=== PATIENT | male | born 1950 | race Caucasian/White ===

== ENCOUNTER 2017-02-18 20:54 | Inpatient (IN) | payer OTHER, MEDICAID, MEDICARE ==
[~2017-02-18] VITALS: Ht 188 cm; Wt 101.4 kg
[~2017-02-18 20:54] MED LIST: CREON24 PO; LEVEMIR SQ; LISI10TA3 PO; METO25TA3 PO; NOVOLOGP2 SQ; PANT40TA3 PO; REST15CA PO
[2017-02-18 21:00] VITALS: BP 145/75; PULSE 108; RESP 18; TEMP 98.5
[2017-02-18 21:30] VITALS: BP 146/61; PULSE 104; RESP 18; O2SAT 98
[2017-02-18 22:05] VITALS: BP 143/51; PULSE 90; RESP 16; O2SAT 96
--- NOTE | 2017-02-18 22:29 | RADHPO ---
EXAM DATE/TIME: 02/18/2017 22:16 [facility] COMPARISON: CHEST SINGLE AP, October 25, 2016, 8:28. INDICATIONS : Fever. Short of breath. MEDICAL HISTORY : Diabetes mellitus type II. SURGICAL HISTORY : None. ENCOUNTER: Initial ACUITY: 1 day PAIN SCORE: Non-responsive. LOCATION: Bilateral chest FINDINGS: A single view of the chest demonstrates the lungs to be symmetrically aerated without evidence of mas s, infiltrate or effusion. The cardiomediastinal contours are unremarkable. Osseous structures are intact. CONCLUSION: No acute disease. Elvin Singleton MD on February 18, 2017 at 22:27 Board Certified Radiologist. This report was verified electronically.
[2017-02-18 22:37] LABS: BLOOD GAS BASE EXCESS 3.8 mmol/L (-2-2); BLOOD GAS CARBOXYHEMOGLOBIN 1.8 % (0-4); BLOOD GAS HCO3 27 mmol/L (22-26); BLOOD GAS METHEMOGLOBIN 1.1 % (0-2); BLOOD GAS O2 HGB SATURATION 93 % (90-100); BLOOD GAS OXYGEN CONTENT 17.2 Vol % (12.0-20.0); BLOOD GAS PCO2 39 mmHG (38-42); BLOOD GAS PO2 72 mmHG (61-120); BLOOD GAS TOTAL HGB 13.2 G/DL (12.0-16.0); CRITICAL VALUE NO; DRAW SITE RT RADIAL; FIO2 21 %; NUMBER OF ARTERIAL PUNCTURES 1; STAT YES; TEMP CORR TO 98.6; ULNAR PULSE Y
--- NOTE | 2017-02-18 22:45 | PD ---
HPI Chief Complaint: Altered Mental Status Time Seen by Provider: 22:06 Travel History International Travel<30 days: No Contact w/Intl Traveler<30days: No Traveled to known affect area: No History of Present Illness HPI The patient is a 66-year-old male with a history of insulin-dependent diabetes mellitus, neuropathy, arthritis who was found in a recliner laying in his yard where he lives alone at home. He had apparently been in this recliner for 3 days and unable to crawl or walk or call for help. The patient was confused and lethargic. He denies any trauma, headache or loss of consciousness or fall. He had a similar episode in September of last year. He has a history of chronic diarrhea and has a colostomy bag. The colostomy bag was off and the patient caked with feces. He denies any chest pain, cough, fever or chills. His Accu-Chek was 382. PFSH Past Medical History Arthritis: Yes Blood Disorders: No Anxiety: No Depression: No Heart Rhythm Problems: Yes (PT IN AFIB AT ADMIT) Cancer: No Cardiovascular Problems: No (PT DENIES HX AFIB) High Cholesterol: No Cerebrovascular Accident: No Diabetes: Yes Diminished Hearing: No Endocrine: Yes Genitourinary: No Hypertension: Yes Immune Disorder: No Musculoskeletal: Yes (ARTHRITIS) Neurologic: Yes (NEUROPATHY BILAT LE) Psychiatric: No Reproductive: No Respiratory: No Immunizations Current: No Migraines: No Seizures: No Thyroid Disease: No Past Surgical History Abdominal Surgery: No AICD: No Cardiac Surgery: No Ear Surgery: No Endocrine Surgery: No Eye Surgery: No Genitourinary Surgery: No Gynecologic Surgery: No Joint Replacement: No Oral Surgery: No Pacemaker: No Thoracic Surgery: No Tonsillectomy: Yes Other Surgery: Yes Social History Alcohol Use: No Tobacco Use: No Substance Use: No Allergies-Medications (Allergen,Severity, Reaction): Coded Allergies: Flu Vaccine (Verified Allergy, Severe, Anaphylaxis, 02/19/17) Reported Meds & Prescriptions Reported Meds & Active Scripts Active Novolog Inj (Insulin Aspart) 1,000 Unit/10 Ml Vial 1-9 Units SQ ACHS Max dose at bedtime:( )units; sugars less than 70,(0)units; sugars 150-199,(1) unit; sugars 200-249,(3) units; sugars 250-299,(5) units; sugars 300-349,(7) units; sugars greater than 349,(9) units Levemir Inj (Insulin Detemir) 1,000 unit/ 10 ML Vial 12 Units SQ BID 30 Days Restoril (Temazepam) 15 Mg Cap 15 Mg PO HS PRN Pantoprazole (Pantoprazole Sodium) 40 Mg Tab 40 Mg PO DAILY 30 Days Creon (Amylase/Lipase/Protease) 24,000-76,000-120,000 Units Cap 2 Cap PO TID 30 Days Metoprolol Tartrate 25 Mg Tab 25 Mg PO Q12HR Lisinopril 10 Mg Tab 10 Mg PO DAILY Review of Systems ROS Limitations: Poor Historian Except as stated in HPI: all other systems reviewed are Neg Physical Exam Exam Limitations: Poor Historian Narrative GENERAL: The patient is confused and thinks he is at [facility] in [facility]. He will answer questions quickly and usually appropriately. Except for a pulse rate of 109 the vital signs are normal. The patient is moderately to severely dehydrated. He smells strongly of feces. I cannot smell acetone on his breath. SKIN: Focused skin assessment warm/dry. The skin is macerated over the scrotum , back, posterior thighs. The right foot has several chronic ulcers, one is on the plantar surface and the other the dorsal surface at the base of the great toe. The left ankle has a small ulcer that appears chronic HEAD: Atraumatic. Normocephalic. EYES: Pupils equal and round. No scleral icterus. No injection or drainage. ENT: No nasal bleeding or discharge. Mucous membranes pink and moist. NECK: Trachea midline. No JVD. CARDIOVASCULAR: Regular rate and rhythm. No murmur appreciated. RESPIRATORY: No accessory muscle use. Clear to auscultation. Breath sounds equal bilaterally. GASTROINTESTINAL: Abdomen soft, non-tender, nondistended. Hepatic and splenic margins not palpable. MUSCULOSKELETAL: No obvious deformities. No clubbing. No cyanosis. There is 3 + pitting edema on both lower extremities as well as the scrotum. NEUROLOGICAL: Awake and alert. No obvious cranial nerve deficits. Motor grossly within normal limits. Normal speech. PSYCHIATRIC: Appropriate mood and affect; insight and judgment normal. Data Data Last Documented VS Vital Signs Date Time Temp Pulse Resp B/P Pulse Ox O2 Delivery O2 Flow Rate FiO2 02/18/17 23:50 96 16 144/69 Room Air 02/18/17 23:00 96 02/18/17 21:00 98.5 Orders Complete Blood Count With Diff (02/18/17 22:06) Comprehensive Metabolic Panel (02/18/17 22:06) Creatine Kinase (Cpk) (02/18/17 22:06) Troponin I (02/18/17 22:06) Arterial Blood Gas (Abg) (02/18/17 22:06) Blood Culture (02/18/17 22:06) Lipase (02/18/17 22:06) Urinalysis - C+S If Indicated (02/18/17 22:06) Magnesium (Mg) (02/18/17 22:06) Thyroid Stimulating Hormone (02/18/17 22:06) C Diff Toxin Pcr (02/18/17 22:06) Lactic Acid (02/18/17 22:06) Chest, Single Ap (02/18/17 ) Urinary Catheter Insert/Apply (02/18/17 22:06) Giardia Antigen (Stool) (02/18/17 22:06) Enteric Path (Stool) (02/18/17 22:06) B-Type Natriuretic Peptide (02/18/17 22:16) Sodium Chlor 0.9% 1000 Ml Inj (Ns 1000 M (02/18/17 22:30) Ammonia (02/18/17 22:33) Beta Hydroxybutyrate (Acetone) (02/18/17 22:06) Insulin Human Regular Inj (Novolin R Inj (02/18/17 23:00) Insulin Human Regular Inj (Novolin R Inj (02/19/17 00:00) Ct Brain W/O Iv Contrast(Rout) (02/19/17 22:06) Ct Abd/Pel W Iv Contrast(Rout) (02/19/17 22:06) Vancomycin Inj (Vancomycin Inj) (02/19/17 00:15) Piperacil-Tazo 4.5 Gm Premix (Zosyn 4.5 (02/19/17 00:15) Admit To Inpatient (02/19/17 ) Vital Signs (Adult) Q4H (02/19/17 00:09) Activity Oob With Assistance (02/19/17 00:09) Sodium Chloride 0.9% Flush (Ns Flush) (02/19/17 00:15) Sodium Chloride 0.9% Flush (Ns Flush) (02/19/17 09:00) Bisacodyl Supp (Dulcolax Supp) (02/19/17 00:15) Sennosides (Senokot) (02/19/17 00:15) Basic Metabolic Panel (Bmp) (02/20/17 06:00) Complete Blood Count With Diff (02/20/17 06:00) Pt Request For Service (02/19/17 00:09) Case Management Consult (02/19/17 00:09) Heparin Inj (Heparin Inj) (02/19/17 09:00) Scd Bilateral/Knee High KEN.BID (02/19/17 00:09) Naloxone Inj (Narcan Inj) (02/19/17 00:15) Inpatient Certification (02/19/17 ) Intake + Output KEN.QSHIFT (02/19/17 00:09) Admit Order (Ed Use Only) (02/19/17 00:13) Insulin Aspart Supplemtl Scale (Novolog (02/19/17 07:00) Piperacil-Tazo 4.5 Gm Premix (Zosyn 4.5 (02/19/17 08:00) Vancomycin Consult Pharmacy (Vancomycin (02/19/17 00:15) Labs Laboratory Tests Test 02/18/17 02/18/17 02/18/17 22:25 22:35 22:40 Blood Gas Puncture Site RT RADIAL Blood Gas Patient Temperature 98.6 Blood Gas HCO3 27 mmol/L Blood Gas Base Excess 3.8 mmol/L Blood Gas Oxygen Saturation 93 % Arterial Blood pH 7.47 Arterial Blood Partial 39 mmHG Pressure CO2 Arterial Blood Partial 72 mmHG Pressure O2 Arterial Blood Oxygen Content 17.2 Vol % Arterial Blood 1.8 % Carboxyhemoglobin Arterial Blood Methemoglobin 1.1 % Blood Gas Hemoglobin 13.2 G/DL Blood Gas Inspired Oxygen 21 % White Blood Count 24.5 TH/MM3 Red Blood Count 4.79 MIL/MM3 Hemoglobin 13.6 GM/DL Hematocrit 42.4 % Mean Corpuscular Volume 88.5 FL Mean Corpuscular Hemoglobin 28.5 PG Mean Corpuscular Hemoglobin 32.2 % Concent Red Cell Distribution Width 14.1 % Platelet Count 248 TH/MM3 Mean Platelet Volume 9.0 FL Neutrophils (%) (Auto) 87.7 % Lymphocytes (%) (Auto) 3.2 % Monocytes (%) (Auto) 8.0 % Eosinophils (%) (Auto) 0.0 % Basophils (%) (Auto) 1.1 % Neutrophils # (Auto) 21.4 TH/MM3 Lymphocytes # (Auto) 0.8 TH/MM3 Monocytes # (Auto) 2.0 TH/MM3 Eosinophils # (Auto) 0.0 TH/MM3 Basophils # (Auto) 0.3 TH/MM3 CBC Comment AUTO DIFF Differential Total Cells 100 Counted Neutrophils % (Manual) 88 % Band Neutrophils % 4 % Lymphocytes % 3 % Monocytes % 5 % Neutrophils # (Manual) 22.5 TH/MM3 Differential Comment FINAL DIFF MANUAL Platelet Estimate NORMAL Platelet Morphology Comment NORMAL Red Cell Morphology Comment NORMAL Sodium Level 143 MEQ/L Potassium Level 3.6 MEQ/L Chloride Level 104 MEQ/L Carbon Dioxide Level 28.5 MEQ/L Anion Gap 11 MEQ/L Blood Urea Nitrogen 51 MG/DL Creatinine 1.20 MG/DL Estimat Glomerular Filtration 61 ML/MIN Rate Random Glucose 413 MG/DL Calcium Level 9.5 MG/DL Magnesium Level 2.4 MG/DL Total Bilirubin 0.6 MG/DL Aspartate Amino Transf 17 U/L (AST/SGOT) Alanine Aminotransferase 22 U/L (ALT/SGPT) Alkaline Phosphatase 81 U/L Total Creatine Kinase 146 U/L Troponin I LESS THAN 0.02 NG/ML B-Type Natriuretic Peptide 37 PG/ML Total Protein 7.2 GM/DL Albumin 2.2 GM/DL Lipase 55 U/L Thyroid Stimulating Hormone 1.450 uIU/ML 3rd Gen B-Hydroxybutyrate 1.19 MMOL/L Lactic Acid Level 1.8 mmol/L Ammonia 14 MCMOL/L [facility] Medical Decision Making Medical Screen Exam Complete: Yes Emergency Medical Condition: Yes Medical Record Reviewed: Yes Differential Diagnosis Sepsis, encephalopathy, severe dehydration, electrolyte disorder, edema from hypoalbuminemia, edema from congestive heart failure hyperglycemia, hypoglycemia , Tony's gangrene, cellulitis Narrative Course The patient is clinically stable. A CAT scan is been ordered, results are not back yet. The patient is admitted to Dr. Deleon of the [facility] service. Impression: Sepsis, dehydration, electrolyte disorder Procedures Procedure Narrative The patient's penis is retracted into the swollen scrotum making catheterization impossible. Sepsis Criteria SIRS Criteria (2 or more): Heart rate over 90, WBC > 46537, < 4000 or > 10% bands Diagnosis Primary Impression: Dehydration Additional Impressions: Cellulitis, scrotum Hypokalemia Admitting Information Admitting Physician Requests: Admit Dipesh Landin MD Feb 18, 2017 22:45
[2017-02-18] MEDS: SODIUM CHLOR 0.9% 1000 ML INJ 1,000 ML IV SCH ×2 (22:51→23:35)
[2017-02-18 23:00] VITALS: BP 149/84; PULSE 101; RESP 17; O2SAT 96
[2017-02-18] MEDS ORDERED: INSULIN HUMAN REGULAR 1,000 UNITS/10 ML VIAL IV PUSH ONE (23:00)
[2017-02-18 23:01] LABS: AUTOMATED NEUTROPHIL # 21.4 TH/MM3 (1.8-7.7); BASOPHIL # 0.3 TH/MM3 (0-0.2); BASOPHIL % 1.1 % (0.0-2.0); HEMATOCRIT 42.4 % (39.0-51.0); LYMPH % 3.2 % (9.0-44.0); LYMPHOCYTE # 0.8 TH/MM3 (1.0-4.8); MEAN CELL VOLUME 88.5 FL (80.0-100.0); MEAN CORPUSCULAR HEMOGLOBIN 28.5 PG (27.0-34.0); MEAN CORPUSCULAR HGB CONC 32.2 % (32.0-36.0); NEUT % 87.7 % (16.0-70.0); PLATELET COUNT 248 TH/MM3 (150-450); RED BLOOD COUNT 4.79 MIL/MM3 (4.50-5.90); RED CELL DISTRIBUTION WIDTH 14.1 % (11.6-17.2); WHITE BLOOD COUNT 24.5 TH/MM3 (4.0-11.0)
[2017-02-18 23:04] LABS: CHLORIDE 104 MEQ/L (98-107); POTASSIUM 3.6 MEQ/L (3.5-5.1); SODIUM (NA) 143 MEQ/L (136-145)
[2017-02-18 23:05] LABS: HEMO FLAGS AUTO DIFF
[2017-02-18 23:08] LABS: ANION GAP 11 MEQ/L (5-15); BICARBONATE 28.5 MEQ/L (21.0-32.0)
[2017-02-18 23:27] LABS: ALKALINE PHOSPHATASE 81 U/L (45-117); ALT (GPT) 22 U/L (12-78); AST (GOT) 17 U/L (15-37); BLOOD UREA NITROGEN 51 MG/DL (7-18); CREATINE KINASE 146 U/L (39-308); GLOMERULAR FILTRATION RATE 61 ML/MIN (>89); MAGNESIUM 2.4 MG/DL (1.5-2.5); TOTAL BILIRUBIN ADULT 0.6 MG/DL (0.2-1.0)
[2017-02-18 23:36] LABS: BETA-HYDROXYBUTYRATE 1.19 MMOL/L (0.00-0.39)
[2017-02-18 23:47] LABS: BANDS 4 % (0-6); NEUTROPHIL # MANUAL DIFF 22.5 TH/MM3 (1.8-7.7); PLATELET ESTIMATE SMEAR NORMAL (NORMAL); PLATELET MORPHOLOGY NORMAL (NORMAL); POLYS (SEG NEUTROPHILS) 88 % (16-70); SCAN/DIFF FINAL DIFF MANUAL; WBC DIFF SAMPLE 100
[2017-02-18 23:50] VITALS: BP 144/69; PULSE 96; RESP 16
[2017-02-19] VITALS (15 sets, daily range): BP systolic 113–169; BP diastolic 40–84; PULSE 84–106; RESP 16–22; TEMP 98.5–101.3; O2SAT 94–100
[2017-02-19] MEDS ORDERED: INSULIN HUMAN REGULAR 1,000 UNITS/10 ML VIAL IV PUSH ONE
[2017-02-19] MEDS ORDERED: SENNOSIDES 8.6 MG TAB PO PRN ×2 (00:15→15:00)
[2017-02-19] MEDS ORDERED: NALOXONE HCL 0.4 MG/ML AMP IV PRN (00:15)
[2017-02-19] MEDS ORDERED: PIPERACIL-TAZO 4.5 GM PREMIX 100 ML IV ONE (00:15)
[2017-02-19] MEDS ORDERED: BISACODYL 10 MG SUPP RECTAL PRN (00:15)
[2017-02-19] MEDS ORDERED: Vancomycin Consult Pharmacy 1 EA OTHER SCH (00:15)
[2017-02-19] MEDS ORDERED: SODIUM CHLORIDE 0.9% FLUSH 10 ML FLUSH IV FLUSH PRN ×2 (00:15→15:00)
[2017-02-19] MEDS ORDERED: VANCOMYCIN INJ 1,750 MG in SODIUM CHLORID 0.9% 500 ML INJ 500 ML IV ONE (00:15)
[2017-02-19] MEDS ORDERED: IOHEXOL 350 MG/ML 10 ML VIAL (for RAD DIAG) IV ONE (00:44)
--- NOTE | 2017-02-19 01:05 | RADHPO ---
EXAM DATE/TIME: 02/19/2017 00:30 [facility] COMPARISON: No previous studies available for comparison. INDICATIONS : Altered mental status. RADIATION DOSE: 62.09 CTDIvol (mGy) MEDICAL HISTORY : Diabetes mellitus type 2. SURGICAL HISTORY : None. ENCOUNTER: Initial ACUITY: 1 day PAIN SCALE: 0/10 LOCATION: cranial TECHNIQUE: Multiple contiguous axial images were obtained of the head. Using automated exposure control and adj ustment of the mA and/or kV according to patient size, radiation dose was kept as low as reasonably a chievable to obtain optimal diagnostic quality images. FINDINGS: CEREBRUM: The ventricles are normal for age. No evidence of midline shift, mass lesion, hemorrhage or acute in farction. No extra-axial fluid collections are seen. POSTERIOR FOSSA: The cerebellum and brainstem are intact. The 4th ventricle is midline. The cerebellopontine angle i s unremarkable. EXTRACRANIAL: The visualized portion of the orbits is intact. SKULL: The calvaria is intact. No evidence of skull fracture. CONCLUSION: 1. No acute findings. No significant change from September 2016. Jermain Minaya MD on February 19, 2017 at 0:57 Board Certified Radiologist. This report was verified electronically.
--- NOTE | 2017-02-19 01:26 | RADHPO ---
EXAM DATE/TIME: 02/19/2017 00:36 [facility] COMPARISON: CT ABDOMEN & PELVIS W CONTRAST, October 11, 2016, 23:00. INDICATIONS : Abdominal pain. IV CONTRAST: 100 cc Omnipaque 350 (iohexol) IV ORAL CONTRAST: No oral contrast ingested. RADIATION DOSE: 18.58 CTDIvol (mGy) MEDICAL HISTORY : Diabetes mellitus type 2. SURGICAL HISTORY : None. ENCOUNTER: Initial ACUITY: 1 day PAIN SCALE: 5/10 LOCATION: Bilateral Abdomen and pelvis TECHNIQUE: Volumetric scanning of the abdomen and pelvis was performed. Using automated exposure control and ad justment of the mA and/or kV according to patient size, radiation dose was kept as low as reasonably achievable to obtain optimal diagnostic quality images. FINDINGS: Compare September 2016. There is extensive subcutaneous air within the scrotum associated with scrotal wall thickening and bilateral hydroceles. Abnormal locules of air extend to the perineal region ante riorly and extend into the inguinal region bilaterally as well, right greater than left. 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 There is a previous left lower quadrant colostomy. Rectal pouch is distended to about 8.[address] Bladder unremarkable. Lung bases demonstrate minimal atelectasis. No acute findings in the liver, spleen, adrenals, kidneys or pancreas. No free fluid or free intraperitoneal air. CONCLUSION: #1. 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 #2. Left lower quadrant colostomy. Fluid distention of blind-ending rectal pouch to 8.6 cm. Jermain Minaya MD on February 19, 2017 at 1:17 Board Certified Radiologist. This report was verified electronically.
[2017-02-19] MEDS ORDERED: INSULIN ASPART SUPPLEMENTAL SCALE SQ SCH (07:00)
[2017-02-19] MEDS: PIPERACIL-TAZO 4.5 GM PREMIX 100 ML IV SCH ×2 (08:00→16:00)
--- NOTE | 2017-02-19 08:48 | HHI.HP ---
[facility] Primary Care Physician Too Morin MD Admission Diagnosis sepsis, dehydration Diagnoses: (1) Sepsis Diagnosis: Principal (2) Fourniers gangrene Diagnosis: Principal (3) Altered mental status Diagnosis: Principal (4) Leucocytosis Diagnosis: Principal (5) Diabetes type 1, uncontrolled Diagnosis: Principal (6) Acute prerenal azotemia Diagnosis: Principal (7) Atrial fibrillation Diagnosis: Secondary Chief Complaint: Patient sent here by neighbors Travel History International Travel<30 Days: No Contact w/Intl Traveler <30 Da: No Traveled to Known Affected Are: No Sepsis Criteria SIRS Criteria (2 or more): Heart rate over 90, WBC > 68204, < 4000 or > 10% bands Sepsis Criteria (SIRS+source): Infect source susp/known Severe Sepsis (+one): Acute Oliguria/Renal Failure History of Present Illness 66 year-old male with rather complex medical history with atrial fibrillation, diabetes, chronic lower extremity wounds, 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 The patient is unable to give any accurate information due to mentation. Information taken from medical records, nursing staff, documentation. It was indicated by ER documentation that the patient was found in a recliner laying in his yard. He lives at home alone. It was indicated that patient had been in a recliner for 3 days and unable to crawl or walk. It is indicated that the colostomy bag was off the patient and he was reportedly covered in feces. Patient indicates that his neighbors called the hospital and he was brought here for evaluation. Patient critically ill on presentation with significant findings. Workup in emergency department did indicate significant sepsis with leukocytosis, tachycardia, significant lower extremity swelling, scrotal swelling with granulation and cellulitis, altered mentation. CT scan was done of the abdomen and pelvis which was reviewed by Dr. Christensen first thing this morning. 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 Emergent phone call was placed to the on-call urologist. After discussing with the urologist, plans for stat transfer to the main hospital for emergent surgery. Patient has been started on empiric antibiotics include vancomycin, Zosyn. Patient will require ICU admission post surgery for continued management until stabilized. Review of Systems ROS Limitations: Clinical Condition, Altered Mental Status Past Family Social History Past Medical History Information taken from medical records due to patient's mental capacity Diabetes mellitus. 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 Arthritis. Hypertension Atrial fibrillation History of megacolon Past Surgical History Information taken from medical records due to patient's mental capacity Patient had right second and fifth toe amputation, and left second toe amputation. Tonsillectomy. Oral surgery. Colostomy Reported Medications Reported Meds & Active Scripts Active Novolog Inj (Insulin Aspart) 1,000 Unit/10 Ml Vial 1-9 Units SQ ACHS Max dose at bedtime:( )units; sugars less than 70,(0)units; sugars 150-199,(1) unit; sugars 200-249,(3) units; sugars 250-299,(5) units; sugars 300-349,(7) units; sugars greater than 349,(9) units Levemir Inj (Insulin Detemir) 1,000 unit/ 10 ML Vial 12 Units SQ BID 30 Days Restoril (Temazepam) 15 Mg Cap 15 Mg PO HS PRN Pantoprazole (Pantoprazole Sodium) 40 Mg Tab 40 Mg PO DAILY 30 Days Creon (Amylase/Lipase/Protease) 24,000-76,000-120,000 Units Cap 2 Cap PO TID 30 Days Metoprolol Tartrate 25 Mg Tab 25 Mg PO Q12HR Lisinopril 10 Mg Tab 10 Mg PO DAILY Allergies: Coded Allergies: Flu Vaccine (Verified Allergy, Severe, Anaphylaxis, 02/19/17) Family History Unable to obtain secondary to patient's mentation Social History Unable to obtain secondary to patient's mentation Physical Exam Vital Signs Vital Signs Date Time Temp Pulse Resp B/P Pulse Ox O2 Delivery O2 Flow Rate FiO2 02/19/17 05:49 98.9 02/19/17 05:38 89 18 142/60 96 Room Air 02/19/17 05:38 Room Air 02/19/17 02:00 Room Air 02/19/17 02:00 93 16 137/60 94 Room Air 02/19/17 01:05 90 17 149/84 97 Room Air 02/18/17 23:50 96 16 144/69 Room Air 02/18/17 23:00 101 17 149/84 96 Room Air 02/18/17 22:40 Room Air 02/18/17 22:05 90 16 143/51 96 Room Air 02/18/17 21:30 104 18 146/61 98 Room Air 02/18/17 21:10 Room Air 02/18/17 21:00 98.5 108 18 145/75 Physical Exam GENERAL: Well-developed, well-nourished, critically ill patient. Awake but unable to answer questions appropriately HEENT: Head is normocephalic without any lesions or masses noted. Facial features are symmetric. Eyes: Pupils equal round reactive to light. Extraocular muscles are intact. Conjunctivae were clear. Oropharyngeal: Pharynx without any erythema edema. Tongue is midline without deviation. Buccal mucosa is moist without any masses or lesions NECK: Supple without any masses. Trachea midline no deviation. No JVD, no bruits are appreciated CARDIAC: Regular rhythm, regular rate. S1/S2 are heard. No murmurs gallops or rubs. LUNGS: Clear to auscultation bilaterally. No wheeze, rhonchi or rales. No use of accessory muscles on inspiration or expiration. ABDOMEN: Soft, nontender. Nondistended. Bowel sounds heard in all 4 quadrants. No organomegaly or masses. Negative rebound, negative guarding, colostomy noted EXTREMITIES: No edema, pulses are equal bilaterally. No cyanosis or clubbing. Patient does have obvious 2/3+ pain edema noted in the bilateral lower extremities. He does have multiple excoriations noted bilaterally. There is lines noted around his ankles with macerated wounds. Toes are very edematous with rather foul odor. NEUROLOGY: Patient with decreased mental status. Cranial nerves II through XII grossly intact. GENITOURINARY: Patient with massive/extensive swelling of his scrotum with granulation, pain on elevation and movement. Rather foul odor emulating from patient's groin area. No obvious openings, ulcerations or exudates Laboratory Laboratory Tests Test 02/18/17 02/18/17 02/18/17 22:25 22:35 22:40 Blood Gas Puncture Site RT RADIAL Blood Gas Patient Temperature 98.6 Blood Gas HCO3 27 Blood Gas Base Excess 3.8 Blood Gas Oxygen Saturation 93 Arterial Blood pH 7.47 Arterial Blood Partial 39 Pressure CO2 Arterial Blood Partial 72 Pressure O2 Arterial Blood Oxygen Content 17.2 Arterial Blood 1.8 Carboxyhemoglobin Arterial Blood Methemoglobin 1.1 Blood Gas Hemoglobin 13.2 Blood Gas Inspired Oxygen 21 White Blood Count 24.5 Red Blood Count 4.79 Hemoglobin 13.6 Hematocrit 42.4 Mean Corpuscular Volume 88.5 Mean Corpuscular Hemoglobin 28.5 Mean Corpuscular Hemoglobin 32.2 Concent Red Cell Distribution Width 14.1 Platelet Count 248 Mean Platelet Volume 9.0 Neutrophils (%) (Auto) 87.7 Lymphocytes (%) (Auto) 3.2 Monocytes (%) (Auto) 8.0 Eosinophils (%) (Auto) 0.0 Basophils (%) (Auto) 1.1 Neutrophils # (Auto) 21.4 Lymphocytes # (Auto) 0.8 Monocytes # (Auto) 2.0 Eosinophils # (Auto) 0.0 Basophils # (Auto) 0.3 CBC Comment AUTO DIFF Differential Total Cells 100 Counted Neutrophils % (Manual) 88 Band Neutrophils % 4 Lymphocytes % 3 Monocytes % 5 Neutrophils # (Manual) 22.5 Differential Comment FINAL DIFF MANUAL Platelet Estimate NORMAL Platelet Morphology Comment NORMAL Red Cell Morphology Comment NORMAL Sodium Level 143 Potassium Level 3.6 Chloride Level 104 Carbon Dioxide Level 28.5 Anion Gap 11 Blood Urea Nitrogen 51 Creatinine 1.20 Estimat Glomerular Filtration 61 Rate Random Glucose 413 Calcium Level 9.5 Magnesium Level 2.4 Total Bilirubin 0.6 Aspartate Amino Transf 17 (AST/SGOT) Alanine Aminotransferase 22 (ALT/SGPT) Alkaline Phosphatase 81 Total Creatine Kinase 146 Troponin I LESS THAN 0.02 B-Type Natriuretic Peptide 37 Total Protein 7.2 Albumin 2.2 Lipase 55 Thyroid Stimulating Hormone 1.450 3rd Gen B-Hydroxybutyrate 1.19 Lactic Acid Level 1.8 Ammonia 14 Date/Time Procedure Status Source Growth 02/18/17 22:40 Aerobic Blood Culture Received Blood Peripheral Pending 02/18/17 22:40 Anaerobic Blood Culture Received Blood Peripheral Pending Result Diagram: 02/18/[id number]/18/[id number] Imaging Last Impressions Head CT 02/19/172205 Signed Impressions: Service Date/Time: Sunday, February 19, 2017 00:30 - CONCLUSION: 1. No acute findings. No significant change from September 2016. Jermain Minaya MD Abdomen/Pelvis CT 02/19/172205 Signed Impressions: Service Date/Time: Sunday, February 19, 2017 00:36 - CONCLUSION: #1. 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 #2. Left lower quadrant colostomy. Fluid distention of blind-ending rectal pouch to 8.6 cm. Jermain Minaya MD Chest X-Ray 02/18/17 0000 Signed Impressions: Service Date/Time: Saturday, February 18, 2017 22:16 - CONCLUSION: No acute disease. Elvin Singleton MD Septic Shock Reassessment Heart: Irregular Lungs: Clear Skin: Warm, Moist Peripheral Pulses: Bounding Right Radial Bounding Left Radial Capillary Refill: Sluggish, >2 seconds Assessment and Plan Assessment and Plan Sepsis: Patient presented with altered mental status, leukocytosis, tachycardia, Tony's gangrene. Chest x-ray does not indicate any acute abnormality Unable to obtain urine due to significant edema to scrotum. Blood cultures are pending CT scan does indicate significant necrosis, Tony's gangrene Patient started on vancomycin, Zosyn for antibiotic coverage Tony's gangrene Patient started on empirical antibiotics Urologist was contacted urgently and notified of patient's condition Stat transfer to Main hospital for emergent surgery Altered mental status Multifactorial and likely secondary to sepsis, dehydration, uncontrolled diabetes CT scan of the brain does not indicate any acute abnormality Continue monitor mentation Leukocytosis with left shift Secondary to above infection Continue monitor CBC Acute prerenal azotemia BUN/creatinine ratio 42.5 Continue IV fluids Continue monitor renal function Avoid nephrotoxins Diabetes type 1, uncontrolled Beta hydroxybutyrate 1.19, anion gap 11 Accu-Cheks with sliding scale insulin Lower extremity edema with excoriations, macerations, cellulitis of bilateral feet Patient on empirical antibiotics Consult wound care physician for further evaluation and management Atrial fibrillation, rate controlled Continue telemetry Once patient more stable from sepsis, consider restarting metoprolol DVT prevention Subcutaneous heparin Written by Pascual Landin, acting as scribe for Dr. Christensen on 02/19/17 at 08:48. All or portions of this note were transcribed by scribe Pascual Landin. I, Dr. Pascual Christensen personally performed the history, physical exam, and medical decision making; and confirmed the accuracy of the information in the transcribed note. Critical care time of 45 minutes was spent in evaluation of the patient, review of imaging, and coordination of care, including contacting the urologist and arranging transfer to the main hospital for surgery. Authenticated by Dr. Pascual Christensen on 02/19/17 at 09:49. Physician Certification 2 Midnight Certification Type: Admission for Inpatient Services Order for Inpatient Services The services are ordered in accordance with Medicare regulations or non- Medicare payer requirements, as applicable. In the case of services not specified as inpatient-only, they are appropriately provided as inpatient services in accordance with the 2-midnight benchmark. Estimated LOS (days): 5 days is the estimated time the patient will need to remain in the hospital, assuming treatment plan goals are met and no additional complications. Post-Hospital Plan: Not yet determined Problem Qualifiers (1) Sepsis: Qualified Code: A41.9 - Sepsis, due to unspecified organism (2) Altered mental status: Qualified Code: R41.82 - Altered mental status, unspecified altered mental status type (3) Leucocytosis: Qualified Code: D72.829 - Leukocytosis, unspecified type (4) Diabetes type 1, uncontrolled: Qualified Code: E10.8 - Uncontrolled type 1 diabetes mellitus with complication Pascual Landin Feb 19, 2017 08:48 Pascual Christensen MD Feb 19, 2017 09:51
[2017-02-19] MEDS: HEPARIN SODIUM - SQ 10,000 UNITS/ML VIAL SQ SCH ×2 (09:00→21:45)
[2017-02-19] MEDS: SODIUM CHLORIDE 0.9% FLUSH 10 ML FLUSH IV FLUSH SCH ×2 (09:00→21:22)
[2017-02-19 10:27] LABS: APTT (PATIENT) 26.8 SEC (24.3-30.1); INTERNATIONAL NORMALIZED RATIO 1.2 RATIO; PROTHROMBIN TIME - PATIENT 13.4 SEC (9.8-11.6)
[2017-02-19] MEDS ORDERED: LACTATED RINGER'S 1000 ML INJ 1,000 ML IV ONE ×2 (12:00→22:45)
[2017-02-19] MEDS: VANCOMYCIN INJ 1,500 MG in SODIUM CHLORID 0.9% 500 ML INJ 500 ML IV SCH (12:00)
[2017-02-19] MEDS ORDERED: SODIUM CHLORID 0.9% 500 ML INJ 500 ML IV ONE (12:00)
[2017-02-19] MEDS ORDERED: PROPOFOL 200 MG/20 ML AMP IV ONE (12:00)
[2017-02-19] MEDS ORDERED: PHENYLEPH/NS 1000 MCG/10 ML SYR IV ONE (12:00)
[2017-02-19] MEDS ORDERED: NORMOSOL R INJ 1,000 ML IV ONE (12:00)
[2017-02-19] MEDS ORDERED: VANCOMYCIN HCL 1000 MG VIAL OTHER ONE (12:48)
--- NOTE | 2017-02-19 13:24 | PD.OP ---
Operative Report Date of Surgery: Feb 19, 2017 Preoperative Diagnosis: Necrotizing fasciitis/Tony's Gangrene involving scrotum, perineum, bilateral groin regions Postoperative Diagnosis: Same Procedure: Excision and debridement with washout of necrotizing fasciitis of the perineum, scrotum, and bilateral groin region. Anesthesia: KEILA Surgeon: Norbert Cassidy Research Methodologist(s): None Resident Surgeon: None Operation and Findings: 66-year-old male presented to [place] emergency room early this morning. Patient was diagnosed with Tony's gangrene/necrotizing fasciitis. CT scan revealed air in the region of the peroneal area as well as the scrotum and bilateral groin region. There was also tracking along the left buttock region. The patient was brought to the operating room emergently and placed in the dorsal lithotomy position. General endotracheal tube anesthesia was administered. He had received preprocedure antibiotics and was prepped and draped in usual sterile fashion. 15 blade was used to make the opening incision beginning in the scrotal region extending all the way down to the perineum near the rectum. The underlying tissues were into the planes on the patient's left side demonstrated evidence of necrosis. Purulent drainage was noted and cultures were sent. The left-sided perineum was resected until I could define bleeding tissue; working into the left groin region the fascia overlying the gracilis muscle was taken and debrided. All necrotic tissue in this region was debrided. Lateral to the perineum on the left side there was more necrotic tissue and this extended down near the buttock region. This tissue was then cleaned out. Turning my attention to the right aspect of the peroneal area this area was also debrided and up into the right groin section there was areas of necrotic tissue and this was also debrided. The right testicle was intact and was viable. The left testicle did require some debridement and once that was completed good viable tissue was noted. Once all the necrotic tissue was then debrided the area was washed out with antibiotic irrigation solution. Alfredo soaked in antibiotic solution was then packed into the groin with a left testicle being wrapped. The right testicle was still contained within its tunica vaginalis. A 16 Maori Ellis catheter had been inserted at the beginning of the procedure. The patient was stable throughout the entire procedure with blood loss proximate 250 cc. The patient was then transferred to the ICU. He'll need to go back in 48 hours for another washout. Norbert Cassidy DO Feb 19, 2017 13:24
[2017-02-19] MEDS ORDERED: MIDAZOLAM HCL 2 MG/2 ML VIAL ONE (13:42)
[2017-02-19] MEDS ORDERED: fentaNYL CITRATE 250 MCG/5 ML AMP ONE (13:43)
[2017-02-19] MEDS ORDERED: MORPHINE SULFATE 4 MG/ML INJ ONE (13:43)
[2017-02-19 14:02] LABS: AUTOMATED NEUTROPHIL # 13.8 TH/MM3 (1.8-7.7); BASOPHIL # 0.1 TH/MM3 (0-0.2); BASOPHIL % 0.8 % (0.0-2.0); HEMATOCRIT 38.4 % (39.0-51.0); HEMO FLAGS DIFF FINAL; LYMPH % 4.4 % (9.0-44.0); LYMPHOCYTE # 0.7 TH/MM3 (1.0-4.8); MEAN CELL VOLUME 89.1 FL (80.0-100.0); MEAN CORPUSCULAR HEMOGLOBIN 28.3 PG (27.0-34.0); MEAN CORPUSCULAR HGB CONC 31.7 % (32.0-36.0); MONO % 5.3 % (0.0-8.0); NEUT % 89.5 % (16.0-70.0); PLATELET COUNT 200 TH/MM3 (150-450); RED BLOOD COUNT 4.31 MIL/MM3 (4.50-5.90); RED CELL DISTRIBUTION WIDTH 14.6 % (11.6-17.2); WHITE BLOOD COUNT 15.5 TH/MM3 (4.0-11.0)
[2017-02-19 14:28] LABS: POTASSIUM 3.4 MEQ/L (3.5-5.1)
--- NOTE | 2017-02-19 14:35 | RADRPT ---
EXAM DATE/TIME: 02/19/2017 13:50 [facility] COMPARISON: CHEST SINGLE AP, February 18, 2017, 22:16. INDICATIONS : Endotracheal tube placement. MEDICAL HISTORY : None. SURGICAL HISTORY : None. ENCOUNTER: Subsequent ACUITY: 2 days PAIN SCORE: Non-responsive. LOCATION: chest FINDINGS: A single portable frontal view of the chest shows an intra-alveolar infiltrate throughout the white l lashaun with sparing of the apex. This is a new finding. Left lung is clear. Tip of the endotracheal tube 5 cm cephalad to the tashia. No effusions or cardiomegaly. A degenerative spine. CONCLUSION: New right lung infiltrate. Endotracheal tube. Khanh Mata Jr., MD on February 19, 2017 at 14:32 Board Certified Radiologist. This report was verified electronically.
--- NOTE | 2017-02-19 14:37 | PD.CONS ---
[facility] Service Critical Care Medicine Consult Requested By Dr. Cassidy Reason for Consult Critical care management Primary Care Physician Too Morin MD History of Present Illness 66 year-old male. Date of admission 02/19/2017. Date of consultation 02/19/2017. 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 The patient is unable to give any accurate information due to mentation. Information taken from medical records, nursing staff, documentation. It was indicated by ER documentation that the patient was found in a recliner laying in his yard duration up to 3 days and unable to crawl or walk. It is indicated that the colostomy bag was off the patient and he was reportedly covered in feces. He was noted to have a leukocytosis,, elevated blood sugar and altered mental status. CT abdomen status post revealed gas in the soft tissues of the perineum , scrotum and inguinal regions. Thickening of the scrotum noted. CT head showed no acute things. Chest x-ray negative. Urology was consulted today patient was taken back to the OR for debridement Patient has been started on empiric antibiotics include vancomycin, Zosyn. Blood cultures currently no growth to date. Review of Systems ROS Limitations: Intubated Past Family Social History Allergies: Coded Allergies: Flu Vaccine (Verified Allergy, Severe, Anaphylaxis, 02/19/17) Past Medical History Diabetes mellitus with neuropathy Hypertension Dyslipidemia Osteoarthritis Chronic pancreatitis New onset A. 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 Reported Medications Reported Meds & Active Scripts Active Novolog Inj (Insulin Aspart) 1,000 Unit/10 Ml Vial 1-9 Units SQ ACHS Max dose at bedtime:( )units; sugars less than 70,(0)units; sugars 150-199,(1) unit; sugars 200-249,(3) units; sugars 250-299,(5) units; sugars 300-349,(7) units; sugars greater than 349,(9) units Levemir Inj (Insulin Detemir) 1,000 unit/ 10 ML Vial 12 Units SQ BID 30 Days Restoril (Temazepam) 15 Mg Cap 15 Mg PO HS PRN Pantoprazole (Pantoprazole Sodium) 40 Mg Tab 40 Mg PO DAILY 30 Days Creon (Amylase/Lipase/Protease) 24,000-76,000-120,000 Units Cap 2 Cap PO TID 30 Days Metoprolol Tartrate 25 Mg Tab 25 Mg PO Q12HR Lisinopril 10 Mg Tab 10 Mg PO DAILY Active Ordered Medications Reviewed in EMR Family History Positive for diabetes Social History No history alcohol, tobacco or IV drug use Physical Exam Vital Signs Vital Signs Date Time Temp Pulse Resp B/P Pulse Ox O2 Delivery O2 Flow Rate FiO2 02/19/17 13:36 98 50 02/19/17 10:45 97 18 144/70 98 02/19/17 10:30 120 20 149/68 98 02/19/17 10:15 114 18 140/64 98 02/19/17 10:00 115 14 142/62 98 02/19/17 09:45 144 16 126/71 89 02/19/17 09:34 100.6 123 18 126/62 85 02/19/17 08:41 100 16 133/60 93 02/19/17 07:07 100.0 105 16 134/64 94 02/19/17 07:07 105 16 94 02/19/17 05:49 98.9 02/19/17 05:38 89 18 142/60 96 Room Air 02/19/17 05:38 Room Air 02/19/17 02:00 Room Air 02/19/17 02:00 93 16 137/60 94 Room Air 02/19/17 01:05 90 17 149/84 97 Room Air 02/18/17 23:50 96 16 144/69 Room Air 02/18/17 23:00 101 17 149/84 96 Room Air 02/18/17 22:40 Room Air 02/18/17 22:05 90 16 143/51 96 Room Air 02/18/17 21:30 104 18 146/61 98 Room Air 02/18/17 21:10 Room Air 02/18/17 21:00 98.5 108 18 145/75 Physical Exam GENERAL: 66 year old male, critically ill currently orotracheally intubated SKIN: Caudal/posterior Scrotum currently packed and elevated with no active drainage. Maceration of back, posterior thighs bilaterally. Right foot with circumferential ulcer around ankle, ulcerated plantar dorsal aspect around great toe. Left ankle with open ulceration HEAD: Atraumatic. Normocephalic. EYES: Pupils equal and round about 2 mm bilaterally and reactive. No scleral icterus. No injection or drainage. ENT: No nasal bleeding or discharge. Mucous membranes pink and moist. Oropharynx without erythema NECK: Trachea midline. No JVD. CARDIOVASCULAR: Tachycardic, RR. S1, S2. No S4. No murmur RESPIRATORY: No accessory muscle use. Clear to auscultation. Breath sounds equal bilaterally. GASTROINTESTINAL: Abdomen soft, non-tender, nondistended. Left lower quadrant ostomy pink and intact with stool. Periumbilical to suprapubic scarring from prior operation noted. Hypoactive bowel sounds are appreciated MUSCULOSKELETAL: Extremities 2+ lower extremity peripheral edema. No obvious deformities. NEUROLOGICAL: Currently sedated on the ventilator profile. Positive gag. Positive corneal reflex. Withdraws to pain in bilateral upper extremities. Laboratory Laboratory Tests Test 02/18/17 02/18/17 02/18/17 02/19/17 22:25 22:35 22:40 10:03 Blood Gas Puncture Site RT RADIAL Blood Gas Patient Temperature 98.6 Blood Gas HCO3 27 Blood Gas Base Excess 3.8 Blood Gas Oxygen Saturation 93 Arterial Blood pH 7.47 Arterial Blood Partial 39 Pressure CO2 Arterial Blood Partial 72 Pressure O2 Arterial Blood Oxygen Content 17.2 Arterial Blood 1.8 Carboxyhemoglobin Arterial Blood Methemoglobin 1.1 Blood Gas Hemoglobin 13.2 Blood Gas Inspired Oxygen 21 White Blood Count 24.5 Red Blood Count 4.79 Hemoglobin 13.6 Hematocrit 42.4 Mean Corpuscular Volume 88.5 Mean Corpuscular Hemoglobin 28.5 Mean Corpuscular Hemoglobin 32.2 Concent Red Cell Distribution Width 14.1 Platelet Count 248 Mean Platelet Volume 9.0 Neutrophils (%) (Auto) 87.7 Lymphocytes (%) (Auto) 3.2 Monocytes (%) (Auto) 8.0 Eosinophils (%) (Auto) 0.0 Basophils (%) (Auto) 1.1 Neutrophils # (Auto) 21.4 Lymphocytes # (Auto) 0.8 Monocytes # (Auto) 2.0 Eosinophils # (Auto) 0.0 Basophils # (Auto) 0.3 CBC Comment AUTO DIFF Differential Total Cells 100 Counted Neutrophils % (Manual) 88 Band Neutrophils % 4 Lymphocytes % 3 Monocytes % 5 Neutrophils # (Manual) 22.5 Differential Comment FINAL DIFF MANUAL Platelet Estimate NORMAL Platelet Morphology Comment NORMAL Red Cell Morphology Comment NORMAL Sodium Level 143 Potassium Level 3.6 Chloride Level 104 Carbon Dioxide Level 28.5 Anion Gap 11 Blood Urea Nitrogen 51 Creatinine 1.20 Estimat Glomerular Filtration 61 Rate Random Glucose 413 Calcium Level 9.5 Magnesium Level 2.4 Total Bilirubin 0.6 Aspartate Amino Transf 17 (AST/SGOT) Alanine Aminotransferase 22 (ALT/SGPT) Alkaline Phosphatase 81 Total Creatine Kinase 146 Troponin I LESS THAN 0.02 B-Type Natriuretic Peptide 37 Total Protein 7.2 Albumin 2.2 Lipase 55 Thyroid Stimulating Hormone 1.450 3rd Gen B-Hydroxybutyrate 1.19 Lactic Acid Level 1.8 Ammonia 14 Prothrombin Time 13.4 Prothromb Time International 1.2 Ratio Activated Partial 26.8 Thromboplast Time Blood Type A POSITIVE Antibody Screen NEGATIVE Test 02/19/17 02/19/17 02/19/17 10:15 12:06 13:46 Blood Type A POSITIVE Crossmatch Leukocyte-Reduced Red Blood Cells Blood Bank Comment White Blood Count 15.5 Red Blood Count 4.31 Hemoglobin 12.2 Hematocrit 38.4 Mean Corpuscular Volume 89.1 Mean Corpuscular Hemoglobin 28.3 Mean Corpuscular Hemoglobin 31.7 Concent Red Cell Distribution Width 14.6 Platelet Count 200 Mean Platelet Volume 8.3 Neutrophils (%) (Auto) 89.5 Lymphocytes (%) (Auto) 4.4 Monocytes (%) (Auto) 5.3 Eosinophils (%) (Auto) 0.0 Basophils (%) (Auto) 0.8 Neutrophils # (Auto) 13.8 Lymphocytes # (Auto) 0.7 Monocytes # (Auto) 0.8 Eosinophils # (Auto) 0.0 Basophils # (Auto) 0.1 CBC Comment DIFF FINAL Differential Comment Lactic Acid Level 2.2 Date/Time Procedure Status Source Growth 02/19/17 11:36 Gram Stain Received Wound Other Pending 02/19/17 11:36 Wound Culture Received Wound Other Pending 02/19/17 11:36 Fungal Smear Received Wound Other Pending 02/19/17 11:36 Fungal Culture Received Wound Other Pending 02/19/17 11:36 Acid Fast Stain Received Wound Other Pending 02/19/17 11:36 Mycobacterial Culture Received Wound Other Pending 02/18/17 22:40 Aerobic Blood Culture - Preliminary Resulted Blood Peripheral NO GROWTH IN 1 DAY 02/18/17 22:40 Anaerobic Blood Culture - Preliminary Resulted Blood Peripheral NO GROWTH IN 1 DAY Result Diagram: 02/19/17 1346 02/18/175 Imaging Last Impressions Head CT 02/19/172205 Signed Impressions: Service Date/Time: Sunday, February 19, 2017 00:30 - CONCLUSION: 1. No acute findings. No significant change from September 2016. Jermain Minaya MD Abdomen/Pelvis CT 02/19/172205 Signed Impressions: Service Date/Time: Sunday, February 19, 2017 00:36 - CONCLUSION: #1. 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 #2. Left lower quadrant colostomy. Fluid distention of blind-ending rectal pouch to 8.6 cm. Jermain Minaya MD Chest X-Ray 02/18/17 0000 Signed Impressions: Service Date/Time: Saturday, February 18, 2017 22:16 - CONCLUSION: No acute disease. Elvin Singleton MD Assessment and Plan Assessment and Plan Neuro/Psych: Diabetic neuropathy Insomnia Currently on versed/fentanyl drip for sedation/analgesia while intubated Goal RASS -2 Daily sedation vacation Holding home medication Restoril 15 mg night as needed for insomnia CT head 02/18 revealed no acute intracranial findings CV: History of hypertension History dyslipidemia Preop A. fib/no history currently normal sinus rhythm Currently on normal saline at 150 cc an hour Not requiring and hypertensive and/or vasopressors at the present time Holding home medication of metoprolol 25 mg twice a day lisinopril 10 mg daily for hypertension. Resume when clinically indicated Echocardiogram 2013 revealed EF 50-55%. No regional wall motion abnormality. Mildly dilated left atrium TSH within normal limits. Initial troponin negative. 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 Protonix for GI prophylaxis/home medication Colace/as needed Senokot for bowel regimen Ostomy cares Resume Creon 2 tablets 3 times a day : Postop day #0 Excision and debridement with washout of necrotizing fasciitis of the perineum, scrotum, and bilateral groin region secondary to Necrotizing fasciitis/Tony's Gangrene involving scrotum, perineum, bilateral groin regions EBL 250. 900 cc urine output. LR 1900 provided. Plan to return to the OR on Friday for further exploration Endo: Diabetes mellitus Home medications Levemir 12 units twice a day insulin scale insulin. Currently on sliding scale insulin with Accu-Cheks to maintain euglycemia every 4 hours Renal: Monitor urine output Accurate I's and O's Repeat BMP in a.m. Heme: Normocytic anemia Leukocytosis Monitor CBC daily. Follow trends ID: Day #2 vancomycin, clindamycin and Zosyn. Blood cultures 23 02/18 pending Wound culture 02/19 pending FEN: Hypernatremia Hypopotassemia Replace electrolytes per ICU likely protocol MSK: Right second/fifth toe amputation Left second amputation Diabetic foot ulcers Wound care evaluate and treat Access - Utilize peripheral IV. Central and indicated Prophylaxis - GI - Protonix - DVT - SCD/heparin subcutaneous Critical Care: The total critical care time was 55 minutes. Time to perform other separately billable procedures was not included in the critical care time. Code Status Full code Discussed Condition With Dr. Cassidy. Care plan discussed and all questions answered. No family available. Steven Guzman MD Feb 19, 2017 14:37
[2017-02-19] MEDS ORDERED: POTASSIUM PHOSPHATE MONOBASIC 500 MG TAB PO/TUBE PRN (15:00)
[2017-02-19] MEDS ORDERED: PROPOFOL 1000 MG/100 ML INJ 100 ML IV SCH (15:00)
[2017-02-19] MEDS ORDERED: MAGNESIUM SULFATE INJ 2 GM in SODIUM CHLORIDE 0.9% INJ 96 ML IV PRN (15:00)
[2017-02-19] MEDS ORDERED: POTASSIUM CHLOR 20 MEQ PREMIX 100 ML IV PRN (15:00)
[2017-02-19] MEDS ORDERED: MISCELLANEOUS NURSING INFORMATION XX SCH (15:00)
[2017-02-19] MEDS ORDERED: MAGNESIUM OXIDE 400 MG TAB PO PRN (15:00)
[2017-02-19] MEDS ORDERED: POTASSIUM PHOSPHATE MONOBASIC 500 MG TAB PO PRN (15:00)
[2017-02-19] MEDS ORDERED: RESP: ALBUTEROL 2.5 MG/3 ML NEB (PRN) INH (15:00)
[2017-02-19] MEDS ORDERED: POTASSIUM CHLOR 40 MEQ PREMIX 100 ML IV PRN ×2 (15:00)
[2017-02-19] MEDS ORDERED: SODIUM PHOSPHATE INJ 30 MMOL in SODIUM CHLOR 0.9% 250 ML INJ 240 ML IV PRN (15:00)
[2017-02-19] MEDS ORDERED: CHLORHEXIDINE GLUCONATE 2 % 1 PACK (2 CLOTHS) TOP PRN (15:00)
[2017-02-19] MEDS ORDERED: POTASSIUM PHOSPHATE INJ 30 MMOL in SODIUM CHLOR 0.9% 250 ML INJ 250 ML IV PRN (15:00)
[2017-02-19] MEDS ORDERED: MAGNESIUM SULFATE INJ 4 GM in SODIUM CHLORIDE 0.9% INJ 92 ML IV PRN (15:00)
[2017-02-19] MEDS: fentaNYL DRIP 250 ML IV SCH (15:08)
[2017-02-19] MEDS: MIDAZOLAM 100 MG/ML INJ 100 ML IV SCH (15:09)
[2017-02-19] MEDS: SODIUM CHLOR 0.9% 1000 ML INJ 1,000 ML IV SCH (15:30)
[2017-02-19] MEDS ORDERED: DEXTROSE 50% IN WATER 50 ML VIAL(D50) IV PUSH PRN ×2 (15:30→21:30)
[2017-02-19] MEDS ORDERED: GLUCAGON 1 MG/ML VIAL OTHER PRN (15:30)
--- NOTE | 2017-02-19 15:31 | PD.PROCEDR ---
Central Line Procedure REASON FOR PROCEDURE Central venous access PROCEDURE PERFORMED Central line placement: Left IJ CVL CONSENT Informed consent for procedure was not obtained as procedure considered emergently for hemodynamic access with poor peripheral IVs in a severely septic patient. Discussed with my partner who agreed. The risks and benefits of the procedure include but limited to bleeding, clot formation, infection, and even . ANESTHESIA Local injection of 1% Lidocaine DESCRIPTION OF THE PROCEDURE The patient was placed in supine, mild Trendelenburg position. The area was exposed and cleansed with ChloraPrep, times two. Large sterile drape was used to cover the patient, with the site exposed, under sterile conditions including cap, face mask, sterile gown, and sterile gloves. On single attempt, the introducer needle was inserted with negative pressure in syringe and venous flash was obtained. The guide wire was then advanced without any restriction and the needle was removed. The dilator was used without any complications. Using Seldinger technique the triple-lumen catheter was advanced over the guide wire to a depth of 20 centimeters. The guide wire was removed. All ports were aspirated with dark venous blood return and flushed easily with sterile saline. All ports were capped. Antibiotic disc was placed around central line at puncture site. The central line was secured to the skin with two interrupted 2.0 silk sutures. The area was bandaged with sterile see-through central line bandage. RADIOLOGICAL DATA Ultrasound guidance was used to locate left internal jugular vein. Doppler/ color flow was used to confirm venous flow. COMPLICATIONS: No apparent complications ESTIMATED BLOOD LOSS: Less than 1 cc. Steven Guzman MD Feb 19, 2017 15:31
[2017-02-19] MEDS ORDERED: SODIUM CHLORIDE 0.9% FLUSH 10 ML FLUSH IVF PRN (15:45)
[2017-02-19 15:52] LABS: LACTIC ACID GHOST NOT REPORTABLE
[2017-02-19 15:58] LABS: BLOOD GAS BASE EXCESS 0.1 mmol/L (-2-2); BLOOD GAS CARBOXYHEMOGLOBIN 1.3 % (0-4); BLOOD GAS HCO3 25 mmol/L (22-26); BLOOD GAS METHEMOGLOBIN 0.9 % (0-2); BLOOD GAS O2 HGB SATURATION 96 % (90-100); BLOOD GAS OXYGEN CONTENT 17.7 Vol % (12.0-20.0); BLOOD GAS PCO2 42 mmHg (38-42); BLOOD GAS PO2 117 mmHg (61-120); CRITICAL VALUE NO; OXYGEN DEVICE VENTILATOR; TEMP CORR TO 98.6
[2017-02-19 15:59] LABS: DRAW SITE ART LINE; FIO2 50 %; STAT NO; ULNAR PULSE PRESENT; VENT SETTINGS AC/12/550/PEEP+5
[2017-02-19] MEDS: CLINDAMYCIN INJ 900 MG in SODIUM CHLORIDE 0.9% INJ 100 ML IV SCH (16:00)
--- NOTE | 2017-02-19 16:09 | RADRPT ---
EXAM DATE/TIME: 02/19/2017 15:26 [facility] COMPARISON: CHEST SINGLE AP, February 19, 2017, 13:50. INDICATIONS : Post intubation and central line placement. MEDICAL HISTORY : None. SURGICAL HISTORY : None. ENCOUNTER: Subsequent ACUITY: 2 days PAIN SCORE: Non-responsive. LOCATION: Bilateral chest FINDINGS: A single portable frontal view the chest shows a persistent intralobular infiltrate throughout the ri ght lung with relative sparing of the apex. This is unchanged. Left lung is clear. No effusions. Hear t normal size. Tip of the endotracheal tube 5 cm cephalad to the tashia. Left internal jugular vein c entral venous line has been placed with tip at the cavoatrial junction. No pneumothorax. Nasogastric tube has been placed with the tip coursing off the inferior margin of the film. CONCLUSION: 1. Central line in good position without pneumothorax. 2. Unchanged right lung infiltrate. Khanh Mata Jr., MD on February 19, 2017 at 16:07 Board Certified Radiologist. This report was verified electronically.
[2017-02-19] MEDS: RESP: ALBUTEROL 2.5 MG/IPRATROPIUM 0.5 MG NEB (SCH) INH ×2 (17:48→22:17)
[2017-02-19] MEDS: LIPASE/PROTEASE/AMYLASE (24,000/76,000/120,000) CAP PO SCH (18:00)
[2017-02-19] MEDS: ARTIFICIAL TEARS OPTH SOLN 15 ML BTL EACH EYE SCH (18:00)
[2017-02-19] MEDS: INSULIN ASPART SUPPLEMENTAL SCALE SQ SCH ×2 (20:00→21:19)
[2017-02-19] MEDS ORDERED: TERBUTALINE INJ 1 MG/ML AMP SQ PRN (21:00)
[2017-02-19] MEDS ORDERED: NOREPINEPHRINE-DEXTROSE DRIP 250 ML IV SCH (21:00)
[2017-02-19] MEDS ORDERED: SODIUM CHLOR 0.9% 1000 ML INJ 1,000 ML IV ONE ×2 (21:00→21:45)
[2017-02-19] MEDS ORDERED: NOREPINEPHRINE INJ 4 MG in SODIUM CHLOR 0.9% 250 ML INJ 246 ML IV SCH (21:00)
[2017-02-19] MEDS ORDERED: SODIUM CHLORIDE 0.9% FLUSH 10 ML FLUSH IV FLUSH SCH (21:00)
[2017-02-19] MEDS ORDERED: MISC INFORMATION XX ONE (21:30)
[2017-02-19] MEDS ORDERED: INSULIN REGULAR (IV INFUSION) 100 UNITS in SODIUM CHLORIDE 0.9% INJ 99 ML IV SCH (21:30)
[2017-02-19] MEDS: ACETAMINOPHEN 325 MG TAB PO PRN (21:38)
[2017-02-19] MEDS: DOCUSATE SODIUM 100 MG CAP PO SCH (21:39)
[2017-02-20] VITALS (18 sets, daily range): BP systolic 90–138; BP diastolic 42–55; PULSE 68–98; RESP 16–23; TEMP 97.6–101; O2SAT 40–100
[2017-02-20] MEDS: VANCOMYCIN INJ 1,500 MG in SODIUM CHLORID 0.9% 500 ML INJ 500 ML IV SCH ×2 (00:05→12:00)
[2017-02-20] MEDS: CLINDAMYCIN INJ 900 MG in SODIUM CHLORIDE 0.9% INJ 100 ML IV SCH ×3 (00:05→16:00)
[2017-02-20] MEDS: PIPERACIL-TAZO 4.5 GM PREMIX 100 ML IV SCH ×3 (00:06→16:00)
[2017-02-20 03:12] LABS: AUTOMATED NEUTROPHIL # 26.4 TH/MM3 (1.8-7.7); BASOPHIL # 0.1 TH/MM3 (0-0.2); BASOPHIL % 0.4 % (0.0-2.0); HEMATOCRIT 35.5 % (39.0-51.0); LYMPH % 5.2 % (9.0-44.0); LYMPHOCYTE # 1.6 TH/MM3 (1.0-4.8); MEAN CELL VOLUME 88.4 FL (80.0-100.0); MEAN CORPUSCULAR HEMOGLOBIN 29.3 PG (27.0-34.0); MEAN CORPUSCULAR HGB CONC 33.2 % (32.0-36.0); MONO % 8.1 % (0.0-8.0); NEUT % 86.3 % (16.0-70.0); PLATELET COUNT 291 TH/MM3 (150-450); RED BLOOD COUNT 4.01 MIL/MM3 (4.50-5.90); RED CELL DISTRIBUTION WIDTH 14.8 % (11.6-17.2); WHITE BLOOD COUNT 30.6 TH/MM3 (4.0-11.0)
[2017-02-20 03:18] LABS: HEMO FLAGS AUTO DIFF
[2017-02-20] MEDS: SODIUM CHLOR 0.9% 1000 ML INJ 1,000 ML IV SCH (03:25)
[2017-02-20 03:41] LABS: BICARBONATE 27.8 MEQ/L (21.0-32.0); MAGNESIUM 1.8 MG/DL (1.5-2.5); POTASSIUM 3.5 MEQ/L (3.5-5.1)
[2017-02-20 03:43] LABS: INDIRECT BILIRUBIN 0.4 MG/DL (0.0-0.8); TOTAL BILIRUBIN ADULT 1.7 MG/DL (0.2-1.0)
[2017-02-20 03:44] LABS: BANDS 21 % (0-6); MYELOCYTES 2 % (0-0); NEUTROPHIL # MANUAL DIFF 25.1 TH/MM3 (1.8-7.7); POLYS (SEG NEUTROPHILS) 59 % (16-70); WBC DIFF SAMPLE 100
[2017-02-20 03:45] LABS: SCAN/DIFF FINAL DIFF MANUAL
[2017-02-20 03:46] LABS: DOHLE BODIES PRESENT (NONE SEEN); PLATELET ESTIMATE SMEAR NORMAL (NORMAL); PLATELET MORPHOLOGY NORMAL (NORMAL)
[2017-02-20] MEDS: RESP: ALBUTEROL 2.5 MG/IPRATROPIUM 0.5 MG NEB (SCH) INH ×4 (03:51→20:11)
--- NOTE | 2017-02-20 03:51 | RADRPT ---
EXAM DATE/TIME: 02/20/2017 02:31 [facility] COMPARISON: CHEST SINGLE AP, February 19, 2017, 15:26. INDICATIONS : Respiratory distress. MEDICAL HISTORY : Diabetes mellitus type 2. SURGICAL HISTORY : None. ENCOUNTER: Subsequent ACUITY: 3 days PAIN SCORE: Non-responsive. LOCATION: Bilateral chest FINDINGS: A single view of the chest demonstrates endotracheal tube in satisfactory position. NG tip in stomach . Left central line in superior vena cava. There is right perihilar airspace consolidation. No effusi on. No pneumothorax. CONCLUSION: 1. Support apparatus in satisfactory position. Stable to slight improvement in right lung airspace di sease since February 19. Jermain Minaya MD on February 20, 2017 at 3:48 Board Certified Radiologist. This report was verified electronically.
[2017-02-20] MEDS: CHLORHEXIDINE GLUCONATE 2 % 1 PACK (2 CLOTHS) TOP SCH (04:00)
[2017-02-20] MEDS ORDERED: MAGNESIUM SULFATE INJ 4 GM in SODIUM CHLORIDE 0.9% INJ 92 ML IV PRN (07:15)
[2017-02-20] MEDS ORDERED: DEXTROSE 50% IN WATER 50 ML VIAL(D50) IV PUSH PRN ×2 (07:15→18:45)
[2017-02-20] MEDS ORDERED: INSULIN REGULAR (IV INFUSION) 100 UNITS in SODIUM CHLORIDE 0.9% INJ 99 ML IV SCH (07:15)
[2017-02-20] MEDS ORDERED: SODIUM PHOSPHATE INJ 30 MMOL in SODIUM CHLOR 0.9% 250 ML INJ 240 ML IV PRN (07:15)
[2017-02-20] MEDS ORDERED: POTASSIUM PHOSPHATE INJ 30 MMOL in SODIUM CHLOR 0.9% 250 ML INJ 250 ML IV PRN (07:15)
[2017-02-20] MEDS ORDERED: MISC INFORMATION XX ONE (07:15)
[2017-02-20] MEDS ORDERED: POTASSIUM PHOSPHATE MONOBASIC 500 MG TAB PO/TUBE PRN (07:15)
[2017-02-20] MEDS ORDERED: POTASSIUM CHLOR 20 MEQ PREMIX 100 ML IV PRN ×2 (07:15)
[2017-02-20] MEDS ORDERED: POTASSIUM CHLOR 40 MEQ PREMIX 100 ML IV PRN ×2 (07:15)
[2017-02-20] MEDS ORDERED: MAGNESIUM OXIDE 400 MG TAB PO PRN (07:15)
[2017-02-20] MEDS ORDERED: MAGNESIUM SULFATE INJ 2 GM in SODIUM CHLORIDE 0.9% INJ 96 ML IV PRN (07:15)
[2017-02-20] MEDS ORDERED: POTASSIUM PHOSPHATE MONOBASIC 500 MG TAB PO PRN (07:15)
--- NOTE | 2017-02-20 07:19 | HHI.CCPN ---
Subjective Remarks/Hospital Course 66 year-old male. Date of admission 02/19/2017. Date of consultation 02/19/2017. 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 The patient is unable to give any accurate information due to mentation. Information taken from medical records, nursing staff, documentation. It was indicated by ER documentation that the patient was found in a recliner laying in his yard duration up to 3 days and unable to crawl or walk. It is indicated that the colostomy bag was off the patient and he was reportedly covered in feces. He was noted to have a leukocytosis,, elevated blood sugar and altered mental status. CT abdomen status post revealed gas in the soft tissues of the perineum , scrotum and inguinal regions. Thickening of the scrotum noted. CT head showed no acute things. Chest x-ray negative. Urology was consulted today patient was taken back to the OR for debridement Patient has been started on empiric antibiotics include vancomycin, Zosyn. Blood cultures currently no growth to date. Subjective 02/20: Tmax 101.3. Currently 100.3. Adequate urine output overnight 1500 cc. White Blood cell count increased to 30,000 overnight. On norepinephrine @ 2 micro-grams per minute to maintain MAP Objective Vital Signs Date Time Temp Pulse Resp B/P Pulse Ox O2 Delivery O2 Flow Rate FiO2 02/20/17 06:00 88 02/20/17 04:00 40 02/20/17 04:00 138/50 02/20/17 04:00 100.3 23 100 02/19/17 14:15 Mechanical Ventilator 02/19/17 09:34 4 Intake and Output 02/19/17 02/19/17 02/20/17 08:00 16:00 00:00 Intake Total 2600 ml 1900 ml 2857 ml Output Total 1150 ml 225 ml Balance 2600 ml 750 ml 2632 ml Result Diagram: 02/20/17 0305 02/20/17 0305 Other Results Microbiology Date/Time Procedure Status Source Growth 02/19/17 11:36 Gram Stain Received Wound Other Pending 02/19/17 11:36 Wound Culture Received Wound Other Pending 02/19/17 11:36 Fungal Smear Received Wound Other Pending 02/19/17 11:36 Fungal Culture Received Wound Other Pending 02/19/17 11:36 Acid Fast Stain Received Wound Other Pending 02/19/17 11:36 Mycobacterial Culture Received Wound Other Pending 02/18/17 22:40 Aerobic Blood Culture - Preliminary Resulted Blood Peripheral NO GROWTH IN 1 DAY 02/18/17 22:40 Anaerobic Blood Culture - Preliminary Resulted Blood Peripheral NO GROWTH IN 1 DAY Imaging Last Impressions Chest X-Ray 02/20/17 0000 Signed Impressions: Service Date/Time: January 02:31 - CONCLUSION: 1. Support apparatus in satisfactory position. Stable to slight improvement in right lung airspace disease since February 19. Jermain Minaya MD Head CT 02/19/172205 Signed Impressions: Service Date/Time: Sunday, February 19, 2017 00:30 - CONCLUSION: 1. No acute findings. No significant change from September 2016. Jermain Minaya MD Abdomen/Pelvis CT 02/19/172205 Signed Impressions: Service Date/Time: Sunday, February 19, 2017 00:36 - CONCLUSION: #1. 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 #2. Left lower quadrant colostomy. Fluid distention of blind-ending rectal pouch to 8.6 cm. Jermain Minaya MD Objective Remarks GENERAL: 66 year old male, critically ill currently orotracheally intubated SKIN: Caudal/posterior Scrotum currently packed and elevated with no active drainage. Emaceration of back, posterior thighs bilaterally. Right foot with circumferential ulcer around ankle, ulcerated plantar dorsal aspect around great toe. Left ankle with open ulceration HEAD: Atraumatic. Normocephalic. EYES: Pupils equal and round about 2 mm bilaterally and reactive. No scleral icterus. No injection or drainage. ENT: No nasal bleeding or discharge. Mucous membranes pink and moist. Oropharynx without erythema NECK: Trachea midline. No JVD. CARDIOVASCULAR: RRR. S1, S2. No S4. No murmur RESPIRATORY: No accessory muscle use. Clear to auscultation. Breath sounds equal bilaterally. GASTROINTESTINAL: Abdomen soft, non-tender, nondistended. Left lower quadrant ostomy pink and intact with stool. Periumbilical to suprapubic scarring from prior operation noted. Hypoactive bowel sounds are appreciated MUSCULOSKELETAL: Extremities 2+ lower extremity peripheral edema. No obvious deformities. NEUROLOGICAL: Currently sedated on the ventilator on fentanyl drip. Positive gag. Positive corneal reflex. Withdraws to pain in bilateral upper extremities. Urinary Catheter: Yes Assessment to: Continue Ellis insert reason: Prolonged Immobilization Vascular Central Line Catheter: Yes Assessment to: Continue Date of Insertion: Feb 19, 2017 Line: Central Venous Catheter Side: Left Location: Internal, Jugular A/P Assessment and Plan Neuro/Psych: Diabetic neuropathy Insomnia Currently on versed drip (on hold currently)/fentanyl drip at 100 grams an hour for sedation/analgesia while intubated Goal RASS -2 Daily sedation vacation Holding home medication Restoril 15 mg night as needed for insomnia CT head 02/18 revealed no acute intracranial findings CV: History of hypertension History dyslipidemia Preop A. fib/no history currently normal sinus rhythm Currently on LR 125 cc an hour Currently on norepinephrine at 2 mcg/m to maintain MAP greater than 65 Holding home medication of metoprolol 25 mg twice a day lisinopril 10 mg daily for hypertension. Resume when clinically indicated Echocardiogram 2013 revealed EF 50-55%. No regional wall motion abnormality. Mildly dilated left atrium TSH within normal limits. Initial troponin negative. 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 Protonix for GI prophylaxis/home medication Colace/as needed Senokot for bowel regimen Ostomy cares Resume Creon 2 tablets 3 times a day If able we'll start Glucerna 1.5 goal 55 cc an hour : Postop day #1 Excision and debridement with washout of necrotizing fasciitis of the perineum, scrotum, and bilateral groin region secondary to Necrotizing fasciitis/Tony's Gangrene involving scrotum, perineum, bilateral groin regions EBL 250. 900 cc urine output. LR 1900 provided. Plan to return to the OR on Friday for further exploration Dr. Cassidy/urology following Endo: Diabetes mellitus Home medications Levemir 12 units twice a day insulin scale insulin. Currently on insulin drip algorithm #1 to maintain euglycemia. Currently 1.5 units an hour Renal: Acute kidney injury Monitor urine output Accurate I's and O's Repeat BMP in a.m. Heme: Normocytic anemia Leukocytosis Monitor CBC daily. Follow trends ID: Day #2 vancomycin, clindamycin and Zosyn. We'll consult infectious disease for antibiotic coverage Blood cultures 2 02/18 pending Wound culture 02/19 pending FEN: Hypernatremia Hypokalemia Replace electrolytes per ICU likely protocol MSK: Right second/fifth toe amputation Left second amputation Diabetic foot ulcers Wound care evaluate and treat Access - Utilize peripheral IV. Central and indicated Prophylaxis - GI - Protonix - DVT - SCD/heparin subcutaneous Critical Care: The total critical care time was 35 minutes. Time to perform other separately billable procedures was not included in the critical care time. Steven Guzman MD Feb 20, 2017 07:19
[2017-02-20] MEDS: LACTATED RINGER'S 1000 ML INJ 1,000 ML IV SCH ×2 (08:37→14:22)
[2017-02-20] MEDS: ARTIFICIAL TEARS OPTH SOLN 15 ML BTL EACH EYE SCH ×3 (08:39→18:00)
[2017-02-20] MEDS: PANTOPRAZOLE SODIUM 40 MG VIAL IV SCH (08:40)
[2017-02-20] MEDS: LIPASE/PROTEASE/AMYLASE (24,000/76,000/120,000) CAP PO SCH ×3 (08:41→18:00)
[2017-02-20] MEDS: SODIUM CHLORIDE 0.9% FLUSH 10 ML FLUSH IVF SCH (08:41)
[2017-02-20] MEDS: SODIUM CHLORIDE 0.9% FLUSH 10 ML FLUSH IV FLUSH SCH ×2 (08:41→20:14)
[2017-02-20] MEDS: DOCUSATE SODIUM 100 MG CAP PO SCH ×2 (08:41→20:14)
[2017-02-20] MEDS: INSULIN DETEMIR 100 UNITS/ML VIAL SQ SCH ×2 (08:42→20:15)
[2017-02-20] MEDS: fentaNYL DRIP 250 ML IV SCH (08:42)
[2017-02-20] MEDS: HEPARIN SODIUM - SQ 10,000 UNITS/ML VIAL SQ SCH ×2 (08:42→20:14)
[2017-02-20] MEDS ORDERED: PHARMACY ORDERED LAB XX ONE (11:45)
[2017-02-20] MEDS: FREE WATER G-TUBE SCH ×2 (12:00→18:00)
--- NOTE | 2017-02-20 13:06 | HHI.PR ---
Subjective Patient symptoms today Pt seen and examined. Intubated and sedated. Objective Vital Signs Vital Signs Date Time Temp Pulse Resp B/P Pulse Ox O2 Delivery O2 Flow Rate FiO2 02/20/17 12:34 40 40 02/20/17 12:00 98.3 78 18 100 121/43 02/20/17 12:00 40 02/20/17 12:00 78 121/43 02/20/17 12:00 78 02/20/17 10:00 91 02/20/17 08:45 98 40 02/20/17 08:00 40 02/20/17 08:00 97.9 88 17 100 135/42 02/20/17 08:00 88 02/20/17 08:00 88 135/42 02/20/17 06:00 88 02/20/17 04:00 82 02/20/17 04:00 40 02/20/17 04:00 82 138/50 02/20/17 04:00 100.3 82 23 100 138/50 02/20/17 03:47 99 40 02/20/17 02:00 83 02/20/17 01:26 100 40 02/20/17 00:00 84 02/20/17 00:00 40 02/20/17 00:00 80 110/48 02/20/17 00:00 101.0 80 20 100 110/48 02/19/17 22:38 20 02/19/17 22:17 100 40 02/19/17 22:00 84 121/44 02/19/17 22:00 84 02/19/17 20:00 101.3 93 22 100 113/40 02/19/17 20:00 93 02/19/17 18:00 87 02/19/17 17:49 100 40 02/19/17 16:00 85 02/19/17 16:00 50 02/19/17 16:00 98.5 85 16 100 138/47 02/19/17 15:00 94 02/19/17 14:45 50 02/19/17 14:45 106 02/19/17 14:45 98.8 106 21 169/55 99 135/55 02/19/17 14:15 97 12 144/73 97 Mechanical Ventilator 50 02/19/17 14:00 87 12 139/64 96 Mechanical Ventilator 50 02/19/17 13:45 99 12 120/54 96 Mechanical Ventilator 50 02/19/17 13:36 98 50 02/19/17 13:32 97.6 97 12 92/34 96 Mechanical Ventilator 50 02/19/17 13:32 50 Intake & Output 02/20/17 02/20/17 07:00 19:00 Intake Total 5021 ml Output Total 600 ml Balance 4421 ml Intake IV Total 5021 ml Output Urine Total 600 ml Result Diagram: 02/20/17 0305 02/20/17 0305 Imaging Last 24 hours Impressions Chest X-Ray 02/20/17 0000 Signed Impressions: Service Date/Time: January 02:31 - CONCLUSION: 1. Support apparatus in satisfactory position. Stable to slight improvement in right lung airspace disease since February 19. Jermain Minaya MD Head CT 02/19/172205 Signed Impressions: Service Date/Time: Sunday, February 19, 2017 00:30 - CONCLUSION: 1. No acute findings. No significant change from September 2016. Jermain Minaya MD Abdomen/Pelvis CT 02/19/172205 Signed Impressions: Service Date/Time: Sunday, February 19, 2017 00:36 - CONCLUSION: #1. 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 #2. Left lower quadrant colostomy. Fluid distention of blind-ending rectal pouch to 8.6 cm. Jermain Minaya MD Objective Remarks Abd:soft,nt,nd Wound: dressing intact and reinforced Ellis: urine clear Medications and IVs Current Medications Medications (Trade) Dose Ordered Sig/Jeremias Route Start Time Stop Time Status Last Admin (NS Flush) 2 ml UNSCH PRN IV FLUSH 02/19/17 00:15 (NS Flush) 2 ml BID IV FLUSH 02/19/17 09:00 02/20/17 08:41 (Dulcolax Supp) 10 mg DAILY PRN RECTAL 02/19/17 00:15 (Senokot) 17.2 mg Q12H PRN PO 02/19/17 00:15 (Heparin Inj) 5,000 units Q12HR SQ 02/19/17 09:00 02/20/17 08:42 Naloxone HCl 0.4 mg 0.4 mg UNSCH PRN IV 02/19/17 00:15 Piperacillin Sod/ Tazobactam Sod 100 ml @ 200 mls/hr Q8H IV 02/19/17 08:00 02/20/17 08:38 Pharmacy Profile Note 0 ml @ 0 mls/hr UNSCH OTHER 02/19/17 00:15 Vancomycin HCl 1500 mg/Sodium Chloride 515 ml @ 250 mls/hr Q12H IV 02/19/17 12:00 02/20/17 00:05 (Cleocin Inj/NS Inj) 106 ml @ 212 mls/hr Q8H IV 02/19/17 16:00 02/20/17 08:39 (Tylenol) 650 mg Q6H PRN PO 02/19/17 15:00 02/19/17 21:38 (Protonix Inj) 40 mg DAILY IV 02/20/17 09:00 02/20/17 08:40 (Tears Naturale Opth Soln) 1 drop TID EACH EYE 02/19/17 18:00 (Zofran Inj) 4 mg Q6H PRN IV 02/19/17 15:00 (Colace) 100 mg BID PO 02/19/17 21:00 02/19/17 21:39 Miscellaneous Information 1 Q361D XX 02/19/17 15:00 02/19/17 15:00 (Chlorhexidine 2% Cloth) 3 pack Taper DAILY@04 TOP 02/20/17 04:00 02/16/18 03:59 02/20/17 04:00 Chlorhexidine Gluconate 3 pack 3 pack UNSCH PRN TOP 02/19/17 15:00 Fentanyl Citrate 250 ml @ 0 mls/hr TITRATE IV 02/19/17 15:00 02/20/17 08:42 Potassium Chloride 100 ml @ 50 mls/hr Q2H PRN IV 02/19/17 15:00 Potassium Chloride 100 ml @ 50 mls/hr Q2H PRN IV 02/19/17 15:00 Potassium Chloride 100 ml @ 25 mls/hr UNSCH PRN IV 02/19/17 15:00 Potassium Chloride 100 ml @ 50 mls/hr Q2H PRN IV 02/19/17 15:00 (Magnesium Sulfate Inj/NS Inj) 100 ml @ 50 mls/hr UNSCH PRN IV 02/19/17 15:00 Magnesium Oxide 800 mg 800 mg UNSCH PRN PO 02/19/17 15:00 (Magnesium Sulfate Inj/NS Inj) 100 ml @ 50 mls/hr UNSCH PRN IV 02/19/17 15:00 Potassium Phosphate 2000 mg 2,000 mg Q4H PRN PO 02/19/17 15:00 (Sodium Phosphate Inj/NS 250 ml Inj) 250 ml @ 42 mls/hr UNSCH PRN IV 02/19/17 15:00 Potassium Phosphate 2000 mg 2,000 mg UNSCH PRN PO/TUBE 02/19/17 15:00 Potassium Phosphate 30 mmol/ Sodium Chloride 260 ml @ 42 mls/hr UNSCH PRN IV 02/19/17 15:00 (Versed Inj) 100 ml @ 0 mls/hr TITRATE IV 02/19/17 15:00 02/19/17 15:09 (NS Flush) DAILY IVF 02/20/17 09:00 02/20/17 08:41 (NS Flush) UNSCH PRN IVF 02/19/17 15:45 Amylase/Lipase/ Protease 2 cap 2 cap TID PO 02/19/17 18:00 02/20/17 12:59 (Levophed Inj/NS 250 ml Inj) 250 ml @ 0 mls/hr TITRATE IV 02/19/17 21:00 Terbutaline Sulfate 1 mg 1 mg UNSCH PRN SQ 02/19/17 21:00 (Lr 1000 ml Inj) 1,000 ml @ 125 mls/hr Q8H IV 02/20/17 07:15 02/20/17 08:37 Water VOLUME: 200 ML Q6HR G-TUBE 02/20/17 12:00 02/20/17 12:00 (NovoLIN R (IV INFUSION)/NS Inj) 100 ml @ 0 mls/hr TITRATE IV 02/20/17 07:15 (D50w (Vial) Inj) 25 ml UNSCH PRN IV PUSH 02/20/17 07:15 (Levemir Inj) 5 units Q12HR SQ 02/20/17 09:00 02/20/17 08:42 Assessment and Plan Assessment and Plan 66 y.o male with necrotizing fascitis s/p debridement For washout in Norbert Tang DO Feb 20, 2017 13:06
--- NOTE | 2017-02-20 14:27 | MB ---
cc: JOSE BAEZA MD DATE OF CONSULTATION: 02/20/[address] Guzman. REASON FOR CONSULTATION The patient is admitted with Tony's gangrene. Increasing leukocytosis. HISTORY OF PRESENT ILLNESS This is a 66-year-old white male who was admitted to the hospital after being brought to the ED by [facility] because of altered mental status along with severe dehydration. The patient was found in a recliner at home. He reportedly was in the recliner for 3 days and was unable to get up and walk. The patient was noted to have a colostomy. The bag of the colostomy was not in place and he was noted to be covered with feces. He was eventually evaluated and found to have significant swelling at the scrotum and he had 3+ pitting edema involving the lower extremity. A CT scan of the abdomen and pelvis showed gas accumulation in the soft tissue of the perineum, scrotum and inguinal region associated with marked scrotal wall thickening characteristic of necrotizing type of infection. The patient was evaluated by urology and he was taken to surgery and underwent debridement of necrotic tissue and there was also purulent drainage as well. Cultures were sent. The perineum was resected and more necrotic tissue was noted down to the area near the buttock. The culture from the wound is pending. Gram stain showed many white cells. Blood culture from 02/18 has gram-positive cocci in one set. The patient's white blood cell count has climbed after decreasing initially. Current white count is 30.6. His T-max was 101.3 degrees yesterday evening. The patient is currently sedated and unable to give any history. Information is obtained from medical records. PAST MEDICAL HISTORY 1. Diabetes mellitus. 2. Hypertension. 3. Atrial fibrillation. 4. History of megacolon. 5. Arthritis. 6. Tonsillectomy. 7. Colostomy. 8. Oral surgery. 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 ALLERGIES FLOMAX. MEDICATION 1. Vancomycin. 2. Piperacillin/tazobactam. 3. Clindamycin. 4. Potassium. 5. DuoNeb. 6. Tylenol. 7. Creon. 8. Colace. 9. Protonix. 10. Insulin. SOCIAL HISTORY Unable to obtain. REVIEW OF SYSTEMS Unable to obtain. PHYSICAL EXAMINATION GENERAL: This is a well-developed male who is on the ventilator and unresponsive. He is sedated. VITAL SIGNS: Includes temperature 97.9, BP 134/42, respirations per ventilator, heart rate 91. HEENT: The head is atraumatic. Extraocular movements cannot be fully assessed since the patient is sedated on the ventilator. Oropharynx intubated. Moist oral mucosa. NECK: No swelling or adenopathy. LUNGS: Diminished breath sounds throughout. HEART: Irregular rate and rhythm. No murmurs, rubs or gallops. ABDOMEN: Bowel sounds present, soft, no tenderness appreciated. RECTAL: Not performed. : The patient has swelling of the scrotum and dusky purplish appearance of the scrotum. There is surgical packing at the lower aspect of the scrotum and buttock area. SKIN: No rash. The patient has multiple excoriated areas on the leg. 2+ edema of the legs and edema at the thighs as well. NEURO: Unable to assess. PSYCHE: Unable to assess. LABORATORY DATA WBC 30.6, platelets 291, hemoglobin 11.8, 21% bands, 59% neutrophils, creatinine 1.16, BUN 37, sodium 151. Estimated GFR 63, total bilirubin 1.7, AST 14, ALT 15. IMPRESSION 1. Bacteremia and sepsis due to gram-positive cocci in a patient who presented with altered mental status and also leukocytosis and tachycardia and diagnosed to have Tony's gangrene. 2. Tony's gangrene/necrotizing fasciitis of scrotum, perineum and inguinal region. 3. Acute kidney disease. 4. Leukocytosis secondary to infection. RECOMMENDATIONS 1. Continue vancomycin. 2. Continue clindamycin. 3. Continue piperacillin/tazobactam. 4. Monitor blood cultures. 5. Monitor wound cultures. 6. Monitor clinical status. The white blood cell count likely reflects continued infection at the scrotum and perineum. The patient very likely needs further debridement of the areas involved with the infection. Thank you for this consultation. The patient's progress will be monitored. Jose Baeza MD FD/MELANIE /12:45 PM /1:52 PM
--- NOTE | 2017-02-20 15:19 | EKG ---
Date Performed: 02/19/2017 Time Performed: 08:26:52 PTAGE: 66 years EKG: Sinus tachycardia with PAC(s) Since previous tracing, no significant change noted [place] e ECG PREVIOUS TRACING : 10/13/2016 22.35 DOCTOR: Rai Vale Interpretating Date/Time 02/20/2017 15:18:55
--- NOTE | 2017-02-20 16:00 | PD.WOU.CON ---
Patient Intake Chief Complaint Bilateral lower extremity ulcerations Consult Requested by SAUMYA Calix Reason for Consult Evaluation and treatment of bilateral leg wounds Primary Care Physician Too Morin MD History of Present Illness Patient is a 66-year-old male who is sitting unconscious in his recliner chair in his yard outside for today's. 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 He also has open wounds bilateral lower extremities. He has gone to the OR for debridement of his foreign years gangrene and is scheduled for further debridement tomorrow. Coded Allergies: Flu Vaccine (Verified Allergy, Severe, Anaphylaxis, 02/19/17) Preferred Language to Discuss: Tajik Barriers to Learning: Cognitive/Written, Auditory, Cognitive/Verbal Vital Signs Date Time Temp Pulse Resp B/P Pulse Ox O2 Delivery O2 Flow Rate FiO2 02/20/17 14:00 81 02/20/17 12:34 40 40 02/20/17 12:00 98.3 78 18 100 121/43 02/20/17 12:00 40 02/20/17 12:00 78 121/43 02/20/17 12:00 78 02/20/17 10:00 91 02/20/17 08:45 98 40 02/20/17 08:00 40 02/20/17 08:00 97.9 88 17 100 135/42 02/20/17 08:00 88 02/20/17 08:00 88 135/42 02/20/17 06:00 88 02/20/17 04:00 82 02/20/17 04:00 40 02/20/17 04:00 82 138/50 02/20/17 04:00 100.3 82 23 100 138/50 02/20/17 03:47 99 40 02/20/17 02:00 83 02/20/17 01:26 100 40 02/20/17 00:00 84 02/20/17 00:00 40 02/20/17 00:00 80 110/48 02/20/17 00:00 101.0 80 20 100 110/48 02/19/17 22:38 20 02/19/17 22:17 100 40 02/19/17 22:00 84 121/44 02/19/17 22:00 84 02/19/17 20:00 101.3 93 22 100 113/40 02/19/17 20:00 93 02/19/17 18:00 87 02/19/17 17:49 100 40 02/19/17 16:00 85 02/19/17 16:00 50 02/19/17 16:00 98.5 85 16 100 138/47 Pain scale used: 0-10 numeric scale Pain score: 0 Medications Current Medications Sodium Chloride (NS 1000 ml Inj) 1,000 ml @ 2,000 mls/hr Q30M IV Last administered on 02/18/17 23:35; Start 02/18/17 at 22:30; Stop 02/18/17 at 23:29 ; Status DC Insulin Human Regular (NovoLIN R INJ) 10 units ONCE ONCE IV PUSH Last administered on 02/18/17 23:35; Start 02/18/17 at 23:00; Stop 02/18/17 at 23:01 ; Status DC Insulin Human Regular 10 units 10 units ONCE ONCE IV PUSH Last administered on 02/19/17 01:01; Start 02/19/17 at 00:00; Stop 02/19/17 at 00:01; Status DC Vancomycin HCl 1750 mg/Sodium Chloride 517.5 ml @ 258.75 mls/ hr ONCE ONCE IV Last administered on 02/19/17 01:30; Start 02/19/17 at 00:15; Stop 02/19/17 at 02:14; Status DC Piperacillin Sod/ Tazobactam Sod (Zosyn 4.5 Gm Premix) 100 ml @ 200 mls/hr ONCE ONCE IV Last administered on 02/19/17 01:07; Start 02/19/17 at 00:15; Stop 02/19/17 at 00:44; Status DC Sodium Chloride (NS Flush) 2 ml UNSCH PRN IV FLUSH FLUSH AFTER USING IV ACCESS ; Start 02/19/17 at 00:15 Sodium Chloride (NS Flush) 2 ml BID IV FLUSH Last administered on 02/20/17 08: 41; Start 02/19/17 at 09:00 Bisacodyl (Dulcolax Supp) 10 mg DAILY PRN RECTAL CONSTIPATION; Start 02/19/17 at 00:15 Sennosides (Senokot) 17.2 mg Q12H PRN PO CONSTIPATION; Start 02/19/17 at 00:15 Heparin Sodium (Porcine) (Heparin Inj) 5,000 units Q12HR SQ Last administered on 02/20/17 08:42; Start 02/19/17 at 09:00 Naloxone HCl (Narcan Inj) 0.4 mg UNSCH PRN IV SEE LABEL COMMENTS; Start at 00:15 Insulin Aspart 1 1 ACHS SLIDING SCALE SQ Last administered on 02/19/17 06:36 ; Start 02/19/17 at 07:00; Stop 02/19/17 at 14:40; Status DC Piperacillin Sod/ Tazobactam Sod 100 ml @ 200 mls/hr Q8H IV Last administered on 02/20/17 08:38; Start 02/19/17 at 08:00 Pharmacy Profile Note (Vancomycin Consult Pharmacy) 0 ml @ 0 mls/hr UNSCH OTHER ; Start 02/19/17 at 00:15 Iohexol 100 ml 100 ml STK-MED ONCE IV Last administered on 02/19/17 00:44; Start 02/19/17 at 00:44; Stop 02/19/17 at 00:45; Status DC Vancomycin HCl/ Sodium Chloride (Vancomycin Inj/ NS 500 ml Inj) 515 ml @ 250 mls/hr Q12H IV Last administered on 02/20/17 12:00; Start 02/19/17 at 12:00 Miscellaneous Information SPECIFIC LAB TO BE DRAWN:VANCOMYCIN TROUGH DATE TO... ONCE ONCE XX Last administered on 02/20/17 11:45; Start 02/20/17 at 11:45; Stop 02/20/17 at 11:46; Status DC Vancomycin HCl (Vancomycin Inj) 1,000 mg STK-MED ONCE OTHER Last administered on 02/19/17 12:48; Start 02/19/17 at 12:48; Stop 02/19/17 at 13:06; Status DC Midazolam HCl (Versed Inj) 4 mg STK-MED ONCE .ROUTE ; Start 02/19/17 at 13:42; Stop 02/19/17 at 13:43; Status DC Fentanyl Citrate (fentaNYL INJ) 500 mcg STK-MED ONCE .ROUTE ; Start 02/19/17 at 13:43; Stop 02/19/17 at 13:44; Status DC Morphine Sulfate (Morphine Inj) 4 mg STK-MED ONCE .ROUTE ; Start 02/19/17 at 13: 43; Stop 02/19/17 at 13:44; Status DC Insulin Aspart 1 1 Q4HR SQ Last administered on 02/19/17 21:19; Start at 16:00; Stop 02/19/17 at 22:01; Status DC Clindamycin Phosphate 900 mg/ Sodium Chloride 106 ml @ 212 mls/hr Q8H IV Last administered on 02/20/17 08:39; Start 02/19/17 at 16:00 Sodium Chloride (NS 1000 ml Inj) 1,000 ml @ 84 mls/hr [id number] IV Last administered on 02/20/17 03:25; Start 02/19/17 at 15:30; Stop 02/20/17 at 07:05 ; Status DC Sodium Chloride (NS Flush) 2 ml UNSCH PRN IV FLUSH FLUSH AFTER USING IV ACCESS ; Start 02/19/17 at 15:00; Status UNV Sodium Chloride (NS Flush) 2 ml BID IV FLUSH ; Start 02/19/17 at 21:00; Status UNV Acetaminophen (Tylenol) 650 mg Q6H PRN PO PAIN 1-10 AND/OR FEVER >101F Last administered on 02/19/17 21:38; Start 02/19/17 at 15:00 Pantoprazole Sodium (Protonix Inj) 40 mg DAILY IV Last administered on 08:40; Start 02/20/17 at 09:00 Artificial Tears (Tears Naturale Opth Soln) 1 drop TID EACH EYE ; Start at 18:00 Ondansetron HCl (Zofran Inj) 4 mg Q6H PRN IV NAUSEA OR VOMITING; Start at 15:00 Docusate Sodium (Colace) 100 mg BID PO Last administered on 02/19/17 21:39; Start 02/19/17 at 21:00 Sennosides (Senokot) 17.2 mg Q12H PRN PO CONSTIPATION; Start 02/19/17 at 15:00 ; Status UNV Albuterol/ Ipratropium (Duoneb Neb) 1 ampule Q6HR NEB INH Last administered on 02/20/17 08:43; Start 02/19/17 at 16:00 Albuterol Sulfate (Albuterol Neb) 2.5 mg Q2HR NEB PRN INH SOB/WHEEZING; Start 02/19/17 at 15:00 Miscellaneous Information 1 [id number] XX Last administered on 02/19/17 15:00; Start 02/19/17 at 15:00 Chlorhexidine Gluconate (Chlorhexidine 2% Cloth) 3 pack Taper DAILY@04 TOP Last administered on 02/20/17 04:00; Start 02/20/17 at 04:00; Stop 02/16/18 at 03:59 Chlorhexidine Gluconate 3 pack 3 pack UNSCH PRN TOP HYGIENIC CARE; Start at 15:00 Propofol 100 ml @ 0 mls/hr TITRATE IV ; Start 02/19/17 at 15:00; Stop 02/19/17 at 15:01; Status DC Fentanyl Citrate 250 ml @ 0 mls/hr TITRATE IV Last administered on 02/20/17 08 :42; Start 02/19/17 at 15:00 Potassium Chloride 100 ml @ 50 mls/hr Q2H PRN IV For Potassium 2.8 - 3.2 mEq/L ; Start 02/19/17 at 15:00 Potassium Chloride 100 ml @ 50 mls/hr Q2H PRN IV For Potassium 2.8 - 3.2 mEq/L ; Start 02/19/17 at 15:00 Potassium Chloride 100 ml @ 25 mls/hr UNSCH PRN IV For Potassium 3.3 - 3.5 mEq /L; Start 02/19/17 at 15:00 Potassium Chloride 100 ml @ 50 mls/hr Q2H PRN IV For Potassium 3.3 - 3.5 mEq/L ; Start 02/19/17 at 15:00 Magnesium Sulfate/ Sodium Chloride (Magnesium Sulfate Inj/NS Inj) 100 ml @ 50 mls/hr UNSCH PRN IV For Magnesium 0.9 - 1.1 mg/dL; Start 02/19/17 at 15:00 Magnesium Oxide 800 mg 800 mg UNSCH PRN PO For Magnesium 1.2 - 1.6 mg/dL; Start 02/19/17 at 15:00 Magnesium Sulfate/ Sodium Chloride (Magnesium Sulfate Inj/NS Inj) 100 ml @ 50 mls/hr UNSCH PRN IV For Magnesium 1.2 - 1.6 mg/dL; Start 02/19/17 at 15:00 Potassium Phosphate 2000 mg 2,000 mg Q4H PRN PO For Phosphorus < 2.5 mg/dL; Start 02/19/17 at 15:00 Sodium Phosphate/ Sodium Chloride (Sodium Phosphate Inj/NS 250 ml Inj) 250 ml @ 42 mls/hr UNSCH PRN IV For Phosphorus < 2.5 mg/dL; Start 02/19/17 at 15:00 Potassium Phosphate 2000 mg 2,000 mg UNSCH PRN PO/TUBE SEE LABEL COMMENTS; Start 02/19/17 at 15:00 Potassium Phosphate 30 mmol/ Sodium Chloride 260 ml @ 42 mls/hr UNSCH PRN IV SEE LABEL COMMENTS; Start 02/19/17 at 15:00 Midazolam HCl (Versed Inj) 100 ml @ 0 mls/hr TITRATE IV Last administered on 15:09; Start 02/19/17 at 15:00 Dextrose (D50w (Vial) Inj) 25 ml UNSCH PRN IV PUSH HYPOGLYCEMIA - SEE COMMENTS ; Start 02/19/17 at 15:30; Stop 02/19/17 at 22:01; Status DC Glucagon (Glucagon Inj) 1 mg UNSCH PRN OTHER HYPOGLYCEMIA-SEE COMMENTS; Start 02/19/17 at 15:30; Stop 02/19/17 at 22:01; Status DC Sodium Chloride (NS Flush) DAILY IVF Last administered on 02/20/17 08:41; Start 02/20/17 at 09:00 Sodium Chloride (NS Flush) UNSCH PRN IVF SEE PROTOCOL; Start 02/19/17 at 15:45 Amylase/Lipase/ Protease 2 cap 2 cap TID PO Last administered on 02/20/17 12: 59; Start 02/19/17 at 18:00 Sodium Chloride 1,000 ml @ 999 mls/hr BOLUS ONCE IV Last administered on 02/19 21:21; Start 02/19/17 at 21:00; Stop 02/19/17 at 22:00; Status DC Norepinephrine Bitartrate 250 ml @ 0 mls/hr TITRATE IV ; Start 02/19/17 at 21:00 ; Status UNV Norepinephrine Bitartrate/Sodium Chloride (Levophed Inj/NS 250 ml Inj) 250 ml @ 0 mls/hr TITRATE IV ; Start 02/19/17 at 21:00 Terbutaline Sulfate 1 mg 1 mg UNSCH PRN SQ For Extravasation; Start 02/19/17 at 21:00 Insulin Human Regular/Sodium Chloride (NovoLIN R (IV INFUSION)/NS Inj) 100 ml @ 0 mls/hr TITRATE IV Last administered on 02/19/17 22:19; Start 02/19/17 at 21: 30; Stop 02/20/17 at 07:05; Status DC Dextrose (D50w (Vial) Inj) 25 ml UNSCH PRN IV PUSH SEE LABEL COMMENTS; Start at 21:30; Stop 02/20/17 at 07:05; Status DC Miscellaneous Information 1 1 ONCE ONCE XX Last administered on 02/19/17 22: 33; Start 02/19/17 at 21:30; Stop 02/20/17 at 07:05; Status DC Sodium Chloride 1,000 ml @ 999 mls/hr BOLUS ONCE IV Last administered on 02/19 22:07; Start 02/19/17 at 21:45; Stop 02/19/17 at 22:45; Status DC Lactated Ringer's 1,000 ml @ 999 mls/hr BOLUS ONCE IV Last administered on 23:17; Start 02/19/17 at 22:45; Stop 02/19/17 at 23:45; Status DC Lactated Ringer's 1,000 ml @ 125 mls/hr Q8H IV Last administered on 02/20/17 14:22; Start 02/20/17 at 07:15 Potassium Chloride 100 ml @ 50 mls/hr Q2H PRN IV For Potassium 2.8 - 3.2 mEq/L ; Start 02/20/17 at 07:15; Stop 02/20/17 at 07:26; Status DC Potassium Chloride 100 ml @ 50 mls/hr Q2H PRN IV For Potassium 2.8 - 3.2 mEq/L ; Start 02/20/17 at 07:15; Stop 02/20/17 at 07:26; Status DC Potassium Chloride 100 ml @ 25 mls/hr UNSCH PRN IV For Potassium 3.3 - 3.5 mEq /L; Start 02/20/17 at 07:15; Stop 02/20/17 at 07:26; Status DC Potassium Chloride 100 ml @ 50 mls/hr Q2H PRN IV For Potassium 3.3 - 3.5 mEq/L ; Start 02/20/17 at 07:15; Stop 02/20/17 at 07:26; Status DC Magnesium Sulfate/ Sodium Chloride (Magnesium Sulfate Inj/NS Inj) 100 ml @ 50 mls/hr UNSCH PRN IV For Magnesium 0.9 - 1.1 mg/dL; Start 02/20/17 at 07:15; Stop 02/20/17 at 07:26; Status DC Magnesium Oxide 800 mg 800 mg UNSCH PRN PO For Magnesium 1.2 - 1.6 mg/dL; Start 02/20/17 at 07:15; Stop 02/20/17 at 07:26; Status DC Magnesium Sulfate/ Sodium Chloride (Magnesium Sulfate Inj/NS Inj) 100 ml @ 50 mls/hr UNSCH PRN IV For Magnesium 1.2 - 1.6 mg/dL; Start 02/20/17 at 07:15; Stop 02/20/17 at 07:26; Status DC Potassium Phosphate 2000 mg 2,000 mg Q4H PRN PO For Phosphorus < 2.5 mg/dL; Start 02/20/17 at 07:15; Stop 02/20/17 at 07:26; Status DC Sodium Phosphate/ Sodium Chloride (Sodium Phosphate Inj/NS 250 ml Inj) 250 ml @ 42 mls/hr UNSCH PRN IV For Phosphorus < 2.5 mg/dL; Start 02/20/17 at 07:15; Stop 02/20/17 at 07:26; Status DC Potassium Phosphate 2000 mg 2,000 mg UNSCH PRN PO/TUBE SEE LABEL COMMENTS; Start 02/20/17 at 07:15; Stop 02/20/17 at 07:26; Status DC Potassium Phosphate/Sodium Chloride (Potassium Phosphate Inj/NS 250 ml Inj) 260 ml @ 42 mls/hr UNSCH PRN IV SEE LABEL COMMENTS; Start 02/20/17 at 07:15; Stop 02/20/17 at 07:26; Status DC Water VOLUME: 200 ML Q6HR G-TUBE Last administered on 02/20/17t 12:00; Start at 12:00 Insulin Human Regular/Sodium Chloride (NovoLIN R (IV INFUSION)/NS Inj) 100 ml @ 0 mls/hr TITRATE IV ; Start 02/20/17 at 07:15 Dextrose (D50w (Vial) Inj) 25 ml UNSCH PRN IV PUSH SEE LABEL COMMENTS; Start at 07:15 Miscellaneous Information 1 ONCE ONCE XX Last administered on 02/20/17 08:38 ; Start 02/20/17 at 07:15; Stop 02/20/17 at 07:36; Status DC Insulin Detemir (Levemir Inj) 5 units Q12HR SQ Last administered on 02/20/17 08:42; Start 02/20/17 at 09:00 Miscellaneous Information SPECIFIC LAB TO BE ... ONCE ONCE .XX ; Start 02/21 at 23:45; Stop 02/21/17 at 23:46 Past, Family & Social History Past Medical History Endocrine: REPORTS HX OF: Diabetes mellitus Cardiovascular: REPORTS HX OF: Atrial fibrillation Genitourinary: REPORTS HX OF: Kidney disease Additional past medical hx Sepsis, Forniers gangrene Past Surgical History Integumentary: REPORTS HX OF: Other integumentary surg Review of Systems Cardiovascular: COMPLAINS OF: Swelling legs / ankles Genitourinary: COMPLAINS OF: Renal disease Wound Assessment Vascular Assessment R Dorsails Pedis: Doppler L Dorsails Pedis: Doppler R Posterior Tibial: Doppler L Posterior Tibial: Doppler Temperature of Left Extremity: Cool Temperature of Right Extremity: Cool Extremities Evaluation: Edema Right, Edema Left Wound Information - Wound One Wound Location: bilateral lower extremity ulcerations at the level of where his socks Wound Type: Venous Disease Classification: FT- full thickness Exudate: None Exudate Type: N/A Debridement: No Fibrin Amount: Mild Granulation Tissue Color: None Granulation Tissue Texture: N/A Exposed: No exposed bone, muscle, tendon Eschar: Yes Odor: No Periwound Appearance: FINDINGS: Normal Dressings: Maxorb Extra AG Lab and Radiology Results Laboratory Laboratory Tests Test 02/18/17 02/19/17 02/20/17 22:35 13:46 03:05 White Blood Count 24.5 TH/MM3 15.5 TH/MM3 30.6 TH/MM3 Red Blood Count 4.79 MIL/MM3 4.31 MIL/MM3 4.01 MIL/MM3 Hemoglobin 13.6 GM/DL 12.2 GM/DL 11.8 GM/DL Hematocrit 42.4 % 38.4 % 35.5 % Mean Corpuscular Volume 88.5 FL 89.1 FL 88.4 FL Mean Corpuscular Hemoglobin 28.5 PG 28.3 PG 29.3 PG Mean Corpuscular Hemoglobin 32.2 % 31.7 % 33.2 % Concent Red Cell Distribution Width 14.1 % 14.6 % 14.8 % Platelet Count 248 TH/MM3 200 TH/MM3 291 TH/MM3 Mean Platelet Volume 9.0 FL 8.3 FL 8.3 FL Neutrophils (%) (Auto) 87.7 % 89.5 % 86.3 % Lymphocytes (%) (Auto) 3.2 % 4.4 % 5.2 % Monocytes (%) (Auto) 8.0 % 5.3 % 8.1 % Eosinophils (%) (Auto) 0.0 % 0.0 % 0.0 % Basophils (%) (Auto) 1.1 % 0.8 % 0.4 % Neutrophils # (Auto) 21.4 TH/MM3 13.8 TH/MM3 26.4 TH/MM3 Lymphocytes # (Auto) 0.8 TH/MM3 0.7 TH/MM3 1.6 TH/MM3 Monocytes # (Auto) 2.0 TH/MM3 0.8 TH/MM3 2.5 TH/MM3 Eosinophils # (Auto) 0.0 TH/MM3 0.0 TH/MM3 0.0 TH/MM3 Basophils # (Auto) 0.3 TH/MM3 0.1 TH/MM3 0.1 TH/MM3 CBC Comment AUTO DIFF DIFF FINAL AUTO DIFF Differential Total Cells 100 100 Counted Neutrophils % (Manual) 88 % 59 % Band Neutrophils % 4 % 21 % Lymphocytes % 3 % 9 % Monocytes % 5 % 9 % Neutrophils # (Manual) 22.5 TH/MM3 25.1 TH/MM3 Differential Comment FINAL DIFF FINAL DIFF MANUAL MANUAL Platelet Estimate NORMAL NORMAL Platelet Morphology Comment NORMAL NORMAL Red Cell Morphology Comment NORMAL NORMAL Myelocytes 2 % Dohle Bodies PRESENT Laboratory Tests Test 02/18/17 02/18/17 02/19/17 02/19/17 22:35 22:40 13:46 18:30 Sodium Level 143 MEQ/L 146 MEQ/L Potassium Level 3.6 MEQ/L 3.4 MEQ/L Chloride Level 104 MEQ/L 112 MEQ/L Carbon Dioxide Level 28.5 MEQ/L 29.0 MEQ/L Anion Gap 11 MEQ/L 5 MEQ/L Blood Urea Nitrogen 51 MG/DL 37 MG/DL Creatinine 1.20 MG/DL 0.99 MG/DL Estimat Glomerular Filtration 61 ML/MIN 76 ML/MIN Rate Random Glucose 413 MG/DL 268 MG/DL Calcium Level 9.5 MG/DL 8.6 MG/DL Magnesium Level 2.4 MG/DL Total Bilirubin 0.6 MG/DL Aspartate Amino Transf 17 U/L (AST/SGOT) Alanine Aminotransferase 22 U/L (ALT/SGPT) Alkaline Phosphatase 81 U/L Total Creatine Kinase 146 U/L Troponin I LESS THAN 0.02 NG/ML B-Type Natriuretic Peptide 37 PG/ML Total Protein 7.2 GM/DL Albumin 2.2 GM/DL Lipase 55 U/L Thyroid Stimulating Hormone 1.450 uIU/ML 3rd Gen Lactic Acid Level 1.8 mmol/L 2.2 mmol/L 1.8 mmol/L Ammonia 14 MCMOL/L Test 02/20/17 03:05 Sodium Level 151 MEQ/L Potassium Level 3.5 MEQ/L Chloride Level 117 MEQ/L Carbon Dioxide Level 27.8 MEQ/L Anion Gap 6 MEQ/L Blood Urea Nitrogen 37 MG/DL Creatinine 1.16 MG/DL Estimat Glomerular Filtration 63 ML/MIN Rate Random Glucose 207 MG/DL Lactic Acid Level 1.7 mmol/L Calcium Level 8.1 MG/DL Phosphorus Level 2.0 MG/DL Magnesium Level 1.8 MG/DL Total Bilirubin 1.7 MG/DL Direct Bilirubin 1.3 MG/DL Indirect Bilirubin 0.4 MG/DL Aspartate Amino Transf 14 U/L (AST/SGOT) Alanine Aminotransferase 15 U/L (ALT/SGPT) Alkaline Phosphatase 61 U/L Total Creatine Kinase 58 U/L Total Protein 5.4 GM/DL Albumin 1.6 GM/DL Microbiology Date/Time Procedure Status Source Growth 02/18/17 22:35 Aerobic Blood Culture - Preliminary Resulted Blood Peripheral Gram Positive Cocci Pleomorphic Gram Positive Rods 02/18/17 22:35 Anaerobic Blood Culture - Preliminary Resulted Gram Positive Cocci 02/18/17 22:40 Aerobic Blood Culture - Preliminary Resulted Blood Peripheral NO GROWTH IN 2 DAYS 02/18/17 22:40 Anaerobic Blood Culture - Preliminary Resulted Blood Peripheral 02/19/17 11:36 Gram Stain - Final Resulted Wound Other 02/19/17 11:36 Wound Culture - Preliminary Resulted Wound Other 02/19/17 11:36 Acid Fast Stain Received Wound Other Pending 02/19/17 11:36 Mycobacterial Culture Received Wound Other Pending 02/19/17 11:36 Fungal Smear - Final Resulted Wound Other NO FUNGAL ELEMENTS SEEN. 02/19/17 11:36 Fungal Culture Resulted Wound Other Pending 02/19/17 11:36 Gram Stain - Final Resulted Wound Other 02/19/17 11:36 Wound Culture - Preliminary Resulted Gram Negative Jean-Pierre 02/19/17 11:36 Acid Fast Stain Received Wound Other Pending 02/19/17 11:36 Mycobacterial Culture Received Wound Other Pending 02/19/17 11:36 Fungal Smear - Final Resulted Wound Other NO FUNGAL ELEMENTS SEEN. 02/19/17 11:36 Fungal Culture Resulted Wound Other Pending Radiology Last Impressions Chest X-Ray 02/20/17 0000 Signed Impressions: Service Date/Time: January 02:31 - CONCLUSION: 1. Support apparatus in satisfactory position. Stable to slight improvement in right lung airspace disease since February 19. Jermain Minaya MD Head CT [id number]/19/[id number] Signed Impressions: Service Date/Time: Sunday, February 19, 2017 00:30 - CONCLUSION: 1. No acute findings. No significant change from September 2016. Jermain Minaya MD Abdomen/Pelvis CT [id number]/19/[id number] Signed Impressions: Service Date/Time: Sunday, February 19, 2017 00:36 - CONCLUSION: #1. 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 #2. Left lower quadrant colostomy. Fluid distention of blind-ending rectal pouch to 8.6 cm. Jermain Minaya MD Assessment/Plan Problem List: (1) Diabetes mellitus Status: Chronic (2) Cellulitis and abscess of foot Status: Acute (3) Fourniers gangrene Status: Acute (4) Diabetic foot ulcers Status: Acute Additional Plans & Procedures PLAN: Ordered Maxorb extra AG dressings every third day to the leg wounds. Nursing to keep heels off the bed at all times. We'll follow as needed. Thank you for this consultation. Problem Qualifiers (1) Diabetes mellitus: Qualified Code: E10.8 - Type 1 diabetes mellitus with complication (2) Diabetic foot ulcers: Qualified Code: E10.621 - Diabetic ulcer of other part of foot associated with type 1 diabetes mellitus, with fat layer exposed, unspecified laterality Nato Senior DPM Feb 20, 2017 16:00
[2017-02-20] MEDS ORDERED: MAGNESIUM SULFATE 1 GM PREMIX 100 ML ONE (17:09)
[2017-02-20 17:30] LABS: BICARBONATE 26.8 MEQ/L (21.0-32.0); POTASSIUM 3.1 MEQ/L (3.5-5.1)
[2017-02-20] MEDS: ALBUMIN HUMAN 25% 25 GM/100 ML BAGP IV SCH (18:00)
[2017-02-20] MEDS: POTASSIUM CHLOR 40 MEQ PREMIX 100 ML IV SCH ×2 (18:00→21:42)
[2017-02-20] MEDS: MAGNESIUM SULFATE 1 GM PREMIX 100 ML IV SCH ×2 (18:00→19:00)
[2017-02-20] MEDS: SODIUM CHLOR 0.45% 1000 ML INJ 1,000 ML IV SCH (18:00)
[2017-02-20 18:01] LABS: CALCIUM-PROTEIN CORRECTED 8.6 MG/DL (8.5-10.1)
--- NOTE | 2017-02-20 18:40 | PD.PROCEDR ---
Procedure Note Procedure DATE: 02/20/2017 PROCEDURE: Right axillary arterial catheter placement INDICATION: Hemodynamic access DETAILS OF PROCEDURE The patient was placed in supine position. The skin was cleansed with Chloraprep. Additional barrier precautions included large sterile drape, sterile gloves, sterile gown, face mask, and hat. 1% lidocaine was used for local anesthesia. Under direct ultrasound guidance and on the initial attempt, the artery was accessed with an introducer needle. The guide wire was advanced. Using Seldinger technique 20 gauge arterial catheter was placed. The guide wire was removed. The catheter was connected to a transducer line and flushed with saline. The video monitor displayed normal arterial wave forms. The catheter was secured with 2-0 silk. A sterile dressing with antibiotic disc was applied. ESTIMATED BLOOD LOSS: minimal COMPLICATIONS: None Steven Guzman MD Feb 20, 2017 18:40
[2017-02-20] MEDS ORDERED: GLUCAGON 1 MG/ML VIAL OTHER PRN (18:45)
[2017-02-20] MEDS: INSULIN NovoLIN REGULAR SUPPLEMENTAL SCALE SQ SCH (20:00)
[2017-02-21] VITALS (18 sets, daily range): BP systolic 101–138; BP diastolic 41–70; PULSE 77–110; RESP 17–31; TEMP 97.9–100.3; O2SAT 96–100
[2017-02-21] MEDS: ALBUMIN HUMAN 25% 25 GM/100 ML BAGP IV SCH ×2 (00:11→06:15)
[2017-02-21] MEDS: PIPERACIL-TAZO 4.5 GM PREMIX 100 ML IV SCH ×5 (00:11→23:06)
[2017-02-21] MEDS: VANCOMYCIN INJ 1,500 MG in SODIUM CHLORID 0.9% 500 ML INJ 500 ML IV SCH ×3 (00:12→23:06)
[2017-02-21] MEDS: CLINDAMYCIN INJ 900 MG in SODIUM CHLORIDE 0.9% INJ 100 ML IV SCH ×5 (00:12→23:06)
[2017-02-21] MEDS: SODIUM CHLOR 0.45% 1000 ML INJ 1,000 ML IV SCH ×3 (02:57→17:45)
[2017-02-21] MEDS: RESP: ALBUTEROL 2.5 MG/IPRATROPIUM 0.5 MG NEB (SCH) INH ×4 (04:00→20:18)
[2017-02-21] MEDS: INSULIN NovoLIN REGULAR SUPPLEMENTAL SCALE SQ SCH ×6 (04:00→21:24)
[2017-02-21 04:02] LABS: AUTOMATED NEUTROPHIL # 13.9 TH/MM3 (1.8-7.7); BASOPHIL % 0.1 % (0.0-2.0); EOSINOPHIL # 0.1 TH/MM3 (0-0.4); EOSINOPHIL % 0.6 % (0.0-4.0); HEMATOCRIT 31.3 % (39.0-51.0); LYMPHOCYTE # 1.5 TH/MM3 (1.0-4.8); MEAN CELL VOLUME 88.9 FL (80.0-100.0); MEAN CORPUSCULAR HGB CONC 32.6 % (32.0-36.0); MONO % 7.8 % (0.0-8.0); NEUT % 82.5 % (16.0-70.0); PLATELET COUNT 168 TH/MM3 (150-450); RED BLOOD COUNT 3.52 MIL/MM3 (4.50-5.90); RED CELL DISTRIBUTION WIDTH 14.8 % (11.6-17.2); WHITE BLOOD COUNT 16.8 TH/MM3 (4.0-11.0)
[2017-02-21 04:24] LABS: HEMO FLAGS AUTO DIFF
[2017-02-21 05:10] LABS: ALKALINE PHOSPHATASE 60 U/L (45-117); ALT (GPT) 12 U/L (12-78); AST (GOT) 14 U/L (15-37); BLOOD UREA NITROGEN 28 MG/DL (7-18); GLOMERULAR FILTRATION RATE 82 ML/MIN (>89)
[2017-02-21 05:11] LABS: ANION GAP 8 MEQ/L (5-15); BICARBONATE 26.5 MEQ/L (21.0-32.0); CHLORIDE 114 MEQ/L (98-107); INDIRECT BILIRUBIN 0.4 MG/DL (0.0-0.8); POTASSIUM 3.9 MEQ/L (3.5-5.1); SODIUM (NA) 148 MEQ/L (136-145); TOTAL BILIRUBIN ADULT 1.4 MG/DL (0.2-1.0)
[2017-02-21] MEDS: CHLORHEXIDINE GLUCONATE 2 % 1 PACK (2 CLOTHS) TOP SCH (05:32)
[2017-02-21] MEDS: FREE WATER G-TUBE SCH ×5 (05:33→23:06)
[2017-02-21 05:57] LABS: BANDS 7 % (0-6); EOSINOPHILS 1 % (0-4); METAMYELOCYTES 4 % (0-1); NEUTROPHIL # MANUAL DIFF 14.8 TH/MM3 (1.8-7.7); POLYS (SEG NEUTROPHILS) 77 % (16-70); WBC DIFF SAMPLE 100
[2017-02-21 05:58] LABS: PLATELET ESTIMATE SMEAR NORMAL (NORMAL); PLATELET MORPHOLOGY NORMAL (NORMAL); SCAN/DIFF FINAL DIFF MANUAL
--- NOTE | 2017-02-21 06:03 | HHI.CCPN ---
Subjective Remarks/Hospital Course 66 year-old male. Date of admission 02/19/2017. Date of consultation 02/19/2017. 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 The patient is unable to give any accurate information due to mentation. Information taken from medical records, nursing staff, documentation. It was indicated by ER documentation that the patient was found in a recliner laying in his yard duration up to 3 days and unable to crawl or walk. It is indicated that the colostomy bag was off the patient and he was reportedly covered in feces. He was noted to have a leukocytosis,, elevated blood sugar and altered mental status. CT abdomen status post revealed gas in the soft tissues of the perineum , scrotum and inguinal regions. Thickening of the scrotum noted. CT head showed no acute things. Chest x-ray negative. Urology was consulted today patient was taken back to the OR for debridement Patient has been started on empiric antibiotics include vancomycin, Zosyn. Blood cultures currently no growth to date. 02/20: Tmax 101.3. Currently 100.3. Adequate urine output overnight 1500 cc. White Blood cell count increased to 30,000 overnight. On norepinephrine @ 2 micro-grams per minute to maintain MAP Subjective 02/21: Currently afebrile. Adequate urine output. White blood cell count decreased to 16,000. Off norepinephrine. On Versed and fentanyl drips and does follow commands. Objective Vital Signs Date Time Temp Pulse Resp B/P Pulse Ox O2 Delivery O2 Flow Rate FiO2 02/21/17 04:00 100 40 02/21/17 04:00 90 02/21/17 04:00 98.3 25 104/41 02/19/17 14:15 Mechanical Ventilator 02/19/17 09:34 4 Intake and Output 02/20/17 02/20/17 02/21/17 08:00 16:00 00:00 Intake Total 2164 ml 1132 ml 1513 ml Output Total 375 ml 440 ml 550 ml Balance 1789 ml 692 ml 963 ml Result Diagram: 02/21/17 0340 02/21/17 0340 Other Results Microbiology Date/Time Procedure Status Source Growth 02/19/17 11:36 Gram Stain - Final Resulted Wound Other 02/19/17 11:36 Wound Culture - Preliminary Resulted Wound Other 02/19/17 11:36 Fungal Smear - Final Resulted Wound Other NO FUNGAL ELEMENTS SEEN. 02/19/17 11:36 Fungal Culture Resulted Wound Other Pending 02/19/17 11:36 Acid Fast Stain Received Wound Other Pending 02/19/17 11:36 Mycobacterial Culture Received Wound Other Pending 02/18/17 22:40 Aerobic Blood Culture - Preliminary Resulted Blood Peripheral NO GROWTH IN 2 DAYS 02/18/17 22:40 Anaerobic Blood Culture - Preliminary Resulted Blood Peripheral Imaging Last Impressions Chest X-Ray 02/20/17 0000 Signed Impressions: Service Date/Time: January 02:31 - CONCLUSION: 1. Support apparatus in satisfactory position. Stable to slight improvement in right lung airspace disease since February 19. Jermain Minaya MD Head CT 02/19/172205 Signed Impressions: Service Date/Time: Sunday, February 19, 2017 00:30 - CONCLUSION: 1. No acute findings. No significant change from September 2016. Jermain Minaya MD Abdomen/Pelvis CT 02/19/172205 Signed Impressions: Service Date/Time: Sunday, February 19, 2017 00:36 - CONCLUSION: #1. 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 #2. Left lower quadrant colostomy. Fluid distention of blind-ending rectal pouch to 8.6 cm. Jermain Minaya MD Objective Remarks GENERAL: 67 year old male, critically ill currently orotracheally intubated SKIN: Caudal/posterior Scrotum currently packed and elevated with no active drainage. Dark necrosis throughout the right scrotum Emaceration of back, posterior thighs bilaterally. Right foot with circumferential ulcer around ankle, ulcerated plantar dorsal aspect around great toe. Left ankle with open ulceration HEAD: Atraumatic. Normocephalic. EYES: Pupils equal and round about 2 mm bilaterally and reactive. No scleral icterus. No injection or drainage. ENT: No nasal bleeding or discharge. Mucous membranes pink and moist. Oropharynx without erythema NECK: Trachea midline. No JVD. CARDIOVASCULAR: RRR. S1, S2. No S4. No murmur RESPIRATORY: No accessory muscle use. Clear to auscultation. Breath sounds equal bilaterally. GASTROINTESTINAL: Abdomen soft, non-tender, nondistended. Left lower quadrant ostomy pink and intact with stool. Periumbilical to suprapubic scarring from prior operation noted. Hypoactive bowel sounds are appreciated MUSCULOSKELETAL: Extremities 2+ lower extremity peripheral edema. No obvious deformities. NEUROLOGICAL: Currently sedated on the ventilator on Versed and fentanyl drip. Positive gag. Positive corneal reflex. Withdraws to pain in bilateral upper extremities. Urinary Catheter: Yes Assessment to: Continue Vascular Central Line Catheter: Yes Assessment to: Continue Date of Insertion: Feb 19, 2017 Line: Central Venous Catheter Side: Left Location: Internal, Jugular A/P Assessment and Plan Neuro/Psych: Diabetic neuropathy Insomnia Currently on versed drip at 2 mg an hour/fentanyl drip at 125 micrograms an hour for sedation/analgesia while intubated Goal RASS -2 Daily sedation vacation Holding home medication Restoril 15 mg night as needed for insomnia CT head 02/18 revealed no acute intracranial findings CV: History of hypertension History dyslipidemia Preop A. fib/no history currently normal sinus rhythm Currently on one half normal saline at 125 cc an hour Currently off all vasopressors/goal to keep MAP greater than 65 Holding home medication of metoprolol 25 mg twice a day lisinopril 10 mg daily for hypertension. Resume when clinically indicated Echocardiogram 2013 revealed EF 50-55%. No regional wall motion abnormality. Mildly dilated left atrium TSH within normal limits. Initial troponin negative. 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 Protonix for GI prophylaxis/home medication Colace/as needed Senokot for bowel regimen Ostomy cares Resume Creon 2 tablets 3 times a day If able we'll start Glucerna 1.5 goal 55 cc an hour postoperatively if not extubated : Postop day #2 Excision and debridement with washout of necrotizing fasciitis of the perineum, scrotum, and bilateral groin region secondary to Necrotizing fasciitis/Tony's Gangrene involving scrotum, perineum, bilateral groin regions EBL 250. 900 cc urine output. LR 1900 provided. Plan to return to the OR today for further exploration Dr. Cassidy/urology following Endo: Diabetes mellitus Home medications Levemir 12 units twice a day insulin scale insulin. Currently off insulin drip and on sliding scale insulin with Accu-Cheks every 4 hours to maintain euglycemia/median regimen Renal: Acute kidney injury Monitor urine output Accurate I's and O's Repeat BMP in a.m. Heme: Normocytic anemia Leukocytosis Monitor CBC daily. Follow trends ID: Day #4 vancomycin, clindamycin and Zosyn. Appreciate consultation infectious disease for antibiotic coverage Blood cultures 2 02/18 gram-positive cocci, pleomorphic gram-positive rods Wound culture 02/19 gram-positive cocci. Negative acid-fast bacilli and fungal' s to date FEN: Hypernatremia Hypophosphatemia Replace electrolytes per ICU electrolyte protocol 15 mmol K-Phos IV 1 now MSK: Right second/fifth toe amputation Left second amputation Diabetic foot ulcers Wound care evaluate and treat Recommended Maxorb 3 days/keep heels elevated off bed Access -Left IJ CVL day #3 placed 02/19 - Right axillary arterial line day #2 placed 02/20 Prophylaxis - GI - Protonix - DVT - SCD/heparin subcutaneous Critical Care: The total critical care time was 35 minutes. Time to perform other separately billable procedures was not included in the critical care time. Steven Guzman MD Feb 21, 2017 06:03
[2017-02-21] MEDS ORDERED: POTASSIUM PHOSPHATE INJ 15 MMOL in SODIUM CHLORIDE 0.9% INJ 150 ML IV ONE (06:15)
--- NOTE | 2017-02-21 06:57 | RADRPT ---
EXAM DATE/TIME: 02/21/2017 06:24 [place] COMPARISON: CHEST SINGLE AP, February 20, 2017, 2:31. INDICATIONS : Evaluate for respiratory failure. MEDICAL HISTORY : Diabetes mellitus type II. SURGICAL HISTORY : None. ENCOUNTER: Subsequent ACUITY: 4 - 6 days PAIN SCORE: Non-responsive. LOCATION: chest FINDINGS: Portable AP view of the chest demonstrates a normal-sized cardiac silhouette. Left IJ line, ETT, and nasogastric tube remain present. Lungs are underinflated and there is elevation of the left hemidiaph ragm with atelectasis at the left lung base. There is airspace consolidation in the right midlung zon e, stable from the prior study. No pneumothorax or pleural effusion is visualized. CONCLUSION: Stable chest x-ray with right midlung zone airspace consolidation. Frank Key MD on February 21, 2017 at 6:55 Board Certified Radiologist. This report was verified electronically.
[2017-02-21] MEDS ORDERED: VANCOMYCIN HCL 1000 MG VIAL ONE (08:23)
[2017-02-21] MEDS: LIPASE/PROTEASE/AMYLASE (24,000/76,000/120,000) CAP PO SCH ×3 (08:27→17:31)
[2017-02-21] MEDS: PANTOPRAZOLE SODIUM 40 MG VIAL IV SCH (09:00)
[2017-02-21] MEDS: DOCUSATE SODIUM 100 MG CAP PO SCH ×2 (09:00→21:24)
[2017-02-21] MEDS: INSULIN DETEMIR 100 UNITS/ML VIAL SQ SCH ×2 (09:00→21:25)
[2017-02-21] MEDS: SODIUM CHLORIDE 0.9% FLUSH 10 ML FLUSH IVF SCH (09:00)
[2017-02-21] MEDS: HEPARIN SODIUM - SQ 10,000 UNITS/ML VIAL SQ SCH ×2 (09:00→21:24)
[2017-02-21] MEDS: ARTIFICIAL TEARS OPTH SOLN 15 ML BTL EACH EYE SCH ×3 (09:00→17:45)
[2017-02-21] MEDS: SODIUM CHLORIDE 0.9% FLUSH 10 ML FLUSH IV FLUSH SCH ×2 (09:00→21:24)
--- NOTE | 2017-02-21 10:01 | PD.OP ---
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 Postoperative Diagnosis: Same Procedure: Washout with debridement of necrotic tissue of bilateral inguinal region, scrotum, and perineum. Anesthesia: GETA Surgeon: Norbert Cassidy Furnace Combustion Analyst(s): None Resident Surgeon: None Operation and Findings: Patient was brought to the operating room directly from the SICU and remained intubated. He was identified by myself as Sang Donahue. He was placed on the operating table in the dorsal lithotomy position. He received preprocedure antibiotics. Dressings were removed and then he was prepped and draped in usual sterile fashion. A few areas of necrotic tissue were identified and these were curetted. Other areas were cut using the Metzenbaum scissors. All the prior washout areas looked good and there was only minimal areas of tissue identified. These were removed and then the pulse irrigated with antibiotic solution was then used. A 3 inch Alfredo soaked in vancomycin was used to wrap the testicles. 6 units complaining was then used to pack the other areas and then the wound was closed using interrupted silk. He was stable throughout the entire case and was transferred back to the SICU intubated. He will continue receiving IV antibiotics and then go Friday for another washout. Norbert Cassidy DO Feb 21, 2017 10:01
[2017-02-21] MEDS ORDERED: MIDAZOLAM HCL 2 MG/2 ML VIAL ONE (10:27)
[2017-02-21] MEDS ORDERED: fentaNYL CITRATE 250 MCG/5 ML AMP ONE (10:28)
[2017-02-21] MEDS: fentaNYL DRIP 250 ML IV SCH (15:21)
--- NOTE | 2017-02-21 16:43 | EKG ---
Date Performed: 02/21/2017 Time Performed: 01:16:38 PTAGE: 67 years EKG: Sinus rhythm with PAC(s) Borderline ECG Compared to prior tracing no significant change PREVIOUS TRACING : 02/19/2017 08.26 DOCTOR: Garrick Stevens Interpretating Date/Time 02/21/2017 16:40:33
--- NOTE | 2017-02-21 16:43 | EKG ---
Date Performed: 02/21/2017 Time Performed: 01:18:46 PTAGE: 67 years EKG: Sinus rhythm with aberrantly conducted supraventricular complexes with PVC(s) with PAC(s). Borderline ECG Compare d to prior tracing no significant change PREVIOUS TRACING : 02/21/2017 01.16 DOCTOR: Garrick Stevens Interpretating Date/Time 02/21/2017 16:40:42
[2017-02-21] MEDS: BENEPROTEIN POWDER 1 PACK G-TUBE SCH (17:45)
--- NOTE | 2017-02-21 17:54 | HHI.IDPN ---
Note Infectious Disease Note Patient is sedated on the vent. post debridement of perinuem today. Off levophed. Afebrile. twitching at left thumb. Admitted with altered mental status along with severe dehydration. A CT scan of the abdomen and pelvis showed gas accumulation in the soft tissue of the perineum, scrotum and inguinal region associated with marked scrotal wall thickening characteristic of necrotizing type of infection. The patient was evaluated by urology and he was taken to surgery and underwent debridement of necrotic tissue and there was also purulent drainage as well. PAST MEDICAL HISTORY 1. Diabetes mellitus. 2. Hypertension. 3. Atrial fibrillation. 4. History of megacolon. 5. Arthritis. 6. Tonsillectomy. 7. Colostomy. 8. Oral surgery. 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 ALLERGIES FLOMAX. ANTIBIOTICS: 1. Vancomycin. 2. Piperacillin/tazobactam. 3. Clindamycin. SOCIAL HISTORY Unable to obtain. REVIEW OF SYSTEMS Unable to obtain. OBJECTIVE: Vital Signs Date Time Temp Pulse Resp B/P Pulse Ox O2 Delivery O2 Flow Rate FiO2 02/21/17 16:11 97 30 02/21/17 16:00 88 104/48 02/21/17 16:00 98.0 88 18 104/48 97 02/21/17 16:00 30 02/21/17 16:00 88 02/21/17 14:00 109 02/21/17 12:00 97.9 84 17 114/55 100 02/21/17 12:00 84 114/55 02/21/17 12:00 30 02/21/17 12:00 84 02/21/17 11:40 96 30 02/21/17 11:40 30 02/21/17 10:15 98 40 02/21/17 10:00 80 117/56 02/21/17 10:00 82 02/21/17 08:00 100 100 02/21/17 08:00 80 02/21/17 08:00 100 02/21/17 08:00 98.7 90 26 138/70 100 02/21/17 06:00 87 02/21/17 04:00 100 40 02/21/17 04:00 90 02/21/17 04:00 40 02/21/17 04:00 98.3 90 25 100 104/41 02/21/17 04:00 77 101/41 02/21/17 02:00 110 02/21/17 00:08 100 40 02/21/17 00:00 110 02/21/17 00:00 77 106/47 02/21/17 00:00 40 02/21/17 00:00 98.7 110 25 100 106/47 Arterial Line 02/20/17 22:00 76 02/20/17 20:07 100 40 02/20/17 20:00 68 02/20/17 20:00 40 02/20/17 20:00 77 111/55 02/20/17 20:00 97.6 77 16 100 111/55 02/20/17 18:00 81 02/20/17 02/20/17 02/21/17 15:00 23:00 07:00 Intake Total 1132 ml 1513 ml 1842 ml Output Total 440 ml 550 ml 650 ml Balance 692 ml 963 ml 1192 ml IV Total 1132 ml 1275 ml 1610 ml Tube Feeding 138 ml 32 ml Albumin 100 ml 200 ml Output Urine Total 425 ml 550 ml 650 ml Gastric Drainage Total 15 ml # Bowel Movements 0 0 0 Laboratory Tests Test 02/20/17 02/21/17 03:05 03:40 White Blood Count 30.6 TH/MM3 16.8 TH/MM3 Red Blood Count 4.01 MIL/MM3 3.52 MIL/MM3 Hemoglobin 11.8 GM/DL 10.2 GM/DL Hematocrit 35.5 % 31.3 % Mean Corpuscular Volume 88.4 FL 88.9 FL Mean Corpuscular Hemoglobin 29.3 PG 29.0 PG Mean Corpuscular Hemoglobin 33.2 % 32.6 % Concent Red Cell Distribution Width 14.8 % 14.8 % Platelet Count 291 TH/MM3 168 TH/MM3 Mean Platelet Volume 8.3 FL 8.6 FL Neutrophils (%) (Auto) 86.3 % 82.5 % Lymphocytes (%) (Auto) 5.2 % 9.0 % Monocytes (%) (Auto) 8.1 % 7.8 % Eosinophils (%) (Auto) 0.0 % 0.6 % Basophils (%) (Auto) 0.4 % 0.1 % Neutrophils # (Auto) 26.4 TH/MM3 13.9 TH/MM3 Lymphocytes # (Auto) 1.6 TH/MM3 1.5 TH/MM3 Monocytes # (Auto) 2.5 TH/MM3 1.3 TH/MM3 Eosinophils # (Auto) 0.0 TH/MM3 0.1 TH/MM3 Basophils # (Auto) 0.1 TH/MM3 0.0 TH/MM3 CBC Comment AUTO DIFF AUTO DIFF Differential Total Cells 100 100 Counted Neutrophils % (Manual) 59 % 77 % Band Neutrophils % 21 % 7 % Lymphocytes % 9 % 9 % Monocytes % 9 % 2 % Neutrophils # (Manual) 25.1 TH/MM3 14.8 TH/MM3 Myelocytes 2 % Differential Comment FINAL DIFF FINAL DIFF MANUAL MANUAL Dohle Bodies PRESENT Platelet Estimate NORMAL NORMAL Platelet Morphology Comment NORMAL NORMAL Red Cell Morphology Comment NORMAL Eosinophils % 1 % Metamyelocytes 4 % Laboratory Tests Test 02/19/17 02/20/17 02/20/17 02/21/17 18:30 03:05 16:55 03:40 Lactic Acid Level 1.8 mmol/L 1.7 mmol/L 1.4 mmol/L Sodium Level 151 MEQ/L 153 MEQ/L 148 MEQ/L Potassium Level 3.5 MEQ/L 3.1 MEQ/L 3.9 MEQ/L Chloride Level 117 MEQ/L 118 MEQ/L 114 MEQ/L Carbon Dioxide Level 27.8 MEQ/L 26.8 MEQ/L 26.5 MEQ/L Anion Gap 6 MEQ/L 8 MEQ/L 8 MEQ/L Blood Urea Nitrogen 37 MG/DL 31 MG/DL 28 MG/DL Creatinine 1.16 MG/DL 0.91 MG/DL 0.92 MG/DL Estimat Glomerular Filtration 63 ML/MIN 83 ML/MIN 82 ML/MIN Rate Random Glucose 207 MG/DL 134 MG/DL 215 MG/DL Calcium Level 8.1 MG/DL 7.4 MG/DL 7.8 MG/DL Phosphorus Level 2.0 MG/DL 1.8 MG/DL Magnesium Level 1.8 MG/DL 2.0 MG/DL Total Bilirubin 1.7 MG/DL 1.4 MG/DL Direct Bilirubin 1.3 MG/DL 1.0 MG/DL Indirect Bilirubin 0.4 MG/DL 0.4 MG/DL Aspartate Amino Transf 14 U/L 14 U/L (AST/SGOT) Alanine Aminotransferase 15 U/L 12 U/L (ALT/SGPT) Alkaline Phosphatase 61 U/L 60 U/L Total Creatine Kinase 58 U/L Total Protein 5.4 GM/DL 4.9 GM/DL 5.6 GM/DL Albumin 1.6 GM/DL 2.0 GM/DL Protein Corrected Calcium 8.6 MG/DL Microbiology Date/Time Procedure Status Source Growth 02/18/17 22:35 Aerobic Blood Culture - Preliminary Resulted Blood Peripheral Streptococcus Species Pleomorphic Gram Positive Rods 02/18/17 22:35 Anaerobic Blood Culture - Final Resulted Viridans Streptococcus Grp 02/18/17 22:40 Aerobic Blood Culture - Preliminary Resulted Blood Peripheral NO GROWTH IN 3 DAYS 02/18/17 22:40 Anaerobic Blood Culture - Preliminary Resulted Viridans Streptococcus Grp 02/19/17 11:36 Gram Stain - Final Resulted Wound Other 02/19/17 11:36 Wound Culture - Preliminary Resulted Gram Negative Jean-Pierre 02/19/17 11:36 Acid Fast Stain - Final Resulted Wound Other NO ACID FAST BACILLI SEEN 02/19/17 11:36 Mycobacterial Culture Resulted Wound Other Pending 02/19/17 11:36 Fungal Smear - Final Resulted Wound Other NO FUNGAL ELEMENTS SEEN. 02/19/17 11:36 Fungal Culture Resulted Wound Other Pending 02/19/17 11:36 Gram Stain - Final Resulted Wound Other 02/19/17 11:36 Wound Culture - Preliminary Resulted Gram Negative Jean-Pierre 02/19/17 11:36 Acid Fast Stain - Final Resulted Wound Other NO ACID FAST BACILLI SEEN 02/19/17 11:36 Mycobacterial Culture Resulted Wound Other Pending 02/19/17 11:36 Fungal Smear - Final Resulted Wound Other NO FUNGAL ELEMENTS SEEN. 02/19/17 11:36 Fungal Culture Resulted Wound Other Pending PHYSICAL EXAMINATION GENERAL: On the ventilator and unresponsive. He is sedated. HEENT: The head is atraumatic. Extraocular movements cannot be fully assessed since the patient is sedated on the ventilator. Oropharynx intubated. Moist oral mucosa. NECK: No swelling or adenopathy. LUNGS: Diminished breath sounds throughout. HEART: Irregular rate and rhythm. No murmurs, rubs or gallops. ABDOMEN: Bowel sounds present, soft, no tenderness appreciated. : The scrotum is post debridement. SKIN: No rash. The patient has multiple excoriated areas on the leg. 2+ edema of the legs and thighs. NEURO: Unable to assess. PSYCH: Unable to assess. IMPRESSION 1. Bacteremia and sepsis due to gram-positive cocci in a patient who presented with altered mental status and also leukocytosis and tachycardia and diagnosed to have Tony's gangrene. 2. Tony's gangrene/necrotizing fasciitis of scrotum, perineum and inguinal region. strep viridans, gram positive jean-pierre and gram neg jean-pierre. 3. Acute kidney disease. renal function improved. 4. Leukocytosis secondary to infection. WBC improved. RECOMMENDATIONS 1. Continue vancomycin. 2. Continue clindamycin. 3. Continue piperacillin/tazobactam. 4. Monitor wound cultures. Identity of gram neg jean-pierre. 5. Monitor clinical status. I will be off until 03/04 oher ID MDs covering in my absence. Marko Hahn MD Feb 21, 2017 17:54
[2017-02-21] MEDS: MIDAZOLAM 100 MG/ML INJ 100 ML IV SCH (21:25)
[2017-02-21] MEDS ORDERED: PHARMACY ORDERED LAB ONE (23:45)
[2017-02-22] VITALS (18 sets, daily range): BP systolic 104–132; BP diastolic 46–68; PULSE 74–100; RESP 13–20; TEMP 98–98.7; O2SAT 97–100
[2017-02-22] MEDS: SODIUM CHLOR 0.45% 1000 ML INJ 1,000 ML IV SCH ×3 (01:12→18:00)
[2017-02-22] MEDS: INSULIN NovoLIN REGULAR SUPPLEMENTAL SCALE SQ SCH ×7 (01:12→23:24)
[2017-02-22] MEDS: RESP: ALBUTEROL 2.5 MG/IPRATROPIUM 0.5 MG NEB (SCH) INH ×4 (03:37→21:00)
[2017-02-22] MEDS: CHLORHEXIDINE GLUCONATE 2 % 1 PACK (2 CLOTHS) TOP SCH (04:00)
[2017-02-22 04:39] LABS: AUTOMATED NEUTROPHIL # 10.3 TH/MM3 (1.8-7.7); BASOPHIL # 0.1 TH/MM3 (0-0.2); BASOPHIL % 0.5 % (0.0-2.0); EOSINOPHIL # 0.1 TH/MM3 (0-0.4); EOSINOPHIL % 1.1 % (0.0-4.0); HEMATOCRIT 30.3 % (39.0-51.0); LYMPH % 11.8 % (9.0-44.0); LYMPHOCYTE # 1.6 TH/MM3 (1.0-4.8); MEAN CORPUSCULAR HEMOGLOBIN 28.8 PG (27.0-34.0); MEAN CORPUSCULAR HGB CONC 32.4 % (32.0-36.0); MONO % 9.6 % (0.0-8.0); PLATELET COUNT 154 TH/MM3 (150-450); RED BLOOD COUNT 3.41 MIL/MM3 (4.50-5.90); RED CELL DISTRIBUTION WIDTH 14.9 % (11.6-17.2); WHITE BLOOD COUNT 13.4 TH/MM3 (4.0-11.0)
[2017-02-22 04:57] LABS: ALT (GPT) 13 U/L (12-78); ANION GAP 8 MEQ/L (5-15); AST (GOT) 21 U/L (15-37); BICARBONATE 26.9 MEQ/L (21.0-32.0); BLOOD UREA NITROGEN 19 MG/DL (7-18); CHLORIDE 112 MEQ/L (98-107); GLOMERULAR FILTRATION RATE 109 ML/MIN (>89); MAGNESIUM 1.6 MG/DL (1.5-2.5); SODIUM (NA) 147 MEQ/L (136-145)
[2017-02-22 04:59] LABS: ALKALINE PHOSPHATASE 66 U/L (45-117); TOTAL BILIRUBIN ADULT 0.9 MG/DL (0.2-1.0)
[2017-02-22] MEDS: FREE WATER G-TUBE SCH ×4 (04:59→23:23)
[2017-02-22 05:02] LABS: HEMO FLAGS AUTO DIFF
[2017-02-22 06:50] LABS: BANDS 2 % (0-6); METAMYELOCYTES 3 % (0-1); MYELOCYTES 1 % (0-0); NEUTROPHIL # MANUAL DIFF 11.1 TH/MM3 (1.8-7.7); PLASMA CELLS 1 % (0-0); POLYS (SEG NEUTROPHILS) 77 % (16-70); WBC DIFF SAMPLE 100
[2017-02-22 06:51] LABS: PLATELET ESTIMATE SMEAR LOW (NORMAL); PLATELET MORPHOLOGY NORMAL (NORMAL); SCAN/DIFF FINAL DIFF MANUAL
[2017-02-22] MEDS: DOCUSATE SODIUM 100 MG CAP PO SCH ×2 (09:00→23:23)
[2017-02-22] MEDS: CLINDAMYCIN INJ 900 MG in SODIUM CHLORIDE 0.9% INJ 100 ML IV SCH ×2 (09:19→16:00)
[2017-02-22] MEDS: PIPERACIL-TAZO 4.5 GM PREMIX 100 ML IV SCH ×3 (09:20→23:24)
[2017-02-22] MEDS: HEPARIN SODIUM - SQ 10,000 UNITS/ML VIAL SQ SCH ×2 (09:21→23:23)
[2017-02-22] MEDS: LIPASE/PROTEASE/AMYLASE (24,000/76,000/120,000) CAP PO SCH ×3 (09:21→18:00)
[2017-02-22] MEDS: PANTOPRAZOLE SODIUM 40 MG VIAL IV SCH (09:21)
[2017-02-22] MEDS: SODIUM CHLORIDE 0.9% FLUSH 10 ML FLUSH IVF SCH (09:22)
[2017-02-22] MEDS: INSULIN DETEMIR 100 UNITS/ML VIAL SQ SCH ×2 (09:22→21:00)
[2017-02-22] MEDS: SODIUM CHLORIDE 0.9% FLUSH 10 ML FLUSH IV FLUSH SCH ×2 (09:22→23:23)
[2017-02-22] MEDS: ARTIFICIAL TEARS OPTH SOLN 15 ML BTL EACH EYE SCH ×3 (09:23→18:00)
[2017-02-22] MEDS: BENEPROTEIN POWDER 1 PACK G-TUBE SCH ×3 (09:25→18:00)
[2017-02-22] MEDS: VANCOMYCIN INJ 1,500 MG in SODIUM CHLORID 0.9% 500 ML INJ 500 ML IV SCH (12:48)
[2017-02-22] MEDS: fentaNYL DRIP 250 ML IV SCH (13:13)
[2017-02-22] MEDS: MAGNESIUM SULFATE 1 GM PREMIX 100 ML IV SCH ×2 (13:45→14:45)
[2017-02-22] MEDS ORDERED: POLYETHYLENE GLYCOL 17 GM PKG PO ONE (13:45)
[2017-02-22] MEDS ORDERED: MINERAL OIL LIQUID 30 ML CUP PO ONE (13:45)
--- NOTE | 2017-02-22 13:47 | HHI.CCPN ---
Subjective Remarks/Hospital Course 66 year-old male. Date of admission 02/19/2017. Date of consultation 02/19/2017. 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 The patient is unable to give any accurate information due to mentation. Information taken from medical records, nursing staff, documentation. It was indicated by ER documentation that the patient was found in a recliner laying in his yard duration up to 3 days and unable to crawl or walk. It is indicated that the colostomy bag was off the patient and he was reportedly covered in feces. He was noted to have a leukocytosis,, elevated blood sugar and altered mental status. CT abdomen status post revealed gas in the soft tissues of the perineum , scrotum and inguinal regions. Thickening of the scrotum noted. CT head showed no acute things. Chest x-ray negative. Urology was consulted today patient was taken back to the OR for debridement Patient has been started on empiric antibiotics include vancomycin, Zosyn. Blood cultures currently no growth to date. 02/20: Tmax 101.3. Currently 100.3. Adequate urine output overnight 1500 cc. White Blood cell count increased to 30,000 overnight. On norepinephrine @ 2 micro-grams per minute to maintain MAP 02/21: Currently afebrile. Adequate urine output. White blood cell count decreased to 16,000. Off norepinephrine. On Versed and fentanyl drips and does follow commands. Subjective 02/22: Currently afebrile. Again adequate urine output. Arousable and follows commands. White blood cell count currently 13,000. On fentanyl drip for pain. Objective Vital Signs Date Time Temp Pulse Resp B/P Pulse Ox O2 Delivery O2 Flow Rate FiO2 02/22/17 13:15 30 02/22/17 12:08 100 02/22/17 12:00 98.0 82 18 131/56 02/19/17 14:15 Mechanical Ventilator 02/19/17 09:34 4 Intake and Output 02/21/17 02/21/17 02/22/17 08:00 16:00 00:00 Intake Total 1842 ml 1194 ml 1640 ml Output Total 650 ml 1100 ml 700 ml Balance 1192 ml 94 ml 940 ml Result Diagram: 02/22/17 0430 02/22/17 0430 Other Results Microbiology Date/Time Procedure Status Source Growth 02/19/17 11:36 Gram Stain - Final Complete Wound Other 02/19/17 11:36 Wound Culture - Final Complete Proteus Mirabilis Morganella Morganii 02/19/17 11:36 Fungal Smear - Final Resulted Wound Other NO FUNGAL ELEMENTS SEEN. 02/19/17 11:36 Fungal Culture Resulted Wound Other Pending 02/19/17 11:36 Acid Fast Stain - Final Resulted Wound Other NO ACID FAST BACILLI SEEN 02/19/17 11:36 Mycobacterial Culture Resulted Wound Other Pending 02/18/17 22:40 Aerobic Blood Culture - Preliminary Resulted Blood Peripheral NO GROWTH IN 4 DAYS 02/18/17 22:40 Anaerobic Blood Culture - Final Resulted Viridans Streptococcus Grp Imaging Last Impressions Chest X-Ray 02/21/17 0600 Signed Impressions: Service Date/Time: Tuesday, February 21, 2017 06:24 - CONCLUSION: Stable chest x-ray with right midlung zone airspace consolidation. Frank Key MD Head CT 02/19/172205 Signed Impressions: Service Date/Time: Sunday, February 19, 2017 00:30 - CONCLUSION: 1. No acute findings. No significant change from September 2016. Jermain Minaya MD Abdomen/Pelvis CT 02/19/172205 Signed Impressions: Service Date/Time: Sunday, February 19, 2017 00:36 - CONCLUSION: #1. 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 #2. Left lower quadrant colostomy. Fluid distention of blind-ending rectal pouch to 8.6 cm. Jermain Minaya MD Objective Remarks GENERAL: 67 year old male, critically ill currently orotracheally intubated SKIN: Caudal/posterior Scrotum currently packed and elevated with no active drainage. Dark necrosis throughout the right scrotum Emaceration of back, posterior thighs bilaterally. Right foot with circumferential ulcer around ankle, ulcerated plantar dorsal aspect around great toe. Left ankle with open ulceration HEAD: Atraumatic. Normocephalic. EYES: Pupils equal and round about 2 mm bilaterally and reactive. No scleral icterus. No injection or drainage. ENT: No nasal bleeding or discharge. Mucous membranes pink and moist. Oropharynx without erythema NECK: Trachea midline. No JVD. CARDIOVASCULAR: RRR. S1, S2. No S4. No murmur RESPIRATORY: No accessory muscle use. Clear to auscultation. Breath sounds equal bilaterally. GASTROINTESTINAL: Abdomen soft, non-tender, nondistended. Left lower quadrant ostomy pink and intact with stool. Periumbilical to suprapubic scarring from prior operation noted. Hypoactive bowel sounds are appreciated MUSCULOSKELETAL: Extremities 2+ lower extremity peripheral edema. No obvious deformities. NEUROLOGICAL: Currently sedated on the ventilator on Versed and fentanyl drip. Positive gag. Positive corneal reflex. Withdraws to pain in bilateral upper extremities. Date of Insertion: Feb 19, 2017 Line: Central Venous Catheter Side: Left Location: Internal, Jugular A/P Assessment and Plan Neuro/Psych: Diabetic neuropathy Insomnia Currently on fentanyl drip at 100 micrograms an hour for sedation/analgesia while intubated Goal RASS -2 Daily sedation vacation Holding home medication Restoril 15 mg night as needed for insomnia CT head 02/18 revealed no acute intracranial findings CV: History of hypertension History dyslipidemia Preop A. fib/no history currently normal sinus rhythm Currently on one half normal saline at 125 cc an hour Currently off all vasopressors/goal to keep MAP greater than 65 Holding home medication of metoprolol 25 mg twice a day lisinopril 10 mg daily for hypertension. Resume when clinically indicated Echocardiogram 2013 revealed EF 50-55%. No regional wall motion abnormality. Mildly dilated left atrium TSH within normal limits. Initial troponin negative. 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 Protonix for GI prophylaxis/home medication Colace/as needed Senokot for bowel regimen Ostomy cares Resume Creon 2 tablets 3 times a day Continue Glucerna 1.5 goal 55 cc an hour postoperatively if not extubated : Postop day #3 Excision and debridement with washout of necrotizing fasciitis of the perineum, scrotum, and bilateral groin region secondary to Necrotizing fasciitis/Tony's Gangrene involving scrotum, perineum, bilateral groin regions Postop day 1 washout Plan to return to the OR on Friday for further exploration Dr. Cassidy/urology following Endo: Diabetes mellitus Home medications Levemir 10 units twice a day insulin scale insulin. Currently off insulin drip and on sliding scale insulin with Accu-Cheks every 4 hours to maintain euglycemia/medium regimen Renal: Acute kidney injury Monitor urine output Accurate I's and O's Repeat BMP in a.m. Heme: Normocytic anemia Leukocytosis Monitor CBC daily. Follow trends ID: Day #5 vancomycin, clindamycin and Zosyn. Appreciate consultation infectious disease for antibiotic coverage Blood cultures 2 02/18 strep species, pleomorphic gram-positive rods Wound culture 02/19 Morganella and Proteus . negative acid-fast bacilli and fungal's to date FEN: Hypernatremia Hypophosphatemia Replace electrolytes per ICU electrolyte protocol 15 mmol K-Phos IV 1 now Continue one half normal saline with free water 200 every 6 MSK: Right second/fifth toe amputation Left second amputation Diabetic foot ulcers Wound care evaluate and treat Recommended Maxorb 3 days/keep heels elevated off bed Access -Left IJ CVL day #4 placed 02/19 - Right axillary arterial line day #3 placed 3 Prophylaxis - GI - Protonix - DVT - SCD/heparin subcutaneous Critical Care: The total critical care time was 35 minutes. Time to perform other separately billable procedures was not included in the critical care time. Steven Guzman MD Feb 22, 2017 13:47 Steven Guzman MD Feb 22, 2017 13:47
[2017-02-22] MEDS: POTASSIUM PHOSPHATE/SODIUM PHOSPHATE 250 MG TAB PO SCH (18:00)
[2017-02-22] MEDS: LACTULOSE SYRUP 20 GM/30 ML CUP PO SCH ×2 (18:00→23:23)
[2017-02-22] MEDS: SENNOSIDES 8.6 MG TAB PO SCH (23:24)
[2017-02-23] VITALS (18 sets, daily range): BP systolic 118–166; BP diastolic 56–71; PULSE 70–86; RESP 16–19; TEMP 97.8–99.8; O2SAT 98–100
[2017-02-23] MEDS: CLINDAMYCIN INJ 900 MG in SODIUM CHLORIDE 0.9% INJ 100 ML IV SCH ×3 (00:16→15:42)
[2017-02-23] MEDS: VANCOMYCIN INJ 1,500 MG in SODIUM CHLORID 0.9% 500 ML INJ 500 ML IV SCH ×2 (00:16→13:45)
[2017-02-23] MEDS: SODIUM CHLOR 0.45% 1000 ML INJ 1,000 ML IV SCH ×3 (01:41→18:41)
[2017-02-23] MEDS: POTASSIUM PHOSPHATE/SODIUM PHOSPHATE 250 MG TAB PO SCH ×5 (01:41→18:41)
[2017-02-23] MEDS: RESP: ALBUTEROL 2.5 MG/IPRATROPIUM 0.5 MG NEB (SCH) INH ×4 (03:34→20:15)
[2017-02-23] MEDS: CHLORHEXIDINE GLUCONATE 2 % 1 PACK (2 CLOTHS) TOP SCH (04:00)
[2017-02-23 04:48] LABS: AUTOMATED NEUTROPHIL # 9.7 TH/MM3 (1.8-7.7); BASOPHIL # 0.1 TH/MM3 (0-0.2); EOSINOPHIL # 0.3 TH/MM3 (0-0.4); EOSINOPHIL % 2.1 % (0.0-4.0); HEMATOCRIT 30.7 % (39.0-51.0); LYMPH % 12.1 % (9.0-44.0); LYMPHOCYTE # 1.6 TH/MM3 (1.0-4.8); MEAN CELL VOLUME 88.8 FL (80.0-100.0); MEAN CORPUSCULAR HEMOGLOBIN 28.5 PG (27.0-34.0); MEAN CORPUSCULAR HGB CONC 32.1 % (32.0-36.0); MONO % 9.4 % (0.0-8.0); NEUT % 75.4 % (16.0-70.0); PLATELET COUNT 183 TH/MM3 (150-450); RED BLOOD COUNT 3.46 MIL/MM3 (4.50-5.90); RED CELL DISTRIBUTION WIDTH 14.8 % (11.6-17.2); WHITE BLOOD COUNT 12.9 TH/MM3 (4.0-11.0)
[2017-02-23 04:49] LABS: HEMO FLAGS AUTO DIFF
--- NOTE | 2017-02-23 05:14 | RADRPT ---
EXAM DATE/TIME: 02/23/2017 04:22 [facility] COMPARISON: CHEST SINGLE AP, February 21, 2017, 6:24. INDICATIONS : Shortness of breath. MEDICAL HISTORY : Hypertension. Diabetes mellitus type II. Atrial fibrillation. SURGICAL HISTORY : None. ENCOUNTER: Subsequent ACUITY: 4 - 6 days PAIN SCORE: Non-responsive. LOCATION: Bilateral chest FINDINGS: Rotated portable AP view of the chest demonstrates a normal-sized cardiac silhouette. ETT, left IJ li ne, and nasogastric tube remain present. There is mild airspace consolidation in the right midlung zo ne that has improved. No pleural effusion or pneumothorax is identified. CONCLUSION: Mild improvement in the right midlung zone airspace consolidation. Frank Key MD on February 23, 2017 at 5:12 Board Certified Radiologist. This report was verified electronically.
[2017-02-23] MEDS: FREE WATER G-TUBE SCH ×3 (05:21→18:41)
[2017-02-23 05:33] LABS: BANDS 3 % (0-6); EOSINOPHILS 3 % (0-4); METAMYELOCYTES 2 % (0-1); MYELOCYTES 2 % (0-0); NEUTROPHIL # MANUAL DIFF 9.5 TH/MM3 (1.8-7.7); PLATELET ESTIMATE SMEAR NORMAL (NORMAL); PLATELET MORPHOLOGY NORMAL (NORMAL); POLYS (SEG NEUTROPHILS) 67 % (16-70); SCAN/DIFF FINAL DIFF MANUAL; STOMATOCYTES 1+ (NORMAL); WBC DIFF SAMPLE 100
[2017-02-23 05:40] LABS: BICARBONATE 28.4 MEQ/L (21.0-32.0); MAGNESIUM 1.9 MG/DL (1.5-2.5); POTASSIUM 4.3 MEQ/L (3.5-5.1)
[2017-02-23] MEDS ORDERED: MAGNESIUM SULFATE 1 GM PREMIX 100 ML IV ONE (06:15)
--- NOTE | 2017-02-23 06:15 | HHI.CCPN ---
Subjective Remarks/Hospital Course 66 year-old male. Date of admission 02/19/2017. Date of consultation 02/19/2017. 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 The patient is unable to give any accurate information due to mentation. Information taken from medical records, nursing staff, documentation. It was indicated by ER documentation that the patient was found in a recliner laying in his yard duration up to 3 days and unable to crawl or walk. It is indicated that the colostomy bag was off the patient and he was reportedly covered in feces. He was noted to have a leukocytosis,, elevated blood sugar and altered mental status. CT abdomen status post revealed gas in the soft tissues of the perineum , scrotum and inguinal regions. Thickening of the scrotum noted. CT head showed no acute things. Chest x-ray negative. Urology was consulted today patient was taken back to the OR for debridement Patient has been started on empiric antibiotics include vancomycin, Zosyn. Blood cultures currently no growth to date. 02/20: Tmax 101.3. Currently 100.3. Adequate urine output overnight 1500 cc. White Blood cell count increased to 30,000 overnight. On norepinephrine @ 2 micro-grams per minute to maintain MAP 02/21: Currently afebrile. Adequate urine output. White blood cell count decreased to 16,000. Off norepinephrine. On Versed and fentanyl drips and does follow commands. 02/22: Currently afebrile. Again adequate urine output. Arousable and follows commands. White blood cell count currently 13,000. On fentanyl drip for pain. Subjective 02/23: Afebrile. Arousable on the ventilator and follows commands. Blood cell count trending downward. On fentanyl drip for pain along with Versed for comfort Objective Vital Signs Date Time Temp Pulse Resp B/P Pulse Ox O2 Delivery O2 Flow Rate FiO2 02/23/17 04:00 76 02/23/17 04:00 98.7 16 99 121/59 02/23/17 04:00 30 02/19/17 14:15 Mechanical Ventilator 02/19/17 09:34 4 Intake and Output 02/22/17 02/22/17 02/23/17 08:00 16:00 00:00 Intake Total 2031 ml 2694 ml 2162 ml Output Total 700 ml 825 ml 800 ml Balance 1331 ml 1869 ml 1362 ml Result Diagram: 02/23/17 0430 02/23/17 0430 Other Results Microbiology Date/Time Procedure Status Source Growth 02/19/17 11:36 Gram Stain - Final Complete Wound Other 02/19/17 11:36 Wound Culture - Final Complete Proteus Mirabilis Morganella Morganii 02/19/17 11:36 Fungal Smear - Final Resulted Wound Other NO FUNGAL ELEMENTS SEEN. 02/19/17 11:36 Fungal Culture Resulted Wound Other Pending 02/19/17 11:36 Acid Fast Stain - Final Resulted Wound Other NO ACID FAST BACILLI SEEN 02/19/17 11:36 Mycobacterial Culture Resulted Wound Other Pending 02/18/17 22:40 Aerobic Blood Culture - Preliminary Resulted Blood Peripheral NO GROWTH IN 4 DAYS 02/18/17 22:40 Anaerobic Blood Culture - Final Resulted Viridans Streptococcus Grp Imaging Last Impressions Chest X-Ray 02/23/17 0600 Signed Impressions: Service Date/Time: Thursday, February 23, 2017 04:22 - CONCLUSION: Mild improvement in the right midlung zone airspace consolidation. Frank Key MD Head CT 02/19/172205 Signed Impressions: Service Date/Time: Sunday, February 19, 2017 00:30 - CONCLUSION: 1. No acute findings. No significant change from September 2016. Jermain Minaya MD Abdomen/Pelvis CT 02/19/172205 Signed Impressions: Service Date/Time: Sunday, February 19, 2017 00:36 - CONCLUSION: #1. 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 #2. Left lower quadrant colostomy. Fluid distention of blind-ending rectal pouch to 8.6 cm. Jermain Minaya MD Objective Remarks GENERAL: 67 year old male, critically ill currently orotracheally intubated SKIN: Caudal/posterior Scrotum currently packed and elevated with no active drainage. Dark necrosis throughout the right scrotum Emaceration of back, posterior thighs bilaterally. Right foot with circumferential ulcer around ankle, ulcerated plantar dorsal aspect around great toe. Left ankle with open ulceration HEAD: Atraumatic. Normocephalic. EYES: Pupils equal and round about 2 mm bilaterally and reactive. No scleral icterus. No injection or drainage. ENT: No nasal bleeding or discharge. Mucous membranes pink and moist. Oropharynx without erythema NECK: Trachea midline. No JVD. CARDIOVASCULAR: RRR. S1, S2. No S4. No murmur RESPIRATORY: No accessory muscle use. Clear to auscultation. Breath sounds equal bilaterally. GASTROINTESTINAL: Abdomen soft, non-tender, nondistended. Left lower quadrant ostomy pink and intact with stool. Periumbilical to suprapubic scarring from prior operation noted. Hypoactive bowel sounds are appreciated : Currently suspended as necrosis over left testes and covered. Scrotal edema positive MUSCULOSKELETAL: Extremities 2+ lower extremity peripheral edema. No obvious deformities. NEUROLOGICAL: Currently sedated on the ventilator on Versed and fentanyl drip. Positive gag. Positive corneal reflex. Withdraws to pain in bilateral upper extremities. Urinary Catheter: Yes Assessment to: Continue Ellis insert reason: Prolonged Immobilization Vascular Central Line Catheter: Yes Assessment to: Continue Date of Insertion: Feb 19, 2017 Line: Central Venous Catheter Side: Left Location: Internal, Jugular A/P Assessment and Plan Neuro/Psych: Diabetic neuropathy Insomnia Currently on fentanyl drip at 100 micrograms an hour and Versed drip at 2 g an hour for sedation/analgesia while intubated Goal RASS -2 Daily sedation vacation Holding home medication Restoril 15 mg night as needed for insomnia CT head 02/18 revealed no acute intracranial findings CV: History of hypertension History dyslipidemia Preop A. fib/no history currently normal sinus rhythm Currently on one half normal saline at 125 cc an hour Currently off all vasopressors/goal to keep MAP greater than 65 Holding home medication of metoprolol 25 mg twice a day lisinopril 10 mg daily for hypertension. Resume when clinically indicated Echocardiogram 2013 revealed EF 50-55%. No regional wall motion abnormality. Mildly dilated left atrium TSH within normal limits. Initial troponin negative. 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 Protonix for GI prophylaxis/home medication Colace/as needed Senokot for bowel regimen Ostomy cares Resume Creon 2 tablets 3 times a day Continue Glucerna 1.5 goal 55 cc an hour postoperatively if not extubated : Postop day #4 Excision and debridement with washout of necrotizing fasciitis of the perineum, scrotum, and bilateral groin region secondary to Necrotizing fasciitis/Tony's Gangrene involving scrotum, perineum, bilateral groin regions Postop day 2 washout Plan to return to the OR on Saturday 02/[address] Cassidy/urology following Endo: Diabetes mellitus Home medications Levemir 10 units twice a day insulin scale insulin. Currently off insulin drip and on sliding scale insulin with Accu-Cheks every 4 hours to maintain euglycemia/medium regimen Renal: Acute kidney injury Monitor urine output Accurate I's and O's Repeat BMP in a.m. Heme: Normocytic anemia Leukocytosis Monitor CBC daily. Follow trends ID: Day #6 vancomycin, clindamycin and Zosyn. Appreciate consultation infectious disease for antibiotic coverage Blood cultures 2 3 strep species, pleomorphic gram-positive rods Wound culture 02/19 Morganella and Proteus . negative acid-fast bacilli and fungal's to date FEN: Hypophosphatemia Replace electrolytes per ICU electrolyte protocol 15 mmol K-Phos IV 1 now Continue one half normal saline with free water 200 every 6 MSK: Right second/fifth toe amputation Left second amputation Diabetic foot ulcers Wound care evaluate and treat Recommended Maxorb 3 days/keep heels elevated off bed Access -Left IJ CVL day #5 placed 02/19 - Right axillary arterial line day #4 placed 3/ Prophylaxis - GI - Protonix - DVT - SCD/heparin subcutaneous Critical Care: The total critical care time was 35 minutes. Time to perform other separately billable procedures was not included in the critical care time. Steven Guzman MD Feb 23, 2017 06:15
[2017-02-23 06:20] LABS: CALCIUM-PROTEIN CORRECTED 8.3 MG/DL (8.5-10.1)
[2017-02-23] MEDS: INSULIN NovoLIN REGULAR SUPPLEMENTAL SCALE SQ SCH ×5 (06:41→20:00)
[2017-02-23] MEDS: ALBUMIN HUMAN 25% 25 GM/100 ML BAGP IV SCH ×2 (06:42→18:42)
[2017-02-23] MEDS: fentaNYL DRIP 250 ML IV SCH (07:34)
[2017-02-23] MEDS: DOCUSATE SODIUM 100 MG CAP PO SCH ×2 (08:15→20:09)
[2017-02-23] MEDS: HEPARIN SODIUM - SQ 10,000 UNITS/ML VIAL SQ SCH ×2 (08:15→20:10)
[2017-02-23] MEDS: PIPERACIL-TAZO 4.5 GM PREMIX 100 ML IV SCH ×2 (08:15→15:42)
[2017-02-23] MEDS: LACTULOSE SYRUP 20 GM/30 ML CUP PO SCH ×4 (08:15→20:09)
[2017-02-23] MEDS: POLYETHYLENE GLYCOL 17 GM PKG PO SCH ×2 (08:15→20:09)
[2017-02-23] MEDS: PANTOPRAZOLE SODIUM 40 MG VIAL IV SCH (08:15)
[2017-02-23] MEDS: SENNOSIDES 8.6 MG TAB PO SCH ×2 (08:15→20:09)
[2017-02-23] MEDS: SODIUM CHLORIDE 0.9% FLUSH 10 ML FLUSH IV FLUSH SCH ×2 (08:16→20:10)
[2017-02-23] MEDS: INSULIN DETEMIR 100 UNITS/ML VIAL SQ SCH ×2 (08:16→20:10)
[2017-02-23] MEDS: LIPASE/PROTEASE/AMYLASE (24,000/76,000/120,000) CAP PO SCH ×3 (08:21→18:41)
[2017-02-23] MEDS: BENEPROTEIN POWDER 1 PACK G-TUBE SCH ×3 (08:40→18:40)
[2017-02-23] MEDS: ARTIFICIAL TEARS OPTH SOLN 15 ML BTL EACH EYE SCH ×3 (08:40→18:40)
[2017-02-23] MEDS: SODIUM CHLORIDE 0.9% FLUSH 10 ML FLUSH IVF SCH (08:40)
[2017-02-23] MEDS ORDERED: POLYETHYLENE GLYCOL 17 GM PKG PO SCH (09:00)
[2017-02-24] VITALS (18 sets, daily range): BP systolic 103–148; BP diastolic 46–64; PULSE 69–82; RESP 12–17; TEMP 98–99.1; O2SAT 99–100
[2017-02-24] MEDS: CLINDAMYCIN INJ 900 MG in SODIUM CHLORIDE 0.9% INJ 100 ML IV SCH ×4 (00:31→23:46)
[2017-02-24] MEDS: VANCOMYCIN INJ 1,500 MG in SODIUM CHLORID 0.9% 500 ML INJ 500 ML IV SCH ×3 (00:32→23:46)
[2017-02-24] MEDS: SODIUM CHLOR 0.45% 1000 ML INJ 1,000 ML IV SCH ×3 (00:32→17:21)
[2017-02-24] MEDS: PIPERACIL-TAZO 4.5 GM PREMIX 100 ML IV SCH ×2 (00:32→08:23)
[2017-02-24] MEDS: POTASSIUM PHOSPHATE/SODIUM PHOSPHATE 250 MG TAB PO SCH ×2 (00:32→05:38)
[2017-02-24] MEDS: INSULIN NovoLIN REGULAR SUPPLEMENTAL SCALE SQ SCH ×7 (04:00→23:46)
[2017-02-24] MEDS: CHLORHEXIDINE GLUCONATE 2 % 1 PACK (2 CLOTHS) TOP SCH (04:25)
[2017-02-24 04:33] LABS: BASOPHIL % 0.2 % (0.0-2.0); EOSINOPHIL # 0.2 TH/MM3 (0-0.4); EOSINOPHIL % 1.7 % (0.0-4.0); HEMATOCRIT 28.7 % (39.0-51.0); LYMPH % 9.1 % (9.0-44.0); LYMPHOCYTE # 1.3 TH/MM3 (1.0-4.8); MEAN CELL VOLUME 87.9 FL (80.0-100.0); MEAN CORPUSCULAR HEMOGLOBIN 28.7 PG (27.0-34.0); MEAN CORPUSCULAR HGB CONC 32.6 % (32.0-36.0); MONO % 6.2 % (0.0-8.0); NEUT % 82.8 % (16.0-70.0); PLATELET COUNT 187 TH/MM3 (150-450); RED BLOOD COUNT 3.26 MIL/MM3 (4.50-5.90); RED CELL DISTRIBUTION WIDTH 14.6 % (11.6-17.2); WHITE BLOOD COUNT 14.5 TH/MM3 (4.0-11.0)
[2017-02-24 04:37] LABS: HEMO FLAGS AUTO DIFF
[2017-02-24] MEDS: RESP: ALBUTEROL 2.5 MG/IPRATROPIUM 0.5 MG NEB (SCH) INH ×4 (05:08→20:14)
[2017-02-24 05:09] LABS: BICARBONATE 31.4 MEQ/L (21.0-32.0); MAGNESIUM 1.9 MG/DL (1.5-2.5); POTASSIUM 3.7 MEQ/L (3.5-5.1)
[2017-02-24 05:24] LABS: CALCIUM-PROTEIN CORRECTED 8.4 MG/DL (8.5-10.1)
[2017-02-24] MEDS: FREE WATER G-TUBE SCH ×5 (05:32→23:46)
[2017-02-24 07:05] LABS: BANDS 6 % (0-6); EOSINOPHILS 3 % (0-4); METAMYELOCYTES 5 % (0-1); MYELOCYTES 2 % (0-0); NEUTROPHIL # MANUAL DIFF 11.7 TH/MM3 (1.8-7.7); POLYS (SEG NEUTROPHILS) 68 % (16-70); WBC DIFF SAMPLE 100
[2017-02-24 07:06] LABS: PLATELET ESTIMATE SMEAR NORMAL (NORMAL); PLATELET MORPHOLOGY NORMAL (NORMAL); SCAN/DIFF FINAL DIFF MANUAL
[2017-02-24] MEDS: BENEPROTEIN POWDER 1 PACK G-TUBE SCH ×3 (08:23→17:21)
[2017-02-24] MEDS: PANTOPRAZOLE SODIUM 40 MG VIAL IV SCH (08:23)
[2017-02-24] MEDS: ARTIFICIAL TEARS OPTH SOLN 15 ML BTL EACH EYE SCH ×3 (08:23→17:21)
[2017-02-24] MEDS: SODIUM CHLORIDE 0.9% FLUSH 10 ML FLUSH IV FLUSH SCH ×2 (08:24→20:17)
[2017-02-24] MEDS: DOCUSATE SODIUM 100 MG CAP PO SCH ×2 (08:24→20:17)
[2017-02-24] MEDS: SODIUM CHLORIDE 0.9% FLUSH 10 ML FLUSH IVF SCH (08:24)
[2017-02-24] MEDS: HEPARIN SODIUM - SQ 10,000 UNITS/ML VIAL SQ SCH ×2 (08:25→20:18)
[2017-02-24] MEDS: LACTULOSE SYRUP 20 GM/30 ML CUP PO SCH ×4 (08:25→20:17)
[2017-02-24] MEDS: POLYETHYLENE GLYCOL 17 GM PKG PO SCH ×2 (08:25→20:17)
[2017-02-24] MEDS: SENNOSIDES 8.6 MG TAB PO SCH ×2 (08:25→20:17)
--- NOTE | 2017-02-24 08:25 | HHI.CCPN ---
Subjective Remarks/Hospital Course 66 year-old male. Date of admission 02/19/2017. Date of consultation 02/19/2017. 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 The patient is unable to give any accurate information due to mentation. Information taken from medical records, nursing staff, documentation. It was indicated by ER documentation that the patient was found in a recliner laying in his yard duration up to 3 days and unable to crawl or walk. It is indicated that the colostomy bag was off the patient and he was reportedly covered in feces. He was noted to have a leukocytosis,, elevated blood sugar and altered mental status. CT abdomen status post revealed gas in the soft tissues of the perineum , scrotum and inguinal regions. Thickening of the scrotum noted. CT head showed no acute things. Chest x-ray negative. Urology was consulted today patient was taken back to the OR for debridement Patient has been started on empiric antibiotics include vancomycin, Zosyn. Blood cultures currently no growth to date. 02/20: Tmax 101.3. Currently 100.3. Adequate urine output overnight 1500 cc. White Blood cell count increased to 30,000 overnight. On norepinephrine @ 2 micro-grams per minute to maintain MAP 02/21: Currently afebrile. Adequate urine output. White blood cell count decreased to 16,000. Off norepinephrine. On Versed and fentanyl drips and does follow commands. 02/22: Currently afebrile. Again adequate urine output. Arousable and follows commands. White blood cell count currently 13,000. On fentanyl drip for pain. 4/2: Afebrile. Arousable on the ventilator and follows commands. Blood cell count trending downward. On fentanyl drip for pain along with Versed for comfort Subjective 02/24: Afebrile. Arousable ventilator falls commands. White blood cell count stable. On fentanyl drip for pain control. Objective Vital Signs Date Time Temp Pulse Resp B/P Pulse Ox O2 Delivery O2 Flow Rate FiO2 02/24/17 06:00 73 02/24/17 05:08 100 30 02/24/17 04:00 98.5 16 108/46 Intake and Output 02/23/17 02/23/17 02/24/17 08:00 16:00 00:00 Intake Total 1663 ml 1802 ml 1609 ml Output Total 700 ml 1300 ml 2050 ml Balance 963 ml 502 ml -441 ml Result Diagram: 02/24/17 0419 02/24/17 0419 Other Results Microbiology Date/Time Procedure Status Source Growth 02/19/17 11:36 Gram Stain - Final Complete Wound Other 02/19/17 11:36 Wound Culture - Final Complete Proteus Mirabilis Morganella Morganii 02/19/17 11:36 Fungal Smear - Final Resulted Wound Other NO FUNGAL ELEMENTS SEEN. 02/19/17 11:36 Fungal Culture Resulted Wound Other Pending 02/19/17 11:36 Acid Fast Stain - Final Resulted Wound Other NO ACID FAST BACILLI SEEN 02/19/17 11:36 Mycobacterial Culture Resulted Wound Other Pending Imaging Last Impressions Chest X-Ray 02/23/17 0600 Signed Impressions: Service Date/Time: Thursday, February 23, 2017 04:22 - CONCLUSION: Mild improvement in the right midlung zone airspace consolidation. Frank Key MD Head CT 02/19/172205 Signed Impressions: Service Date/Time: Sunday, February 19, 2017 00:30 - CONCLUSION: 1. No acute findings. No significant change from September 2016. Jermain Minaya MD Abdomen/Pelvis CT 02/19/172205 Signed Impressions: Service Date/Time: Sunday, February 19, 2017 00:36 - CONCLUSION: #1. 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 #2. Left lower quadrant colostomy. Fluid distention of blind-ending rectal pouch to 8.6 cm. Jermain Minaya MD Objective Remarks GENERAL: 67 year old male, critically ill currently orotracheally intubated SKIN: Caudal/posterior Scrotum currently packed and elevated with no active drainage. Dark necrosis throughout the right scrotum Emaceration of back, posterior thighs bilaterally. Right foot with circumferential ulcer around ankle, ulcerated plantar dorsal aspect around great toe. Left ankle with open ulceration HEAD: Atraumatic. Normocephalic. EYES: Pupils equal and round about 2 mm bilaterally and reactive. No scleral icterus. No injection or drainage. ENT: No nasal bleeding or discharge. Mucous membranes pink and moist. Oropharynx without erythema NECK: Trachea midline. No JVD. CARDIOVASCULAR: RRR. S1, S2. No S4. No murmur RESPIRATORY: No accessory muscle use. Clear to auscultation. Breath sounds equal bilaterally. GASTROINTESTINAL: Abdomen soft, non-tender, nondistended. Left lower quadrant ostomy pink and intact with stool. Periumbilical to suprapubic scarring from prior operation noted. Hypoactive bowel sounds are appreciated : Currently suspended as necrosis over left testes and covered. Scrotal edema positive MUSCULOSKELETAL: Extremities 2+ lower extremity peripheral edema. No obvious deformities. NEUROLOGICAL: Currently sedated on the ventilator on Versed and fentanyl drip. Positive gag. Positive corneal reflex. Withdraws to pain in bilateral upper extremities. Urinary Catheter: Yes Assessment to: Continue Ellis insert reason: Prolonged Immobilization Vascular Central Line Catheter: Yes Assessment to: Continue Date of Insertion: Feb 19, 2017 Line: Central Venous Catheter Side: Left Location: Internal, Jugular A/P Assessment and Plan Neuro/Psych: Diabetic neuropathy Insomnia Currently on fentanyl drip at 100 micrograms an hour and Versed drip at 2 g an hour for sedation/analgesia while intubated Goal RASS -2 Daily sedation vacation Holding home medication Restoril 15 mg night as needed for insomnia CT head 02/18 revealed no acute intracranial findings CV: History of hypertension History dyslipidemia Preop A. fib/no history currently normal sinus rhythm Currently on one half normal saline at 125 cc an hour Currently off all vasopressors/goal to keep MAP greater than 65 Holding home medication of metoprolol 25 mg twice a day lisinopril 10 mg daily for hypertension. Resume when clinically indicated Echocardiogram 2013 revealed EF 50-55%. No regional wall motion abnormality. Mildly dilated left atrium TSH within normal limits. Initial troponin negative. 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 Protonix for GI prophylaxis/home medication Colace/as needed Senokot for bowel regimen Ostomy cares Resume Creon 2 tablets 3 times a day Continue Glucerna 1.5 goal 55 cc an hour postoperatively if not extubated : Postop day #5 Excision and debridement with washout of necrotizing fasciitis of the perineum, scrotum, and bilateral groin region secondary to Necrotizing fasciitis/Tony's Gangrene involving scrotum, perineum, bilateral groin regions Postop day 3 washout Plan to return to the OR on Saturday 02/[address] Cassidy/urology following Endo: Diabetes mellitus Home medications Levemir 10 units twice a day insulin scale insulin. Currently off insulin drip and on sliding scale insulin with Accu-Cheks every 4 hours to maintain euglycemia/medium regimen Renal: Acute kidney injury Monitor urine output Accurate I's and O's Repeat BMP in a.m. Heme: Normocytic anemia Leukocytosis Monitor CBC daily. Follow trends ID: Day #6 vancomycin, clindamycin and Zosyn. Appreciate consultation infectious disease for antibiotic coverage Blood cultures 2 3 strep species, pleomorphic gram-positive rods Wound culture 02/19 Morganella and Proteus . negative acid-fast bacilli and fungal's to date FEN: Hypophosphatemia Replace electrolytes per ICU electrolyte protocol Continue one half normal saline at 1 25 cc an hour with free water 200 every 6 MSK: Right second/fifth toe amputation Left second amputation Diabetic foot ulcers Wound care evaluate and treat Recommended Maxorb 3 days/keep heels elevated off bed Access -Left IJ CVL day #6 placed 02/19 - Right axillary arterial line day #5 placed 3/30 Prophylaxis - GI - Protonix - DVT - SCD/heparin subcutaneous Critical Care: The total critical care time was 35 minutes. Time to perform other separately billable procedures was not included in the critical care time. Steven Guzman MD Feb 24, 2017 08:25 Steven Guzman MD Feb 24, 2017 08:25
[2017-02-24] MEDS: INSULIN DETEMIR 100 UNITS/ML VIAL SQ SCH ×2 (08:42→20:37)
[2017-02-24] MEDS: LIPASE/PROTEASE/AMYLASE (24,000/76,000/120,000) CAP PO SCH ×3 (08:43→17:21)
[2017-02-24] MEDS ORDERED: POTASSIUM PHOSPHATE INJ 15 MMOL in SODIUM CHLORIDE 0.9% INJ 150 ML IV ONE (09:00)
[2017-02-24] MEDS ORDERED: BUPIVACAINE HCL PF 0.5% 30 ML VIAL ONE (10:56)
[2017-02-24] MEDS ORDERED: VANCOMYCIN HCL 1000 MG VIAL ONE ×3 (10:56→13:26)
[2017-02-24] MEDS ORDERED: PAPAVERINE INJ 60 MG/2 ML VIAL ONE (10:57)
[2017-02-24] MEDS ORDERED: PHENYLEPH/NS 1000 MCG/10 ML SYR IV ONE (12:01)
--- NOTE | 2017-02-24 12:46 | HHI.PR ---
Addendum to Inpatient Note Addendum Reason: Additional Documentation Additional Information Case d.w : Patient in OR. discussed case, susceptibility testing. Recs: DC Zosyn IV Start Ceftriaxone IV Continue Clinda IV for toxin neutralization and anaerobic coverage. Continue Vanco IV for now. Follow intraop note Follow intraop cultures Will see patient in am. Shraddha Frances MD Feb 24, 2017 12:46
--- NOTE | 2017-02-24 14:06 | PD.OP ---
Operative Report Date of Surgery: Feb 24, 2017 Preoperative Diagnosis: Necrotizing fascitis with Tony's gangrene Postoperative Diagnosis: Same Procedure: Washout with debridement of perineal and scrotal wound with placement of packing Anesthesia: KEILA Surgeon: Norbert Cassidy Refrigeration Systems Installer(s): None Resident Surgeon: None Operation and Findings: 67-year-old male returns to the OR for debridement and washout of perineal and scrotal wound with packing change. He was intubated and brought from the surgical intensive care unit. Displaced on the operating table in the dorsal lithotomy position. He was prepped and draped in usual sterile fashion preprocedure antibiotics were given. A few areas of necrotic tissue were identified and these were cut away with the Metzenbaum scissors. The pulse dowel maker system with 3 L bag of normal saline with 1 g of vancomycin was utilized to wash out the wound. Any remaining areas that appeared nonviable were then removed again with the Metzenbaum scissors. Initially, I had hoped to be able to close the wound, however, due to the large amount of open space, I was not able to close the wound. Therefore, 3 and 6 inch Alfredo were used to pack the wound and the testicles were wrapped and left outside the wound. Small openings in the skin on the lateral left side were then closed with interrupted 3-0 Vicryl sutures. Patient was awoken and transferred out of the OR back to the SICU. He will need to return in 48 hours for another washout and debridement with dressing changes and will attempt possible VAC placement. He tolerated the procedure well. Norbert Cassidy DO Feb 24, 2017 14:06
[2017-02-24] MEDS: cefTRIAXone INJ 2,000 MG in SODIUM CHLORIDE 0.9% INJ 100 ML IV SCH (14:47)
[2017-02-24] MEDS: fentaNYL DRIP 250 ML IV SCH (20:18)
[2017-02-25] VITALS (20 sets, daily range): BP systolic 100–148; BP diastolic 46–68; PULSE 69–93; RESP 12–17; TEMP 98.5–99.1; O2SAT 98–100
[2017-02-25] MEDS: SODIUM CHLOR 0.45% 1000 ML INJ 1,000 ML IV SCH ×3 (02:00→23:45)
[2017-02-25 03:17] LABS: AUTOMATED NEUTROPHIL # 16.4 TH/MM3 (1.8-7.7); BASOPHIL % 0.3 % (0.0-2.0); EOSINOPHIL # 0.2 TH/MM3 (0-0.4); EOSINOPHIL % 1.2 % (0.0-4.0); LYMPH % 8.2 % (9.0-44.0); LYMPHOCYTE # 1.6 TH/MM3 (1.0-4.8); MEAN CELL VOLUME 87.3 FL (80.0-100.0); MEAN CORPUSCULAR HGB CONC 33.2 % (32.0-36.0); NEUT % 83.3 % (16.0-70.0); PLATELET COUNT 238 TH/MM3 (150-450); RED BLOOD COUNT 3.43 MIL/MM3 (4.50-5.90); RED CELL DISTRIBUTION WIDTH 14.2 % (11.6-17.2); WHITE BLOOD COUNT 19.6 TH/MM3 (4.0-11.0)
[2017-02-25 03:18] LABS: HEMO FLAGS AUTO DIFF
[2017-02-25] MEDS: RESP: ALBUTEROL 2.5 MG/IPRATROPIUM 0.5 MG NEB (SCH) INH ×4 (03:30→20:33)
[2017-02-25] MEDS: INSULIN NovoLIN REGULAR SUPPLEMENTAL SCALE SQ SCH ×5 (04:00→20:00)
[2017-02-25] MEDS: CHLORHEXIDINE GLUCONATE 2 % 1 PACK (2 CLOTHS) TOP SCH (04:00)
[2017-02-25 04:05] LABS: BANDS 14 % (0-6); EOSINOPHILS 2 % (0-4); METAMYELOCYTES 3 % (0-1); MYELOCYTES 1 % (0-0); NEUTROPHIL # MANUAL DIFF 17.1 TH/MM3 (1.8-7.7); POLYS (SEG NEUTROPHILS) 69 % (16-70); SCAN/DIFF FINAL DIFF MANUAL; WBC DIFF SAMPLE 100
[2017-02-25 04:06] LABS: DOHLE BODIES PRESENT (NONE SEEN); PLATELET ESTIMATE SMEAR NORMAL (NORMAL); PLATELET MORPHOLOGY NORMAL (NORMAL); STOMATOCYTES 1+ (NORMAL); TOXIC GRANULATION 1+ (NORMAL)
[2017-02-25 04:12] LABS: MAGNESIUM 1.7 MG/DL (1.5-2.5); POTASSIUM 3.8 MEQ/L (3.5-5.1)
[2017-02-25 04:26] LABS: CALCIUM-PROTEIN CORRECTED 8.3 MG/DL (8.5-10.1)
[2017-02-25] MEDS: FREE WATER G-TUBE SCH ×4 (04:52→23:46)
--- NOTE | 2017-02-25 05:41 | RADRPT ---
EXAM DATE/TIME: 02/25/2017 04:15 [facility] COMPARISON: CHEST SINGLE AP, February 23, 2017, 4:22. INDICATIONS : Respiratory distress. MEDICAL HISTORY : Hypertension. Diabetes mellitus type II. Atrial fibrillation. SURGICAL HISTORY : None. ENCOUNTER: Subsequent ACUITY: 4 - 6 days PAIN SCORE: Non-responsive. LOCATION: Bilateral chest FINDINGS: 2 portable frontal views of the chest show an endotracheal tube with the tip 3 cm proximal to tashia. Left internal jugular vein central venous line. Tip of the nasogastric tube at the GE junction. Codi r lungs. No effusions. Heart is normal in size. CONCLUSION: Clear lungs. Khanh Mata Jr., MD on February 25, 2017 at 5:38 Board Certified Radiologist. This report was verified electronically.
[2017-02-25] MEDS: SENNOSIDES 8.6 MG TAB PO SCH ×2 (09:00→20:35)
[2017-02-25] MEDS: BENEPROTEIN POWDER 1 PACK G-TUBE SCH ×3 (09:00→16:58)
[2017-02-25] MEDS: ARTIFICIAL TEARS OPTH SOLN 15 ML BTL EACH EYE SCH ×3 (09:00→16:57)
[2017-02-25] MEDS: SODIUM CHLORIDE 0.9% FLUSH 10 ML FLUSH IV FLUSH SCH ×2 (09:00→20:37)
[2017-02-25] MEDS: LACTULOSE SYRUP 20 GM/30 ML CUP PO SCH ×4 (09:00→20:35)
[2017-02-25] MEDS: INSULIN DETEMIR 100 UNITS/ML VIAL SQ SCH ×2 (09:00→20:36)
[2017-02-25] MEDS: DOCUSATE SODIUM 100 MG CAP PO SCH ×2 (09:00→20:35)
[2017-02-25] MEDS: LIPASE/PROTEASE/AMYLASE (24,000/76,000/120,000) CAP PO SCH ×3 (09:00→16:58)
[2017-02-25] MEDS: POLYETHYLENE GLYCOL 17 GM PKG PO SCH ×2 (09:00→20:35)
[2017-02-25] MEDS: SODIUM CHLORIDE 0.9% FLUSH 10 ML FLUSH IVF SCH (09:00)
--- NOTE | 2017-02-25 09:41 | HHI.CCPN ---
Subjective Remarks/Hospital Course 66 year-old male. Date of admission 02/19/2017. Date of consultation 02/19/2017. 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 The patient is unable to give any accurate information due to mentation. Information taken from medical records, nursing staff, documentation. It was indicated by ER documentation that the patient was found in a recliner laying in his yard duration up to 3 days and unable to crawl or walk. It is indicated that the colostomy bag was off the patient and he was reportedly covered in feces. He was noted to have a leukocytosis,, elevated blood sugar and altered mental status. CT abdomen status post revealed gas in the soft tissues of the perineum , scrotum and inguinal regions. Thickening of the scrotum noted. CT head showed no acute things. Chest x-ray negative. Urology was consulted today patient was taken back to the OR for debridement Patient has been started on empiric antibiotics include vancomycin, Zosyn. Blood cultures currently no growth to date. 02/20: Tmax 101.3. Currently 100.3. Adequate urine output overnight 1500 cc. White Blood cell count increased to 30,000 overnight. On norepinephrine @ 2 micro-grams per minute to maintain MAP 02/21: Currently afebrile. Adequate urine output. White blood cell count decreased to 16,000. Off norepinephrine. On Versed and fentanyl drips and does follow commands. 02/22: Currently afebrile. Again adequate urine output. Arousable and follows commands. White blood cell count currently 13,000. On fentanyl drip for pain. /2: Afebrile. Arousable on the ventilator and follows commands. Blood cell count trending downward. On fentanyl drip for pain along with Versed for comfort Subjective 02/24: Afebrile. Arousable ventilator falls commands. White blood cell count stable. On fentanyl drip for pain control. 02/25: Glucose control acceptable. CXR clear with small wily effusions. Opens eyes to voice. Anticipate return to OR [facility] for plastic surgery. Objective Vital Signs Date Time Temp Pulse Resp B/P Pulse Ox O2 Delivery O2 Flow Rate FiO2 02/25/17 08:59 100 30 02/25/17 06:00 74 02/25/17 04:00 98.6 14 124/58 Intake and Output 02/24/17 02/24/17 02/25/17 08:00 16:00 00:00 Intake Total 1283 ml 1038 ml 1397 ml Output Total 1800 ml 1300 ml 1750 ml Balance -517 ml -262 ml -353 ml Result Diagram: 02/25/17 0300 02/25/17 0300 Imaging Last Impressions Chest X-Ray 02/23/17 0600 Signed Impressions: Service Date/Time: Thursday, February 23, 2017 04:22 - CONCLUSION: Mild improvement in the right midlung zone airspace consolidation. Frank Key MD Head CT 02/19/172205 Signed Impressions: Service Date/Time: Sunday, February 19, 2017 00:30 - CONCLUSION: 1. No acute findings. No significant change from September 2016. Jermain Minaya MD Abdomen/Pelvis CT 02/19/172205 Signed Impressions: Service Date/Time: Sunday, February 19, 2017 00:36 - CONCLUSION: #1. 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 #2. Left lower quadrant colostomy. Fluid distention of blind-ending rectal pouch to 8.6 cm. Jermain Minaya MD Objective Remarks GENERAL: 67 year old male, critically ill currently orotracheally intubated SKIN: Caudal/posterior Scrotum currently packed and elevated with no active drainage. Dark necrosis throughout the right scrotum Emaceration of back, posterior thighs bilaterally. Right foot with circumferential ulcer around ankle, ulcerated plantar dorsal aspect around great toe. Left ankle with open ulceration HEAD: Atraumatic. Normocephalic. EYES: Pupils equal and round about 2 mm bilaterally and reactive. No scleral icterus. No injection or drainage. ENT: No nasal bleeding or discharge. Mucous membranes pink and moist. Oropharynx without erythema NECK: Trachea midline. No JVD. CARDIOVASCULAR: RRR. S1, S2. No S4. No murmur RESPIRATORY: No accessory muscle use. Clear to auscultation. Breath sounds equal bilaterally. GASTROINTESTINAL: Abdomen soft, non-tender, nondistended. Left lower quadrant ostomy pink and intact with stool. Periumbilical to suprapubic scarring from prior operation noted. Hypoactive bowel sounds are appreciated : Currently suspended as necrosis over left testes and covered. Scrotal edema positive MUSCULOSKELETAL: Extremities 2+ lower extremity peripheral edema. No obvious deformities. NEUROLOGICAL: Currently sedated on the ventilator on Versed and fentanyl drip. Positive gag. Positive corneal reflex. Withdraws to pain in bilateral upper extremities. Date of Insertion: Feb 19, 2017 Line: Central Venous Catheter Side: Left Location: Internal, Jugular A/P Assessment and Plan Neuro/Psych: Diabetic neuropathy Insomnia Currently on fentanyl drip at 100 micrograms an hour and Versed drip at 2 g an hour for sedation/analgesia while intubated Goal RASS -2 Daily sedation vacation Holding home medication Restoril 15 mg night as needed for insomnia CT head 02/18 revealed no acute intracranial findings CV: History of hypertension History dyslipidemia Preop A. fib/no history currently normal sinus rhythm Currently on one half normal saline at 125 cc an hour Currently off all vasopressors/goal to keep MAP greater than 65 Holding home medication of metoprolol 25 mg twice a day lisinopril 10 mg daily for hypertension. Resume when clinically indicated Echocardiogram 2013 revealed EF 50-55%. No regional wall motion abnormality. Mildly dilated left atrium TSH within normal limits. Initial troponin negative. 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 Protonix for GI prophylaxis/home medication Colace/as needed Senokot for bowel regimen Ostomy cares Resume Creon 2 tablets 3 times a day Continue Glucerna 1.5 goal 55 cc an hour postoperatively if not extubated : Postop day #5 Excision and debridement with washout of necrotizing fasciitis of the perineum, scrotum, and bilateral groin region secondary to Necrotizing fasciitis/Tony's Gangrene involving scrotum, perineum, bilateral groin regions Postop day 3 washout Plan to return to the OR on Saturday 02/[address] Cassidy/urology following Endo: Diabetes mellitus Home medications Levemir 10 units twice a day insulin scale insulin. Currently off insulin drip and on sliding scale insulin with Accu-Cheks every 4 hours to maintain euglycemia/medium regimen Renal: Acute kidney injury Monitor urine output Accurate I's and O's Repeat BMP in a.m. Heme: Normocytic anemia Leukocytosis Monitor CBC daily. Follow trends ID: Day #7 vancomycin, clindamycin and Zosyn. Appreciate consultation infectious disease for antibiotic coverage Blood cultures 2 02/18 strep species, pleomorphic gram-positive rods Wound culture 02/19 Morganella and Proteus . negative acid-fast bacilli and fungal's to date FEN: Hypophosphatemia Replace electrolytes per ICU electrolyte protocol Continue one half normal saline at 1 25 cc an hour with free water 200 every 6 MSK: Right second/fifth toe amputation Left second amputation Diabetic foot ulcers Wound care evaluate and treat Recommended Maxorb 3 days/keep heels elevated off bed Access -Left IJ CVL day #7 placed 02/19 - Right axillary arterial line day #6 placed 02/20 Prophylaxis - GI - Protonix - DVT - SCD/heparin subcutaneous Overall impression: Vasopressor dependent sepsis requiring additional surgery. Unable to wean ventilator. Critical Care 34 mins Dangelo Starks MD Feb 25, 2017 09:41
[2017-02-25] MEDS: PANTOPRAZOLE SODIUM 40 MG VIAL IV SCH (09:47)
[2017-02-25] MEDS: HEPARIN SODIUM - SQ 10,000 UNITS/ML VIAL SQ SCH ×2 (09:47→20:36)
[2017-02-25] MEDS: CLINDAMYCIN INJ 900 MG in SODIUM CHLORIDE 0.9% INJ 100 ML IV SCH ×2 (09:56→16:32)
--- NOTE | 2017-02-25 11:34 | HHI.PR ---
Subjective Patient symptoms today Pt seen and examined; intubated and sedated. Objective Vital Signs Vital Signs Date Time Temp Pulse Resp B/P Pulse Ox O2 Delivery O2 Flow Rate FiO2 02/25/17 09:51 30 02/25/17 09:51 99 30 02/25/17 08:59 100 30 02/25/17 06:00 74 02/25/17 04:00 30 02/25/17 04:00 78 02/25/17 04:00 98.6 80 14 100 124/58 02/25/17 03:32 100 30 02/25/17 02:00 77 02/25/17 00:13 100 30 02/25/17 00:00 98.6 81 13 100 106/52 02/25/17 00:00 30 02/25/17 00:00 85 02/24/17 22:00 82 02/24/17 20:21 100 30 02/24/17 20:00 79 02/24/17 20:00 98.8 76 13 100 103/53 02/24/17 20:00 30 02/24/17 18:03 100 30 02/24/17 18:00 75 02/24/17 16:00 30 02/24/17 16:00 75 02/24/17 16:00 98.8 74 12 100 148/64 02/24/17 14:00 76 02/24/17 12:20 100 100 02/24/17 12:00 98.9 74 17 100 126/54 02/24/17 12:00 30 02/24/17 12:00 73 Intake & Output 02/25/17 02/25/17 07:00 19:00 Intake Total 3059 ml Output Total 2400 ml Balance 659 ml IV Total 2702 ml Tube Feeding 357 ml Output Urine Total 2200 ml Stool Total 200 ml Tube Feeding Residual Discard 0 ml Result Diagram: 02/25/17 0300 02/25/17 0300 Imaging Last 24 hours Impressions Chest X-Ray 02/25/17 0600 Signed Impressions: Service Date/Time: Saturday, February 25, 2017 04:15 - CONCLUSION: Clear lungs. Khanh Mata Jr., MD Objective Remarks Abd:soft,nt,nd Wound: dressing intact and reinforced Ellis: urine clear 02/25 Abd:soft,nt,nd Wound: dressings intact; aneta in place Ellis: urine clear Medications and IVs Current Medications Medications (Trade) Dose Ordered Sig/Jeremias Route Start Time Stop Time Status Last Admin (NS Flush) 2 ml UNSCH PRN IV FLUSH 02/19/17 00:15 (NS Flush) 2 ml BID IV FLUSH 02/19/17 09:00 02/24/17 20:17 (Dulcolax Supp) 10 mg DAILY PRN RECTAL 02/19/17 00:15 (Heparin Inj) 5,000 units Q12HR SQ 02/19/17 09:00 02/25/17 09:47 Naloxone HCl 0.4 mg 0.4 mg UNSCH PRN IV 02/19/17 00:15 Pharmacy Profile Note 0 ml @ 0 mls/hr UNSCH OTHER 02/19/17 00:15 Vancomycin HCl 1500 mg/Sodium Chloride 515 ml @ 250 mls/hr Q12H IV 02/19/17 12:00 02/24/17 23:46 (Cleocin Inj/NS Inj) 106 ml @ 212 mls/hr Q8H IV 02/19/17 16:00 02/25/17 09:56 (Tylenol) 650 mg Q6H PRN PO 02/19/17 15:00 02/19/17 21:38 (Protonix Inj) 40 mg DAILY IV 02/20/17 09:00 02/25/17 09:47 (Tears Naturale Opth Soln) 1 drop TID EACH EYE 02/19/17 18:00 02/25/17 09:00 (Zofran Inj) 4 mg Q6H PRN IV 02/19/17 15:00 (Colace) 100 mg BID PO 02/19/17 21:00 02/24/17 20:17 Miscellaneous Information 1 Q361D XX 02/19/17 15:00 02/19/17 15:00 (Chlorhexidine 2% Cloth) Taper DAILY@04 TOP 02/20/17 04:00 02/16/18 03:59 02/24/17 04:25 Chlorhexidine Gluconate 3 pack 3 pack UNSCH PRN TOP 02/19/17 15:00 Fentanyl Citrate 250 ml @ 0 mls/hr TITRATE IV 02/19/17 15:00 02/24/17 20:18 Potassium Chloride 100 ml @ 50 mls/hr Q2H PRN IV 02/19/17 15:00 02/20/17 09:30 Potassium Chloride 100 ml @ 50 mls/hr Q2H PRN IV 02/19/17 15:00 Potassium Chloride 100 ml @ 25 mls/hr UNSCH PRN IV 02/19/17 15:00 Potassium Chloride 100 ml @ 50 mls/hr Q2H PRN IV 02/19/17 15:00 (Magnesium Sulfate Inj/NS Inj) 100 ml @ 50 mls/hr UNSCH PRN IV 02/19/17 15:00 Magnesium Oxide 800 mg 800 mg UNSCH PRN PO 02/19/17 15:00 (Magnesium Sulfate Inj/NS Inj) 100 ml @ 50 mls/hr UNSCH PRN IV 02/19/17 15:00 02/22/17 09:20 Potassium Phosphate 2000 mg 2,000 mg Q4H PRN PO 02/19/17 15:00 (Sodium Phosphate Inj/NS 250 ml Inj) 250 ml @ 42 mls/hr UNSCH PRN IV 02/19/17 15:00 02/22/17 09:21 Potassium Phosphate 2000 mg 2,000 mg UNSCH PRN PO/TUBE 02/19/17 15:00 Potassium Phosphate 30 mmol/ Sodium Chloride 260 ml @ 42 mls/hr UNSCH PRN IV 02/19/17 15:00 (Versed Inj) 100 ml @ 0 mls/hr TITRATE IV 02/19/17 15:00 02/21/17 21:25 (NS Flush) DAILY IVF 02/20/17 09:00 02/25/17 09:00 (NS Flush) UNSCH PRN IVF 02/19/17 15:45 Amylase/Lipase/ Protease 2 cap 2 cap TID PO 02/19/17 18:00 02/24/17 17:21 (Levophed Inj/NS 250 ml Inj) 250 ml @ 0 mls/hr TITRATE IV 02/19/17 21:00 02/20/17 22:48 (Brethine Inj) 1 mg UNSCH PRN SQ 02/19/17 21:00 (Free Water) VOLUME: 200 ML Q6HR G-TUBE 02/20/17 12:00 02/25/17 04:52 Dextrose 25 ml 25 ml UNSCH PRN IV PUSH 02/20/17 07:15 (1/2 NS 1000 ml Inj) 1,000 ml @ 125 mls/hr Q8H IV 02/20/17 18:00 02/25/17 09:52 (Glucagon Inj) 1 mg UNSCH PRN OTHER 02/20/17 18:45 (Beneprotein Powder) 1 pack TID G-TUBE 02/21/17 18:00 02/25/17 09:00 (Levemir Inj) 10 units Q12HR SQ 02/22/17 21:00 02/25/17 09:00 (Senokot) 17.2 mg Q12HR PO 02/23/17 00:15 02/24/17 20:17 (Lactulose Liq) 30 ml QID PO 02/22/17 18:00 02/24/17 20:17 (NovoLIN R SUPPLEMENTAL SCALE) 1 Q4HR SQ 02/22/17 16:00 02/23/17 13:59 Polyethylene Glycol 17 gm 17 gm Q12HR PO 02/23/17 09:00 02/24/17 20:17 (Rocephin Inj/NS Inj) 100 ml @ 200 mls/hr Q24H IV 02/24/17 14:00 02/24/17 14:47 Assessment and Plan Assessment and Plan 66 y.o male with necrotizing fascitis s/p debridement For washout in AM 02/25 66 y.o male with necrotizing fascitis s/p debridement with washout Plastics consult to help with closure For washout in Norbert Tang DO Feb 25, 2017 11:34
[2017-02-25] MEDS ORDERED: PHARMACY ORDERED LAB ONE (11:45)
[2017-02-25] MEDS: fentaNYL DRIP 250 ML IV SCH ×2 (12:45→23:47)
[2017-02-25] MEDS ORDERED: VANCOMYCIN INJ 1,250 MG in SODIUM CHLOR 0.9% 250 ML INJ 250 ML IV SCH (14:00)
[2017-02-25] MEDS: cefTRIAXone INJ 2,000 MG in SODIUM CHLORIDE 0.9% INJ 100 ML IV SCH (14:36)
--- NOTE | 2017-02-25 16:58 | HHI.IDPN ---
Note Infectious Disease Note ID Xcover for . Chart reviewed. 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 Admitted with altered mental status along with severe dehydration. A CT scan of the abdomen and pelvis showed gas accumulation in the soft tissue of the perineum, scrotum and inguinal region associated with marked scrotal wall thickening characteristic of necrotizing type of infection. The patient was evaluated by urology and he was taken to surgery and underwent debridement of necrotic tissue and there was also purulent drainage as well. Overnight events reviewed with RN. Patient is sedated on the vent. Off levophed. Afebrile. Not much resp secretions No diarrhea. UO adequate PAST MEDICAL HISTORY 1. Diabetes mellitus. 2. Hypertension. 3. Atrial fibrillation. 4. History of megacolon. 5. Arthritis. 6. Tonsillectomy. 7. Colostomy. 8. Oral surgery. 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 ALLERGIES FLOMAX. ANTIBIOTICS: 1. Vancomycin. 2. Piperacillin/tazobactam. 3. Clindamycin. SOCIAL HISTORY Unable to obtain. REVIEW OF SYSTEMS Unable to obtain. OBJECTIVE: Vital Signs Date Time Temp Pulse Resp B/P Pulse Ox O2 Delivery O2 Flow Rate FiO2 02/25/17 16:27 100 30 02/25/17 14:00 69 02/25/17 12:00 78 02/25/17 12:00 98.9 78 14 100/51 100 02/25/17 12:00 30 02/25/17 11:47 100 30 02/25/17 10:00 77 02/25/17 09:51 30 02/25/17 09:51 99 30 02/25/17 08:59 100 30 02/25/17 08:00 30 02/25/17 08:00 98.6 73 12 106/46 100 02/25/17 08:00 73 02/25/17 06:00 74 02/25/17 04:00 30 02/25/17 04:00 78 02/25/17 04:00 98.6 80 14 100 124/58 02/25/17 03:32 100 30 02/25/17 02:00 77 02/25/17 00:13 100 30 02/25/17 00:00 98.6 81 13 100 106/52 02/25/17 00:00 30 02/25/17 00:00 85 02/24/17 22:00 82 02/24/17 20:21 100 30 02/24/17 20:00 79 02/24/17 20:00 98.8 76 13 100 103/53 02/24/17 20:00 30 02/24/17 18:03 100 30 02/24/17 18:00 75 Laboratory Tests Laboratory Tests Test 02/25/17 02/25/17 03:00 11:35 White Blood Count 19.6 TH/MM3 Red Blood Count 3.43 MIL/MM3 Hemoglobin 10.0 GM/DL Hematocrit 30.0 % Mean Corpuscular Volume 87.3 FL Mean Corpuscular Hemoglobin 29.0 PG Mean Corpuscular Hemoglobin 33.2 % Concent Red Cell Distribution Width 14.2 % Platelet Count 238 TH/MM3 Mean Platelet Volume 8.6 FL Neutrophils (%) (Auto) 83.3 % Lymphocytes (%) (Auto) 8.2 % Monocytes (%) (Auto) 7.0 % Eosinophils (%) (Auto) 1.2 % Basophils (%) (Auto) 0.3 % Neutrophils # (Auto) 16.4 TH/MM3 Lymphocytes # (Auto) 1.6 TH/MM3 Monocytes # (Auto) 1.4 TH/MM3 Eosinophils # (Auto) 0.2 TH/MM3 Basophils # (Auto) 0.0 TH/MM3 CBC Comment AUTO DIFF Differential Total Cells 100 Counted Neutrophils % (Manual) 69 % Band Neutrophils % 14 % Lymphocytes % 10 % Monocytes % 1 % Eosinophils % 2 % Neutrophils # (Manual) 17.1 TH/MM3 Metamyelocytes 3 % Myelocytes 1 % Differential Comment FINAL DIFF MANUAL Toxic Granulation 1+ Dohle Bodies PRESENT Platelet Estimate NORMAL Platelet Morphology Comment NORMAL Stomatocytes 1+ Sodium Level 141 MEQ/L Potassium Level 3.8 MEQ/L Chloride Level 105 MEQ/L Carbon Dioxide Level 30.0 MEQ/L Anion Gap 6 MEQ/L Blood Urea Nitrogen 9 MG/DL Creatinine 0.62 MG/DL Estimat Glomerular Filtration 129 ML/MIN Rate Random Glucose 131 MG/DL Calcium Level 7.4 MG/DL Protein Corrected Calcium 8.3 MG/DL Phosphorus Level 2.5 MG/DL Magnesium Level 1.7 MG/DL Total Creatine Kinase 24 U/L Total Protein 5.4 GM/DL Vancomycin Level Trough 21.3 MCG/ML Test 02/20/17 02/21/17 03:05 03:40 White Blood Count 30.6 TH/MM3 16.8 TH/MM3 Red Blood Count 4.01 MIL/MM3 3.52 MIL/MM3 Hemoglobin 11.8 GM/DL 10.2 GM/DL Hematocrit 35.5 % 31.3 % Mean Corpuscular Volume 88.4 FL 88.9 FL Mean Corpuscular Hemoglobin 29.3 PG 29.0 PG Mean Corpuscular Hemoglobin 33.2 % 32.6 % Concent Red Cell Distribution Width 14.8 % 14.8 % Platelet Count 291 TH/MM3 168 TH/MM3 Mean Platelet Volume 8.3 FL 8.6 FL Neutrophils (%) (Auto) 86.3 % 82.5 % Lymphocytes (%) (Auto) 5.2 % 9.0 % Monocytes (%) (Auto) 8.1 % 7.8 % Eosinophils (%) (Auto) 0.0 % 0.6 % Basophils (%) (Auto) 0.4 % 0.1 % Neutrophils # (Auto) 26.4 TH/MM3 13.9 TH/MM3 Lymphocytes # (Auto) 1.6 TH/MM3 1.5 TH/MM3 Monocytes # (Auto) 2.5 TH/MM3 1.3 TH/MM3 Eosinophils # (Auto) 0.0 TH/MM3 0.1 TH/MM3 Basophils # (Auto) 0.1 TH/MM3 0.0 TH/MM3 CBC Comment AUTO DIFF AUTO DIFF Differential Total Cells 100 100 Counted Neutrophils % (Manual) 59 % 77 % Band Neutrophils % 21 % 7 % Lymphocytes % 9 % 9 % Monocytes % 9 % 2 % Neutrophils # (Manual) 25.1 TH/MM3 14.8 TH/MM3 Myelocytes 2 % Differential Comment FINAL DIFF FINAL DIFF MANUAL MANUAL Dohle Bodies PRESENT Platelet Estimate NORMAL NORMAL Platelet Morphology Comment NORMAL NORMAL Red Cell Morphology Comment NORMAL Eosinophils % 1 % Metamyelocytes 4 % Microbiology Date/Time Procedure Status Source Growth 02/18/17 22:35 Aerobic Blood Culture - Preliminary Resulted Blood Peripheral Streptococcus Species Pleomorphic Gram Positive Rods 02/18/17 22:35 Anaerobic Blood Culture - Final Resulted Viridans Streptococcus Grp 02/18/17 22:40 Aerobic Blood Culture - Preliminary Resulted Blood Peripheral NO GROWTH IN 3 DAYS 02/18/17 22:40 Anaerobic Blood Culture - Preliminary Resulted Viridans Streptococcus Grp 02/19/17 11:36 Gram Stain - Final Resulted Wound Other 02/19/17 11:36 Wound Culture - Preliminary Resulted Gram Negative Jean-Pierre 02/19/17 11:36 Acid Fast Stain - Final Resulted Wound Other NO ACID FAST BACILLI SEEN 02/19/17 11:36 Mycobacterial Culture Resulted Wound Other Pending 02/19/17 11:36 Fungal Smear - Final Resulted Wound Other NO FUNGAL ELEMENTS SEEN. 02/19/17 11:36 Fungal Culture Resulted Wound Other Pending 02/19/17 11:36 Gram Stain - Final Resulted Wound Other 02/19/17 11:36 Wound Culture - Preliminary Resulted Gram Negative Jean-Pierre 02/19/17 11:36 Acid Fast Stain - Final Resulted Wound Other NO ACID FAST BACILLI SEEN 02/19/17 11:36 Mycobacterial Culture Resulted Wound Other Pending 02/19/17 11:36 Fungal Smear - Final Resulted Wound Other NO FUNGAL ELEMENTS SEEN. 02/19/17 11:36 Fungal Culture Resulted Wound Other Pending PHYSICAL EXAMINATION GENERAL: On the ventilator and unresponsive. He is sedated. HEENT: The head is atraumatic. Extraocular movements cannot be fully assessed since the patient is sedated on the ventilator. Oropharynx intubated. Moist oral mucosa. NECK: No swelling or adenopathy. LUNGS: Diminished breath sounds throughout. HEART: Irregular rate and rhythm. No murmurs, rubs or gallops. ABDOMEN: Bowel sounds present, soft, no tenderness appreciated. : The scrotum is post debridement. SKIN: No rash. The patient has multiple excoriated areas on the leg. 2+ edema of the legs and thighs. NEURO: Sedated. PSYCH: Unable to assess. IMPRESSION Severe Sepsis present on admission. Strep bacteremia Fourniers gangrene/necrotizing fasciitis of scrotum, perineum and inguinal region. strep viridans, gram positive jean-pierre and gram neg jean-pierre. Acute kidney disease. renal function improved. Leukocytosis secondary to infection. WBC improved. RECOMMENDATIONS 1. DC IV vancomycin. 2. DC clindamycin. 3. Continue Ceftriaxone IV 4. Follow cultures 5. follow clinically. Shraddha Frances MD Feb 25, 2017 16:57
[2017-02-25] MEDS: metroNIDAZOLE 500 MG TAB PO SCH ×2 (18:15→21:55)
[2017-02-26] VITALS (15 sets, daily range): BP systolic 114–144; BP diastolic 46–64; PULSE 70–90; RESP 11–14; TEMP 98.4–99.8; O2SAT 98–100
[2017-02-26] MEDS: SODIUM CHLOR 0.45% 1000 ML INJ 1,000 ML IV SCH ×3 (02:00→17:45)
[2017-02-26] MEDS: RESP: ALBUTEROL 2.5 MG/IPRATROPIUM 0.5 MG NEB (SCH) INH ×4 (03:51→19:46)
[2017-02-26] MEDS: INSULIN NovoLIN REGULAR SUPPLEMENTAL SCALE SQ SCH ×6 (04:00→20:00)
[2017-02-26 05:21] LABS: AUTOMATED NEUTROPHIL # 15.4 TH/MM3 (1.8-7.7); BASOPHIL # 0.1 TH/MM3 (0-0.2); BASOPHIL % 0.4 % (0.0-2.0); EOSINOPHIL # 0.2 TH/MM3 (0-0.4); EOSINOPHIL % 1.1 % (0.0-4.0); HEMATOCRIT 28.6 % (39.0-51.0); LYMPH % 9.1 % (9.0-44.0); LYMPHOCYTE # 1.7 TH/MM3 (1.0-4.8); MEAN CELL VOLUME 86.4 FL (80.0-100.0); MEAN CORPUSCULAR HEMOGLOBIN 29.1 PG (27.0-34.0); MEAN CORPUSCULAR HGB CONC 33.7 % (32.0-36.0); MONO % 7.5 % (0.0-8.0); NEUT % 81.9 % (16.0-70.0); PLATELET COUNT 222 TH/MM3 (150-450); RED BLOOD COUNT 3.31 MIL/MM3 (4.50-5.90); RED CELL DISTRIBUTION WIDTH 14.4 % (11.6-17.2); WHITE BLOOD COUNT 18.8 TH/MM3 (4.0-11.0)
[2017-02-26 05:36] LABS: HEMO FLAGS AUTO DIFF
[2017-02-26 05:44] LABS: BICARBONATE 33.4 MEQ/L (21.0-32.0)
[2017-02-26] MEDS: FREE WATER G-TUBE SCH ×3 (06:00→17:45)
[2017-02-26] MEDS: metroNIDAZOLE 500 MG TAB PO SCH ×3 (06:06→22:00)
[2017-02-26] MEDS: CHLORHEXIDINE GLUCONATE 2 % 1 PACK (2 CLOTHS) TOP SCH (06:22)
[2017-02-26 07:02] LABS: BANDS 4 % (0-6); EOSINOPHILS 1 % (0-4); METAMYELOCYTES 5 % (0-1); MYELOCYTES 4 % (0-0); NEUTROPHIL # MANUAL DIFF 16.7 TH/MM3 (1.8-7.7); POLYS (SEG NEUTROPHILS) 76 % (16-70); WBC DIFF SAMPLE 100
[2017-02-26 07:04] LABS: PLATELET ESTIMATE SMEAR NORMAL (NORMAL); PLATELET MORPHOLOGY NORMAL (NORMAL); SCAN/DIFF FINAL DIFF MANUAL; STOMATOCYTES 1+ (NORMAL)
[2017-02-26] MEDS: DOCUSATE SODIUM 100 MG CAP PO SCH ×2 (09:00→21:00)
[2017-02-26] MEDS: INSULIN DETEMIR 100 UNITS/ML VIAL SQ SCH ×2 (09:00→21:00)
[2017-02-26] MEDS: LIPASE/PROTEASE/AMYLASE (24,000/76,000/120,000) CAP PO SCH ×4 (09:00→17:46)
[2017-02-26] MEDS: BENEPROTEIN POWDER 1 PACK G-TUBE SCH ×3 (09:00→17:45)
[2017-02-26] MEDS: HEPARIN SODIUM - SQ 10,000 UNITS/ML VIAL SQ SCH ×2 (09:00→22:45)
[2017-02-26] MEDS: SODIUM CHLORIDE 0.9% FLUSH 10 ML FLUSH IVF SCH (09:00)
[2017-02-26] MEDS: ARTIFICIAL TEARS OPTH SOLN 15 ML BTL EACH EYE SCH ×3 (09:00→17:45)
[2017-02-26] MEDS: LACTULOSE SYRUP 20 GM/30 ML CUP PO SCH ×4 (09:01→21:00)
[2017-02-26] MEDS: PANTOPRAZOLE SODIUM 40 MG VIAL IV SCH (09:01)
[2017-02-26] MEDS: SENNOSIDES 8.6 MG TAB PO SCH ×2 (09:01→21:00)
[2017-02-26] MEDS: POLYETHYLENE GLYCOL 17 GM PKG PO SCH ×2 (09:02→21:00)
[2017-02-26] MEDS: SODIUM CHLORIDE 0.9% FLUSH 10 ML FLUSH IV FLUSH SCH ×2 (09:02→21:00)
[2017-02-26] MEDS: fentaNYL DRIP 250 ML IV SCH (09:10)
[2017-02-26] MEDS ORDERED: PROPOFOL 200 MG/20 ML AMP IV ONE (09:20)
[2017-02-26] MEDS ORDERED: PAPAVERINE INJ 60 MG/2 ML VIAL ONE (09:45)
[2017-02-26] MEDS ORDERED: BUPIVACAINE HCL PF 0.5% 30 ML VIAL ONE (09:45)
[2017-02-26] MEDS: VANCOMYCIN HCL 1000 MG VIAL ONE ×2 (11:00→12:13)
--- NOTE | 2017-02-26 12:26 | PD.OP ---
Operative Report Date of Surgery: Feb 26, 2017 Preoperative Diagnosis: Necrotizing fasciitis with Tony's gangrene Postoperative Diagnosis: Same Procedure: Washout with debridement of necrotizing fasciitis/Tony's gangrene with VAC placement Anesthesia: KEILA Surgeon: oNrbert Cassidy Market Research Intern(s): None Resident Surgeon: None Operation and Findings: 67-year-old male with history of Tony's gangrene/necrotizing fasciitis who is being brought back for washout and debridement and possible closure versus VAC placement. Patient remained intubated and was transferred from the ICU. He was placed on the operating table in the dorsal lithotomy position, prepped and draped in usual sterile fashion, received preprocedure antibiotics. He was prepped and draped in usual sterile fashion. Using the pulse banana expert with 1 g of Vanco mixed with 3 L normal saline was utilized to wash out the wound. A few areas of necrotic tissue or identified and dissected out and removed. I was unable to perform wound closure at this time due to the amount of space and decision was made to place a VAC. VAC was placed with some difficulty due to the fact it was in the perineal region but then suction was maintained with a good seal. He remained intubated and was transferred back to the SICU. He'll return on Friday for another washout and VAC change. Norbert Cassidy DO Feb 26, 2017 12:25
[2017-02-26] MEDS ORDERED: VANCOMYCIN HCL 1000 MG VIAL ONE (12:38)
--- NOTE | 2017-02-26 13:17 | HHI.CCPN ---
Subjective Remarks/Hospital Course 66 year-old male. Date of admission 02/19/2017. Date of consultation 02/19/2017. Past medical history includes diabetes, chronic lower extremity wounds, colostomy secondary to megacolon, hypertension dyslipidemia who presented to [facility] at the request of his neighbors. The patient is unable to give any accurate information due to mentation. Information taken from medical records, nursing staff, documentation. It was indicated by ER documentation that the patient was found in a recliner laying in his yard duration up to 3 days and unable to crawl or walk. It is indicated that the colostomy bag was off the patient and he was reportedly covered in feces. He was noted to have a leukocytosis,, elevated blood sugar and altered mental status. CT abdomen status post revealed gas in the soft tissues of the perineum , scrotum and inguinal regions. Thickening of the scrotum noted. CT head showed no acute things. Chest x-ray negative. Urology was consulted today patient was taken back to the OR for debridement Patient has been started on empiric antibiotics include vancomycin, Zosyn. Blood cultures currently no growth to date. 02/20: Tmax 101.3. Currently 100.3. Adequate urine output overnight 1500 cc. White Blood cell count increased to 30,000 overnight. On norepinephrine @ 2 micro-grams per minute to maintain MAP 02/21: Currently afebrile. Adequate urine output. White blood cell count decreased to 16,000. Off norepinephrine. On Versed and fentanyl drips and does follow commands. 02/22: Currently afebrile. Again adequate urine output. Arousable and follows commands. White blood cell count currently 13,000. On fentanyl drip for pain. 4/2: Afebrile. Arousable on the ventilator and follows commands. Blood cell count trending downward. On fentanyl drip for pain along with Versed for comfort Subjective 02/24: Afebrile. Arousable ventilator falls commands. White blood cell count stable. On fentanyl drip for pain control. 02/25: Glucose control acceptable. CXR clear with small wily effusions. Opens eyes to voice. Anticipate return to OR Weds for plastic surgery. 02/26: Tolerated debridement today. Came back on vent where we'll leave him until after debridement on friday. Objective Vital Signs Date Time Temp Pulse Resp B/P Pulse Ox O2 Delivery O2 Flow Rate FiO2 02/26/17 10:15 100 100 02/26/17 10:00 72 02/26/17 08:00 98.4 14 134/64 Intake and Output 02/25/17 02/25/17 02/26/17 08:00 16:00 00:00 Intake Total 1662 ml 1580 ml 1823 ml Output Total 650 ml 1000 ml 1600 ml Balance 1012 ml 580 ml 223 ml Result Diagram: 02/26/17 0510 02/26/17 0510 Imaging Last Impressions Chest X-Ray 02/23/17 06 Signed Impressions: Service Date/Time: Thursday, February 23, 2017 04:22 - CONCLUSION: Mild improvement in the right midlung zone airspace consolidation. Frank Key MD Head CT 02/19/172205 Signed Impressions: Service Date/Time: Sunday, February 19, 2017 00:30 - CONCLUSION: 1. No acute findings. No significant change from September 2016. Jermain Minaya MD Abdomen/Pelvis CT 02/19/172205 Signed Impressions: Service Date/Time: Sunday, February 19, 2017 00:36 - CONCLUSION: #1. 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 #2. Left lower quadrant colostomy. Fluid distention of blind-ending rectal pouch to 8.6 cm. Jermain Minaya MD Objective Remarks GENERAL: 67 year old male, critically ill currently orotracheally intubated SKIN: Caudal/posterior Scrotum currently packed and elevated with no active drainage. Dark necrosis throughout the right scrotum Emaceration of back, posterior thighs bilaterally. Right foot with circumferential ulcer around ankle, ulcerated plantar dorsal aspect around great toe. Left ankle with open ulceration HEAD: Atraumatic. Normocephalic. EYES: Pupils equal and round about 2 mm bilaterally and reactive. No scleral icterus. No injection or drainage. ENT: No nasal bleeding or discharge. Mucous membranes pink and moist. Oropharynx without erythema NECK: Trachea midline. No JVD. CARDIOVASCULAR: RRR. S1, S2. No S4. No murmur RESPIRATORY: No accessory muscle use. Clear to auscultation. Breath sounds equal bilaterally. GASTROINTESTINAL: Abdomen soft, non-tender, nondistended. Left lower quadrant ostomy pink and intact with stool. Periumbilical to suprapubic scarring from prior operation noted. Hypoactive bowel sounds are appreciated : Currently suspended as necrosis over left testes and covered. Scrotal edema positive MUSCULOSKELETAL: Extremities 2+ lower extremity peripheral edema. No obvious deformities. NEUROLOGICAL: Currently sedated on the ventilator on Versed and fentanyl drip. Positive gag. Positive corneal reflex. Withdraws to pain in bilateral upper extremities. Date of Insertion: Feb 19, 2017 Line: Central Venous Catheter Side: Left Location: Internal, Jugular A/P Assessment and Plan Neuro/Psych: Diabetic neuropathy Insomnia Currently on fentanyl drip at 100-150 micrograms an hour and Versed drip at 2 mg an hour for sedation/analgesia while intubated Goal RASS -2 Daily sedation vacation Holding home medication Restoril 15 mg night as needed for insomnia CT head 02/18 revealed no acute intracranial findings CV: History of hypertension History dyslipidemia Preop A. fib/no history currently normal sinus rhythm Currently on one half normal saline at 125 cc an hour Currently off all vasopressors/goal to keep MAP greater than 65 Holding home medication of metoprolol 25 mg twice a day lisinopril 10 mg daily for hypertension. Resume when clinically indicated Echocardiogram 2013 revealed EF 50-55%. No regional wall motion abnormality. Mildly dilated left atrium TSH within normal limits. Initial troponin negative. Resp: Respiratory failure ACV 12/550/5/30 Ventilator bundle Bronchodilator therapy every 6 hours and as needed Spontaneous breathing trials daily Extubate after OR Friday. 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 Protonix for GI prophylaxis/home medication Colace/as needed Senokot for bowel regimen Ostomy cares Resume Creon 2 tablets 3 times a day Continue Glucerna 1.5 goal 55 cc an hour postoperatively if not extubated : Postop day #5 Excision and debridement with washout of necrotizing fasciitis of the perineum, scrotum, and bilateral groin region secondary to Necrotizing fasciitis/Tony's Gangrene involving scrotum, perineum, bilateral groin regions Postop day 3 washout Plan to return to the OR on Saturday 02/[address] Cassidy/urology following Endo: Diabetes mellitus Home medications Levemir 10 units twice a day insulin scale insulin. Currently off insulin drip and on sliding scale insulin with Accu-Cheks every 4 hours to maintain euglycemia/medium regimen Renal: Acute kidney injury Monitor urine output Accurate I's and O's Repeat BMP May need diamox. Heme: Normocytic anemia Leukocytosis Monitor CBC daily. Follow trends ID: Day #7 vancomycin, clindamycin and Zosyn. Appreciate consultation infectious disease for antibiotic coverage Blood cultures 2 02/18 strep species, pleomorphic gram-positive rods Wound culture 02/19 Morganella and Proteus . negative acid-fast bacilli and fungal's to date FEN: Hypophosphatemia Replace electrolytes per ICU electrolyte protocol Continue one half normal saline at 125 cc an hour with free water 200 every 6 MSK: Right second/fifth toe amputation Left second amputation Diabetic foot ulcers Wound care evaluate and treat Recommended Maxorb 3 days/keep heels elevated off bed Access -Left IJ CVL day #8 placed 02/19 - Right axillary arterial line day #6 placed 02/20 Prophylaxis - GI - Protonix - DVT - SCD/heparin subcutaneous Overall impression: Vasopressor dependent sepsis requiring additional surgery. Unable to wean ventilator. Wound size decreasing. Critical Care 33 mins Dangelo Starks MD Feb 26, 2017 13:17
[2017-02-26] MEDS ORDERED: DO NOT ADM ANY ANTICOAGULANT DRUGS PRN (13:26)
[2017-02-26] MEDS ORDERED: PROPOFOL 1000 MG/100 ML INJ 100 ML ONE (13:31)
[2017-02-26] MEDS: cefTRIAXone INJ 2,000 MG in SODIUM CHLORIDE 0.9% INJ 100 ML IV SCH (13:58)
--- NOTE | 2017-02-26 16:16 | HHI.IDPN ---
Note Infectious Disease Note ID Xcover for . Chart reviewed. 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 Admitted with altered mental status along with severe dehydration. A CT scan of the abdomen and pelvis showed gas accumulation in the soft tissue of the perineum, scrotum and inguinal region associated with marked scrotal wall thickening characteristic of necrotizing type of infection. The patient was evaluated by urology and he was taken to surgery and underwent debridement of necrotic tissue and there was also purulent drainage as well. Overnight events reviewed with RN. Patient is sedated on the vent. Afebrile. Not much resp secretions No diarrhea. UO adequate Wound vac in place in perineal region. Colostomy in place with stool. PAST MEDICAL HISTORY 1. Diabetes mellitus. 2. Hypertension. 3. Atrial fibrillation. 4. History of megacolon. 5. Arthritis. 6. Tonsillectomy. 7. Colostomy. 8. Oral surgery. 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 ALLERGIES FLOMAX. ANTIBIOTICS: 1. Vancomycin. 2. Piperacillin/tazobactam. 3. Clindamycin. SOCIAL HISTORY Unable to obtain. REVIEW OF SYSTEMS Unable to obtain. OBJECTIVE: Vital Signs Date Time Temp Pulse Resp B/P Pulse Ox O2 Delivery O2 Flow Rate FiO2 02/26/17 16:03 100 30 02/26/17 16:00 30 02/26/17 16:00 98.4 76 12 127/53 98 02/26/17 16:00 76 02/26/17 14:00 70 02/26/17 10:15 100 100 02/26/17 10:00 72 02/26/17 08:00 98.4 70 14 134/64 100 02/26/17 08:00 70 02/26/17 08:00 30 02/26/17 07:51 100 30 02/26/17 06:00 70 02/26/17 04:00 72 02/26/17 04:00 98.4 72 11 114/46 98 02/26/17 04:00 70 02/26/17 04:00 30 02/26/17 03:52 99 30 02/26/17 00:00 81 02/26/17 00:00 99.8 81 13 118/48 100 02/26/17 00:00 30 02/25/17 23:54 100 30 02/25/17 22:00 82 02/25/17 20:37 98 30 02/25/17 20:00 30 02/25/17 20:00 99.1 74 17 148/68 100 02/25/17 20:00 74 02/25/17 18:00 93 02/25/17 16:27 100 30 Laboratory Tests Laboratory Tests Test 02/26/17 05:10 White Blood Count 18.8 TH/MM3 Red Blood Count 3.31 MIL/MM3 Hemoglobin 9.6 GM/DL Hematocrit 28.6 % Mean Corpuscular Volume 86.4 FL Mean Corpuscular Hemoglobin 29.1 PG Mean Corpuscular Hemoglobin 33.7 % Concent Red Cell Distribution Width 14.4 % Platelet Count 222 TH/MM3 Mean Platelet Volume 8.4 FL Neutrophils (%) (Auto) 81.9 % Lymphocytes (%) (Auto) 9.1 % Monocytes (%) (Auto) 7.5 % Eosinophils (%) (Auto) 1.1 % Basophils (%) (Auto) 0.4 % Neutrophils # (Auto) 15.4 TH/MM3 Lymphocytes # (Auto) 1.7 TH/MM3 Monocytes # (Auto) 1.4 TH/MM3 Eosinophils # (Auto) 0.2 TH/MM3 Basophils # (Auto) 0.1 TH/MM3 CBC Comment AUTO DIFF Differential Total Cells 100 Counted Neutrophils % (Manual) 76 % Band Neutrophils % 4 % Lymphocytes % 6 % Monocytes % 4 % Eosinophils % 1 % Neutrophils # (Manual) 16.7 TH/MM3 Metamyelocytes 5 % Myelocytes 4 % Differential Comment FINAL DIFF MANUAL Platelet Estimate NORMAL Platelet Morphology Comment NORMAL Stomatocytes 1+ Sodium Level 143 MEQ/L Potassium Level 4.0 MEQ/L Chloride Level 105 MEQ/L Carbon Dioxide Level 33.4 MEQ/L Anion Gap 5 MEQ/L Blood Urea Nitrogen 10 MG/DL Creatinine 0.76 MG/DL Estimat Glomerular Filtration 102 ML/MIN Rate Random Glucose 99 MG/DL Calcium Level 7.6 MG/DL Microbiology Date/Time Procedure Status Source Growth 02/26/17 15:03 Aerobic Blood Culture Received Blood Peripheral Pending 02/26/17 15:03 Anaerobic Blood Culture Received Blood Peripheral Pending Date/Time Procedure Status Source Growth 02/18/17 22:35 Aerobic Blood Culture - Preliminary Resulted Blood Peripheral Streptococcus Species Pleomorphic Gram Positive Rods 02/18/17 22:35 Anaerobic Blood Culture - Final Resulted Viridans Streptococcus Grp 02/18/17 22:40 Aerobic Blood Culture - Preliminary Resulted Blood Peripheral NO GROWTH IN 3 DAYS 02/18/17 22:40 Anaerobic Blood Culture - Preliminary Resulted Viridans Streptococcus Grp 02/19/17 11:36 Gram Stain - Final Resulted Wound Other 02/19/17 11:36 Wound Culture - Preliminary Resulted Gram Negative Jean-Pierre 02/19/17 11:36 Acid Fast Stain - Final Resulted Wound Other NO ACID FAST BACILLI SEEN 02/19/17 11:36 Mycobacterial Culture Resulted Wound Other Pending 02/19/17 11:36 Fungal Smear - Final Resulted Wound Other NO FUNGAL ELEMENTS SEEN. 02/19/17 11:36 Fungal Culture Resulted Wound Other Pending 02/19/17 11:36 Gram Stain - Final Resulted Wound Other 02/19/17 11:36 Wound Culture - Preliminary Resulted Gram Negative Jean-Pierre 02/19/17 11:36 Acid Fast Stain - Final Resulted Wound Other NO ACID FAST BACILLI SEEN 02/19/17 11:36 Mycobacterial Culture Resulted Wound Other Pending 02/19/17 11:36 Fungal Smear - Final Resulted Wound Other NO FUNGAL ELEMENTS SEEN. 02/19/17 11:36 Fungal Culture Resulted Wound Other Pending PHYSICAL EXAMINATION GENERAL: On the ventilator and unresponsive. He is sedated. HEENT: The head is atraumatic. Extraocular movements cannot be fully assessed since the patient is sedated on the ventilator. Oropharynx intubated. Moist oral mucosa. NECK: No swelling or adenopathy. LUNGS: Diminished breath sounds throughout. HEART: Irregular rate and rhythm. No murmurs, rubs or gallops. ABDOMEN: Bowel sounds present, soft, no tenderness appreciated. : Perineal region with wound vac no surrounding erythema or induration. colostomy bag in place, looks ok. SKIN: No rash. The patient has multiple excoriated areas on the leg. 2+ edema of the legs and thighs. NEURO: Sedated. PSYCH: Unable to assess. IMPRESSION Severe Sepsis present on admission. Strep bacteremia Fourniers gangrene/necrotizing fasciitis of scrotum, perineum and inguinal region. strep viridans, gram positive jean-pierre and gram neg jean-pierre. Acute kidney disease. renal function improved. Leukocytosis secondary to infection. WBC improved. RECOMMENDATIONS Continue Ceftriaxone IV Continue Flagyl oral Follow cultures follow clinically. Shraddha Frances MD Feb 26, 2017 16:16
[2017-02-26] MEDS: PROPOFOL 1000 MG/100 ML IV SCH ×2 (18:01→22:44)
[2017-02-27] VITALS (16 sets, daily range): BP systolic 104–121; BP diastolic 40–78; PULSE 64–74; RESP 11–13; TEMP 98–98.8; O2SAT 96–100
[2017-02-27] MEDS: SODIUM CHLOR 0.45% 1000 ML INJ 1,000 ML IV SCH ×3 (01:05→20:05)
[2017-02-27] MEDS: PROPOFOL 1000 MG/100 ML IV SCH ×3 (01:11→20:39)
[2017-02-27] MEDS: fentaNYL DRIP 250 ML IV SCH (01:11)
[2017-02-27] MEDS ORDERED: PHARMACY ORDERED LAB ONE (01:45)
[2017-02-27] MEDS: RESP: ALBUTEROL 2.5 MG/IPRATROPIUM 0.5 MG NEB (SCH) INH (03:44)
[2017-02-27] MEDS: INSULIN NovoLIN REGULAR SUPPLEMENTAL SCALE SQ SCH ×4 (04:00→17:59)
[2017-02-27] MEDS: CHLORHEXIDINE GLUCONATE 2 % 1 PACK (2 CLOTHS) TOP SCH (04:00)
[2017-02-27 05:49] LABS: BICARBONATE 30.3 MEQ/L (21.0-32.0); POTASSIUM 3.8 MEQ/L (3.5-5.1)
[2017-02-27] MEDS: FREE WATER G-TUBE SCH ×4 (06:00→17:53)
[2017-02-27] MEDS: metroNIDAZOLE 500 MG TAB PO SCH ×3 (06:00→21:24)
[2017-02-27] MEDS: POLYETHYLENE GLYCOL 17 GM PKG PO SCH ×2 (08:44→21:24)
[2017-02-27] MEDS: LACTULOSE SYRUP 20 GM/30 ML CUP PO SCH ×4 (08:44→21:24)
[2017-02-27] MEDS: PANTOPRAZOLE SODIUM 40 MG VIAL IV SCH (08:45)
[2017-02-27] MEDS: SENNOSIDES 8.6 MG TAB PO SCH ×2 (08:45→21:24)
[2017-02-27] MEDS: DOCUSATE SODIUM 100 MG CAP PO SCH ×2 (08:45→21:24)
[2017-02-27] MEDS: INSULIN DETEMIR 100 UNITS/ML VIAL SQ SCH ×2 (08:45→21:25)
[2017-02-27] MEDS: LIPASE/PROTEASE/AMYLASE (24,000/76,000/120,000) CAP PO SCH ×3 (08:46→17:53)
[2017-02-27] MEDS: SODIUM CHLORIDE 0.9% FLUSH 10 ML FLUSH IV FLUSH SCH ×2 (08:47→21:25)
[2017-02-27] MEDS: BENEPROTEIN POWDER 1 PACK G-TUBE SCH ×3 (08:48→17:52)
[2017-02-27] MEDS: SODIUM CHLORIDE 0.9% FLUSH 10 ML FLUSH IVF SCH (08:48)
[2017-02-27] MEDS: ARTIFICIAL TEARS OPTH SOLN 15 ML BTL EACH EYE SCH ×3 (08:49→17:51)
--- NOTE | 2017-02-27 09:33 | HHI.CCPN ---
Subjective Remarks/Hospital Course 66 year-old male. Date of admission 02/19/2017. Date of consultation 02/19/2017. Past medical history includes diabetes, chronic lower extremity wounds, colostomy secondary to megacolon, hypertension dyslipidemia who presented to [facility] at the request of his neighbors. The patient is unable to give any accurate information due to mentation. Information taken from medical records, nursing staff, documentation. It was indicated by ER documentation that the patient was found in a recliner laying in his yard duration up to 3 days and unable to crawl or walk. It is indicated that the colostomy bag was off the patient and he was reportedly covered in feces. He was noted to have a leukocytosis,, elevated blood sugar and altered mental status. CT abdomen status post revealed gas in the soft tissues of the perineum , scrotum and inguinal regions. Thickening of the scrotum noted. CT head showed no acute things. Chest x-ray negative. Urology was consulted today patient was taken back to the OR for debridement Patient has been started on empiric antibiotics include vancomycin, Zosyn. Blood cultures currently no growth to date. 02/20: Tmax 101.3. Currently 100.3. Adequate urine output overnight 1500 cc. White Blood cell count increased to 30,000 overnight. On norepinephrine @ 2 micro-grams per minute to maintain MAP 02/21: Currently afebrile. Adequate urine output. White blood cell count decreased to 16,000. Off norepinephrine. On Versed and fentanyl drips and does follow commands. 02/22: Currently afebrile. Again adequate urine output. Arousable and follows commands. White blood cell count currently 13,000. On fentanyl drip for pain. 4/2: Afebrile. Arousable on the ventilator and follows commands. Blood cell count trending downward. On fentanyl drip for pain along with Versed for comfort Subjective 02/24: Afebrile. Arousable ventilator falls commands. White blood cell count stable. On fentanyl drip for pain control. 02/25: Glucose control acceptable. CXR clear with small wily effusions. Opens eyes to voice. Anticipate return to OR Wed for plastic surgery. 02/26: Tolerated debridement today. Came back on vent where we'll leave him until after debridement on friday. 02/27: For repeat debridement Friday. No complaints. Objective Vital Signs Date Time Temp Pulse Resp B/P Pulse Ox O2 Delivery O2 Flow Rate FiO2 02/27/17 07:54 100 30 02/27/17 04:00 98.1 68 13 105/43 Intake and Output 02/26/17 02/26/17 02/27/17 08:00 16:00 00:00 Intake Total 973 ml 1084 ml 1757 ml Output Total 1150 ml 950 ml 1325 ml Balance -177 ml 134 ml 432 ml Result Diagram: 02/26/17 0510 02/27/17 0505 Imaging Last Impressions Chest X-Ray 02/23/17 0600 Signed Impressions: Service Date/Time: Thursday, February 23, 2017 04:22 - CONCLUSION: Mild improvement in the right midlung zone airspace consolidation. Frank Key MD Head CT 02/19/172205 Signed Impressions: Service Date/Time: Sunday, February 19, 2017 00:30 - CONCLUSION: 1. No acute findings. No significant change from September 2016. Jermain Minaya MD Abdomen/Pelvis CT 02/19/172205 Signed Impressions: Service Date/Time: Sunday, February 19, 2017 00:36 - CONCLUSION: #1. 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 #2. Left lower quadrant colostomy. Fluid distention of blind-ending rectal pouch to 8.6 cm. Jermain Minaya MD Objective Remarks GENERAL: 67 year old male, critically ill currently orotracheally intubated SKIN: Caudal/posterior Scrotum currently packed and elevated with no active drainage. HEAD: Atraumatic. Normocephalic. EYES: Pupils equal and round about 2 mm bilaterally and reactive. No scleral icterus. No injection or drainage. ENT: No nasal bleeding or discharge. Mucous membranes pink and moist. Oropharynx without erythema NECK: Trachea midline. No JVD. CARDIOVASCULAR: RRR. S1, S2. No S4. No murmur RESPIRATORY: No accessory muscle use. Clear to auscultation. Breath sounds equal bilaterally. GASTROINTESTINAL: Abdomen soft, non-tender, nondistended. Left lower quadrant ostomy pink and intact with stool. Periumbilical to suprapubic scarring from prior operation noted. Active bowel sounds. : Currently suspended as necrosis over left testes and covered. Scrotal edema positive MUSCULOSKELETAL: Extremities 2+ lower extremity peripheral edema. NEUROLOGICAL: Currently sedated on the ventilator on Versed and fentanyl drip. Withdraws to pain. Date of Insertion: Feb 19, 2017 Line: Central Venous Catheter Side: Left Location: Internal, Jugular A/P Assessment and Plan Neuro/Psych: Diabetic neuropathy Insomnia Currently on fentanyl drip at 100-150 micrograms an hour and Versed drip at 2 mg an hour for sedation/analgesia while intubated Goal RASS -2 Daily sedation vacation Holding home medication Restoril 15 mg night as needed for insomnia CT head 02/18 revealed no acute intracranial findings CV: History of hypertension History dyslipidemia Preop A. fib/no history currently normal sinus rhythm Currently on one half normal saline at 125 cc an hour Currently off all vasopressors/goal to keep MAP greater than 65 Holding home medication of metoprolol 25 mg twice a day lisinopril 10 mg daily for hypertension. Resume when clinically indicated Echocardiogram 2013 revealed EF 50-55%. No regional wall motion abnormality. Mildly dilated left atrium TSH within normal limits. Initial troponin negative. Resp: Respiratory failure ACV /04/22 Ventilator bundle Bronchodilator therapy every 6 hours and as needed Spontaneous breathing trials daily Extubate after OR Friday. 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 Protonix for GI prophylaxis/home medication Colace/as needed Senokot for bowel regimen Ostomy cares Resume Creon 2 tablets 3 times a day Continue Glucerna 1.5 goal 55 cc an hour postoperatively if not extubated : Postop Excision and debridement with washout of necrotizing fasciitis of the perineum, scrotum, and bilateral groin region secondary to Necrotizing fasciitis /Tony's Gangrene involving scrotum, perineum, bilateral groin regions. Repeat washout Plan to return to the OR on Saturday 02/[address] Cassidy/urology following Endo: Diabetes mellitus Home medications Levemir 10 units twice a day insulin scale insulin. Currently off insulin drip and on sliding scale insulin with Accu-Cheks every 4 hours to maintain euglycemia/medium regimen Renal: Acute kidney injury Monitor urine output Accurate I's and O's Repeat BMP May need diamox. Heme: Normocytic anemia Leukocytosis Monitor CBC daily. Follow trends ID: Day #7 vancomycin, clindamycin and Zosyn. Appreciate consultation infectious disease for antibiotic coverage Blood cultures 2 02/18 strep species, pleomorphic gram-positive rods Wound culture 02/19 Morganella and Proteus . negative acid-fast bacilli and fungal's to date FEN: Hypophosphatemia Replace electrolytes per ICU electrolyte protocol Continue one half normal saline at 125 cc an hour with free water 200 every 6 MSK: Right second/fifth toe amputation Left second amputation Diabetic foot ulcers Wound care evaluate and treat Recommended Maxorb 3 days/keep heels elevated off bed Access -Left IJ CVL day #9 placed 02/19 - Right axillary arterial line day #6 placed 02/20 Prophylaxis - GI - Protonix - DVT - SCD/heparin subcutaneous Overall impression: Vasopressor dependent sepsis requiring additional surgery. Unable to wean ventilator. Wound size decreasing. Critical Care 36 mins Dangelo Starks MD Feb 27, 2017 09:33
--- NOTE | 2017-02-27 11:05 | HHI.PR ---
Subjective Patient symptoms today Pt seen and examined. Intubated; more alert today. Objective Vital Signs Vital Signs Date Time Temp Pulse Resp B/P Pulse Ox O2 Delivery O2 Flow Rate FiO2 02/27/17 10:54 100 30 02/27/17 07:54 100 30 02/27/17 04:00 30 02/27/17 04:00 98.1 68 13 105/43 100 02/27/17 03:40 100 30 02/27/17 00:00 30 02/27/17 00:00 98.0 74 12 118/78 100 02/26/17 23:26 100 30 02/26/17 20:00 30 02/26/17 20:00 98.8 90 13 144/63 100 02/26/17 19:47 100 30 02/26/17 18:00 71 02/26/17 16:03 100 30 02/26/17 16:00 30 02/26/17 16:00 98.4 76 12 127/53 98 02/26/17 16:00 76 02/26/17 14:00 70 Intake & Output 02/27/17 02/27/17 07:00 19:00 Intake Total 3701 ml Output Total 2050 ml Balance 1651 ml IV Total 2878 ml Tube Feeding 363 ml Tube Irrigant 60 ml Other 400 ml Output Urine Total 1400 ml Stool Total 650 ml Result Diagram: 02/26/17 0510 02/27/17 0505 Objective Remarks Abd:soft,nt,nd Wound: dressing intact and reinforced Ellis: urine clear 02/25 Abd:soft,nt,nd Wound: dressings intact; aneta in place Ellis: urine clear 02/27 Abd:soft,nt,nd Wound: VAC in place and draining Ellis: urine clear Medications and IVs Current Medications Medications (Trade) Dose Ordered Sig/Jeremias Route Start Time Stop Time Status Last Admin (NS Flush) 2 ml UNSCH PRN IV FLUSH 02/19/17 00:15 (NS Flush) 2 ml BID IV FLUSH 02/19/17 09:00 02/27/17 08:47 (Dulcolax Supp) 10 mg DAILY PRN RECTAL 02/19/17 00:15 (Heparin Inj) 5,000 units Q12HR SQ 02/19/17 09:00 02/26/17 22:45 (Narcan Inj) 0.4 mg UNSCH PRN IV 02/19/17 00:15 (Tylenol) 650 mg Q6H PRN PO 02/19/17 15:00 02/19/17 21:38 (Protonix Inj) 40 mg DAILY IV 02/20/17 09:00 02/27/17 08:45 (Tears Naturale Opth Soln) 1 drop TID EACH EYE 02/19/17 18:00 02/27/17 08:49 (Zofran Inj) 4 mg Q6H PRN IV 02/19/17 15:00 (Colace) 100 mg BID PO 02/19/17 21:00 02/27/17 08:45 Miscellaneous Information 1 Q361D XX 02/19/17 15:00 02/19/17 15:00 (Chlorhexidine 2% Cloth) Taper DAILY@04 TOP 02/20/17 04:00 02/16/18 03:59 02/26/17 06:22 Chlorhexidine Gluconate 3 pack 3 pack UNSCH PRN TOP 02/19/17 15:00 Fentanyl Citrate 250 ml @ 0 mls/hr TITRATE IV 02/19/17 15:00 02/27/17 01:11 Potassium Chloride 100 ml @ 50 mls/hr Q2H PRN IV 02/19/17 15:00 02/20/17 09:30 Potassium Chloride 100 ml @ 50 mls/hr Q2H PRN IV 02/19/17 15:00 Potassium Chloride 100 ml @ 25 mls/hr UNSCH PRN IV 02/19/17 15:00 Potassium Chloride 100 ml @ 50 mls/hr Q2H PRN IV 02/19/17 15:00 (Magnesium Sulfate Inj/NS Inj) 100 ml @ 50 mls/hr UNSCH PRN IV 02/19/17 15:00 Magnesium Oxide 800 mg 800 mg UNSCH PRN PO 02/19/17 15:00 (Magnesium Sulfate Inj/NS Inj) 100 ml @ 50 mls/hr UNSCH PRN IV 02/19/17 15:00 02/22/17 09:20 Potassium Phosphate 2000 mg 2,000 mg Q4H PRN PO 02/19/17 15:00 (Sodium Phosphate Inj/NS 250 ml Inj) 250 ml @ 42 mls/hr UNSCH PRN IV 02/19/17 15:00 02/22/17 09:21 Potassium Phosphate 2000 mg 2,000 mg UNSCH PRN PO/TUBE 02/19/17 15:00 Potassium Phosphate 30 mmol/ Sodium Chloride 260 ml @ 42 mls/hr UNSCH PRN IV 02/19/17 15:00 (Versed Inj) 100 ml @ 0 mls/hr TITRATE IV 02/19/17 15:00 02/21/17 21:25 (NS Flush) DAILY IVF 02/20/17 09:00 02/27/17 08:48 (NS Flush) UNSCH PRN IVF 02/19/17 15:45 Amylase/Lipase/ Protease 2 cap 2 cap TID PO 02/19/17 18:00 02/27/17 08:46 (Levophed Inj/NS 250 ml Inj) 250 ml @ 0 mls/hr TITRATE IV 02/19/17 21:00 02/20/17 22:48 (Brethine Inj) 1 mg UNSCH PRN SQ 02/19/17 21:00 (Free Water) VOLUME: 200 ML Q6HR G-TUBE 02/20/17 12:00 02/27/17 06:00 Dextrose 25 ml 25 ml UNSCH PRN IV PUSH 02/20/17 07:15 (1/2 NS 1000 ml Inj) 1,000 ml @ 100 mls/hr Q10H IV 02/20/17 18:00 02/27/17 01:05 (Glucagon Inj) 1 mg UNSCH PRN OTHER 02/20/17 18:45 (Beneprotein Powder) 1 pack TID G-TUBE 02/21/17 18:00 02/27/17 08:48 (Levemir Inj) 10 units Q12HR SQ 02/22/17 21:00 02/27/17 08:45 (Senokot) 17.2 mg Q12HR PO 02/23/17 00:15 02/27/17 08:45 (Lactulose Liq) 30 ml QID PO 02/22/17 18:00 02/27/17 08:44 (NovoLIN R SUPPLEMENTAL SCALE) 1 Q4HR SQ 02/22/17 16:00 02/27/17 00:00 Polyethylene Glycol 17 gm 17 gm Q12HR PO 02/23/17 09:00 02/27/17 08:44 (Rocephin Inj/NS Inj) 100 ml @ 200 mls/hr Q24H IV 02/24/17 14:00 02/26/17 13:58 (Flagyl) 500 mg Q8HR PO 02/25/17 17:00 02/27/17 06:00 Miscellaneous Information ALL NURSING DEPARTME... UNSCH PRN .XX 02/26/17 13:26 02/27/17 13:25 (Diprivan 1000 Mg/100ml Inj) 100 ml @ 0 mls/hr TITRATE IV 02/26/17 13:45 02/27/17 06:36 Assessment and Plan Assessment and Plan 66 y.o male with necrotizing fascitis s/p debridement For washout in AM 02/25 66 y.o male with necrotizing fascitis s/p debridement with washout Plastics consult to help with closure For washout in AM 02/27 66 y.o male with necrotizing fascitis s/p debridement with washout and VAC placement Will change VAC tomorrow in OR; will attempt to close if possible NPO after Norbert Granados DO Feb 27, 2017 11:05
[2017-02-27] MEDS: HEPARIN SODIUM - SQ 10,000 UNITS/ML VIAL SQ SCH ×2 (13:20→21:24)
[2017-02-27] MEDS: cefTRIAXone INJ 2,000 MG in SODIUM CHLORIDE 0.9% INJ 100 ML IV SCH (13:23)
[2017-02-28] VITALS (18 sets, daily range): BP systolic 101–145; BP diastolic 43–88; PULSE 54–71; RESP 12–14; TEMP 97.5–98.6; O2SAT 96–100
[2017-02-28] MEDS: PROPOFOL 1000 MG/100 ML IV SCH ×5 (00:31→20:12)
[2017-02-28] MEDS: CHLORHEXIDINE GLUCONATE 2 % 1 PACK (2 CLOTHS) TOP SCH (00:53)
[2017-02-28] MEDS: FREE WATER G-TUBE SCH ×4 (04:34→18:00)
[2017-02-28 05:49] LABS: BICARBONATE 30.2 MEQ/L (21.0-32.0); POTASSIUM 3.4 MEQ/L (3.5-5.1)
[2017-02-28] MEDS: INSULIN NovoLIN REGULAR SUPPLEMENTAL SCALE SQ SCH ×4 (06:00→18:00)
[2017-02-28] MEDS: metroNIDAZOLE 500 MG TAB PO SCH ×3 (07:16→21:05)
[2017-02-28] MEDS: SODIUM CHLOR 0.45% 1000 ML INJ 1,000 ML IV SCH ×3 (07:17→20:40)
[2017-02-28] MEDS: SODIUM CHLORIDE 0.9% FLUSH 10 ML FLUSH IV FLUSH SCH ×2 (08:25→20:13)
[2017-02-28] MEDS: LIPASE/PROTEASE/AMYLASE (24,000/76,000/120,000) CAP PO SCH ×3 (08:26→18:40)
[2017-02-28] MEDS: PANTOPRAZOLE SODIUM 40 MG VIAL IV SCH (08:26)
[2017-02-28] MEDS: LACTULOSE SYRUP 20 GM/30 ML CUP PO SCH ×4 (08:26→20:12)
[2017-02-28] MEDS: SODIUM CHLORIDE 0.9% FLUSH 10 ML FLUSH IVF SCH (08:26)
[2017-02-28] MEDS: SENNOSIDES 8.6 MG TAB PO SCH ×2 (08:27→20:13)
[2017-02-28] MEDS: ARTIFICIAL TEARS OPTH SOLN 15 ML BTL EACH EYE SCH ×3 (08:27→18:41)
[2017-02-28] MEDS: DOCUSATE SODIUM 100 MG CAP PO SCH ×2 (08:27→20:13)
[2017-02-28] MEDS: BENEPROTEIN POWDER 1 PACK G-TUBE SCH ×3 (08:27→18:00)
[2017-02-28] MEDS: POLYETHYLENE GLYCOL 17 GM PKG PO SCH ×2 (08:28→20:13)
[2017-02-28] MEDS: INSULIN DETEMIR 100 UNITS/ML VIAL SQ SCH ×2 (08:28→20:40)
[2017-02-28] MEDS: HEPARIN SODIUM - SQ 10,000 UNITS/ML VIAL SQ SCH ×2 (08:28→20:13)
[2017-02-28] MEDS: fentaNYL DRIP 250 ML IV SCH (08:29)
[2017-02-28 10:29] LABS: AUTOMATED NEUTROPHIL # 11.4 TH/MM3 (1.8-7.7); BASOPHIL # 0.1 TH/MM3 (0-0.2); BASOPHIL % 0.5 % (0.0-2.0); EOSINOPHIL # 0.3 TH/MM3 (0-0.4); EOSINOPHIL % 1.8 % (0.0-4.0); HEMATOCRIT 30.5 % (39.0-51.0); LYMPH % 10.8 % (9.0-44.0); LYMPHOCYTE # 1.5 TH/MM3 (1.0-4.8); MEAN CELL VOLUME 88.6 FL (80.0-100.0); MEAN CORPUSCULAR HEMOGLOBIN 28.3 PG (27.0-34.0); MEAN CORPUSCULAR HGB CONC 31.9 % (32.0-36.0); MONO % 6.6 % (0.0-8.0); NEUT % 80.3 % (16.0-70.0); PLATELET COUNT 219 TH/MM3 (150-450); RED BLOOD COUNT 3.45 MIL/MM3 (4.50-5.90); RED CELL DISTRIBUTION WIDTH 14.9 % (11.6-17.2); WHITE BLOOD COUNT 14.3 TH/MM3 (4.0-11.0)
[2017-02-28 10:38] LABS: HEMO FLAGS AUTO DIFF
[2017-02-28 11:31] LABS: BANDS 6 % (0-6); EOSINOPHILS 4 % (0-4); METAMYELOCYTES 1 % (0-1); MYELOCYTES 3 % (0-0); NEUTROPHIL # MANUAL DIFF 10.7 TH/MM3 (1.8-7.7); PLATELET ESTIMATE SMEAR NORMAL (NORMAL); PLATELET MORPHOLOGY NORMAL (NORMAL); POLYS (SEG NEUTROPHILS) 65 % (16-70); SCAN/DIFF FINAL DIFF MANUAL; WBC DIFF SAMPLE 100
[2017-02-28] MEDS ORDERED: VANCOMYCIN HCL 1000 MG VIAL ONE ×2 (11:35→11:46)
--- NOTE | 2017-02-28 12:12 | PD.OP ---
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 Surgeon: Norbert Cassidy Clinical Care Coordinator(s): None Resident Surgeon: None Operation and Findings: 67-year-old male with history of necrotizing fasciitis with Tony's gangrene. He was brought back to the OR to undergo washout and debridement with possible closure. Patient has remained intubated throughout his hospital course and was brought to the operating room intubated. He was placed in dorsal lithotomy position, received preprocedure antibiotics and was prepped and draped in usual sterile fashion. The VAC was removed and the skin on the left side of the wound started to look dusky. Decision was made not to replace the VAC. The wound was washed out with vancomycin irrigation solution. A few areas were curetted and debrided. Decision was made then to just repacked the wound with vancomycin soaked dressings. There was not enough skin present to close the wound. He will need to return to the OR on Friday to perform dressing changes and washout. Norbert Cassidy DO Feb 28, 2017 12:12
[2017-02-28] MEDS ORDERED: fentaNYL CITRATE 250 MCG/5 ML AMP ONE (12:33)
--- NOTE | 2017-02-28 15:07 | HHI.CCPN ---
Subjective Remarks/Hospital Course 66 year-old male. Date of admission 02/19/2017. Date of consultation 02/19/2017. 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 The patient is unable to give any accurate information due to mentation. Information taken from medical records, nursing staff, documentation. It was indicated by ER documentation that the patient was found in a recliner laying in his yard duration up to 3 days and unable to crawl or walk. It is indicated that the colostomy bag was off the patient and he was reportedly covered in feces. He was noted to have a leukocytosis,, elevated blood sugar and altered mental status. CT abdomen status post revealed gas in the soft tissues of the perineum , scrotum and inguinal regions. Thickening of the scrotum noted. CT head showed no acute things. Chest x-ray negative. Urology was consulted today patient was taken back to the OR for debridement Patient has been started on empiric antibiotics include vancomycin, Zosyn. Blood cultures currently no growth to date. 02/20: Tmax 101.3. Currently 100.3. Adequate urine output overnight 1500 cc. White Blood cell count increased to 30,000 overnight. On norepinephrine @ 2 micro-grams per minute to maintain MAP 02/21: Currently afebrile. Adequate urine output. White blood cell count decreased to 16,000. Off norepinephrine. On Versed and fentanyl drips and does follow commands. 02/22: Currently afebrile. Again adequate urine output. Arousable and follows commands. White blood cell count currently 13,000. On fentanyl drip for pain. 4/2: Afebrile. Arousable on the ventilator and follows commands. Blood cell count trending downward. On fentanyl drip for pain along with Versed for comfort Subjective 02/24: Afebrile. Arousable ventilator falls commands. White blood cell count stable. On fentanyl drip for pain control. 02/25: Glucose control acceptable. CXR clear with small wily effusions. Opens eyes to voice. Anticipate return to OR Weds for plastic surgery. 02/26: Tolerated debridement today. Came back on vent where we'll leave him until after debridement on friday. 02/27: For repeat debridement Friday. No complaints. 02/28: To OR today. Will attempt to wean from vent later or tomorrow. Objective Vital Signs Date Time Temp Pulse Resp B/P Pulse Ox O2 Delivery O2 Flow Rate FiO2 02/28/17 12:20 96 30 02/28/17 06:00 54 02/28/17 04:00 97.5 12 101/50 Intake and Output 02/27/17 02/27/17 02/28/17 08:00 16:00 00:00 Intake Total 1944 ml 1722 ml 1528 ml Output Total 725 ml 900 ml 1350 ml Balance 1219 ml 822 ml 178 ml Result Diagram: 02/28/17 1005 02/28/17 0455 Imaging Last Impressions Chest X-Ray 02/23/17 0600 Signed Impressions: Service Date/Time: Thursday, February 23, 2017 04:22 - CONCLUSION: Mild improvement in the right midlung zone airspace consolidation. Frank Key MD Head CT 02/19/172205 Signed Impressions: Service Date/Time: Sunday, February 19, 2017 00:30 - CONCLUSION: 1. No acute findings. No significant change from September 2016. Jermain Mniaya MD Abdomen/Pelvis CT 02/19/172205 Signed Impressions: Service Date/Time: Sunday, February 19, 2017 00:36 - CONCLUSION: #1. 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 #2. Left lower quadrant colostomy. Fluid distention of blind-ending rectal pouch to 8.6 cm. Jermain Minaya MD Objective Remarks GENERAL: 67 year old male, orotracheally intubated SKIN: Caudal/posterior Scrotum currently packed and elevated with no active drainage. HEAD: Atraumatic. Normocephalic. EYES: Pupils equal and round about 2 mm bilaterally and reactive. ENT: No nasal bleeding or discharge. NECK: Trachea midline. Orally intubated. CARDIOVASCULAR: RRR. S1, S2. No S4. No murmur RESPIRATORY: No accessory muscle use. Clear to auscultation. Breath sounds equal bilaterally. GASTROINTESTINAL: Abdomen soft, non-tender, nondistended. Left lower quadrant ostomy pink and intact with stool. Active bowel sounds. : Currently suspended as necrosis over left testes and covered. Scrotal edema positive MUSCULOSKELETAL: Extremities 2+ lower extremity peripheral edema. NEUROLOGICAL: Currently sedated on the ventilator on Versed and fentanyl drip. Withdraws to pain. Opens eyes to voice. Date of Insertion: Feb 19, 2017 Line: Central Venous Catheter Side: Left Location: Internal, Jugular A/P Assessment and Plan Neuro/Psych: Diabetic neuropathy Insomnia Currently on fentanyl drip at 100-150 micrograms an hour and Versed drip at 2 mg an hour for sedation/analgesia while intubated Goal RASS -2 Daily sedation vacation Holding home medication Restoril 15 mg night as needed for insomnia CT head 02/18 revealed no acute intracranial findings CV: History of hypertension History dyslipidemia Preop A. fib/no history currently normal sinus rhythm Currently on one half normal saline at 125 cc an hour Currently off all vasopressors/goal to keep MAP greater than 65 Holding home medication of metoprolol 25 mg twice a day lisinopril 10 mg daily for hypertension. Resume when clinically indicated Echocardiogram 2013 revealed EF 50-55%. No regional wall motion abnormality. Mildly dilated left atrium TSH within normal limits. Initial troponin negative. Resp: Respiratory failure ACV 12//04/22 Ventilator bundle Bronchodilator therapy every 6 hours and as needed Spontaneous breathing trials daily Extubate after OR Friday. 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 Protonix for GI prophylaxis/home medication Colace/as needed Senokot for bowel regimen Ostomy cares Resume Creon 2 tablets 3 times a day Continue Glucerna 1.5 goal 55 cc an hour postoperatively if not extubated : Postop Excision and debridement with washout of necrotizing fasciitis of the perineum, scrotum, and bilateral groin region secondary to Necrotizing fasciitis /Tony's Gangrene involving scrotum, perineum, bilateral groin regions. Repeat washout Plan to return to the OR on Saturday 02/[address] Cassidy/urology following Endo: Diabetes mellitus Home medications Levemir 10 units twice a day insulin scale insulin. Currently off insulin drip and on sliding scale insulin with Accu-Cheks every 4 hours to maintain euglycemia/medium regimen Renal: Acute kidney injury Monitor urine output Accurate I's and O's Repeat BMP May need diamox. Heme: Normocytic anemia Leukocytosis Monitor CBC daily. Follow trends ID: clindamycin and Zosyn. Appreciate consultation infectious disease for antibiotic coverage Blood cultures 2 02/18 strep species, pleomorphic gram-positive rods Wound culture 02/19 Morganella and Proteus . 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 Unable to wean ventilator. Wound size decreasing. Critical Care 36 mins Dangelo Starks MD Feb 28, 2017 15:07
[2017-02-28] MEDS: cefTRIAXone INJ 2,000 MG in SODIUM CHLORIDE 0.9% INJ 100 ML IV SCH (15:22)
[2017-03-01] VITALS (16 sets, daily range): BP systolic 112–153; BP diastolic 46–69; PULSE 68–78; RESP 12–22; TEMP 98.3–98.8; O2SAT 95–100
[2017-03-01] MEDS: CHLORHEXIDINE GLUCONATE 2 % 1 PACK (2 CLOTHS) TOP SCH (03:37)
[2017-03-01] MEDS: FREE WATER G-TUBE SCH ×5 (04:29→21:41)
[2017-03-01] MEDS: metroNIDAZOLE 500 MG TAB PO SCH ×3 (04:29→20:38)
[2017-03-01] MEDS: PROPOFOL 1000 MG/100 ML IV SCH (04:42)
[2017-03-01] MEDS: fentaNYL DRIP 250 ML IV SCH (04:43)
[2017-03-01 04:47] LABS: BASOPHIL # 0.1 TH/MM3 (0-0.2); BASOPHIL % 0.5 % (0.0-2.0); EOSINOPHIL # 0.2 TH/MM3 (0-0.4); EOSINOPHIL % 1.5 % (0.0-4.0); HEMATOCRIT 29.3 % (39.0-51.0); LYMPHOCYTE # 1.6 TH/MM3 (1.0-4.8); MEAN CORPUSCULAR HEMOGLOBIN 28.3 PG (27.0-34.0); MEAN CORPUSCULAR HGB CONC 31.8 % (32.0-36.0); MONO % 6.9 % (0.0-8.0); NEUT % 80.1 % (16.0-70.0); PLATELET COUNT 233 TH/MM3 (150-450); RED BLOOD COUNT 3.29 MIL/MM3 (4.50-5.90); RED CELL DISTRIBUTION WIDTH 15.1 % (11.6-17.2)
[2017-03-01 04:54] LABS: HEMO FLAGS AUTO DIFF
[2017-03-01] MEDS: INSULIN NovoLIN REGULAR SUPPLEMENTAL SCALE SQ SCH ×4 (05:15→18:00)
[2017-03-01] MEDS: ARTIFICIAL TEARS OPTH SOLN 15 ML BTL EACH EYE SCH ×3 (08:48→17:12)
[2017-03-01] MEDS: BENEPROTEIN POWDER 1 PACK G-TUBE SCH ×3 (08:48→17:12)
[2017-03-01] MEDS: PANTOPRAZOLE SODIUM 40 MG VIAL IV SCH (08:49)
[2017-03-01] MEDS: HEPARIN SODIUM - SQ 10,000 UNITS/ML VIAL SQ SCH ×2 (08:49→20:38)
[2017-03-01] MEDS: POLYETHYLENE GLYCOL 17 GM PKG PO SCH ×2 (08:50→20:06)
[2017-03-01] MEDS: DOCUSATE SODIUM 100 MG CAP PO SCH ×2 (08:50→20:06)
[2017-03-01] MEDS: INSULIN DETEMIR 100 UNITS/ML VIAL SQ SCH ×2 (08:50→20:38)
[2017-03-01] MEDS: LACTULOSE SYRUP 20 GM/30 ML CUP PO SCH ×4 (08:50→20:06)
[2017-03-01] MEDS: LIPASE/PROTEASE/AMYLASE (24,000/76,000/120,000) CAP PO SCH ×3 (08:51→18:01)
[2017-03-01] MEDS: SENNOSIDES 8.6 MG TAB PO SCH ×2 (08:51→20:06)
[2017-03-01] MEDS: SODIUM CHLORIDE 0.9% FLUSH 10 ML FLUSH IV FLUSH SCH ×2 (08:51→20:38)
[2017-03-01] MEDS: SODIUM CHLORIDE 0.9% FLUSH 10 ML FLUSH IVF SCH (08:51)
[2017-03-01 09:36] LABS: BANDS 6 % (0-6); EOSINOPHILS 1 % (0-4); METAMYELOCYTES 2 % (0-1); NEUTROPHIL # MANUAL DIFF 13.4 TH/MM3 (1.8-7.7); PLATELET ESTIMATE SMEAR LOW (NORMAL); PLATELET MORPHOLOGY NORMAL (NORMAL); POLYS (SEG NEUTROPHILS) 81 % (16-70); WBC DIFF SAMPLE 100
[2017-03-01 09:37] LABS: SCAN/DIFF FINAL DIFF MANUAL
[2017-03-01] MEDS: SODIUM CHLOR 0.45% 1000 ML INJ 1,000 ML IV SCH ×2 (12:05→20:39)
--- NOTE | 2017-03-01 12:25 | HHI.CCPN ---
Subjective Remarks/Hospital Course 66 year-old male. Date of admission 02/19/2017. Date of consultation 02/19/2017. 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 The patient is unable to give any accurate information due to mentation. Information taken from medical records, nursing staff, documentation. It was indicated by ER documentation that the patient was found in a recliner laying in his yard duration up to 3 days and unable to crawl or walk. It is indicated that the colostomy bag was off the patient and he was reportedly covered in feces. He was noted to have a leukocytosis,, elevated blood sugar and altered mental status. CT abdomen status post revealed gas in the soft tissues of the perineum , scrotum and inguinal regions. Thickening of the scrotum noted. CT head showed no acute things. Chest x-ray negative. Urology was consulted today patient was taken back to the OR for debridement Patient has been started on empiric antibiotics include vancomycin, Zosyn. Blood cultures currently no growth to date. 02/20: Tmax 101.3. Currently 100.3. Adequate urine output overnight 1500 cc. White Blood cell count increased to 30,000 overnight. On norepinephrine @ 2 micro-grams per minute to maintain MAP 02/21: Currently afebrile. Adequate urine output. White blood cell count decreased to 16,000. Off norepinephrine. On Versed and fentanyl drips and does follow commands. 02/22: Currently afebrile. Again adequate urine output. Arousable and follows commands. White blood cell count currently 13,000. On fentanyl drip for pain. 4/2: Afebrile. Arousable on the ventilator and follows commands. Blood cell count trending downward. On fentanyl drip for pain along with Versed for comfort Subjective 02/24: Afebrile. Arousable ventilator falls commands. White blood cell count stable. On fentanyl drip for pain control. 02/25: Glucose control acceptable. CXR clear with small wily effusions. Opens eyes to voice. Anticipate return to OR Weds for plastic surgery. 02/26: Tolerated debridement today. Came back on vent where we'll leave him until after debridement on friday. 02/27: For repeat debridement Friday. No complaints. 02/28: To OR today. Will attempt to wean from vent later or tomorrow. 03/01: Tolerating PSV SBT after several operative procedures. Will wean ventilator. Objective Vital Signs Date Time Temp Pulse Resp B/P Pulse Ox O2 Delivery O2 Flow Rate FiO2 03/01/17 11:40 97 Nasal Cannula 2.00 03/01/17 08:12 30 03/01/17 04:00 98.6 74 12 129/60 123/48 Intake and Output 02/28/17 02/28/17 03/01/17 08:00 16:00 00:00 Intake Total 1390 ml 1837 ml 865 ml Output Total 850 ml 1835 ml 1400 ml Balance 540 ml 2 ml -535 ml Result Diagram: 03/01/17 0415 02/28/17 0455 Imaging Last Impressions Chest X-Ray 02/23/17 0600 Signed Impressions: Service Date/Time: Thursday, February 23, 2017 04:22 - CONCLUSION: Mild improvement in the right midlung zone airspace consolidation. Frank Key MD Head CT 02/19/172205 Signed Impressions: Service Date/Time: Sunday, February 19, 2017 00:30 - CONCLUSION: 1. No acute findings. No significant change from September 2016. Jermain Minaya MD Abdomen/Pelvis CT 02/19/172205 Signed Impressions: Service Date/Time: Sunday, February 19, 2017 00:36 - CONCLUSION: #1. 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 #2. Left lower quadrant colostomy. Fluid distention of blind-ending rectal pouch to 8.6 cm. Jermain Minaya MD Objective Remarks GENERAL: 67 year old male, orotracheally intubated SKIN: Caudal/posterior Scrotum currently packed and elevated with no active drainage. HEAD: Atraumatic. Normocephalic. EYES: Pupils equal and round about 2 mm bilaterally and reactive. ENT: No nasal bleeding or discharge. NECK: Trachea midline. Orally intubated. CARDIOVASCULAR: RRR. S1, S2. No S4. No murmur RESPIRATORY: No accessory muscle use. Clear to auscultation.Few mobile secretions. GASTROINTESTINAL: Abdomen soft, non-tender, nondistended. Left lower quadrant ostomy viable. : Currently suspended as necrosis over left testes and covered. Scrotal edema positive MUSCULOSKELETAL: Extremities 2+ lower extremity peripheral edema. NEUROLOGICAL: Sedation off, nods head to question, moves 4 limbs Date of Insertion: Feb 19, 2017 Line: Central Venous Catheter Side: Left Location: Internal, Jugular A/P Assessment and Plan Neuro/Psych: Diabetic neuropathy Insomnia Currently on fentanyl drip at 100-150 micrograms an hour and Versed drip at 2 mg an hour for sedation/analgesia while intubated Goal RASS -2 Daily sedation vacation Holding home medication Restoril 15 mg night as needed for insomnia CT head 02/18 revealed no acute intracranial findings CV: History of hypertension History dyslipidemia Preop A. fib/no history currently normal sinus rhythm Currently on one half normal saline at 125 cc an hour Currently off all vasopressors/goal to keep MAP greater than 65 Holding home medication of metoprolol 25 mg twice a day lisinopril 10 mg daily for hypertension. Resume when clinically indicated Echocardiogram 2013 revealed EF 50-55%. No regional wall motion abnormality. Mildly dilated left atrium TSH within normal limits. Initial troponin negative. Resp: Respiratory failure ACV /04/22 Ventilator bundle Bronchodilator therapy every 6 hours and as needed Spontaneous breathing trials daily Extubate after OR Friday. 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 Protonix for GI prophylaxis/home medication Colace/as needed Senokot for bowel regimen Ostomy cares Resume Creon 2 tablets 3 times a day Continue Glucerna 1.5 goal 55 cc an hour postoperatively if not extubated : Postop Excision and debridement with washout of necrotizing fasciitis of the perineum, scrotum, and bilateral groin region secondary to Necrotizing fasciitis /Tony's Gangrene involving scrotum, perineum, bilateral groin regions. Repeat washout Plan to return to the OR on Saturday 02/[address] Cassidy/urology following Endo: Diabetes mellitus Home medications Levemir 10 units twice a day insulin scale insulin. Currently off insulin drip and on sliding scale insulin with Accu-Cheks every 4 hours to maintain euglycemia/medium regimen Renal: Acute kidney injury Monitor urine output Accurate I's and O's Repeat BMP May need diamox. Heme: Normocytic anemia Leukocytosis Monitor CBC daily. Follow trends ID: clindamycin and Zosyn. Appreciate consultation infectious disease for antibiotic coverage Blood cultures 2 02/18 strep species, pleomorphic gram-positive rods Wound culture 02/19 Morganella and Proteus . negative acid-fast bacilli and fungal's to date FEN: Hypophosphatemia Replace electrolytes per ICU electrolyte protocol Continue one half normal saline at 125 cc an hour with free water 200 every 6 MSK: Right second/fifth toe amputation Left second amputation Diabetic foot ulcers Wound care evaluate and treat Recommended Maxorb 3 days/keep heels elevated off bed Access -Left IJ CVL day #10 placed 02/19 - Right axillary arterial line day #7 placed 02/20 Prophylaxis - GI - Protonix - DVT - SCD/heparin subcutaneous Overall impression: Vasopressor dependent sepsis now improved. Start weaning trials for ventilator. Dangelo Starks MD Mar 01, 2017 12:25
[2017-03-01] MEDS: cefTRIAXone INJ 2,000 MG in SODIUM CHLORIDE 0.9% INJ 100 ML IV SCH (14:00)
[2017-03-02] VITALS (14 sets, daily range): BP systolic 141–174; BP diastolic 56–77; PULSE 66–83; RESP 14–23; TEMP 98.4–99; O2SAT 93–96
[2017-03-02] MEDS: CHLORHEXIDINE GLUCONATE 2 % 1 PACK (2 CLOTHS) TOP SCH (03:27)
[2017-03-02] MEDS: FREE WATER G-TUBE SCH (03:28)
[2017-03-02 03:39] LABS: AUTOMATED NEUTROPHIL # 9.3 TH/MM3 (1.8-7.7); BASOPHIL % 0.4 % (0.0-2.0); EOSINOPHIL # 0.1 TH/MM3 (0-0.4); EOSINOPHIL % 0.8 % (0.0-4.0); HEMATOCRIT 28.5 % (39.0-51.0); LYMPH % 12.6 % (9.0-44.0); LYMPHOCYTE # 1.5 TH/MM3 (1.0-4.8); MEAN CELL VOLUME 87.9 FL (80.0-100.0); MEAN CORPUSCULAR HEMOGLOBIN 29.4 PG (27.0-34.0); MEAN CORPUSCULAR HGB CONC 33.5 % (32.0-36.0); MONO % 6.1 % (0.0-8.0); NEUT % 80.1 % (16.0-70.0); PLATELET COUNT 261 TH/MM3 (150-450); RED BLOOD COUNT 3.24 MIL/MM3 (4.50-5.90); WHITE BLOOD COUNT 11.7 TH/MM3 (4.0-11.0)
[2017-03-02 03:42] LABS: HEMO FLAGS AUTO DIFF
[2017-03-02 04:22] LABS: BANDS 16 % (0-6); EOSINOPHILS 1 % (0-4); METAMYELOCYTES 2 % (0-1); MYELOCYTES 2 % (0-0); NEUTROPHIL # MANUAL DIFF 10.4 TH/MM3 (1.8-7.7); POLYS (SEG NEUTROPHILS) 69 % (16-70); WBC DIFF SAMPLE 100
[2017-03-02 04:24] LABS: KERATOCYTES 1+ (NORMAL)
[2017-03-02 04:25] LABS: PLATELET ESTIMATE SMEAR NORMAL (NORMAL); PLATELET MORPHOLOGY NORMAL (NORMAL); SCAN/DIFF FINAL DIFF MANUAL; STOMATOCYTES 1+ (NORMAL)
[2017-03-02] MEDS: INSULIN NovoLIN REGULAR SUPPLEMENTAL SCALE SQ SCH ×2 (05:31)
[2017-03-02] MEDS: metroNIDAZOLE 500 MG TAB PO SCH ×3 (05:32→20:39)
--- NOTE | 2017-03-02 07:09 | HHI.CCPN ---
Subjective Remarks/Hospital Course 66 year-old male. Date of admission 02/19/2017. Date of consultation 02/19/2017. 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 The patient is unable to give any accurate information due to mentation. Information taken from medical records, nursing staff, documentation. It was indicated by ER documentation that the patient was found in a recliner laying in his yard duration up to 3 days and unable to crawl or walk. It is indicated that the colostomy bag was off the patient and he was reportedly covered in feces. He was noted to have a leukocytosis,, elevated blood sugar and altered mental status. CT abdomen status post revealed gas in the soft tissues of the perineum , scrotum and inguinal regions. Thickening of the scrotum noted. CT head showed no acute things. Chest x-ray negative. Urology was consulted today patient was taken back to the OR for debridement Patient has been started on empiric antibiotics include vancomycin, Zosyn. Blood cultures currently no growth to date. 02/20: Tmax 101.3. Currently 100.3. Adequate urine output overnight 1500 cc. White Blood cell count increased to 30,000 overnight. On norepinephrine @ 2 micro-grams per minute to maintain MAP 02/21: Currently afebrile. Adequate urine output. White blood cell count decreased to 16,000. Off norepinephrine. On Versed and fentanyl drips and does follow commands. 02/22: Currently afebrile. Again adequate urine output. Arousable and follows commands. White blood cell count currently 13,000. On fentanyl drip for pain. 4/2: Afebrile. Arousable on the ventilator and follows commands. Blood cell count trending downward. On fentanyl drip for pain along with Versed for comfort Subjective 02/24: Afebrile. Arousable ventilator falls commands. White blood cell count stable. On fentanyl drip for pain control. 02/25: Glucose control acceptable. CXR clear with small wily effusions. Opens eyes to voice. Anticipate return to OR Weds for plastic surgery. 02/26: Tolerated debridement today. Came back on vent where we'll leave him until after debridement on friday. 02/27: For repeat debridement Friday. No complaints. 02/28: To OR today. Will attempt to wean from vent later or tomorrow. 03/01: Tolerating PSV SBT after several operative procedures. Will wean ventilator. 03/02: Extubated and breathing comfortably. Swallow eval -> feed. Restart PO HTN meds. Objective Vital Signs Date Time Temp Pulse Resp B/P Pulse Ox O2 Delivery O2 Flow Rate FiO2 03/02/17 06:00 75 03/02/17 04:00 98.5 20 160/73 93 158/60 03/01/17 11:40 Nasal Cannula 2.00 03/01/17 08:12 30 Intake and Output 03/01/17 03/01/17 03/02/17 08:00 16:00 00:00 Intake Total 1684 ml 1292 ml 818 ml Output Total 1900 ml 1675 ml 1820 ml Balance -216 ml -383 ml -1002 ml Result Diagram: 03/02/17 0315 02/28/17 0455 Imaging Last Impressions Chest X-Ray 02/23/17 0600 Signed Impressions: Service Date/Time: Thursday, February 23, 2017 04:22 - CONCLUSION: Mild improvement in the right midlung zone airspace consolidation. Frank Key MD Head CT 02/19/172205 Signed Impressions: Service Date/Time: Sunday, February 19, 2017 00:30 - CONCLUSION: 1. No acute findings. No significant change from September 2016. Jermain Minaya MD Abdomen/Pelvis CT 02/19/172205 Signed Impressions: Service Date/Time: Sunday, February 19, 2017 00:36 - CONCLUSION: #1. 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 #2. Left lower quadrant colostomy. Fluid distention of blind-ending rectal pouch to 8.6 cm. Jermain Minaya MD Objective Remarks GENERAL: 67 year old male HEAD: Atraumatic. Normocephalic. EYES: Pupils 2 mm bilaterally and reactive. NECK: Trachea midline.No stridor or obstruction. CARDIOVASCULAR: RRR. S1, S2. No S4. No murmur, no JVD. RESPIRATORY: No accessory muscle use. Clear to auscultation. Few mobile secretions. Strong cough. GASTROINTESTINAL: Abdomen soft, non-tender, nondistended. Left lower quadrant ostomy viable. : Scrotal edema positive MUSCULOSKELETAL: Extremities 1+ lower extremity peripheral edema. NEUROLOGICAL: O X 3, moves 4 limbs with strength. Date of Insertion: Feb 19, 2017 Line: Central Venous Catheter Side: Left Location: Internal, Jugular A/P Assessment and Plan Neuro/Psych: Diabetic neuropathy Insomnia Currently on fentanyl drip at 100-150 micrograms an hour and Versed drip at 2 mg an hour for sedation/analgesia while intubated Goal RASS -2 Daily sedation vacation Holding home medication Restoril 15 mg night as needed for insomnia CT head 02/18 revealed no acute intracranial findings CV: History of hypertension History dyslipidemia Preop A. fib/no history currently normal sinus rhythm Currently on one half normal saline at 125 cc an hour Currently off all vasopressors/goal to keep MAP greater than 65 Holding home medication of metoprolol 25 mg twice a day lisinopril 10 mg daily for hypertension. Resume when clinically indicated Echocardiogram 2013 revealed EF 50-55%. No regional wall motion abnormality. Mildly dilated left atrium Restart lopressor PO. TSH within normal limits. Initial troponin negative. 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 Protonix for GI prophylaxis/home medication Colace/as needed Senokot for bowel regimen Ostomy cares Resume Creon 2 tablets 3 times a day ADA diet, 1800 cals. : Postop Excision and debridement with washout of necrotizing fasciitis of the perineum, scrotum, and bilateral groin region secondary to Necrotizing fasciitis /Tony's Gangrene involving scrotum, perineum, bilateral groin regions. Repeat washout Plan to return to the OR on Saturday 02/[address] Cassidy/urology following Endo: Diabetes mellitus Home medications Levemir 10 units twice a day insulin scale insulin. Currently off insulin drip and on sliding scale insulin with Accu-Cheks ac hs to maintain euglycemia/medium regimen Renal: Acute kidney injury Monitor urine output Accurate I's and O's Repeat BMP May need diamox. Heme: Normocytic anemia Leukocytosis Monitor CBC daily. Follow trends ID: clindamycin and Zosyn. Appreciate consultation infectious disease for antibiotic coverage Blood cultures 2 02/18 strep species, pleomorphic gram-positive rods Wound culture 02/19 Morganella and Proteus . negative acid-fast bacilli and fungal's to date FEN: Hypophosphatemia Replace electrolytes per ICU electrolyte protocol MSK: Right second/fifth toe amputation Left second amputation Diabetic foot ulcers Wound care evaluate and treat Recommended Maxorb 3 days/keep heels elevated off bed Access Prophylaxis - GI - Protonix - DVT - SCD/heparin subcutaneous Overall impression: Vasopressor dependent sepsis now much improved. Dangelo Starks MD Mar 02, 2017 07:09
[2017-03-02] MEDS ORDERED: DEXTROSE 50% IN WATER 50 ML VIAL(D50) IV PUSH PRN (07:15)
[2017-03-02] MEDS ORDERED: GLUCAGON 1 MG/ML VIAL OTHER PRN (07:15)
[2017-03-02] MEDS: FUROSEMIDE 20 MG/2 ML VIAL IV PUSH SCH ×2 (08:08→17:19)
[2017-03-02] MEDS: ONDANSETRON HCL 4 MG/2 ML VIAL IV PRN ×3 (08:09→20:39)
[2017-03-02] MEDS: HEPARIN SODIUM - SQ 10,000 UNITS/ML VIAL SQ SCH ×2 (08:09→21:00)
[2017-03-02] MEDS: INSULIN DETEMIR 100 UNITS/ML VIAL SQ SCH ×2 (08:09→20:39)
[2017-03-02] MEDS: LIPASE/PROTEASE/AMYLASE (24,000/76,000/120,000) CAP PO SCH ×3 (08:09→17:18)
[2017-03-02] MEDS: SODIUM CHLORIDE 0.9% FLUSH 10 ML FLUSH IV FLUSH SCH ×2 (08:10→20:41)
[2017-03-02] MEDS: SODIUM CHLORIDE 0.9% FLUSH 10 ML FLUSH IVF SCH (08:10)
[2017-03-02] MEDS: SENNOSIDES 8.6 MG TAB PO SCH ×2 (08:10→20:40)
[2017-03-02] MEDS: POLYETHYLENE GLYCOL 17 GM PKG PO SCH ×2 (08:10→20:39)
[2017-03-02] MEDS: LACTULOSE SYRUP 20 GM/30 ML CUP PO SCH ×4 (08:10→20:39)
[2017-03-02] MEDS: PANTOPRAZOLE SOD 40 MG DELAYED RELEASE TAB PO SCH (08:10)
[2017-03-02] MEDS: DOCUSATE SODIUM 100 MG CAP PO SCH ×2 (08:10→20:39)
[2017-03-02] MEDS: METOPROLOL TARTRATE 25 MG TAB PO SCH ×2 (08:10→20:40)
[2017-03-02] MEDS: BENEPROTEIN POWDER 1 PACK G-TUBE SCH ×3 (08:11→17:19)
[2017-03-02] MEDS: ARTIFICIAL TEARS OPTH SOLN 15 ML BTL EACH EYE SCH ×3 (08:11→17:19)
[2017-03-02] MEDS ORDERED: LISINOPRIL 10 MG TAB PO SCH (09:00)
[2017-03-02] MEDS: LABETALOL HCL 100 MG/20 ML VIAL IV PUSH PRN ×3 (09:04→18:23)
[2017-03-02] MEDS: INSULIN ASPART SUPPLEMENTAL SCALE SQ SCH ×3 (11:00→20:40)
[2017-03-02] MEDS: LABETALOL HCL 100 MG TAB PO SCH ×2 (11:39→20:39)
[2017-03-02] MEDS: cefTRIAXone INJ 2,000 MG in SODIUM CHLORIDE 0.9% INJ 100 ML IV SCH (14:00)
[2017-03-03] VITALS (13 sets, daily range): BP systolic 155–177; BP diastolic 70–81; PULSE 57–73; RESP 13–21; TEMP 97.2–98.8; O2SAT 94–100
[2017-03-03] MEDS: LABETALOL HCL 100 MG/20 ML VIAL IV PUSH PRN ×2 (01:23→04:15)
[2017-03-03] MEDS: CHLORHEXIDINE GLUCONATE 2 % 1 PACK (2 CLOTHS) TOP SCH (04:00)
[2017-03-03] MEDS: metroNIDAZOLE 500 MG TAB PO SCH ×3 (04:46→20:30)
[2017-03-03] MEDS: INSULIN ASPART SUPPLEMENTAL SCALE SQ SCH ×4 (05:18→20:29)
--- NOTE | 2017-03-03 07:06 | PD.TRANSFR ---
Transfer Summary Admission Date Feb 19, 2017 at 00:15 Transfer Date: Mar 04, 2017 Admitting Diagnosis sepsis, dehydration Diagnoses: (1) Sepsis Diagnosis: Principal (2) Fourniers gangrene Diagnosis: Principal (3) Altered mental status Diagnosis: Principal (4) Leucocytosis Diagnosis: Principal (5) Diabetes type 1, uncontrolled Diagnosis: Principal (6) Acute prerenal azotemia Diagnosis: Principal (7) Atrial fibrillation Diagnosis: Secondary Significant Findings 67 y/o diabetic presented with Tony's Gangrene, underwent several debridement procedures by Urology Service. Extubated 2 days ago and breathing comfortably. ID following. Objective Vital Signs Date Time Temp Pulse Resp B/P Pulse Ox O2 Delivery O2 Flow Rate FiO2 03/03/17 06:00 64 03/03/17 04:00 98.8 20 177/79 95 03/02/17 07:37 21 03/01/17 11:40 Nasal Cannula 2.00 Intake and Output 03/02/17 03/02/17 03/03/17 08:00 16:00 00:00 Intake Total 963 ml 1610 ml 600 ml Output Total 1400 ml 3300 ml 2800 ml Balance -437 ml -1690 ml -2200 ml Result Diagram: 03/02/17 0315 02/28/17 0455 Imaging Last Impressions Chest X-Ray 02/23/17 0600 Signed Impressions: Service Date/Time: Thursday, February 23, 2017 04:22 - CONCLUSION: Mild improvement in the right midlung zone airspace consolidation. Frank Key MD Head CT 02/19/172205 Signed Impressions: Service Date/Time: Sunday, February 19, 2017 00:30 - CONCLUSION: 1. No acute findings. No significant change from September 2016. Jermain Minaya MD Abdomen/Pelvis CT 02/19/172205 Signed Impressions: Service Date/Time: Sunday, February 19, 2017 00:36 - CONCLUSION: #1. 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 #2. Left lower quadrant colostomy. Fluid distention of blind-ending rectal pouch to 8.6 cm. Jermain Minaya MD Objective Remarks GENERAL: 67 year old male HEAD: Atraumatic. Normocephalic. EYES: Pupils 2 mm bilaterally and reactive. NECK: Trachea midline.No stridor or obstruction. CARDIOVASCULAR: RRR. S1, S2. No S4. No murmur, no JVD. RESPIRATORY: No accessory muscle use. Clear to auscultation. Few mobile secretions. Strong cough. GASTROINTESTINAL: Abdomen soft, non-tender, nondistended. Left lower quadrant ostomy viable. : Scrotal edema positive MUSCULOSKELETAL: Extremities 1+ lower extremity peripheral edema. NEUROLOGICAL: O X 3, moves 4 limbs with strength. Date of Insertion: Feb 19, 2017 Line: Central Venous Catheter Side: Left Location: Internal, Jugular A/P Assessment and Plan Neuro/Psych: Diabetic neuropathy Insomnia Currently on fentanyl drip at 100-150 micrograms an hour and Versed drip at 2 mg an hour for sedation/analgesia while intubated Goal RASS -2 Daily sedation vacation Holding home medication Restoril 15 mg night as needed for insomnia CT head 02/18 revealed no acute intracranial findings CV: History of hypertension History dyslipidemia Preop A. fib/no history currently normal sinus rhythm Currently on one half normal saline at 125 cc an hour Currently off all vasopressors/goal to keep MAP greater than 65 Holding home medication of metoprolol 25 mg twice a day lisinopril 10 mg daily for hypertension. Resume when clinically indicated Echocardiogram 2013 revealed EF 50-55%. No regional wall motion abnormality. Mildly dilated left atrium Restart lopressor PO. TSH within normal limits. Initial troponin negative. 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 Protonix for GI prophylaxis/home medication Colace/as needed Senokot for bowel regimen Ostomy cares Resume Creon 2 tablets 3 times a day ADA diet, 1800 cals. : Postop Excision and debridement with washout of necrotizing fasciitis of the perineum, scrotum, and bilateral groin region secondary to Necrotizing fasciitis /Tony's Gangrene involving scrotum, perineum, bilateral groin regions. Repeat washout Plan to return to the OR on Saturday 02/[address] Cassidy/urology following Endo: Diabetes mellitus Home medications Levemir 10 units twice a day insulin scale insulin. Currently off insulin drip and on sliding scale insulin with Accu-Cheks ac hs to maintain euglycemia/medium regimen Renal: Acute kidney injury Monitor urine output Accurate I's and O's Repeat BMP May need diamox. Heme: Normocytic anemia Leukocytosis Monitor CBC daily. Follow trends ID: [email or web address] and Zosyn. Appreciate consultation infectious disease for antibiotic coverage Blood cultures 2 02/18 strep species, pleomorphic gram-positive rods Wound culture 02/19 Morganella and Proteus . negative acid-fast bacilli and fungal's to date FEN: Hypophosphatemia Replace electrolytes per ICU electrolyte protocol MSK: Right second/fifth toe amputation Left second amputation Diabetic foot ulcers Wound care evaluate and treat Recommended Maxorb 3 days/keep heels elevated off bed Access Prophylaxis - GI - Protonix - DVT - SCD/heparin subcutaneous Overall impression: Vasopressor dependent sepsis now much improved. Dangelo Starks MD Mar 03, 2017 07:06
[2017-03-03] MEDS: INSULIN DETEMIR 100 UNITS/ML VIAL SQ SCH ×2 (09:00→20:28)
[2017-03-03] MEDS: HEPARIN SODIUM - SQ 10,000 UNITS/ML VIAL SQ SCH ×2 (09:00→20:30)
[2017-03-03] MEDS: SODIUM CHLORIDE 0.9% FLUSH 10 ML FLUSH IVF SCH (09:00)
[2017-03-03] MEDS: BENEPROTEIN POWDER 1 PACK G-TUBE SCH ×3 (09:00→18:00)
[2017-03-03] MEDS: POLYETHYLENE GLYCOL 17 GM PKG PO SCH ×2 (09:00→20:29)
[2017-03-03] MEDS: SODIUM CHLORIDE 0.9% FLUSH 10 ML FLUSH IV FLUSH SCH ×2 (09:00→20:31)
[2017-03-03] MEDS: ARTIFICIAL TEARS OPTH SOLN 15 ML BTL EACH EYE SCH ×3 (09:00→18:00)
[2017-03-03] MEDS: FUROSEMIDE 20 MG/2 ML VIAL IV PUSH SCH ×2 (09:37→18:09)
[2017-03-03] MEDS: DOCUSATE SODIUM 100 MG CAP PO SCH ×2 (09:37→20:30)
[2017-03-03] MEDS: LIPASE/PROTEASE/AMYLASE (24,000/76,000/120,000) CAP PO SCH ×3 (09:37→18:09)
[2017-03-03] MEDS: LACTULOSE SYRUP 20 GM/30 ML CUP PO SCH ×4 (09:37→20:29)
[2017-03-03] MEDS: SENNOSIDES 8.6 MG TAB PO SCH ×2 (09:38→20:29)
[2017-03-03] MEDS: LISINOPRIL 10 MG TAB PO SCH ×2 (09:38→20:30)
[2017-03-03] MEDS: METOPROLOL TARTRATE 25 MG TAB PO SCH ×2 (09:38→20:30)
[2017-03-03] MEDS: PANTOPRAZOLE SOD 40 MG DELAYED RELEASE TAB PO SCH (09:38)
[2017-03-03] MEDS: amLODIPine BESYLATE 5 MG TAB PO SCH (09:38)
[2017-03-03] MEDS: LABETALOL HCL 100 MG TAB PO SCH ×2 (09:39→20:30)
[2017-03-03] MEDS ORDERED: ACETAMINOPHEN 1000 MG/100 ML VIAL IV ONE (11:15)
[2017-03-03] MEDS ORDERED: FAMOTIDINE 20 MG/2 ML VIAL ONE (11:15)
[2017-03-03] MEDS ORDERED: fentaNYL CITRATE 250 MCG/5 ML AMP ONE (11:15)
[2017-03-03] MEDS ORDERED: MIDAZOLAM HCL 2 MG/2 ML VIAL ONE (11:15)
[2017-03-03] MEDS ORDERED: VANCOMYCIN HCL 1000 MG VIAL ONE (12:03)
[2017-03-03] MEDS ORDERED: PHENYLEPH/NS 1000 MCG/10 ML SYR IV ONE (12:35)
[2017-03-03] MEDS ORDERED: NEOSTIGMINE 3 MG/3 ML SYR IV ONE (12:35)
[2017-03-03] MEDS ORDERED: PROPOFOL 200 MG/20 ML AMP IV ONE (12:35)
[2017-03-03] MEDS ORDERED: ONDANSETRON HCL 4 MG/2 ML VIAL IV PUSH ONE (12:35)
[2017-03-03] MEDS ORDERED: LACTATED RINGER'S 1000 ML INJ 1,000 ML IV ONE (12:35)
[2017-03-03] MEDS ORDERED: VANCOMYCIN HCL 1000 MG VIAL OTHER ONE (13:15)
[2017-03-03] MEDS ORDERED: BACITRACIN TOP OINT 15 GM TUBE TOPICAL ONE (13:30)
[2017-03-03] MEDS ORDERED: DO NOT ADM ANY ANTICOAGULANT DRUGS PRN (13:51)
--- NOTE | 2017-03-03 13:51 | PD.OP ---
Operative Report Date of Surgery: Mar 03, 2017 Preoperative Diagnosis: Necrotizing fasciitis/Tony's gangrene of the perineum and scrotum with partial wound closure. Postoperative Diagnosis: Same Procedure: Washout with debridement and dressing change of wound Anesthesia: KEILA Surgeon: Norbert Cassidy Delinquent Account Clerk(s): None Resident Surgeon: None Operation and Findings: 67-year-old male with history of Tony's gangrene/necrotizing fasciitis involving the perineum and scrotum. Patient was brought back to the OR for washout with debridement and dressing change and partial wound closure. Patient is brought to the operating room and identified by myself as Sang Donahue. Placed in dorsal lithotomy position, prepped and draped in usual sterile fashion, received general endotracheal tube anesthesia and received preprocedure antibiotics. The packing was removed and the area was washed out with antibiotic solution. Small areas of necrotic tissue along the edge was debrided. The wound in the left portion of the perineum was closed with a intermittent 3-0 nylon sutures. The wound was then packed and testicles wrapped with 3 inch Alfredo. [place] were used to close the top portion of the room and the bottom portion room what remained open. 60 [place] Ellis catheter was changed out and Adaptic was placed over small wound along the foreskin on the right side. He tolerated procedure well and was transferred back to the SICU. Norbert Cassidy DO Mar 03, 2017 13:51
--- NOTE | 2017-03-03 14:32 | HHI.PR ---
Addendum to Inpatient Note Addendum Reason: Additional Documentation Additional Information Attempted to see patient: in OR for further debridement per mariana KAUFFMAN. Shraddha Frances MD Mar 03, 2017 14:32
[2017-03-03] MEDS: cefTRIAXone INJ 2,000 MG in SODIUM CHLORIDE 0.9% INJ 100 ML IV SCH (15:41)
[2017-03-04] VITALS (13 sets, daily range): BP systolic 132–155; BP diastolic 59–71; PULSE 63–82; RESP 14–22; TEMP 98.1–98.8; O2SAT 95–100
[2017-03-04] MEDS: LABETALOL HCL 100 MG/20 ML VIAL IV PUSH PRN ×2 (01:10→01:20)
[2017-03-04] MEDS: CHLORHEXIDINE GLUCONATE 2 % 1 PACK (2 CLOTHS) TOP SCH (03:22)
[2017-03-04] MEDS: metroNIDAZOLE 500 MG TAB PO SCH ×3 (04:16→20:46)
[2017-03-04 04:33] LABS: AUTOMATED NEUTROPHIL # 12.7 TH/MM3 (1.8-7.7); BASOPHIL # 0.1 TH/MM3 (0-0.2); BASOPHIL % 0.5 % (0.0-2.0); EOSINOPHIL # 0.1 TH/MM3 (0-0.4); EOSINOPHIL % 0.8 % (0.0-4.0); HEMATOCRIT 31.4 % (39.0-51.0); HEMO FLAGS DIFF FINAL; LYMPH % 11.8 % (9.0-44.0); LYMPHOCYTE # 1.9 TH/MM3 (1.0-4.8); MEAN CELL VOLUME 86.3 FL (80.0-100.0); MEAN CORPUSCULAR HEMOGLOBIN 29.1 PG (27.0-34.0); MEAN CORPUSCULAR HGB CONC 33.7 % (32.0-36.0); MONO % 7.7 % (0.0-8.0); NEUT % 79.2 % (16.0-70.0); PLATELET COUNT 314 TH/MM3 (150-450); RED BLOOD COUNT 3.64 MIL/MM3 (4.50-5.90); RED CELL DISTRIBUTION WIDTH 15.2 % (11.6-17.2); WHITE BLOOD COUNT 16.1 TH/MM3 (4.0-11.0)
[2017-03-04 04:56] LABS: BICARBONATE 35.3 MEQ/L (21.0-32.0); POTASSIUM 3.4 MEQ/L (3.5-5.1)
[2017-03-04] MEDS: INSULIN ASPART SUPPLEMENTAL SCALE SQ SCH ×4 (06:50→20:49)
[2017-03-04] MEDS: INSULIN DETEMIR 100 UNITS/ML VIAL SQ SCH ×2 (08:28→20:48)
[2017-03-04] MEDS: HEPARIN SODIUM - SQ 10,000 UNITS/ML VIAL SQ SCH ×2 (08:28→20:46)
[2017-03-04] MEDS: FUROSEMIDE 20 MG/2 ML VIAL IV PUSH SCH ×2 (08:29→17:20)
[2017-03-04] MEDS: SODIUM CHLORIDE 0.9% FLUSH 10 ML FLUSH IV FLUSH SCH ×2 (08:29→20:47)
[2017-03-04] MEDS: BENEPROTEIN POWDER 1 PACK G-TUBE SCH ×3 (08:29→17:19)
[2017-03-04] MEDS: ARTIFICIAL TEARS OPTH SOLN 15 ML BTL EACH EYE SCH ×3 (08:29→17:19)
[2017-03-04] MEDS: DOCUSATE SODIUM 100 MG CAP PO SCH ×2 (08:30→20:46)
[2017-03-04] MEDS: LABETALOL HCL 100 MG TAB PO SCH ×3 (08:30→20:46)
[2017-03-04] MEDS: SENNOSIDES 8.6 MG TAB PO SCH ×2 (08:30→20:46)
[2017-03-04] MEDS: LIPASE/PROTEASE/AMYLASE (24,000/76,000/120,000) CAP PO SCH ×3 (08:30→17:20)
[2017-03-04] MEDS: LISINOPRIL 10 MG TAB PO SCH ×2 (08:30→20:46)
[2017-03-04] MEDS: LACTULOSE SYRUP 20 GM/30 ML CUP PO SCH ×4 (08:31→20:46)
[2017-03-04] MEDS: METOPROLOL TARTRATE 25 MG TAB PO SCH ×2 (08:31→20:46)
[2017-03-04] MEDS: PANTOPRAZOLE SOD 40 MG DELAYED RELEASE TAB PO SCH (08:31)
[2017-03-04] MEDS: POLYETHYLENE GLYCOL 17 GM PKG PO SCH ×2 (08:31→20:48)
[2017-03-04] MEDS: amLODIPine BESYLATE 5 MG TAB PO SCH (08:31)
[2017-03-04] MEDS: POTASSIUM CHLOR 20 MEQ PREMIX 100 ML IV PRN (08:32)
--- NOTE | 2017-03-04 08:41 | HHI.PR ---
Subjective Remarks The patient was resting comfortably in bed. He denied any pain. He said the procedure went well yesterday. Nursing was at the bedside. No acute concerns were noted. The patient says he has not been sleeping well since being in the hospital. He has been tolerating a diet. Has been having bowel movements through the ostomy. Objective Vitals Vital Signs Date Time Temp Pulse Resp B/P Pulse Ox O2 Delivery O2 Flow Rate FiO2 03/04/17 08:13 97 21 03/04/17 06:00 68 03/04/17 04:00 68 03/04/17 04:00 98.6 68 20 135/59 96 03/04/17 02:00 65 03/04/17 00:00 65 03/04/17 00:00 98.1 69 20 152/70 95 03/03/17 22:00 73 03/03/17 20:28 94 21 03/03/17 20:00 98.5 70 20 170/81 100 03/03/17 20:00 70 03/03/17 18:00 67 03/03/17 16:00 97.2 62 21 159/74 97 03/03/17 16:00 62 03/03/17 15:00 57 03/03/17 15:00 97.2 57 13 169/74 99 03/03/17 14:30 53 16 159/79 98 Nasal Cannula 2 03/03/17 14:15 60 14 166/86 99 Nasal Cannula 2 03/03/17 13:54 97.5 107 15 139/82 98 Nasal Cannula 2 03/03/17 10:00 64 I/O 03/03/17 03/03/17 03/03/17 03/04/17 03/04/17 03/04/17 07:00 15:00 23:00 07:00 15:00 23:00 Intake Total 0 ml 1400 ml 340 ml 680 ml Output Total 1400 ml 4635 ml 2800 ml 1350 ml Balance -1400 ml -3235 ml -2460 ml -670 ml Intake Oral 0 ml 0 ml 340 ml 680 ml IV Total 0 ml 0 ml 0 ml Other 1400 ml Output Urine Total 1300 ml 3100 ml 2700 ml 1350 ml Stool Total 100 ml 475 ml 100 ml 0 ml Estimated Blood Loss 60 ml Other 1000 ml Result Diagram: 03/04/1740603/04/17406 Imaging Last Impressions Chest X-Ray 02/25/17 0600 Signed Impressions: Service Date/Time: Saturday, February 25, 2017 04:15 - CONCLUSION: Clear lungs. Khanh Mata Jr., MD Head CT 02/19/172205 Signed Impressions: Service Date/Time: Sunday, February 19, 2017 00:30 - CONCLUSION: 1. No acute findings. No significant change from September 2016. Jermain Minaya MD Abdomen/Pelvis CT 02/19/172205 Signed Impressions: Service Date/Time: Sunday, February 19, 2017 00:36 - CONCLUSION: #1. 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 #2. Left lower quadrant colostomy. Fluid distention of blind-ending rectal pouch to 8.6 cm. Jermain Minaya MD Objective Remarks GENERAL: Resting comfortably in bed. HEAD: Atraumatic. Normocephalic. EYES: Pupils 2 mm bilaterally and reactive. NECK: Trachea midline. No stridor or obstruction. CARDIOVASCULAR: RRR. S1, S2. No S4. No murmur, no JVD. RESPIRATORY: No accessory muscle use. Clear to auscultation. GASTROINTESTINAL: Abdomen soft, non-tender, nondistended. Left lower quadrant ostomy in place. : Scrotal edema, bandages in place. Ellis catheter noted. MUSCULOSKELETAL: Extremities 1+ lower extremity peripheral edema. NEUROLOGICAL: O X 3, moves 4 limbs with strength. PSYCH: Flattened affect. Procedures Debridement Intubation/ extubation Medications and IVs Current Medications Medications (Trade) Dose Ordered Sig/Jeremias Route Start Time Stop Time Status Last Admin (NS Flush) 2 ml UNSCH PRN IV FLUSH 02/19/17 00:15 (NS Flush) 2 ml BID IV FLUSH 02/19/17 09:00 03/03/17 20:31 (Dulcolax Supp) 10 mg DAILY PRN RECTAL 02/19/17 00:15 (Heparin Inj) 5,000 units Q12HR SQ 02/19/17 09:00 03/04/17 08:28 (Narcan Inj) 0.4 mg UNSCH PRN IV 02/19/17 00:15 (Tylenol) 650 mg Q6H PRN PO 02/19/17 15:00 02/19/17 21:38 (Tears Naturale Opth Soln) 1 drop TID EACH EYE 02/19/17 18:00 03/04/17 08:29 (Zofran Inj) 4 mg Q6H PRN IV 02/19/17 15:00 03/02/17 20:39 (Colace) 100 mg BID PO 02/19/17 21:00 03/04/17 08:30 Miscellaneous Information 1 Q361D XX 02/19/17 15:00 02/19/17 15:00 (Chlorhexidine 2% Cloth) Taper DAILY@04 TOP 02/20/17 04:00 02/16/18 03:59 02/26/17 06:22 Chlorhexidine Gluconate 3 pack 3 pack UNSCH PRN TOP 02/19/17 15:00 Fentanyl Citrate 250 ml @ 0 mls/hr TITRATE IV 02/19/17 15:00 03/01/17 04:43 Potassium Chloride 100 ml @ 50 mls/hr Q2H PRN IV 02/19/17 15:00 02/20/17 09:30 Potassium Chloride 100 ml @ 50 mls/hr Q2H PRN IV 02/19/17 15:00 Potassium Chloride 100 ml @ 25 mls/hr UNSCH PRN IV 02/19/17 15:00 02/28/17 10:17 Potassium Chloride 100 ml @ 50 mls/hr Q2H PRN IV 02/19/17 15:00 03/04/17 08:32 (Magnesium Sulfate Inj/NS Inj) 100 ml @ 50 mls/hr UNSCH PRN IV 02/19/17 15:00 Magnesium Oxide 800 mg 800 mg UNSCH PRN PO 02/19/17 15:00 (Magnesium Sulfate Inj/NS Inj) 100 ml @ 50 mls/hr UNSCH PRN IV 02/19/17 15:00 02/22/17 09:20 Potassium Phosphate 2000 mg 2,000 mg Q4H PRN PO 02/19/17 15:00 (Sodium Phosphate Inj/NS 250 ml Inj) 250 ml @ 42 mls/hr UNSCH PRN IV 02/19/17 15:00 02/22/17 09:21 Potassium Phosphate 2000 mg 2,000 mg UNSCH PRN PO/TUBE 02/19/17 15:00 (Potassium Phosphate Inj/NS 250 ml Inj) 260 ml @ 42 mls/hr UNSCH PRN IV 02/19/17 15:00 (NS Flush) DAILY IVF 02/20/17 09:00 03/03/17 09:00 (NS Flush) UNSCH PRN IVF 02/19/17 15:45 (Creon 24-76-120) 2 cap TID PO 02/19/17 18:00 03/04/17 08:30 (Brethine Inj) 1 mg UNSCH PRN SQ 02/19/17 21:00 (Beneprotein Powder) 1 pack TID G-TUBE 02/21/17 18:00 03/04/17 08:29 (Levemir Inj) 10 units Q12HR SQ 02/22/17 21:00 03/04/17 08:28 (Senokot) 17.2 mg Q12HR PO 02/23/17 00:15 03/04/17 08:30 (Lactulose Liq) 30 ml QID PO 02/22/17 18:00 03/04/17 08:31 Polyethylene Glycol 17 gm 17 gm Q12HR PO 02/23/17 09:00 03/04/17 08:31 (Rocephin Inj/NS Inj) 100 ml @ 200 mls/hr Q24H IV 02/24/17 14:00 03/03/17 15:41 (Flagyl) 500 mg Q8HR PO 02/25/17 17:00 03/04/17 04:16 (Protonix) 40 mg DAILY PO 03/02/17 09:00 03/04/17 08:31 (Trandate Inj) 20 mg Q3H PRN IV PUSH 03/02/17 07:00 03/04/17 01:10 (D50w (Vial) Inj) 25 ml UNSCH PRN IV PUSH 03/02/17 07:15 (Glucagon Inj) 1 mg UNSCH PRN OTHER 03/02/17 07:15 (Lasix Inj) 20 mg BID@09,18 IV PUSH 03/02/17 09:00 03/04/17 08:29 (Trandate) 100 mg Q12HR PO 03/02/17 09:30 03/04/17 08:30 (Prinivil) 10 mg BID PO 03/03/17 09:00 03/04/17 08:30 (Lopressor) 50 mg Q12HR PO 03/03/17 09:00 03/04/17 08:31 (Norvasc) 5 mg DAILY PO 03/03/17 09:00 03/04/17 08:31 Miscellaneous Information ALL NURSING DEPARTME... UNSCH PRN .XX 03/03/17 13:51 03/04/17 13:50 Date of Insertion: Feb 19, 2017 Line: Central Venous Catheter Side: Left Location: Internal, Jugular A/P Problem List: (1) Sepsis ICD Code: A41.9 Status: Acute (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 Postop excision and debridement with washout of necrotizing fasciitis of the perineum, scrotum, and bilateral groin region secondary to Necrotizing fasciitis/Tony's Gangrene involving scrotum, perineum, bilateral groin regions. Blood cultures 2 02/18 viridans strep, pleomorphic gram -positive rods. Wound culture 02/19 Morganella and Proteus. - continue antibiotics per ID. - wound care per urology. - OR on for washout/dressing change/possible closure. Hypotension/ HTN Hypotension likely s/t sepsis. Currently off all vasopressors. Echocardiogram 2013 revealed EF 50-55%; No regional wall motion abnormality; Mildly dilated left atrium. - currently on multiple antihypertensive agents. Adjust as needed. - continue antibiotics. Acute respiratory failure S/p intubation and extubation, now on nasal cannula. - Bronchodilator therapy as needed. - incentive spirometry. - encourage ambulation. Metabolic encephalopathy The pt was sedated while intubated. CT head 02/18 revealed no acute intracranial findings. - Holding home medication Restoril. - neuro checks. 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 - continue ostomy care. Chronic pancreatitis Not in acute exacerbation. - Resumed Creon 2 tablets 3 times a day. Diabetes mellitus Currently off insulin drip. Glucose well controlled 03/04. - continue sliding scale insulin with Accu-Cheks ac hs to maintain euglycemia/ medium regimen. 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 - Recommended Maxorb 3 days/keep heels elevated off bed. Lower extremity edema On Lasix. - continue diuresis for now. - keep legs elevated. - encourage ambulation. Prophylaxis: SCD/heparin subcutaneous. Discharge Planning Awaiting clinical improvement. Problem Qualifiers (1) Sepsis: Qualified Code: A41.9 - Sepsis, due to unspecified organism (2) Altered mental status: Qualified Code: R41.82 - Altered mental status, unspecified altered mental status type (3) Leucocytosis: Qualified Code: D72.829 - Leukocytosis, unspecified type (4) Diabetes type 1, uncontrolled: Qualified Code: E10.8 - Uncontrolled type 1 diabetes mellitus with complication Jerome Gaona DO Mar 04, 2017 08:41
--- NOTE | 2017-03-04 08:44 | HHI.PR ---
Subjective Patient symptoms today Pt seen and examined. Feels well. Tolerating PO Objective Vital Signs Vital Signs Date Time Temp Pulse Resp B/P Pulse Ox O2 Delivery O2 Flow Rate FiO2 03/04/17 08:13 97 21 03/04/17 06:00 68 03/04/17 04:00 68 03/04/17 04:00 98.6 68 20 135/59 96 03/04/17 02:00 65 03/04/17 00:00 65 03/04/17 00:00 98.1 69 20 152/70 95 03/03/17 22:00 73 03/03/17 20:28 94 21 03/03/17 20:00 98.5 70 20 170/81 100 03/03/17 20:00 70 03/03/17 18:00 67 03/03/17 16:00 97.2 62 21 159/74 97 03/03/17 16:00 62 03/03/17 15:00 57 03/03/17 15:00 97.2 57 13 169/74 99 03/03/17 14:30 53 16 159/79 98 Nasal Cannula 2 03/03/17 14:15 60 14 166/86 99 Nasal Cannula 2 03/03/17 13:54 97.5 107 15 139/82 98 Nasal Cannula 2 03/03/17 10:00 64 Intake & Output 03/04/17 03/04/17 07:00 19:00 Intake Total 1020 ml Output Total 4150 ml Balance -3130 ml Intake Oral 1020 ml IV Total 0 ml Output Urine Total 4050 ml Stool Total 100 ml Result Diagram: 03/04/17 0407 03/04/17 0407 Objective Remarks Abd:soft,nt,nd Wound: dressing intact and reinforced Ellis: urine clear 02/25 Abd:soft,nt,nd Wound: dressings intact; aneta in place Ellis: urine clear 02/27 Abd:soft,nt,nd Wound: VAC in place and draining Ellis: urine clear 03/04 Abd:soft,nt,nd Wound: Dressings intact Ellis: urine clear Medications and IVs Current Medications Medications (Trade) Dose Ordered Sig/Jeremias Route Start Time Stop Time Status Last Admin (NS Flush) 2 ml UNSCH PRN IV FLUSH 02/19/17 00:15 (NS Flush) 2 ml BID IV FLUSH 02/19/17 09:00 03/03/17 20:31 (Dulcolax Supp) 10 mg DAILY PRN RECTAL 02/19/17 00:15 (Heparin Inj) 5,000 units Q12HR SQ 02/19/17 09:00 03/04/17 08:28 (Narcan Inj) 0.4 mg UNSCH PRN IV 02/19/17 00:15 (Tylenol) 650 mg Q6H PRN PO 02/19/17 15:00 02/19/17 21:38 (Tears Naturale Opth Soln) 1 drop TID EACH EYE 02/19/17 18:00 03/04/17 08:29 (Zofran Inj) 4 mg Q6H PRN IV 02/19/17 15:00 03/02/17 20:39 (Colace) 100 mg BID PO 02/19/17 21:00 03/04/17 08:30 Miscellaneous Information 1 Q361D XX 02/19/17 15:00 02/19/17 15:00 (Chlorhexidine 2% Cloth) Taper DAILY@04 TOP 02/20/17 04:00 02/16/18 03:59 02/26/17 06:22 Chlorhexidine Gluconate 3 pack 3 pack UNSCH PRN TOP 02/19/17 15:00 Fentanyl Citrate 250 ml @ 0 mls/hr TITRATE IV 02/19/17 15:00 03/01/17 04:43 Potassium Chloride 100 ml @ 50 mls/hr Q2H PRN IV 02/19/17 15:00 02/20/17 09:30 Potassium Chloride 100 ml @ 50 mls/hr Q2H PRN IV 02/19/17 15:00 Potassium Chloride 100 ml @ 25 mls/hr UNSCH PRN IV 02/19/17 15:00 02/28/17 10:17 Potassium Chloride 100 ml @ 50 mls/hr Q2H PRN IV 02/19/17 15:00 03/04/17 08:32 (Magnesium Sulfate Inj/NS Inj) 100 ml @ 50 mls/hr UNSCH PRN IV 02/19/17 15:00 Magnesium Oxide 800 mg 800 mg UNSCH PRN PO 02/19/17 15:00 (Magnesium Sulfate Inj/NS Inj) 100 ml @ 50 mls/hr UNSCH PRN IV 02/19/17 15:00 02/22/17 09:20 Potassium Phosphate 2000 mg 2,000 mg Q4H PRN PO 02/19/17 15:00 (Sodium Phosphate Inj/NS 250 ml Inj) 250 ml @ 42 mls/hr UNSCH PRN IV 02/19/17 15:00 02/22/17 09:21 Potassium Phosphate 2000 mg 2,000 mg UNSCH PRN PO/TUBE 02/19/17 15:00 (Potassium Phosphate Inj/NS 250 ml Inj) 260 ml @ 42 mls/hr UNSCH PRN IV 02/19/17 15:00 (NS Flush) DAILY IVF 02/20/17 09:00 03/03/17 09:00 (NS Flush) UNSCH PRN IVF 02/19/17 15:45 (Creon 24-76-120) 2 cap TID PO 02/19/17 18:00 03/04/17 08:30 (Brethine Inj) 1 mg UNSCH PRN SQ 02/19/17 21:00 (Beneprotein Powder) 1 pack TID G-TUBE 02/21/17 18:00 03/04/17 08:29 (Levemir Inj) 10 units Q12HR SQ 02/22/17 21:00 03/04/17 08:28 (Senokot) 17.2 mg Q12HR PO 02/23/17 00:15 03/04/17 08:30 (Lactulose Liq) 30 ml QID PO 02/22/17 18:00 03/04/17 08:31 Polyethylene Glycol 17 gm 17 gm Q12HR PO 02/23/17 09:00 03/04/17 08:31 (Rocephin Inj/NS Inj) 100 ml @ 200 mls/hr Q24H IV 02/24/17 14:00 03/03/17 15:41 (Flagyl) 500 mg Q8HR PO 02/25/17 17:00 03/04/17 04:16 (Protonix) 40 mg DAILY PO 03/02/17 09:00 03/04/17 08:31 (Trandate Inj) 20 mg Q3H PRN IV PUSH 03/02/17 07:00 03/04/17 01:10 (D50w (Vial) Inj) 25 ml UNSCH PRN IV PUSH 03/02/17 07:15 (Glucagon Inj) 1 mg UNSCH PRN OTHER 03/02/17 07:15 (Lasix Inj) 20 mg BID@09,18 IV PUSH 03/02/17 09:00 03/04/17 08:29 (Trandate) 100 mg Q12HR PO 03/02/17 09:30 03/04/17 08:30 (Prinivil) 10 mg BID PO 03/03/17 09:00 03/04/17 08:30 (Lopressor) 50 mg Q12HR PO 03/03/17 09:00 03/04/17 08:31 (Norvasc) 5 mg DAILY PO 03/03/17 09:00 03/04/17 08:31 Miscellaneous Information ALL NURSING DEPARTME... UNSCH PRN .XX 03/03/17 13:51 03/04/17 13:50 Assessment and Plan Assessment and Plan 66 y.o male with necrotizing fascitis s/p debridement For washout in AM 02/25 66 y.o male with necrotizing fascitis s/p debridement with washout Plastics consult to help with closure For washout in AM 02/27 66 y.o male with necrotizing fascitis s/p debridement with washout and VAC placement Will change VAC tomorrow in OR; will attempt to close if possible NPO after MN 03/04 66 y.o male with necrotizing fascitis s/p debridement with washout; dressing change Unable to close wound as yet as not enough granulation tissue OR on for washout/dressing change/possible closure Norbert Cassidy DO Mar 04, 2017 08:44
[2017-03-04] MEDS: SODIUM CHLORIDE 0.9% FLUSH 10 ML FLUSH IVF SCH (09:00)
[2017-03-04 10:31] LABS: MAGNESIUM 1.7 MG/DL (1.5-2.5)
--- NOTE | 2017-03-04 12:49 | HHI.IDPN ---
Note Infectious Disease Note Notes reviewed. Post debridement of perineum 01/31. Alert, looks a bit lethargic. Says he feels okay. On room air. Afebrile. Admitted with altered mental status along with severe dehydration. A CT scan of the abdomen and pelvis showed gas accumulation in the soft tissue of the perineum, scrotum and inguinal region associated with marked scrotal wall thickening characteristic of necrotizing type of infection. The patient was evaluated by urology and he was taken to surgery and underwent debridement of necrotic tissue and there was also purulent drainage as well. PAST MEDICAL HISTORY 1. Diabetes mellitus. 2. Hypertension. 3. Atrial fibrillation. 4. History of megacolon. 5. Arthritis. 6. Tonsillectomy. 7. Colostomy. 8. Oral surgery. 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 ALLERGIES FLOMAX. ANTIBIOTICS: 1. Ceftriaxone. 2. Flagyl. OBJECTIVE: Vital Signs Date Time Temp Pulse Resp B/P Pulse Ox O2 Delivery O2 Flow Rate FiO2 03/04/17 12:00 98.4 69 22 134/64 98 03/04/17 12:00 69 03/04/17 10:00 70 03/04/17 08:13 97 21 03/04/17 08:00 71 03/04/17 08:00 98.6 71 14 136/65 97 03/04/17 06:00 68 03/04/17 04:00 68 03/04/17 04:00 98.6 68 20 135/59 96 03/04/17 02:00 65 03/04/17 00:00 65 03/04/17 00:00 98.1 69 20 152/70 95 03/03/17 22:00 73 03/03/17 20:28 94 21 03/03/17 20:00 98.5 70 20 170/81 100 03/03/17 20:00 70 03/03/17 18:00 67 03/03/17 16:00 97.2 62 21 159/74 97 03/03/17 16:00 62 03/03/17 15:00 57 03/03/17 15:00 97.2 57 13 169/74 99 03/03/17 14:30 53 16 159/79 98 Nasal Cannula 2 03/03/17 14:15 60 14 166/86 99 Nasal Cannula 2 03/03/17 13:54 97.5 107 15 139/82 98 Nasal Cannula 2 03/03/17 03/03/17 03/04/17 15:00 23:00 07:00 Intake Total 1400 ml 340 ml 680 ml Output Total 4635 ml 2800 ml 1350 ml Balance -3235 ml -2460 ml -670 ml Intake Oral 0 ml 340 ml 680 ml IV Total 0 ml 0 ml Other 1400 ml Output Urine Total 3100 ml 2700 ml 1350 ml Stool Total 475 ml 100 ml 0 ml Estimated Blood Loss 60 ml Other 1000 ml Laboratory Tests Test 03/04/17 04:07 White Blood Count 16.1 TH/MM3 Red Blood Count 3.64 MIL/MM3 Hemoglobin 10.6 GM/DL Hematocrit 31.4 % Mean Corpuscular Volume 86.3 FL Mean Corpuscular Hemoglobin 29.1 PG Mean Corpuscular Hemoglobin 33.7 % Concent Red Cell Distribution Width 15.2 % Platelet Count 314 TH/MM3 Mean Platelet Volume 7.7 FL Neutrophils (%) (Auto) 79.2 % Lymphocytes (%) (Auto) 11.8 % Monocytes (%) (Auto) 7.7 % Eosinophils (%) (Auto) 0.8 % Basophils (%) (Auto) 0.5 % Neutrophils # (Auto) 12.7 TH/MM3 Lymphocytes # (Auto) 1.9 TH/MM3 Monocytes # (Auto) 1.2 TH/MM3 Eosinophils # (Auto) 0.1 TH/MM3 Basophils # (Auto) 0.1 TH/MM3 CBC Comment DIFF FINAL Differential Comment Laboratory Tests Test 03/03/17 03/04/17 18:33 04:07 Potassium Level 4.0 MEQ/L 3.4 MEQ/L Sodium Level 141 MEQ/L Chloride Level 99 MEQ/L Carbon Dioxide Level 35.3 MEQ/L Anion Gap 7 MEQ/L Blood Urea Nitrogen 15 MG/DL Creatinine 1.15 MG/DL Estimat Glomerular Filtration 63 ML/MIN Rate Random Glucose 148 MG/DL Calcium Level 7.9 MG/DL Phosphorus Level 3.0 MG/DL Magnesium Level 1.7 MG/DL Microbiology Date/Time Procedure Status Source Growth 02/18/17 22:35 Aerobic Blood Culture - Preliminary Resulted Blood Peripheral Streptococcus Species Pleomorphic Gram Positive Rods 02/18/17 22:35 Anaerobic Blood Culture - Final Resulted Viridans Streptococcus Grp 02/18/17 22:40 Aerobic Blood Culture - Preliminary Resulted Blood Peripheral NO GROWTH IN 3 DAYS 02/18/17 22:40 Anaerobic Blood Culture - Preliminary Resulted Viridans Streptococcus Grp 02/19/17 11:36 Gram Stain - Final Resulted Wound Other 02/19/17 11:36 Wound Culture - Preliminary Resulted Gram Negative Jean-Pierre 02/19/17 11:36 Acid Fast Stain - Final Resulted Wound Other NO ACID FAST BACILLI SEEN 02/19/17 11:36 Mycobacterial Culture Resulted Wound Other Pending 02/19/17 11:36 Fungal Smear - Final Resulted Wound Other NO FUNGAL ELEMENTS SEEN. 02/19/17 11:36 Fungal Culture Resulted Wound Other Pending 02/19/17 11:36 Gram Stain - Final Resulted Wound Other 02/19/17 11:36 Wound Culture - Preliminary Resulted Gram Negative Jean-Pierre 02/19/17 11:36 Acid Fast Stain - Final Resulted Wound Other NO ACID FAST BACILLI SEEN 02/19/17 11:36 Mycobacterial Culture Resulted Wound Other Pending 02/19/17 11:36 Fungal Smear - Final Resulted Wound Other NO FUNGAL ELEMENTS SEEN. 02/19/17 11:36 Fungal Culture Resulted Wound Other Pending PHYSICAL EXAMINATION GENERAL: Alert and oriented. HEENT: No icterus. Oropharynx - Moist oral mucosa. NECK: No swelling or adenopathy. LUNGS: Clear. HEART: Irregular rate and rhythm. No murmurs, rubs or gallops. ABDOMEN: Bowel sounds present, soft, no tenderness appreciated. : The scrotum/perineum is post debridement. SKIN: No rash. Dry excoriated areas on the leg. 1+ edema of the legs and thighs. NEURO: Non focal. IMPRESSION 1. 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 strep viridans, gram positive jean-pierre and gram neg jean-pierre. 3. Acute kidney disease. renal function improved. 4. Leukocytosis secondary to infection. WBC fluctuating. RECOMMENDATIONS 1. Continue Ceftriaxone. 2. Continue Flagyl. 3. Monitor WBC. 4. Follow clinically. Marko Hahn MD Mar 04, 2017 12:49
[2017-03-04] MEDS: cefTRIAXone INJ 2,000 MG in SODIUM CHLORIDE 0.9% INJ 100 ML IV SCH (14:55)
[2017-03-05] VITALS (11 sets, daily range): BP systolic 116–146; BP diastolic 56–66; PULSE 60–80; RESP 17–23; TEMP 98.1–99.4; O2SAT 94–98
[2017-03-05] MEDS: CHLORHEXIDINE GLUCONATE 2 % 1 PACK (2 CLOTHS) TOP SCH ×2 (04:00→22:32)
[2017-03-05] MEDS: metroNIDAZOLE 500 MG TAB PO SCH ×3 (04:11→20:41)
[2017-03-05 06:08] LABS: HEMATOCRIT 30.8 % (39.0-51.0); MEAN CELL VOLUME 86.8 FL (80.0-100.0); MEAN CORPUSCULAR HEMOGLOBIN 29.3 PG (27.0-34.0); MEAN CORPUSCULAR HGB CONC 33.8 % (32.0-36.0); PLATELET COUNT 243 TH/MM3 (150-450); RED BLOOD COUNT 3.55 MIL/MM3 (4.50-5.90); REVIEW FLAG FINAL; WHITE BLOOD COUNT 13.8 TH/MM3 (4.0-11.0)
[2017-03-05 06:28] LABS: BICARBONATE 35.1 MEQ/L (21.0-32.0); MAGNESIUM 1.7 MG/DL (1.5-2.5); POTASSIUM 3.4 MEQ/L (3.5-5.1)
[2017-03-05] MEDS: INSULIN ASPART SUPPLEMENTAL SCALE SQ SCH ×4 (06:40→22:31)
--- NOTE | 2017-03-05 08:16 | HHI.PR ---
Subjective Patient symptoms today Pt seen and examined. No complaints; wishes to get OOB Objective Vital Signs Vital Signs Date Time Temp Pulse Resp B/P Pulse Ox O2 Delivery O2 Flow Rate FiO2 03/05/17 06:00 64 03/05/17 04:00 98.8 68 21 146/66 96 03/05/17 04:00 68 03/05/17 02:00 68 03/05/17 00:00 98.5 68 20 125/60 97 03/05/17 00:00 68 03/04/17 22:00 82 03/04/17 20:13 97 21 03/04/17 20:00 98.4 72 20 137/62 95 03/04/17 20:00 72 03/04/17 16:00 98.8 65 17 155/71 97 03/04/17 16:00 65 03/04/17 14:00 63 03/04/17 12:00 98.4 69 22 134/64 98 03/04/17 12:00 69 03/04/17 10:00 70 Intake & Output 03/05/17 03/05/17 07:00 19:00 Intake Total 960 ml Output Total 3350 ml Balance -2390 ml Intake Oral 960 ml Output Urine Total 3300 ml Stool Total 50 ml Result Diagram: 03/05/17 0544 03/05/1744 Objective Remarks Abd:soft,nt,nd Wound: dressing intact and reinforced Ellis: urine clear 02/25 Abd:soft,nt,nd Wound: dressings intact; aneta in place Ellis: urine clear 02/27 Abd:soft,nt,nd Wound: VAC in place and draining Ellis: urine clear 03/04 Abd:soft,nt,nd Wound: Dressings intact Ellis: urine clear 03/05 Abd:soft,nt,nd Wound: Dressings intact Ellis: urine clear Medications and IVs Current Medications Medications (Trade) Dose Ordered Sig/Jeremias Route Start Time Stop Time Status Last Admin (NS Flush) 2 ml UNSCH PRN IV FLUSH 02/19/17 00:15 (NS Flush) 2 ml BID IV FLUSH 02/19/17 09:00 03/04/17 20:47 (Dulcolax Supp) 10 mg DAILY PRN RECTAL 02/19/17 00:15 (Heparin Inj) 5,000 units Q12HR SQ 02/19/17 09:00 03/04/17 20:46 (Narcan Inj) 0.4 mg UNSCH PRN IV 02/19/17 00:15 (Tylenol) 650 mg Q6H PRN PO 02/19/17 15:00 02/19/17 21:38 (Tears Naturale Opth Soln) 1 drop TID EACH EYE 02/19/17 18:00 03/04/17 17:19 (Zofran Inj) 4 mg Q6H PRN IV 02/19/17 15:00 03/02/17 20:39 (Colace) 100 mg BID PO 02/19/17 21:00 03/04/17 20:46 Miscellaneous Information 1 Q361D XX 02/19/17 15:00 02/19/17 15:00 (Chlorhexidine 2% Cloth) Taper DAILY@04 TOP 02/20/17 04:00 02/16/18 03:59 02/26/17 06:22 Chlorhexidine Gluconate 3 pack 3 pack UNSCH PRN TOP 02/19/17 15:00 Potassium Chloride 100 ml @ 50 mls/hr Q2H PRN IV 02/19/17 15:00 02/20/17 09:30 Potassium Chloride 100 ml @ 50 mls/hr Q2H PRN IV 02/19/17 15:00 Potassium Chloride 100 ml @ 25 mls/hr UNSCH PRN IV 02/19/17 15:00 02/28/17 10:17 Potassium Chloride 100 ml @ 50 mls/hr Q2H PRN IV 02/19/17 15:00 03/04/17 08:32 (Magnesium Sulfate Inj/NS Inj) 100 ml @ 50 mls/hr UNSCH PRN IV 02/19/17 15:00 Magnesium Oxide 800 mg 800 mg UNSCH PRN PO 02/19/17 15:00 (Magnesium Sulfate Inj/NS Inj) 100 ml @ 50 mls/hr UNSCH PRN IV 02/19/17 15:00 02/22/17 09:20 Potassium Phosphate 2000 mg 2,000 mg Q4H PRN PO 02/19/17 15:00 (Sodium Phosphate Inj/NS 250 ml Inj) 250 ml @ 42 mls/hr UNSCH PRN IV 02/19/17 15:00 02/22/17 09:21 Potassium Phosphate 2000 mg 2,000 mg UNSCH PRN PO/TUBE 02/19/17 15:00 (Potassium Phosphate Inj/NS 250 ml Inj) 260 ml @ 42 mls/hr UNSCH PRN IV 02/19/17 15:00 (NS Flush) DAILY IVF 02/20/17 09:00 03/03/17 09:00 (NS Flush) UNSCH PRN IVF 02/19/17 15:45 (Creon 24-76-120) 2 cap TID PO 02/19/17 18:00 03/04/17 17:20 (Brethine Inj) 1 mg UNSCH PRN SQ 02/19/17 21:00 (Beneprotein Powder) 1 pack TID G-TUBE 02/21/17 18:00 03/04/17 17:19 (Levemir Inj) 10 units Q12HR SQ 02/22/17 21:00 03/04/17 20:48 (Senokot) 17.2 mg Q12HR PO 02/23/17 00:15 03/04/17 20:46 (Lactulose Liq) 30 ml QID PO 02/22/17 18:00 03/04/17 20:46 Polyethylene Glycol 17 gm 17 gm Q12HR PO 02/23/17 09:00 03/04/17 08:31 (Rocephin Inj/NS Inj) 100 ml @ 200 mls/hr Q24H IV 02/24/17 14:00 03/04/17 14:55 (Flagyl) 500 mg Q8HR PO 02/25/17 17:00 03/05/17 04:11 (Protonix) 40 mg DAILY PO 03/02/17 09:00 03/04/17 08:31 (Trandate Inj) 20 mg Q3H PRN IV PUSH 03/02/17 07:00 03/04/17 01:10 (D50w (Vial) Inj) 25 ml UNSCH PRN IV PUSH 03/02/17 07:15 (Glucagon Inj) 1 mg UNSCH PRN OTHER 03/02/17 07:15 (Lasix Inj) 20 mg BID@09,18 IV PUSH 03/02/17 09:00 03/04/17 17:20 (Trandate) 100 mg Q12HR PO 03/02/17 09:30 4/11/17 20:46 (Prinivil) 10 mg BID PO 03/03/17 09:00 03/04/17 20:46 (Lopressor) 50 mg Q12HR PO 03/03/17 09:00 03/04/17 20:46 (Norvasc) 5 mg DAILY PO 03/03/17 09:00 03/04/17 08:31 Assessment and Plan Assessment and Plan 66 y.o male with necrotizing fascitis s/p debridement For washout in AM 02/25 66 y.o male with necrotizing fascitis s/p debridement with washout Plastics consult to help with closure For washout in AM 02/27 66 y.o male with necrotizing fascitis s/p debridement with washout and VAC placement Will change VAC tomorrow in OR; will attempt to close if possible NPO after MN 03/04 66 y.o male with necrotizing fascitis s/p debridement with washout; dressing change Unable to close wound as yet as not enough granulation tissue OR on for washout/dressing change/possible closure 03/05 66 y.o male with necrotizing fascitis s/p debridement with washout; dressing change For washout with dressing change/possible closure tomorrow NPO after MN Norbert Cassidy DO Mar 05, 2017 08:16
[2017-03-05] MEDS: POLYETHYLENE GLYCOL 17 GM PKG PO SCH ×2 (08:54→20:39)
[2017-03-05] MEDS: LISINOPRIL 10 MG TAB PO SCH ×2 (08:54→20:39)
[2017-03-05] MEDS: PANTOPRAZOLE SOD 40 MG DELAYED RELEASE TAB PO SCH (08:54)
[2017-03-05] MEDS: amLODIPine BESYLATE 5 MG TAB PO SCH (08:54)
[2017-03-05] MEDS: LACTULOSE SYRUP 20 GM/30 ML CUP PO SCH ×4 (08:54→20:45)
[2017-03-05] MEDS: METOPROLOL TARTRATE 25 MG TAB PO SCH ×2 (08:54→20:38)
[2017-03-05] MEDS: SENNOSIDES 8.6 MG TAB PO SCH ×2 (08:54→20:38)
[2017-03-05] MEDS: DOCUSATE SODIUM 100 MG CAP PO SCH ×2 (08:55→20:43)
[2017-03-05] MEDS: HEPARIN SODIUM - SQ 10,000 UNITS/ML VIAL SQ SCH ×2 (08:55→20:41)
[2017-03-05] MEDS: LIPASE/PROTEASE/AMYLASE (24,000/76,000/120,000) CAP PO SCH ×3 (08:55→17:49)
[2017-03-05] MEDS: FUROSEMIDE 20 MG/2 ML VIAL IV PUSH SCH ×2 (08:55→17:48)
[2017-03-05] MEDS: SODIUM CHLORIDE 0.9% FLUSH 10 ML FLUSH IVF SCH (08:56)
[2017-03-05] MEDS: BENEPROTEIN POWDER 1 PACK G-TUBE SCH ×3 (08:56→18:00)
[2017-03-05] MEDS: ARTIFICIAL TEARS OPTH SOLN 15 ML BTL EACH EYE SCH ×3 (08:56→18:00)
[2017-03-05] MEDS: SODIUM CHLORIDE 0.9% FLUSH 10 ML FLUSH IV FLUSH SCH ×2 (08:56→20:43)
[2017-03-05] MEDS: INSULIN DETEMIR 100 UNITS/ML VIAL SQ SCH (08:57)
[2017-03-05] MEDS: LABETALOL HCL 100 MG TAB PO SCH (08:57)
[2017-03-05] MEDS ORDERED: POTASSIUM CHLORIDE 20 MEQ CONTROLLED RELEASE TAB PO ONE (10:15)
[2017-03-05] MEDS: cefTRIAXone INJ 2,000 MG in SODIUM CHLORIDE 0.9% INJ 100 ML IV SCH (12:57)
--- NOTE | 2017-03-05 15:09 | HHI.PR ---
Subjective Remarks The pt was resting comfortably in bed. No acute complaints. He said he was unaware he would be going for debridement in the AM. Discussed with nursing. Objective Vitals Vital Signs Date Time Temp Pulse Resp B/P Pulse Ox O2 Delivery O2 Flow Rate FiO2 03/05/17 14:00 76 03/05/17 12:00 99.0 80 23 116/58 94 03/05/17 12:00 80 03/05/17 10:00 68 03/05/17 08:25 96 21 03/05/17 08:00 99.4 70 21 144/66 96 03/05/17 08:00 70 03/05/17 06:00 64 03/05/17 04:00 98.8 68 21 146/66 96 03/05/17 04:00 68 03/05/17 02:00 68 03/05/17 00:00 98.5 68 20 125/60 97 03/05/17 00:00 68 03/04/17 22:00 82 03/04/17 20:13 97 21 03/04/17 20:00 98.4 72 20 137/62 95 03/04/17 20:00 72 03/04/17 16:00 98.8 65 17 155/71 97 03/04/17 16:00 65 I/O 03/04/17 03/04/17 03/04/17 03/05/17 03/05/17 03/05/17 07:00 15:00 23:00 07:00 15:00 23:00 Intake Total 680 ml 754 ml 480 ml 480 ml 799 ml Output Total 1350 ml 2675 ml 1850 ml 1500 ml 2100 ml Balance -670 ml -1921 ml -1370 ml -1020 ml -1301 ml Intake Oral 680 ml 540 ml 480 ml 480 ml 480 ml IV Total 0 ml 214 ml 319 ml Output Urine Total 1350 ml 2475 ml 1850 ml 1450 ml 2100 ml Stool Total 0 ml 200 ml 0 ml 50 ml 0 ml Result Diagram: 03/05/17 0544 03/05/17 0544 Imaging Last Impressions Chest X-Ray 02/25/17 0600 Signed Impressions: Service Date/Time: Saturday, February 25, 2017 04:15 - CONCLUSION: Clear lungs. Khanh Mata Jr., MD Head CT 02/19/172205 Signed Impressions: Service Date/Time: Sunday, February 19, 2017 00:30 - CONCLUSION: 1. No acute findings. No significant change from September 2016. Jermain Minaya MD Abdomen/Pelvis CT 02/19/172205 Signed Impressions: Service Date/Time: Sunday, February 19, 2017 00:36 - CONCLUSION: #1. Abnormal gas accumulation in the soft tissues of the perineum, scrotum and inguinal regions associated with marked scrotal wall thickening, hydroceles and characteristic of a necrotizing type infection/Toyn's gangrene. #2. Left lower quadrant colostomy. Fluid distention of blind-ending rectal pouch to 8.6 cm. Jermain Minaya MD Objective Remarks GENERAL: Resting comfortably in bed. HEAD: Atraumatic. Normocephalic. EYES: Pupils 2 mm bilaterally and reactive. NECK: Trachea midline. No stridor or obstruction. CARDIOVASCULAR: RRR. S1, S2. No S4. No murmur, no JVD. RESPIRATORY: No accessory muscle use. Clear to auscultation. GASTROINTESTINAL: Abdomen soft, non-tender, nondistended. Left lower quadrant ostomy in place. : Scrotal edema, bandages in place. Ellis catheter noted. MUSCULOSKELETAL: Extremities 1+ lower extremity peripheral edema. NEUROLOGICAL: O X 3, moves 4 limbs with strength. PSYCH: Flattened affect. Procedures Debridement Intubation/ extubation Medications and IVs Current Medications Medications (Trade) Dose Ordered Sig/Jeremias Route Start Time Stop Time Status Last Admin (NS Flush) 2 ml UNSCH PRN IV FLUSH 02/19/17 00:15 (NS Flush) 2 ml BID IV FLUSH 02/19/17 09:00 03/05/17 08:56 (Dulcolax Supp) 10 mg DAILY PRN RECTAL 02/19/17 00:15 (Heparin Inj) 5,000 units Q12HR SQ 02/19/17 09:00 03/05/17 08:55 (Narcan Inj) 0.4 mg UNSCH PRN IV 02/19/17 00:15 (Tylenol) 650 mg Q6H PRN PO 02/19/17 15:00 02/19/17 21:38 (Tears Naturale Opth Soln) 1 drop TID EACH EYE 02/19/17 18:00 03/05/17 12:57 (Zofran Inj) 4 mg Q6H PRN IV 02/19/17 15:00 03/02/17 20:39 (Colace) 100 mg BID PO 02/19/17 21:00 03/05/17 08:55 Miscellaneous Information 1 Q361D XX 02/19/17 15:00 02/19/17 15:00 (Chlorhexidine 2% Cloth) Taper DAILY@04 TOP 02/20/17 04:00 02/16/18 03:59 02/26/17 06:22 Chlorhexidine Gluconate 3 pack 3 pack UNSCH PRN TOP 02/19/17 15:00 Potassium Chloride 100 ml @ 50 mls/hr Q2H PRN IV 02/19/17 15:00 02/20/17 09:30 Potassium Chloride 100 ml @ 50 mls/hr Q2H PRN IV 02/19/17 15:00 Potassium Chloride 100 ml @ 25 mls/hr UNSCH PRN IV 02/19/17 15:00 02/28/17 10:17 Potassium Chloride 100 ml @ 50 mls/hr Q2H PRN IV 02/19/17 15:00 03/04/17 08:32 (Magnesium Sulfate Inj/NS Inj) 100 ml @ 50 mls/hr UNSCH PRN IV 02/19/17 15:00 Magnesium Oxide 800 mg 800 mg UNSCH PRN PO 02/19/17 15:00 (Magnesium Sulfate Inj/NS Inj) 100 ml @ 50 mls/hr UNSCH PRN IV 02/19/17 15:00 02/22/17 09:20 Potassium Phosphate 2000 mg 2,000 mg Q4H PRN PO 02/19/17 15:00 (Sodium Phosphate Inj/NS 250 ml Inj) 250 ml @ 42 mls/hr UNSCH PRN IV 02/19/17 15:00 02/22/17 09:21 Potassium Phosphate 2000 mg 2,000 mg UNSCH PRN PO/TUBE 02/19/17 15:00 (Potassium Phosphate Inj/NS 250 ml Inj) 260 ml @ 42 mls/hr UNSCH PRN IV 02/19/17 15:00 (NS Flush) DAILY IVF 02/20/17 09:00 03/03/17 09:00 (NS Flush) UNSCH PRN IVF 02/19/17 15:45 (Creon 24-76-120) 2 cap TID PO 02/19/17 18:00 03/05/17 12:57 (Brethine Inj) 1 mg UNSCH PRN SQ 02/19/17 21:00 (Beneprotein Powder) 1 pack TID G-TUBE 02/21/17 18:00 03/05/17 12:57 (Levemir Inj) 10 units Q12HR SQ 02/22/17 21:00 03/05/17 08:57 (Senokot) 17.2 mg Q12HR PO 02/23/17 00:15 03/05/17 08:54 (Lactulose Liq) 30 ml QID PO 02/22/17 18:00 03/05/17 12:57 Polyethylene Glycol 17 gm 17 gm Q12HR PO 02/23/17 09:00 03/05/17 08:54 (Rocephin Inj/NS Inj) 100 ml @ 200 mls/hr Q24H IV 02/24/17 14:00 03/05/17 12:57 (Flagyl) 500 mg Q8HR PO 02/25/17 17:00 03/05/17 12:57 (Protonix) 40 mg DAILY PO 03/02/17 09:00 03/05/17 08:54 (Trandate Inj) 20 mg Q3H PRN IV PUSH 03/02/17 07:00 03/04/17 01:10 (D50w (Vial) Inj) 25 ml UNSCH PRN IV PUSH 03/02/17 07:15 (Glucagon Inj) 1 mg UNSCH PRN OTHER 03/02/17 07:15 (Lasix Inj) 20 mg BID@09,18 IV PUSH 03/02/17 09:00 03/05/17 08:55 (Trandate) 100 mg Q12HR PO 03/02/17 09:30 03/04/17 20:46 (Prinivil) 10 mg BID PO 03/03/17 09:00 03/05/17 08:54 (Lopressor) 50 mg Q12HR PO 03/03/17 09:00 03/05/17 08:54 (Norvasc) 5 mg DAILY PO 03/03/17 09:00 03/05/17 08:54 Date of Insertion: Feb 19, 2017 Line: Central Venous Catheter Side: Left Location: Internal, Jugular A/P Problem List: (1) Sepsis ICD Code: A41.9 Status: Acute (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 Postop excision and debridement with washout of necrotizing fasciitis of the perineum, scrotum, and bilateral groin region secondary to Necrotizing fasciitis/Tony's Gangrene involving scrotum, perineum, bilateral groin regions. Blood cultures 2 02/18 viridans strep, pleomorphic gram -positive rods. Wound culture 02/19 Morganella and Proteus. - continue antibiotics per ID. On ceftriaxone and Flagyl. - wound care per urology. OR on for washout/dressing change/possible closure. Hypotension/ HTN Hypotension likely s/t sepsis. Currently off all vasopressors. Echocardiogram 2013 revealed EF 50-55%; No regional wall motion abnormality; Mildly dilated left atrium. - currently on multiple antihypertensive agents. Adjust as needed. - continue antibiotics. - d/c labetalol. Acute respiratory failure S/p intubation and extubation, now on nasal cannula. - Bronchodilator therapy as needed. - incentive spirometry. - encourage ambulation. - physical therapy. Metabolic encephalopathy The pt was sedated while intubated. CT head 02/18 revealed no acute intracranial findings. - Holding home medication Restoril. - neuro checks. 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 - continue ostomy care. Chronic pancreatitis Not in acute exacerbation. - Resumed Creon 2 tablets 3 times a day. Diabetes mellitus Currently off insulin drip. Glucose well controlled 03/05. - continue sliding scale insulin with Accu-Cheks ac hs to maintain euglycemia/ medium regimen. - hold Levemir as pt will be NPO at [place]. 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 - Recommended Maxorb 3 days/keep heels elevated off bed. Lower extremity edema On Lasix. - continue diuresis for now. - keep legs elevated. - encourage ambulation. - KCl as needed. Prophylaxis: SCD/heparin subcutaneous. Discharge Planning Awaiting clinical improvement. Problem Qualifiers (1) Sepsis: Qualified Code: A41.9 - Sepsis, due to unspecified organism (2) Altered mental status: Qualified Code: R41.82 - Altered mental status, unspecified altered mental status type (3) Leucocytosis: Qualified Code: D72.829 - Leukocytosis, unspecified type (4) Diabetes type 1, uncontrolled: Qualified Code: E10.8 - Uncontrolled type 1 diabetes mellitus with complication Jerome Gaona DO Mar 05, 2017 15:09
[2017-03-06 00:26] VITALS: BP 156/70; PULSE 76; RESP 18; TEMP 97.7; O2SAT 96
[2017-03-06] MEDS: LACTATED RINGER'S 1000 ML INJ 1,000 ML IV SCH (02:30)
[2017-03-06 04:29] VITALS: BP 134/68; PULSE 62
[2017-03-06] MEDS: INSULIN ASPART SUPPLEMENTAL SCALE SQ SCH ×4 (04:39→20:46)
[2017-03-06] MEDS: metroNIDAZOLE 500 MG TAB PO SCH ×3 (04:39→20:40)
[2017-03-06 05:13] LABS: HEMATOCRIT 33.4 % (39.0-51.0); MEAN CELL VOLUME 87.4 FL (80.0-100.0); MEAN CORPUSCULAR HEMOGLOBIN 29.2 PG (27.0-34.0); MEAN CORPUSCULAR HGB CONC 33.4 % (32.0-36.0); PLATELET COUNT 247 TH/MM3 (150-450); RED BLOOD COUNT 3.82 MIL/MM3 (4.50-5.90); RED CELL DISTRIBUTION WIDTH 15.2 % (11.6-17.2); REVIEW FLAG FINAL
[2017-03-06 05:34] LABS: BICARBONATE 32.9 MEQ/L (21.0-32.0); MAGNESIUM 1.7 MG/DL (1.5-2.5); POTASSIUM 3.3 MEQ/L (3.5-5.1)
[2017-03-06 08:00] VITALS: BP 155/69; PULSE 75; RESP 17; TEMP 97.4; O2SAT 96
[2017-03-06] MEDS: BENEPROTEIN POWDER 1 PACK G-TUBE SCH ×3 (08:15→17:22)
[2017-03-06] MEDS: ARTIFICIAL TEARS OPTH SOLN 15 ML BTL EACH EYE SCH ×3 (08:15→15:59)
[2017-03-06] MEDS: METOPROLOL TARTRATE 25 MG TAB PO SCH ×2 (08:17→20:36)
[2017-03-06] MEDS: LIPASE/PROTEASE/AMYLASE (24,000/76,000/120,000) CAP PO SCH ×3 (08:18→17:22)
[2017-03-06] MEDS: HEPARIN SODIUM - SQ 10,000 UNITS/ML VIAL SQ SCH ×2 (08:19→20:39)
[2017-03-06] MEDS: LACTULOSE SYRUP 20 GM/30 ML CUP PO SCH ×4 (08:19→20:36)
[2017-03-06] MEDS: POLYETHYLENE GLYCOL 17 GM PKG PO SCH ×2 (08:19→20:37)
[2017-03-06] MEDS: FUROSEMIDE 20 MG/2 ML VIAL IV PUSH SCH (08:21)
[2017-03-06] MEDS: PANTOPRAZOLE SOD 40 MG DELAYED RELEASE TAB PO SCH (08:22)
[2017-03-06] MEDS: SODIUM CHLORIDE 0.9% FLUSH 10 ML FLUSH IVF SCH (08:22)
[2017-03-06] MEDS: SODIUM CHLORIDE 0.9% FLUSH 10 ML FLUSH IV FLUSH SCH ×2 (08:22→20:35)
[2017-03-06] MEDS: LISINOPRIL 10 MG TAB PO SCH ×2 (08:22→20:38)
[2017-03-06] MEDS: SENNOSIDES 8.6 MG TAB PO SCH ×2 (08:22→20:38)
[2017-03-06] MEDS: amLODIPine BESYLATE 5 MG TAB PO SCH (08:22)
[2017-03-06] MEDS: DOCUSATE SODIUM 100 MG CAP PO SCH ×2 (08:22→20:35)
[2017-03-06] MEDS ORDERED: VANCOMYCIN HCL 1000 MG VIAL ONE (11:03)
[2017-03-06] MEDS ORDERED: BUPIVACAINE HCL PF 0.5% 30 ML VIAL ONE (11:03)
[2017-03-06] MEDS ORDERED: STERILE WATER FOR INJ 20 ML VIAL ONE (12:07)
[2017-03-06] MEDS ORDERED: VANCOMYCIN HCL 1000 MG VIAL OTHER ONE (12:22)
[2017-03-06] MEDS ORDERED: NEOSTIGMINE 3 MG/3 ML SYR IV ONE (12:46)
[2017-03-06] MEDS ORDERED: PHENYLEPH/NS 1000 MCG/10 ML SYR IV ONE (12:46)
[2017-03-06] MEDS ORDERED: ePHEDrine/NS 25 MG/5 ML SYR IV ONE (12:46)
[2017-03-06] MEDS ORDERED: ONDANSETRON HCL 4 MG/2 ML VIAL IV PUSH ONE (12:46)
[2017-03-06] MEDS ORDERED: PROPOFOL 200 MG/20 ML AMP IV ONE (12:46)
--- NOTE | 2017-03-06 12:56 | PD.OP ---
Operative Report Date of Surgery: Mar 06, 2017 Preoperative Diagnosis: Necrotizing fasciitis with Tony's gangrene of the perineal scrotal area Postoperative Diagnosis: Same Procedure: Washout with debridement and dressing change of necrotizing fasciitis and Tony's gangrene Anesthesia: KEILA Surgeon: Norbert Cassidy Thermo Cementing Folder Operator(s): None Resident Surgeon: None Operation and Findings: Patient is brought to the operating room and placed in a dorsal lithotomy position. He was prepped and draped in usual sterile fashion preprocedure antibiotics were administered. Endotracheal tube anesthesia was also administered. Dressings were removed and just a few areas required debridement. The wound on the left side of the parametrium remain closed and a few nylon sutures were replaced. The skin edge however is starting to look dusky. The wound was then irrigated out with vancomycin saline solution and then dressings were placed and the testicles were wrapped in gauze. There is still not enough skin present to close the wound. He'll need to return to the operating room this weekend to undergo further washout and dressing change. He tolerated procedure well and was transferred to the recovery room in stable condition. Norbert Cassidy DO Mar 06, 2017 12:56
[2017-03-06] MEDS: POTASSIUM CHLORIDE 25 MEQ EFFERVESCENT TAB PO ONE (13:00)
[2017-03-06] MEDS ORDERED: fentaNYL CITRATE 250 MCG/5 ML AMP ONE (13:13)
[2017-03-06] MEDS ORDERED: DO NOT ADM ANY ANTICOAGULANT DRUGS PRN (14:00)
[2017-03-06] MEDS: cefTRIAXone INJ 2,000 MG in SODIUM CHLORIDE 0.9% INJ 100 ML IV SCH (14:00)
[2017-03-06 16:00] VITALS: BP 137/57; PULSE 77; RESP 16; TEMP 96.1; O2SAT 95
--- NOTE | 2017-03-06 16:04 | HHI.PR ---
Subjective Remarks The patient tolerated the procedure well. He had no pain. He wanted to know when he can get out of here. He said he was feeling a little cold. Objective Vitals Vital Signs Date Time Temp Pulse Resp B/P Pulse Ox O2 Delivery O2 Flow Rate FiO2 03/06/17 13:45 97.8 87 14 136/55 97 Nasal Cannula 2 03/06/17 13:30 89 14 107/58 98 Nasal Cannula 2 03/06/17 13:15 85 14 125/60 98 Nasal Cannula 2 03/06/17 13:04 97.8 81 14 125/62 98 Nasal Cannula 2 03/06/17 08:00 97.4 75 17 155/69 96 03/06/17 04:29 62 134/68 03/06/17 00:26 97.7 76 18 156/70 96 03/05/17 20:09 98.1 75 17 127/57 98 03/05/17 16:00 98.8 60 17 116/56 95 03/05/17 16:00 60 I/O 03/05/17 03/05/17 03/05/17 03/06/17 03/06/17 03/06/17 07:00 15:00 23:00 07:00 15:00 23:00 Intake Total 480 ml 799 ml 360 ml 800 ml Output Total 1500 ml 2100 ml 2100 ml 1875 ml 675 ml Balance -1020 ml -1301 ml -1740 ml -1875 ml 125 ml Intake Oral 480 ml 480 ml 360 ml IV Total 319 ml Other 800 ml Output Urine Total 1450 ml 2100 ml 1500 ml 1700 ml 650 ml Stool Total 50 ml 0 ml 600 ml 175 ml Estimated Blood Loss 25 ml Result Diagram: 03/06/17 0428 03/06/17 0428 Imaging Last Impressions Chest X-Ray 02/25/17 0600 Signed Impressions: Service Date/Time: Saturday, February 25, 2017 04:15 - CONCLUSION: Clear lungs. Khanh Mata Jr., MD Head CT 02/19/172205 Signed Impressions: Service Date/Time: Sunday, February 19, 2017 00:30 - CONCLUSION: 1. No acute findings. No significant change from September 2016. Jermain Minaya MD Abdomen/Pelvis CT 02/19/172205 Signed Impressions: Service Date/Time: Sunday, February 19, 2017 00:36 - CONCLUSION: #1. 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 #2. Left lower quadrant colostomy. Fluid distention of blind-ending rectal pouch to 8.6 cm. Jermain Minaya MD Objective Remarks GENERAL: Resting comfortably in bed. HEAD: Atraumatic. Normocephalic. EYES: Pupils 2 mm bilaterally and reactive. NECK: Trachea midline. No stridor or obstruction. CARDIOVASCULAR: RRR. S1, S2. No S4. No murmur, no JVD. RESPIRATORY: No accessory muscle use. Clear to auscultation. GASTROINTESTINAL: Abdomen soft, non-tender, nondistended. Left lower quadrant ostomy in place. : Scrotal edema, bandages in place. Ellis catheter noted. MUSCULOSKELETAL: Extremities 1+ lower extremity peripheral edema. NEUROLOGICAL: O X 3, moves 4 limbs with strength. PSYCH: Mood and affect appropriate. Procedures Debridement Intubation/ extubation Medications and IVs Current Medications Medications (Trade) Dose Ordered Sig/Jeremias Route Start Time Stop Time Status Last Admin (NS Flush) 2 ml UNSCH PRN IV FLUSH 02/19/17 00:15 (NS Flush) 2 ml BID IV FLUSH 02/19/17 09:00 03/06/17 08:22 (Dulcolax Supp) 10 mg DAILY PRN RECTAL 02/19/17 00:15 (Heparin Inj) 5,000 units Q12HR SQ 02/19/17 09:00 03/05/17 08:55 (Narcan Inj) 0.4 mg UNSCH PRN IV 02/19/17 00:15 (Tylenol) 650 mg Q6H PRN PO 02/19/17 15:00 02/19/17 21:38 (Tears Naturale Opth Soln) 1 drop TID EACH EYE 02/19/17 18:00 03/05/17 12:57 (Zofran Inj) 4 mg Q6H PRN IV 02/19/17 15:00 03/02/17 20:39 (Colace) 100 mg BID PO 02/19/17 21:00 03/06/17 08:22 (NS Flush) DAILY IVF 02/20/17 09:00 03/03/17 09:00 (NS Flush) UNSCH PRN IVF 02/19/17 15:45 (Creon 24-76-120) 2 cap TID PO 02/19/17 18:00 03/05/17 17:49 (Brethine Inj) 1 mg UNSCH PRN SQ 02/19/17 21:00 (Beneprotein Powder) 1 pack TID G-TUBE 02/21/17 18:00 03/05/17 12:57 (Levemir Inj) 10 units Q12HR SQ 02/22/17 21:00 Hold 03/05/17 08:57 (Senokot) 17.2 mg Q12HR PO 02/23/17 00:15 03/06/17 08:22 (Lactulose Liq) 30 ml QID PO 02/22/17 18:00 03/05/17 17:47 Polyethylene Glycol 17 gm 17 gm Q12HR PO 02/23/17 09:00 03/05/17 08:54 (Rocephin Inj/NS Inj) 100 ml @ 200 mls/hr Q24H IV 02/24/17 14:00 03/06/17 14:00 (Flagyl) 500 mg Q8HR PO 02/25/17 17:00 03/06/17 14:00 (Protonix) 40 mg DAILY PO 03/02/17 09:00 03/06/17 08:22 (Trandate Inj) 20 mg Q3H PRN IV PUSH 03/02/17 07:00 03/04/17 01:10 (D50w (Vial) Inj) 25 ml UNSCH PRN IV PUSH 03/02/17 07:15 (Glucagon Inj) 1 mg UNSCH PRN OTHER 03/02/17 07:15 (Prinivil) 10 mg BID PO 03/03/17 09:00 03/06/17 08:22 (Lopressor) 50 mg Q12HR PO 03/03/17 09:00 03/05/17 08:54 Amlodipine Besylate 5 mg 5 mg DAILY PO 03/03/17 09:00 03/06/17 08:22 (Lr 1000 ml Inj) 1,000 ml @ 0 mls/hr Q24H IV 03/06/17 02:30 Miscellaneous Information ALL NURSING DEPARTME... 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 Postop excision and debridement with washout of necrotizing fasciitis of the perineum, scrotum, and bilateral groin region secondary to Necrotizing fasciitis/Tony's Gangrene involving scrotum, perineum, bilateral groin regions. Blood cultures 2 02/18 viridans strep, pleomorphic gram -positive rods. Wound culture 02/19 Morganella and Proteus. - continue antibiotics per ID. On ceftriaxone and Flagyl. - wound care per urology. OR again this weekend for further washout/dressing change. Hypotension/ HTN Hypotension likely s/t sepsis. Currently off all vasopressors and normotensive. Echocardiogram 2013 revealed EF 50-55%; No regional wall motion abnormality; Mildly dilated left atrium. - currently on multiple antihypertensive agents. Adjust as needed. - continue antibiotics. - d/c labetalol. Acute respiratory failure S/p intubation and extubation, now on nasal cannula. - Bronchodilator therapy as needed. - incentive spirometry. - encourage ambulation. - physical therapy. - wean oxygen as tolerated. Metabolic encephalopathy The pt was sedated while intubated. CT head 02/18 revealed no acute intracranial findings. - Holding home medication Restoril. - neuro checks. 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 - continue ostomy care. Chronic pancreatitis Not in acute exacerbation. - Resumed Creon 2 tablets 3 times a day. Diabetes mellitus Currently off insulin ip. Glucose well controlled 03/05. - continue sliding scale insulin with Accu-Cheks ac hs to maintain euglycemia/ medium regimen. - resume Levemir. 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 - Recommended Maxorb 3 days/keep heels elevated off bed. Lower extremity edema On Lasix. - d/c Lasix and monitor. - keep legs elevated. - encourage ambulation. - KCl as needed. Prophylaxis: SCD/heparin subcutaneous. Discharge Planning Awaiting clinical improvement. Problem Qualifiers (1) Sepsis: Qualified Code: A41.9 - Sepsis, due to unspecified organism (2) Altered mental status: Qualified Code: R41.82 - Altered mental status, unspecified altered mental status type (3) Leucocytosis: Qualified Code: D72.829 - Leukocytosis, unspecified type (4) Diabetes type 1, uncontrolled: Qualified Code: E10.8 - Uncontrolled type 1 diabetes mellitus with complication Jerome Gaona DO Mar 06, 2017 16:04
[2017-03-06 20:00] VITALS: BP 125/57; PULSE 66; RESP 22; TEMP 97.3; O2SAT 96
[2017-03-06] MEDS: INSULIN DETEMIR 100 UNITS/ML VIAL SQ SCH (21:00)
[2017-03-06] MEDS: ACETAMINOPHEN 325 MG TAB PO PRN (23:48)
[2017-03-07] VITALS: BP 122/58; PULSE 90; RESP 22; TEMP 100.2; O2SAT 95
[2017-03-07 04:00] VITALS: BP 163/75; PULSE 91; RESP 20; TEMP 98.3; O2SAT 96
[2017-03-07] MEDS: metroNIDAZOLE 500 MG TAB PO SCH ×3 (04:39→21:47)
[2017-03-07] MEDS: INSULIN ASPART SUPPLEMENTAL SCALE SQ SCH ×3 (04:43→20:11)
[2017-03-07 05:42] LABS: HEMATOCRIT 34.3 % (39.0-51.0); MEAN CELL VOLUME 88.1 FL (80.0-100.0); MEAN CORPUSCULAR HEMOGLOBIN 28.6 PG (27.0-34.0); MEAN CORPUSCULAR HGB CONC 32.5 % (32.0-36.0); PLATELET COUNT 224 TH/MM3 (150-450); RED BLOOD COUNT 3.89 MIL/MM3 (4.50-5.90); RED CELL DISTRIBUTION WIDTH 15.2 % (11.6-17.2); REVIEW FLAG FINAL; WHITE BLOOD COUNT 17.3 TH/MM3 (4.0-11.0)
[2017-03-07 06:11] LABS: BICARBONATE 30.5 MEQ/L (21.0-32.0); MAGNESIUM 1.6 MG/DL (1.5-2.5); POTASSIUM 3.8 MEQ/L (3.5-5.1)
[2017-03-07 08:00] VITALS: BP 144/71; PULSE 93; RESP 17; TEMP 97.3; O2SAT 94
[2017-03-07] MEDS: SODIUM CHLORIDE 0.9% FLUSH 10 ML FLUSH IVF SCH (09:00)
[2017-03-07] MEDS: ARTIFICIAL TEARS OPTH SOLN 15 ML BTL EACH EYE SCH ×2 (09:00→18:00)
[2017-03-07] MEDS: SENNOSIDES 8.6 MG TAB PO SCH ×2 (09:00→20:09)
[2017-03-07] MEDS: BENEPROTEIN POWDER 1 PACK G-TUBE SCH ×2 (09:00→18:00)
[2017-03-07] MEDS: POLYETHYLENE GLYCOL 17 GM PKG PO SCH ×2 (09:00→20:11)
[2017-03-07] MEDS: LACTULOSE SYRUP 20 GM/30 ML CUP PO SCH ×4 (09:48→20:10)
[2017-03-07] MEDS: HEPARIN SODIUM - SQ 10,000 UNITS/ML VIAL SQ SCH ×2 (09:48→20:11)
[2017-03-07] MEDS: INSULIN DETEMIR 100 UNITS/ML VIAL SQ SCH ×2 (09:48→20:10)
[2017-03-07] MEDS: LIPASE/PROTEASE/AMYLASE (24,000/76,000/120,000) CAP PO SCH ×3 (09:48→18:00)
[2017-03-07] MEDS: METOPROLOL TARTRATE 25 MG TAB PO SCH ×2 (09:49→20:10)
[2017-03-07] MEDS: PANTOPRAZOLE SOD 40 MG DELAYED RELEASE TAB PO SCH (09:50)
[2017-03-07] MEDS: amLODIPine BESYLATE 5 MG TAB PO SCH (09:50)
[2017-03-07] MEDS: LISINOPRIL 10 MG TAB PO SCH ×2 (09:50→20:10)
--- NOTE | 2017-03-07 10:51 | HHI.PR ---
Subjective Patient symptoms today Pt seen and examined. States"not feeling well today". Low grade temp noted and WBC up to 17K Objective Vital Signs Vital Signs Date Time Temp Pulse Resp B/P Pulse Ox O2 Delivery O2 Flow Rate FiO2 03/07/17 08:00 97.3 93 17 144/71 94 03/07/17 04:00 98.3 91 20 163/75 96 03/07/17 00:00 100.2 90 22 122/58 95 03/06/17 20:00 97.3 66 22 125/57 96 03/06/17 16:00 96.1 77 16 137/57 95 03/06/17 13:45 97.8 87 14 136/55 97 Nasal Cannula 2 03/06/17 13:30 89 14 107/58 98 Nasal Cannula 2 03/06/17 13:15 85 14 125/60 98 Nasal Cannula 2 03/06/17 13:04 97.8 81 14 125/62 98 Nasal Cannula 2 Intake & Output 03/07/17 03/07/17 07:00 19:00 Intake Total 800 ml Output Total 2700 ml Balance -1900 ml Intake Oral 800 ml Output Urine Total 2700 ml Stool Total 0 ml Result Diagram: 03/07/17 0510 03/07/17 0510 Objective Remarks Abd:soft,nt,nd Wound: dressing intact and reinforced Ellis: urine clear 02/25 Abd:soft,nt,nd Wound: dressings intact; aneta in place Ellis: urine clear 02/27 Abd:soft,nt,nd Wound: VAC in place and draining Ellis: urine clear 03/04 Abd:soft,nt,nd Wound: Dressings intact Ellis: urine clear 03/05 Abd:soft,nt,nd Wound: Dressings intact Ellis: urine clear 03/07 Abd:soft,nt,nd Wound: Dressings intact Ellis: urine clear Medications and IVs Current Medications Medications (Trade) Dose Ordered Sig/Jeremias Route Start Time Stop Time Status Last Admin (NS Flush) 2 ml UNSCH PRN IV FLUSH 02/19/17 00:15 (NS Flush) 2 ml BID IV FLUSH 02/19/17 09:00 03/06/17 20:35 (Dulcolax Supp) 10 mg DAILY PRN RECTAL 02/19/17 00:15 (Heparin Inj) 5,000 units Q12HR SQ 02/19/17 09:00 03/07/17 09:48 (Narcan Inj) 0.4 mg UNSCH PRN IV 02/19/17 00:15 (Tylenol) 650 mg Q6H PRN PO 02/19/17 15:00 03/06/17 23:48 (Tears Naturale Opth Soln) 1 drop TID EACH EYE 02/19/17 18:00 03/05/17 12:57 (Zofran Inj) 4 mg Q6H PRN IV 02/19/17 15:00 03/02/17 20:39 (Colace) 100 mg BID PO 02/19/17 21:00 03/06/17 08:22 (NS Flush) DAILY IVF 02/20/17 09:00 03/03/17 09:00 (NS Flush) UNSCH PRN IVF 02/19/17 15:45 (Creon 24-76-120) 2 cap TID PO 02/19/17 18:00 03/07/17 09:48 (Brethine Inj) 1 mg UNSCH PRN SQ 02/19/17 21:00 (Beneprotein Powder) 1 pack TID G-TUBE 02/21/17 18:00 03/06/17 17:22 (Levemir Inj) 10 units Q12HR SQ 02/22/17 21:00 03/07/17 09:48 (Senokot) 17.2 mg Q12HR PO 02/23/17 00:15 03/06/17 08:22 (Lactulose Liq) 30 ml QID PO 02/22/17 18:00 03/07/17 09:48 Polyethylene Glycol 17 gm 17 gm Q12HR PO 02/23/17 09:00 03/05/17 08:54 (Rocephin Inj/NS Inj) 100 ml @ 200 mls/hr Q24H IV 02/24/17 14:00 03/06/17 14:00 (Flagyl) 500 mg Q8HR PO 02/25/17 17:00 03/07/17 04:39 (Protonix) 40 mg DAILY PO 03/02/17 09:00 03/07/17 09:50 (Trandate Inj) 20 mg Q3H PRN IV PUSH 03/02/17 07:00 03/04/17 01:10 (D50w (Vial) Inj) 25 ml UNSCH PRN IV PUSH 03/02/17 07:15 (Glucagon Inj) 1 mg UNSCH PRN OTHER 03/02/17 07:15 (Prinivil) 10 mg BID PO 03/03/17 09:00 03/07/17 09:50 (Lopressor) 50 mg Q12HR PO 03/03/17 09:00 03/07/17 09:49 Amlodipine Besylate 5 mg 5 mg DAILY PO 03/03/17 09:00 03/07/17 09:50 (Lr 1000 ml Inj) 1,000 ml @ 0 mls/hr Q24H IV 03/06/17 02:30 Miscellaneous Information ALL NURSING DEPARTME... UNSCH PRN .XX 03/06/17 14:00 03/07/17 13:59 Assessment and Plan Assessment and Plan 66 y.o male with necrotizing fascitis s/p debridement For washout in AM 02/25 66 y.o male with necrotizing fascitis s/p debridement with washout Plastics consult to help with closure For washout in AM 02/27 66 y.o male with necrotizing fascitis s/p debridement with washout and VAC placement Will change VAC tomorrow in OR; will attempt to close if possible NPO after MN 03/04 66 y.o male with necrotizing fascitis s/p debridement with washout; dressing change Unable to close wound as yet as not enough granulation tissue OR on for washout/dressing change/possible closure 03/05 66 y.o male with necrotizing fascitis s/p debridement with washout; dressing change For washout with dressing change/possible closure tomorrow NPO after MN 03/07 66 y.o male with necrotizing fascitis s/p debridement with washout; dressing change For washout with dressing change/possible closure tomorrow NPO after MN Norbert Cassidy DO Mar 07, 2017 10:51
--- NOTE | 2017-03-07 11:30 | HHI.PR ---
Subjective Remarks The patient said that he was feeling unwell. He was unable to describe feeling. He denied shortness of breath. He denied any increased output from the ostomy. He said he has been trying to eat. Discussed with urology. Objective Vitals Vital Signs Date Time Temp Pulse Resp B/P Pulse Ox O2 Delivery O2 Flow Rate FiO2 03/07/17 08:00 97.3 93 17 144/71 94 03/07/17 04:00 98.3 91 20 163/75 96 03/07/17 00:00 100.2 90 22 122/58 95 03/06/17 20:00 97.3 66 22 125/57 96 03/06/17 16:00 96.1 77 16 137/57 95 03/06/17 13:45 97.8 87 14 136/55 97 Nasal Cannula 2 03/06/17 13:30 89 14 107/58 98 Nasal Cannula 2 03/06/17 13:15 85 14 125/60 98 Nasal Cannula 2 03/06/17 13:04 97.8 81 14 125/62 98 Nasal Cannula 2 I/O 03/06/17 03/06/17 03/06/17 03/07/17 03/07/17 03/07/17 07:00 15:00 23:00 07:00 15:00 23:00 Intake Total 800 ml 320 ml 480 ml Output Total 1875 ml 675 ml 700 ml 2000 ml Balance -1875 ml 125 ml -380 ml -1520 ml Intake Oral 320 ml 480 ml Other 800 ml Output Urine Total 1700 ml 650 ml 700 ml 2000 ml Stool Total 175 ml 0 ml 0 ml Estimated Blood Loss 25 ml Result Diagram: 03/07/17 0510 03/07/17 0510 Imaging Last Impressions Chest X-Ray 02/25/17 06 Signed Impressions: Service Date/Time: Saturday, February 25, 2017 04:15 - CONCLUSION: Clear lungs. Khanh Mata Jr., MD Head CT 02/19/172205 Signed Impressions: Service Date/Time: Sunday, February 19, 2017 00:30 - CONCLUSION: 1. No acute findings. No significant change from September 2016. Jermain Minaya MD Abdomen/Pelvis CT 02/19/172205 Signed Impressions: Service Date/Time: Sunday, February 19, 2017 00:36 - CONCLUSION: #1. 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 #2. Left lower quadrant colostomy. Fluid distention of blind-ending rectal pouch to 8.6 cm. Jermain Minaya MD Objective Remarks GENERAL: Resting comfortably in bed. HEAD: Atraumatic. Normocephalic. EYES: Pupils 2 mm bilaterally and reactive. NECK: Trachea midline. No stridor or obstruction. CARDIOVASCULAR: RRR. S1, S2. No S4. No murmur, no JVD. RESPIRATORY: No accessory muscle use. Clear to auscultation. GASTROINTESTINAL: Abdomen soft, non-tender, nondistended. Left lower quadrant ostomy in place. : Scrotal edema, bandages in place. Ellis catheter noted. MUSCULOSKELETAL: No lower extremity edema. NEUROLOGICAL: O X 3, moves 4 limbs with strength. PSYCH: Slightly flattened affect. Procedures Debridement Intubation/ extubation Medications and IVs Current Medications Medications (Trade) Dose Ordered Sig/Jeremias Route Start Time Stop Time Status Last Admin (NS Flush) 2 ml UNSCH PRN IV FLUSH 02/19/17 00:15 (NS Flush) 2 ml BID IV FLUSH 02/19/17 09:00 03/06/17 20:35 (Dulcolax Supp) 10 mg DAILY PRN RECTAL 02/19/17 00:15 (Heparin Inj) 5,000 units Q12HR SQ 02/19/17 09:00 03/07/17 09:48 (Narcan Inj) 0.4 mg UNSCH PRN IV 02/19/17 00:15 (Tylenol) 650 mg Q6H PRN PO 02/19/17 15:00 03/06/17 23:48 (Tears Naturale Opth Soln) 1 drop TID EACH EYE 02/19/17 18:00 03/05/17 12:57 (Zofran Inj) 4 mg Q6H PRN IV 02/19/17 15:00 03/02/17 20:39 (Colace) 100 mg BID PO 02/19/17 21:00 03/06/17 08:22 (NS Flush) DAILY IVF 02/20/17 09:00 03/03/17 09:00 (NS Flush) UNSCH PRN IVF 02/19/17 15:45 (Creon 24-76-120) 2 cap TID PO 02/19/17 18:00 03/07/17 09:48 (Brethine Inj) 1 mg UNSCH PRN SQ 02/19/17 21:00 (Beneprotein Powder) 1 pack TID G-TUBE 02/21/17 18:00 03/06/17 17:22 (Senokot) 17.2 mg Q12HR PO 02/23/17 00:15 03/06/17 08:22 (Lactulose Liq) 30 ml QID PO 02/22/17 18:00 03/07/17 09:48 Polyethylene Glycol 17 gm 17 gm Q12HR PO 02/23/17 09:00 03/05/17 08:54 (Rocephin Inj/NS Inj) 100 ml @ 200 mls/hr Q24H IV 02/24/17 14:00 03/06/17 14:00 (Flagyl) 500 mg Q8HR PO 02/25/17 17:00 03/07/17 04:39 (Protonix) 40 mg DAILY PO 03/02/17 09:00 03/07/17 09:50 (Trandate Inj) 20 mg Q3H PRN IV PUSH 03/02/17 07:00 03/04/17 01:10 (D50w (Vial) Inj) 25 ml UNSCH PRN IV PUSH 03/02/17 07:15 (Glucagon Inj) 1 mg UNSCH PRN OTHER 03/02/17 07:15 (Prinivil) 10 mg BID PO 03/03/17 09:00 03/07/17 09:50 (Lopressor) 50 mg Q12HR PO 03/03/17 09:00 03/07/17 09:49 Amlodipine Besylate 5 mg 5 mg DAILY PO 03/03/17 09:00 03/07/17 09:50 (Lr 1000 ml Inj) 1,000 ml @ 0 mls/hr Q24H IV 03/06/17 02:30 Miscellaneous Information ALL NURSING DEPARTME... 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 Postop excision and debridement with washout of necrotizing fasciitis of the perineum, scrotum, and bilateral groin region secondary to Necrotizing fasciitis/Tony's Gangrene involving scrotum, perineum, bilateral groin regions. Blood cultures 2 02/18 viridans strep, pleomorphic gram -positive rods. Wound culture 02/19 Morganella and Proteus. - continue antibiotics per ID. On ceftriaxone and Flagyl. - wound care per urology. OR again this weekend for further washout/dressing change. - may need to reconsult plastic surgery as urology feels wound is unlikely to be closed. Hypotension/ HTN Hypotension likely s/t sepsis. Currently off all vasopressors and normotensive to hypertensive. Echocardiogram 2013 revealed EF 50-55%; No regional wall motion abnormality; Mildly dilated left atrium. - currently on multiple antihypertensive agents. Adjust as needed. - continue antibiotics. - d/c labetalol. Resume if needed. Acute respiratory failure S/p intubation and extubation, now on nasal cannula. - Bronchodilator therapy as needed. - incentive spirometry. - encourage ambulation. - physical therapy. - wean oxygen as tolerated. Metabolic encephalopathy The pt was sedated while intubated. CT head 02/18 revealed no acute intracranial findings. - Holding home medication Restoril. - neuro checks. 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 - continue ostomy care. Chronic pancreatitis Not in acute exacerbation. - Resumed Creon 2 tablets 3 times a day. Diabetes mellitus Currently off insulin drip. Glucose elevated 03/07. - continue sliding scale insulin with Accu-Cheks ac hs to maintain euglycemia/ medium regimen. - increase Levemir. 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 - Recommended Maxorb 3 days/keep heels elevated off bed. Low grade fever Pt feels unwell. Has increased leukocytosis, - check CXR and UA. - continue antibiotics per ID. Prophylaxis: SCD/heparin subcutaneous. Discharge Planning Awaiting clinical improvement. Problem Qualifiers (1) Sepsis: Qualified Code: A41.9 - Sepsis, due to unspecified organism (2) Altered mental status: Qualified Code: R41.82 - Altered mental status, unspecified altered mental status type (3) Leucocytosis: Qualified Code: D72.829 - Leukocytosis, unspecified type (4) Diabetes type 1, uncontrolled: Qualified Code: E10.8 - Uncontrolled type 1 diabetes mellitus with complication Jerome Gaona DO Mar 07, 2017 11:30
[2017-03-07 12:00] VITALS: BP 131/70; PULSE 90; RESP 16; TEMP 97.4; O2SAT 94
--- NOTE | 2017-03-07 12:57 | RADRPT ---
EXAM DATE/TIME: 03/07/2017 12:33 [facility] COMPARISON: CHEST SINGLE AP, February 25, 2017, 4:15. INDICATIONS : Short of breath, evaluate pneumonia MEDICAL HISTORY : Hypertension. Diabetes mellitus type II. A-fib SURGICAL HISTORY : None. ENCOUNTER: Subsequent ACUITY: 2 weeks PAIN SCORE: Non-responsive. LOCATION: Bilateral chest FINDINGS: A single view of the chest demonstrates the lungs to be symmetrically aerated without evidence of mas s, infiltrate or effusion. The cardiomediastinal contours are unremarkable. Osseous structures are intact. CONCLUSION: No acute disease. Lance Martinez MD on March 07, 2017 at 12:55 Board Certified Radiologist. This report was verified electronically.
--- NOTE | 2017-03-07 13:10 | HHI.IDPN ---
Note Infectious Disease Note Notes reviewed. Patient says he does not feel good today. No specific about the way he feels. Denies nausea, chills. Low grade temp. WBC elevated. Post debridement of perineum 01/31. Planned for debridement tomorrow03/08. Admitted with altered mental status along with severe dehydration. A CT scan of the abdomen and pelvis showed gas accumulation in the soft tissue of the perineum, scrotum and inguinal region associated with marked scrotal wall thickening characteristic of necrotizing type of infection. The patient was evaluated by urology and he was taken to surgery and underwent debridement of necrotic tissue and there was also purulent drainage as well. PAST MEDICAL HISTORY 1. Diabetes mellitus. 2. Hypertension. 3. Atrial fibrillation. 4. History of megacolon. 5. Arthritis. 6. Tonsillectomy. 7. Colostomy. 8. Oral surgery. 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 ALLERGIES FLOMAX. ANTIBIOTICS: 1. Ceftriaxone. 2. Flagyl. OBJECTIVE: Vital Signs Date Time Temp Pulse Resp B/P Pulse Ox O2 Delivery O2 Flow Rate FiO2 03/07/17 08:00 97.3 93 17 144/71 94 03/07/17 04:00 98.3 91 20 163/75 96 03/07/17 00:00 100.2 90 22 122/58 95 03/06/17 20:00 97.3 66 22 125/57 96 03/06/17 16:00 96.1 77 16 137/57 95 03/06/17 13:45 97.8 87 14 136/55 97 Nasal Cannula 2 03/06/17 13:30 89 14 107/58 98 Nasal Cannula 2 03/06/17 13:15 85 14 125/60 98 Nasal Cannula 2 03/06/17 13:04 97.8 81 14 125/62 98 Nasal Cannula 2 03/06/17 03/06/17 03/07/17 15:00 23:00 07:00 Intake Total 800 ml 320 ml 480 ml Output Total 675 ml 700 ml 2000 ml Balance 125 ml -380 ml -1520 ml Intake Oral 320 ml 480 ml Other 800 ml Output Urine Total 650 ml 700 ml 2000 ml Stool Total 0 ml 0 ml Estimated Blood Loss 25 ml Laboratory Tests Test 03/06/17 03/07/17 04:28 05:10 White Blood Count 12.0 TH/MM3 17.3 TH/MM3 Red Blood Count 3.82 MIL/MM3 3.89 MIL/MM3 Hemoglobin 11.1 GM/DL 11.1 GM/DL Hematocrit 33.4 % 34.3 % Mean Corpuscular Volume 87.4 FL 88.1 FL Mean Corpuscular Hemoglobin 29.2 PG 28.6 PG Mean Corpuscular Hemoglobin 33.4 % 32.5 % Concent Red Cell Distribution Width 15.2 % 15.2 % Platelet Count 247 TH/MM3 224 TH/MM3 Mean Platelet Volume 7.9 FL 8.1 FL Laboratory Tests Test 03/06/17 03/07/17 04:28 05:10 Sodium Level 140 MEQ/L 135 MEQ/L Potassium Level 3.3 MEQ/L 3.8 MEQ/L Chloride Level 100 MEQ/L 98 MEQ/L Carbon Dioxide Level 32.9 MEQ/L 30.5 MEQ/L Anion Gap 7 MEQ/L 7 MEQ/L Blood Urea Nitrogen 20 MG/DL 22 MG/DL Creatinine 0.98 MG/DL 1.05 MG/DL Estimat Glomerular Filtration 76 ML/MIN 70 ML/MIN Rate Random Glucose 157 MG/DL 217 MG/DL Calcium Level 8.2 MG/DL 8.0 MG/DL Magnesium Level 1.7 MG/DL 1.6 MG/DL Microbiology Date/Time Procedure Status Source Growth 02/18/17 22:35 Aerobic Blood Culture - Preliminary Resulted Blood Peripheral Streptococcus Species Pleomorphic Gram Positive Rods 02/18/17 22:35 Anaerobic Blood Culture - Final Resulted Viridans Streptococcus Grp 02/18/17 22:40 Aerobic Blood Culture - Preliminary Resulted Blood Peripheral NO GROWTH IN 3 DAYS 02/18/17 22:40 Anaerobic Blood Culture - Preliminary Resulted Viridans Streptococcus Grp 02/19/17 11:36 Gram Stain - Final Resulted Wound Other 02/19/17 11:36 Wound Culture - Preliminary Resulted Gram Negative Jean-Pierre 02/19/17 11:36 Acid Fast Stain - Final Resulted Wound Other NO ACID FAST BACILLI SEEN 02/19/17 11:36 Mycobacterial Culture Resulted Wound Other Pending 02/19/17 11:36 Fungal Smear - Final Resulted Wound Other NO FUNGAL ELEMENTS SEEN. 02/19/17 11:36 Fungal Culture Resulted Wound Other Pending 02/19/17 11:36 Gram Stain - Final Resulted Wound Other 02/19/17 11:36 Wound Culture - Preliminary Resulted Gram Negative Jean-Pierre 02/19/17 11:36 Acid Fast Stain - Final Resulted Wound Other NO ACID FAST BACILLI SEEN 02/19/17 11:36 Mycobacterial Culture Resulted Wound Other Pending 02/19/17 11:36 Fungal Smear - Final Resulted Wound Other NO FUNGAL ELEMENTS SEEN. 02/19/17 11:36 Fungal Culture Resulted Wound Other Pending PHYSICAL EXAMINATION GENERAL: Alert and oriented. HEENT: No icterus. Oropharynx has no visible lesions. NECK: No swelling or adenopathy. LUNGS: Clear BS. HEART: Irregular rate and rhythm. No murmurs, rubs or gallops. ABDOMEN: Bowel sounds present, soft, no tenderness. Colostomy in place. : The scrotum/perineum is post debridement. SKIN: No rash. Dry excoriated areas on the leg. 1+ edema of the legs. NEURO: Non focal. IMPRESSION 1. 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 strep viridans, gram positive jean-pierre and gram neg jean-pierre. 3. Acute kidney disease. renal function improved. 4. Leukocytosis secondary to infection. WBC fluctuating. RECOMMENDATIONS 1. Continue Ceftriaxone. 2. Continue Flagyl. 3. Monitor WBC. 4. Blood culture if high temp spike. Marko Hahn MD Mar 07, 2017 13:10
[2017-03-07] MEDS: SODIUM CHLORIDE 0.9% FLUSH 10 ML FLUSH IV FLUSH SCH ×2 (13:49→20:10)
[2017-03-07] MEDS: cefTRIAXone INJ 2,000 MG in SODIUM CHLORIDE 0.9% INJ 100 ML IV SCH (13:59)
[2017-03-07 15:14] LABS: BLOOD, URINE NEG (NEG); GLUCOSE,URINE TRACE mg/dL (NEG); KETONE, URINE NEG (NEG); NITRITE,URINE NEG (NEG); PH, URINE 6.5 (5.0-8.5); URINE COLOR YELLOW (YELLW/STRAW)
[2017-03-07 15:16] LABS: COMMENT (UR) CULT NOT INDICATED; CULTURE IF INDICATED CULT NOT INDICATED
[2017-03-07 16:00] VITALS: BP 128/39; PULSE 86; RESP 16; TEMP 97.8; O2SAT 95
[2017-03-07 20:00] VITALS: BP 137/64; PULSE 79; RESP 20; TEMP 99.1; O2SAT 98
[2017-03-07] MEDS: DOCUSATE SODIUM 100 MG CAP PO SCH (20:09)
[2017-03-08] VITALS: BP 137/60; PULSE 81; RESP 20; TEMP 97.5; O2SAT 97
[2017-03-08] MEDS: LACTATED RINGER'S 1000 ML INJ 1,000 ML IV SCH (02:30)
[2017-03-08] MEDS: INSULIN ASPART SUPPLEMENTAL SCALE SQ SCH ×4 (05:20→21:51)
[2017-03-08] MEDS: metroNIDAZOLE 500 MG TAB PO SCH ×3 (05:20→21:48)
[2017-03-08 06:07] LABS: HEMATOCRIT 31.6 % (39.0-51.0); MEAN CELL VOLUME 87.5 FL (80.0-100.0); MEAN CORPUSCULAR HEMOGLOBIN 29.7 PG (27.0-34.0); PLATELET COUNT 230 TH/MM3 (150-450); RED BLOOD COUNT 3.62 MIL/MM3 (4.50-5.90); RED CELL DISTRIBUTION WIDTH 15.2 % (11.6-17.2); REVIEW FLAG FINAL; WHITE BLOOD COUNT 10.4 TH/MM3 (4.0-11.0)
[2017-03-08 06:38] LABS: BICARBONATE 30.7 MEQ/L (21.0-32.0); MAGNESIUM 1.9 MG/DL (1.5-2.5); POTASSIUM 3.3 MEQ/L (3.5-5.1)
[2017-03-08] MEDS ORDERED: VANCOMYCIN HCL 1000 MG VIAL ONE (07:18)
[2017-03-08] MEDS: METOPROLOL TARTRATE 25 MG TAB PO SCH ×2 (07:41→21:48)
[2017-03-08 08:00] VITALS: BP 120/60; PULSE 67; RESP 16; TEMP 97.1; O2SAT 96
[2017-03-08] MEDS ORDERED: PROPOFOL 200 MG/20 ML AMP IV ONE (08:17)
[2017-03-08] MEDS ORDERED: PHENYLEPH/NS 1000 MCG/10 ML SYR IV ONE (08:18)
[2017-03-08] MEDS ORDERED: ePHEDrine/NS 25 MG/5 ML SYR IV ONE (08:18)
[2017-03-08] MEDS ORDERED: ONDANSETRON HCL 4 MG/2 ML VIAL IV PUSH ONE (08:18)
[2017-03-08] MEDS ORDERED: NEOSTIGMINE 3 MG/3 ML SYR IV ONE (08:18)
[2017-03-08] MEDS: LACTULOSE SYRUP 20 GM/30 ML CUP PO SCH ×4 (09:00→20:44)
[2017-03-08] MEDS: amLODIPine BESYLATE 5 MG TAB PO SCH ×2 (09:00→12:25)
[2017-03-08] MEDS: LISINOPRIL 10 MG TAB PO SCH ×2 (09:00→21:48)
[2017-03-08] MEDS: BENEPROTEIN POWDER 1 PACK G-TUBE SCH ×3 (09:00→16:00)
[2017-03-08] MEDS: LIPASE/PROTEASE/AMYLASE (24,000/76,000/120,000) CAP PO SCH ×3 (09:00→17:25)
[2017-03-08] MEDS: SODIUM CHLORIDE 0.9% FLUSH 10 ML FLUSH IVF SCH (09:00)
[2017-03-08] MEDS: DOCUSATE SODIUM 100 MG CAP PO SCH ×2 (09:00→20:44)
[2017-03-08] MEDS: SENNOSIDES 8.6 MG TAB PO SCH ×2 (09:00→21:48)
[2017-03-08] MEDS: ARTIFICIAL TEARS OPTH SOLN 15 ML BTL EACH EYE SCH ×3 (09:00→16:00)
[2017-03-08] MEDS: SODIUM CHLORIDE 0.9% FLUSH 10 ML FLUSH IV FLUSH SCH ×2 (09:00→20:44)
[2017-03-08] MEDS: POLYETHYLENE GLYCOL 17 GM PKG PO SCH ×2 (09:00→20:44)
[2017-03-08] MEDS: HEPARIN SODIUM - SQ 10,000 UNITS/ML VIAL SQ SCH ×2 (09:00→21:48)
[2017-03-08] MEDS: PANTOPRAZOLE SOD 40 MG DELAYED RELEASE TAB PO SCH ×2 (09:00→12:24)
--- NOTE | 2017-03-08 09:07 | PD.OP ---
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 He was prepped and draped in usual sterile fashion, received preprocedure antibiotics and general endotracheal tube anesthesia was administered. The wound was copiously irrigated with vancomycin saline solution and a few areas of tissue were debrided. Overall the wound looks good. A small bridge of tissue on the left side of the perineum needed to be removed as it was avascular. The remaining areas of the wound looked good. Dressings soaked in vancomycin were then replaced and the wound was covered. He tolerated procedure well and was transferred to recovery stable condition. Norbert Cassidy DO Mar 08, 2017 09:06
[2017-03-08] MEDS ORDERED: fentaNYL CITRATE 250 MCG/5 ML AMP ONE (09:30)
[2017-03-08] MEDS ORDERED: POTASSIUM CHLORIDE 25 MEQ EFFERVESCENT TAB PO ONE (11:00)
--- NOTE | 2017-03-08 11:20 | HHI.PR ---
Subjective Remarks The patient said the procedure went well today. He had no acute complaints. He said he was too weak to work with physical therapy yesterday because he was not feeling well. He said he is feeling well today. Discussed with nursing. Objective Vitals Vital Signs Date Time Temp Pulse Resp B/P Pulse Ox O2 Delivery O2 Flow Rate FiO2 03/08/17 09:45 98.5 72 12 125/62 100 Nasal Cannula 2 03/08/17 09:30 79 12 114/63 99 Nasal Cannula 2 03/08/17 09:17 98.5 77 12 107/43 100 Nasal Cannula 4 03/08/17 08:00 97.1 67 16 120/60 96 03/08/17 00:00 97.5 81 20 137/60 97 03/07/17 20:00 99.1 79 20 137/64 98 03/07/17 16:00 97.8 86 16 128/39 95 03/07/17 12:00 97.4 90 16 131/70 94 I/O 03/07/17 03/07/17 03/07/17 03/08/17 03/08/17 03/08/17 07:00 15:00 23:00 07:00 15:00 23:00 Intake Total 480 ml 240 ml 340 ml 0 ml 1000 ml Output Total 2000 ml 900 ml 1500 ml 2950 ml 610 ml Balance -1520 ml -660 ml -1160 ml -2950 ml 390 ml Intake Oral 480 ml 240 ml 240 ml 0 ml IV Total 100 ml Other 1000 ml Output Urine Total 2000 ml 900 ml 1500 ml 2150 ml 600 ml Stool Total 0 ml 800 ml Estimated Blood Loss 10 ml # Bowel Movements 0 Result Diagram: 03/08/17 0359 03/08/17 0359 Imaging Last Impressions Chest X-Ray 03/07/17 0000 Signed Impressions: Service Date/Time: Tuesday, March 07, 2017 12:33 - CONCLUSION: No acute disease. Lance Martinez MD Head CT 02/19/172205 Signed Impressions: Service Date/Time: Sunday, February 19, 2017 00:30 - CONCLUSION: 1. No acute findings. No significant change from September 2016. Jermain Minaya MD Abdomen/Pelvis CT 02/19/172205 Signed Impressions: Service Date/Time: Sunday, February 19, 2017 00:36 - CONCLUSION: #1. 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 #2. Left lower quadrant colostomy. Fluid distention of blind-ending rectal pouch to 8.6 cm. Jermain Minaya MD Objective Remarks GENERAL: Resting comfortably in bed. HEAD: Atraumatic. Normocephalic. EYES: Pupils 2 mm bilaterally and reactive. NECK: Trachea midline. No stridor or obstruction. CARDIOVASCULAR: RRR. S1, S2. No S4. No murmur, no JVD. RESPIRATORY: No accessory muscle use. Clear to auscultation. GASTROINTESTINAL: Abdomen soft, non-tender, nondistended. Left lower quadrant ostomy in place with brown stool. : Scrotal edema, bandages in place. Ellis catheter noted. MUSCULOSKELETAL: No lower extremity edema. NEUROLOGICAL: O X 3, moves 4 limbs with strength. PSYCH: Slightly flattened affect. Procedures Debridement Intubation/ extubation Medications and IVs Current Medications Medications (Trade) Dose Ordered Sig/Jeremias Route Start Time Stop Time Status Last Admin (NS Flush) 2 ml UNSCH PRN IV FLUSH 02/19/17 00:15 (NS Flush) 2 ml BID IV FLUSH 02/19/17 09:00 03/07/17 20:10 (Dulcolax Supp) 10 mg DAILY PRN RECTAL 02/19/17 00:15 (Heparin Inj) 5,000 units Q12HR SQ 02/19/17 09:00 03/07/17 20:11 (Narcan Inj) 0.4 mg UNSCH PRN IV 02/19/17 00:15 (Tylenol) 650 mg Q6H PRN PO 02/19/17 15:00 03/06/17 23:48 (Tears Naturale Opth Soln) 1 drop TID EACH EYE 02/19/17 18:00 03/05/17 12:57 (Zofran Inj) 4 mg Q6H PRN IV 02/19/17 15:00 03/02/17 20:39 (Colace) 100 mg BID PO 02/19/17 21:00 03/07/17 20:09 (NS Flush) DAILY IVF 02/20/17 09:00 03/03/17 09:00 (NS Flush) UNSCH PRN IVF 02/19/17 15:45 (Creon 24-76-120) 2 cap TID PO 02/19/17 18:00 03/07/17 13:46 (Brethine Inj) 1 mg UNSCH PRN SQ 02/19/17 21:00 (Beneprotein Powder) 1 pack TID G-TUBE 02/21/17 18:00 03/06/17 17:22 (Senokot) 17.2 mg Q12HR PO 02/23/17 00:15 03/07/17 20:09 (Lactulose Liq) 30 ml QID PO 02/22/17 18:00 03/07/17 20:10 Polyethylene Glycol 17 gm 17 gm Q12HR PO 02/23/17 09:00 03/07/17 20:11 (Rocephin Inj/NS Inj) 100 ml @ 200 mls/hr Q24H IV 02/24/17 14:00 03/07/17 13:59 (Flagyl) 500 mg Q8HR PO 02/25/17 17:00 03/08/17 05:20 (Protonix) 40 mg DAILY PO 03/02/17 09:00 03/07/17 09:50 (Trandate Inj) 20 mg Q3H PRN IV PUSH 03/02/17 07:00 03/04/17 01:10 (D50w (Vial) Inj) 25 ml UNSCH PRN IV PUSH 03/02/17 07:15 (Glucagon Inj) 1 mg UNSCH PRN OTHER 03/02/17 07:15 (Prinivil) 10 mg BID PO 03/03/17 09:00 03/07/17 20:10 (Lopressor) 50 mg Q12HR PO 03/03/17 09:00 03/08/17 07:41 Amlodipine Besylate 5 mg 5 mg DAILY PO 03/03/17 09:00 03/07/17 09:50 (Lr 1000 ml Inj) 1,000 ml @ 0 mls/hr Q24H IV 03/06/17 02:30 (Levemir Inj) 15 units Q12HR SQ 03/07/17 21:00 03/07/17 20:10 (K-Lyte Cl Eff) 50 meq ONCE ONCE PO 03/08/17 11:00 03/08/17 11:01 Date of Insertion: Feb 19, 2017 Line: Central Venous Catheter Side: Left Location: Internal, Jugular A/P Problem List: (1) Sepsis ICD Code: A41.9 Status: Acute (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 Postop excision and debridement with washout of necrotizing fasciitis of the perineum, scrotum, and bilateral groin region secondary to Necrotizing fasciitis/Tony's Gangrene involving scrotum, perineum, bilateral groin regions. Blood cultures 2 02/18 viridans strep, pleomorphic gram -positive rods. Wound culture 02/19 Morganella and Proteus. S/p washout with debridement of perineal wound and dressing change 03/08. - continue antibiotics per ID. On ceftriaxone and Flagyl. - wound care per urology. - may need to reconsult plastic surgery as urology feels wound will be difficult to close. Hypotension/ HTN Hypotension likely s/t sepsis. Currently off all vasopressors and normotensive to hypertensive. Echocardiogram 2013 revealed EF 50-55%; No regional wall motion abnormality; Mildly dilated left atrium. - currently on multiple antihypertensive agents. Adjust as needed. - continue antibiotics. - d/c labetalol. Resume if needed. Acute respiratory failure S/p intubation and extubation, now on nasal cannula. - Bronchodilator therapy as needed. - incentive spirometry. - encourage ambulation. - physical therapy. - wean oxygen as tolerated. Metabolic encephalopathy The pt was sedated while intubated. CT head 02/18 revealed no acute intracranial findings. - Holding home medication Restoril. - neuro checks. 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 - continue ostomy care. Chronic pancreatitis Not in acute exacerbation. - Resumed Creon 2 tablets 3 times a day. Diabetes mellitus Currently off insulin drip. Glucose well controlled 03/08. - continue sliding scale insulin with Accu-Cheks ac hs to maintain euglycemia/ medium regimen. - increased Levemir. 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 - Recommended Maxorb 3 days/keep heels elevated off bed. Hypokalemia Unsure of etiology. - start KCl 20 meq daily and monitor. Prophylaxis: SCD/heparin subcutaneous. Discharge Planning Awaiting clinical improvement. Problem Qualifiers (1) Sepsis: Qualified Code: A41.9 - Sepsis, due to unspecified organism (2) Altered mental status: Qualified Code: R41.82 - Altered mental status, unspecified altered mental status type (3) Leucocytosis: Qualified Code: D72.829 - Leukocytosis, unspecified type (4) Diabetes type 1, uncontrolled: Qualified Code: E10.8 - Uncontrolled type 1 diabetes mellitus with complication Jerome Gaona DO Mar 08, 2017 11:20
[2017-03-08 12:00] VITALS: BP 98/49; PULSE 52; RESP 16; TEMP 95.8; O2SAT 97
[2017-03-08] MEDS: INSULIN DETEMIR 100 UNITS/ML VIAL SQ SCH ×2 (12:25→21:00)
[2017-03-08] MEDS: cefTRIAXone INJ 2,000 MG in SODIUM CHLORIDE 0.9% INJ 100 ML IV SCH (12:42)
[2017-03-08 14:08] VITALS: O2SAT 96
[2017-03-08 16:00] VITALS: BP 126/60; PULSE 80; RESP 16; TEMP 97.3; O2SAT 97
[2017-03-08 20:00] VITALS: BP 145/63; PULSE 89; RESP 20; TEMP 99.5; O2SAT 97
[2017-03-08] MEDS: TEMAZEPAM 7.5 MG CAP PO PRN (21:48)
[2017-03-09] VITALS (7 sets, daily range): BP systolic 112–140; BP diastolic 58–67; PULSE 74–86; RESP 16–20; TEMP 95.8–99.6; O2SAT 96–98
[2017-03-09] MEDS: LACTATED RINGER'S 1000 ML INJ 1,000 ML IV SCH (02:30)
[2017-03-09] MEDS: INSULIN ASPART SUPPLEMENTAL SCALE SQ SCH ×4 (06:05→22:43)
[2017-03-09] MEDS: metroNIDAZOLE 500 MG TAB PO SCH ×3 (06:06→21:10)
[2017-03-09] MEDS: PANTOPRAZOLE SOD 40 MG DELAYED RELEASE TAB PO SCH (08:34)
[2017-03-09] MEDS: LIPASE/PROTEASE/AMYLASE (24,000/76,000/120,000) CAP PO SCH ×3 (08:34→17:34)
[2017-03-09] MEDS: LACTULOSE SYRUP 20 GM/30 ML CUP PO SCH ×4 (08:34→20:46)
[2017-03-09] MEDS: amLODIPine BESYLATE 5 MG TAB PO SCH (08:35)
[2017-03-09] MEDS: SENNOSIDES 8.6 MG TAB PO SCH ×2 (08:35→20:45)
[2017-03-09] MEDS: HEPARIN SODIUM - SQ 10,000 UNITS/ML VIAL SQ SCH ×2 (08:35→20:45)
[2017-03-09] MEDS: METOPROLOL TARTRATE 25 MG TAB PO SCH ×2 (08:36→20:46)
[2017-03-09] MEDS: POTASSIUM CHLORIDE 20 MEQ CONTROLLED RELEASE TAB PO SCH (08:36)
[2017-03-09] MEDS: POLYETHYLENE GLYCOL 17 GM PKG PO SCH ×2 (08:36→20:44)
[2017-03-09] MEDS: LISINOPRIL 10 MG TAB PO SCH ×2 (08:37→20:45)
[2017-03-09] MEDS: DOCUSATE SODIUM 100 MG CAP PO SCH ×2 (08:38→20:44)
[2017-03-09] MEDS: INSULIN DETEMIR 100 UNITS/ML VIAL SQ SCH ×2 (08:44→21:00)
[2017-03-09] MEDS: SODIUM CHLORIDE 0.9% FLUSH 10 ML FLUSH IVF SCH (09:00)
[2017-03-09] MEDS: ARTIFICIAL TEARS OPTH SOLN 15 ML BTL EACH EYE SCH ×3 (09:00→17:35)
[2017-03-09] MEDS: BENEPROTEIN POWDER 1 PACK G-TUBE SCH ×3 (09:00→17:35)
--- NOTE | 2017-03-09 09:30 | HHI.PR ---
Subjective Patient symptoms today Pt seen and examined. Feels well. OOB to chair. Objective Vital Signs Vital Signs Date Time Temp Pulse Resp B/P Pulse Ox O2 Delivery O2 Flow Rate FiO2 03/09/17 00:00 95.8 86 20 140/63 96 03/08/17 20:00 99.5 89 20 145/63 97 03/08/17 16:00 97.3 80 16 126/60 97 03/08/17 14:08 96 21 03/08/17 12:00 95.8 52 16 98/49 97 03/08/17 09:45 98.5 72 12 125/62 100 Nasal Cannula 2 03/08/17 09:30 79 12 114/63 99 Nasal Cannula 2 Intake & Output 03/09/17 03/09/17 07:00 19:00 Intake Total 120 ml Output Total 2800 ml 200 ml Balance -2680 ml -200 ml Intake Oral 120 ml Output Urine Total 2800 ml Stool Total 200 ml Result Diagram: 03/08/17 0359 03/08/17 0359 Objective Remarks Abd:soft,nt,nd Wound: dressing intact and reinforced Ellis: urine clear 02/25 Abd:soft,nt,nd Wound: dressings intact; aneta in place Ellis: urine clear 02/27 Abd:soft,nt,nd Wound: VAC in place and draining Ellis: urine clear 03/04 Abd:soft,nt,nd Wound: Dressings intact Ellis: urine clear 03/05 Abd:soft,nt,nd Wound: Dressings intact Ellis: urine clear 03/07 Abd:soft,nt,nd Wound: Dressings intact Ellis: urine clear 03/08 Abd:soft,nt,nd Wound: Dressings intact Ellis: urine clear Medications and IVs Current Medications Medications (Trade) Dose Ordered Sig/Jeremias Route Start Time Stop Time Status Last Admin (NS Flush) 2 ml UNSCH PRN IV FLUSH 02/19/17 00:15 (NS Flush) 2 ml BID IV FLUSH 02/19/17 09:00 03/07/17 20:10 (Dulcolax Supp) 10 mg DAILY PRN RECTAL 02/19/17 00:15 (Heparin Inj) 5,000 units Q12HR SQ 02/19/17 09:00 03/09/17 08:35 (Narcan Inj) 0.4 mg UNSCH PRN IV 02/19/17 00:15 (Tylenol) 650 mg Q6H PRN PO 02/19/17 15:00 03/06/17 23:48 (Tears Naturale Opth Soln) 1 drop TID EACH EYE 02/19/17 18:00 03/05/17 12:57 (Zofran Inj) 4 mg Q6H PRN IV 02/19/17 15:00 03/02/17 20:39 (Colace) 100 mg BID PO 02/19/17 21:00 03/07/17 20:09 (NS Flush) DAILY IVF 02/20/17 09:00 03/03/17 09:00 (NS Flush) UNSCH PRN IVF 02/19/17 15:45 (Creon 24-76-120) 2 cap TID PO 02/19/17 18:00 03/09/17 08:34 (Brethine Inj) 1 mg UNSCH PRN SQ 02/19/17 21:00 (Beneprotein Powder) 1 pack TID G-TUBE 02/21/17 18:00 03/06/17 17:22 (Senokot) 17.2 mg Q12HR PO 02/23/17 00:15 03/08/17 21:48 (Lactulose Liq) 30 ml QID PO 02/22/17 18:00 03/09/17 08:34 Polyethylene Glycol 17 gm 17 gm Q12HR PO 02/23/17 09:00 03/07/17 20:11 (Rocephin Inj/NS Inj) 100 ml @ 200 mls/hr Q24H IV 02/24/17 14:00 03/08/17 12:42 (Flagyl) 500 mg Q8HR PO 02/25/17 17:00 03/09/17 06:06 (Protonix) 40 mg DAILY PO 03/02/17 09:00 03/09/17 08:34 (Trandate Inj) 20 mg Q3H PRN IV PUSH 03/02/17 07:00 03/04/17 01:10 (D50w (Vial) Inj) 25 ml UNSCH PRN IV PUSH 03/02/17 07:15 (Glucagon Inj) 1 mg UNSCH PRN OTHER 03/02/17 07:15 (Prinivil) 10 mg BID PO 03/03/17 09:00 03/09/17 08:37 (Lopressor) 50 mg Q12HR PO 03/03/17 09:00 03/09/17 08:36 Amlodipine Besylate 5 mg 5 mg DAILY PO 03/03/17 09:00 03/09/17 08:35 (Lr 1000 ml Inj) 1,000 ml @ 0 mls/hr Q24H IV 03/06/17 02:30 (Levemir Inj) 15 units Q12HR SQ 03/07/17 21:00 03/09/17 08:44 (KCl) 20 meq DAILY PO 03/09/17 09:00 03/09/17 08:36 (Restoril) 7.5 mg HS PRN PO 03/08/17 20:15 03/08/17 21:48 Assessment and Plan Assessment and Plan 66 y.o male with necrotizing fascitis s/p debridement For washout in AM 02/25 66 y.o male with necrotizing fascitis s/p debridement with washout Plastics consult to help with closure For washout in AM 02/27 66 y.o male with necrotizing fascitis s/p debridement with washout and VAC placement Will change VAC tomorrow in OR; will attempt to close if possible NPO after MN 03/04 66 y.o male with necrotizing fascitis s/p debridement with washout; dressing change Unable to close wound as yet as not enough granulation tissue OR on for washout/dressing change/possible closure 03/05 66 y.o male with necrotizing fascitis s/p debridement with washout; dressing change For washout with dressing change/possible closure tomorrow NPO after MN 03/07 66 y.o male with necrotizing fascitis s/p debridement with washout; dressing change For washout with dressing change/possible closure tomorrow NPO after MN 03/08 66 y.o male with necrotizing fascitis s/p debridement with washout; dressing change Continue current Rx For washout with dressing change on Friday. Norbert Cassidy DO Mar 09, 2017 09:29
[2017-03-09] MEDS: SODIUM CHLORIDE 0.9% FLUSH 10 ML FLUSH IV FLUSH SCH ×2 (11:44→20:44)
--- NOTE | 2017-03-09 14:12 | HHI.PR ---
Subjective Remarks The patient said that he got better sleep overnight with a sleeping medication. He said that he was feeling well. Discussed with nursing. Objective Vitals Vital Signs Date Time Temp Pulse Resp B/P Pulse Ox O2 Delivery O2 Flow Rate FiO2 03/09/17 13:06 97 21 03/09/17 12:00 98.5 77 16 114/58 97 03/09/17 08:00 99.0 76 16 135/67 98 03/09/17 00:00 95.8 86 20 140/63 96 03/08/17 20:00 99.5 89 20 145/63 97 03/08/17 16:00 97.3 80 16 126/60 97 03/08/17 14:08 96 21 I/O 03/08/17 03/08/17 03/08/17 03/09/17 03/09/17 03/09/17 07:00 15:00 23:00 07:00 15:00 23:00 Intake Total 0 ml 1340 ml 120 ml 0 ml Output Total 2950 ml 2060 ml 700 ml 2100 ml 200 ml Balance -2950 ml -720 ml -580 ml -2100 ml -200 ml Intake Oral 0 ml 340 ml 120 ml 0 ml Other 1000 ml Output Urine Total 2150 ml 1400 ml 700 ml 2100 ml Stool Total 800 ml 650 ml 200 ml Estimated Blood Loss 10 ml # Bowel Movements 1 Result Diagram: 03/08/17 0359 03/08/17 0359 Imaging Last Impressions Chest X-Ray 03/07/17 0000 Signed Impressions: Service Date/Time: Tuesday, March 07, 2017 12:33 - CONCLUSION: No acute disease. Lance Martinez MD Head CT 02/19/172205 Signed Impressions: Service Date/Time: Sunday, February 19, 2017 00:30 - CONCLUSION: 1. No acute findings. No significant change from September 2016. Jermain Minaya MD Abdomen/Pelvis CT 02/19/172205 Signed Impressions: Service Date/Time: Sunday, February 19, 2017 00:36 - CONCLUSION: #1. 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 #2. Left lower quadrant colostomy. Fluid distention of blind-ending rectal pouch to 8.6 cm. Jermain Minaya MD Objective Remarks GENERAL: Resting comfortably in bed. HEAD: Atraumatic. Normocephalic. EYES: Pupils 2 mm bilaterally and reactive. NECK: Trachea midline. No stridor or obstruction. CARDIOVASCULAR: RRR. S1, S2. No S4. No murmur, no JVD. RESPIRATORY: No accessory muscle use. Clear to auscultation. GASTROINTESTINAL: Abdomen soft, non-tender, nondistended. Left lower quadrant ostomy in place with brown stool. : Scrotal edema, bandages in place. Ellis catheter noted. MUSCULOSKELETAL: No lower extremity edema. NEUROLOGICAL: O X 3, moves 4 limbs with strength. PSYCH: Slightly flattened affect. Procedures Debridement Intubation/ extubation Medications and IVs Current Medications Medications (Trade) Dose Ordered Sig/Jeremias Route Start Time Stop Time Status Last Admin (NS Flush) 2 ml UNSCH PRN IV FLUSH 02/19/17 00:15 (NS Flush) 2 ml BID IV FLUSH 02/19/17 09:00 03/09/17 11:44 (Dulcolax Supp) 10 mg DAILY PRN RECTAL 02/19/17 00:15 (Heparin Inj) 5,000 units Q12HR SQ 02/19/17 09:00 03/09/17 08:35 (Narcan Inj) 0.4 mg UNSCH PRN IV 02/19/17 00:15 (Tylenol) 650 mg Q6H PRN PO 02/19/17 15:00 03/06/17 23:48 (Tears Naturale Opth Soln) 1 drop TID EACH EYE 02/19/17 18:00 03/05/17 12:57 (Zofran Inj) 4 mg Q6H PRN IV 02/19/17 15:00 03/02/17 20:39 (Colace) 100 mg BID PO 02/19/17 21:00 03/07/17 20:09 (NS Flush) DAILY IVF 02/20/17 09:00 03/03/17 09:00 (NS Flush) UNSCH PRN IVF 02/19/17 15:45 (Creon 24-76-120) 2 cap TID PO 02/19/17 18:00 03/09/17 11:44 (Brethine Inj) 1 mg UNSCH PRN SQ 02/19/17 21:00 (Beneprotein Powder) 1 pack TID G-TUBE 02/21/17 18:00 03/06/17 17:22 (Senokot) 17.2 mg Q12HR PO 02/23/17 00:15 03/08/17 21:48 (Lactulose Liq) 30 ml QID PO 02/22/17 18:00 03/09/17 11:43 Polyethylene Glycol 17 gm 17 gm Q12HR PO 02/23/17 09:00 03/07/17 20:11 (Rocephin Inj/NS Inj) 100 ml @ 200 mls/hr Q24H IV 02/24/17 14:00 03/08/17 12:42 (Flagyl) 500 mg Q8HR PO 02/25/17 17:00 03/09/17 06:06 (Protonix) 40 mg DAILY PO 03/02/17 09:00 03/09/17 08:34 (Trandate Inj) 20 mg Q3H PRN IV PUSH 03/02/17 07:00 03/04/17 01:10 (D50w (Vial) Inj) 25 ml UNSCH PRN IV PUSH 03/02/17 07:15 (Glucagon Inj) 1 mg UNSCH PRN OTHER 03/02/17 07:15 (Prinivil) 10 mg BID PO 03/03/17 09:00 03/09/17 08:37 (Lopressor) 50 mg Q12HR PO 03/03/17 09:00 03/09/17 08:36 Amlodipine Besylate 5 mg 5 mg DAILY PO 03/03/17 09:00 03/09/17 08:35 (Lr 1000 ml Inj) 1,000 ml @ 0 mls/hr Q24H IV 03/06/17 02:30 (Levemir Inj) 15 units Q12HR SQ 03/07/17 21:00 03/09/17 08:44 (KCl) 20 meq DAILY PO 03/09/17 09:00 03/09/17 08:36 (Restoril) 7.5 mg HS PRN PO 03/08/17 20:15 03/08/17 21:48 Date of Insertion: Feb 19, 2017 Line: Central Venous Catheter Side: Left Location: Internal, Jugular A/P Problem List: (1) Sepsis ICD Code: A41.9 Status: Acute (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 Postop excision and debridement with washout of necrotizing fasciitis of the perineum, scrotum, and bilateral groin region secondary to Necrotizing fasciitis/Tony's Gangrene involving scrotum, perineum, bilateral groin regions. Blood cultures 2 02/18 viridans strep, pleomorphic gram -positive rods. Wound culture 02/19 Morganella and Proteus. S/p washout with debridement of perineal wound and dressing change 03/08. - continue antibiotics per ID. On ceftriaxone and Flagyl. - wound care per urology. - may need to reconsult plastic surgery as urology feels wound will be difficult to close. - washout planned on Friday per urology. Hypotension/ HTN Hypotension likely s/t sepsis. Currently off all vasopressors and normotensive to hypertensive. Echocardiogram 2013 revealed EF 50-55%; No regional wall motion abnormality; Mildly dilated left atrium. - currently on multiple antihypertensive agents. Adjust as needed. - continue antibiotics. - d/c labetalol. Resume if needed. Acute respiratory failure S/p intubation and extubation, now on nasal cannula. - Bronchodilator therapy as needed. - incentive spirometry. - encourage ambulation. - physical therapy. - wean oxygen as tolerated. Metabolic encephalopathy The pt was sedated while intubated. CT head 02/18 revealed no acute intracranial findings. - resume home medication Restoril and monitor. - neuro checks. 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 - continue ostomy care. Chronic pancreatitis Not in acute exacerbation. - Resumed Creon 2 tablets 3 times a day. Diabetes mellitus Currently off insulin drip. Glucose well controlled 4/16. - continue sliding scale insulin with Accu-Cheks ac hs to maintain euglycemia/ medium regimen. - increased Levemir to 15 daily, 10 at night. 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 - Recommended Maxorb 3 days/keep heels elevated off bed. Hypokalemia Unsure of etiology. - start KCl 20 meq daily and monitor. Prophylaxis: SCD/heparin subcutaneous. Discharge Planning Awaiting clinical improvement. Problem Qualifiers (1) Sepsis: Qualified Code: A41.9 - Sepsis, due to unspecified organism (2) Altered mental status: Qualified Code: R41.82 - Altered mental status, unspecified altered mental status type (3) Leucocytosis: Qualified Code: D72.829 - Leukocytosis, unspecified type (4) Diabetes type 1, uncontrolled: Qualified Code: E10.8 - Uncontrolled type 1 diabetes mellitus with complication Jerome Gaona DO Mar 09, 2017 14:12
[2017-03-09] MEDS: cefTRIAXone INJ 2,000 MG in SODIUM CHLORIDE 0.9% INJ 100 ML IV SCH (14:42)
[2017-03-09] MEDS: TEMAZEPAM 7.5 MG CAP PO PRN (21:10)
[2017-03-10] VITALS: BP 120/69; PULSE 78; RESP 20; TEMP 98.8; O2SAT 98
[2017-03-10] MEDS: LACTATED RINGER'S 1000 ML INJ 1,000 ML IV SCH (02:30)
[2017-03-10] MEDS: metroNIDAZOLE 500 MG TAB PO SCH ×3 (05:25→23:38)
[2017-03-10] MEDS: INSULIN ASPART SUPPLEMENTAL SCALE SQ SCH ×4 (06:18→21:00)
[2017-03-10 06:25] LABS: BICARBONATE 29.2 MEQ/L (21.0-32.0); MAGNESIUM 1.9 MG/DL (1.5-2.5); POTASSIUM 4.2 MEQ/L (3.5-5.1)
[2017-03-10 07:06] VITALS: O2SAT 97
[2017-03-10 08:00] VITALS: BP 156/78; PULSE 86; RESP 18; TEMP 96.3; O2SAT 97
[2017-03-10] MEDS: POLYETHYLENE GLYCOL 17 GM PKG PO SCH ×2 (08:27→23:38)
[2017-03-10] MEDS: LACTULOSE SYRUP 20 GM/30 ML CUP PO SCH ×4 (08:28→23:38)
[2017-03-10] MEDS: LIPASE/PROTEASE/AMYLASE (24,000/76,000/120,000) CAP PO SCH ×3 (08:29→16:22)
[2017-03-10] MEDS: LISINOPRIL 10 MG TAB PO SCH ×2 (08:29→23:38)
[2017-03-10] MEDS: DOCUSATE SODIUM 100 MG CAP PO SCH ×2 (08:29→23:38)
[2017-03-10] MEDS: amLODIPine BESYLATE 5 MG TAB PO SCH (08:29)
[2017-03-10] MEDS: METOPROLOL TARTRATE 25 MG TAB PO SCH ×2 (08:29→23:39)
[2017-03-10] MEDS: POTASSIUM CHLORIDE 20 MEQ CONTROLLED RELEASE TAB PO SCH (08:29)
[2017-03-10] MEDS: HEPARIN SODIUM - SQ 10,000 UNITS/ML VIAL SQ SCH ×2 (08:30→23:40)
[2017-03-10] MEDS: PANTOPRAZOLE SOD 40 MG DELAYED RELEASE TAB PO SCH (08:30)
[2017-03-10] MEDS: SENNOSIDES 8.6 MG TAB PO SCH ×2 (08:30→23:38)
[2017-03-10] MEDS: SODIUM CHLORIDE 0.9% FLUSH 10 ML FLUSH IVF SCH (08:40)
--- NOTE | 2017-03-10 08:40 | HHI.PR ---
Subjective Patient symptoms today Pt seen and examined. Feels well. Not sleeping Objective Vital Signs Vital Signs Date Time Temp Pulse Resp B/P Pulse Ox O2 Delivery O2 Flow Rate FiO2 03/10/17 08:00 96.3 86 18 156/78 97 03/10/17 07:06 97 21 03/10/17 00:00 98.8 78 20 120/69 98 03/09/17 21:34 97 21 03/09/17 20:00 99.6 74 18 122/64 97 03/09/17 16:00 99.0 74 16 112/63 98 03/09/17 13:06 97 21 03/09/17 12:00 98.5 77 16 114/58 97 Intake & Output 03/10/17 03/10/17 07:00 19:00 Intake Total 720 ml Output Total 1050 ml Balance -330 ml Intake Oral 720 ml IV Total 0 ml Output Urine Total 1050 ml # Bowel Movements 0 Result Diagram: 03/08/17 0359 03/10/17 0505 Objective Remarks Abd:soft,nt,nd Wound: dressing intact and reinforced Ellis: urine clear 02/25 Abd:soft,nt,nd Wound: dressings intact; aneta in place Ellis: urine clear 02/27 Abd:soft,nt,nd Wound: VAC in place and draining Ellis: urine clear 03/04 Abd:soft,nt,nd Wound: Dressings intact Ellis: urine clear 03/05 Abd:soft,nt,nd Wound: Dressings intact Ellis: urine clear 03/07 Abd:soft,nt,nd Wound: Dressings intact Ellis: urine clear 03/08 Abd:soft,nt,nd Wound: Dressings intact Ellis: urine clear 03/10 Abd:soft,nt,nd Wound: Dressings intact Ellis: urine clear Medications and IVs Current Medications Medications (Trade) Dose Ordered Sig/Jeremias Route Start Time Stop Time Status Last Admin (NS Flush) 2 ml UNSCH PRN IV FLUSH 02/19/17 00:15 (NS Flush) 2 ml BID IV FLUSH 02/19/17 09:00 03/09/17 20:44 (Dulcolax Supp) 10 mg DAILY PRN RECTAL 02/19/17 00:15 (Heparin Inj) 5,000 units Q12HR SQ 02/19/17 09:00 03/10/17 08:30 (Narcan Inj) 0.4 mg UNSCH PRN IV 02/19/17 00:15 (Tylenol) 650 mg Q6H PRN PO 02/19/17 15:00 03/06/17 23:48 (Tears Naturale Opth Soln) 1 drop TID EACH EYE 02/19/17 18:00 03/05/17 12:57 (Zofran Inj) 4 mg Q6H PRN IV 02/19/17 15:00 03/02/17 20:39 (Colace) 100 mg BID PO 02/19/17 21:00 03/10/17 08:29 (NS Flush) DAILY IVF 02/20/17 09:00 03/03/17 09:00 (NS Flush) UNSCH PRN IVF 02/19/17 15:45 (Creon 24-76-120) 2 cap TID PO 02/19/17 18:00 03/10/17 08:29 (Brethine Inj) 1 mg UNSCH PRN SQ 02/19/17 21:00 (Beneprotein Powder) 1 pack TID G-TUBE 02/21/17 18:00 03/06/17 17:22 (Senokot) 17.2 mg Q12HR PO 02/23/17 00:15 03/10/17 08:30 (Lactulose Liq) 30 ml QID PO 02/22/17 18:00 03/09/17 20:46 Polyethylene Glycol 17 gm 17 gm Q12HR PO 02/23/17 09:00 03/10/17 08:27 (Rocephin Inj/NS Inj) 100 ml @ 200 mls/hr Q24H IV 02/24/17 14:00 03/09/17 14:42 (Flagyl) 500 mg Q8HR PO 02/25/17 17:00 03/10/17 05:25 (Protonix) 40 mg DAILY PO 03/02/17 09:00 03/10/17 08:30 (Trandate Inj) 20 mg Q3H PRN IV PUSH 03/02/17 07:00 03/04/17 01:10 (D50w (Vial) Inj) 25 ml UNSCH PRN IV PUSH 03/02/17 07:15 (Glucagon Inj) 1 mg UNSCH PRN OTHER 03/02/17 07:15 (Prinivil) 10 mg BID PO 03/03/17 09:00 03/10/17 08:29 (Lopressor) 50 mg Q12HR PO 03/03/17 09:00 03/10/17 08:29 Amlodipine Besylate 5 mg 5 mg DAILY PO 03/03/17 09:00 03/10/17 08:29 (Lr 1000 ml Inj) 1,000 ml @ 0 mls/hr Q24H IV 03/06/17 02:30 (KCl) 20 meq DAILY PO 03/09/17 09:00 03/10/17 08:29 (Restoril) 7.5 mg HS PRN PO 03/08/17 20:15 03/09/17 21:10 (Levemir Inj) 15 units DAILY SQ 03/10/17 09:00 03/10/17 08:30 (Levemir Inj) 10 units HS SQ 03/09/17 21:00 03/09/17 21:00 Assessment and Plan Assessment and Plan 66 y.o male with necrotizing fascitis s/p debridement For washout in AM 02/25 66 y.o male with necrotizing fascitis s/p debridement with washout Plastics consult to help with closure For washout in AM 02/27 66 y.o male with necrotizing fascitis s/p debridement with washout and VAC placement Will change VAC tomorrow in OR; will attempt to close if possible NPO after MN 03/04 66 y.o male with necrotizing fascitis s/p debridement with washout; dressing change Unable to close wound as yet as not enough granulation tissue OR on for washout/dressing change/possible closure 03/05 66 y.o male with necrotizing fascitis s/p debridement with washout; dressing change For washout with dressing change/possible closure tomorrow NPO after MN 03/07 66 y.o male with necrotizing fascitis s/p debridement with washout; dressing change For washout with dressing change/possible closure tomorrow NPO after MN 03/08 66 y.o male with necrotizing fascitis s/p debridement with washout; dressing change Continue current Rx For washout with dressing change on Friday. 03/09 66 y.o male with necrotizing fascitis s/p debridement with washout; dressing change Continue current Rx For washout with dressing change on Friday. Norbert Cassidy DO Mar 10, 2017 08:40
[2017-03-10] MEDS: SODIUM CHLORIDE 0.9% FLUSH 10 ML FLUSH IV FLUSH SCH ×2 (08:41→23:37)
[2017-03-10] MEDS: ARTIFICIAL TEARS OPTH SOLN 15 ML BTL EACH EYE SCH ×3 (09:00→16:10)
[2017-03-10] MEDS ORDERED: INSULIN DETEMIR 100 UNITS/ML VIAL SQ SCH (09:00)
[2017-03-10] MEDS: BENEPROTEIN POWDER 1 PACK G-TUBE SCH ×3 (09:00→16:10)
[2017-03-10 12:00] VITALS: BP 134/69; PULSE 79; RESP 21; TEMP 97.5; O2SAT 97
[2017-03-10] MEDS: cefTRIAXone INJ 2,000 MG in SODIUM CHLORIDE 0.9% INJ 100 ML IV SCH (12:22)
--- NOTE | 2017-03-10 14:41 | HHI.PR ---
Subjective Remarks The patient said that he did not get good sleep overnight. He said he was expecting to go for more surgery tomorrow. He had no other acute complaints. Discussed with nursing. Objective Vitals Vital Signs Date Time Temp Pulse Resp B/P Pulse Ox O2 Delivery O2 Flow Rate FiO2 03/10/17 12:00 97.5 79 21 134/69 97 03/10/17 08:00 96.3 86 18 156/78 97 03/10/17 07:06 97 21 03/10/17 00:00 98.8 78 20 120/69 98 03/09/17 21:34 97 21 03/09/17 20:00 99.6 74 18 122/64 97 03/09/17 16:00 99.0 74 16 112/63 98 I/O 03/09/17 03/09/17 03/09/17 03/10/17 03/10/17 03/10/17 06:59 14:59 22:59 06:59 14:59 22:59 Intake Total 0 ml 960 ml 480 ml 240 ml 99 ml Output Total 2100 ml 2600 ml 800 ml 450 ml Balance -2100 ml -1640 ml -320 ml -210 ml 99 ml Intake Oral 0 ml 960 ml 480 ml 240 ml IV Total 0 ml 99 ml Output Urine Total 2100 ml 1950 ml 600 ml 450 ml Stool Total 650 ml 200 ml # Bowel Movements 0 0 Result Diagram: 03/08/17 0359 03/10/17 0505 Imaging Last Impressions Chest X-Ray 03/07/17 0000 Signed Impressions: Service Date/Time: Tuesday, March 07, 2017 12:33 - CONCLUSION: No acute disease. Lance Martinez MD Head CT 02/19/172205 Signed Impressions: Service Date/Time: Sunday, February 19, 2017 00:30 - CONCLUSION: 1. No acute findings. No significant change from September 2016. Jermain Minaya MD Abdomen/Pelvis CT 02/19/172205 Signed Impressions: Service Date/Time: Sunday, February 19, 2017 00:36 - CONCLUSION: #1. 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 #2. Left lower quadrant colostomy. Fluid distention of blind-ending rectal pouch to 8.6 cm. Jermain Minaya MD Objective Remarks GENERAL: Resting comfortably in bed. HEAD: Atraumatic. Normocephalic. EYES: Pupils 2 mm bilaterally and reactive. NECK: Trachea midline. No stridor or obstruction. CARDIOVASCULAR: RRR. S1, S2. No S4. No murmur, no JVD. RESPIRATORY: No accessory muscle use. Clear to auscultation. GASTROINTESTINAL: Abdomen soft, non-tender, nondistended. Left lower quadrant ostomy in place with brown stool. : Scrotal edema, bandages in place. Ellis catheter noted. MUSCULOSKELETAL: No lower extremity edema. NEUROLOGICAL: O X 3, moves 4 limbs with strength. PSYCH: Slightly flattened affect. Procedures Debridement Intubation/ extubation Medications and IVs Current Medications Medications (Trade) Dose Ordered Sig/Jeremias Route Start Time Stop Time Status Last Admin (NS Flush) 2 ml UNSCH PRN IV FLUSH 02/19/17 00:15 (NS Flush) 2 ml BID IV FLUSH 02/19/17 09:00 03/10/17 08:41 (Dulcolax Supp) 10 mg DAILY PRN RECTAL 02/19/17 00:15 (Heparin Inj) 5,000 units Q12HR SQ 02/19/17 09:00 03/10/17 08:30 (Narcan Inj) 0.4 mg UNSCH PRN IV 02/19/17 00:15 (Tylenol) 650 mg Q6H PRN PO 02/19/17 15:00 03/06/17 23:48 (Tears Naturale Opth Soln) 1 drop TID EACH EYE 02/19/17 18:00 03/05/17 12:57 (Zofran Inj) 4 mg Q6H PRN IV 02/19/17 15:00 03/02/17 20:39 (Colace) 100 mg BID PO 02/19/17 21:00 03/10/17 08:29 (NS Flush) DAILY IVF 02/20/17 09:00 03/03/17 09:00 (NS Flush) UNSCH PRN IVF 02/19/17 15:45 (Creon 24-76-120) 2 cap TID PO 02/19/17 18:00 03/10/17 12:22 (Brethine Inj) 1 mg UNSCH PRN SQ 02/19/17 21:00 (Beneprotein Powder) 1 pack TID G-TUBE 02/21/17 18:00 03/06/17 17:22 (Senokot) 17.2 mg Q12HR PO 02/23/17 00:15 03/10/17 08:30 (Lactulose Liq) 30 ml QID PO 02/22/17 18:00 03/10/17 12:22 Polyethylene Glycol 17 gm 17 gm Q12HR PO 02/23/17 09:00 03/10/17 08:27 (Rocephin Inj/NS Inj) 100 ml @ 200 mls/hr Q24H IV 02/24/17 14:00 03/10/17 12:22 (Flagyl) 500 mg Q8HR PO 02/25/17 17:00 03/10/17 12:22 (Protonix) 40 mg DAILY PO 03/02/17 09:00 03/10/17 08:30 (Trandate Inj) 20 mg Q3H PRN IV PUSH 03/02/17 07:00 03/04/17 01:10 (D50w (Vial) Inj) 25 ml UNSCH PRN IV PUSH 03/02/17 07:15 (Glucagon Inj) 1 mg UNSCH PRN OTHER 03/02/17 07:15 (Prinivil) 10 mg BID PO 03/03/17 09:00 03/10/17 08:29 (Lopressor) 50 mg Q12HR PO 03/03/17 09:00 03/10/17 08:29 Amlodipine Besylate 5 mg 5 mg DAILY PO 03/03/17 09:00 03/10/17 08:29 (Lr 1000 ml Inj) 1,000 ml @ 0 mls/hr Q24H IV 03/06/17 02:30 (KCl) 20 meq DAILY PO 03/09/17 09:00 03/10/17 08:29 (Levemir Inj) 10 units HS SQ 03/09/17 21:00 03/09/17 21:00 (Levemir Inj) 20 units DAILY SQ 03/11/17 09:00 (Restoril) 15 mg HS PRN PO 03/10/17 14:45 UNV Date of Insertion: Feb 19, 2017 Line: Central Venous Catheter Side: Left Location: Internal, Jugular A/P Problem List: (1) Sepsis ICD Code: A41.9 Status: Acute (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 Postop excision and debridement with washout of necrotizing fasciitis of the perineum, scrotum, and bilateral groin region secondary to Necrotizing fasciitis/Tony's Gangrene involving scrotum, perineum, bilateral groin regions. Blood cultures 2 02/18 viridans strep, pleomorphic gram -positive rods. Wound culture 02/19 Morganella and Proteus. S/p washout with debridement of perineal wound and dressing change 03/08. - continue antibiotics per ID. On ceftriaxone and Flagyl. - wound care per urology. - may need to reconsult plastic surgery as urology feels wound will be difficult to close. - washout planned on tomorrow per urology. Hypotension/ HTN Hypotension likely s/t sepsis. Currently off all vasopressors and normotensive to hypertensive. Echocardiogram 2013 revealed EF 50-55%; No regional wall motion abnormality; Mildly dilated left atrium. - currently on multiple antihypertensive agents. Adjust as needed. - continue antibiotics. - d/c labetalol. Resume if needed. Well controlled at this time. Acute respiratory failure S/p intubation and extubation, now on nasal cannula. - Bronchodilator therapy as needed. - incentive spirometry. - encourage ambulation. - physical therapy. - wean oxygen as tolerated. Metabolic encephalopathy The pt was sedated while intubated. CT head 02/18 revealed no acute intracranial findings. Resolved. - resume home medication Restoril. 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 - continue ostomy care. Chronic pancreatitis Not in acute exacerbation. - Resumed Creon 2 tablets 3 times a day. Diabetes mellitus Currently off insulin drip. Glucose fluctuates. - continue sliding scale insulin with Accu-Cheks ac hs to maintain euglycemia/ medium regimen. - increased Levemir to 20 units daily, 10 at night. 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 - Recommended Maxorb 3 days/keep heels elevated off bed. Hypokalemia Unsure of etiology. - monitor as needed. Prophylaxis: SCD/heparin subcutaneous. Discharge Planning Awaiting clinical improvement. Problem Qualifiers (1) Sepsis: Qualified Code: A41.9 - Sepsis, due to unspecified organism (2) Altered mental status: Qualified Code: R41.82 - Altered mental status, unspecified altered mental status type (3) Leucocytosis: Qualified Code: D72.829 - Leukocytosis, unspecified type (4) Diabetes type 1, uncontrolled: Qualified Code: E10.8 - Uncontrolled type 1 diabetes mellitus with complication Jerome Gaona DO Mar 10, 2017 14:41
[2017-03-10 16:00] VITALS: BP 122/68; PULSE 71; RESP 28; TEMP 99.5; O2SAT 97
[2017-03-10 20:00] VITALS: BP 117/56; PULSE 72; RESP 18; TEMP 98.9; O2SAT 98
[2017-03-10] MEDS: INSULIN DETEMIR 100 UNITS/ML VIAL SQ SCH (21:00)
[2017-03-10] MEDS ORDERED: TEMAZEPAM 15 MG CAP PO PRN (21:00)
[2017-03-11] VITALS: BP 120/68; PULSE 70; RESP 20; TEMP 97.6; O2SAT 97
[2017-03-11] MEDS: LACTATED RINGER'S 1000 ML INJ 1,000 ML IV SCH (02:30)
[2017-03-11] MEDS: metroNIDAZOLE 500 MG TAB PO SCH ×3 (06:03→20:20)
[2017-03-11] MEDS: INSULIN ASPART SUPPLEMENTAL SCALE SQ SCH ×4 (06:03→20:41)
[2017-03-11 08:00] VITALS: BP 105/55; PULSE 71; RESP 16; TEMP 96.4; O2SAT 97
[2017-03-11] MEDS: BENEPROTEIN POWDER 1 PACK G-TUBE SCH ×3 (08:08→16:42)
[2017-03-11] MEDS: ARTIFICIAL TEARS OPTH SOLN 15 ML BTL EACH EYE SCH ×3 (08:08→16:42)
[2017-03-11] MEDS: INSULIN DETEMIR 100 UNITS/ML VIAL SQ SCH ×2 (09:00→20:40)
[2017-03-11] MEDS: DOCUSATE SODIUM 100 MG CAP PO SCH ×2 (09:00→20:20)
[2017-03-11] MEDS: SODIUM CHLORIDE 0.9% FLUSH 10 ML FLUSH IV FLUSH SCH ×2 (09:00→20:20)
[2017-03-11] MEDS: LIPASE/PROTEASE/AMYLASE (24,000/76,000/120,000) CAP PO SCH ×3 (09:00→18:00)
[2017-03-11] MEDS: HEPARIN SODIUM - SQ 10,000 UNITS/ML VIAL SQ SCH ×2 (09:00→20:19)
[2017-03-11] MEDS: SODIUM CHLORIDE 0.9% FLUSH 10 ML FLUSH IVF SCH (09:00)
[2017-03-11] MEDS: LISINOPRIL 10 MG TAB PO SCH ×2 (09:00→20:20)
[2017-03-11] MEDS: amLODIPine BESYLATE 5 MG TAB PO SCH (09:00)
[2017-03-11] MEDS: POLYETHYLENE GLYCOL 17 GM PKG PO SCH ×2 (09:00→20:21)
[2017-03-11] MEDS: SENNOSIDES 8.6 MG TAB PO SCH ×2 (09:00→20:20)
[2017-03-11] MEDS: PANTOPRAZOLE SOD 40 MG DELAYED RELEASE TAB PO SCH (09:00)
[2017-03-11] MEDS: METOPROLOL TARTRATE 25 MG TAB PO SCH ×2 (09:00→20:20)
[2017-03-11] MEDS: LACTULOSE SYRUP 20 GM/30 ML CUP PO SCH ×4 (09:00→20:20)
[2017-03-11 12:00] VITALS: BP 102/55; PULSE 54; RESP 16; TEMP 97.7; O2SAT 98
[2017-03-11] MEDS ORDERED: MORPHINE SULFATE 4 MG/ML INJ IV PUSH PRN (12:03)
--- NOTE | 2017-03-11 12:35 | HHI.PR ---
Subjective Patient symptoms today Pt seen and examined. Wound changed at bedside. Pt tolerated dressing change without pain. Objective Vital Signs Vital Signs Date Time Temp Pulse Resp B/P Pulse Ox O2 Delivery O2 Flow Rate FiO2 03/11/17 08:00 96.4 71 16 105/55 97 03/11/17 00:00 97.6 70 20 120/68 97 03/10/17 20:00 98.9 72 18 117/56 98 03/10/17 16:00 99.5 71 28 122/68 97 Intake & Output 03/11/17 03/11/17 07:00 19:00 Intake Total 240 ml Output Total 600 ml Balance -360 ml Intake Oral 240 ml IV Total 0 ml Output Urine Total 600 ml # Bowel Movements 0 Result Diagram: 03/08/17 0359 03/10/17 0505 Objective Remarks Abd:soft,nt,nd Wound: dressing intact and reinforced Ellis: urine clear 02/25 Abd:soft,nt,nd Wound: dressings intact; aneta in place Ellis: urine clear 02/27 Abd:soft,nt,nd Wound: VAC in place and draining Ellis: urine clear 03/04 Abd:soft,nt,nd Wound: Dressings intact Ellis: urine clear 03/05 Abd:soft,nt,nd Wound: Dressings intact Ellis: urine clear 03/07 Abd:soft,nt,nd Wound: Dressings intact Ellis: urine clear 03/08 Abd:soft,nt,nd Wound: Dressings intact Ellis: urine clear 03/10 Abd:soft,nt,nd Wound: Dressings intact Ellis: urine clear 03/11 Abd:soft,nt,nd Wound: clean and dry; packing changed at bedside with nurse Medications and IVs Current Medications Medications (Trade) Dose Ordered Sig/Jeremias Route Start Time Stop Time Status Last Admin (NS Flush) 2 ml UNSCH PRN IV FLUSH 02/19/17 00:15 (NS Flush) 2 ml BID IV FLUSH 02/19/17 09:00 03/11/17 09:00 (Dulcolax Supp) 10 mg DAILY PRN RECTAL 02/19/17 00:15 (Heparin Inj) 5,000 units Q12HR SQ 02/19/17 09:00 03/10/17 23:40 (Narcan Inj) 0.4 mg UNSCH PRN IV 02/19/17 00:15 (Tylenol) 650 mg Q6H PRN PO 02/19/17 15:00 03/06/17 23:48 (Tears Naturale Opth Soln) 1 drop TID EACH EYE 02/19/17 18:00 03/05/17 12:57 (Zofran Inj) 4 mg Q6H PRN IV 02/19/17 15:00 03/02/17 20:39 (Colace) 100 mg BID PO 02/19/17 21:00 03/10/17 23:38 (NS Flush) DAILY IVF 02/20/17 09:00 03/03/17 09:00 (NS Flush) UNSCH PRN IVF 02/19/17 15:45 (Creon 24-76-120) 2 cap TID PO 02/19/17 18:00 03/10/17 16:22 (Brethine Inj) 1 mg UNSCH PRN SQ 02/19/17 21:00 (Beneprotein Powder) 1 pack TID G-TUBE 02/21/17 18:00 03/06/17 17:22 (Senokot) 17.2 mg Q12HR PO 02/23/17 00:15 03/10/17 23:38 (Lactulose Liq) 30 ml QID PO 02/22/17 18:00 03/10/17 23:38 Polyethylene Glycol 17 gm 17 gm Q12HR PO 02/23/17 09:00 03/10/17 23:38 (Rocephin Inj/NS Inj) 100 ml @ 200 mls/hr Q24H IV 02/24/17 14:00 03/10/17 12:22 (Flagyl) 500 mg Q8HR PO 02/25/17 17:00 03/11/17 06:03 (Protonix) 40 mg DAILY PO 03/02/17 09:00 03/10/17 08:30 (Trandate Inj) 20 mg Q3H PRN IV PUSH 03/02/17 07:00 03/04/17 01:10 (D50w (Vial) Inj) 25 ml UNSCH PRN IV PUSH 03/02/17 07:15 (Glucagon Inj) 1 mg UNSCH PRN OTHER 03/02/17 07:15 (Prinivil) 10 mg BID PO 03/03/17 09:00 03/10/17 23:38 (Lopressor) 50 mg Q12HR PO 03/03/17 09:00 03/10/17 23:39 Amlodipine Besylate 5 mg 5 mg DAILY PO 03/03/17 09:00 03/10/17 08:29 (Lr 1000 ml Inj) 1,000 ml @ 0 mls/hr Q24H IV 03/06/17 02:30 (Levemir Inj) 10 units HS SQ 03/09/17 21:00 03/10/17 21:00 (Levemir Inj) 20 units DAILY SQ 03/11/17 09:00 (Restoril) 15 mg HS PRN PO 03/10/17 21:00 Assessment and Plan Assessment and Plan 66 y.o male with necrotizing fascitis s/p debridement For washout in AM 02/25 66 y.o male with necrotizing fascitis s/p debridement with washout Plastics consult to help with closure For washout in AM 02/27 66 y.o male with necrotizing fascitis s/p debridement with washout and VAC placement Will change VAC tomorrow in OR; will attempt to close if possible NPO after MN 03/04 66 y.o male with necrotizing fascitis s/p debridement with washout; dressing change Unable to close wound as yet as not enough granulation tissue OR on for washout/dressing change/possible closure 03/05 66 y.o male with necrotizing fascitis s/p debridement with washout; dressing change For washout with dressing change/possible closure tomorrow NPO after MN 03/07 66 y.o male with necrotizing fascitis s/p debridement with washout; dressing change For washout with dressing change/possible closure tomorrow NPO after MN 03/08 66 y.o male with necrotizing fascitis s/p debridement with washout; dressing change Continue current Rx For washout with dressing change on Friday. 03/09 66 y.o male with necrotizing fascitis s/p debridement with washout; dressing change Continue current Rx For washout with dressing change on Friday. 03/11 66 y.o male with necrotizing fascitis s/p debridement with washout; dressing change Continue current Rx Will be able to now change dressing at bedside every 2-3 days with wet/dry dressings using Normal Saline Norbert Cassidy DO Mar 11, 2017 12:35
[2017-03-11] MEDS: cefTRIAXone INJ 2,000 MG in SODIUM CHLORIDE 0.9% INJ 100 ML IV SCH (14:04)
--- NOTE | 2017-03-11 15:48 | HHI.PR ---
Subjective Remarks The patient was resting comfortably in bed. He said he found out he would be accepted to a rehabilitation. He has been having regular bowel movements. He had his washout done at the bedside today he had no acute complaints. Discussed with nursing. Objective Vitals Vital Signs Date Time Temp Pulse Resp B/P Pulse Ox O2 Delivery O2 Flow Rate FiO2 03/11/17 12:00 97.7 54 16 102/55 98 03/11/17 08:00 96.4 71 16 105/55 97 03/11/17 00:00 97.6 70 20 120/68 97 03/10/17 20:00 98.9 72 18 117/56 98 03/10/17 16:00 99.5 71 28 122/68 97 I/O 03/10/17 03/10/17 03/10/17 03/11/17 03/11/17 03/11/17 07:00 15:00 23:00 07:00 15:00 23:00 Intake Total 240 ml 1179 ml 0 ml 240 ml Output Total 450 ml 1450 ml 600 ml Balance -210 ml -271 ml 0 ml -360 ml Intake Oral 240 ml 1080 ml 240 ml IV Total 99 ml 0 ml 0 ml Output Urine Total 450 ml 1450 ml 600 ml # Bowel Movements 0 0 Result Diagram: 03/08/17 0359 03/10/17 0505 Imaging Last Impressions Chest X-Ray 03/07/17 0000 Signed Impressions: Service Date/Time: Tuesday, March 07, 2017 12:33 - CONCLUSION: No acute disease. Lance Martinez MD Head CT 02/19/172205 Signed Impressions: Service Date/Time: Sunday, February 19, 2017 00:30 - CONCLUSION: 1. No acute findings. No significant change from September 2016. Jermain Minaya MD Abdomen/Pelvis CT 02/19/172205 Signed Impressions: Service Date/Time: Sunday, February 19, 2017 00:36 - CONCLUSION: #1. 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 #2. Left lower quadrant colostomy. Fluid distention of blind-ending rectal pouch to 8.6 cm. Jermain Minaya MD Objective Remarks GENERAL: Resting comfortably in bed. HEAD: Atraumatic. Normocephalic. EYES: Pupils 2 mm bilaterally and reactive. NECK: Trachea midline. No stridor or obstruction. CARDIOVASCULAR: RRR. S1, S2. No S4. No murmur, no JVD. RESPIRATORY: No accessory muscle use. Clear to auscultation. GASTROINTESTINAL: Abdomen soft, non-tender, nondistended. Left lower quadrant ostomy in place with brown stool. : Scrotal edema, bandages in place. Ellis catheter noted. MUSCULOSKELETAL: No lower extremity edema. NEUROLOGICAL: O X 3, moves 4 limbs with strength. PSYCH: Slightly flattened affect. Procedures Debridement Intubation/ extubation Medications and IVs Current Medications Medications (Trade) Dose Ordered Sig/Jeremias Route Start Time Stop Time Status Last Admin (NS Flush) 2 ml UNSCH PRN IV FLUSH 02/19/17 00:15 (NS Flush) 2 ml BID IV FLUSH 02/19/17 09:00 03/11/17 09:00 (Dulcolax Supp) 10 mg DAILY PRN RECTAL 02/19/17 00:15 (Heparin Inj) 5,000 units Q12HR SQ 02/19/17 09:00 03/10/17 23:40 (Narcan Inj) 0.4 mg UNSCH PRN IV 02/19/17 00:15 (Tylenol) 650 mg Q6H PRN PO 02/19/17 15:00 03/06/17 23:48 (Tears Naturale Opth Soln) 1 drop TID EACH EYE 02/19/17 18:00 03/05/17 12:57 (Zofran Inj) 4 mg Q6H PRN IV 02/19/17 15:00 03/02/17 20:39 (Colace) 100 mg BID PO 02/19/17 21:00 03/10/17 23:38 (NS Flush) DAILY IVF 02/20/17 09:00 03/03/17 09:00 (NS Flush) UNSCH PRN IVF 02/19/17 15:45 (Creon 24-76-120) 2 cap TID PO 02/19/17 18:00 03/11/17 14:04 (Brethine Inj) 1 mg UNSCH PRN SQ 02/19/17 21:00 (Beneprotein Powder) 1 pack TID G-TUBE 02/21/17 18:00 03/06/17 17:22 (Senokot) 17.2 mg Q12HR PO 02/23/17 00:15 03/10/17 23:38 (Lactulose Liq) 30 ml QID PO 02/22/17 18:00 03/11/17 14:04 Polyethylene Glycol 17 gm 17 gm Q12HR PO 02/23/17 09:00 03/10/17 23:38 (Rocephin Inj/NS Inj) 100 ml @ 200 mls/hr Q24H IV 02/24/17 14:00 03/11/17 14:04 (Flagyl) 500 mg Q8HR PO 02/25/17 17:00 03/11/17 14:04 (Protonix) 40 mg DAILY PO 03/02/17 09:00 03/10/17 08:30 (Trandate Inj) 20 mg Q3H PRN IV PUSH 03/02/17 07:00 03/04/17 01:10 (D50w (Vial) Inj) 25 ml UNSCH PRN IV PUSH 03/02/17 07:15 (Glucagon Inj) 1 mg UNSCH PRN OTHER 03/02/17 07:15 (Prinivil) 10 mg BID PO 03/03/17 09:00 03/10/17 23:38 (Lopressor) 50 mg Q12HR PO 03/03/17 09:00 03/10/17 23:39 Amlodipine Besylate 5 mg 5 mg DAILY PO 03/03/17 09:00 03/10/17 08:29 (Lr 1000 ml Inj) 1,000 ml @ 0 mls/hr Q24H IV 03/06/17 02:30 (Levemir Inj) 10 units HS SQ 03/09/17 21:00 03/10/17 21:00 (Levemir Inj) 20 units DAILY SQ 03/11/17 09:00 (Restoril) 15 mg HS PRN PO 03/10/17 21:00 Date of Insertion: Feb 19, 2017 Line: Central Venous Catheter Side: Left Location: Internal, Jugular A/P Problem List: (1) Sepsis ICD Code: A41.9 Status: Acute (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 Postop excision and debridement with washout of necrotizing fasciitis of the perineum, scrotum, and bilateral groin region secondary to Necrotizing fasciitis/Tony's Gangrene involving scrotum, perineum, bilateral groin regions. Blood cultures 2 02/18 viridans strep, pleomorphic gram -positive rods. Wound culture 02/19 Morganella and Proteus. S/p washout with debridement of perineal wound and dressing change 03/11. - continue antibiotics per ID. On ceftriaxone and Flagyl. - wound care per urology. - reconsult plastic surgery as urology feels wound will be difficult to close. - further wound care per urology. Hypotension/ HTN Hypotension likely s/t sepsis. Currently off all vasopressors and normotensive to hypertensive. Echocardiogram 2013 revealed EF 50-55%; No regional wall motion abnormality; Mildly dilated left atrium. - currently on multiple antihypertensive agents. Adjust as needed. - continue antibiotics. - d/c labetalol. Resume if needed. Well controlled at this time. Acute respiratory failure S/p intubation and extubation, now on nasal cannula. - Bronchodilator therapy as needed. - incentive spirometry. - encourage ambulation. - wean oxygen as tolerated. Metabolic encephalopathy The pt was sedated while intubated. CT head 02/18 revealed no acute intracranial findings. Resolved. - resume home medication Restoril. - PT/ OT. 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 - continue ostomy care. Chronic pancreatitis Not in acute exacerbation. - Resumed Creon 2 tablets 3 times a day. Diabetes mellitus S/p insulin drip. Glucose improved 03/11. - continue sliding scale insulin with Accu-Cheks. - increased Levemir to 20 units daily, 10 at night. 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 - Recommended Maxorb 3 days/keep heels elevated off bed. Hypokalemia Unsure of etiology. - monitor as needed. Prophylaxis: SCD/heparin subcutaneous. Discharge Planning Awaiting clinical improvement. Problem Qualifiers (1) Sepsis: Qualified Code: A41.9 - Sepsis, due to unspecified organism (2) Altered mental status: Qualified Code: R41.82 - Altered mental status, unspecified altered mental status type (3) Leucocytosis: Qualified Code: D72.829 - Leukocytosis, unspecified type (4) Diabetes type 1, uncontrolled: Qualified Code: E10.8 - Uncontrolled type 1 diabetes mellitus with complication Jerome Gaona DO Mar 11, 2017 15:48
[2017-03-11 16:00] VITALS: BP 97/50; PULSE 57; RESP 16; TEMP 97; O2SAT 97
[2017-03-11 20:00] VITALS: BP 112/56; PULSE 78; RESP 20; TEMP 98.8; O2SAT 100
[2017-03-12] MEDS: LACTATED RINGER'S 1000 ML INJ 1,000 ML IV SCH (02:30)
[2017-03-12 05:47] LABS: HEMATOCRIT 34.6 % (39.0-51.0); MEAN CELL VOLUME 88.7 FL (80.0-100.0); MEAN CORPUSCULAR HEMOGLOBIN 30.2 PG (27.0-34.0); PLATELET COUNT 218 TH/MM3 (150-450); RED CELL DISTRIBUTION WIDTH 16.1 % (11.6-17.2); REVIEW FLAG FINAL; WHITE BLOOD COUNT 9.6 TH/MM3 (4.0-11.0)
[2017-03-12 06:16] LABS: BICARBONATE 29.2 MEQ/L (21.0-32.0)
[2017-03-12 06:28] LABS: POTASSIUM 4.8 MEQ/L (3.5-5.1)
[2017-03-12] MEDS: metroNIDAZOLE 500 MG TAB PO SCH ×3 (06:34→21:46)
[2017-03-12] MEDS: INSULIN ASPART SUPPLEMENTAL SCALE SQ SCH ×4 (06:34→21:37)
[2017-03-12] MEDS: METOPROLOL TARTRATE 25 MG TAB PO SCH ×2 (07:58→21:36)
[2017-03-12] MEDS: amLODIPine BESYLATE 5 MG TAB PO SCH (07:59)
[2017-03-12] MEDS: LISINOPRIL 10 MG TAB PO SCH ×2 (07:59→21:36)
[2017-03-12 08:00] VITALS: BP 98/52; PULSE 68; RESP 16; TEMP 97.7; O2SAT 98
[2017-03-12] MEDS: INSULIN DETEMIR 100 UNITS/ML VIAL SQ SCH ×2 (08:22→21:37)
[2017-03-12] MEDS: LIPASE/PROTEASE/AMYLASE (24,000/76,000/120,000) CAP PO SCH ×3 (08:23→18:03)
[2017-03-12] MEDS: HEPARIN SODIUM - SQ 10,000 UNITS/ML VIAL SQ SCH ×2 (08:23→21:36)
[2017-03-12] MEDS: PANTOPRAZOLE SOD 40 MG DELAYED RELEASE TAB PO SCH (08:23)
[2017-03-12] MEDS: LACTULOSE SYRUP 20 GM/30 ML CUP PO SCH ×4 (08:25→21:00)
[2017-03-12] MEDS: POLYETHYLENE GLYCOL 17 GM PKG PO SCH ×2 (08:25→21:00)
[2017-03-12] MEDS: DOCUSATE SODIUM 100 MG CAP PO SCH ×2 (08:26→21:00)
[2017-03-12] MEDS: ARTIFICIAL TEARS OPTH SOLN 15 ML BTL EACH EYE SCH ×3 (08:28→16:32)
[2017-03-12] MEDS: BENEPROTEIN POWDER 1 PACK G-TUBE SCH ×3 (08:28→16:32)
[2017-03-12] MEDS: SODIUM CHLORIDE 0.9% FLUSH 10 ML FLUSH IVF SCH (08:29)
[2017-03-12] MEDS: SODIUM CHLORIDE 0.9% FLUSH 10 ML FLUSH IV FLUSH SCH ×2 (08:29→21:00)
[2017-03-12] MEDS: SENNOSIDES 8.6 MG TAB PO SCH ×2 (08:30→21:00)
--- NOTE | 2017-03-12 09:30 | HHI.PR ---
Subjective Patient symptoms today Pt seen and examined. Feels well. Objective Vital Signs Vital Signs Date Time Temp Pulse Resp B/P Pulse Ox O2 Delivery O2 Flow Rate FiO2 03/12/17 08:00 97.7 68 16 98/52 98 03/11/17 20:00 98.8 78 20 112/56 100 03/11/17 16:00 97.0 57 16 97/50 97 03/11/17 12:00 97.7 54 16 102/55 98 Result Diagram: 03/12/1744003/12/17440 Objective Remarks Abd:soft,nt,nd Wound: dressing intact and reinforced Ellis: urine clear 02/25 Abd:soft,nt,nd Wound: dressings intact; aneta in place Ellis: urine clear 02/27 Abd:soft,nt,nd Wound: VAC in place and draining Ellis: urine clear 03/04 Abd:soft,nt,nd Wound: Dressings intact Ellis: urine clear 03/05 Abd:soft,nt,nd Wound: Dressings intact Ellis: urine clear 03/07 Abd:soft,nt,nd Wound: Dressings intact Ellis: urine clear 03/08 Abd:soft,nt,nd Wound: Dressings intact Ellis: urine clear 03/10 Abd:soft,nt,nd Wound: Dressings intact Ellis: urine clear 03/11 Abd:soft,nt,nd Wound: clean and dry; packing changed at bedside with nurse 03/12Abd:soft,nt,nd Wound: clean and dry; packing in place. Medications and IVs Current Medications Medications (Trade) Dose Ordered Sig/Jeremias Route Start Time Stop Time Status Last Admin (NS Flush) 2 ml UNSCH PRN IV FLUSH 02/19/17 00:15 (NS Flush) 2 ml BID IV FLUSH 02/19/17 09:00 03/12/17 08:29 (Dulcolax Supp) 10 mg DAILY PRN RECTAL 02/19/17 00:15 (Heparin Inj) 5,000 units Q12HR SQ 02/19/17 09:00 03/12/17 08:23 (Narcan Inj) 0.4 mg UNSCH PRN IV 02/19/17 00:15 (Tylenol) 650 mg Q6H PRN PO 02/19/17 15:00 03/06/17 23:48 (Tears Naturale Opth Soln) 1 drop TID EACH EYE 02/19/17 18:00 03/05/17 12:57 (Zofran Inj) 4 mg Q6H PRN IV 02/19/17 15:00 03/02/17 20:39 (Colace) 100 mg BID PO 02/19/17 21:00 03/10/17 23:38 (NS Flush) DAILY IVF 02/20/17 09:00 03/03/17 09:00 (NS Flush) UNSCH PRN IVF 02/19/17 15:45 (Creon 24-76-120) 2 cap TID PO 02/19/17 18:00 03/12/17 08:23 (Brethine Inj) 1 mg UNSCH PRN SQ 02/19/17 21:00 (Beneprotein Powder) 1 pack TID G-TUBE 02/21/17 18:00 03/06/17 17:22 (Senokot) 17.2 mg Q12HR PO 02/23/17 00:15 03/11/17 20:20 (Lactulose Liq) 30 ml QID PO 02/22/17 18:00 03/11/17 20:20 Polyethylene Glycol 17 gm 17 gm Q12HR PO 02/23/17 09:00 03/10/17 23:38 (Rocephin Inj/NS Inj) 100 ml @ 200 mls/hr Q24H IV 02/24/17 14:00 03/11/17 14:04 (Flagyl) 500 mg Q8HR PO 02/25/17 17:00 03/12/17 06:34 (Protonix) 40 mg DAILY PO 03/02/17 09:00 03/12/17 08:23 (Trandate Inj) 20 mg Q3H PRN IV PUSH 03/02/17 07:00 03/04/17 01:10 (D50w (Vial) Inj) 25 ml UNSCH PRN IV PUSH 03/02/17 07:15 (Glucagon Inj) 1 mg UNSCH PRN OTHER 03/02/17 07:15 (Prinivil) 10 mg BID PO 03/03/17 09:00 03/11/17 20:20 (Lopressor) 50 mg Q12HR PO 03/03/17 09:00 03/11/17 20:20 Amlodipine Besylate 5 mg 5 mg DAILY PO 03/03/17 09:00 03/10/17 08:29 (Lr 1000 ml Inj) 1,000 ml @ 0 mls/hr Q24H IV 03/06/17 02:30 (Levemir Inj) 10 units HS SQ 03/09/17 21:00 03/11/17 20:40 (Levemir Inj) 20 units DAILY SQ 03/11/17 09:00 03/12/17 08:22 (Restoril) 15 mg HS PRN PO 03/10/17 21:00 Assessment and Plan Assessment and Plan 66 y.o male with necrotizing fascitis s/p debridement For washout in AM 02/25 66 y.o male with necrotizing fascitis s/p debridement with washout Plastics consult to help with closure For washout in AM 02/27 66 y.o male with necrotizing fascitis s/p debridement with washout and VAC placement Will change VAC tomorrow in OR; will attempt to close if possible NPO after MN 03/04 66 y.o male with necrotizing fascitis s/p debridement with washout; dressing change Unable to close wound as yet as not enough granulation tissue OR on for washout/dressing change/possible closure 03/05 66 y.o male with necrotizing fascitis s/p debridement with washout; dressing change For washout with dressing change/possible closure tomorrow NPO after MN 03/07 66 y.o male with necrotizing fascitis s/p debridement with washout; dressing change For washout with dressing change/possible closure tomorrow NPO after MN 03/08 66 y.o male with necrotizing fascitis s/p debridement with washout; dressing change Continue current Rx For washout with dressing change on Friday. 03/09 66 y.o male with necrotizing fascitis s/p debridement with washout; dressing change Continue current Rx For washout with dressing change on Friday. 03/11 66 y.o male with necrotizing fascitis s/p debridement with washout; dressing change Continue current Rx Will be able to now change dressing at bedside every 2-3 days with wet/dry dressings using Normal Saline 03/12 66 y.o male with necrotizing fascitis s/p debridement with washout; dressing change Continue current Rx Dressing changes at bedside every 2-3 days. Norbert Cassidy DO Mar 12, 2017 09:30
--- NOTE | 2017-03-12 09:48 | HHI.PR ---
Subjective Remarks Patient reports he is feeling ok except for feeling tired. No fevers. Eating well. Pain is controlled. Objective Vitals Vital Signs Date Time Temp Pulse Resp B/P Pulse Ox O2 Delivery O2 Flow Rate FiO2 03/12/17 08:00 97.7 68 16 98/52 98 03/11/17 20:00 98.8 78 20 112/56 100 03/11/17 16:00 97.0 57 16 97/50 97 03/11/17 12:00 97.7 54 16 102/55 98 I/O 03/11/17 03/11/17 03/11/17 03/12/17 03/12/17 03/12/17 07:00 15:00 23:00 07:00 15:00 23:00 Intake Total 240 ml 240 ml 960 ml 0 ml Output Total 600 ml 1300 ml 300 ml 1450 ml Balance -360 ml -1060 ml 660 ml -1450 ml Intake Oral 240 ml 240 ml 960 ml 0 ml IV Total 0 ml Output Urine Total 600 ml 1300 ml 300 ml 1450 ml # Bowel Movements 0 0 Result Diagram: 03/12/17 0441 03/12/17 0441 Imaging Last Impressions Chest X-Ray 03/07/17 0000 Signed Impressions: Service Date/Time: Tuesday, March 07, 2017 12:33 - CONCLUSION: No acute disease. Lance Martinez MD Head CT 02/19/172205 Signed Impressions: Service Date/Time: Sunday, February 19, 2017 00:30 - CONCLUSION: 1. No acute findings. No significant change from September 2016. Jermain Minaya MD Abdomen/Pelvis CT 02/19/172205 Signed Impressions: Service Date/Time: Sunday, February 19, 2017 00:36 - CONCLUSION: #1. 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 #2. Left lower quadrant colostomy. Fluid distention of blind-ending rectal pouch to 8.6 cm. Jermain Minaya MD Objective Remarks GENERAL: Patient in no apparent distress. CARDIOVASCULAR: Regular rate and rhythm without murmurs, gallops, or rubs. RESPIRATORY: Clear to auscultation. Breath sounds equal bilaterally. No wheezes , rales, or rhonchi. GASTROINTESTINAL: Abdomen soft, non-tender, nondistended. Normal active bowel sounds : Perineal wound is packed. Minimal drainage, MUSCULOSKELETAL: Extremities without clubbing, cyanosis, or edema. NEURO: Alert & Oriented x4 to person, place, time, situation. 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 Postop excision and debridement with washout of necrotizing fasciitis of the perineum, scrotum, and bilateral groin region secondary to Necrotizing fasciitis/Tony's Gangrene involving scrotum, perineum, bilateral groin regions. Blood cultures 2 02/18 viridans strep, pleomorphic gram -positive rods. Wound culture 02/19 Morganella and Proteus. S/p washout with debridement of perineal wound and dressing change 03/11. - continue antibiotics per ID. On ceftriaxone and Flagyl. - wound care per urology. - Plastic surgery previously consulted to assist with wound. - further wound care per urology/Plastics. Hypotension/ HTN Hypotension likely s/t sepsis. Currently off all vasopressors and normotensive to hypertensive. Echocardiogram 2013 revealed EF 50-55%; No regional wall motion abnormality; Mildly dilated left atrium. - currently on multiple antihypertensive agents. Adjust as needed. - continue antibiotics. - d/c labetalol. Resume if needed. Well controlled at this time. Acute respiratory failure S/p intubation and extubation, now on nasal cannula. - Bronchodilator therapy as needed. - incentive spirometry. - encourage ambulation. - wean oxygen as tolerated. Metabolic encephalopathy The pt was sedated while intubated. CT head 02/18 revealed no acute intracranial findings. Resolved. - resume home medication Restoril. - PT/ OT. 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 - continue ostomy care. Chronic pancreatitis Not in acute exacerbation. - Resumed Creon 2 tablets 3 times a day. Diabetes mellitus S/p insulin drip. Glucose improved 03/11. - continue sliding scale insulin with Accu-Cheks. - increased Levemir to 20 units daily, 10 at night. 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 - Recommended Maxorb 3 days/keep heels elevated off bed. Prophylaxis: SCD/heparin subcutaneous. Discharge Planning Will need rehab once cleared by all specialist. Problem Qualifiers (1) Sepsis: Qualified Code: A41.9 - Sepsis, due to unspecified organism (2) Altered mental status: Qualified Code: R41.82 - Altered mental status, unspecified altered mental status type (3) Leucocytosis: Qualified Code: D72.829 - Leukocytosis, unspecified type (4) Diabetes type 1, uncontrolled: Qualified Code: E10.8 - Uncontrolled type 1 diabetes mellitus with complication Shyla Gallegos MD Mar 12, 2017 09:48
[2017-03-12 12:00] VITALS: BP 139/60; PULSE 70; RESP 16; TEMP 97.4; O2SAT 98
[2017-03-12] MEDS: cefTRIAXone INJ 2,000 MG in SODIUM CHLORIDE 0.9% INJ 100 ML IV SCH (14:34)
[2017-03-12 16:00] VITALS: BP 142/69; PULSE 78; RESP 16; TEMP 96.8; O2SAT 98
[2017-03-12 20:00] VITALS: BP 137/64; PULSE 80; RESP 20; TEMP 97.4; O2SAT 99
[2017-03-13] VITALS: BP 130/68; PULSE 82; RESP 20; TEMP 98.2; O2SAT 97
[2017-03-13] MEDS: LACTATED RINGER'S 1000 ML INJ 1,000 ML IV SCH (01:53)
[2017-03-13 05:35] LABS: HEMATOCRIT 34.6 % (39.0-51.0); MEAN CORPUSCULAR HEMOGLOBIN 28.9 PG (27.0-34.0); MEAN CORPUSCULAR HGB CONC 32.5 % (32.0-36.0); PLATELET COUNT 220 TH/MM3 (150-450); RED BLOOD COUNT 3.89 MIL/MM3 (4.50-5.90); RED CELL DISTRIBUTION WIDTH 15.8 % (11.6-17.2); REVIEW FLAG FINAL; WHITE BLOOD COUNT 11.1 TH/MM3 (4.0-11.0)
[2017-03-13 05:51] LABS: BICARBONATE 28.4 MEQ/L (21.0-32.0); POTASSIUM 4.2 MEQ/L (3.5-5.1)
[2017-03-13] MEDS: metroNIDAZOLE 500 MG TAB PO SCH ×3 (06:28→21:26)
[2017-03-13] MEDS: INSULIN ASPART SUPPLEMENTAL SCALE SQ SCH ×4 (06:33→21:34)
[2017-03-13 08:00] VITALS: BP 98/53; PULSE 69; RESP 18; TEMP 97.7; O2SAT 99
--- NOTE | 2017-03-13 08:01 | HHI.PR ---
Subjective Patient symptoms today Pt feels well. Ambulating more. Tolerating diet. Pain controlled. Objective Vital Signs Vital Signs Date Time Temp Pulse Resp B/P Pulse Ox O2 Delivery O2 Flow Rate FiO2 03/13/17 00:00 98.2 82 20 130/68 97 03/12/17 20:00 97.4 80 20 137/64 99 03/12/17 16:00 96.8 78 16 142/69 98 03/12/17 12:00 97.4 70 16 139/60 98 Intake & Output 03/13/17 03/13/17 07:00 19:00 Intake Total 1120 ml Output Total 1700 ml Balance -580 ml Intake Oral 1120 ml IV Total 0 ml Output Urine Total 1700 ml # Bowel Movements 0 Result Diagram: 03/13/1744503/13/17445 Objective Remarks Abd:soft,nt,nd Wound: dressing intact and reinforced Ellis: urine clear 02/25 Abd:soft,nt,nd Wound: dressings intact; aneta in place Ellis: urine clear 02/27 Abd:soft,nt,nd Wound: VAC in place and draining Ellis: urine clear 03/04 Abd:soft,nt,nd Wound: Dressings intact Ellis: urine clear 03/05 Abd:soft,nt,nd Wound: Dressings intact Ellis: urine clear 03/07 Abd:soft,nt,nd Wound: Dressings intact Ellis: urine clear 03/08 Abd:soft,nt,nd Wound: Dressings intact Ellis: urine clear 03/10 Abd:soft,nt,nd Wound: Dressings intact Ellis: urine clear 03/11 Abd:soft,nt,nd Wound: clean and dry; packing changed at bedside with nurse 03/12 Abd:soft,nt,nd Wound: clean and dry; packing in place. 03/13 Abd:soft,nt,nd Wound: clean and dry; packing in place. Ellis with clear urine Medications and IVs Current Medications Medications (Trade) Dose Ordered Sig/Jeremias Route Start Time Stop Time Status Last Admin (NS Flush) 2 ml UNSCH PRN IV FLUSH 02/19/17 00:15 (NS Flush) 2 ml BID IV FLUSH 02/19/17 09:00 03/12/17 21:00 (Dulcolax Supp) 10 mg DAILY PRN RECTAL 02/19/17 00:15 (Heparin Inj) 5,000 units Q12HR SQ 02/19/17 09:00 03/12/17 21:36 (Narcan Inj) 0.4 mg UNSCH PRN IV 02/19/17 00:15 (Tylenol) 650 mg Q6H PRN PO 02/19/17 15:00 03/06/17 23:48 (Tears Naturale Opth Soln) 1 drop TID EACH EYE 02/19/17 18:00 03/05/17 12:57 (Zofran Inj) 4 mg Q6H PRN IV 02/19/17 15:00 03/02/17 20:39 (Colace) 100 mg BID PO 02/19/17 21:00 03/10/17 23:38 (NS Flush) DAILY IVF 02/20/17 09:00 03/03/17 09:00 (NS Flush) UNSCH PRN IVF 02/19/17 15:45 (Creon 24-76-120) 2 cap TID PO 02/19/17 18:00 03/12/17 18:03 (Brethine Inj) 1 mg UNSCH PRN SQ 02/19/17 21:00 (Beneprotein Powder) 1 pack TID G-TUBE 02/21/17 18:00 03/06/17 17:22 (Senokot) 17.2 mg Q12HR PO 02/23/17 00:15 03/11/17 20:20 (Lactulose Liq) 30 ml QID PO 02/22/17 18:00 03/11/17 20:20 Polyethylene Glycol 17 gm 17 gm Q12HR PO 02/23/17 09:00 03/10/17 23:38 (Rocephin Inj/NS Inj) 100 ml @ 200 mls/hr Q24H IV 02/24/17 14:00 03/12/17 14:34 (Flagyl) 500 mg Q8HR PO 02/25/17 17:00 03/13/17 06:28 (Protonix) 40 mg DAILY PO 03/02/17 09:00 03/12/17 08:23 (Trandate Inj) 20 mg Q3H PRN IV PUSH 03/02/17 07:00 03/04/17 01:10 (D50w (Vial) Inj) 25 ml UNSCH PRN IV PUSH 03/02/17 07:15 (Glucagon Inj) 1 mg UNSCH PRN OTHER 03/02/17 07:15 (Prinivil) 10 mg BID PO 03/03/17 09:00 03/12/17 21:36 (Lopressor) 50 mg Q12HR PO 03/03/17 09:00 03/12/17 21:36 Amlodipine Besylate 5 mg 5 mg DAILY PO 03/03/17 09:00 03/10/17 08:29 (Lr 1000 ml Inj) 1,000 ml @ 0 mls/hr Q24H IV 03/06/17 02:30 (Levemir Inj) 10 units HS SQ 03/09/17 21:00 03/12/17 21:37 (Levemir Inj) 20 units DAILY SQ 03/11/17 09:00 03/12/17 08:22 (Restoril) 15 mg HS PRN PO 03/10/17 21:00 Assessment and Plan Assessment and Plan 66 y.o male with necrotizing fascitis s/p debridement For washout in AM 02/25 66 y.o male with necrotizing fascitis s/p debridement with washout Plastics consult to help with closure For washout in AM 02/27 66 y.o male with necrotizing fascitis s/p debridement with washout and VAC placement Will change VAC tomorrow in OR; will attempt to close if possible NPO after MN 03/04 66 y.o male with necrotizing fascitis s/p debridement with washout; dressing change Unable to close wound as yet as not enough granulation tissue OR on for washout/dressing change/possible closure 03/05 66 y.o male with necrotizing fascitis s/p debridement with washout; dressing change For washout with dressing change/possible closure tomorrow NPO after MN 03/07 66 y.o male with necrotizing fascitis s/p debridement with washout; dressing change For washout with dressing change/possible closure tomorrow NPO after MN 03/08 66 y.o male with necrotizing fascitis s/p debridement with washout; dressing change Continue current Rx For washout with dressing change on Friday. 03/09 66 y.o male with necrotizing fascitis s/p debridement with washout; dressing change Continue current Rx For washout with dressing change on Friday. 03/11 66 y.o male with necrotizing fascitis s/p debridement with washout; dressing change Continue current Rx Will be able to now change dressing at bedside every 2-3 days with wet/dry dressings using Normal Saline 03/12 66 y.o male with necrotizing fascitis s/p debridement with washout; dressing change Continue current Rx Dressing changes at bedside every 2-3 days. 03/13 66 y.o male with necrotizing fascitis s/p debridement with washout; dressing change Continue current Rx Dressing change in AM Wound care consult Norbert Cassidy DO Mar 13, 2017 08:01
[2017-03-13] MEDS: LIPASE/PROTEASE/AMYLASE (24,000/76,000/120,000) CAP PO SCH ×3 (08:02→17:36)
[2017-03-13] MEDS: LACTULOSE SYRUP 20 GM/30 ML CUP PO SCH ×4 (08:02→21:00)
[2017-03-13] MEDS: ARTIFICIAL TEARS OPTH SOLN 15 ML BTL EACH EYE SCH ×3 (08:02→16:53)
[2017-03-13] MEDS: BENEPROTEIN POWDER 1 PACK G-TUBE SCH ×3 (08:02→16:53)
[2017-03-13] MEDS: PANTOPRAZOLE SOD 40 MG DELAYED RELEASE TAB PO SCH (08:04)
[2017-03-13] MEDS: HEPARIN SODIUM - SQ 10,000 UNITS/ML VIAL SQ SCH ×2 (08:05→21:27)
[2017-03-13] MEDS: INSULIN DETEMIR 100 UNITS/ML VIAL SQ SCH ×2 (08:05→21:27)
[2017-03-13] MEDS: SENNOSIDES 8.6 MG TAB PO SCH ×2 (08:08→21:00)
[2017-03-13] MEDS: DOCUSATE SODIUM 100 MG CAP PO SCH ×2 (08:09→21:00)
[2017-03-13] MEDS: SODIUM CHLORIDE 0.9% FLUSH 10 ML FLUSH IV FLUSH SCH ×2 (08:09→21:00)
[2017-03-13] MEDS: LISINOPRIL 10 MG TAB PO SCH ×2 (08:09→21:00)
[2017-03-13] MEDS: SODIUM CHLORIDE 0.9% FLUSH 10 ML FLUSH IVF SCH (08:09)
[2017-03-13] MEDS: POLYETHYLENE GLYCOL 17 GM PKG PO SCH ×2 (08:09→21:00)
[2017-03-13] MEDS: amLODIPine BESYLATE 5 MG TAB PO SCH (08:09)
[2017-03-13] MEDS: METOPROLOL TARTRATE 25 MG TAB PO SCH ×2 (08:09→21:00)
--- NOTE | 2017-03-13 09:12 | HHI.PR ---
Subjective Remarks Patient reports is feeling okay. No fevers or chills. No new issues. Objective Vitals Vital Signs Date Time Temp Pulse Resp B/P Pulse Ox O2 Delivery O2 Flow Rate FiO2 03/13/17 08:00 97.7 69 18 98/53 99 03/13/17 00:00 98.2 82 20 130/68 97 03/12/17 20:00 97.4 80 20 137/64 99 03/12/17 16:00 96.8 78 16 142/69 98 03/12/17 12:00 97.4 70 16 139/60 98 I/O 03/12/17 03/12/17 03/12/17 03/13/17 03/13/17 03/13/17 07:00 15:00 23:00 07:00 15:00 23:00 Intake Total 0 ml 240 ml 480 ml 640 ml 120 ml Output Total 1450 ml 950 ml 500 ml 1200 ml Balance -1450 ml -710 ml -20 ml -560 ml 120 ml Intake Oral 0 ml 240 ml 480 ml 640 ml 120 ml IV Total 0 ml Output Urine Total 1450 ml 950 ml 500 ml 1200 ml # Bowel Movements 1 0 0 Result Diagram: 03/13/17 0446 03/13/17 0446 Objective Remarks GENERAL: Patient in no apparent distress. CARDIOVASCULAR: Regular rate and rhythm without murmurs, gallops, or rubs. RESPIRATORY: Clear to auscultation. Breath sounds equal bilaterally. No wheezes , rales, or rhonchi. GASTROINTESTINAL: Abdomen soft, non-tender, nondistended. Normal active bowel sounds. Ostomy on the left side appear to be functioning well. : Perineal wound is packed. Minimal drainage, MUSCULOSKELETAL: Extremities without clubbing, cyanosis, or edema. NEURO: Alert & Oriented x4 to person, place, time, situation. 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 Postop excision and debridement with washout of necrotizing fasciitis of the perineum, scrotum, and bilateral groin region secondary to Necrotizing fasciitis/Tony's Gangrene involving scrotum, perineum, bilateral groin regions. Blood cultures 2 02/18 viridans strep, pleomorphic gram -positive rods. Wound culture 02/19 Morganella and Proteus. S/p washout with debridement of perineal wound and dressing change 03/11. - continue antibiotics per ID. On ceftriaxone and Flagyl. - wound care per urology. Wound care consulted. Hypotension/ HTN Hypotension likely s/t sepsis. Currently off all vasopressors and normotensive to hypertensive. Echocardiogram 2013 revealed EF 50-55%; No regional wall motion abnormality; Mildly dilated left atrium. - currently on multiple antihypertensive agents. Adjust as needed. - continue antibiotics. - d/c labetalol. May resume if needed. Well controlled at this time. Acute respiratory failure S/p intubation and extubation, now on nasal cannula. - Bronchodilator therapy as needed. - incentive spirometry. - encourage ambulation. - wean oxygen as tolerated. Metabolic encephalopathy The pt was sedated while intubated. CT head 02/18 revealed no acute intracranial findings. Resolved. - resume home medication Restoril. - PT/ OT. 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 - continue ostomy care. Chronic pancreatitis Not in acute exacerbation. - Resumed Creon 2 tablets 3 times a day. Diabetes mellitus S/p insulin drip. Glucose improved 03/11. - continue sliding scale insulin with Accu-Cheks. - increased Levemir to 20 units daily, 10 at night. 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 - Recommended Maxorb 3 days/keep heels elevated off bed. Prophylaxis: SCD/heparin subcutaneous. Discharge Planning Will need rehab once cleared by all specialist. Problem Qualifiers (1) Sepsis: Qualified Code: A41.9 - Sepsis, due to unspecified organism (2) Altered mental status: Qualified Code: R41.82 - Altered mental status, unspecified altered mental status type (3) Leucocytosis: Qualified Code: D72.829 - Leukocytosis, unspecified type (4) Diabetes type 1, uncontrolled: Qualified Code: E10.8 - Uncontrolled type 1 diabetes mellitus with complication Shyla Gallegos MD Mar 13, 2017 09:12
[2017-03-13 12:00] VITALS: BP 103/50; PULSE 72; RESP 19; TEMP 97.8; O2SAT 95
[2017-03-13] MEDS: cefTRIAXone INJ 2,000 MG in SODIUM CHLORIDE 0.9% INJ 100 ML IV SCH (12:26)
[2017-03-13 16:00] VITALS: BP 101/53; PULSE 75; RESP 20; TEMP 98.1; O2SAT 95
[2017-03-13 20:00] VITALS: BP 109/55; PULSE 79; RESP 18; TEMP 96.3; O2SAT 98
[2017-03-14 00:03] VITALS: BP 138/65; PULSE 80; RESP 18; TEMP 97.9; O2SAT 98
[2017-03-14] MEDS: LACTATED RINGER'S 1000 ML INJ 1,000 ML IV SCH (02:30)
[2017-03-14] MEDS: metroNIDAZOLE 500 MG TAB PO SCH (06:30)
[2017-03-14] MEDS: INSULIN ASPART SUPPLEMENTAL SCALE SQ SCH ×4 (06:33→21:08)
[2017-03-14 07:58] VITALS: BP 156/65; PULSE 60; RESP 16; TEMP 97.1; O2SAT 98
[2017-03-14] MEDS: LIPASE/PROTEASE/AMYLASE (24,000/76,000/120,000) CAP PO SCH ×3 (08:59→17:35)
[2017-03-14] MEDS: INSULIN DETEMIR 100 UNITS/ML VIAL SQ SCH ×2 (08:59→21:07)
[2017-03-14] MEDS: LISINOPRIL 10 MG TAB PO SCH ×2 (08:59→21:00)
[2017-03-14] MEDS: PANTOPRAZOLE SOD 40 MG DELAYED RELEASE TAB PO SCH (08:59)
[2017-03-14] MEDS: METOPROLOL TARTRATE 25 MG TAB PO SCH ×3 (08:59→21:38)
[2017-03-14] MEDS: amLODIPine BESYLATE 5 MG TAB PO SCH (08:59)
[2017-03-14] MEDS: DOCUSATE SODIUM 100 MG CAP PO SCH ×2 (09:00→21:06)
[2017-03-14] MEDS: ARTIFICIAL TEARS OPTH SOLN 15 ML BTL EACH EYE SCH ×3 (09:00→17:35)
[2017-03-14] MEDS: BENEPROTEIN POWDER 1 PACK G-TUBE SCH ×3 (09:00→17:35)
[2017-03-14] MEDS: POLYETHYLENE GLYCOL 17 GM PKG PO SCH ×2 (09:00→21:07)
[2017-03-14] MEDS: LACTULOSE SYRUP 20 GM/30 ML CUP PO SCH ×4 (09:00→21:06)
[2017-03-14] MEDS: SENNOSIDES 8.6 MG TAB PO SCH ×2 (09:00→21:06)
[2017-03-14] MEDS: SODIUM CHLORIDE 0.9% FLUSH 10 ML FLUSH IVF SCH (09:06)
[2017-03-14] MEDS: SODIUM CHLORIDE 0.9% FLUSH 10 ML FLUSH IV FLUSH SCH ×2 (09:06→21:06)
[2017-03-14] MEDS: HEPARIN SODIUM - SQ 10,000 UNITS/ML VIAL SQ SCH ×2 (09:06→21:07)
[2017-03-14 12:00] VITALS: BP 115/59; PULSE 72; RESP 17; TEMP 96.3; O2SAT 100
[2017-03-14] MEDS ORDERED: MORPHINE SULFATE 8 MG/ML INJ ONE (12:19)
[2017-03-14] MEDS ORDERED: MORPHINE SULFATE 4 MG/ML INJ IV ONE (12:30)
--- NOTE | 2017-03-14 12:37 | HHI.PR ---
Subjective Patient symptoms today Pt seen and examined. Dressing changed at bedside. Objective Vital Signs Vital Signs Date Time Temp Pulse Resp B/P Pulse Ox O2 Delivery O2 Flow Rate FiO2 03/14/17 12:00 96.3 72 17 115/59 100 03/14/17 07:58 97.1 60 16 156/65 98 03/14/17 00:03 97.9 80 18 138/65 98 03/13/17 20:00 96.3 79 18 109/55 98 03/13/17 16:00 98.1 75 20 101/53 95 Intake & Output 03/14/17 03/14/17 07:00 19:00 Intake Total 860 ml Output Total 3700 ml Balance -2840 ml Intake Oral 860 ml Output Urine Total 3300 ml Stool Total 400 ml Result Diagram: 03/13/1744503/13/17445 Objective Remarks Abd:soft,nt,nd Wound: dressing intact and reinforced Ellis: urine clear 02/25 Abd:soft,nt,nd Wound: dressings intact; aneta in place Ellis: urine clear 02/27 Abd:soft,nt,nd Wound: VAC in place and draining Ellis: urine clear 03/04 Abd:soft,nt,nd Wound: Dressings intact Ellis: urine clear 03/05 Abd:soft,nt,nd Wound: Dressings intact Ellis: urine clear 03/07 Abd:soft,nt,nd Wound: Dressings intact Ellis: urine clear 03/08 Abd:soft,nt,nd Wound: Dressings intact Ellis: urine clear 03/10 Abd:soft,nt,nd Wound: Dressings intact Ellis: urine clear 03/11 Abd:soft,nt,nd Wound: clean and dry; packing changed at bedside with nurse 03/12 Abd:soft,nt,nd Wound: clean and dry; packing in place. 03/13 Abd:soft,nt,nd Wound: clean and dry; packing in place. Ellis with clear urine 03/14 Abd:soft,nt,nd Wound: clean and red tissue; no tissue Ellis with clear urine; breakdown of foreskin due to catheter pressure on foreskin Medications and IVs Current Medications Medications (Trade) Dose Ordered Sig/Jeremias Route Start Time Stop Time Status Last Admin (NS Flush) 2 ml UNSCH PRN IV FLUSH 02/19/17 00:15 (NS Flush) 2 ml BID IV FLUSH 02/19/17 09:00 03/14/17 09:06 (Dulcolax Supp) 10 mg DAILY PRN RECTAL 02/19/17 00:15 (Heparin Inj) 5,000 units Q12HR SQ 02/19/17 09:00 03/14/17 09:06 (Narcan Inj) 0.4 mg UNSCH PRN IV 02/19/17 00:15 (Tylenol) 650 mg Q6H PRN PO 02/19/17 15:00 03/06/17 23:48 (Tears Naturale Opth Soln) 1 drop TID EACH EYE 02/19/17 18:00 03/05/17 12:57 (Zofran Inj) 4 mg Q6H PRN IV 02/19/17 15:00 03/02/17 20:39 (Colace) 100 mg BID PO 02/19/17 21:00 03/10/17 23:38 (NS Flush) DAILY IVF 02/20/17 09:00 03/14/17 09:06 (NS Flush) UNSCH PRN IVF 02/19/17 15:45 (Creon 24-76-120) 2 cap TID PO 02/19/17 18:00 03/14/17 08:59 (Brethine Inj) 1 mg UNSCH PRN SQ 02/19/17 21:00 (Beneprotein Powder) 1 pack TID G-TUBE 02/21/17 18:00 03/06/17 17:22 (Senokot) 17.2 mg Q12HR PO 02/23/17 00:15 03/11/17 20:20 (Lactulose Liq) 30 ml QID PO 02/22/17 18:00 03/13/17 08:02 (Miralax) 17 gm Q12HR PO 02/23/17 09:00 03/10/17 23:38 (Flagyl) 500 mg Q8HR PO 02/25/17 17:00 03/14/17 06:30 (Protonix) 40 mg DAILY PO 03/02/17 09:00 03/14/17 08:59 (Trandate Inj) 20 mg Q3H PRN IV PUSH 03/02/17 07:00 03/04/17 01:10 (D50w (Vial) Inj) 25 ml UNSCH PRN IV PUSH 03/02/17 07:15 (Glucagon Inj) 1 mg UNSCH PRN OTHER 03/02/17 07:15 (Prinivil) 10 mg BID PO 03/03/17 09:00 03/14/17 08:59 (Lopressor) 50 mg Q12HR PO 03/03/17 09:00 03/14/17 08:59 Amlodipine Besylate 5 mg 5 mg DAILY PO 03/03/17 09:00 03/14/17 08:59 (Lr 1000 ml Inj) 1,000 ml @ 0 mls/hr Q24H IV 03/06/17 02:30 (Levemir Inj) 10 units HS SQ 03/09/17 21:00 03/13/17 21:27 (Levemir Inj) 20 units DAILY SQ 03/11/17 09:00 03/14/17 08:59 Temazepam 15 mg 15 mg HS PRN PO 03/10/17 21:00 (Zosyn 4.5 Gm Premix) 100 ml @ 200 mls/hr Q6H IV 03/14/17 12:30 UNV Assessment and Plan Assessment and Plan 66 y.o male with necrotizing fascitis s/p debridement For washout in AM 02/25 66 y.o male with necrotizing fascitis s/p debridement with washout Plastics consult to help with closure For washout in AM 02/27 66 y.o male with necrotizing fascitis s/p debridement with washout and VAC placement Will change VAC tomorrow in OR; will attempt to close if possible NPO after MN 03/04 66 y.o male with necrotizing fascitis s/p debridement with washout; dressing change Unable to close wound as yet as not enough granulation tissue OR on for washout/dressing change/possible closure 03/05 66 y.o male with necrotizing fascitis s/p debridement with washout; dressing change For washout with dressing change/possible closure tomorrow NPO after MN 03/07 66 y.o male with necrotizing fascitis s/p debridement with washout; dressing change For washout with dressing change/possible closure tomorrow NPO after MN 03/08 66 y.o male with necrotizing fascitis s/p debridement with washout; dressing change Continue current Rx For washout with dressing change on Friday. 03/09 66 y.o male with necrotizing fascitis s/p debridement with washout; dressing change Continue current Rx For washout with dressing change on Friday. 03/11 66 y.o male with necrotizing fascitis s/p debridement with washout; dressing change Continue current Rx Will be able to now change dressing at bedside every 2-3 days with wet/dry dressings using Normal Saline 03/12 66 y.o male with necrotizing fascitis s/p debridement with washout; dressing change Continue current Rx Dressing changes at bedside every 2-3 days. 03/13 66 y.o male with necrotizing fascitis s/p debridement with washout; dressing change Continue current Rx Dressing change in AM Wound care consult 03/14 66 y.o male with necrotizing fascitis s/p debridement with washout; dressing change at bedside today Continue current Rx OOB/Ambulate D/c Norbert Solorzano DO Mar 14, 2017 12:37
--- NOTE | 2017-03-14 12:40 | HHI.IDPN ---
Note Infectious Disease Note Patient without complaints. Denies nausea, chills. Afebrile. Wound dressing changed 02/11. Admitted with altered mental status along with severe dehydration. A CT scan of the abdomen and pelvis showed gas accumulation in the soft tissue of the perineum, scrotum and inguinal region associated with marked scrotal wall thickening characteristic of necrotizing type of infection. The patient was evaluated by urology and he was taken to surgery and underwent debridement of necrotic tissue and there was also purulent drainage as well. PAST MEDICAL HISTORY 1. Diabetes mellitus. 2. Hypertension. 3. Atrial fibrillation. 4. History of megacolon. 5. Arthritis. 6. Tonsillectomy. 7. Colostomy. 8. Oral surgery. 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 ALLERGIES FLOMAX. ANTIBIOTICS: 1. Ceftriaxone. 2. Flagyl. OBJECTIVE: Vital Signs Date Time Temp Pulse Resp B/P Pulse Ox O2 Delivery O2 Flow Rate FiO2 03/14/17 12:00 96.3 72 17 115/59 100 03/14/17 07:58 97.1 60 16 156/65 98 03/14/17 00:03 97.9 80 18 138/65 98 03/13/17 20:00 96.3 79 18 109/55 98 03/13/17 16:00 98.1 75 20 101/53 95 03/13/17 03/13/17 03/14/17 15:00 23:00 07:00 Intake Total 600 ml 480 ml 380 ml Output Total 1000 ml 1700 ml 2000 ml Balance -400 ml -1220 ml -1620 ml Intake Oral 600 ml 480 ml 380 ml Output Urine Total 850 ml 1500 ml 1800 ml Stool Total 150 ml 200 ml 200 ml Laboratory Tests Test 03/13/17 04:46 White Blood Count 11.1 TH/MM3 Red Blood Count 3.89 MIL/MM3 Hemoglobin 11.2 GM/DL Hematocrit 34.6 % Mean Corpuscular Volume 89.0 FL Mean Corpuscular Hemoglobin 28.9 PG Mean Corpuscular Hemoglobin 32.5 % Concent Red Cell Distribution Width 15.8 % Platelet Count 220 TH/MM3 Mean Platelet Volume 8.5 FL Laboratory Tests Test 03/13/17 04:46 Sodium Level 137 MEQ/L Potassium Level 4.2 MEQ/L Chloride Level 101 MEQ/L Carbon Dioxide Level 28.4 MEQ/L Anion Gap 8 MEQ/L Blood Urea Nitrogen 38 MG/DL Creatinine 1.01 MG/DL Estimat Glomerular Filtration 74 ML/MIN Rate Random Glucose 148 MG/DL Calcium Level 8.4 MG/DL Microbiology Date/Time Procedure Status Source Growth 02/18/17 22:35 Aerobic Blood Culture - Preliminary Resulted Blood Peripheral Streptococcus Species Pleomorphic Gram Positive Rods 02/18/17 22:35 Anaerobic Blood Culture - Final Resulted Viridans Streptococcus Grp 02/18/17 22:40 Aerobic Blood Culture - Preliminary Resulted Blood Peripheral NO GROWTH IN 3 DAYS 02/18/17 22:40 Anaerobic Blood Culture - Preliminary Resulted Viridans Streptococcus Grp 02/19/17 11:36 Gram Stain - Final Resulted Wound Other 02/19/17 11:36 Wound Culture - Preliminary Resulted Gram Negative Jean-Pierre 02/19/17 11:36 Acid Fast Stain - Final Resulted Wound Other NO ACID FAST BACILLI SEEN 02/19/17 11:36 Mycobacterial Culture Resulted Wound Other Pending 02/19/17 11:36 Fungal Smear - Final Resulted Wound Other NO FUNGAL ELEMENTS SEEN. 02/19/17 11:36 Fungal Culture Resulted Wound Other Pending 02/19/17 11:36 Gram Stain - Final Resulted Wound Other 02/19/17 11:36 Wound Culture - Preliminary Resulted Gram Negative Jean-Pierre 02/19/17 11:36 Acid Fast Stain - Final Resulted Wound Other NO ACID FAST BACILLI SEEN 02/19/17 11:36 Mycobacterial Culture Resulted Wound Other Pending 02/19/17 11:36 Fungal Smear - Final Resulted Wound Other NO FUNGAL ELEMENTS SEEN. 02/19/17 11:36 Fungal Culture Resulted Wound Other Pending PHYSICAL EXAMINATION GENERAL: Alert and oriented. HEENT: No icterus. Oropharynx has no visible lesions. NECK: No swelling or adenopathy. LUNGS: Clear BS. HEART: Irregular rate and rhythm. No murmurs, rubs or gallops. ABDOMEN: Bowel sounds present, soft, no tenderness. Colostomy in place. : The scrotum/perineum is post debridement. Wound is clean with good granulation. Foul odor upon removing the deep packing at the right scrotum. EXTREMITIES: No clubbing, cyanosis or edema. SKIN: No rash. NEURO: Non focal. IMPRESSION 1. 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 Strep viridans, gram positive jean-pierre and gram neg jean-pierre. 3. Acute kidney disease. renal function improved. 4. Leukocytosis secondary to infection. WBC fluctuating. RECOMMENDATIONS 1. Stop Ceftriaxone. 2. Stop Flagyl. 3. Start IV Zosyn to cover pseudomonas and gram negatives. 4. Reculture the wound at next dressing change. 5. Monitor WBC. Discussed with Dr Cassidy. Marko Hahn MD Mar 14, 2017 12:40
[2017-03-14] MEDS: PIPERACIL-TAZO 4.5 GM PREMIX 100 ML IV SCH ×2 (15:47→20:44)
[2017-03-14 16:00] VITALS: BP 106/54; PULSE 78; RESP 16; TEMP 97.2; O2SAT 98
--- NOTE | 2017-03-14 17:17 | HHI.PR ---
Subjective Remarks Follow-up for Tony's gangrene. The patient is doing well today. He denies any pain. Dressing was changed with urology today. Ellis was removed per urology order, patient hasn't been able to void yet. The patient has been eating okay. He reports normal bowel movements. The patient states that he doesn't normally have high blood pressure whenever he is at home, normally his blood pressure runs low. Objective Vitals Vital Signs Date Time Temp Pulse Resp B/P Pulse Ox O2 Delivery O2 Flow Rate FiO2 03/14/17 16:00 97.2 78 16 106/54 98 03/14/17 12:00 96.3 72 17 115/59 100 03/14/17 07:58 97.1 60 16 156/65 98 03/14/17 00:03 97.9 80 18 138/65 98 03/13/17 20:00 96.3 79 18 109/55 98 I/O 03/13/17 03/13/17 03/13/17 03/14/17 03/14/17 03/14/17 07:00 15:00 23:00 07:00 15:00 23:00 Intake Total 640 ml 600 ml 480 ml 380 ml 1920 ml Output Total 1200 ml 1000 ml 1700 ml 2000 ml 1426 ml 150 ml Balance -560 ml -400 ml -1220 ml -1620 ml 494 ml -150 ml Intake Oral 640 ml 600 ml 480 ml 380 ml 1920 ml Output Urine Total 1200 ml 850 ml 1500 ml 1800 ml 1425 ml 150 ml Stool Total 150 ml 200 ml 200 ml 1 ml # Bowel Movements 0 Result Diagram: 03/13/17 0446 03/13/17 0446 Imaging Last Impressions Chest X-Ray 03/07/17 0000 Signed Impressions: Service Date/Time: Tuesday, March 07, 2017 12:33 - CONCLUSION: No acute disease. Lance Martinez MD Head CT 02/19/172205 Signed Impressions: Service Date/Time: Sunday, February 19, 2017 00:30 - CONCLUSION: 1. No acute findings. No significant change from September 2016. Jermain Minaya MD Abdomen/Pelvis CT 02/19/172205 Signed Impressions: Service Date/Time: Sunday, February 19, 2017 00:36 - CONCLUSION: #1. 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 #2. Left lower quadrant colostomy. Fluid distention of blind-ending rectal pouch to 8.6 cm. Jermain Minaya MD Objective Remarks GENERAL: Well-developed well-nourished. In no acute distress. SKIN: Warm and dry. No lesions noted. HEENT: Normocephalic. Pupils equal and round. Mucous membranes pink and moist. CARDIOVASCULAR: Regular rate and rhythm. No murmur appreciated. RESPIRATORY: No accessory muscle use. Clear to auscultation. Breath sounds equal bilaterally. GASTROINTESTINAL: Abdomen soft, non-tender, nondistended. Bowel sounds x4. Ostomy in place on the left. Perineal wound with clean dressing. MUSCULOSKELETAL: No obvious deformities. No clubbing or cyanosis. Trace edema. NEUROLOGICAL: Awake and alert. No focal neurological deficits. Moves upper and lower extremities spontaneously. Normal speech. PSYCHIATRIC: Appropriate mood and affect; insight and judgment normal. 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 Postop excision and debridement with washout of necrotizing fasciitis of the perineum, scrotum, and bilateral groin region secondary to Necrotizing fasciitis/Tony's Gangrene involving scrotum, perineum, bilateral groin regions. Blood cultures 2 02/18 viridans strep, pleomorphic gram -positive rods. Wound culture 02/19 Morganella and Proteus. S/p washout with debridement of perineal wound and dressing change 03/11. - continue antibiotics per ID. Changed to IV Zosyn - wound care per urology. Wound care consulted. Hypotension/ HTN Hypotension likely s/t sepsis. Currently off all vasopressors and normotensive to hypertensive. Echocardiogram 2013 revealed EF 50-55%; No regional wall motion abnormality; Mildly dilated left atrium. - currently on multiple antihypertensive agents. BP is labile with intermittent episodes of hypotension. Adjust as needed. -Hold amlodipine for now Acute respiratory failure S/p intubation and extubation, now on nasal cannula. - Bronchodilator therapy as needed. - incentive spirometry. - encourage ambulation. - wean oxygen as tolerated. 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 - continue ostomy care. Chronic pancreatitis Not in acute exacerbation. -Continue Creon 2 tablets 3 times a day. Diabetes mellitus S/p insulin drip. Glucose improved 03/11. - continue sliding scale insulin with Accu-Cheks. -Continue Levemir to 20 units daily, 10 at night. -Monitor and adjust regimen as needed. 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 - Recommended Maxorb 3 days/keep heels elevated off bed. Prophylaxis: SCD/heparin subcutaneous. Problem Qualifiers (1) Sepsis: Qualified Code: A41.9 - Sepsis, due to unspecified organism (2) Altered mental status: Qualified Code: R41.82 - Altered mental status, unspecified altered mental status type (3) Leucocytosis: Qualified Code: D72.829 - Leukocytosis, unspecified type (4) Diabetes type 1, uncontrolled: Qualified Code: E10.8 - Uncontrolled type 1 diabetes mellitus with complication [place] Mar 14, 2017 17:17
[2017-03-14 20:01] VITALS: BP 107/55; PULSE 78; RESP 18; TEMP 98.1; O2SAT 96
[2017-03-14 23:51] VITALS: BP 110/55; PULSE 80; RESP 18; TEMP 97.8; O2SAT 96
[2017-03-15] MEDS: PIPERACIL-TAZO 4.5 GM PREMIX 100 ML IV SCH ×4 (01:42→20:01)
[2017-03-15] MEDS: LACTATED RINGER'S 1000 ML INJ 1,000 ML IV SCH (02:30)
[2017-03-15] MEDS: INSULIN ASPART SUPPLEMENTAL SCALE SQ SCH ×4 (06:26→21:00)
[2017-03-15 08:00] VITALS: BP 112/58; PULSE 69; RESP 15; TEMP 95.8; O2SAT 98
--- NOTE | 2017-03-15 08:24 | HHI.PR ---
Subjective Patient symptoms today Pt seen and examined. In AUR last night; lainez replaced Objective Vital Signs Vital Signs Date Time Temp Pulse Resp B/P Pulse Ox O2 Delivery O2 Flow Rate FiO2 03/14/17 23:51 97.8 80 18 110/55 96 03/14/17 20:01 98.1 78 18 107/55 96 03/14/17 16:00 97.2 78 16 106/54 98 03/14/17 12:00 96.3 72 17 115/59 100 Intake & Output 03/15/17 03/15/17 07:00 19:00 Intake Total 940 ml Output Total 1500 ml Balance -560 ml Intake Oral 840 ml IV Total 100 ml Output Urine Total 1000 ml Stool Total 500 ml Bladder Scan Volume Amount 715 ml # Voids 0 Result Diagram: 03/13/1744503/13/17445 Objective Remarks Abd:soft,nt,nd Wound: dressing intact and reinforced Lainez: urine clear 02/25 Abd:soft,nt,nd Wound: dressings intact; aneta in place Lainez: urine clear 02/27 Abd:soft,nt,nd Wound: VAC in place and draining Lainez: urine clear 03/04 Abd:soft,nt,nd Wound: Dressings intact Lainez: urine clear 03/05 Abd:soft,nt,nd Wound: Dressings intact Lainez: urine clear 03/07 Abd:soft,nt,nd Wound: Dressings intact Lainez: urine clear 03/08 Abd:soft,nt,nd Wound: Dressings intact Lainez: urine clear 03/10 Abd:soft,nt,nd Wound: Dressings intact Lainez: urine clear 03/11 Abd:soft,nt,nd Wound: clean and dry; packing changed at bedside with nurse 03/12 Abd:soft,nt,nd Wound: clean and dry; packing in place. 03/13 Abd:soft,nt,nd Wound: clean and dry; packing in place. Lainez with clear urine 03/14 Abd:soft,nt,nd Wound: clean and red tissue; no tissue Lainez with clear urine; breakdown of foreskin due to catheter pressure on foreskin 03/15 Abd:soft,nt,nd Wound: dressings intact Lainez with clear urine; keep taped to abdomen Medications and IVs Current Medications Medications (Trade) Dose Ordered Sig/Jeremias Route Start Time Stop Time Status Last Admin (NS Flush) 2 ml UNSCH PRN IV FLUSH 02/19/17 00:15 (NS Flush) 2 ml BID IV FLUSH 02/19/17 09:00 03/14/17 21:06 (Dulcolax Supp) 10 mg DAILY PRN RECTAL 02/19/17 00:15 (Heparin Inj) 5,000 units Q12HR SQ 02/19/17 09:00 03/14/17 21:07 (Narcan Inj) 0.4 mg UNSCH PRN IV 02/19/17 00:15 (Tylenol) 650 mg Q6H PRN PO 02/19/17 15:00 03/06/17 23:48 (Tears Naturale Opth Soln) 1 drop TID EACH EYE 02/19/17 18:00 03/05/17 12:57 (Zofran Inj) 4 mg Q6H PRN IV 02/19/17 15:00 03/02/17 20:39 (Colace) 100 mg BID PO 02/19/17 21:00 03/14/17 21:06 (NS Flush) DAILY IVF 02/20/17 09:00 03/14/17 09:06 (NS Flush) UNSCH PRN IVF 02/19/17 15:45 (Creon [id number]) 2 cap TID PO 02/19/17 18:00 03/14/17 17:35 (Brethine Inj) 1 mg UNSCH PRN SQ 02/19/17 21:00 (Beneprotein Powder) 1 pack TID G-TUBE 02/21/17 18:00 03/06/17 17:22 (Senokot) 17.2 mg Q12HR PO 02/23/17 00:15 03/14/17 21:06 (Lactulose Liq) 30 ml QID PO 02/22/17 18:00 03/14/17 21:06 (Miralax) 17 gm Q12HR PO 02/23/17 09:00 03/14/17 21:07 (Protonix) 40 mg DAILY PO 03/02/17 09:00 03/14/17 08:59 (Trandate Inj) 20 mg Q3H PRN IV PUSH 03/02/17 07:00 03/04/17 01:10 (D50w (Vial) Inj) 25 ml UNSCH PRN IV PUSH 03/02/17 07:15 (Glucagon Inj) 1 mg UNSCH PRN OTHER 03/02/17 07:15 (Prinivil) 10 mg BID PO 03/03/17 09:00 Hold 03/14/17 08:59 Metoprolol Tartrate 50 mg 50 mg Q12HR PO 03/03/17 09:00 03/14/17 08:59 (Lr 1000 ml Inj) 1,000 ml @ 0 mls/hr Q24H IV 03/06/17 02:30 (Levemir Inj) 10 units HS SQ 03/09/17 21:00 03/14/17 21:07 (Levemir Inj) 20 units DAILY SQ 03/11/17 09:00 03/14/17 08:59 Temazepam 15 mg 15 mg HS PRN PO 03/10/17 21:00 03/14/17 23:21 (Zosyn 4.5 Gm Premix) 100 ml @ 200 mls/hr Q6H IV 03/14/17 14:00 03/15/17 01:42 Assessment and Plan Assessment and Plan 66 y.o male with necrotizing fascitis s/p debridement For washout in AM 02/25 66 y.o male with necrotizing fascitis s/p debridement with washout Plastics consult to help with closure For washout in AM 02/27 66 y.o male with necrotizing fascitis s/p debridement with washout and VAC placement Will change VAC tomorrow in OR; will attempt to close if possible NPO after MN 03/04 66 y.o male with necrotizing fascitis s/p debridement with washout; dressing change Unable to close wound as yet as not enough granulation tissue OR on for washout/dressing change/possible closure 03/05 66 y.o male with necrotizing fascitis s/p debridement with washout; dressing change For washout with dressing change/possible closure tomorrow NPO after MN 03/07 66 y.o male with necrotizing fascitis s/p debridement with washout; dressing change For washout with dressing change/possible closure tomorrow NPO after MN 03/08 66 y.o male with necrotizing fascitis s/p debridement with washout; dressing change Continue current Rx For washout with dressing change on Friday. 03/09 66 y.o male with necrotizing fascitis s/p debridement with washout; dressing change Continue current Rx For washout with dressing change on Friday. 03/11 66 y.o male with necrotizing fascitis s/p debridement with washout; dressing change Continue current Rx Will be able to now change dressing at bedside every 2-3 days with wet/dry dressings using Normal Saline 03/12 66 y.o male with necrotizing fascitis s/p debridement with washout; dressing change Continue current Rx Dressing changes at bedside every 2-3 days. 03/13 66 y.o male with necrotizing fascitis s/p debridement with washout; dressing change Continue current Rx Dressing change in AM Wound care consult 03/14 66 y.o male with necrotizing fascitis s/p debridement with washout; dressing change at bedside today Continue current Rx OOB/Ambulate D/c fatou 03/15 66 y.o male with necrotizing fascitis s/p debridement with washout; dressing change at bedside today Failed VT last night; lainez replaced OOB to chair Dressing change on Friday Norbert Cassidy DO Mar 15, 2017 08:24
[2017-03-15] MEDS: LACTULOSE SYRUP 20 GM/30 ML CUP PO SCH ×4 (08:25→20:45)
[2017-03-15] MEDS: POLYETHYLENE GLYCOL 17 GM PKG PO SCH ×2 (08:25→20:53)
[2017-03-15] MEDS: LIPASE/PROTEASE/AMYLASE (24,000/76,000/120,000) CAP PO SCH ×3 (08:26→16:39)
[2017-03-15] MEDS: SENNOSIDES 8.6 MG TAB PO SCH ×2 (08:26→20:54)
[2017-03-15] MEDS: HEPARIN SODIUM - SQ 10,000 UNITS/ML VIAL SQ SCH ×2 (08:27→20:47)
[2017-03-15] MEDS: PANTOPRAZOLE SOD 40 MG DELAYED RELEASE TAB PO SCH (08:27)
[2017-03-15] MEDS: INSULIN DETEMIR 100 UNITS/ML VIAL SQ SCH ×2 (08:27→20:46)
[2017-03-15] MEDS: METOPROLOL TARTRATE 25 MG TAB PO SCH ×2 (08:27→20:54)
[2017-03-15] MEDS: DOCUSATE SODIUM 100 MG CAP PO SCH ×2 (08:27→20:45)
[2017-03-15] MEDS: ARTIFICIAL TEARS OPTH SOLN 15 ML BTL EACH EYE SCH ×3 (08:28→16:39)
[2017-03-15] MEDS: SODIUM CHLORIDE 0.9% FLUSH 10 ML FLUSH IV FLUSH SCH ×2 (08:29→21:00)
[2017-03-15] MEDS: BENEPROTEIN POWDER 1 PACK G-TUBE SCH ×3 (08:29→16:40)
[2017-03-15] MEDS: SODIUM CHLORIDE 0.9% FLUSH 10 ML FLUSH IVF SCH (08:29)
[2017-03-15 12:00] VITALS: BP 100/56; PULSE 75; RESP 15; TEMP 97.1; O2SAT 98
--- NOTE | 2017-03-15 14:05 | HHI.PR ---
Subjective Remarks Follow-up for Tony's gangrene. The patient has no acute complaints today. He denies any fevers or chills. Has been eating well. Reports normal bowel movements. He did fail voiding trial yesterday and Ellis catheter was replaced overnight. Discussed with RN, patient has been out of bed to chair today, but appeared weak with ambulation. The patient denies any prior history of arrhythmia. Objective Vitals Vital Signs Date Time Temp Pulse Resp B/P Pulse Ox O2 Delivery O2 Flow Rate FiO2 03/15/17 12:00 97.1 75 15 100/56 98 03/15/17 08:00 95.8 69 15 112/58 98 03/14/17 23:51 97.8 80 18 110/55 96 03/14/17 20:01 98.1 78 18 107/55 96 03/14/17 16:00 97.2 78 16 106/54 98 I/O 03/14/17 03/14/17 03/14/17 03/15/17 03/15/17 03/15/17 07:00 15:00 23:00 07:00 15:00 23:00 Intake Total 380 ml 1920 ml 580 ml 360 ml Output Total 2000 ml 1426 ml 350 ml 1300 ml Balance -1620 ml 494 ml 230 ml -940 ml Intake Oral 380 ml 1920 ml 480 ml 360 ml IV Total 100 ml Output Urine Total 1800 ml 1425 ml 150 ml 1000 ml Stool Total 200 ml 1 ml 200 ml 300 ml Bladder Scan Volume Amount 715 ml 715 ml # Voids 0 Result Diagram: 03/13/17 0446 03/13/17 0446 Objective Remarks GENERAL: Well-developed well-nourished. In no acute distress. SKIN: Warm and dry. No lesions noted. HEENT: Normocephalic. Pupils equal and round. Mucous membranes pink and moist. CARDIOVASCULAR: Regular rate and rhythm. No murmur appreciated. RESPIRATORY: No accessory muscle use. Clear to auscultation. Breath sounds equal bilaterally. GASTROINTESTINAL: Abdomen soft, non-tender, nondistended. Bowel sounds x4. Ostomy in place on the left. Perineal wound with clean dressing. MUSCULOSKELETAL: No obvious deformities. No clubbing or cyanosis. Trace edema. NEUROLOGICAL: Awake and alert. No focal neurological deficits. Moves upper and lower extremities spontaneously. Normal speech. PSYCHIATRIC: Appropriate mood and affect; insight and judgment normal. 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 Postop excision and debridement with washout of necrotizing fasciitis of the perineum, scrotum, and bilateral groin region secondary to Necrotizing fasciitis/Tony's Gangrene involving scrotum, perineum, bilateral groin regions. Blood cultures 2 02/18 viridans strep, pleomorphic gram -positive rods. Wound culture 02/19 Morganella and Proteus. S/p washout with debridement of perineal wound and dressing change 03/11. - continue antibiotics per ID. Changed to IV Zosyn - wound care per urology. Wound care consulted. Hypotension/ HTN Questionable history of atrial fibrillation, patient denies, previous EKG reviewed, PACs/PVCs Echocardiogram 2013 revealed EF 50-55%; No regional wall motion abnormality; Mildly dilated left atrium. -currently on multiple antihypertensive agents. BP is labile with intermittent episodes of hypotension. Adjust as needed. -Discontinued amlodipine. Hold lisinopril. Decrease metoprolol. Acute respiratory failure S/p intubation and extubation, now on nasal cannula. - Bronchodilator therapy as needed. - incentive spirometry. - encourage ambulation. - wean oxygen as tolerated. 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 - continue ostomy care. Chronic pancreatitis Not in acute exacerbation. -Continue Creon 2 tablets 3 times a day. Diabetes mellitus S/p insulin drip. Glucose improved 03/11. - continue sliding scale insulin with Accu-Cheks. - Continue Levemir to 20 units daily, 10 at night. - Monitor and adjust regimen as needed. 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 - Recommended Maxorb 3 days/keep heels elevated off bed. Prophylaxis: SCD/heparin subcutaneous. Continue PT and OOB Problem Qualifiers (1) Sepsis: Qualified Code: A41.9 - Sepsis, due to unspecified organism (2) Altered mental status: Qualified Code: R41.82 - Altered mental status, unspecified altered mental status type (3) Leucocytosis: Qualified Code: D72.829 - Leukocytosis, unspecified type (4) Diabetes type 1, uncontrolled: Qualified Code: E10.8 - Uncontrolled type 1 diabetes mellitus with complication [place] Mar 15, 2017 14:05
[2017-03-15 16:00] VITALS: BP 111/56; PULSE 75; RESP 17; TEMP 96.4; O2SAT 100
[2017-03-15 20:00] VITALS: BP 114/70; PULSE 73; RESP 21; TEMP 97.1; O2SAT 100
[2017-03-15 23:39] VITALS: BP 152/70; PULSE 66; RESP 21; TEMP 96; O2SAT 99
[2017-03-16] MEDS: PIPERACIL-TAZO 4.5 GM PREMIX 100 ML IV SCH ×4 (02:00→21:47)
[2017-03-16] MEDS: LACTATED RINGER'S 1000 ML INJ 1,000 ML IV SCH ×2 (02:30→21:47)
[2017-03-16] MEDS: INSULIN ASPART SUPPLEMENTAL SCALE SQ SCH ×4 (06:15→21:45)
[2017-03-16 08:00] VITALS: BP 120/61; PULSE 64; RESP 17; TEMP 96.9; O2SAT 97
--- NOTE | 2017-03-16 08:05 | HHI.PR ---
Subjective Remarks Follow-up for Tony's gangrene and hypertension. Patient has no acute complaints today. He denies any fevers or chills. He continues to maintain that he doesn't need any medications for blood pressure because he was not on anything at home. Objective Vitals Vital Signs Date Time Temp Pulse Resp B/P Pulse Ox O2 Delivery O2 Flow Rate FiO2 03/15/17 23:39 96.0 66 21 152/70 99 03/15/17 20:00 97.1 73 21 114/70 100 03/15/17 16:00 96.4 75 17 111/56 100 03/15/17 12:00 97.1 75 15 100/56 98 I/O 03/15/17 03/15/17 03/15/17 03/16/17 03/16/17 03/16/17 07:00 15:00 23:00 07:00 15:00 23:00 Intake Total 360 ml 820 ml 340 ml 340 ml Output Total 1300 ml 1500 ml 1050 ml 4300 ml Balance -940 ml -680 ml -710 ml -3960 ml Intake Oral 360 ml 720 ml 240 ml 240 ml IV Total 100 ml 100 ml 100 ml Output Urine Total 1000 ml 1250 ml 250 ml 2000 ml Stool Total 300 ml 250 ml 800 ml 2300 ml Bladder Scan Volume Amount 715 ml 715 ml 715 ml Result Diagram: 03/13/17 04403/13/17 044 Objective Remarks GENERAL: Well-developed well-nourished. In no acute distress. SKIN: Warm and dry. No lesions noted. HEENT: Normocephalic. Pupils equal and round. Mucous membranes pink and moist. CARDIOVASCULAR: Regular rate and rhythm. No murmur appreciated. RESPIRATORY: No accessory muscle use. Clear to auscultation. Breath sounds equal bilaterally. GASTROINTESTINAL: Abdomen soft, non-tender, nondistended. Bowel sounds x4. Ostomy in place on the left. Perineal wound with clean dressing. MUSCULOSKELETAL: No obvious deformities. No clubbing or cyanosis. Trace edema. NEUROLOGICAL: Awake and alert. No focal neurological deficits. Moves upper and lower extremities spontaneously. Normal speech. PSYCHIATRIC: Appropriate mood and affect; insight and judgment normal. 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 Postop excision and debridement with washout of necrotizing fasciitis of the perineum, scrotum, and bilateral groin region secondary to Necrotizing fasciitis/Tony's Gangrene involving scrotum, perineum, bilateral groin regions. Blood cultures 2 02/18 viridans strep, pleomorphic gram -positive rods. Wound culture 02/19 Morganella and Proteus. S/p washout with debridement of perineal wound and dressing change 03/11. - continue antibiotics per ID. Changed to IV Zosyn - wound care per urology. Wound care consulted. Hypotension/ HTN Questionable history of atrial fibrillation, patient denies, previous EKG reviewed, PACs/PVCs Echocardiogram 2013 revealed EF 50-55%; No regional wall motion abnormality; Mildly dilated left atrium. -currently on multiple antihypertensive agents. BP is labile with intermittent episodes of hypotension. Adjust as needed. -Discontinued amlodipine. Hold lisinopril. Decreased metoprolol. -03/16 BP appears to be improving Acute respiratory failure S/p intubation and extubation, now on nasal cannula. - Bronchodilator therapy as needed. - incentive spirometry. - encourage ambulation. - wean oxygen as tolerated. 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 - continue ostomy care. Chronic pancreatitis Not in acute exacerbation. -Continue Creon 2 tablets 3 times a day. Diabetes mellitus S/p insulin drip. Glucose improved 03/11. - continue sliding scale insulin with Accu-Cheks. - Continue Levemir to 20 units daily, 10 at night. - Monitor and adjust regimen as needed. 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 - Recommended Maxorb 3 days/keep heels elevated off bed. Prophylaxis: SCD/heparin subcutaneous. Continue PT and OOB Discharge Planning Discharge planning likely to SNF after patient cleared by urology and ID. Case management consulted. Problem Qualifiers (1) Sepsis: Qualified Code: A41.9 - Sepsis, due to unspecified organism (2) Altered mental status: Qualified Code: R41.82 - Altered mental status, unspecified altered mental status type (3) Leucocytosis: Qualified Code: D72.829 - Leukocytosis, unspecified type (4) Diabetes type 1, uncontrolled: Qualified Code: E10.8 - Uncontrolled type 1 diabetes mellitus with complication [place] Mar 16, 2017 08:04 Radha Pimentel MD Mar 16, 2017 17:27
[2017-03-16] MEDS: BENEPROTEIN POWDER 1 PACK G-TUBE SCH ×3 (08:35→17:30)
[2017-03-16] MEDS: ARTIFICIAL TEARS OPTH SOLN 15 ML BTL EACH EYE SCH ×3 (08:35→17:29)
[2017-03-16] MEDS: SENNOSIDES 8.6 MG TAB PO SCH ×2 (08:36→21:00)
[2017-03-16] MEDS: POLYETHYLENE GLYCOL 17 GM PKG PO SCH ×2 (08:36→21:00)
[2017-03-16] MEDS: DOCUSATE SODIUM 100 MG CAP PO SCH ×2 (08:36→21:00)
[2017-03-16] MEDS: LIPASE/PROTEASE/AMYLASE (24,000/76,000/120,000) CAP PO SCH ×3 (08:36→17:29)
[2017-03-16] MEDS: SODIUM CHLORIDE 0.9% FLUSH 10 ML FLUSH IVF SCH (08:36)
[2017-03-16] MEDS: LACTULOSE SYRUP 20 GM/30 ML CUP PO SCH ×4 (08:36→21:00)
[2017-03-16] MEDS: PANTOPRAZOLE SOD 40 MG DELAYED RELEASE TAB PO SCH (08:36)
[2017-03-16] MEDS: SODIUM CHLORIDE 0.9% FLUSH 10 ML FLUSH IV FLUSH SCH ×2 (08:36→21:47)
[2017-03-16] MEDS: HEPARIN SODIUM - SQ 10,000 UNITS/ML VIAL SQ SCH ×2 (08:37→21:46)
[2017-03-16] MEDS: METOPROLOL TARTRATE 25 MG TAB PO SCH ×2 (08:37→21:47)
[2017-03-16] MEDS: INSULIN DETEMIR 100 UNITS/ML VIAL SQ SCH ×2 (08:37→21:46)
[2017-03-16 12:00] VITALS: BP 142/63; PULSE 68; RESP 17; TEMP 95.4; O2SAT 98
[2017-03-16 16:00] VITALS: BP 108/66; PULSE 65; RESP 17; TEMP 96.7; O2SAT 99
[2017-03-16 20:00] VITALS: BP 135/62; PULSE 75; RESP 20; TEMP 99.1; O2SAT 100
[2017-03-16 23:46] VITALS: BP 148/68; PULSE 71; RESP 19; TEMP 96; O2SAT 98
[2017-03-17] MEDS: PIPERACIL-TAZO 4.5 GM PREMIX 100 ML IV SCH ×4 (01:53→21:10)
[2017-03-17] MEDS: INSULIN ASPART SUPPLEMENTAL SCALE SQ SCH ×4 (05:59→21:28)
[2017-03-17 08:00] VITALS: BP 136/66; PULSE 71; RESP 19; TEMP 96.2; O2SAT 97
[2017-03-17] MEDS: DOCUSATE SODIUM 100 MG CAP PO SCH ×2 (08:56→21:10)
[2017-03-17] MEDS: LACTULOSE SYRUP 20 GM/30 ML CUP PO SCH ×2 (08:57→12:55)
[2017-03-17] MEDS: LIPASE/PROTEASE/AMYLASE (24,000/76,000/120,000) CAP PO SCH ×3 (08:57→17:44)
[2017-03-17] MEDS: PANTOPRAZOLE SOD 40 MG DELAYED RELEASE TAB PO SCH (08:57)
[2017-03-17] MEDS: SENNOSIDES 8.6 MG TAB PO SCH (08:57)
[2017-03-17] MEDS: POLYETHYLENE GLYCOL 17 GM PKG PO SCH (08:57)
[2017-03-17] MEDS: METOPROLOL TARTRATE 25 MG TAB PO SCH ×2 (08:57→21:10)
[2017-03-17] MEDS: BENEPROTEIN POWDER 1 PACK G-TUBE SCH ×3 (08:58→17:45)
[2017-03-17] MEDS: HEPARIN SODIUM - SQ 10,000 UNITS/ML VIAL SQ SCH ×2 (08:58→21:11)
[2017-03-17] MEDS: INSULIN DETEMIR 100 UNITS/ML VIAL SQ SCH ×2 (08:58→21:11)
[2017-03-17] MEDS: SODIUM CHLORIDE 0.9% FLUSH 10 ML FLUSH IV FLUSH SCH ×2 (08:58→21:10)
[2017-03-17] MEDS: ARTIFICIAL TEARS OPTH SOLN 15 ML BTL EACH EYE SCH ×2 (09:00→12:54)
[2017-03-17] MEDS: SODIUM CHLORIDE 0.9% FLUSH 10 ML FLUSH IVF SCH (09:01)
[2017-03-17 12:00] VITALS: BP 116/60; PULSE 73; RESP 18; TEMP 97.5; O2SAT 97
--- NOTE | 2017-03-17 12:41 | HHI.PR ---
Subjective Patient symptoms today Pt seen and examined. Wound dressing changed at bedside. Objective Vital Signs Vital Signs Date Time Temp Pulse Resp B/P Pulse Ox O2 Delivery O2 Flow Rate FiO2 03/17/17 08:00 96.2 71 19 136/66 97 03/16/17 23:46 96.0 71 19 148/68 98 03/16/17 20:00 99.1 75 20 135/62 100 03/16/17 16:00 96.7 65 17 108/66 99 Intake & Output 03/17/17 03/17/17 07:00 19:00 Intake Total 660 ml Output Total 2550 ml 50 ml Balance -1890 ml -50 ml Intake Oral 660 ml Output Urine Total 1850 ml Stool Total 700 ml 50 ml Bladder Scan Volume Amount 715 ml Result Diagram: 03/13/1744503/13/17445 Objective Remarks Abd:soft,nt,nd Wound: dressing intact and reinforced Lainez: urine clear 02/25 Abd:soft,nt,nd Wound: dressings intact; aneta in place Lainez: urine clear 02/27 Abd:soft,nt,nd Wound: VAC in place and draining Lainez: urine clear 03/04 Abd:soft,nt,nd Wound: Dressings intact Lainez: urine clear 03/05 Abd:soft,nt,nd Wound: Dressings intact Lainez: urine clear 03/07 Abd:soft,nt,nd Wound: Dressings intact Lainez: urine clear 03/08 Abd:soft,nt,nd Wound: Dressings intact Lainez: urine clear 03/10 Abd:soft,nt,nd Wound: Dressings intact Lainez: urine clear 03/11 Abd:soft,nt,nd Wound: clean and dry; packing changed at bedside with nurse 03/12 Abd:soft,nt,nd Wound: clean and dry; packing in place. 03/13 Abd:soft,nt,nd Wound: clean and dry; packing in place. Lainez with clear urine 03/14 Abd:soft,nt,nd Wound: clean and red tissue; no tissue Lainez with clear urine; breakdown of foreskin due to catheter pressure on foreskin 03/15 Abd:soft,nt,nd Wound: dressings intact Lainez with clear urine; keep taped to abdomen 03/17 Abd:soft,nt,nd Wound: clean and dry; wound culture sent Lainez with clear urine; keep taped to abdomen Medications and IVs Current Medications Medications (Trade) Dose Ordered Sig/Jeremias Route Start Time Stop Time Status Last Admin (NS Flush) 2 ml UNSCH PRN IV FLUSH 02/19/17 00:15 (NS Flush) 2 ml BID IV FLUSH 02/19/17 09:00 03/17/17 08:58 (Dulcolax Supp) 10 mg DAILY PRN RECTAL 02/19/17 00:15 (Heparin Inj) 5,000 units Q12HR SQ 02/19/17 09:00 03/17/17 08:58 (Narcan Inj) 0.4 mg UNSCH PRN IV 02/19/17 00:15 (Tylenol) 650 mg Q6H PRN PO 02/19/17 15:00 03/06/17 23:48 (Tears Naturale Opth Soln) 1 drop TID EACH EYE 02/19/17 18:00 03/05/17 12:57 (Zofran Inj) 4 mg Q6H PRN IV 02/19/17 15:00 03/02/17 20:39 (Colace) 100 mg BID PO 02/19/17 21:00 03/17/17 08:56 (NS Flush) DAILY IVF 02/20/17 09:00 03/17/17 09:01 (NS Flush) UNSCH PRN IVF 02/19/17 15:45 (Creon 24-76-120) 2 cap TID PO 02/19/17 18:00 03/17/17 08:57 (Brethine Inj) 1 mg UNSCH PRN SQ 02/19/17 21:00 (Beneprotein Powder) 1 pack TID G-TUBE 02/21/17 18:00 03/06/17 17:22 (Senokot) 17.2 mg Q12HR PO 02/23/17 00:15 03/16/17 08:36 (Lactulose Liq) 30 ml QID PO 02/22/17 18:00 03/17/17 08:57 (Miralax) 17 gm Q12HR PO 02/23/17 09:00 03/17/17 08:57 (Protonix) 40 mg DAILY PO 03/02/17 09:00 03/17/17 08:57 (Trandate Inj) 20 mg Q3H PRN IV PUSH 03/02/17 07:00 03/04/17 01:10 (D50w (Vial) Inj) 25 ml UNSCH PRN IV PUSH 03/02/17 07:15 (Glucagon Inj) 1 mg UNSCH PRN OTHER 03/02/17 07:15 Lisinopril 10 mg 10 mg BID PO 03/03/17 09:00 Hold 03/14/17 08:59 (Lr 1000 ml Inj) 1,000 ml @ 0 mls/hr Q24H IV 03/06/17 02:30 (Levemir Inj) 10 units HS SQ 03/09/17 21:00 03/16/17 21:46 (Levemir Inj) 20 units DAILY SQ 03/11/17 09:00 03/17/17 08:58 Temazepam 15 mg 15 mg HS PRN PO 03/10/17 21:00 03/14/17 23:21 (Zosyn 4.5 Gm Premix) 100 ml @ 200 mls/hr Q6H IV 03/14/17 14:00 03/17/17 08:56 (Lopressor) 25 mg Q12HR PO 03/15/17 21:00 03/17/17 08:57 Assessment and Plan Assessment and Plan 66 y.o male with necrotizing fascitis s/p debridement For washout in AM 02/25 66 y.o male with necrotizing fascitis s/p debridement with washout Plastics consult to help with closure For washout in AM 02/27 66 y.o male with necrotizing fascitis s/p debridement with washout and VAC placement Will change VAC tomorrow in OR; will attempt to close if possible NPO after MN 03/04 66 y.o male with necrotizing fascitis s/p debridement with washout; dressing change Unable to close wound as yet as not enough granulation tissue OR on for washout/dressing change/possible closure 03/05 66 y.o male with necrotizing fascitis s/p debridement with washout; dressing change For washout with dressing change/possible closure tomorrow NPO after MN 03/07 66 y.o male with necrotizing fascitis s/p debridement with washout; dressing change For washout with dressing change/possible closure tomorrow NPO after MN 03/08 66 y.o male with necrotizing fascitis s/p debridement with washout; dressing change Continue current Rx For washout with dressing change on Friday. 03/09 66 y.o male with necrotizing fascitis s/p debridement with washout; dressing change Continue current Rx For washout with dressing change on Friday. 03/11 66 y.o male with necrotizing fascitis s/p debridement with washout; dressing change Continue current Rx Will be able to now change dressing at bedside every 2-3 days with wet/dry dressings using Normal Saline 03/12 66 y.o male with necrotizing fascitis s/p debridement with washout; dressing change Continue current Rx Dressing changes at bedside every 2-3 days. 03/13 66 y.o male with necrotizing fascitis s/p debridement with washout; dressing change Continue current Rx Dressing change in AM Wound care consult 03/14 66 y.o male with necrotizing fascitis s/p debridement with washout; dressing change at bedside today Continue current Rx OOB/Ambulate D/c lainez 03/15 66 y.o male with necrotizing fascitis s/p debridement with washout; dressing change at bedside today Failed VT last night; fatou replaced OOB to chair Dressing change on Saturday 03/17 66 y.o male with necrotizing fascitis s/p debridement with washout; dressing change at bedside today Dressing changed at bedside Failed VT last week; continue flomax OOB to chair Norbert Cassidy DO Mar 17, 2017 12:41
[2017-03-17] MEDS ORDERED: Vancomycin Consult Pharmacy 1 EA OTHER SCH (12:45)
[2017-03-17] MEDS: TAMSULOSIN HCL 0.4 MG CAP PO SCH (12:54)
--- NOTE | 2017-03-17 13:51 | HHI.PR ---
Subjective Remarks Follow-up for Tony's gangrene and hypertension. Patient seen and examined today, OT at bedside, sitting on side of bed. Does admit to occasional bouts of nausea that come and go. Tolerating PO intake, denies vomiting. He denies any chest pain, shortness of breath or abdominal pain. States pain is controlled. No new acute complaints. Objective Vitals Vital Signs Date Time Temp Pulse Resp B/P Pulse Ox O2 Delivery O2 Flow Rate FiO2 03/17/17 12:00 97.5 73 18 116/60 97 03/17/17 08:00 96.2 71 19 136/66 97 03/16/17 23:46 96.0 71 19 148/68 98 03/16/17 20:00 99.1 75 20 135/62 100 03/16/17 16:00 96.7 65 17 108/66 99 I/O 03/16/17 03/16/17 03/16/17 03/17/17 03/17/17 03/17/17 07:00 15:00 23:00 07:00 15:00 23:00 Intake Total 340 ml 2020 ml 540 ml 120 ml Output Total 4300 ml 1050 ml 450 ml 2100 ml 50 ml Balance -3960 ml 970 ml 90 ml -1980 ml -50 ml Intake Oral 240 ml 1920 ml 540 ml 120 ml IV Total 100 ml 100 ml Output Urine Total 2000 ml 850 ml 350 ml 1500 ml Stool Total 2300 ml 200 ml 100 ml 600 ml 50 ml Bladder Scan Volume Amount 715 ml Result Diagram: 03/13/17 0446 03/13/17 0446 Imaging Last Impressions Chest X-Ray 03/07/17 0000 Signed Impressions: Service Date/Time: Tuesday, March 07, 2017 12:33 - CONCLUSION: No acute disease. Lance Martinez MD Head CT 02/19/172205 Signed Impressions: Service Date/Time: Sunday, February 19, 2017 00:30 - CONCLUSION: 1. No acute findings. No significant change from September 2016. Jermain Minaya MD Abdomen/Pelvis CT 02/19/172205 Signed Impressions: Service Date/Time: Sunday, February 19, 2017 00:36 - CONCLUSION: #1. 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 #2. Left lower quadrant colostomy. Fluid distention of blind-ending rectal pouch to 8.6 cm. Jermain Minaya MD Objective Remarks GENERAL: Well-developed well-nourished. NAD. SKIN: Warm and dry. No lesions noted. HEENT: Normocephalic. Pupils equal and round. Mucous membranes pink and moist. CARDIOVASCULAR: Regular rate and rhythm. No murmur appreciated. RESPIRATORY: No accessory muscle use. Clear to auscultation. Breath sounds equal bilaterally. GASTROINTESTINAL: Abdomen soft, non-tender, nondistended. Bowel sounds x4. Ostomy in place on the left. Perineal wound with clean dressing, changed today 03/[address] Cassidy. MUSCULOSKELETAL: No obvious deformities. No clubbing or cyanosis. Trace edema. NEUROLOGICAL: Awake and alert. No focal neurological deficits. Moves upper and lower extremities spontaneously. Normal speech. PSYCHIATRIC: Appropriate mood and affect; insight and judgment normal. 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 Postop excision and debridement with washout of necrotizing fasciitis of the perineum, scrotum, and bilateral groin region secondary to Necrotizing fasciitis/Tony's Gangrene involving scrotum, perineum, bilateral groin regions. Blood cultures 2 02/18 viridans strep, pleomorphic gram -positive rods. Wound culture 02/19 Morganella and Proteus. S/p washout with debridement of perineal wound and dressing change 03/11. - continue antibiotics per ID. IV Zosyn continued. - Wound care per urology. Wound care consulted. Dressing changed todaby 03/[address] Cassidy, wound culture sent and pending. Hypotension/ HTN Questionable history of atrial fibrillation, patient denies, previous EKG reviewed, PACs/PVCs Echocardiogram 2013 revealed EF 50-55%; No regional wall motion abnormality; Mildly dilated left atrium. -Currently on multiple antihypertensive agents. BP is labile with intermittent episodes of hypotension. Adjust as needed. -Discontinued amlodipine. Lisinopril held. Continue metoprolol. -03/17 BP stable. Acute respiratory failure S/p intubation and extubation. - Bronchodilator therapy as needed. - incentive spirometry. - encourage ambulation. 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 - continue ostomy care. Chronic pancreatitis Not in acute exacerbation. -Continue Creon 2 tablets 3 times a day. Diabetes mellitus S/p insulin drip. Glucose improved 03/11. - Continue sliding scale insulin with Accu-Cheks. - Continue Levemir to 20 units daily, 10 at night. - Monitor and adjust regimen as needed. 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 Nausea - Zofran PRN - Encourage PO intake as tolerated. DVT Prophylaxis: SCD/heparin subcutaneous. Continue PT and OOB Discharge Planning Discharge planning likely to SNF after patient cleared by urology and ID. Case management consulted. Problem Qualifiers (1) Sepsis: Qualified Code: A41.9 - Sepsis, due to unspecified organism (2) Altered mental status: Qualified Code: R41.82 - Altered mental status, unspecified altered mental status type (3) Leucocytosis: Qualified Code: D72.829 - Leukocytosis, unspecified type (4) Diabetes type 1, uncontrolled: Qualified Code: E10.8 - Uncontrolled type 1 diabetes mellitus with complication Luly Galvez Mar 17, 2017 13:51 Radha Pimentel MD Mar 17, 2017 15:04
[2017-03-17 16:00] VITALS: BP 114/59; PULSE 78; RESP 19; TEMP 96.5; O2SAT 99
[2017-03-17] MEDS ORDERED: VANCOMYCIN IRRIGATION SCH (16:00)
[2017-03-17] MEDS ORDERED: IRR IRRIGATION SCH (16:00)
[2017-03-17] MEDS ORDERED: SODIUM CHLORIDE 0.9% IRRIGATION SCH (16:00)
[2017-03-17 20:00] VITALS: BP 121/63; PULSE 79; RESP 20; TEMP 97.8; O2SAT 97
[2017-03-18] VITALS: BP 121/65; PULSE 61; RESP 19; TEMP 97; O2SAT 95
[2017-03-18] MEDS: PIPERACIL-TAZO 4.5 GM PREMIX 100 ML IV SCH ×4 (02:21→20:17)
[2017-03-18] MEDS: LACTATED RINGER'S 1000 ML INJ 1,000 ML IV SCH (02:30)
[2017-03-18 05:15] LABS: AUTOMATED NEUTROPHIL # 4.8 TH/MM3 (1.8-7.7); BASOPHIL # 0.1 TH/MM3 (0-0.2); BASOPHIL % 0.7 % (0.0-2.0); EOSINOPHIL # 0.3 TH/MM3 (0-0.4); EOSINOPHIL % 3.8 % (0.0-4.0); HEMATOCRIT 33.3 % (39.0-51.0); HEMO FLAGS DIFF FINAL; LYMPH % 30.5 % (9.0-44.0); LYMPHOCYTE # 2.7 TH/MM3 (1.0-4.8); MEAN CELL VOLUME 88.3 FL (80.0-100.0); MEAN CORPUSCULAR HEMOGLOBIN 30.4 PG (27.0-34.0); MEAN CORPUSCULAR HGB CONC 34.4 % (32.0-36.0); MONO % 10.3 % (0.0-8.0); NEUT % 54.7 % (16.0-70.0); PLATELET COUNT 229 TH/MM3 (150-450); RED BLOOD COUNT 3.78 MIL/MM3 (4.50-5.90); RED CELL DISTRIBUTION WIDTH 16.9 % (11.6-17.2); WHITE BLOOD COUNT 8.9 TH/MM3 (4.0-11.0)
[2017-03-18 05:27] LABS: BICARBONATE 29.2 MEQ/L (21.0-32.0); POTASSIUM 4.3 MEQ/L (3.5-5.1)
[2017-03-18] MEDS: INSULIN ASPART SUPPLEMENTAL SCALE SQ SCH ×4 (06:55→20:21)
[2017-03-18 08:00] VITALS: BP 132/64; PULSE 67; RESP 16; TEMP 97.6; O2SAT 98
[2017-03-18] MEDS: METOPROLOL TARTRATE 25 MG TAB PO SCH ×2 (08:53→20:17)
[2017-03-18] MEDS: LIPASE/PROTEASE/AMYLASE (24,000/76,000/120,000) CAP PO SCH ×3 (08:53→17:30)
[2017-03-18] MEDS: HEPARIN SODIUM - SQ 10,000 UNITS/ML VIAL SQ SCH ×2 (08:53→20:16)
[2017-03-18] MEDS: TAMSULOSIN HCL 0.4 MG CAP PO SCH (08:53)
[2017-03-18] MEDS: PANTOPRAZOLE SOD 40 MG DELAYED RELEASE TAB PO SCH (08:53)
[2017-03-18] MEDS: DOCUSATE SODIUM 100 MG CAP PO SCH ×2 (08:54→20:16)
[2017-03-18] MEDS: INSULIN DETEMIR 100 UNITS/ML VIAL SQ SCH ×2 (08:54→20:21)
[2017-03-18] MEDS: SODIUM CHLORIDE 0.9% FLUSH 10 ML FLUSH IVF SCH (08:55)
[2017-03-18] MEDS: BENEPROTEIN POWDER 1 PACK G-TUBE SCH ×3 (08:55→17:44)
[2017-03-18] MEDS: SODIUM CHLORIDE 0.9% FLUSH 10 ML FLUSH IV FLUSH SCH ×2 (08:55→20:20)
--- NOTE | 2017-03-18 11:57 | HHI.PR ---
Subjective Remarks Follow-up for Tony's gangrene. The patient has no acute complaints today. Currently sitting in a chair eating lunch. He denies any pain, fever, chills. He states she's not able to walk very far. He is hoping to go to SNF soon. Objective Vitals Vital Signs Date Time Temp Pulse Resp B/P Pulse Ox O2 Delivery O2 Flow Rate FiO2 03/18/17 08:00 97.6 67 16 132/64 98 03/18/17 00:00 97.0 61 19 121/65 95 03/17/17 20:00 97.8 79 20 121/63 97 03/17/17 16:00 96.5 78 19 114/59 99 03/17/17 12:00 97.5 73 18 116/60 97 I/O 03/17/17 03/17/17 03/17/17 03/18/17 03/18/17 03/18/17 07:00 15:00 23:00 07:00 15:00 23:00 Intake Total 120 ml 825 ml 480 ml 240 ml Output Total 2100 ml 1500 ml 900 ml 3800 ml Balance -1980 ml -675 ml -420 ml -3560 ml Intake Oral 120 ml 825 ml 480 ml 240 ml Output Urine Total 1500 ml 1400 ml 600 ml 3000 ml Stool Total 600 ml 100 ml 300 ml 800 ml Result Diagram: 03/18/17 0502 03/18/17 0502 Objective Remarks GENERAL: Well-developed well-nourished. In no acute distress. SKIN: Warm and dry. No lesions noted. HEENT: Normocephalic. Pupils equal and round. Mucous membranes pink and moist. CARDIOVASCULAR: Regular rate and rhythm. No murmur appreciated. RESPIRATORY: No accessory muscle use. Clear to auscultation. Breath sounds equal bilaterally. GASTROINTESTINAL: Abdomen soft, non-tender, nondistended. Bowel sounds x4. Ostomy in place on the left. Perineal wound with clean dressing. MUSCULOSKELETAL: No obvious deformities. No clubbing or cyanosis. Trace edema. NEUROLOGICAL: Awake and alert. No focal neurological deficits. Moves upper and lower extremities spontaneously. Normal speech. PSYCHIATRIC: Appropriate mood and affect; insight and judgment normal. 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 Postop excision and debridement with washout of necrotizing fasciitis of the perineum, scrotum, and bilateral groin region secondary to Necrotizing fasciitis/Tony's Gangrene involving scrotum, perineum, bilateral groin regions. Blood cultures 2 02/18 viridans strep, pleomorphic gram -positive rods. Wound culture 02/19 Morganella and Proteus. S/p washout with debridement of perineal wound and dressing change 03/11. - continue antibiotics per ID. Changed to IV Zosyn - wound care per urology. Wound care consulted. Hypotension/ HTN Questionable history of atrial fibrillation, patient denies, previous EKG reviewed, PACs/PVCs Echocardiogram 2013 revealed EF 50-55%; No regional wall motion abnormality; Mildly dilated left atrium. -currently on multiple antihypertensive agents. BP is labile with intermittent episodes of hypotension. Adjust as needed. -Discontinued amlodipine. Holding lisinopril. Decreased metoprolol. -BP stable Acute respiratory failure S/p intubation and extubation, now on nasal cannula. - Bronchodilator therapy as needed. - incentive spirometry. - encourage ambulation. - wean oxygen as tolerated. 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 - continue ostomy care. Chronic pancreatitis Not in acute exacerbation. -Continue Creon 2 tablets 3 times a day. Diabetes mellitus S/p insulin drip. - Blood glucoses are controlled in the morning, but been elevated in the afternoons. - Increase a.m. Levemir to 22 units daily. Continue 10 units at night. - continue sliding scale insulin with Accu-Cheks. 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 - Recommended Maxorb 3 days/keep heels elevated off bed. Prophylaxis: SCD/heparin subcutaneous. Continue PT and OOB Discharge Planning Discharge planning likely to SNF after patient cleared by urology and ID. Case management consulted. Problem Qualifiers (1) Sepsis: Qualified Code: A41.9 - Sepsis, due to unspecified organism (2) Altered mental status: Qualified Code: R41.82 - Altered mental status, unspecified altered mental status type (3) Leucocytosis: Qualified Code: D72.829 - Leukocytosis, unspecified type (4) Diabetes type 1, uncontrolled: Qualified Code: E10.8 - Uncontrolled type 1 diabetes mellitus with complication [place] Mar 18, 2017 11:56 Radha Pimentel MD Mar 18, 2017 14:23
[2017-03-18 12:00] VITALS: BP 105/62; PULSE 98; RESP 17; TEMP 97.2; O2SAT 99
--- NOTE | 2017-03-18 13:32 | HHI.IDPN ---
Note Infectious Disease Note Patient without complaints. Afebrile. No chills. Sitting up in chair. Wound culture from 03/17 has no growth. PAST MEDICAL HISTORY 1. Diabetes mellitus. 2. Hypertension. 3. Atrial fibrillation. 4. History of megacolon. 5. Arthritis. 6. Tonsillectomy. 7. Colostomy. 8. Oral surgery. 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 ALLERGIES FLOMAX. ANTIBIOTICS: Pip/Tazobactam. OBJECTIVE: Vital Signs Date Time Temp Pulse Resp B/P Pulse Ox O2 Delivery O2 Flow Rate FiO2 03/18/17 12:00 97.2 98 17 105/62 99 03/18/17 08:00 97.6 67 16 132/64 98 03/18/17 00:00 97.0 61 19 121/65 95 03/17/17 20:00 97.8 79 20 121/63 97 03/17/17 16:00 96.5 78 19 114/59 99 03/17/17 03/17/17 03/18/17 15:00 23:00 07:00 Intake Total 825 ml 480 ml 240 ml Output Total 1500 ml 900 ml 3800 ml Balance -675 ml -420 ml -3560 ml Intake Oral 825 ml 480 ml 240 ml Output Urine Total 1400 ml 600 ml 3000 ml Stool Total 100 ml 300 ml 800 ml Laboratory Tests Test 03/18/17 05:02 White Blood Count 8.9 TH/MM3 Red Blood Count 3.78 MIL/MM3 Hemoglobin 11.5 GM/DL Hematocrit 33.3 % Mean Corpuscular Volume 88.3 FL Mean Corpuscular Hemoglobin 30.4 PG Mean Corpuscular Hemoglobin 34.4 % Concent Red Cell Distribution Width 16.9 % Platelet Count 229 TH/MM3 Mean Platelet Volume 8.3 FL Neutrophils (%) (Auto) 54.7 % Lymphocytes (%) (Auto) 30.5 % Monocytes (%) (Auto) 10.3 % Eosinophils (%) (Auto) 3.8 % Basophils (%) (Auto) 0.7 % Neutrophils # (Auto) 4.8 TH/MM3 Lymphocytes # (Auto) 2.7 TH/MM3 Monocytes # (Auto) 0.9 TH/MM3 Eosinophils # (Auto) 0.3 TH/MM3 Basophils # (Auto) 0.1 TH/MM3 CBC Comment DIFF FINAL Differential Comment Laboratory Tests Test 03/18/17 05:02 Sodium Level 136 MEQ/L Potassium Level 4.3 MEQ/L Chloride Level 100 MEQ/L Carbon Dioxide Level 29.2 MEQ/L Anion Gap 7 MEQ/L Blood Urea Nitrogen 30 MG/DL Creatinine 1.13 MG/DL Estimat Glomerular Filtration 65 ML/MIN Rate Random Glucose 115 MG/DL Calcium Level 8.5 MG/DL Microbiology Date/Time Procedure Status Source Growth 03/17/17 13:00 Gram Stain - Final Resulted Wound Scrotum 03/17/17 13:00 Wound Culture Resulted Wound Scrotum Pending Microbiology Date/Time Procedure Status Source Growth 02/18/17 22:35 Aerobic Blood Culture - Preliminary Resulted Blood Peripheral Streptococcus Species Pleomorphic Gram Positive Rods 02/18/17 22:35 Anaerobic Blood Culture - Final Resulted Viridans Streptococcus Grp 02/18/17 22:40 Aerobic Blood Culture - Preliminary Resulted Blood Peripheral NO GROWTH IN 3 DAYS 02/18/17 22:40 Anaerobic Blood Culture - Preliminary Resulted Viridans Streptococcus Grp 02/19/17 11:36 Gram Stain - Final Resulted Wound Other 02/19/17 11:36 Wound Culture - Preliminary Resulted Gram Negative Jean-Pierre 02/19/17 11:36 Acid Fast Stain - Final Resulted Wound Other NO ACID FAST BACILLI SEEN 02/19/17 11:36 Mycobacterial Culture Resulted Wound Other Pending 02/19/17 11:36 Fungal Smear - Final Resulted Wound Other NO FUNGAL ELEMENTS SEEN. 02/19/17 11:36 Fungal Culture Resulted Wound Other Pending 02/19/17 11:36 Gram Stain - Final Resulted Wound Other 02/19/17 11:36 Wound Culture - Preliminary Resulted Gram Negative Jean-Pierre 02/19/17 11:36 Acid Fast Stain - Final Resulted Wound Other NO ACID FAST BACILLI SEEN 02/19/17 11:36 Mycobacterial Culture Resulted Wound Other Pending 02/19/17 11:36 Fungal Smear - Final Resulted Wound Other NO FUNGAL ELEMENTS SEEN. 02/19/17 11:36 Fungal Culture Resulted Wound Other Pending PHYSICAL EXAMINATION GENERAL: Alert and oriented. HEENT: No icterus. Oropharynx has no visible lesions. NECK: No swelling or adenopathy. LUNGS: Breath sounds clear. HEART: Irregular rate and rhythm. No murmurs, rubs or gallops. ABDOMEN: Bowel sounds present, soft, no tenderness. : The scrotum/perineum is post debridement. Wound is clean with good granulation. EXTREMITIES: No clubbing, cyanosis or edema. SKIN: No rash. NEURO: Non focal. IMPRESSION 1. 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 Proteus and Morganella on 02/19. 3. Acute kidney disease. renal function improved. 4. Leukocytosis secondary to infection. WBC improved. RECOMMENDATIONS 1. Continue Zosyn IV until March 25, 2017. 2. Monitor WBC. Okay to transfer to SNF from ID standpoint. Order written on Infusion form. Marko Hahn MD Mar 18, 2017 13:32
--- NOTE | 2017-03-18 13:34 | HHI.FF ---
Infusion Therapy Location of Infusion Therapy: [facility] Infusion Therapy Order Patient Information Patient Weight 101.4 kg Diagnosis: (1) Fourniers gangrene Coded Allergies: Flu Vaccine (Verified Allergy, Severe, Anaphylaxis, 02/19/17) Administer Medication Piperacillin/Tazobactam 4.5 grams IV q 6 hours Stop Treatment: March 25, 2017 Additional Information Venous access: PICC Line Additional Instructions [x] Peripheral flush and dressing changes per protocol [x] Implanted port and central online marketing strategist: * Implanted port: 10 ml Normal Saline followed by 5 ml Heparin 100 units/ml Heparin flush after each use and monthly to maintain. [] May leave port accessed during therapy. [] May leave peripheral site accessed for duration of therapy. [x] If patient has SOB or respiratory distress, check oxygen saturation. If less than 90% or clinical signs of respiratory distress, administer oxygen at 2 L/min. via nasal cannula and notify physician. [x] Anaphylaxis/Reaction orders: * Stop infusion. * Keep IV line open with saline flush. * Notify physician. * Monitor vital signs every 15 minutes until symptoms resolve. * Check Oxygen saturation; Oxygen at 2 L/min. via nasal cannula if less than 90% or clinical signs of respiratory distress. * Administer diphenhydramine (Benadryl) 25 mg IV STAT, (unless patient has received as pre-med). May repeat once, if necessary. * Solu-Cortef 250 mg IVP over 30-60 seconds, use 100 mg vials for each dissolution. * Epinephrine (1mg/1 ml) 0.3 mg subcutaneously or IVP now with any signs of respiratory distress. * Check with physician for new additional pre-med orders if patient is re- challenged or re-treated. [x] May remove PICC line when treatment complete, after confirming with Physician. [x] If the patient is admitted to the hospital, the ED, or transferred via [facility] , complete transfer form including medication reconciliation order sheet. Laboratory Tests Weekly Labs: Creatinine Marko Hahn MD Mar 18, 2017 13:33
[2017-03-18 16:00] VITALS: BP 104/59; PULSE 72; RESP 18; TEMP 98.2; O2SAT 97
[2017-03-18 19:43] VITALS: BP 115/60; PULSE 78; RESP 16; TEMP 97.6; O2SAT 99
[2017-03-19] VITALS: BP 109/61; PULSE 76; RESP 16; TEMP 97.2; O2SAT 98
[2017-03-19] MEDS: LACTATED RINGER'S 1000 ML INJ 1,000 ML IV SCH (02:30)
[2017-03-19] MEDS: PIPERACIL-TAZO 4.5 GM PREMIX 100 ML IV SCH ×3 (03:13→12:54)
[2017-03-19] MEDS: INSULIN ASPART SUPPLEMENTAL SCALE SQ SCH ×3 (03:16→16:00)
[2017-03-19 08:00] VITALS: BP 130/66; PULSE 60; RESP 16; TEMP 95.5; O2SAT 98
[2017-03-19] MEDS: PANTOPRAZOLE SOD 40 MG DELAYED RELEASE TAB PO SCH (08:27)
[2017-03-19] MEDS: LIPASE/PROTEASE/AMYLASE (24,000/76,000/120,000) CAP PO SCH ×2 (08:27→12:54)
[2017-03-19] MEDS: METOPROLOL TARTRATE 25 MG TAB PO SCH (08:27)
[2017-03-19] MEDS: DOCUSATE SODIUM 100 MG CAP PO SCH (08:27)
[2017-03-19] MEDS: HEPARIN SODIUM - SQ 10,000 UNITS/ML VIAL SQ SCH (08:28)
[2017-03-19] MEDS: TAMSULOSIN HCL 0.4 MG CAP PO SCH (08:28)
[2017-03-19] MEDS: SODIUM CHLORIDE 0.9% FLUSH 10 ML FLUSH IV FLUSH SCH (08:28)
[2017-03-19] MEDS: BENEPROTEIN POWDER 1 PACK G-TUBE SCH ×2 (08:28→11:13)
[2017-03-19] MEDS: SODIUM CHLORIDE 0.9% FLUSH 10 ML FLUSH IVF SCH (08:34)
--- NOTE | 2017-03-19 08:36 | HHI.PR ---
Subjective Patient symptoms today Pt seen and examined. Wound culture with Gram Positive cocci. Probably Pseudomonas. Objective Vital Signs Vital Signs Date Time Temp Pulse Resp B/P Pulse Ox O2 Delivery O2 Flow Rate FiO2 03/19/17 00:00 97.2 76 16 109/61 98 03/18/17 19:43 97.6 78 16 115/60 99 03/18/17 16:00 98.2 72 18 104/59 97 03/18/17 12:00 97.2 98 17 105/62 99 Result Diagram: 03/18/17 0502 03/18/17 0502 Objective Remarks Abd:soft,nt,nd Wound: dressing intact and reinforced Lainez: urine clear 02/25 Abd:soft,nt,nd Wound: dressings intact; aneta in place Lainez: urine clear 02/27 Abd:soft,nt,nd Wound: VAC in place and draining Lainez: urine clear 03/04 Abd:soft,nt,nd Wound: Dressings intact Lainez: urine clear 03/05 Abd:soft,nt,nd Wound: Dressings intact Lainez: urine clear 03/07 Abd:soft,nt,nd Wound: Dressings intact Lainez: urine clear 03/08 Abd:soft,nt,nd Wound: Dressings intact Lainez: urine clear 03/10 Abd:soft,nt,nd Wound: Dressings intact Lainez: urine clear 03/11 Abd:soft,nt,nd Wound: clean and dry; packing changed at bedside with nurse 03/12 Abd:soft,nt,nd Wound: clean and dry; packing in place. 03/13 Abd:soft,nt,nd Wound: clean and dry; packing in place. Lainez with clear urine 03/14 Abd:soft,nt,nd Wound: clean and red tissue; no tissue Lainez with clear urine; breakdown of foreskin due to catheter pressure on foreskin 03/15 Abd:soft,nt,nd Wound: dressings intact Lainez with clear urine; keep taped to abdomen 03/17 Abd:soft,nt,nd Wound: clean and dry; wound culture sent Lainez with clear urine; keep taped to abdomen 03/19 Abd:soft,nt,nd Wound: clean with greenish exudate; dressing changed with vanco dressing Lainez changed out Medications and IVs Current Medications Medications (Trade) Dose Ordered Sig/Jeremias Route Start Time Stop Time Status Last Admin (NS Flush) 2 ml UNSCH PRN IV FLUSH 02/19/17 00:15 (NS Flush) 2 ml BID IV FLUSH 02/19/17 09:00 03/18/17 20:20 (Heparin Inj) 5,000 units Q12HR SQ 02/19/17 09:00 03/18/17 20:16 (Narcan Inj) 0.4 mg UNSCH PRN IV 02/19/17 00:15 (Tylenol) 650 mg Q6H PRN PO 02/19/17 15:00 03/06/17 23:48 (Zofran Inj) 4 mg Q6H PRN IV 02/19/17 15:00 03/02/17 20:39 (Colace) 100 mg BID PO 02/19/17 21:00 03/18/17 08:54 (NS Flush) DAILY IVF 02/20/17 09:00 03/17/17 09:01 (NS Flush) UNSCH PRN IVF 02/19/17 15:45 (Creon 24-76-120) 2 cap TID PO 02/19/17 18:00 03/18/17 17:30 (Brethine Inj) 1 mg UNSCH PRN SQ 02/19/17 21:00 (Beneprotein Powder) 1 pack TID G-TUBE 02/21/17 18:00 03/06/17 17:22 (Protonix) 40 mg DAILY PO 03/02/17 09:00 03/18/17 08:53 (Trandate Inj) 20 mg Q3H PRN IV PUSH 03/02/17 07:00 03/04/17 01:10 (D50w (Vial) Inj) 25 ml UNSCH PRN IV PUSH 03/02/17 07:15 (Glucagon Inj) 1 mg UNSCH PRN OTHER 03/02/17 07:15 Lisinopril 10 mg 10 mg BID PO 03/03/17 09:00 Hold 03/14/17 08:59 (Lr 1000 ml Inj) 1,000 ml @ 0 mls/hr Q24H IV 03/06/17 02:30 Temazepam 15 mg 15 mg HS PRN PO 03/10/17 21:00 03/14/17 23:21 (Zosyn 4.5 Gm Premix) 100 ml @ 200 mls/hr Q6H IV 03/14/17 14:00 03/19/17 03:13 (Lopressor) 25 mg Q12HR PO 03/15/17 21:00 03/18/17 08:53 Tamsulosin HCl 0.4 mg 0.4 mg DAILY PO 03/17/17 12:45 03/18/17 08:53 (Vancomycin Inj/ NS Irr Btl) 500 ml @ 0 mls/hr UNSCH IRRIGATION 03/17/17 16:00 (Levemir Inj) 22 units DAILY SQ 03/19/17 09:00 (Levemir Inj) 8 units HS SQ 03/19/17 21:00 Assessment and Plan Assessment and Plan 66 y.o male with necrotizing fascitis s/p debridement For washout in AM 02/25 66 y.o male with necrotizing fascitis s/p debridement with washout Plastics consult to help with closure For washout in AM 02/27 66 y.o male with necrotizing fascitis s/p debridement with washout and VAC placement Will change VAC tomorrow in OR; will attempt to close if possible NPO after MN 03/04 66 y.o male with necrotizing fascitis s/p debridement with washout; dressing change Unable to close wound as yet as not enough granulation tissue OR on for washout/dressing change/possible closure 03/05 66 y.o male with necrotizing fascitis s/p debridement with washout; dressing change For washout with dressing change/possible closure tomorrow NPO after MN 03/07 66 y.o male with necrotizing fascitis s/p debridement with washout; dressing change For washout with dressing change/possible closure tomorrow NPO after MN 03/08 66 y.o male with necrotizing fascitis s/p debridement with washout; dressing change Continue current Rx For washout with dressing change on Friday. 03/09 66 y.o male with necrotizing fascitis s/p debridement with washout; dressing change Continue current Rx For washout with dressing change on Friday. 03/11 66 y.o male with necrotizing fascitis s/p debridement with washout; dressing change Continue current Rx Will be able to now change dressing at bedside every 2-3 days with wet/dry dressings using Normal Saline 03/12 66 y.o male with necrotizing fascitis s/p debridement with washout; dressing change Continue current Rx Dressing changes at bedside every 2-3 days. 03/13 66 y.o male with necrotizing fascitis s/p debridement with washout; dressing change Continue current Rx Dressing change in AM Wound care consult 03/14 66 y.o male with necrotizing fascitis s/p debridement with washout; dressing change at bedside today Continue current Rx OOB/Ambulate D/c lainez 03/15 66 y.o male with necrotizing fascitis s/p debridement with washout; dressing change at bedside today Failed VT last night; lainez replaced OOB to chair Dressing change on Saturday 03/17 66 y.o male with necrotizing fascitis s/p debridement with washout; dressing change at bedside today Dressing changed at bedside Failed VT last week; continue flomax OOB to chair 03/19 66 y.o male with necrotizing fascitis s/p debridement with washout; dressing change at bedside today; should really have skin graft to close wound in future Dressing changed at bedside Failed VT last week; continue flomax Continue Rehab Norbert Cassidy DO Mar 19, 2017 08:36
[2017-03-19] MEDS ORDERED: INSULIN DETEMIR 100 UNITS/ML VIAL SQ SCH ×2 (09:00→21:00)
[2017-03-19 12:00] VITALS: BP 105/59; PULSE 70; RESP 17; TEMP 98.3; O2SAT 98
--- NOTE | 2017-03-19 12:24 | HHI.PR ---
Subjective Remarks Follow-up for Tony's gangrene and diabetes. The patient states that he had dressing changed today with urology, states he was told the wound smells bad. Discussed with RN, reports with positive culture, dressing changes with urology are now with vancomycin. Reportedly urology is hoping to clear infection so that plastic surgery can close the wound. The patient had lower blood glucose in the 90s this morning. Patient denies any signs of hypoglycemia including lightheadedness, sweating, nausea. Objective Vitals Vital Signs Date Time Temp Pulse Resp B/P Pulse Ox O2 Delivery O2 Flow Rate FiO2 03/19/17 12:00 98.3 70 17 105/59 98 03/19/17 08:00 95.5 60 16 130/66 98 03/19/17 00:00 97.2 76 16 109/61 98 03/18/17 19:43 97.6 78 16 115/60 99 03/18/17 16:00 98.2 72 18 104/59 97 I/O 03/18/17 03/18/17 03/18/17 03/19/17 03/19/17 03/19/17 07:00 15:00 23:00 07:00 15:00 23:00 Intake Total 240 ml 957 ml 737 ml 240 ml Output Total 3800 ml 1225 ml 700 ml 1650 ml Balance -3560 ml -268 ml 37 ml -1410 ml Intake Oral 240 ml 957 ml 737 ml 240 ml Output Urine Total 3000 ml 1050 ml 650 ml 1650 ml Stool Total 800 ml 175 ml 50 ml 0 ml Result Diagram: 03/18/17 0502 03/18/17 0502 Objective Remarks GENERAL: Well-developed well-nourished. In no acute distress. SKIN: Warm and dry. No lesions noted. HEENT: Normocephalic. Pupils equal and round. Mucous membranes pink and moist. CARDIOVASCULAR: Regular rate and rhythm. No murmur appreciated. RESPIRATORY: No accessory muscle use. Clear to auscultation. Breath sounds equal bilaterally. GASTROINTESTINAL: Abdomen soft, non-tender, nondistended. Bowel sounds x4. Ostomy in place on the left. Perineal wound with clean dressing. MUSCULOSKELETAL: No obvious deformities. No clubbing or cyanosis. Trace edema. NEUROLOGICAL: Awake and alert. No focal neurological deficits. Moves upper and lower extremities spontaneously. Normal speech. PSYCHIATRIC: Appropriate mood and affect; insight and judgment normal. 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 Postop excision and debridement with washout of necrotizing fasciitis of the perineum, scrotum, and bilateral groin region secondary to Necrotizing fasciitis/Tony's Gangrene involving scrotum, perineum, bilateral groin regions. Blood cultures 2 02/18 viridans strep, pleomorphic gram -positive rods. Wound culture 02/19 Morganella and Proteus. S/p washout with debridement of perineal wound and dressing change 03/11. - continue antibiotics per ID. Continue on IV Zosyn until 03/25. PICC line order placed. - wound care per urology. 03/[address] Cassidy. He states the patient can continue to have diligent wound care at SNF with dressing changes every other day with vancomycin solution. He has been using 89 carlos a rolls for packing. Hypotension/ HTN Questionable history of atrial fibrillation, patient denies, previous EKG reviewed, PACs/PVCs Echocardiogram 2013 revealed EF 50-55%; No regional wall motion abnormality; Mildly dilated left atrium. -currently on multiple antihypertensive agents. BP is labile with intermittent episodes of hypotension. Adjust as needed. -Discontinued amlodipine. Holding lisinopril. Decreased metoprolol. -BP stable Acute respiratory failure S/p intubation and extubation, now on nasal cannula. - Bronchodilator therapy as needed. - incentive spirometry. - encourage ambulation. - wean oxygen as tolerated. 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 - continue ostomy care. Chronic pancreatitis Not in acute exacerbation. -Continue Creon 2 tablets 3 times a day. Diabetes mellitus S/p insulin drip. - Blood glucoses are controlled in the morning, but been elevated in the afternoons. - Increased a.m. Levemir to 22 units daily with high afternoon blood glucoses. Decrease Levemir to 8 units at night with low a.m. blood glucoses. - continue sliding scale insulin with Accu-Cheks. 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 - Recommended Maxorb 3 days/keep heels elevated off bed. Prophylaxis: SCD/heparin subcutaneous. Continue PT and OOB Discharge Planning Discharge planning to SNF when arrangements made. Discussed with case management. Problem Qualifiers (1) Sepsis: Qualified Code: A41.9 - Sepsis, due to unspecified organism (2) Altered mental status: Qualified Code: R41.82 - Altered mental status, unspecified altered mental status type (3) Leucocytosis: Qualified Code: D72.829 - Leukocytosis, unspecified type (4) Diabetes type 1, uncontrolled: Qualified Code: E10.8 - Uncontrolled type 1 diabetes mellitus with complication [place] Mar 19, 2017 12:24 Radha Pimentel MD Mar 19, 2017 14:41
[2017-03-19] MEDS ORDERED: LEVEMIR SQ ×2 (12:38→12:39)
--- NOTE | 2017-03-19 14:11 | HHI.DS ---
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 The patient is unable to give any accurate information due to mentation. Information taken from medical records, nursing staff, documentation. It was indicated by ER documentation that the patient was found in a recliner laying in his yard. He lives at home alone. It was indicated that patient had been in a recliner for 3 days and unable to crawl or walk. It is indicated that the colostomy bag was off the patient and he was reportedly covered in feces. Patient indicates that his neighbors called the hospital and he was brought here for evaluation. Patient critically ill on presentation with significant findings. Workup in emergency department did indicate significant sepsis with leukocytosis, tachycardia, significant lower extremity swelling, scrotal swelling with granulation and cellulitis, altered mentation. CT scan was done of the abdomen and pelvis which was reviewed by Dr. Christensen first thing this morning. 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 Emergent phone call was placed to the on-call urologist. After discussing with the urologist, plans for stat transfer to the main hospital for emergent surgery. Patient has been started on empiric antibiotics include vancomycin, Zosyn. Patient will require ICU admission post surgery for continued management until stabilized. CBC/BMP: 03/18/17 0502 03/18/17 0502 Significant Findings Laboratory Tests Test 03/18/17 05:02 Red Blood Count 3.78 MIL/MM3 (4.50-5.90) Hemoglobin 11.5 GM/DL (13.0-17.0) Hematocrit 33.3 % (39.0-51.0) Monocytes (%) (Auto) 10.3 % (0.0-8.0) Blood Urea Nitrogen 30 MG/DL (7-18) Estimat Glomerular Filtration 65 ML/MIN (>89) Rate Random Glucose 115 MG/DL (74-106) Imaging Last Impressions Chest X-Ray 03/07/17 0000 Signed Impressions: Service Date/Time: Tuesday, March 07, 2017 12:33 - CONCLUSION: No acute disease. Lance Martinez MD Head CT 02/19/[id number] Signed Impressions: Service Date/Time: Sunday, February 19, 2017 00:30 - CONCLUSION: 1. No acute findings. No significant change from September 2016. Jermain Minaya MD Abdomen/Pelvis CT 02/19/172205 Signed Impressions: Service Date/Time: Sunday, February 19, 2017 00:36 - CONCLUSION: #1. 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 #2. Left lower quadrant colostomy. Fluid distention of blind-ending rectal pouch to 8.6 cm. Jermain Minaya MD PE at Discharge GENERAL: Well-developed well-nourished. NAD. SKIN: Warm and dry. No lesions noted. HEENT: Normocephalic. Pupils equal and round. Mucous membranes pink and moist. CARDIOVASCULAR: Regular rate and rhythm. No murmur appreciated. RESPIRATORY: No accessory muscle use. Clear to auscultation. Breath sounds equal bilaterally. GASTROINTESTINAL: Abdomen soft, non-tender, nondistended. Bowel sounds x4. Ostomy in place on the left. Perineal wound with clean dressing MUSCULOSKELETAL: No obvious deformities. No clubbing or cyanosis. Trace edema. NEUROLOGICAL: Awake and alert. No focal neurological deficits. Moves upper and lower extremities spontaneously. Normal speech. PSYCHIATRIC: Appropriate mood and affect; insight and judgment normal. Pt update on day of discharge Discussed plan of care with patient and nurse at bedside and case management. The patient states she is being discharged to SNF today. Hospital Course 67 Y/O male with: Who presented with severe sepsis and acute respiratory failure secondary to necrotizing fasciitis/Tony's gangrene. Necrotizing fasciitis/ Tony's Gangrene CT abdomen/pelvis revealed gas soft tissues of the perineum, scrotum and inguinal regions. Postop excision and debridement with washout of necrotizing fasciitis of the perineum, scrotum, and bilateral groin region secondary to Necrotizing fasciitis/Tony's Gangrene involving scrotum, perineum, bilateral groin regions. Blood cultures 2 02/18 viridans strep, pleomorphic gram -positive rods. Wound cultures 02/19 Morganella and Proteus. S/p washout with debridement of perineal wound and dressing change 03/11. - continue antibiotics per ID. Continue on IV Zosyn until 03/25. PICC line order placed. - wound care per urology, Dr. Cassidy. Maintain Ellis catheter, changed 03/19. Diligent wound care with dressing changes every other day with 89 Alfredo rolls for packing. So packing and vancomycin solution (Rx written). - Outpatient follow-up with plastic surgery for possible wound closure after infection has resolved. Diabetes mellitus - Increased a.m. Levemir to 22 units daily with high afternoon blood glucoses. Decreased Levemir to 8 units at night with low a.m. blood glucoses. - continue sliding scale insulin with Accu-Cheks. 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 Continue dressing changes and local wound care. Pt Condition on Discharge: Stable Discharge Disposition: Discharge to SNF Discharge Time: > 30 minutes Discharge Instructions DIET: Follow Instructions for: Heart Healthy Diet, Diabetic Diet Activities you can perform: Regular-No Restrictions Follow up Referrals: PCP Follow-up - 2-3 Days with Too Morin MD Plastic Surgery - 2 Weeks Urology - 1 Week with Norbert Cassidy DO New Medications: Insulin Detemir Inj (Levemir Inj) 1,000 unit/ 10 ML Vial 22 UNITS SQ DAILY Blood Sugar Management Days 30 INJECTION Insulin Detemir Inj (Levemir Inj) 1,000 unit/ 10 ML Vial 8 UNITS SQ HS Blood Sugar Management Days 30 INJECTION Continued Medications: Insulin Aspart Inj (Novolog Inj) 1,000 Unit/10 Ml Vial 1-9 UNITS SQ ACHS Max dose at bedtime:( )units; sugars less than 70,(0)units; sugars 150-199,(1) unit; sugars 200-249,(3) units; sugars 250-299,(5) units; sugars 300-349,(7) units; sugars greater than 349,(9) units Blood Sugar Management #10 Ref 0 ML Metoprolol Tartrate (Metoprolol Tartrate) 25 Mg Tab 25 MG PO Q12HR Blood Pressure Management #60 TAB Pancrelipase (Creon) 24,000-76,000-120,000 Units Cap 2 CAP PO TID pancreatic enzyme Days 30 CAP Pantoprazole (Pantoprazole) 40 Mg Tab 40 MG PO DAILY Reflux Days 30 TAB Discontinued Medications: Insulin Detemir Inj (Levemir Inj) 1,000 unit/ 10 ML Vial 12 UNITS SQ BID Diabetes Days 30 INJECTION Lisinopril (Lisinopril) 10 Mg Tab 10 MG PO DAILY Blood Pressure Management #30 TAB Temazepam (Restoril) 15 Mg Cap 15 MG PO HS PRN Insomnia #15 CAP Additional Information Written by [place], acting as scribe for Dr. Pimentel on 03/19/17 at 14:05. This note was transcribed by artie KERNS. I, Dr. Radha Pimentel personally performed the history, physical exam, and medical decision making; and confirmed the accuracy of the information in the transcribed note. Authenticated by Dr. Radha Pimentel on 03/19/17 at 14:05. . [place] Mar 19, 2017 14:11 Radha Pimentel MD Mar 19, 2017 14:42
--- NOTE | 2017-03-19 14:48 | HHI.IDPN ---
Note Infectious Disease Note Patient without complaints. Afebrile. No chills. Sitting up in chair. Wound culture from 03/17 has VRE. PAST MEDICAL HISTORY 1. Diabetes mellitus. 2. Hypertension. 3. Atrial fibrillation. 4. History of megacolon. 5. Arthritis. 6. Tonsillectomy. 7. Colostomy. 8. Oral surgery. 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 ALLERGIES FLOMAX. ANTIBIOTICS: Pip/Tazobactam. OBJECTIVE: Vital Signs Date Time Temp Pulse Resp B/P Pulse Ox O2 Delivery O2 Flow Rate FiO2 03/19/17 12:00 98.3 70 17 105/59 98 03/19/17 08:00 95.5 60 16 130/66 98 03/19/17 00:00 97.2 76 16 109/61 98 03/18/17 19:43 97.6 78 16 115/60 99 03/18/17 16:00 98.2 72 18 104/59 97 03/18/17 03/18/17 03/19/17 15:00 23:00 07:00 Intake Total 957 ml 737 ml 240 ml Output Total 1225 ml 700 ml 1650 ml Balance -268 ml 37 ml -1410 ml Intake Oral 957 ml 737 ml 240 ml Output Urine Total 1050 ml 650 ml 1650 ml Stool Total 175 ml 50 ml 0 ml Laboratory Tests Test 03/18/17 05:02 White Blood Count 8.9 TH/MM3 Red Blood Count 3.78 MIL/MM3 Hemoglobin 11.5 GM/DL Hematocrit 33.3 % Mean Corpuscular Volume 88.3 FL Mean Corpuscular Hemoglobin 30.4 PG Mean Corpuscular Hemoglobin 34.4 % Concent Red Cell Distribution Width 16.9 % Platelet Count 229 TH/MM3 Mean Platelet Volume 8.3 FL Neutrophils (%) (Auto) 54.7 % Lymphocytes (%) (Auto) 30.5 % Monocytes (%) (Auto) 10.3 % Eosinophils (%) (Auto) 3.8 % Basophils (%) (Auto) 0.7 % Neutrophils # (Auto) 4.8 TH/MM3 Lymphocytes # (Auto) 2.7 TH/MM3 Monocytes # (Auto) 0.9 TH/MM3 Eosinophils # (Auto) 0.3 TH/MM3 Basophils # (Auto) 0.1 TH/MM3 CBC Comment DIFF FINAL Differential Comment Laboratory Tests Test 03/18/17 05:02 Sodium Level 136 MEQ/L Potassium Level 4.3 MEQ/L Chloride Level 100 MEQ/L Carbon Dioxide Level 29.2 MEQ/L Anion Gap 7 MEQ/L Blood Urea Nitrogen 30 MG/DL Creatinine 1.13 MG/DL Estimat Glomerular Filtration 65 ML/MIN Rate Random Glucose 115 MG/DL Calcium Level 8.5 MG/DL Microbiology Date/Time Procedure Status Source Growth 03/17/17 13:00 Gram Stain - Final Complete Wound Scrotum 03/17/17 13:00 Wound Culture - Final Complete Enterococcus Faecium Vre Microbiology Date/Time Procedure Status Source Growth 02/18/17 22:35 Aerobic Blood Culture - Preliminary Resulted Blood Peripheral Streptococcus Species Pleomorphic Gram Positive Rods 02/18/17 22:35 Anaerobic Blood Culture - Final Resulted Viridans Streptococcus Grp 02/18/17 22:40 Aerobic Blood Culture - Preliminary Resulted Blood Peripheral NO GROWTH IN 3 DAYS 02/18/17 22:40 Anaerobic Blood Culture - Preliminary Resulted Viridans Streptococcus Grp 02/19/17 11:36 Gram Stain - Final Resulted Wound Other 02/19/17 11:36 Wound Culture - Preliminary Resulted Gram Negative Jean-Pierre 02/19/17 11:36 Acid Fast Stain - Final Resulted Wound Other NO ACID FAST BACILLI SEEN 02/19/17 11:36 Mycobacterial Culture Resulted Wound Other Pending 02/19/17 11:36 Fungal Smear - Final Resulted Wound Other NO FUNGAL ELEMENTS SEEN. 02/19/17 11:36 Fungal Culture Resulted Wound Other Pending 02/19/17 11:36 Gram Stain - Final Resulted Wound Other 02/19/17 11:36 Wound Culture - Preliminary Resulted Gram Negative Jean-Pierre 02/19/17 11:36 Acid Fast Stain - Final Resulted Wound Other NO ACID FAST BACILLI SEEN 02/19/17 11:36 Mycobacterial Culture Resulted Wound Other Pending 02/19/17 11:36 Fungal Smear - Final Resulted Wound Other NO FUNGAL ELEMENTS SEEN. 02/19/17 11:36 Fungal Culture Resulted Wound Other Pending PHYSICAL EXAMINATION GENERAL: Alert and oriented. HEENT: No icterus. Oropharynx has no visible lesions. NECK: No swelling or adenopathy. LUNGS: Breath sounds clear. HEART: Irregular rate and rhythm. No murmurs, rubs or gallops. ABDOMEN: Bowel sounds present, soft, no tenderness. : The scrotum/perineum is post debridement. Wound is clean. EXTREMITIES: No clubbing, cyanosis or edema. SKIN: No rash. NEURO: Non focal. IMPRESSION 1. 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 Proteus and Morganella on 02/19. New culture has VRE. 3. Acute kidney disease. renal function improved. 4. Leukocytosis secondary to infection. WBC improved. RECOMMENDATIONS 1. Stop Zosyn. 2. Start PO Zyvox 600mg PO bid x 10 days. Prescription on chart. Platelet count to be followed while on Zyvox. Okay to transfer to SNF from ID standpoint. Infusion order to be cancelled. Discussed with field nurse case manager. Marko Hahn MD Mar 19, 2017 14:48
[2017-03-19] MEDS ORDERED: ZYVO600T PO (14:51)
== END 2017-03-19 16:05 | DRG 853 ==
LOC: PHED 20:54 → PHEDA 02-19 00:15 → PHEDH 02-19 04:15 → HIMN 02-19 09:29 → HPAC 02-19 11:31 → N03B 02-19 11:48 → N03A 02-19 14:44 → N07A 03-05 18:20
PROVIDERS: ADMIT Hospitalist; ATTEND Hospitalist
PROC: 5A1955Z Respiratory Ventilation, Greater than 96 Consecutive Hours (ICD-10-PCS; 2017-02-19)
PROC: 0VBB0ZZ Excision of Left Testis, Open Approach (ICD-10-PCS; 2017-02-19)
PROC: 02HV33Z Insertion of Infusion Device into Superior Vena Cava, Percutaneous Approach (ICD-10-PCS; 2017-02-19)
PROC: B544ZZA Ultrasonography of Left Jugular Veins, Guidance (ICD-10-PCS; 2017-02-19)
PROC: 0JBB0ZZ Excision of Perineum Subcutaneous Tissue and Fascia, Open Approach (ICD-10-PCS; principal; 2017-02-19 10:58)
PROC: 03HY32Z Insertion of Monitoring Device into Upper Artery, Percutaneous Approach (ICD-10-PCS; 2017-02-20)
PROC: 0JDB0ZZ Extraction of Perineum Subcutaneous Tissue and Fascia, Open Approach (ICD-10-PCS; 2017-02-21)
PROC: 0JDB0ZZ Extraction of Perineum Subcutaneous Tissue and Fascia, Open Approach (ICD-10-PCS; 2017-02-24)
PROC: 0JBB0ZZ Excision of Perineum Subcutaneous Tissue and Fascia, Open Approach (ICD-10-PCS; 2017-02-26)
PROC: 0JDB0ZZ Extraction of Perineum Subcutaneous Tissue and Fascia, Open Approach (ICD-10-PCS; 2017-02-28)
PROC: 0JDB0ZZ Extraction of Perineum Subcutaneous Tissue and Fascia, Open Approach (ICD-10-PCS; 2017-03-03)
PROC: 0JDB0ZZ Extraction of Perineum Subcutaneous Tissue and Fascia, Open Approach (ICD-10-PCS; 2017-03-06)
PROC: 0JDB0ZZ Extraction of Perineum Subcutaneous Tissue and Fascia, Open Approach (ICD-10-PCS; 2017-03-08)
DX: A40.9 Streptococcal sepsis, unspecified (principal); M72.6 Necrotizing fasciitis; J96.00 Acute respiratory failure, unspecified whether with hypoxia or hypercapnia; J90 Pleural effusion, not elsewhere classified; G93.41 Metabolic encephalopathy; N17.9 Acute kidney failure, unspecified; E87.0 Hyperosmolality and hypernatremia; I48.91 Unspecified atrial fibrillation; E86.0 Dehydration; L03.115 Cellulitis of right lower limb; K86.1 Other chronic pancreatitis; L03.116 Cellulitis of left lower limb; L97.329 Non-pressure chronic ulcer of left ankle with unspecified severity; L97.319 Non-pressure chronic ulcer of right ankle with unspecified severity; R65.20 Severe sepsis without septic shock; E10.40 Type 1 diabetes mellitus with diabetic neuropathy, unspecified; I10 Essential (primary) hypertension; E10.621 Type 1 diabetes mellitus with foot ulcer; E10.65 Type 1 diabetes mellitus with hyperglycemia; N49.3 Fournier gangrene; E78.5 Hyperlipidemia, unspecified; M19.90 Unspecified osteoarthritis, unspecified site; E87.6 Hypokalemia; D64.9 Anemia, unspecified; E83.39 Other disorders of phosphorus metabolism; L97.519 Non-pressure chronic ulcer of other part of right foot with unspecified severity; I49.3 Ventricular premature depolarization; B95.2 Enterococcus as the cause of diseases classified elsewhere; G47.00 Insomnia, unspecified; B96.4 Proteus (mirabilis) (morganii) as the cause of diseases classified elsewhere; Z16.21 Resistance to vancomycin; Z79.4 Long term (current) use of insulin; Z89.422 Acquired absence of other left toe(s); Z89.421 Acquired absence of other right toe(s); Z93.3 Colostomy status
CPT/HCPCS: 36556; 36569; 36600; 70450; 71010; 74177; 76937; 80048; 80053; 80076; 80202; 81001; 82010; 82140; 82248; 82550; 82805; 82948; 83605; 83690; 83735; 83880; 84100; 84132; 84155; 84443; 84484; 85007; 85025; 85027; 85610; 85730; 86850; 86900; 86901; 86920; 87015; 87040; 87070; 87077; 87102; 87116; 87186; 87205; 87206; 87641; 93005; 94002; 94003; 94150; 94640; 94664; 96361; 96374; C9113; J0131; J0696; J1644; J1815; J1817; J1940; J2250; J2270; J2370; J2405; J2440; J2543; J2710; J3010; J3370; J3475; J3480; J7030; J7040; J7050; J7120; P9047; Q9967

== ENCOUNTER 2017-04-22 10:53 | Inpatient (IN) | payer OTHER, MEDICAID, MEDICARE ==
[~2017-04-22] VITALS: Ht 188 cm; Wt 92.9 kg
[~2017-04-22 10:53] MED LIST changes: -LISI10TA3 PO; -REST15CA PO; +ZYVO600T PO
[2017-04-22] MEDS ORDERED: SODIUM CHLOR 0.9% 1000 ML INJ 1,000 ML IV SCH (11:51)
[2017-04-22 11:54] VITALS: BP 124/54; PULSE 87; RESP 18; TEMP 98.1; O2SAT 100
[2017-04-22] MEDS ORDERED: SODIUM CHLORIDE 0.9% FLUSH 10 ML FLUSH IV FLUSH PRN ×2 (12:00→13:45)
[2017-04-22 12:06] VITALS: O2SAT 100
[2017-04-22 12:30] LABS: AUTOMATED NEUTROPHIL # 10.1 TH/MM3 (1.8-7.7); BASOPHIL # 0.1 TH/MM3 (0-0.2); BASOPHIL % 0.4 % (0.0-2.0); EOSINOPHIL % 0.3 % (0.0-4.0); HEMATOCRIT 34.4 % (39.0-51.0); HEMO FLAGS DIFF FINAL; LYMPH % 11.1 % (9.0-44.0); LYMPHOCYTE # 1.4 TH/MM3 (1.0-4.8); MEAN CELL VOLUME 87.3 FL (80.0-100.0); MEAN CORPUSCULAR HEMOGLOBIN 29.1 PG (27.0-34.0); MEAN CORPUSCULAR HGB CONC 33.4 % (32.0-36.0); MONO % 8.2 % (0.0-8.0); PLATELET COUNT 337 TH/MM3 (150-450); RED BLOOD COUNT 3.94 MIL/MM3 (4.50-5.90); RED CELL DISTRIBUTION WIDTH 14.4 % (11.6-17.2); WHITE BLOOD COUNT 12.6 TH/MM3 (4.0-11.0)
[2017-04-22 12:47] LABS: CHLORIDE 97 MEQ/L (98-107); POTASSIUM 3.3 MEQ/L (3.5-5.1); SODIUM (NA) 137 MEQ/L (136-145)
--- NOTE | 2017-04-22 12:49 | PD ---
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 [facility] reported that he was discharged from the shelter earlier than they had wanted but patient supposedly ran out of insurance. Patient reports that he arrived, April 17, 2017, he has not had any water since he was home. Reports that the water company turned off his water and he has not been able to get it turned back on. Reports that he has been borrowing water from his neighbors. Patient went to the store today to get help, reports that the police were called and patient was brought to the emergency room as he could not care for himself. Patient reports that his ostomy bag "exploded" and he was unable to clean it because he did not have any water. PFSH Past Medical History Arthritis: Yes Blood Disorders: No Anxiety: No Depression: No Heart Rhythm Problems: Yes (afib) Cancer: No High Cholesterol: No Cerebrovascular Accident: No Diabetes: Yes Patient Takes Glucophage: No Diminished Hearing: No Endocrine: Yes Gastrointestinal Disorders: Yes ( megacolon, colostomy) Genitourinary: No Immune Disorder: No Musculoskeletal: Yes (ARTHRITIS) Neurologic: Yes (NEUROPATHY BILAT LE) Psychiatric: No Reproductive: No Respiratory: No Immunizations Current: No Migraines: No Seizures: No Thyroid Disease: No Tetanus Vaccination: Unknown Influenza Vaccination: No ?: Not Past Surgical History Abdominal Surgery: Yes (colostomy) AICD: No Cardiac Surgery: No Ear Surgery: No Endocrine Surgery: No Eye Surgery: No Genitourinary Surgery: No Gynecologic Surgery: No Joint Replacement: No Oral Surgery: No Pacemaker: No Thoracic Surgery: No Tonsillectomy: Yes Other Surgery: Yes (TOES AMPUTATED) Social History Alcohol Use: No Tobacco Use: No Substance Use: No Allergies-Medications (Allergen,Severity, Reaction): Coded Allergies: Flu Vaccine (Verified Allergy, Severe, Anaphylaxis, 02/19/17) *MDRO Multi-Drug Resistant Organism (Verified Adverse Reaction, Unknown, ) 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 Reported Meds & Prescriptions Reported Meds & Active Scripts Active Zyvox (Linezolid) 600 Mg Tab 600 Mg PO Q12H PRN 10 Days Levemir Inj (Insulin Detemir) 1,000 unit/ 10 ML Vial 8 Units SQ HS 30 Days Levemir Inj (Insulin Detemir) 1,000 unit/ 10 ML Vial 22 Units SQ DAILY 30 Days Novolog Inj (Insulin Aspart) 1,000 Unit/10 Ml Vial 1-9 Units SQ ACHS Max dose at bedtime:( )units; sugars less than 70,(0)units; sugars 150-199,(1) unit; sugars 200-249,(3) units; sugars 250-299,(5) units; sugars 300-349,(7) units; sugars greater than 349,(9) units Pantoprazole (Pantoprazole Sodium) 40 Mg Tab 40 Mg PO DAILY 30 Days Creon (Amylase/Lipase/Protease) 24,000-76,000-120,000 Units Cap 2 Cap PO TID 30 Days Metoprolol Tartrate 25 Mg Tab 25 Mg PO Q12HR Review of Systems General / Constitutional: No: Fever Eyes: No: Visual changes HENT: No: Headaches Cardiovascular: No: Chest Pain or Discomfort Respiratory: No: Shortness of Breath Gastrointestinal: No: Abdominal Pain Genitourinary: No: Dysuria Musculoskeletal: No: Pain Skin: No Rash Neurologic: No: Weakness Psychiatric: No: Depression Endocrine: No: Polydipsia Hematologic/Lymphatic: No: Easy Bruising Physical Exam Narrative GENERAL: Patient covered in feces - unpoorly kempt SKIN: Focused skin assessment warm/dry. HEAD: Atraumatic. Normocephalic. EYES: Pupils equal and round. No scleral icterus. No injection or drainage. ENT: No nasal bleeding or discharge. Mucous membranes pink and moist. NECK: Trachea midline. No JVD. CARDIOVASCULAR: Regular rate and rhythm. No murmur appreciated. RESPIRATORY: No accessory muscle use. Clear to auscultation. Breath sounds equal bilaterally. GASTROINTESTINAL: Abdomen soft, non-tender, nondistended. Hepatic and splenic margins not palpable. : patient with healing scrotal skin, testicles are descended b/l, no obvious infection or drainage MUSCULOSKELETAL: No obvious deformities. No clubbing. No cyanosis. No edema. NEUROLOGICAL: Awake and alert. No obvious cranial nerve deficits. Motor grossly within normal limits. Normal speech. PSYCHIATRIC: Appropriate mood and affect; insight and judgment normal. Data Data Last Documented VS Vital Signs Date Time Temp Pulse Resp B/P Pulse Ox O2 Delivery O2 Flow Rate FiO2 04/22/17 13:14 87 18 128/70 100 04/22/17 11:54 98.1 Orders Complete Blood Count With Diff (04/22/17 11:51) Comprehensive Metabolic Panel (04/22/17 11:51) Prothrombin Time / Inr (Pt) (04/22/17 11:51) Act Partial Throm Time (Ptt) (04/22/17 11:51) Urinalysis - C+S If Indicated (04/22/17 11:51) Iv Access Insert/Monitor (04/22/17 11:51) Ecg Monitoring (04/22/17 11:51) Oximetry (04/22/17 11:51) Sodium Chlor 0.9% 1000 Ml Inj (Ns 1000 M (04/22/17 11:51) Sodium Chloride 0.9% Flush (Ns Flush) (04/22/17 12:00) Insulin Human Regular Inj (Novolin R Inj (04/22/17 13:00) Potassium Chloride (Kcl) (04/22/17 13:00) Admit Order (Ed Use Only) (04/22/17 13:35) Insulin Detemir Inj (Levemir Inj) (04/22/17 13:45) Metoprolol Tartrate (Lopressor) (04/22/17 21:00) Kjhrez-Ptqdyw-Tmrd 24-76-120 (Creon 24-7 (04/22/17 18:00) Pantoprazole (Protonix) (04/23/17 09:00) Chest, Single Ap (04/22/17 ) Place In Observation (04/22/17 ) Vital Signs (Adult) Q4H (04/22/17 13:38) Activity Oob With Assistance (04/22/17 13:38) Bedside Glucose KEN.AC&HS (04/22/17 13:38) Intake + Output KEN.QSHIFT (04/22/17 13:38) Diet 1800 Ada Cons Carb (04/22/17 Lunch) Sodium Chloride 0.9% Flush (Ns Flush) (04/22/17 13:45) Sodium Chloride 0.9% Flush (Ns Flush) (04/22/17 21:00) Acetaminophen (Tylenol) (04/22/17 13:45) Ondansetron Inj (Zofran Inj) (04/22/17 13:45) Basic Metabolic Panel (Bmp) (04/23/17 06:00) Complete Blood Count With Diff (04/23/17 06:00) Pt Request For Service (04/22/17 13:38) Ot Request For Service (04/22/17 13:38) Case Management Consult (04/22/17 13:38) Scd Bilateral/Knee High KEN.BID (04/22/17 13:38) Andrew Bilateral/Knee High KEN.QSHIFT (04/22/17 13:38) Acetaminophen (Tylenol) (04/22/17 13:45) Oxycodone (Roxicodone) (04/22/17 13:45) Naloxone Inj (Narcan Inj) (04/22/17 13:45) Labs Laboratory Tests Test 04/22/17 04/22/17 12:15 13:25 White Blood Count 12.6 TH/MM3 Red Blood Count 3.94 MIL/MM3 Hemoglobin 11.5 GM/DL Hematocrit 34.4 % Mean Corpuscular Volume 87.3 FL Mean Corpuscular Hemoglobin 29.1 PG Mean Corpuscular Hemoglobin 33.4 % Concent Red Cell Distribution Width 14.4 % Platelet Count 337 TH/MM3 Mean Platelet Volume 7.3 FL Neutrophils (%) (Auto) 80.0 % Lymphocytes (%) (Auto) 11.1 % Monocytes (%) (Auto) 8.2 % Eosinophils (%) (Auto) 0.3 % Basophils (%) (Auto) 0.4 % Neutrophils # (Auto) 10.1 TH/MM3 Lymphocytes # (Auto) 1.4 TH/MM3 Monocytes # (Auto) 1.0 TH/MM3 Eosinophils # (Auto) 0.0 TH/MM3 Basophils # (Auto) 0.1 TH/MM3 CBC Comment DIFF FINAL Differential Comment Prothrombin Time 11.8 SEC Prothromb Time International 1.1 RATIO Ratio Activated Partial 27.4 SEC Thromboplast Time Sodium Level 137 MEQ/L Potassium Level 3.3 MEQ/L Chloride Level 97 MEQ/L Carbon Dioxide Level 34.1 MEQ/L Anion Gap 6 MEQ/L Blood Urea Nitrogen 9 MG/DL Creatinine 0.98 MG/DL Estimat Glomerular Filtration 76 ML/MIN Rate Random Glucose 231 MG/DL Calcium Level 8.5 MG/DL Total Bilirubin 0.7 MG/DL Aspartate Amino Transf 21 U/L (AST/SGOT) Alanine Aminotransferase 26 U/L (ALT/SGPT) Alkaline Phosphatase 66 U/L Total Protein 7.2 GM/DL Albumin 2.7 GM/DL Urine Collection Type CLEAN CATCH Urine Color STRAW Urine Turbidity CLEAR Urine pH 6.0 Urine Specific Newton 1.005 Urine Protein NEG mg/dL Urine Glucose (UA) NEG mg/dL Urine Ketones NEG mg/dL Urine Occult Blood NEG Urine Nitrite POS Urine Bilirubin NEG Urine Leukocyte Esterase TRACE Urine RBC 0-3 /hpf Urine WBC 0-2 /hpf Microscopic Urinalysis Comment CULTURE INDICATED MDM Medical Decision Making Medical Screen Exam Complete: Yes Emergency Medical Condition: Yes Interpretation(s) Vital Signs Date Time Temp Pulse Resp B/P Pulse Ox O2 Delivery O2 Flow Rate FiO2 04/22/17 12:06 100 04/22/17 11:54 98.1 87 18 124/54 100 Differential Diagnosis Failure to thrive Narrative Course Patient is a 67-year-old male who was sent to the ER as he was covered in feces and was just discharged from the [place] after being hospitalized and treated for Founier's Gangrene. Patient has not had working water in his house since his discharge. He was supposed to have home health aid come to his home and help him - reports that no one has come to his home after his discharge from the [place]. Patient presents to ER for failure to thrive as outpatient. store operations manager reviewing case - patient will be an unsafe discharge as he doesn't have working water at his home and he is unable to care for himself. Patient will require admission for placement. Adult protective services were called to review patient's care. [place] was called - reports that patient was discharged prematurely due to insurance reasons. Home care was supposed to be set up at discharge. Vital Signs Date Time Temp Pulse Resp B/P Pulse Ox O2 Delivery O2 Flow Rate FiO2 04/22/17 13:14 87 18 128/70 100 04/22/17 12:06 100 04/22/17 11:54 98.1 87 18 124/54 100 Laboratory Tests Test 04/22/17 12:15 White Blood Count 12.6 TH/MM3 (4.0-11.0) Red Blood Count 3.94 MIL/MM3 (4.50-5.90) Hemoglobin 11.5 GM/DL (13.0-17.0) Hematocrit 34.4 % (39.0-51.0) Mean Corpuscular Volume 87.3 FL (80.0-100.0) Mean Corpuscular Hemoglobin 29.1 PG (27.0-34.0) Mean Corpuscular Hemoglobin 33.4 % Concent (32.0-36.0) Red Cell Distribution Width 14.4 % (11.6-17.2) Platelet Count 337 TH/MM3 (150-450) Mean Platelet Volume 7.3 FL (7.0-11.0) Neutrophils (%) (Auto) 80.0 % (16.0-70.0) Lymphocytes (%) (Auto) 11.1 % (9.0-44.0) Monocytes (%) (Auto) 8.2 % (0.0-8.0) Eosinophils (%) (Auto) 0.3 % (0.0-4.0) Basophils (%) (Auto) 0.4 % (0.0-2.0) Neutrophils # (Auto) 10.1 TH/MM3 (1.8-7.7) Lymphocytes # (Auto) 1.4 TH/MM3 (1.0-4.8) Monocytes # (Auto) 1.0 TH/MM3 (0-0.9) Eosinophils # (Auto) 0.0 TH/MM3 (0-0.4) Basophils # (Auto) 0.1 TH/MM3 (0-0.2) CBC Comment DIFF FINAL Differential Comment Prothrombin Time 11.8 SEC (9.8-11.6) Prothromb Time International 1.1 RATIO Ratio Activated Partial 27.4 SEC Thromboplast Time (24.3-30.1) Sodium Level 137 MEQ/L (136-145) Potassium Level 3.3 MEQ/L (3.5-5.1) Chloride Level 97 MEQ/L (98-107) Carbon Dioxide Level 34.1 MEQ/L (21.0-32.0) Anion Gap 6 MEQ/L (5-15) Blood Urea Nitrogen 9 MG/DL (7-18) Creatinine 0.98 MG/DL (0.60-1.30) Estimat Glomerular Filtration 76 ML/MIN (>89) Rate Random Glucose 231 MG/DL (74-106) Calcium Level 8.5 MG/DL (8.5-10.1) Total Bilirubin 0.7 MG/DL (0.2-1.0) Aspartate Amino Transf 21 U/L (15-37) (AST/SGOT) Alanine Aminotransferase 26 U/L (12-78) (ALT/SGPT) Alkaline Phosphatase 66 U/L (45-117) Total Protein 7.2 GM/DL (6.4-8.2) Albumin 2.7 GM/DL (3.4-5.0) Labs reviewed. patient will require admission for failure to thrive and for placement. Case reviewed with Dr. Marie who accepts pt to service Diagnosis Primary Impression: Failure to thrive in adult Additional Impressions: Hyperglycemia Leukocytosis Qualified Code: D72.829 - Leukocytosis, unspecified type UTI (urinary tract infection) Admitting Information Admitting Physician Requests: Observation Nelly Andrews DO April 22, 2017 12:49
[2017-04-22 12:52] LABS: ANION GAP 6 MEQ/L (5-15); BICARBONATE 34.1 MEQ/L (21.0-32.0); BLOOD UREA NITROGEN 9 MG/DL (7-18)
[2017-04-22 12:55] LABS: ALT (GPT) 26 U/L (12-78); AST (GOT) 21 U/L (15-37); GLOMERULAR FILTRATION RATE 76 ML/MIN (>89)
[2017-04-22 12:56] LABS: TOTAL BILIRUBIN ADULT 0.7 MG/DL (0.2-1.0)
[2017-04-22 12:57] LABS: APTT (PATIENT) 27.4 SEC (24.3-30.1); INTERNATIONAL NORMALIZED RATIO 1.1 RATIO; PROTHROMBIN TIME - PATIENT 11.8 SEC (9.8-11.6)
[2017-04-22 12:58] LABS: ALKALINE PHOSPHATASE 66 U/L (45-117)
[2017-04-22] MEDS ORDERED: POTASSIUM CHLORIDE 10 MEQ CONTROLLED RELEASE TAB PO ONE (13:00)
[2017-04-22] MEDS ORDERED: INSULIN HUMAN REGULAR 1,000 UNITS/10 ML VIAL SQ ONE (13:00)
[2017-04-22 13:14] VITALS: BP 128/70; PULSE 87; RESP 18; O2SAT 100
[2017-04-22 13:37] LABS: BLOOD, URINE NEG (NEG); GLUCOSE,URINE NEG (NEG); KETONE, URINE NEG (NEG)
[2017-04-22 13:39] LABS: NITRITE,URINE POS (NEG)
[2017-04-22 13:41] LABS: METHOD OF COLLECTION CLEAN CATCH; URINE COLOR STRAW (YELLW/STRAW)
[2017-04-22] MEDS ORDERED: ONDANSETRON HCL 4 MG/2 ML VIAL IVP PRN (13:45)
[2017-04-22] MEDS ORDERED: NALOXONE HCL 0.4 MG/ML AMP IV PRN (13:45)
[2017-04-22] MEDS ORDERED: ACETAMINOPHEN 325 MG TAB PO PRN (13:45)
[2017-04-22 13:47] LABS: COMMENT (UR) CULTURE INDICATED; CULTURE IF INDICATED CULTURE INDICATED; RBC, URINE 0-3 /hpf (0-3); WBC, URINE 0-2 /hpf (0-5)
--- NOTE | 2017-04-22 13:53 | HHI.HP ---
[facility] [place] Primary Care Physician No Primary Care Physician Admission Diagnosis Failure to thrive Diagnoses: Chief Complaint: Ostomy difficulties, brought in by police Travel History International Travel<30 Days: No Contact w/Intl Traveler <30 Da: No Traveled to Known Affected Are: No History of Present Illness The patient is a 67-year-old male with past medical history of diabetes who was recently in the hospital for treatment of Otny gangrene who is presenting to the hospital after being brought in by police. The patient had a prolonged course of treatment for Tony gangrene for which he received many debridements and antibiotics per infectious disease and was then [facility] to a [facility] facility. The patient completed a course of oral antibiotics there and was discharged back home a month later. Once the patient returned home he discovered that he had no running water in his house. He said that he was in talks with the [employer] and that the water should not have been shut off. He was borrowing water from neighbors. His ostomy bag exploded and he is unsure how that happened. He was unable to clean it without running water and went to the store. The police were called in and brought the patient to the hospital. In the emergency department the patient was found to have feces everywhere covering most of his genitals and scrotum. The patient has no acute complaints at this time. Review of Systems ROS Limitations: Poor Historian Except as stated in HPI: all other systems reviewed are Neg Past Family Social History Past Medical History Diabetes mellitus Diabetes neuropathy with numbness in the lower extremities Arthritis Hypertension Atrial fibrillation History of megacolon Tony gangrene Past Surgical History Patient had right second and fifth toe amputation, and left second toe amputation Tonsillectomy Oral surgery Colostomy Surgery for Tony gangrene Allergies: Coded Allergies: Flu Vaccine (Verified Allergy, Severe, Anaphylaxis, 02/19/17) *MDRO Multi-Drug Resistant Organism (Verified Adverse Reaction, Unknown, ) 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 Active Ordered Medications Current Medications Medications (Trade) Dose Ordered Sig/Jeremias Route Start Time Stop Time Status Last Admin (NS Flush) 2 ml UNSCH PRN IV FLUSH 04/22/17 12:00 (Levemir Inj) 22 units DAILY SQ 04/22/17 13:45 UNV (Lopressor) 25 mg Q12HR PO 04/22/17 21:00 UNV (Creon 24-76-120) 2 cap TID PO 04/22/17 18:00 UNV (Protonix) 40 mg DAILY PO 04/23/17 09:00 UNV (NS Flush) 2 ml UNSCH PRN IV FLUSH 04/22/17 13:45 UNV (NS Flush) 2 ml BID IV FLUSH 04/22/17 21:00 UNV (Tylenol) 650 mg Q4H PRN PO 04/22/17 13:45 UNV (Zofran Inj) 4 mg Q6H PRN IVP 04/22/17 13:45 UNV (Tylenol) 650 mg Q6H PRN PO 04/22/17 13:45 UNV (Roxicodone) 5 mg Q4H PRN PO 04/22/17 13:45 UNV (Narcan Inj) 0.4 mg UNSCH PRN IV 04/22/17 13:45 UNV Family History DM Social History The patient denies substance use. Physical Exam Vital Signs Vital Signs Date Time Temp Pulse Resp B/P Pulse Ox O2 Delivery O2 Flow Rate FiO2 04/22/17 13:14 87 18 128/70 100 04/22/17 12:06 100 04/22/17 11:54 98.1 87 18 124/54 100 Physical Exam GENERAL: Well-developed well-nourished. In no acute distress. SKIN: Warm and dry. No lesions noted. HEENT: Normocephalic. Pupils equal and round. Mucous membranes pink and moist. CARDIOVASCULAR: Regular rate and rhythm. No murmur appreciated. RESPIRATORY: No accessory muscle use. Clear to auscultation. Breath sounds equal bilaterally. GASTROINTESTINAL: Abdomen soft, non-tender, nondistended. Bowel sounds x4. Ostomy in place on the left. : Wound on right side of groin appears clean and not infected. MUSCULOSKELETAL: No obvious deformities. No clubbing or cyanosis. No edema. NEUROLOGICAL: Awake and alert. No focal neurological deficits. Moves upper and lower extremities spontaneously. Normal speech. PSYCHIATRIC: Mood and affect appropriate. Laboratory Laboratory Tests Test 04/22/17 04/22/17 12:15 13:25 White Blood Count 12.6 Red Blood Count 3.94 Hemoglobin 11.5 Hematocrit 34.4 Mean Corpuscular Volume 87.3 Mean Corpuscular Hemoglobin 29.1 Mean Corpuscular Hemoglobin 33.4 Concent Red Cell Distribution Width 14.4 Platelet Count 337 Mean Platelet Volume 7.3 Neutrophils (%) (Auto) 80.0 Lymphocytes (%) (Auto) 11.1 Monocytes (%) (Auto) 8.2 Eosinophils (%) (Auto) 0.3 Basophils (%) (Auto) 0.4 Neutrophils # (Auto) 10.1 Lymphocytes # (Auto) 1.4 Monocytes # (Auto) 1.0 Eosinophils # (Auto) 0.0 Basophils # (Auto) 0.1 CBC Comment DIFF FINAL Differential Comment Prothrombin Time 11.8 Prothromb Time International 1.1 Ratio Activated Partial 27.4 Thromboplast Time Sodium Level 137 Potassium Level 3.3 Chloride Level 97 Carbon Dioxide Level 34.1 Anion Gap 6 Blood Urea Nitrogen 9 Creatinine 0.98 Estimat Glomerular Filtration 76 Rate Random Glucose 231 Calcium Level 8.5 Total Bilirubin 0.7 Aspartate Amino Transf 21 (AST/SGOT) Alanine Aminotransferase 26 (ALT/SGPT) Alkaline Phosphatase 66 Total Protein 7.2 Albumin 2.7 Urine pH 6.0 Urine Protein NEG Urine Glucose (UA) NEG Urine Ketones NEG Urine Occult Blood NEG Urine Nitrite POS Urine Bilirubin NEG Urine Leukocyte Esterase TRACE Result Diagram: 04/22/17 1215 04/22/17 1215 Imaging Last Impressions Chest X-Ray 04/22/17 0000 Signed Impressions: Service Date/Time: Saturday, April 22, 2017 13:57 - CONCLUSION: No acute cardiomegaly disease. Sudhir Velez MD Assessment and Plan Assessment and Plan Inability to care for self The patient was discharged home from the jail facility and did not have running water. He had a hard time taking care of himself and was brought in to the hospital by police. - Case management consult requested. - Physical therapy/ occupational therapy. - Supportive care. Necrotizing fasciitis/ Tony's Gangrene Treated for during recent hospitalization. S/p excision and debridement with washout of necrotizing fasciitis of the perineum, scrotum, and bilateral groin region. He had bacteremia and multiple organisms growing from the wound. He completed a course of antibiotics per ID. The wound appears healed at this time. - wound care nurse consult. 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 The patient's ostomy bag exploded prior to arrival in the emergency department and reports indicate that he was covered in feces. - continue ostomy care. - Ostomy nurse consult requested. UTI UA mildly positive, likely s/t colostomy explosion. He has leukocytosis. - continue ceftriaxone and monitor urine culture. Diabetes mellitus Glucose elevated in the ED. - Continue daily Levemir. Adjust as needed. - sliding scale insulin with Accu-Cheks. Right second/fifth toe amputation/ Left second amputation/ Diabetic foot ulcers Wound care evaluated the pt on last admit and recommended Maxorb 3 days/keep heels elevated off bed. - wound care nurse consult requested. Hypokalemia The pt received repletion in the ED. - monitor and replete as needed. Prophylaxis: SCDs Discussed Condition With Pt, Jerome Christianson DO April 22, 2017 13:53
[2017-04-22] MEDS ORDERED: INSULIN DETEMIR 100 UNITS/ML VIAL SQ SCH (14:00)
[2017-04-22] MEDS ORDERED: cefTRIAXone INJ 1,000 MG in SODIUM CHLORIDE 0.9% INJ 100 ML IV ONE (14:00)
--- NOTE | 2017-04-22 14:10 | RADHPO ---
EXAM DATE/TIME: 04/22/2017 13:57 [facility] COMPARISON: CHEST SINGLE AP, March 07, 2017, 12:33. INDICATIONS : Weakness. MEDICAL HISTORY : Diabetes mellitus type II. afib, neuropathy SURGICAL HISTORY : Colostomy. ENCOUNTER: Initial ACUITY: 1 day PAIN SCORE: 0/10 LOCATION: Bilateral chest FINDINGS: Patient is slightly rotated. Lungs are clear without significant focal pleural or parenchymal opaciti es. The cardiomediastinal contours are unremarkable. Osseous structures are intact. CONCLUSION: No acute cardiomegaly disease. Sudhir Velez MD on April 22, 2017 at 14:07 Board Certified Radiologist. This report was verified electronically.
[2017-04-22 16:00] VITALS: BP 141/73; PULSE 75; RESP 18; TEMP 96.5; O2SAT 100
[2017-04-22] MEDS ORDERED: INSULIN ASPART SUPPLEMENTAL SCALE SQ SCH (16:00)
[2017-04-22] MEDS: LIPASE/PROTEASE/AMYLASE (24,000/76,000/120,000) CAP PO SCH (16:58)
[2017-04-22] MEDS ORDERED: INSULIN DETEMIR 100 UNITS/ML VIAL SQ ONE (17:00)
[2017-04-22] MEDS ORDERED: GLUCAGON 1 MG/ML VIAL OTHER PRN (19:15)
[2017-04-22] MEDS ORDERED: DEXTROSE 50% IN WATER 50 ML VIAL(D50) IV PRN (19:15)
[2017-04-22 20:00] VITALS: BP 114/62; PULSE 97; RESP 20; TEMP 97.8; O2SAT 100
[2017-04-22] MEDS: INSULIN ASPART SUPPLEMENTAL SCALE SQ SCH (21:00)
[2017-04-22 22:33] LABS: HEMOGLOBIN A1a 1.1 %; HEMOGLOBIN A1b 1.6 %; HEMOGLOBIN Ao 84.3 %; HEMOGLOBIN LA1C 2.4 %; HEMOGLOBIN P3 5.7 %
[2017-04-22] MEDS: METOPROLOL TARTRATE 25 MG TAB PO SCH (23:05)
[2017-04-22] MEDS: SODIUM CHLORIDE 0.9% FLUSH 10 ML FLUSH IV FLUSH SCH (23:05)
[2017-04-23] VITALS: BP 111/58; PULSE 76; RESP 18; TEMP 97.9; O2SAT 98
[2017-04-23 04:00] VITALS: BP 135/75; PULSE 67; RESP 20; TEMP 96; O2SAT 98
[2017-04-23] MEDS: INSULIN ASPART SUPPLEMENTAL SCALE SQ SCH ×4 (06:58→21:00)
[2017-04-23 08:00] VITALS: BP 140/75; PULSE 75; RESP 20; TEMP 98.6; O2SAT 100
[2017-04-23] MEDS: METOPROLOL TARTRATE 25 MG TAB PO SCH ×2 (08:17→21:25)
[2017-04-23] MEDS: PANTOPRAZOLE SOD 40 MG DELAYED RELEASE TAB PO SCH (08:17)
[2017-04-23] MEDS: LIPASE/PROTEASE/AMYLASE (24,000/76,000/120,000) CAP PO SCH ×3 (08:17→17:10)
[2017-04-23] MEDS: SODIUM CHLORIDE 0.9% FLUSH 10 ML FLUSH IV FLUSH SCH ×2 (08:17→21:25)
[2017-04-23] MEDS ORDERED: cefTRIAXone INJ 1,000 MG in SODIUM CHLORIDE 0.9% INJ 100 ML IV SCH (09:00)
[2017-04-23] MEDS ORDERED: INSULIN DETEMIR 100 UNITS/ML VIAL SQ SCH (09:00)
[2017-04-23 09:03] LABS: BASOPHIL % 0.3 % (0.0-2.0); EOSINOPHIL # 0.2 TH/MM3 (0-0.4); EOSINOPHIL % 2.3 % (0.0-4.0); HEMO FLAGS DIFF FINAL; LYMPH % 17.9 % (9.0-44.0); LYMPHOCYTE # 1.5 TH/MM3 (1.0-4.8); MEAN CELL VOLUME 89.4 FL (80.0-100.0); MEAN CORPUSCULAR HEMOGLOBIN 29.2 PG (27.0-34.0); MEAN CORPUSCULAR HGB CONC 32.7 % (32.0-36.0); MONO % 7.7 % (0.0-8.0); NEUT % 71.8 % (16.0-70.0); PLATELET COUNT 275 TH/MM3 (150-450); RED BLOOD COUNT 3.81 MIL/MM3 (4.50-5.90); RED CELL DISTRIBUTION WIDTH 15.4 % (11.6-17.2); WHITE BLOOD COUNT 8.3 TH/MM3 (4.0-11.0)
[2017-04-23 09:57] LABS: POTASSIUM 3.1 MEQ/L (3.5-5.1)
[2017-04-23 10:08] LABS: BICARBONATE 33.4 MEQ/L (21.0-32.0)
[2017-04-23 10:10] LABS: MAGNESIUM 1.8 MG/DL (1.5-2.5)
--- NOTE | 2017-04-23 10:17 | HHI.PR ---
Subjective Remarks Follow-up UTI. Patient states his Ellis was changed in the emergency department. Denies any pain. He has an open wound in the scrotal and perineal areas with a history of Tony's gangrene status post debridement and washout by Dr. Norbert Cassidy. Seen with RN and edge drummer. Objective Vitals Vital Signs Date Time Temp Pulse Resp B/P Pulse Ox O2 Delivery O2 Flow Rate FiO2 04/23/17 08:00 98.6 75 20 140/75 100 04/23/17 04:00 96.0 67 20 135/75 98 04/23/17 00:00 97.9 76 18 111/58 98 04/22/17 20:00 97.8 97 20 114/62 100 04/22/17 16:00 96.5 75 18 141/73 100 04/22/17 13:14 87 18 128/70 100 04/22/17 12:06 100 04/22/17 11:54 98.1 87 18 124/54 100 I/O 04/22/17 04/22/17 04/22/17 04/23/17 04/23/17 04/23/17 07:00 15:00 23:00 07:00 15:00 23:00 Intake Total 720 ml 240 ml 300 ml Output Total 500 ml 1 ml 900 ml Balance 220 ml 239 ml -600 ml Intake Oral 720 ml 240 ml 300 ml Output Urine Total 500 ml 900 ml Stool Total 0 ml 1 ml 0 ml # Voids 0 # Bowel Movements 0 Result Diagram: 04/23/17 0840 04/23/17 0840 Imaging Last Impressions Chest X-Ray 04/22/17 0000 Signed Impressions: Service Date/Time: Saturday, April 22, 2017 13:57 - CONCLUSION: No acute cardiomegaly disease. Sudhir Velez MD Objective Remarks GENERAL: Well-developed well-nourished. In no acute distress. SKIN: Warm and dry. No lesions noted. HEENT: Normocephalic. Pupils equal and round. Mucous membranes pink and moist. CARDIOVASCULAR: Regular rate and rhythm. No murmur appreciated. RESPIRATORY: No accessory muscle use. Clear to auscultation. Breath sounds equal bilaterally. GASTROINTESTINAL: Abdomen soft, non-tender, nondistended. Bowel sounds x4. Ostomy in place on the left. : Wound on the scrotal and perineal areas appears clean and not infected. MUSCULOSKELETAL: No obvious deformities. No clubbing or cyanosis. No edema. NEUROLOGICAL: Awake and alert. No focal neurological deficits. Moves upper and lower extremities spontaneously. Normal speech. PSYCHIATRIC: Mood and affect appropriate. Procedures None Urinary Catheter: Yes Assessment to: Continue Ellis insert reason: Stage III/IV Press Ulcer Date of Insertion: April 22, 2017 A/P Problem List: (1) UTI (urinary tract infection) ICD Code: N39.0 Status: Acute (2) Failure to thrive in adult ICD Code: R62.7 Status: Acute Assessment and Plan Inability to care for self The patient was discharged home from the correction facility and did not have running water. He had a hard time taking care of himself and was brought in to the hospital by police. - Case management consult requested. - Physical therapy/ occupational therapy. - Supportive care. Necrotizing fasciitis/ Tony's Gangrene Treated for during recent hospitalization. S/p excision and debridement with washout of necrotizing fasciitis of the perineum, scrotum, and bilateral groin region. He had bacteremia and multiple organisms growing from the wound. He completed a course of antibiotics per ID. The wound appears non-infected at this time - wound care nurse and consult. 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 The patient's ostomy bag exploded prior to arrival in the emergency department and reports indicate that he was covered in feces. - continue ostomy care. - Ostomy nurse consult requested. Complicated UTI UA mildly positive, likely s/t colostomy explosion. He has leukocytosis. Ellis catheter changed in the emergency department - continue ceftriaxone and monitor urine culture. Diabetes mellitus. A1c 5.8 Glucose elevated in the ED. - Discontinue Levemir, patient states he is on metformin 500 mg twice a day - sliding scale insulin with Accu-Cheks. Right second/fifth toe amputation/ Left second amputation/ Diabetic foot ulcers Wound care evaluated the pt on last admit and recommended Maxorb 3 days/keep heels elevated off bed. - wound care nurse consult requested. Hypokalemia The pt received repletion in the ED. - monitor and replete as needed. Prophylaxis: SCDs and early ambulation. Hold pharmacological prophylaxis pending evaluation I spent 35 minutes [id number] with the patient or on the kunz discussing the patient's disposition, prognosis, and plan of care with patient's caregivers. Over half the time spent was devoted to counseling the patient regarding placement in coordinating care with caregivers Jai Hawkins MD April 23, 2017 10:17
[2017-04-23] MEDS ORDERED: POTASSIUM CHLORIDE 10 MEQ CONTROLLED RELEASE TAB PO ONE (11:00)
[2017-04-23] MEDS ORDERED: POTASSIUM CHLORIDE 20 MEQ CONTROLLED RELEASE TAB PO ONE (11:00)
[2017-04-23 12:00] VITALS: BP 121/67; PULSE 73; RESP 20; TEMP 98.5; O2SAT 99
[2017-04-23 16:00] VITALS: BP 127/72; PULSE 73; RESP 20; TEMP 97.9; O2SAT 99
[2017-04-23] MEDS: metFORMIN HCL 500 MG TAB PO SCH (17:09)
[2017-04-23 21:05] VITALS: BP 124/68; PULSE 76; RESP 18; TEMP 98.2; O2SAT 98
[2017-04-24] VITALS: BP 105/71; PULSE 65; RESP 17; TEMP 97; O2SAT 100
[2017-04-24 04:00] VITALS: BP 124/68; PULSE 71; RESP 16; TEMP 98.1; O2SAT 97
[2017-04-24] MEDS: INSULIN ASPART SUPPLEMENTAL SCALE SQ SCH ×4 (05:37→21:47)
[2017-04-24 08:00] VITALS: BP 145/84; PULSE 86; RESP 18; TEMP 97.8; O2SAT 94
[2017-04-24 08:12] LABS: POTASSIUM 3.6 MEQ/L (3.5-5.1)
[2017-04-24 08:19] LABS: BICARBONATE 33.9 MEQ/L (21.0-32.0)
[2017-04-24 08:20] LABS: MAGNESIUM 1.8 MG/DL (1.5-2.5)
[2017-04-24] MEDS ORDERED: POTASSIUM CHLORIDE 20 MEQ CONTROLLED RELEASE TAB PO ONE (09:00)
[2017-04-24] MEDS: LIPASE/PROTEASE/AMYLASE (24,000/76,000/120,000) CAP PO SCH ×3 (09:40→17:55)
[2017-04-24] MEDS: SODIUM CHLORIDE 0.9% FLUSH 10 ML FLUSH IV FLUSH SCH ×2 (09:41→21:48)
[2017-04-24] MEDS: PANTOPRAZOLE SOD 40 MG DELAYED RELEASE TAB PO SCH (09:41)
[2017-04-24] MEDS: METOPROLOL TARTRATE 25 MG TAB PO SCH ×2 (09:41→21:48)
[2017-04-24] MEDS: metFORMIN HCL 500 MG TAB PO SCH ×2 (09:41→17:56)
--- NOTE | 2017-04-24 11:20 | MB ---
cc: HUMAIRA PARRA DATE OF CONSULTATION 04/24/2017 REASON FOR CONSULTATION Mr. Donahue is a pleasant 67-year-old male who had a history of Tony's gangrene and was hospitalized for approximately a month at [facility] during the month of February. He underwent multiple debridements with washout of the scrotal area and the right inguinal region. He later was sent to a facility and received local wound care there and now presents back after being brought to the hospital. He has had a Ellis catheter in since his discharge and was recently changed on admission here. PAST MEDICAL HISTORY His medical history includes: 1. Diabetes mellitus with diabetic neuropathy 2. Arthritis 3. Hypertension 4. Atrial fibrillation 5. History of megacolon and Tony's gangrene PAST SURGICAL HISTORY 1. Debridement for Tony's gangrene 2. Colostomy 3. Tonsillectomy 4. 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 5. Oral surgery. ALLERGIES FLU VACCINE MEDICATIONS For medications, please refer to the chart. FAMILY HISTORY Notable for diabetes. SOCIAL HISTORY He denies smoking, drinking or using drugs. REVIEW OF SYSTEMS A 12-point review of systems was performed and is negative per the HPI. PHYSICAL EXAM VITAL SIGNS: 97.8 is his temperature, 86 is heart rate, 18 is respiratory rate, 145/84. GENERAL: He is a well-developed, well-nourished 67-year-old male in no acute distress. HEENT is normocephalic, atraumatic. Pupils equal round react to light. Extraocular movements intact. NECK: Supple. HEART: Regular rate and rhythm. LUNGS: Clear. ABDOMEN: Soft, nontender, and nondistended. Colostomy is in place. : Ellis catheter in place. Uncircumcised male with minimal skin breakdown due to Ellis catheter compression of the foreskin on the lateral sides. The scrotum is clean and notes good granulation tissue without signs of infection. The dressing was changed at the bedside with wet-to-dry dressing changes. EXTREMITIES: Show 1+ edema. LAB VALUES As follows: White count is 8.3, hemoglobin 11.1, hematocrit 34.0, platelet count 275. Chemistry sodium 142, potassium 3.6, chloride 101, CO2 33.9, BUN of 7, creatinine 0.57, glucose 143, calcium is 8.1. Urinalysis shows nitrite positive with 0-3 red cells and 0-2 white cells. Urine culture shows 50-100,000 mixed fluoro. Chest x-ray at admission shows no acute cardiomegaly disease. ASSESSMENT This is a 67-year-old male with a history of Tony's gangrene. The wound site is clean and dry without signs of infection. PLAN Continue with daily dressing changes with wet-to-dry dressings. Wound care consult and also would recommend plastic surgery evaluation to consider grafting area to help with wound closure. We will follow with you. Thank you for the consult and allowing me to participate in the care of this patient. Humaira SANDERS /11:08 AM /11:15 AM
[2017-04-24 12:00] VITALS: BP 133/79; PULSE 75; RESP 18; TEMP 97.6; O2SAT 95
--- NOTE | 2017-04-24 12:42 | HHI.PR ---
Subjective Remarks Follow-up perineal wound. Patient has no complaints discussed with recommends plastic surgery consult. Discussed with case management working on rehabilitation versus LTAC. Objective Vitals Vital Signs Date Time Temp Pulse Resp B/P Pulse Ox O2 Delivery O2 Flow Rate FiO2 04/24/17 08:00 97.8 86 18 145/84 94 04/24/17 04:00 98.1 71 16 124/68 97 04/24/17 00:00 97.0 65 17 105/71 100 04/23/17 21:05 98.2 76 18 124/68 98 04/23/17 16:00 97.9 73 20 127/72 99 I/O 04/23/17 04/23/17 04/23/17 04/24/17 04/24/17 04/24/17 07:00 15:00 23:00 07:00 15:00 23:00 Intake Total 240 ml 1020 ml Output Total 1 ml 2100 ml 1700 ml Balance 239 ml -1080 ml -1700 ml Intake Oral 240 ml 1020 ml Output Urine Total 2100 ml 1700 ml Stool Total 1 ml 0 ml # Bowel Movements 0 Result Diagram: 04/23/17 0840 04/24/17 0650 Imaging Last Impressions Chest X-Ray 04/22/17 0000 Signed Impressions: Service Date/Time: Saturday, April 22, 2017 13:57 - CONCLUSION: No acute cardiomegaly disease. Sudhir Velez MD Objective Remarks GENERAL: Well-developed well-nourished. In no acute distress. SKIN: Warm and dry. No lesions noted. HEENT: Normocephalic. Pupils equal and round. Mucous membranes pink and moist. CARDIOVASCULAR: Regular rate and rhythm. No murmur appreciated. RESPIRATORY: No accessory muscle use. Clear to auscultation. Breath sounds equal bilaterally. GASTROINTESTINAL: Abdomen soft, non-tender, nondistended. Bowel sounds x4. Ostomy in place on the left. : Wound on the scrotal and perineal areas appears clean and not infected. MUSCULOSKELETAL: No obvious deformities. No clubbing or cyanosis. No edema. NEUROLOGICAL: Awake and alert. No focal neurological deficits. Moves upper and lower extremities spontaneously. Normal speech. PSYCHIATRIC: Mood and affect appropriate. Procedures None Date of Insertion: April 22, 2017 A/P Problem List: (1) UTI (urinary tract infection) ICD Code: N39.0 Status: Acute (2) Failure to thrive in adult ICD Code: R62.7 Status: Acute Assessment and Plan Inability to care for self The patient was discharged home from the detention facility and did not have running water. He had a hard time taking care of himself and was brought in to the hospital by police. - Case management consult requested. - Physical therapy/ occupational therapy. - Supportive care. Necrotizing fasciitis/ Tony's Gangrene Treated for during recent hospitalization. S/p excision and debridement with washout of necrotizing fasciitis of the perineum, scrotum, and bilateral groin region. He had bacteremia and multiple organisms growing from the wound. He completed a course of antibiotics per ID. The wound appears non-infected at this time - wound care nurse. Discussed with recommends plastic surgery consult Ostomy Secondary to proctosigmoidectomy with Vale's pouch and end colostomy secondary to megacolon. The patient's ostomy bag exploded prior to arrival in the emergency department and reports indicate that he was covered in feces. - continue ostomy care. - Ostomy nurse consult requested. - Patient without bowel movement for the past 2 days. Start MiraLAX with as needed Diane-Colace Abnormal urinalysis. Urine culture with contaminants. Discontinue Rocephin - Ellis catheter changed in the emergency department Diabetes mellitus. A1c 5.8 Glucose elevated in the ED. - Discontinue Levemir, patient states he is on metformin 500 mg twice a day - sliding scale insulin with Accu-Cheks. Right second/fifth toe amputation/ Left second amputation/ Diabetic foot ulcers Wound care evaluated the pt on last admit and recommended Maxorb 3 days/keep heels elevated off bed. - wound care nurse consult requested. Hypokalemia The pt received repletion in the ED. - monitor and replete as needed. Prophylaxis: SCDs and early ambulation. Hold pharmacological prophylaxis pending Lasix surgery evaluation Jai Hawkins MD Apr 24, 2017 12:42
[2017-04-24] MEDS ORDERED: DOCUSATE SODIUM 50 MG/SENNA 8.6 MG TAB PO PRN (13:00)
[2017-04-24] MEDS: POLYETHYLENE GLYCOL 17 GM PKG PO SCH (14:13)
[2017-04-24 16:00] VITALS: BP 128/77; PULSE 68; RESP 19; TEMP 97.7; O2SAT 96
[2017-04-24 20:00] VITALS: BP 136/69; PULSE 68; RESP 20; TEMP 96.4; O2SAT 97
[2017-04-25] VITALS: BP 140/71; PULSE 83; RESP 18; TEMP 96; O2SAT 98
[2017-04-25 08:00] VITALS: BP 110/66; PULSE 77; RESP 18; TEMP 96.1; O2SAT 99
[2017-04-25] MEDS: POLYETHYLENE GLYCOL 17 GM PKG PO SCH (08:58)
[2017-04-25] MEDS: PANTOPRAZOLE SOD 40 MG DELAYED RELEASE TAB PO SCH (08:58)
[2017-04-25] MEDS: metFORMIN HCL 500 MG TAB PO SCH ×2 (08:58→17:17)
[2017-04-25] MEDS: INSULIN ASPART SUPPLEMENTAL SCALE SQ SCH ×4 (08:58→21:00)
[2017-04-25] MEDS: METOPROLOL TARTRATE 25 MG TAB PO SCH ×2 (08:58→21:12)
[2017-04-25] MEDS: SODIUM CHLORIDE 0.9% FLUSH 10 ML FLUSH IV FLUSH SCH ×2 (09:05→21:14)
[2017-04-25] MEDS: LIPASE/PROTEASE/AMYLASE (24,000/76,000/120,000) CAP PO SCH ×3 (09:05→18:00)
--- NOTE | 2017-04-25 11:41 | HHI.PR ---
Subjective Remarks Follow-up scrotal and perineal wound. Awaiting plastic surgery evaluation was informed nobody on-call until Friday. Continue wound care. Patient having bowel movement. Discussed with RN Objective Vitals Vital Signs Date Time Temp Pulse Resp B/P Pulse Ox O2 Delivery O2 Flow Rate FiO2 04/25/17 08:00 96.1 77 18 110/66 99 04/25/17 00:00 96.0 83 18 140/71 98 04/24/17 20:00 96.4 68 20 136/69 97 04/24/17 16:00 97.7 68 19 128/77 96 04/24/17 12:00 97.6 75 18 133/79 95 I/O 04/24/17 04/24/17 04/24/17 04/25/17 04/25/17 04/25/17 07:00 15:00 23:00 07:00 15:00 23:00 Intake Total 960 ml 60 ml Output Total 1700 ml 2400 ml 1375 ml 1000 ml Balance -1700 ml -1440 ml -1315 ml -1000 ml Intake Oral 960 ml 60 ml Output Urine Total 1700 ml 2400 ml 1375 ml 1000 ml # Bowel Movements 0 0 1 Result Diagram: 04/23/17 0840 04/24/17 0650 Imaging Last Impressions Chest X-Ray 04/22/17 0000 Signed Impressions: Service Date/Time: Saturday, April 22, 2017 13:57 - CONCLUSION: No acute cardiomegaly disease. Sudhir Velez MD Objective Remarks GENERAL: Well-developed well-nourished. In no acute distress. SKIN: Warm and dry. No lesions noted. HEENT: Normocephalic. Pupils equal and round. Mucous membranes pink and moist. CARDIOVASCULAR: Regular rate and rhythm. No murmur appreciated. RESPIRATORY: No accessory muscle use. Clear to auscultation. Breath sounds equal bilaterally. GASTROINTESTINAL: Abdomen soft, non-tender, nondistended. Bowel sounds x4. Ostomy in place on the left. : Wound on the scrotal and perineal areas appears clean and not infected. MUSCULOSKELETAL: No obvious deformities. No clubbing or cyanosis. No edema. NEUROLOGICAL: Awake and alert. No focal neurological deficits. Moves upper and lower extremities spontaneously. Normal speech. Nonfocal PSYCHIATRIC: Mood and affect appropriate. Procedures None Date of Insertion: April 22, 2017 A/P Problem List: (1) UTI (urinary tract infection) ICD Code: N39.0 Status: Acute (2) Failure to thrive in adult ICD Code: R62.7 Status: Acute Assessment and Plan Inability to care for self The patient was [facility] and did not have running water. He had a hard time taking care of himself and was brought in to the hospital by police. - Case management consult requested. - Physical therapy/ occupational therapy. - Supportive care. Necrotizing fasciitis/ Tony's Gangrene Treated for during recent hospitalization. S/p excision and debridement with washout of necrotizing fasciitis of the perineum, scrotum, and bilateral groin region. He had bacteremia and multiple organisms growing from the wound. He completed a course of antibiotics per ID. The wound appears non-infected at this time - wound care nurse. Discussed with recommends plastic surgery consult but nobody on-call until April 28 Ostomy Secondary to proctosigmoidectomy with Vale's pouch and end colostomy secondary to megacolon. The patient's ostomy bag exploded prior to arrival in the emergency department and reports indicate that he was covered in feces. - continue ostomy care. - Ostomy nurse consult requested. -Stooling continue MiraLAX with as needed Diane-Colace Abnormal urinalysis. Urine culture with contaminants. Discontinue Rocephin - Ellis catheter changed in the emergency department Diabetes mellitus. A1c 5.8 Glucose elevated in the ED. - Discontinue Levemir, patient states he is on metformin 500 mg twice a day - sliding scale insulin with Accu-Cheks. Right second/fifth toe amputation/ Left second amputation/ Diabetic foot ulcers Wound care evaluated the pt on last admit and recommended Maxorb 3 days/keep heels elevated off bed. - wound care nurse consult requested. Hypokalemia The pt received repletion in the ED. - monitor and replete as needed. Prophylaxis: SCDs and early ambulation. Start subcutaneous heparin Discharge Planning Not stable for discharge Jai Hawkins MD Apr 25, 2017 11:41
[2017-04-25 12:00] VITALS: BP 120/72; PULSE 74; RESP 18; TEMP 96.9; O2SAT 93
[2017-04-25 16:00] VITALS: BP 105/67; PULSE 80; RESP 18; TEMP 99.3; O2SAT 97
[2017-04-25] MEDS: HEPARIN SODIUM - SQ 10,000 UNITS/ML VIAL SQ SCH (21:13)
[2017-04-25 21:17] VITALS: BP 130/72; PULSE 81; RESP 18; TEMP 98; O2SAT 96
[2017-04-26 00:57] VITALS: BP 116/66; PULSE 72; RESP 18; TEMP 98.3; O2SAT 99
[2017-04-26 04:49] VITALS: BP 115/76; PULSE 69; RESP 16; TEMP 98; O2SAT 100
[2017-04-26] MEDS: INSULIN ASPART SUPPLEMENTAL SCALE SQ SCH ×4 (06:27→23:14)
[2017-04-26 08:00] VITALS: BP 137/84; PULSE 82; RESP 17; TEMP 97.4; O2SAT 98
[2017-04-26] MEDS: LIPASE/PROTEASE/AMYLASE (24,000/76,000/120,000) CAP PO SCH ×3 (08:58→17:53)
[2017-04-26] MEDS: METOPROLOL TARTRATE 25 MG TAB PO SCH ×2 (08:58→22:26)
[2017-04-26] MEDS: PANTOPRAZOLE SOD 40 MG DELAYED RELEASE TAB PO SCH (08:58)
[2017-04-26] MEDS: metFORMIN HCL 500 MG TAB PO SCH ×2 (08:58→17:53)
[2017-04-26] MEDS: POLYETHYLENE GLYCOL 17 GM PKG PO SCH (08:59)
[2017-04-26] MEDS: HEPARIN SODIUM - SQ 10,000 UNITS/ML VIAL SQ SCH ×2 (09:00→22:26)
[2017-04-26] MEDS: SODIUM CHLORIDE 0.9% FLUSH 10 ML FLUSH IV FLUSH SCH ×2 (09:01→22:26)
--- NOTE | 2017-04-26 10:12 | HHI.PR ---
Subjective Remarks Follow-up perineal wound. Patient has no new complaints understands nobody is oncology nurse Until Friday for plastic surgery. He has been stooling. Discussed with RN Objective Vitals Vital Signs Date Time Temp Pulse Resp B/P Pulse Ox O2 Delivery O2 Flow Rate FiO2 04/26/17 08:00 97.4 82 17 137/84 98 04/26/17 04:49 98.0 69 16 115/76 100 04/26/17 00:57 98.3 72 18 116/66 99 04/25/17 21:17 98.0 81 18 130/72 96 04/25/17 16:00 99.3 80 18 105/67 97 04/25/17 12:00 96.9 74 18 120/72 93 I/O 04/25/17 04/25/17 04/25/17 04/26/17 04/26/17 04/26/17 07:00 15:00 23:00 07:00 15:00 23:00 Intake Total 960 ml Output Total 1000 ml 850 ml 1600 ml 2400 ml Balance -1000 ml -850 ml -640 ml -2400 ml Intake Oral 960 ml Output Urine Total 1000 ml 850 ml 1400 ml 2400 ml Stool Total 200 ml # Bowel Movements 1 Result Diagram: 04/23/17 0840 04/24/17 0650 Imaging Last Impressions Chest X-Ray 04/22/17 0000 Signed Impressions: Service Date/Time: Saturday, April 22, 2017 13:57 - CONCLUSION: No acute cardiomegaly disease. Sudhir Velez MD Objective Remarks GENERAL: Well-developed well-nourished. In no acute distress. SKIN: Warm and dry. No lesions noted. HEENT: Normocephalic. Pupils equal and round. Mucous membranes pink and moist. RESPIRATORY: No accessory muscle use. GASTROINTESTINAL: Ostomy in place on the left. : Wound on the scrotal and perineal areas appears clean and not infected. MUSCULOSKELETAL: No obvious deformities. No clubbing or cyanosis. No edema. NEUROLOGICAL: Awake and alert. No focal neurological deficits. Moves upper and lower extremities spontaneously. Normal speech. Nonfocal PSYCHIATRIC: Mood and affect appropriate. Procedures None Date of Insertion: April 22, 2017 A/P Problem List: (1) UTI (urinary tract infection) ICD Code: N39.0 Status: Acute (2) Failure to thrive in adult ICD Code: R62.7 Status: Acute Assessment and Plan Inability to care for self The patient [facility] and did not have running water. He had a hard time taking care of himself and was brought in to the hospital by police. - Case management consult requested. - Physical therapy/ occupational therapy. - Supportive care. Necrotizing fasciitis/ Tony's Gangrene Treated for during recent hospitalization. S/p excision and debridement with washout of necrotizing fasciitis of the perineum, scrotum, and bilateral groin region. He had bacteremia and multiple organisms growing from the wound. He completed a course of antibiotics per ID. The wound appears non-infected at this time - wound care nurse. Discussed with recommends plastic surgery consult but nobody on-call until April 28 Ostomy Secondary to proctosigmoidectomy with Vale's pouch and end colostomy secondary to megacolon. The patient's ostomy bag exploded prior to arrival in the emergency department and reports indicate that he was covered in feces. - continue ostomy care. - Ostomy nurse consult requested. -Stooling continue MiraLAX with as needed Diane-Colace Abnormal urinalysis. Urine culture with contaminants. Discontinue Rocephin - Ellis catheter changed in the emergency department Diabetes mellitus. A1c 5.8 Glucose elevated in the ED. - Discontinue Levemir, patient states he is on metformin 500 mg twice a day - sliding scale insulin with Accu-Cheks. Right second/fifth toe amputation/ Left second amputation/ Diabetic foot ulcers Wound care evaluated the pt on last admit and recommended Maxorb 3 days/keep heels elevated off bed. - wound care nurse consult requested. Hypokalemia The pt received repletion in the ED. - monitor and replete as needed. Prophylaxis: SCDs and early ambulation. Continue subcutaneous heparin Discharge Planning Not a safe discharge to home. Case management following for placement Jai Hawkins MD Apr 26, 2017 10:12
[2017-04-26 12:00] VITALS: BP 144/78; PULSE 87; RESP 18; TEMP 97.5; O2SAT 97
[2017-04-26 16:00] VITALS: BP 99/60; PULSE 74; RESP 18; TEMP 100.5; O2SAT 96
[2017-04-26 21:56] VITALS: BP 127/70; PULSE 87; RESP 18; TEMP 98.4; O2SAT 97
[2017-04-27 00:58] VITALS: BP 123/68; PULSE 80; RESP 16; TEMP 98; O2SAT 98
[2017-04-27 05:23] VITALS: BP 118/69; PULSE 76; RESP 18; TEMP 98.2; O2SAT 99
[2017-04-27 08:00] VITALS: BP 118/69; PULSE 83; RESP 17; TEMP 97.8; O2SAT 95
[2017-04-27] MEDS: LIPASE/PROTEASE/AMYLASE (24,000/76,000/120,000) CAP PO SCH ×3 (09:00→17:39)
[2017-04-27] MEDS: HEPARIN SODIUM - SQ 10,000 UNITS/ML VIAL SQ SCH ×2 (09:01→20:35)
[2017-04-27] MEDS: metFORMIN HCL 500 MG TAB PO SCH ×2 (09:01→17:39)
[2017-04-27] MEDS: PANTOPRAZOLE SOD 40 MG DELAYED RELEASE TAB PO SCH (09:02)
[2017-04-27] MEDS: POLYETHYLENE GLYCOL 17 GM PKG PO SCH (09:02)
[2017-04-27] MEDS: METOPROLOL TARTRATE 25 MG TAB PO SCH ×2 (09:02→20:35)
[2017-04-27] MEDS: SODIUM CHLORIDE 0.9% FLUSH 10 ML FLUSH IV FLUSH SCH ×2 (09:07→20:36)
[2017-04-27] MEDS: INSULIN ASPART SUPPLEMENTAL SCALE SQ SCH ×4 (09:09→21:00)
--- NOTE | 2017-04-27 11:34 | HHI.PR ---
Subjective Remarks Follow-up scrotal and perineal wound. States he is doing okay. Stooling. Discussed with RN Objective Vitals Vital Signs Date Time Temp Pulse Resp B/P Pulse Ox O2 Delivery O2 Flow Rate FiO2 04/27/17 08:00 97.8 83 17 118/69 95 04/27/17 05:23 98.2 76 18 118/69 99 04/27/17 00:58 98.0 80 16 123/68 98 04/26/17 21:56 98.4 87 18 127/70 97 04/26/17 16:00 100.5 74 18 99/60 96 04/26/17 12:00 97.5 87 18 144/78 97 I/O 04/26/17 04/26/17 04/26/17 04/27/17 04/27/17 04/27/17 07:00 15:00 23:00 07:00 15:00 23:00 Intake Total 600 ml 500 ml Output Total 2400 ml 1000 ml 1200 ml Balance -2400 ml -400 ml -1200 ml 500 ml Intake Oral 600 ml 500 ml Output Urine Total 2400 ml 1000 ml 1200 ml # Bowel Movements 0 Result Diagram: 04/23/17 0840 04/24/17 0650 Imaging Last Impressions Chest X-Ray 04/22/17 0000 Signed Impressions: Service Date/Time: Saturday, April 22, 2017 13:57 - CONCLUSION: No acute cardiomegaly disease. Sudhir Velez MD Objective Remarks GENERAL: Well-developed well-nourished. In no acute distress. SKIN: Warm and dry. No lesions noted. HEENT: Normocephalic. Pupils equal and round. Mucous membranes pink and moist. RESPIRATORY: No accessory muscle use. GASTROINTESTINAL: Ostomy in place on the left. : Wound on the scrotal and perineal areas appears clean and not infected. MUSCULOSKELETAL: No obvious deformities. No clubbing or cyanosis. No edema. NEUROLOGICAL: Awake and alert. No focal neurological deficits. Moves upper and lower extremities spontaneously. Normal speech. PSYCHIATRIC: Mood and affect appropriate. Procedures None Date of Insertion: April 22, 2017 A/P Problem List: (1) UTI (urinary tract infection) ICD Code: N39.0 Status: Acute (2) Failure to thrive in adult ICD Code: R62.7 Status: Acute Assessment and Plan Inability to care for self The patient was discharged home from the snf facility and did not have running water. He had a hard time taking care of himself and was brought in to the hospital by police. - Case management consult requested. - Physical therapy/ occupational therapy. - Supportive care. Necrotizing fasciitis/ Tony's Gangrene Treated for during recent hospitalization. S/p excision and debridement with washout of necrotizing fasciitis of the perineum, scrotum, and bilateral groin region. He had bacteremia and multiple organisms growing from the wound. He completed a course of antibiotics per ID. The wound appears non-infected at this time - wound care nurse. Discussed with recommends plastic surgery consult but nobody on-call until April 28 tomorrow Ostomy Secondary to proctosigmoidectomy with Vale's pouch and end colostomy secondary to megacolon. The patient's ostomy bag exploded prior to arrival in the emergency department and reports indicate that he was covered in feces. - continue ostomy care. - Ostomy nurse consult requested. - Stooling continue MiraLAX with as needed Diane-Colace Abnormal urinalysis. Urine culture with contaminants. Discontinue Rocephin - Ellis catheter changed in the emergency department Diabetes mellitus. A1c 5.8 Glucose elevated in the ED. - Discontinue Levemir, patient states he is on metformin 500 mg twice a day - sliding scale insulin with Accu-Cheks. Right second/fifth toe amputation/ Left second amputation/ Diabetic foot ulcers Wound care evaluated the pt on last admit and recommended Maxorb 3 days/keep heels elevated off bed. - wound care nurse consult requested. Hypokalemia The pt received repletion in the ED. - monitor and replete as needed. Prophylaxis: SCDs and early ambulation. Continue subcutaneous heparin Discharge Planning Not a safe discharge to home. Case management following for placement Jai Hawkins MD Apr 27, 2017 11:34
[2017-04-27 12:00] VITALS: BP 125/75; PULSE 83; RESP 18; TEMP 97.6; O2SAT 96
[2017-04-27 16:00] VITALS: BP 127/72; PULSE 84; RESP 17; TEMP 98.8; O2SAT 95
[2017-04-27 21:51] VITALS: BP 149/80; PULSE 80; RESP 18; TEMP 98; O2SAT 97
[2017-04-28 01:33] VITALS: BP 156/79; PULSE 68; RESP 16; TEMP 98.3; O2SAT 98
[2017-04-28 08:27] VITALS: BP 107/62; PULSE 77; RESP 18; TEMP 97.7; O2SAT 97
[2017-04-28] MEDS: PANTOPRAZOLE SOD 40 MG DELAYED RELEASE TAB PO SCH (08:32)
[2017-04-28] MEDS: POLYETHYLENE GLYCOL 17 GM PKG PO SCH (08:32)
[2017-04-28] MEDS: LIPASE/PROTEASE/AMYLASE (24,000/76,000/120,000) CAP PO SCH ×3 (08:32→17:43)
[2017-04-28] MEDS: metFORMIN HCL 500 MG TAB PO SCH ×2 (08:32→17:43)
[2017-04-28] MEDS: HEPARIN SODIUM - SQ 10,000 UNITS/ML VIAL SQ SCH ×2 (08:33→20:57)
[2017-04-28] MEDS: INSULIN ASPART SUPPLEMENTAL SCALE SQ SCH ×4 (08:39→21:00)
[2017-04-28] MEDS: SODIUM CHLORIDE 0.9% FLUSH 10 ML FLUSH IV FLUSH SCH ×2 (08:41→20:54)
[2017-04-28] MEDS: METOPROLOL TARTRATE 25 MG TAB PO SCH ×2 (08:41→20:53)
--- NOTE | 2017-04-28 11:58 | HHI.PR ---
Subjective Remarks Follow-up pending perineal and scrotal wounds. He has no new complaints awaiting plastic surgery consultation. Discussed with RN Objective Vitals Vital Signs Date Time Temp Pulse Resp B/P Pulse Ox O2 Delivery O2 Flow Rate FiO2 04/28/17 08:27 97.7 77 18 107/62 97 04/28/17 06:05 04/28/17 01:33 98.3 68 16 156/79 98 04/27/17 21:51 98.0 80 18 149/80 97 04/27/17 16:00 98.8 84 17 127/72 95 04/27/17 12:00 97.6 83 18 125/75 96 I/O 04/27/17 04/27/17 04/27/17 04/28/17 04/28/17 04/28/17 07:00 15:00 23:00 07:00 15:00 23:00 Intake Total 500 ml 0 ml 0 ml Output Total 1200 ml 1300 ml 200 ml 2400 ml Balance -1200 ml -800 ml -200 ml -2400 ml Intake Oral 500 ml IV Total 0 ml 0 ml Output Urine Total 1200 ml 900 ml 2400 ml Stool Total 400 ml 200 ml Result Diagram: 04/24/17 0650 Imaging Last Impressions Chest X-Ray 04/22/17 0000 Signed Impressions: Service Date/Time: Saturday, April 22, 2017 13:57 - CONCLUSION: No acute cardiomegaly disease. Sudhir Velez MD Objective Remarks GENERAL: Well-developed well-nourished. In no acute distress. SKIN: Warm and dry. No lesions noted. HEENT: Normocephalic. Pupils equal and round. Mucous membranes pink and moist. RESPIRATORY: No accessory muscle use. GASTROINTESTINAL: Ostomy in place on the left. : Wound on the scrotal and perineal areas appears clean and not infected. MUSCULOSKELETAL: No obvious deformities. No clubbing or cyanosis. No edema. NEUROLOGICAL: Awake and alert. No focal neurological deficits. Moves upper and lower extremities spontaneously. Normal speech. PSYCHIATRIC: Mood and affect appropriate. Procedures None Date of Insertion: April 22, 2017 A/P Problem List: (1) UTI (urinary tract infection) ICD Code: N39.0 Status: Acute (2) Failure to thrive in adult ICD Code: R62.7 Status: Acute Assessment and Plan Inability to care for self The patient was discharged home from the custodial facility and did not have running water. He had a hard time taking care of himself and was brought in to the hospital by police. - Case management consult requested. - Physical therapy/ occupational therapy. - Supportive care. Necrotizing fasciitis/ Tony's Gangrene Treated for during recent hospitalization. S/p excision and debridement with washout of necrotizing fasciitis of the perineum, scrotum, and bilateral groin region. He had bacteremia and multiple organisms growing from the wound. He completed a course of antibiotics per ID. The wound appears non-infected at this time - wound care nurse. Discussed with recommends plastic surgery consult but nobody on-call until April 28 today. Consult requested again Ostomy Secondary to proctosigmoidectomy with Vale's pouch and end colostomy secondary to megacolon. The patient's ostomy bag exploded prior to arrival in the emergency department and reports indicate that he was covered in feces. - continue ostomy care. - Ostomy nurse consult requested. - Stooling continue MiraLAX with as needed Diane-Colace Abnormal urinalysis. Urine culture with contaminants. Discontinue Rocephin - Ellis catheter changed in the emergency department Diabetes mellitus. A1c 5.8 Glucose elevated in the ED. - Discontinue Levemir, patient states he is on metformin 500 mg twice a day - sliding scale insulin with Accu-Cheks. Right second/fifth toe amputation/ Left second amputation/ Diabetic foot ulcers Wound care evaluated the pt on last admit and recommended Maxorb 3 days/keep heels elevated off bed. - wound care nurse consult requested. Hypokalemia The pt received repletion in the ED. - monitor and replete as needed. Prophylaxis: SCDs and early ambulation. Continue subcutaneous heparin Discharge Planning Not a safe discharge to home. Case management following for placement Jai Hawkins MD Apr 28, 2017 11:58
[2017-04-28 13:32] VITALS: BP 104/62; PULSE 80; RESP 16; TEMP 96.6; O2SAT 98
[2017-04-28 16:26] VITALS: BP 119/81; PULSE 87; RESP 15; TEMP 100.3; O2SAT 96
[2017-04-28] MEDS: SODIUM HYPOCHLORITE 0.25% 500 ML BTL TOPICAL SCH (17:44)
[2017-04-28 20:00] VITALS: BP 120/69; PULSE 80; RESP 18; TEMP 99.6; O2SAT 96
[2017-04-29] VITALS: BP 120/72; PULSE 76; RESP 16; TEMP 98.7; O2SAT 99
[2017-04-29 08:00] VITALS: BP 123/75; PULSE 74; RESP 18; TEMP 96.8; O2SAT 100
[2017-04-29] MEDS: PANTOPRAZOLE SOD 40 MG DELAYED RELEASE TAB PO SCH (09:53)
[2017-04-29] MEDS: POLYETHYLENE GLYCOL 17 GM PKG PO SCH (09:53)
[2017-04-29] MEDS: LIPASE/PROTEASE/AMYLASE (24,000/76,000/120,000) CAP PO SCH ×3 (09:53→18:46)
[2017-04-29] MEDS: metFORMIN HCL 500 MG TAB PO SCH ×2 (09:53→18:46)
[2017-04-29] MEDS: HEPARIN SODIUM - SQ 10,000 UNITS/ML VIAL SQ SCH ×2 (09:53→21:21)
[2017-04-29] MEDS: METOPROLOL TARTRATE 25 MG TAB PO SCH ×2 (09:53→21:21)
[2017-04-29] MEDS: INSULIN ASPART SUPPLEMENTAL SCALE SQ SCH ×4 (10:01→21:26)
[2017-04-29] MEDS: SODIUM CHLORIDE 0.9% FLUSH 10 ML FLUSH IV FLUSH SCH ×2 (10:02→21:21)
--- NOTE | 2017-04-29 10:05 | MB ---
cc: JANETH ÍDAZ M.D. DATE OF CONSULTATION: 04/28/2017 REFERRING PHYSICIAN: Dr. Jerome Rebolledo. REASON FOR CONSULTATION: Open wound and the scrotal area. HISTORY OF PRESENT ILLNESS The patient is a 67-year-old male with history of diabetes and Tony's gangrene which was treated previously by Dr. Norbert Cassidy. The patient did lose significant of tissue and scrotal area. The patient was discharged for wound care and has some serious social issues was brought into the emergency room by the police due to various issues. Consultation is requested regarding evaluation and treatment of the open wound in the scrotal area. REVIEW OF SYSTEMS The review of systems is negative except as accepts related to his present problem. PAST MEDICAL HISTORY: 1. Diabetes 2. Diabetic neuropathy 3. Arthritis. 4. Hypertension 5. Atrial fibrillation 6. History of megacolon and 7. Tony's gangrene. PAST SURGICAL HISTORY The patient had a second and fifth toe was amputated left second toe amputated He has had tonsillectomy oral surgery Colostomy Extensive surgery for Tony's gangrene ALLERGIES FLU VACCINE MDR multiple drug resistant organisms VRE Documented 03/17/2017. MEDICATIONS: Medications listed on the chart. FAMILY HISTORY Includes diabetes. SOCIAL HISTORY The patient denies substance abuse. PHYSICAL EXAMINATION: IN GENERAL: On examination the patient is sitting comfortably in his bed. VITAL SIGNS: His temperature is 96.6, pulse of 80, respirations 16, blood pressure 104/62 and pulse oximetry on room air is 98. HEAD, EYES, EARS, NOSE, AND THROAT: His extraocular muscles are intact. Pupils are equal round reactive to lights mouth is clear. NECK: His neck is supple without masses. LUNGS: His lungs are clear. HEART: Heart is regular rate rhythm. EXTREMITIES: Examination of his upper extremities is within normal limits. GENITALIA: The groin area has an open wound with the right left testicles are both exposed. There is a foul odor coming from this area. There is no evidence of surrounding cellulitis. LABORATORY DATA His white count on the was 8.3, H&H 11.1/34.0 with 275,000 platelets. Chemistry; he has a random glucose of 142 with a high of 231 on 04/22/2017. His coagulation INR is 1.1. IMPRESSION The patient is a diabetic male with a history of Tony's gangrene, social issues and a open wound. PLAN I have discussed this with Dr. Cassidy, we plan on taking in a week, to attempt to close the wound over a drain. The patient understands and accepts risks and complications of the surgery. MD TIFFANY Crow/eloisa /9:12 AM /9:41 AM
--- NOTE | 2017-04-29 10:35 | HHI.PR ---
Subjective Remarks Follow-up perineal and scrotal wounds. States he is doing okay seen by plastic surgery plans to close the wound with a drain next week in coordination with . Discussed with RN in case management Objective Vitals Vital Signs Date Time Temp Pulse Resp B/P Pulse Ox O2 Delivery O2 Flow Rate FiO2 04/29/17 08:00 96.8 74 18 123/75 100 04/29/17 00:00 98.7 76 16 120/72 99 04/28/17 20:00 99.6 80 18 120/69 96 04/28/17 16:26 100.3 87 15 119/81 96 04/28/17 13:32 96.6 80 16 104/62 98 I/O 04/28/17 04/28/17 04/28/17 04/29/17 04/29/17 04/29/17 07:00 15:00 23:00 07:00 15:00 23:00 Intake Total 0 ml 1200 ml Output Total 2400 ml 1000 ml Balance -2400 ml 200 ml Intake Oral 1200 ml IV Total 0 ml 0 ml Output Urine Total 2400 ml 1000 ml Imaging Last Impressions Chest X-Ray 04/22/17 0000 Signed Impressions: Service Date/Time: Saturday, April 22, 2017 13:57 - CONCLUSION: No acute cardiomegaly disease. Sudhir Velez MD Objective Remarks GENERAL: Well-developed well-nourished. In no acute distress. SKIN: Warm and dry. No lesions noted. HEENT: Normocephalic. Pupils equal and round. Mucous membranes pink and moist. RESPIRATORY: No accessory muscle use. GASTROINTESTINAL: Ostomy in place on the left. : Wound on the scrotal and perineal areas appears clean and not infected. MUSCULOSKELETAL: No obvious deformities. No clubbing or cyanosis. No edema. NEUROLOGICAL: Awake and alert. No focal neurological deficits. Moves upper and lower extremities spontaneously. Normal speech. PSYCHIATRIC: Mood and affect appropriate. Procedures None Date of Insertion: April 22, 2017 A/P Problem List: (1) UTI (urinary tract infection) ICD Code: N39.0 Status: Acute (2) Failure to thrive in adult ICD Code: R62.7 Status: Acute Assessment and Plan Inability to care for self The patient was discharged home from the intermediate facility and did not have running water. He had a hard time taking care of himself and was brought in to the hospital by police. - Case management consult requested. - Physical therapy/ occupational therapy. - Supportive care. Necrotizing fasciitis/ Tony's Gangrene Treated for during recent hospitalization. S/p excision and debridement with washout of necrotizing fasciitis of the perineum, scrotum, and bilateral groin region. He had bacteremia and multiple organisms growing from the wound. He completed a course of antibiotics per ID. The wound appears non-infected at this time - wound care nurse. Plastic surgery plans to close the wound with a drain next week in coordination with . 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 The patient's ostomy bag exploded prior to arrival in the emergency department and reports indicate that he was covered in feces. - continue ostomy care. - Ostomy nurse consult requested. - Stooling continue MiraLAX with as needed Diane-Colace Abnormal urinalysis. Urine culture with contaminants. Discontinue Rocephin - Ellis catheter changed in the emergency department Diabetes mellitus. A1c 5.8 Glucose elevated in the ED. - Discontinue Levemir, patient states he is on metformin 500 mg twice a day - sliding scale insulin with Accu-Cheks. Right second/fifth toe amputation/ Left second amputation/ Diabetic foot ulcers Wound care evaluated the pt on last admit and recommended Maxorb 3 days/keep heels elevated off bed. - wound care nurse consult requested. Hypokalemia The pt received repletion in the ED. - monitor and replete as needed. Prophylaxis: SCDs and early ambulation. Continue subcutaneous heparin Discharge Planning Not a safe discharge to home. Case management following for placement. May transfer to 5th floor Jai Carreon MD Apr 29, 2017 10:35
[2017-04-29 12:00] VITALS: BP 126/70; PULSE 76; RESP 18; TEMP 97.9; O2SAT 98
[2017-04-29 16:00] VITALS: BP 119/64; PULSE 84; RESP 18; TEMP 98.2; O2SAT 97
[2017-04-29] MEDS: SODIUM HYPOCHLORITE 0.25% 500 ML BTL TOPICAL SCH (16:43)
[2017-04-29 20:00] VITALS: BP 115/65; PULSE 85; RESP 16; TEMP 99.9; O2SAT 97
[2017-04-30] VITALS: BP 118/68; PULSE 80; RESP 16; TEMP 97.8; O2SAT 97
[2017-04-30] MEDS: INSULIN ASPART SUPPLEMENTAL SCALE SQ SCH ×4 (05:50→20:49)
[2017-04-30 08:00] VITALS: BP 128/76; PULSE 77; RESP 18; TEMP 98.9; O2SAT 99
[2017-04-30] MEDS: LIPASE/PROTEASE/AMYLASE (24,000/76,000/120,000) CAP PO SCH ×3 (09:00→20:21)
[2017-04-30] MEDS: METOPROLOL TARTRATE 25 MG TAB PO SCH ×2 (09:37→20:21)
[2017-04-30] MEDS: PANTOPRAZOLE SOD 40 MG DELAYED RELEASE TAB PO SCH (09:37)
[2017-04-30] MEDS: metFORMIN HCL 500 MG TAB PO SCH ×2 (09:38→18:53)
[2017-04-30] MEDS: HEPARIN SODIUM - SQ 10,000 UNITS/ML VIAL SQ SCH ×2 (09:38→20:21)
[2017-04-30] MEDS: SODIUM CHLORIDE 0.9% FLUSH 10 ML FLUSH IV FLUSH SCH ×2 (09:39→20:21)
[2017-04-30] MEDS: POLYETHYLENE GLYCOL 17 GM PKG PO SCH (09:39)
[2017-04-30] MEDS: SODIUM HYPOCHLORITE 0.25% 500 ML BTL TOPICAL SCH (09:42)
--- NOTE | 2017-04-30 11:52 | HHI.PR ---
Subjective Remarks Patient reports is feeling okay. No pain. No fevers or chills. Objective Vitals Vital Signs Date Time Temp Pulse Resp B/P Pulse Ox O2 Delivery O2 Flow Rate FiO2 04/30/17 08:00 98.9 77 18 128/76 99 04/30/17 00:00 97.8 80 16 118/68 97 04/29/17 20:00 99.9 85 16 115/65 97 04/29/17 16:00 98.2 84 18 119/64 97 04/29/17 12:00 97.9 76 18 126/70 98 I/O 04/29/17 04/29/17 04/29/17 04/30/17 04/30/17 04/30/17 07:00 15:00 23:00 07:00 15:00 23:00 Intake Total 750 ml 1200 ml 560 ml Output Total 1500 ml 1350 ml 600 ml Balance -750 ml -150 ml -40 ml Intake Oral 750 ml 1200 ml 560 ml Output Urine Total 1500 ml 1350 ml 600 ml # Bowel Movements 1 0 Imaging Last Impressions Chest X-Ray 04/22/17 0000 Signed Impressions: Service Date/Time: Saturday, April 22, 2017 13:57 - CONCLUSION: No acute cardiomegaly disease. Sudhir Velez MD Objective Remarks GENERAL: Well-developed well-nourished. In no acute distress. HEENT: Normocephalic. Pupils equal and round. Mucous membranes pink and moist. RESPIRATORY: No accessory muscle use. GASTROINTESTINAL: Ostomy in place on the left. : Scrotal/perineal wound is beefy red, appeared clean and noninfected. MUSCULOSKELETAL: No obvious deformities. No clubbing or cyanosis. No edema. NEUROLOGICAL: Awake and alert. No focal neurological deficits. Moves upper and lower extremities spontaneously. Normal speech. PSYCHIATRIC: Mood and affect appropriate. Procedures None Date of Insertion: April 22, 2017 A/P Problem List: (1) UTI (urinary tract infection) ICD Code: N39.0 Status: Acute (2) Failure to thrive in adult ICD Code: R62.7 Status: Acute Assessment and Plan 67-year-old male brought into the hospital due to inability to care for himself. Patient with recent history of Tony's gangrene status post extensive debridement. Currently awaiting surgical wound closure by plastics/ urology. Patient may need permanent placement. Inability to care for self The patient was discharged home from the intermediate facility and did not have running water. He had a hard time taking care of himself and was brought in to the hospital by police. - Case management following - Physical therapy/ occupational therapy. - Supportive care. Necrotizing fasciitis/ Tony's Gangrene Treated for during recent hospitalization. S/p excision and debridement with washout of necrotizing fasciitis of the perineum, scrotum, and bilateral groin region. He had bacteremia and multiple organisms growing from the wound. He completed a course of antibiotics per ID. The wound appears non-infected at this time - wound care nurse. Plastic surgery plans to close the wound with a drain next week in coordination with . 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 The patient's ostomy bag exploded prior to arrival in the emergency department and reports indicate that he was covered in feces. - continue ostomy care. - Ostomy nurse consult requested. - Stooling continue MiraLAX with as needed Diane-Colace Abnormal urinalysis. Urine culture with contaminants. Discontinue Rocephin - Ellis catheter changed in the emergency department Diabetes mellitus. A1c 5.8 Glucose elevated in the ED. - Discontinue Levemir, patient states he is on metformin 500 mg twice a day - sliding scale insulin with Accu-Cheks. Right second/fifth toe amputation/ Left second amputation/ Diabetic foot ulcers Wound care evaluated the pt on last admit and recommended Maxorb 3 days/keep heels elevated off bed. - wound care nurse following. Heel wound is improving.. Prophylaxis: SCDs and early ambulation. Continue subcutaneous heparin Discharge Planning Not a safe discharge to home. Case management following for placement. Shyla Gallegos MD Apr 30, 2017 11:52
[2017-04-30 12:00] VITALS: BP 105/67; PULSE 80; RESP 20; TEMP 97.4; O2SAT 98
[2017-04-30 16:30] VITALS: BP 117/60; PULSE 83; RESP 18; TEMP 98.9; O2SAT 99
[2017-04-30 20:00] VITALS: BP 135/65; PULSE 90; RESP 20; TEMP 97.6; O2SAT 100
[2017-05-01] MEDS: INSULIN ASPART SUPPLEMENTAL SCALE SQ SCH ×4 (07:53→21:54)
[2017-05-01 08:00] VITALS: BP 115/70; PULSE 72; RESP 18; TEMP 97.7; O2SAT 96
[2017-05-01] MEDS: POLYETHYLENE GLYCOL 17 GM PKG PO SCH (09:38)
[2017-05-01] MEDS: metFORMIN HCL 500 MG TAB PO SCH ×2 (09:39→17:35)
[2017-05-01] MEDS: METOPROLOL TARTRATE 25 MG TAB PO SCH ×2 (09:39→21:30)
[2017-05-01] MEDS: PANTOPRAZOLE SOD 40 MG DELAYED RELEASE TAB PO SCH (09:39)
[2017-05-01] MEDS: HEPARIN SODIUM - SQ 10,000 UNITS/ML VIAL SQ SCH ×2 (09:39→21:30)
[2017-05-01] MEDS: LIPASE/PROTEASE/AMYLASE (24,000/76,000/120,000) CAP PO SCH ×3 (09:39→17:35)
[2017-05-01] MEDS: SODIUM HYPOCHLORITE 0.25% 500 ML BTL TOPICAL SCH (09:40)
[2017-05-01] MEDS: SODIUM CHLORIDE 0.9% FLUSH 10 ML FLUSH IV FLUSH SCH (09:41)
--- NOTE | 2017-05-01 11:19 | HHI.PR ---
Subjective Remarks Patient originally presented to the hospital because of unable to care for self. Patient recent hospitalization with for years gangrene and was discharged to nursing facility. Patient separately discharged from the nursing facility to home. However the patient did not have any water at home he was borrowing from neighbors. Patient was unable to care for himself. Unable to keep his wounds clean. He is brought to the hospital by police and subsequently admitted for further evaluation and management. Patient has had evaluation by plastic surgery and urology. Plans are to have surgical intervention with closure of the wound with drain when can be arranged by plastic surgery and urology. At the present time patient is resting comfortably in bed. Denies any new complaints. Objective Vitals Vital Signs Date Time Temp Pulse Resp B/P Pulse Ox O2 Delivery O2 Flow Rate FiO2 05/01/17 08:00 97.7 72 18 115/70 96 04/30/17 20:00 97.6 90 20 135/65 100 04/30/17 16:30 98.9 83 18 117/60 99 04/30/17 12:00 97.4 80 20 105/67 98 I/O 04/30/17 04/30/17 04/30/17 05/01/17 05/01/17 05/01/17 07:00 15:00 23:00 07:00 15:00 23:00 Intake Total 560 ml 120 ml 120 ml Output Total 600 ml 2600 ml 750 ml Balance -40 ml -2480 ml -630 ml Intake Oral 560 ml 120 ml 120 ml Output Urine Total 600 ml 2600 ml 750 ml # Bowel Movements 0 Imaging Last Impressions Chest X-Ray 04/22/17 0000 Signed Impressions: Service Date/Time: Saturday, April 22, 2017 13:57 - CONCLUSION: No acute cardiomegaly disease. Sudhir Velez MD Objective Remarks GENERAL: Well-developed, cachectic, in no acute distress. alert and orientated HEENT: Head is normocephalic without any lesions or masses noted. Facial features are symmetric. Eyes: Extraocular muscles are intact. Conjunctivae were clear. NECK: Supple without any masses. Trachea midline no deviation. No JVD, CARDIAC: Regular rhythm, regular rate. S1/S2 are heard. No murmurs gallops or rubs. LUNGS: Clear to auscultation bilaterally. No wheeze, rhonchi or rales. No use of accessory muscles on inspiration or expiration. ABDOMEN: Soft, nontender. Nondistended. Bowel sounds heard in all 4 quadrants. No organomegaly or masses. Negative rebound, negative guarding EXTREMITIES: No edema, pulses are equal bilaterally. No cyanosis or clubbing NEUROLOGY: Mood and affect appear appropriate. Cranial nerves II through XII grossly intact. Moving all extremities, speech is clear GENITOURINARY: Ellis catheter is in place. Patient does have bandages in place at this time. Procedures None Urinary Catheter: Yes Assessment to: Continue Ellis insert reason: Surgical/Invasive Proced Date of Insertion: April 22, 2017 Vascular Central Line Catheter: No A/P Assessment and Plan 67-year-old male brought into the hospital due to inability to care for himself. Patient with recent history of Tony's gangrene status post extensive debridement. Currently awaiting surgical wound closure by plastics/ urology. Patient may need permanent placement. Necrotizing fasciitis/ Tony's Gangrene Treated for during recent hospitalization. S/p excision and debridement with washout of necrotizing fasciitis of the perineum, scrotum, and bilateral groin region. He had bacteremia and multiple organisms growing from the wound. He completed a course of antibiotics per ID. The wound appears non-infected at this time - wound care nurse. Plastic surgery plans to close the wound with a drain next week in coordination with . Inability to care for self The patient was discharged home from the group home facility and did not have running water. He had a hard time taking care of himself and was brought in to the hospital by police. - Case management following - Physical therapy/ occupational therapy. - Supportive care. 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 The patient's ostomy bag exploded prior to arrival in the emergency department and reports indicate that he was covered in feces. - continue ostomy care. - Ostomy nurse consult requested. - Stooling continue MiraLAX with as needed Diane-Colace Abnormal urinalysis. - Urine culture with contaminants. - Antibiotics discontinued - Ellis catheter changed in the emergency department - Continue to change Ellis on a monthly basis Diabetes mellitus. A1c 5.8, uncontrolled - Blood glucose still uncontrolled requiring varied sliding scale insulin, BGM 147-359. Could be secondary to increased caloric diet, nutritional shakes, however these are being used for healing and malnourishment - metformin 500 mg twice a day - sliding scale insulin with Accu-Cheks. 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 - wound care nurse following. Heel wound is improving.. Prophylaxis: SCDs and early ambulation. Continue subcutaneous heparin Pascual Landin May 01, 2017 11:19
[2017-05-01] MEDS ORDERED: ONDANSETRON ODT 4 MG TAB PO PRN (11:30)
[2017-05-01 20:00] VITALS: BP 116/69; PULSE 78; RESP 16; TEMP 97.5; O2SAT 98
[2017-05-01] MEDS: JUVEN POWDER 1 PACK G-TUBE SCH (21:00)
[2017-05-02 08:00] VITALS: BP 138/76; PULSE 72; RESP 18; TEMP 98; O2SAT 99
[2017-05-02] MEDS: LIPASE/PROTEASE/AMYLASE (24,000/76,000/120,000) CAP PO SCH ×3 (08:02→16:21)
[2017-05-02] MEDS: POLYETHYLENE GLYCOL 17 GM PKG PO SCH (08:02)
[2017-05-02] MEDS: METOPROLOL TARTRATE 25 MG TAB PO SCH ×2 (08:02→21:46)
[2017-05-02] MEDS: metFORMIN HCL 500 MG TAB PO SCH ×2 (08:02→16:21)
[2017-05-02] MEDS: HEPARIN SODIUM - SQ 10,000 UNITS/ML VIAL SQ SCH ×2 (08:03→21:47)
[2017-05-02] MEDS: PANTOPRAZOLE SOD 40 MG DELAYED RELEASE TAB PO SCH (08:03)
[2017-05-02] MEDS: INSULIN ASPART SUPPLEMENTAL SCALE SQ SCH ×4 (08:11→21:30)
[2017-05-02] MEDS: JUVEN POWDER 1 PACK G-TUBE SCH ×2 (08:11→21:00)
[2017-05-02] MEDS: SODIUM HYPOCHLORITE 0.25% 500 ML BTL TOPICAL SCH (08:12)
--- NOTE | 2017-05-02 09:32 | HHI.PR ---
Subjective Remarks Patient seen and examined today for follow-up on Tony's gangrene and unable to care for himself. Patient lying in bed resting carefully. Denies any new complaints. Discussed with plastic surgery yesterday who indicated possible plans for surgery next Friday if can be arranged. Objective Vitals Vital Signs Date Time Temp Pulse Resp B/P Pulse Ox O2 Delivery O2 Flow Rate FiO2 05/01/17 20:00 97.5 78 16 116/69 98 I/O 05/01/17 05/01/17 05/01/17 05/02/17 05/02/17 05/02/17 07:00 15:00 23:00 07:00 15:00 23:00 Intake Total 120 ml 600 ml 1000 ml Output Total 750 ml 1000 ml 800 ml Balance -630 ml -400 ml 200 ml Intake Oral 120 ml 600 ml 1000 ml Output Urine Total 750 ml 1000 ml 800 ml # Bowel Movements 1 0 Objective Remarks GENERAL: Well-developed, cachectic, in no acute distress. alert and orientated HEENT: Head is normocephalic without any lesions or masses noted. Facial features are symmetric. Eyes: Extraocular muscles are intact. Conjunctivae were clear. NECK: Supple without any masses. Trachea midline no deviation. No JVD, CARDIAC: Regular rhythm, regular rate. S1/S2 are heard. No murmurs gallops or rubs. LUNGS: Clear to auscultation bilaterally. No wheeze, rhonchi or rales. No use of accessory muscles on inspiration or expiration. ABDOMEN: Soft, nontender. Nondistended. Bowel sounds heard in all 4 quadrants. No organomegaly or masses. Negative rebound, negative guarding EXTREMITIES: No edema, pulses are equal bilaterally. No cyanosis or clubbing NEUROLOGY: Mood and affect appear appropriate. Cranial nerves II through XII grossly intact. Moving all extremities, speech is clear GENITOURINARY: Ellis catheter is in place. Patient does have bandages in place at this time. Procedures None Urinary Catheter: Yes Assessment to: Continue Ellis insert reason: Surgical/Invasive Proced Date of Insertion: April 22, 2017 Vascular Central Line Catheter: No A/P Assessment and Plan 67-year-old male brought into the hospital due to inability to care for himself. Patient with recent history of Tony's gangrene status post extensive debridement. Currently awaiting surgical wound closure by plastics/ urology. Patient may need permanent placement. Necrotizing fasciitis/ Tony's Gangrene Treated for during recent hospitalization. S/p excision and debridement with washout of necrotizing fasciitis of the perineum, scrotum, and bilateral groin region. He had bacteremia and multiple organisms growing from the wound. He completed a course of antibiotics per ID. The wound appears non-infected at this time - wound care nurse. Plastic surgery plans to close the wound with a drain next week in coordination with . Inability to care for self The patient was discharged home from the [facility]way facility and did not have running water. He had a hard time taking care of himself and was brought in to the hospital by police. - Case management following - Physical therapy/ occupational therapy. - Supportive care. 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 The patient's ostomy bag exploded prior to arrival in the emergency department and reports indicate that he was covered in feces. - continue ostomy care. - Ostomy nurse consult requested. - Stooling continue MiraLAX with as needed Diane-Colace Abnormal urinalysis. - Urine culture with contaminants. - Antibiotics discontinued - Ellis catheter changed in the emergency department - Continue to change Ellis on a monthly basis Diabetes mellitus. A1c 5.8, uncontrolled - metformin 500 mg twice a day - sliding scale insulin with Accu-Cheks. Requiring 8 units of insulin in 24 hours Right second/fifth toe amputation/ Left second amputation/ Diabetic foot ulcers - Wound care evaluated the pt on last admit and recommended Maxorb 3 days/keep heels elevated off bed. - wound care nurse following. Heel wound is improving.. Prophylaxis: SCDs and early ambulation. Continue subcutaneous heparin Pascual Landin May 02, 2017 09:32
[2017-05-02 20:00] VITALS: BP 114/48; PULSE 79; RESP 19; TEMP 98.1; O2SAT 98
[2017-05-03 08:00] VITALS: BP 121/66; PULSE 73; RESP 18; TEMP 97.1; O2SAT 99
[2017-05-03] MEDS: METOPROLOL TARTRATE 25 MG TAB PO SCH ×2 (08:37→21:25)
[2017-05-03] MEDS: HEPARIN SODIUM - SQ 10,000 UNITS/ML VIAL SQ SCH ×2 (08:37→21:25)
[2017-05-03] MEDS: PANTOPRAZOLE SOD 40 MG DELAYED RELEASE TAB PO SCH (08:37)
[2017-05-03] MEDS: POLYETHYLENE GLYCOL 17 GM PKG PO SCH (08:37)
[2017-05-03] MEDS: metFORMIN HCL 500 MG TAB PO SCH ×2 (08:37→17:00)
[2017-05-03] MEDS: JUVEN POWDER 1 PACK G-TUBE SCH ×2 (08:38→21:00)
[2017-05-03] MEDS: SODIUM HYPOCHLORITE 0.25% 500 ML BTL TOPICAL SCH (08:38)
[2017-05-03] MEDS: LIPASE/PROTEASE/AMYLASE (24,000/76,000/120,000) CAP PO SCH ×3 (08:38→17:00)
[2017-05-03] MEDS: INSULIN ASPART SUPPLEMENTAL SCALE SQ SCH ×4 (08:46→20:09)
--- NOTE | 2017-05-03 11:03 | HHI.PR ---
Subjective Remarks Patient seen and examined today for follow-up on Tony's gangrene and unable to care for himself. No change in clinical status. Awaiting surgical intervention next week Objective Vitals Vital Signs Date Time Temp Pulse Resp B/P Pulse Ox O2 Delivery O2 Flow Rate FiO2 05/03/17 08:00 97.1 73 18 121/66 99 05/02/17 20:00 98.1 79 19 114/48 98 I/O 05/02/17 05/02/17 05/02/17 05/03/17 05/03/17 05/03/17 07:00 15:00 23:00 07:00 15:00 23:00 Intake Total 120 ml 120 ml 100 ml Output Total 2400 ml 1200 ml Balance -2280 ml -1080 ml 100 ml Intake Oral 120 ml 120 ml 100 ml Output Urine Total 2400 ml 1200 ml Objective Remarks GENERAL: Well-developed, cachectic, in no acute distress. alert and orientated HEENT: Head is normocephalic without any lesions or masses noted. Facial features are symmetric. Eyes: Extraocular muscles are intact. Conjunctivae were clear. NECK: Supple without any masses. Trachea midline no deviation. No JVD, CARDIAC: Regular rhythm, regular rate. S1/S2 are heard. No murmurs gallops or rubs. LUNGS: Clear to auscultation bilaterally. No wheeze, rhonchi or rales. No use of accessory muscles on inspiration or expiration. ABDOMEN: Soft, nontender. Nondistended. Bowel sounds heard in all 4 quadrants. No organomegaly or masses. Negative rebound, negative guarding EXTREMITIES: No edema, pulses are equal bilaterally. No cyanosis or clubbing NEUROLOGY: Mood and affect appear appropriate. Cranial nerves II through XII grossly intact. Moving all extremities, speech is clear GENITOURINARY: Ellis catheter is in place. Patient does have bandages in place at this time. Procedures None Urinary Catheter: No Date of Insertion: April 22, 2017 Vascular Central Line Catheter: No A/P Assessment and Plan 67-year-old male brought into the hospital due to inability to care for himself. Patient with recent history of Tony's gangrene status post extensive debridement. Currently awaiting surgical wound closure by plastics/ urology. Patient may need permanent placement. Necrotizing fasciitis/ Tony's Gangrene Treated for during recent hospitalization. S/p excision and debridement with washout of necrotizing fasciitis of the perineum, scrotum, and bilateral groin region. He had bacteremia and multiple organisms growing from the wound. He completed a course of antibiotics per ID. The wound appears non-infected at this time - wound care nurse. Plastic surgery plans to close the wound with a drain next week in coordination with . Inability to care for self The patient was discharged home from the [facility] facility and did not have running water. He had a hard time taking care of himself and was brought in to the hospital by police. - Case management following - Physical therapy, patient walking 150 feet with standby assist rolling walker , indicating home with no PT recommendations - occupational therapy. Indication patient will need 31 bedside commode, home versus rehabilitation depending on progress - Supportive care. 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 The patient's ostomy bag exploded prior to arrival in the emergency department and reports indicate that he was covered in feces. - continue ostomy care. - Ostomy nurse consult requested. - Stooling continue MiraLAX with as needed Diane-Colace Abnormal urinalysis. - Urine culture with contaminants. - Antibiotics discontinued - Ellis catheter changed in the emergency department - Continue to change Ellis on a monthly basis Diabetes mellitus. A1c 5.8, uncontrolled - metformin 500 mg twice a day, increase to 1000 mg twice daily - sliding scale insulin with Accu-Cheks. 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 - wound care nurse following. Heel wound is improving.. Prophylaxis: SCDs and early ambulation. Continue subcutaneous heparin Pascual Landin May 03, 2017 11:03
[2017-05-03 20:00] VITALS: BP 128/69; PULSE 79; RESP 24; TEMP 98; O2SAT 98
[2017-05-04 08:00] VITALS: BP 115/67; PULSE 65; RESP 17; TEMP 97; O2SAT 98
[2017-05-04] MEDS: HEPARIN SODIUM - SQ 10,000 UNITS/ML VIAL SQ SCH ×2 (08:16→20:24)
[2017-05-04] MEDS: POLYETHYLENE GLYCOL 17 GM PKG PO SCH (08:16)
[2017-05-04] MEDS: LIPASE/PROTEASE/AMYLASE (24,000/76,000/120,000) CAP PO SCH ×3 (08:17→16:52)
[2017-05-04] MEDS: metFORMIN HCL 500 MG TAB PO SCH ×2 (08:17→16:51)
[2017-05-04] MEDS: METOPROLOL TARTRATE 25 MG TAB PO SCH ×2 (08:17→20:23)
[2017-05-04] MEDS: SODIUM HYPOCHLORITE 0.25% 500 ML BTL TOPICAL SCH (08:17)
[2017-05-04] MEDS: JUVEN POWDER 1 PACK G-TUBE SCH ×2 (08:17→20:29)
[2017-05-04] MEDS: PANTOPRAZOLE SOD 40 MG DELAYED RELEASE TAB PO SCH (08:17)
[2017-05-04] MEDS: INSULIN ASPART SUPPLEMENTAL SCALE SQ SCH ×4 (08:23→20:21)
--- NOTE | 2017-05-04 11:45 | HHI.PR ---
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 Patient is resting carefully in bed. Appears the same as has been recently changed. Awaiting surgical intervention Objective Vitals Vital Signs Date Time Temp Pulse Resp B/P Pulse Ox O2 Delivery O2 Flow Rate FiO2 05/04/17 08:00 97.0 65 17 115/67 98 05/03/17 20:00 98.0 79 24 128/69 98 I/O 05/03/17 05/03/17 05/03/17 05/04/17 05/04/17 05/04/17 07:00 15:00 23:00 07:00 15:00 23:00 Intake Total 120 ml 100 ml 2020 ml 240 ml Output Total 1200 ml 1500 ml 900 ml Balance -1080 ml 100 ml 520 ml -660 ml Intake Oral 120 ml 100 ml 2020 ml 240 ml Output Urine Total 1200 ml 1500 ml 900 ml Stool Total 0 ml 0 ml # Bowel Movements 1 Objective Remarks GENERAL: Well-developed, cachectic, in no acute distress. alert and orientated HEENT: Head is normocephalic without any lesions or masses noted. Facial features are symmetric. Eyes: Extraocular muscles are intact. Conjunctivae were clear. NECK: Supple without any masses. Trachea midline no deviation. No JVD, CARDIAC: Regular rhythm, regular rate. S1/S2 are heard. No murmurs gallops or rubs. LUNGS: Clear to auscultation bilaterally. No wheeze, rhonchi or rales. No use of accessory muscles on inspiration or expiration. ABDOMEN: Soft, nontender. Nondistended. Bowel sounds heard in all 4 quadrants. No organomegaly or masses. Negative rebound, negative guarding EXTREMITIES: No edema, pulses are equal bilaterally. No cyanosis or clubbing NEUROLOGY: Mood and affect appear appropriate. Cranial nerves II through XII grossly intact. Moving all extremities, speech is clear GENITOURINARY: Ellis catheter is in place. Patient does have bandages in place at this time. Procedures None Urinary Catheter: Yes Assessment to: Continue Ellis insert reason: Surgical/Invasive Proced Date of Insertion: April 22, 2017 Vascular Central Line Catheter: No A/P Assessment and Plan 67-year-old male brought into the hospital due to inability to care for himself. Patient with recent history of Tony's gangrene status post extensive debridement. Currently awaiting surgical wound closure by plastics/ urology. Patient may need permanent placement. Necrotizing fasciitis/ Tony's Gangrene Treated for during recent hospitalization. S/p excision and debridement with washout of necrotizing fasciitis of the perineum, scrotum, and bilateral groin region. He had bacteremia and multiple organisms growing from the wound. He completed a course of antibiotics per ID. The wound appears non-infected at this time - wound care nurse. Plastic surgery plans to close the wound with a drain next week in coordination with . Inability to care for self The patient was discharged home from the custodial facility and did not have running water. He had a hard time taking care of himself and was brought in to the hospital by police. - Case management following - Physical therapy, patient walking 150 feet with standby assist rolling walker , indicating home with no PT recommendations - occupational therapy. Indication patient will need 31 bedside commode, home versus rehabilitation depending on progress - Supportive care. 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 The patient's ostomy bag exploded prior to arrival in the emergency department and reports indicate that he was covered in feces. - continue ostomy care. - Ostomy nurse consult requested. - Stooling continue MiraLAX with as needed Diane-Colace Abnormal urinalysis. - Urine culture with contaminants. - Antibiotics discontinued - Ellis catheter changed in the emergency department - Continue to change Ellis on a monthly basis Diabetes mellitus. A1c 5.8, uncontrolled - metformin 1000 mg twice daily - sliding scale insulin with Accu-Cheks. 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 - wound care nurse following. Heel wound is improving.. Prophylaxis: SCDs and early ambulation. Continue subcutaneous heparin Discharge Planning Case management for discharge planning Once cleared by plastics, urology. Pascual Landin May 04, 2017 11:45
[2017-05-04 20:00] VITALS: BP 127/71; PULSE 77; RESP 16; TEMP 97.2; O2SAT 96
[2017-05-05 08:52] VITALS: BP 122/70; PULSE 60; RESP 19; TEMP 96.4; O2SAT 97
[2017-05-05] MEDS: JUVEN POWDER 1 PACK G-TUBE SCH ×2 (08:59→21:00)
[2017-05-05] MEDS: POLYETHYLENE GLYCOL 17 GM PKG PO SCH (09:00)
[2017-05-05] MEDS: metFORMIN HCL 500 MG TAB PO SCH ×2 (09:00→17:03)
[2017-05-05] MEDS: LIPASE/PROTEASE/AMYLASE (24,000/76,000/120,000) CAP PO SCH ×3 (09:00→17:24)
[2017-05-05] MEDS: PANTOPRAZOLE SOD 40 MG DELAYED RELEASE TAB PO SCH (09:01)
[2017-05-05] MEDS: METOPROLOL TARTRATE 25 MG TAB PO SCH ×2 (09:01→22:14)
[2017-05-05] MEDS: HEPARIN SODIUM - SQ 10,000 UNITS/ML VIAL SQ SCH ×2 (09:01→22:14)
[2017-05-05] MEDS: SODIUM HYPOCHLORITE 0.25% 500 ML BTL TOPICAL SCH (09:03)
[2017-05-05] MEDS: INSULIN ASPART SUPPLEMENTAL SCALE SQ SCH ×4 (09:11→22:21)
--- NOTE | 2017-05-05 11:52 | HHI.PR ---
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 Patient is resting comfortably in bed at this time. Awaiting surgical day to be scheduled by plastics and urology Objective Vitals Vital Signs Date Time Temp Pulse Resp B/P Pulse Ox O2 Delivery O2 Flow Rate FiO2 05/05/17 08:52 96.4 60 19 122/70 97 05/04/17 20:00 97.2 77 16 127/71 96 I/O 05/04/17 05/04/17 05/04/17 05/05/17 05/05/17 05/05/17 07:00 15:00 23:00 07:00 15:00 23:00 Intake Total 240 ml 1440 ml 480 ml 300 ml Output Total 900 ml 2000 ml 1500 ml Balance -660 ml -560 ml -1020 ml 300 ml Intake Oral 240 ml 1440 ml 480 ml 300 ml Output Urine Total 900 ml 2000 ml 1500 ml Stool Total 0 ml 0 ml 0 ml # Bowel Movements 1 Objective Remarks GENERAL: Well-developed, cachectic, in no acute distress. alert and orientated HEENT: Head is normocephalic without any lesions or masses noted. Facial features are symmetric. Eyes: Extraocular muscles are intact. Conjunctivae were clear. NECK: Supple without any masses. Trachea midline no deviation. No JVD, CARDIAC: Regular rhythm, regular rate. S1/S2 are heard. No murmurs gallops or rubs. LUNGS: Clear to auscultation bilaterally. No wheeze, rhonchi or rales. No use of accessory muscles on inspiration or expiration. ABDOMEN: Soft, nontender. Nondistended. Bowel sounds heard in all 4 quadrants. No organomegaly or masses. Negative rebound, negative guarding EXTREMITIES: No edema, pulses are equal bilaterally. No cyanosis or clubbing NEUROLOGY: Mood and affect appear appropriate. Cranial nerves II through XII grossly intact. Moving all extremities, speech is clear GENITOURINARY: Ellis catheter is in place. Patient does have bandages in place at this time. Procedures None Urinary Catheter: Yes Assessment to: Continue Ellis insert reason: Surgical/Invasive Proced Date of Insertion: April 22, 2017 A/P Assessment and Plan 67-year-old male brought into the hospital due to inability to care for himself. Patient with recent history of Tony's gangrene status post extensive debridement. Currently awaiting surgical wound closure by plastics/ urology. Patient may need permanent placement. Necrotizing fasciitis/ Tony's Gangrene Treated for during recent hospitalization. S/p excision and debridement with washout of necrotizing fasciitis of the perineum, scrotum, and bilateral groin region. He had bacteremia and multiple organisms growing from the wound. He completed a course of antibiotics per ID. The wound appears non-infected at this time - wound care nurse. Plastic surgery plans to close the wound with a drain this week in coordination with . Inability to care for self The patient was discharged home from the snf facility and did not have running water. He had a hard time taking care of himself and was brought in to the hospital by police. - Case management following - Physical therapy, patient walking 150 feet with standby assist rolling walker , indicating home with no PT recommendations - occupational therapy. Indication patient will need 31 bedside commode, home versus rehabilitation depending on progress - Supportive care. 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 The patient's ostomy bag exploded prior to arrival in the emergency department and reports indicate that he was covered in feces. - continue ostomy care. - Ostomy nurse consult requested. - Stooling continue MiraLAX with as needed Diane-Colace Abnormal urinalysis. - Urine culture with contaminants. - Antibiotics discontinued - Ellis catheter changed in the emergency department - Continue to change Ellis on a monthly basis Diabetes mellitus. A1c 5.8, uncontrolled - metformin 1000 mg twice daily - sliding scale insulin with Accu-Cheks. 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 - wound care nurse following. Heel wound is improving.. Prophylaxis: SCDs and early ambulation. Continue subcutaneous heparin Discharge Planning Case management for discharge planning Once cleared by plastics, urology. Pascual Landin May 05, 2017 11:52
[2017-05-05 20:00] VITALS: BP 120/60; PULSE 79; RESP 19; TEMP 96.8; O2SAT 98
[2017-05-06] VITALS: BP 112/55; PULSE 76; RESP 19; TEMP 98; O2SAT 98
[2017-05-06] MEDS ORDERED: METOPROLOL TARTRATE 25 MG TAB PO PRN (02:45)
[2017-05-06] MEDS ORDERED: LACTATED RINGER'S 1000 ML IV PRN (02:45)
[2017-05-06] MEDS ORDERED: POVIDONE IODINE 5% (ANTISEPSIS KIT) 4 APPLICATIONS EACH NARE PRN (02:45)
[2017-05-06] MEDS ORDERED: CHLORHEXIDINE GLUCONATE 2 % 1 PACK (2 CLOTHS) TOPICAL PRN (02:45)
[2017-05-06] MEDS: INSULIN ASPART SUPPLEMENTAL SCALE SQ SCH ×4 (06:30→20:34)
[2017-05-06 08:00] VITALS: BP 116/60; PULSE 73; RESP 18; TEMP 98; O2SAT 96
[2017-05-06] MEDS: JUVEN POWDER 1 PACK G-TUBE SCH ×2 (08:47→21:00)
[2017-05-06] MEDS: LIPASE/PROTEASE/AMYLASE (24,000/76,000/120,000) CAP PO SCH ×3 (08:49→17:40)
[2017-05-06] MEDS: metFORMIN HCL 500 MG TAB PO SCH (08:49)
[2017-05-06] MEDS: POLYETHYLENE GLYCOL 17 GM PKG PO SCH (08:49)
[2017-05-06] MEDS: HEPARIN SODIUM - SQ 10,000 UNITS/ML VIAL SQ SCH ×2 (08:49→20:34)
[2017-05-06] MEDS: METOPROLOL TARTRATE 25 MG TAB PO SCH ×2 (08:54→20:33)
[2017-05-06] MEDS: PANTOPRAZOLE SOD 40 MG DELAYED RELEASE TAB PO SCH (08:54)
[2017-05-06] MEDS: SODIUM HYPOCHLORITE 0.25% 500 ML BTL TOPICAL SCH (09:00)
--- NOTE | 2017-05-06 11:20 | HHI.PR ---
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 Patient is resting comfortably in bed at this time. Awaiting surgical procedure later today. Objective Vital Signs Date Time Temp Pulse Resp B/P Pulse Ox O2 Delivery O2 Flow Rate FiO2 05/06/17 08:00 98.0 73 18 116/60 96 05/06/17 00:00 98.0 76 19 112/55 98 05/05/17 20:00 96.8 79 19 120/60 98 I/O 05/05/17 05/05/17 05/05/17 05/06/17 05/06/17 05/06/17 07:00 15:00 23:00 07:00 15:00 23:00 Intake Total 480 ml 600 ml 360 ml 120 ml Output Total 1500 ml 1200 ml 1000 ml 1900 ml Balance -1020 ml -600 ml -640 ml -1780 ml Intake Oral 480 ml 600 ml 360 ml 120 ml IV Total 0 ml 0 ml Output Urine Total 1500 ml 1000 ml 1000 ml 1900 ml Stool Total 0 ml 200 ml 0 ml # Bowel Movements 0 Imaging Last Impressions Chest X-Ray 04/22/17 0000 Signed Impressions: Service Date/Time: Saturday, April 22, 2017 13:57 - CONCLUSION: No acute cardiomegaly disease. Sudhir Velez MD Procedures No procedures. Other Results No new laboratory Objective Remarks GENERAL: Well-developed, cachectic, in no acute distress. alert and oriented HEENT: Head is normocephalic NECK: Supple without any masses. Trachea midline no deviation. No JVD, CARDIAC: Regular rhythm, regular rate. S1/S2 are heard. No murmurs gallops or rubs. LUNGS: Clear to auscultation bilaterally. ABDOMEN: Soft, nontender. Nondistended. Bowel sounds heard in all 4 quadrants. EXTREMITIES: No edema, pulses are equal bilaterally. No cyanosis or clubbing NEUROLOGY: Mood and affect appear appropriate. no focal deficits. GENITOURINARY: Ellis catheter is in place. Patient does have bandages in place at this time. Medications and IVs Current Medications Medications (Trade) Dose Ordered Sig/Jeremias Route Start Time Stop Time Status Last Admin (Lopressor) 25 mg Q12HR PO 04/22/17 21:00 05/06/17 08:54 (Creon [id number]) 2 cap TID PO 04/22/17 18:00 05/05/17 17:24 (Protonix) 40 mg DAILY PO 04/23/17 09:00 05/06/17 08:54 (Tylenol) 650 mg Q4H PRN PO 04/22/17 13:45 (Tylenol) 650 mg Q6H PRN PO 04/22/17 13:45 (Roxicodone) 5 mg Q4H PRN PO 04/22/17 13:45 (D50w (Vial) Inj) 50 ml UNSCH PRN IV 04/22/17 19:15 (Glucagon Inj) 1 mg UNSCH PRN OTHER 04/22/17 19:15 (Diane-Colace) 2 tab BID PRN PO 04/24/17 13:00 (Miralax) 17 gm DAILY PO 04/24/17 13:00 05/04/17 08:16 (Heparin Inj) 5,000 units Q12HR SQ 04/25/17 21:00 05/05/17 22:14 (Dakin'S 0.25% Soln) W-D DRESSING TO SCRO... DAILY TOPICAL 04/28/17 17:00 05/06/17 09:00 (Thomas Powder) 1 pack BID G-TUBE 05/01/17 21:00 05/04/17 20:29 (Zofran Odt) 4 mg Q6H PRN PO 05/01/17 11:30 Metformin HCl 1000 mg 1,000 mg BIDPC PO 05/03/17 18:00 05/05/17 09:00 (Lr 1000 ml Inj) 1,000 ml @ 30 mls/hr Q24H PRN IV 05/06/17 02:45 05/09/17 02:44 A/P Assessment and Plan 67-year-old male brought into the hospital due to inability to care for himself. Patient with recent history of Tony's gangrene status post extensive debridement. Currently awaiting surgical wound closure by plastics/ urology. Patient may need permanent placement. Necrotizing fasciitis/ Tony's Gangrene Treated for during recent hospitalization. S/p excision and debridement with washout of necrotizing fasciitis of the perineum, scrotum, and bilateral groin region. He had bacteremia and multiple organisms growing from the wound. He completed a course of antibiotics per ID. The wound appears non-infected at this time - wound care nurse. Plastic surgery plans to close the wound with a drain this week in coordination with . probable later today. Inability to care for self The patient was discharged home from the nursing home facility and did not have running water. He had a hard time taking care of himself and was brought in to the hospital by police. - Case management following - Physical therapy, patient walking 150 feet with standby assist rolling walker , indicating home with no PT recommendations - occupational therapy. Indication patient will need 31 bedside commode, home versus rehabilitation depending on progress - Supportive care. 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 The patient's ostomy bag exploded prior to arrival in the emergency department and reports indicate that he was covered in feces. - continue ostomy care. - Ostomy nurse consult requested. - Stooling continue MiraLAX with as needed Diane-Colace Abnormal urinalysis. - Urine culture with contaminants. - Antibiotics discontinued - Ellis catheter changed in the emergency department - Continue to change Lelis on a monthly basis Diabetes mellitus. A1c 5.8, uncontrolled - Metformin discontinued to avoid Hypoglycemia, continue sliding scale. 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 - wound care nurse following. Heel wound is improving.. Prophylaxis: SCDs and early ambulation. Continue subcutaneous heparin Discharge Planning Once cleared by specialists. Erich Zuniga MD May 06, 2017 11:20 Prophylaxis: SCDs and early ambulation. Continue subcutaneous heparin Erich Zuniga MD May 06, 2017 11:20
[2017-05-06] MEDS ORDERED: CIPROFLOXACIN 400 MG PREMIX 200 ML ONE (11:46)
[2017-05-06 12:00] VITALS: BP 119/63; PULSE 65; RESP 18; TEMP 97.3; O2SAT 96
[2017-05-06] MEDS ORDERED: BUPIVACAINE/EPINEPHRINE 0.5% PF 30 ML VIAL ONE (12:03)
--- NOTE | 2017-05-06 13:30 | HHI.PR ---
Immediate Post Op Note Procedure Date: May 06, 2017 Pre Op Diagnosis: (1) Open wound of scrotum Post Op Diagnosis: (1) Open wound of scrotum Surgeon: Brittney Tobin MD, Norbert Cassidy MD Senior Business Manager(s): Holly Baum PA-C Procedure: Debridement of scrotal wound. Closure of scrotal wound with local flap and allograft. Complications: n/a Specimen(s) removed: n/a Estimated blood loss: 10mL Anesthesia: General Drains: None Tourniquet time (min at mmHg) n/a Patient to: PACU Patient Condition: Good Date/Time of Procedure: SEE SURGICAL CARE RECORD Vianney Baum May 06, 2017 13:30
[2017-05-06] MEDS ORDERED: DO NOT ADM ANY ANTICOAGULANT DRUGS PRN (13:42)
[2017-05-06] MEDS ORDERED: PROPOFOL 200 MG/20 ML AMP IV ONE (14:42)
[2017-05-06] MEDS ORDERED: ONDANSETRON HCL 4 MG/2 ML VIAL IV PUSH ONE (14:42)
[2017-05-06 16:00] VITALS: BP 119/63; PULSE 71; RESP 18; TEMP 97; O2SAT 96
[2017-05-06 20:42] VITALS: BP 112/58; PULSE 77; RESP 18; TEMP 97.3; O2SAT 99
[2017-05-06 21:09] VITALS: O2SAT 99
[2017-05-06] MEDS: CIPROFLOXACIN 400 MG PREMIX 200 ML IV SCH (22:52)
--- NOTE | 2017-05-06 23:10 | MP ---
cc: JANETH TOBIN M.D. DATE OF SURGERY: 05/06/2017 PREOPERATIVE DIAGNOSIS: Open wound of scrotum secondary to Tony's gangrene. POSTOPERATIVE DIAGNOSIS: Open wound of scrotum secondary to Tony's gangrene. OPERATION: 1. Excisional debridement of skin, subcutaneous tissue of open scrotal wound. 2. Reconstruction of scrotal wound with local advancement flap. 3. Closure of open scrotal wound with allograft, 7 x 10 cm. ANESTHESIA: General. COSURGEONS: Janeth Tobin MD. Norbert Cassidy MD. THERMODYNAMICS PROFESSOR: Holly Baum PA-C INDICATION 67-year-old male with history for Tony's gangrene within the last several months. The patient ended up having both testicles exposed as well as loss of scrotal tissue. FINDINGS: At the completion of the procedure, the remaining scrotal tissue was advanced as a flap. It left a defect of approximately 7 x 10 cm which was covered with ACell allograft. Operative time was approximate 1 hour 15 minutes PROCEDURE The patient was seen preoperatively where the site and side were identified. The patient was taken to the operating room, placed in a lithotomy position. The scrotal and penile area and adjacent skin was prepped with Hibiclens and Betadine and draped in usual sterile fashion. Attention was first turned to the periphery of the wound which debrided sharply circumferentially. This was approximately 25 cm in length. The flaps were elevated using cautery. Small vessels were cauterized with bipolar cautery. The tissue was advanced as far as possible. The base of the wound in the scrotum were curetted of some of the surface granulation tissue and the wound was then closed with some of the scar tissue being closed with 3-0 Vicryl. The skin was then closed with 2-0 nylon interrupted and vertical mattress sutures. This left a defect and exposed the testes approximately 7 x 10 cm. A portion of ACell, the same size was placed into the wound and secured with the surgical clips. The ACell was secured with Adaptic, K-Y Jelly, 4x4s and a sticky drape. Once this was in place the suture lines had been dressed with povidone-iodine ointment. The patient was taken from the operating room to the recovery room in satisfactory condition having tolerated the procedure well. MD TIFFANY Crow/DESEAN /1:36 PM /11:02 PM
[2017-05-07 00:19] VITALS: BP 105/56; PULSE 70; RESP 18; TEMP 96.9; O2SAT 97
[2017-05-07] MEDS: INSULIN ASPART SUPPLEMENTAL SCALE SQ SCH ×4 (06:13→20:23)
[2017-05-07 06:19] LABS: AUTOMATED NEUTROPHIL # 10.1 TH/MM3 (1.8-7.7); BASOPHIL # 0.1 TH/MM3 (0-0.2); BASOPHIL % 0.8 % (0.0-2.0); EOSINOPHIL # 0.1 TH/MM3 (0-0.4); HEMATOCRIT 36.2 % (39.0-51.0); HEMO FLAGS DIFF FINAL; LYMPH % 17.6 % (9.0-44.0); LYMPHOCYTE # 2.4 TH/MM3 (1.0-4.8); MEAN CELL VOLUME 90.4 FL (80.0-100.0); MEAN CORPUSCULAR HEMOGLOBIN 29.2 PG (27.0-34.0); MEAN CORPUSCULAR HGB CONC 32.3 % (32.0-36.0); MONO % 7.6 % (0.0-8.0); PLATELET COUNT 272 TH/MM3 (150-450); RED CELL DISTRIBUTION WIDTH 15.9 % (11.6-17.2); WHITE BLOOD COUNT 13.9 TH/MM3 (4.0-11.0)
[2017-05-07 06:45] LABS: BICARBONATE 25.2 MEQ/L (21.0-32.0); MAGNESIUM 1.8 MG/DL (1.5-2.5); POTASSIUM 3.9 MEQ/L (3.5-5.1)
[2017-05-07 08:00] VITALS: BP 122/60; PULSE 72; RESP 18; TEMP 97.4; O2SAT 99
[2017-05-07 08:19] VITALS: O2SAT 99
[2017-05-07] MEDS: PANTOPRAZOLE SOD 40 MG DELAYED RELEASE TAB PO SCH (08:23)
[2017-05-07] MEDS: LIPASE/PROTEASE/AMYLASE (24,000/76,000/120,000) CAP PO SCH ×3 (08:23→16:19)
[2017-05-07] MEDS: METOPROLOL TARTRATE 25 MG TAB PO SCH ×2 (08:23→19:26)
[2017-05-07] MEDS: POLYETHYLENE GLYCOL 17 GM PKG PO SCH (08:23)
[2017-05-07] MEDS: HEPARIN SODIUM - SQ 10,000 UNITS/ML VIAL SQ SCH ×2 (08:23→19:26)
[2017-05-07] MEDS: SODIUM HYPOCHLORITE 0.25% 500 ML BTL TOPICAL SCH (08:24)
[2017-05-07] MEDS: JUVEN POWDER 1 PACK G-TUBE SCH ×2 (08:26→19:30)
[2017-05-07] MEDS: CIPROFLOXACIN 400 MG PREMIX 200 ML IV SCH ×2 (11:33→23:18)
[2017-05-07 12:00] VITALS: BP_SYST 150; PULSE 78; RESP 18; TEMP 96.9; O2SAT 97
[2017-05-07 16:00] VITALS: BP 112/60; PULSE 79; RESP 19; TEMP 97.5; O2SAT 98
--- NOTE | 2017-05-07 16:38 | PD.PLAS.PN ---
Subjective Remarks Patient is sitting in chair. He denies any pain or discomfort. He is 1 day status post repair of scrotal wound with local flap and allograft. Objective Vital Signs Date Time Temp Pulse Resp B/P Pulse Ox O2 Delivery O2 Flow Rate FiO2 05/07/17 16:00 97.5 79 19 112/60 98 05/07/17 12:00 96.9 78 18 150/ 97 05/07/17 08:19 99 05/07/17 08:00 97.4 72 18 122/60 99 05/07/17 00:19 96.9 70 18 105/56 97 05/06/17 21:09 99 21 05/06/17 20:42 97.3 77 18 112/58 99 I/O 05/06/17 05/06/17 05/06/17 05/07/17 05/07/17 05/07/17 07:00 15:00 23:00 07:00 15:00 23:00 Intake Total 120 ml 700 ml 0 ml 200 ml 1260 ml Output Total 1900 ml 1220 ml 900 ml 450 ml 1800 ml Balance -1780 ml -520 ml -900 ml 200 ml 810 ml -1800 ml Intake Oral 120 ml 0 ml 1080 ml IV Total 0 ml 200 ml 0 ml 200 ml 180 ml Other 500 ml Output Urine Total 1900 ml 1200 ml 900 ml 350 ml 1800 ml Stool Total 0 ml 100 ml Estimated Blood Loss 20 ml # Bowel Movements 0 0 Laboratory Tests Test 05/07/17 05:21 White Blood Count 13.9 Red Blood Count 4.00 Hemoglobin 11.7 Hematocrit 36.2 Mean Corpuscular Volume 90.4 Mean Corpuscular Hemoglobin 29.2 Mean Corpuscular Hemoglobin 32.3 Concent Red Cell Distribution Width 15.9 Platelet Count 272 Mean Platelet Volume 7.8 Neutrophils (%) (Auto) 73.0 Lymphocytes (%) (Auto) 17.6 Monocytes (%) (Auto) 7.6 Eosinophils (%) (Auto) 1.0 Basophils (%) (Auto) 0.8 Neutrophils # (Auto) 10.1 Lymphocytes # (Auto) 2.4 Monocytes # (Auto) 1.1 Eosinophils # (Auto) 0.1 Basophils # (Auto) 0.1 CBC Comment DIFF FINAL Differential Comment Sodium Level 135 Potassium Level 3.9 Chloride Level 100 Carbon Dioxide Level 25.2 Anion Gap 10 Blood Urea Nitrogen 35 Creatinine 0.81 Estimat Glomerular Filtration 95 Rate Random Glucose 226 Calcium Level 8.7 Phosphorus Level 3.6 Magnesium Level 1.8 Result Diagram: 05/07/1752005/07/17520 Exam Findings Dressing is in place. It is not removed for exam. Gauze is visualized below the clear dressing, it is moistened with yellow/serious drainage, but is not saturated. There is no erythema to surrounding skin or other evidence of infection. Assessment and Plan Diagnosis: (1) Open wound of scrotum Assessment and Plan Patient is progressing well postoperatively. We will continue to monitor the status of the dressing. Discussed with Dr. Tobin. Vianney Baum May 07, 2017 16:38
--- NOTE | 2017-05-07 17:51 | HHI.PR ---
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 status post Excisional debridement of skin, subcutaneous tissue of open scrotal wound, reconstruction of scrotal wound wtih local advancement flap, Closure of open scrotal wound with allograft 7 x 10 cms 05/06/17 Objective Vital Signs Date Time Temp Pulse Resp B/P Pulse Ox O2 Delivery O2 Flow Rate FiO2 05/07/17 16:00 97.5 79 19 112/60 98 05/07/17 12:00 96.9 78 18 150/ 97 05/07/17 08:19 99 05/07/17 08:00 97.4 72 18 122/60 99 05/07/17 00:19 96.9 70 18 105/56 97 05/06/17 21:09 99 21 05/06/17 20:42 97.3 77 18 112/58 99 I/O 05/06/17 05/06/17 05/06/17 05/07/17 05/07/17 05/07/17 07:00 15:00 23:00 07:00 15:00 23:00 Intake Total 120 ml 700 ml 0 ml 200 ml 1260 ml Output Total 1900 ml 1220 ml 900 ml 450 ml 1800 ml Balance -1780 ml -520 ml -900 ml 200 ml 810 ml -1800 ml Intake Oral 120 ml 0 ml 1080 ml IV Total 0 ml 200 ml 0 ml 200 ml 180 ml Other 500 ml Output Urine Total 1900 ml 1200 ml 900 ml 350 ml 1800 ml Stool Total 0 ml 100 ml Estimated Blood Loss 20 ml # Bowel Movements 0 0 Result Diagram: 05/07/17 0521 05/07/17 0521 Imaging Last Impressions Chest X-Ray 04/22/17 0000 Signed Impressions: Service Date/Time: Saturday, April 22, 2017 13:57 - CONCLUSION: No acute cardiomegaly disease. 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 status post Excisional debridement of skin, subcutaneous tissue of open scrotal wound, reconstruction of scrotal wound wtih local advancement flap, Closure of open scrotal wound with allograft 7 x 10 cms 05/06/17 Other Results Laboratory Tests Test 05/07/17 05:21 White Blood Count 13.9 TH/MM3 Red Blood Count 4.00 MIL/MM3 Hemoglobin 11.7 GM/DL Hematocrit 36.2 % Mean Corpuscular Volume 90.4 FL Mean Corpuscular Hemoglobin 29.2 PG Mean Corpuscular Hemoglobin 32.3 % Concent Red Cell Distribution Width 15.9 % Platelet Count 272 TH/MM3 Mean Platelet Volume 7.8 FL Neutrophils (%) (Auto) 73.0 % Lymphocytes (%) (Auto) 17.6 % Monocytes (%) (Auto) 7.6 % Eosinophils (%) (Auto) 1.0 % Basophils (%) (Auto) 0.8 % Neutrophils # (Auto) 10.1 TH/MM3 Lymphocytes # (Auto) 2.4 TH/MM3 Monocytes # (Auto) 1.1 TH/MM3 Eosinophils # (Auto) 0.1 TH/MM3 Basophils # (Auto) 0.1 TH/MM3 CBC Comment DIFF FINAL Differential Comment Sodium Level 135 MEQ/L Potassium Level 3.9 MEQ/L Chloride Level 100 MEQ/L Carbon Dioxide Level 25.2 MEQ/L Anion Gap 10 MEQ/L Blood Urea Nitrogen 35 MG/DL Creatinine 0.81 MG/DL Estimat Glomerular Filtration 95 ML/MIN Rate Random Glucose 226 MG/DL Calcium Level 8.7 MG/DL Phosphorus Level 3.6 MG/DL Magnesium Level 1.8 MG/DL Objective Remarks GENERAL: Well-developed, cachectic, in no acute distress. alert and orientated HEENT: Head is normocephalic without any lesions or masses noted. Facial features are symmetric. Eyes: Extraocular muscles are intact. Conjunctivae were clear. NECK: Supple without any masses. Trachea midline no deviation. No JVD, CARDIAC: Regular rhythm, regular rate. S1/S2 are heard. No murmurs gallops or rubs. LUNGS: Clear to auscultation bilaterally. No wheeze, rhonchi or rales. No use of accessory muscles on inspiration or expiration. ABDOMEN: Soft, nontender. Nondistended. Bowel sounds heard in all 4 quadrants. No organomegaly or masses. Negative rebound, negative guarding EXTREMITIES: No edema, pulses are equal bilaterally. No cyanosis or clubbing NEUROLOGY: Mood and affect appear appropriate. Cranial nerves II through XII grossly intact. Moving all extremities, speech is clear GENITOURINARY: Ellis catheter is in place. Patient does have bandages in place at this time. Medications and IVs Current Medications Medications (Trade) Dose Ordered Sig/Jeremias Route Start Time Stop Time Status Last Admin (Lopressor) 25 mg Q12HR PO 04/22/17 21:00 05/07/17 08:23 (Creon 24-76-120) 2 cap TID PO 04/22/17 18:00 05/07/17 16:19 (Protonix) 40 mg DAILY PO 04/23/17 09:00 05/07/17 08:23 (Tylenol) 650 mg Q4H PRN PO 04/22/17 13:45 (Tylenol) 650 mg Q6H PRN PO 04/22/17 13:45 (Roxicodone) 5 mg Q4H PRN PO 04/22/17 13:45 (D50w (Vial) Inj) 50 ml UNSCH PRN IV 04/22/17 19:15 (Glucagon Inj) 1 mg UNSCH PRN OTHER 04/22/17 19:15 (Diane-Colace) 2 tab BID PRN PO 04/24/17 13:00 (Miralax) 17 gm DAILY PO 04/24/17 13:00 05/07/17 08:23 (Heparin Inj) 5,000 units Q12HR SQ 04/25/17 21:00 05/07/17 08:23 (Dakin'S 0.25% Soln) W-D DRESSING TO SCRO... DAILY TOPICAL 04/28/17 17:00 05/06/17 09:00 (Thomas Powder) 1 pack BID G-TUBE 05/01/17 21:00 05/04/17 20:29 Ondansetron HCl 4 mg 4 mg Q6H PRN PO 05/01/17 11:30 Lactated Ringer's 1,000 ml @ 30 mls/hr Q24H PRN IV 05/06/17 02:45 05/09/17 02:44 (Cipro 400 Mg Premix) 200 ml @ 200 mls/hr Q12H IV 05/06/17 23:00 05/09/17 22:59 05/07/17 11:33 A/P Assessment and Plan 67-year-old male brought into the hospital due to inability to care for himself. Patient with recent history of Tony's gangrene status post extensive debridement. Currently awaiting surgical wound closure by plastics/ urology. Patient may need permanent placement. Necrotizing fasciitis/ Tony's Gangrene Treated for during recent hospitalization. S/p excision and debridement with washout of necrotizing fasciitis of the perineum, scrotum, and bilateral groin region. He had bacteremia and multiple organisms growing from the wound. He completed a course of antibiotics per ID. 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 He had a hard time taking care of himself and was brought in to the hospital by police. - Case management following - Physical therapy, patient walking 150 feet with standby assist rolling walker , indicating home with no PT recommendations - occupational therapy. Indication patient will need 31 bedside commode, home versus rehabilitation depending on progress - Supportive care. 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 The patient's ostomy bag exploded prior to arrival in the emergency department and reports indicate that he was covered in feces. - continue ostomy care. - Ostomy nurse consult requested. - Stooling continue MiraLAX with as needed Diane-Colace Abnormal urinalysis. - Urine culture with contaminants. - Antibiotics discontinued - Ellis catheter changed in the emergency department - Continue to change Ellis on a monthly basis Diabetes mellitus. A1c 5.8, uncontrolled - metformin 1000 mg twice daily - sliding scale insulin with Accu-Cheks. 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 - wound care nurse following. Heel wound is improving.. Prophylaxis: SCDs and early ambulation. Continue subcutaneous heparin Discharge Planning Once cleared by specialists. Erich Zuniga MD May 07, 2017 17:51
[2017-05-07 20:00] VITALS: BP 116/56; PULSE 82; RESP 17; TEMP 98.6; O2SAT 96
[2017-05-08 00:57] VITALS: BP 122/59; PULSE 73; RESP 17; TEMP 96.4; O2SAT 97
[2017-05-08] MEDS: INSULIN ASPART SUPPLEMENTAL SCALE SQ SCH ×4 (05:49→19:41)
[2017-05-08 08:00] VITALS: BP 137/62; PULSE 67; RESP 17; TEMP 96.5; O2SAT 98
[2017-05-08] MEDS: JUVEN POWDER 1 PACK G-TUBE SCH ×2 (09:00→19:08)
[2017-05-08] MEDS: SODIUM HYPOCHLORITE 0.25% 500 ML BTL TOPICAL SCH (09:00)
[2017-05-08] MEDS: PANTOPRAZOLE SOD 40 MG DELAYED RELEASE TAB PO SCH (10:07)
[2017-05-08] MEDS: CIPROFLOXACIN 400 MG PREMIX 200 ML IV SCH ×2 (10:07→23:05)
[2017-05-08] MEDS: POLYETHYLENE GLYCOL 17 GM PKG PO SCH (10:07)
[2017-05-08] MEDS: LIPASE/PROTEASE/AMYLASE (24,000/76,000/120,000) CAP PO SCH ×3 (10:07→16:57)
[2017-05-08] MEDS: METOPROLOL TARTRATE 25 MG TAB PO SCH ×2 (10:07→19:08)
[2017-05-08] MEDS: HEPARIN SODIUM - SQ 10,000 UNITS/ML VIAL SQ SCH ×2 (10:07→19:08)
--- NOTE | 2017-05-08 11:27 | HHI.PR ---
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 Objective Vital Signs Date Time Temp Pulse Resp B/P Pulse Ox O2 Delivery O2 Flow Rate FiO2 05/08/17 08:00 96.5 67 17 137/62 98 05/08/17 00:57 96.4 73 17 122/59 97 05/07/17 20:00 98.6 82 17 116/56 96 05/07/17 16:00 97.5 79 19 112/60 98 05/07/17 12:00 96.9 78 18 150/ 97 I/O 05/07/17 05/07/17 05/07/17 05/08/17 05/08/17 05/08/17 07:00 15:00 23:00 07:00 15:00 23:00 Intake Total 200 ml 1260 ml 780 ml 480 ml Output Total 450 ml 3600 ml 1000 ml Balance 200 ml 810 ml -2820 ml -520 ml Intake Oral 1080 ml 780 ml 280 ml IV Total 200 ml 180 ml 200 ml Output Urine Total 350 ml 3600 ml 1000 ml Stool Total 100 ml 0 ml 0 ml # Bowel Movements 0 Result Diagram: 05/07/17 0521 05/07/17 0521 Imaging Last Impressions Chest X-Ray 04/22/17 0000 Signed Impressions: Service Date/Time: Saturday, April 22, 2017 13:57 - CONCLUSION: No acute cardiomegaly disease. 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 status post Excisional debridement of skin, subcutaneous tissue of open scrotal wound, reconstruction of scrotal wound wtih local advancement flap, Closure of open scrotal wound with allograft 7 x 10 cms 05/06/17 Other Results Laboratory Tests Test 05/07/17 05:21 White Blood Count 13.9 TH/MM3 Red Blood Count 4.00 MIL/MM3 Hemoglobin 11.7 GM/DL Hematocrit 36.2 % Mean Corpuscular Volume 90.4 FL Mean Corpuscular Hemoglobin 29.2 PG Mean Corpuscular Hemoglobin 32.3 % Concent Red Cell Distribution Width 15.9 % Platelet Count 272 TH/MM3 Mean Platelet Volume 7.8 FL Neutrophils (%) (Auto) 73.0 % Lymphocytes (%) (Auto) 17.6 % Monocytes (%) (Auto) 7.6 % Eosinophils (%) (Auto) 1.0 % Basophils (%) (Auto) 0.8 % Neutrophils # (Auto) 10.1 TH/MM3 Lymphocytes # (Auto) 2.4 TH/MM3 Monocytes # (Auto) 1.1 TH/MM3 Eosinophils # (Auto) 0.1 TH/MM3 Basophils # (Auto) 0.1 TH/MM3 CBC Comment DIFF FINAL Differential Comment Sodium Level 135 MEQ/L Potassium Level 3.9 MEQ/L Chloride Level 100 MEQ/L Carbon Dioxide Level 25.2 MEQ/L Anion Gap 10 MEQ/L Blood Urea Nitrogen 35 MG/DL Creatinine 0.81 MG/DL Estimat Glomerular Filtration 95 ML/MIN Rate Random Glucose 226 MG/DL Calcium Level 8.7 MG/DL Phosphorus Level 3.6 MG/DL Magnesium Level 1.8 MG/DL Objective Remarks GENERAL: Well-developed, cachectic, in no acute distress. alert and oriented HEENT: Head is normocephalic NECK: Supple without any masses. Trachea midline no deviation. No JVD, CARDIAC: Regular rhythm, regular rate. S1/S2 are heard. No murmurs gallops or rubs. LUNGS: Clear to auscultation bilaterally. ABDOMEN: Soft, nontender. Nondistended. Bowel sounds heard in all 4 quadrants. EXTREMITIES: No edema, pulses are equal bilaterally. No cyanosis or clubbing NEUROLOGY: Mood and affect appear appropriate. no focal deficits. GENITOURINARY: Ellis catheter is in place. Patient does have bandages in place at this time. Medications and IVs Current Medications Medications (Trade) Dose Ordered Sig/Jeremias Route Start Time Stop Time Status Last Admin (Lopressor) 25 mg Q12HR PO 04/22/17 21:00 05/08/17 10:07 (Creon 24-76-120) 2 cap TID PO 04/22/17 18:00 05/08/17 10:07 (Protonix) 40 mg DAILY PO 04/23/17 09:00 05/08/17 10:07 (Tylenol) 650 mg Q4H PRN PO 04/22/17 13:45 (Tylenol) 650 mg Q6H PRN PO 04/22/17 13:45 (Roxicodone) 5 mg Q4H PRN PO 04/22/17 13:45 (D50w (Vial) Inj) 50 ml UNSCH PRN IV 04/22/17 19:15 (Glucagon Inj) 1 mg UNSCH PRN OTHER 04/22/17 19:15 (Diane-Colace) 2 tab BID PRN PO 04/24/17 13:00 (Miralax) 17 gm DAILY PO 04/24/17 13:00 05/08/17 10:07 (Heparin Inj) 5,000 units Q12HR SQ 04/25/17 21:00 05/08/17 10:07 (Dakin'S 0.25% Soln) W-D DRESSING TO SCRO... DAILY TOPICAL 04/28/17 17:00 05/06/17 09:00 (Thomas Powder) 1 pack BID G-TUBE 05/01/17 21:00 05/04/17 20:29 Ondansetron HCl 4 mg 4 mg Q6H PRN PO 05/01/17 11:30 Lactated Ringer's 1,000 ml @ 30 mls/hr Q24H PRN IV 05/06/17 02:45 05/09/17 02:44 (Cipro 400 Mg Premix) 200 ml @ 200 mls/hr Q12H IV 05/06/17 23:00 05/09/17 22:59 05/08/17 10:07 A/P Assessment and Plan 67-year-old male brought into the hospital due to inability to care for himself. Patient with recent history of Tony's gangrene status post extensive debridement. Currently awaiting surgical wound closure by plastics/ urology. Patient may need permanent placement. Necrotizing fasciitis/ Tony's Gangrene Treated for during recent hospitalization. S/p excision and debridement with washout of necrotizing fasciitis of the perineum, scrotum, and bilateral groin region. He had bacteremia and multiple organisms growing from the wound. He completed a course of antibiotics per ID. 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 He had a hard time taking care of himself and was brought in to the hospital by police. - Case management following - Physical therapy, patient walking 150 feet with standby assist rolling walker , indicating home with no PT recommendations - occupational therapy. Indication patient will need 31 bedside commode, home versus rehabilitation depending on progress - Supportive care. 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 The patient's ostomy bag exploded prior to arrival in the emergency department and reports indicate that he was covered in feces. - continue ostomy care. - Ostomy nurse consult requested. - Stooling continue MiraLAX with as needed Diane-Colace Abnormal urinalysis. - Urine culture with contaminants. - Antibiotics discontinued - Ellis catheter changed in the emergency department - Continue to change Ellis on a monthly basis Diabetes mellitus. A1c 5.8, uncontrolled - metformin 1000 mg twice daily - sliding scale insulin with Accu-Cheks. 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 - wound care nurse following. Heel wound is improving.. Prophylaxis: SCDs and early ambulation. Continue subcutaneous heparin No changes to anterior assessment. Discharge Planning Once cleared by specialists. Erich Zuniga MD May 08, 2017 11:27
[2017-05-08 12:00] VITALS: BP 119/58; PULSE 68; RESP 18; TEMP 97.7; O2SAT 97
[2017-05-08 12:33] VITALS: O2SAT 96
[2017-05-08 16:00] VITALS: BP 119/64; PULSE 63; RESP 18; TEMP 96.3; O2SAT 97
[2017-05-08 20:19] VITALS: BP 132/63; PULSE 89; RESP 17; TEMP 97.2; O2SAT 97
[2017-05-09 00:18] VITALS: BP 123/58; PULSE 70; RESP 17; TEMP 96.8; O2SAT 96
[2017-05-09] MEDS: INSULIN ASPART SUPPLEMENTAL SCALE SQ SCH ×4 (06:05→22:06)
[2017-05-09 08:00] VITALS: BP 119/56; PULSE 60; RESP 19; TEMP 97.4; O2SAT 99
--- NOTE | 2017-05-09 08:55 | PD.PLAS.PN ---
Subjective Remarks Patient see on 05/08/17. Patient denies any pain or discomfort. Objective Vital Signs Date Time Temp Pulse Resp B/P Pulse Ox O2 Delivery O2 Flow Rate FiO2 05/09/17 08:00 97.4 60 19 119/56 99 05/09/17 00:18 96.8 70 17 123/58 96 05/08/17 20:19 97.2 89 17 132/63 97 05/08/17 16:00 96.3 63 18 119/64 97 05/08/17 12:33 96 21 05/08/17 12:00 97.7 68 18 119/58 97 I/O 05/08/17 05/08/17 05/08/17 05/09/17 05/09/17 05/09/17 07:00 15:00 23:00 07:00 15:00 23:00 Intake Total 480 ml 680 ml 380 ml 240 ml 480 ml Output Total 1000 ml 1150 ml 550 ml 1550 ml Balance -520 ml -470 ml -170 ml -1310 ml 480 ml Intake Oral 280 ml 480 ml 380 ml 240 ml 480 ml IV Total 200 ml 200 ml Output Urine Total 1000 ml 1150 ml 500 ml 1500 ml Stool Total 0 ml 50 ml 50 ml # Bowel Movements 0 Result Diagram: 05/07/1752005/07/17520 Exam Findings Dressing is in place. It is not removed for exam. There is no purulence or erythema to surrounding skin or other evidence of infection. Assessment and Plan Diagnosis: (1) Open wound of scrotum Assessment and Plan Dressing is kept in place, but is irrigated with 0.25% dakin's solution. Will continue to monitor condition of dressing. The exam, history, and the medical decision-making described in the above note were completed with the assistance of the mid-level provider. I reviewed and agree with the findings presented. I attest that I had a [id number] encounter with the patient on the same day, and personally performed and documented my assessment and findings in the medical record. Brittney Tobin M.D. Vianney Baum May 09, 2017 08:55
--- NOTE | 2017-05-09 08:56 | PD.PLAS.PN ---
Subjective Remarks Patient is resting comfortably. Denies any pain or discomfort. Objective Vital Signs Date Time Temp Pulse Resp B/P Pulse Ox O2 Delivery O2 Flow Rate FiO2 05/09/17 08:00 97.4 60 19 119/56 99 05/09/17 00:18 96.8 70 17 123/58 96 05/08/17 20:19 97.2 89 17 132/63 97 05/08/17 16:00 96.3 63 18 119/64 97 05/08/17 12:33 96 21 05/08/17 12:00 97.7 68 18 119/58 97 I/O 05/08/17 05/08/17 05/08/17 05/09/17 05/09/17 05/09/17 07:00 15:00 23:00 07:00 15:00 23:00 Intake Total 480 ml 680 ml 380 ml 240 ml 480 ml Output Total 1000 ml 1150 ml 550 ml 1550 ml Balance -520 ml -470 ml -170 ml -1310 ml 480 ml Intake Oral 280 ml 480 ml 380 ml 240 ml 480 ml IV Total 200 ml 200 ml Output Urine Total 1000 ml 1150 ml 500 ml 1500 ml Stool Total 0 ml 50 ml 50 ml # Bowel Movements 0 Result Diagram: 05/07/17 0521 05/07/17 0521 Exam Findings Dressing is in place. It is not removed for exam. Gauze dressing is visible beneath the plastic draping. There is no purulence or erythema to surrounding skin or other evidence of infection. Assessment and Plan Diagnosis: (1) Open wound of scrotum Assessment and Plan Dressing is kept in place, and is irrigated with 0.25% dakin's solution. Will continue to monitor condition of dressing. Discussed with RN and Dr. Tobin. Vianney Baum May 09, 2017 08:56
[2017-05-09] MEDS: SODIUM HYPOCHLORITE 0.25% 500 ML BTL TOPICAL SCH (09:00)
[2017-05-09] MEDS: JUVEN POWDER 1 PACK G-TUBE SCH ×2 (09:00→21:00)
[2017-05-09] MEDS: POLYETHYLENE GLYCOL 17 GM PKG PO SCH (09:16)
[2017-05-09] MEDS: LIPASE/PROTEASE/AMYLASE (24,000/76,000/120,000) CAP PO SCH ×3 (09:16→17:06)
[2017-05-09] MEDS: PANTOPRAZOLE SOD 40 MG DELAYED RELEASE TAB PO SCH (09:16)
[2017-05-09] MEDS: metFORMIN HCL 500 MG TAB PO SCH ×2 (09:16→17:06)
[2017-05-09] MEDS: HEPARIN SODIUM - SQ 10,000 UNITS/ML VIAL SQ SCH ×2 (09:16→22:04)
[2017-05-09] MEDS: METOPROLOL TARTRATE 25 MG TAB PO SCH ×2 (09:17→22:04)
--- NOTE | 2017-05-09 10:58 | HHI.PR ---
Subjective Remarks F/u DM. Hyperglycemic not on metformin because of surgery. No complaints. Christopher RN who contacted Plastics re discharge planning. Patient not to be discharged for 10 days from date of surgery. Can be transferred back to [facility] Objective Vitals Vital Signs Date Time Temp Pulse Resp B/P Pulse Ox O2 Delivery O2 Flow Rate FiO2 05/09/17 08:00 97.4 60 19 119/56 99 05/09/17 00:18 96.8 70 17 123/58 96 05/08/17 20:19 97.2 89 17 132/63 97 05/08/17 16:00 96.3 63 18 119/64 97 05/08/17 12:33 96 21 05/08/17 12:00 97.7 68 18 119/58 97 I/O 05/08/17 05/08/17 05/08/17 05/09/17 05/09/17 05/09/17 07:00 15:00 23:00 07:00 15:00 23:00 Intake Total 480 ml 680 ml 380 ml 240 ml 480 ml Output Total 1000 ml 1150 ml 550 ml 1550 ml Balance -520 ml -470 ml -170 ml -1310 ml 480 ml Intake Oral 280 ml 480 ml 380 ml 240 ml 480 ml IV Total 200 ml 200 ml Output Urine Total 1000 ml 1150 ml 500 ml 1500 ml Stool Total 0 ml 50 ml 50 ml # Bowel Movements 0 Result Diagram: 05/07/17 0521 05/07/17 0521 Imaging Last Impressions Chest X-Ray 04/22/17 0000 Signed Impressions: Service Date/Time: Saturday, April 22, 2017 13:57 - CONCLUSION: No acute cardiomegaly disease. Sudhir Velez MD Objective Remarks GENERAL: Well-developed, cachectic, in no acute distress. HEENT: Head is normocephalic NECK: Supple without any masses. Trachea midline no deviation. No JVD, CARDIAC: Regular rhythm, regular rate. S1/S2 are heard. No murmurs gallops or rubs. LUNGS: Clear to auscultation bilaterally. ABDOMEN: Soft, nontender. Nondistended. Bowel sounds heard in all 4 quadrants. EXTREMITIES: No edema, pulses are equal bilaterally. No cyanosis or clubbing NEUROLOGY: Mood and affect appear appropriate. no focal deficits. GENITOURINARY: Ellis catheter is in place. Patient does have bandages in place at this time. Procedures 05/06/17 OPERATION: 1. Excisional debridement of skin, subcutaneous tissue of open scrotal wound. 2. Reconstruction of scrotal wound with local advancement flap. 3. Closure of open scrotal wound with allograft, 7 x 10 cm. Date of Insertion: April 22, 2017 A/P Problem List: (1) UTI (urinary tract infection) ICD Code: N39.0 Status: Acute (2) Failure to thrive in adult ICD Code: R62.7 Status: Acute Assessment and Plan 67-year-old male brought into the hospital due to inability to care for himself. Patient with recent history of Tony's gangrene status post extensive debridement. Necrotizing fasciitis/ Tony's Gangrene Treated for during recent hospitalization. S/p excision and debridement with washout of necrotizing fasciitis of the perineum, scrotum, and bilateral groin region. He had bacteremia and multiple organisms growing from the wound. He completed a course of antibiotics per ID. 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 Continue wound care. Per plastic surgery patient not to be discharged for 10 days after surgery. May transfer back to [facility] -Continue Ellis care Inability to care for self The patient was discharged home from the nursing home facility and did not have running water. He had a hard time taking care of himself and was brought in to the hospital by police. - Case management following - Physical therapy, patient walking 150 feet with standby assist rolling walker , indicating home with no PT recommendations - occupational therapy. Indication patient will need 31 bedside commode, home versus rehabilitation depending on progress - Supportive care. 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 The patient's ostomy bag exploded prior to arrival in the emergency department and reports indicate that he was covered in feces. - continue ostomy care. - Ostomy nurse consult requested. - Stooling continue MiraLAX with as needed Diane-Colace - To follow-up with Dr. Jansen regarding reversal when wound is completely healed Abnormal urinalysis. - Urine culture with contaminants. - Antibiotics discontinued - Ellis catheter changed in the emergency department - Continue to change Ellis on a monthly basis Diabetes mellitus. A1c 5.8, uncontrolled - metformin 1000 mg twice daily - sliding scale insulin with Accu-Cheks. 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 - wound care nurse following. Heel wound is improving.. Prophylaxis: SCDs and early ambulation. Continue subcutaneous heparin Discharge Planning Home care versus rehabilitation when cleared by plastic surgery Jai Hawkins MD May 09, 2017 10:58
[2017-05-09 12:00] VITALS: BP 116/61; PULSE 66; RESP 17; TEMP 97.6; O2SAT 98
[2017-05-09] MEDS: CIPROFLOXACIN 400 MG PREMIX 200 ML IV SCH (12:21)
[2017-05-09 16:00] VITALS: BP 111/57; PULSE 72; RESP 19; TEMP 97.4; O2SAT 99
[2017-05-09 20:00] VITALS: BP 119/62; PULSE 80; RESP 20; TEMP 98.1; O2SAT 97
[2017-05-10] VITALS: BP 120/64; PULSE 66; RESP 20; TEMP 96.4; O2SAT 98
[2017-05-10] MEDS: INSULIN ASPART SUPPLEMENTAL SCALE SQ SCH ×4 (07:00→22:18)
[2017-05-10 08:00] VITALS: BP 137/64; PULSE 70; RESP 18; TEMP 96.4; O2SAT 98
[2017-05-10] MEDS: SODIUM HYPOCHLORITE 0.25% 500 ML BTL TOPICAL SCH (09:00)
[2017-05-10] MEDS: JUVEN POWDER 1 PACK G-TUBE SCH ×2 (09:00→21:00)
[2017-05-10] MEDS: metFORMIN HCL 500 MG TAB PO SCH ×2 (09:38→17:35)
[2017-05-10] MEDS: POLYETHYLENE GLYCOL 17 GM PKG PO SCH (09:38)
[2017-05-10] MEDS: METOPROLOL TARTRATE 25 MG TAB PO SCH ×2 (09:38→21:01)
[2017-05-10] MEDS: PANTOPRAZOLE SOD 40 MG DELAYED RELEASE TAB PO SCH (09:38)
[2017-05-10] MEDS: LIPASE/PROTEASE/AMYLASE (24,000/76,000/120,000) CAP PO SCH ×3 (09:38→17:35)
[2017-05-10] MEDS: HEPARIN SODIUM - SQ 10,000 UNITS/ML VIAL SQ SCH ×2 (09:39→21:01)
[2017-05-10 12:00] VITALS: BP 114/61; PULSE 73; RESP 18; TEMP 96.4; O2SAT 100
--- NOTE | 2017-05-10 13:35 | PD.PLAS.PN ---
Subjective Remarks The patient is sitting in a chair eating lunch. He is comfortable. He has no complaints. Vital Signs Date Time Temp Pulse Resp B/P Pulse Ox O2 Delivery O2 Flow Rate FiO2 05/10/17 12:00 96.4 73 18 114/61 100 05/10/17 08:00 96.4 70 18 137/64 98 05/10/17 00:00 96.4 66 20 120/64 98 05/09/17 20:00 98.1 80 20 119/62 97 05/09/17 16:00 97.4 72 19 111/57 99 I/O 05/09/17 05/09/17 05/09/17 05/10/17 05/10/17 05/10/17 07:00 15:00 23:00 07:00 15:00 23:00 Intake Total 240 ml 1640 ml 240 ml 480 ml Output Total 1550 ml 1000 ml 2250 ml 1950 ml Balance -1310 ml 640 ml -2010 ml -1470 ml Intake Oral 240 ml 1440 ml 240 ml 480 ml IV Total 200 ml Output Urine Total 1500 ml 800 ml 2250 ml 1550 ml Stool Total 50 ml 200 ml 400 ml Result Diagram: 05/07/1721 05/07/17 0521 Exam Findings The dressing is intact. There is no significant odor. Plan Impression: The patient is progressing well. Plan: The dressing will be changed Friday or Friday as per the protocol for this product. I anticipate that the patient may need a split-thickness skin graft in the future. This may be a college during this admission. That determination will be made over the next week or 2. Brittney Tobin MD May 10, 2017 13:35
--- NOTE | 2017-05-10 13:49 | HHI.PR ---
Subjective Remarks Follow-up diabetes mellitus. Still hyperglycemic denies blurred vision, polyuria, polydipsia and polyphagia. Discussed with RN Objective Vitals Vital Signs Date Time Temp Pulse Resp B/P Pulse Ox O2 Delivery O2 Flow Rate FiO2 05/10/17 12:00 96.4 73 18 114/61 100 05/10/17 08:00 96.4 70 18 137/64 98 05/10/17 00:00 96.4 66 20 120/64 98 05/09/17 20:00 98.1 80 20 119/62 97 05/09/17 16:00 97.4 72 19 111/57 99 I/O 05/09/17 05/09/17 05/09/17 05/10/17 05/10/17 05/10/17 07:00 15:00 23:00 07:00 15:00 23:00 Intake Total 240 ml 1640 ml 240 ml 480 ml Output Total 1550 ml 1000 ml 2250 ml 1950 ml Balance -1310 ml 640 ml -2010 ml -1470 ml Intake Oral 240 ml 1440 ml 240 ml 480 ml IV Total 200 ml Output Urine Total 1500 ml 800 ml 2250 ml 1550 ml Stool Total 50 ml 200 ml 400 ml Result Diagram: 05/07/1752005/07/17520 Objective Remarks GENERAL: Well-developed, cachectic, in no acute distress. HEENT: Head is normocephalic NECK: Supple without any masses. Trachea midline no deviation. No JVD, CARDIAC: Regular rhythm, regular rate. S1/S2 are heard. No murmurs gallops or rubs. LUNGS: Clear to auscultation bilaterally. ABDOMEN: Soft, nontender. Nondistended. Bowel sounds heard in all 4 quadrants. EXTREMITIES: No edema, pulses are equal bilaterally. No cyanosis or clubbing NEUROLOGY: Mood and affect appear appropriate. No focal weakness GENITOURINARY: Ellis catheter is in place. Patient does have bandages in place at this time. Procedures 05/06/17 OPERATION: 1. Excisional debridement of skin, subcutaneous tissue of open scrotal wound. 2. Reconstruction of scrotal wound with local advancement flap. 3. Closure of open scrotal wound with allograft, 7 x 10 cm. Date of Insertion: April 22, 2017 A/P Problem List: (1) UTI (urinary tract infection) ICD Code: N39.0 Status: Acute (2) Failure to thrive in adult ICD Code: R62.7 Status: Acute Assessment and Plan 67-year-old male brought into the hospital due to inability to care for himself. Patient with recent history of Tony's gangrene status post extensive debridement. Necrotizing fasciitis/ Tony's Gangrene Treated for during recent hospitalization. S/p excision and debridement with washout of necrotizing fasciitis of the perineum, scrotum, and bilateral groin region. He had bacteremia and multiple organisms growing from the wound. He completed a course of antibiotics per ID. The wound appears non-infected at this time - With Diagnosis of Open wound of scrotum secondary to Tony's Gangrene status post Excisional debridement of skin, subcutaneous tissue of open scrotal wound, reconstruction of scrotal wound wtih local advancement flap, Closure of open scrotal wound with allograft 7 x 10 cms 05/16/17. Continue wound care. Per plastic surgery patient not to be discharged for 10 days after surgery. -Continue Ellis care Inability to care for self The patient was discharged home from the [facility] facility and did not have running water. He had a hard time taking care of himself and was brought in to the hospital by police. - Case management following - Physical therapy, patient walking 150 feet with standby assist rolling walker , indicating home with no PT recommendations - occupational therapy. Indication patient will need 31 bedside commode, home versus rehabilitation depending on progress - Supportive care. 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 The patient's ostomy bag exploded prior to arrival in the emergency department and reports indicate that he was covered in feces. - continue ostomy care. - Ostomy nurse consult requested. - Stooling continue MiraLAX with as needed Diane-Colace - To follow-up with Dr. Jansen regarding reversal when wound is completely healed Abnormal urinalysis. - Urine culture with contaminants. - Antibiotics discontinued - Ellis catheter changed in the emergency department - Continue to change Ellis on a monthly basis Diabetes mellitus. A1c 5.8 but hyperglycemic 2/2 not receiving meds - metformin 500 mg twice daily restarted yesterday - sliding scale insulin with Accu-Cheks. 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 - wound care nurse following. Heel wound is improving.. Prophylaxis: SCDs and early ambulation. Continue subcutaneous heparin Discharge Planning Accepted by robinson Mazariegos when cleared by plastic surgery Jai Hawkins MD May 10, 2017 13:49
[2017-05-10 16:00] VITALS: BP 146/71; PULSE 78; RESP 16; TEMP 97.2; O2SAT 99
[2017-05-10 20:00] VITALS: BP 119/59; PULSE 78; RESP 20; TEMP 98.5; O2SAT 97
[2017-05-11] VITALS: BP 129/74; PULSE 63; RESP 20; TEMP 97; O2SAT 97
[2017-05-11] MEDS: INSULIN ASPART SUPPLEMENTAL SCALE SQ SCH ×4 (06:14→22:03)
[2017-05-11 08:00] VITALS: BP 123/59; PULSE 63; RESP 16; TEMP 96.6; O2SAT 98
[2017-05-11] MEDS: SODIUM HYPOCHLORITE 0.25% 500 ML BTL TOPICAL SCH (09:00)
[2017-05-11] MEDS: METOPROLOL TARTRATE 25 MG TAB PO SCH ×2 (09:19→21:17)
[2017-05-11] MEDS: PANTOPRAZOLE SOD 40 MG DELAYED RELEASE TAB PO SCH (09:19)
[2017-05-11] MEDS: LIPASE/PROTEASE/AMYLASE (24,000/76,000/120,000) CAP PO SCH ×3 (09:19→17:24)
[2017-05-11] MEDS: POLYETHYLENE GLYCOL 17 GM PKG PO SCH (09:20)
[2017-05-11] MEDS: HEPARIN SODIUM - SQ 10,000 UNITS/ML VIAL SQ SCH ×2 (09:28→21:17)
--- NOTE | 2017-05-11 11:15 | HHI.PR ---
Subjective Remarks Follow-up diabetes mellitus. Improving hyperglycemia. Denies any symptoms. Discussed with RN Objective Vitals Vital Signs Date Time Temp Pulse Resp B/P Pulse Ox O2 Delivery O2 Flow Rate FiO2 05/11/17 08:00 96.6 63 16 123/59 98 05/11/17 00:00 97.0 63 20 129/74 97 05/10/17 20:00 98.5 78 20 119/59 97 05/10/17 16:00 97.2 78 16 146/71 99 05/10/17 12:00 96.4 73 18 114/61 100 I/O 05/10/17 05/10/17 05/10/17 05/11/17 05/11/17 05/11/17 07:00 15:00 23:00 07:00 15:00 23:00 Intake Total 480 ml 960 ml 120 ml 120 ml Output Total 1950 ml 850 ml 700 ml 2150 ml Balance -1470 ml 110 ml -580 ml -2030 ml Intake Oral 480 ml 960 ml 120 ml 120 ml IV Total 0 ml 0 ml 0 ml Output Urine Total 1550 ml 700 ml 700 ml 2150 ml Stool Total 400 ml 150 ml Result Diagram: 05/07/17 0521 05/07/17 0521 Imaging Last Impressions Chest X-Ray 04/22/17 0000 Signed Impressions: Service Date/Time: Saturday, April 22, 2017 13:57 - CONCLUSION: No acute cardiomegaly disease. Sudhir Velez MD Objective Remarks GENERAL: Well-developed, cachectic, in no acute distress. HEENT: Head is normocephalic NECK: Supple without any masses. Trachea midline no deviation. No JVD, CARDIAC: Regular rhythm, regular rate. S1/S2 are heard. No murmurs gallops or rubs. LUNGS: Clear to auscultation bilaterally. ABDOMEN: Soft, nontender. Nondistended. Bowel sounds heard in all 4 quadrants. EXTREMITIES: No edema, pulses are equal bilaterally. No cyanosis or clubbing NEUROLOGY: Mood and affect appear appropriate. No focal weakness GENITOURINARY: Ellis catheter is in place. Patient does have bandages in place at this time. Procedures 05/06/17 OPERATION: 1. Excisional debridement of skin, subcutaneous tissue of open scrotal wound. 2. Reconstruction of scrotal wound with local advancement flap. 3. Closure of open scrotal wound with allograft, 7 x 10 cm. Date of Insertion: April 22, 2017 A/P Problem List: (1) UTI (urinary tract infection) ICD Code: N39.0 Status: Acute (2) Failure to thrive in adult ICD Code: R62.7 Status: Acute Assessment and Plan 67-year-old male brought into the hospital due to inability to care for himself. Patient with recent history of Tony's gangrene status post extensive debridement. Necrotizing fasciitis/ Tony's Gangrene Treated for during recent hospitalization. S/p excision and debridement with washout of necrotizing fasciitis of the perineum, scrotum, and bilateral groin region. He had bacteremia and multiple organisms growing from the wound. He completed a course of antibiotics per ID. The wound appears non-infected at this time - With Diagnosis of Open wound of scrotum secondary to Tony's Gangrene status post Excisional debridement of skin, subcutaneous tissue of open scrotal wound, reconstruction of scrotal wound wtih local advancement flap, Closure of open scrotal wound with allograft 7 x 10 cms 05/16/17. Continue wound care. Per plastic surgery patient not to be discharged for 10 days after surgery. -Continue Ellis care Inability to care for self The patient was discharged home from the shelter facility and did not have running water. He had a hard time taking care of himself and was brought in to the hospital by police. - Case management following - Physical therapy, patient walking 150 feet with standby assist rolling walker , indicating home with no PT recommendations - occupational therapy. Indication patient will need 31 bedside commode, home versus rehabilitation depending on progress - Supportive care. 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 The patient's ostomy bag exploded prior to arrival in the emergency department and reports indicate that he was covered in feces. - continue ostomy care. - Ostomy nurse consult requested. - Stooling continue MiraLAX with as needed Diane-Colace - To follow-up with Dr. Jansen regarding reversal when wound is completely healed Abnormal urinalysis. - Urine culture with contaminants. - Antibiotics discontinued - Ellis catheter changed in the emergency department - Continue to change Ellis on a monthly basis Diabetes mellitus. A1c 5.8 but still hyperglycemic - metformin will be increased to 850 mg twice daily and monitor - sliding scale insulin with Accu-Cheks. 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 - wound care nurse following. Heel wound is improving.. Prophylaxis: SCDs and early ambulation. Continue subcutaneous heparin Discharge Planning Accepted by robinson Mazariegos when cleared by plastic surgery early as will be 05/16/17 Jai Hawkins MD May 11, 2017 11:15
[2017-05-11] MEDS: JUVEN POWDER 1 PACK G-TUBE SCH ×2 (11:35→21:00)
[2017-05-11] MEDS: metFORMIN HCL 850 MG TAB PO SCH ×2 (11:35→17:24)
[2017-05-11 12:00] VITALS: BP 137/61; PULSE 77; RESP 16; TEMP 96.6; O2SAT 96
[2017-05-11 16:00] VITALS: BP 126/63; PULSE 78; RESP 16; TEMP 96.5; O2SAT 96
[2017-05-11 20:00] VITALS: BP 111/59; PULSE 87; RESP 20; TEMP 97.2; O2SAT 96
[2017-05-12] VITALS: BP 129/60; PULSE 73; RESP 18; TEMP 96.7; O2SAT 97
[2017-05-12] MEDS: INSULIN ASPART SUPPLEMENTAL SCALE SQ SCH ×4 (06:23→21:39)
[2017-05-12 08:00] VITALS: BP 127/57; PULSE 73; RESP 17; TEMP 96.6; O2SAT 98
[2017-05-12] MEDS: JUVEN POWDER 1 PACK G-TUBE SCH ×2 (09:00→21:00)
[2017-05-12] MEDS: SODIUM HYPOCHLORITE 0.25% 500 ML BTL TOPICAL SCH (09:00)
[2017-05-12] MEDS: POLYETHYLENE GLYCOL 17 GM PKG PO SCH (09:11)
[2017-05-12] MEDS: LIPASE/PROTEASE/AMYLASE (24,000/76,000/120,000) CAP PO SCH ×3 (09:11→17:27)
[2017-05-12] MEDS: PANTOPRAZOLE SOD 40 MG DELAYED RELEASE TAB PO SCH (09:11)
[2017-05-12] MEDS: metFORMIN HCL 850 MG TAB PO SCH ×2 (09:12→17:27)
[2017-05-12] MEDS: METOPROLOL TARTRATE 25 MG TAB PO SCH ×2 (09:12→21:37)
[2017-05-12] MEDS: HEPARIN SODIUM - SQ 10,000 UNITS/ML VIAL SQ SCH ×2 (09:12→21:37)
--- NOTE | 2017-05-12 11:40 | PD.PLAS.PN ---
Subjective Remarks Patient is 6 days status post debridement and repair of scrotal wound with local advancement flap and allograft application. The patient has no acute complaints. Objective Vital Signs Date Time Temp Pulse Resp B/P Pulse Ox O2 Delivery O2 Flow Rate FiO2 05/12/17 08:00 96.6 73 17 127/57 98 05/12/17 00:00 96.7 73 18 129/60 97 05/11/17 20:00 97.2 87 20 111/59 96 05/11/17 16:00 96.5 78 16 126/63 96 05/11/17 12:00 96.6 77 16 137/61 96 I/O 05/11/17 05/11/17 05/11/17 05/12/17 05/12/17 05/12/17 06:59 14:59 22:59 06:59 14:59 22:59 Intake Total 120 ml 240 ml 360 ml 240 ml Output Total 2150 ml 900 ml 700 ml 1200 ml Balance -2030 ml -660 ml -340 ml -960 ml Intake Oral 120 ml 240 ml 360 ml 240 ml IV Total 0 ml 0 ml 0 ml Output Urine Total 2150 ml 900 ml 700 ml 1100 ml Stool Total 100 ml # Bowel Movements 1 0 Exam Findings Dressing is in place. On removal, the allograft appears to have dissolved as it is not present in the wound or on the dressing. The sutures and aneta are in place. The wound is healing well. There is no evidence of infection. Periwound skin is without maceration or cellulitis. The left testicle is protruding through the open area and is covered in pink granulation tissue. Assessment and Plan Diagnosis: (1) Open wound of scrotum Assessment and Plan The wound is redressed. Adaptic is applied to protect the exposed testicle and a 0.25% dakin's wet to dry dressing is applied. This is covered with ABD and secured with bordered gauze and mesh underwear. We will continue to do dressing changes for the time being. This is discussed with the RN. Also discussed with Dr. Tobin. Vianney Baum May 12, 2017 11:40
[2017-05-12 12:00] VITALS: BP 110/60; PULSE 72; RESP 18; TEMP 97.7; O2SAT 98
--- NOTE | 2017-05-12 13:19 | HHI.PR ---
Subjective Remarks Follow-up diabetes mellitus. Still hyperglycemic tolerating increased dose of metformin. Discussed with RN Objective Vitals Vital Signs Date Time Temp Pulse Resp B/P Pulse Ox O2 Delivery O2 Flow Rate FiO2 05/12/17 12:00 97.7 72 18 110/60 98 05/12/17 08:00 96.6 73 17 127/57 98 05/12/17 00:00 96.7 73 18 129/60 97 05/11/17 20:00 97.2 87 20 111/59 96 05/11/17 16:00 96.5 78 16 126/63 96 I/O 05/11/17 05/11/17 05/11/17 05/12/17 05/12/17 05/12/17 07:00 15:00 23:00 07:00 15:00 23:00 Intake Total 120 ml 240 ml 360 ml 240 ml Output Total 2150 ml 900 ml 700 ml 1200 ml Balance -2030 ml -660 ml -340 ml -960 ml Intake Oral 120 ml 240 ml 360 ml 240 ml IV Total 0 ml 0 ml 0 ml Output Urine Total 2150 ml 900 ml 700 ml 1100 ml Stool Total 100 ml # Bowel Movements 1 0 Imaging Last Impressions Chest X-Ray 04/22/17 0000 Signed Impressions: Service Date/Time: Saturday, April 22, 2017 13:57 - CONCLUSION: No acute cardiomegaly disease. Sudhir Velez MD Objective Remarks GENERAL: Well-developed in no acute distress. HEENT: Head is normocephalic NECK: Supple without any masses. Trachea midline no deviation. No JVD, CARDIAC: Regular rhythm, regular rate. S1/S2 are heard. No murmurs gallops or rubs. LUNGS: Clear to auscultation bilaterally. ABDOMEN: Soft, nontender. Nondistended. Bowel sounds heard in all 4 quadrants. EXTREMITIES: No edema, pulses are equal bilaterally. No cyanosis or clubbing NEUROLOGY: Mood and affect appear appropriate. No focal weakness GENITOURINARY: Ellis catheter is in place. Patient does have bandages in place at this time. Procedures 05/06/17 OPERATION: 1. Excisional debridement of skin, subcutaneous tissue of open scrotal wound. 2. Reconstruction of scrotal wound with local advancement flap. 3. Closure of open scrotal wound with allograft, 7 x 10 cm. Date of Insertion: April 22, 2017 A/P Problem List: (1) UTI (urinary tract infection) ICD Code: N39.0 Status: Acute (2) Failure to thrive in adult ICD Code: R62.7 Status: Acute Assessment and Plan 67-year-old male brought into the hospital due to inability to care for himself. Patient with recent history of Tony's gangrene status post extensive debridement. Necrotizing fasciitis/ Tony's Gangrene Treated for during recent hospitalization. S/p excision and debridement with washout of necrotizing fasciitis of the perineum, scrotum, and bilateral groin region. He had bacteremia and multiple organisms growing from the wound. He completed a course of antibiotics per ID. 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 Continue wound care. Per plastic surgery patient not to be discharged for 10 days after surgery. -Continue Ellis care Inability to care for self The patient was discharged home from the [facility] facility and did not have running water. He had a hard time taking care of himself and was brought in to the hospital by police. - Case management following - Physical therapy, patient walking 150 feet with standby assist rolling walker , indicating home with no PT recommendations - occupational therapy. Indication patient will need 31 bedside commode, home versus rehabilitation depending on progress - Supportive care. 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 The patient's ostomy bag exploded prior to arrival in the emergency department and reports indicate that he was covered in feces. - continue ostomy care. - Ostomy nurse consult requested. - Stooling continue MiraLAX with as needed Diane-Colace - To follow-up with Dr. Jansen regarding reversal when wound is completely healed Abnormal urinalysis. - Urine culture with contaminants. - Antibiotics discontinued - Ellis catheter changed in the emergency department - Continue to change Ellis on a monthly basis Diabetes mellitus. A1c 5.8 but still hyperglycemic - metformin will be increased to 850 mg twice daily and monitor - sliding scale insulin with Accu-Cheks. 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 - wound care nurse following. Heel wound is improving.. Prophylaxis: SCDs and early ambulation. Continue subcutaneous heparin Discharge Planning Accepted by robinson Mazariegos when cleared by plastic surgery early as will be 05/16/17 Jai Hawkins MD May 12, 2017 13:18
[2017-05-12 16:00] VITALS: BP 140/71; PULSE 86; RESP 17; TEMP 95.6; O2SAT 98
[2017-05-12 20:00] VITALS: BP 124/60; PULSE 89; RESP 18; TEMP 98.9; O2SAT 95
[2017-05-13] VITALS: BP 124/58; PULSE 76; RESP 18; TEMP 98.1; O2SAT 96
[2017-05-13] MEDS: INSULIN ASPART SUPPLEMENTAL SCALE SQ SCH ×4 (06:22→21:00)
[2017-05-13] MEDS: METOPROLOL TARTRATE 25 MG TAB PO SCH ×2 (07:39→20:39)
[2017-05-13] MEDS: SODIUM HYPOCHLORITE 0.25% 500 ML BTL TOPICAL SCH (07:41)
[2017-05-13 08:00] VITALS: BP 110/59; PULSE 73; RESP 17; TEMP 96.2; O2SAT 98
[2017-05-13] MEDS: JUVEN POWDER 1 PACK G-TUBE SCH ×2 (08:09→20:38)
[2017-05-13] MEDS: POLYETHYLENE GLYCOL 17 GM PKG PO SCH (08:10)
[2017-05-13] MEDS: HEPARIN SODIUM - SQ 10,000 UNITS/ML VIAL SQ SCH ×3 (08:10→20:39)
[2017-05-13] MEDS: LIPASE/PROTEASE/AMYLASE (24,000/76,000/120,000) CAP PO SCH ×3 (08:10→18:18)
[2017-05-13] MEDS: metFORMIN HCL 850 MG TAB PO SCH ×2 (08:10→18:18)
[2017-05-13] MEDS: PANTOPRAZOLE SOD 40 MG DELAYED RELEASE TAB PO SCH (08:10)
--- NOTE | 2017-05-13 09:32 | HHI.PR ---
Subjective Remarks Follow-up hyperglycemia. Improving glucose levels less than 200 yesterday. Discussed with RN Objective Vitals Vital Signs Date Time Temp Pulse Resp B/P Pulse Ox O2 Delivery O2 Flow Rate FiO2 05/13/17 08:00 96.2 73 17 110/59 98 05/13/17 00:00 98.1 76 18 124/58 96 05/12/17 20:00 98.9 89 18 124/60 95 05/12/17 16:00 95.6 86 17 140/71 98 05/12/17 12:00 97.7 72 18 110/60 98 I/O 05/12/17 05/12/17 05/12/17 05/13/17 05/13/17 05/13/17 07:00 15:00 23:00 07:00 15:00 23:00 Intake Total 240 ml 2400 ml 240 ml 240 ml Output Total 1200 ml 1350 ml 1100 ml 1250 ml Balance -960 ml 1050 ml -860 ml -1010 ml Intake Oral 240 ml 2400 ml 240 ml 240 ml IV Total 0 ml Output Urine Total 1100 ml 1350 ml 1000 ml 1150 ml Stool Total 100 ml 100 ml 100 ml # Bowel Movements 1 2 Imaging Last Impressions Chest X-Ray 04/22/17 0000 Signed Impressions: Service Date/Time: Saturday, April 22, 2017 13:57 - CONCLUSION: No acute cardiomegaly disease. Sudhir Velez MD Objective Remarks GENERAL: Well-developed in no acute distress. HEENT: Head is normocephalic NECK: Supple without any masses. Trachea midline no deviation. No JVD, CARDIAC: Regular rhythm, regular rate. S1/S2 are heard. No murmurs gallops or rubs. LUNGS: Clear to auscultation bilaterally. ABDOMEN: Soft, nontender. Nondistended. Bowel sounds heard in all 4 quadrants. EXTREMITIES: No edema, pulses are equal bilaterally. No cyanosis or clubbing NEUROLOGY: Mood and affect appear appropriate. No focal weakness GENITOURINARY: Ellis catheter is in place. Patient does have bandages in place Procedures 05/06/17 OPERATION: 1. Excisional debridement of skin, subcutaneous tissue of open scrotal wound. 2. Reconstruction of scrotal wound with local advancement flap. 3. Closure of open scrotal wound with allograft, 7 x 10 cm. Date of Insertion: April 22, 2017 A/P Problem List: (1) UTI (urinary tract infection) ICD Code: N39.0 Status: Acute (2) Failure to thrive in adult ICD Code: R62.7 Status: Acute Assessment and Plan 67-year-old male brought into the hospital due to inability to care for himself. Patient with recent history of Tony's gangrene status post extensive debridement. Necrotizing fasciitis/ Tony's Gangrene Treated for during recent hospitalization. S/p excision and debridement with washout of necrotizing fasciitis of the perineum, scrotum, and bilateral groin region. He had bacteremia and multiple organisms growing from the wound. He completed a course of antibiotics per ID. 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 Continue wound care. Per plastic surgery patient not to be discharged for 10 days after surgery. -Continue Ellis care Inability to care for self The patient was discharged home from the [facility] facility and did not have running water. He had a hard time taking care of himself and was brought in to the hospital by police. - Case management following - Physical therapy, patient walking 150 feet with standby assist rolling walker , indicating home with no PT recommendations - occupational therapy. Indication patient will need 31 bedside commode, home versus rehabilitation depending on progress - Supportive care. 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 The patient's ostomy bag exploded prior to arrival in the emergency department and reports indicate that he was covered in feces. - continue ostomy care. - Ostomy nurse consult requested. - Stooling continue MiraLAX with as needed Diane-Colace - To follow-up with Dr. Jansen regarding reversal when wound is completely healed Abnormal urinalysis. - Urine culture with contaminants. - Antibiotics discontinued - Ellis catheter changed in the emergency department - Continue to change Ellis on a monthly basis Diabetes mellitus. Improving hyperglycemia A1c 5.8 - metformin increased to 850 mg twice daily and monitor - sliding scale insulin with Accu-Cheks. 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 - wound care nurse following. Heel wound is improving.. Prophylaxis: SCDs and early ambulation. Continue subcutaneous heparin Discharge Planning Accepted by robinson Mazariegos when cleared by plastic surgery anticipate discharge date 05/16/17 Jai Hawkins MD May 13, 2017 09:32
[2017-05-13] MEDS ORDERED: POLY17S PO (09:34)
[2017-05-13] MEDS ORDERED: HEPA10003 SQ (09:34)
[2017-05-13] MEDS ORDERED: METF850 PO (09:34)
--- NOTE | 2017-05-13 09:34 | HHI.DCPOC ---
Discharge Care Plan Diagnosis: (1) Open wound of scrotum Your Health Problems Are: Difficulty with ADL Exercise Tolerance Goals to Promote Your Health * To prevent worsening of your condition and complications * To maintain your health at the optimal level Directions to Meet Your Goals Take your medications as prescribed Follow your dietary instruction Follow activity as directed Keep your appointments as scheduled Take your immunizations and boosters as scheduled If your symptoms worsen call your PCP, if no PCP go to Urgent Care Center or Emergency Room Smoking is Dangerous to Your Health. Avoid second hand smoke Call the 24-hour hour crisis hotline for domestic abuse at Jai Hawkins MD May 13, 2017 09:34
[2017-05-13 12:00] VITALS: BP 133/72; PULSE 87; RESP 19; TEMP 95.8; O2SAT 100
--- NOTE | 2017-05-13 14:30 | PD.PLAS.PN ---
Subjective Remarks Patient has no complaints. Vital Signs Date Time Temp Pulse Resp B/P Pulse Ox O2 Delivery O2 Flow Rate FiO2 05/13/17 12:00 95.8 87 19 133/72 100 05/13/17 08:00 96.2 73 17 110/59 98 05/13/17 00:00 98.1 76 18 124/58 96 05/12/17 20:00 98.9 89 18 124/60 95 05/12/17 16:00 95.6 86 17 140/71 98 I/O 05/12/17 05/12/17 05/12/17 05/13/17 05/13/17 05/13/17 07:00 15:00 23:00 07:00 15:00 23:00 Intake Total 240 ml 2400 ml 240 ml 240 ml Output Total 1200 ml 1350 ml 1100 ml 1250 ml Balance -960 ml 1050 ml -860 ml -1010 ml Intake Oral 240 ml 2400 ml 240 ml 240 ml IV Total 0 ml Output Urine Total 1100 ml 1350 ml 1000 ml 1150 ml Stool Total 100 ml 100 ml 100 ml # Bowel Movements 1 2 Exam Findings The dressing is intact. There is a mild odor. The area continues to granulate. The previous allograft has been absorbed. Plan Impression: The patient is progressing well. Plan: The patient will be taken back to the operating room for additional allograft. Attempt will be made to close the wound. The patient understands and accepts the risks and complications of the surgery. Brittney Tobin MD May 13, 2017 14:30
[2017-05-13 16:00] VITALS: BP 122/72; PULSE 79; RESP 18; TEMP 96.1; O2SAT 98
[2017-05-13 20:00] VITALS: BP 126/61; PULSE 78; RESP 17; TEMP 96.9; O2SAT 98
[2017-05-14] VITALS: BP 123/70; PULSE 74; RESP 17; TEMP 96.2; O2SAT 98
[2017-05-14] MEDS: INSULIN ASPART SUPPLEMENTAL SCALE SQ SCH ×4 (05:45→21:00)
[2017-05-14] MEDS ORDERED: SODIUM CHLORID 0.9% 500 ML IV PRN (06:45)
[2017-05-14 08:00] VITALS: BP 120/68; PULSE 18; RESP 18; TEMP 95.9; O2SAT 70
[2017-05-14] MEDS: JUVEN POWDER 1 PACK G-TUBE SCH ×2 (08:35→21:00)
[2017-05-14] MEDS: METOPROLOL TARTRATE 25 MG TAB PO SCH ×2 (08:35→21:16)
[2017-05-14] MEDS: PANTOPRAZOLE SOD 40 MG DELAYED RELEASE TAB PO SCH (08:35)
[2017-05-14] MEDS: metFORMIN HCL 850 MG TAB PO SCH ×2 (08:35→16:13)
[2017-05-14] MEDS: LIPASE/PROTEASE/AMYLASE (24,000/76,000/120,000) CAP PO SCH ×3 (08:35→16:13)
[2017-05-14] MEDS: POLYETHYLENE GLYCOL 17 GM PKG PO SCH (08:36)
[2017-05-14] MEDS: HEPARIN SODIUM - SQ 10,000 UNITS/ML VIAL SQ SCH ×2 (08:36→21:00)
[2017-05-14] MEDS: SODIUM HYPOCHLORITE 0.25% 500 ML BTL TOPICAL SCH (09:00)
--- NOTE | 2017-05-14 09:44 | HHI.PR ---
Subjective Remarks Follow-up skin grafting and diabetes mellitus. Patient has no new complaints. For additional skin grafting and possible wound closure later today discussed with RN Objective Vitals Vital Signs Date Time Temp Pulse Resp B/P Pulse Ox O2 Delivery O2 Flow Rate FiO2 05/14/17 08:00 95.9 18 18 120/68 70 05/14/17 00:00 96.2 74 17 123/70 98 05/13/17 20:00 96.9 78 17 126/61 98 05/13/17 16:00 96.1 79 18 122/72 98 05/13/17 12:00 95.8 87 19 133/72 100 I/O 05/13/17 05/13/17 05/13/17 05/14/17 05/14/17 05/14/17 07:00 15:00 23:00 07:00 15:00 23:00 Intake Total 240 ml 2400 ml 240 ml 240 ml Output Total 1250 ml 1300 ml 1250 ml 900 ml Balance -1010 ml 1100 ml -1010 ml -660 ml Intake Oral 240 ml 2400 ml 240 ml 240 ml Output Urine Total 1150 ml 1300 ml 1250 ml 900 ml Stool Total 100 ml # Bowel Movements 2 0 Objective Remarks GENERAL: Well-developed in no acute distress. HEENT: Head is normocephalic NECK: Supple without any masses. Trachea midline no deviation. No JVD, CARDIAC: Regular rhythm, regular rate. S1/S2 are heard. No murmurs gallops or rubs. LUNGS: Clear to auscultation bilaterally. ABDOMEN: Soft, nontender. Nondistended. Bowel sounds heard in all 4 quadrants. EXTREMITIES: No edema, pulses are equal bilaterally. No cyanosis or clubbing NEUROLOGY: Mood and affect appear appropriate. No focal weakness GENITOURINARY: Ellis catheter is in place. Patient does have bandages in place Procedures 05/06/17 OPERATION: 1. Excisional debridement of skin, subcutaneous tissue of open scrotal wound. 2. Reconstruction of scrotal wound with local advancement flap. 3. Closure of open scrotal wound with allograft, 7 x 10 cm. Date of Insertion: April 22, 2017 A/P Problem List: (1) UTI (urinary tract infection) ICD Code: N39.0 Status: Acute (2) Failure to thrive in adult ICD Code: R62.7 Status: Acute Assessment and Plan 67-year-old male brought into the hospital due to inability to care for himself. Patient with recent history of Tony's gangrene status post extensive debridement. Necrotizing fasciitis/ Tony's Gangrene Treated for during recent hospitalization. S/p excision and debridement with washout of necrotizing fasciitis of the perineum, scrotum, and bilateral groin region. He had bacteremia and multiple organisms growing from the wound. He completed a course of antibiotics per ID. 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 Continue wound care. Per plastic surgery patient not to be discharged for 10 days after surgery. For additional allograft and possible wound closure at 4:30 PM today -Continue Ellis care Inability to care for self The patient was discharged home from the senior care facility and did not have running water. He had a hard time taking care of himself and was brought in to the hospital by police. - Case management following - Physical therapy, patient walking 150 feet with standby assist rolling walker , indicating home with no PT recommendations - occupational therapy. Indication patient will need 31 bedside commode, home versus rehabilitation depending on progress - Supportive care. 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 The patient's ostomy bag exploded prior to arrival in the emergency department and reports indicate that he was covered in feces. - continue ostomy care. - Ostomy nurse consult requested. - Stooling continue MiraLAX with as needed Diane-Colace - To follow-up with Dr. Jansen regarding reversal when wound is completely healed Abnormal urinalysis. - Urine culture with contaminants. - Antibiotics discontinued - Ellis catheter changed in the emergency department - Continue to change Ellis on a monthly basis Diabetes mellitus. Improving hyperglycemia A1c 5.8 - metformin increased to 850 mg twice daily and monitor - sliding scale insulin with Accu-Cheks. 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 - wound care nurse following. Heel wound is improving.. Prophylaxis: SCDs and early ambulation. Continue subcutaneous heparin Discharge Planning Accepted by good Yair when cleared by plastic surgery Jai Hawkins MD May 14, 2017 09:44
[2017-05-14 12:00] VITALS: BP 99/51; PULSE 71; RESP 18; TEMP 96.4; O2SAT 98
[2017-05-14] MEDS ORDERED: ONDANSETRON HCL 4 MG/2 ML VIAL IV PUSH ONE (12:00)
[2017-05-14] MEDS ORDERED: PROPOFOL 200 MG/20 ML AMP IV ONE (12:00)
[2017-05-14] MEDS ORDERED: PHENYLEPH/NS 1000 MCG/10 ML SYR IV ONE (12:00)
[2017-05-14 16:00] VITALS: BP 117/63; PULSE 70; RESP 20; TEMP 96.1; O2SAT 97
[2017-05-14] MEDS ORDERED: CIPROFLOXACIN 400 MG PREMIX 200 ML ONE (19:04)
[2017-05-14] MEDS ORDERED: POVIDONE IODINE 10% OINT 30 GM TUBE ONE (19:25)
--- NOTE | 2017-05-14 19:36 | HHI.PR ---
Immediate Post Op Note Procedure Date: May 14, 2017 Pre Op Diagnosis: (1) Open wound of scrotum Post Op Diagnosis: (1) Open wound of scrotum Surgeon: Brittney Tobin MD Shovel Log Loader Operator(s): Holly Baum PA-C Procedure: Irrigation and excisional debridement of wound of scrotum and closure of wound with local advancement flap. Complications: n/a Specimen(s) removed: n/a Estimated blood loss: n/a Anesthesia: General Drains: [place] Tourniquet time (min at mmHg) n/a Patient to: PACU Patient Condition: Good Date/Time of Procedure: SEE SURGICAL CARE RECORD Vianney Baum May 14, 2017 19:36
[2017-05-14] MEDS ORDERED: DO NOT ADM ANY ANTICOAGULANT DRUGS PRN (19:50)
[2017-05-14] MEDS ORDERED: fentaNYL CITRATE 250 MCG/5 ML AMP ONE (19:58)
[2017-05-14 20:00] VITALS: BP 130/67; PULSE 73; RESP 17; TEMP 97.4; O2SAT 97
[2017-05-15] VITALS (8 sets, daily range): BP systolic 109–133; BP diastolic 60–98; PULSE 65–78; RESP 17–20; TEMP 95.5–98.2; O2SAT 95–100
[2017-05-15] MEDS: INSULIN ASPART SUPPLEMENTAL SCALE SQ SCH ×4 (05:49→21:00)
[2017-05-15] MEDS: SODIUM HYPOCHLORITE 0.25% 500 ML BTL TOPICAL SCH (09:00)
[2017-05-15] MEDS: JUVEN POWDER 1 PACK G-TUBE SCH ×2 (09:00→21:00)
--- NOTE | 2017-05-15 09:40 | HHI.PR ---
Subjective Remarks Follow-up diabetes mellitus. Improving hyperglycemia fingersticks less than 200 yesterday. Discussed with RN Objective Vitals Vital Signs Date Time Temp Pulse Resp B/P Pulse Ox O2 Delivery O2 Flow Rate FiO2 05/15/17 08:00 95.5 65 18 121/69 95 05/15/17 04:00 96.2 66 17 109/60 98 05/15/17 00:00 97.0 71 17 124/62 97 05/14/17 20:15 98.1 68 16 121/63 100 Nasal Cannula 2 05/14/17 20:00 69 16 133/66 100 Nasal Cannula 2 05/14/17 20:00 97.4 73 17 130/67 97 05/14/17 19:53 69 16 133/68 100 Nasal Cannula 2 05/14/17 19:45 97.7 67 10 142/67 100 Nasal Cannula 2 05/14/17 16:00 96.1 70 20 117/63 97 05/14/17 12:00 96.4 71 18 99/51 98 I/O 05/14/17 05/14/17 05/14/17 05/15/17 05/15/17 05/15/17 07:00 15:00 23:00 07:00 15:00 23:00 Intake Total 240 ml 240 ml 740 ml 240 ml 0 ml Output Total 900 ml 1220 ml 800 ml Balance -660 ml 240 ml -480 ml -560 ml 0 ml Intake Oral 240 ml 240 ml 240 ml 240 ml 0 ml Other 500 ml Output Urine Total 900 ml 300 ml 800 ml Stool Total 200 ml Estimated Blood Loss 20 ml Other 700 ml Objective Remarks GENERAL: Well-developed in no acute distress. HEENT: Head is normocephalic NECK: Supple without any masses. Trachea midline no deviation. No JVD, CARDIAC: Regular rhythm, regular rate. S1/S2 are heard. No murmurs gallops or rubs. LUNGS: Clear to auscultation bilaterally. ABDOMEN: Soft, nontender. Nondistended. Bowel sounds heard in all 4 quadrants. EXTREMITIES: No edema, pulses are equal bilaterally. No cyanosis or clubbing NEUROLOGY: Mood and affect appear appropriate. No focal weakness GENITOURINARY: Ellis catheter is in place. Procedures 05/06/17 OPERATION: 1. Excisional debridement of skin, subcutaneous tissue of open scrotal wound. 2. Reconstruction of scrotal wound with local advancement flap. 3. Closure of open scrotal wound with allograft, 7 x 10 cm. 05/14/17 Irrigation and excisional debridement of wound of scrotum and closure of wound with local advancement flap. Date of Insertion: April 22, 2017 A/P Problem List: (1) UTI (urinary tract infection) ICD Code: N39.0 Status: Acute (2) Failure to thrive in adult ICD Code: R62.7 Status: Acute Assessment and Plan 67-year-old male brought into the hospital due to inability to care for himself. Patient with recent history of Tony's gangrene status post extensive debridement. Necrotizing fasciitis/ Tony's Gangrene Treated for during recent hospitalization. S/p excision and debridement with washout of necrotizing fasciitis of the perineum, scrotum, and bilateral groin region. He had bacteremia and multiple organisms growing from the wound. He completed a course of antibiotics per ID. 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 Continue wound care. 05/14/17 Irrigation and excisional debridement of wound of scrotum and closure of wound with local advancement flap. -Continue Ellis care Inability to care for self The patient was discharged home from the senior living facility and did not have running water. He had a hard time taking care of himself and was brought in to the hospital by police. - Case management following - Physical therapy, patient walking 150 feet with standby assist rolling walker , indicating home with no PT recommendations - occupational therapy. Indication patient will need 31 bedside commode, home versus rehabilitation depending on progress - Supportive care. 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 The patient's ostomy bag exploded prior to arrival in the emergency department and reports indicate that he was covered in feces. - continue ostomy care. - Ostomy nurse consult requested. - Stooling continue MiraLAX with as needed Diane-Colace - To follow-up with Dr. Ritter regarding reversal when wound is completely healed Abnormal urinalysis. - Urine culture with contaminants. - Antibiotics discontinued - Ellis catheter changed in the emergency department - Continue to change Ellis on a monthly basis Diabetes mellitus. Improving hyperglycemia A1c 5.8 - metformin increased to 850 mg twice daily and monitor - sliding scale insulin with Accu-Cheks. 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 - wound care nurse following. Heel wound is improving.. Prophylaxis: SCDs and early ambulation. Continue subcutaneous heparin Discharge Planning Accepted by robinson Mazariegos when cleared by plastic surgery Jai Hawkins MD May 15, 2017 09:40 Jai Hawkins MD May 15, 2017 09:40
[2017-05-15] MEDS: METOPROLOL TARTRATE 25 MG TAB PO SCH ×2 (10:02→21:19)
[2017-05-15] MEDS: LIPASE/PROTEASE/AMYLASE (24,000/76,000/120,000) CAP PO SCH ×3 (10:02→17:26)
[2017-05-15] MEDS: metFORMIN HCL 850 MG TAB PO SCH ×2 (10:03→17:26)
[2017-05-15] MEDS: POLYETHYLENE GLYCOL 17 GM PKG PO SCH (10:03)
[2017-05-15] MEDS: HEPARIN SODIUM - SQ 10,000 UNITS/ML VIAL SQ SCH ×2 (10:03→21:19)
[2017-05-15] MEDS: PANTOPRAZOLE SOD 40 MG DELAYED RELEASE TAB PO SCH (10:03)
--- NOTE | 2017-05-15 14:52 | PD.PLAS.PN ---
Subjective Remarks Patient is 1 day status post irrigation and debridement of scrotal wound with local flap closure. The patient denies any pain. Objective Vital Signs Date Time Temp Pulse Resp B/P Pulse Ox O2 Delivery O2 Flow Rate FiO2 05/15/17 13:34 100 05/15/17 12:00 98.2 78 17 129/98 98 05/15/17 08:00 95.5 65 18 121/69 95 05/15/17 04:00 96.2 66 17 109/60 98 05/15/17 00:00 97.0 71 17 124/62 97 05/14/17 20:15 98.1 68 16 121/63 100 Nasal Cannula 2 05/14/17 20:00 69 16 133/66 100 Nasal Cannula 2 05/14/17 20:00 97.4 73 17 130/67 97 05/14/17 19:53 69 16 133/68 100 Nasal Cannula 2 05/14/17 19:45 97.7 67 10 142/67 100 Nasal Cannula 2 05/14/17 16:00 96.1 70 20 117/63 97 I/O 05/14/17 05/14/17 05/14/17 05/15/17 05/15/17 05/15/17 07:00 15:00 23:00 07:00 15:00 23:00 Intake Total 240 ml 240 ml 740 ml 240 ml 0 ml Output Total 900 ml 1220 ml 800 ml Balance -660 ml 240 ml -480 ml -560 ml 0 ml Intake Oral 240 ml 240 ml 240 ml 240 ml 0 ml Other 500 ml Output Urine Total 900 ml 300 ml 800 ml Stool Total 200 ml Estimated Blood Loss 20 ml Other 700 ml Exam Findings Dressing is in place. On removal, wound is healing well. There is no evidence of infection. Drain is in place. Drainage is serosanguineous and without odor. Assessment and Plan Diagnosis: (1) Open wound of scrotum Assessment and Plan Drain is left in place. Wounds are swabbed with betadine swabs and dressed with adaptic and ABD pads, which are secured with mesh underwear. Will consider drain removal tomorrow. This is discussed with the RN. Also discussed with Dr. Tobin. Vianney Baum May 15, 2017 14:52
--- NOTE | 2017-05-15 18:54 | MP ---
cc: JANETH TOBIN M.D. DATE OF SURGERY: 05/14/2017. PREOPERATIVE DIAGNOSIS: Open wound of scrotum. POSTOPERATIVE DIAGNOSIS: Open wound of scrotum. OPERATIVE PROCEDURE PERFORMED: Staged reconstruction of open scrotal wound with flap closure. SURGEON: Janeth Tobin M.D. BIOCHEMICAL DEVELOPMENT ENGINEER: Holly Baum PA-C. ANESTHESIA: General. INDICATIONS FOR THE PROCEDURE: A 67-year-old male with history of Tony's gangrene to the scrotal region. This was adequately treated by Dr. Norbert Cassidy. Once the wound had healed, we began the reconstruction. The patient had this started last week and today we were able to close it completely using a scrotal flap. OPERATIVE TIME: Approximately 35 minutes DESCRIPTION OF THE PROCEDURE IN DETAIL: The patient was seen preoperatively and taken to the operating room and placed in a supine position in the lithotomy position. His scrotal area and groin were prepped with Betadine and draped in the usual sterile fashion. The Biofilm was then removed from all the tissues including the two testes as well as the adjacent tissue mechanically and then the wound was copiously irrigated with a dilute solution of Betadine solution and saline. The flaps which previously had been created were then advanced and held in place with surgical clips. This completely covered the testes. A 1/2-inch [place] drain was then placed. The drain was placed through the wound from today and a separate opening just 1-1/2 inches superior to the closure through the flap. The area was infiltrated with the Betadine and saline solution. A dressing was then applied using povidone-iodine ointment, Adaptic Telfa, ABD pads and secured with his mesh underwear. The patient was then taken from the operating room to the recovery room in satisfactory condition having tolerated the procedure well. MD TIFFANY Crow/SADAF /7:44 PM /6:36 PM
[2017-05-16] VITALS (7 sets, daily range): BP systolic 110–128; BP diastolic 57–77; PULSE 68–82; RESP 18–20; TEMP 96–98.1; O2SAT 96–100
[2017-05-16] MEDS: INSULIN ASPART SUPPLEMENTAL SCALE SQ SCH ×4 (06:25→21:56)
[2017-05-16] MEDS: SODIUM HYPOCHLORITE 0.25% 500 ML BTL TOPICAL SCH (09:00)
[2017-05-16] MEDS: JUVEN POWDER 1 PACK G-TUBE SCH ×2 (09:00→17:29)
[2017-05-16] MEDS: POVIDONE IODINE 10% OINT 30 GM TUBE TOPICAL SCH (09:00)
[2017-05-16] MEDS: METOPROLOL TARTRATE 25 MG TAB PO SCH ×2 (09:00→21:56)
[2017-05-16] MEDS: LIPASE/PROTEASE/AMYLASE (24,000/76,000/120,000) CAP PO SCH ×3 (09:06→17:27)
[2017-05-16] MEDS: POLYETHYLENE GLYCOL 17 GM PKG PO SCH (09:06)
[2017-05-16] MEDS: PANTOPRAZOLE SOD 40 MG DELAYED RELEASE TAB PO SCH (09:06)
[2017-05-16] MEDS: HEPARIN SODIUM - SQ 10,000 UNITS/ML VIAL SQ SCH ×2 (09:06→21:57)
[2017-05-16] MEDS: metFORMIN HCL 850 MG TAB PO SCH ×2 (09:06→17:27)
--- NOTE | 2017-05-16 09:34 | PD.PLAS.PN ---
Subjective Remarks Patient is 2 days status post irrigation and debridement of scrotal wound and closure with local advancement flap on 05/13/17. Patient has no acute complaints. Objective Vital Signs Date Time Temp Pulse Resp B/P Pulse Ox O2 Delivery O2 Flow Rate FiO2 05/16/17 08:04 98.1 70 18 117/58 97 05/16/17 00:00 96.9 68 20 110/57 97 05/15/17 20:17 98 21 05/15/17 20:00 97.1 77 20 133/64 96 05/15/17 16:00 97.6 75 18 121/65 98 05/15/17 13:34 100 05/15/17 12:00 98.2 78 17 129/98 98 I/O 05/15/17 05/15/17 05/15/17 05/16/17 05/16/17 05/16/17 07:00 15:00 23:00 07:00 15:00 23:00 Intake Total 240 ml 0 ml 1080 ml 240 ml Output Total 800 ml 100 ml 2500 ml 1400 ml Balance -560 ml -100 ml -1420 ml -1160 ml Intake Oral 240 ml 0 ml 1080 ml 240 ml Output Urine Total 800 ml 2400 ml 1300 ml Stool Total 100 ml 100 ml 100 ml Exam Findings Dressing is in place. On removal, wound is healing well. Amount of drainage is significantly reduced. There is no evidence of infection. Drain is in place. Drainage is serosanguineous and without odor. Sutures and aneta are in place. Assessment and Plan Diagnosis: (1) Open wound of scrotum Assessment and Plan Drain is left in place. Wounds are swabbed with betadine swabs and dressed with adaptic and ABD pads, which are secured with mesh underwear. Will begin daily dressing changes with application of povidone iodine ointment. Discussed with Vianney Mortensen May 16, 2017 09:34
--- NOTE | 2017-05-16 09:40 | HHI.PR ---
Subjective Remarks Follow-up diabetes mellitus. Hyperglycemia improving less than 200 yesterday except during lunch. Discussed with RN to clarify with plastic surgery discharge plans Objective Vitals Vital Signs Date Time Temp Pulse Resp B/P Pulse Ox O2 Delivery O2 Flow Rate FiO2 05/16/17 08:04 98.1 70 18 117/58 97 05/16/17 00:00 96.9 68 20 110/57 97 05/15/17 20:17 98 21 05/15/17 20:00 97.1 77 20 133/64 96 05/15/17 16:00 97.6 75 18 121/65 98 05/15/17 13:34 100 05/15/17 12:00 98.2 78 17 129/98 98 I/O 05/15/17 05/15/17 05/15/17 05/16/17 05/16/17 05/16/17 07:00 15:00 23:00 07:00 15:00 23:00 Intake Total 240 ml 0 ml 1080 ml 240 ml Output Total 800 ml 100 ml 2500 ml 1400 ml Balance -560 ml -100 ml -1420 ml -1160 ml Intake Oral 240 ml 0 ml 1080 ml 240 ml Output Urine Total 800 ml 2400 ml 1300 ml Stool Total 100 ml 100 ml 100 ml Objective Remarks GENERAL: Well-developed in no acute distress. HEENT: Head is normocephalic NECK: Supple without any masses. Trachea midline no deviation. No JVD, CARDIAC: Regular rhythm, regular rate. S1/S2 are heard. No murmurs gallops or rubs. LUNGS: Clear to auscultation bilaterally. ABDOMEN: Soft, nontender. Nondistended. Bowel sounds heard in all 4 quadrants. EXTREMITIES: No edema, pulses are equal bilaterally. No cyanosis or clubbing NEUROLOGY: Mood and affect appear appropriate. No focal weakness GENITOURINARY: Ellis catheter is in place. Procedures 05/06/17 OPERATION: 1. Excisional debridement of skin, subcutaneous tissue of open scrotal wound. 2. Reconstruction of scrotal wound with local advancement flap. 3. Closure of open scrotal wound with allograft, 7 x 10 cm. 05/14/17 Irrigation and excisional debridement of wound of scrotum and closure of wound with local advancement flap. Date of Insertion: April 22, 2017 A/P Problem List: (1) UTI (urinary tract infection) ICD Code: N39.0 Status: Acute (2) Failure to thrive in adult ICD Code: R62.7 Status: Acute Assessment and Plan 67-year-old male brought into the hospital due to inability to care for himself. Patient with recent history of Tony's gangrene status post extensive debridement. Necrotizing fasciitis/ Tony's Gangrene Treated for during recent hospitalization. S/p excision and debridement with washout of necrotizing fasciitis of the perineum, scrotum, and bilateral groin region. He had bacteremia and multiple organisms growing from the wound. He completed a course of antibiotics per ID. 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 05/14/17 Irrigation and excisional debridement of wound of scrotum and closure of wound with local advancement flap. Continue wound care. Drain in place. We'll clarify with plastic surgery discharge plans -Continue Ellis care Inability to care for self The [facility] and did not have running water. He had a hard time taking care of himself and was brought in to the hospital by police. - Case management following - Physical therapy, patient walking 150 feet with standby assist rolling walker , indicating home with no PT recommendations - occupational therapy. Indication patient will need 31 bedside commode, home versus rehabilitation depending on progress - Supportive care. 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 The patient's ostomy bag exploded prior to arrival in the emergency department and reports indicate that he was covered in feces. - continue ostomy care. - Ostomy nurse consult requested. - Stooling continue MiraLAX with as needed Diane-Colace - To follow-up with Dr. Jansen regarding reversal when wound is completely healed Abnormal urinalysis. - Urine culture with contaminants. - Antibiotics discontinued - Ellis catheter changed in the emergency department - Continue to change Ellis on a monthly basis Diabetes mellitus. Improving hyperglycemia A1c 5.8 -Continue metformin 850 mg twice daily and monitor - sliding scale insulin with Accu-Cheks. 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 - wound care nurse following. Heel wound is improving.. Prophylaxis: SCDs and early ambulation. Continue subcutaneous heparin Discharge Planning Accepted by good Yair when cleared by plastic surgery Jai Hawkins MD May 16, 2017 09:40
--- NOTE | 2017-05-16 15:30 | PD.WCN.NOT ---
Wound Consult Description: Right heel wound. Recommendation: Continue to float heels off mattress surface while in bed. Additional Information: Right heel wound was unstageable on last assessment with black intact eschar. Heel presents today with dry flaking skin without eschar. Right Heel wound has resolved. Left heel is unremarkable. Patients feet were placed into heel raiser boots before leaving room. Emma Richardson [facility] May 16, 2017 15:30
[2017-05-17] MEDS: INSULIN ASPART SUPPLEMENTAL SCALE SQ SCH ×4 (05:09→21:21)
[2017-05-17 08:00] VITALS: BP 113/66; PULSE 69; RESP 15; TEMP 95.7; O2SAT 97
--- NOTE | 2017-05-17 08:18 | HHI.PR ---
Subjective Remarks resting comfortably with no distress. denies pain. no new complaints. Objective Vitals Vital Signs Date Time Temp Pulse Resp B/P Pulse Ox O2 Delivery O2 Flow Rate FiO2 05/16/17 23:44 97.1 71 20 117/58 98 05/16/17 20:24 21 05/16/17 20:00 96.0 82 19 128/65 96 05/16/17 16:00 96.0 76 18 119/77 100 05/16/17 12:00 97.4 68 18 123/71 97 05/16/17 10:13 96 I/O 05/16/17 05/16/17 05/16/17 05/17/17 05/17/17 05/17/17 07:00 15:00 23:00 07:00 15:00 23:00 Intake Total 240 ml 240 ml 240 ml 360 ml Output Total 1400 ml 2200 ml 2200 ml Balance -1160 ml 240 ml -1960 ml -1840 ml Intake Oral 240 ml 240 ml 240 ml 360 ml Output Urine Total 1300 ml 2000 ml 2000 ml Stool Total 100 ml 200 ml 200 ml Imaging Last Impressions Chest X-Ray 04/22/17 0000 Signed Impressions: Service Date/Time: Saturday, April 22, 2017 13:57 - CONCLUSION: No acute cardiomegaly disease. Sudhir Velez MD Objective Remarks GENERAL: This is a well-nourished, well-developed patient, in no apparent distress. CARDIOVASCULAR: Regular rate and regular rhythm without murmurs, gallops, or rubs. RESPIRATORY: Clear to auscultation. Breath sounds equal bilaterally. No wheezes , rales, or rhonchi. GASTROINTESTINAL: Abdomen soft, non-tender, nondistended. Normal, active bowel sounds- colostomy in place. MUSCULOSKELETAL: Extremities without clubbing, cyanosis, or edema. NEURO: Alert & Oriented x4 to person, place, time, situation. Moves all ext x4 Procedures 05/06/17 OPERATION: 1. Excisional debridement of skin, subcutaneous tissue of open scrotal wound. 2. Reconstruction of scrotal wound with local advancement flap. 3. Closure of open scrotal wound with allograft, 7 x 10 cm. 05/14/17 Irrigation and excisional debridement of wound of scrotum and closure of wound with local advancement flap. Medications and IVs Current Medications Sodium Chloride (NS 1000 ml Inj) 1,000 ml @ 1,000 mls/hr Q1H IV Last administered on 04/22/17 12:24; Start 04/22/17 at 11:51; Stop 04/22/17 at 12:50 ; Status DC Sodium Chloride (NS Flush) 2 ml UNSCH PRN IV FLUSH FLUSH AFTER USING IV ACCESS ; Start 04/22/17 at 12:00; Stop 05/01/17 at 11:22; Status DC Insulin Human Regular (NovoLIN R INJ) 4 units ONCE ONCE SQ Last administered on 04/22/17 13:23; Start 04/22/17 at 13:00; Stop 04/22/17 at 13:01; Status DC Potassium Chloride (KCl) 30 meq ONCE ONCE PO Last administered on 04/22/17 13 :24; Start 04/22/17 at 13:00; Stop 04/22/17 at 13:01; Status DC Insulin Detemir (Levemir Inj) 22 units DAILY SQ ; Start 04/22/17 at 14:00; Stop 04/22/17 at 15:23; Status DC Metoprolol Tartrate (Lopressor) 25 mg Q12HR PO Last administered on 05/16/17 21:56; Start 04/22/17 at 21:00 Amylase/Lipase/ Protease (Creon 24-76-120) 2 cap TID PO Last administered on 17:27; Start 04/22/17 at 18:00 Pantoprazole Sodium (Protonix) 40 mg DAILY PO Last administered on 05/16/17 09 :06; Start 04/23/17 at 09:00 Sodium Chloride (NS Flush) 2 ml UNSCH PRN IV FLUSH FLUSH AFTER USING IV ACCESS ; Start 04/22/17 at 13:45; Stop 05/01/17 at 11:22; Status DC Sodium Chloride (NS Flush) 2 ml BID IV FLUSH Last administered on 05/01/17 09: 41; Start 04/22/17 at 21:00; Stop 05/01/17 at 11:22; Status DC Acetaminophen (Tylenol) 650 mg Q4H PRN PO TEMP > 100.4; Start 04/22/17 at 13:45 Ondansetron HCl (Zofran Inj) 4 mg Q6H PRN IVP NAUSEA OR VOMITING; Start at 13:45; Stop 05/01/17 at 11:22; Status DC Acetaminophen (Tylenol) 650 mg Q6H PRN PO PAIN SCALE 1 TO 2; Start 04/22/17 at 13:45 Oxycodone HCl (Roxicodone) 5 mg Q4H PRN PO PAIN SCALE 3 TO 10; Start 04/22/17 at 13:45 Naloxone HCl 0.4 mg 0.4 mg UNSCH PRN IV SEE LABEL COMMENTS; Start 04/22/17 at 13:45; Stop 05/01/17 at 11:22; Status DC Ceftriaxone Sodium/Sodium Chloride (Rocephin Inj/NS Inj) 100 ml @ 200 mls/hr ONCE ONCE IV Last administered on 04/22/17 14:08; Start 04/22/17 at 14:00; Stop 04/22/17 at 14:29; Status DC Insulin Detemir (Levemir Inj) 22 units ONCE ONCE SQ Last administered on 17:02; Start 04/22/17 at 17:00; Stop 04/22/17 at 17:01; Status DC Insulin Detemir (Levemir Inj) 22 units DAILY SQ Last administered on 04/23/17 08:24; Start 04/23/17 at 09:00; Stop 04/23/17 at 10:12; Status DC Insulin Aspart 1 1 ACHS SLIDING SCALE SQ Last administered on 04/22/17 17:03 ; Start 04/22/17 at 16:00; Stop 04/22/17 at 19:14; Status DC Ceftriaxone Sodium/Sodium Chloride (Rocephin Inj/NS Inj) 100 ml @ 200 mls/hr Q24H IV Last administered on 04/23/17 08:17; Start 04/23/17 at 09:00; Stop 04/24/17 at 08:26; Status DC Insulin Aspart (NovoLOG SUPPLEMENTAL SCALE) 1 ACHS SLIDING SCALE SQ Last administered on 05/17/17 05:09; Start 04/22/17 at 21:00 Dextrose (D50w (Vial) Inj) 50 ml UNSCH PRN IV HYPOGLYCEMIA-SEE COMMENTS; Start 04/22/17 at 19:15 Glucagon (Glucagon Inj) 1 mg UNSCH PRN OTHER HYPOGLYCEMIA-SEE COMMENTS; Start 04/22/17 at 19:15 Metformin HCl (Glucophage) 500 mg BIDPC PO Last administered on 05/03/17 08:37 ; Start 04/23/17 at 18:00; Stop 05/03/17 at 11:04; Status DC Potassium Chloride (KCl) 30 meq ONCE ONCE PO Last administered on 04/23/17 12 :19; Start 04/23/17 at 11:00; Stop 04/23/17 at 11:37; Status DC Potassium Chloride (KCl) 20 meq ONCE ONCE PO Last administered on 04/23/17 12 :20; Start 04/23/17 at 11:00; Stop 04/23/17 at 11:37; Status DC Potassium Chloride (KCl) 20 meq ONCE ONCE PO Last administered on 04/24/17 09: 41; Start 04/24/17 at 09:00; Stop 04/24/17 at 09:01; Status DC Senna/Docusate Sodium (Diane-Colace) 2 tab BID PRN PO CONSTIPATION; Start at 13:00 Polyethylene Glycol (Miralax) 17 gm DAILY PO Last administered on 05/16/17 09: 06; Start 04/24/17 at 13:00 Heparin Sodium (Porcine) (Heparin Inj) 5,000 units Q12HR SQ Last administered on 05/16/17 21:57; Start 04/25/17 at 21:00 Sodium Hypochlorite (Dakin'S 0.25% Soln) W-D DRESSING TO SCRO... DAILY TOPICAL Last administered on 05/16/17 09:00; Start 04/28/17 at 17:00 Arginine HCl (Thomas Powder) 1 pack BID G-TUBE Last administered on 05/16/17 17 :29; Start 05/01/17 at 21:00 Ondansetron HCl (Zofran Odt) 4 mg Q6H PRN PO NAUSEA OR VOMITING; Start at 11:30 Metformin HCl 1000 mg 1,000 mg BIDPC PO Last administered on 05/05/17 09:00; Start 05/03/17 at 18:00; Stop 05/06/17 at 11:18; Status DC Lactated Ringer's (Lr 1000 ml Inj) 1,000 ml @ 30 mls/hr Q24H PRN IV SEE LABEL COMMENTS; Start 05/06/17 at 02:45; Stop 05/08/17 at 22:08; Status DC Metoprolol Tartrate (Lopressor) 25 mg CERAMIC DESIGN ENGINEER PRN PO SEE LABEL COMMENTS; Start 05/06/17 at 02:45; Stop 05/08/17 at 22:08; Status DC Povidone Iodine (Betadine 5% Antisepsis Kit) 1 applic CERAMIC DESIGN ENGINEER PRN EACH NARE SEE LABEL COMMENTS; Start 05/06/17 at 02:45; Stop 05/08/17 at 22:08; Status DC Chlorhexidine Gluconate 3 pack 3 pack CERAMIC DESIGN ENGINEER PRN TOPICAL SEE LABEL COMMENTS; Start 05/06/17 at 02:45; Stop 05/08/17 at 22:08; Status DC Ciprofloxacin/ Dextrose (Cipro 400 Mg Premix) 200 ml @ As Directed STK-MED ONCE .ROUTE Last administered on 05/06/17 11:47; Start 05/06/17 at 11:46; Stop 05/06/17 at 11:47; Status DC Bupivacaine HCl/ Epinephrine Bitart 30 ml 30 ml STK-MED ONCE .ROUTE Last administered on 05/06/17 12:05; Start 05/06/17 at 12:03; Stop 05/06/17 at 12:04 ; Status DC Ciprofloxacin/ Dextrose (Cipro 400 Mg Premix) 200 ml @ 200 mls/hr Q12H IV Last administered on 05/09/17 12:21; Start 05/06/17 at 23:00; Stop 05/09/17 at 22:59; Status DC Fentanyl Citrate (fentaNYL INJ) 100 mcg STK-MED ONCE .ROUTE ; Start 05/06/17 at 13:37; Stop 05/06/17 at 13:38; Status DC Miscellaneous Information ALL NURSING DEPARTME... UNSCH PRN .XX SEE LABEL COMMENTS; Start 05/06/17 at 13:42; Stop 05/07/17 at 13:41; Status DC Metformin HCl (Glucophage) 500 mg BIDPC PO Last administered on 05/10/17 17:35 ; Start 05/09/17 at 09:00; Stop 05/11/17 at 09:03; Status DC Metformin HCl 850 mg 850 mg BIDPC PO Last administered on 05/16/17 17:27; Start 05/11/17 at 09:15 Sodium Chloride 500 ml @ 30 mls/hr [id number] PRN IV SEE LABEL COMMENTS; Start at 06:45; Stop 05/17/17 at 06:44; Status DC Ciprofloxacin/ Dextrose (Cipro 400 Mg Premix) 200 ml @ As Directed STK-MED ONCE .ROUTE Last administered on 05/14/17t 19:05; Start 05/14/17 at 19:04; Stop 05/14/17 at 19:05; Status DC Povidone Iodine (Betadine 10% Oint) 30 applic STK-MED ONCE .ROUTE ; Start at 19:25; Stop 05/14/17 at 19:26; Status DC Fentanyl Citrate (fentaNYL INJ) 250 mcg STK-MED ONCE .ROUTE ; Start 05/14/17 at 19:58; Stop 05/14/17 at 19:59; Status DC Miscellaneous Information ALL NURSING DEPARTME... UNSCH PRN .XX SEE LABEL COMMENTS; Start 05/14/17 at 19:50; Stop 05/15/17 at 19:49; Status DC Povidone Iodine (Betadine 10% Oint) 1 applic DAILY TOPICAL Last administered on 05/16/17t 09:00; Start 05/16/17 at 09:00 Date of Insertion: April 22, 2017 A/P Assessment and Plan A/P Necrotizing fasciitis/ Tony's Gangrene Treated for during recent hospitalization. S/p excision and debridement with washout of necrotizing fasciitis of the perineum, scrotum, and bilateral groin region. He had bacteremia and multiple organisms growing from the wound. He completed a course of antibiotics per ID. 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 05/14/17 Irrigation and excisional debridement of wound of scrotum and closure of wound with local advancement flap. Continue wound care. management per plastic surgery. Inability to care for self The patient was discharged home from the residential facility and did not have running water. He had a hard time taking care of himself and was brought in to the hospital by police. - Case management following - Physical therapy, patient walking 150 feet with standby assist rolling walker , indicating home with no PT recommendations - occupational therapy. Indication patient will need 31 bedside commode, home versus rehabilitation depending on progress - Supportive care. 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 The patient's ostomy bag exploded prior to arrival in the emergency department and reports indicate that he was covered in feces. - continue ostomy care. - Ostomy nurse consult requested. - Stooling continue MiraLAX with as needed Diane-Colace - To follow-up with Dr. Jansen regarding reversal when wound is completely healed Abnormal urinalysis. - Urine culture with contaminants. - Ellis catheter changed in the emergency department - Continue to change Ellis on a monthly basis Diabetes mellitus. Improving hyperglycemia A1c 5.8 -Continue metformin 850 mg twice daily and monitor - sliding scale insulin with Accu-Cheks. 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 - wound care nurse following. Heel wound is improving.. Prophylaxis: SCDs and early ambulation. Continue subcutaneous heparin Discharge Planning when cleared by plastic surgery. Madina Brice MD May 17, 2017 08:18
[2017-05-17] MEDS: METOPROLOL TARTRATE 25 MG TAB PO SCH ×2 (08:34→20:03)
[2017-05-17] MEDS: POLYETHYLENE GLYCOL 17 GM PKG PO SCH (08:34)
[2017-05-17] MEDS: LIPASE/PROTEASE/AMYLASE (24,000/76,000/120,000) CAP PO SCH ×3 (08:34→17:37)
[2017-05-17] MEDS: PANTOPRAZOLE SOD 40 MG DELAYED RELEASE TAB PO SCH (08:34)
[2017-05-17] MEDS: metFORMIN HCL 850 MG TAB PO SCH ×2 (08:34→17:38)
[2017-05-17] MEDS: JUVEN POWDER 1 PACK G-TUBE SCH ×2 (08:35→20:04)
[2017-05-17] MEDS: POVIDONE IODINE 10% OINT 30 GM TUBE TOPICAL SCH (08:36)
[2017-05-17] MEDS: SODIUM HYPOCHLORITE 0.25% 500 ML BTL TOPICAL SCH (08:36)
[2017-05-17] MEDS: HEPARIN SODIUM - SQ 10,000 UNITS/ML VIAL SQ SCH ×2 (08:36→20:03)
[2017-05-17 12:00] VITALS: BP 117/62; PULSE 78; RESP 19; TEMP 97.1; O2SAT 99
[2017-05-17 16:00] VITALS: BP 119/59; PULSE 75; RESP 17; TEMP 95.9; O2SAT 98
[2017-05-17 20:00] VITALS: BP 137/61; PULSE 82; RESP 18; TEMP 97.8; O2SAT 95
[2017-05-18] VITALS: BP 131/65; PULSE 72; RESP 16; TEMP 97.7; O2SAT 96
[2017-05-18] MEDS: INSULIN ASPART SUPPLEMENTAL SCALE SQ SCH ×4 (06:05→21:10)
[2017-05-18 08:00] VITALS: BP 113/65; PULSE 69; RESP 17; TEMP 95.8; O2SAT 97
[2017-05-18] MEDS: LIPASE/PROTEASE/AMYLASE (24,000/76,000/120,000) CAP PO SCH ×3 (08:28→16:53)
[2017-05-18] MEDS: PANTOPRAZOLE SOD 40 MG DELAYED RELEASE TAB PO SCH (08:28)
[2017-05-18] MEDS: HEPARIN SODIUM - SQ 10,000 UNITS/ML VIAL SQ SCH ×2 (08:28→21:06)
[2017-05-18] MEDS: POLYETHYLENE GLYCOL 17 GM PKG PO SCH (08:28)
[2017-05-18] MEDS: metFORMIN HCL 850 MG TAB PO SCH ×2 (08:28→16:53)
[2017-05-18] MEDS: METOPROLOL TARTRATE 25 MG TAB PO SCH ×2 (08:28→21:06)
[2017-05-18] MEDS: SODIUM HYPOCHLORITE 0.25% 500 ML BTL TOPICAL SCH ×2 (08:29→08:30)
[2017-05-18] MEDS: POVIDONE IODINE 10% OINT 30 GM TUBE TOPICAL SCH (08:29)
[2017-05-18] MEDS: JUVEN POWDER 1 PACK G-TUBE SCH ×2 (09:00→21:06)
[2017-05-18 11:19] VITALS: O2SAT 97
--- NOTE | 2017-05-18 11:25 | HHI.PR ---
Subjective Remarks resting comfortably with no distress. denies pain. no new complaints. Objective Vitals Vital Signs Date Time Temp Pulse Resp B/P Pulse Ox O2 Delivery O2 Flow Rate FiO2 05/18/17 11:19 97 21 05/18/17 08:00 95.8 69 17 113/65 97 05/18/17 00:00 97.7 72 16 131/65 96 05/17/17 21:04 21 05/17/17 20:00 97.8 82 18 137/61 95 05/17/17 16:00 95.9 75 17 119/59 98 05/17/17 12:00 97.1 78 19 117/62 99 I/O 05/17/17 05/17/17 05/17/17 05/18/17 05/18/17 05/18/17 07:00 15:00 23:00 07:00 15:00 23:00 Intake Total 360 ml 675 ml 420 ml 240 ml Output Total 2200 ml 776 ml 750 ml 850 ml Balance -1840 ml -101 ml -330 ml -610 ml Intake Oral 360 ml 675 ml 420 ml 240 ml Output Urine Total 2000 ml 775 ml 750 ml 850 ml Stool Total 200 ml 1 ml 0 ml 0 ml Imaging Last Impressions Chest X-Ray 04/22/17 0000 Signed Impressions: Service Date/Time: Saturday, April 22, 2017 13:57 - CONCLUSION: No acute cardiomegaly disease. Sudhir Velez MD Objective Remarks GENERAL: This is a well-nourished, well-developed patient, in no apparent distress. CARDIOVASCULAR: Regular rate and regular rhythm without murmurs, gallops, or rubs. RESPIRATORY: Clear to auscultation. Breath sounds equal bilaterally. No wheezes , rales, or rhonchi. GASTROINTESTINAL: Abdomen soft, non-tender, nondistended. Normal, active bowel sounds- colostomy in place. MUSCULOSKELETAL: Extremities without clubbing, cyanosis, or edema. NEURO: Alert & Oriented x4 to person, place, time, situation. Moves all ext x4 Procedures 05/06/17 OPERATION: 1. Excisional debridement of skin, subcutaneous tissue of open scrotal wound. 2. Reconstruction of scrotal wound with local advancement flap. 3. Closure of open scrotal wound with allograft, 7 x 10 cm. 05/14/17 Irrigation and excisional debridement of wound of scrotum and closure of wound with local advancement flap. Medications and IVs Current Medications Sodium Chloride (NS 1000 ml Inj) 1,000 ml @ 1,000 mls/hr Q1H IV Last administered on 04/22/17 12:24; Start 04/22/17 at 11:51; Stop 04/22/17 at 12:50 ; Status DC Sodium Chloride (NS Flush) 2 ml UNSCH PRN IV FLUSH FLUSH AFTER USING IV ACCESS ; Start 04/22/17 at 12:00; Stop 05/01/17 at 11:22; Status DC Insulin Human Regular (NovoLIN R INJ) 4 units ONCE ONCE SQ Last administered on 04/22/17 13:23; Start 04/22/17 at 13:00; Stop 04/22/17 at 13:01; Status DC Potassium Chloride (KCl) 30 meq ONCE ONCE PO Last administered on 04/22/17 13 :24; Start 04/22/17 at 13:00; Stop 04/22/17 at 13:01; Status DC Insulin Detemir (Levemir Inj) 22 units DAILY SQ ; Start 04/22/17 at 14:00; Stop 04/22/17 at 15:23; Status DC Metoprolol Tartrate (Lopressor) 25 mg Q12HR PO Last administered on 05/18/17 08:28; Start 04/22/17 at 21:00 Amylase/Lipase/ Protease (Creon 24-76-120) 2 cap TID PO Last administered on 08:28; Start 04/22/17 at 18:00 Pantoprazole Sodium (Protonix) 40 mg DAILY PO Last administered on 05/18/17 08 :28; Start 04/23/17 at 09:00 Sodium Chloride (NS Flush) 2 ml UNSCH PRN IV FLUSH FLUSH AFTER USING IV ACCESS ; Start 04/22/17 at 13:45; Stop 05/01/17 at 11:22; Status DC Sodium Chloride (NS Flush) 2 ml BID IV FLUSH Last administered on 05/01/17 09: 41; Start 04/22/17 at 21:00; Stop 05/01/17 at 11:22; Status DC Acetaminophen (Tylenol) 650 mg Q4H PRN PO TEMP > 100.4; Start 04/22/17 at 13:45 Ondansetron HCl (Zofran Inj) 4 mg Q6H PRN IVP NAUSEA OR VOMITING; Start at 13:45; Stop 05/01/17 at 11:22; Status DC Acetaminophen (Tylenol) 650 mg Q6H PRN PO PAIN SCALE 1 TO 2; Start 04/22/17 at 13:45 Oxycodone HCl (Roxicodone) 5 mg Q4H PRN PO PAIN SCALE 3 TO 10; Start 04/22/17 at 13:45 Naloxone HCl 0.4 mg 0.4 mg UNSCH PRN IV SEE LABEL COMMENTS; Start 04/22/17 at 13:45; Stop 05/01/17 at 11:22; Status DC Ceftriaxone Sodium/Sodium Chloride (Rocephin Inj/NS Inj) 100 ml @ 200 mls/hr ONCE ONCE IV Last administered on 04/22/17 14:08; Start 04/22/17 at 14:00; Stop 04/22/17 at 14:29; Status DC Insulin Detemir (Levemir Inj) 22 units ONCE ONCE SQ Last administered on 17:02; Start 04/22/17 at 17:00; Stop 04/22/17 at 17:01; Status DC Insulin Detemir (Levemir Inj) 22 units DAILY SQ Last administered on 04/23/17 08:24; Start 04/23/17 at 09:00; Stop 04/23/17 at 10:12; Status DC Insulin Aspart 1 1 ACHS SLIDING SCALE SQ Last administered on 04/22/17 17:03 ; Start 04/22/17 at 16:00; Stop 04/22/17 at 19:14; Status DC Ceftriaxone Sodium/Sodium Chloride (Rocephin Inj/NS Inj) 100 ml @ 200 mls/hr Q24H IV Last administered on 04/23/17 08:17; Start 04/23/17 at 09:00; Stop 04/24/17 at 08:26; Status DC Insulin Aspart (NovoLOG SUPPLEMENTAL SCALE) 1 ACHS SLIDING SCALE SQ Last administered on 05/18/17 06:05; Start 04/22/17 at 21:00 Dextrose (D50w (Vial) Inj) 50 ml UNSCH PRN IV HYPOGLYCEMIA-SEE COMMENTS; Start 04/22/17 at 19:15 Glucagon (Glucagon Inj) 1 mg UNSCH PRN OTHER HYPOGLYCEMIA-SEE COMMENTS; Start 04/22/17 at 19:15 Metformin HCl (Glucophage) 500 mg BIDPC PO Last administered on 05/03/17 08:37 ; Start 04/23/17 at 18:00; Stop 05/03/17 at 11:04; Status DC Potassium Chloride (KCl) 30 meq ONCE ONCE PO Last administered on 04/23/17 12 :19; Start 04/23/17 at 11:00; Stop 04/23/17 at 11:37; Status DC Potassium Chloride (KCl) 20 meq ONCE ONCE PO Last administered on 04/23/17 12 :20; Start 04/23/17 at 11:00; Stop 04/23/17 at 11:37; Status DC Potassium Chloride (KCl) 20 meq ONCE ONCE PO Last administered on 04/24/17 09: 41; Start 04/24/17 at 09:00; Stop 04/24/17 at 09:01; Status DC Senna/Docusate Sodium (Diane-Colace) 2 tab BID PRN PO CONSTIPATION; Start at 13:00 Polyethylene Glycol (Miralax) 17 gm DAILY PO Last administered on 05/18/17 08: 28; Start 04/24/17 at 13:00 Heparin Sodium (Porcine) (Heparin Inj) 5,000 units Q12HR SQ Last administered on 05/18/17 08:28; Start 04/25/17 at 21:00 Sodium Hypochlorite (Dakin'S 0.25% Soln) W-D DRESSING TO SCRO... DAILY TOPICAL Last administered on 05/17/17 08:36; Start 04/28/17 at 17:00 Arginine HCl (Thomas Powder) 1 pack BID G-TUBE Last administered on 05/16/17 17 :29; Start 05/01/17 at 21:00 Ondansetron HCl (Zofran Odt) 4 mg Q6H PRN PO NAUSEA OR VOMITING; Start at 11:30 Metformin HCl 1000 mg 1,000 mg BIDPC PO Last administered on 05/05/17 09:00; Start 05/03/17 at 18:00; Stop 05/06/17 at 11:18; Status DC Lactated Ringer's (Lr 1000 ml Inj) 1,000 ml @ 30 mls/hr Q24H PRN IV SEE LABEL COMMENTS; Start 05/06/17 at 02:45; Stop 05/08/17 at 22:08; Status DC Metoprolol Tartrate (Lopressor) 25 mg CANDY SEPARATOR ENROBING PRN PO SEE LABEL COMMENTS; Start 05/06/17 at 02:45; Stop 05/08/17 at 22:08; Status DC Povidone Iodine (Betadine 5% Antisepsis Kit) 1 applic CANDY SEPARATOR ENROBING PRN EACH NARE SEE LABEL COMMENTS; Start 05/06/17 at 02:45; Stop 05/08/17 at 22:08; Status DC Chlorhexidine Gluconate 3 pack 3 pack CANDY SEPARATOR ENROBING PRN TOPICAL SEE LABEL COMMENTS; Start 05/06/17 at 02:45; Stop 05/08/17 at 22:08; Status DC Ciprofloxacin/ Dextrose (Cipro 400 Mg Premix) 200 ml @ As Directed STK-MED ONCE .ROUTE Last administered on 05/06/17 11:47; Start 05/06/17 at 11:46; Stop 05/06/17 at 11:47; Status DC Bupivacaine HCl/ Epinephrine Bitart 30 ml 30 ml STK-MED ONCE .ROUTE Last administered on 05/06/17 12:05; Start 05/06/17 at 12:03; Stop 05/06/17 at 12:04 ; Status DC Ciprofloxacin/ Dextrose (Cipro 400 Mg Premix) 200 ml @ 200 mls/hr Q12H IV Last administered on 05/09/17 12:21; Start 05/06/17 at 23:00; Stop 05/09/17 at 22:59; Status DC Fentanyl Citrate (fentaNYL INJ) 100 mcg STK-MED ONCE .ROUTE ; Start 05/06/17 at 13:37; Stop 05/06/17 at 13:38; Status DC Miscellaneous Information ALL NURSING DEPARTME... UNSCH PRN .XX SEE LABEL COMMENTS; Start 05/06/17 at 13:42; Stop 05/07/17 at 13:41; Status DC Metformin HCl (Glucophage) 500 mg BIDPC PO Last administered on 05/10/17 17:35 ; Start 05/09/17 at 09:00; Stop 6/18/17 at 09:03; Status DC Metformin HCl 850 mg 850 mg BIDPC PO Last administered on 05/18/17 08:28; Start 05/11/17 at 09:15 Sodium Chloride 500 ml @ 30 mls/hr [id number] PRN IV SEE LABEL COMMENTS; Start at 06:45; Stop 05/17/17 at 06:44; Status DC Ciprofloxacin/ Dextrose (Cipro 400 Mg Premix) 200 ml @ As Directed STK-MED ONCE .ROUTE Last administered on 05/14/17 19:05; Start 05/14/17 at 19:04; Stop 05/14/17 at 19:05; Status DC Povidone Iodine (Betadine 10% Oint) 30 applic STK-MED ONCE .ROUTE ; Start at 19:25; Stop 05/14/17 at 19:26; Status DC Fentanyl Citrate (fentaNYL INJ) 250 mcg STK-MED ONCE .ROUTE ; Start 05/14/17 at 19:58; Stop 05/14/17 at 19:59; Status DC Miscellaneous Information ALL NURSING DEPARTME... UNSCH PRN .XX SEE LABEL COMMENTS; Start 05/14/17 at 19:50; Stop 05/15/17 at 19:49; Status DC Povidone Iodine (Betadine 10% Oint) 1 applic DAILY TOPICAL Last administered on 05/18/17 08:29; Start 05/16/17 at 09:00 Date of Insertion: April 22, 2017 A/P Assessment and Plan A/P Necrotizing fasciitis/ Tony's Gangrene Treated for during recent hospitalization. S/p excision and debridement with washout of necrotizing fasciitis of the perineum, scrotum, and bilateral groin region. He had bacteremia and multiple organisms growing from the wound. He completed a course of antibiotics per ID. 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 05/14/17 Irrigation and excisional debridement of wound of scrotum and closure of wound with local advancement flap. Continue wound care. management per plastic surgery. Inability to care for self The patient was discharged home from the [facility] and did not have running water. He had a hard time taking care of himself and was brought in to the hospital by police. - Case management following - Physical therapy, patient walking 150 feet with standby assist rolling walker , indicating home with no PT recommendations - occupational therapy. Indication patient will need 31 bedside commode, home versus rehabilitation depending on progress - Supportive care. 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 The patient's ostomy bag exploded prior to arrival in the emergency department and reports indicate that he was covered in feces. - continue ostomy care. - Ostomy nurse consult requested. - Stooling continue MiraLAX with as needed Diane-Colace - To follow-up with Dr. Jansen regarding reversal when wound is completely healed Abnormal urinalysis. - Urine culture with contaminants. - Ellis catheter changed in the emergency department - Continue to change Ellis on a monthly basis Diabetes mellitus. Improving hyperglycemia A1c 5.8 -Continue metformin 850 mg twice daily and monitor - sliding scale insulin with Accu-Cheks. 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 - wound care nurse following. Heel wound is improving.. Prophylaxis: SCDs and early ambulation. Continue subcutaneous heparin Discharge Planning when cleared by plastic surgery. Madina Brice MD May 18, 2017 11:25
[2017-05-18 12:00] VITALS: BP 118/60; PULSE 72; RESP 19; TEMP 97.2; O2SAT 97
[2017-05-18 16:00] VITALS: BP 116/63; PULSE 73; RESP 16; TEMP 96; O2SAT 97
[2017-05-18 20:00] VITALS: BP 123/61; PULSE 82; RESP 18; TEMP 98.2; O2SAT 97
[2017-05-19] VITALS: BP 120/58; PULSE 73; RESP 16; TEMP 97.3; O2SAT 100
[2017-05-19] MEDS: INSULIN ASPART SUPPLEMENTAL SCALE SQ SCH ×4 (06:33→21:00)
[2017-05-19 08:00] VITALS: BP 112/57; PULSE 76; RESP 16; TEMP 97.9; O2SAT 95
[2017-05-19] MEDS: JUVEN POWDER 1 PACK G-TUBE SCH ×2 (09:00→16:43)
[2017-05-19] MEDS: POLYETHYLENE GLYCOL 17 GM PKG PO SCH (09:04)
[2017-05-19] MEDS: metFORMIN HCL 850 MG TAB PO SCH ×2 (09:04→16:42)
[2017-05-19] MEDS: METOPROLOL TARTRATE 25 MG TAB PO SCH ×2 (09:04→21:50)
[2017-05-19] MEDS: LIPASE/PROTEASE/AMYLASE (24,000/76,000/120,000) CAP PO SCH ×3 (09:04→16:42)
[2017-05-19] MEDS: PANTOPRAZOLE SOD 40 MG DELAYED RELEASE TAB PO SCH (09:04)
[2017-05-19] MEDS: HEPARIN SODIUM - SQ 10,000 UNITS/ML VIAL SQ SCH ×2 (09:04→21:50)
[2017-05-19] MEDS: POVIDONE IODINE 10% OINT 30 GM TUBE TOPICAL SCH (09:05)
[2017-05-19] MEDS: SODIUM HYPOCHLORITE 0.25% 500 ML BTL TOPICAL SCH (09:05)
--- NOTE | 2017-05-19 10:05 | HHI.PR ---
Subjective Remarks in no acute distress. resting comfortably with no distress. no new complaints. d/w the RN and no acute issues over night. Objective Vitals Vital Signs Date Time Temp Pulse Resp B/P Pulse Ox O2 Delivery O2 Flow Rate FiO2 05/19/17 08:00 97.9 76 16 112/57 95 05/19/17 04:00 Room Air 05/19/17 00:00 97.3 73 16 120/58 100 05/19/17 00:00 Room Air 05/18/17 20:00 98.2 82 18 123/61 97 05/18/17 20:00 Room Air 05/18/17 16:00 96.0 73 16 116/63 97 05/18/17 12:00 97.2 72 19 118/60 97 05/18/17 11:19 97 21 I/O 05/18/17 05/18/17 05/18/17 05/19/17 05/19/17 05/19/17 07:00 15:00 23:00 07:00 15:00 23:00 Intake Total 240 ml 645 ml 475 ml 240 ml Output Total 850 ml 1000 ml 1750 ml 1900 ml Balance -610 ml -355 ml -1275 ml -1660 ml Intake Oral 240 ml 645 ml 475 ml 240 ml IV Total 0 ml Output Urine Total 850 ml 800 ml 1650 ml 1800 ml Stool Total 0 ml 200 ml 100 ml 100 ml # Bowel Movements 2 Imaging Last Impressions Chest X-Ray 04/22/17 0000 Signed Impressions: Service Date/Time: Saturday, April 22, 2017 13:57 - CONCLUSION: No acute cardiomegaly disease. Sudhir Velez MD Objective Remarks GENERAL: This is a well-nourished, well-developed patient, in no apparent distress. CARDIOVASCULAR: Regular rate and regular rhythm without murmurs, gallops, or rubs. RESPIRATORY: Clear to auscultation. Breath sounds equal bilaterally. No wheezes , rales, or rhonchi. GASTROINTESTINAL: Abdomen soft, non-tender, nondistended. Normal, active bowel sounds- colostomy in place. MUSCULOSKELETAL: Extremities without clubbing, cyanosis, or edema. NEURO: Alert & Oriented x4 to person, place, time, situation. Moves all ext x4 Procedures 05/06/17 OPERATION: 1. Excisional debridement of skin, subcutaneous tissue of open scrotal wound. 2. Reconstruction of scrotal wound with local advancement flap. 3. Closure of open scrotal wound with allograft, 7 x 10 cm. 05/14/17 Irrigation and excisional debridement of wound of scrotum and closure of wound with local advancement flap. Medications and IVs Current Medications Sodium Chloride (NS 1000 ml Inj) 1,000 ml @ 1,000 mls/hr Q1H IV Last administered on 04/22/17 12:24; Start 04/22/17 at 11:51; Stop 04/22/17 at 12:50 ; Status DC Sodium Chloride (NS Flush) 2 ml UNSCH PRN IV FLUSH FLUSH AFTER USING IV ACCESS ; Start 04/22/17 at 12:00; Stop 05/01/17 at 11:22; Status DC Insulin Human Regular (NovoLIN R INJ) 4 units ONCE ONCE SQ Last administered on 04/22/17 13:23; Start 04/22/17 at 13:00; Stop 04/22/17 at 13:01; Status DC Potassium Chloride (KCl) 30 meq ONCE ONCE PO Last administered on 04/22/17 13 :24; Start 04/22/17 at 13:00; Stop 04/22/17 at 13:01; Status DC Insulin Detemir (Levemir Inj) 22 units DAILY SQ ; Start 04/22/17 at 14:00; Stop 04/22/17 at 15:23; Status DC Metoprolol Tartrate (Lopressor) 25 mg Q12HR PO Last administered on 05/19/17 09:04; Start 04/22/17 at 21:00 Amylase/Lipase/ Protease (Creon 24-76-120) 2 cap TID PO Last administered on 09:04; Start 04/22/17 at 18:00 Pantoprazole Sodium (Protonix) 40 mg DAILY PO Last administered on 05/19/17 09 :04; Start 04/23/17 at 09:00 Sodium Chloride (NS Flush) 2 ml UNSCH PRN IV FLUSH FLUSH AFTER USING IV ACCESS ; Start 04/22/17 at 13:45; Stop 05/01/17 at 11:22; Status DC Sodium Chloride (NS Flush) 2 ml BID IV FLUSH Last administered on 05/01/17 09: 41; Start 04/22/17 at 21:00; Stop 05/01/17 at 11:22; Status DC Acetaminophen (Tylenol) 650 mg Q4H PRN PO TEMP > 100.4; Start 04/22/17 at 13:45 Ondansetron HCl (Zofran Inj) 4 mg Q6H PRN IVP NAUSEA OR VOMITING; Start at 13:45; Stop 05/01/17 at 11:22; Status DC Acetaminophen (Tylenol) 650 mg Q6H PRN PO PAIN SCALE 1 TO 2; Start 04/22/17 at 13:45 Oxycodone HCl (Roxicodone) 5 mg Q4H PRN PO PAIN SCALE 3 TO 10; Start 04/22/17 at 13:45 Naloxone HCl 0.4 mg 0.4 mg UNSCH PRN IV SEE LABEL COMMENTS; Start 04/22/17 at 13:45; Stop 05/01/17 at 11:22; Status DC Ceftriaxone Sodium/Sodium Chloride (Rocephin Inj/NS Inj) 100 ml @ 200 mls/hr ONCE ONCE IV Last administered on 04/22/17 14:08; Start 04/22/17 at 14:00; Stop 04/22/17 at 14:29; Status DC Insulin Detemir (Levemir Inj) 22 units ONCE ONCE SQ Last administered on 17:02; Start 04/22/17 at 17:00; Stop 04/22/17 at 17:01; Status DC Insulin Detemir (Levemir Inj) 22 units DAILY SQ Last administered on 04/23/17 08:24; Start 04/23/17 at 09:00; Stop 04/23/17 at 10:12; Status DC Insulin Aspart 1 1 ACHS SLIDING SCALE SQ Last administered on 04/22/17 17:03 ; Start 04/22/17 at 16:00; Stop 04/22/17 at 19:14; Status DC Ceftriaxone Sodium/Sodium Chloride (Rocephin Inj/NS Inj) 100 ml @ 200 mls/hr Q24H IV Last administered on 04/23/17 08:17; Start 04/23/17 at 09:00; Stop 04/24/17 at 08:26; Status DC Insulin Aspart (NovoLOG SUPPLEMENTAL SCALE) 1 ACHS SLIDING SCALE SQ Last administered on 05/19/17 06:33; Start 04/22/17 at 21:00 Dextrose (D50w (Vial) Inj) 50 ml UNSCH PRN IV HYPOGLYCEMIA-SEE COMMENTS; Start 04/22/17 at 19:15 Glucagon (Glucagon Inj) 1 mg UNSCH PRN OTHER HYPOGLYCEMIA-SEE COMMENTS; Start 04/22/17 at 19:15 Metformin HCl (Glucophage) 500 mg BIDPC PO Last administered on 05/03/17 08:37 ; Start 04/23/17 at 18:00; Stop 05/03/17 at 11:04; Status DC Potassium Chloride (KCl) 30 meq ONCE ONCE PO Last administered on 04/23/17 12 :19; Start 04/23/17 at 11:00; Stop 04/23/17 at 11:37; Status DC Potassium Chloride (KCl) 20 meq ONCE ONCE PO Last administered on 04/23/17 12 :20; Start 04/23/17 at 11:00; Stop 04/23/17 at 11:37; Status DC Potassium Chloride (KCl) 20 meq ONCE ONCE PO Last administered on 04/24/17 09: 41; Start 04/24/17 at 09:00; Stop 04/24/17 at 09:01; Status DC Senna/Docusate Sodium (Diane-Colace) 2 tab BID PRN PO CONSTIPATION; Start at 13:00 Polyethylene Glycol (Miralax) 17 gm DAILY PO Last administered on 05/19/17 09: 04; Start 04/24/17 at 13:00 Heparin Sodium (Porcine) (Heparin Inj) 5,000 units Q12HR SQ Last administered on 05/19/17 09:04; Start 04/25/17 at 21:00 Sodium Hypochlorite (Dakin'S 0.25% Soln) W-D DRESSING TO SCRO... DAILY TOPICAL Last administered on 05/19/17 09:05; Start 04/28/17 at 17:00 Arginine HCl (Thomas Powder) 1 pack BID G-TUBE Last administered on 05/19/17 09 :00; Start 05/01/17 at 21:00 Ondansetron HCl (Zofran Odt) 4 mg Q6H PRN PO NAUSEA OR VOMITING; Start at 11:30 Metformin HCl 1000 mg 1,000 mg BIDPC PO Last administered on 05/05/17 09:00; Start 05/03/17 at 18:00; Stop 05/06/17 at 11:18; Status DC Lactated Ringer's (Lr 1000 ml Inj) 1,000 ml @ 30 mls/hr Q24H PRN IV SEE LABEL COMMENTS; Start 05/06/17 at 02:45; Stop 05/08/17 at 22:08; Status DC Metoprolol Tartrate (Lopressor) 25 mg COFFEE SUPERVISOR PRN PO SEE LABEL COMMENTS; Start 05/06/17 at 02:45; Stop 05/08/17 at 22:08; Status DC Povidone Iodine (Betadine 5% Antisepsis Kit) 1 applic COFFEE SUPERVISOR PRN EACH NARE SEE LABEL COMMENTS; Start 05/06/17 at 02:45; Stop 05/08/17 at 22:08; Status DC Chlorhexidine Gluconate 3 pack 3 pack COFFEE SUPERVISOR PRN TOPICAL SEE LABEL COMMENTS; Start 05/06/17 at 02:45; Stop 05/08/17 at 22:08; Status DC Ciprofloxacin/ Dextrose (Cipro 400 Mg Premix) 200 ml @ As Directed STK-MED ONCE .ROUTE Last administered on 05/06/17 11:47; Start 05/06/17 at 11:46; Stop 05/06/17 at 11:47; Status DC Bupivacaine HCl/ Epinephrine Bitart 30 ml 30 ml STK-MED ONCE .ROUTE Last administered on 05/06/17 12:05; Start 05/06/17 at 12:03; Stop 05/06/17 at 12:04 ; Status DC Ciprofloxacin/ Dextrose (Cipro 400 Mg Premix) 200 ml @ 200 mls/hr Q12H IV Last administered on 05/09/17 12:21; Start 05/06/17 at 23:00; Stop 05/09/17 at 22:59; Status DC Fentanyl Citrate (fentaNYL INJ) 100 mcg STK-MED ONCE .ROUTE ; Start 05/06/17 at 13:37; Stop 05/06/17 at 13:38; Status DC Miscellaneous Information ALL NURSING DEPARTME... UNSCH PRN .XX SEE LABEL COMMENTS; Start 05/06/17 at 13:42; Stop 05/07/17 at 13:41; Status DC Metformin HCl (Glucophage) 500 mg BIDPC PO Last administered on 05/10/17 17:35 ; Start 05/09/17 at 09:00; Stop 05/11/17 at 09:03; Status DC Metformin HCl 850 mg 850 mg BIDPC PO Last administered on 05/19/17 09:04; Start 05/11/17 at 09:15 Sodium Chloride 500 ml @ 30 mls/hr [id number] PRN IV SEE LABEL COMMENTS; Start at 06:45; Stop 05/17/17 at 06:44; Status DC Ciprofloxacin/ Dextrose (Cipro 400 Mg Premix) 200 ml @ As Directed STK-MED ONCE .ROUTE Last administered on 05/14/17 19:05; Start 05/14/17 at 19:04; Stop 05/14/17 at 19:05; Status DC Povidone Iodine (Betadine 10% Oint) 30 applic STK-MED ONCE .ROUTE ; Start at 19:25; Stop 05/14/17 at 19:26; Status DC Fentanyl Citrate (fentaNYL INJ) 250 mcg STK-MED ONCE .ROUTE ; Start 05/14/17 at 19:58; Stop 05/14/17 at 19:59; Status DC Miscellaneous Information ALL NURSING DEPARTME... UNSCH PRN .XX SEE LABEL COMMENTS; Start 05/14/17 at 19:50; Stop 05/15/17 at 19:49; Status DC Povidone Iodine (Betadine 10% Oint) 1 applic DAILY TOPICAL Last administered on 05/19/17 09:05; Start 05/16/17 at 09:00 Date of Insertion: April 22, 2017 A/P Assessment and Plan A/P Necrotizing fasciitis/ Tony's Gangrene Treated for during recent hospitalization. S/p excision and debridement with washout of necrotizing fasciitis of the perineum, scrotum, and bilateral groin region. He had bacteremia and multiple organisms growing from the wound. He completed a course of antibiotics per ID. 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 05/14/17 Irrigation and excisional debridement of wound of scrotum and closure of wound with local advancement flap. Continue wound care. management per plastic surgery. Inability to care for self The patient was discharged home from the [facility] facility and did not have running water. He had a hard time taking care of himself and was brought in to the hospital by police. - Case management following - Physical therapy, patient walking 150 feet with standby assist rolling walker , indicating home with no PT recommendations - occupational therapy. Indication patient will need 31 bedside commode, home versus rehabilitation depending on progress - Supportive care. 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 The patient's ostomy bag exploded prior to arrival in the emergency department and reports indicate that he was covered in feces. - continue ostomy care. - Ostomy nurse consult requested. - Stooling continue MiraLAX with as needed Diane-Colace - To follow-up with Dr. Jansen regarding reversal when wound is completely healed Abnormal urinalysis. - Urine culture with contaminants. - Ellis catheter changed in the emergency department - Continue to change Ellis on a monthly basis Diabetes mellitus. Improving hyperglycemia A1c 5.8 -Continue metformin 850 mg twice daily and monitor - sliding scale insulin with Accu-Cheks. 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 - wound care nurse following. Heel wound is improving.. Prophylaxis: SCDs and early ambulation. Continue subcutaneous heparin Discharge Planning when cleared by plastic surgery. Madina Brice MD May 19, 2017 10:05
[2017-05-19 12:00] VITALS: BP 110/56; PULSE 87; RESP 16; TEMP 97.2; O2SAT 98
--- NOTE | 2017-05-19 13:45 | PD.PLAS.PN ---
Subjective Remarks Patient is 6 days status post closure of scrotal wound with local advancement flap. Patient has no acute complaints. He denies any pain. Objective Vital Signs Date Time Temp Pulse Resp B/P Pulse Ox O2 Delivery O2 Flow Rate FiO2 05/19/17 12:00 97.2 87 16 110/56 98 05/19/17 08:00 97.9 76 16 112/57 95 05/19/17 04:00 Room Air 05/19/17 00:00 97.3 73 16 120/58 100 05/19/17 00:00 Room Air 05/18/17 20:00 98.2 82 18 123/61 97 05/18/17 20:00 Room Air 05/18/17 16:00 96.0 73 16 116/63 97 I/O 05/18/17 05/18/17 05/18/17 05/19/17 05/19/17 05/19/17 07:00 15:00 23:00 07:00 15:00 23:00 Intake Total 240 ml 645 ml 475 ml 240 ml Output Total 850 ml 1000 ml 1750 ml 1900 ml Balance -610 ml -355 ml -1275 ml -1660 ml Intake Oral 240 ml 645 ml 475 ml 240 ml IV Total 0 ml Output Urine Total 850 ml 800 ml 1650 ml 1800 ml Stool Total 0 ml 200 ml 100 ml 100 ml # Bowel Movements 2 Exam Findings Dressing is in place. The majority of the wound is healing well. The left most aspect of the transverse closure has dehisced. Drain is in place. There is yellow/serosanguineous drainage. No odor. No evidence of infection. Assessment and Plan Diagnosis: (1) Open wound of scrotum Assessment and Plan Drain is removed. Will begin twice daily sitz baths in a solution of betadine and water. Continue with povidone iodine and ABD dressing. This is discussed with patient and RN. The patient will likely undergo additional surgery toward the end of this week. Vianney Baum May 19, 2017 13:45
[2017-05-19 16:00] VITALS: BP 120/65; PULSE 79; RESP 16; TEMP 97.7; O2SAT 97
[2017-05-19 20:00] VITALS: BP 124/62; PULSE 77; RESP 16; TEMP 97.7; O2SAT 96
[2017-05-19 21:43] VITALS: BP 118/75; PULSE 67; RESP 18; TEMP 97.8; O2SAT 95
[2017-05-20] VITALS: BP 108/62; PULSE 81; RESP 16; TEMP 97.1; O2SAT 97
[2017-05-20] MEDS: INSULIN ASPART SUPPLEMENTAL SCALE SQ SCH ×4 (06:08→21:00)
[2017-05-20 08:00] VITALS: BP 142/69; PULSE 88; RESP 17; TEMP 95.5; O2SAT 97
[2017-05-20] MEDS: JUVEN POWDER 1 PACK G-TUBE SCH ×2 (09:00→21:00)
--- NOTE | 2017-05-20 09:25 | HHI.PR ---
Subjective Remarks resting comfortably with no distress. no pain or fever. d/w the RN. Objective Vitals Vital Signs Date Time Temp Pulse Resp B/P Pulse Ox O2 Delivery O2 Flow Rate FiO2 05/20/17 08:00 95.5 88 17 142/69 97 05/20/17 00:00 97.1 81 16 108/62 97 05/19/17 20:15 Room Air 05/19/17 20:00 97.7 77 16 124/62 96 05/19/17 16:00 97.7 79 16 120/65 97 05/19/17 12:00 97.2 87 16 110/56 98 I/O 05/19/17 05/19/17 05/19/17 05/20/17 05/20/17 05/20/17 07:00 15:00 23:00 07:00 15:00 23:00 Intake Total 240 ml 340 ml 480 ml 240 ml Output Total 1900 ml 2300 ml 1050 ml 1850 ml Balance -1660 ml -1960 ml -570 ml -1610 ml Intake Oral 240 ml 340 ml 480 ml 240 ml IV Total 0 ml Output Urine Total 1800 ml 2300 ml 900 ml 1500 ml Stool Total 100 ml 150 ml 350 ml # Bowel Movements 1 Imaging Last Impressions Chest X-Ray 04/22/17 0000 Signed Impressions: Service Date/Time: Saturday, April 22, 2017 13:57 - CONCLUSION: No acute cardiomegaly disease. Sudhir Velze MD Objective Remarks GENERAL: This is a well-nourished, well-developed patient, in no apparent distress. CARDIOVASCULAR: Regular rate and regular rhythm without murmurs, gallops, or rubs. RESPIRATORY: Clear to auscultation. Breath sounds equal bilaterally. No wheezes , rales, or rhonchi. GASTROINTESTINAL: Abdomen soft, non-tender, nondistended. Normal, active bowel sounds- colostomy in place. MUSCULOSKELETAL: Extremities without clubbing, cyanosis, or edema. NEURO: Alert & Oriented x4 to person, place, time, situation. Moves all ext x4 Procedures 05/06/17 OPERATION: 1. Excisional debridement of skin, subcutaneous tissue of open scrotal wound. 2. Reconstruction of scrotal wound with local advancement flap. 3. Closure of open scrotal wound with allograft, 7 x 10 cm. 05/14/17 Irrigation and excisional debridement of wound of scrotum and closure of wound with local advancement flap. Medications and IVs Current Medications Sodium Chloride (NS 1000 ml Inj) 1,000 ml @ 1,000 mls/hr Q1H IV Last administered on 04/22/17 12:24; Start 04/22/17 at 11:51; Stop 04/22/17 at 12:50 ; Status DC Sodium Chloride (NS Flush) 2 ml UNSCH PRN IV FLUSH FLUSH AFTER USING IV ACCESS ; Start 04/22/17 at 12:00; Stop 05/01/17 at 11:22; Status DC Insulin Human Regular (NovoLIN R INJ) 4 units ONCE ONCE SQ Last administered on 04/22/17 13:23; Start 04/22/17 at 13:00; Stop 04/22/17 at 13:01; Status DC Potassium Chloride (KCl) 30 meq ONCE ONCE PO Last administered on 04/22/17 13 :24; Start 04/22/17 at 13:00; Stop 04/22/17 at 13:01; Status DC Insulin Detemir (Levemir Inj) 22 units DAILY SQ ; Start 04/22/17 at 14:00; Stop 04/22/17 at 15:23; Status DC Metoprolol Tartrate (Lopressor) 25 mg Q12HR PO Last administered on 05/19/17 21:50; Start 04/22/17 at 21:00 Amylase/Lipase/ Protease (Creon 24-76-120) 2 cap TID PO Last administered on 16:42; Start 04/22/17 at 18:00 Pantoprazole Sodium (Protonix) 40 mg DAILY PO Last administered on 05/19/17 09 :04; Start 04/23/17 at 09:00 Sodium Chloride (NS Flush) 2 ml UNSCH PRN IV FLUSH FLUSH AFTER USING IV ACCESS ; Start 04/22/17 at 13:45; Stop 05/01/17 at 11:22; Status DC Sodium Chloride (NS Flush) 2 ml BID IV FLUSH Last administered on 05/01/17 09: 41; Start 04/22/17 at 21:00; Stop 05/01/17 at 11:22; Status DC Acetaminophen (Tylenol) 650 mg Q4H PRN PO TEMP > 100.4; Start 04/22/17 at 13:45 Ondansetron HCl (Zofran Inj) 4 mg Q6H PRN IVP NAUSEA OR VOMITING; Start at 13:45; Stop 05/01/17 at 11:22; Status DC Acetaminophen (Tylenol) 650 mg Q6H PRN PO PAIN SCALE 1 TO 2; Start 04/22/17 at 13:45 Oxycodone HCl (Roxicodone) 5 mg Q4H PRN PO PAIN SCALE 3 TO 10; Start 04/22/17 at 13:45 Naloxone HCl 0.4 mg 0.4 mg UNSCH PRN IV SEE LABEL COMMENTS; Start 04/22/17 at 13:45; Stop 05/01/17 at 11:22; Status DC Ceftriaxone Sodium/Sodium Chloride (Rocephin Inj/NS Inj) 100 ml @ 200 mls/hr ONCE ONCE IV Last administered on 04/22/17 14:08; Start 04/22/17 at 14:00; Stop 04/22/17 at 14:29; Status DC Insulin Detemir (Levemir Inj) 22 units ONCE ONCE SQ Last administered on 17:02; Start 04/22/17 at 17:00; Stop 04/22/17 at 17:01; Status DC Insulin Detemir (Levemir Inj) 22 units DAILY SQ Last administered on 04/23/17 08:24; Start 04/23/17 at 09:00; Stop 04/23/17 at 10:12; Status DC Insulin Aspart 1 1 ACHS SLIDING SCALE SQ Last administered on 04/22/17 17:03 ; Start 04/22/17 at 16:00; Stop 04/22/17 at 19:14; Status DC Ceftriaxone Sodium/Sodium Chloride (Rocephin Inj/NS Inj) 100 ml @ 200 mls/hr Q24H IV Last administered on 04/23/17 08:17; Start 04/23/17 at 09:00; Stop 04/24/17 at 08:26; Status DC Insulin Aspart (NovoLOG SUPPLEMENTAL SCALE) 1 ACHS SLIDING SCALE SQ Last administered on 05/20/17 06:08; Start 04/22/17 at 21:00 Dextrose (D50w (Vial) Inj) 50 ml UNSCH PRN IV HYPOGLYCEMIA-SEE COMMENTS; Start 04/22/17 at 19:15 Glucagon (Glucagon Inj) 1 mg UNSCH PRN OTHER HYPOGLYCEMIA-SEE COMMENTS; Start 04/22/17 at 19:15 Metformin HCl (Glucophage) 500 mg BIDPC PO Last administered on 05/03/17 08:37 ; Start 04/23/17 at 18:00; Stop 05/03/17 at 11:04; Status DC Potassium Chloride (KCl) 30 meq ONCE ONCE PO Last administered on 04/23/17 12 :19; Start 04/23/17 at 11:00; Stop 04/23/17 at 11:37; Status DC Potassium Chloride (KCl) 20 meq ONCE ONCE PO Last administered on 04/23/17 12 :20; Start 04/23/17 at 11:00; Stop 04/23/17 at 11:37; Status DC Potassium Chloride (KCl) 20 meq ONCE ONCE PO Last administered on 04/24/17 09: 41; Start 04/24/17 at 09:00; Stop 04/24/17 at 09:01; Status DC Senna/Docusate Sodium (Diane-Colace) 2 tab BID PRN PO CONSTIPATION; Start at 13:00 Polyethylene Glycol (Miralax) 17 gm DAILY PO Last administered on 05/19/17 09: 04; Start 04/24/17 at 13:00 Heparin Sodium (Porcine) (Heparin Inj) 5,000 units Q12HR SQ Last administered on 05/19/17 21:50; Start 04/25/17 at 21:00 Sodium Hypochlorite (Dakin'S 0.25% Soln) W-D DRESSING TO SCRO... DAILY TOPICAL Last administered on 05/19/17 09:05; Start 04/28/17 at 17:00 Arginine HCl (Thomas Powder) 1 pack BID G-TUBE Last administered on 05/19/17 16 :43; Start 05/01/17 at 21:00 Ondansetron HCl (Zofran Odt) 4 mg Q6H PRN PO NAUSEA OR VOMITING; Start at 11:30 Metformin HCl 1000 mg 1,000 mg BIDPC PO Last administered on 05/05/17 09:00; Start 05/03/17 at 18:00; Stop 05/06/17 at 11:18; Status DC Lactated Ringer's (Lr 1000 ml Inj) 1,000 ml @ 30 mls/hr Q24H PRN IV SEE LABEL COMMENTS; Start 05/06/17 at 02:45; Stop 05/08/17 at 22:08; Status DC Metoprolol Tartrate (Lopressor) 25 mg FACE PAINTER PRN PO SEE LABEL COMMENTS; Start 05/06/17 at 02:45; Stop 05/08/17 at 22:08; Status DC Povidone Iodine (Betadine 5% Antisepsis Kit) 1 applic FACE PAINTER PRN EACH NARE SEE LABEL COMMENTS; Start 05/06/17 at 02:45; Stop 05/08/17 at 22:08; Status DC Chlorhexidine Gluconate 3 pack 3 pack FACE PAINTER PRN TOPICAL SEE LABEL COMMENTS; Start 05/06/17 at 02:45; Stop 05/08/17 at 22:08; Status DC Ciprofloxacin/ Dextrose (Cipro 400 Mg Premix) 200 ml @ As Directed STK-MED ONCE .ROUTE Last administered on 05/06/17 11:47; Start 05/06/17 at 11:46; Stop 05/06/17 at 11:47; Status DC Bupivacaine HCl/ Epinephrine Bitart 30 ml 30 ml STK-MED ONCE .ROUTE Last administered on 05/06/17 12:05; Start 05/06/17 at 12:03; Stop 05/06/17 at 12:04 ; Status DC Ciprofloxacin/ Dextrose (Cipro 400 Mg Premix) 200 ml @ 200 mls/hr Q12H IV Last administered on 05/09/17 12:21; Start 05/06/17 at 23:00; Stop 05/09/17 at 22:59; Status DC Fentanyl Citrate (fentaNYL INJ) 100 mcg STK-MED ONCE .ROUTE ; Start 05/06/17 at 13:37; Stop 05/06/17 at 13:38; Status DC Miscellaneous Information ALL NURSING DEPARTME... UNSCH PRN .XX SEE LABEL COMMENTS; Start 05/06/17 at 13:42; Stop 05/07/17 at 13:41; Status DC Metformin HCl (Glucophage) 500 mg BIDPC PO Last administered on 05/10/17 17:35 ; Start 05/09/17 at 09:00; Stop 05/11/17 at 09:03; Status DC Metformin HCl 850 mg 850 mg BIDPC PO Last administered on 05/19/17 16:42; Start 05/11/17 at 09:15 Sodium Chloride 500 ml @ 30 mls/hr [id number] PRN IV SEE LABEL COMMENTS; Start at 06:45; Stop 05/17/17 at 06:44; Status DC Ciprofloxacin/ Dextrose (Cipro 400 Mg Premix) 200 ml @ As Directed STK-MED ONCE .ROUTE Last administered on 05/14/17 19:05; Start 05/14/17 at 19:04; Stop 05/14/17 at 19:05; Status DC Povidone Iodine (Betadine 10% Oint) 30 applic STK-MED ONCE .ROUTE ; Start at 19:25; Stop 05/14/17 at 19:26; Status DC Fentanyl Citrate (fentaNYL INJ) 250 mcg STK-MED ONCE .ROUTE ; Start 05/14/17 at 19:58; Stop 05/14/17 at 19:59; Status DC Miscellaneous Information ALL NURSING DEPARTME... UNSCH PRN .XX SEE LABEL COMMENTS; Start 05/14/17 at 19:50; Stop 05/15/17 at 19:49; Status DC Povidone Iodine (Betadine 10% Oint) 1 applic DAILY TOPICAL Last administered on 05/19/17 09:05; Start 05/16/17 at 09:00 Date of Insertion: April 22, 2017 A/P Assessment and Plan A/P Necrotizing fasciitis/ Tony's Gangrene Treated for during recent hospitalization. S/p excision and debridement with washout of necrotizing fasciitis of the perineum, scrotum, and bilateral groin region. He had bacteremia and multiple organisms growing from the wound. He completed a course of antibiotics per ID. 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 05/14/17 Irrigation and excisional debridement of wound of scrotum and closure of wound with local advancement flap. Continue wound care. management per plastic surgery- possible additional surgery towards the end of the week. Inability to care for self The patient was discharged home from the [facility] and did not have running water. He had a hard time taking care of himself and was brought in to the hospital by police. - Case management following - Physical therapy, patient walking 150 feet with standby assist rolling walker , indicating home with no PT recommendations - occupational therapy. Indication patient will need 31 bedside commode, home versus rehabilitation depending on progress - Supportive care. 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 The patient's ostomy bag exploded prior to arrival in the emergency department and reports indicate that he was covered in feces. - continue ostomy care. - Ostomy nurse consult requested. - Stooling continue MiraLAX with as needed Diane-Colace - To follow-up with Dr. Jansen regarding reversal when wound is completely healed Abnormal urinalysis. - Urine culture with contaminants. - Ellis catheter changed in the emergency department - Continue to change Ellis on a monthly basis Diabetes mellitus. Improving hyperglycemia A1c 5.8 -Continue metformin 850 mg twice daily and monitor - sliding scale insulin with Accu-Cheks. 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 - wound care nurse following. Heel wound is improving.. Prophylaxis: SCDs and early ambulation. Continue subcutaneous heparin Discharge Planning when cleared by plastic surgery. Madina Brice MD May 20, 2017 09:24
[2017-05-20] MEDS: METOPROLOL TARTRATE 25 MG TAB PO SCH ×2 (09:50→23:45)
[2017-05-20] MEDS: metFORMIN HCL 850 MG TAB PO SCH ×2 (09:50→17:42)
[2017-05-20] MEDS: HEPARIN SODIUM - SQ 10,000 UNITS/ML VIAL SQ SCH ×2 (09:50→23:50)
[2017-05-20] MEDS: LIPASE/PROTEASE/AMYLASE (24,000/76,000/120,000) CAP PO SCH ×3 (09:50→17:42)
[2017-05-20] MEDS: POLYETHYLENE GLYCOL 17 GM PKG PO SCH (09:50)
[2017-05-20] MEDS: PANTOPRAZOLE SOD 40 MG DELAYED RELEASE TAB PO SCH (09:50)
[2017-05-20] MEDS: SODIUM HYPOCHLORITE 0.25% 500 ML BTL TOPICAL SCH (09:51)
[2017-05-20] MEDS: POVIDONE IODINE 10% OINT 30 GM TUBE TOPICAL SCH (09:52)
[2017-05-20 12:00] VITALS: BP 148/67; PULSE 76; RESP 16; TEMP 96.8; O2SAT 98
[2017-05-20 16:00] VITALS: BP 102/56; PULSE 81; RESP 16; TEMP 96.4; O2SAT 99
[2017-05-20 20:19] VITALS: BP 137/74; PULSE 79; RESP 17; TEMP 97.9; O2SAT 97
[2017-05-21 00:14] VITALS: BP 112/63; PULSE 82; RESP 17; TEMP 97.8; O2SAT 98
[2017-05-21 05:40] LABS: AUTOMATED NEUTROPHIL # 6.5 TH/MM3 (1.8-7.7); BASOPHIL # 0.1 TH/MM3 (0-0.2); BASOPHIL % 0.5 % (0.0-2.0); EOSINOPHIL # 0.2 TH/MM3 (0-0.4); EOSINOPHIL % 1.9 % (0.0-4.0); HEMATOCRIT 40.1 % (39.0-51.0); HEMO FLAGS DIFF FINAL; LYMPH % 26.1 % (9.0-44.0); LYMPHOCYTE # 2.7 TH/MM3 (1.0-4.8); MEAN CELL VOLUME 90.5 FL (80.0-100.0); MEAN CORPUSCULAR HEMOGLOBIN 29.2 PG (27.0-34.0); MEAN CORPUSCULAR HGB CONC 32.2 % (32.0-36.0); MONO % 7.3 % (0.0-8.0); NEUT % 64.2 % (16.0-70.0); PLATELET COUNT 200 TH/MM3 (150-450); RED BLOOD COUNT 4.43 MIL/MM3 (4.50-5.90); RED CELL DISTRIBUTION WIDTH 15.7 % (11.6-17.2); WHITE BLOOD COUNT 10.2 TH/MM3 (4.0-11.0)
[2017-05-21] MEDS: INSULIN ASPART SUPPLEMENTAL SCALE SQ SCH ×4 (05:56→21:00)
[2017-05-21 06:00] LABS: BICARBONATE 30.7 MEQ/L (21.0-32.0); POTASSIUM 4.3 MEQ/L (3.5-5.1)
[2017-05-21 08:00] VITALS: BP 108/55; PULSE 73; RESP 16; TEMP 97.3; O2SAT 99
[2017-05-21] MEDS: SODIUM HYPOCHLORITE 0.25% 500 ML BTL TOPICAL SCH (09:00)
[2017-05-21] MEDS: METOPROLOL TARTRATE 25 MG TAB PO SCH ×2 (09:00→22:24)
[2017-05-21] MEDS: JUVEN POWDER 1 PACK G-TUBE SCH ×2 (09:00→21:00)
[2017-05-21] MEDS: POVIDONE IODINE 10% OINT 30 GM TUBE TOPICAL SCH (09:00)
[2017-05-21] MEDS: LIPASE/PROTEASE/AMYLASE (24,000/76,000/120,000) CAP PO SCH ×3 (09:40→17:33)
[2017-05-21] MEDS: PANTOPRAZOLE SOD 40 MG DELAYED RELEASE TAB PO SCH (09:41)
[2017-05-21] MEDS: POLYETHYLENE GLYCOL 17 GM PKG PO SCH (09:41)
[2017-05-21] MEDS: metFORMIN HCL 850 MG TAB PO SCH ×2 (09:41→17:33)
[2017-05-21] MEDS: HEPARIN SODIUM - SQ 10,000 UNITS/ML VIAL SQ SCH ×2 (09:41→22:24)
--- NOTE | 2017-05-21 11:13 | HHI.PR ---
Subjective Remarks resting comfortably with no distress. no new complaints. d/w the RN. Objective Vitals Vital Signs Date Time Temp Pulse Resp B/P Pulse Ox O2 Delivery O2 Flow Rate FiO2 05/21/17 09:45 99 Room Air 05/21/17 08:00 97.3 73 16 108/55 99 05/21/17 00:14 97.8 82 17 112/63 98 05/20/17 20:19 97.9 79 17 137/74 97 05/20/17 16:00 96.4 81 16 102/56 99 05/20/17 12:00 96.8 76 16 148/67 98 I/O 05/20/17 05/20/17 05/20/17 05/21/17 05/21/17 05/21/17 07:00 15:00 23:00 07:00 15:00 23:00 Intake Total 240 ml 340 ml 480 ml 280 ml Output Total 1850 ml 2700 ml 1250 ml 1850 ml Balance -1610 ml -2360 ml -770 ml -1570 ml Intake Oral 240 ml 340 ml 480 ml 280 ml Output Urine Total 1500 ml 2700 ml 1200 ml 1800 ml Stool Total 350 ml 50 ml 50 ml # Bowel Movements 0 Result Diagram: 05/21/17 0502 05/21/17 0502 Imaging Last Impressions Chest X-Ray 04/22/17 0000 Signed Impressions: Service Date/Time: Saturday, April 22, 2017 13:57 - CONCLUSION: No acute cardiomegaly disease. Sudhir Velez MD Objective Remarks GENERAL: This is a well-nourished, well-developed patient, in no apparent distress. CARDIOVASCULAR: Regular rate and regular rhythm without murmurs, gallops, or rubs. RESPIRATORY: Clear to auscultation. Breath sounds equal bilaterally. No wheezes , rales, or rhonchi. GASTROINTESTINAL: Abdomen soft, non-tender, nondistended. Normal, active bowel sounds- colostomy in place. MUSCULOSKELETAL: Extremities without clubbing, cyanosis, or edema. NEURO: Alert & Oriented x4 to person, place, time, situation. Moves all ext x4 Procedures 05/06/17 OPERATION: 1. Excisional debridement of skin, subcutaneous tissue of open scrotal wound. 2. Reconstruction of scrotal wound with local advancement flap. 3. Closure of open scrotal wound with allograft, 7 x 10 cm. 05/14/17 Irrigation and excisional debridement of wound of scrotum and closure of wound with local advancement flap. Medications and IVs Current Medications Sodium Chloride (NS 1000 ml Inj) 1,000 ml @ 1,000 mls/hr Q1H IV Last administered on 04/22/17 12:24; Start 04/22/17 at 11:51; Stop 04/22/17 at 12:50 ; Status DC Sodium Chloride (NS Flush) 2 ml UNSCH PRN IV FLUSH FLUSH AFTER USING IV ACCESS ; Start 04/22/17 at 12:00; Stop 05/01/17 at 11:22; Status DC Insulin Human Regular (NovoLIN R INJ) 4 units ONCE ONCE SQ Last administered on 04/22/17 13:23; Start 04/22/17 at 13:00; Stop 04/22/17 at 13:01; Status DC Potassium Chloride (KCl) 30 meq ONCE ONCE PO Last administered on 04/22/17 13 :24; Start 04/22/17 at 13:00; Stop 04/22/17 at 13:01; Status DC Insulin Detemir (Levemir Inj) 22 units DAILY SQ ; Start 04/22/17 at 14:00; Stop 04/22/17 at 15:23; Status DC Metoprolol Tartrate (Lopressor) 25 mg Q12HR PO Last administered on 05/20/17 23:45; Start 04/22/17 at 21:00 Amylase/Lipase/ Protease (Creon 24-76-120) 2 cap TID PO Last administered on 09:40; Start 04/22/17 at 18:00 Pantoprazole Sodium (Protonix) 40 mg DAILY PO Last administered on 05/21/17 09 :41; Start 04/23/17 at 09:00 Sodium Chloride (NS Flush) 2 ml UNSCH PRN IV FLUSH FLUSH AFTER USING IV ACCESS ; Start 04/22/17 at 13:45; Stop 05/01/17 at 11:22; Status DC Sodium Chloride (NS Flush) 2 ml BID IV FLUSH Last administered on 05/01/17 09: 41; Start 04/22/17 at 21:00; Stop 05/01/17 at 11:22; Status DC Acetaminophen (Tylenol) 650 mg Q4H PRN PO TEMP > 100.4; Start 04/22/17 at 13:45 Ondansetron HCl (Zofran Inj) 4 mg Q6H PRN IVP NAUSEA OR VOMITING; Start at 13:45; Stop 05/01/17 at 11:22; Status DC Acetaminophen (Tylenol) 650 mg Q6H PRN PO PAIN SCALE 1 TO 2; Start 04/22/17 at 13:45 Oxycodone HCl (Roxicodone) 5 mg Q4H PRN PO PAIN SCALE 3 TO 10; Start 04/22/17 at 13:45 Naloxone HCl 0.4 mg 0.4 mg UNSCH PRN IV SEE LABEL COMMENTS; Start 04/22/17 at 13:45; Stop 05/01/17 at 11:22; Status DC Ceftriaxone Sodium/Sodium Chloride (Rocephin Inj/NS Inj) 100 ml @ 200 mls/hr ONCE ONCE IV Last administered on 04/22/17 14:08; Start 04/22/17 at 14:00; Stop 04/22/17 at 14:29; Status DC Insulin Detemir (Levemir Inj) 22 units ONCE ONCE SQ Last administered on 17:02; Start 04/22/17 at 17:00; Stop 04/22/17 at 17:01; Status DC Insulin Detemir (Levemir Inj) 22 units DAILY SQ Last administered on 04/23/17 08:24; Start 04/23/17 at 09:00; Stop 04/23/17 at 10:12; Status DC Insulin Aspart 1 1 ACHS SLIDING SCALE SQ Last administered on 04/22/17 17:03 ; Start 04/22/17 at 16:00; Stop 04/22/17 at 19:14; Status DC Ceftriaxone Sodium/Sodium Chloride (Rocephin Inj/NS Inj) 100 ml @ 200 mls/hr Q24H IV Last administered on 04/23/17 08:17; Start 04/23/17 at 09:00; Stop 04/24/17 at 08:26; Status DC Insulin Aspart (NovoLOG SUPPLEMENTAL SCALE) 1 ACHS SLIDING SCALE SQ Last administered on 05/21/17 05:56; Start 04/22/17 at 21:00 Dextrose (D50w (Vial) Inj) 50 ml UNSCH PRN IV HYPOGLYCEMIA-SEE COMMENTS; Start 04/22/17 at 19:15 Glucagon (Glucagon Inj) 1 mg UNSCH PRN OTHER HYPOGLYCEMIA-SEE COMMENTS; Start 04/22/17 at 19:15 Metformin HCl (Glucophage) 500 mg BIDPC PO Last administered on 05/03/17 08:37 ; Start 04/23/17 at 18:00; Stop 05/03/17 at 11:04; Status DC Potassium Chloride (KCl) 30 meq ONCE ONCE PO Last administered on 04/23/17 12 :19; Start 04/23/17 at 11:00; Stop 04/23/17 at 11:37; Status DC Potassium Chloride (KCl) 20 meq ONCE ONCE PO Last administered on 04/23/17 12 :20; Start 04/23/17 at 11:00; Stop 04/23/17 at 11:37; Status DC Potassium Chloride (KCl) 20 meq ONCE ONCE PO Last administered on 04/24/17 09: 41; Start 04/24/17 at 09:00; Stop 04/24/17 at 09:01; Status DC Senna/Docusate Sodium (Diane-Colace) 2 tab BID PRN PO CONSTIPATION; Start at 13:00 Polyethylene Glycol (Miralax) 17 gm DAILY PO Last administered on 05/21/17 09: 41; Start 04/24/17 at 13:00 Heparin Sodium (Porcine) (Heparin Inj) 5,000 units Q12HR SQ Last administered on 05/21/17 09:41; Start 04/25/17 at 21:00 Sodium Hypochlorite (Dakin'S 0.25% Soln) W-D DRESSING TO SCRO... DAILY TOPICAL Last administered on 05/21/17 09:00; Start 04/28/17 at 17:00 Arginine HCl (Thomas Powder) 1 pack BID G-TUBE Last administered on 05/19/17 16 :43; Start 05/01/17 at 21:00 Ondansetron HCl (Zofran Odt) 4 mg Q6H PRN PO NAUSEA OR VOMITING; Start at 11:30 Metformin HCl 1000 mg 1,000 mg BIDPC PO Last administered on 05/05/17 09:00; Start 05/03/17 at 18:00; Stop 05/06/17 at 11:18; Status DC Lactated Ringer's (Lr 1000 ml Inj) 1,000 ml @ 30 mls/hr Q24H PRN IV SEE LABEL COMMENTS; Start 05/06/17 at 02:45; Stop 05/08/17 at 22:08; Status DC Metoprolol Tartrate (Lopressor) 25 mg CUSTOMER SERVICE REPRESENTATIVE TEACHER PRN PO SEE LABEL COMMENTS; Start 05/06/17 at 02:45; Stop 05/08/17 at 22:08; Status DC Povidone Iodine (Betadine 5% Antisepsis Kit) 1 applic CUSTOMER SERVICE REPRESENTATIVE TEACHER PRN EACH NARE SEE LABEL COMMENTS; Start 05/06/17 at 02:45; Stop 05/08/17 at 22:08; Status DC Chlorhexidine Gluconate 3 pack 3 pack CUSTOMER SERVICE REPRESENTATIVE TEACHER PRN TOPICAL SEE LABEL COMMENTS; Start 05/06/17 at 02:45; Stop 05/08/17 at 22:08; Status DC Ciprofloxacin/ Dextrose (Cipro 400 Mg Premix) 200 ml @ As Directed STK-MED ONCE .ROUTE Last administered on 05/06/17 11:47; Start 05/06/17 at 11:46; Stop 05/06/17 at 11:47; Status DC Bupivacaine HCl/ Epinephrine Bitart 30 ml 30 ml STK-MED ONCE .ROUTE Last administered on 05/06/17 12:05; Start 05/06/17 at 12:03; Stop 05/06/17 at 12:04 ; Status DC Ciprofloxacin/ Dextrose (Cipro 400 Mg Premix) 200 ml @ 200 mls/hr Q12H IV Last administered on 05/09/17 12:21; Start 05/06/17 at 23:00; Stop 05/09/17 at 22:59; Status DC Fentanyl Citrate (fentaNYL INJ) 100 mcg STK-MED ONCE .ROUTE ; Start 05/06/17 at 13:37; Stop 05/06/17 at 13:38; Status DC Miscellaneous Information ALL NURSING DEPARTME... UNSCH PRN .XX SEE LABEL COMMENTS; Start 05/06/17 at 13:42; Stop 05/07/17 at 13:41; Status DC Metformin HCl (Glucophage) 500 mg BIDPC PO Last administered on 05/10/17 17:35 ; Start 05/09/17 at 09:00; Stop 05/11/17 at 09:03; Status DC Metformin HCl 850 mg 850 mg BIDPC PO Last administered on 05/21/17 09:41; Start 05/11/17 at 09:15 Sodium Chloride 500 ml @ 30 mls/hr [id number] PRN IV SEE LABEL COMMENTS; Start at 06:45; Stop 05/17/17 at 06:44; Status DC Ciprofloxacin/ Dextrose (Cipro 400 Mg Premix) 200 ml @ As Directed STK-MED ONCE .ROUTE Last administered on 05/14/17 19:05; Start 05/14/17 at 19:04; Stop 05/14/17 at 19:05; Status DC Povidone Iodine (Betadine 10% Oint) 30 applic STK-MED ONCE .ROUTE ; Start at 19:25; Stop 05/14/17 at 19:26; Status DC Fentanyl Citrate (fentaNYL INJ) 250 mcg STK-MED ONCE .ROUTE ; Start 05/14/17 at 19:58; Stop 05/14/17 at 19:59; Status DC Miscellaneous Information ALL NURSING DEPARTME... UNSCH PRN .XX SEE LABEL COMMENTS; Start 05/14/17 at 19:50; Stop 05/15/17 at 19:49; Status DC Povidone Iodine (Betadine 10% Oint) 1 applic DAILY TOPICAL Last administered on 05/21/17 09:00; Start 05/16/17 at 09:00 Propofol (Diprivan 200 Mg/20 ml Inj) 200 mg STK-MED ONCE IV ; Start 05/06/17 at 14:42; Stop 05/20/17 at 14:42; Status DC Ondansetron HCl (Zofran Inj) 4 mg STK-MED ONCE IV PUSH ; Start 05/06/17 at 14:42 ; Stop 05/20/17 at 14:42; Status DC Date of Insertion: April 22, 2017 A/P Assessment and Plan A/P Necrotizing fasciitis/ Tony's Gangrene Treated for during recent hospitalization. S/p excision and debridement with washout of necrotizing fasciitis of the perineum, scrotum, and bilateral groin region. He had bacteremia and multiple organisms growing from the wound. He completed a course of antibiotics per ID. 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 05/14/17 Irrigation and excisional debridement of wound of scrotum and closure of wound with local advancement flap. Continue wound care. management per plastic surgery- possible additional surgery towards the end of the week. Inability to care for self The patient was discharged home from the correction facility and did not have running water. He had a hard time taking care of himself and was brought in to the hospital by police. - Case management following - Physical therapy, patient walking 150 feet with standby assist rolling walker , indicating home with no PT recommendations - occupational therapy. Indication patient will need 31 bedside commode, home versus rehabilitation depending on progress - Supportive care. 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 The patient's ostomy bag exploded prior to arrival in the emergency department and reports indicate that he was covered in feces. - continue ostomy care. - Ostomy nurse consult requested. - Stooling continue MiraLAX with as needed Diane-Colace - To follow-up with Dr. Jansen regarding reversal when wound is completely healed Abnormal urinalysis. - Urine culture with contaminants. - Ellis catheter changed in the emergency department - Continue to change Ellis on a monthly basis Diabetes mellitus. Improving hyperglycemia A1c 5.8 -Continue metformin 850 mg twice daily and monitor - sliding scale insulin with Accu-Cheks. 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 - wound care nurse following. Heel wound is improving.. Prophylaxis: SCDs and early ambulation. Continue subcutaneous heparin Discharge Planning when cleared by plastic surgery. Madina Brice MD May 21, 2017 11:13
[2017-05-21 12:00] VITALS: BP 110/62; PULSE 79; RESP 17; TEMP 97.9; O2SAT 97
[2017-05-21 16:00] VITALS: BP 111/57; PULSE 80; RESP 17; TEMP 97.3; O2SAT 98
[2017-05-21 20:31] VITALS: BP 138/61; PULSE 97; RESP 17; TEMP 97.4; O2SAT 97
[2017-05-22 00:31] VITALS: BP 137/65; PULSE 93; RESP 18; TEMP 97.4; O2SAT 98
[2017-05-22] MEDS: INSULIN ASPART SUPPLEMENTAL SCALE SQ SCH ×4 (05:55→21:00)
[2017-05-22 08:00] VITALS: BP 108/65; PULSE 78; RESP 17; TEMP 96.6; O2SAT 99
--- NOTE | 2017-05-22 08:55 | HHI.PR ---
Subjective Remarks resting comfortably with no distress. no pain. no fever. no new complaints. Objective Vitals Vital Signs Date Time Temp Pulse Resp B/P Pulse Ox O2 Delivery O2 Flow Rate FiO2 05/22/17 08:00 96.6 78 17 108/65 99 05/22/17 00:31 97.4 93 18 137/65 98 05/21/17 20:31 97.4 97 17 138/61 97 05/21/17 16:00 97.3 80 17 111/57 98 05/21/17 12:00 97.9 79 17 110/62 97 05/21/17 09:45 99 Room Air I/O 05/21/17 05/21/17 05/21/17 05/22/17 05/22/17 05/22/17 07:00 15:00 23:00 07:00 15:00 23:00 Intake Total 280 ml 1920 ml 480 ml 280 ml Output Total 1850 ml 1600 ml 2400 ml 1250 ml Balance -1570 ml 320 ml -1920 ml -970 ml Intake Oral 280 ml 1920 ml 480 ml 280 ml Output Urine Total 1800 ml 1475 ml 2300 ml 1200 ml Stool Total 50 ml 125 ml 100 ml 50 ml Result Diagram: 05/21/17 0502 05/21/17 0502 Imaging Last Impressions Chest X-Ray 04/22/17 0000 Signed Impressions: Service Date/Time: Saturday, April 22, 2017 13:57 - CONCLUSION: No acute cardiomegaly disease. Sudhir Velez MD Objective Remarks GENERAL: This is a well-nourished, well-developed patient, in no apparent distress. CARDIOVASCULAR: Regular rate and regular rhythm without murmurs, gallops, or rubs. RESPIRATORY: Clear to auscultation. Breath sounds equal bilaterally. No wheezes , rales, or rhonchi. GASTROINTESTINAL: Abdomen soft, non-tender, nondistended. Normal, active bowel sounds- colostomy in place. MUSCULOSKELETAL: Extremities without clubbing, cyanosis, or edema. NEURO: Alert & Oriented x4 to person, place, time, situation. Moves all ext x4 Procedures 05/06/17 OPERATION: 1. Excisional debridement of skin, subcutaneous tissue of open scrotal wound. 2. Reconstruction of scrotal wound with local advancement flap. 3. Closure of open scrotal wound with allograft, 7 x 10 cm. 05/14/17 Irrigation and excisional debridement of wound of scrotum and closure of wound with local advancement flap. Medications and IVs Current Medications Sodium Chloride (NS 1000 ml Inj) 1,000 ml @ 1,000 mls/hr Q1H IV Last administered on 04/22/17 12:24; Start 04/22/17 at 11:51; Stop 04/22/17 at 12:50 ; Status DC Sodium Chloride (NS Flush) 2 ml UNSCH PRN IV FLUSH FLUSH AFTER USING IV ACCESS ; Start 04/22/17 at 12:00; Stop 05/01/17 at 11:22; Status DC Insulin Human Regular (NovoLIN R INJ) 4 units ONCE ONCE SQ Last administered on 04/22/17 13:23; Start 04/22/17 at 13:00; Stop 04/22/17 at 13:01; Status DC Potassium Chloride (KCl) 30 meq ONCE ONCE PO Last administered on 04/22/17 13 :24; Start 04/22/17 at 13:00; Stop 04/22/17 at 13:01; Status DC Insulin Detemir (Levemir Inj) 22 units DAILY SQ ; Start 04/22/17 at 14:00; Stop 04/22/17 at 15:23; Status DC Metoprolol Tartrate (Lopressor) 25 mg Q12HR PO Last administered on 05/21/17 22:24; Start 04/22/17 at 21:00 Amylase/Lipase/ Protease (Creon 24-76-120) 2 cap TID PO Last administered on 17:33; Start 04/22/17 at 18:00 Pantoprazole Sodium (Protonix) 40 mg DAILY PO Last administered on 05/21/17 09 :41; Start 04/23/17 at 09:00 Sodium Chloride (NS Flush) 2 ml UNSCH PRN IV FLUSH FLUSH AFTER USING IV ACCESS ; Start 04/22/17 at 13:45; Stop 05/01/17 at 11:22; Status DC Sodium Chloride (NS Flush) 2 ml BID IV FLUSH Last administered on 05/01/17 09: 41; Start 04/22/17 at 21:00; Stop 05/01/17 at 11:22; Status DC Acetaminophen (Tylenol) 650 mg Q4H PRN PO TEMP > 100.4; Start 04/22/17 at 13:45 Ondansetron HCl (Zofran Inj) 4 mg Q6H PRN IVP NAUSEA OR VOMITING; Start at 13:45; Stop 05/01/17 at 11:22; Status DC Acetaminophen (Tylenol) 650 mg Q6H PRN PO PAIN SCALE 1 TO 2; Start 04/22/17 at 13:45 Oxycodone HCl (Roxicodone) 5 mg Q4H PRN PO PAIN SCALE 3 TO 10; Start 04/22/17 at 13:45 Naloxone HCl 0.4 mg 0.4 mg UNSCH PRN IV SEE LABEL COMMENTS; Start 04/22/17 at 13:45; Stop 05/01/17 at 11:22; Status DC Ceftriaxone Sodium/Sodium Chloride (Rocephin Inj/NS Inj) 100 ml @ 200 mls/hr ONCE ONCE IV Last administered on 04/22/17 14:08; Start 04/22/17 at 14:00; Stop 04/22/17 at 14:29; Status DC Insulin Detemir (Levemir Inj) 22 units ONCE ONCE SQ Last administered on 17:02; Start 04/22/17 at 17:00; Stop 04/22/17 at 17:01; Status DC Insulin Detemir (Levemir Inj) 22 units DAILY SQ Last administered on 04/23/17 08:24; Start 04/23/17 at 09:00; Stop 04/23/17 at 10:12; Status DC Insulin Aspart 1 1 ACHS SLIDING SCALE SQ Last administered on 04/22/17 17:03 ; Start 04/22/17 at 16:00; Stop 04/22/17 at 19:14; Status DC Ceftriaxone Sodium/Sodium Chloride (Rocephin Inj/NS Inj) 100 ml @ 200 mls/hr Q24H IV Last administered on 04/23/17 08:17; Start 04/23/17 at 09:00; Stop 04/24/17 at 08:26; Status DC Insulin Aspart (NovoLOG SUPPLEMENTAL SCALE) 1 ACHS SLIDING SCALE SQ Last administered on 05/22/17 05:55; Start 04/22/17 at 21:00 Dextrose (D50w (Vial) Inj) 50 ml UNSCH PRN IV HYPOGLYCEMIA-SEE COMMENTS; Start 04/22/17 at 19:15 Glucagon (Glucagon Inj) 1 mg UNSCH PRN OTHER HYPOGLYCEMIA-SEE COMMENTS; Start 04/22/17 at 19:15 Metformin HCl (Glucophage) 500 mg BIDPC PO Last administered on 05/03/17 08:37 ; Start 04/23/17 at 18:00; Stop 05/03/17 at 11:04; Status DC Potassium Chloride (KCl) 30 meq ONCE ONCE PO Last administered on 04/23/17 12 :19; Start 04/23/17 at 11:00; Stop 04/23/17 at 11:37; Status DC Potassium Chloride (KCl) 20 meq ONCE ONCE PO Last administered on 04/23/17 12 :20; Start 04/23/17 at 11:00; Stop 04/23/17 at 11:37; Status DC Potassium Chloride (KCl) 20 meq ONCE ONCE PO Last administered on 04/24/17 09: 41; Start 04/24/17 at 09:00; Stop 04/24/17 at 09:01; Status DC Senna/Docusate Sodium (Diane-Colace) 2 tab BID PRN PO CONSTIPATION; Start at 13:00 Polyethylene Glycol (Miralax) 17 gm DAILY PO Last administered on 05/21/17 09: 41; Start 04/24/17 at 13:00 Heparin Sodium (Porcine) (Heparin Inj) 5,000 units Q12HR SQ Last administered on 05/21/17 22:24; Start 04/25/17 at 21:00 Sodium Hypochlorite (Dakin'S 0.25% Soln) W-D DRESSING TO SCRO... DAILY TOPICAL Last administered on 05/21/17 09:00; Start 04/28/17 at 17:00 Arginine HCl (Thomas Powder) 1 pack BID G-TUBE Last administered on 05/19/17 16 :43; Start 05/01/17 at 21:00 Ondansetron HCl (Zofran Odt) 4 mg Q6H PRN PO NAUSEA OR VOMITING; Start at 11:30 Metformin HCl 1000 mg 1,000 mg BIDPC PO Last administered on 05/05/17 09:00; Start 05/03/17 at 18:00; Stop 05/06/17 at 11:18; Status DC Lactated Ringer's (Lr 1000 ml Inj) 1,000 ml @ 30 mls/hr Q24H PRN IV SEE LABEL COMMENTS; Start 05/06/17 at 02:45; Stop 05/08/17 at 22:08; Status DC Metoprolol Tartrate (Lopressor) 25 mg DIRECTOR OF OCCUPATIONAL HEALTH PRN PO SEE LABEL COMMENTS; Start 05/06/17 at 02:45; Stop 05/08/17 at 22:08; Status DC Povidone Iodine (Betadine 5% Antisepsis Kit) 1 applic DIRECTOR OF OCCUPATIONAL HEALTH PRN EACH NARE SEE LABEL COMMENTS; Start 05/06/17 at 02:45; Stop 05/08/17 at 22:08; Status DC Chlorhexidine Gluconate 3 pack 3 pack DIRECTOR OF OCCUPATIONAL HEALTH PRN TOPICAL SEE LABEL COMMENTS; Start 05/06/17 at 02:45; Stop 05/08/17 at 22:08; Status DC Ciprofloxacin/ Dextrose (Cipro 400 Mg Premix) 200 ml @ As Directed STK-MED ONCE .ROUTE Last administered on 05/06/17 11:47; Start 05/06/17 at 11:46; Stop 05/06/17 at 11:47; Status DC Bupivacaine HCl/ Epinephrine Bitart 30 ml 30 ml STK-MED ONCE .ROUTE Last administered on 05/06/17 12:05; Start 05/06/17 at 12:03; Stop 05/06/17 at 12:04 ; Status DC Ciprofloxacin/ Dextrose (Cipro 400 Mg Premix) 200 ml @ 200 mls/hr Q12H IV Last administered on 05/09/17 12:21; Start 05/06/17 at 23:00; Stop 05/09/17 at 22:59; Status DC Fentanyl Citrate (fentaNYL INJ) 100 mcg STK-MED ONCE .ROUTE ; Start 05/06/17 at 13:37; Stop 05/06/17 at 13:38; Status DC Miscellaneous Information ALL NURSING DEPARTME... UNSCH PRN .XX SEE LABEL COMMENTS; Start 05/06/17 at 13:42; Stop 05/07/17 at 13:41; Status DC Metformin HCl (Glucophage) 500 mg BIDPC PO Last administered on 05/10/17 17:35 ; Start 05/09/17 at 09:00; Stop 05/11/17 at 09:03; Status DC Metformin HCl 850 mg 850 mg BIDPC PO Last administered on 05/21/17 17:33; Start 05/11/17 at 09:15 Sodium Chloride 500 ml @ 30 mls/hr [id number] PRN IV SEE LABEL COMMENTS; Start at 06:45; Stop 05/17/17 at 06:44; Status DC Ciprofloxacin/ Dextrose (Cipro 400 Mg Premix) 200 ml @ As Directed STK-MED ONCE .ROUTE Last administered on 05/14/17 19:05; Start 05/14/17 at 19:04; Stop 05/14/17 at 19:05; Status DC Povidone Iodine (Betadine 10% Oint) 30 applic STK-MED ONCE .ROUTE ; Start at 19:25; Stop 05/14/17 at 19:26; Status DC Fentanyl Citrate (fentaNYL INJ) 250 mcg STK-MED ONCE .ROUTE ; Start 05/14/17 at 19:58; Stop 05/14/17 at 19:59; Status DC Miscellaneous Information ALL NURSING DEPARTME... UNSCH PRN .XX SEE LABEL COMMENTS; Start 05/14/17 at 19:50; Stop 05/15/17 at 19:49; Status DC Povidone Iodine (Betadine 10% Oint) 1 applic DAILY TOPICAL Last administered on 05/21/17 09:00; Start 05/16/17 at 09:00 Propofol (Diprivan 200 Mg/20 ml Inj) 200 mg STK-MED ONCE IV ; Start 05/06/17 at 14:42; Stop 05/20/17 at 14:42; Status DC Ondansetron HCl (Zofran Inj) 4 mg STK-MED ONCE IV PUSH ; Start 05/06/17 at 14:42 ; Stop 05/20/17 at 14:42; Status DC Date of Insertion: April 22, 2017 A/P Assessment and Plan A/P - Necrotizing fasciitis/ Tony's Gangrene Treated for during recent hospitalization. S/p excision and debridement with washout of necrotizing fasciitis of the perineum, scrotum, and bilateral groin region. He had bacteremia and multiple organisms growing from the wound. He completed a course of antibiotics per ID. 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 05/14/17 Irrigation and excisional debridement of wound of scrotum and closure of wound with local advancement flap. Continue wound care. management per plastic surgery- might need additional surgery -awaiting plastic surgery follow-up and recommendations. -elevated BUN- suggestive of mild dehydration start IV fluid and monitor the renal function - Inability to care for self The patient was discharged home from the intermediate facility and did not have running water. He had a hard time taking care of himself and was brought in to the hospital by police. Case management following continue PT/OT Supportive care. 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 The patient's ostomy bag exploded prior to arrival in the emergency department and reports indicate that he was covered in feces. continue ostomy care. Ostomy nurse consult requested. To follow-up with Dr. Jansen regarding reversal when wound is completely healed - Diabetes mellitus. Improving hyperglycemia A1c 5.8 Continue metformin 850 mg twice daily and monitor sliding scale insulin with Accu-Cheks. 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 wound care nurse following. Heel wound is improving.. Prophylaxis: SCDs and early ambulation. Continue subcutaneous heparin Discharge Planning when cleared by plastic surgery. Madina Brice MD May 22, 2017 08:55
[2017-05-22] MEDS: SODIUM HYPOCHLORITE 0.25% 500 ML BTL TOPICAL SCH (09:00)
[2017-05-22] MEDS ORDERED: SODIUM CHLORID 0.9% 500 ML INJ 500 ML IV ONE (09:00)
[2017-05-22] MEDS: JUVEN POWDER 1 PACK G-TUBE SCH ×2 (09:00→21:00)
--- NOTE | 2017-05-22 09:05 | PD.PLAS.PN ---
Subjective Remarks Patient is 8 days status post closure of scrotal wound with local advancement flap. As of 05/19/17, there has been a partial dehiscence of the left side of the wound. The patient has no acute complaints. Objective Vital Signs Date Time Temp Pulse Resp B/P Pulse Ox O2 Delivery O2 Flow Rate FiO2 05/22/17 08:00 96.6 78 17 108/65 99 05/22/17 00:31 97.4 93 18 137/65 98 05/21/17 20:31 97.4 97 17 138/61 97 05/21/17 16:00 97.3 80 17 111/57 98 05/21/17 12:00 97.9 79 17 110/62 97 05/21/17 09:45 99 Room Air I/O 05/21/17 05/21/17 05/21/17 05/22/17 05/22/17 05/22/17 07:00 15:00 23:00 07:00 15:00 23:00 Intake Total 280 ml 1920 ml 480 ml 280 ml Output Total 1850 ml 1600 ml 2400 ml 1250 ml Balance -1570 ml 320 ml -1920 ml -970 ml Intake Oral 280 ml 1920 ml 480 ml 280 ml Output Urine Total 1800 ml 1475 ml 2300 ml 1200 ml Stool Total 50 ml 125 ml 100 ml 50 ml Result Diagram: 05/21/17 0502 05/21/17 0502 Exam Findings Dressing is in place. [place] and sutures are in place. There is no erythema, odor, induration or other evidence of infection. Wound drainage is thick and mucus-like. Assessment and Plan Diagnosis: (1) Open wound of scrotum Assessment and Plan Southside are removed from the dehisced portion of the wound. Wound is dressed with povidone iodine ointment, adaptic, and ABD pad. Discussed with RN. Patient has been getting sitz baths BID. Vianney Baum May 22, 2017 09:04
[2017-05-22] MEDS: POVIDONE IODINE 10% OINT 30 GM TUBE TOPICAL SCH (11:22)
[2017-05-22] MEDS: metFORMIN HCL 850 MG TAB PO SCH ×2 (11:22→17:44)
[2017-05-22] MEDS: POLYETHYLENE GLYCOL 17 GM PKG PO SCH (11:22)
[2017-05-22] MEDS: PANTOPRAZOLE SOD 40 MG DELAYED RELEASE TAB PO SCH (11:22)
[2017-05-22] MEDS: METOPROLOL TARTRATE 25 MG TAB PO SCH ×2 (11:23→21:42)
[2017-05-22] MEDS: LIPASE/PROTEASE/AMYLASE (24,000/76,000/120,000) CAP PO SCH ×3 (11:23→17:44)
[2017-05-22] MEDS: HEPARIN SODIUM - SQ 10,000 UNITS/ML VIAL SQ SCH ×2 (11:25→21:42)
[2017-05-22 12:00] VITALS: BP 120/67; PULSE 79; RESP 17; TEMP 97; O2SAT 98
[2017-05-22 16:00] VITALS: BP 101/56; PULSE 81; RESP 16; TEMP 96.2; O2SAT 99
[2017-05-22 20:00] VITALS: BP 106/55; PULSE 86; RESP 17; TEMP 98.5; O2SAT 95
[2017-05-23 00:29] VITALS: BP 113/58; PULSE 83; RESP 18; TEMP 96.1; O2SAT 96
[2017-05-23] MEDS: INSULIN ASPART SUPPLEMENTAL SCALE SQ SCH ×4 (06:23→20:40)
[2017-05-23 08:00] VITALS: BP 116/66; PULSE 78; RESP 12; TEMP 95.4; O2SAT 98
[2017-05-23] MEDS: SODIUM HYPOCHLORITE 0.25% 500 ML BTL TOPICAL SCH (09:00)
[2017-05-23] MEDS: POVIDONE IODINE 10% OINT 30 GM TUBE TOPICAL SCH (09:00)
[2017-05-23] MEDS: JUVEN POWDER 1 PACK G-TUBE SCH ×2 (09:00→20:41)
--- NOTE | 2017-05-23 10:05 | HHI.PR ---
Subjective Remarks resting comfortably with no distress. denies pain. no new complaints. Objective Vitals Vital Signs Date Time Temp Pulse Resp B/P Pulse Ox O2 Delivery O2 Flow Rate FiO2 05/23/17 08:00 95.4 78 12 116/66 98 05/23/17 00:29 96.1 83 18 113/58 96 05/22/17 20:00 98.5 86 17 106/55 95 05/22/17 16:00 96.2 81 16 101/56 99 05/22/17 12:00 97.0 79 17 120/67 98 I/O 05/22/17 05/22/17 05/22/17 05/23/17 05/23/17 05/23/17 07:00 15:00 23:00 07:00 15:00 23:00 Intake Total 280 ml 1080 ml 360 ml 360 ml Output Total 1250 ml 1800 ml 1900 ml 1600 ml Balance -970 ml -720 ml -1540 ml -1240 ml Intake Oral 280 ml 1080 ml 360 ml 360 ml IV Total 0 ml Output Urine Total 1200 ml 1400 ml 1800 ml 1500 ml Stool Total 50 ml 400 ml 100 ml 100 ml Result Diagram: 05/21/17 0502 05/23/17 0553 Imaging Last Impressions Chest X-Ray 04/22/17 0000 Signed Impressions: Service Date/Time: Saturday, April 22, 2017 13:57 - CONCLUSION: No acute cardiomegaly disease. Sudhir Velez MD Objective Remarks GENERAL: This is a well-nourished, well-developed patient, in no apparent distress. CARDIOVASCULAR: Regular rate and regular rhythm without murmurs, gallops, or rubs. RESPIRATORY: Clear to auscultation. Breath sounds equal bilaterally. No wheezes , rales, or rhonchi. GASTROINTESTINAL: Abdomen soft, non-tender, nondistended. Normal, active bowel sounds- colostomy in place. MUSCULOSKELETAL: Extremities without clubbing, cyanosis, or edema. NEURO: Alert & Oriented x4 to person, place, time, situation. Moves all ext x4 Procedures 05/06/17 OPERATION: 1. Excisional debridement of skin, subcutaneous tissue of open scrotal wound. 2. Reconstruction of scrotal wound with local advancement flap. 3. Closure of open scrotal wound with allograft, 7 x 10 cm. 05/14/17 Irrigation and excisional debridement of wound of scrotum and closure of wound with local advancement flap. Medications and IVs Current Medications Sodium Chloride (NS 1000 ml Inj) 1,000 ml @ 1,000 mls/hr Q1H IV Last administered on 04/22/17 12:24; Start 04/22/17 at 11:51; Stop 04/22/17 at 12:50 ; Status DC Sodium Chloride (NS Flush) 2 ml UNSCH PRN IV FLUSH FLUSH AFTER USING IV ACCESS ; Start 04/22/17 at 12:00; Stop 05/01/17 at 11:22; Status DC Insulin Human Regular (NovoLIN R INJ) 4 units ONCE ONCE SQ Last administered on 04/22/17 13:23; Start 04/22/17 at 13:00; Stop 04/22/17 at 13:01; Status DC Potassium Chloride (KCl) 30 meq ONCE ONCE PO Last administered on 04/22/17 13 :24; Start 04/22/17 at 13:00; Stop 04/22/17 at 13:01; Status DC Insulin Detemir (Levemir Inj) 22 units DAILY SQ ; Start 04/22/17 at 14:00; Stop 04/22/17 at 15:23; Status DC Metoprolol Tartrate (Lopressor) 25 mg Q12HR PO Last administered on 05/22/17 21:42; Start 04/22/17 at 21:00 Amylase/Lipase/ Protease (Creon 24-76-120) 2 cap TID PO Last administered on 17:44; Start 04/22/17 at 18:00 Pantoprazole Sodium (Protonix) 40 mg DAILY PO Last administered on 05/22/17 11 :22; Start 04/23/17 at 09:00 Sodium Chloride (NS Flush) 2 ml UNSCH PRN IV FLUSH FLUSH AFTER USING IV ACCESS ; Start 04/22/17 at 13:45; Stop 05/01/17 at 11:22; Status DC Sodium Chloride (NS Flush) 2 ml BID IV FLUSH Last administered on 05/01/17 09: 41; Start 04/22/17 at 21:00; Stop 05/01/17 at 11:22; Status DC Acetaminophen (Tylenol) 650 mg Q4H PRN PO TEMP > 100.4; Start 04/22/17 at 13:45 Ondansetron HCl (Zofran Inj) 4 mg Q6H PRN IVP NAUSEA OR VOMITING; Start at 13:45; Stop 05/01/17 at 11:22; Status DC Acetaminophen (Tylenol) 650 mg Q6H PRN PO PAIN SCALE 1 TO 2; Start 04/22/17 at 13:45 Oxycodone HCl (Roxicodone) 5 mg Q4H PRN PO PAIN SCALE 3 TO 10; Start 04/22/17 at 13:45 Naloxone HCl 0.4 mg 0.4 mg UNSCH PRN IV SEE LABEL COMMENTS; Start 04/22/17 at 13:45; Stop 05/01/17 at 11:22; Status DC Ceftriaxone Sodium/Sodium Chloride (Rocephin Inj/NS Inj) 100 ml @ 200 mls/hr ONCE ONCE IV Last administered on 04/22/17 14:08; Start 04/22/17 at 14:00; Stop 04/22/17 at 14:29; Status DC Insulin Detemir (Levemir Inj) 22 units ONCE ONCE SQ Last administered on 17:02; Start 04/22/17 at 17:00; Stop 04/22/17 at 17:01; Status DC Insulin Detemir (Levemir Inj) 22 units DAILY SQ Last administered on 04/23/17 08:24; Start 04/23/17 at 09:00; Stop 04/23/17 at 10:12; Status DC Insulin Aspart 1 1 ACHS SLIDING SCALE SQ Last administered on 04/22/17 17:03 ; Start 04/22/17 at 16:00; Stop 04/22/17 at 19:14; Status DC Ceftriaxone Sodium/Sodium Chloride (Rocephin Inj/NS Inj) 100 ml @ 200 mls/hr Q24H IV Last administered on 04/23/17 08:17; Start 04/23/17 at 09:00; Stop 04/24/17 at 08:26; Status DC Insulin Aspart (NovoLOG SUPPLEMENTAL SCALE) 1 ACHS SLIDING SCALE SQ Last administered on 05/23/17 06:23; Start 04/22/17 at 21:00 Dextrose (D50w (Vial) Inj) 50 ml UNSCH PRN IV HYPOGLYCEMIA-SEE COMMENTS; Start 04/22/17 at 19:15 Glucagon (Glucagon Inj) 1 mg UNSCH PRN OTHER HYPOGLYCEMIA-SEE COMMENTS; Start 04/22/17 at 19:15 Metformin HCl (Glucophage) 500 mg BIDPC PO Last administered on 05/03/17 08:37 ; Start 04/23/17 at 18:00; Stop 05/03/17 at 11:04; Status DC Potassium Chloride (KCl) 30 meq ONCE ONCE PO Last administered on 04/23/17 12 :19; Start 04/23/17 at 11:00; Stop 04/23/17 at 11:37; Status DC Potassium Chloride (KCl) 20 meq ONCE ONCE PO Last administered on 04/23/17 12 :20; Start 04/23/17 at 11:00; Stop 04/23/17 at 11:37; Status DC Potassium Chloride (KCl) 20 meq ONCE ONCE PO Last administered on 04/24/17 09: 41; Start 04/24/17 at 09:00; Stop 04/24/17 at 09:01; Status DC Senna/Docusate Sodium (Diane-Colace) 2 tab BID PRN PO CONSTIPATION; Start at 13:00 Polyethylene Glycol (Miralax) 17 gm DAILY PO Last administered on 05/22/17 11: 22; Start 04/24/17 at 13:00 Heparin Sodium (Porcine) (Heparin Inj) 5,000 units Q12HR SQ Last administered on 05/22/17 21:42; Start 04/25/17 at 21:00 Sodium Hypochlorite (Dakin'S 0.25% Soln) W-D DRESSING TO SCRO... DAILY TOPICAL Last administered on 05/21/17 09:00; Start 04/28/17 at 17:00 Arginine HCl (Thomas Powder) 1 pack BID G-TUBE Last administered on 05/19/17 16 :43; Start 05/01/17 at 21:00 Ondansetron HCl (Zofran Odt) 4 mg Q6H PRN PO NAUSEA OR VOMITING; Start at 11:30 Metformin HCl 1000 mg 1,000 mg BIDPC PO Last administered on 05/05/17 09:00; Start 05/03/17 at 18:00; Stop 05/06/17 at 11:18; Status DC Lactated Ringer's (Lr 1000 ml Inj) 1,000 ml @ 30 mls/hr Q24H PRN IV SEE LABEL COMMENTS; Start 05/06/17 at 02:45; Stop 05/08/17 at 22:08; Status DC Metoprolol Tartrate (Lopressor) 25 mg METAL BONDER PRN PO SEE LABEL COMMENTS; Start 05/06/17 at 02:45; Stop 05/08/17 at 22:08; Status DC Povidone Iodine (Betadine 5% Antisepsis Kit) 1 applic METAL BONDER PRN EACH NARE SEE LABEL COMMENTS; Start 05/06/17 at 02:45; Stop 05/08/17 at 22:08; Status DC Chlorhexidine Gluconate 3 pack 3 pack METAL BONDER PRN TOPICAL SEE LABEL COMMENTS; Start 05/06/17 at 02:45; Stop 05/08/17 at 22:08; Status DC Ciprofloxacin/ Dextrose (Cipro 400 Mg Premix) 200 ml @ As Directed STK-MED ONCE .ROUTE Last administered on 05/06/17 11:47; Start 05/06/17 at 11:46; Stop 05/06/17 at 11:47; Status DC Bupivacaine HCl/ Epinephrine Bitart 30 ml 30 ml STK-MED ONCE .ROUTE Last administered on 05/06/17 12:05; Start 05/06/17 at 12:03; Stop 05/06/17 at 12:04 ; Status DC Ciprofloxacin/ Dextrose (Cipro 400 Mg Premix) 200 ml @ 200 mls/hr Q12H IV Last administered on 05/09/17 12:21; Start 05/06/17 at 23:00; Stop 05/09/17 at 22:59; Status DC Fentanyl Citrate (fentaNYL INJ) 100 mcg STK-MED ONCE .ROUTE ; Start 05/06/17 at 13:37; Stop 05/06/17 at 13:38; Status DC Miscellaneous Information ALL NURSING DEPARTME... UNSCH PRN .XX SEE LABEL COMMENTS; Start 05/06/17 at 13:42; Stop 05/07/17 at 13:41; Status DC Metformin HCl (Glucophage) 500 mg BIDPC PO Last administered on 05/10/17 17:35 ; Start 05/09/17 at 09:00; Stop 05/11/17 at 09:03; Status DC Metformin HCl 850 mg 850 mg BIDPC PO Last administered on 05/22/17 17:44; Start 05/11/17 at 09:15 Sodium Chloride 500 ml @ 30 mls/hr [id number] PRN IV SEE LABEL COMMENTS; Start at 06:45; Stop 05/17/17 at 06:44; Status DC Ciprofloxacin/ Dextrose (Cipro 400 Mg Premix) 200 ml @ As Directed STK-MED ONCE .ROUTE Last administered on 05/14/17 19:05; Start 05/14/17 at 19:04; Stop 05/14/17 at 19:05; Status DC Povidone Iodine (Betadine 10% Oint) 30 applic STK-MED ONCE .ROUTE ; Start at 19:25; Stop 05/14/17 at 19:26; Status DC Fentanyl Citrate (fentaNYL INJ) 250 mcg STK-MED ONCE .ROUTE ; Start 05/14/17 at 19:58; Stop 05/14/17 at 19:59; Status DC Miscellaneous Information ALL NURSING DEPARTME... UNSCH PRN .XX SEE LABEL COMMENTS; Start 05/14/17 at 19:50; Stop 05/15/17 at 19:49; Status DC Povidone Iodine (Betadine 10% Oint) 1 applic DAILY TOPICAL Last administered on 05/22/17 11:22; Start 05/16/17 at 09:00 Propofol (Diprivan 200 Mg/20 ml Inj) 200 mg STK-MED ONCE IV ; Start 05/06/17 at 14:42; Stop 05/20/17 at 14:42; Status DC Ondansetron HCl 4 mg 4 mg STK-MED ONCE IV PUSH ; Start 05/06/17 at 14:42; Stop 05/20/17 at 14:42; Status DC Sodium Chloride (NS 500 ml Inj) 500 ml @ 50 mls/hr Q10H ONCE IV ; Start at 09:00; Stop 05/22/17 at 18:59; Status DC Date of Insertion: April 22, 2017 A/P Assessment and Plan A/P - Necrotizing fasciitis/ Tony's Gangrene Treated for during recent hospitalization. S/p excision and debridement with washout of necrotizing fasciitis of the perineum, scrotum, and bilateral groin region. He had bacteremia and multiple organisms growing from the wound. He completed a course of antibiotics per ID. 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 05/14/17 Irrigation and excisional debridement of wound of scrotum and closure of wound with local advancement flap. Continue wound care. management per plastic surgery- -elevated BUN- suggestive of mild dehydration continue IV fluid and monitor the renal function - Inability to care for self The patient was discharged home from the detention facility and did not have running water. He had a hard time taking care of himself and was brought in to the hospital by police. Case management following continue PT/OT Supportive care. 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 The patient's ostomy bag exploded prior to arrival in the emergency department and reports indicate that he was covered in feces. continue ostomy care. Ostomy nurse consult requested. To follow-up with Dr. Jansen regarding reversal when wound is completely healed - Diabetes mellitus. Improving hyperglycemia A1c 5.8 Continue metformin 850 mg twice daily and monitor sliding scale insulin with Accu-Cheks. 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 wound care nurse following. Heel wound is improving.. Prophylaxis: SCDs and early ambulation. Continue subcutaneous heparin Discharge Planning when cleared by plastic surgery. Madina Brice MD May 23, 2017 10:05
[2017-05-23] MEDS: LIPASE/PROTEASE/AMYLASE (24,000/76,000/120,000) CAP PO SCH ×3 (11:17→19:10)
[2017-05-23] MEDS: METOPROLOL TARTRATE 25 MG TAB PO SCH ×2 (11:17→20:40)
[2017-05-23] MEDS: POLYETHYLENE GLYCOL 17 GM PKG PO SCH (11:17)
[2017-05-23] MEDS: HEPARIN SODIUM - SQ 10,000 UNITS/ML VIAL SQ SCH ×2 (11:18→20:40)
[2017-05-23] MEDS: PANTOPRAZOLE SOD 40 MG DELAYED RELEASE TAB PO SCH (11:18)
[2017-05-23] MEDS: metFORMIN HCL 850 MG TAB PO SCH ×2 (11:18→19:10)
[2017-05-23 12:00] VITALS: BP 121/68; PULSE 82; RESP 16; TEMP 96.3; O2SAT 99
[2017-05-23 16:00] VITALS: BP 113/58; PULSE 76; RESP 14; TEMP 97.8; O2SAT 95
[2017-05-23] MEDS: SODIUM CHLOR 0.9% 1000 ML INJ 1,000 ML IV SCH (16:03)
[2017-05-23 20:00] VITALS: BP 99/62; PULSE 80; RESP 20; TEMP 96.2; O2SAT 96
[2017-05-24] VITALS: BP 111/57; PULSE 90; RESP 20; TEMP 97.1; O2SAT 97
[2017-05-24] MEDS: SODIUM CHLOR 0.9% 1000 ML INJ 1,000 ML IV SCH ×2 (05:09→21:42)
[2017-05-24] MEDS: INSULIN ASPART SUPPLEMENTAL SCALE SQ SCH ×4 (05:09→21:53)
[2017-05-24 08:00] VITALS: BP 130/66; PULSE 78; RESP 16; TEMP 96; O2SAT 100
[2017-05-24] MEDS: METOPROLOL TARTRATE 25 MG TAB PO SCH ×2 (09:00→21:42)
[2017-05-24] MEDS: SODIUM HYPOCHLORITE 0.25% 500 ML BTL TOPICAL SCH ×2 (09:00→11:42)
[2017-05-24] MEDS: JUVEN POWDER 1 PACK G-TUBE SCH ×2 (09:00→21:00)
[2017-05-24] MEDS: POVIDONE IODINE 10% OINT 30 GM TUBE TOPICAL SCH (09:00)
--- NOTE | 2017-05-24 09:33 | HHI.PR ---
Subjective Remarks resting comfortably with no distress. denies pain. no new complaints. Objective Vitals Vital Signs Date Time Temp Pulse Resp B/P Pulse Ox O2 Delivery O2 Flow Rate FiO2 05/24/17 00:00 97.1 90 20 111/57 97 05/23/17 20:00 96.2 80 20 99/62 96 05/23/17 16:00 97.8 76 14 113/58 95 05/23/17 12:00 96.3 82 16 121/68 99 I/O 05/23/17 05/23/17 05/23/17 05/24/17 05/24/17 05/24/17 07:00 15:00 23:00 07:00 15:00 23:00 Intake Total 360 ml 980 ml 1009 ml 991 ml Output Total 1600 ml 1700 ml 300 ml 1950 ml Balance -1240 ml -720 ml 709 ml -959 ml Intake Oral 360 ml 980 ml 480 ml 480 ml IV Total 0 ml 529 ml 511 ml Output Urine Total 1500 ml 1400 ml 300 ml 1950 ml Stool Total 100 ml 300 ml 0 ml 0 ml Result Diagram: 05/21/17 0502 05/24/17 0438 Imaging Last Impressions Chest X-Ray 04/22/17 0000 Signed Impressions: Service Date/Time: Saturday, April 22, 2017 13:57 - CONCLUSION: No acute cardiomegaly disease. Sudhir Velez MD Objective Remarks GENERAL: This is a well-nourished, well-developed patient, in no apparent distress. CARDIOVASCULAR: Regular rate and regular rhythm without murmurs, gallops, or rubs. RESPIRATORY: Clear to auscultation. Breath sounds equal bilaterally. No wheezes , rales, or rhonchi. GASTROINTESTINAL: Abdomen soft, non-tender, nondistended. Normal, active bowel sounds- colostomy in place. MUSCULOSKELETAL: Extremities without clubbing, cyanosis, or edema. NEURO: Alert & Oriented x4 to person, place, time, situation. Moves all ext x4 Procedures 05/06/17 OPERATION: 1. Excisional debridement of skin, subcutaneous tissue of open scrotal wound. 2. Reconstruction of scrotal wound with local advancement flap. 3. Closure of open scrotal wound with allograft, 7 x 10 cm. 05/14/17 Irrigation and excisional debridement of wound of scrotum and closure of wound with local advancement flap. Medications and IVs Current Medications Sodium Chloride (NS 1000 ml Inj) 1,000 ml @ 1,000 mls/hr Q1H IV Last administered on 04/22/17 12:24; Start 04/22/17 at 11:51; Stop 04/22/17 at 12:50 ; Status DC Sodium Chloride (NS Flush) 2 ml UNSCH PRN IV FLUSH FLUSH AFTER USING IV ACCESS ; Start 04/22/17 at 12:00; Stop 05/01/17 at 11:22; Status DC Insulin Human Regular (NovoLIN R INJ) 4 units ONCE ONCE SQ Last administered on 04/22/17 13:23; Start 04/22/17 at 13:00; Stop 04/22/17 at 13:01; Status DC Potassium Chloride (KCl) 30 meq ONCE ONCE PO Last administered on 04/22/17 13 :24; Start 04/22/17 at 13:00; Stop 04/22/17 at 13:01; Status DC Insulin Detemir (Levemir Inj) 22 units DAILY SQ ; Start 04/22/17 at 14:00; Stop 04/22/17 at 15:23; Status DC Metoprolol Tartrate (Lopressor) 25 mg Q12HR PO Last administered on 05/23/17 11:17; Start 04/22/17 at 21:00 Amylase/Lipase/ Protease (Creon 24-76-120) 2 cap TID PO Last administered on 19:10; Start 04/22/17 at 18:00 Pantoprazole Sodium (Protonix) 40 mg DAILY PO Last administered on 05/23/17 11 :18; Start 04/23/17 at 09:00 Sodium Chloride (NS Flush) 2 ml UNSCH PRN IV FLUSH FLUSH AFTER USING IV ACCESS ; Start 04/22/17 at 13:45; Stop 05/01/17 at 11:22; Status DC Sodium Chloride (NS Flush) 2 ml BID IV FLUSH Last administered on 05/01/17 09: 41; Start 04/22/17 at 21:00; Stop 05/01/17 at 11:22; Status DC Acetaminophen (Tylenol) 650 mg Q4H PRN PO TEMP > 100.4; Start 04/22/17 at 13:45 Ondansetron HCl (Zofran Inj) 4 mg Q6H PRN IVP NAUSEA OR VOMITING; Start at 13:45; Stop 05/01/17 at 11:22; Status DC Acetaminophen (Tylenol) 650 mg Q6H PRN PO PAIN SCALE 1 TO 2; Start 04/22/17 at 13:45 Oxycodone HCl (Roxicodone) 5 mg Q4H PRN PO PAIN SCALE 3 TO 10; Start 04/22/17 at 13:45 Naloxone HCl 0.4 mg 0.4 mg UNSCH PRN IV SEE LABEL COMMENTS; Start 04/22/17 at 13:45; Stop 05/01/17 at 11:22; Status DC Ceftriaxone Sodium/Sodium Chloride (Rocephin Inj/NS Inj) 100 ml @ 200 mls/hr ONCE ONCE IV Last administered on 04/22/17 14:08; Start 04/22/17 at 14:00; Stop 04/22/17 at 14:29; Status DC Insulin Detemir (Levemir Inj) 22 units ONCE ONCE SQ Last administered on 17:02; Start 04/22/17 at 17:00; Stop 04/22/17 at 17:01; Status DC Insulin Detemir (Levemir Inj) 22 units DAILY SQ Last administered on 04/23/17 08:24; Start 04/23/17 at 09:00; Stop 04/23/17 at 10:12; Status DC Insulin Aspart 1 1 ACHS SLIDING SCALE SQ Last administered on 04/22/17 17:03 ; Start 04/22/17 at 16:00; Stop 04/22/17 at 19:14; Status DC Ceftriaxone Sodium/Sodium Chloride (Rocephin Inj/NS Inj) 100 ml @ 200 mls/hr Q24H IV Last administered on 04/23/17 08:17; Start 04/23/17 at 09:00; Stop 04/24/17 at 08:26; Status DC Insulin Aspart (NovoLOG SUPPLEMENTAL SCALE) 1 ACHS SLIDING SCALE SQ Last administered on 05/24/17 05:09; Start 04/22/17 at 21:00 Dextrose (D50w (Vial) Inj) 50 ml UNSCH PRN IV HYPOGLYCEMIA-SEE COMMENTS; Start 04/22/17 at 19:15 Glucagon (Glucagon Inj) 1 mg UNSCH PRN OTHER HYPOGLYCEMIA-SEE COMMENTS; Start 04/22/17 at 19:15 Metformin HCl (Glucophage) 500 mg BIDPC PO Last administered on 05/03/17 08:37 ; Start 04/23/17 at 18:00; Stop 05/03/17 at 11:04; Status DC Potassium Chloride (KCl) 30 meq ONCE ONCE PO Last administered on 04/23/17 12 :19; Start 04/23/17 at 11:00; Stop 04/23/17 at 11:37; Status DC Potassium Chloride (KCl) 20 meq ONCE ONCE PO Last administered on 04/23/17 12 :20; Start 04/23/17 at 11:00; Stop 04/23/17 at 11:37; Status DC Potassium Chloride (KCl) 20 meq ONCE ONCE PO Last administered on 04/24/17 09: 41; Start 04/24/17 at 09:00; Stop 04/24/17 at 09:01; Status DC Senna/Docusate Sodium (Idane-Colace) 2 tab BID PRN PO CONSTIPATION; Start at 13:00 Polyethylene Glycol (Miralax) 17 gm DAILY PO Last administered on 05/23/17 11: 17; Start 04/24/17 at 13:00 Heparin Sodium (Porcine) (Heparin Inj) 5,000 units Q12HR SQ Last administered on 05/23/17 20:40; Start 04/25/17 at 21:00 Sodium Hypochlorite (Dakin'S 0.25% Soln) W-D DRESSING TO SCRO... DAILY TOPICAL Last administered on 05/23/17 09:00; Start 04/28/17 at 17:00 Arginine HCl (Thomas Powder) 1 pack BID G-TUBE Last administered on 05/19/17 16 :43; Start 05/01/17 at 21:00 Ondansetron HCl (Zofran Odt) 4 mg Q6H PRN PO NAUSEA OR VOMITING; Start at 11:30 Metformin HCl 1000 mg 1,000 mg BIDPC PO Last administered on 05/05/17 09:00; Start 05/03/17 at 18:00; Stop 05/06/17 at 11:18; Status DC Lactated Ringer's (Lr 1000 ml Inj) 1,000 ml @ 30 mls/hr Q24H PRN IV SEE LABEL COMMENTS; Start 05/06/17 at 02:45; Stop 05/08/17 at 22:08; Status DC Metoprolol Tartrate (Lopressor) 25 mg MARKETING FINANCIAL ANALYST PRN PO SEE LABEL COMMENTS; Start 05/06/17 at 02:45; Stop 05/08/17 at 22:08; Status DC Povidone Iodine (Betadine 5% Antisepsis Kit) 1 applic MARKETING FINANCIAL ANALYST PRN EACH NARE SEE LABEL COMMENTS; Start 05/06/17 at 02:45; Stop 05/08/17 at 22:08; Status DC Chlorhexidine Gluconate 3 pack 3 pack MARKETING FINANCIAL ANALYST PRN TOPICAL SEE LABEL COMMENTS; Start 05/06/17 at 02:45; Stop 05/08/17 at 22:08; Status DC Ciprofloxacin/ Dextrose (Cipro 400 Mg Premix) 200 ml @ As Directed STK-MED ONCE .ROUTE Last administered on 05/06/17 11:47; Start 05/06/17 at 11:46; Stop 05/06/17 at 11:47; Status DC Bupivacaine HCl/ Epinephrine Bitart 30 ml 30 ml STK-MED ONCE .ROUTE Last administered on 05/06/17 12:05; Start 05/06/17 at 12:03; Stop 05/06/17 at 12:04 ; Status DC Ciprofloxacin/ Dextrose (Cipro 400 Mg Premix) 200 ml @ 200 mls/hr Q12H IV Last administered on 05/09/17 12:21; Start 05/06/17 at 23:00; Stop 05/09/17 at 22:59; Status DC Fentanyl Citrate (fentaNYL INJ) 100 mcg STK-MED ONCE .ROUTE ; Start 05/06/17 at 13:37; Stop 05/06/17 at 13:38; Status DC Miscellaneous Information ALL NURSING DEPARTME... UNSCH PRN .XX SEE LABEL COMMENTS; Start 05/06/17 at 13:42; Stop 05/07/17 at 13:41; Status DC Metformin HCl (Glucophage) 500 mg BIDPC PO Last administered on 05/10/17 17:35 ; Start 05/09/17 at 09:00; Stop 05/11/17 at 09:03; Status DC Metformin HCl 850 mg 850 mg BIDPC PO Last administered on 05/23/17 19:10; Start 05/11/17 at 09:15 Sodium Chloride 500 ml @ 30 mls/hr [id number] PRN IV SEE LABEL COMMENTS; Start at 06:45; Stop 05/17/17 at 06:44; Status DC Ciprofloxacin/ Dextrose (Cipro 400 Mg Premix) 200 ml @ As Directed STK-MED ONCE .ROUTE Last administered on 05/14/17 19:05; Start 05/14/17 at 19:04; Stop 05/14/17 at 19:05; Status DC Povidone Iodine (Betadine 10% Oint) 30 applic STK-MED ONCE .ROUTE ; Start at 19:25; Stop 05/14/17 at 19:26; Status DC Fentanyl Citrate (fentaNYL INJ) 250 mcg STK-MED ONCE .ROUTE ; Start 05/14/17 at 19:58; Stop 05/14/17 at 19:59; Status DC Miscellaneous Information ALL NURSING DEPARTME... UNSCH PRN .XX SEE LABEL COMMENTS; Start 05/14/17 at 19:50; Stop 05/15/17 at 19:49; Status DC Povidone Iodine (Betadine 10% Oint) 1 applic DAILY TOPICAL Last administered on 05/22/17 11:22; Start 05/16/17 at 09:00 Propofol (Diprivan 200 Mg/20 ml Inj) 200 mg STK-MED ONCE IV ; Start 05/06/17 at 14:42; Stop 05/20/17 at 14:42; Status DC Ondansetron HCl 4 mg 4 mg STK-MED ONCE IV PUSH ; Start 05/06/17 at 14:42; Stop 05/20/17 at 14:42; Status DC Sodium Chloride 500 ml @ 50 mls/hr Q10H ONCE IV ; Start 05/22/17 at 09:00; Stop 05/22/17 at 18:59; Status DC Sodium Chloride (NS 1000 ml Inj) 1,000 ml @ 60 mls/hr [id number] IV Last administered on 05/24/17 05:09; Start 05/23/17 at 11:00 Date of Insertion: April 22, 2017 A/P Assessment and Plan A/P - Necrotizing fasciitis/ Tony's Gangrene Treated for during recent hospitalization. S/p excision and debridement with washout of necrotizing fasciitis of the perineum, scrotum, and bilateral groin region. He had bacteremia and multiple organisms growing from the wound. He completed a course of antibiotics per ID. 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 05/14/17 Irrigation and excisional debridement of wound of scrotum and closure of wound with local advancement flap. Continue wound care. management per plastic surgery- -elevated BUN- suggestive of mild dehydration received IV fluid - - Inability to care for self The patient was discharged home from the nursing home facility and did not have running water. He had a hard time taking care of himself and was brought in to the hospital by police. Case management following continue PT/OT Supportive care. 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 The patient's ostomy bag exploded prior to arrival in the emergency department and reports indicate that he was covered in feces. continue ostomy care. Ostomy nurse consult requested. To follow-up with Dr. Jansen regarding reversal when wound is completely healed - Diabetes mellitus. A1c 5.8 Continue metformin 850 mg twice daily and monitor sliding scale insulin with Accu-Cheks. 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 wound care nurse following. Heel wound is improving.. Prophylaxis: SCDs and early ambulation. Continue subcutaneous heparin Discharge Planning when cleared by plastic surgery. Madina Brice MD May 24, 2017 09:33
[2017-05-24] MEDS: POLYETHYLENE GLYCOL 17 GM PKG PO SCH (10:35)
[2017-05-24] MEDS: metFORMIN HCL 850 MG TAB PO SCH ×2 (10:35→17:15)
[2017-05-24] MEDS: LIPASE/PROTEASE/AMYLASE (24,000/76,000/120,000) CAP PO SCH ×3 (10:36→17:16)
[2017-05-24] MEDS: HEPARIN SODIUM - SQ 10,000 UNITS/ML VIAL SQ SCH ×2 (10:36→21:43)
[2017-05-24] MEDS: PANTOPRAZOLE SOD 40 MG DELAYED RELEASE TAB PO SCH (10:36)
[2017-05-24 12:00] VITALS: BP 101/64; PULSE 85; RESP 16; TEMP 97.7; O2SAT 100
[2017-05-24 16:00] VITALS: BP 109/62; PULSE 89; RESP 13; TEMP 96.2; O2SAT 99
[2017-05-24 20:00] VITALS: BP 121/56; PULSE 82; RESP 20; TEMP 97.1; O2SAT 97
[2017-05-25] VITALS: BP 121/63; PULSE 76; RESP 20; TEMP 97.2; O2SAT 99
[2017-05-25] MEDS: INSULIN ASPART SUPPLEMENTAL SCALE SQ SCH ×4 (05:13→21:16)
[2017-05-25 08:00] VITALS: BP 105/63; PULSE 66; RESP 18; TEMP 95.4; O2SAT 100
[2017-05-25] MEDS: JUVEN POWDER 1 PACK G-TUBE SCH ×2 (09:00→21:00)
[2017-05-25] MEDS: METOPROLOL TARTRATE 25 MG TAB PO SCH ×2 (09:00→21:00)
[2017-05-25] MEDS: POVIDONE IODINE 10% OINT 30 GM TUBE TOPICAL SCH (09:00)
--- NOTE | 2017-05-25 09:26 | HHI.PR ---
Subjective Remarks resting comfortably with no distress. no new complaints. Objective Vitals Vital Signs Date Time Temp Pulse Resp B/P Pulse Ox O2 Delivery O2 Flow Rate FiO2 05/25/17 08:00 95.4 66 18 105/63 100 05/25/17 00:00 97.2 76 20 121/63 99 05/24/17 20:00 97.1 82 20 121/56 97 05/24/17 16:00 96.2 89 13 109/62 99 05/24/17 12:00 97.7 85 16 101/64 100 I/O 05/24/17 05/24/17 05/24/17 05/25/17 05/25/17 05/25/17 07:00 15:00 23:00 07:00 15:00 23:00 Intake Total 991 ml 1220 ml 1411 ml 893 ml Output Total 1950 ml 1125 ml 2050 ml 1925 ml Balance -959 ml 95 ml -639 ml -1032 ml Intake Oral 480 ml 1220 ml 480 ml 480 ml IV Total 511 ml 931 ml 413 ml Output Urine Total 1950 ml 525 ml 2050 ml 1850 ml Stool Total 0 ml 600 ml 0 ml 75 ml Result Diagram: 05/21/17 0502 05/24/17 0438 Imaging Last Impressions Chest X-Ray 04/22/17 0000 Signed Impressions: Service Date/Time: Saturday, April 22, 2017 13:57 - CONCLUSION: No acute cardiomegaly disease. Sudhir Velez MD Objective Remarks GENERAL: This is a well-nourished, well-developed patient, in no apparent distress. CARDIOVASCULAR: Regular rate and regular rhythm without murmurs, gallops, or rubs. RESPIRATORY: Clear to auscultation. Breath sounds equal bilaterally. No wheezes , rales, or rhonchi. GASTROINTESTINAL: Abdomen soft, non-tender, nondistended. Normal, active bowel sounds- colostomy in place. MUSCULOSKELETAL: Extremities without clubbing, cyanosis, or edema. NEURO: Alert & Oriented x4 to person, place, time, situation. Moves all ext x4 Procedures 05/06/17 OPERATION: 1. Excisional debridement of skin, subcutaneous tissue of open scrotal wound. 2. Reconstruction of scrotal wound with local advancement flap. 3. Closure of open scrotal wound with allograft, 7 x 10 cm. 05/14/17 Irrigation and excisional debridement of wound of scrotum and closure of wound with local advancement flap. Medications and IVs Current Medications Sodium Chloride (NS 1000 ml Inj) 1,000 ml @ 1,000 mls/hr Q1H IV Last administered on 04/22/17 12:24; Start 04/22/17 at 11:51; Stop 04/22/17 at 12:50 ; Status DC Sodium Chloride (NS Flush) 2 ml UNSCH PRN IV FLUSH FLUSH AFTER USING IV ACCESS ; Start 04/22/17 at 12:00; Stop 05/01/17 at 11:22; Status DC Insulin Human Regular (NovoLIN R INJ) 4 units ONCE ONCE SQ Last administered on 04/22/17 13:23; Start 04/22/17 at 13:00; Stop 04/22/17 at 13:01; Status DC Potassium Chloride (KCl) 30 meq ONCE ONCE PO Last administered on 04/22/17 13 :24; Start 04/22/17 at 13:00; Stop 04/22/17 at 13:01; Status DC Insulin Detemir (Levemir Inj) 22 units DAILY SQ ; Start 04/22/17 at 14:00; Stop 04/22/17 at 15:23; Status DC Metoprolol Tartrate (Lopressor) 25 mg Q12HR PO Last administered on 05/24/17 21 :42; Start 04/22/17 at 21:00 Amylase/Lipase/ Protease (Creon 24-76-120) 2 cap TID PO Last administered on 17:16; Start 04/22/17 at 18:00 Pantoprazole Sodium (Protonix) 40 mg DAILY PO Last administered on 05/24/17 10: 36; Start 04/23/17 at 09:00 Sodium Chloride (NS Flush) 2 ml UNSCH PRN IV FLUSH FLUSH AFTER USING IV ACCESS ; Start 04/22/17 at 13:45; Stop 05/01/17 at 11:22; Status DC Sodium Chloride (NS Flush) 2 ml BID IV FLUSH Last administered on 05/01/17 09: 41; Start 04/22/17 at 21:00; Stop 05/01/17 at 11:22; Status DC Acetaminophen (Tylenol) 650 mg Q4H PRN PO TEMP > 100.4; Start 04/22/17 at 13:45 Ondansetron HCl (Zofran Inj) 4 mg Q6H PRN IVP NAUSEA OR VOMITING; Start at 13:45; Stop 05/01/17 at 11:22; Status DC Acetaminophen (Tylenol) 650 mg Q6H PRN PO PAIN SCALE 1 TO 2; Start 04/22/17 at 13:45 Oxycodone HCl (Roxicodone) 5 mg Q4H PRN PO PAIN SCALE 3 TO 10; Start 04/22/17 at 13:45 Naloxone HCl 0.4 mg 0.4 mg UNSCH PRN IV SEE LABEL COMMENTS; Start 04/22/17 at 13:45; Stop 05/01/17 at 11:22; Status DC Ceftriaxone Sodium/Sodium Chloride (Rocephin Inj/NS Inj) 100 ml @ 200 mls/hr ONCE ONCE IV Last administered on 04/22/17 14:08; Start 04/22/17 at 14:00; Stop 04/22/17 at 14:29; Status DC Insulin Detemir (Levemir Inj) 22 units ONCE ONCE SQ Last administered on 17:02; Start 04/22/17 at 17:00; Stop 04/22/17 at 17:01; Status DC Insulin Detemir (Levemir Inj) 22 units DAILY SQ Last administered on 04/23/17 08:24; Start 04/23/17 at 09:00; Stop 04/23/17 at 10:12; Status DC Insulin Aspart 1 1 ACHS SLIDING SCALE SQ Last administered on 04/22/17 17:03 ; Start 04/22/17 at 16:00; Stop 04/22/17 at 19:14; Status DC Ceftriaxone Sodium/Sodium Chloride (Rocephin Inj/NS Inj) 100 ml @ 200 mls/hr Q24H IV Last administered on 04/23/17 08:17; Start 04/23/17 at 09:00; Stop 04/24/17 at 08:26; Status DC Insulin Aspart (NovoLOG SUPPLEMENTAL SCALE) 1 ACHS SLIDING SCALE SQ Last administered on 05/25/17 05:13; Start 04/22/17 at 21:00 Dextrose (D50w (Vial) Inj) 50 ml UNSCH PRN IV HYPOGLYCEMIA-SEE COMMENTS; Start 04/22/17 at 19:15 Glucagon (Glucagon Inj) 1 mg UNSCH PRN OTHER HYPOGLYCEMIA-SEE COMMENTS; Start 04/22/17 at 19:15 Metformin HCl (Glucophage) 500 mg BIDPC PO Last administered on 05/03/17 08:37 ; Start 04/23/17 at 18:00; Stop 05/03/17 at 11:04; Status DC Potassium Chloride (KCl) 30 meq ONCE ONCE PO Last administered on 04/23/17 12 :19; Start 04/23/17 at 11:00; Stop 04/23/17 at 11:37; Status DC Potassium Chloride (KCl) 20 meq ONCE ONCE PO Last administered on 04/23/17 12 :20; Start 04/23/17 at 11:00; Stop 04/23/17 at 11:37; Status DC Potassium Chloride (KCl) 20 meq ONCE ONCE PO Last administered on 04/24/17 09: 41; Start 04/24/17 at 09:00; Stop 04/24/17 at 09:01; Status DC Senna/Docusate Sodium (Diane-Colace) 2 tab BID PRN PO CONSTIPATION; Start at 13:00 Polyethylene Glycol (Miralax) 17 gm DAILY PO Last administered on 05/24/17 10: 35; Start 04/24/17 at 13:00 Heparin Sodium (Porcine) (Heparin Inj) 5,000 units Q12HR SQ Last administered on 05/24/17 21:43; Start 04/25/17 at 21:00 Sodium Hypochlorite (Dakin'S 0.25% Soln) W-D DRESSING TO SCRO... DAILY TOPICAL Last administered on 05/24/17 11:42; Start 04/28/17 at 17:00 Arginine HCl (Thomas Powder) 1 pack BID G-TUBE Last administered on 05/24/17 21: 00; Start 05/01/17 at 21:00 Ondansetron HCl (Zofran Odt) 4 mg Q6H PRN PO NAUSEA OR VOMITING; Start at 11:30 Metformin HCl 1000 mg 1,000 mg BIDPC PO Last administered on 05/05/17 09:00; Start 05/03/17 at 18:00; Stop 05/06/17 at 11:18; Status DC Lactated Ringer's (Lr 1000 ml Inj) 1,000 ml @ 30 mls/hr Q24H PRN IV SEE LABEL COMMENTS; Start 05/06/17 at 02:45; Stop 05/08/17 at 22:08; Status DC Metoprolol Tartrate (Lopressor) 25 mg REMOTE BROADCAST ENGINEER PRN PO SEE LABEL COMMENTS; Start 05/06/17 at 02:45; Stop 05/08/17 at 22:08; Status DC Povidone Iodine (Betadine 5% Antisepsis Kit) 1 applic REMOTE BROADCAST ENGINEER PRN EACH NARE SEE LABEL COMMENTS; Start 05/06/17 at 02:45; Stop 05/08/17 at 22:08; Status DC Chlorhexidine Gluconate 3 pack 3 pack REMOTE BROADCAST ENGINEER PRN TOPICAL SEE LABEL COMMENTS; Start 05/06/17 at 02:45; Stop 05/08/17 at 22:08; Status DC Ciprofloxacin/ Dextrose (Cipro 400 Mg Premix) 200 ml @ As Directed STK-MED ONCE .ROUTE Last administered on 05/06/17 11:47; Start 05/06/17 at 11:46; Stop 05/06/17 at 11:47; Status DC Bupivacaine HCl/ Epinephrine Bitart 30 ml 30 ml STK-MED ONCE .ROUTE Last administered on 05/06/17 12:05; Start 05/06/17 at 12:03; Stop 05/06/17 at 12:04 ; Status DC Ciprofloxacin/ Dextrose (Cipro 400 Mg Premix) 200 ml @ 200 mls/hr Q12H IV Last administered on 05/09/17 12:21; Start 05/06/17 at 23:00; Stop 05/09/17 at 22:59; Status DC Fentanyl Citrate (fentaNYL INJ) 100 mcg STK-MED ONCE .ROUTE ; Start 05/06/17 at 13:37; Stop 05/06/17 at 13:38; Status DC Miscellaneous Information ALL NURSING DEPARTME... UNSCH PRN .XX SEE LABEL COMMENTS; Start 05/06/17 at 13:42; Stop 05/07/17 at 13:41; Status DC Metformin HCl (Glucophage) 500 mg BIDPC PO Last administered on 05/10/17 17:35 ; Start 05/09/17 at 09:00; Stop 05/11/17 at 09:03; Status DC Metformin HCl 850 mg 850 mg BIDPC PO Last administered on 05/24/17 17:15; Start 05/11/17 at 09:15 Sodium Chloride 500 ml @ 30 mls/hr [id number] PRN IV SEE LABEL COMMENTS; Start at 06:45; Stop 05/17/17 at 06:44; Status DC Ciprofloxacin/ Dextrose (Cipro 400 Mg Premix) 200 ml @ As Directed STK-MED ONCE .ROUTE Last administered on 05/14/17 19:05; Start 05/14/17 at 19:04; Stop 05/14/17 at 19:05; Status DC Povidone Iodine (Betadine 10% Oint) 30 applic STK-MED ONCE .ROUTE ; Start at 19:25; Stop 05/14/17 at 19:26; Status DC Fentanyl Citrate (fentaNYL INJ) 250 mcg STK-MED ONCE .ROUTE ; Start 05/14/17 at 19:58; Stop 05/14/17 at 19:59; Status DC Miscellaneous Information ALL NURSING DEPARTME... UNSCH PRN .XX SEE LABEL COMMENTS; Start 05/14/17 at 19:50; Stop 05/15/17 at 19:49; Status DC Povidone Iodine (Betadine 10% Oint) 1 applic DAILY TOPICAL Last administered on 05/24/17 09:00; Start 05/16/17 at 09:00 Propofol (Diprivan 200 Mg/20 ml Inj) 200 mg STK-MED ONCE IV ; Start 05/06/17 at 14:42; Stop 05/20/17 at 14:42; Status DC Ondansetron HCl 4 mg 4 mg STK-MED ONCE IV PUSH ; Start 05/06/17 at 14:42; Stop 05/20/17 at 14:42; Status DC Sodium Chloride 500 ml @ 50 mls/hr Q10H ONCE IV ; Start 05/22/17 at 09:00; Stop 05/22/17 at 18:59; Status DC Sodium Chloride (NS 1000 ml Inj) 1,000 ml @ 60 mls/hr [id number] IV Last administered on 05/24/17 21:42; Start 05/23/17 at 11:00 Date of Insertion: April 22, 2017 A/P Assessment and Plan A/P - Necrotizing fasciitis/ Tony's Gangrene Treated for during recent hospitalization. S/p excision and debridement with washout of necrotizing fasciitis of the perineum, scrotum, and bilateral groin region. He had bacteremia and multiple organisms growing from the wound. He completed a course of antibiotics per ID. 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 05/14/17 Irrigation and excisional debridement of wound of scrotum and closure of wound with local advancement flap. Continue wound care. management per plastic surgery- - Inability to care for self The patient [facility] and did not have running water. He had a hard time taking care of himself and was brought in to the hospital by police. Case management following continue PT/OT Supportive care. 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 The patient's ostomy bag exploded prior to arrival in the emergency department and reports indicate that he was covered in feces. continue ostomy care. Ostomy nurse consult requested. To follow-up with Dr. Jansen regarding reversal when wound is completely healed - Diabetes mellitus. A1c 5.8 Continue metformin 850 mg twice daily and monitor sliding scale insulin with Accu-Cheks. 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 wound care nurse following. Heel wound is improving.. Prophylaxis: SCDs and early ambulation. Continue subcutaneous heparin Discharge Planning when cleared by plastic surgery. Madina Brice MD May 25, 2017 09:26
[2017-05-25] MEDS: metFORMIN HCL 850 MG TAB PO SCH ×2 (11:22→17:33)
[2017-05-25] MEDS: LIPASE/PROTEASE/AMYLASE (24,000/76,000/120,000) CAP PO SCH ×3 (11:22→17:33)
[2017-05-25] MEDS: HEPARIN SODIUM - SQ 10,000 UNITS/ML VIAL SQ SCH ×2 (11:23→21:14)
[2017-05-25] MEDS: POLYETHYLENE GLYCOL 17 GM PKG PO SCH (11:38)
[2017-05-25] MEDS: PANTOPRAZOLE SOD 40 MG DELAYED RELEASE TAB PO SCH (11:38)
[2017-05-25 12:00] VITALS: BP 101/56; PULSE 77; RESP 16; TEMP 96.5; O2SAT 99
[2017-05-25] MEDS: SODIUM CHLOR 0.9% 1000 ML INJ 1,000 ML IV SCH (13:00)
[2017-05-25 16:00] VITALS: BP 114/59; PULSE 81; RESP 12; TEMP 95.5; O2SAT 99
[2017-05-25 20:00] VITALS: BP 98/53; PULSE 86; RESP 17; TEMP 97; O2SAT 98
[2017-05-26] VITALS: BP 100/60; PULSE 84; RESP 17; TEMP 97.6; O2SAT 98
[2017-05-26] MEDS: SODIUM CHLOR 0.9% 1000 ML INJ 1,000 ML IV SCH ×2 (01:49→21:41)
[2017-05-26] MEDS: INSULIN ASPART SUPPLEMENTAL SCALE SQ SCH ×4 (05:57→23:07)
[2017-05-26 08:00] VITALS: BP 118/64; PULSE 81; RESP 17; TEMP 97.3; O2SAT 98
[2017-05-26] MEDS: LIPASE/PROTEASE/AMYLASE (24,000/76,000/120,000) CAP PO SCH ×3 (09:00→17:05)
[2017-05-26] MEDS: JUVEN POWDER 1 PACK G-TUBE SCH ×3 (09:00→22:00)
[2017-05-26] MEDS: POVIDONE IODINE 10% OINT 30 GM TUBE TOPICAL SCH (09:00)
[2017-05-26] MEDS: SODIUM HYPOCHLORITE 0.25% 500 ML BTL TOPICAL SCH (09:00)
--- NOTE | 2017-05-26 09:24 | HHI.PR ---
Subjective Remarks resting comfortably with no distress. no new complaints. no pain. Objective Vitals Vital Signs Date Time Temp Pulse Resp B/P Pulse Ox O2 Delivery O2 Flow Rate FiO2 05/26/17 00:00 97.6 84 17 100/60 98 05/25/17 20:00 97.0 86 17 98/53 98 05/25/17 16:00 95.5 81 12 114/59 99 05/25/17 12:00 96.5 77 16 101/56 99 I/O 05/25/17 05/25/17 05/25/17 05/26/17 05/26/17 05/26/17 07:00 15:00 23:00 07:00 15:00 23:00 Intake Total 893 ml 2440 ml 2217 ml 713 ml 60 ml Output Total 1925 ml 3500 ml 550 ml 500 ml Balance -1032 ml -1060 ml 1667 ml 213 ml 60 ml Intake Oral 480 ml 2440 ml 720 ml 240 ml IV Total 413 ml 1497 ml 473 ml 60 ml Output Urine Total 1850 ml 3000 ml 550 ml 500 ml Stool Total 75 ml 500 ml Result Diagram: 05/24/17 0438 Imaging Last Impressions Chest X-Ray 04/22/17 0000 Signed Impressions: Service Date/Time: Saturday, April 22, 2017 13:57 - CONCLUSION: No acute cardiomegaly disease. Sudhir Velez MD Objective Remarks GENERAL: This is a well-nourished, well-developed patient, in no apparent distress. CARDIOVASCULAR: Regular rate and regular rhythm without murmurs, gallops, or rubs. RESPIRATORY: Clear to auscultation. Breath sounds equal bilaterally. No wheezes , rales, or rhonchi. GASTROINTESTINAL: Abdomen soft, non-tender, nondistended. Normal, active bowel sounds- colostomy in place. MUSCULOSKELETAL: Extremities without clubbing, cyanosis, or edema. NEURO: Alert & Oriented x4 to person, place, time, situation. Moves all ext x4 Procedures 05/06/17 OPERATION: 1. Excisional debridement of skin, subcutaneous tissue of open scrotal wound. 2. Reconstruction of scrotal wound with local advancement flap. 3. Closure of open scrotal wound with allograft, 7 x 10 cm. 05/14/17 Irrigation and excisional debridement of wound of scrotum and closure of wound with local advancement flap. Medications and IVs Current Medications Sodium Chloride (NS 1000 ml Inj) 1,000 ml @ 1,000 mls/hr Q1H IV Last administered on 04/22/17 12:24; Start 04/22/17 at 11:51; Stop 04/22/17 at 12:50 ; Status DC Sodium Chloride (NS Flush) 2 ml UNSCH PRN IV FLUSH FLUSH AFTER USING IV ACCESS ; Start 04/22/17 at 12:00; Stop 05/01/17 at 11:22; Status DC Insulin Human Regular (NovoLIN R INJ) 4 units ONCE ONCE SQ Last administered on 04/22/17 13:23; Start 04/22/17 at 13:00; Stop 04/22/17 at 13:01; Status DC Potassium Chloride (KCl) 30 meq ONCE ONCE PO Last administered on 04/22/17 13 :24; Start 04/22/17 at 13:00; Stop 04/22/17 at 13:01; Status DC Insulin Detemir (Levemir Inj) 22 units DAILY SQ ; Start 04/22/17 at 14:00; Stop 04/22/17 at 15:23; Status DC Metoprolol Tartrate (Lopressor) 25 mg Q12HR PO Last administered on 05/24/17 21 :42; Start 04/22/17 at 21:00 Amylase/Lipase/ Protease (Creon 24-76-120) 2 cap TID PO Last administered on 17:33; Start 04/22/17 at 18:00 Pantoprazole Sodium (Protonix) 40 mg DAILY PO Last administered on 05/25/17 11: 38; Start 04/23/17 at 09:00 Sodium Chloride (NS Flush) 2 ml UNSCH PRN IV FLUSH FLUSH AFTER USING IV ACCESS ; Start 04/22/17 at 13:45; Stop 05/01/17 at 11:22; Status DC Sodium Chloride (NS Flush) 2 ml BID IV FLUSH Last administered on 05/01/17 09: 41; Start 04/22/17 at 21:00; Stop 05/01/17 at 11:22; Status DC Acetaminophen (Tylenol) 650 mg Q4H PRN PO TEMP > 100.4; Start 04/22/17 at 13:45 Ondansetron HCl (Zofran Inj) 4 mg Q6H PRN IVP NAUSEA OR VOMITING; Start at 13:45; Stop 05/01/17 at 11:22; Status DC Acetaminophen (Tylenol) 650 mg Q6H PRN PO PAIN SCALE 1 TO 2; Start 04/22/17 at 13:45 Oxycodone HCl (Roxicodone) 5 mg Q4H PRN PO PAIN SCALE 3 TO 10; Start 04/22/17 at 13:45 Naloxone HCl 0.4 mg 0.4 mg UNSCH PRN IV SEE LABEL COMMENTS; Start 04/22/17 at 13:45; Stop 05/01/17 at 11:22; Status DC Ceftriaxone Sodium/Sodium Chloride (Rocephin Inj/NS Inj) 100 ml @ 200 mls/hr ONCE ONCE IV Last administered on 04/22/17 14:08; Start 04/22/17 at 14:00; Stop 04/22/17 at 14:29; Status DC Insulin Detemir (Levemir Inj) 22 units ONCE ONCE SQ Last administered on 17:02; Start 04/22/17 at 17:00; Stop 04/22/17 at 17:01; Status DC Insulin Detemir (Levemir Inj) 22 units DAILY SQ Last administered on 04/23/17 08:24; Start 04/23/17 at 09:00; Stop 04/23/17 at 10:12; Status DC Insulin Aspart 1 1 ACHS SLIDING SCALE SQ Last administered on 04/22/17 17:03 ; Start 04/22/17 at 16:00; Stop 04/22/17 at 19:14; Status DC Ceftriaxone Sodium/Sodium Chloride (Rocephin Inj/NS Inj) 100 ml @ 200 mls/hr Q24H IV Last administered on 04/23/17 08:17; Start 04/23/17 at 09:00; Stop 04/24/17 at 08:26; Status DC Insulin Aspart (NovoLOG SUPPLEMENTAL SCALE) 1 ACHS SLIDING SCALE SQ Last administered on 05/26/17 05:57; Start 04/22/17 at 21:00 Dextrose (D50w (Vial) Inj) 50 ml UNSCH PRN IV HYPOGLYCEMIA-SEE COMMENTS; Start 04/22/17 at 19:15 Glucagon (Glucagon Inj) 1 mg UNSCH PRN OTHER HYPOGLYCEMIA-SEE COMMENTS; Start 04/22/17 at 19:15 Metformin HCl (Glucophage) 500 mg BIDPC PO Last administered on 05/03/17 08:37 ; Start 04/23/17 at 18:00; Stop 05/03/17 at 11:04; Status DC Potassium Chloride (KCl) 30 meq ONCE ONCE PO Last administered on 04/23/17 12 :19; Start 04/23/17 at 11:00; Stop 04/23/17 at 11:37; Status DC Potassium Chloride (KCl) 20 meq ONCE ONCE PO Last administered on 04/23/17 12 :20; Start 04/23/17 at 11:00; Stop 04/23/17 at 11:37; Status DC Potassium Chloride (KCl) 20 meq ONCE ONCE PO Last administered on 04/24/17 09: 41; Start 04/24/17 at 09:00; Stop 04/24/17 at 09:01; Status DC Senna/Docusate Sodium (Diane-Colace) 2 tab BID PRN PO CONSTIPATION; Start at 13:00 Polyethylene Glycol (Miralax) 17 gm DAILY PO Last administered on 05/25/17 11: 38; Start 04/24/17 at 13:00 Heparin Sodium (Porcine) (Heparin Inj) 5,000 units Q12HR SQ Last administered on 05/25/17 21:14; Start 04/25/17 at 21:00 Sodium Hypochlorite (Dakin'S 0.25% Soln) W-D DRESSING TO SCRO... DAILY TOPICAL Last administered on 05/24/17 11:42; Start 04/28/17 at 17:00 Arginine HCl (Thomas Powder) 1 pack BID G-TUBE Last administered on 05/24/17 21: 00; Start 05/01/17 at 21:00 Ondansetron HCl (Zofran Odt) 4 mg Q6H PRN PO NAUSEA OR VOMITING; Start at 11:30 Metformin HCl 1000 mg 1,000 mg BIDPC PO Last administered on 05/05/17 09:00; Start 05/03/17 at 18:00; Stop 05/06/17 at 11:18; Status DC Lactated Ringer's (Lr 1000 ml Inj) 1,000 ml @ 30 mls/hr Q24H PRN IV SEE LABEL COMMENTS; Start 05/06/17 at 02:45; Stop 05/08/17 at 22:08; Status DC Metoprolol Tartrate (Lopressor) 25 mg TELETYPE OPERATOR PRN PO SEE LABEL COMMENTS; Start 05/06/17 at 02:45; Stop 05/08/17 at 22:08; Status DC Povidone Iodine (Betadine 5% Antisepsis Kit) 1 applic TELETYPE OPERATOR PRN EACH NARE SEE LABEL COMMENTS; Start 05/06/17 at 02:45; Stop 05/08/17 at 22:08; Status DC Chlorhexidine Gluconate 3 pack 3 pack TELETYPE OPERATOR PRN TOPICAL SEE LABEL COMMENTS; Start 05/06/17 at 02:45; Stop 05/08/17 at 22:08; Status DC Ciprofloxacin/ Dextrose (Cipro 400 Mg Premix) 200 ml @ As Directed STK-MED ONCE .ROUTE Last administered on 05/06/17 11:47; Start 05/06/17 at 11:46; Stop 05/06/17 at 11:47; Status DC Bupivacaine HCl/ Epinephrine Bitart 30 ml 30 ml STK-MED ONCE .ROUTE Last administered on 05/06/17 12:05; Start 05/06/17 at 12:03; Stop 05/06/17 at 12:04 ; Status DC Ciprofloxacin/ Dextrose (Cipro 400 Mg Premix) 200 ml @ 200 mls/hr Q12H IV Last administered on 05/09/17 12:21; Start 05/06/17 at 23:00; Stop 05/09/17 at 22:59; Status DC Fentanyl Citrate (fentaNYL INJ) 100 mcg STK-MED ONCE .ROUTE ; Start 05/06/17 at 13:37; Stop 05/06/17 at 13:38; Status DC Miscellaneous Information ALL NURSING DEPARTME... UNSCH PRN .XX SEE LABEL COMMENTS; Start 05/06/17 at 13:42; Stop 05/07/17 at 13:41; Status DC Metformin HCl (Glucophage) 500 mg BIDPC PO Last administered on 05/10/17 17:35 ; Start 05/09/17 at 09:00; Stop 05/11/17 at 09:03; Status DC Metformin HCl 850 mg 850 mg BIDPC PO Last administered on 05/25/17 17:33; Start 05/11/17 at 09:15 Sodium Chloride 500 ml @ 30 mls/hr [id number] PRN IV SEE LABEL COMMENTS; Start at 06:45; Stop 05/17/17 at 06:44; Status DC Ciprofloxacin/ Dextrose (Cipro 400 Mg Premix) 200 ml @ As Directed STK-MED ONCE .ROUTE Last administered on 05/14/17 19:05; Start 05/14/17 at 19:04; Stop 05/14/17 at 19:05; Status DC Povidone Iodine (Betadine 10% Oint) 30 applic STK-MED ONCE .ROUTE ; Start at 19:25; Stop 05/14/17 at 19:26; Status DC Fentanyl Citrate (fentaNYL INJ) 250 mcg STK-MED ONCE .ROUTE ; Start 05/14/17 at 19:58; Stop 05/14/17 at 19:59; Status DC Miscellaneous Information ALL NURSING DEPARTME... UNSCH PRN .XX SEE LABEL COMMENTS; Start 05/14/17 at 19:50; Stop 05/15/17 at 19:49; Status DC Povidone Iodine (Betadine 10% Oint) 1 applic DAILY TOPICAL Last administered on 05/25/17 09:00; Start 05/16/17 at 09:00 Propofol (Diprivan 200 Mg/20 ml Inj) 200 mg STK-MED ONCE IV ; Start 05/06/17 at 14:42; Stop 05/20/17 at 14:42; Status DC Ondansetron HCl 4 mg 4 mg STK-MED ONCE IV PUSH ; Start 05/06/17 at 14:42; Stop 05/20/17 at 14:42; Status DC Sodium Chloride 500 ml @ 50 mls/hr Q10H ONCE IV ; Start 05/22/17 at 09:00; Stop 05/22/17 at 18:59; Status DC Sodium Chloride (NS 1000 ml Inj) 1,000 ml @ 60 mls/hr [id number] IV Last administered on 05/26/17 01:49; Start 05/23/17 at 11:00 Date of Insertion: April 22, 2017 A/P Assessment and Plan A/P - Necrotizing fasciitis/ Tony's Gangrene Treated for during recent hospitalization. S/p excision and debridement with washout of necrotizing fasciitis of the perineum, scrotum, and bilateral groin region. He had bacteremia and multiple organisms growing from the wound. He completed a course of antibiotics per ID. 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 05/14/17 Irrigation and excisional debridement of wound of scrotum and closure of wound with local advancement flap. Continue wound care. management per plastic surgery- - Inability to care for self The patient was discharged home from the [facility]-way facility and did not have running water. He had a hard time taking care of himself and was brought in to the hospital by police. Case management following continue PT/OT Supportive care. 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 The patient's ostomy bag exploded prior to arrival in the emergency department and reports indicate that he was covered in feces. continue ostomy care. Ostomy nurse consult requested. To follow-up with Dr. Jansen regarding reversal when wound is completely healed - Diabetes mellitus. A1c 5.8 Continue metformin 850 mg twice daily and monitor sliding scale insulin with Accu-Cheks. 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 wound care nurse following. Prophylaxis: SCDs and early ambulation. Continue subcutaneous heparin Discharge Planning when cleared by plastic surgery. Madina Brice MD May 26, 2017 09:24
[2017-05-26] MEDS: POLYETHYLENE GLYCOL 17 GM PKG PO SCH (09:37)
[2017-05-26] MEDS: HEPARIN SODIUM - SQ 10,000 UNITS/ML VIAL SQ SCH ×2 (09:37→21:41)
[2017-05-26] MEDS: METOPROLOL TARTRATE 25 MG TAB PO SCH ×2 (09:38→21:41)
[2017-05-26] MEDS: PANTOPRAZOLE SOD 40 MG DELAYED RELEASE TAB PO SCH ×2 (09:38→21:39)
[2017-05-26] MEDS: metFORMIN HCL 850 MG TAB PO SCH ×2 (09:38→17:05)
[2017-05-26 12:00] VITALS: BP 108/60; PULSE 81; RESP 17; TEMP 96.9; O2SAT 97
--- NOTE | 2017-05-26 15:10 | PD.PLAS.PN ---
Subjective Remarks The patient has no complaints today Vital Signs Date Time Temp Pulse Resp B/P Pulse Ox O2 Delivery O2 Flow Rate FiO2 05/26/17 12:00 96.9 81 17 108/60 97 05/26/17 08:00 97.3 81 17 118/64 98 05/26/17 00:00 97.6 84 17 100/60 98 05/25/17 20:00 97.0 86 17 98/53 98 05/25/17 16:00 95.5 81 12 114/59 99 I/O 05/25/17 05/25/17 05/25/17 05/26/17 05/26/17 05/26/17 07:00 15:00 23:00 07:00 15:00 23:00 Intake Total 893 ml 2440 ml 2217 ml 713 ml 60 ml Output Total 1925 ml 3500 ml 550 ml 500 ml Balance -1032 ml -1060 ml 1667 ml 213 ml 60 ml Intake Oral 480 ml 2440 ml 720 ml 240 ml IV Total 413 ml 1497 ml 473 ml 60 ml Output Urine Total 1850 ml 3000 ml 550 ml 500 ml Stool Total 75 ml 500 ml Result Diagram: 05/24/17 0438 Exam Findings The testicles are easily placed back into the scrotal sac. There is still an odor. There is some delay of healing. The tissues surrounding the area show no evidence of cellulitis and are adequately perfused. Plan Impression: The patient's progress is relatively static. Plan: The patient will be taken back to the operating room for additional debridement and closure. This will be later in the week after a few more days of sits baths. The patient understands and accepts the risks and complications of the surgery. Brittney Tobin MD May 26, 2017 15:10
[2017-05-26 20:00] VITALS: BP 114/67; PULSE 81; RESP 17; TEMP 99.5; O2SAT 95
[2017-05-27] VITALS: BP 126/65; PULSE 76; RESP 17; TEMP 98.7; O2SAT 95
[2017-05-27] MEDS: INSULIN ASPART SUPPLEMENTAL SCALE SQ SCH ×4 (06:38→21:00)
[2017-05-27 08:00] VITALS: BP 110/61; PULSE 68; RESP 16; TEMP 96.4; O2SAT 99
[2017-05-27] MEDS: metFORMIN HCL 850 MG TAB PO SCH ×2 (08:59→16:58)
[2017-05-27] MEDS: PANTOPRAZOLE SOD 40 MG DELAYED RELEASE TAB PO SCH (08:59)
[2017-05-27] MEDS: JUVEN POWDER 1 PACK G-TUBE SCH ×2 (08:59→21:00)
[2017-05-27] MEDS: POLYETHYLENE GLYCOL 17 GM PKG PO SCH (08:59)
[2017-05-27] MEDS: METOPROLOL TARTRATE 25 MG TAB PO SCH ×2 (08:59→21:15)
[2017-05-27] MEDS: POVIDONE IODINE 10% OINT 30 GM TUBE TOPICAL SCH (08:59)
[2017-05-27] MEDS: HEPARIN SODIUM - SQ 10,000 UNITS/ML VIAL SQ SCH ×2 (08:59→21:15)
[2017-05-27] MEDS: LIPASE/PROTEASE/AMYLASE (24,000/76,000/120,000) CAP PO SCH ×3 (08:59→16:57)
[2017-05-27] MEDS: SODIUM HYPOCHLORITE 0.25% 500 ML BTL TOPICAL SCH (08:59)
--- NOTE | 2017-05-27 09:54 | HHI.PR ---
Subjective Remarks Follow-up scrotal wound and diabetes mellitus. Patient has no complaints. Hyperglycemia improved. Discussed with RN Objective Vitals Vital Signs Date Time Temp Pulse Resp B/P Pulse Ox O2 Delivery O2 Flow Rate FiO2 05/27/17 08:00 96.4 68 16 110/61 99 05/27/17 00:00 98.7 76 17 126/65 95 05/26/17 20:00 99.5 81 17 114/67 95 05/26/17 12:00 96.9 81 17 108/60 97 I/O 05/26/17 05/26/17 05/26/17 05/27/17 05/27/17 05/27/17 07:00 15:00 23:00 07:00 15:00 23:00 Intake Total 713 ml 1520 ml 240 ml 873 ml Output Total 500 ml 2350 ml 2250 ml 1700 ml Balance 213 ml -830 ml -2010 ml -827 ml Intake Oral 240 ml 1460 ml 240 ml 240 ml IV Total 473 ml 60 ml 633 ml Output Urine Total 500 ml 2000 ml 1650 ml 1700 ml Stool Total 350 ml 600 ml Result Diagram: 05/24/17 0438 Objective Remarks GENERAL: This is a well-nourished, well-developed patient, in no apparent distress. CARDIOVASCULAR: Regular rate and regular rhythm without murmurs, gallops, or rubs. RESPIRATORY: Clear to auscultation. Breath sounds equal bilaterally. No wheezes , rales, or rhonchi. GASTROINTESTINAL: Abdomen soft, non-tender, nondistended. Has colostomy in place. : Still has an open wound in the scrotal MUSCULOSKELETAL: Extremities without clubbing, cyanosis, or edema. NEURO: Alert & Oriented x4 to person, place, time, situation. Moves all ext x4 Procedures 05/06/17 OPERATION: 1. Excisional debridement of skin, subcutaneous tissue of open scrotal wound. 2. Reconstruction of scrotal wound with local advancement flap. 3. Closure of open scrotal wound with allograft, 7 x 10 cm. 05/14/17 Irrigation and excisional debridement of wound of scrotum and closure of wound with local advancement flap. Date of Insertion: April 22, 2017 A/P Problem List: (1) UTI (urinary tract infection) ICD Code: N39.0 Status: Acute (2) Failure to thrive in adult ICD Code: R62.7 Status: Acute Assessment and Plan - Necrotizing fasciitis/ Tony's Gangrene Treated for during recent hospitalization. S/p excision and debridement with washout of necrotizing fasciitis of the perineum, scrotum, and bilateral groin region. He had bacteremia and multiple organisms growing from the wound. He completed a course of antibiotics per ID. 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 05/14/17 Irrigation and excisional debridement of wound of scrotum and closure of wound with local advancement flap. Continue wound care. management per plastic surgery-for further debridement and wound closure this coming Friday - Inability to care for self The patient was discharged home from the correction facility and did not have running water. He had a hard time taking care of himself and was brought in to the hospital by police. Case management following continue PT/OT Supportive care. 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 The patient's ostomy bag exploded prior to arrival in the emergency department and reports indicate that he was covered in feces. continue ostomy care. Ostomy nurse consult requested. To follow-up with Dr. Jansen regarding reversal when wound is completely healed - Diabetes mellitus. A1c 5.8. Improving hyperglycemia Continue metformin 850 mg twice daily and monitor sliding scale insulin with Accu-Cheks. 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 wound care nurse following. Prophylaxis: SCDs and early ambulation. Continue subcutaneous heparin Discharge Planning Accepted by robinson Mazariegos when cleared by plastic surgery Jai Hawkins MD May 27, 2017 09:54
[2017-05-27 12:00] VITALS: BP 111/54; PULSE 78; RESP 17; TEMP 96.9; O2SAT 95
[2017-05-27] MEDS: SODIUM CHLOR 0.9% 1000 ML INJ 1,000 ML IV SCH (15:00)
[2017-05-27 16:00] VITALS: BP 120/61; PULSE 76; RESP 16; TEMP 97.8; O2SAT 99
[2017-05-27 20:00] VITALS: BP 129/72; PULSE 75; RESP 18; TEMP 98.7; O2SAT 96
[2017-05-28] VITALS: BP 116/59; PULSE 71; RESP 18; TEMP 97; O2SAT 97
[2017-05-28] MEDS: INSULIN ASPART SUPPLEMENTAL SCALE SQ SCH ×4 (05:45→22:03)
[2017-05-28 08:00] VITALS: BP 109/65; PULSE 80; RESP 17; TEMP 97.1; O2SAT 98
[2017-05-28] MEDS: METOPROLOL TARTRATE 25 MG TAB PO SCH ×3 (09:00→21:58)
[2017-05-28] MEDS: JUVEN POWDER 1 PACK G-TUBE SCH (09:00)
[2017-05-28] MEDS: POVIDONE IODINE 10% OINT 30 GM TUBE TOPICAL SCH (09:00)
--- NOTE | 2017-05-28 09:09 | HHI.PR ---
Subjective Remarks Follow-up scrotal wound and diabetes mellitus. Patient without complaints. States his fingerstick was checked after eating yesterday. Discussed with RN who was doing wound care Objective Vitals Vital Signs Date Time Temp Pulse Resp B/P Pulse Ox O2 Delivery O2 Flow Rate FiO2 05/28/17 08:00 97.1 80 17 109/65 98 05/28/17 00:00 97.0 71 18 116/59 97 05/27/17 20:00 98.7 75 18 129/72 96 05/27/17 16:00 97.8 76 16 120/61 99 05/27/17 12:00 96.9 78 17 111/54 95 I/O 05/27/17 05/27/17 05/27/17 05/28/17 05/28/17 05/28/17 07:00 15:00 23:00 07:00 15:00 23:00 Intake Total 873 ml 1840 ml 740 ml 240 ml Output Total 1700 ml 1776 ml 2400 ml 1000 ml Balance -827 ml 64 ml -1660 ml -760 ml Intake Oral 240 ml 1200 ml 240 ml 240 ml IV Total 633 ml 640 ml 500 ml Output Urine Total 1700 ml 1775 ml 2400 ml 1000 ml Stool Total 1 ml 0 ml Result Diagram: 05/24/17 0438 Objective Remarks GENERAL: This is a well-nourished, well-developed patient, in no apparent distress. CARDIOVASCULAR: Regular rate and regular rhythm without murmurs, gallops, or rubs. RESPIRATORY: Clear to auscultation. Breath sounds equal bilaterally. No wheezes , rales, or rhonchi. GASTROINTESTINAL: Abdomen soft, non-tender, nondistended. Has colostomy in place. : Still has an open wound in the scrotum MUSCULOSKELETAL: Extremities without clubbing, cyanosis, or edema. NEURO: Alert & Oriented x4 to person, place, time, situation. Moves all ext x4 Procedures 05/06/17 OPERATION: 1. Excisional debridement of skin, subcutaneous tissue of open scrotal wound. 2. Reconstruction of scrotal wound with local advancement flap. 3. Closure of open scrotal wound with allograft, 7 x 10 cm. 05/14/17 Irrigation and excisional debridement of wound of scrotum and closure of wound with local advancement flap. Date of Insertion: April 22, 2017 A/P Problem List: (1) UTI (urinary tract infection) ICD Code: N39.0 Status: Acute (2) Failure to thrive in adult ICD Code: R62.7 Status: Acute Assessment and Plan - Necrotizing fasciitis/ Tony's Gangrene Treated for during recent hospitalization. S/p excision and debridement with washout of necrotizing fasciitis of the perineum, scrotum, and bilateral groin region. He had bacteremia and multiple organisms growing from the wound. He completed a course of antibiotics per ID. 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 05/14/17 Irrigation and excisional debridement of wound of scrotum and closure of wound with local advancement flap. Continue wound care. management per plastic surgery-for further debridement and wound closure this coming Friday - Inability to care for self The patient was discharged home from the long-term facility and did not have running water. He had a hard time taking care of himself and was brought in to the hospital by police. Case management following continue PT/OT Supportive care. 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 The patient's ostomy bag exploded prior to arrival in the emergency department and reports indicate that he was covered in feces. continue ostomy care. Ostomy nurse consult requested. To follow-up with Dr. Jansen regarding reversal when wound is completely healed - Diabetes mellitus. A1c 5.8. Improving hyperglycemia Continue metformin 850 mg twice daily and monitor sliding scale insulin with Accu-Cheks. 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 wound care nurse following. Prophylaxis: SCDs and early ambulation. Continue subcutaneous heparin Discharge Planning Accepted by robinson Mazariegos when cleared by plastic surgery probably this weekend Jai Hawkins MD May 28, 2017 09:09
[2017-05-28] MEDS: HEPARIN SODIUM - SQ 10,000 UNITS/ML VIAL SQ SCH ×2 (09:54→21:58)
[2017-05-28] MEDS: POLYETHYLENE GLYCOL 17 GM PKG PO SCH (09:54)
[2017-05-28] MEDS: LIPASE/PROTEASE/AMYLASE (24,000/76,000/120,000) CAP PO SCH ×3 (09:54→17:45)
[2017-05-28] MEDS: PANTOPRAZOLE SOD 40 MG DELAYED RELEASE TAB PO SCH (09:54)
[2017-05-28] MEDS: metFORMIN HCL 850 MG TAB PO SCH ×2 (09:55→17:45)
[2017-05-28] MEDS: SODIUM HYPOCHLORITE 0.25% 500 ML BTL TOPICAL SCH (09:56)
[2017-05-28 12:00] VITALS: BP 118/61; PULSE 73; RESP 16; TEMP 96.7; O2SAT 99
[2017-05-28 16:00] VITALS: BP 106/57; PULSE 71; RESP 16; TEMP 97.1; O2SAT 99
--- NOTE | 2017-05-28 16:27 | PD.PLAS.PN ---
Subjective Remarks Patient has no complaints today. Objective Vital Signs Date Time Temp Pulse Resp B/P Pulse Ox O2 Delivery O2 Flow Rate FiO2 05/28/17 16:00 97.1 71 16 106/57 99 05/28/17 12:00 96.7 73 16 118/61 99 05/28/17 08:00 97.1 80 17 109/65 98 05/28/17 00:00 97.0 71 18 116/59 97 05/27/17 20:00 98.7 75 18 129/72 96 I/O 05/27/17 05/27/17 05/27/17 05/28/17 05/28/17 05/28/17 07:00 15:00 23:00 07:00 15:00 23:00 Intake Total 873 ml 1840 ml 740 ml 1570 ml Output Total 1700 ml 1776 ml 2400 ml 3250 ml Balance -827 ml 64 ml -1660 ml -1680 ml Intake Oral 240 ml 1200 ml 240 ml 1440 ml IV Total 633 ml 640 ml 500 ml 130 ml Output Urine Total 1700 ml 1775 ml 2400 ml 2850 ml Stool Total 1 ml 0 ml 400 ml Result Diagram: 05/24/17 0438 Exam Findings Patient is resting comfortably in bed. Scrotal wound is not examined today. Assessment and Plan Diagnosis: (1) Open wound of scrotum Assessment and Plan The recommendation is for the patient to undergo surgery for closure of scrotal wound with application of drain and wound vac. The procedure is explained to the patient and questions answered. He indicated that he understood and opted to proceed. Discussed with DALY. Vianney Baum May 28, 2017 16:27
[2017-05-28] MEDS ORDERED: METOPROLOL TARTRATE 25 MG TAB PO PRN (18:45)
[2017-05-28] MEDS ORDERED: SODIUM CHLORID 0.9% 500 ML IV PRN (18:45)
[2017-05-28] MEDS ORDERED: CHLORHEXIDINE GLUCONATE 2 % 1 PACK (2 CLOTHS) TOPICAL PRN (18:45)
[2017-05-28] MEDS ORDERED: LACTATED RINGER'S 1000 ML IV PRN (18:45)
[2017-05-28] MEDS ORDERED: INSULIN HUMAN REGULAR 1,000 UNITS/10 ML VIAL SQ PRN (18:45)
[2017-05-28] MEDS ORDERED: POVIDONE IODINE 5% (ANTISEPSIS KIT) 4 APPLICATIONS EACH NARE PRN (18:45)
[2017-05-28 20:00] VITALS: BP 126/66; PULSE 85; RESP 18; TEMP 97.8; O2SAT 96
[2017-05-28] MEDS: CIPROFLOXACIN 500 MG TAB PO SCH (21:58)
[2017-05-29] VITALS: BP 129/67; PULSE 78; RESP 20; TEMP 97.9; O2SAT 97
[2017-05-29] MEDS: INSULIN ASPART SUPPLEMENTAL SCALE SQ SCH ×4 (05:43→21:56)
[2017-05-29 08:00] VITALS: BP 108/63; PULSE 72; RESP 17; TEMP 96.4; O2SAT 97
[2017-05-29] MEDS: JUVEN POWDER 1 PACK G-TUBE SCH ×2 (08:30→21:00)
[2017-05-29] MEDS: CIPROFLOXACIN 500 MG TAB PO SCH ×2 (08:30→21:49)
[2017-05-29] MEDS: metFORMIN HCL 850 MG TAB PO SCH ×2 (08:30→17:24)
[2017-05-29] MEDS: LIPASE/PROTEASE/AMYLASE (24,000/76,000/120,000) CAP PO SCH ×3 (08:30→17:24)
[2017-05-29] MEDS: POLYETHYLENE GLYCOL 17 GM PKG PO SCH (08:31)
[2017-05-29] MEDS: HEPARIN SODIUM - SQ 10,000 UNITS/ML VIAL SQ SCH ×2 (08:31→21:50)
[2017-05-29] MEDS: PANTOPRAZOLE SOD 40 MG DELAYED RELEASE TAB PO SCH (08:31)
[2017-05-29] MEDS: POVIDONE IODINE 10% OINT 30 GM TUBE TOPICAL SCH (08:31)
[2017-05-29] MEDS: SODIUM HYPOCHLORITE 0.25% 500 ML BTL TOPICAL SCH (08:31)
[2017-05-29] MEDS: METOPROLOL TARTRATE 25 MG TAB PO SCH ×2 (08:39→21:49)
--- NOTE | 2017-05-29 08:49 | HHI.PR ---
Subjective Remarks resting comfortably with no distress. no new complaints. Objective Vitals Vital Signs Date Time Temp Pulse Resp B/P Pulse Ox O2 Delivery O2 Flow Rate FiO2 05/29/17 00:00 97.9 78 20 129/67 97 05/28/17 20:00 97.8 85 18 126/66 96 05/28/17 16:00 97.1 71 16 106/57 99 05/28/17 12:00 96.7 73 16 118/61 99 I/O 05/28/17 05/28/17 05/28/17 05/29/17 05/29/17 05/29/17 07:00 15:00 23:00 07:00 15:00 23:00 Intake Total 1570 ml 240 ml 120 ml Output Total 3250 ml 2575 ml 400 ml Balance -1680 ml -2335 ml -280 ml Intake Oral 1440 ml 240 ml 120 ml IV Total 130 ml 0 ml 0 ml Output Urine Total 2850 ml 2575 ml 400 ml Stool Total 400 ml # Bowel Movements 0 Imaging Last Impressions Chest X-Ray 04/22/17 0000 Signed Impressions: Service Date/Time: Saturday, April 22, 2017 13:57 - CONCLUSION: No acute cardiomegaly disease. Sudhir Velez MD Objective Remarks GENERAL: This is a well-nourished, well-developed patient, in no apparent distress. CARDIOVASCULAR: Regular rate and regular rhythm without murmurs, gallops, or rubs. RESPIRATORY: Clear to auscultation. Breath sounds equal bilaterally. No wheezes , rales, or rhonchi. GASTROINTESTINAL: Abdomen soft, non-tender, nondistended. Normal, active bowel sounds- colostomy in place. MUSCULOSKELETAL: Extremities without clubbing, cyanosis, or edema. NEURO: Alert & Oriented x4 to person, place, time, situation. Moves all ext x4 Procedures 05/06/17 OPERATION: 1. Excisional debridement of skin, subcutaneous tissue of open scrotal wound. 2. Reconstruction of scrotal wound with local advancement flap. 3. Closure of open scrotal wound with allograft, 7 x 10 cm. 05/14/17 Irrigation and excisional debridement of wound of scrotum and closure of wound with local advancement flap. Medications and IVs Current Medications Sodium Chloride (NS 1000 ml Inj) 1,000 ml @ 1,000 mls/hr Q1H IV Last administered on 04/22/17 12:24; Start 04/22/17 at 11:51; Stop 04/22/17 at 12:50 ; Status DC Sodium Chloride (NS Flush) 2 ml UNSCH PRN IV FLUSH FLUSH AFTER USING IV ACCESS ; Start 04/22/17 at 12:00; Stop 05/01/17 at 11:22; Status DC Insulin Human Regular (NovoLIN R INJ) 4 units ONCE ONCE SQ Last administered on 04/22/17 13:23; Start 04/22/17 at 13:00; Stop 04/22/17 at 13:01; Status DC Potassium Chloride (KCl) 30 meq ONCE ONCE PO Last administered on 04/22/17 13 :24; Start 04/22/17 at 13:00; Stop 04/22/17 at 13:01; Status DC Insulin Detemir (Levemir Inj) 22 units DAILY SQ ; Start 04/22/17 at 14:00; Stop 04/22/17 at 15:23; Status DC Metoprolol Tartrate (Lopressor) 25 mg Q12HR PO Last administered on 05/28/17 21 :58; Start 04/22/17 at 21:00 Amylase/Lipase/ Protease (Creon 24-76-120) 2 cap TID PO Last administered on 17:45; Start 04/22/17 at 18:00 Pantoprazole Sodium (Protonix) 40 mg DAILY PO Last administered on 05/28/17 09: 54; Start 04/23/17 at 09:00 Sodium Chloride (NS Flush) 2 ml UNSCH PRN IV FLUSH FLUSH AFTER USING IV ACCESS ; Start 04/22/17 at 13:45; Stop 05/01/17 at 11:22; Status DC Sodium Chloride (NS Flush) 2 ml BID IV FLUSH Last administered on 05/01/17 09: 41; Start 04/22/17 at 21:00; Stop 05/01/17 at 11:22; Status DC Acetaminophen (Tylenol) 650 mg Q4H PRN PO TEMP > 100.4; Start 04/22/17 at 13:45 Ondansetron HCl (Zofran Inj) 4 mg Q6H PRN IVP NAUSEA OR VOMITING; Start at 13:45; Stop 05/01/17 at 11:22; Status DC Acetaminophen (Tylenol) 650 mg Q6H PRN PO PAIN SCALE 1 TO 2; Start 04/22/17 at 13:45 Oxycodone HCl (Roxicodone) 5 mg Q4H PRN PO PAIN SCALE 3 TO 10; Start 04/22/17 at 13:45 Naloxone HCl 0.4 mg 0.4 mg UNSCH PRN IV SEE LABEL COMMENTS; Start 04/22/17 at 13:45; Stop 05/01/17 at 11:22; Status DC Ceftriaxone Sodium/Sodium Chloride (Rocephin Inj/NS Inj) 100 ml @ 200 mls/hr ONCE ONCE IV Last administered on 04/22/17 14:08; Start 04/22/17 at 14:00; Stop 04/22/17 at 14:29; Status DC Insulin Detemir (Levemir Inj) 22 units ONCE ONCE SQ Last administered on 17:02; Start 04/22/17 at 17:00; Stop 04/22/17 at 17:01; Status DC Insulin Detemir (Levemir Inj) 22 units DAILY SQ Last administered on 04/23/17 08:24; Start 04/23/17 at 09:00; Stop 04/23/17 at 10:12; Status DC Insulin Aspart 1 1 ACHS SLIDING SCALE SQ Last administered on 04/22/17 17:03 ; Start 04/22/17 at 16:00; Stop 04/22/17 at 19:14; Status DC Ceftriaxone Sodium/Sodium Chloride (Rocephin Inj/NS Inj) 100 ml @ 200 mls/hr Q24H IV Last administered on 04/23/17 08:17; Start 04/23/17 at 09:00; Stop 04/24/17 at 08:26; Status DC Insulin Aspart (NovoLOG SUPPLEMENTAL SCALE) 1 ACHS SLIDING SCALE SQ Last administered on 05/29/17 05:43; Start 04/22/17 at 21:00 Dextrose (D50w (Vial) Inj) 50 ml UNSCH PRN IV HYPOGLYCEMIA-SEE COMMENTS; Start 04/22/17 at 19:15 Glucagon (Glucagon Inj) 1 mg UNSCH PRN OTHER HYPOGLYCEMIA-SEE COMMENTS; Start 04/22/17 at 19:15 Metformin HCl (Glucophage) 500 mg BIDPC PO Last administered on 05/03/17 08:37 ; Start 04/23/17 at 18:00; Stop 05/03/17 at 11:04; Status DC Potassium Chloride (KCl) 30 meq ONCE ONCE PO Last administered on 04/23/17 12 :19; Start 04/23/17 at 11:00; Stop 04/23/17 at 11:37; Status DC Potassium Chloride (KCl) 20 meq ONCE ONCE PO Last administered on 04/23/17 12 :20; Start 04/23/17 at 11:00; Stop 04/23/17 at 11:37; Status DC Potassium Chloride (KCl) 20 meq ONCE ONCE PO Last administered on 04/24/17 09: 41; Start 04/24/17 at 09:00; Stop 04/24/17 at 09:01; Status DC Senna/Docusate Sodium (Diane-Colace) 2 tab BID PRN PO CONSTIPATION; Start at 13:00 Polyethylene Glycol (Miralax) 17 gm DAILY PO Last administered on 05/28/17 09: 54; Start 04/24/17 at 13:00 Heparin Sodium (Porcine) (Heparin Inj) 5,000 units Q12HR SQ Last administered on 05/28/17 21:58; Start 04/25/17 at 21:00 Sodium Hypochlorite (Dakin'S 0.25% Soln) W-D DRESSING TO SCRO... DAILY TOPICAL Last administered on 05/28/17 09:56; Start 04/28/17 at 17:00 Arginine HCl (Thomas Powder) 1 pack BID G-TUBE Last administered on 05/28/17 09: 00; Start 05/01/17 at 21:00 Ondansetron HCl (Zofran Odt) 4 mg Q6H PRN PO NAUSEA OR VOMITING; Start at 11:30 Metformin HCl 1000 mg 1,000 mg BIDPC PO Last administered on 05/05/17 09:00; Start 05/03/17 at 18:00; Stop 05/06/17 at 11:18; Status DC Lactated Ringer's (Lr 1000 ml Inj) 1,000 ml @ 30 mls/hr Q24H PRN IV SEE LABEL COMMENTS; Start 05/06/17 at 02:45; Stop 05/08/17 at 22:08; Status DC Metoprolol Tartrate (Lopressor) 25 mg SENIOR BUSINESS CONSULTANT PRN PO SEE LABEL COMMENTS; Start 05/06/17 at 02:45; Stop 05/08/17 at 22:08; Status DC Povidone Iodine (Betadine 5% Antisepsis Kit) 1 applic SENIOR BUSINESS CONSULTANT PRN EACH NARE SEE LABEL COMMENTS; Start 05/06/17 at 02:45; Stop 05/08/17 at 22:08; Status DC Chlorhexidine Gluconate 3 pack 3 pack SENIOR BUSINESS CONSULTANT PRN TOPICAL SEE LABEL COMMENTS; Start 05/06/17 at 02:45; Stop 05/08/17 at 22:08; Status DC Ciprofloxacin/ Dextrose (Cipro 400 Mg Premix) 200 ml @ As Directed STK-MED ONCE .ROUTE Last administered on 05/06/17 11:47; Start 05/06/17 at 11:46; Stop 05/06/17 at 11:47; Status DC Bupivacaine HCl/ Epinephrine Bitart 30 ml 30 ml STK-MED ONCE .ROUTE Last administered on 05/06/17 12:05; Start 05/06/17 at 12:03; Stop 05/06/17 at 12:04 ; Status DC Ciprofloxacin/ Dextrose (Cipro 400 Mg Premix) 200 ml @ 200 mls/hr Q12H IV Last administered on 05/09/17 12:21; Start 05/06/17 at 23:00; Stop 05/09/17 at 22:59; Status DC Fentanyl Citrate (fentaNYL INJ) 100 mcg STK-MED ONCE .ROUTE ; Start 05/06/17 at 13:37; Stop 05/06/17 at 13:38; Status DC Miscellaneous Information ALL NURSING DEPARTME... UNSCH PRN .XX SEE LABEL COMMENTS; Start 05/06/17 at 13:42; Stop 05/07/17 at 13:41; Status DC Metformin HCl (Glucophage) 500 mg BIDPC PO Last administered on 05/10/17 17:35 ; Start 05/09/17 at 09:00; Stop 05/11/17 at 09:03; Status DC Metformin HCl 850 mg 850 mg BIDPC PO Last administered on 05/28/17 17:45; Start 05/11/17 at 09:15 Sodium Chloride 500 ml @ 30 mls/hr [id number] PRN IV SEE LABEL COMMENTS; Start at 06:45; Stop 05/17/17 at 06:44; Status DC Ciprofloxacin/ Dextrose (Cipro 400 Mg Premix) 200 ml @ As Directed STK-MED ONCE .ROUTE Last administered on 05/14/17 19:05; Start 05/14/17 at 19:04; Stop 05/14/17 at 19:05; Status DC Povidone Iodine (Betadine 10% Oint) 30 applic STK-MED ONCE .ROUTE ; Start at 19:25; Stop 05/14/17 at 19:26; Status DC Fentanyl Citrate (fentaNYL INJ) 250 mcg STK-MED ONCE .ROUTE ; Start 05/14/17 at 19:58; Stop 05/14/17 at 19:59; Status DC Miscellaneous Information ALL NURSING DEPARTME... UNSCH PRN .XX SEE LABEL COMMENTS; Start 05/14/17 at 19:50; Stop 05/15/17 at 19:49; Status DC Povidone Iodine (Betadine 10% Oint) 1 applic DAILY TOPICAL Last administered on 05/28/17 09:00; Start 05/16/17 at 09:00 Propofol (Diprivan 200 Mg/20 ml Inj) 200 mg STK-MED ONCE IV ; Start 05/06/17 at 14:42; Stop 05/20/17 at 14:42; Status DC Ondansetron HCl 4 mg 4 mg STK-MED ONCE IV PUSH ; Start 05/06/17 at 14:42; Stop 05/20/17 at 14:42; Status DC Sodium Chloride 500 ml @ 50 mls/hr Q10H ONCE IV ; Start 05/22/17 at 09:00; Stop 05/22/17 at 18:59; Status DC Sodium Chloride (NS 1000 ml Inj) 1,000 ml @ 60 mls/hr [id number] IV Last administered on 05/27/17 15:00; Start 05/23/17 at 11:00; Stop 05/28/17 at 09:08; Status DC Ciprofloxacin 500 mg 500 mg Q12HR PO Last administered on 05/28/17 21:58; Start 05/28/17 at 21:00; Stop 7/10/17 at 20:59 Lactated Ringer's 1,000 ml @ 30 mls/hr Q24H PRN IV SEE LABEL COMMENTS; Start at 18:45; Stop 05/31/17 at 18:44 Sodium Chloride (NS 500 ml Inj) 500 ml @ 30 mls/hr [id number] PRN IV SEE LABEL COMMENTS; Start 05/28/17 at 18:45; Stop 05/31/17 at 18:44 Metoprolol Tartrate (Lopressor) 25 mg SENIOR BUSINESS CONSULTANT PRN PO SEE LABEL COMMENTS; Start 05/28/17 at 18:45; Stop 05/31/17 at 18:44 Povidone Iodine (Betadine 5% Antisepsis Kit) 1 applic SENIOR BUSINESS CONSULTANT PRN EACH NARE SEE LABEL COMMENTS; Start 05/28/17 at 18:45; Stop 05/31/17 at 18:44 Chlorhexidine Gluconate (Chlorhexidine 2% Cloth) 3 pack SENIOR BUSINESS CONSULTANT PRN TOPICAL SEE LABEL COMMENTS; Start 05/28/17 at 18:45; Stop 05/31/17 at 18:44 Insulin Human Regular (NovoLIN R INJ) See Protocol Table ... SENIOR BUSINESS CONSULTANT PRN SQ SEE PROTOCOL TABLE; Start 05/28/17 at 18:45; Stop 05/31/17 at 18:44 Date of Insertion: April 22, 2017 A/P Assessment and Plan A/P - Necrotizing fasciitis/ Tony's Gangrene Treated for during recent hospitalization. S/p excision and debridement with washout of necrotizing fasciitis of the perineum, scrotum, and bilateral groin region. He had bacteremia and multiple organisms growing from the wound. He completed a course of antibiotics per ID. 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 05/14/17 Irrigation and excisional debridement of wound of scrotum and closure of wound with local advancement flap. Continue wound care. management per plastic surgery- plan for wound closure soon. - Inability to care for self The patient was discharged home from the nursing home facility and did not have running water. He had a hard time taking care of himself and was brought in to the hospital by police. Case management following continue PT/OT Supportive care. 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 The patient's ostomy bag exploded prior to arrival in the emergency department and reports indicate that he was covered in feces. continue ostomy care. Ostomy nurse consult requested. To follow-up with Dr. Jansen regarding reversal when wound is completely healed - Diabetes mellitus. A1c 5.8 Continue metformin 850 mg twice daily and monitor sliding scale insulin with Accu-Cheks. 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 wound care nurse following. Prophylaxis: SCDs and early ambulation. Continue subcutaneous heparin Discharge Planning when cleared by plastic surgery. Madina Brice MD May 29, 2017 08:49
[2017-05-29] MEDS ORDERED: BACITRACIN TOP OINT 15 GM TUBE ONE (11:20)
[2017-05-29 12:00] VITALS: BP 104/61; PULSE 75; RESP 16; TEMP 96.6; O2SAT 97
[2017-05-29] MEDS ORDERED: PROPOFOL 200 MG/20 ML AMP IV ONE (12:00)
[2017-05-29] MEDS ORDERED: PHENYLEPH/NS 1000 MCG/10 ML SYR IV ONE (12:00)
[2017-05-29] MEDS ORDERED: ONDANSETRON HCL 4 MG/2 ML VIAL IV PUSH ONE (12:00)
[2017-05-29] MEDS ORDERED: NEOSTIGMINE 3 MG/3 ML SYR IV ONE (12:00)
[2017-05-29] MEDS ORDERED: CIPROFLOXACIN 400 MG PREMIX 200 ML ONE (13:21)
[2017-05-29] MEDS ORDERED: FAMOTIDINE 20 MG/2 ML VIAL ONE (13:25)
[2017-05-29] MEDS ORDERED: DEXAMETHASONE SOD PHOS 4 MG/ML VIAL ONE (13:25)
[2017-05-29] MEDS ORDERED: fentaNYL CITRATE 250 MCG/5 ML AMP ONE (13:25)
[2017-05-29] MEDS ORDERED: SILVER SULFADIAZINE 1% CR 400 GM JAR TOPICAL ONE (13:30)
--- NOTE | 2017-05-29 15:21 | HHI.PR ---
Immediate Post Op Note Procedure Date: May 29, 2017 Pre Op Diagnosis: (1) Open wound of scrotum Post Op Diagnosis: (1) Open wound of scrotum Surgeon: Brittney Tobin Starch And Prosize Mixer(s): Karen Baum PA-C Procedure: Staged reconstruction of scrotal wound with flap advancement and wound closure. Estimated blood loss: 50 ml Anesthesia: General Drains: SHERRI Patient to: PACU Patient Condition: Good Date/Time of Procedure: SEE SURGICAL CARE RECORD Brittney Tobin MD May 29, 2017 15:21
[2017-05-29] MEDS ORDERED: DO NOT ADM ANY ANTICOAGULANT DRUGS PRN (15:30)
[2017-05-29 16:15] VITALS: BP 124/64; PULSE 65; RESP 17; TEMP 96.6; O2SAT 96
[2017-05-29 17:09] VITALS: O2SAT 96
[2017-05-29 20:00] VITALS: BP 105/59; PULSE 79; RESP 18; TEMP 98.8; O2SAT 97
--- NOTE | 2017-05-29 23:25 | MP ---
cc: JANETH TOBIN MD DATE OF SURGERY 05/29/17 PREOPERATIVE DIAGNOSIS Open wound of scrotum POSTOPERATIVE DIAGNOSIS Open wound of scrotum. PROCEDURE Staged reconstruction of scrotal wound with flap advancement and wound closure ANESTHESIA General SURGEON Dr. Arsen Tobin DIAL EQUIPMENT ENGINEER SAUMYA Bhatt. INDICATIONS A 67-year-old male with history of 40 Tony's gangrene which has been treated with staged debridement. The patient recently underwent staged closure and is now being admitted for definitive closure. At the completion of the procedure, the wound was completely closed and a drain which was placed was airtight. Operative time was approximately 1 hour. PROCEDURE IN DETAIL The patient was seen preoperatively, taken to operating room, placed in lithotomy position. The scrotal area was prepped with Betadine and draped in usual sterile fashion. After time-out, the edges of the wound were debrided sharply circumferentially. The left side of the opening was incised and the flap which was lateral was freed up. The biofilm was removed from the scrotal area and the area flushed copiously with a dilute solution of Betadine and saline. A drain was then placed through an opening toward the cephalic portion of the flap. This was a 10-mm flat Maco Liao. The wound was then closed with a combination of vertical mattresses and simple sutures. Once the wound was closed, the drain was used to flush the area several times with a dilute solution of Betadine and water, then hooked up to the Maco-Liao drain. The wound area was then cleansed of Betadine and blood and the sutures were dressed with povidone-iodine ointment, Adaptic, Telfa, ABD pads, held in place with the sticky drape. The patient then taken from the operating room to the recovery room in satisfactory condition having tolerated the procedure well. The Ellis was changed at the end of the procedure. MD TIFFANY Crow/ /3:34 PM /11:09 PM
[2017-05-30] VITALS: BP_SYST 108; BP_SYST 111; BP_DIAS 63; BP_DIAS 70; PULSE 76; RESP 18; TEMP 99.3; O2SAT 97
[2017-05-30] MEDS: INSULIN ASPART SUPPLEMENTAL SCALE SQ SCH ×4 (05:35→21:17)
[2017-05-30 08:00] VITALS: BP 118/65; PULSE 70; RESP 16; TEMP 97.9; O2SAT 97
[2017-05-30] MEDS: LIPASE/PROTEASE/AMYLASE (24,000/76,000/120,000) CAP PO SCH ×3 (08:55→16:40)
[2017-05-30] MEDS: JUVEN POWDER 1 PACK G-TUBE SCH ×2 (08:55→20:27)
[2017-05-30] MEDS: METOPROLOL TARTRATE 25 MG TAB PO SCH ×2 (08:56→20:32)
[2017-05-30] MEDS: PANTOPRAZOLE SOD 40 MG DELAYED RELEASE TAB PO SCH (08:56)
[2017-05-30] MEDS: CIPROFLOXACIN 500 MG TAB PO SCH ×2 (08:56→20:32)
[2017-05-30] MEDS: POLYETHYLENE GLYCOL 17 GM PKG PO SCH (08:56)
[2017-05-30] MEDS: HEPARIN SODIUM - SQ 10,000 UNITS/ML VIAL SQ SCH ×2 (08:57→20:32)
[2017-05-30] MEDS: metFORMIN HCL 850 MG TAB PO SCH ×2 (08:57→16:40)
[2017-05-30] MEDS: POVIDONE IODINE 10% OINT 30 GM TUBE TOPICAL SCH (08:58)
[2017-05-30] MEDS: SODIUM HYPOCHLORITE 0.25% 500 ML BTL TOPICAL SCH (08:58)
--- NOTE | 2017-05-30 09:19 | PD.PLAS.PN ---
Subjective Remarks Patient is 1 day status post staged reconstruction of scrotal wound with flap advancement and wound closure. DOS 05/29/17. The patient denies any pain or discomfort following surgery. RN reports 20mL of bloody drainage removed from suction bulb overnight. Objective Vital Signs Date Time Temp Pulse Resp B/P Pulse Ox O2 Delivery O2 Flow Rate FiO2 05/30/17 08:00 97.9 70 16 118/65 97 05/30/17 00:00 99.3 76 18 108/63 97 05/29/17 20:00 98.8 79 18 105/59 97 05/29/17 17:09 96 21 05/29/17 16:15 96.6 65 17 124/64 96 05/29/17 16:00 98.6 62 14 131/62 100 Nasal Cannula 2 05/29/17 15:45 64 14 121/62 100 Nasal Cannula 2 05/29/17 15:30 98.6 67 14 138/69 100 Nasal Cannula 2 05/29/17 12:00 96.6 75 16 104/61 97 I/O 05/29/17 05/29/17 05/29/17 05/30/17 05/30/17 05/30/17 07:00 15:00 23:00 07:00 15:00 23:00 Intake Total 120 ml 0 ml 720 ml 240 ml Output Total 400 ml 700 ml 1430 ml 325 ml Balance -280 ml -700 ml -710 ml -85 ml Intake Oral 120 ml 0 ml 120 ml 240 ml IV Total 0 ml Other 600 ml Output Urine Total 400 ml 500 ml 1400 ml 325 ml Stool Total 200 ml Drainage Total 20 ml 0 ml Estimated Blood Loss 10 ml Exam Findings Patient is resting comfortably in bed. Dressing is in place. Wound is healing well without drainage or evidence of infection. Sutures are intact. Drain is in place. Drain bulb with approximately 20mL of bloody drainage. Assessment and Plan Diagnosis: (1) Open wound of scrotum Assessment and Plan The patient is healing well after surgery. Wound is flushed with 20mL of 0.25% dakins solution using the drain and the suction bulb is reattached. Patient denied any discomfort during procedure. Wound is dressed with Povidone iodine ointment, adaptic, and ABD and secured with paper tape. Dressing is done with DALY. Vianney Baum May 30, 2017 09:19
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
[2017-05-30 11:16] VITALS: O2SAT 97
[2017-05-30 12:00] VITALS: BP 100/59; PULSE 85; RESP 16; TEMP 98.2; O2SAT 97
[2017-05-30 16:00] VITALS: BP 119/66; PULSE 87; RESP 16; TEMP 97.4; O2SAT 97
[2017-05-30 20:00] VITALS: BP 116/62; PULSE 86; RESP 18; TEMP 99.2; O2SAT 96
[2017-05-31] VITALS: BP 101/66; PULSE 86; RESP 18; TEMP 97.9; O2SAT 96
[2017-05-31] MEDS: INSULIN ASPART SUPPLEMENTAL SCALE SQ SCH ×4 (06:45→19:53)
[2017-05-31 08:00] VITALS: BP 112/60; PULSE 93; RESP 16; TEMP 96.7; O2SAT 97
[2017-05-31] MEDS: POVIDONE IODINE 10% OINT 30 GM TUBE TOPICAL SCH (09:00)
[2017-05-31] MEDS: JUVEN POWDER 1 PACK G-TUBE SCH ×2 (09:00→20:35)
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
[2017-05-31] MEDS: CIPROFLOXACIN 500 MG TAB PO SCH ×2 (10:16→19:50)
[2017-05-31] MEDS: LIPASE/PROTEASE/AMYLASE (24,000/76,000/120,000) CAP PO SCH ×3 (10:16→18:28)
[2017-05-31] MEDS: metFORMIN HCL 850 MG TAB PO SCH ×2 (10:17→18:28)
[2017-05-31] MEDS: METOPROLOL TARTRATE 25 MG TAB PO SCH ×2 (10:18→19:50)
[2017-05-31] MEDS: POLYETHYLENE GLYCOL 17 GM PKG PO SCH (10:18)
[2017-05-31] MEDS: HEPARIN SODIUM - SQ 10,000 UNITS/ML VIAL SQ SCH ×2 (10:18→19:51)
[2017-05-31] MEDS: PANTOPRAZOLE SOD 40 MG DELAYED RELEASE TAB PO SCH (10:18)
[2017-05-31 12:00] VITALS: BP 117/66; PULSE 77; RESP 17; TEMP 96.8; O2SAT 100
[2017-05-31] MEDS: SODIUM HYPOCHLORITE 0.25% 500 ML BTL TOPICAL SCH (14:59)
[2017-05-31 16:00] VITALS: BP 120/61; PULSE 71; RESP 16; TEMP 97.3; O2SAT 95
[2017-05-31 20:00] VITALS: BP 118/59; PULSE 76; RESP 20; TEMP 96.4; O2SAT 97
[2017-06-01] VITALS: BP 119/65; PULSE 76; RESP 20; TEMP 96.4; O2SAT 97
[2017-06-01] MEDS: INSULIN ASPART SUPPLEMENTAL SCALE SQ SCH ×4 (06:32→22:09)
[2017-06-01 08:00] VITALS: BP 115/60; PULSE 78; RESP 18; TEMP 97.6; O2SAT 98
[2017-06-01] MEDS: POVIDONE IODINE 10% OINT 30 GM TUBE TOPICAL SCH (09:00)
[2017-06-01] MEDS: JUVEN POWDER 1 PACK G-TUBE SCH ×2 (09:00→21:00)
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
[2017-06-01] MEDS: POLYETHYLENE GLYCOL 17 GM PKG PO SCH (09:53)
[2017-06-01] MEDS: METOPROLOL TARTRATE 25 MG TAB PO SCH ×2 (09:53→21:19)
[2017-06-01] MEDS: metFORMIN HCL 850 MG TAB PO SCH ×2 (09:53→17:15)
[2017-06-01] MEDS: HEPARIN SODIUM - SQ 10,000 UNITS/ML VIAL SQ SCH ×2 (09:53→21:19)
[2017-06-01] MEDS: PANTOPRAZOLE SOD 40 MG DELAYED RELEASE TAB PO SCH (09:53)
[2017-06-01] MEDS: LIPASE/PROTEASE/AMYLASE (24,000/76,000/120,000) CAP PO SCH ×3 (09:53→17:15)
[2017-06-01] MEDS: CIPROFLOXACIN 500 MG TAB PO SCH ×2 (09:53→21:19)
[2017-06-01] MEDS: SODIUM HYPOCHLORITE 0.25% 500 ML BTL TOPICAL SCH (09:54)
[2017-06-01 12:00] VITALS: BP 122/71; PULSE 80; RESP 16; TEMP 97.7; O2SAT 97
[2017-06-01 16:00] VITALS: BP 120/59; PULSE 85; RESP 17; TEMP 98.4; O2SAT 97
[2017-06-01 20:00] VITALS: BP 125/67; PULSE 85; RESP 24; TEMP 99.1; O2SAT 97
[2017-06-02] VITALS: BP 126/58; PULSE 81; RESP 24; TEMP 97.5; O2SAT 97
[2017-06-02] MEDS: INSULIN ASPART SUPPLEMENTAL SCALE SQ SCH ×4 (05:49→22:01)
[2017-06-02 08:00] VITALS: BP 120/60; PULSE 78; RESP 16; TEMP 99.3; O2SAT 97
[2017-06-02] MEDS: CIPROFLOXACIN 500 MG TAB PO SCH (08:05)
[2017-06-02] MEDS: POLYETHYLENE GLYCOL 17 GM PKG PO SCH (08:05)
[2017-06-02] MEDS: LIPASE/PROTEASE/AMYLASE (24,000/76,000/120,000) CAP PO SCH ×3 (08:05→17:09)
[2017-06-02] MEDS: JUVEN POWDER 1 PACK G-TUBE SCH ×2 (08:06→21:00)
[2017-06-02] MEDS: METOPROLOL TARTRATE 25 MG TAB PO SCH ×2 (08:06→21:58)
[2017-06-02] MEDS: HEPARIN SODIUM - SQ 10,000 UNITS/ML VIAL SQ SCH ×2 (08:06→21:58)
[2017-06-02] MEDS: POVIDONE IODINE 10% OINT 30 GM TUBE TOPICAL SCH (08:06)
[2017-06-02] MEDS: metFORMIN HCL 850 MG TAB PO SCH ×2 (08:06→17:09)
[2017-06-02] MEDS: PANTOPRAZOLE SOD 40 MG DELAYED RELEASE TAB PO SCH (08:06)
[2017-06-02] MEDS: SODIUM HYPOCHLORITE 0.25% 500 ML BTL TOPICAL SCH (08:07)
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
[2017-06-02 12:00] VITALS: BP 131/63; PULSE 55; RESP 16; TEMP 97.7; O2SAT 97
--- NOTE | 2017-06-02 15:35 | PD.PLAS.PN ---
Subjective Remarks Patient is 4 days status post staged closure of scrotal wound with local advancement flap on 05/29/17. The patient has no complaints. Objective Vital Signs Date Time Temp Pulse Resp B/P Pulse Ox O2 Delivery O2 Flow Rate FiO2 06/02/17 12:00 97.7 55 16 131/63 97 06/02/17 08:00 99.3 78 16 120/60 97 06/02/17 00:00 97.5 81 24 126/58 97 06/01/17 20:00 99.1 85 24 125/67 97 06/01/17 16:00 98.4 85 17 120/59 97 I/O 06/01/17 06/01/17 06/01/17 06/02/17 06/02/17 06/02/17 07:00 15:00 23:00 07:00 15:00 23:00 Intake Total 320 ml 1200 ml 480 ml 320 ml 340 ml Output Total 1705 ml 1161 ml 1210 ml 1153 ml 1500 ml Balance -1385 ml 39 ml -730 ml -833 ml -1160 ml Intake Oral 320 ml 1200 ml 480 ml 320 ml 340 ml Output Urine Total 1500 ml 1100 ml 1000 ml 1150 ml 1500 ml Stool Total 200 ml 1 ml 200 ml 0 ml Drainage Total 5 ml 60 ml 10 ml 3 ml # Bowel Movements 1 Exam Findings Patient is resting comfortably in chair. Wound is healing well. Sutures are in place. There is no evidence of infection. Assessment and Plan Diagnosis: (1) Open wound of scrotum Assessment and Plan The patient is healing well after surgery. Discussed with RN. Continue with daily SHERRI drain flushes. Discontinue application of povidone ointment. Instead , wash groin area daily with hibiclens, then dry and apply nystatin powder. The exam, history, and the medical decision-making described in the above note were completed with the assistance of the mid-level provider. I reviewed and agree with the findings presented. I attest that I had a [id number] encounter with the patient on the same day, and personally performed and documented my assessment and findings in the medical record. Brittney Tobin M.D. Vianney Baum Jun 02, 2017 15:35
[2017-06-02 16:00] VITALS: BP 143/65; PULSE 52; RESP 16; TEMP 98.3; O2SAT 99
[2017-06-02 20:00] VITALS: BP 130/65; PULSE 89; RESP 19; TEMP 98.6; O2SAT 96
[2017-06-02] MEDS: NYSTATIN 100,000 U/GM PWD 15 GM BTL TOPICAL SCH (21:57)
[2017-06-03] VITALS: BP 122/160; PULSE 81; RESP 20; TEMP 95.9; O2SAT 97
[2017-06-03] MEDS: INSULIN ASPART SUPPLEMENTAL SCALE SQ SCH ×4 (06:12→21:00)
[2017-06-03 08:00] VITALS: BP 146/65; PULSE 88; RESP 16; TEMP 98.7; O2SAT 97
[2017-06-03] MEDS: POVIDONE IODINE 10% OINT 30 GM TUBE TOPICAL SCH (09:00)
[2017-06-03] MEDS: JUVEN POWDER 1 PACK G-TUBE SCH ×2 (09:00→21:00)
[2017-06-03] MEDS: PANTOPRAZOLE SOD 40 MG DELAYED RELEASE TAB PO SCH (09:00)
[2017-06-03] MEDS: METOPROLOL TARTRATE 25 MG TAB PO SCH ×2 (09:01→21:41)
[2017-06-03] MEDS: metFORMIN HCL 850 MG TAB PO SCH ×2 (09:01→17:56)
[2017-06-03] MEDS: POLYETHYLENE GLYCOL 17 GM PKG PO SCH (09:01)
[2017-06-03] MEDS: LIPASE/PROTEASE/AMYLASE (24,000/76,000/120,000) CAP PO SCH ×3 (09:01→17:59)
[2017-06-03] MEDS: HEPARIN SODIUM - SQ 10,000 UNITS/ML VIAL SQ SCH ×2 (09:02→21:40)
[2017-06-03] MEDS: NYSTATIN 100,000 U/GM PWD 15 GM BTL TOPICAL SCH ×2 (09:08→21:42)
[2017-06-03] MEDS: SODIUM HYPOCHLORITE 0.25% 500 ML BTL TOPICAL SCH (09:08)
--- NOTE | 2017-06-03 10:11 | HHI.PR ---
Subjective Remarks in no acute distress. denies pain. no new complaints. Objective Vitals Vital Signs Date Time Temp Pulse Resp B/P Pulse Ox O2 Delivery O2 Flow Rate FiO2 06/03/17 08:00 98.7 88 16 146/65 97 06/03/17 00:00 95.9 81 20 122/160 97 06/02/17 20:00 98.6 89 19 130/65 96 06/02/17 16:00 98.3 52 16 143/65 99 06/02/17 12:00 97.7 55 16 131/63 97 I/O 06/02/17 06/02/17 06/02/17 06/03/17 06/03/17 06/03/17 07:00 15:00 23:00 07:00 15:00 23:00 Intake Total 320 ml 340 ml 240 ml 240 ml Output Total 1153 ml 1530 ml 1875 ml 900 ml Balance -833 ml -1190 ml -1635 ml -660 ml Intake Oral 320 ml 340 ml 240 ml 240 ml IV Total 0 ml 0 ml Output Urine Total 1150 ml 1500 ml 1325 ml 900 ml Stool Total 0 ml 550 ml Drainage Total 3 ml 30 ml 0 ml # Bowel Movements 1 Imaging Last Impressions Chest X-Ray 04/22/17 0000 Signed Impressions: Service Date/Time: Saturday, April 22, 2017 13:57 - CONCLUSION: No acute cardiomegaly disease. Sudhir Velez MD Objective Remarks GENERAL: This is a well-nourished, well-developed patient, in no apparent distress. CARDIOVASCULAR: Regular rate and regular rhythm without murmurs, gallops, or rubs. RESPIRATORY: Clear to auscultation. Breath sounds equal bilaterally. No wheezes , rales, or rhonchi. GASTROINTESTINAL: Abdomen soft, non-tender, nondistended. Normal, active bowel sounds- colostomy in place. MUSCULOSKELETAL: Extremities without clubbing, cyanosis, or edema. NEURO: Alert & Oriented x4 to person, place, time, situation. Moves all ext x4 Procedures 05/06/17 OPERATION: 1. Excisional debridement of skin, subcutaneous tissue of open scrotal wound. 2. Reconstruction of scrotal wound with local advancement flap. 3. Closure of open scrotal wound with allograft, 7 x 10 cm. 05/14/17 Irrigation and excisional debridement of wound of scrotum and closure of wound with local advancement flap. 05/29/17 Staged reconstruction of scrotal wound with flap advancement and wound closure. Medications and IVs Current Medications Sodium Chloride (NS 1000 ml Inj) 1,000 ml @ 1,000 mls/hr Q1H IV Last administered on 04/22/17 12:24; Start 04/22/17 at 11:51; Stop 04/22/17 at 12:50 ; Status DC Sodium Chloride (NS Flush) 2 ml UNSCH PRN IV FLUSH FLUSH AFTER USING IV ACCESS ; Start 04/22/17 at 12:00; Stop 05/01/17 at 11:22; Status DC Insulin Human Regular (NovoLIN R INJ) 4 units ONCE ONCE SQ Last administered on 04/22/17 13:23; Start 04/22/17 at 13:00; Stop 04/22/17 at 13:01; Status DC Potassium Chloride (KCl) 30 meq ONCE ONCE PO Last administered on 04/22/17 13 :24; Start 04/22/17 at 13:00; Stop 04/22/17 at 13:01; Status DC Insulin Detemir (Levemir Inj) 22 units DAILY SQ ; Start 04/22/17 at 14:00; Stop 04/22/17 at 15:23; Status DC Metoprolol Tartrate (Lopressor) 25 mg Q12HR PO Last administered on 06/03/17 09:01; Start 04/22/17 at 21:00 Amylase/Lipase/ Protease (Creon 24-76-120) 2 cap TID PO Last administered on 09:01; Start 04/22/17 at 18:00 Pantoprazole Sodium (Protonix) 40 mg DAILY PO Last administered on 06/03/17 09 :00; Start 04/23/17 at 09:00 Sodium Chloride (NS Flush) 2 ml UNSCH PRN IV FLUSH FLUSH AFTER USING IV ACCESS ; Start 04/22/17 at 13:45; Stop 05/01/17 at 11:22; Status DC Sodium Chloride (NS Flush) 2 ml BID IV FLUSH Last administered on 05/01/17 09: 41; Start 04/22/17 at 21:00; Stop 05/01/17 at 11:22; Status DC Acetaminophen (Tylenol) 650 mg Q4H PRN PO TEMP > 100.4; Start 04/22/17 at 13:45 Ondansetron HCl (Zofran Inj) 4 mg Q6H PRN IVP NAUSEA OR VOMITING; Start at 13:45; Stop 05/01/17 at 11:22; Status DC Acetaminophen (Tylenol) 650 mg Q6H PRN PO PAIN SCALE 1 TO 2; Start 04/22/17 at 13:45 Oxycodone HCl (Roxicodone) 5 mg Q4H PRN PO PAIN SCALE 3 TO 10 Last administered on 05/29/17 21:49; Start 04/22/17 at 13:45 Naloxone HCl 0.4 mg 0.4 mg UNSCH PRN IV SEE LABEL COMMENTS; Start 04/22/17 at 13:45; Stop 05/01/17 at 11:22; Status DC Ceftriaxone Sodium/Sodium Chloride (Rocephin Inj/NS Inj) 100 ml @ 200 mls/hr ONCE ONCE IV Last administered on 04/22/17 14:08; Start 04/22/17 at 14:00; Stop 04/22/17 at 14:29; Status DC Insulin Detemir (Levemir Inj) 22 units ONCE ONCE SQ Last administered on 17:02; Start 04/22/17 at 17:00; Stop 04/22/17 at 17:01; Status DC Insulin Detemir (Levemir Inj) 22 units DAILY SQ Last administered on 04/23/17 08:24; Start 04/23/17 at 09:00; Stop 04/23/17 at 10:12; Status DC Insulin Aspart 1 1 ACHS SLIDING SCALE SQ Last administered on 04/22/17 17:03 ; Start 04/22/17 at 16:00; Stop 04/22/17 at 19:14; Status DC Ceftriaxone Sodium/Sodium Chloride (Rocephin Inj/NS Inj) 100 ml @ 200 mls/hr Q24H IV Last administered on 04/23/17 08:17; Start 04/23/17 at 09:00; Stop 04/24/17 at 08:26; Status DC Insulin Aspart (NovoLOG SUPPLEMENTAL SCALE) 1 ACHS SLIDING SCALE SQ Last administered on 06/03/17 06:12; Start 04/22/17 at 21:00 Dextrose (D50w (Vial) Inj) 50 ml UNSCH PRN IV HYPOGLYCEMIA-SEE COMMENTS; Start 04/22/17 at 19:15 Glucagon (Glucagon Inj) 1 mg UNSCH PRN OTHER HYPOGLYCEMIA-SEE COMMENTS; Start 04/22/17 at 19:15 Metformin HCl (Glucophage) 500 mg BIDPC PO Last administered on 05/03/17 08:37 ; Start 04/23/17 at 18:00; Stop 05/03/17 at 11:04; Status DC Potassium Chloride (KCl) 30 meq ONCE ONCE PO Last administered on 04/23/17 12 :19; Start 04/23/17 at 11:00; Stop 04/23/17 at 11:37; Status DC Potassium Chloride (KCl) 20 meq ONCE ONCE PO Last administered on 04/23/17 12 :20; Start 04/23/17 at 11:00; Stop 04/23/17 at 11:37; Status DC Potassium Chloride (KCl) 20 meq ONCE ONCE PO Last administered on 04/24/17 09: 41; Start 04/24/17 at 09:00; Stop 04/24/17 at 09:01; Status DC Senna/Docusate Sodium (Diane-Colace) 2 tab BID PRN PO CONSTIPATION; Start at 13:00 Polyethylene Glycol (Miralax) 17 gm DAILY PO Last administered on 06/03/17 09: 01; Start 04/24/17 at 13:00 Heparin Sodium (Porcine) (Heparin Inj) 5,000 units Q12HR SQ Last administered on 06/03/17 09:02; Start 04/25/17 at 21:00 Sodium Hypochlorite (Dakin'S 0.25% Soln) W-D DRESSING TO SCRO... DAILY TOPICAL Last administered on 06/03/17 09:08; Start 04/28/17 at 17:00 Arginine HCl (Thomas Powder) 1 pack BID G-TUBE Last administered on 06/03/17 09 :00; Start 05/01/17 at 21:00 Ondansetron HCl (Zofran Odt) 4 mg Q6H PRN PO NAUSEA OR VOMITING; Start at 11:30 Metformin HCl 1000 mg 1,000 mg BIDPC PO Last administered on 05/05/17 09:00; Start 05/03/17 at 18:00; Stop 05/06/17 at 11:18; Status DC Lactated Ringer's (Lr 1000 ml Inj) 1,000 ml @ 30 mls/hr Q24H PRN IV SEE LABEL COMMENTS; Start 05/06/17 at 02:45; Stop 05/08/17 at 22:08; Status DC Metoprolol Tartrate (Lopressor) 25 mg ASSOCIATE PROFESSOR OF ARCHAEOLOGY PRN PO SEE LABEL COMMENTS; Start 05/06/17 at 02:45; Stop 05/08/17 at 22:08; Status DC Povidone Iodine (Betadine 5% Antisepsis Kit) 1 applic ASSOCIATE PROFESSOR OF ARCHAEOLOGY PRN EACH NARE SEE LABEL COMMENTS; Start 05/06/17 at 02:45; Stop 05/08/17 at 22:08; Status DC Chlorhexidine Gluconate 3 pack 3 pack ASSOCIATE PROFESSOR OF ARCHAEOLOGY PRN TOPICAL SEE LABEL COMMENTS; Start 05/06/17 at 02:45; Stop 05/08/17 at 22:08; Status DC Ciprofloxacin/ Dextrose (Cipro 400 Mg Premix) 200 ml @ As Directed STK-MED ONCE .ROUTE Last administered on 05/06/17 11:47; Start 05/06/17 at 11:46; Stop 05/06/17 at 11:47; Status DC Bupivacaine HCl/ Epinephrine Bitart 30 ml 30 ml STK-MED ONCE .ROUTE Last administered on 05/06/17 12:05; Start 05/06/17 at 12:03; Stop 05/06/17 at 12:04 ; Status DC Ciprofloxacin/ Dextrose (Cipro 400 Mg Premix) 200 ml @ 200 mls/hr Q12H IV Last administered on 05/09/17 12:21; Start 05/06/17 at 23:00; Stop 05/09/17 at 22:59; Status DC Fentanyl Citrate (fentaNYL INJ) 100 mcg STK-MED ONCE .ROUTE ; Start 05/06/17 at 13:37; Stop 05/06/17 at 13:38; Status DC Miscellaneous Information ALL NURSING DEPARTME... UNSCH PRN .XX SEE LABEL COMMENTS; Start 05/06/17 at 13:42; Stop 05/07/17 at 13:41; Status DC Metformin HCl (Glucophage) 500 mg BIDPC PO Last administered on 05/10/17 17:35 ; Start 05/09/17 at 09:00; Stop 05/11/17 at 09:03; Status DC Metformin HCl 850 mg 850 mg BIDPC PO Last administered on 06/03/17 09:01; Start 05/11/17 at 09:15 Sodium Chloride 500 ml @ 30 mls/hr [id number] PRN IV SEE LABEL COMMENTS; Start at 06:45; Stop 05/17/17 at 06:44; Status DC Ciprofloxacin/ Dextrose (Cipro 400 Mg Premix) 200 ml @ As Directed STK-MED ONCE .ROUTE Last administered on 05/14/17 19:05; Start 05/14/17 at 19:04; Stop 05/14/17 at 19:05; Status DC Povidone Iodine (Betadine 10% Oint) 30 applic STK-MED ONCE .ROUTE ; Start at 19:25; Stop 05/14/17 at 19:26; Status DC Fentanyl Citrate (fentaNYL INJ) 250 mcg STK-MED ONCE .ROUTE ; Start 05/14/17 at 19:58; Stop 05/14/17 at 19:59; Status DC Miscellaneous Information ALL NURSING DEPARTME... UNSCH PRN .XX SEE LABEL COMMENTS; Start 05/14/17 at 19:50; Stop 05/15/17 at 19:49; Status DC Povidone Iodine (Betadine 10% Oint) 1 applic DAILY TOPICAL Last administered on 06/03/17 09:00; Start 05/16/17 at 09:00 Propofol (Diprivan 200 Mg/20 ml Inj) 200 mg STK-MED ONCE IV ; Start 05/06/17 at 14:42; Stop 05/20/17 at 14:42; Status DC Ondansetron HCl 4 mg 4 mg STK-MED ONCE IV PUSH ; Start 05/06/17 at 14:42; Stop 05/20/17 at 14:42; Status DC Sodium Chloride 500 ml @ 50 mls/hr Q10H ONCE IV ; Start 05/22/17 at 09:00; Stop 05/22/17 at 18:59; Status DC Sodium Chloride (NS 1000 ml Inj) 1,000 ml @ 60 mls/hr [id number] IV Last administered on 7/4/17at 15:00; Start 05/23/17 at 11:00; Stop 05/28/17 at 09:08; Status DC Ciprofloxacin 500 mg 500 mg Q12HR PO Last administered on 06/02/17t 08:05; Start 05/28/17 at 21:00; Stop 06/02/17 at 20:59; Status DC Lactated Ringer's 1,000 ml @ 30 mls/hr Q24H PRN IV SEE LABEL COMMENTS; Start at 18:45; Stop 05/29/17 at 16:25; Status DC Sodium Chloride (NS 500 ml Inj) 500 ml @ 30 mls/hr [id number] PRN IV SEE LABEL COMMENTS; Start 05/28/17 at 18:45; Stop 05/29/17 at 16:25; Status DC Metoprolol Tartrate (Lopressor) 25 mg ASSOCIATE PROFESSOR OF ARCHAEOLOGY PRN PO SEE LABEL COMMENTS; Start 05/28/17 at 18:45; Stop 05/29/17 at 16:25; Status DC Povidone Iodine (Betadine 5% Antisepsis Kit) 1 applic ASSOCIATE PROFESSOR OF ARCHAEOLOGY PRN EACH NARE SEE LABEL COMMENTS; Start 05/28/17 at 18:45; Stop 05/29/17 at 16:25; Status DC Chlorhexidine Gluconate (Chlorhexidine 2% Cloth) 3 pack ASSOCIATE PROFESSOR OF ARCHAEOLOGY PRN TOPICAL SEE LABEL COMMENTS; Start 05/28/17 at 18:45; Stop 05/29/17 at 16:25; Status DC Insulin Human Regular (NovoLIN R INJ) See Protocol Table ... ASSOCIATE PROFESSOR OF ARCHAEOLOGY PRN SQ SEE PROTOCOL TABLE; Start 05/28/17 at 18:45; Stop 05/29/17 at 16:25; Status DC Bacitracin (Baciguent Oint) 15 applic STK-MED ONCE .ROUTE ; Start 05/29/17 at 11: 20; Stop 05/29/17 at 11:21; Status DC Silver Sulfadiazine 1 applic 1 applic ONCE ONCE TOPICAL ; Start 05/29/17 at 13: 30; Stop 05/29/17 at 13:31; Status DC Ciprofloxacin/ Dextrose (Cipro 400 Mg Premix) 200 ml @ As Directed STK-MED ONCE .ROUTE ; Start 05/29/17 at 13:21; Stop 05/29/17 at 13:22; Status DC Famotidine (Pepcid Inj) 20 mg STK-MED ONCE .ROUTE ; Start 05/29/17 at 13:25; Stop 05/29/17 at 13:26; Status DC Dexamethasone Sodium Phosphate (Decadron Inj) 4 mg STK-MED ONCE .ROUTE ; Start 05/29/17 at 13:25; Stop 05/29/17 at 13:26; Status DC Fentanyl Citrate (fentaNYL INJ) 250 mcg STK-MED ONCE .ROUTE ; Start 05/29/17 at 13:25; Stop 05/29/17 at 13:26; Status DC Miscellaneous Information ALL NURSING DEPARTME... UNSCH PRN .XX SEE LABEL COMMENTS; Start 05/29/17 at 15:30; Stop 05/30/17 at 15:29; Status DC Nystatin (Mycostatin Powder) 1 applic Q12HR TOPICAL Last administered on t 09:08; Start 06/02/17 at 21:00 Date of Insertion: April 22, 2017 A/P Assessment and Plan A/P - Necrotizing fasciitis/ Tony's Gangrene Treated for during recent hospitalization. S/p excision and debridement with washout of necrotizing fasciitis of the perineum, scrotum, and bilateral groin region. He had bacteremia and multiple organisms growing from the wound. He completed a course of antibiotics per ID. 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 05/14/17 Irrigation and excisional debridement of wound of scrotum and closure of wound with local advancement flap. 05/29/17 Staged reconstruction of scrotal wound with flap advancement and wound closure. management per plastic surgery- - Inability to care for self The patient was discharged home from the [facility] facility and did not have running water. He had a hard time taking care of himself and was brought in to the hospital by police. Case management following continue PT/OT Supportive care. 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 The patient's ostomy bag exploded prior to arrival in the emergency department and reports indicate that he was covered in feces. continue ostomy care. Ostomy nurse consult requested. To follow-up with Dr. Jansen regarding reversal when wound is completely healed - Diabetes mellitus. A1c 5.8 Continue metformin 850 mg twice daily and monitor sliding scale insulin with Accu-Cheks. 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 wound care nurse following. Prophylaxis: SCDs and early ambulation. Continue subcutaneous heparin Discharge Planning dc to SNF when cleared by plastic surgery. Madina Brice MD Jun 03, 2017 10:11
[2017-06-03 12:00] VITALS: BP 132/60; PULSE 93; RESP 16; TEMP 98.9; O2SAT 95
[2017-06-03 16:00] VITALS: BP 129/60; PULSE 98; RESP 16; TEMP 101; O2SAT 98
[2017-06-03 20:00] VITALS: BP 138/62; PULSE 94; RESP 19; TEMP 96.5; O2SAT 98
[2017-06-04] VITALS: BP 117/59; PULSE 92; RESP 20; TEMP 97.4; O2SAT 96
[2017-06-04] MEDS: INSULIN ASPART SUPPLEMENTAL SCALE SQ SCH ×4 (05:33→21:00)
[2017-06-04 08:00] VITALS: BP 111/57; PULSE 80; RESP 16; TEMP 99.1; O2SAT 94
[2017-06-04] MEDS: PANTOPRAZOLE SOD 40 MG DELAYED RELEASE TAB PO SCH (08:28)
[2017-06-04] MEDS: metFORMIN HCL 850 MG TAB PO SCH ×2 (08:28→17:37)
[2017-06-04] MEDS: POLYETHYLENE GLYCOL 17 GM PKG PO SCH (08:28)
[2017-06-04] MEDS: HEPARIN SODIUM - SQ 10,000 UNITS/ML VIAL SQ SCH ×2 (08:28→21:26)
[2017-06-04] MEDS: METOPROLOL TARTRATE 25 MG TAB PO SCH ×2 (08:28→21:26)
[2017-06-04] MEDS: LIPASE/PROTEASE/AMYLASE (24,000/76,000/120,000) CAP PO SCH ×3 (08:28→17:37)
[2017-06-04] MEDS: NYSTATIN 100,000 U/GM PWD 15 GM BTL TOPICAL SCH ×2 (08:29→21:00)
[2017-06-04] MEDS: SODIUM HYPOCHLORITE 0.25% 500 ML BTL TOPICAL SCH (08:29)
[2017-06-04] MEDS: POVIDONE IODINE 10% OINT 30 GM TUBE TOPICAL SCH (08:30)
[2017-06-04] MEDS: JUVEN POWDER 1 PACK G-TUBE SCH ×2 (08:30→21:00)
--- NOTE | 2017-06-04 09:46 | HHI.PR ---
Subjective Remarks resting comfortably with no distress. denies pain. noted that had a fever yesterday. Objective Vitals Vital Signs Date Time Temp Pulse Resp B/P Pulse Ox O2 Delivery O2 Flow Rate FiO2 06/04/17 08:00 99.1 80 16 111/57 94 06/04/17 00:00 97.4 92 20 117/59 96 06/03/17 20:00 96.5 94 19 138/62 98 06/03/17 16:00 101.0 98 16 129/60 98 06/03/17 12:00 98.9 93 16 132/60 95 I/O 06/03/17 06/03/17 06/03/17 06/04/17 06/04/17 06/04/17 07:00 15:00 23:00 07:00 15:00 23:00 Intake Total 240 ml 240 ml 240 ml 240 ml Output Total 900 ml 900 ml 1500 ml 570 ml Balance -660 ml -660 ml -1260 ml -330 ml Intake Oral 240 ml 240 ml 240 ml 240 ml IV Total 0 ml 0 ml Output Urine Total 900 ml 900 ml 950 ml 550 ml Stool Total 550 ml Drainage Total 20 ml # Bowel Movements 1 Imaging Last Impressions Chest X-Ray 04/22/17 0000 Signed Impressions: Service Date/Time: Saturday, April 22, 2017 13:57 - CONCLUSION: No acute cardiomegaly disease. Sudhir Velez MD Objective Remarks GENERAL: This is a well-nourished, well-developed patient, in no apparent distress. CARDIOVASCULAR: Regular rate and regular rhythm without murmurs, gallops, or rubs. RESPIRATORY: Clear to auscultation. Breath sounds equal bilaterally. No wheezes , rales, or rhonchi. GASTROINTESTINAL: Abdomen soft, non-tender, nondistended. Normal, active bowel sounds- colostomy in place. MUSCULOSKELETAL: Extremities without clubbing, cyanosis, or edema. NEURO: Alert & Oriented x4 to person, place, time, situation. Moves all ext x4 Procedures 05/06/17 OPERATION: 1. Excisional debridement of skin, subcutaneous tissue of open scrotal wound. 2. Reconstruction of scrotal wound with local advancement flap. 3. Closure of open scrotal wound with allograft, 7 x 10 cm. 05/14/17 Irrigation and excisional debridement of wound of scrotum and closure of wound with local advancement flap. 05/29/17 Staged reconstruction of scrotal wound with flap advancement and wound closure. Medications and IVs Current Medications Sodium Chloride (NS 1000 ml Inj) 1,000 ml @ 1,000 mls/hr Q1H IV Last administered on 04/22/17 12:24; Start 04/22/17 at 11:51; Stop 04/22/17 at 12:50 ; Status DC Sodium Chloride (NS Flush) 2 ml UNSCH PRN IV FLUSH FLUSH AFTER USING IV ACCESS ; Start 04/22/17 at 12:00; Stop 05/01/17 at 11:22; Status DC Insulin Human Regular (NovoLIN R INJ) 4 units ONCE ONCE SQ Last administered on 04/22/17 13:23; Start 04/22/17 at 13:00; Stop 04/22/17 at 13:01; Status DC Potassium Chloride (KCl) 30 meq ONCE ONCE PO Last administered on 04/22/17 13 :24; Start 04/22/17 at 13:00; Stop 04/22/17 at 13:01; Status DC Insulin Detemir (Levemir Inj) 22 units DAILY SQ ; Start 04/22/17 at 14:00; Stop 04/22/17 at 15:23; Status DC Metoprolol Tartrate (Lopressor) 25 mg Q12HR PO Last administered on 06/04/17 08:28; Start 04/22/17 at 21:00 Amylase/Lipase/ Protease (Creon 24-76-120) 2 cap TID PO Last administered on 08:28; Start 04/22/17 at 18:00 Pantoprazole Sodium (Protonix) 40 mg DAILY PO Last administered on 06/04/17 08 :28; Start 04/23/17 at 09:00 Sodium Chloride (NS Flush) 2 ml UNSCH PRN IV FLUSH FLUSH AFTER USING IV ACCESS ; Start 04/22/17 at 13:45; Stop 05/01/17 at 11:22; Status DC Sodium Chloride (NS Flush) 2 ml BID IV FLUSH Last administered on 05/01/17 09: 41; Start 04/22/17 at 21:00; Stop 05/01/17 at 11:22; Status DC Acetaminophen (Tylenol) 650 mg Q4H PRN PO TEMP > 100.4; Start 04/22/17 at 13:45 Ondansetron HCl (Zofran Inj) 4 mg Q6H PRN IVP NAUSEA OR VOMITING; Start at 13:45; Stop 05/01/17 at 11:22; Status DC Acetaminophen (Tylenol) 650 mg Q6H PRN PO PAIN SCALE 1 TO 2; Start 04/22/17 at 13:45 Oxycodone HCl (Roxicodone) 5 mg Q4H PRN PO PAIN SCALE 3 TO 10 Last administered on 06/04/17 08:28; Start 04/22/17 at 13:45 Naloxone HCl 0.4 mg 0.4 mg UNSCH PRN IV SEE LABEL COMMENTS; Start 04/22/17 at 13:45; Stop 05/01/17 at 11:22; Status DC Ceftriaxone Sodium/Sodium Chloride (Rocephin Inj/NS Inj) 100 ml @ 200 mls/hr ONCE ONCE IV Last administered on 04/22/17 14:08; Start 04/22/17 at 14:00; Stop 04/22/17 at 14:29; Status DC Insulin Detemir (Levemir Inj) 22 units ONCE ONCE SQ Last administered on 17:02; Start 04/22/17 at 17:00; Stop 04/22/17 at 17:01; Status DC Insulin Detemir (Levemir Inj) 22 units DAILY SQ Last administered on 04/23/17 08:24; Start 04/23/17 at 09:00; Stop 04/23/17 at 10:12; Status DC Insulin Aspart 1 1 ACHS SLIDING SCALE SQ Last administered on 04/22/17 17:03 ; Start 04/22/17 at 16:00; Stop 04/22/17 at 19:14; Status DC Ceftriaxone Sodium/Sodium Chloride (Rocephin Inj/NS Inj) 100 ml @ 200 mls/hr Q24H IV Last administered on 04/23/17 08:17; Start 04/23/17 at 09:00; Stop 04/24/17 at 08:26; Status DC Insulin Aspart (NovoLOG SUPPLEMENTAL SCALE) 1 ACHS SLIDING SCALE SQ Last administered on 06/03/17 21:00; Start 04/22/17 at 21:00 Dextrose (D50w (Vial) Inj) 50 ml UNSCH PRN IV HYPOGLYCEMIA-SEE COMMENTS; Start 04/22/17 at 19:15 Glucagon (Glucagon Inj) 1 mg UNSCH PRN OTHER HYPOGLYCEMIA-SEE COMMENTS; Start 04/22/17 at 19:15 Metformin HCl (Glucophage) 500 mg BIDPC PO Last administered on 05/03/17 08:37 ; Start 04/23/17 at 18:00; Stop 05/03/17 at 11:04; Status DC Potassium Chloride (KCl) 30 meq ONCE ONCE PO Last administered on 04/23/17 12 :19; Start 04/23/17 at 11:00; Stop 04/23/17 at 11:37; Status DC Potassium Chloride (KCl) 20 meq ONCE ONCE PO Last administered on 04/23/17 12 :20; Start 04/23/17 at 11:00; Stop 04/23/17 at 11:37; Status DC Potassium Chloride (KCl) 20 meq ONCE ONCE PO Last administered on 04/24/17 09: 41; Start 04/24/17 at 09:00; Stop 04/24/17 at 09:01; Status DC Senna/Docusate Sodium (Diane-Colace) 2 tab BID PRN PO CONSTIPATION; Start at 13:00 Polyethylene Glycol (Miralax) 17 gm DAILY PO Last administered on 06/04/17 08: 28; Start 04/24/17 at 13:00 Heparin Sodium (Porcine) (Heparin Inj) 5,000 units Q12HR SQ Last administered on 06/04/17 08:28; Start 04/25/17 at 21:00 Sodium Hypochlorite (Dakin'S 0.25% Soln) W-D DRESSING TO SCRO... DAILY TOPICAL Last administered on 06/04/17 08:29; Start 04/28/17 at 17:00 Arginine HCl (Thomas Powder) 1 pack BID G-TUBE Last administered on 06/04/17 08 :30; Start 05/01/17 at 21:00 Ondansetron HCl (Zofran Odt) 4 mg Q6H PRN PO NAUSEA OR VOMITING; Start at 11:30 Metformin HCl 1000 mg 1,000 mg BIDPC PO Last administered on 05/05/17 09:00; Start 05/03/17 at 18:00; Stop 05/06/17 at 11:18; Status DC Lactated Ringer's (Lr 1000 ml Inj) 1,000 ml @ 30 mls/hr Q24H PRN IV SEE LABEL COMMENTS; Start 05/06/17 at 02:45; Stop 05/08/17 at 22:08; Status DC Metoprolol Tartrate (Lopressor) 25 mg BATCH RECORDS CLERK PRN PO SEE LABEL COMMENTS; Start 05/06/17 at 02:45; Stop 05/08/17 at 22:08; Status DC Povidone Iodine (Betadine 5% Antisepsis Kit) 1 applic BATCH RECORDS CLERK PRN EACH NARE SEE LABEL COMMENTS; Start 05/06/17 at 02:45; Stop 05/08/17 at 22:08; Status DC Chlorhexidine Gluconate 3 pack 3 pack BATCH RECORDS CLERK PRN TOPICAL SEE LABEL COMMENTS; Start 05/06/17 at 02:45; Stop 05/08/17 at 22:08; Status DC Ciprofloxacin/ Dextrose (Cipro 400 Mg Premix) 200 ml @ As Directed STK-MED ONCE .ROUTE Last administered on 05/06/17 11:47; Start 05/06/17 at 11:46; Stop 05/06/17 at 11:47; Status DC Bupivacaine HCl/ Epinephrine Bitart 30 ml 30 ml STK-MED ONCE .ROUTE Last administered on 05/06/17 12:05; Start 05/06/17 at 12:03; Stop 05/06/17 at 12:04 ; Status DC Ciprofloxacin/ Dextrose (Cipro 400 Mg Premix) 200 ml @ 200 mls/hr Q12H IV Last administered on 05/09/17 12:21; Start 05/06/17 at 23:00; Stop 05/09/17 at 22:59; Status DC Fentanyl Citrate (fentaNYL INJ) 100 mcg STK-MED ONCE .ROUTE ; Start 05/06/17 at 13:37; Stop 05/06/17 at 13:38; Status DC Miscellaneous Information ALL NURSING DEPARTME... UNSCH PRN .XX SEE LABEL COMMENTS; Start 05/06/17 at 13:42; Stop 05/07/17 at 13:41; Status DC Metformin HCl (Glucophage) 500 mg BIDPC PO Last administered on 05/10/17 17:35 ; Start 05/09/17 at 09:00; Stop 05/11/17 at 09:03; Status DC Metformin HCl 850 mg 850 mg BIDPC PO Last administered on 06/04/17 08:28; Start 05/11/17 at 09:15 Sodium Chloride 500 ml @ 30 mls/hr [id number] PRN IV SEE LABEL COMMENTS; Start at 06:45; Stop 05/17/17 at 06:44; Status DC Ciprofloxacin/ Dextrose (Cipro 400 Mg Premix) 200 ml @ As Directed STK-MED ONCE .ROUTE Last administered on 05/14/17 19:05; Start 05/14/17 at 19:04; Stop 05/14/17 at 19:05; Status DC Povidone Iodine (Betadine 10% Oint) 30 applic STK-MED ONCE .ROUTE ; Start at 19:25; Stop 05/14/17 at 19:26; Status DC Fentanyl Citrate (fentaNYL INJ) 250 mcg STK-MED ONCE .ROUTE ; Start 05/14/17 at 19:58; Stop 05/14/17 at 19:59; Status DC Miscellaneous Information ALL NURSING DEPARTME... UNSCH PRN .XX SEE LABEL COMMENTS; Start 05/14/17 at 19:50; Stop 05/15/17 at 19:49; Status DC Povidone Iodine (Betadine 10% Oint) 1 applic DAILY TOPICAL Last administered on 06/04/17 08:30; Start 05/16/17 at 09:00 Propofol (Diprivan 200 Mg/20 ml Inj) 200 mg STK-MED ONCE IV ; Start 05/06/17 at 14:42; Stop 05/20/17 at 14:42; Status DC Ondansetron HCl 4 mg 4 mg STK-MED ONCE IV PUSH ; Start 05/06/17 at 14:42; Stop 05/20/17 at 14:42; Status DC Sodium Chloride 500 ml @ 50 mls/hr Q10H ONCE IV ; Start 05/22/17 at 09:00; Stop 05/22/17 at 18:59; Status DC Sodium Chloride (NS 1000 ml Inj) 1,000 ml @ 60 mls/hr [id number] IV Last administered on 05/27/17 15:00; Start 05/23/17 at 11:00; Stop 05/28/17 at 09:08; Status DC Ciprofloxacin 500 mg 500 mg Q12HR PO Last administered on 06/02/17 08:05; Start 05/28/17 at 21:00; Stop 06/02/17 at 20:59; Status DC Lactated Ringer's 1,000 ml @ 30 mls/hr Q24H PRN IV SEE LABEL COMMENTS; Start at 18:45; Stop 05/29/17 at 16:25; Status DC Sodium Chloride (NS 500 ml Inj) 500 ml @ 30 mls/hr [id number] PRN IV SEE LABEL COMMENTS; Start 05/28/17 at 18:45; Stop 05/29/17 at 16:25; Status DC Metoprolol Tartrate (Lopressor) 25 mg BATCH RECORDS CLERK PRN PO SEE LABEL COMMENTS; Start 05/28/17 at 18:45; Stop 05/29/17 at 16:25; Status DC Povidone Iodine (Betadine 5% Antisepsis Kit) 1 applic BATCH RECORDS CLERK PRN EACH NARE SEE LABEL COMMENTS; Start 05/28/17 at 18:45; Stop 05/29/17 at 16:25; Status DC Chlorhexidine Gluconate (Chlorhexidine 2% Cloth) 3 pack BATCH RECORDS CLERK PRN TOPICAL SEE LABEL COMMENTS; Start 05/28/17 at 18:45; Stop 05/29/17 at 16:25; Status DC Insulin Human Regular (NovoLIN R INJ) See Protocol Table ... BATCH RECORDS CLERK PRN SQ SEE PROTOCOL TABLE; Start 05/28/17 at 18:45; Stop 05/29/17 at 16:25; Status DC Bacitracin (Baciguent Oint) 15 applic STK-MED ONCE .ROUTE ; Start 05/29/17 at 11: 20; Stop 05/29/17 at 11:21; Status DC Silver Sulfadiazine 1 applic 1 applic ONCE ONCE TOPICAL Last administered on t 13:30; Start 05/29/17 at 13:30; Stop 05/29/17 at 13:31; Status DC Ciprofloxacin/ Dextrose (Cipro 400 Mg Premix) 200 ml @ As Directed STK-MED ONCE .ROUTE ; Start 05/29/17 at 13:21; Stop 05/29/17 at 13:22; Status DC Famotidine (Pepcid Inj) 20 mg STK-MED ONCE .ROUTE ; Start 05/29/17 at 13:25; Stop 05/29/17 at 13:26; Status DC Dexamethasone Sodium Phosphate (Decadron Inj) 4 mg STK-MED ONCE .ROUTE ; Start 05/29/17 at 13:25; Stop 05/29/17 at 13:26; Status DC Fentanyl Citrate (fentaNYL INJ) 250 mcg STK-MED ONCE .ROUTE ; Start 05/29/17 at 13:25; Stop 05/29/17 at 13:26; Status DC Miscellaneous Information ALL NURSING DEPARTME... UNSCH PRN .XX SEE LABEL COMMENTS; Start 05/29/17 at 15:30; Stop 05/30/17 at 15:29; Status DC Nystatin (Mycostatin Powder) 1 applic Q12HR TOPICAL Last administered on t 08:29; Start 06/02/17 at 21:00 Date of Insertion: April 22, 2017 A/P Assessment and Plan A/P - Necrotizing fasciitis/ Tony's Gangrene Treated for during recent hospitalization. S/p excision and debridement with washout of necrotizing fasciitis of the perineum, scrotum, and bilateral groin region. He had bacteremia and multiple organisms growing from the wound. He completed a course of antibiotics per ID. 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 05/14/17 Irrigation and excisional debridement of wound of scrotum and closure of wound with local advancement flap. 05/29/17 Staged reconstruction of scrotal wound with flap advancement and wound closure. management per plastic surgery- -fever- will monitor temps- will check the cultures/ UA if the fever recurs. - Inability to care for self The patient was discharged home from the long term facility and did not have running water. He had a hard time taking care of himself and was brought in to the hospital by police. Case management following continue PT/OT Supportive care. 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 The patient's ostomy bag exploded prior to arrival in the emergency department and reports indicate that he was covered in feces. continue ostomy care. Ostomy nurse consult requested. To follow-up with Dr. Jansen regarding reversal when wound is completely healed - Diabetes mellitus. A1c 5.8 Continue metformin 850 mg twice daily and monitor sliding scale insulin with Accu-Cheks. 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 wound care nurse following. Prophylaxis: SCDs and early ambulation. Continue subcutaneous heparin Discharge Planning dc to SNF when cleared by plastic surgery. Madina Brice MD Jun 04, 2017 09:46
[2017-06-04 12:00] VITALS: BP 140/64; PULSE 91; RESP 16; TEMP 98.8; O2SAT 96
[2017-06-04 16:00] VITALS: BP 146/67; PULSE 96; RESP 16; TEMP 100.5; O2SAT 96
[2017-06-04] MEDS: ACETAMINOPHEN 325 MG TAB PO PRN ×2 (16:11→21:26)
--- NOTE | 2017-06-04 16:14 | PD.PLAS.PN ---
Subjective Remarks Patient is 6 days status post staged closure of scrotal wound with local flap closure on 05/29/17. Patient has no complaints. He denies feeling fever or chills and states that he didn't know he had a fever. We were notified of patient having a fever yesterday. Objective Vital Signs Date Time Temp Pulse Resp B/P Pulse Ox O2 Delivery O2 Flow Rate FiO2 06/04/17 12:00 98.8 91 16 140/64 96 06/04/17 08:00 99.1 80 16 111/57 94 06/04/17 00:00 97.4 92 20 117/59 96 06/03/17 20:00 96.5 94 19 138/62 98 I/O 06/03/17 06/03/17 06/03/17 06/04/17 06/04/17 06/04/17 07:00 15:00 23:00 07:00 15:00 23:00 Intake Total 240 ml 240 ml 240 ml 240 ml 400 ml Output Total 900 ml 900 ml 1500 ml 570 ml 1000 ml Balance -660 ml -660 ml -1260 ml -330 ml -600 ml Intake Oral 240 ml 240 ml 240 ml 240 ml 400 ml IV Total 0 ml 0 ml Output Urine Total 900 ml 900 ml 950 ml 550 ml 1000 ml Stool Total 550 ml Drainage Total 20 ml # Bowel Movements 1 2 Exam Findings Patient is resting comfortably in bed. He is awake and alert. Cheeks look flushed. Wound is healing well. There is no erythema or cellulitis. Drainage in bulb is watery with a slight brown tinge. There is no purulence. Assessment and Plan Diagnosis: (1) Open wound of scrotum Assessment and Plan The patient is healing well after surgery. There is no indication of operative site infection. Patient was flushed and felt warm and RN is ordering vitals to be done and will report any fever to Dr. Wells. Continue with dressing changes and wound care as ordered. Discussed with RN. Discussed with Dr. Tobin. Discharge Planning Will consider drain removal later this week and will further discuss discharge. Because of the patient's course with this wound, it is likely that he should be kept until drain is removed and sutures are out to prevent any further complication. Vianney Baum Jun 04, 2017 16:14
[2017-06-04 20:00] VITALS: BP 123/62; PULSE 98; RESP 17; TEMP 101.8; O2SAT 95
[2017-06-05] VITALS: BP 118/60; PULSE 81; RESP 17; TEMP 98.8; O2SAT 96
[2017-06-05] MEDS: INSULIN ASPART SUPPLEMENTAL SCALE SQ SCH ×4 (06:28→22:02)
[2017-06-05 07:14] LABS: BASOPHIL # 0.1 TH/MM3 (0-0.2); BASOPHIL % 0.6 % (0.0-2.0); EOSINOPHIL # 0.1 TH/MM3 (0-0.4); EOSINOPHIL % 0.5 % (0.0-4.0); HEMATOCRIT 40.3 % (39.0-51.0); HEMO FLAGS DIFF FINAL; LYMPH % 13.6 % (9.0-44.0); LYMPHOCYTE # 1.4 TH/MM3 (1.0-4.8); MEAN CELL VOLUME 88.7 FL (80.0-100.0); MEAN CORPUSCULAR HEMOGLOBIN 29.1 PG (27.0-34.0); MEAN CORPUSCULAR HGB CONC 32.8 % (32.0-36.0); MONO % 17.7 % (0.0-8.0); NEUT % 67.6 % (16.0-70.0); PLATELET COUNT 113 TH/MM3 (150-450); RED BLOOD COUNT 4.54 MIL/MM3 (4.50-5.90); RED CELL DISTRIBUTION WIDTH 14.6 % (11.6-17.2); WHITE BLOOD COUNT 10.3 TH/MM3 (4.0-11.0)
[2017-06-05 07:20] LABS: BICARBONATE 25.8 MEQ/L (21.0-32.0)
[2017-06-05 07:38] LABS: POTASSIUM 4.2 MEQ/L (3.5-5.1)
[2017-06-05 08:00] VITALS: BP 126/63; PULSE 76; RESP 16; TEMP 97.8; O2SAT 92
[2017-06-05] MEDS: POVIDONE IODINE 10% OINT 30 GM TUBE TOPICAL SCH (09:00)
[2017-06-05] MEDS: JUVEN POWDER 1 PACK G-TUBE SCH ×2 (09:00→21:00)
[2017-06-05] MEDS: PANTOPRAZOLE SOD 40 MG DELAYED RELEASE TAB PO SCH (10:20)
[2017-06-05] MEDS: METOPROLOL TARTRATE 25 MG TAB PO SCH ×2 (10:20→21:46)
[2017-06-05] MEDS: LIPASE/PROTEASE/AMYLASE (24,000/76,000/120,000) CAP PO SCH ×3 (10:21→17:27)
[2017-06-05] MEDS: metFORMIN HCL 850 MG TAB PO SCH ×2 (10:21→17:31)
[2017-06-05] MEDS: HEPARIN SODIUM - SQ 10,000 UNITS/ML VIAL SQ SCH ×2 (10:22→21:46)
[2017-06-05] MEDS: POLYETHYLENE GLYCOL 17 GM PKG PO SCH (10:22)
[2017-06-05] MEDS: SODIUM HYPOCHLORITE 0.25% 500 ML BTL TOPICAL SCH (10:23)
[2017-06-05] MEDS: NYSTATIN 100,000 U/GM PWD 15 GM BTL TOPICAL SCH ×2 (10:23→21:47)
[2017-06-05 12:00] VITALS: BP 125/66; PULSE 94; RESP 17; TEMP 100.8; O2SAT 96
--- NOTE | 2017-06-05 12:10 | HHI.PR ---
Subjective Remarks in no acute distress. denies any pain or sob. noted recurrent fever. d/w the RN and no other acute issues over night. Objective Vitals Vital Signs Date Time Temp Pulse Resp B/P Pulse Ox O2 Delivery O2 Flow Rate FiO2 06/05/17 08:00 97.8 76 16 126/63 92 06/05/17 00:00 98.8 81 17 118/60 96 06/04/17 20:00 101.8 98 17 123/62 95 06/04/17 16:00 100.5 96 16 146/67 96 I/O 06/04/17 06/04/17 06/04/17 06/05/17 06/05/17 06/05/17 07:00 15:00 23:00 07:00 15:00 23:00 Intake Total 240 ml 400 ml 240 ml 240 ml Output Total 570 ml 1000 ml 1500 ml 2040 ml Balance -330 ml -600 ml -1260 ml -1800 ml Intake Oral 240 ml 400 ml 240 ml 240 ml IV Total 0 ml 0 ml Output Urine Total 550 ml 1000 ml 1500 ml 1400 ml Stool Total 600 ml Drainage Total 20 ml 40 ml # Bowel Movements 2 Result Diagram: 06/05/17 0611 06/05/17 0611 Imaging Last Impressions Chest X-Ray 04/22/17 0000 Signed Impressions: Service Date/Time: Saturday, April 22, 2017 13:57 - CONCLUSION: No acute cardiomegaly disease. Sudhir Velez MD Objective Remarks GENERAL: This is a well-nourished, well-developed patient, in no apparent distress. CARDIOVASCULAR: Regular rate and regular rhythm without murmurs, gallops, or rubs. RESPIRATORY: Clear to auscultation. Breath sounds equal bilaterally. No wheezes , rales, or rhonchi. GASTROINTESTINAL: Abdomen soft, non-tender, nondistended. Normal, active bowel sounds- colostomy in place. MUSCULOSKELETAL: Extremities without clubbing, cyanosis, or edema. NEURO: Alert & Oriented x4 to person, place, time, situation. Moves all ext x4 Procedures 05/06/17 OPERATION: 1. Excisional debridement of skin, subcutaneous tissue of open scrotal wound. 2. Reconstruction of scrotal wound with local advancement flap. 3. Closure of open scrotal wound with allograft, 7 x 10 cm. 05/14/17 Irrigation and excisional debridement of wound of scrotum and closure of wound with local advancement flap. 05/29/17 Staged reconstruction of scrotal wound with flap advancement and wound closure. Medications and IVs Current Medications Sodium Chloride (NS 1000 ml Inj) 1,000 ml @ 1,000 mls/hr Q1H IV Last administered on 04/22/17 12:24; Start 04/22/17 at 11:51; Stop 04/22/17 at 12:50 ; Status DC Sodium Chloride (NS Flush) 2 ml UNSCH PRN IV FLUSH FLUSH AFTER USING IV ACCESS ; Start 04/22/17 at 12:00; Stop 05/01/17 at 11:22; Status DC Insulin Human Regular (NovoLIN R INJ) 4 units ONCE ONCE SQ Last administered on 04/22/17 13:23; Start 04/22/17 at 13:00; Stop 04/22/17 at 13:01; Status DC Potassium Chloride (KCl) 30 meq ONCE ONCE PO Last administered on 04/22/17 13 :24; Start 04/22/17 at 13:00; Stop 04/22/17 at 13:01; Status DC Insulin Detemir (Levemir Inj) 22 units DAILY SQ ; Start 04/22/17 at 14:00; Stop 04/22/17 at 15:23; Status DC Metoprolol Tartrate (Lopressor) 25 mg Q12HR PO Last administered on 06/05/17 10:20; Start 04/22/17 at 21:00 Amylase/Lipase/ Protease (Creon 24-76-120) 2 cap TID PO Last administered on 10:21; Start 04/22/17 at 18:00 Pantoprazole Sodium (Protonix) 40 mg DAILY PO Last administered on 06/05/17 10 :20; Start 04/23/17 at 09:00 Sodium Chloride (NS Flush) 2 ml UNSCH PRN IV FLUSH FLUSH AFTER USING IV ACCESS ; Start 04/22/17 at 13:45; Stop 05/01/17 at 11:22; Status DC Sodium Chloride (NS Flush) 2 ml BID IV FLUSH Last administered on 05/01/17 09: 41; Start 04/22/17 at 21:00; Stop 05/01/17 at 11:22; Status DC Acetaminophen (Tylenol) 650 mg Q4H PRN PO TEMP > 100.4 Last administered on 21:26; Start 04/22/17 at 13:45 Ondansetron HCl (Zofran Inj) 4 mg Q6H PRN IVP NAUSEA OR VOMITING; Start at 13:45; Stop 05/01/17 at 11:22; Status DC Acetaminophen (Tylenol) 650 mg Q6H PRN PO PAIN SCALE 1 TO 2; Start 04/22/17 at 13:45 Oxycodone HCl (Roxicodone) 5 mg Q4H PRN PO PAIN SCALE 3 TO 10 Last administered on 06/04/17 21:26; Start 04/22/17 at 13:45 Naloxone HCl 0.4 mg 0.4 mg UNSCH PRN IV SEE LABEL COMMENTS; Start 04/22/17 at 13:45; Stop 05/01/17 at 11:22; Status DC Ceftriaxone Sodium/Sodium Chloride (Rocephin Inj/NS Inj) 100 ml @ 200 mls/hr ONCE ONCE IV Last administered on 04/22/17 14:08; Start 04/22/17 at 14:00; Stop 04/22/17 at 14:29; Status DC Insulin Detemir (Levemir Inj) 22 units ONCE ONCE SQ Last administered on 17:02; Start 04/22/17 at 17:00; Stop 04/22/17 at 17:01; Status DC Insulin Detemir (Levemir Inj) 22 units DAILY SQ Last administered on 04/23/17 08:24; Start 04/23/17 at 09:00; Stop 04/23/17 at 10:12; Status DC Insulin Aspart 1 1 ACHS SLIDING SCALE SQ Last administered on 04/22/17 17:03 ; Start 04/22/17 at 16:00; Stop 04/22/17 at 19:14; Status DC Ceftriaxone Sodium/Sodium Chloride (Rocephin Inj/NS Inj) 100 ml @ 200 mls/hr Q24H IV Last administered on 04/23/17 08:17; Start 04/23/17 at 09:00; Stop 04/24/17 at 08:26; Status DC Insulin Aspart (NovoLOG SUPPLEMENTAL SCALE) 1 ACHS SLIDING SCALE SQ Last administered on 06/05/17 11:17; Start 04/22/17 at 21:00 Dextrose (D50w (Vial) Inj) 50 ml UNSCH PRN IV HYPOGLYCEMIA-SEE COMMENTS; Start 04/22/17 at 19:15 Glucagon (Glucagon Inj) 1 mg UNSCH PRN OTHER HYPOGLYCEMIA-SEE COMMENTS; Start 04/22/17 at 19:15 Metformin HCl (Glucophage) 500 mg BIDPC PO Last administered on 05/03/17 08:37 ; Start 04/23/17 at 18:00; Stop 05/03/17 at 11:04; Status DC Potassium Chloride (KCl) 30 meq ONCE ONCE PO Last administered on 04/23/17 12 :19; Start 04/23/17 at 11:00; Stop 04/23/17 at 11:37; Status DC Potassium Chloride (KCl) 20 meq ONCE ONCE PO Last administered on 04/23/17 12 :20; Start 04/23/17 at 11:00; Stop 04/23/17 at 11:37; Status DC Potassium Chloride (KCl) 20 meq ONCE ONCE PO Last administered on 04/24/17 09: 41; Start 04/24/17 at 09:00; Stop 04/24/17 at 09:01; Status DC Senna/Docusate Sodium (Diane-Colace) 2 tab BID PRN PO CONSTIPATION; Start at 13:00 Polyethylene Glycol (Miralax) 17 gm DAILY PO Last administered on 06/05/17 10: 22; Start 04/24/17 at 13:00 Heparin Sodium (Porcine) (Heparin Inj) 5,000 units Q12HR SQ Last administered on 06/05/17 10:22; Start 04/25/17 at 21:00 Sodium Hypochlorite (Dakin'S 0.25% Soln) W-D DRESSING TO SCRO... DAILY TOPICAL Last administered on 06/05/17 10:23; Start 04/28/17 at 17:00 Arginine HCl (Thomas Powder) 1 pack BID G-TUBE Last administered on 06/05/17 09 :00; Start 05/01/17 at 21:00 Ondansetron HCl (Zofran Odt) 4 mg Q6H PRN PO NAUSEA OR VOMITING; Start at 11:30 Metformin HCl 1000 mg 1,000 mg BIDPC PO Last administered on 05/05/17 09:00; Start 05/03/17 at 18:00; Stop 05/06/17 at 11:18; Status DC Lactated Ringer's (Lr 1000 ml Inj) 1,000 ml @ 30 mls/hr Q24H PRN IV SEE LABEL COMMENTS; Start 05/06/17 at 02:45; Stop 05/08/17 at 22:08; Status DC Metoprolol Tartrate (Lopressor) 25 mg IN FLIGHT TECHNICIAN PRN PO SEE LABEL COMMENTS; Start 05/06/17 at 02:45; Stop 05/08/17 at 22:08; Status DC Povidone Iodine (Betadine 5% Antisepsis Kit) 1 applic IN FLIGHT TECHNICIAN PRN EACH NARE SEE LABEL COMMENTS; Start 05/06/17 at 02:45; Stop 05/08/17 at 22:08; Status DC Chlorhexidine Gluconate 3 pack 3 pack IN FLIGHT TECHNICIAN PRN TOPICAL SEE LABEL COMMENTS; Start 05/06/17 at 02:45; Stop 05/08/17 at 22:08; Status DC Ciprofloxacin/ Dextrose (Cipro 400 Mg Premix) 200 ml @ As Directed STK-MED ONCE .ROUTE Last administered on 05/06/17 11:47; Start 05/06/17 at 11:46; Stop 05/06/17 at 11:47; Status DC Bupivacaine HCl/ Epinephrine Bitart 30 ml 30 ml STK-MED ONCE .ROUTE Last administered on 05/06/17 12:05; Start 05/06/17 at 12:03; Stop 05/06/17 at 12:04 ; Status DC Ciprofloxacin/ Dextrose (Cipro 400 Mg Premix) 200 ml @ 200 mls/hr Q12H IV Last administered on 05/09/17 12:21; Start 05/06/17 at 23:00; Stop 05/09/17 at 22:59; Status DC Fentanyl Citrate (fentaNYL INJ) 100 mcg STK-MED ONCE .ROUTE ; Start 05/06/17 at 13:37; Stop 05/06/17 at 13:38; Status DC Miscellaneous Information ALL NURSING DEPARTME... UNSCH PRN .XX SEE LABEL COMMENTS; Start 05/06/17 at 13:42; Stop 05/07/17 at 13:41; Status DC Metformin HCl (Glucophage) 500 mg BIDPC PO Last administered on 05/10/17 17:35 ; Start 05/09/17 at 09:00; Stop 05/11/17 at 09:03; Status DC Metformin HCl 850 mg 850 mg BIDPC PO Last administered on 06/05/17 10:21; Start 05/11/17 at 09:15 Sodium Chloride 500 ml @ 30 mls/hr [id number] PRN IV SEE LABEL COMMENTS; Start at 06:45; Stop 05/17/17 at 06:44; Status DC Ciprofloxacin/ Dextrose (Cipro 400 Mg Premix) 200 ml @ As Directed STK-MED ONCE .ROUTE Last administered on 05/14/17 19:05; Start 05/14/17 at 19:04; Stop 05/14/17 at 19:05; Status DC Povidone Iodine (Betadine 10% Oint) 30 applic STK-MED ONCE .ROUTE ; Start at 19:25; Stop 05/14/17 at 19:26; Status DC Fentanyl Citrate (fentaNYL INJ) 250 mcg STK-MED ONCE .ROUTE ; Start 05/14/17 at 19:58; Stop 05/14/17 at 19:59; Status DC Miscellaneous Information ALL NURSING DEPARTME... UNSCH PRN .XX SEE LABEL COMMENTS; Start 05/14/17 at 19:50; Stop 05/15/17 at 19:49; Status DC Povidone Iodine (Betadine 10% Oint) 1 applic DAILY TOPICAL Last administered on 06/04/17 08:30; Start 05/16/17 at 09:00 Propofol (Diprivan 200 Mg/20 ml Inj) 200 mg STK-MED ONCE IV ; Start 05/06/17 at 14:42; Stop 05/20/17 at 14:42; Status DC Ondansetron HCl 4 mg 4 mg STK-MED ONCE IV PUSH ; Start 05/06/17 at 14:42; Stop 05/20/17 at 14:42; Status DC Sodium Chloride 500 ml @ 50 mls/hr Q10H ONCE IV ; Start 05/22/17 at 09:00; Stop 05/22/17 at 18:59; Status DC Sodium Chloride (NS 1000 ml Inj) 1,000 ml @ 60 mls/hr [id number] IV Last administered on 05/27/17 15:00; Start 05/23/17 at 11:00; Stop 05/28/17 at 09:08; Status DC Ciprofloxacin 500 mg 500 mg Q12HR PO Last administered on 06/02/17 08:05; Start 05/28/17 at 21:00; Stop 06/02/17 at 20:59; Status DC Lactated Ringer's 1,000 ml @ 30 mls/hr Q24H PRN IV SEE LABEL COMMENTS; Start at 18:45; Stop 05/29/17 at 16:25; Status DC Sodium Chloride (NS 500 ml Inj) 500 ml @ 30 mls/hr [id number] PRN IV SEE LABEL COMMENTS; Start 05/28/17 at 18:45; Stop 05/29/17 at 16:25; Status DC Metoprolol Tartrate (Lopressor) 25 mg IN FLIGHT TECHNICIAN PRN PO SEE LABEL COMMENTS; Start 05/28/17 at 18:45; Stop 05/29/17 at 16:25; Status DC Povidone Iodine (Betadine 5% Antisepsis Kit) 1 applic IN FLIGHT TECHNICIAN PRN EACH NARE SEE LABEL COMMENTS; Start 05/28/17 at 18:45; Stop 05/29/17 at 16:25; Status DC Chlorhexidine Gluconate (Chlorhexidine 2% Cloth) 3 pack IN FLIGHT TECHNICIAN PRN TOPICAL SEE LABEL COMMENTS; Start 05/28/17 at 18:45; Stop 05/29/17 at 16:25; Status DC Insulin Human Regular (NovoLIN R INJ) See Protocol Table ... IN FLIGHT TECHNICIAN PRN SQ SEE PROTOCOL TABLE; Start 05/28/17 at 18:45; Stop 05/29/17 at 16:25; Status DC Bacitracin (Baciguent Oint) 15 applic STK-MED ONCE .ROUTE ; Start 05/29/17 at 11: 20; Stop 05/29/17 at 11:21; Status DC Silver Sulfadiazine 1 applic 1 applic ONCE ONCE TOPICAL Last administered on 13:30; Start 05/29/17 at 13:30; Stop 05/29/17 at 13:31; Status DC Ciprofloxacin/ Dextrose (Cipro 400 Mg Premix) 200 ml @ As Directed STK-MED ONCE .ROUTE ; Start 05/29/17 at 13:21; Stop 05/29/17 at 13:22; Status DC Famotidine (Pepcid Inj) 20 mg STK-MED ONCE .ROUTE ; Start 05/29/17 at 13:25; Stop 05/29/17 at 13:26; Status DC Dexamethasone Sodium Phosphate (Decadron Inj) 4 mg STK-MED ONCE .ROUTE ; Start 05/29/17 at 13:25; Stop 05/29/17 at 13:26; Status DC Fentanyl Citrate (fentaNYL INJ) 250 mcg STK-MED ONCE .ROUTE ; Start 05/29/17 at 13:25; Stop 05/29/17 at 13:26; Status DC Miscellaneous Information ALL NURSING DEPARTME... UNSCH PRN .XX SEE LABEL COMMENTS; Start 05/29/17 at 15:30; Stop 05/30/17 at 15:29; Status DC Nystatin (Mycostatin Powder) 1 applic Q12HR TOPICAL Last administered on t 10:23; Start 06/02/17 at 21:00 Propofol (Diprivan 200 Mg/20 ml Inj) 200 mg STK-MED ONCE IV ; Start 05/14/17 at 12:00; Stop 06/04/17 at 11:28; Status DC Phenylephrine HCl (Neosynephrine/ NS 1000 Mcg/10ml Syr) 1,000 mcg STK-MED ONCE IV ; Start 05/14/17 at 12:00; Stop 06/04/17 at 11:28; Status DC Ondansetron HCl (Zofran Inj) 4 mg STK-MED ONCE IV PUSH ; Start 05/14/17 at 12:00 ; Stop 06/04/17 at 11:28; Status DC Date of Insertion: April 22, 2017 A/P Assessment and Plan A/P - Necrotizing fasciitis/ Tony's Gangrene Treated for during recent hospitalization. S/p excision and debridement with washout of necrotizing fasciitis of the perineum, scrotum, and bilateral groin region. He had bacteremia and multiple organisms growing from the wound. He completed a course of antibiotics per ID. 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 05/14/17 Irrigation and excisional debridement of wound of scrotum and closure of wound with local advancement flap. 05/29/17 Staged reconstruction of scrotal wound with flap advancement and wound closure. management per plastic surgery- -recurrent fever- will check blood and urine cultures- check CXR and monitor temps. - Inability to care for self The patient [facility] and did not have running water. He had a hard time taking care of himself and was brought in to the hospital by police. Case management following continue PT/OT Supportive care. 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 The patient's ostomy bag exploded prior to arrival in the emergency department and reports indicate that he was covered in feces. continue ostomy care. Ostomy nurse consult requested. To follow-up with Dr. Jansen regarding reversal when wound is completely healed - Diabetes mellitus. A1c 5.8 Continue metformin 850 mg twice daily and monitor sliding scale insulin with Accu-Cheks. 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 wound care nurse following. Prophylaxis: SCDs and early ambulation. Continue subcutaneous heparin Discharge Planning dc to SNF when cleared by plastic surgery. Madina Brice MD Jun 05, 2017 12:10
[2017-06-05] MEDS: ACETAMINOPHEN 325 MG TAB PO PRN ×2 (12:31→23:20)
[2017-06-05 14:29] LABS: BACTERIA, URINE FEW /hpf; BLOOD, URINE SMALL (NEG); GLUCOSE,URINE NEG (NEG); KETONE, URINE NEG (NEG); NITRITE,URINE NEG (NEG); PH, URINE 5.5 (5.0-8.5); SQUAMOUS EPITHELIAL CELL URINE <1 /hpf (0-5); URINE COLOR YELLOW (YELLW/STRAW)
[2017-06-05 14:32] LABS: COMMENT (UR) CATH-CULTURE IND; CULTURE IF INDICATED CATH CULTURE IND
[2017-06-05 16:00] VITALS: BP 128/68; PULSE 96; RESP 16; TEMP 98.2; O2SAT 95
--- NOTE | 2017-06-05 16:01 | PD.PLAS.PN ---
Subjective Remarks Patient is 7 days post staged closure of scrotal wound with local advancement flap. He has no acute complaints. Objective Vital Signs Date Time Temp Pulse Resp B/P Pulse Ox O2 Delivery O2 Flow Rate FiO2 06/05/17 12:00 100.8 94 17 125/66 96 06/05/17 08:00 97.8 76 16 126/63 92 06/05/17 00:00 98.8 81 17 118/60 96 06/04/17 20:00 101.8 98 17 123/62 95 06/04/17 16:00 100.5 96 16 146/67 96 I/O 06/04/17 06/04/17 06/04/17 06/05/17 06/05/17 06/05/17 07:00 15:00 23:00 07:00 15:00 23:00 Intake Total 240 ml 400 ml 240 ml 240 ml 870 ml Output Total 570 ml 1000 ml 1500 ml 2040 ml 501 ml Balance -330 ml -600 ml -1260 ml -1800 ml 369 ml Intake Oral 240 ml 400 ml 240 ml 240 ml 870 ml IV Total 0 ml 0 ml Output Urine Total 550 ml 1000 ml 1500 ml 1400 ml 500 ml Stool Total 600 ml 1 ml Drainage Total 20 ml 40 ml # Bowel Movements 2 Laboratory Tests Test 06/05/17 06/05/17 06:11 14:05 White Blood Count 10.3 Red Blood Count 4.54 Hemoglobin 13.2 Hematocrit 40.3 Mean Corpuscular Volume 88.7 Mean Corpuscular Hemoglobin 29.1 Mean Corpuscular Hemoglobin 32.8 Concent Red Cell Distribution Width 14.6 Platelet Count 113 Mean Platelet Volume 8.6 Neutrophils (%) (Auto) 67.6 Lymphocytes (%) (Auto) 13.6 Monocytes (%) (Auto) 17.7 Eosinophils (%) (Auto) 0.5 Basophils (%) (Auto) 0.6 Neutrophils # (Auto) 7.0 Lymphocytes # (Auto) 1.4 Monocytes # (Auto) 1.8 Eosinophils # (Auto) 0.1 Basophils # (Auto) 0.1 CBC Comment DIFF FINAL Differential Comment Hematology Comments Sodium Level 135 Potassium Level 4.2 Chloride Level 99 Carbon Dioxide Level 25.8 Anion Gap 10 Blood Urea Nitrogen 46 Creatinine 0.85 Estimat Glomerular Filtration 90 Rate Random Glucose 189 Calcium Level 9.1 Urine Color YELLOW Urine Turbidity HAZY Urine pH 5.5 Urine Specific [place] 1.017 Urine Protein TRACE Urine Glucose (UA) NEG Urine Ketones NEG Urine Occult Blood SMALL Urine Nitrite NEG Urine Bilirubin NEG Urine Urobilinogen LESS THAN 2.0 Urine Leukocyte Esterase LARGE Urine RBC 10 Urine WBC Urine WBC Clumps FEW Urine Squamous Epithelial <1 Cells Urine Bacteria FEW Microscopic Urinalysis Comment CATH-CULTURE IND Date/Time Procedure Status Source Growth 06/05/17 14:05 Urine Culture Received Urine Catheterized Urine Pending Result Diagram: 06/05/17 0611 06/05/17 06 Exam Findings Patient is resting comfortably in bed. He is awake and alert. Wound is healing well. There is no erythema or cellulitis. Sutures are in place. There is no purulence. Assessment and Plan Diagnosis: (1) Open wound of scrotum Assessment and Plan Drain is removed. Wound is dressed with Dakin's soaked gauze. Will resume order for BID sitz baths in a solution of betadine and water. Dress wound with betadine wet to dry dressing and continue with nystatin powder application. Discussed with RN. The exam, history, and the medical decision-making described in the above note were completed with the assistance of the mid-level provider. I reviewed and agree with the findings presented. I attest that I had a [id number] encounter with the patient on the same day, and personally performed and documented my assessment and findings in the medical record. Brittney Tobin M.D. Vianney Baum Jun 05, 2017 16:01
--- NOTE | 2017-06-05 17:01 | RADRPT ---
EXAM DATE/TIME: 06/05/2017 16:39 [facility] COMPARISON: CHEST SINGLE AP, April 22, 2017, 13:57. INDICATIONS : Fever MEDICAL HISTORY : Diabetes mellitus type II. afib, neuropathy SURGICAL HISTORY : Colostomy. ENCOUNTER: Subsequent ACUITY: 1 month PAIN SCORE: 0/10 LOCATION: chest FINDINGS: A single view of the chest demonstrates the lungs to be symmetrically aerated without evidence of mas s, infiltrate or effusion. The cardiomediastinal contours are unremarkable. Osseous structures are intact. CONCLUSION: 1. No acute cardiopulmonary findings. Jayme Newell MD on June 05, 2017 at 16:59 Board Certified Radiologist. This report was verified electronically.
[2017-06-05] MEDS: cefTRIAXone INJ 1,000 MG in SODIUM CHLORIDE 0.9% INJ 100 ML IV SCH (17:27)
[2017-06-05 20:00] VITALS: BP 128/62; PULSE 99; RESP 26; TEMP 100.5; O2SAT 94
[2017-06-06] VITALS: BP 131/60; PULSE 89; RESP 24; TEMP 100.1; O2SAT 95
[2017-06-06 04:00] VITALS: TEMP 96.3
[2017-06-06] MEDS: INSULIN ASPART SUPPLEMENTAL SCALE SQ SCH ×4 (06:41→21:11)
[2017-06-06 08:00] VITALS: BP 108/61; PULSE 68; RESP 17; TEMP 97.7; O2SAT 95
[2017-06-06] MEDS: LIPASE/PROTEASE/AMYLASE (24,000/76,000/120,000) CAP PO SCH ×3 (08:55→16:50)
[2017-06-06] MEDS: PANTOPRAZOLE SOD 40 MG DELAYED RELEASE TAB PO SCH (08:55)
[2017-06-06] MEDS: metFORMIN HCL 850 MG TAB PO SCH ×2 (08:55→16:50)
[2017-06-06] MEDS: POLYETHYLENE GLYCOL 17 GM PKG PO SCH (08:55)
[2017-06-06] MEDS: JUVEN POWDER 1 PACK G-TUBE SCH ×2 (08:56→21:00)
[2017-06-06] MEDS: METOPROLOL TARTRATE 25 MG TAB PO SCH ×3 (08:56→21:07)
[2017-06-06] MEDS: HEPARIN SODIUM - SQ 10,000 UNITS/ML VIAL SQ SCH ×2 (08:56→21:07)
[2017-06-06] MEDS: SODIUM HYPOCHLORITE 0.25% 500 ML BTL TOPICAL SCH (08:57)
[2017-06-06] MEDS: POVIDONE IODINE 10% OINT 30 GM TUBE TOPICAL SCH (08:58)
[2017-06-06] MEDS: NYSTATIN 100,000 U/GM PWD 15 GM BTL TOPICAL SCH ×2 (08:58→21:12)
--- NOTE | 2017-06-06 11:03 | HHI.PR ---
Subjective Remarks resting comfortably with no distress. no sob or cough. temps overall better- Tmax 100.5. no new complaints. Objective Vitals Vital Signs Date Time Temp Pulse Resp B/P Pulse Ox O2 Delivery O2 Flow Rate FiO2 06/06/17 08:00 97.7 68 17 108/61 95 06/06/17 04:00 96.3 06/06/17 00:00 100.1 89 24 131/60 95 06/05/17 20:00 100.5 99 26 128/62 94 06/05/17 16:00 98.2 96 16 128/68 95 06/05/17 12:00 100.8 94 17 125/66 96 I/O 06/05/17 06/05/17 06/05/17 06/06/17 06/06/17 06/06/17 07:00 15:00 23:00 07:00 15:00 23:00 Intake Total 240 ml 870 ml 320 ml 240 ml Output Total 2040 ml 506 ml 375 ml 1050 ml Balance -1800 ml 364 ml -55 ml -810 ml Intake Oral 240 ml 870 ml 320 ml 240 ml IV Total 0 ml Output Urine Total 1400 ml 500 ml 375 ml 950 ml Stool Total 600 ml 1 ml 0 ml 100 ml Drainage Total 40 ml 5 ml Result Diagram: 06/05/17 0611 06/05/17 0611 Imaging Last Impressions Chest X-Ray 06/05/17 0000 Signed Impressions: Service Date/Time: May 16:39 - CONCLUSION: 1. No acute cardiopulmonary findings. Jayme Newell MD Objective Remarks GENERAL: This is a well-nourished, well-developed patient, in no apparent distress. CARDIOVASCULAR: Regular rate and regular rhythm without murmurs, gallops, or rubs. RESPIRATORY: Clear to auscultation. Breath sounds equal bilaterally. No wheezes , rales, or rhonchi. GASTROINTESTINAL: Abdomen soft, non-tender, nondistended. Normal, active bowel sounds- colostomy in place. MUSCULOSKELETAL: Extremities without clubbing, cyanosis, or edema. NEURO: Alert & Oriented x4 to person, place, time, situation. Moves all ext x4 Procedures 05/06/17 OPERATION: 1. Excisional debridement of skin, subcutaneous tissue of open scrotal wound. 2. Reconstruction of scrotal wound with local advancement flap. 3. Closure of open scrotal wound with allograft, 7 x 10 cm. 05/14/17 Irrigation and excisional debridement of wound of scrotum and closure of wound with local advancement flap. 05/29/17 Staged reconstruction of scrotal wound with flap advancement and wound closure. Medications and IVs Current Medications Sodium Chloride (NS 1000 ml Inj) 1,000 ml @ 1,000 mls/hr Q1H IV Last administered on 04/22/17 12:24; Start 04/22/17 at 11:51; Stop 04/22/17 at 12:50 ; Status DC Sodium Chloride (NS Flush) 2 ml UNSCH PRN IV FLUSH FLUSH AFTER USING IV ACCESS ; Start 04/22/17 at 12:00; Stop 05/01/17 at 11:22; Status DC Insulin Human Regular (NovoLIN R INJ) 4 units ONCE ONCE SQ Last administered on 04/22/17 13:23; Start 04/22/17 at 13:00; Stop 04/22/17 at 13:01; Status DC Potassium Chloride (KCl) 30 meq ONCE ONCE PO Last administered on 04/22/17 13 :24; Start 04/22/17 at 13:00; Stop 04/22/17 at 13:01; Status DC Insulin Detemir (Levemir Inj) 22 units DAILY SQ ; Start 04/22/17 at 14:00; Stop 04/22/17 at 15:23; Status DC Metoprolol Tartrate (Lopressor) 25 mg Q12HR PO Last administered on 06/05/17 21:46; Start 04/22/17 at 21:00 Amylase/Lipase/ Protease (Creon 24-76-120) 2 cap TID PO Last administered on 08:55; Start 04/22/17 at 18:00 Pantoprazole Sodium (Protonix) 40 mg DAILY PO Last administered on 06/06/17 08 :55; Start 04/23/17 at 09:00 Sodium Chloride (NS Flush) 2 ml UNSCH PRN IV FLUSH FLUSH AFTER USING IV ACCESS ; Start 04/22/17 at 13:45; Stop 05/01/17 at 11:22; Status DC Sodium Chloride (NS Flush) 2 ml BID IV FLUSH Last administered on 05/01/17 09: 41; Start 04/22/17 at 21:00; Stop 05/01/17 at 11:22; Status DC Acetaminophen (Tylenol) 650 mg Q4H PRN PO TEMP > 100.4 Last administered on 23:20; Start 04/22/17 at 13:45 Ondansetron HCl (Zofran Inj) 4 mg Q6H PRN IVP NAUSEA OR VOMITING; Start at 13:45; Stop 05/01/17 at 11:22; Status DC Acetaminophen (Tylenol) 650 mg Q6H PRN PO PAIN SCALE 1 TO 2; Start 04/22/17 at 13:45 Oxycodone HCl (Roxicodone) 5 mg Q4H PRN PO PAIN SCALE 3 TO 10 Last administered on 06/04/17 21:26; Start 04/22/17 at 13:45 Naloxone HCl 0.4 mg 0.4 mg UNSCH PRN IV SEE LABEL COMMENTS; Start 04/22/17 at 13:45; Stop 05/01/17 at 11:22; Status DC Ceftriaxone Sodium/Sodium Chloride (Rocephin Inj/NS Inj) 100 ml @ 200 mls/hr ONCE ONCE IV Last administered on 04/22/17 14:08; Start 04/22/17 at 14:00; Stop 04/22/17 at 14:29; Status DC Insulin Detemir (Levemir Inj) 22 units ONCE ONCE SQ Last administered on 17:02; Start 04/22/17 at 17:00; Stop 04/22/17 at 17:01; Status DC Insulin Detemir (Levemir Inj) 22 units DAILY SQ Last administered on 04/23/17 08:24; Start 04/23/17 at 09:00; Stop 04/23/17 at 10:12; Status DC Insulin Aspart 1 1 ACHS SLIDING SCALE SQ Last administered on 04/22/17 17:03 ; Start 04/22/17 at 16:00; Stop 04/22/17 at 19:14; Status DC Ceftriaxone Sodium/Sodium Chloride (Rocephin Inj/NS Inj) 100 ml @ 200 mls/hr Q24H IV Last administered on 04/23/17 08:17; Start 04/23/17 at 09:00; Stop 04/24/17 at 08:26; Status DC Insulin Aspart (NovoLOG SUPPLEMENTAL SCALE) 1 ACHS SLIDING SCALE SQ Last administered on 06/06/17 06:41; Start 04/22/17 at 21:00 Dextrose (D50w (Vial) Inj) 50 ml UNSCH PRN IV HYPOGLYCEMIA-SEE COMMENTS; Start 04/22/17 at 19:15 Glucagon (Glucagon Inj) 1 mg UNSCH PRN OTHER HYPOGLYCEMIA-SEE COMMENTS; Start 04/22/17 at 19:15 Metformin HCl (Glucophage) 500 mg BIDPC PO Last administered on 05/03/17 08:37 ; Start 04/23/17 at 18:00; Stop 05/03/17 at 11:04; Status DC Potassium Chloride (KCl) 30 meq ONCE ONCE PO Last administered on 04/23/17 12 :19; Start 04/23/17 at 11:00; Stop 04/23/17 at 11:37; Status DC Potassium Chloride (KCl) 20 meq ONCE ONCE PO Last administered on 04/23/17 12 :20; Start 04/23/17 at 11:00; Stop 04/23/17 at 11:37; Status DC Potassium Chloride (KCl) 20 meq ONCE ONCE PO Last administered on 04/24/17 09: 41; Start 04/24/17 at 09:00; Stop 04/24/17 at 09:01; Status DC Senna/Docusate Sodium (Diane-Colace) 2 tab BID PRN PO CONSTIPATION; Start at 13:00 Polyethylene Glycol (Miralax) 17 gm DAILY PO Last administered on 06/06/17 08: 55; Start 04/24/17 at 13:00 Heparin Sodium (Porcine) (Heparin Inj) 5,000 units Q12HR SQ Last administered on 06/06/17 08:56; Start 04/25/17 at 21:00 Sodium Hypochlorite (Dakin'S 0.25% Soln) W-D DRESSING TO SCRO... DAILY TOPICAL Last administered on 06/05/17 10:23; Start 04/28/17 at 17:00 Arginine HCl (Thomas Powder) 1 pack BID G-TUBE Last administered on 06/06/17 08 :56; Start 05/01/17 at 21:00 Ondansetron HCl (Zofran Odt) 4 mg Q6H PRN PO NAUSEA OR VOMITING; Start at 11:30 Metformin HCl 1000 mg 1,000 mg BIDPC PO Last administered on 05/05/17 09:00; Start 05/03/17 at 18:00; Stop 05/06/17 at 11:18; Status DC Lactated Ringer's (Lr 1000 ml Inj) 1,000 ml @ 30 mls/hr Q24H PRN IV SEE LABEL COMMENTS; Start 05/06/17 at 02:45; Stop 05/08/17 at 22:08; Status DC Metoprolol Tartrate (Lopressor) 25 mg SHOT CORE DRILL OPERATOR PRN PO SEE LABEL COMMENTS; Start 05/06/17 at 02:45; Stop 05/08/17 at 22:08; Status DC Povidone Iodine (Betadine 5% Antisepsis Kit) 1 applic SHOT CORE DRILL OPERATOR PRN EACH NARE SEE LABEL COMMENTS; Start 05/06/17 at 02:45; Stop 05/08/17 at 22:08; Status DC Chlorhexidine Gluconate 3 pack 3 pack SHOT CORE DRILL OPERATOR PRN TOPICAL SEE LABEL COMMENTS; Start 05/06/17 at 02:45; Stop 05/08/17 at 22:08; Status DC Ciprofloxacin/ Dextrose (Cipro 400 Mg Premix) 200 ml @ As Directed STK-MED ONCE .ROUTE Last administered on 05/06/17 11:47; Start 05/06/17 at 11:46; Stop 05/06/17 at 11:47; Status DC Bupivacaine HCl/ Epinephrine Bitart 30 ml 30 ml STK-MED ONCE .ROUTE Last administered on 05/06/17 12:05; Start 05/06/17 at 12:03; Stop 05/06/17 at 12:04 ; Status DC Ciprofloxacin/ Dextrose (Cipro 400 Mg Premix) 200 ml @ 200 mls/hr Q12H IV Last administered on 05/09/17 12:21; Start 05/06/17 at 23:00; Stop 05/09/17 at 22:59; Status DC Fentanyl Citrate (fentaNYL INJ) 100 mcg STK-MED ONCE .ROUTE ; Start 05/06/17 at 13:37; Stop 05/06/17 at 13:38; Status DC Miscellaneous Information ALL NURSING DEPARTME... UNSCH PRN .XX SEE LABEL COMMENTS; Start 05/06/17 at 13:42; Stop 05/07/17 at 13:41; Status DC Metformin HCl (Glucophage) 500 mg BIDPC PO Last administered on 05/10/17 17:35 ; Start 05/09/17 at 09:00; Stop 05/11/17 at 09:03; Status DC Metformin HCl 850 mg 850 mg BIDPC PO Last administered on 06/06/17 08:55; Start 05/11/17 at 09:15 Sodium Chloride 500 ml @ 30 mls/hr [id number] PRN IV SEE LABEL COMMENTS; Start at 06:45; Stop 05/17/17 at 06:44; Status DC Ciprofloxacin/ Dextrose (Cipro 400 Mg Premix) 200 ml @ As Directed STK-MED ONCE .ROUTE Last administered on 05/14/17 19:05; Start 05/14/17 at 19:04; Stop 05/14/17 at 19:05; Status DC Povidone Iodine (Betadine 10% Oint) 30 applic STK-MED ONCE .ROUTE ; Start at 19:25; Stop 05/14/17 at 19:26; Status DC Fentanyl Citrate (fentaNYL INJ) 250 mcg STK-MED ONCE .ROUTE ; Start 05/14/17 at 19:58; Stop 05/14/17 at 19:59; Status DC Miscellaneous Information ALL NURSING DEPARTME... UNSCH PRN .XX SEE LABEL COMMENTS; Start 05/14/17 at 19:50; Stop 05/15/17 at 19:49; Status DC Povidone Iodine (Betadine 10% Oint) 1 applic DAILY TOPICAL Last administered on 06/04/17 08:30; Start 05/16/17 at 09:00 Propofol (Diprivan 200 Mg/20 ml Inj) 200 mg STK-MED ONCE IV ; Start 05/06/17 at 14:42; Stop 05/20/17 at 14:42; Status DC Ondansetron HCl 4 mg 4 mg STK-MED ONCE IV PUSH ; Start 05/06/17 at 14:42; Stop 05/20/17 at 14:42; Status DC Sodium Chloride 500 ml @ 50 mls/hr Q10H ONCE IV ; Start 05/22/17 at 09:00; Stop 05/22/17 at 18:59; Status DC Sodium Chloride (NS 1000 ml Inj) 1,000 ml @ 60 mls/hr [id number] IV Last administered on 05/27/17 15:00; Start 05/23/17 at 11:00; Stop 05/28/17 at 09:08; Status DC Ciprofloxacin 500 mg 500 mg Q12HR PO Last administered on 06/02/17 08:05; Start 05/28/17 at 21:00; Stop 06/02/17 at 20:59; Status DC Lactated Ringer's 1,000 ml @ 30 mls/hr Q24H PRN IV SEE LABEL COMMENTS; Start at 18:45; Stop 05/29/17 at 16:25; Status DC Sodium Chloride (NS 500 ml Inj) 500 ml @ 30 mls/hr [id number] PRN IV SEE LABEL COMMENTS; Start 05/28/17 at 18:45; Stop 05/29/17 at 16:25; Status DC Metoprolol Tartrate (Lopressor) 25 mg SHOT CORE DRILL OPERATOR PRN PO SEE LABEL COMMENTS; Start 05/28/17 at 18:45; Stop 05/29/17 at 16:25; Status DC Povidone Iodine (Betadine 5% Antisepsis Kit) 1 applic SHOT CORE DRILL OPERATOR PRN EACH NARE SEE LABEL COMMENTS; Start 05/28/17 at 18:45; Stop 05/29/17 at 16:25; Status DC Chlorhexidine Gluconate (Chlorhexidine 2% Cloth) 3 pack SHOT CORE DRILL OPERATOR PRN TOPICAL SEE LABEL COMMENTS; Start 05/28/17 at 18:45; Stop 05/29/17 at 16:25; Status DC Insulin Human Regular (NovoLIN R INJ) See Protocol Table ... SHOT CORE DRILL OPERATOR PRN SQ SEE PROTOCOL TABLE; Start 05/28/17 at 18:45; Stop 05/29/17 at 16:25; Status DC Bacitracin (Baciguent Oint) 15 applic STK-MED ONCE .ROUTE ; Start 05/29/17 at 11: 20; Stop 05/29/17 at 11:21; Status DC Silver Sulfadiazine 1 applic 1 applic ONCE ONCE TOPICAL Last administered on 13:30; Start 05/29/17 at 13:30; Stop 05/29/17 at 13:31; Status DC Ciprofloxacin/ Dextrose (Cipro 400 Mg Premix) 200 ml @ As Directed STK-MED ONCE .ROUTE ; Start 05/29/17 at 13:21; Stop 05/29/17 at 13:22; Status DC Famotidine (Pepcid Inj) 20 mg STK-MED ONCE .ROUTE ; Start 05/29/17 at 13:25; Stop 05/29/17 at 13:26; Status DC Dexamethasone Sodium Phosphate (Decadron Inj) 4 mg STK-MED ONCE .ROUTE ; Start 05/29/17 at 13:25; Stop 05/29/17 at 13:26; Status DC Fentanyl Citrate (fentaNYL INJ) 250 mcg STK-MED ONCE .ROUTE ; Start 05/29/17 at 13:25; Stop 05/29/17 at 13:26; Status DC Miscellaneous Information ALL NURSING DEPARTME... UNSCH PRN .XX SEE LABEL COMMENTS; Start 05/29/17 at 15:30; Stop 05/30/17 at 15:29; Status DC Nystatin (Mycostatin Powder) 1 applic Q12HR TOPICAL Last administered on 08:58; Start 06/02/17 at 21:00 Propofol (Diprivan 200 Mg/20 ml Inj) 200 mg STK-MED ONCE IV ; Start 05/14/17 at 12:00; Stop 06/04/17 at 11:28; Status DC Phenylephrine HCl (Neosynephrine/ NS 1000 Mcg/10ml Syr) 1,000 mcg STK-MED ONCE IV ; Start 05/14/17 at 12:00; Stop 06/04/17 at 11:28; Status DC Ondansetron HCl 4 mg 4 mg STK-MED ONCE IV PUSH ; Start 05/14/17 at 12:00; Stop 06/04/17 at 11:28; Status DC Ceftriaxone Sodium/Sodium Chloride (Rocephin Inj/NS Inj) 100 ml @ 200 mls/hr Q24H IV Last administered on 06/05/17 17:27; Start 06/05/17 at 17:00 Date of Insertion: April 22, 2017 A/P Assessment and Plan A/P - Necrotizing fasciitis/ Tony's Gangrene Treated for during recent hospitalization. S/p excision and debridement with washout of necrotizing fasciitis of the perineum, scrotum, and bilateral groin region. He had bacteremia and multiple organisms growing from the wound. He completed a course of antibiotics per ID. 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 05/14/17 Irrigation and excisional debridement of wound of scrotum and closure of wound with local advancement flap. 05/29/17 Staged reconstruction of scrotal wound with flap advancement and wound closure. management per plastic surgery- -recurrent fever due to UTI- lainez has been discontinued- continue IV antibiotic -follow the cultures. CXR with no acute disease. - Inability to care for self The patient was discharged home from the assisted facility and did not have running water. He had a hard time taking care of himself and was brought in to the hospital by police. Case management following continue PT/OT Supportive care. 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 The patient's ostomy bag exploded prior to arrival in the emergency department and reports indicate that he was covered in feces. continue ostomy care. Ostomy nurse consult requested. To follow-up with Dr. Jansen regarding reversal when wound is completely healed - Diabetes mellitus. A1c 5.8 Continue metformin 850 mg twice daily and monitor- will add levemir. sliding scale insulin with Accu-Cheks. 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 wound care nurse following. Prophylaxis: SCDs and early ambulation. Continue subcutaneous heparin Discharge Planning dc to SNF when cleared by plastic surgery and if remains afebrile. Madina Brice MD Jun 06, 2017 11:02
[2017-06-06 12:00] VITALS: BP 114/65; PULSE 77; RESP 19; TEMP 98.3; O2SAT 95
[2017-06-06 16:00] VITALS: BP 137/68; PULSE 84; RESP 19; TEMP 98.7; O2SAT 98
[2017-06-06] MEDS: cefTRIAXone INJ 1,000 MG in SODIUM CHLORIDE 0.9% INJ 100 ML IV SCH (16:50)
[2017-06-06 20:00] VITALS: BP 118/62; PULSE 82; RESP 20; TEMP 98.6; O2SAT 97
[2017-06-06] MEDS ORDERED: INSULIN DETEMIR 100 UNITS/ML VIAL SQ SCH (21:00)
[2017-06-07] VITALS: BP_SYST 112; BP_SYST 117; BP_DIAS 59; BP_DIAS 63; PULSE 104; PULSE 78; RESP 19; RESP 21; TEMP 97.3; TEMP 97.9; O2SAT 97
[2017-06-07] MEDS: INSULIN ASPART SUPPLEMENTAL SCALE SQ SCH ×4 (05:53→22:11)
[2017-06-07 08:00] VITALS: BP 108/61; PULSE 75; RESP 19; TEMP 97; O2SAT 100
[2017-06-07] MEDS: METOPROLOL TARTRATE 25 MG TAB PO SCH ×2 (08:47→22:05)
[2017-06-07] MEDS: POLYETHYLENE GLYCOL 17 GM PKG PO SCH (08:47)
[2017-06-07] MEDS: LIPASE/PROTEASE/AMYLASE (24,000/76,000/120,000) CAP PO SCH ×3 (08:47→16:17)
[2017-06-07] MEDS: PANTOPRAZOLE SOD 40 MG DELAYED RELEASE TAB PO SCH (08:48)
[2017-06-07] MEDS: HEPARIN SODIUM - SQ 10,000 UNITS/ML VIAL SQ SCH ×2 (08:48→22:06)
[2017-06-07] MEDS: metFORMIN HCL 850 MG TAB PO SCH ×2 (08:48→16:17)
[2017-06-07] MEDS: POVIDONE IODINE 10% OINT 30 GM TUBE TOPICAL SCH (08:54)
[2017-06-07] MEDS: SODIUM HYPOCHLORITE 0.25% 500 ML BTL TOPICAL SCH (08:54)
[2017-06-07] MEDS: NYSTATIN 100,000 U/GM PWD 15 GM BTL TOPICAL SCH ×2 (08:55→21:00)
[2017-06-07] MEDS: JUVEN POWDER 1 PACK G-TUBE SCH ×2 (09:00→21:00)
[2017-06-07 12:00] VITALS: BP 109/59; PULSE 83; RESP 19; TEMP 98; O2SAT 99
--- NOTE | 2017-06-07 12:47 | HHI.PR ---
Subjective Remarks no recurrent fever. is comfortable with no pain or new complaints. Objective Vitals Vital Signs Date Time Temp Pulse Resp B/P Pulse Ox O2 Delivery O2 Flow Rate FiO2 06/07/17 08:00 97.0 75 19 108/61 100 06/07/17 00:00 97.3 78 19 117/63 97 06/06/17 20:00 98.6 82 20 118/62 97 06/06/17 16:00 98.7 84 19 137/68 98 I/O 06/06/17 06/06/17 06/06/17 06/07/17 06/07/17 06/07/17 07:00 15:00 23:00 07:00 15:00 23:00 Intake Total 240 ml 450 ml 240 ml 240 ml 120 ml Output Total 1050 ml 976 ml 575 ml 1350 ml Balance -810 ml -526 ml -335 ml -1110 ml 120 ml Intake Oral 240 ml 450 ml 240 ml 240 ml 120 ml IV Total 0 ml Output Urine Total 950 ml 975 ml 575 ml 450 ml Stool Total 100 ml 1 ml 900 ml Result Diagram: 06/05/17 0611 06/05/17 0611 Imaging Last Impressions Chest X-Ray 06/05/17 0000 Signed Impressions: Service Date/Time: May 16:39 - CONCLUSION: 1. No acute cardiopulmonary findings. Jayme Newell MD Objective Remarks GENERAL: This is a well-nourished, well-developed patient, in no apparent distress. CARDIOVASCULAR: Regular rate and regular rhythm without murmurs, gallops, or rubs. RESPIRATORY: Clear to auscultation. Breath sounds equal bilaterally. No wheezes , rales, or rhonchi. GASTROINTESTINAL: Abdomen soft, non-tender, nondistended. Normal, active bowel sounds- colostomy in place. MUSCULOSKELETAL: Extremities without clubbing, cyanosis, or edema. NEURO: Alert & Oriented x4 to person, place, time, situation. Moves all ext x4 Procedures 05/06/17 OPERATION: 1. Excisional debridement of skin, subcutaneous tissue of open scrotal wound. 2. Reconstruction of scrotal wound with local advancement flap. 3. Closure of open scrotal wound with allograft, 7 x 10 cm. 05/14/17 Irrigation and excisional debridement of wound of scrotum and closure of wound with local advancement flap. 05/29/17 Staged reconstruction of scrotal wound with flap advancement and wound closure. Medications and IVs Current Medications Sodium Chloride (NS 1000 ml Inj) 1,000 ml @ 1,000 mls/hr Q1H IV Last administered on 04/22/17 12:24; Start 04/22/17 at 11:51; Stop 04/22/17 at 12:50 ; Status DC Sodium Chloride (NS Flush) 2 ml UNSCH PRN IV FLUSH FLUSH AFTER USING IV ACCESS ; Start 04/22/17 at 12:00; Stop 05/01/17 at 11:22; Status DC Insulin Human Regular (NovoLIN R INJ) 4 units ONCE ONCE SQ Last administered on 04/22/17 13:23; Start 04/22/17 at 13:00; Stop 04/22/17 at 13:01; Status DC Potassium Chloride (KCl) 30 meq ONCE ONCE PO Last administered on 04/22/17 13 :24; Start 04/22/17 at 13:00; Stop 04/22/17 at 13:01; Status DC Insulin Detemir (Levemir Inj) 22 units DAILY SQ ; Start 04/22/17 at 14:00; Stop 04/22/17 at 15:23; Status DC Metoprolol Tartrate (Lopressor) 25 mg Q12HR PO Last administered on 06/06/17 21:07; Start 04/22/17 at 21:00 Amylase/Lipase/ Protease (Creon 24-76-120) 2 cap TID PO Last administered on 12:07; Start 04/22/17 at 18:00 Pantoprazole Sodium (Protonix) 40 mg DAILY PO Last administered on 06/07/17 08 :48; Start 04/23/17 at 09:00 Sodium Chloride (NS Flush) 2 ml UNSCH PRN IV FLUSH FLUSH AFTER USING IV ACCESS ; Start 04/22/17 at 13:45; Stop 05/01/17 at 11:22; Status DC Sodium Chloride (NS Flush) 2 ml BID IV FLUSH Last administered on 05/01/17 09: 41; Start 04/22/17 at 21:00; Stop 05/01/17 at 11:22; Status DC Acetaminophen (Tylenol) 650 mg Q4H PRN PO TEMP > 100.4 Last administered on 23:20; Start 04/22/17 at 13:45 Ondansetron HCl (Zofran Inj) 4 mg Q6H PRN IVP NAUSEA OR VOMITING; Start at 13:45; Stop 05/01/17 at 11:22; Status DC Acetaminophen (Tylenol) 650 mg Q6H PRN PO PAIN SCALE 1 TO 2; Start 04/22/17 at 13:45 Oxycodone HCl (Roxicodone) 5 mg Q4H PRN PO PAIN SCALE 3 TO 10 Last administered on 06/04/17 21:26; Start 04/22/17 at 13:45 Naloxone HCl 0.4 mg 0.4 mg UNSCH PRN IV SEE LABEL COMMENTS; Start 04/22/17 at 13:45; Stop 05/01/17 at 11:22; Status DC Ceftriaxone Sodium/Sodium Chloride (Rocephin Inj/NS Inj) 100 ml @ 200 mls/hr ONCE ONCE IV Last administered on 04/22/17 14:08; Start 04/22/17 at 14:00; Stop 04/22/17 at 14:29; Status DC Insulin Detemir (Levemir Inj) 22 units ONCE ONCE SQ Last administered on 17:02; Start 04/22/17 at 17:00; Stop 04/22/17 at 17:01; Status DC Insulin Detemir (Levemir Inj) 22 units DAILY SQ Last administered on 04/23/17 08:24; Start 04/23/17 at 09:00; Stop 04/23/17 at 10:12; Status DC Insulin Aspart 1 1 ACHS SLIDING SCALE SQ Last administered on 04/22/17 17:03 ; Start 04/22/17 at 16:00; Stop 04/22/17 at 19:14; Status DC Ceftriaxone Sodium/Sodium Chloride (Rocephin Inj/NS Inj) 100 ml @ 200 mls/hr Q24H IV Last administered on 04/23/17 08:17; Start 04/23/17 at 09:00; Stop 04/24/17 at 08:26; Status DC Insulin Aspart (NovoLOG SUPPLEMENTAL SCALE) 1 ACHS SLIDING SCALE SQ Last administered on 06/07/17 12:11; Start 04/22/17 at 21:00 Dextrose (D50w (Vial) Inj) 50 ml UNSCH PRN IV HYPOGLYCEMIA-SEE COMMENTS; Start 04/22/17 at 19:15 Glucagon (Glucagon Inj) 1 mg UNSCH PRN OTHER HYPOGLYCEMIA-SEE COMMENTS; Start 04/22/17 at 19:15 Metformin HCl (Glucophage) 500 mg BIDPC PO Last administered on 05/03/17 08:37 ; Start 04/23/17 at 18:00; Stop 05/03/17 at 11:04; Status DC Potassium Chloride (KCl) 30 meq ONCE ONCE PO Last administered on 04/23/17 12 :19; Start 04/23/17 at 11:00; Stop 04/23/17 at 11:37; Status DC Potassium Chloride (KCl) 20 meq ONCE ONCE PO Last administered on 04/23/17 12 :20; Start 04/23/17 at 11:00; Stop 04/23/17 at 11:37; Status DC Potassium Chloride (KCl) 20 meq ONCE ONCE PO Last administered on 04/24/17 09: 41; Start 04/24/17 at 09:00; Stop 04/24/17 at 09:01; Status DC Senna/Docusate Sodium (Diane-Colace) 2 tab BID PRN PO CONSTIPATION; Start at 13:00 Polyethylene Glycol (Miralax) 17 gm DAILY PO Last administered on 06/07/17 08: 47; Start 04/24/17 at 13:00 Heparin Sodium (Porcine) (Heparin Inj) 5,000 units Q12HR SQ Last administered on 06/07/17 08:48; Start 04/25/17 at 21:00 Sodium Hypochlorite (Dakin'S 0.25% Soln) W-D DRESSING TO SCRO... DAILY TOPICAL Last administered on 06/07/17 08:54; Start 04/28/17 at 17:00 Arginine HCl (Thomas Powder) 1 pack BID G-TUBE Last administered on 06/06/17 08 :56; Start 05/01/17 at 21:00 Ondansetron HCl (Zofran Odt) 4 mg Q6H PRN PO NAUSEA OR VOMITING; Start at 11:30 Metformin HCl 1000 mg 1,000 mg BIDPC PO Last administered on 05/05/17 09:00; Start 05/03/17 at 18:00; Stop 05/06/17 at 11:18; Status DC Lactated Ringer's (Lr 1000 ml Inj) 1,000 ml @ 30 mls/hr Q24H PRN IV SEE LABEL COMMENTS; Start 05/06/17 at 02:45; Stop 05/08/17 at 22:08; Status DC Metoprolol Tartrate (Lopressor) 25 mg SENIOR [employer] RESE[employer] ASSOCIATE PRN PO SEE LABEL COMMENTS; Start 05/06/17 at 02:45; Stop 05/08/17 at 22:08; Status DC Povidone Iodine (Betadine 5% Antisepsis Kit) 1 applic S[employer] RESE[employer] ASSOCIATE PRN EACH NARE SEE LABEL COMMENTS; Start 05/06/17 at 02:45; Stop 05/08/17 at 22:08; Status DC Chlorhexidine Gluconate 3 pack 3 pack S[employer]IOR [employer] ASSOCIATE PRN TOPICAL SEE LABEL COMMENTS; Start 05/06/17 at 02:45; Stop 05/08/17 at 22:08; Status DC Ciprofloxacin/ Dextrose (Cipro 400 Mg Premix) 200 ml @ As Directed STK-MED ONCE .ROUTE Last administered on 05/06/17 11:47; Start 05/06/17 at 11:46; Stop 05/06/17 at 11:47; Status DC Bupivacaine HCl/ Epinephrine Bitart 30 ml 30 ml STK-MED ONCE .ROUTE Last administered on 05/06/17 12:05; Start 05/06/17 at 12:03; Stop 05/06/17 at 12:04 ; Status DC Ciprofloxacin/ Dextrose (Cipro 400 Mg Premix) 200 ml @ 200 mls/hr Q12H IV Last administered on 05/09/17 12:21; Start 05/06/17 at 23:00; Stop 05/09/17 at 22:59; Status DC Fentanyl Citrate (fentaNYL INJ) 100 mcg STK-MED ONCE .ROUTE ; Start 05/06/17 at 13:37; Stop 05/06/17 at 13:38; Status DC Miscellaneous Information ALL NURSING DEPARTME... UNSCH PRN .XX SEE LABEL COMMENTS; Start 05/06/17 at 13:42; Stop 05/07/17 at 13:41; Status DC Metformin HCl (Glucophage) 500 mg BIDPC PO Last administered on 05/10/17 17:35 ; Start 05/09/17 at 09:00; Stop 05/11/17 at 09:03; Status DC Metformin HCl 850 mg 850 mg BIDPC PO Last administered on 06/07/17 08:48; Start 05/11/17 at 09:15 Sodium Chloride 500 ml @ 30 mls/hr [id number] PRN IV SEE LABEL COMMENTS; Start at 06:45; Stop 05/17/17 at 06:44; Status DC Ciprofloxacin/ Dextrose (Cipro 400 Mg Premix) 200 ml @ As Directed STK-MED ONCE .ROUTE Last administered on 05/14/17 19:05; Start 05/14/17 at 19:04; Stop 05/14/17 at 19:05; Status DC Povidone Iodine (Betadine 10% Oint) 30 applic STK-MED ONCE .ROUTE ; Start at 19:25; Stop 05/14/17 at 19:26; Status DC Fentanyl Citrate (fentaNYL INJ) 250 mcg STK-MED ONCE .ROUTE ; Start 05/14/17 at 19:58; Stop 05/14/17 at 19:59; Status DC Miscellaneous Information ALL NURSING DEPARTME... UNSCH PRN .XX SEE LABEL COMMENTS; Start 05/14/17 at 19:50; Stop 05/15/17 at 19:49; Status DC Povidone Iodine (Betadine 10% Oint) 1 applic DAILY TOPICAL Last administered on 06/07/17 08:54; Start 05/16/17 at 09:00 Propofol (Diprivan 200 Mg/20 ml Inj) 200 mg STK-MED ONCE IV ; Start 05/06/17 at 14:42; Stop 05/20/17 at 14:42; Status DC Ondansetron HCl 4 mg 4 mg STK-MED ONCE IV PUSH ; Start 05/06/17 at 14:42; Stop 05/20/17 at 14:42; Status DC Sodium Chloride 500 ml @ 50 mls/hr Q10H ONCE IV ; Start 05/22/17 at 09:00; Stop 05/22/17 at 18:59; Status DC Sodium Chloride (NS 1000 ml Inj) 1,000 ml @ 60 mls/hr [id number] IV Last administered on 05/27/17 15:00; Start 05/23/17 at 11:00; Stop 05/28/17 at 09:08; Status DC Ciprofloxacin 500 mg 500 mg Q12HR PO Last administered on 06/02/17 08:05; Start 05/28/17 at 21:00; Stop 06/02/17 at 20:59; Status DC Lactated Ringer's 1,000 ml @ 30 mls/hr Q24H PRN IV SEE LABEL COMMENTS; Start at 18:45; Stop 05/29/17 at 16:25; Status DC Sodium Chloride (NS 500 ml Inj) 500 ml @ 30 mls/hr [id number] PRN IV SEE LABEL COMMENTS; Start 05/28/17 at 18:45; Stop 05/29/17 at 16:25; Status DC Metoprolol Tartrate (Lopressor) 25 mg SENIOR [employer] RESEARCH ASSOCIATE PRN PO SEE LABEL COMMENTS; Start 05/28/17 at 18:45; Stop 05/29/17 at 16:25; Status DC Povidone Iodine (Betadine 5% Antisepsis Kit) 1 applic S[employer]IOR [employer] RESEARCH ASSOCIATE PRN EACH NARE SEE LABEL COMMENTS; Start 05/28/17 at 18:45; Stop 05/29/17 at 16:25; Status DC Chlorhexidine Gluconate (Chlorhexidine 2% Cloth) 3 pack SENIOR [employer] RESEARCH ASSOCIATE PRN TOPICAL SEE LABEL COMMENTS; Start 05/28/17 at 18:45; Stop 05/29/17 at 16:25; Status DC Insulin Human Regular (NovoLIN R INJ) See Protocol Table ... SENIOR [employer] RESEARCH ASSOCIATE PRN SQ SEE PROTOCOL TABLE; Start 05/28/17 at 18:45; Stop 05/29/17 at 16:25; Status DC Bacitracin (Baciguent Oint) 15 applic STK-MED ONCE .ROUTE ; Start 05/29/17 at 11: 20; Stop 05/29/17 at 11:21; Status DC Silver Sulfadiazine 1 applic 1 applic ONCE ONCE TOPICAL Last administered on 13:30; Start 05/29/17 at 13:30; Stop 05/29/17 at 13:31; Status DC Ciprofloxacin/ Dextrose (Cipro 400 Mg Premix) 200 ml @ As Directed STK-MED ONCE .ROUTE ; Start 05/29/17 at 13:21; Stop 05/29/17 at 13:22; Status DC Famotidine (Pepcid Inj) 20 mg STK-MED ONCE .ROUTE ; Start 05/29/17 at 13:25; Stop 05/29/17 at 13:26; Status DC Dexamethasone Sodium Phosphate (Decadron Inj) 4 mg STK-MED ONCE .ROUTE ; Start 05/29/17 at 13:25; Stop 05/29/17 at 13:26; Status DC Fentanyl Citrate (fentaNYL INJ) 250 mcg STK-MED ONCE .ROUTE ; Start 05/29/17 at 13:25; Stop 05/29/17 at 13:26; Status DC Miscellaneous Information ALL NURSING DEPARTME... UNSCH PRN .XX SEE LABEL COMMENTS; Start 05/29/17 at 15:30; Stop 05/30/17 at 15:29; Status DC Nystatin (Mycostatin Powder) 1 applic Q12HR TOPICAL Last administered on 08:55; Start 06/02/17 at 21:00 Propofol (Diprivan 200 Mg/20 ml Inj) 200 mg STK-MED ONCE IV ; Start 05/14/17 at 12:00; Stop 06/04/17 at 11:28; Status DC Phenylephrine HCl (Neosynephrine/ NS 1000 Mcg/10ml Syr) 1,000 mcg STK-MED ONCE IV ; Start 05/14/17 at 12:00; Stop 06/04/17 at 11:28; Status DC Ondansetron HCl 4 mg 4 mg STK-MED ONCE IV PUSH ; Start 05/14/17 at 12:00; Stop 06/04/17 at 11:28; Status DC Ceftriaxone Sodium/Sodium Chloride (Rocephin Inj/NS Inj) 100 ml @ 200 mls/hr Q24H IV Last administered on 06/06/17 16:50; Start 06/05/17 at 17:00 Insulin Detemir (Levemir Inj) 5 units HS SQ Last administered on 06/06/17 21: 10; Start 06/06/17 at 21:00 Date of Insertion: April 22, 2017 A/P Assessment and Plan A/P - Necrotizing fasciitis/ Tony's Gangrene Treated for during recent hospitalization. S/p excision and debridement with washout of necrotizing fasciitis of the perineum, scrotum, and bilateral groin region. He had bacteremia and multiple organisms growing from the wound. He completed a course of antibiotics per ID. 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 05/14/17 Irrigation and excisional debridement of wound of scrotum and closure of wound with local advancement flap. 05/29/17 Staged reconstruction of scrotal wound with flap advancement and wound closure. management per plastic surgery- -recurrent fever due to UTI-now fever has resolved- lainez has been discontinued - UC with proteus- continue antibiotic- - Inability to care for self The patient was discharged home from the [facility] and did not have running water. He had a hard time taking care of himself and was brought in to the hospital by police. Case management following continue PT/OT Supportive care. 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 The patient's ostomy bag exploded prior to arrival in the emergency department and reports indicate that he was covered in feces. continue ostomy care. Ostomy nurse consult requested. To follow-up with Dr. Jansen regarding reversal when wound is completely healed - Diabetes mellitus. Continue metformin and levemir. sliding scale insulin with Accu-Cheks. 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 wound care nurse following. Prophylaxis: SCDs and early ambulation. Continue subcutaneous heparin Discharge Planning dc to SNF when cleared by plastic surgery and if remains afebrile. Madina Brice MD Jun 07, 2017 12:47
[2017-06-07 16:00] VITALS: BP 131/63; PULSE 56; RESP 20; TEMP 99; O2SAT 96
[2017-06-07] MEDS: cefTRIAXone INJ 1,000 MG in SODIUM CHLORIDE 0.9% INJ 100 ML IV SCH (16:16)
[2017-06-07 20:00] VITALS: BP 122/58; PULSE 78; RESP 17; TEMP 99.1; O2SAT 97
[2017-06-07] MEDS: INSULIN DETEMIR 100 UNITS/ML VIAL SQ SCH (22:12)
[2017-06-08] VITALS: BP 117/60; PULSE 71; RESP 17; TEMP 98.2; O2SAT 98
[2017-06-08] MEDS: INSULIN ASPART SUPPLEMENTAL SCALE SQ SCH ×4 (06:31→21:38)
[2017-06-08 08:00] VITALS: BP 110/59; PULSE 68; RESP 18; TEMP 96.9; O2SAT 97
[2017-06-08] MEDS: POLYETHYLENE GLYCOL 17 GM PKG PO SCH (08:30)
[2017-06-08] MEDS: LIPASE/PROTEASE/AMYLASE (24,000/76,000/120,000) CAP PO SCH ×3 (08:31→16:25)
[2017-06-08] MEDS: metFORMIN HCL 850 MG TAB PO SCH ×2 (08:31→16:25)
[2017-06-08] MEDS: HEPARIN SODIUM - SQ 10,000 UNITS/ML VIAL SQ SCH ×2 (08:32→20:50)
[2017-06-08] MEDS: PANTOPRAZOLE SOD 40 MG DELAYED RELEASE TAB PO SCH (08:32)
[2017-06-08] MEDS: POVIDONE IODINE 10% OINT 30 GM TUBE TOPICAL SCH (08:35)
[2017-06-08] MEDS: NYSTATIN 100,000 U/GM PWD 15 GM BTL TOPICAL SCH ×2 (08:36→20:51)
[2017-06-08] MEDS: SODIUM HYPOCHLORITE 0.25% 500 ML BTL TOPICAL SCH (08:36)
[2017-06-08] MEDS: JUVEN POWDER 1 PACK G-TUBE SCH ×2 (08:48→20:50)
[2017-06-08] MEDS: METOPROLOL TARTRATE 25 MG TAB PO SCH ×2 (08:48→20:48)
--- NOTE | 2017-06-08 10:31 | HHI.PR ---
Subjective Remarks No acute events overnight. Afebrile, vital signs stable. Patient with no complaints this morning. Denies pain. Ostomy functioning well. Objective Vitals Vital Signs Date Time Temp Pulse Resp B/P Pulse Ox O2 Delivery O2 Flow Rate FiO2 06/08/17 08:00 96.9 68 18 110/59 97 06/08/17 00:00 98.2 71 17 117/60 98 06/07/17 20:00 99.1 78 17 122/58 97 06/07/17 16:00 99.0 56 20 131/63 96 06/07/17 12:00 98.0 83 19 109/59 99 I/O 06/07/17 06/07/17 06/07/17 06/08/17 06/08/17 06/08/17 07:00 15:00 23:00 07:00 15:00 23:00 Intake Total 240 ml 880 ml 240 ml 240 ml Output Total 1350 ml 400 ml 400 ml 601 ml 300 ml Balance -1110 ml 480 ml -160 ml -361 ml -300 ml Intake Oral 240 ml 880 ml 240 ml 240 ml IV Total 0 ml Output Urine Total 450 ml 400 ml 400 ml 600 ml 300 ml Stool Total 900 ml 1 ml # Voids 1 # Bowel Movements 0 Result Diagram: 06/05/17 0611 06/05/17 0611 Objective Remarks GENERAL: This is a well-nourished, well-developed patient, in no apparent distress. CARDIOVASCULAR: Regular rate and regular rhythm without murmurs, gallops, or rubs. RESPIRATORY: Clear to auscultation. Breath sounds equal bilaterally. No wheezes , rales, or rhonchi. GASTROINTESTINAL: Abdomen soft, non-tender, nondistended. Normal, active bowel sounds- colostomy in place. MUSCULOSKELETAL: Extremities without clubbing, cyanosis, or edema. NEURO: Alert & Oriented x4 to person, place, time, situation. Moves all ext x4 Procedures 05/06/17 OPERATION: 1. Excisional debridement of skin, subcutaneous tissue of open scrotal wound. 2. Reconstruction of scrotal wound with local advancement flap. 3. Closure of open scrotal wound with allograft, 7 x 10 cm. 05/14/17 Irrigation and excisional debridement of wound of scrotum and closure of wound with local advancement flap. 05/29/17 Staged reconstruction of scrotal wound with flap advancement and wound closure. Date of Insertion: April 22, 2017 A/P Problem List: (1) UTI (urinary tract infection) ICD Code: N39.0 Status: Acute (2) Failure to thrive in adult ICD Code: R62.7 Status: Acute Assessment and Plan - Necrotizing fasciitis/ Tony's Gangrene Treated for during recent hospitalization. S/p excision and debridement with washout of necrotizing fasciitis of the perineum, scrotum, and bilateral groin region. He had bacteremia and multiple organisms growing from the wound. He completed a course of antibiotics per ID. 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 05/14/17 Irrigation and excisional debridement of wound of scrotum and closure of wound with local advancement flap. 05/29/17 Staged reconstruction of scrotal wound with flap advancement and wound closure. management per plastic surgery- -recurrent fever due to UTI-now fever has resolved- lainez has been discontinued - UC with proteus- continue Rocephin - Inability to care for self The patient was discharged home [facility] and did not have running water. He had a hard time taking care of himself and was brought in to the hospital by police. Case management following continue PT/OT Supportive care. 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 The patient's ostomy bag exploded prior to arrival in the emergency department and reports indicate that he was covered in feces. continue ostomy care. Ostomy nurse consult requested. To follow-up with Dr. Jansen regarding reversal when wound is completely healed - Diabetes mellitus. Continue metformin and levemir. sliding scale insulin with Accu-Cheks. 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 wound care nurse following. Prophylaxis: SCDs and early ambulation. Continue subcutaneous heparin Discharge Planning Pending plastic surgery recommendations Nelly Robertson MD R3 Jun 08, 2017 10:31
[2017-06-08 12:00] VITALS: BP 118/62; PULSE 66; RESP 18; TEMP 97; O2SAT 98
[2017-06-08] MEDS: cefTRIAXone INJ 1,000 MG in SODIUM CHLORIDE 0.9% INJ 100 ML IV SCH (16:25)
[2017-06-08 20:00] VITALS: BP_SYST 124; BP_SYST 125; BP_DIAS 65; BP_DIAS 72; PULSE 62; PULSE 99; RESP 17; TEMP 97.5; TEMP 98.4; O2SAT 95; O2SAT 98
[2017-06-08] MEDS: INSULIN DETEMIR 100 UNITS/ML VIAL SQ SCH (21:39)
[2017-06-09] VITALS: BP 117/62; PULSE 61; RESP 17; TEMP 97; O2SAT 98
[2017-06-09] MEDS: INSULIN ASPART SUPPLEMENTAL SCALE SQ SCH ×4 (06:16→22:59)
[2017-06-09 08:00] VITALS: BP 110/57; PULSE 64; RESP 17; TEMP 97.1; O2SAT 97
[2017-06-09] MEDS: JUVEN POWDER 1 PACK G-TUBE SCH ×2 (08:39→21:00)
[2017-06-09] MEDS: POLYETHYLENE GLYCOL 17 GM PKG PO SCH (08:40)
[2017-06-09] MEDS: metFORMIN HCL 850 MG TAB PO SCH ×2 (08:40→17:37)
[2017-06-09] MEDS: METOPROLOL TARTRATE 25 MG TAB PO SCH ×2 (08:40→21:00)
[2017-06-09] MEDS: PANTOPRAZOLE SOD 40 MG DELAYED RELEASE TAB PO SCH (08:40)
[2017-06-09] MEDS: LIPASE/PROTEASE/AMYLASE (24,000/76,000/120,000) CAP PO SCH ×3 (08:40→17:37)
[2017-06-09] MEDS: HEPARIN SODIUM - SQ 10,000 UNITS/ML VIAL SQ SCH ×2 (08:40→22:54)
[2017-06-09] MEDS: NYSTATIN 100,000 U/GM PWD 15 GM BTL TOPICAL SCH ×2 (08:44→21:00)
[2017-06-09] MEDS: SODIUM HYPOCHLORITE 0.25% 500 ML BTL TOPICAL SCH ×2 (08:44→09:00)
[2017-06-09] MEDS: POVIDONE IODINE 10% OINT 30 GM TUBE TOPICAL SCH (08:44)
[2017-06-09 12:00] VITALS: BP 117/65; PULSE 67; RESP 17; TEMP 96.1; O2SAT 100
--- NOTE | 2017-06-09 14:11 | HHI.PR ---
Subjective Remarks Written by Pushpa Ware PA-C acting as scribe for Dr. Marcos on 06/09/17 at 13:52. Follow up on patient with Tony's Gangrene. Patient seen and examined today. Patient reports he is doing well. Denies any acute medical complaints. Denies any fever or chills. Denies any N/V, chest pain, SOB or abdominal pain. Patient is afebrile. VSS. Objective Vitals Vital Signs Date Time Temp Pulse Resp B/P Pulse Ox O2 Delivery O2 Flow Rate FiO2 06/09/17 12:00 96.1 67 17 117/65 100 06/09/17 08:00 97.1 64 17 110/57 97 06/09/17 00:00 97.0 61 17 117/62 98 06/08/17 20:00 98.4 62 17 124/65 98 I/O 06/08/17 06/08/17 06/08/17 06/09/17 06/09/17 06/09/17 07:00 15:00 23:00 07:00 15:00 23:00 Intake Total 240 ml 1080 ml 240 ml 240 ml Output Total 601 ml 300 ml 400 ml 1800 ml Balance -361 ml 780 ml -160 ml -1560 ml Intake Oral 240 ml 1080 ml 240 ml 240 ml IV Total 0 ml Output Urine Total 600 ml 300 ml 400 ml 1200 ml Stool Total 1 ml 600 ml # Voids 3 Result Diagram: 06/05/17 0611 06/05/17 0611 Imaging Last Impressions Chest X-Ray 06/05/17 0000 Signed Impressions: Service Date/Time: May 16:39 - CONCLUSION: 1. No acute cardiopulmonary findings. Jayme Newell MD Objective Remarks GENERAL: Well-nourished, well-developed patient. Awake and alert. Lying in hospital bed. SKIN: Warm and dry. Scrotal skin graft appears to be healing well. HEENT: Normocephalic. Atraumatic. EOMI. MMM. NECK: Supple. Trachea midline. CARDIOVASCULAR: Regular rate and rhythm. No murmur appreciated. RESPIRATORY: No accessory muscle use. Clear to auscultation. Breath sounds equal bilaterally. GASTROINTESTINAL: Abdomen soft, non-tender, nondistended. Normoactive bowel sounds x4. Ostomy bag in place. : healing wound w no signs of infection. MUSCULOSKELETAL: No obvious deformities. NEUROLOGICAL: Awake and alert. Able to move all extremities. Normal speech. PSYCHIATRIC: Flat affect; insight and judgment normal. Procedures 05/06/17 OPERATION: 1. Excisional debridement of skin, subcutaneous tissue of open scrotal wound. 2. Reconstruction of scrotal wound with local advancement flap. 3. Closure of open scrotal wound with allograft, 7 x 10 cm. 05/14/17 Irrigation and excisional debridement of wound of scrotum and closure of wound with local advancement flap. 05/29/17 Staged reconstruction of scrotal wound with flap advancement and wound closure. Medications and IVs Current Medications Medications (Trade) Dose Ordered Sig/Jeremias Route Start Time Stop Time Status Last Admin (Lopressor) 25 mg Q12HR PO 04/22/17 21:00 06/09/17 08:40 (Creon [id number]) 2 cap TID PO 04/22/17 18:00 06/09/17 11:43 (Protonix) 40 mg DAILY PO 04/23/17 09:00 06/09/17 08:40 (Tylenol) 650 mg Q4H PRN PO 04/22/17 13:45 06/05/17 23:20 (Tylenol) 650 mg Q6H PRN PO 04/22/17 13:45 (Roxicodone) 5 mg Q4H PRN PO 04/22/17 13:45 06/04/17 21:26 (D50w (Vial) Inj) 50 ml UNSCH PRN IV 04/22/17 19:15 (Glucagon Inj) 1 mg UNSCH PRN OTHER 04/22/17 19:15 (Diane-Colace) 2 tab BID PRN PO 04/24/17 13:00 (Miralax) 17 gm DAILY PO 04/24/17 13:00 06/09/17 08:40 (Heparin Inj) 5,000 units Q12HR SQ 04/25/17 21:00 06/09/17 08:40 (Dakin'S 0.25% Soln) W-D DRESSING TO SCRO... DAILY TOPICAL 04/28/17 17:00 06/08/17 08:36 (Thomas Powder) 1 pack BID G-TUBE 05/01/17 21:00 06/06/17 08:56 (Zofran Odt) 4 mg Q6H PRN PO 05/01/17 11:30 (Glucophage) 850 mg BIDPC PO 05/11/17 09:15 06/09/17 08:40 (Betadine 10% Oint) 1 applic DAILY TOPICAL 05/16/17 09:00 06/09/17 08:44 Nystatin 1 applic 1 applic Q12HR TOPICAL 06/02/17 21:00 06/09/17 08:44 (Rocephin Inj/NS Inj) 100 ml @ 200 mls/hr Q24H IV 06/05/17 17:00 06/08/17 16:25 (Levemir Inj) 10 units HS SQ 06/07/17 21:00 06/08/17 21:39 Date of Insertion: April 22, 2017 A/P Problem List: (1) UTI (urinary tract infection) ICD Code: N39.0 Status: Acute (2) Failure to thrive in adult ICD Code: R62.7 Status: Acute Assessment and Plan 67 yo male recently treated for Tony's Gangrene s/p debridement and antibiotic treatment admitted with open wound in the scrotal and perineal areas: Necrotizing fasciitis/ Tony's Gangrene - Treated for during recent hospitalization. S/p excision and debridement with washout of necrotizing fasciitis of the perineum, scrotum, and bilateral groin region. He had bacteremia and multiple organisms growing from the wound. He completed a course of antibiotics per ID. - Open wound of scrotum secondary to Tony's Gangrene 05/06/17 status post Excisional debridement of skin, subcutaneous tissue of open scrotal wound, reconstruction of scrotal wound with local advancement flap , Closure of open scrotal wound with allograft 7 x 10 cms. 05/14/17 Irrigation and excisional debridement of wound of scrotum and closure of wound with local advancement flap. 05/29/17 Staged reconstruction of scrotal wound with flap advancement and wound closure. - continued management per plastic surgery Proteus UTI -continue with Rocephin to complete 10 to 14 day course Inability to care for self - patient was discharged home from the intermediate facility and did not have running water. He had a hard time taking care of himself and was brought in to the hospital by police. - Case management following - patient has been accepted at [facility] - continue participation with PT/OT - continue supportive care. 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 The patient's ostomy bag exploded prior to arrival in the emergency department and reports indicate that he was covered in feces. - continue ostomy care. - Ostomy nurse consult requested. - Patient to follow-up with Dr. Jansen regarding reversal when wound is completely healed Diabetes mellitus - BS running mid 200s - Continue metformin - Increase Levemir to 5u in am and continue 10u at night - sliding scale insulin with Accu-Cheks. 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 - wound care nurse following. Prophylaxis: SCDs and early ambulation. Continue subcutaneous heparin This note was transcribed by artie Ware. I, Dr. Shira Marcos personally performed the history, physical exam, and medical decision making; and confirmed the accuracy of the information in the transcribed note. Authenticated by Dr. Shira Marcos on 06/09/17 at 13:52. Discharge Planning awaiting final recs from plastic sx Pushpa Ware Jun 09, 2017 14:11 Shira Marcos MD Jun 09, 2017 14:54 Shira Marcos MD Jun 09, 2017 14:54
[2017-06-09 16:00] VITALS: BP 124/72; PULSE 78; RESP 17; TEMP 95.7; O2SAT 97
[2017-06-09] MEDS: cefTRIAXone INJ 1,000 MG in SODIUM CHLORIDE 0.9% INJ 100 ML IV SCH (17:37)
[2017-06-09 20:00] VITALS: BP 118/59; PULSE 78; RESP 18; TEMP 97.2; O2SAT 96
[2017-06-09] MEDS: INSULIN DETEMIR 100 UNITS/ML VIAL SQ SCH (23:00)
[2017-06-10] VITALS: BP 130/60; PULSE 71; RESP 18; TEMP 96.8; O2SAT 99
[2017-06-10] MEDS: INSULIN ASPART SUPPLEMENTAL SCALE SQ SCH ×4 (06:05→23:28)
[2017-06-10] MEDS: INSULIN DETEMIR 100 UNITS/ML VIAL SQ SCH ×2 (06:07→23:29)
[2017-06-10 08:00] VITALS: BP 120/62; PULSE 65; RESP 16; TEMP 97.3; O2SAT 97
[2017-06-10] MEDS: LIPASE/PROTEASE/AMYLASE (24,000/76,000/120,000) CAP PO SCH ×3 (08:05→16:19)
[2017-06-10] MEDS: metFORMIN HCL 850 MG TAB PO SCH ×2 (08:05→16:19)
[2017-06-10] MEDS: POLYETHYLENE GLYCOL 17 GM PKG PO SCH (08:06)
[2017-06-10] MEDS: PANTOPRAZOLE SOD 40 MG DELAYED RELEASE TAB PO SCH (08:06)
[2017-06-10] MEDS: METOPROLOL TARTRATE 25 MG TAB PO SCH ×2 (08:06→23:20)
[2017-06-10] MEDS: JUVEN POWDER 1 PACK G-TUBE SCH ×2 (08:07→21:00)
[2017-06-10] MEDS: HEPARIN SODIUM - SQ 10,000 UNITS/ML VIAL SQ SCH ×2 (08:08→23:19)
[2017-06-10] MEDS: NYSTATIN 100,000 U/GM PWD 15 GM BTL TOPICAL SCH ×2 (08:08→21:00)
[2017-06-10] MEDS: SODIUM HYPOCHLORITE 0.25% 500 ML BTL TOPICAL SCH (08:08)
[2017-06-10] MEDS: POVIDONE IODINE 10% OINT 30 GM TUBE TOPICAL SCH (08:09)
[2017-06-10 12:00] VITALS: BP 121/64; PULSE 74; RESP 16; TEMP 97.4; O2SAT 100
--- NOTE | 2017-06-10 14:09 | PD.PLAS.PN ---
Subjective Remarks Patient is 13 days status post staged closure of scrotal wound with local advancement flap. The patient has no complaints. He denies any pain or discomfort. He states that he has been doing his sitz baths twice daily. Objective Vital Signs Date Time Temp Pulse Resp B/P Pulse Ox O2 Delivery O2 Flow Rate FiO2 06/10/17 12:00 97.4 74 16 121/64 100 06/10/17 08:00 97.3 65 16 120/62 97 06/10/17 00:00 96.8 71 18 130/60 99 06/09/17 20:00 97.2 78 18 118/59 96 06/09/17 16:00 95.7 78 17 124/72 97 I/O 06/09/17 06/09/17 06/09/17 06/10/17 06/10/17 06/10/17 07:00 15:00 23:00 07:00 15:00 23:00 Intake Total 240 ml 1200 ml Output Total 1800 ml 1150 ml 1100 ml Balance -1560 ml 50 ml -1100 ml Intake Oral 240 ml 1200 ml Output Urine Total 1200 ml 1100 ml 1100 ml Stool Total 600 ml 50 ml # Bowel Movements 3 Date/Time Procedure Status Source Growth 06/05/17 17:16 Aerobic Blood Culture - Final Complete Blood Peripheral NO GROWTH IN 5 DAYS 06/05/17 17:16 Anaerobic Blood Culture - Final Complete Blood Peripheral NO GROWTH IN 5 DAYS Exam Findings Patient is resting comfortably in bed. He is awake and alert. Scrotal wound continues to heal well. There is no evidence of infection. Drain wound remains open. There is no odor or drainage. Sutures are in place. Assessment and Plan Diagnosis: (1) Open wound of scrotum Assessment and Plan Wound is healing well. Continue with BID wound care as ordered. Patient is advised that sutures will likely be kept in place for 1 more week. Vianney Baum Jun 10, 2017 14:09
[2017-06-10 16:00] VITALS: BP 118/60; PULSE 74; RESP 16; TEMP 97.4; O2SAT 97
[2017-06-10] MEDS: cefTRIAXone INJ 1,000 MG in SODIUM CHLORIDE 0.9% INJ 100 ML IV SCH (16:20)
--- NOTE | 2017-06-10 17:59 | HHI.PR ---
Subjective Remarks Pt has no complaints today, denies any CP/SOB/N/V Objective Vitals Vital Signs Date Time Temp Pulse Resp B/P Pulse Ox O2 Delivery O2 Flow Rate FiO2 06/10/17 16:00 97.4 74 16 118/60 97 06/10/17 12:00 97.4 74 16 121/64 100 06/10/17 08:00 97.3 65 16 120/62 97 06/10/17 00:00 96.8 71 18 130/60 99 06/09/17 20:00 97.2 78 18 118/59 96 I/O 06/09/17 06/09/17 06/09/17 06/10/17 06/10/17 06/10/17 07:00 15:00 23:00 07:00 15:00 23:00 Intake Total 240 ml 1200 ml 240 ml Output Total 1800 ml 1150 ml 1100 ml 800 ml Balance -1560 ml 50 ml -1100 ml -560 ml Intake Oral 240 ml 1200 ml 240 ml Output Urine Total 1200 ml 1100 ml 1100 ml 800 ml Stool Total 600 ml 50 ml # Bowel Movements 3 1 Imaging Last Impressions Chest X-Ray 06/05/17 0000 Signed Impressions: Service Date/Time: May 16:39 - CONCLUSION: 1. No acute cardiopulmonary findings. Jayme Newell MD Objective Remarks GENERAL: Well-nourished, well-developed patient. Awake and alert. Lying in hospital bed. SKIN: Warm and dry. Scrotal skin graft exam deferred today HEENT EOMI. NECK: Supple. Trachea midline. CARDIOVASCULAR: Regular rate and rhythm. No murmur appreciated. RESPIRATORY: No accessory muscle use. Clear to auscultation. Breath sounds equal bilaterally. GASTROINTESTINAL: Abdomen soft, non-tender, nondistended. Normoactive bowel sounds x4. Ostomy bag in place. MUSCULOSKELETAL: No obvious deformities. NEUROLOGICAL: Awake and alert. Able to move all extremities. Normal speech. PSYCHIATRIC: Flat affect; insight and judgment normal. Procedures 05/06/17 OPERATION: 1. Excisional debridement of skin, subcutaneous tissue of open scrotal wound. 2. Reconstruction of scrotal wound with local advancement flap. 3. Closure of open scrotal wound with allograft, 7 x 10 cm. 05/14/17 Irrigation and excisional debridement of wound of scrotum and closure of wound with local advancement flap. 7/6/17 Staged reconstruction of scrotal wound with flap advancement and wound closure. Date of Insertion: April 22, 2017 A/P Problem List: (1) UTI (urinary tract infection) ICD Code: N39.0 Status: Acute (2) Failure to thrive in adult ICD Code: R62.7 Status: Acute Assessment and Plan 67 yo male recently treated for Tony's Gangrene s/p debridement and antibiotic treatment admitted with open wound in the scrotal and perineal areas: Necrotizing fasciitis/ Tony's Gangrene - Treated for during recent hospitalization. S/p excision and debridement with washout of necrotizing fasciitis of the perineum, scrotum, and bilateral groin region. He had bacteremia and multiple organisms growing from the wound. He completed a course of antibiotics per ID. - Open wound of scrotum secondary to Tony's Gangrene 05/06/17 status post Excisional debridement of skin, subcutaneous tissue of open scrotal wound, reconstruction of scrotal wound with local advancement flap , Closure of open scrotal wound with allograft 7 x 10 cms. 05/14/17 Irrigation and excisional debridement of wound of scrotum and closure of wound with local advancement flap. 05/29/17 Staged reconstruction of scrotal wound with flap advancement and wound closure. - continued management per plastic surgery. awaiting clearance from plastics Proteus UTI -continue with Rocephin to complete 10 to 14 day course Inability to care for self - patient was discharged home from the senior living facility and did not have running water. He had a hard time taking care of himself and was brought in to the hospital by police. - Case management following - patient has been accepted at [facility] - continue participation with PT/OT - continue supportive care. 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 The patient's ostomy bag exploded prior to arrival in the emergency department and reports indicate that he was covered in feces. - continue ostomy care. - Ostomy nurse consult requested. - Patient to follow-up with Dr. Jansen regarding reversal when wound is completely healed Diabetes mellitus - BS running mid 200s - Continue metformin - Increase Levemir to 5u in am and continue 10u at night - sliding scale insulin with Accu-Cheks. 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 - wound care nurse following. Prophylaxis: SCDs and early ambulation. Continue subcutaneous heparin Discharge Planning awaiting final recs from plastic sx Shira Marcos MD Jun 10, 2017 17:59
[2017-06-10 20:00] VITALS: BP 118/61; PULSE 76; RESP 16; TEMP 96.7; O2SAT 98
[2017-06-11] VITALS: BP 116/61; PULSE 72; RESP 18; TEMP 97.5; O2SAT 98
[2017-06-11] MEDS: INSULIN ASPART SUPPLEMENTAL SCALE SQ SCH ×3 (05:18→15:59)
[2017-06-11] MEDS: INSULIN DETEMIR 100 UNITS/ML VIAL SQ SCH (05:19)
[2017-06-11 08:00] VITALS: BP 110/59; PULSE 65; RESP 18; TEMP 95.9; O2SAT 100
[2017-06-11] MEDS: SODIUM HYPOCHLORITE 0.25% 500 ML BTL TOPICAL SCH (09:00)
[2017-06-11] MEDS: NYSTATIN 100,000 U/GM PWD 15 GM BTL TOPICAL SCH (09:00)
[2017-06-11] MEDS: POVIDONE IODINE 10% OINT 30 GM TUBE TOPICAL SCH (09:00)
[2017-06-11] MEDS: JUVEN POWDER 1 PACK G-TUBE SCH (09:00)
--- NOTE | 2017-06-11 09:34 | HHI.PR ---
Subjective Remarks Patient has no complaints today. Denies any chest pain, shortness of breath, nausea or vomiting. Objective Vitals Vital Signs Date Time Temp Pulse Resp B/P Pulse Ox O2 Delivery O2 Flow Rate FiO2 06/11/17 00:00 97.5 72 18 116/61 98 06/10/17 20:00 96.7 76 16 118/61 98 06/10/17 16:00 97.4 74 16 118/60 97 06/10/17 12:00 97.4 74 16 121/64 100 I/O 06/10/17 06/10/17 06/10/17 06/11/17 06/11/17 06/11/17 07:00 15:00 23:00 07:00 15:00 23:00 Intake Total 240 ml Output Total 800 ml 900 ml Balance -560 ml -900 ml Intake Oral 240 ml Output Urine Total 800 ml 800 ml Stool Total 100 ml # Bowel Movements 1 Imaging Last Impressions Chest X-Ray 06/05/17 0000 Signed Impressions: Service Date/Time: May 16:39 - CONCLUSION: 1. No acute cardiopulmonary findings. Jayme Newell MD Objective Remarks GENERAL: Well-nourished, well-developed patient. Awake and alert. Lying in hospital bed. SKIN: Warm and dry. Scrotal skin wound appears to be healing well. No drainage noted. HEENT EOMI. NECK: Supple. Trachea midline. CARDIOVASCULAR: Regular rate and rhythm. No murmur appreciated. RESPIRATORY: No accessory muscle use. Clear to auscultation. Breath sounds equal bilaterally. GASTROINTESTINAL: Abdomen soft, non-tender, nondistended. Normoactive bowel sounds x4. Ostomy bag in place. MUSCULOSKELETAL: No obvious deformities. NEUROLOGICAL: Awake and alert. Able to move all extremities. Normal speech. PSYCHIATRIC: Flat affect; insight and judgment normal. Procedures 05/06/17 OPERATION: 1. Excisional debridement of skin, subcutaneous tissue of open scrotal wound. 2. Reconstruction of scrotal wound with local advancement flap. 3. Closure of open scrotal wound with allograft, 7 x 10 cm. 05/14/17 Irrigation and excisional debridement of wound of scrotum and closure of wound with local advancement flap. 05/29/17 Staged reconstruction of scrotal wound with flap advancement and wound closure. Date of Insertion: April 22, 2017 A/P Problem List: (1) UTI (urinary tract infection) ICD Code: N39.0 Status: Acute (2) Failure to thrive in adult ICD Code: R62.7 Status: Acute Assessment and Plan 67 yo male recently treated for Tony's Gangrene s/p debridement and antibiotic treatment admitted with open wound in the scrotal and perineal areas: Necrotizing fasciitis/ Tony's Gangrene - Treated for during recent hospitalization. S/p excision and debridement with washout of necrotizing fasciitis of the perineum, scrotum, and bilateral groin region. He had bacteremia and multiple organisms growing from the wound. He completed a course of antibiotics per ID. - Open wound of scrotum secondary to Tony's Gangrene 05/06/17 status post Excisional debridement of skin, subcutaneous tissue of open scrotal wound, reconstruction of scrotal wound with local advancement flap , Closure of open scrotal wound with allograft 7 x 10 cms. 05/14/17 Irrigation and excisional debridement of wound of scrotum and closure of wound with local advancement flap. 05/29/17 Staged reconstruction of scrotal wound with flap advancement and wound closure. - continued management per plastic surgery. awaiting clearance from plastics for discharge Proteus UTI -continue with Rocephin to complete 10 to 14 day course. Can be discharged on Augmentin to complete antibiotics as an outpatient. Inability to care for self - patient was discharged home from the care home facility and did not have running water. He had a hard time taking care of himself and was brought in to the hospital by police. - Case management following - patient has been accepted at [facility] - continue participation with PT/OT - continue supportive care. 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 The patient's ostomy bag exploded prior to arrival in the emergency department and reports indicate that he was covered in feces. - continue ostomy care. - Ostomy nurse consult requested. - Patient to follow-up with Dr. Jansen regarding reversal when wound is completely healed Diabetes mellitus - BS running mid 200s - Continue metformin - Increase Levemir to 5u in am and continue 10u at night - sliding scale insulin with Accu-Cheks. 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 - wound care nurse following. Prophylaxis: SCDs and early ambulation. Continue subcutaneous heparin Discharge Planning Discussed with Dr. Tobin. Plastic surgery team will evaluate wound today and make further recommendations as far as d/c planning. The patient has been accepted at [facility] and rehabilitation. Shira Marcos MD Jun 11, 2017 09:34
[2017-06-11] MEDS: POLYETHYLENE GLYCOL 17 GM PKG PO SCH (10:14)
[2017-06-11] MEDS: PANTOPRAZOLE SOD 40 MG DELAYED RELEASE TAB PO SCH (10:14)
[2017-06-11] MEDS: metFORMIN HCL 850 MG TAB PO SCH (10:14)
[2017-06-11] MEDS: METOPROLOL TARTRATE 25 MG TAB PO SCH (10:14)
[2017-06-11] MEDS: HEPARIN SODIUM - SQ 10,000 UNITS/ML VIAL SQ SCH (10:14)
[2017-06-11] MEDS: LIPASE/PROTEASE/AMYLASE (24,000/76,000/120,000) CAP PO SCH ×2 (10:14→12:54)
[2017-06-11 12:00] VITALS: BP 125/60; PULSE 72; RESP 20; TEMP 96.7; O2SAT 100
[2017-06-11] MEDS ORDERED: NYST10007 TOPICAL (12:19)
[2017-06-11] MEDS ORDERED: LEVEMIR SQ ×2 (12:19)
[2017-06-11] MEDS ORDERED: AUGM875T3 PO (12:21)
--- NOTE | 2017-06-11 12:21 | HHI.DS ---
Discharge Summary Admission Date May 06, 2017 at 17:39 Admitting Diagnosis Failure to thrive (1) UTI (urinary tract infection) ICD Code: N39.0 (2) Failure to thrive in adult ICD Code: R62.7 Procedures 05/06/17 OPERATION: 1. Excisional debridement of skin, subcutaneous tissue of open scrotal wound. 2. Reconstruction of scrotal wound with local advancement flap. 3. Closure of open scrotal wound with allograft, 7 x 10 cm. 05/14/17 Irrigation and excisional debridement of wound of scrotum and closure of wound with local advancement flap. 05/29/17 Staged reconstruction of scrotal wound with flap advancement and wound closure. Brief History - From Admission The patient is a 67-year-old male with past medical history of diabetes who was recently in the hospital for treatment of Tony gangrene who is presenting to the hospital after being brought in by police. The patient had a prolonged course of treatment for Tony gangrene for which he received many debridements and antibiotics per infectious disease and was then discharged to a retirement facility. The patient completed a course of oral antibiotics there and was discharged back home a month later. Once the patient returned home he discovered that he had no running water in his house. He said that he was in talks with the [employer] and that the water should not have been shut off. He was borrowing water from neighbors. His ostomy bag exploded and he is unsure how that happened. He was unable to clean it without running water and went to the store. The police were called in and brought the patient to the hospital. In the emergency department the patient was found to have feces everywhere covering most of his genitals and scrotum. The patient has no acute complaints at this time. PE at Discharge GENERAL: Well-nourished, well-developed patient. Awake and alert. Lying in hospital bed. SKIN: Warm and dry. Scrotal skin wound appears to be healing well. No drainage noted. HEENT EOMI. NECK: Supple. Trachea midline. CARDIOVASCULAR: Regular rate and rhythm. No murmur appreciated. RESPIRATORY: No accessory muscle use. Clear to auscultation. Breath sounds equal bilaterally. GASTROINTESTINAL: Abdomen soft, non-tender, nondistended. Normoactive bowel sounds x4. Ostomy bag in place. MUSCULOSKELETAL: No obvious deformities. NEUROLOGICAL: Awake and alert. Able to move all extremities. Normal speech. PSYCHIATRIC: Flat affect; insight and judgment normal. Discharge Disposition: Discharge to SNF Discharge Instructions DIET: Follow Instructions for: Heart Healthy Diet, Diabetic Diet Activities you can perform: See Additionl Instruction Other Activity Instructions: per plastic sx. Shira Marcos MD Jun 11, 2017 12:21
== END 2017-06-11 16:15 | DRG 717 ==
LOC: PHED 10:53 → PHEDA 13:41 → PH3A 14:52 → PH5A 04-30 16:41 → N07A 05-05 16:21 → OBSVTOIN 05-06 17:39
PROVIDERS: ADMIT Hospitalist; ATTEND Hospitalist
PROC: 0HR Skin and Breast, Replacement (ICD-10-PCS; 2017-05-06)
PROC: 0HXAXZZ Transfer Inguinal Skin, External Approach (ICD-10-PCS; 2017-05-06)
PROC: 0T2BX0Z Change Drainage Device in Bladder, External Approach (ICD-10-PCS; 2017-05-06)
PROC: 0JBB0ZZ Excision of Perineum Subcutaneous Tissue and Fascia, Open Approach (ICD-10-PCS; principal; 2017-05-06 11:30)
PROC: 0HQAXZZ Repair Inguinal Skin, External Approach (ICD-10-PCS; 2017-05-14)
PROC: 0HDAXZZ Extraction of Inguinal Skin, External Approach (ICD-10-PCS; 2017-05-29)
PROC: 0HQAXZZ Repair Inguinal Skin, External Approach (ICD-10-PCS; 2017-05-29)
DX: N49.3 Fournier gangrene (principal); M72.6 Necrotizing fasciitis; G62.9 Polyneuropathy, unspecified; R64 Cachexia; I48.91 Unspecified atrial fibrillation; E11.40 Type 2 diabetes mellitus with diabetic neuropathy, unspecified; I11.9 Hypertensive heart disease without heart failure; R62.7 Adult failure to thrive; N39.0 Urinary tract infection, site not specified; E11.65 Type 2 diabetes mellitus with hyperglycemia; K59.39 Other megacolon; E87.6 Hypokalemia; M19.90 Unspecified osteoarthritis, unspecified site; Z93.3 Colostomy status; B96.4 Proteus (mirabilis) (morganii) as the cause of diseases classified elsewhere
CPT/HCPCS: 71010; 80048; 80053; 81001; 82565; 82948; 83036; 83735; 84100; 84520; 85025; 85610; 85730; 87040; 87077; 87086; 87186; 96361; 96372; 96374; 96375; G0378; G8987-GO; G8987-GP; G8988-GO; G8988-GP; J0696; J0744; J1100; J1644; J1815; J2370; J2405; J2710; J3010; J7030; Q4119

== ENCOUNTER 2018-03-08 17:13 | Inpatient (IN) | payer OTHER, MEDICAID, MEDICARE ==
[~2018-03-08] VITALS: Ht 182.9 cm; Wt 108.0 kg
[~2018-03-08 17:13] MED LIST changes: +AMPI1INJ IV; -CREON24 PO; +LANCETS1 MI1; +METF1000 PO; -METO25TA3 PO; +METR-1 PO; -NOVOLOGP2 SQ; -PANT40TA3 PO; +PEN29MIS; -ZYVO600T PO; +[UNRECOGNIZED DRUG - CODE]
[2018-03-08] MEDS ORDERED: SODIUM CHLOR 0.9% 1000 ML INJ 1,000 ML IV ONE ×2 (17:25)
[2018-03-08 17:27] VITALS: BP 177/87; PULSE 90; RESP 22; TEMP 101.5; O2SAT 94
--- NOTE | 2018-03-08 18:05 | PD ---
HPI Chief Complaint: Altered Mental Status Time Seen by Provider: 17:20 Travel History International Travel<30 days: No Contact w/Intl Traveler<30days: No History of Present Illness HPI Patient is a 68-year-old male presenting to the emergency department for evaluation of altered mental status. Patient is a poor historian, EMS stated that patient's neighbor called them. Patient was found with a temp of 101 axillary. He was covered in feces, his colostomy bag had exploded. They report that he was tachycardic up to 110. It is unknown when he was last seen normal. Patient has a history of type 2 diabetes, his blood glucose is 322. He was given 500 cc of IV fluids in route. Symptom onset is unknown, symptoms appear severe. H&P is limited due to clinical condition. PFSH Past Medical History Arthritis: Yes Atrial Fibrillation: Yes Diabetes: Yes Patient Takes Glucophage: Yes Gastrointestinal Disorders: Yes ( megacolon, colostomy) Musculoskeletal: Yes (ARTHRITIS) Neurologic: Yes (NEUROPATHY BILAT LE) Integumentary: Yes (Gangrene in his right foot) Past Surgical History Abdominal Surgery: Yes (colostomy) Tonsillectomy: Yes Other Surgery: Yes (Right foot resection) Social History Alcohol Use: No Tobacco Use: No Substance Use: No Allergies-Medications (Allergen,Severity, Reaction): Coded Allergies: Influenza Virus Vaccines (Verified Allergy, Severe, Anaphylaxis, 01/02/18) *MDRO Multi-Drug Resistant Organism (Verified Adverse Reaction, Unknown, ) 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 Levemir Inj (Insulin Detemir) 1,000 unit/ 10 ML Vial 15 Units SQ HS 30 Days Do not mix with any other Insulin. Reported Metformin (Metformin HCl) 1,000 Mg Tab 1,000 Mg PO BIDPC Review of Systems ROS Limitations: Clinical Condition, Altered Mental Status, Poor Historian Except as stated in HPI: all other systems reviewed are Neg General / Constitutional: Positive: Fever Skin: Positive Lesions Neurologic: Positive: Weakness Physical Exam Narrative GENERAL: Obese, well-developed, lethargic male. Presenting in no acute distress. SKIN: Warm and dry. Excoriation to inner upper thighs and buttocks. left second toe with purulent, foul drainage. Fluctuant area to the lateral aspect of the left foot approximately 1 cm HEAD: Atraumatic. Normocephalic. EYES: Pupils equal and round. No scleral icterus. No injection or drainage. ENT: No nasal bleeding or discharge. Mucous membranes pink and moist. NECK: Trachea midline. No JVD. CARDIOVASCULAR: Regular rate and rhythm. RESPIRATORY: No accessory muscle use. Clear to auscultation. Breath sounds equal bilaterally. GASTROINTESTINAL: Abdomen soft, non-tender, nondistended. Hepatic and splenic margins not palpable. Colostomy MUSCULOSKELETAL: Extremities without clubbing, cyanosis, or edema. No obvious deformities. NEUROLOGICAL: Drowsy but arousable, oriented to self, place, day and time.. No obvious cranial nerve deficits. Motor grossly within normal limits. Five out of 5 muscle strength in the arms and legs. Normal speech. Data Data Last Documented VS Vital Signs Date Time Temp Pulse Resp B/P (MAP) Pulse Ox O2 Delivery O2 Flow Rate FiO2 03/08/18 21:48 101.2 03/08/18 19:39 89 16 98 Nasal Cannula 03/08/18 18:44 2.00 Orders Orders Sepsis Workup Initiated (03/08/18 ) Electrocardiogram (03/08/18 17:25) Complete Blood Count With Diff (03/08/18 17:25) Comprehensive Metabolic Panel (03/08/18 17:25) Prothrombin Time / Inr (Pt) (03/08/18 17:25) Act Partial Throm Time (Ptt) (03/08/18 17:25) Lactic Acid Sepsis Protocol (03/08/18 17:25) Magnesium (Mg) (03/08/18 17:25) Urinalysis - C+S If Indicated (03/08/18 17:25) Blood Culture (4/15/18 17:25) Chest, Single Ap (03/08/18 17:25) Blood Glucose (03/08/18 17:25) Ecg Monitoring (03/08/18 17:25) Iv Access Insert/Monitor (03/08/18 17:25) Cath For Specimen (03/08/18 17:25) Oximetry (03/08/18 17:25) Oxygen Administration (03/08/18 17:25) Urinary Catheter Insert/Apply (03/08/18 17:25) Sodium Chlor 0.9% 1000 Ml Inj (Ns 1000 M (03/08/18 17:25) Sodium Chlor 0.9% 1000 Ml Inj (Ns 1000 M (03/08/18 17:25) Westergren Sedimentation Rate (03/08/18 18:05) Ct Brain W/O Iv Contrast(Rout) (03/08/18 ) Foot, Complete ([id number]) (03/08/18 18:11) Acetaminophen 1000 Mg/100 Ml (Ofirmev 10 (03/08/18 18:30) Lorazepam Inj (Ativan Inj) (03/08/18 18:30) Blood Gas Venous (Vbg) (03/08/18 18:19) Wound Culture And Gram Stain (03/08/18 18:34) Ceftriaxone Inj (Rocephin Inj) (03/08/18 18:41) Azithromycin Inj (Zithromax Inj) (03/08/18 18:41) C-Reactive Protein (Crp) (03/08/18 18:30) Metoprolol Tartrate Inj (Lopressor Inj) (03/08/18 19:30) Ketorolac Inj (Toradol Inj) (03/08/18 21:30) Acetaminophen Supp (Tylenol Supp) (03/08/18 21:30) Admit Order (Ed Use Only) (03/08/18 22:56) Labs Laboratory Tests Test 03/08/18 17:45 03/08/18 18:19 03/08/18 18:30 White Blood Count 17.3 TH/MM3 Red Blood Count 4.75 MIL/MM3 Hemoglobin 13.9 GM/DL Hematocrit 41.7 % Mean Corpuscular Volume 88.0 FL Mean Corpuscular Hemoglobin 29.4 PG Mean Corpuscular Hemoglobin Concent 33.4 % Red Cell Distribution Width 15.2 % Platelet Count 220 TH/MM3 Mean Platelet Volume 9.0 FL Neutrophils (%) (Auto) 91.0 % Lymphocytes (%) (Auto) 5.1 % Monocytes (%) (Auto) 3.5 % Eosinophils (%) (Auto) 0.1 % Basophils (%) (Auto) 0.3 % Neutrophils # (Auto) 15.7 TH/MM3 Lymphocytes # (Auto) 0.9 TH/MM3 Monocytes # (Auto) 0.6 TH/MM3 Eosinophils # (Auto) 0.0 TH/MM3 Basophils # (Auto) 0.1 TH/MM3 CBC Comment DIFF FINAL Differential Comment Erythrocyte Sedimentation Rate 22 mm/hr Prothrombin Time 11.8 SEC Prothromb Time International Ratio 1.2 RATIO Activated Partial Thromboplast Time 22.6 SEC Urine Color LIGHT-YELLOW Urine Turbidity CLEAR Urine pH 7.0 Urine Specific [place] 1.015 Urine Protein 100 mg/dL Urine Glucose (UA) 300 mg/dL Urine Ketones 10 mg/dL Urine Occult Blood TRACE Urine Nitrite NEG Urine Bilirubin NEG Urine Urobilinogen LESS THAN 2.0 MG/DL Urine Leukocyte Esterase NEG Urine RBC 1 /hpf Urine WBC LESS THAN 1 /hpf Urine Mucus FEW /lpf Microscopic Urinalysis Comment CATH-CULT NOT IND Lactic Acid Level 1.6 mmol/L Blood Gas Puncture Site LT RADIAL Blood Gas Patient Temperature 98.6 Venous Blood pH 7.40 Venous Blood Partial Pressure CO2 44 mmHg Venous Blood Partial Pressure O2 31 mmHg Venous Blood HCO3 27 mmol/L Venous Blood Oxygen Saturation 53 % Venous Blood Oxygen Content 10.6 Vol % Venous Blood Base Excess 2.4 mmol/L Oxygen Delivery Device ROOM AIR Blood Gas Inspired Oxygen 21 % Blood Urea Nitrogen 25 MG/DL Creatinine 0.98 MG/DL Random Glucose 282 MG/DL Total Protein 7.8 GM/DL Albumin 3.5 GM/DL Calcium Level 8.7 MG/DL Magnesium Level 1.5 MG/DL Alkaline Phosphatase 83 U/L Aspartate Amino Transf (AST/SGOT) 16 U/L Alanine Aminotransferase (ALT/SGPT) 23 U/L Total Bilirubin 0.5 MG/DL Sodium Level 138 MEQ/L Potassium Level 4.3 MEQ/L Chloride Level 103 MEQ/L Carbon Dioxide Level 25.3 MEQ/L Anion Gap 10 MEQ/L Estimat Glomerular Filtration Rate 76 ML/MIN C-Reactive Protein 0.50 MG/DL MDM Medical Decision Making Medical Screen Exam Complete: Yes Emergency Medical Condition: Yes Medical Record Reviewed: Yes Interpretation(s) Last Impressions Foot X-Ray 03/08/18 1811 Signed Impressions: Service Date/Time: Thursday, March 08, 2018 18:08 - CONCLUSION: Resorption of the second and third toe distal phalanges, most acute and appearing at the level of the second digit. Extensive chronic changes elsewhere. Frank Strauss MD Chest X-Ray 03/08/18 1725 Signed Impressions: Service Date/Time: Thursday, March 08, 2018 17:50 - CONCLUSION: Mild left base infiltrate Frank Strauss MD Vital Signs Date Time Temp Pulse Resp B/P (MAP) Pulse Ox O2 Delivery O2 Flow Rate FiO2 03/08/18 21:48 101.2 03/08/18 19:39 89 16 184/86 (118) 98 Nasal Cannula 03/08/18 19:30 87 195/89 (124) 03/08/18 18:44 93 21 195/94 (127) 100 Nasal Cannula 2.00 03/08/18 18:14 Room Air 03/08/18 17:27 101.5 90 22 177/87 (117) 94 Laboratory Tests Test 03/08/18 17:45 03/08/18 18:19 03/08/18 18:30 White Blood Count 17.3 TH/MM3 Red Blood Count 4.75 MIL/MM3 Hemoglobin 13.9 GM/DL Hematocrit 41.7 % Mean Corpuscular Volume 88.0 FL Mean Corpuscular Hemoglobin 29.4 PG Mean Corpuscular Hemoglobin Concent 33.4 % Red Cell Distribution Width 15.2 % Platelet Count 220 TH/MM3 Mean Platelet Volume 9.0 FL Neutrophils (%) (Auto) 91.0 % Lymphocytes (%) (Auto) 5.1 % Monocytes (%) (Auto) 3.5 % Eosinophils (%) (Auto) 0.1 % Basophils (%) (Auto) 0.3 % Neutrophils # (Auto) 15.7 TH/MM3 Lymphocytes # (Auto) 0.9 TH/MM3 Monocytes # (Auto) 0.6 TH/MM3 Eosinophils # (Auto) 0.0 TH/MM3 Basophils # (Auto) 0.1 TH/MM3 CBC Comment DIFF FINAL Differential Comment Erythrocyte Sedimentation Rate 22 mm/hr Prothrombin Time 11.8 SEC Prothromb Time International Ratio 1.2 RATIO Activated Partial Thromboplast Time 22.6 SEC Urine Color LIGHT-YELLOW Urine Turbidity CLEAR Urine pH 7.0 Urine Specific [place] 1.015 Urine Protein 100 mg/dL Urine Glucose (UA) 300 mg/dL Urine Ketones 10 mg/dL Urine Occult Blood TRACE Urine Nitrite NEG Urine Bilirubin NEG Urine Urobilinogen LESS THAN 2.0 MG/DL Urine Leukocyte Esterase NEG Urine RBC 1 /hpf Urine WBC LESS THAN 1 /hpf Urine Mucus FEW /lpf Microscopic Urinalysis Comment CATH-CULT NOT IND Lactic Acid Level 1.6 mmol/L Blood Gas Puncture Site LT RADIAL Blood Gas Patient Temperature 98.6 Venous Blood pH 7.40 Venous Blood Partial Pressure CO2 44 mmHg Venous Blood Partial Pressure O2 31 mmHg Venous Blood HCO3 27 mmol/L Venous Blood Oxygen Saturation 53 % Venous Blood Oxygen Content 10.6 Vol % Venous Blood Base Excess 2.4 mmol/L Oxygen Delivery Device ROOM AIR Blood Gas Inspired Oxygen 21 % Blood Urea Nitrogen 25 MG/DL Creatinine 0.98 MG/DL Random Glucose 282 MG/DL Total Protein 7.8 GM/DL Albumin 3.5 GM/DL Calcium Level 8.7 MG/DL Magnesium Level 1.5 MG/DL Alkaline Phosphatase 83 U/L Aspartate Amino Transf (AST/SGOT) 16 U/L Alanine Aminotransferase (ALT/SGPT) 23 U/L Total Bilirubin 0.5 MG/DL Sodium Level 138 MEQ/L Potassium Level 4.3 MEQ/L Chloride Level 103 MEQ/L Carbon Dioxide Level 25.3 MEQ/L Anion Gap 10 MEQ/L Estimat Glomerular Filtration Rate 76 ML/MIN C-Reactive Protein 0.50 MG/DL Differential Diagnosis UTI versus versus osteomyelitis versus metabolic abnormality versus sepsis versus arrhythmia versus other Narrative Course Patient is a 68-year-old male presenting for evaluation. H&P is limited due to patient's clinical condition. Patient is febrile, he was tachycardic on arrival however he did respond to 500 cc of IV fluids. Sepsis protocol initiated. Patient placed on equipment monitor phototypesetting, continuous pulse oximetry, IV access was established. Patient was soiled with feces from the waist down. Patient was cleaned on arrival. He is not forthcoming with any information at this time. 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 A wound culture was obtained from the left second toe, there was malodorous purulent drainage noted. IV acetaminophen ordered for temp of 101. Patient began to pull at the IV line, attempt to get out of bed. Patient was given Ativan 1 mg IV 1 dose. Chest x-ray shows left lower lobe infiltrate, Rocephin and azithromycin were ordered. Urinalysis unremarkable CBC with a white count of 17.3 with left shift Sed rate is 22, CRP is 0.50 Lactic acid is 1.6 X-ray of the right foot shows resorption of the second and third toe distal phalanges, most acute appearing at the level of the second digit. Extensive chronic changes elsewhere. Chemistry with a BUN of 25, this is improved when compared to prior results. Most notably in December 2017 his BUN was 44 Vital signs are reassessed, temp remains elevated at 101, acetaminophen suppository and Toradol was ordered. CT the brain shows no acute abnormality. Will be admitted this time for pneumonia, cellulitis and abscess of his foot. Patient meets sepsis criteria based on his white blood cell count and his temperature. [facility] paged for admission. Sepsis Criteria SIRS Criteria (2 or more): Temp > 100.9 or < 96.8, WBC > 21340, < 4000 or > 10 % bands Sepsis Criteria (SIRS+source): Infect source susp/known Diagnosis Primary Impression: Pneumonia Qualified Codes: J18.1 - Lobar pneumonia, unspecified organism Additional Impressions: Cellulitis and abscess of foot Sepsis Qualified Codes: A41.9 - Sepsis, unspecified organism Diabetic foot ulcers Ramila Bryant Mar 08, 2018 18:05
[2018-03-08] MEDS ORDERED: ACETAMINOPHEN 1000 MG/100 ML 65 ML IV ONE (18:30)
[2018-03-08] MEDS ORDERED: LORazepam 2 MG/ML VIAL IV PUSH ONE (18:30)
--- NOTE | 2018-03-08 18:36 | RADRPT ---
EXAM DATE/TIME: 03/08/2018 17:50 [facility] COMPARISON: CHEST SINGLE AP, January 06, 2018, 13:02. INDICATIONS : Shortness of breath. MEDICAL HISTORY : Osteoarthritis. Gastroesophageal reflux disease. Arthritis. Megacolon Diabetic SURGICAL HISTORY : Colostomy. ENCOUNTER: Initial ACUITY: 1 day PAIN SCORE: Non-responsive. LOCATION: Bilateral chest FINDINGS: Mild developing opacity in the left lung base. Right lung appears grossly clear. The cardiomediastina l contours are satisfactory for some rotation. CONCLUSION: Mild left base infiltrate Frank Strauss MD on March 08, 2018 at 18:33 Board Certified Radiologist. This report was verified electronically.
[2018-03-08] MEDS ORDERED: cefTRIAXone INJ 2,000 MG in SODIUM CHLORIDE 0.9% INJ 100 ML IV STA (18:41)
[2018-03-08] MEDS ORDERED: AZITHROMYCIN INJ 500 MG in SODIUM CHLOR 0.9% 250 ML INJ 250 ML IV STA (18:41)
--- NOTE | 2018-03-08 18:41 | RADRPT ---
EXAM DATE/TIME: 03/08/2018 18:08 [facility] COMPARISON: FOOT RIGHT COMPLETE ([id number]), January 03, 2018, 12:35. INDICATIONS : Ulcers. MEDICAL HISTORY : Osteoarthritis. Gastroesophageal reflux disease. Arthritis. Diabetes SURGICAL HISTORY : Colostomy. ENCOUNTER: Initial ACUITY: 1 day PAIN SCORE: Non-responsive. LOCATION: Left foot FINDINGS: There are prominent arthritic changes in the ankle and hindfoot. Heart size plantar heel spur is note d. The forefoot, there is significant extension deformity of the toes throughout. There is prominent chronic-appearing deformity of the first metatarsal and metatarsophalangeal joint. There is a circums cribed erosion involving the medial aspect of the first metatarsal. There has been resection or resor ption of the second and third toe distal phalanges with a poorly corticated irregular appearance part icularly of the tip of the bone remaining at the second digit level. CONCLUSION: Resorption of the second and third toe distal phalanges, most acute and appearing at the level of the second digit. Extensive chronic changes elsewhere. Frank Strauss MD on March 08, 2018 at 18:34 Board Certified Radiologist. This report was verified electronically.
[2018-03-08 18:44] VITALS: BP 195/94; PULSE 93; RESP 21; O2SAT 100
[2018-03-08 18:48] LABS: BILIRUBIN, URINE NEG (NEG); BLOOD, URINE TRACE (NEG); GLUCOSE,URINE 300 mg/dL (NEG); KETONE, URINE 10 mg/dL (NEG); MUCUS URINE FEW /lpf (OCC); NITRITE,URINE NEG (NEG); URINE COLOR LIGHT-YELLOW (YELLW/STRAW); URINE LEUKOCYTE ESTERASE NEG (NEG)
[2018-03-08 18:50] LABS: AUTOMATED NEUTROPHIL # 15.7 TH/MM3 (1.8-7.7); BASOPHIL # 0.1 TH/MM3 (0-0.2); BASOPHIL % 0.3 % (0.0-2.0); EOSINOPHIL % 0.1 % (0.0-4.0); HEMATOCRIT 41.7 % (39.0-51.0); HEMOGLOBIN 13.9 GM/DL (13.0-17.0); LYMPH % 5.1 % (9.0-44.0); LYMPHOCYTE # 0.9 TH/MM3 (1.0-4.8); MEAN CORPUSCULAR HEMOGLOBIN 29.4 PG (27.0-34.0); MEAN CORPUSCULAR HGB CONC 33.4 % (32.0-36.0); MONO % 3.5 % (0.0-8.0); MONOCYTE # 0.6 TH/MM3 (0-0.9); PLATELET COUNT 220 TH/MM3 (150-450); RED BLOOD COUNT 4.75 MIL/MM3 (4.50-5.90); RED CELL DISTRIBUTION WIDTH 15.2 % (11.6-17.2); WHITE BLOOD COUNT 17.3 TH/MM3 (4.0-11.0)
[2018-03-08 19:12] LABS: ALBUMIN 3.5 GM/DL (3.4-5.0); ALT (GPT) 23 U/L (12-78); AST (GOT) 16 U/L (15-37); BICARBONATE 25.3 MEQ/L (21.0-32.0); BLOOD UREA NITROGEN 25 MG/DL (7-18); CALCIUM 8.7 MG/DL (8.5-10.1); CHLORIDE 103 MEQ/L (98-107); CREATININE 0.98 MG/DL (0.60-1.30); GLOMERULAR FILTRATION RATE 76 ML/MIN (>89); GLUCOSE,RANDOM 282 MG/DL (74-106); MAGNESIUM 1.5 MG/DL (1.5-2.5); SODIUM (NA) 138 MEQ/L (136-145)
[2018-03-08 19:15] LABS: ALKALINE PHOSPHATASE 83 U/L (45-117); TOTAL BILIRUBIN ADULT 0.5 MG/DL (0.2-1.0); TOTAL PROTEIN 7.8 GM/DL (6.4-8.2)
[2018-03-08 19:30] VITALS: BP 195/89; PULSE 87
[2018-03-08] MEDS ORDERED: METOPROLOL TARTRATE 5 MG/5 ML VIAL IV PUSH ONE (19:30)
[2018-03-08 19:39] VITALS: BP 184/86; PULSE 89; RESP 16; O2SAT 98
[2018-03-08 20:04] LABS: INTERNATIONAL NORMALIZED RATIO 1.2 RATIO; PROTHROMBIN TIME - PATIENT 11.8 SEC (9.8-11.6)
[2018-03-08] MEDS ORDERED: ACETAMINOPHEN 325 MG SUPP RECTAL ONE (21:30)
[2018-03-08] MEDS ORDERED: KETOROLAC TROMETHAMINE 30 MG/ML (IVP) VIAL IV PUSH ONE (21:30)
[2018-03-08 21:48] VITALS: TEMP 101.2
--- NOTE | 2018-03-08 22:38 | RADRPT ---
EXAM DATE/TIME: 03/08/2018 21:45 [facility] COMPARISON: CT BRAIN W/O CONTRAST, February 19, 2017, 0:30. INDICATIONS : Altered mental status; fever. RADIATION DOSE: 56.35 CTDIvol (mGy) MEDICAL HISTORY : Diabetes mellitus type 2. Renal insufficiency. Hypertension.GERD, Atrial fibrillation SURGICAL HISTORY : Colostomy. ENCOUNTER: Initial ACUITY: 1 day PAIN SCALE: 0/10 LOCATION: cranial TECHNIQUE: Multiple contiguous axial images were obtained of the head. Using automated exposure control and adj ustment of the mA and/or kV according to patient size, radiation dose was kept as low as reasonably a chievable to obtain optimal diagnostic quality images. DICOM format image data is available electro nically for review and comparison. FINDINGS: CEREBRUM: The ventricles and cortical sulci are mildly widened. No evidence of midline shift, mass lesion, hem orrhage or acute infarction. No extra-axial fluid collections are seen. POSTERIOR FOSSA: The cerebellum and brainstem are intact. The 4th ventricle is midline. The cerebellopontine angle i s unremarkable. EXTRACRANIAL: The visualized portion of the orbits is intact. SKULL: The calvaria is intact. No evidence of skull fracture. CONCLUSION: No acute disease. Frank Quinones MD on March 08, 2018 at 22:35 Board Certified Radiologist. This report was verified electronically.
[2018-03-08] MEDS ORDERED: Vancomycin Consult Pharmacy 1 EA OTHER SCH (23:00)
[2018-03-08] MEDS ORDERED: ACETAMINOPHEN 325 MG TAB PO PRN (23:00)
[2018-03-08] MEDS ORDERED: ONDANSETRON HCL 4 MG/2 ML VIAL IVP PRN (23:00)
[2018-03-08] MEDS ORDERED: MAGNESIUM HYDROXIDE SUSP 30 ML CUP PO PRN (23:00)
[2018-03-08] MEDS ORDERED: SODIUM CHLORIDE 0.9% FLUSH 10 ML FLUSH IV FLUSH PRN (23:00)
[2018-03-08] MEDS ORDERED: BISACODYL 10 MG SUPP RECTAL PRN (23:00)
[2018-03-08] MEDS ORDERED: SENNOSIDES 8.6 MG TAB PO PRN (23:00)
[2018-03-08] MEDS ORDERED: LACTULOSE SYRUP 20 GM/30 ML CUP PO PRN (23:00)
[2018-03-08 23:23] VITALS: BP 156/74; PULSE 85; RESP 19; TEMP 100.4; O2SAT 98
--- NOTE | 2018-03-08 23:55 | HHI.HP ---
HPI Service [facility] Primary Care Physician Unknown Admission Diagnosis sepsis, pna, cellulitis Diagnoses: (1) Encephalopathy Diagnosis: Principal (2) Sepsis Diagnosis: Principal (3) PNA (pneumonia) Diagnosis: Principal (4) Wound infection Diagnosis: Principal (5) DM (diabetes mellitus) Diagnosis: Principal Travel History International Travel<30 Days: No Contact w/Intl Traveler <30 Da: No History of Present Illness This is a 68-year-old male with a PMH of HTN, A. fib, DM, h/o Megacolon s/p Colostomy and h/o Right Foot Infection who was brought to the ER secondary to AMS. Pt unable to provide any history. Per report, neighbor called 911, upon EMS arrival, pt noted to altered, w/ broken colostomy bag, covered in feces and febrile w/ Temp 101. On arrival, BP 177/87, HR 90, O2 sat 94% RA, Temp 101.5. WBC 17.3. Chemistry essentially unremarkable. INR 1.2. UA negative for UTI. +agitation requiring Ativan for imaging studies. CT Head with no acute findings. CXR with left base infiltrate. Foot X-ray with resorption of second third toe distal phalanges, most acute and appearing at the level of the second digit, extensive chronic changes elsewhere. On exam, foot wound w/ foul- smelling, purulent drainage. S/p Wound/Blood Cultures, Rocephin/Zithr in ER. Review of Systems Except as stated in HPI: all other systems reviewed are Neg ROS: Unable to obtain secondary to AMS Past Family Social History Past Medical History PMH: HTN, A. 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 No h/o DM or CAD Social History PAST SOCIAL HISTORY: Reportedly negative for alcohol, tobacco or drugs Physical Exam Vital Signs Vital Signs Date Time Temp Pulse Resp B/P (MAP) Pulse Ox O2 Delivery O2 Flow Rate FiO2 03/08/18 23:23 100.4 85 19 156/74 (101) 98 Nasal Cannula 2.00 03/08/18 21:48 101.2 03/08/18 19:39 89 16 184/86 (118) 98 Nasal Cannula 03/08/18 19:30 87 195/89 (124) 03/08/18 18:44 93 21 195/94 (127) 100 Nasal Cannula 2.00 03/08/18 18:14 Room Air 03/08/18 17:27 101.5 90 22 177/87 (117) 94 Physical Exam PE: GENERAL: Middle-aged white male in no acute distress, lethargic HEENT: PERRLA, EOMI. No scleral icterus or conjunctival pallor. No lid lag or facial droop. CARDIOVASCULAR: Regular rate and rhythm. No obvious murmurs to auscultation. No chest tenderness to palpation. RESPIRATORY: No obvious rhonchi or wheezing. Clear to auscultation. Breath sounds equal bilaterally. GASTROINTESTINAL: Abdomen soft, non-tender, nondistended. BS normal. MUSCULOSKELETAL: Extremities without clubbing, cyanosis, or edema. No obvious deformities. Left foot w/ purulent drainage 2nd toe. NEUROLOGICAL: Lethargic but arousable, oriented to person, place. No focal neurologic deficits. Moving both upper and lower extremities spontaneously. Laboratory Laboratory Tests Test 03/08/18 17:45 03/08/18 18:19 03/08/18 18:30 White Blood Count 17.3 Red Blood Count 4.75 Hemoglobin 13.9 Hematocrit 41.7 Mean Corpuscular Volume 88.0 Mean Corpuscular Hemoglobin 29.4 Mean Corpuscular Hemoglobin Concent 33.4 Red Cell Distribution Width 15.2 Platelet Count 220 Mean Platelet Volume 9.0 Neutrophils (%) (Auto) 91.0 Lymphocytes (%) (Auto) 5.1 Monocytes (%) (Auto) 3.5 Eosinophils (%) (Auto) 0.1 Basophils (%) (Auto) 0.3 Neutrophils # (Auto) 15.7 Lymphocytes # (Auto) 0.9 Monocytes # (Auto) 0.6 Eosinophils # (Auto) 0.0 Basophils # (Auto) 0.1 CBC Comment DIFF FINAL Differential Comment Erythrocyte Sedimentation Rate 22 Prothrombin Time 11.8 Prothromb Time International Ratio 1.2 Activated Partial Thromboplast Time 22.6 Urine Color LIGHT-YELLOW Urine Turbidity CLEAR Urine pH 7.0 Urine Specific [place] 1.015 Urine Protein 100 Urine Glucose (UA) 300 Urine Ketones 10 Urine Occult Blood TRACE Urine Nitrite NEG Urine Bilirubin NEG Urine Urobilinogen LESS THAN 2.0 Urine Leukocyte Esterase NEG Urine RBC 1 Urine WBC LESS THAN 1 Urine Mucus FEW Microscopic Urinalysis Comment CATH-CULT NOT IND Lactic Acid Level 1.6 Blood Gas Puncture Site LT RADIAL Blood Gas Patient Temperature 98.6 Venous Blood pH 7.40 Venous Blood Partial Pressure CO2 44 Venous Blood Partial Pressure O2 31 Venous Blood HCO3 27 Venous Blood Oxygen Saturation 53 Venous Blood Oxygen Content 10.6 Venous Blood Base Excess 2.4 Oxygen Delivery Device ROOM AIR Blood Gas Inspired Oxygen 21 Blood Urea Nitrogen 25 Creatinine 0.98 Random Glucose 282 Total Protein 7.8 Albumin 3.5 Calcium Level 8.7 Magnesium Level 1.5 Alkaline Phosphatase 83 Aspartate Amino Transf (AST/SGOT) 16 Alanine Aminotransferase (ALT/SGPT) 23 Total Bilirubin 0.5 Sodium Level 138 Potassium Level 4.3 Chloride Level 103 Carbon Dioxide Level 25.3 Anion Gap 10 Estimat Glomerular Filtration Rate 76 C-Reactive Protein 0.50 Date/Time Source Procedure Growth Status 03/08/18 18:00 Blood Peripheral Aerobic Blood Culture Pending Received 03/08/18 18:00 Blood Peripheral Anaerobic Blood Culture Pending Received 03/08/18 18:50 Wound Foot Gram Stain Pending Received 03/08/18 18:50 Wound Foot Wound Culture Pending Received Result Diagram: 03/08/18 1745 03/08/18 1830 Caprini VTE Risk Assessment Caprini VTE Risk Assessment: No/Low Risk (score <= 1) Caprini Risk Assessment Model Point Value = 1 Point Value = 2 Point Value = 3 Point Value = 5 Age 41-60 Minor surgery BMI > 25 kg/m2 Swollen legs Varicose veins or History of unexplained or recurrent spontaneous Oral contraceptives or hormone replacement Sepsis (< 1 month) Serious lung disease, including pneumonia (< 1 month) Abnormal pulmonary function Acute myocardial infarction Congestive heart failure (< 1 month) History of inflammatory bowel disease Medical patient at bed rest Age 61-74 Arthroscopic surgery Major open surgery (> 45 min) Laparoscopic surgery (> 45 min) Malignancy Confined to bed (> 72 hours) Immobilizing plaster cast Central venous access Age >= 75 History of VTE Family history of VTE Factor V Leiden Prothrombin [id number] Lupus anticoagulant Anticardiolipin antibodies Elevated serum homocysteine Heparin-induced thrombocytopenia Other congenital or acquired thrombophilia Stroke (< 1 month) Elective arthroplasty Hip, pelvis, or leg fracture Acute spinal cord injury (< 1 month) Prophylaxis Regimen Total Risk Factor Score Risk Level Prophylaxis Regimen 0-1 Low Early ambulation 2 Moderate Order ONE of the following: *Sequential Compression Device (SCD) *Heparin 5000 units SQ BID 3-4 Higher Order ONE of the following medications: *Heparin 5000 units SQ TID *Enoxaparin/Lovenox 40 mg SQ daily (WT < 150 kg, CrCl > 30 mL/min) *Enoxaparin/Lovenox 30 mg SQ daily (WT < 150 kg, CrCl > 10-29 mL/min) *Enoxaparin/Lovenox 30 mg SQ BID (WT < 150 kg, CrCl > 30 mL/min) AND/OR *Sequential Compression Device (SCD) 5 or more Highest Order ONE of the following medications: *Heparin 5000 units SQ TID (Preferred with Epidurals) *Enoxaparin/Lovenox 40 mg SQ daily (WT < 150 kg, CrCl > 30 mL/min) *Enoxaparin/Lovenox 30 mg SQ daily (WT < 150 kg, CrCl > 10-29 mL/min) *Enoxaparin/Lovenox 30 mg SQ BID (WT < 150 kg, CrCl > 30 mL/min) AND *Sequential Compression Device (SCD) Assessment and Plan Problem List: (1) Sepsis ICD Code: A41.9 - Sepsis, unspecified organism (2) PNA (pneumonia) ICD Code: J18.9 - Pneumonia, unspecified organism (3) Wound infection ICD Code: T14.8XXA - Other injury of unspecified body region, initial encounter ; L08.9 - Local infection of the skin and subcutaneous tissue, unspecified (4) Encephalopathy ICD Code: G93.40 - Encephalopathy, unspecified Status: Acute (5) DM (diabetes mellitus) ICD Code: E11.9 - Type 2 diabetes mellitus without complications Assessment and Plan A/P: 1. Sepsis: Temp 101.5, HR 90, WBC 17, Source-PNA/Foot Infection. S/p Wound/ Blood Cultures, Rocephin/Zithro in ER, will increase antibiotic coverage to Vanc /Cefepime, follow up cultures. Consult ID as needed. 2. PNA: CXR w/ left base consolidation, images reviewed by me. Continue w/ IV Abx, DuoNeb prn. 3. Wound Infection: left foot w/ foul-smelling, purulent drainage, consult Podiatry for further evaluation/surgical intervention. Wound Management. 4. Encephalopathy: Baseline unknown, lives alone per report, +lethargic, possibly due to underlying Sepsis. CT Head w/ no acute findings, images reviewed by me. Check Urine Drug Screen. Neuro Checks. 5. DM: Sliding scale w/ Accu-Cheks 6. Social work for d/c planning as needed. 7. Case discussed w/ ER physician at length, labs/records/imaging reviewed by me Physician Certification 2 Midnight Certification Type: Admission for Inpatient Services Order for Inpatient Services The services are ordered in accordance with Medicare regulations or non- Medicare payer requirements, as applicable. In the case of services not specified as inpatient-only, they are appropriately provided as inpatient services in accordance with the 2-midnight benchmark. Estimated LOS (days): 2 days is the estimated time the patient will need to remain in the hospital, assuming treatment plan goals are met and no additional complications. Post-Hospital Plan: Not yet determined Lali Lee MD Mar 08, 2018 23:55
[2018-03-09] VITALS (8 sets, daily range): BP systolic 129–199; BP diastolic 67–95; PULSE 66–94; RESP 18–20; TEMP 97.9–99.2; O2SAT 96–98
[2018-03-09] MEDS ORDERED: VANCOMYCIN 0 MG/NS 500 ML IV SCH ×2
[2018-03-09] MEDS: SODIUM CHLOR 0.9% 1000 ML INJ 1,000 ML IV SCH ×3 (00:22→14:31)
[2018-03-09] MEDS ORDERED: GLUCAGON 1 MG/ML VIAL OTHER PRN (01:15)
[2018-03-09] MEDS ORDERED: DEXTROSE 50% IN WATER 50 ML VIAL(D50) IV PUSH PRN (01:15)
[2018-03-09] MEDS: DOCUSATE SODIUM 50 MG/SENNA 8.6 MG TAB PO SCH ×2 (08:22→21:00)
[2018-03-09] MEDS: SODIUM CHLORIDE 0.9% FLUSH 10 ML FLUSH IV FLUSH SCH ×2 (08:23→21:00)
[2018-03-09] MEDS: HEPARIN SODIUM - SQ 10,000 UNITS/ML VIAL SQ SCH ×2 (08:23→22:50)
[2018-03-09] MEDS: INSULIN ASPART SUPPLEMENTAL SCALE SQ SCH ×4 (08:24→22:52)
[2018-03-09] MEDS ORDERED: CEFEPIME INJ 1,000 MG in SODIUM CHLORIDE 0.9% INJ 100 ML IV SCH (09:00)
[2018-03-09 10:27] LABS: AUTOMATED NEUTROPHIL # 10.4 TH/MM3 (1.8-7.7); BASOPHIL # 0.1 TH/MM3 (0-0.2); BASOPHIL % 0.5 % (0.0-2.0); EOSINOPHIL % 0.2 % (0.0-4.0); HEMATOCRIT 39.3 % (39.0-51.0); HEMOGLOBIN 13.3 GM/DL (13.0-17.0); LYMPH % 13.2 % (9.0-44.0); LYMPHOCYTE # 1.8 TH/MM3 (1.0-4.8); MEAN CELL VOLUME 86.6 FL (80.0-100.0); MEAN CORPUSCULAR HEMOGLOBIN 29.3 PG (27.0-34.0); MEAN CORPUSCULAR HGB CONC 33.8 % (32.0-36.0); MEAN PLATELET VOLUME 8.7 FL (7.0-11.0); MONO % 7.2 % (0.0-8.0); NEUT % 78.9 % (16.0-70.0); PLATELET COUNT 229 TH/MM3 (150-450); RED BLOOD COUNT 4.54 MIL/MM3 (4.50-5.90); RED CELL DISTRIBUTION WIDTH 15.1 % (11.6-17.2); WHITE BLOOD COUNT 13.2 TH/MM3 (4.0-11.0)
--- NOTE | 2018-03-09 10:36 | EKG ---
Date Performed: 03/08/2018 Time Performed: 18:47:12 PTAGE: 68 years EKG: Sinus rhythm WITH FREQUENT SUPRAVENTRICULAR PREMATURE COMPLEXES ABNORMAL RHYTHM ECG Since the PREVIOUS TRACING , no significant change noted PREVIOUS TRACIN01/03/2018 05.24 DOCTOR: Rai Vale Interpretating Date/Time 03/09/2018 10:32:35
[2018-03-09 10:54] LABS: ALBUMIN 3.1 GM/DL (3.4-5.0); AST (GOT) 13 U/L (15-37); BICARBONATE 25.3 MEQ/L (21.0-32.0); BLOOD UREA NITROGEN 20 MG/DL (7-18); CALCIUM 8.4 MG/DL (8.5-10.1); CHLORIDE 104 MEQ/L (98-107); CREATININE 0.83 MG/DL (0.60-1.30); GLOMERULAR FILTRATION RATE 92 ML/MIN (>89); GLUCOSE,RANDOM 192 MG/DL (74-106); SODIUM (NA) 137 MEQ/L (136-145)
[2018-03-09 11:07] LABS: ALKALINE PHOSPHATASE 71 U/L (45-117); ALT (GPT) 19 U/L (12-78); TOTAL BILIRUBIN ADULT 0.6 MG/DL (0.2-1.0); TOTAL PROTEIN 7.4 GM/DL (6.4-8.2)
--- NOTE | 2018-03-09 14:08 | HHI.PR ---
Subjective Remarks Patient seen this morning. Says he is feeling better than on admission. Denies any chest pain or shortness of breath. Objective Vital Signs Date Time Temp Pulse Resp B/P (MAP) Pulse Ox O2 Delivery O2 Flow Rate FiO2 03/09/18 12:00 98.5 66 18 129/67 (87) 96 03/09/18 08:03 70 03/09/18 08:00 98.6 73 18 150/77 (101) 98 03/09/18 05:32 99.2 84 18 173/81 (111) 96 03/09/18 00:00 97.9 94 18 166/83 (110) 96 03/08/18 23:23 100.4 85 19 156/74 (101) 98 Nasal Cannula 2.00 03/08/18 21:48 101.2 03/08/18 19:39 89 16 184/86 (118) 98 Nasal Cannula 03/08/18 19:30 87 195/89 (124) 03/08/18 18:44 93 21 195/94 (127) 100 Nasal Cannula 2.00 03/08/18 18:14 Room Air 03/08/18 17:27 101.5 90 22 177/87 (117) 94 I/O 03/08/18 03/08/18 03/08/18 03/09/18 03/09/18 03/09/18 07:00 15:00 23:00 07:00 15:00 23:00 Output Total 300 ml 1000 ml Balance -300 ml -1000 ml Output Urine Total 300 ml 1000 ml Result Diagram: 03/09/18 0930 03/09/18 0930 Objective Remarks GENERAL: Sitting up in bed. Appears comfortable. SKIN: Warm and dry. HEAD: Normocephalic. EYES: No scleral icterus. No injection or drainage. NECK: Supple, trachea midline. No JVD. CARDIOVASCULAR: Regular rate and rhythm without murmurs, gallops, or rubs. RESPIRATORY: Breath sounds equal bilaterally. No accessory muscle use. GASTROINTESTINAL: Abdomen soft, non-tender, nondistended. MUSCULOSKELETAL: No cyanosis, or edema. Left second and third toe is macerated skin. 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 No CVA tenderness. A/P Assessment and Plan //Sepsis: Temp 101.5, HR 90, WBC 17, Source-PNA/Foot Infection. S/p Wound/ Blood Cultures, Rocephin/Zithro in ER, will increase antibiotic coverage to Vanc /Cefepime, follow up cultures. Consult ID as needed. = 03/09. Still with fever 100.4 last night. White count continues elevated 13.2. Continue broad-spectrum antibiotics for right diabetic foot infection // PNA: CXR w/ left base consolidation, images reviewed by me. Continue w/ IV Abx, DuoNeb prn. //Diabetic foot infection = Bilaterally: left foot w/ foul-smelling, purulent drainage of second toe = Also with erythema surrounding previous right fifth ray amputation surgical scar. =Consult Podiatry for further evaluation/surgical intervention. Wound Management. // Encephalopathy: Baseline unknown, lives alone per report, +lethargic, possibly due to underlying Sepsis. CT Head w/ no acute findings, images reviewed by me. Check Urine Drug Screen. Neuro Checks. = Much improved. Likely was exacerbated by sepsis. Continue to monitor. //Diabetes mellitus. Start on diabetic diet and insulin sliding scale. //DM: Sliding scale w/ Accu-Cheks Discharge Planning Continue treatment for sepsis, diabetic foot wound Mich Deleon MD Mar 09, 2018 14:08
[2018-03-09] MEDS ORDERED: Vancomycin Consult Pharmacy 1 EA OTHER SCH (14:15)
[2018-03-09] MEDS: PIPERACIL-TAZO 4.5 GM PREMIX 100 ML IV SCH ×2 (14:31→22:49)
--- NOTE | 2018-03-09 14:51 | PD.CONS ---
History of Present Illness Service Infectious disease Consult Requested By Dr Deleon Reason for Consult Evaluate patient with diabetic foot infection, sepsis Primary Care Physician Unknown Diagnoses: History of Present Illness Patient seen and examined. Records reviewed. Patient is a 68-year-old male, admitted to the hospital, after his neighbor found him with confusion, and with a broken colostomy bag, and he was covered in feces. He also had a temperature of 101. Patient is not a good historian. According to him his nephew has been living with her because he has not been able to take care of himself. The nephew is not available for any further history. Patient was febrile in the emergency room. His WBC was 17,000. Urinalysis was unremarkable. Patient currently still does not give any good history. He was noted to have some draining wounds on his left foot with foul- smelling drainage. Chest x-ray has a left base opacity. CT of the head did not show any acute findings. X-ray of the left foot showing resorption of the distal phalanges of the second and third toes. Infectious disease consultation has been requested to evaluate the patient. He is currently afebrile, and his WBC is better. Review of Systems Constitutional: COMPLAINS OF: Fever, Chills Eyes: DENIES: Eye pain, Vision loss Ears, nose, mouth, throat: DENIES: Nasal discharge, Oral lesions, Throat pain, Ear Pain, Sinus Pain Respiratory: DENIES: Cough, Shortness of breath Cardiovascular: DENIES: Chest pain, Palpitations Gastrointestinal: DENIES: Abdominal pain, Constipation, Nausea, Vomiting, Difficulty Swallowing Genitourinary: DENIES: Urgency, Hematuria, Dysuria Integumentary: DENIES: Rash Neurologic: DENIES: Localized weakness Psychiatric: COMPLAINS OF: Confusion, DENIES: Hallucinations Past Family Social History Allergies: Coded Allergies: Influenza Virus Vaccines (Verified Allergy, Severe, Anaphylaxis, 01/02/18) *MDRO Multi-Drug Resistant Organism (Verified Adverse Reaction, Unknown, ) 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 coli and anaerobes Active Ordered Medications Current Medications Medications (Trade) Dose Ordered Sig/Jeremias Route Start Time Stop Time Status Last Admin Pharmacy Profile Note 0 ml @ 0 mls/hr UNSCH OTHER 03/08/18 23:00 Sodium Chloride 1,000 ml @ 100 mls/hr Q10H IV 03/08/18 22:59 03/09/18 14:31 (NS Flush) 2 ml UNSCH PRN IV FLUSH 03/08/18 23:00 (NS Flush) 2 ml BID IV FLUSH 03/09/18 09:00 03/09/18 08:23 (Zofran Inj) 4 mg Q6H PRN IVP 03/08/18 23:00 (Tylenol) 650 mg Q6H PRN PO 03/08/18 23:00 (Diane-Colace) 1 tab BID PO 03/09/18 09:00 03/09/18 08:22 (Milk Of Magnesia Liq) 30 ml Q12H PRN PO 03/08/18 23:00 (Senokot) 17.2 mg Q12H PRN PO 03/08/18 23:00 (Dulcolax Supp) 10 mg DAILY PRN RECTAL 03/08/18 23:00 (Lactulose Liq) 30 ml DAILY PRN PO 03/08/18 23:00 (Heparin Inj) 5,000 units Q12HR SQ 03/09/18 09:00 03/09/18 08:23 (D50w (Vial) Inj) 50 ml UNSCH PRN IV PUSH 03/09/18 01:15 (Glucagon Inj) 1 mg UNSCH PRN OTHER 03/09/18 01:15 (NovoLOG SUPPLEMENTAL SCALE) 1 ACHS SLIDING SCALE SQ 03/09/18 08:00 03/09/18 12:55 Vancomycin HCl 1750 mg/Sodium Chloride 517.5 ml @ 250 mls/hr Q12H IV 03/09/18 16:00 Miscellaneous Information SPECIFIC LAB TO BE [facility]... ONCE ONCE .XX 03/11/18 03:45 03/11/18 03:46 Piperacillin Sod/ Tazobactam Sod 100 ml @ 200 mls/hr Q6H IV 03/09/18 14:00 03/09/18 14:31 Family History Unremarkable Social History Lives alone, but nephew staying with him currently Denies smoking Denies alcohol abuse Denies illicit drugs Physical Exam Vital Signs Vital Signs Date Time Temp Pulse Resp B/P (MAP) Pulse Ox O2 Delivery O2 Flow Rate FiO2 03/09/18 12:04 70 03/09/18 12:00 98.5 66 18 129/67 (87) 96 03/09/18 08:03 70 03/09/18 08:00 98.6 73 18 150/77 (101) 98 03/09/18 05:32 99.2 84 18 173/81 (111) 96 03/09/18 00:00 97.9 94 18 166/83 (110) 96 03/08/18 23:23 100.4 85 19 156/74 (101) 98 Nasal Cannula 2.00 03/08/18 21:48 101.2 03/08/18 19:39 89 16 184/86 (118) 98 Nasal Cannula 03/08/18 19:30 87 195/89 (124) 03/08/18 18:44 93 21 195/94 (127) 100 Nasal Cannula 2.00 03/08/18 18:14 Room Air 03/08/18 17:27 101.5 90 22 177/87 (117) 94 Physical Exam GENERAL: Patient is a well-nourished, well-developed male, awake and alert, not in respiratory distress. SKIN: Warm and dry. No generalized rash, no ecchymoses and no evidence of embolic lesions. HEAD: Atraumatic. Normocephalic. No temporal wasting, or tenderness. EYES: [place] conjunctiva. No petechia or hemorrhage. Pupils equal, round and reactive to light. Extraocular movements full and intact. No scleral icterus. No injection or drainage. EARS, NOSE AND THROAT: Nose without bleeding or purulent nasal discharge. No sinus tenderness. Mucous membranes pink and moist. No oral lesions noted. No exudate. No oral thrush. NECK: Trachea midline. Supple and not tender, no meningeal signs CARDIOVASCULAR: Regular rate and rhythm. No murmurs, rubs or gallops heard RESPIRATORY: Clear to auscultation. Breath sounds equal bilaterally. No rales , wheezing or rhonchi ABDOMEN: Soft, non-tender, nondistended. Bowel sounds present and normoactive. No guarding. No rebound. No organomegaly. EXTREMITIES: No clubbing, cyanosis, or edema. No joint effusion, has good ROM. No calf tenderness. Well perfused and warm. L foot, has callus tip of 2nd toe, and wound on medial 3rd toe, with open wounds draining reddish brown fluid with some purulence and odor NEUROLOGICAL: Awake and alert. Cranial nerves grossly intact. Motor grossly within normal limits. PSYCHIATRIC: Normal affect, calm and cooperative. LINE: No evidence of infection Laboratory Laboratory Tests Test 03/08/18 17:45 03/08/18 18:19 03/08/18 18:30 03/09/18 09:30 White Blood Count 17.3 13.2 Red Blood Count 4.75 4.54 Hemoglobin 13.9 13.3 Hematocrit 41.7 39.3 Mean Corpuscular Volume 88.0 86.6 Mean Corpuscular Hemoglobin 29.4 29.3 Mean Corpuscular Hemoglobin Concent 33.4 33.8 Red Cell Distribution Width 15.2 15.1 Platelet Count 220 229 Mean Platelet Volume 9.0 8.7 Neutrophils (%) (Auto) 91.0 78.9 Lymphocytes (%) (Auto) 5.1 13.2 Monocytes (%) (Auto) 3.5 7.2 Eosinophils (%) (Auto) 0.1 0.2 Basophils (%) (Auto) 0.3 0.5 Neutrophils # (Auto) 15.7 10.4 Lymphocytes # (Auto) 0.9 1.8 Monocytes # (Auto) 0.6 1.0 Eosinophils # (Auto) 0.0 0.0 Basophils # (Auto) 0.1 0.1 CBC Comment DIFF FINAL DIFF FINAL Differential Comment Erythrocyte Sedimentation Rate 22 Prothrombin Time 11.8 Prothromb Time International Ratio 1.2 Activated Partial Thromboplast Time 22.6 Urine Color LIGHT-YELLOW Urine Turbidity CLEAR Urine pH 7.0 Urine Specific [place] 1.015 Urine Protein 100 Urine Glucose (UA) 300 Urine Ketones 10 Urine Occult Blood TRACE Urine Nitrite NEG Urine Bilirubin NEG Urine Urobilinogen LESS THAN 2.0 Urine Leukocyte Esterase NEG Urine RBC 1 Urine WBC LESS THAN 1 Urine Mucus FEW Microscopic Urinalysis Comment CATH-CULT NOT IND Lactic Acid Level 1.6 Urine Opiates Screen NEG Urine Barbiturates Screen NEG Urine Amphetamines Screen NEG Urine Benzodiazepines Screen NEG Urine Cocaine Screen NEG Urine Cannabinoids Screen NEG Blood Gas Puncture Site LT RADIAL Blood Gas Patient Temperature 98.6 Venous Blood pH 7.40 Venous Blood Partial Pressure CO2 44 Venous Blood Partial Pressure O2 31 Venous Blood HCO3 27 Venous Blood Oxygen Saturation 53 Venous Blood Oxygen Content 10.6 Venous Blood Base Excess 2.4 Oxygen Delivery Device ROOM AIR Blood Gas Inspired Oxygen 21 Blood Urea Nitrogen 25 20 Creatinine 0.98 0.83 Random Glucose 282 192 Total Protein 7.8 7.4 Albumin 3.5 3.1 Calcium Level 8.7 8.4 Magnesium Level 1.5 Alkaline Phosphatase 83 71 Aspartate Amino Transf (AST/SGOT) 16 13 Alanine Aminotransferase (ALT/SGPT) 23 19 Total Bilirubin 0.5 0.6 Sodium Level 138 137 Potassium Level 4.3 3.5 Chloride Level 103 104 Carbon Dioxide Level 25.3 25.3 Anion Gap 10 8 Estimat Glomerular Filtration Rate 76 92 C-Reactive Protein 0.50 Date/Time Source Procedure Growth Status 03/08/18 18:00 Blood Peripheral Aerobic Blood Culture - Preliminary NO GROWTH IN 1 DAY Resulted 03/08/18 18:00 Blood Peripheral Anaerobic Blood Culture - Preliminary NO GROWTH IN 1 DAY Resulted 03/08/18 18:50 Wound Foot Gram Stain - Final Resulted 03/08/18 18:50 Wound Foot Wound Culture - Preliminary Resulted Result Diagram: 03/09/18 0930 03/09/18 0930 Imaging RADIOLOGY STUDIES/FILMS REVIEWED Last Impressions Foot X-Ray 03/08/18 1811 Signed Impressions: Service Date/Time: Thursday, March 08, 2018 18:08 - CONCLUSION: Resorption of the second and third toe distal phalanges, most acute and appearing at the level of the second digit. Extensive chronic changes elsewhere. Frank Strauss MD Chest X-Ray 03/08/18 1725 Signed Impressions: Service Date/Time: Thursday, March 08, 2018 17:50 - CONCLUSION: Mild left base infiltrate Frank Strauss MD Head CT 03/08/18 0000 Signed Impressions: Service Date/Time: Thursday, March 08, 2018 21:45 - CONCLUSION: No acute disease. Frank Quinones MD Assessment and Plan Assessment and Plan IMPRESSION Sepsis present on admission - source ?DFI L foot - has opacity L lung, currently no PNA symptoms DM Episode of R DFI December 2017 RECOMMENDATION Follow C/S Podiatry to evaluate L foot Continue vanco (cover MRSA and other GPC) Continue Zosyn (Cover GNR,, including PSAE and anaerobes) Follow temps Monitor progress I will follow along with you Thank you for this consultation Yaquelin Escalera MD Mar 09, 2018 14:51
--- NOTE | 2018-03-09 15:35 | RADRPT ---
EXAM DATE/TIME: 03/09/2018 14:41 [facility] COMPARISON: FOOT RIGHT LIMITED (2VWS), January 02, 2018, 19:54. INDICATIONS : Right foot pain post right foot surgery for diabetic infection. MEDICAL HISTORY : Diabetes mellitus type II. SURGICAL HISTORY : Right foot surgery. ENCOUNTER: Subsequent ACUITY: 2 months PAIN SCORE: Non-responsive. LOCATION: Right foot. FINDINGS: Two view examination of the right foot demonstrates a stable, old healed fracture deformities of the first, second and third metatarsals. Osteoarthritic changes are seen in multiple interphalangeal join ts. On the prior exam, air in the tissues surrounding the fifth metatarsal head with irregularity of the same were concerning for osteomyelitis. Patient was status post amputation of the phalanges of th e fifth ray. Patient now has a more proximal amputation through the of the fifth metatarsal. Overlyin g soft tissues appear to be intact with no obvious plain film findings of osteomyelitis. Lateral imag es show a calcaneal spur at the plantar aponeurosis is some calcification of the aponeurosis itself. CONCLUSION: 1. Interval more proximal amputation through the diaphysis of the fifth metatarsal. 2. Old healed fracture deformities of the first through third metatarsals. Stable degenerative osteoa rthritic changes of multiple interphalangeal joints. 3. Small calcaneal spur at the plantar aponeurosis with probable calcification of the aponeurosis its elf. 4. No plain film findings of osteomyelitis or soft tissue ulceration Bj Meza MD on March 09, 2018 at 15:27 Board Certified Radiologist. This report was verified electronically.
[2018-03-09] MEDS: VANCOMYCIN INJ 1,750 MG in SODIUM CHLORID 0.9% 500 ML INJ 500 ML IV SCH (15:54)
[2018-03-09] MEDS ORDERED: ENALAPRILAT 2.5 MG/2 ML VIAL IV PUSH PRN (22:00)
[2018-03-10] VITALS: BP 196/94; PULSE 77; RESP 18; TEMP 98.3; O2SAT 95
[2018-03-10] MEDS: PIPERACIL-TAZO 4.5 GM PREMIX 100 ML IV SCH ×2 (03:00→08:30)
[2018-03-10 04:00] VITALS: BP 174/82; PULSE 76; RESP 20; TEMP 98.3; O2SAT 96
[2018-03-10] MEDS: VANCOMYCIN INJ 1,750 MG in SODIUM CHLORID 0.9% 500 ML INJ 500 ML IV SCH ×2 (05:51→16:32)
[2018-03-10] MEDS: SODIUM CHLOR 0.9% 1000 ML INJ 1,000 ML IV SCH (05:52)
[2018-03-10 08:00] VITALS: BP 165/79; PULSE 72; RESP 16; TEMP 99.2; O2SAT 95
[2018-03-10] MEDS: DOCUSATE SODIUM 50 MG/SENNA 8.6 MG TAB PO SCH ×2 (08:30→22:10)
[2018-03-10] MEDS: SODIUM CHLORIDE 0.9% FLUSH 10 ML FLUSH IV FLUSH SCH ×2 (08:30→22:11)
[2018-03-10] MEDS: HEPARIN SODIUM - SQ 10,000 UNITS/ML VIAL SQ SCH ×3 (08:30→22:11)
[2018-03-10] MEDS: INSULIN ASPART SUPPLEMENTAL SCALE SQ SCH ×4 (08:31→22:11)
[2018-03-10 12:00] VITALS: BP 156/96; PULSE 59; RESP 16; TEMP 98.5; O2SAT 96
--- NOTE | 2018-03-10 12:57 | HHI.IDPN ---
Subjective Subjective Remarks Patient is a 68-year-old male, admitted to the hospital, after his neighbor found him with confusion, and with a broken colostomy bag, and he was covered in feces. He also had a temperature of 101. Patient is not a good historian. According to him his nephew has been living with her because he has not been able to take care of himself. The nephew is not available for any further history. Patient was febrile in the emergency room. His WBC was 17,000. Urinalysis was unremarkable. Patient currently still does not give any good history. He was noted to have some draining wounds on his left foot with foul- smelling drainage. Chest x-ray has a left base opacity. CT of the head did not show any acute findings. X-ray of the left foot showing resorption of the distal phalanges of the second and third toes. Infectious disease consultation has been requested to evaluate the patient. He is currently afebrile, and his WBC is better. Notes reviewed [place] Podiatry consult pending Wound C/S - normal skin ino, mixed enterics including proteus, cannot R/O anaerobes due to Proteus Poor historian Still thinks he has problem with R foot Antibiotics Vancomycin Zosyn Current Medications Medications (Trade) Dose Ordered Sig/Jeremias Route Start Time Stop Time Status Last Admin Pharmacy Profile Note 0 ml @ 0 mls/hr UNSCH OTHER 03/08/18 23:00 Sodium Chloride 1,000 ml @ 100 mls/hr Q10H IV 03/08/18 22:59 03/10/18 05:52 (NS Flush) 2 ml UNSCH PRN IV FLUSH 03/08/18 23:00 (NS Flush) 2 ml BID IV FLUSH 03/09/18 09:00 03/09/18 08:23 (Zofran Inj) 4 mg Q6H PRN IVP 03/08/18 23:00 (Tylenol) 650 mg Q6H PRN PO 03/08/18 23:00 (Diane-Colace) 1 tab BID PO 03/09/18 09:00 03/10/18 08:30 (Milk Of Magnesia Liq) 30 ml Q12H PRN PO 03/08/18 23:00 (Senokot) 17.2 mg Q12H PRN PO 03/08/18 23:00 (Dulcolax Supp) 10 mg DAILY PRN RECTAL 03/08/18 23:00 (Lactulose Liq) 30 ml DAILY PRN PO 03/08/18 23:00 (Heparin Inj) 5,000 units Q12HR SQ 03/09/18 09:00 03/10/18 08:30 (D50w (Vial) Inj) 50 ml UNSCH PRN IV PUSH 03/09/18 01:15 (Glucagon Inj) 1 mg UNSCH PRN OTHER 03/09/18 01:15 (NovoLOG SUPPLEMENTAL SCALE) 1 ACHS SLIDING SCALE SQ 03/09/18 08:00 03/10/18 08:31 Vancomycin HCl 1750 mg/Sodium Chloride 517.5 ml @ 250 mls/hr Q12H IV 03/09/18 16:00 03/10/18 05:51 Miscellaneous Information SPECIFIC LAB TO BE [facility]... ONCE ONCE .XX 03/11/18 03:45 03/11/18 03:46 Piperacillin Sod/ Tazobactam Sod 100 ml @ 200 mls/hr Q6H IV 03/09/18 14:00 03/10/18 08:30 (Vasotec Inj) 2.5 mg Q6H PRN IV PUSH 03/09/18 22:00 03/09/18 22:47 Lines Line no evidence of infection Past Medical History HTN A. 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 coli and anaerobes Allergies: Coded Allergies: Influenza Virus Vaccines (Verified Allergy, Severe, Anaphylaxis, 01/02/18) *MDRO Multi-Drug Resistant Organism (Verified Adverse Reaction, Unknown, ) 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 Objective . Vital Signs Date Time Temp Pulse Resp B/P (MAP) Pulse Ox O2 Delivery O2 Flow Rate FiO2 03/10/18 08:00 99.2 72 16 165/79 (107) 95 03/10/18 04:00 98.3 76 20 174/82 (112) 96 03/10/18 00:00 98.3 77 18 196/94 (128) 95 03/09/18 20:00 98.1 74 20 199/95 (129) 96 03/09/18 16:00 98.8 67 18 168/88 (114) 96 . Laboratory Tests Test 03/08/18 17:45 03/09/18 09:30 White Blood Count 17.3 TH/MM3 13.2 TH/MM3 Red Blood Count 4.75 MIL/MM3 4.54 MIL/MM3 Hemoglobin 13.9 GM/DL 13.3 GM/DL Hematocrit 41.7 % 39.3 % Mean Corpuscular Volume 88.0 FL 86.6 FL Mean Corpuscular Hemoglobin 29.4 PG 29.3 PG Mean Corpuscular Hemoglobin Concent 33.4 % 33.8 % Red Cell Distribution Width 15.2 % 15.1 % Platelet Count 220 TH/MM3 229 TH/MM3 Mean Platelet Volume 9.0 FL 8.7 FL Neutrophils (%) (Auto) 91.0 % 78.9 % Lymphocytes (%) (Auto) 5.1 % 13.2 % Monocytes (%) (Auto) 3.5 % 7.2 % Eosinophils (%) (Auto) 0.1 % 0.2 % Basophils (%) (Auto) 0.3 % 0.5 % Neutrophils # (Auto) 15.7 TH/MM3 10.4 TH/MM3 Lymphocytes # (Auto) 0.9 TH/MM3 1.8 TH/MM3 Monocytes # (Auto) 0.6 TH/MM3 1.0 TH/MM3 Eosinophils # (Auto) 0.0 TH/MM3 0.0 TH/MM3 Basophils # (Auto) 0.1 TH/MM3 0.1 TH/MM3 CBC Comment DIFF FINAL DIFF FINAL Differential Comment Erythrocyte Sedimentation Rate 22 mm/hr Laboratory Tests Test 03/08/18 17:45 03/08/18 18:30 03/09/18 09:30 Lactic Acid Level 1.6 mmol/L Blood Urea Nitrogen 25 MG/DL 20 MG/DL Creatinine 0.98 MG/DL 0.83 MG/DL Random Glucose 282 MG/DL 192 MG/DL Total Protein 7.8 GM/DL 7.4 GM/DL Albumin 3.5 GM/DL 3.1 GM/DL Calcium Level 8.7 MG/DL 8.4 MG/DL Magnesium Level 1.5 MG/DL Alkaline Phosphatase 83 U/L 71 U/L Aspartate Amino Transf (AST/SGOT) 16 U/L 13 U/L Alanine Aminotransferase (ALT/SGPT) 23 U/L 19 U/L Total Bilirubin 0.5 MG/DL 0.6 MG/DL Sodium Level 138 MEQ/L 137 MEQ/L Potassium Level 4.3 MEQ/L 3.5 MEQ/L Chloride Level 103 MEQ/L 104 MEQ/L Carbon Dioxide Level 25.3 MEQ/L 25.3 MEQ/L Anion Gap 10 MEQ/L 8 MEQ/L Estimat Glomerular Filtration Rate 76 ML/MIN 92 ML/MIN C-Reactive Protein 0.50 MG/DL Microbiology Date/Time Source Procedure Growth Status 03/08/18 18:00 Blood Peripheral Aerobic Blood Culture - Preliminary NO GROWTH IN 2 DAYS Resulted 03/08/18 18:00 Blood Peripheral Anaerobic Blood Culture - Preliminary NO GROWTH IN 2 DAYS Resulted 03/08/18 17:45 Blood Peripheral Aerobic Blood Culture - Preliminary NO GROWTH IN 2 DAYS Resulted 03/08/18 17:45 Blood Peripheral Anaerobic Blood Culture - Preliminary NO GROWTH IN 2 DAYS Resulted 03/08/18 18:50 Wound Foot Gram Stain - Final Complete 03/08/18 18:50 Wound Foot Wound Culture - Final Complete Imaging Foot X-Ray 03/09/18 0000 Signed Impressions: Service Date/Time: Friday, March 09, 2018 14:41 - CONCLUSION: 1. Interval more proximal amputation through the diaphysis of the fifth metatarsal. 2. Old healed fracture deformities of the first through third metatarsals. Stable degenerative osteoarthritic changes of multiple interphalangeal joints. 3. Small calcaneal spur at the plantar aponeurosis with probable calcification of the aponeurosis itself. 4. No plain film findings of osteomyelitis or soft tissue ulceration Bj Meza MD Chest X-Ray 03/08/18 1725 Signed Impressions: Service Date/Time: Thursday, March 08, 2018 17:50 - CONCLUSION: Mild left base infiltrate Frank Strauss MD Head CT 03/08/18 0000 Signed Impressions: Service Date/Time: Thursday, March 08, 2018 21:45 - CONCLUSION: No acute disease. Frank Quinones MD Physical Exam GENERAL: awake and alert, not in respiratory distress. SKIN: Warm and dry. No generalized rash, no ecchymoses and no evidence of embolic lesions. HEAD: Atraumatic. Normocephalic. No temporal wasting, or tenderness. EYES: [place] conjunctiva. No petechia or hemorrhage. Pupils equal, round and reactive to light. Extraocular movements full and intact. No scleral icterus. No injection or drainage. EARS, NOSE AND THROAT: Nose without bleeding or purulent nasal discharge. No sinus tenderness. Mucous membranes pink and moist. No oral lesions noted. No exudate. No oral thrush. NECK: Trachea midline. Supple and not tender, no meningeal signs CARDIOVASCULAR: Regular rate and rhythm. No murmurs, rubs or gallops heard RESPIRATORY: Clear to auscultation. Breath sounds equal bilaterally. No rales , wheezing or rhonchi ABDOMEN: Soft, non-tender, nondistended. Bowel sounds present and normoactive. No guarding. No rebound. No organomegaly. EXTREMITIES: No clubbing, cyanosis, or edema. No joint effusion, has good ROM. No calf tenderness. Well perfused and warm. L foot, has callus tip of 2nd toe, and wound on medial 3rd toe, with open wounds draining reddish brown fluid with some purulence and odor NEUROLOGICAL: Awake and alert. Cranial nerves grossly intact. Motor grossly within normal limits. PSYCHIATRIC: Normal affect, calm and cooperative. 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
[2018-03-10 16:00] VITALS: BP 197/91; PULSE 67; RESP 16; TEMP 98.9; O2SAT 94
[2018-03-10] MEDS: metroNIDAZOLE 500 MG TAB PO SCH ×2 (16:32→22:10)
[2018-03-10] MEDS: CIPROFLOXACIN 750 MG TAB PO SCH ×2 (17:25→22:10)
--- NOTE | 2018-03-10 18:03 | PD.CONS ---
History of Present Illness Service Podiatry Consult Requested By Rosa Reason for Consult Left foot ulcer Primary Care Physician Unknown Diagnoses: History of Present Illness Patient has history of infection right foot and partial 5th ray amputation with Dr Harper. He does not know that he had a wound on the L distal residual 2nd toe and has no idea how long it has been here. He was in rehab after his last surgery and has been back home for about a month. His friend is present today to assist with some history, as he is a poor historian. Past Family Social History Allergies: Coded Allergies: Influenza Virus Vaccines (Verified Allergy, Severe, Anaphylaxis, 01/02/18) *MDRO Multi-Drug Resistant Organism (Verified Adverse Reaction, Unknown, ) 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 Physical Exam Vital Signs Vital Signs Date Time Temp Pulse Resp B/P (MAP) Pulse Ox O2 Delivery O2 Flow Rate FiO2 03/10/18 08:00 99.2 72 16 165/79 (107) 95 03/10/18 04:00 98.3 76 20 174/82 (112) 96 03/10/18 00:00 98.3 77 18 196/94 (128) 95 03/09/18 20:00 98.1 74 20 199/95 (129) 96 Physical Exam Warm skin temperature, palpable pulses left foot. Sensation absent. Distal residual 2nd toe with ulceration and purulence. No gross cellulitis observed locally to the area. Appears as a chronic wound. No visible bone. Laboratory Date/Time Source Procedure Growth Status 03/08/18 18:00 Blood Peripheral Aerobic Blood Culture - Preliminary NO GROWTH IN 2 DAYS Resulted 03/08/18 18:00 Blood Peripheral Anaerobic Blood Culture - Preliminary NO GROWTH IN 2 DAYS Resulted 03/08/18 18:50 Wound Foot Gram Stain - Final Complete 03/08/18 18:50 Wound Foot Wound Culture - Final Complete Result Diagram: 03/09/18 0930 03/09/18 0930 Imaging Ordered MRI left foot Last 72 hours Impressions Foot X-Ray 03/09/18 0000 Signed Impressions: Service Date/Time: Friday, March 09, 2018 14:41 - CONCLUSION: 1. Interval more proximal amputation through the diaphysis of the fifth metatarsal. 2. Old healed fracture deformities of the first through third metatarsals. Stable degenerative osteoarthritic changes of multiple interphalangeal joints. 3. Small calcaneal spur at the plantar aponeurosis with probable calcification of the aponeurosis itself. 4. No plain film findings of osteomyelitis or soft tissue ulceration Bj Meza MD Foot X-Ray 03/08/18 1811 Signed Impressions: Service Date/Time: Thursday, March 08, 2018 18:08 - CONCLUSION: Resorption of the second and third toe distal phalanges, most acute and appearing at the level of the second digit. Extensive chronic changes elsewhere. Frank Strauss MD Chest X-Ray 03/08/18 1725 Signed Impressions: Service Date/Time: Thursday, March 08, 2018 17:50 - CONCLUSION: Mild left base infiltrate Frank Strauss MD Head CT 03/08/18 0000 Signed Impressions: Service Date/Time: Thursday, March 08, 2018 21:45 - CONCLUSION: No acute disease. Frank Quinones MD Assessment and Plan Assessment and Plan Chronic ulcer left 2nd toe, possible osteomyelitis. MRI pending left foot Plan likely to OR tomorrow 330 pm Canceled NPO today and ordered 1800kcal diabetic diet for dinner and breakfast (if served very early tomorrow) NPO after 730 a.m. tomorrow. Will put in consent order after MRI is completed, in order to plan appropriately. Riky Christiansen DPM Mar 10, 2018 18:03
[2018-03-10 20:00] VITALS: BP 123/60; PULSE 76; PULSE 77; RESP 18; TEMP 98.1; O2SAT 96
[2018-03-10] MEDS ORDERED: GADODIAMIDE PF 287 MG/ML 20 ML VIAL (for RAD MRI) IVCONTRAST ONE (21:02)
--- NOTE | 2018-03-10 21:24 | RADRPT ---
EXAM DATE/TIME: 03/10/2018 20:30 [facility] COMPARISON: FOOT RIGHT LIMITED (2VWS), March 09, 2018, 14:41. INDICATIONS : Osteomyelitis. Open wound across the tips of second and third toes. CONTRAST: 20 cc Omniscan (gadodiamide) IV MEDICAL HISTORY : Hypertension. Diabetes mellitus type 2. SURGICAL HISTORY : Colostomy. Right toe sx. ENCOUNTER: Initial ACUITY: 2 weeks PAIN SCORE: 3/10 LOCATION: Left foot. TECHNIQUE: Multiplanar, multisequence MRI examination was performed without contrast and after the intravenous a dministration of gadolinium. FINDINGS: BONE/CARTILAGE: There is diffuse T1 and high T2 signal throughout the proximal phalanx second toe and what remains of the middle phalanx. Amputation of the distal fifth metatarsal. POST-CONTRAST: There is enhancement of the second digit and of the distal soft tissues of the toes.. CONCLUSION: 1. Osteomyelitis of the second digit. Nato Castorena MD on March 10, 2018 at 21:19 Board Certified Radiologist. This report was verified electronically.
--- NOTE | 2018-03-10 23:57 | HHI.PR ---
Subjective Remarks Follow up for diabetic foot infection, possible osteomyelitis. Patient is currently doing well. Waiting for podiatry eval. Patient reports no fever, chills. Objective Vitals Vital Signs Date Time Temp Pulse Resp B/P (MAP) Pulse Ox O2 Delivery O2 Flow Rate FiO2 03/10/18 16:00 98.9 67 16 197/91 (126) 94 03/10/18 12:00 98.5 59 16 156/96 (116) 96 03/10/18 08:00 99.2 72 16 165/79 (107) 95 03/10/18 04:00 98.3 76 20 174/82 (112) 96 03/10/18 00:00 98.3 77 18 196/94 (128) 95 I/O 03/10/18 03/10/18 03/10/18 03/11/18 03/11/18 03/11/18 07:00 15:00 23:00 07:00 15:00 23:00 Output Total 1300 ml 1000 ml 500 ml Balance -1300 ml -1000 ml -500 ml Output Urine Total 1300 ml 1000 ml 500 ml Result Diagram: 03/09/18 0930 03/09/18 0930 Imaging Last Impressions Foot MRI 03/10/18 0000 Signed Impressions: Service Date/Time: Saturday, March 10, 2018 20:30 - CONCLUSION: 1. Osteomyelitis of the second digit. Nato Castorena MD Foot X-Ray 03/09/18 0000 Signed Impressions: Service Date/Time: Friday, March 09, 2018 14:41 - CONCLUSION: 1. Interval more proximal amputation through the diaphysis of the fifth metatarsal. 2. Old healed fracture deformities of the first through third metatarsals. Stable degenerative osteoarthritic changes of multiple interphalangeal joints. 3. Small calcaneal spur at the plantar aponeurosis with probable calcification of the aponeurosis itself. 4. No plain film findings of osteomyelitis or soft tissue ulceration Bj Meza MD Chest X-Ray 03/08/18 2955 Signed Impressions: Service Date/Time: Thursday, March 08, 2018 17:50 - CONCLUSION: Mild left base infiltrate Frank Strauss MD Head CT 03/08/18 0000 Signed Impressions: Service Date/Time: Thursday, March 08, 2018 21:45 - CONCLUSION: No acute disease. Frank Quinones MD Objective Remarks GENERAL: SKIN: Warm and dry. HEAD: Normocephalic. EYES: No scleral icterus. No injection or drainage. NECK: Supple, trachea midline. No JVD or lymphadenopathy. CARDIOVASCULAR: Regular rate and rhythm without murmurs, gallops, or rubs. RESPIRATORY: Breath sounds equal bilaterally. No accessory muscle use. GASTROINTESTINAL: Abdomen soft, non-tender, nondistended. MUSCULOSKELETAL: No cyanosis, or edema. left 2nd toe wound BACK: Nontender without obvious deformity. No CVA tenderness. Procedures None. A/P Problem List: (1) Sepsis ICD Code: A41.9 - Sepsis, unspecified organism (2) PNA (pneumonia) ICD Code: J18.9 - Pneumonia, unspecified organism (3) Wound infection ICD Code: T14.8XXA - Other injury of unspecified body region, initial encounter ; L08.9 - Local infection of the skin and subcutaneous tissue, unspecified (4) Encephalopathy ICD Code: G93.40 - Encephalopathy, unspecified Status: Acute (5) DM (diabetes mellitus) ICD Code: E11.9 - Type 2 diabetes mellitus without complications Assessment and Plan This is a 68-year-old male with a PMH of HTN, A. fib, DM, h/o Megacolon s/p Colostomy and h/o Right Foot Infection who was brought to the ER secondary to AMS. On arrival, BP 177/87, HR 90, O2 sat 94% RA, Temp 101.5. WBC 17.3. Chemistry essentially unremarkable. INR 1.2. UA negative for UTI. +agitation requiring Ativan for imaging studies. CT Head with no acute findings. CXR with left base infiltrate. Foot X-ray with resorption of second third toe distal phalanges, most acute and appearing at the level of the second digit, extensive chronic changes elsewhere. On exam, foot wound w/ foul-smelling, purulent drainage. S/p Wound/Blood Cultures, Rocephin/Zithr in ER. Sepsis - emp 101.5, HR 90, WBC 17, Source-PNA/Foot Infection Probable pneumonia - no pneumonia symptoms clinically. Diabetic foot infection Left foot osteomyelitis - ID And podiatry following - Likely surgery tomorrow 03/11/2018. - Continue Vancomycin and Cipro/Flagyl. Diabetes mellitus - continue sliding scale insulin. Add Levemir 10 units QHS. May need to add pre-meal insulin. Metabolic encephalopathy - likely from infection. Much improved. Full code. Heparin SQ. Parker Cuevas DO Mar 10, 2018 23:57
[2018-03-11] VITALS (7 sets, daily range): BP systolic 103–184; BP diastolic 44–86; PULSE 53–87; RESP 17–18; TEMP 97.8–99; O2SAT 95–97
[2018-03-11] MEDS: SODIUM CHLOR 0.9% 1000 ML INJ 1,000 ML IV SCH (00:59)
[2018-03-11] MEDS ORDERED: PHARMACY ORDERED LAB ONE (03:45)
[2018-03-11] MEDS ORDERED: POVIDONE IODINE 5% (ANTISEPSIS KIT) 4 APPLICATIONS EACH NARE PRN (04:15)
[2018-03-11] MEDS ORDERED: CHLORHEXIDINE GLUCONATE 2 % 1 PACK (2 CLOTHS) TOPICAL PRN (04:15)
[2018-03-11] MEDS ORDERED: LACTATED RINGER'S 1000 ML IV PRN (04:15)
[2018-03-11] MEDS ORDERED: SODIUM CHLORID 0.9% 500 ML IV PRN (04:15)
[2018-03-11] MEDS: VANCOMYCIN INJ 1,750 MG in SODIUM CHLORID 0.9% 500 ML INJ 500 ML IV SCH (04:52)
[2018-03-11] MEDS: metroNIDAZOLE 500 MG TAB PO SCH ×3 (06:00→21:07)
[2018-03-11] MEDS: HEPARIN SODIUM - SQ 10,000 UNITS/ML VIAL SQ SCH (09:06)
[2018-03-11] MEDS: CIPROFLOXACIN 750 MG TAB PO SCH ×2 (09:08→21:07)
[2018-03-11] MEDS: SODIUM CHLORIDE 0.9% FLUSH 10 ML FLUSH IV FLUSH SCH ×2 (09:08→21:07)
[2018-03-11] MEDS: DOCUSATE SODIUM 50 MG/SENNA 8.6 MG TAB PO SCH ×2 (09:08→21:07)
[2018-03-11] MEDS: INSULIN ASPART SUPPLEMENTAL SCALE SQ SCH ×4 (09:08→21:00)
[2018-03-11] MEDS ORDERED: PROPOFOL 200 MG/20 ML AMP IV ONE (12:00)
[2018-03-11] MEDS ORDERED: LIDOCAINE HCL 1% PF 5 ML SYRINGE OTHER ONE (12:00)
--- NOTE | 2018-03-11 12:07 | HHI.IDPN ---
Subjective Subjective Remarks Patient is a 68-year-old male, admitted to the hospital, after his neighbor found him with confusion, and with a broken colostomy bag, and he was covered in feces. He also had a temperature of 101. Patient is not a good historian. According to him his nephew has been living with her because he has not been able to take care of himself. The nephew is not available for any further history. Patient was febrile in the emergency room. His WBC was 17,000. Urinalysis was unremarkable. Patient currently still does not give any good history. He was noted to have some draining wounds on his left foot with foul- smelling drainage. Chest x-ray has a left base opacity. CT of the head did not show any acute findings. X-ray of the left foot showing resorption of the distal phalanges of the second and third toes. Infectious disease consultation has been requested to evaluate the patient. He is currently afebrile, and his WBC is better. Notes reviewed [place] Podiatry notes reviewed MRI foot with osteo of second digit L Wound C/S - normal skin ino, mixed enterics including proteus, cannot R/O anaerobes due to Proteus Poor historian Antibiotics Vancomycin Cipro Flagyl Current Medications Medications (Trade) Dose Ordered Sig/Jeremias Route Start Time Stop Time Status Last Admin Pharmacy Profile Note 0 ml @ 0 mls/hr UNSCH OTHER 03/08/18 23:00 Sodium Chloride 1,000 ml @ 100 mls/hr Q10H IV 03/08/18 22:59 03/10/18 05:52 (NS Flush) 2 ml UNSCH PRN IV FLUSH 03/08/18 23:00 (NS Flush) 2 ml BID IV FLUSH 03/09/18 09:00 03/10/18 22:11 (Zofran Inj) 4 mg Q6H PRN IVP 03/08/18 23:00 (Tylenol) 650 mg Q6H PRN PO 03/08/18 23:00 (Diane-Colace) 1 tab BID PO 03/09/18 09:00 03/11/18 09:08 (Milk Of Magnesia Liq) 30 ml Q12H PRN PO 03/08/18 23:00 (Senokot) 17.2 mg Q12H PRN PO 03/08/18 23:00 (Dulcolax Supp) 10 mg DAILY PRN RECTAL 03/08/18 23:00 (Lactulose Liq) 30 ml DAILY PRN PO 03/08/18 23:00 (Heparin Inj) 5,000 units Q12HR SQ 03/09/18 09:00 03/10/18 08:30 (D50w (Vial) Inj) 50 ml UNSCH PRN IV PUSH 03/09/18 01:15 (Glucagon Inj) 1 mg UNSCH PRN OTHER 03/09/18 01:15 (NovoLOG SUPPLEMENTAL SCALE) 1 ACHS SLIDING SCALE SQ 03/09/18 08:00 03/11/18 09:08 (Vasotec Inj) 2.5 mg Q6H PRN IV PUSH 03/09/18 22:00 03/09/18 22:47 (Cipro) 750 mg Q12HR PO 03/10/18 16:00 03/11/18 09:08 (Flagyl) 500 mg Q8HR PO 03/10/18 15:00 03/11/18 06:00 Lactated Ringer's 1,000 ml @ 30 mls/hr Q24H PRN IV 03/11/18 04:15 03/14/18 04:14 Sodium Chloride 500 ml @ 30 mls/hr [id number] PRN IV 03/11/18 04:15 03/14/18 04:14 (Betadine 5% Antisepsis Kit) 1 applic PRODUCT MANAGEMENT ANALYST PRN EACH NARE 03/11/18 04:15 03/14/18 04:14 (Chlorhexidine 2% Cloth) 3 pack PRODUCT MANAGEMENT ANALYST PRN TOPICAL 03/11/18 04:15 03/14/18 04:14 (Levemir Inj) 10 units HS SQ 03/11/18 21:00 Vancomycin HCl 1500 mg/Sodium Chloride 515 ml @ 257.5 mls/ hr Q12H IV 03/11/18 18:00 Miscellaneous Information SPECIFIC LAB TO BE [facility]... ONCE ONCE .XX 03/12/18 17:45 03/12/18 17:46 Lines Line no evidence of infection Past Medical History HTN A. 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 coli and anaerobes Allergies: Coded Allergies: Influenza Virus Vaccines (Verified Allergy, Severe, Anaphylaxis, 01/02/18) *MDRO Multi-Drug Resistant Organism (Verified Adverse Reaction, Unknown, ) 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 Objective . Vital Signs Date Time Temp Pulse Resp B/P (MAP) Pulse Ox O2 Delivery O2 Flow Rate FiO2 03/11/18 08:00 98.3 69 18 158/76 (103) 96 03/11/18 04:00 98.9 65 18 167/73 (104) 95 03/11/18 00:00 70 03/11/18 00:00 97.8 60 18 130/67 (88) 97 03/10/18 20:00 76 03/10/18 20:00 98.1 77 18 123/60 (81) 96 03/10/18 16:00 98.9 67 16 197/91 (126) 94 . Microbiology Date/Time Source Procedure Growth Status 03/08/18 18:00 Blood Peripheral Aerobic Blood Culture - Preliminary NO GROWTH IN 3 DAYS Resulted 03/08/18 18:00 Blood Peripheral Anaerobic Blood Culture - Preliminary NO GROWTH IN 3 DAYS Resulted 03/08/18 17:45 Blood Peripheral Aerobic Blood Culture - Preliminary NO GROWTH IN 3 DAYS Resulted 03/08/18 17:45 Blood Peripheral Anaerobic Blood Culture - Preliminary NO GROWTH IN 3 DAYS Resulted 03/08/18 18:50 Wound Foot Gram Stain - Final Complete 03/08/18 18:50 Wound Foot Wound Culture - Final Complete Imaging Foot X-Ray 03/09/18 0000 Signed Impressions: Service Date/Time: Friday, March 09, 2018 14:41 - CONCLUSION: 1. Interval more proximal amputation through the diaphysis of the fifth metatarsal. 2. Old healed fracture deformities of the first through third metatarsals. Stable degenerative osteoarthritic changes of multiple interphalangeal joints. 3. Small calcaneal spur at the plantar aponeurosis with probable calcification of the aponeurosis itself. 4. No plain film findings of osteomyelitis or soft tissue ulceration Bj Meza MD Chest X-Ray 03/08/18 1725 Signed Impressions: Service Date/Time: Thursday, March 08, 2018 17:50 - CONCLUSION: Mild left base infiltrate Frank Strauss MD Head CT 03/08/18 0000 Signed Impressions: Service Date/Time: Thursday, March 08, 2018 21:45 - CONCLUSION: No acute disease. Frank Quionnes MD Physical Exam GENERAL: awake and alert, not in respiratory distress. SKIN: Warm and dry. No generalized rash, no ecchymoses and no evidence of embolic lesions. HEAD: Atraumatic. Normocephalic. No temporal wasting, or tenderness. EYES: [place] conjunctiva. No petechia or hemorrhage. Pupils equal, round and reactive to light. Extraocular movements full and intact. No scleral icterus. No injection or drainage. EARS, NOSE AND THROAT: Nose without bleeding or purulent nasal discharge. No sinus tenderness. Mucous membranes pink and moist. No oral lesions noted. No exudate. No oral thrush. NECK: Trachea midline. Supple and not tender, no meningeal signs CARDIOVASCULAR: Regular rate and rhythm. No murmurs, rubs or gallops heard RESPIRATORY: Clear to auscultation. Breath sounds equal bilaterally. No rales , wheezing or rhonchi ABDOMEN: Soft, non-tender, nondistended. Bowel sounds present and normoactive. No guarding. No rebound. No organomegaly. EXTREMITIES: No clubbing, cyanosis, or edema. No joint effusion, has good ROM. No calf tenderness. Well perfused and warm. L foot, has callus tip of 2nd toe, and wound on medial 3rd toe, with open wounds draining reddish brown fluid with some purulence and odor NEUROLOGICAL: Awake and alert. Cranial nerves grossly intact. Motor grossly within normal limits. PSYCHIATRIC: Normal affect, calm and cooperative. 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
--- NOTE | 2018-03-11 13:08 | HHI.PR ---
Subjective Remarks Follow up for diabetic foot infection, possible osteomyelitis. Patient is currently doing well. Waiting for surgery this afternoon. Objective Vitals Vital Signs Date Time Temp Pulse Resp B/P (MAP) Pulse Ox O2 Delivery O2 Flow Rate FiO2 03/11/18 12:00 98.9 69 18 184/86 (118) 96 172/83 (112) 03/11/18 08:00 98.3 69 18 158/76 (103) 96 03/11/18 04:00 98.9 65 18 167/73 (104) 95 03/11/18 00:00 70 03/11/18 00:00 97.8 60 18 130/67 (88) 97 03/10/18 20:00 76 03/10/18 20:00 98.1 77 18 123/60 (81) 96 03/10/18 16:00 98.9 67 16 197/91 (126) 94 I/O 03/10/18 03/10/18 03/10/18 03/11/18 03/11/18 03/11/18 06:59 14:59 22:59 06:59 14:59 22:59 Output Total 1300 ml 1000 ml 500 ml Balance -1300 ml -1000 ml -500 ml Output Urine Total 1300 ml 1000 ml 500 ml # Voids 4 Result Diagram: 03/09/18 0930 03/09/18 0930 Imaging Last Impressions Foot MRI 03/10/18 0000 Signed Impressions: Service Date/Time: Saturday, March 10, 2018 20:30 - CONCLUSION: 1. Osteomyelitis of the second digit. Nato Castorena MD Foot X-Ray 03/09/18 0000 Signed Impressions: Service Date/Time: Friday, March 09, 2018 14:41 - CONCLUSION: 1. Interval more proximal amputation through the diaphysis of the fifth metatarsal. 2. Old healed fracture deformities of the first through third metatarsals. Stable degenerative osteoarthritic changes of multiple interphalangeal joints. 3. Small calcaneal spur at the plantar aponeurosis with probable calcification of the aponeurosis itself. 4. No plain film findings of osteomyelitis or soft tissue ulceration Bj Meza MD Chest X-Ray 03/08/18 1725 Signed Impressions: Service Date/Time: Thursday, March 08, 2018 17:50 - CONCLUSION: Mild left base infiltrate Frank Strauss MD Head CT 03/08/18 0000 Signed Impressions: Service Date/Time: Thursday, March 08, 2018 21:45 - CONCLUSION: No acute disease. Frank Quinones MD Objective Remarks GENERAL: SKIN: Warm and dry. HEAD: Normocephalic. EYES: No scleral icterus. No injection or drainage. NECK: Supple, trachea midline. No JVD or lymphadenopathy. CARDIOVASCULAR: Regular rate and rhythm without murmurs, gallops, or rubs. RESPIRATORY: Breath sounds equal bilaterally. No accessory muscle use. GASTROINTESTINAL: Abdomen soft, non-tender, nondistended. MUSCULOSKELETAL: No cyanosis, or edema. left 2nd toe wound BACK: Nontender without obvious deformity. No CVA tenderness. Procedures None. A/P Problem List: (1) Sepsis ICD Code: A41.9 - Sepsis, unspecified organism (2) PNA (pneumonia) ICD Code: J18.9 - Pneumonia, unspecified organism (3) Wound infection ICD Code: T14.8XXA - Other injury of unspecified body region, initial encounter ; L08.9 - Local infection of the skin and subcutaneous tissue, unspecified (4) Encephalopathy ICD Code: G93.40 - Encephalopathy, unspecified Status: Acute (5) DM (diabetes mellitus) ICD Code: E11.9 - Type 2 diabetes mellitus without complications Assessment and Plan This is a 68-year-old male with a PMH of HTN, A. fib, DM, h/o Megacolon s/p Colostomy and h/o Right Foot Infection who was brought to the ER secondary to AMS. On arrival, BP 177/87, HR 90, O2 sat 94% RA, Temp 101.5. WBC 17.3. Chemistry essentially unremarkable. INR 1.2. UA negative for UTI. +agitation requiring Ativan for imaging studies. CT Head with no acute findings. CXR with left base infiltrate. Foot X-ray with resorption of second third toe distal phalanges, most acute and appearing at the level of the second digit, extensive chronic changes elsewhere. On exam, foot wound w/ foul-smelling, purulent drainage. S/p Wound/Blood Cultures, Rocephin/Zithr in ER. Sepsis - temp 101.5, HR 90, WBC 17, Source-PNA/Foot Infection Probable pneumonia - no pneumonia symptoms clinically. Diabetic foot infection Left foot osteomyelitis - ID And podiatry following - Likely surgery tomorrow 03/11/2018. - Continue Vancomycin and Cipro/Flagyl. Will get clarification from ID to see if we should continue Vanc/Cipro/Flagyl or Vanc/Zosyn as written in the ID note. Diabetes mellitus - continue sliding scale insulin. Add Levemir 10 units QHS. May need to add pre-meal insulin. Metabolic encephalopathy - likely from infection. Much improved. Full code. Heparin SQ. Parker Cuevas DO Mar 11, 2018 1:08 pm
[2018-03-11] MEDS ORDERED: ACETAMINOPHEN 1000 MG/100 ML 0 ML IV ONE (16:06)
[2018-03-11] MEDS ORDERED: LIDOCAINE HCL 2% 50 ML VIAL ONE (16:15)
[2018-03-11] MEDS ORDERED: BUPIVACAINE HCL PF 0.5% 30 ML VIAL ONE (16:16)
[2018-03-11] MEDS ORDERED: PROPOFOL 500 MG/50 ML INJ 0 ML ONE (16:21)
[2018-03-11] MEDS ORDERED: DO NOT ADM ANY ANTICOAGULANT DRUGS PRN (17:05)
--- NOTE | 2018-03-11 17:09 | HHI.PR ---
Immediate Post Op Note Procedure Date: Mar 11, 2018 Pre Op Diagnosis: Osteomyelitis left 2nd toe Post Op Diagnosis: same Surgeon: Riky Christiansen DPM Lang Interpreter(s): Staff Procedure: Amputation left 2nd toe Findings: Consistent with diagnosis. Ulceration noted to distal aspect of residual left 2nd toe. erythema mildly distal aspect with minimal edema. No jered purulence to wound. Two semielliptical incision made encompassing base of digits to disarticulate residual left 2nd toe at level of metatarsophalangeal joint. White healthy viable cartilage cap noted to 2nd metatarsal head. No purulence noted within surgical wound. Culture taken, followed by irrigation and primary closure with 2 -0 nylon suture. Dressing with xeroform, 4x4, cast padding, rebecca to left foot Additional Information: Weightbearing as tolerated left foot in surgical shoe. No tourniquet utilized, bled well. Follow up in clinic in 1 week for dressing change. Do not remove bandage. Ok with discharge home per primary team on 2 weeks oral antibiotics broad spectrum, as surgical cure achieved. Will assess wound and change bandage in clinic next week. Complications: none Specimen(s) removed: 1. left residual 2nd toe to pathology 2. culture left foot Estimated blood loss: minimal Anesthesia: MAC, Local, Other (10mL 2% lidocaine plain) IVF Tourniquet time (min at mmHg) n/a Patient to: PACU Patient Condition: Good Date/Time of Procedure: SEE SURGICAL CARE RECORD Riky Christiansen DPM Mar 11, 2018 17:09
--- NOTE | 2018-03-11 17:43 | RADRPT ---
EXAM DATE/TIME: 03/11/2018 17:19 [facility] COMPARISON: FOOT LEFT COMPLETE ([id number]), March 08, 2018, 18:08. INDICATIONS : Patient post-op MEDICAL HISTORY : None. Osteomyelitis. ENCOUNTER: Initial ACUITY: 2 days PAIN SCORE: Non-responsive. LOCATION: Left Foot FINDINGS: Status post resection of the second digit. Deformity of the first metatarsal again seen. Degenerati ve changes are present at the tarsometatarsal joints. CONCLUSION: Postoperative changes as above. Ta Newell MD FACR on March 11, 2018 at 17:40 Board Certified Radiologist. This report was verified electronically.
--- NOTE | 2018-03-11 17:44 | MP ---
cc: Riky Christiansen DPM DATE OF OPERATION: 03/11/2018 DATE OF PROCEDURE: 03/11/2018. INDICATION FOR PROCEDURE: The patient presented to the emergency department with a worsening infection to the left distal aspect of the second toe. He had an ulceration present there and did not realize it secondary to severe neuropathy. He was noted on MRI to have findings consistent with osteomyelitis. I discussed with the patient the benefits, risks and potential complications of surgery to amputate the left second toe. He agreed to move forward with amputation of left second toe. DESCRIPTION OF PROCEDURE: He was seen in preop holding by myself, nursing staff and anesthesia where the correct patient, side, and site were all confirmed to be correct and the left foot. He was then taken back to the surgical suite in supine position. The left foot was prepped and draped in normal sterile fashion followed by attention directed to the dorsal aspect of the second digit. After timeouts were performed per facility protocol, 2 semi-elliptical incisions were made to the medial and lateral aspects of the second digit in order to disarticulate the remnant of the second digit at the level of the metatarsophalangeal joint. There was noted to be a distal ulceration to the distal most aspect of the residual second digit that did not appear to track any further than the distal aspect. After the digit was amputated at the level of the metatarsophalangeal joint, there was noted to be healthy white viable cartilage cap noted to the second metatarsal head area. No purulence was noted within the surgical wound. It had culture taken prior to irrigation with normal saline, followed by a primary closure with 2-0 nylon suture, followed by a dressing consisting of Xeroform, 4 x 4's, cast padding and Tomas bandage to the left foot. The patient tolerated the procedure and anesthesia well without complications and was taken back to PACU with vital signs stable and vascular status intact to the remainder of the left foot. He will be weightbearing as tolerated on the left foot in a surgical shoe and will be following up in clinic for a dressing change in approximately 1 week. SURGEON: Riky Christiansen DPM PRESS MACHINE FEEDER: Staff. PREOPERATIVE DIAGNOSIS: Osteomyelitis, left second toe. POSTOPERATIVE DIAGNOSIS: Osteomyelitis, left second toe. PROCEDURE PERFORMED: Amputation of the left second toe. PROPHYLAXIS: The patient is already on antibiotics. ANESTHESIA: MAC plus local consisting of 10 mL 2% lidocaine plain. TOURNIQUET: No tourniquet was utilized. CONDITION: Stable to PACU. COMPLICATIONS: None. ESTIMATED BLOOD LOSS: Minimal. DISPOSITION: Weightbearing as tolerated on the left foot in a surgical shoe. Followup in clinic in 1 week for a dressing change. I do feel that there was a surgical cure removing all evidence of osteomyelitis or infection from the left foot. The patient can be discharged when deemed necessary and able to be performed per primary team as early as tomorrow from my perspective. LEONID Rico/DENILSON , 05:12 PM , 05:43 PM
[2018-03-11] MEDS: VANCOMYCIN INJ 1,500 MG in SODIUM CHLORID 0.9% 500 ML INJ 500 ML IV SCH (18:30)
[2018-03-11] MEDS ORDERED: INSULIN DETEMIR 100 UNITS/ML VIAL SQ SCH (21:00)
[2018-03-12] VITALS: PULSE 87
[2018-03-12 00:15] VITALS: BP 130/72; PULSE 80; RESP 18; TEMP 98.8; O2SAT 98
[2018-03-12] MEDS: metroNIDAZOLE 500 MG TAB PO SCH ×2 (05:10→13:51)
[2018-03-12] MEDS: VANCOMYCIN INJ 1,500 MG in SODIUM CHLORID 0.9% 500 ML INJ 500 ML IV SCH (05:12)
[2018-03-12 05:30] VITALS: BP 133/63; PULSE 63; RESP 16; TEMP 98.3; O2SAT 96
[2018-03-12 08:00] VITALS: BP 141/65; PULSE 67; RESP 18; TEMP 98; O2SAT 97
[2018-03-12 10:10] LABS: CREATININE 0.89 MG/DL (0.60-1.30)
[2018-03-12] MEDS: DOCUSATE SODIUM 50 MG/SENNA 8.6 MG TAB PO SCH (10:18)
[2018-03-12] MEDS: SODIUM CHLORIDE 0.9% FLUSH 10 ML FLUSH IV FLUSH SCH (10:19)
[2018-03-12] MEDS: CIPROFLOXACIN 750 MG TAB PO SCH (10:19)
[2018-03-12] MEDS: INSULIN ASPART SUPPLEMENTAL SCALE SQ SCH ×2 (10:20→13:51)
[2018-03-12] MEDS: SODIUM CHLOR 0.9% 1000 ML INJ 1,000 ML IV SCH (10:22)
[2018-03-12] MEDS ORDERED: CIPR750T2 PO (11:25)
[2018-03-12] MEDS ORDERED: METR-1 PO (11:25)
[2018-03-12] MEDS ORDERED: NOVOLOGP2 SQ (11:25)
[2018-03-12] MEDS ORDERED: LACTCHW3 CHEW (11:28)
[2018-03-12] MEDS ORDERED: LEVEMIR SQ (11:28)
[2018-03-12] MEDS ORDERED: TRAM50TA PO (11:29)
--- NOTE | 2018-03-12 11:47 | HHI.DS ---
Discharge Summary Admission Date Mar 08, 2018 at 10:58 pm Discharge Date: Mar 12, 2018 Admitting Diagnosis sepsis, pna, cellulitis (1) Sepsis ICD Code: A41.9 - Sepsis, unspecified organism (2) PNA (pneumonia) ICD Code: J18.9 - Pneumonia, unspecified organism (3) Wound infection ICD Code: T14.8XXA - Other injury of unspecified body region, initial encounter ; L08.9 - Local infection of the skin and subcutaneous tissue, unspecified Diagnosis: Principal (4) Encephalopathy ICD Code: G93.40 - Encephalopathy, unspecified Status: Acute (5) DM (diabetes mellitus) ICD Code: E11.9 - Type 2 diabetes mellitus without complications Procedures Amputation of the left second toe. Brief History - From Admission This is a 68-year-old male with a PMH of HTN, A. fib, DM, h/o Megacolon s/p Colostomy and h/o Right Foot Infection who was brought to the ER secondary to AMS. Pt unable to provide any history. Per report, neighbor called 911, upon EMS arrival, pt noted to altered, w/ broken colostomy bag, covered in feces and febrile w/ Temp 101. On arrival, BP 177/87, HR 90, O2 sat 94% RA, Temp 101.5. WBC 17.3. Chemistry essentially unremarkable. INR 1.2. UA negative for UTI. +agitation requiring Ativan for imaging studies. CT Head with no acute findings. CXR with left base infiltrate. Foot X-ray with resorption of second third toe distal phalanges, most acute and appearing at the level of the second digit, extensive chronic changes elsewhere. On exam, foot wound w/ foul- smelling, purulent drainage. S/p Wound/Blood Cultures, Rocephin/Zithr in ER. CBC/BMP: 03/09/18 0930 03/12/18 0747 Significant Findings Laboratory Tests Test 03/11/18 04:00 03/12/18 07:47 Vancomycin Level Trough 20.0 MCG/ML (5.0-10.0) Estimat Glomerular Filtration Rate 85 ML/MIN (>89) Imaging Last Impressions Foot X-Ray 03/11/18 0000 Signed Impressions: Service Date/Time: Sunday, March 11, 2018 17:19 - CONCLUSION: Postoperative changes as above. Ta Newell MD FACR Foot MRI 03/10/18 0000 Signed Impressions: Service Date/Time: Saturday, March 10, 2018 20:30 - CONCLUSION: 1. Osteomyelitis of the second digit. Nato Castorena MD Chest X-Ray 03/08/18 1725 Signed Impressions: Service Date/Time: Thursday, March 08, 2018 17:50 - CONCLUSION: Mild left base infiltrate Frank Strauss MD Head CT 03/08/18 0000 Signed Impressions: Service Date/Time: Thursday, March 08, 2018 21:45 - CONCLUSION: No acute disease. Frank Quinones MD PE at Discharge GENERAL: SKIN: Warm and dry. HEAD: Normocephalic. EYES: No scleral icterus. No injection or drainage. NECK: Supple, trachea midline. No JVD or lymphadenopathy. CARDIOVASCULAR: Regular rate and rhythm without murmurs, gallops, or rubs. RESPIRATORY: Breath sounds equal bilaterally. No accessory muscle use. GASTROINTESTINAL: Abdomen soft, non-tender, nondistended. MUSCULOSKELETAL: No cyanosis, or edema. left 2nd toe wound BACK: Nontender without obvious deformity. No CVA tenderness. Pt update on day of discharge Patient is currently doing well. No acute concerns. No fever, chills. Hospital Course This is a 68-year-old male with a PMH of HTN, A. fib, DM, h/o Megacolon s/p Colostomy and h/o Right Foot Infection who was brought to the ER secondary to AMS. On arrival, BP 177/87, HR 90, O2 sat 94% RA, Temp 101.5. WBC 17.3. Chemistry essentially unremarkable. INR 1.2. UA negative for UTI. +agitation requiring Ativan for imaging studies. CT Head with no acute findings. CXR with left base infiltrate. Foot X-ray with resorption of second third toe distal phalanges, most acute and appearing at the level of the second digit, extensive chronic changes elsewhere. On exam, foot wound w/ foul-smelling, purulent drainage. S/p Wound/Blood Cultures, Rocephin/Zithr in ER. Sepsis - temp 101.5, HR 90, WBC 17, Source-PNA/Foot Infection Probable pneumonia - no pneumonia symptoms clinically. Diabetic foot infection Left foot osteomyelitis - ID And podiatry following - Likely surgery 03/11/2018 (Amputation of the left second toe.) - Continue Vancomycin and Cipro/Flagyl. Per ID and Podiatry, PO meds on discharge. Diabetes mellitus - continue sliding scale insulin. Add Levemir 10 units QHS. Metabolic encephalopathy - likely from infection. Much improved. Pt Condition on Discharge: Good Discharge Disposition: Disch w/ Home Health Serv Discharge Time: > 30 minutes Discharge Instructions DIET: Follow Instructions for: Diabetic Diet Activities you can perform: Regular-No Restrictions New Medications: Insulin Aspart Inj (Novolog Inj) 1,000 Unit/10 Ml Vial 1-9 UNITS SQ ACHS for Blood Sugar Management, #10 ML 0 Refills Max dose at bedtime:( )units; sugars less than 70,(0)units; sugars 150-199,(1) unit; sugars 200-249,(3) units; sugars 250-299,(5) units; sugars 300-349,(7) units; sugars greater than 349,(9) units Lactobacillus Acidophilus (Lactinex) 1 Chew 1 TAB CHEW TID for Nutritional Supplement, #63 TAB 0 Refills Tramadol (Tramadol) 50 Mg Tab 50 MG PO Q8H PRN for PAIN, #12 TAB 0 Refills Ciprofloxacin (Ciprofloxacin) 750 Mg Tab 750 MG PO Q12HR for Infection, #28 TAB Metronidazole (Flagyl) 500 Mg Tab 500 MG PO Q8HR for Infection, #42 TAB Changed Medications: Insulin Detemir Inj (Levemir Inj) 1,000 unit/ 10 ML Vial 12 UNITS SQ HS for diabetes for 30 Days, #30 INJECTION (Changed from: 15 UNITS) Do not mix with any other Insulin. Continued Medications: Advocate Insulin Syringe/ 29G X 1/2" 0.3 ml (Advocate Insulin Syringe/ 29G X 1/2 " 0.3 ml) 29 Gauge X 1/2" Mis BOX .XX DIRECTED for Blood Sugar Management, #1 0 Refills Insulin Pen Needle (Pen [place] 29GX1/2" 29G X 12Mm) 29 Gauge X 1/2" Mis EA .XX DIRECTED for Blood Sugar Management, #1 0 Refills Lancets (Lancets) 1 Mis Mis EA .XX DIRECTED for Blood Sugar Management, #1 0 Refills Metformin (Metformin) 1,000 Mg Tab 1000 MG PO BIDPC for Blood Sugar Management, #60 TAB 0 Refills Discontinued Medications: Ampicillin Inj (Ampicillin Inj) 1 Gram Inj 2 GM IV Q6H for Infection for 28 Days, BAG 0 Refills Insulin Detemir Inj (Levemir Inj) 1,000 unit/ 10 ML Vial 15 UNITS SQ DAILYAC for diabetes for 30 Days, #30 INJECTION Do not mix with any other Insulin. Metronidazole (Flagyl) 500 Mg Tab 500 MG PO TID for Infection for 28 Days, TAB 0 Refills Parker Cuevas DO Mar 12, 2018 11:47
--- NOTE | 2018-03-12 11:49 | HHI.FF ---
Face to Face Verification Diagnosis: (1) DM (diabetes mellitus) (2) Sepsis (3) Osteomyelitis Physical Therapy Order: Evaluate and Treat, Improve ambulation, Strength and gait training Home Health Nursing Order: Medical education Signs/symptoms of disease process Diabetic education Medication education-adverse effect Wound care and dressing changes Nursing assessment with vital signs I have seen patient [place] on 03/12/18. My clinical findings support the need for the requested home health care services because: Ltd mobility - disease progression Patient has SOB Deconditioned w/ increased weakness Limited ability to care for self Need for psychosocial assistance High risk of falls Infection w/ risk of complications I certify that my clinical findings support that this patient is homebound because: Post-op weakness Unsteady gait/balance Unsafe to leave home unassisted Need for psychosocial assistance Unable to use public transportation Parker Cuevas DO Mar 12, 2018 11:48 am
--- NOTE | 2018-03-12 12:54 | HHI.IDPN ---
Subjective Subjective Remarks Patient is a 68-year-old male, admitted to the hospital, after his neighbor found him with confusion, and with a broken colostomy bag, and he was covered in feces. He also had a temperature of 101. Patient is not a good historian. According to him his nephew has been living with her because he has not been able to take care of himself. The nephew is not available for any further history. Patient was febrile in the emergency room. His WBC was 17,000. Urinalysis was unremarkable. Patient currently still does not give any good history. He was noted to have some draining wounds on his left foot with foul- smelling drainage. Chest x-ray has a left base opacity. CT of the head did not show any acute findings. X-ray of the left foot showing resorption of the distal phalanges of the second and third toes. Infectious disease consultation has been requested to evaluate the patient. He is currently afebrile, and his WBC is better. Notes reviewed Temps ok C/O constipation Podiatry notes reviewed Had amputation of second toe C/S intraop pending Path pending MRI foot with osteo of second digit L Wound C/S - normal skin ino, mixed enterics including proteus, cannot R/O anaerobes due to Proteus Poor historian Antibiotics Vancomycin Cipro Flagyl Current Medications Medications (Trade) Dose Ordered Sig/Jeremias Route Start Time Stop Time Status Last Admin Pharmacy Profile Note 0 ml @ 0 mls/hr UNSCH OTHER 03/08/18 23:00 Sodium Chloride 1,000 ml @ 100 mls/hr Q10H IV 03/08/18 22:59 03/12/18 10:22 (NS Flush) 2 ml UNSCH PRN IV FLUSH 03/08/18 23:00 (NS Flush) 2 ml BID IV FLUSH 03/09/18 09:00 03/12/18 10:19 (Zofran Inj) 4 mg Q6H PRN IVP 03/08/18 23:00 (Tylenol) 650 mg Q6H PRN PO 03/08/18 23:00 (Diane-Colace) 1 tab BID PO 03/09/18 09:00 03/12/18 10:18 (Milk Of Magnesia Liq) 30 ml Q12H PRN PO 03/08/18 23:00 (Senokot) 17.2 mg Q12H PRN PO 03/08/18 23:00 (Dulcolax Supp) 10 mg DAILY PRN RECTAL 03/08/18 23:00 (Lactulose Liq) 30 ml DAILY PRN PO 03/08/18 23:00 (Heparin Inj) 5,000 units Q12HR SQ 03/09/18 09:00 Future Hold 03/10/18 08:30 (D50w (Vial) Inj) 50 ml UNSCH PRN IV PUSH 03/09/18 01:15 (Glucagon Inj) 1 mg UNSCH PRN OTHER 03/09/18 01:15 (NovoLOG SUPPLEMENTAL SCALE) 1 ACHS SLIDING SCALE SQ 03/09/18 08:00 03/12/18 10:20 (Vasotec Inj) 2.5 mg Q6H PRN IV PUSH 03/09/18 22:00 03/09/18 22:47 (Cipro) 750 mg Q12HR PO 03/10/18 16:00 03/12/18 10:19 (Flagyl) 500 mg Q8HR PO 03/10/18 15:00 03/12/18 05:10 Lactated Ringer's 1,000 ml @ 30 mls/hr Q24H PRN IV 03/11/18 04:15 03/14/18 04:14 Sodium Chloride 500 ml @ 30 mls/hr [id number] PRN IV 03/11/18 04:15 03/14/18 04:14 (Betadine 5% Antisepsis Kit) 1 applic PLASTIC SURGERY ASSISTANT PRN EACH NARE 03/11/18 04:15 03/14/18 04:14 (Chlorhexidine 2% Cloth) 3 pack PLASTIC SURGERY ASSISTANT PRN TOPICAL 03/11/18 04:15 03/14/18 04:14 (Levemir Inj) 10 units HS SQ 03/11/18 21:00 03/11/18 21:00 Vancomycin HCl 1500 mg/Sodium Chloride 515 ml @ 257.5 mls/ hr Q12H IV 03/11/18 18:00 03/12/18 05:12 Miscellaneous Information SPECIFIC LAB TO BE [facility]... ONCE ONCE .XX 03/12/18 17:45 03/12/18 17:46 Miscellaneous Information ALL NURSING DEPARTME... UNSCH PRN .XX 03/11/18 17:05 03/12/18 17:04 Lines Line no evidence of infection Past Medical History HTN A. 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 coli and anaerobes Allergies: Coded Allergies: Influenza Virus Vaccines (Verified Allergy, Severe, Anaphylaxis, 01/02/18) *MDRO Multi-Drug Resistant Organism (Verified Adverse Reaction, Unknown, ) 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 Objective . Vital Signs Date Time Temp Pulse Resp B/P (MAP) Pulse Ox O2 Delivery O2 Flow Rate FiO2 03/12/18 08:00 98.0 67 18 141/65 (90) 97 03/12/18 05:30 98.3 63 16 133/63 (86) 96 03/12/18 00:15 98.8 80 18 130/72 (91) 98 03/12/18 00:00 87 03/11/18 21:00 87 03/11/18 20:45 97.9 77 17 139/74 (95) 96 03/11/18 17:30 70 23 121/60 (80) 98 Room Air 03/11/18 17:15 74 23 117/56 (76) 98 Room Air 03/11/18 17:05 97.6 77 12 133/64 (87) 97 Room Air 03/11/18 16:00 99.0 74 18 139/66 (90) 96 . Laboratory Tests Test 03/12/18 07:47 Creatinine 0.89 MG/DL Estimat Glomerular Filtration Rate 85 ML/MIN Microbiology Date/Time Source Procedure Growth Status 03/11/18 16:42 Wound Toe Fungal Smear - Final NO FUNGAL ELEMENTS SEEN. Resulted 03/11/18 16:42 Wound Toe Fungal Culture Pending Resulted 03/11/18 16:42 Wound Toe Acid Fast Stain Pending Received 03/11/18 16:42 Wound Toe Mycobacterial Culture Pending Received 03/11/18 16:42 Wound Toe Gram Stain - Final Resulted 03/11/18 16:42 Wound Toe Wound Culture Pending Resulted Imaging Foot X-Ray 03/09/18 0000 Signed Impressions: Service Date/Time: Friday, March 09, 2018 14:41 - CONCLUSION: 1. Interval more proximal amputation through the diaphysis of the fifth metatarsal. 2. Old healed fracture deformities of the first through third metatarsals. Stable degenerative osteoarthritic changes of multiple interphalangeal joints. 3. Small calcaneal spur at the plantar aponeurosis with probable calcification of the aponeurosis itself. 4. No plain film findings of osteomyelitis or soft tissue ulceration Bj Meza MD Chest X-Ray 03/08/18 1725 Signed Impressions: Service Date/Time: Thursday, March 08, 2018 17:50 - CONCLUSION: Mild left base infiltrate Frank Strauss MD Head CT 03/08/18 0000 Signed Impressions: Service Date/Time: Thursday, March 08, 2018 21:45 - CONCLUSION: No acute disease. Frank Quinones MD Physical Exam GENERAL: awake and alert, not in respiratory distress. SKIN: Warm and dry. No generalized rash. HEAD: Atraumatic. Normocephalic. No temporal wasting, or tenderness. EYES: [place] conjunctiva. No petechia or hemorrhage. Pupils equal, round and reactive to light. Extraocular movements full and intact. No scleral icterus. No injection or drainage. EARS, NOSE AND THROAT: Nose without bleeding or purulent nasal discharge. No sinus tenderness. Mucous membranes pink and moist. No oral lesions noted. NECK: Trachea midline. Supple and not tender, no meningeal signs CARDIOVASCULAR: Regular rate and rhythm. No murmurs, rubs or gallops heard RESPIRATORY: Clear to auscultation. Breath sounds equal bilaterally. No rales , wheezing or rhonchi ABDOMEN: Soft, non-tender, nondistended. Bowel sounds present and normoactive. No guarding. No rebound. No organomegaly. EXTREMITIES: No clubbing, cyanosis, or edema. No joint effusion, has good ROM. No calf tenderness. Well perfused and warm. Dressing to the L foot is dry and intact. NEUROLOGICAL: Awake and alert. Cranial nerves grossly intact. Motor grossly within normal limits. PSYCHIATRIC: Normal affect, calm and cooperative. LINE: No evidence of infection Assessment & Plan Remarks IMPRESSION Sepsis present on admission, resolved - source ?DFI L foot - has osteo 2nd toe on MRI - has opacity L lung, currently no PNA symptoms DM Episode of R DFI December 2017 RECOMMENDATION Agree with plan 2 weeks po Cipro and Flagyl - infected toe has been removed (had amp 2nd toe and disarticulation) - D/C meds reviewed Patient to be followed by podiatry on discharge Yaquelin Escalera MD Mar 12, 2018 12:54
[2018-03-12] MEDS ORDERED: PHARMACY ORDERED LAB ONE (17:45)
== END 2018-03-12 15:00 | disposition home health service (06) | DRG 853 ==
LOC: NEPC 17:13 → NEDA 22:58 → N05B 03-09 00:28
PROVIDERS: ADMIT Hospitalist; ATTEND Hospitalist
PROC: 0Y6S0Z0 Detachment at Left 2nd Toe, Complete, Open Approach (ICD-10-PCS; principal; 2018-03-11 16:30)
DX: A41.9 Sepsis, unspecified organism (principal); J18.9 Pneumonia, unspecified organism; G93.40 Encephalopathy, unspecified; M86.9 Osteomyelitis, unspecified; I48.91 Unspecified atrial fibrillation; L03.116 Cellulitis of left lower limb; E11.621 Type 2 diabetes mellitus with foot ulcer; E11.40 Type 2 diabetes mellitus with diabetic neuropathy, unspecified; L97.529 Non-pressure chronic ulcer of other part of left foot with unspecified severity; E11.628 Type 2 diabetes mellitus with other skin complications; E11.69 Type 2 diabetes mellitus with other specified complication; I10 Essential (primary) hypertension; K59.00 Constipation, unspecified; R00.0 Tachycardia, unspecified; Z89.421 Acquired absence of other right toe(s); Z93.3 Colostomy status; Z79.4 Long term (current) use of insulin
CPT/HCPCS: 51702; 70450; 71045; 73620; 73630; 73720; 80053; 80202; 80307; 81001; 82565; 82805; 82948; 83605; 83735; 85025; 85610; 85652; 85730; 86140; 86403; 87015; 87040; 87070; 87077; 87102; 87116; 87186; 87205; 87206; 88305; 88311; 93005; 96361; 96365; 96366; 96368; 96375; A9579; J0131; J0456; J0692; J0696; J1644; J1815; J1885; J2060; J2543; J3010; J3370; J7030; J7040; J7050; L3260

== ENCOUNTER 2018-08-28 12:08 | Inpatient (IN) ==
--- NOTE | 2018-08-28 12:50 | XR ---
EXAM DATE: 08/28/2018 12:34 PM EDT AGE/SEX: 68 years / Male INDICATIONS: Shortness of breath. CLINICAL DATA: This is the patient's initial encounter. Patient reports that signs and symptoms have been present for 1 day and indicates a pain score of 0/10. MEDICAL/SURGICAL HISTORY: Osteoarthritis. Gastroesophageal reflux disease. Arthritis. Megaco nura. Diabetes. Colostomy. COMPARISON: [facility] [place], CHEST SINGLE AP, 03/08/2018. . FINDINGS: A single AP view of the chest demonstrates the lungs to be symmetrically aerated without evidence of mass, infiltrate or effusion. The cardiomediastinal contours are unremarkable. Degenerative changes are noted throughout the thoracic spine. CONCLUSION: No acute cardiopulmonary disease. Electronically signed by: Elvin Singleton MD 08/28/2018 12:49 PM EDT
--- NOTE | 2018-08-28 12:51 | ED ---
HPI General Chief complaint: Abdominal Pain Stated complaint: abd pain/evac Time Seen by Provider: 08/28/18 12:23 Source: patient Mode of arrival: EMS Limitations: no limitations History of Present Illness HPI narrative: This 68-year-old male planing of generalized weakness. He says that he has a history of diabetes and has been on medications. He has not been on insulin in the past. He does have a history of atrial fibrillation. He says his blood sugar has been over 600. He says that he is unable to get any medical care. He had been having some home health but they are apparently not coming now. He has been admitted here in the past for sepsis related to foot infections. He does have an infection on the left ankle. He is not aware of fever or chills. He has a colostomy. He said he had a colon resection because his colon was too big. He denies any chest pain or shortness of breath. He did vomit today. He says that he was so weak today that he was unable to get out of bed. Patient says that he has not been on insulin but review of old chart shows that he has been released with prescriptions for insulin in the past. He has had extensive infection of his feet requiring surgery Related Data Home Medications Medication Instructions Recorded Confirmed No Known Home Medications 08/28/18 08/28/18 Allergies Allergy/AdvReac Type Severity Reaction Status Date / Time Influenza Virus Vaccines Allergy Severe Anaphylaxis Verified 08/28/18 12:12 *MDRO Multi-Drug Resistant AdvReac Unknown Flushing Uncoded 08/28/18 12:12 Organism Review of Systems ROS: all other systems reviewed are negative Constitutional Reports excessive sweating, Reports weakness and Reports weight loss PMFSH Social History Social History Substance History: No History of Abuse Second Hand Smoke Exposure: No Smoking Status: Never smoker How Often Do You Have a Drink Containing Alcohol: Never Recent Travel in [facility] within the Last 8 Weeks: No Recent Out of Country Travel within the Last 8 Weeks: No Immunization History Tetanus Immunization: <5 Years Hx Influenza Vaccine This Season: No Exam Narrative Exam Narrative: GENERAL: Disheveled male appears quite dehydrated. Mucous membranes are very dry. There is temporal wasting SKIN: Focused skin assessment warm/dry. HEAD: Atraumatic. Normocephalic. EYES: Pupils equal and round. No scleral icterus. No injection or drainage. ENT: No nasal bleeding or discharge. Mucous membranes dry NECK: Trachea midline. No JVD. CARDIOVASCULAR: Irregular rate and rhythm. No murmur appreciated. RESPIRATORY: No accessory muscle use. Clear to auscultation. Breath sounds equal bilaterally. GASTROINTESTINAL: Abdomen soft, obese. There is a colostomy site with no wafer or bag MUSCULOSKELETAL: No obvious deformities. No clubbing. No cyanosis. No edema. Area of erythema on the lateral aspect of his left ankle. There are some small areas of erythema on the toes of both feet. He has had extensive surgery of his feet NEUROLOGICAL: Awake and alert. No obvious cranial nerve deficits. Motor grossly within normal limits. Normal speech. PSYCHIATRIC: Appropriate mood and affect; insight limited Course Initial Documented Vital Signs Temperature 99 F 08/28/18 12:09 Pulse Rate 80 08/28/18 12:09 Respiratory Rate 14 08/28/18 12:09 Blood Pressure 100/55 L 08/28/18 12:09 Pulse Oximetry 98 08/28/18 12:09 Last Documented Vital Signs Temperature 99 F 08/28/18 12:09 Pulse Rate 108 H 08/28/18 14:30 Respiratory Rate 18 08/28/18 14:30 Blood Pressure 137/59 L 08/28/18 14:30 Pulse Oximetry 97 08/28/18 14:30 Medical Decision Making [facility] Narrative Medical decision making narrative: Gentleman with diabetes and history of extensive foot infections he now has not been diabetes with elevation of his white count. Sepsis is not clear he does have some infection of his ankle. His lactate is elevated he has been given IV fluids and antibiotics. Medical Screen Exam Complete: Yes Emergency Medical Condition: Yes Differential Diagnosis Differential Diagnosis: Differential includes sepsis, pneumonia, UTI, cellulitis Lab Data Result diagrams: 08/28/18 13:19 08/28/18 13:19 Lab Results 08/28/18 08/28/18 08/28/18 Range/Units 12:34 13:19 13:19 CBC w Diff Slide review pending WBC 27.7 H (4.0-11.0) th/mm3 RBC 4.40 L (4.50-5.90) mil/mm3 Hgb 13.0 (13.0-17.0) gm/dL Hct 38.1 L (39.0-51.0) % MCV 86.5 (80.0-100.0) fL MCH 29.5 (27.0-34.0) pg MCHC 34.2 (32.0-36.0) % RDW 12.7 (11.6-17.2) % Plt Count 229 (150-450) th/mm3 MPV 7.8 (7.0-11.0) fL Neut % (Auto) 93.7 H (16.0-70.0) % Lymph % (Auto) 2.1 L (9.0-44.0) % [place] % (Auto) 2.6 (0.0-8.0) % Eos % (Auto) 0.0 (0.0-4.0) % Baso % (Auto) 1.6 (0.0-2.0) % Neut # (Auto) 26.0 H (1.8-7.7) th/mm3 Lymph # (Auto) 0.6 L (1.0-4.8) th/mm3 [place] # (Auto) 0.7 (0.0-0.9) th/mm3 Eos # (Auto) 0.0 (0.0-0.4) th/mm3 Baso # (Auto) 0.4 H (0.0-0.2) th/mm3 WBC Differential . Diff Scan Auto diff confirmed Differential Comment . Sodium 124 L* (136-145) meq/L Potassium 4.4 (3.5-5.1) meq/L Chloride 90 L (98-107) meq/L Carbon Dioxide 21.2 (21.0-32.0) meq/L Anion Gap 13 (5-15) meq/L BUN 22 H (7-18) mg/dL Creatinine 2.20 H (0.60-1.30) mg/dL Estimated GFR 30 L (>89) mL/min Random Glucose 541 H* (74-106) mg/dL Lactic Acid (0.4-2.0) mmol/L Calcium 7.9 L (8.5-10.1) mg/dL Lipase 43 L (73-393) U/L Beta-Hydroxybutyric Acd 0.53 H (0.00-0.39) mmol/L 08/28/18 Range/Units 14:00 CBC w Diff WBC (4.0-11.0) th/mm3 RBC (4.50-5.90) mil/mm3 Hgb (13.0-17.0) gm/dL Hct (39.0-51.0) % MCV (80.0-100.0) fL MCH (27.0-34.0) pg MCHC (32.0-36.0) % RDW (11.6-17.2) % Plt Count (150-450) th/mm3 MPV (7.0-11.0) fL Neut % (Auto) (16.0-70.0) % Lymph % (Auto) (9.0-44.0) % [place] % (Auto) (0.0-8.0) % Eos % (Auto) (0.0-4.0) % Baso % (Auto) (0.0-2.0) % Neut # (Auto) (1.8-7.7) th/mm3 Lymph # (Auto) (1.0-4.8) th/mm3 [place] # (Auto) (0.0-0.9) th/mm3 Eos # (Auto) (0.0-0.4) th/mm3 Baso # (Auto) (0.0-0.2) th/mm3 WBC Differential Diff Scan Differential Comment Sodium (136-145) meq/L Potassium (3.5-5.1) meq/L Chloride (98-107) meq/L Carbon Dioxide (21.0-32.0) meq/L Anion Gap (5-15) meq/L BUN (7-18) mg/dL Creatinine (0.60-1.30) mg/dL Estimated GFR (>89) mL/min Random Glucose (74-106) mg/dL Lactic Acid 3.5 H (0.4-2.0) mmol/L Calcium (8.5-10.1) mg/dL Lipase (73-393) U/L Beta-Hydroxybutyric Acd (0.00-0.39) mmol/L Imaging Data Radiologist's impression: Chest X-Ray 08/28/18 12:34 CONCLUSION: No acute cardiopulmonary disease. Discharge Plan Discharge Disposition Patient Disposition: 30 Still Patient Discharge Condition Condition: Fair Discharge Details Diagnosis: Sepsis Physicians Team ED Provider: Emil Harper Primary Care Provider: Primary Care Physici,No Rxs /Orders / Referrals /Forms Prescriptions: No Action No Known Home Medications RF: 0 Status ED Status: With Doctor
[2018-08-28 13:33] LABS: Baso # (Auto) 0.4 th/mm3 (0.0-0.2); Baso % (Auto) 1.6 % (0.0-2.0); Hematocrit 38.1 % (39.0-51.0); Lymph # (Auto) 0.6 th/mm3 (1.0-4.8); Lymph % (Auto) 2.1 % (9.0-44.0); Mean Corpuscular HGB Conc 34.2 % (32.0-36.0); Mean Corpuscular Hemoglobin 29.5 pg (27.0-34.0); Mean Corpuscular Volume 86.5 fL (80.0-100.0); Mean Platelet Volume 7.8 fL (7.0-11.0); Mono # (Auto) 0.7 th/mm3 (0.0-0.9); Mono % (Auto) 2.6 % (0.0-8.0); Neut % (Auto) 93.7 % (16.0-70.0); Platelet Count 229 th/mm3 (150-450); Red Cell Distribution Width 12.7 % (11.6-17.2); White Blood Count 27.7 th/mm3 (4.0-11.0)
[2018-08-28] MEDS ORDERED: Piperacil/Tazo 4.5 GM Premix 4.5 GM/100 ML BAG IV.SIG ONE (13:49)
[2018-08-28] MEDS ORDERED: Vancomycin Inj 1,500 MG in Sodium Chlor 0.9% Inj 500 ML IV.SIG ONE (13:49)
[2018-08-28 13:56] LABS: Calcium 7.9 mg/dL (8.5-10.1); Carbon Dioxide 21.2 meq/L (21.0-32.0); Potassium 4.4 meq/L (3.5-5.1)
[2018-08-28 14:14] LABS: Beta Hydroxybutyric Acid 0.53 mmol/L (0.00-0.39)
[2018-08-28] MEDS: Sod Chloride 0.9% Inj 1,000 ML IV.SIG SCH (14:22)
[2018-08-28] MEDS ORDERED: Sod Chloride 0.9% Inj 1,000 ML IV.SIG SCH ×3 (14:30→19:00)
[2018-08-28 15:22] LABS: Lipase 43 U/L (73-393)
[2018-08-28] MEDS ORDERED: Dextrose 50% in Water 50 ML Vial IV.PUSH PRN (15:28)
[2018-08-28] MEDS ORDERED: Vancomycin Consult Pharmacy OTHER PRN (15:28)
[2018-08-28] MEDS ORDERED: Bisacodyl 10 MG Supp RECTAL PRN (15:32)
[2018-08-28 15:46] LABS: Creatine Kinase 51 U/L (39-308)
[2018-08-28] MEDS: Sod Chloride 0.9% Inj 1,000 ML IV.CONT SCH (17:50)
[2018-08-28] MEDS: Heparin - SQ 10,000 UNITS/ML Vial SQ SCH (17:50)
[2018-08-28] MEDS: Insulin NovoLOG Aspart Correctional Sugar Inj SQ SCH ×2 (17:51→22:33)
--- NOTE | 2018-08-28 18:01 | P.HP ---
History of Present Illness Primary Care Physician: No Primary Care Physician Chief Complaint: Generalized weakness History of Present Illness: This is a 68-year-old male with a history of diabetes mellitus, A. 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 Surgical history also includes tonsillectomy and right foot resection. No pertinent family history denies CAD or diabetes mellitus. Today , patient fell from his chair and was unable to get up because of generalized weakness. He did not sustain any injuries. His nephew called 911 and was brought to the hospital. He also complained of nausea and vomiting x2. No bloody emesis, fever, chills, abdominal pain, diarrhea and UTI symptoms. States he has been out of medication for over a month because of financial constraints. His glucose was 541 with a beta hydroxybutyrate of 0.53 and anion gap of 13. He complains of blurred vision, polyuria, polydipsia and polyphagia. He was started on aggressive IV hydration and received 15 units of regular insulin. Repeat fingerstick is down to 350. He also was started on Zosyn and vancomycin because of severe sepsis from infected left ankle wound. While in the emergency department, he was noted to have urine leaking from his left inguinal area which the patient was not aware of. I remember taking care of this patient when he had Tony's gangrene of the scrotum back in 2017. He underwent surgical debridement and later staged wound closure with local advancement flap. All other systems reviewed negative. Chest x-ray image interpreted by me with no acute cardiopulmonary disease. EKG tracing independently reviewed by me with sinus tachycardia. No acute ST elevation Inpatient Certification: I certify that the inpatient services were ordered in accordance with Medicare regulations governing the order. This includes certification that hospital inpatient services are reasonable and necessary and in the case of services not specified as inpatient-only under 42 CFR 419.22(n), that they are appropriately provided as inpatient services in accordance to with the 2-midnight benchmark under 43 CFR 412.3(e) Estimated Total Length of Stay (Days): 2 Plans for Post Hospital Care: Not yet determined Review of Systems All other systems reviewed negative except as stated in HPI PMFSH - History History 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 - Tobacco History Second Hand Smoke Exposure: No Tobacco Use In Past 30 Days: No Smoking Status: Never smoker - Alcohol History How Often Do You Have a Drink Containing Alcohol: Never - Substance Use History Substance History: No History of Abuse - Travel History Recent Travel in the [place] Within the Last 8 Weeks: No Recent Travel Out of the Country Within the Last 8 Weeks: No - Immunization History Tetanus Immunization: <5 Years Hx Influenza Vaccine This Season: No Medications and Allergies Active Medications: Active Medications Acetaminophen (Tylenol) 650 mg PO Q4H PRN PRN Reason: Temp > 100.4 Bisacodyl (Dulcolax Supp) 10 mg RECTAL DAILY PRN PRN Reason: SEVERE CONSITIPATION Dextrose (D50w Vial) 50 ml IV.PUSH UNSCH PRN PRN Reason: PER HYPOGLYCEMIA PROTOCOL Glucagon (Glucagon Inj) 1 mg OTHER PRN PRN PRN Reason: for Hypoglycemia Protocol Heparin Sodium (Porcine) (Heparin Inj) 5,000 units SQ Q12H [facility] Sodium Chloride (Ns Inj) 1,000 mls @ 0 mls/hr IV.SIG BOLUS SHREYAS Last Infusion: 08/28/18 15:46 Dose: Infused Sodium Chloride (Ns Inj) 1,000 mls @ 0 mls/hr IV.SIG BOLUS SHREYAS Sodium Chloride (Ns Inj) 1,000 mls @ 0 mls/hr IV.SIG BOLUS SHREYAS Last Admin: 08/28/18 15:51 Dose: 1,000 mls/hr Piperacillin/Tazobactam/Dextrose (Zosyn 3.375 Gm Premix) 50 mls @ 100 mls/hr IV.SIG Q6H [facility] Sodium Chloride (Ns Inj) 1,000 mls @ 100 mls/hr IV.CONT .Q10H [facility] Vancomycin HCl 1,700 mg/ (Sodium Chloride) 517 mls @ 344.667 mls/hr IV.SIG Q24H [facility] Insulin Aspart (Novolog Insulin Correctional Sugar Inj) 0 unit SQ ACHS AND 3AM SHREYAS; Protocol Lactulose (Lactulose Liq) 30 ml PO DAILY PRN PRN Reason: SEVERE CONSITIPATION Miscellaneous Information ([facility] Ordered Lab Info) 0 each OTHER ONCE ONE Stop: 08/31/18 13:46 Nystatin (Mycostatin Cream) 1 applicatio TOPICAL QID SHRE[facility]AS Ondansetron HCl (Zofran Inj) 4 mg IV.PUSH Q6H PRN PRN Reason: NAUSEA OR VOMITING Pharmacy Profile Note (Vancomycin Consult Pharmacy) 1 each OTHER UNSCH PRN PRN Reason: Pharmacy to dose Senna/Docusate Sodium (Diane-Colace) 1 tab PO BID [facility] Sennosides (Senokot) 17.2 mg PO Q12H PRN PRN Reason: Moderate Constipation Allergies Allergy/AdvReac Type Severity Reaction Status Date / Time Influenza Virus Vaccines Allergy Severe Anaphylaxis Verified 08/28/18 12:12 *MDRO Multi-Drug Resistant AdvReac Unknown Flushing Uncoded 08/28/18 12:12 Organism Home Medications Medication Instructions Recorded Confirmed Type No Known Home Medications 08/28/18 08/28/18 History Exam Vital signs: Vital Signs 08/28/18 12:09 08/28/18 14:30 08/28/18 16:00 Temperature 99 F Pulse Rate 80 108 H 108 H Respiratory Rate 14 18 20 Blood Pressure 100/55 L 137/59 L 127/56 L Pulse Oximetry 98 97 100 08/28/18 16:03 Temperature Pulse Rate 108 H Respiratory Rate Blood Pressure Pulse Oximetry Intake & Output 08/27/18 08/28/18 08/28/18 18:59 06:59 18:59 Intake Total 1100 / 1100 Balance 1100 / 1100 Weight 100 kg Intake: IV 1100 / 1100 Zosyn 4.5 GM Premix 4.5 gm In 100 / 100 100 ml @ 200 mls/hr IV.SIG ONCE ONE Rx#:[id number] NS Inj 1,000 ML @ Wide Open IV. 1000 / 1000 SIG BOLUS [facility]REYAS Rx#:[id number] Narrative: GENERAL: Well-developed, well-nourished in no distress. He looks dehydrated SKIN: Warm and dry. Tinea cruris with stage I sacral and stage II ulcers x2 in the left gluteal HEAD: Atraumatic. Normocephalic. EYES: Pupils equal and round. No scleral icterus. No injection or drainage. ENT: No nasal bleeding or discharge. Dry oral mucosa NECK: Trachea midline. No JVD. CARDIOVASCULAR: Regular rate and rhythm. RESPIRATORY: No accessory muscle use. Clear to auscultation. Breath sounds equal bilaterally. GASTROINTESTINAL: Abdomen soft, non-tender, nondistended. Colostomy in place. There is a fistula in the left inguinal area draining urine MUSCULOSKELETAL: Extremities without clubbing, cyanosis, or edema. No obvious deformities. Surgically missing right fifth and left second toes. Superficial ulcer left lateral ankle with surrounding erythema positive tenderness no active drainage. Right fourth toe with erythema NEUROLOGICAL: Awake and alert. No obvious cranial nerve deficits. Motor grossly within normal limits. Five out of 5 muscle strength in the arms and legs. Normal speech. PSYCHIATRIC: Appropriate mood and affect; insight and judgment normal. Results - Labs CBC & Chem 7: 08/28/18 13:19 08/28/18 13:19 Labs: Laboratory Results - last 24 hr 08/28/18 08/28/18 08/28/18 12:34 13:19 13:19 CBC w Diff Slide review pending WBC 27.7 H RBC 4.40 L Hgb 13.0 Hct 38.1 L MCV 86.5 MCH 29.5 MCHC 34.2 RDW 12.7 Plt Count 229 MPV 7.8 Neut % (Auto) 93.7 H Lymph % (Auto) 2.1 L [place] % (Auto) 2.6 Eos % (Auto) 0.0 Baso % (Auto) 1.6 Neut # (Auto) 26.0 H Lymph # (Auto) 0.6 L [place] # (Auto) 0.7 Eos # (Auto) 0.0 Baso # (Auto) 0.4 H WBC Differential . Diff Scan Auto diff confirmed Differential Comment . Sodium 124 L* Potassium 4.4 Chloride 90 L Carbon Dioxide 21.2 Anion Gap 13 BUN 22 H Creatinine 2.20 H Estimated GFR 30 L POC Glucose Random Glucose 541 H* Lactic Acid Calcium 7.9 L Total Creatine Kinase 51 Lipase 43 L Beta-Hydroxybutyric Acd 0.53 H 08/28/18 08/28/18 08/28/18 14:00 15:56 17:21 CBC w Diff WBC RBC Hgb Hct MCV MCH MCHC RDW Plt Count MPV Neut % (Auto) Lymph % (Auto) [place] % (Auto) Eos % (Auto) Baso % (Auto) Neut # (Auto) Lymph # (Auto) [place] # (Auto) Eos # (Auto) Baso # (Auto) WBC Differential Diff Scan Differential Comment Sodium Potassium Chloride Carbon Dioxide Anion Gap BUN Creatinine Estimated GFR POC Glucose 416 H 340 H Random Glucose Lactic Acid 3.5 H Calcium Total Creatine Kinase Lipase Beta-Hydroxybutyric Acd - Imaging Impressions Chest X-Ray 08/28/18 12:34 CONCLUSION: No acute cardiopulmonary disease. Caprini VTE Risk Assessment Caprini VTE Risk Assessment: Moderate/High Risk (score >= 2) Caprini Risk Assessment Model: Point Value = 1 Point Value = 2 Point Value = 3 Point Value = 5 Age 41-60 Minor surgery BMI > 25 kg/m2 Swollen legs Varicose veins or History of unexplained or recurrent spontaneous Oral contraceptives or hormone replacement Sepsis (< 1 month) Serious lung disease, including pneumonia (< 1 month) Abnormal pulmonary function Acute myocardial infarction Congestive heart failure (< 1 month) History of inflammatory bowel disease Medical patient at bed rest Age 61-74 Arthroscopic surgery Major open surgery (> 45 min) Laparoscopic surgery (> 45 min) Malignancy Confined to bed (> 72 hours) Immobilizing plaster cast Central venous access Age >= 75 History of VTE Family history of VTE Factor V Leiden Prothrombin [id number] Lupus anticoagulant Anticardiolipin antibodies Elevated serum homocysteine Heparin-induced thrombocytopenia Other congenital or acquired thrombophilia Stroke (< 1 month) Elective arthroplasty Hip, pelvis, or leg fracture Acute spinal cord injury (< 1 month) Prophylaxis Regimen: Total Risk Factor Score Risk Level Prophylaxis Regimen 0-1 Low Early ambulation 2 Moderate Order ONE of the following: *Sequential Compression Device (SCD) *Heparin 5000 units SQ BID 3-4 Higher Order ONE of the following medications: *Heparin 5000 units SQ TID *Enoxaparin/Lovenox 40 mg SQ daily (WT < 150 kg, CrCl > 30 mL/min) *Enoxaparin/Lovenox 30 mg SQ daily (WT < 150 kg, CrCl > 10-29 mL/min) *Enoxaparin/Lovenox 30 mg SQ BID (WT < 150 kg, CrCl > 30 mL/min) AND/OR *Sequential Compression Device (SCD) 5 or more Highest Order ONE of the following medications: *Heparin 5000 units SQ TID (Preferred with Epidurals) *Enoxaparin/Lovenox 40 mg SQ daily (WT < 150 kg, CrCl > 30 mL/min) *Enoxaparin/Lovenox 30 mg SQ daily (WT < 150 kg, CrCl > 10-29 mL/min) *Enoxaparin/Lovenox 30 mg SQ BID (WT < 150 kg, CrCl > 30 mL/min) AND *Sequential Compression Device (SCD) Assessment and Plan - Plan This is a 68-year-old male with a history of diabetes mellitus, A. fib, hypertension, diabetic foot infection with osteomyelitis status post resection and megacolon status post colostomy. Today, patient fell from his chair and was unable to get up because of generalized weakness. He was found to have uncontrolled diabetes, acute kidney injury and diabetic foot infection involving left ankle and possibly right fourth toe Severe sepsis with diabetic foot infection. Continue IV Zosyn and vancomycin. Wound care and consult podiatry follow-up cultures Acute kidney injury secondary to sepsis and dehydration. CK within normal limits. Continue aggressive IV hydration follow-up urinalysis Uncontrolled diabetes secondary to noncompliance and sepsis. Glucose was 541 with a beta hydroxybutyrate of 0.53 and anion gap of 13. He was started on aggressive IV hydration and received 15 units of regular insulin. Repeat fingerstick is down to 350. Continue aggressive IV hydration monitor fingersticks with sliding scale coverage. Diabetic education. Pseudohyponatremia. Asymptomatic. Will monitor Fistula. Urine leaking from his left inguinal area. Hx Tony's gangrene of the scrotum back in 2017. He underwent surgical debridement and later staged wound closure with local advancement flap. Consult ROJELIO townsend. Nystatin cream Sacral and gluteal decub and colostomy. Wound care DVT prophylaxis with SCD and subcu heparin
[2018-08-28 18:19] LABS: Clarity,Urine Turbid (Clear); Color,Urine Yellow (Yellw/Straw)
[2018-08-28 18:20] LABS: Specific Gravity,Urine 1.015 (1.002-1.035)
[2018-08-28 18:21] LABS: Bilirubin,Urine Negative (Negative); Leukocyte Esterase,Urine Moderate (Negative); Nitrite,Urine Negative (Negative); Urobilinogen,Urine 0.2 mg/dL (Less than 2)
[2018-08-28 18:23] LABS: Bacteria,Urine Many /hpf; WBC,Urine Innumerable /hpf (0-5)
[2018-08-28] MEDS: Senna/Docusate Sodium 8.6/50 MG Tablet PO SCH (22:25)
[2018-08-28] MEDS: Piperacil/Tazo 3.375 GM Premix 50 ML IV.SIG SCH (22:26)
[2018-08-29] MEDS ORDERED: Sod Chloride 0.9% Inj 1,000 ML IV.SIG SCH ×2 (00:45→05:45)
[2018-08-29] MEDS: Sod Chloride 0.9% Inj 1,000 ML IV.SIG SCH ×4 (00:46→03:55)
[2018-08-29] MEDS: Sod Chloride 0.9% Inj 1,000 ML IV.CONT SCH ×3 (01:55→21:42)
[2018-08-29] MEDS: Piperacil/Tazo 3.375 GM Premix 50 ML IV.SIG SCH ×4 (03:29→21:43)
[2018-08-29] MEDS: Heparin - SQ 10,000 UNITS/ML Vial SQ SCH ×2 (03:55→18:09)
[2018-08-29 04:15] LABS: Eos # (Auto) 0.1 th/mm3 (0.0-0.4); Eos % (Auto) 0.4 % (0.0-4.0); Hematocrit 31.1 % (39.0-51.0); Hemoglobin 10.6 gm/dL (13.0-17.0); Lymph # (Auto) 1.2 th/mm3 (1.0-4.8); Lymph % (Auto) 5.9 % (9.0-44.0); Mean Corpuscular HGB Conc 33.9 % (32.0-36.0); Mean Corpuscular Hemoglobin 29.8 pg (27.0-34.0); Mean Platelet Volume 7.4 fL (7.0-11.0); Mono # (Auto) 0.6 th/mm3 (0.0-0.9); Neut # (Auto) 18.1 th/mm3 (1.8-7.7); Neut % (Auto) 90.7 % (16.0-70.0); Platelet Count 200 th/mm3 (150-450); Red Blood Count 3.54 mil/mm3 (4.50-5.90); Red Cell Distribution Width 12.1 % (11.6-17.2)
[2018-08-29 04:18] LABS: Albumin 1.7 g/dL (3.4-5.0); Calcium 7.2 mg/dL (8.5-10.1); Carbon Dioxide 20.2 meq/L (21.0-32.0); Potassium 3.9 meq/L (3.5-5.1); Total Protein 5.6 g/dL (6.4-8.2)
[2018-08-29] MEDS: Acetaminophen 325 MG Tablet PO PRN (04:19)
[2018-08-29] MEDS: Insulin NovoLOG Aspart Correctional Sugar Inj SQ SCH ×5 (04:21→21:43)
[2018-08-29] MEDS ORDERED: Albumin Human 25% Inj 100 ML IV.SIG ONE (05:31)
--- NOTE | 2018-08-29 10:27 | P.PN ---
Subjective Interval history: Follow-up septic shock. Patient received additional 3 L fluid bolus overnight because of persistent hypotension. Started on Levophed drip this morning. He also received IV albumin x1. Patient as usual has no complaints Physical Exam Vital signs: Vital Signs 08/28/18 12:09 08/28/18 14:30 08/28/18 16:00 Temperature 99 F Pulse Rate 80 108 H 108 H Respiratory Rate 14 18 20 Blood Pressure 100/55 L 137/59 L 127/56 L Pulse Oximetry 98 97 100 08/28/18 16:03 08/28/18 17:40 08/28/18 17:55 Temperature Pulse Rate 108 H 98 H 98 H Respiratory Rate 20 16 Blood Pressure 110/52 L 101/51 L Pulse Oximetry 99 98 08/28/18 19:00 08/28/18 19:09 08/28/18 20:00 Temperature Pulse Rate 94 H 95 H Respiratory Rate 18 Blood Pressure 95/50 L Pulse Oximetry 97 98 08/28/18 20:31 08/28/18 21:11 08/28/18 21:24 Temperature 99.5 F Pulse Rate 84 81 94 H Respiratory Rate 18 18 21 Blood Pressure 104/58 L 104/62 110/54 L Pulse Oximetry 98 98 08/28/18 23:00 08/29/18 00:14 08/29/18 00:17 Temperature Pulse Rate 88 88 Respiratory Rate 27 H 26 H Blood Pressure 82/33 L 88/45 L Pulse Oximetry 96 98 98 08/29/18 00:18 08/29/18 04:17 08/29/18 04:47 Temperature 98.6 F Pulse Rate 88 88 84 Respiratory Rate 26 H 20 23 Blood Pressure 91/44 L 99/46 L 95/43 L Pulse Oximetry 97 97 96 08/29/18 05:00 08/29/18 05:17 08/29/18 05:22 Temperature Pulse Rate 84 80 84 Respiratory Rate 27 H 27 H 23 Blood Pressure 87/43 L 87/39 L Pulse Oximetry 97 97 96 08/29/18 07:17 08/29/18 07:47 08/29/18 08:00 Temperature 98.7 F Pulse Rate 68 70 70 Respiratory Rate 21 23 21 Blood Pressure 89/39 L 86/41 L Pulse Oximetry 98 98 99 08/29/18 08:05 08/29/18 08:15 08/29/18 08:30 Temperature Pulse Rate 72 78 78 Respiratory Rate 18 26 H 20 Blood Pressure 97/48 L 115/52 L 97/50 L Pulse Oximetry 99 95 08/29/18 08:45 08/29/18 09:00 08/29/18 09:15 Temperature Pulse Rate 74 82 76 Respiratory Rate 18 22 22 Blood Pressure 94/46 L 96/44 L 104/45 L Pulse Oximetry 99 98 97 08/29/18 09:30 08/29/18 09:45 Temperature Pulse Rate 76 80 Respiratory Rate 22 25 H Blood Pressure 105/45 L 107/43 L Pulse Oximetry 98 98 Intake & Output 08/28/18 08/29/18 08/29/18 18:59 06:59 18:59 Intake Total 2615 / 2615 5340 / 5340 100 / 100 Output Total 0 / 0 Balance 2615 / 2615 5340 / 5340 100 / 100 Weight 100 kg 91.4 kg Intake: IV 2615 / 2615 5100 / 5100 100 / 100 NS Inj 1,000 ML @ 100 mls/hr IV 1000 / 1000 .CONT .Q10H [facility] Rx#:[id number] Flexbumin 25% Inj 100 ML @ 60 100 / 100 mls/hr IV.SIG ONCE ONE Rx#: [id number] Zosyn 3.375 GM Premix 50 ML @ 100 / 100 100 mls/hr IV.SIG Q6H [facility] Rx#: [id number] Zosyn 4.5 GM Premix 4.5 gm In 100 / 100 100 ml @ 200 mls/hr IV.SIG ONCE ONE Rx#:[id number] NS Inj 1,000 ML @ Wide Open IV. 1999 / 1999 4000 / 4000 SIG BOLUS [facility] Rx#:[id number] Vancomycin Inj 1,500 MG In NS 515 / 515 Inj 500 ML @ 250 mls/hr IV.SIG ONCE ONE Rx#:[id number] Oral 240 / 240 Output: Stool Amount (Stoma) 0 / 0 Left Upper Abdomen 0 / 0 Other: # Incontinent Voids 3 # Urine Diapers 3 Weight On Admission 100 kg Narrative: GENERAL: Well-developed, well-nourished patient who is critically ill SKIN: Warm and dry. Tinea cruris with stage I sacral and stage II ulcers x2 in the left gluteal CARDIOVASCULAR: Regular rate and rhythm. RESPIRATORY: No accessory muscle use. Clear to auscultation. Breath sounds equal bilaterally. GASTROINTESTINAL: Abdomen soft, non-tender, nondistended. Colostomy in place. Slightly tender left lower quadrant. There is a fistula in the left inguinal area draining urine MUSCULOSKELETAL: Extremities without clubbing, cyanosis, or edema. No obvious deformities. Surgically missing right fifth and left second toes. Superficial ulcer left lateral ankle with surrounding erythema positive tenderness no active drainage. Right fourth toe with erythema NEUROLOGICAL: Awake and alert. No obvious cranial nerve deficits. Motor grossly within normal limits. Five out of 5 muscle strength in the arms and legs. Normal speech. PSYCHIATRIC: Appropriate mood and affect; insight and judgment normal. Results - Labs CBC & Chem 7: 08/29/18 03:45 08/29/18 03:45 Laboratory Results - last 24 hr 08/28/18 08/28/18 08/28/18 12:34 13:19 13:19 CBC w Diff Slide review pending WBC 27.7 H RBC 4.40 L Hgb 13.0 Hct 38.1 L MCV 86.5 MCH 29.5 MCHC 34.2 RDW 12.7 Plt Count 229 MPV 7.8 Neut % (Auto) 93.7 H Lymph % (Auto) 2.1 L [place] % (Auto) 2.6 Eos % (Auto) 0.0 Baso % (Auto) 1.6 Neut # (Auto) 26.0 H Lymph # (Auto) 0.6 L [place] # (Auto) 0.7 Eos # (Auto) 0.0 Baso # (Auto) 0.4 H WBC Differential . Diff Scan Auto diff confirmed Differential Comment . Sodium 124 L* Potassium 4.4 Chloride 90 L Carbon Dioxide 21.2 Anion Gap 13 BUN 22 H Creatinine 2.20 H Estimated GFR 30 L POC Glucose Random Glucose 541 H* Lactic Acid Calcium 7.9 L Prot Corrected Calcium Total Bilirubin AST ALT Alkaline Phosphatase Total Creatine Kinase 51 Total Protein Albumin Lipase 43 L Beta-Hydroxybutyric Acd 0.53 H Urine Color Urine Clarity Urine pH Ur Specific [place] Urine Protein Urine Glucose (UA) Urine Ketones Urine Occult Blood Urine Nitrate Urine Bilirubin Urine Urobilinogen Ur Leukocyte Esterase Urine RBC Urine WBC Urine WBC Clumps Urine Bacteria Urine Yeast Micro UA Comment Ur Microscopic Review Urine Culture Comments 08/28/18 08/28/18 08/28/18 14:00 15:56 17:21 CBC w Diff WBC RBC Hgb Hct MCV MCH MCHC RDW Plt Count MPV Neut % (Auto) Lymph % (Auto) [place] % (Auto) Eos % (Auto) Baso % (Auto) Neut # (Auto) Lymph # (Auto) [place] # (Auto) Eos # (Auto) Baso # (Auto) WBC Differential Diff Scan Differential Comment Sodium Potassium Chloride Carbon Dioxide Anion Gap BUN Creatinine Estimated GFR POC Glucose 416 H 340 H Random Glucose Lactic Acid 3.5 H Calcium Prot Corrected Calcium Total Bilirubin AST ALT Alkaline Phosphatase Total Creatine Kinase Total Protein Albumin Lipase Beta-Hydroxybutyric Acd Urine Color Urine Clarity Urine pH Ur Specific [place] Urine Protein Urine Glucose (UA) Urine Ketones Urine Occult Blood Urine Nitrate Urine Bilirubin Urine Urobilinogen Ur Leukocyte Esterase Urine RBC Urine WBC Urine WBC Clumps Urine Bacteria Urine Yeast Micro UA Comment Ur Microscopic Review Urine Culture Comments 08/28/18 08/28/18 08/28/18 17:30 17:45 18:59 CBC w Diff WBC RBC Hgb Hct MCV MCH MCHC RDW Plt Count MPV Neut % (Auto) Lymph % (Auto) [place] % (Auto) Eos % (Auto) Baso % (Auto) Neut # (Auto) Lymph # (Auto) [place] # (Auto) Eos # (Auto) Baso # (Auto) WBC Differential Diff Scan Differential Comment Sodium Potassium Chloride Carbon Dioxide Anion Gap BUN Creatinine Estimated GFR POC Glucose 291 H Random Glucose Lactic Acid 4.8 H* Calcium Prot Corrected Calcium Total Bilirubin AST ALT Alkaline Phosphatase Total Creatine Kinase Total Protein Albumin Lipase Beta-Hydroxybutyric Acd Urine Color Yellow Urine Clarity Turbid H Urine pH 5.0 Ur Specific [place] 1.015 Urine Protein 30 H Urine Glucose (UA) 1000 or greater Urine Ketones Negative Urine Occult Blood Large H Urine Nitrate Negative Urine Bilirubin Negative Urine Urobilinogen 0.2 Ur Leukocyte Esterase Moderate H Urine RBC 4-15 H Urine WBC Innumerable H Urine WBC Clumps Moderate H Urine Bacteria Many H Urine Yeast Many H Micro UA Comment Culture indicated Ur Microscopic Review Microscopic reviewed Urine Culture Comments Culture indicated 08/28/18 08/29/18 08/29/18 22:32 02:24 03:45 CBC w Diff Auto diff final WBC 20.0 H RBC 3.54 L Hgb 10.6 L D Hct 31.1 L MCV 88.0 MCH 29.8 MCHC 33.9 RDW 12.1 Plt Count 200 MPV 7.4 Neut % (Auto) 90.7 H Lymph % (Auto) 5.9 L [place] % (Auto) 3.0 Eos % (Auto) 0.4 Baso % (Auto) 0.0 Neut # (Auto) 18.1 H Lymph # (Auto) 1.2 [place] # (Auto) 0.6 Eos # (Auto) 0.1 Baso # (Auto) 0.0 WBC Differential . Diff Scan Differential Comment . Sodium Potassium Chloride Carbon Dioxide Anion Gap BUN Creatinine Estimated GFR POC Glucose 133 H 157 H Random Glucose Lactic Acid Calcium Prot Corrected Calcium Total Bilirubin AST ALT Alkaline Phosphatase Total Creatine Kinase Total Protein Albumin Lipase Beta-Hydroxybutyric Acd Urine Color Urine Clarity Urine pH Ur Specific [place] Urine Protein Urine Glucose (UA) Urine Ketones Urine Occult Blood Urine Nitrate Urine Bilirubin Urine Urobilinogen Ur Leukocyte Esterase Urine RBC Urine WBC Urine WBC Clumps Urine Bacteria Urine Yeast Micro UA Comment Ur Microscopic Review Urine Culture Comments 08/29/18 08/29/18 08/29/18 03:45 03:45 08:16 CBC w Diff WBC RBC Hgb Hct MCV MCH MCHC RDW Plt Count MPV Neut % (Auto) Lymph % (Auto) [place] % (Auto) Eos % (Auto) Baso % (Auto) Neut # (Auto) Lymph # (Auto) [place] # (Auto) Eos # (Auto) Baso # (Auto) WBC Differential Diff Scan Differential Comment Sodium 135 L D Potassium 3.9 Chloride 105 D Carbon Dioxide 20.2 L Anion Gap 10 BUN 20 H Creatinine 1.20 Estimated GFR 60 L POC Glucose 150 H Random Glucose 150 H D Lactic Acid 1.0 Calcium 7.2 L* Prot Corrected Calcium 8.0 L Total Bilirubin 0.5 AST 15 ALT 14 Alkaline Phosphatase 67 Total Creatine Kinase Total Protein 5.6 L Albumin 1.7 L Lipase Beta-Hydroxybutyric Acd Urine Color Urine Clarity Urine pH Ur Specific [place] Urine Protein Urine Glucose (UA) Urine Ketones Urine Occult Blood Urine Nitrate Urine Bilirubin Urine Urobilinogen Ur Leukocyte Esterase Urine RBC Urine WBC Urine WBC Clumps Urine Bacteria Urine Yeast Micro UA Comment Ur Microscopic Review Urine Culture Comments - Imaging - Procedures none Assessment and Plan - Plan This is a 68-year-old male with a history of diabetes mellitus, A. fib, hypertension, diabetic foot infection with osteomyelitis status post resection and megacolon status post colostomy. Today, patient fell from his chair and was unable to get up because of generalized weakness. He was found to have uncontrolled diabetes, acute kidney injury and diabetic foot infection involving left ankle and possibly right fourth toe Septic shock with diabetic foot infection and UTI. Patient with persistent hypotension despite 7 L fluid bolus started on Levophed drip. Will give additional IV albumin and wean Levophed. Transfer patient to ICU. Continue IV Zosyn and vancomycin. Wound care and consult podiatry follow-up cultures Acute kidney injury secondary to sepsis and dehydration. CK within normal limits. Improved continue IV hydration Uncontrolled diabetes secondary to noncompliance and sepsis. Improved with IV hydration continue monitor fingersticks with sliding scale coverage. Diabetic education. Will restart metformin Pseudohyponatremia. Asymptomatic. 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 Hx Tony's gangrene of the scrotum back in 2017. He underwent surgical debridement and later staged wound closure with local advancement flap. Consulted . May need abdominal pelvic CT Tinea cruis. Nystatin cream Sacral and gluteal decub and colostomy. Wound care DVT prophylaxis with SCD and subcu heparin Discharge Planning: Patient is critically ill will be transferred to ICU continue on vasopressor Levophed drip. Critical care time spent 35 minutes
--- NOTE | 2018-08-29 10:32 | XR ---
EXAM DATE: 08/29/2018 9:38 AM EDT AGE/SEX: 68 years / Male INDICATIONS: Inflammation, open sores left foot CLINICAL DATA: This is the patient's subsequent encounter. Patient reports that signs and symptoms h ave been present for 2 days and indicates a pain score of 0/10. MEDICAL/SURGICAL HISTORY: . Osteoarthritis. Gastroesophageal reflux disease. Arthritis. Megacol on. Diabetes. Colostomy. COMPARISON: . 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 There is been resection of the second digit including the proxim al, middle, and distal phalanx. There is chronic appearing periosteal reaction at the bases of the th ird and fourth metatarsals. There are some cystic and degenerative change at the Lisfranc joint. Ther e is a pes planus deformity of the foot. There is prominent calcaneal spurring at the plantar aponeur osis attachment site. Vascular calcifications are seen. An area of acute bony destruction is not shaggy rly identified. CONCLUSION: Chronic appearing change as described above related to postoperative change and degenerative change. The degenerative change may be secondary to a Charcot foot. Electronically signed by: Frank Quinones MD 08/29/2018 10:31 AM EDT
--- NOTE | 2018-08-29 10:35 | XR ---
EXAM DATE: 08/29/2018 12:00 AM EDT AGE/SEX: 68 years / Male INDICATIONS: Inflammation, open sores on left ankle CLINICAL DATA: This is the patient's subsequent encounter. Patient reports that signs and symptoms h ave been present for 2 days and indicates a pain score of 0/10. MEDICAL/SURGICAL HISTORY: . Osteoarthritis. Gastroesophageal reflux disease. Arthritis. Megacol on. Diabetes. Colostomy. COMPARISON: . FINDINGS: No acute fractures seen. The ankle is aligned. There is chronic bony density seen inferior to the med ial malleolus likely related to prior fracture or very prominent hypertrophic change. Soft tissue swe lling is not seen. CONCLUSION: Chronic change as described above. Soft tissue swelling or bony destruction is not seen at the ankle. Electronically signed by: Frank Quinones MD 08/29/2018 10:33 AM EDT
[2018-08-29] MEDS: Senna/Docusate Sodium 8.6/50 MG Tablet PO SCH ×2 (10:36→21:44)
--- NOTE | 2018-08-29 10:37 | XR ---
EXAM DATE: 08/29/2018 9:40 AM EDT AGE/SEX: 68 years / Male INDICATIONS: Inflammation, open sores right foot CLINICAL DATA: This is the patient's subsequent encounter. Patient reports that signs and symptoms h ave been present for 2 days and indicates a pain score of 0/10. MEDICAL/SURGICAL HISTORY: . Osteoarthritis. Gastroesophageal reflux disease. Arthritis. Megacol on. Diabetes. . Abdominal aortic aneurysm repair. Colostomy COMPARISON: . 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 This chronic periosteal reaction seen at the first metatarsal. The patient is status post amputation of the fifth digit at the level of the distal fifth metacarpal tarsal. There is ampu tation of the second digit at the level the middle phalanx. There appears to be chronic remodeling at the second and third metatarsal heads. There is spurring at the plantar aponeurosis attachment sites at the posterior calcaneus and some hypertrophic change within the proximal aspect of the plantar ap oneurosis. Vascular calcifications are seen. CONCLUSION: Chronic change as described above. An area of acute bony destruction or acute periosteal reaction is not clearly seen on this plain film examination. Electronically signed by: Frank Quinones MD 08/29/2018 10:36 AM EDT
[2018-08-29] MEDS: Albumin Human 25% Inj 50 ML IV.SIG SCH ×2 (12:15→22:19)
[2018-08-29 13:16] LABS: Hemoglobin A1c 12.7 % (4.3-6.0)
--- NOTE | 2018-08-29 13:25 | ECG ---
Date Performed: 08/28/2018 Time Performed: 12:57:41 PTAGE: 68 years EKG: SINUS TACHYCARDIA WITH FREQUENT SUPRAVENTRICULAR PREMATURE COMPLEXES LOW QRS VOLTAGE IN EXT REMITY LEADS ABNORMAL RHYTHM ECG PREVIOUS TRACING : 03/08/2018 18.47 DOCTOR: Santiago Lopez Interpretating Date/Time 08/29/2018 13:15:44
[2018-08-29] MEDS ORDERED: Vancomycin Inj 1,700 MG in Sodium Chlor 0.9% Inj 500 ML IV.SIG SCH (14:00)
--- NOTE | 2018-08-29 16:16 | P.CON ---
History of Present Illness Service: Foot and ankle surgery/podiatry Consult date: 08/29/18 Primary Care Provider: No Primary Care Physician Family Provider: No Primary Care Physician Chief Complaint: Generalized weakness History of Present Illness: Podiatry consulted for this 68-year-old male with history of diabetes, A. fib, hypertension, multiple diabetic foot infections, and Alondra: Status post colostomy for diabetic foot infection evaluation. Patient was admitted after patient fell from his chair was unable to get up because of generalized weakness he reports nausea and vomiting episodes x2. He generally regularly seen in office and reports no pain to bilateral lower extremity. Patient states he has had regular bowel movements. He does also states that when he urinates it is not coming out of his penis but from a different area. Review of Systems All other systems reviewed negative except as stated in HPI Constitutional: Denies chills, Denies fever(s), Denies night sweats Cardiovascular: Denies chest pain Respiratory: Denies cough PMFSH - History History 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 - Tobacco History Second Hand Smoke Exposure: No Tobacco Use In Past 30 Days: No Smoking Status: Never smoker - Alcohol History How Often Do You Have a Drink Containing Alcohol: Never - Substance Use History Substance History: No History of Abuse - Travel History Recent Travel in the [place] Within the Last 8 Weeks: No Recent Travel Out of the Country Within the Last 8 Weeks: No - Immunization History Tetanus Immunization: <5 Years Hx Influenza Vaccine This Season: No Medications and Allergies Active Medications: Active Medications Acetaminophen (Tylenol) 650 mg PO Q4H PRN PRN Reason: Temp > 100.4 Last Admin: 08/29/18 04:19 Dose: 650 mg Bisacodyl (Dulcolax Supp) 10 mg RECTAL DAILY PRN PRN Reason: SEVERE CONSITIPATION Dextrose (D50w Vial) 50 ml IV.PUSH UNSCH PRN PRN Reason: PER HYPOGLYCEMIA PROTOCOL Glucagon (Glucagon Inj) 1 mg OTHER PRN PRN PRN Reason: for Hypoglycemia Protocol Heparin Sodium (Porcine) (Heparin Inj) 5,000 units SQ Q12H SHREYAS Last Admin: 08/29/18 03:55 Dose: 5,000 units Sodium Chloride (Ns Inj) 1,000 mls @ 0 mls/hr IV.SIG BOLUS SHREYAS Last Infusion: 08/28/18 15:46 Dose: Infused Sodium Chloride (Ns Inj) 1,000 mls @ 0 mls/hr IV.SIG BOLUS SHREYAS Sodium Chloride (Ns Inj) 1,000 mls @ 0 mls/hr IV.SIG BOLUS SHREYAS Last Infusion: 08/28/18 18:01 Dose: Infused Piperacillin/Tazobactam/Dextrose (Zosyn 3.375 Gm Premix) 50 mls @ 100 mls/hr IV.SIG Q6H SHREYAS Last Infusion: 08/29/18 13:19 Dose: Infused Sodium Chloride (Ns Inj) 1,000 mls @ 100 mls/hr IV.CONT .Q10H SHREYAS Last Admin: 08/29/18 13:17 Dose: Not Given Vancomycin HCl 1,700 mg/ (Sodium Chloride) 517 mls @ 344.667 mls/hr IV.SIG Q24H SHREYAS Last Admin: 08/29/18 13:17 Dose: 344.67 mls/hr Sodium Chloride (Ns Inj) 1,000 mls @ 0 mls/hr IV.SIG BOLUS SHREYAS Last Infusion: 08/28/18 19:37 Dose: Infused Norepinephrine Bitartrate (Levophed-Dextrose 4 Mg/250 Ml Drip) 4 mg in 250 mls @ 7.5 mls/hr IV.SIG TITRATE PRN; Protocol PRN Reason: Per Protocol Last Titration: 08/29/18 12:15 Dose: 0 mcg/min, 0 mls/hr Albumin Human (Flexbumin 25% Inj) 50 mls @ 60 mls/hr IV.SIG Q12H SHREYAS Last Infusion: 08/29/18 13:19 Dose: Infused Insulin Aspart (Novolog Insulin Correctional Sugar Inj) 0 unit SQ ACHS AND 3AM SHREYAS; Protocol Last Admin: 08/29/18 13:14 Dose: 15 unit Lactulose (Lactulose Liq) 30 ml PO DAILY PRN PRN Reason: SEVERE CONSITIPATION Miscellaneous Information ([facility] Ordered Lab Info) 0 each OTHER ONCE ONE Stop: 08/31/18 13:46 Nystatin (Mycostatin Cream) 1 applicatio TOPICAL QID [facility] Last Admin: 08/29/18 13:14 Dose: 1 applicatio Ondansetron HCl (Zofran Inj) 4 mg IV.PUSH Q6H PRN PRN Reason: NAUSEA OR VOMITING Pharmacy Profile Note (Vancomycin Consult Pharmacy) 1 each OTHER UNSCH PRN PRN Reason: Pharmacy to dose Senna/Docusate Sodium (Diane-Colace) 1 tab PO BID SHREYAS Last Admin: 08/29/18 10:36 Dose: Not Given Sennosides (Senokot) 17.2 mg PO Q12H PRN PRN Reason: Moderate Constipation Terbutaline Sulfate (Brethine Inj) 1 mg SQ UNSCH PRN PRN Reason: For Extravasation Allergies Allergy/AdvReac Type Severity Reaction Status Date / Time Influenza Virus Vaccines Allergy Severe Anaphylaxis Verified 08/28/18 12:12 *MDRO Multi-Drug Resistant AdvReac Unknown Flushing Uncoded 08/28/18 12:12 Organism Home Medications Medication Instructions Recorded Confirmed Type No Known Home Medications 08/28/18 08/28/18 History Physical Exam Vital signs: Vital Signs 08/28/18 17:40 08/28/18 17:55 08/28/18 19:00 Temperature Pulse Rate 98 H 98 H Respiratory Rate 20 16 Blood Pressure 110/52 L 101/51 L Pulse Oximetry 99 98 97 08/28/18 19:09 08/28/18 20:00 08/28/18 20:31 Temperature Pulse Rate 94 H 95 H 84 Respiratory Rate 18 18 Blood Pressure 95/50 L 104/58 L Pulse Oximetry 98 98 08/28/18 21:11 08/28/18 21:24 08/28/18 23:00 Temperature 99.5 F Pulse Rate 81 94 H Respiratory Rate 18 21 Blood Pressure 104/62 110/54 L Pulse Oximetry 98 96 08/29/18 00:14 08/29/18 00:17 08/29/18 00:18 Temperature 98.6 F Pulse Rate 88 88 88 Respiratory Rate 27 H 26 H 26 H Blood Pressure 82/33 L 88/45 L 91/44 L Pulse Oximetry 98 98 97 08/29/18 04:17 08/29/18 04:47 08/29/18 05:00 Temperature Pulse Rate 88 84 84 Respiratory Rate 20 23 27 H Blood Pressure 99/46 L 95/43 L Pulse Oximetry 97 96 97 08/29/18 05:17 08/29/18 05:22 08/29/18 07:17 Temperature Pulse Rate 80 84 68 Respiratory Rate 27 H 23 21 Blood Pressure 87/43 L 87/39 L 89/39 L Pulse Oximetry 97 96 98 08/29/18 07:47 08/29/18 08:00 08/29/18 08:05 Temperature 98.7 F Pulse Rate 70 70 72 Respiratory Rate 23 21 18 Blood Pressure 86/41 L 97/48 L Pulse Oximetry 98 99 99 08/29/18 08:15 08/29/18 08:30 08/29/18 08:45 Temperature Pulse Rate 78 78 74 Respiratory Rate 26 H 20 18 Blood Pressure 115/52 L 97/50 L 94/46 L Pulse Oximetry 95 99 08/29/18 09:00 08/29/18 09:15 08/29/18 09:30 Temperature Pulse Rate 82 76 76 Respiratory Rate 22 22 22 Blood Pressure 96/44 L 104/45 L 105/45 L Pulse Oximetry 98 97 98 08/29/18 09:45 08/29/18 10:00 08/29/18 10:15 Temperature Pulse Rate 80 82 82 Respiratory Rate 25 H 21 21 Blood Pressure 107/43 L 101/50 L 113/50 L Pulse Oximetry 98 99 97 08/29/18 10:30 08/29/18 10:45 08/29/18 11:00 Temperature Pulse Rate 78 74 74 Respiratory Rate 18 18 24 Blood Pressure 106/53 L 112/54 L 115/58 L Pulse Oximetry 95 96 98 08/29/18 11:15 08/29/18 11:38 08/29/18 11:45 Temperature Pulse Rate 76 80 Respiratory Rate 20 21 Blood Pressure 113/54 L 115/50 L 118/58 L Pulse Oximetry 99 99 99 08/29/18 12:00 08/29/18 12:15 08/29/18 12:30 Temperature 97.9 F Pulse Rate 76 80 86 Respiratory Rate 23 21 23 Blood Pressure 98/52 L 86/49 L 104/63 Pulse Oximetry 100 82 L 100 08/29/18 13:00 08/29/18 13:30 08/29/18 14:00 Temperature Pulse Rate 86 78 72 Respiratory Rate 22 19 21 Blood Pressure 104/39 L 119/56 L 97/44 L Pulse Oximetry 96 97 08/29/18 14:30 Temperature Pulse Rate 82 Respiratory Rate 23 Blood Pressure 114/64 Pulse Oximetry 94 L Intake & Output 08/28/18 08/29/18 08/29/18 18:59 06:59 18:59 Intake Total 2615 / 2615 5340 / 5340 226.5 / 226.5 Output Total 0 / 0 Balance 2615 / 2615 5340 / 5340 226.5 / 226.5 Weight 100 kg 91.4 kg Intake: IV 2615 / 2615 5100 / 5100 226.5 / 226.5 NS Inj 1,000 ML @ 100 mls/hr IV 1000 / 1000 .CONT .Q10H SHREYAS Rx#:[id number] Flexbumin 25% Inj 50 ML @ 60 50 / 50 mls/hr IV.SIG Q12H SHREYAS Rx#: [id number] Flexbumin 25% Inj 100 ML @ 60 100 / 100 mls/hr IV.SIG ONCE ONE Rx#: [id number] Levophed-Dextrose 4 mg/250 ml 26.5 / 26.5 Drip 4 mg In 250 ml @ 2 MCG/MIN 7.5 mls/hr IV.SIG TITRATE PRN Rx#:[id number] Zosyn 3.375 GM Premix 50 ML @ 100 / 100 50 / 50 100 mls/hr IV.SIG Q6H [facility] Rx#: [id number] Zosyn 4.5 GM Premix 4.5 gm In 100 / 100 100 ml @ 200 mls/hr IV.SIG ONCE ONE Rx#:[id number] NS Inj 1,000 ML @ Wide Open IV. 1999 / 1999 4000 / 4000 SIG BOLUS [facility] Rx#:[id number] Vancomycin Inj 1,500 MG In NS 515 / 515 Inj 500 ML @ 250 mls/hr IV.SIG ONCE ONE Rx#:[id number] Oral 240 / 240 Output: Stool Amount (Stoma) 0 / 0 Left Upper Abdomen 0 / 0 Other: # Incontinent Voids 3 # Urine Diapers 3 Weight On Admission 100 kg Narrative: Lower extremity physical exam: Vascular: Dorsalis pedis palpable, posterior tibial 2/4. Capillary refill time within normal limits to digits X5 bilateral foot. Edema not present to bilateral foot and ankle. Neuro: Gross sensation intact to bilateral lower extremity. Pinpoint sensation decreased. No hyperalgesia noted to bilateral lower extremity Dermatology: Left lateral ankle ulceration with fibrogranular base and mild hyperkeratotic borders. Mild surrounding erythema. No edema. Minimal clinical signs of infection. Musculoskeletal: Tender to palpation to left lateral ankle. Assessment and Plan - Plan 68-year-old male with left lateral ankle ulceration Patient examined and evaluated with all questions answered Santyl and moist to dry sterile dressing to be applied to left lateral ankle daily Do not feel that the source of sepsis is bilateral foot To be evaluated by urology Please reconsult if needed Patient to follow-up in office within 1 week of discharge
--- NOTE | 2018-08-29 18:13 | MB ---
cc: KhanhLuisNorbert W DO DATE: 08/29/2018 HISTORY OF PRESENT ILLNESS: Mr. Donahue is a 68-year-old male who presents after a fall. He has a history of Tony gangrene and underwent extensive resection about a year and a half ago with grafting and required plastic surgery intervention to help close his wounds. He was then lost to followup and then presents now with urine leaking out of his left groin region. The patient has been unaware of how long this has actually been going on. He also states he gets occasional constipation as his ostomy has not been draining over the last couple of days. He denies any fever, but he is a diabetic and he is usually poorly controlled based on his history. He has had osteomyelitis in the past and underwent colostomy for megacolon. MEDICAL HISTORY: Includes diabetes, atrial fibrillation, hypertension, osteomyelitis with diabetic foot infections, megacolon. PAST SURGICAL HISTORY: Noted for tonsillectomy, right foot resection for a Tony gangrene with grafting in the past. SOCIAL HISTORY: He is homeless. He denies smoking, drinking or using drugs. MEDICATIONS: Please refer to the chart. FAMILY HISTORY: No family history of prostate cancer. REVIEW OF SYSTEMS: Notes urine draining from his left groin region recently, notes constipation. Denies chest pain, shortness of breath. Denies headaches, gait disturbances, bleeding disorder. Remaining review of systems were reviewed and were negative. PHYSICAL EXAMINATION: VITAL SIGNS: Temperature is 97.9, heart rate 82, respiratory rate 23, 114/64, 94% on room air. GENERAL: He is a mildly obese, disheveled appearing 68-year-old male. He is not in any acute distress. HEENT: Normocephalic, atraumatic. Pupils equal, round, and reactive to light. Extraocular movements intact. NECK: Supple. HEART: Regular rate and rhythm. LUNGS: Clear bilaterally. ABDOMEN: Soft. Colostomy is not draining. He is currently constipated, after digital inspection of the ostomy site. He also has some penile cellulitis with urine draining out the left groin region. 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 EXTREMITIES: Show 1+ edema. NEUROLOGIC: Cranial nerves 2-12 are intact. LABORATORY DATA: White count 20.0, hemoglobin 10.6, hematocrit 31.1, platelet count of 200. Sodium 135, potassium 3.9, chloride 105, CO2 is 20.2, BUN of 20, creatinine 1.2, glucose of 60, urine nitrite negative, moderate white cell clumps, many bacteria and many yeast. ASSESSMENT AND PLAN: A 68-year-old male with history of Tony gangrene with diabetes, which has been poorly controlled in the past, now presents with urine leaking at the left groin region. We will recommend a CT scan with delayed images to evaluate the bladder and the ureters. We will treat constipation with gentle saline irrigation through the ostomy with digitalization. Would recommend general surgery evaluation. Continue Zosyn. I will make further comments after the CT scan is performed. Thank you for the consult and allowing me to participate in the care of this patient. Norbert Cassidy DO SWT/ct , 04:21 PM , 04:30 PM
--- NOTE | 2018-08-29 18:19 | CT ---
EXAM DATE: 08/29/2018 5:24 PM EDT AGE/SEX: 68 years / Male INDICATIONS: Left side pelvic fistula. Swelling CLINICAL DATA: This is the patient's initial encounter. Patient reports that signs and symptoms have been present for 1 day and indicates a pain score of 0/10. MEDICAL/SURGICAL HISTORY: Diabetes. Atrial Fib Colon resection. Colostomy. ORAL CONTRAST: No oral contrast ingested. RADIATION DOSE: 20.61 CTDI (mGy) COMPARISON: [facility], CT ABDOMEN & PELVIS W CONTRAST, 02/19/2017. . TECHNIQUE: Multiple contiguous axial images were obtained through the abdomen and pelvis following b olus infusion of 99ML ml Omnipaque 350 (iohexol) nonionic water-soluble contrast as a single exam d ose. No oral contrast ingested. Using automated exposure control and adjustment of the mA and/or kV according to patient size, radiation dose was kept as low as reasonably achievable to obtain optimal diagnostic quality images. DICOM format image data is available electronically for review and compar maritza. FINDINGS: Lower Lungs: There are minimal bilateral pleural effusions. Liver: The liver has a homogeneous density without space-occupying lesion. There is no dilation of th e biliary tree. Small amount of ascitic fluid along the liver margin. Spleen: Homogeneous density without enlargement. Pancreas: Unremarkable without mass or calcification. Kidneys: Normal in size and shape. No evidence of mass or hydronephrosis. Adrenal Glands: Unremarkable. Aorta: The aorta and proximal iliac vessels are grossly unremarkable without aneurysmal dilation. Bowel/Mesentery: A colostomy is again noted in the left lower quadrant. There are postoperative ferraro ges involving the rectal region with surgical clips and aneta. There are multiple loops of nondilat ed air-containing small bowel several small air-fluid levels. There is no free air.. The cecum and si gmoid colon have a normal configuration. Abdominal Wall: Intact. A colostomy is again noted in the left lower quadrant. Retroperitoneum: No evidence of adenopathy in the retrocrural, para-aortic, or deep pelvic regions. Bladder: There is mild bladder wall thickening and no focal mass. Reproductive Organs: There is soft tissue swelling and thickening along the base of the penis with a bnormal gas collection noted along the base of the penis and anterior upper scrotal region and perine um. Multiple gas bubbles and collections in the left inguinal region extend out laterally into the hart bcutaneous fat. There is mild surrounding inflammatory change. There is no drainable fluid collection . Inguinal: The inguinal region is unremarkable without evidence of adenopathy. Bony Structures: Unremarkable. CONCLUSION: 1. Abnormal gas collection along the left inguinal region which extends out laterally into the subcu taneous fat with surrounding inflammatory change. There is an abnormal gas collection also noted mckenna g the base of the scrotum and perineum likely is continuous with this.. There is soft tissue swelling and thickening around the base of the penis. No drainable fluid collection. 2. Bladder wall thickening. 3. Small bilateral pleural effusions. 4. Mildly nonspecific bowel gas pattern most characteristic of an ileus. Electronically signed by: Jerome Bey MD 08/29/2018 6:18 PM EDT
[2018-08-30] MEDS: Insulin NovoLOG Aspart Correctional Sugar Inj SQ SCH ×5 (03:12→21:10)
[2018-08-30] MEDS: Piperacil/Tazo 3.375 GM Premix 50 ML IV.SIG SCH ×5 (03:53→21:11)
[2018-08-30] MEDS: Heparin - SQ 10,000 UNITS/ML Vial SQ SCH ×2 (03:54→15:13)
[2018-08-30 07:08] LABS: Baso % (Auto) 0.2 % (0.0-2.0); Eos # (Auto) 0.1 th/mm3 (0.0-0.4); Eos % (Auto) 1.2 % (0.0-4.0); Hemoglobin 10.3 gm/dL (13.0-17.0); Lymph % (Auto) 7.9 % (9.0-44.0); Mean Corpuscular HGB Conc 35.3 % (32.0-36.0); Mean Corpuscular Hemoglobin 30.5 pg (27.0-34.0); Mean Corpuscular Volume 86.5 fL (80.0-100.0); Mean Platelet Volume 7.5 fL (7.0-11.0); Mono # (Auto) 0.5 th/mm3 (0.0-0.9); Mono % (Auto) 4.1 % (0.0-8.0); Neut # (Auto) 10.8 th/mm3 (1.8-7.7); Neut % (Auto) 86.6 % (16.0-70.0); Platelet Count 180 th/mm3 (150-450); Red Blood Count 3.36 mil/mm3 (4.50-5.90); Red Cell Distribution Width 12.5 % (11.6-17.2); White Blood Count 12.4 th/mm3 (4.0-11.0)
[2018-08-30 07:15] LABS: Potassium 3.5 meq/L (3.5-5.1)
[2018-08-30 07:35] LABS: Albumin 1.9 g/dL (3.4-5.0); Calcium 7.4 mg/dL (8.5-10.1); Magnesium 1.5 mg/dL (1.5-2.5)
[2018-08-30 08:05] LABS: Calcium-Albumin Corrected 8.3 mg/dL (8.5-10.1); Total Protein 5.5 g/dL (6.4-8.2)
[2018-08-30] MEDS: Senna/Docusate Sodium 8.6/50 MG Tablet PO SCH ×2 (08:57→20:46)
[2018-08-30] MEDS: Magnesium Oxide 400 MG Tablet PO SCH ×2 (08:57→20:46)
[2018-08-30] MEDS: Collagenase Oint 30 GM Tube TOPICAL SCH (08:57)
[2018-08-30] MEDS: Sod Chloride 0.9% Inj 1,000 ML IV.CONT SCH ×2 (09:00→19:02)
[2018-08-30] MEDS: Albumin Human 25% Inj 50 ML IV.SIG SCH ×2 (10:15→23:31)
[2018-08-30] MEDS: Vancomycin Inj 1,700 MG in Sodium Chlor 0.9% Inj 500 ML IV.SIG SCH ×2 (10:15→21:10)
--- NOTE | 2018-08-30 10:51 | P.PNURO ---
Subjective Patient symptoms today: Pt seen and examined. CT scan reviewed. 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 Lainez placed. Will monitor drainage from right groin to see if lainez placement helps. Urine sent for culture. Air noted in SQ tissues in lower abdomen. B/C positive. Objective Vital Signs: Vital Signs 08/29/18 11:00 08/29/18 11:15 08/29/18 11:38 Temperature Pulse Rate 74 76 Respiratory Rate 24 20 Blood Pressure 115/58 L 113/54 L 115/50 L Pulse Oximetry 98 99 99 08/29/18 11:45 08/29/18 12:00 08/29/18 12:15 Temperature 97.9 F Pulse Rate 80 76 80 Respiratory Rate 21 23 21 Blood Pressure 118/58 L 98/52 L 86/49 L Pulse Oximetry 99 100 82 L 08/29/18 12:30 08/29/18 13:00 08/29/18 13:30 Temperature Pulse Rate 86 86 78 Respiratory Rate 23 22 19 Blood Pressure 104/63 104/39 L 119/56 L Pulse Oximetry 100 96 08/29/18 14:00 08/29/18 14:30 08/29/18 15:00 Temperature Pulse Rate 72 82 74 Respiratory Rate 21 23 21 Blood Pressure 97/44 L 114/64 106/50 L Pulse Oximetry 97 94 L 99 08/29/18 15:30 08/29/18 16:00 08/29/18 16:30 Temperature 99 F Pulse Rate 72 78 76 Respiratory Rate 21 23 19 Blood Pressure 113/56 L 93/45 L 112/53 L Pulse Oximetry 99 98 08/29/18 16:53 08/29/18 19:15 08/29/18 20:00 Temperature 99 F Pulse Rate 74 88 Respiratory Rate 15 20 Blood Pressure 100/51 L 115/53 L Pulse Oximetry 97 97 94 L 08/30/18 00:00 08/30/18 04:00 08/30/18 07:00 Temperature 99 F 98.8 F Pulse Rate 88 80 Respiratory Rate 15 13 Blood Pressure 94/47 L 112/52 L Pulse Oximetry 97 97 98 Intake & Output 08/29/18 08/30/18 08/30/18 18:59 06:59 18:59 Intake Total 1143.5 / 1143.5 490 / 490 1050 / 1050 Output Total 50 / 50 Balance 1143.5 / 1143.5 440 / 440 1050 / 1050 Weight 95.6 kg Intake: IV 743.5 / 743.5 250 / 250 1050 / 1050 NS Inj 1,000 ML @ 100 mls/hr IV 100 / 100 1000 / 1000 .CONT .Q10H [facility] Rx#:[id number] Flexbumin 25% Inj 50 ML @ 60 50 / 50 50 / 50 mls/hr IV.SIG Q12H [facility] Rx#: [id number] Flexbumin 25% Inj 100 ML @ 60 100 / 100 mls/hr IV.SIG ONCE ONE Rx#: [id number] Levophed-Dextrose 4 mg/250 ml 26.5 / 26.5 Drip 4 mg In 250 ml @ 2 MCG/MIN 7.5 mls/hr IV.SIG TITRATE PRN Rx#:[id number] Zosyn 3.375 GM Premix 50 ML @ 50 / 50 100 / 100 50 / 50 100 mls/hr IV.SIG Q6H [facility] Rx#: [id number] Vancomycin Inj 1,700 MG In NS 517 / 517 Inj 500 ML @ 344.667 mls/hr IV. SIG Q24H [facility] Rx#:[id number] Oral 400 / 400 240 / 240 Output: Stool Amount (Stoma) 50 / 50 Left Upper Abdomen 50 / 50 Other: # Voids 5 3 # Incontinent Voids 3 Date of Last Bowel Movement 08/29/18 Result Diagrams: 08/30/18 06:41 08/30/18 06:41 Imaging: Impressions Abdomen/Pelvis CT 08/29/18 00:00 CONCLUSION: 1. Abnormal gas collection along the left inguinal region which extends out laterally into the subcutaneous fat with surrounding inflammatory change. There is an abnormal gas collection also noted along the base of the scrotum and perineum likely is continuous with this.. There is soft tissue swelling and thickening around the base of the penis. No drainable fluid collection. 2. Bladder wall thickening. 3. Small bilateral pleural effusions. 4. Mildly nonspecific bowel gas pattern most characteristic of an ileus. Medications and IVs: Active Medications Generic Name Dose Route Start Last Admin Trade Name Freq PRN Reason Stop Dose Admin Acetaminophen 650 mg 08/28/18 15:32 08/29/18 04:19 Tylenol PO 650 mg Q4H PRN Administration Temp > 100.4 Bisacodyl 10 mg 08/28/18 15:32 Dulcolax Supp RECTAL DAILY PRN SEVERE CONSITIPATION Collagenase 1 applicatio 08/30/18 09:00 08/30/18 08:57 Santyl Oint TOPICAL 1 applicatio DAILY SHREYAS Administration Dextrose 50 ml 08/28/18 15:28 D50w Vial IV.PUSH UNSCH PRN PER HYPOGLYCEMIA PROTOCOL Glucagon 1 mg 08/28/18 15:28 Glucagon Inj OTHER PRN PRN for Hypoglycemia Protocol Heparin Sodium (Porcine) 5,000 units 08/28/18 16:00 08/30/18 03:54 Heparin Inj SQ 5,000 units Q12H [facility]RE[facility] Administration Piperacillin/Tazobactam/Dextrose 50 mls @ 100 mls/hr 08/28/18 22:00 08/30/18 10:14 Zosyn 3.375 Gm Premix IV.SIG Not Given Q6H [facility]RE[facility]AS Sodium Chloride 1,000 mls @ 100 mls/hr 08/28/18 15:45 08/30/18 09:00 Ns Inj IV.CONT 100 mls/hr .Q10H [facility] Administration Norepinephrine Bitartrate 4 mg in 250 mls @ 7.5 mls/hr 08/29/18 06:19 12:15 Levophed-Dextrose 4 Mg/250 Ml Drip IV.SIG 0 mcg/min TITRATE PRN 0 mls/hr Per Protocol Titration Protocol 2 MCG/MIN Albumin Human 50 mls @ 60 mls/hr 08/29/18 11:00 08/30/18 10:15 Flexbumin 25% Inj IV.SIG 60 mls/hr Q12H [facility] Administration Vancomycin HCl 1,700 mg/ 517 mls @ 344.667 mls/hr 08/30/18 10:00 08/30/18 10: 15 Sodium Chloride IV.SIG 344.67 mls/hr Q12H [facility] Administration Insulin Aspart 0 unit 08/28/18 17:00 08/30/18 08:14 Novolog Insulin Correctional Sugar Inj SQ Not Given ACHS AND 3AM SHREYAS Protocol Lactulose 30 ml 08/28/18 15:32 Lactulose Liq PO DAILY PRN SEVERE CONSITIPATION Magnesium Oxide 400 mg 08/30/18 09:00 08/30/18 08:57 Mag-Ox PO 08/31/18 08:59 400 mg BID SHREYAS Administration Miscellaneous Information 0 each 08/31/18 09:45 Mis Pharmacy Ordered Lab Info OTHER 08/31/18 09:46 ONCE ONE Nystatin 1 applicatio 08/28/18 18:00 08/30/18 08:57 Mycostatin Cream TOPICAL 1 applicatio QID [facility]RE[facility]AS Administration Ondansetron HCl 4 mg 08/28/18 15:32 Zofran Inj IV.PUSH Q6H PRN NAUSEA OR VOMITING Pharmacy Profile Note 1 each 08/28/18 15:28 Vancomycin Consult Pharmacy OTHER UNSCH PRN Pharmacy to dose Senna/Docusate Sodium 1 tab 08/28/18 21:00 08/30/18 08:57 Diane-Colace PO 1 tab BID SHREYAS Administration Sennosides 17.2 mg 08/28/18 15:32 Senokot PO Q12H PRN Moderate Constipation Terbutaline Sulfate 1 mg 08/29/18 06:19 Brethine Inj SQ UNSCH PRN For Extravasation Objective Remarks: Abd:soft,nt,nd Lainez in place Right groin area with small drainage for now. 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 Once infection clears with need cystoscopy. May need SP tube placement in future. Will leave lainez for now. Air noted in SQ tissue over lower abdomen. WBC count is improving. Continue to monitor clinically. Hopefully urine drainage from left groin will stop after lainez has been placed. Will monitor. Continue IV abx for now. B/C positive: gram + Repeat UCx pending Will follow.
[2018-08-30 10:56] LABS: Bilirubin,Urine Negative (Negative); Clarity,Urine Turbid (Clear); Glucose,Urine (UA) Negative (Negative); Leukocyte Esterase,Urine Large (Negative); Nitrite,Urine Negative (Negative); Urobilinogen,Urine 0.2 mg/dL (Less than 2)
[2018-08-30 11:10] LABS: Color,Urine Light-Yellow (Yellw/Straw)
[2018-08-30 11:11] LABS: Bacteria,Urine Many /hpf; WBC,Urine Innumerable /hpf (0-5)
--- NOTE | 2018-08-30 12:30 | P.PN ---
Subjective Interval history: Follow-up sepsis. Patient without complaints stable BP of Levophed. Abdominal CT results noted. Awaiting return call from Physical Exam Vital signs: Vital Signs 08/29/18 12:30 08/29/18 13:00 08/29/18 13:30 Temperature Pulse Rate 86 86 78 Respiratory Rate 23 22 19 Blood Pressure 104/63 104/39 L 119/56 L Pulse Oximetry 100 96 08/29/18 14:00 08/29/18 14:30 08/29/18 15:00 Temperature Pulse Rate 72 82 74 Respiratory Rate 21 23 21 Blood Pressure 97/44 L 114/64 106/50 L Pulse Oximetry 97 94 L 99 08/29/18 15:30 08/29/18 16:00 08/29/18 16:30 Temperature 99 F Pulse Rate 72 78 76 Respiratory Rate 21 23 19 Blood Pressure 113/56 L 93/45 L 112/53 L Pulse Oximetry 99 98 08/29/18 16:53 08/29/18 19:15 08/29/18 20:00 Temperature 99 F Pulse Rate 74 88 Respiratory Rate 15 20 Blood Pressure 100/51 L 115/53 L Pulse Oximetry 97 97 94 L 08/30/18 00:00 08/30/18 04:00 08/30/18 07:00 Temperature 99 F 98.8 F Pulse Rate 88 80 Respiratory Rate 15 13 Blood Pressure 94/47 L 112/52 L Pulse Oximetry 97 97 98 08/30/18 08:00 Temperature Pulse Rate 85 Respiratory Rate Blood Pressure 112/72 Pulse Oximetry Intake & Output 08/29/18 08/30/18 08/30/18 18:59 06:59 18:59 Intake Total 1143.5 / 1143.5 490 / 490 1617 / 1617 Output Total 50 / 50 Balance 1143.5 / 1143.5 440 / 440 1617 / 1617 Weight 95.6 kg Intake: IV 743.5 / 743.5 250 / 250 1617 / 1617 NS Inj 1,000 ML @ 100 mls/hr IV 100 / 100 1000 / 1000 .CONT .Q10H [facility] Rx#:[id number] Flexbumin 25% Inj 50 ML @ 60 50 / 50 50 / 50 50 / 50 mls/hr IV.SIG Q12H [facility] Rx#: [id number] Flexbumin 25% Inj 100 ML @ 60 100 / 100 mls/hr IV.SIG ONCE ONE Rx#: [id number] Levophed-Dextrose 4 mg/250 ml 26.5 / 26.5 Drip 4 mg In 250 ml @ 2 MCG/MIN 7.5 mls/hr IV.SIG TITRATE PRN Rx#:[id number] Zosyn 3.375 GM Premix 50 ML @ 50 / 50 100 / 100 50 / 50 100 mls/hr IV.SIG Q6H [facility] Rx#: [id number] Vancomycin Inj 1,700 MG In NS 517 / 517 517 / 517 Inj 500 ML @ 344.667 mls/hr IV. SIG Q12H [facility] Rx#:[id number] Oral 400 / 400 240 / 240 Output: Stool Amount (Stoma) 50 / 50 Left Upper Abdomen 50 / 50 Other: # Voids 5 3 # Incontinent Voids 3 Date of Last Bowel Movement 08/29/18 08/30/18 - Urinary Catheter Management Indwelling Urethral Catheter Cath placed during this visit: yes Reason for continuing: Other continuation reason Insertion date: 08/30/18 Insertion time: 10:00 Results - Labs CBC & Chem 7: 08/30/18 06:41 08/30/18 06:41 Laboratory Results - last 24 hr 08/29/18 08/29/18 08/29/18 03:45 17:14 20:53 CBC w Diff WBC RBC Hgb Hct MCV MCH MCHC RDW Plt Count MPV Neut % (Auto) Lymph % (Auto) [place] % (Auto) Eos % (Auto) Baso % (Auto) Neut # (Auto) Lymph # (Auto) [place] # (Auto) Eos # (Auto) Baso # (Auto) WBC Differential Differential Comment Sodium Potassium Chloride Carbon Dioxide Anion Gap BUN Creatinine Estimated GFR POC Glucose 193 H 219 H Random Glucose Hemoglobin A1c 12.7 H Calcium Prot Corrected Calcium Magnesium Total Protein Albumin Urine Color Urine Clarity Urine pH Ur Specific [place] Urine Protein Urine Glucose (UA) Urine Ketones Urine Occult Blood Urine Nitrate Urine Bilirubin Urine Urobilinogen Ur Leukocyte Esterase Urine WBC Urine Bacteria Micro UA Comment Ur Microscopic Review Urine Culture Comments 08/30/18 08/30/18 08/30/18 02:55 06:41 06:41 CBC w Diff Auto diff final WBC 12.4 H RBC 3.36 L Hgb 10.3 L Hct 29.0 L MCV 86.5 MCH 30.5 MCHC 35.3 RDW 12.5 Plt Count 180 MPV 7.5 Neut % (Auto) 86.6 H Lymph % (Auto) 7.9 L [place] % (Auto) 4.1 Eos % (Auto) 1.2 Baso % (Auto) 0.2 Neut # (Auto) 10.8 H Lymph # (Auto) 1.0 [place] # (Auto) 0.5 Eos # (Auto) 0.1 Baso # (Auto) 0.0 WBC Differential . Differential Comment . Sodium 140 Potassium 3.5 Chloride 109 H Carbon Dioxide 21.0 Anion Gap 10 BUN 14 Creatinine 0.86 Estimated GFR 88 L POC Glucose 137 H Random Glucose 146 H Hemoglobin A1c Calcium 7.4 L* Prot Corrected Calcium 8.3 L Magnesium 1.5 Total Protein 5.5 L Albumin 1.9 L Urine Color Urine Clarity Urine pH Ur Specific [place] Urine Protein Urine Glucose (UA) Urine Ketones Urine Occult Blood Urine Nitrate Urine Bilirubin Urine Urobilinogen Ur Leukocyte Esterase Urine WBC Urine Bacteria Micro UA Comment Ur Microscopic Review Urine Culture Comments 08/30/18 08/30/18 08:08 10:00 CBC w Diff WBC RBC Hgb Hct MCV MCH MCHC RDW Plt Count MPV Neut % (Auto) Lymph % (Auto) [place] % (Auto) Eos % (Auto) Baso % (Auto) Neut # (Auto) Lymph # (Auto) [place] # (Auto) Eos # (Auto) Baso # (Auto) WBC Differential Differential Comment Sodium Potassium Chloride Carbon Dioxide Anion Gap BUN Creatinine Estimated GFR POC Glucose 140 H Random Glucose Hemoglobin A1c Calcium Prot Corrected Calcium Magnesium Total Protein Albumin Urine Color Light-yellow Urine Clarity Turbid H Urine pH 6.0 Ur Specific [place] 1.020 Urine Protein 100 H Urine Glucose (UA) Negative Urine Ketones Trace H Urine Occult Blood Large H Urine Nitrate Negative Urine Bilirubin Negative Urine Urobilinogen 0.2 Ur Leukocyte Esterase Large H Urine WBC Innumerable H Urine Bacteria Many H Micro UA Comment Culture indicated Ur Microscopic Review Microscopic reviewed Urine Culture Comments Culture indicated Microbiology 08/28/18 13:14 Blood - Peripheral Aerobic Blood Culture - Preliminary pleomorphic gram positive rods 08/28/18 13:14 Blood - Peripheral Anaerobic Blood Culture - Preliminary No growth in 2 days 08/28/18 13:19 Blood - Peripheral Aerobic Blood Culture - Preliminary pleomorphic gram positive rods 08/28/18 13:19 Blood - Peripheral Anaerobic Blood Culture - Preliminary No growth in 2 days 08/28/18 17:30 Clean Catch Urine Urine Culture - Final >100,000 cfu/mL mixed gram positive ino (probable contaminantes) - Imaging Impressions Abdomen/Pelvis CT 08/29/18 00:00 CONCLUSION: 1. Abnormal gas collection along the left inguinal region which extends out laterally into the subcutaneous fat with surrounding inflammatory change. There is an abnormal gas collection also noted along the base of the scrotum and perineum likely is continuous with this. There is soft tissue swelling and thickening around the base of the penis. No drainable fluid collection. 2. Bladder wall thickening. 3. Small bilateral pleural effusions. 4. Mildly nonspecific bowel gas pattern most characteristic of an ileus. - Procedures none Assessment and Plan - Plan This is a 68-year-old male with a history of diabetes mellitus, A. fib, hypertension, diabetic foot infection with osteomyelitis status post resection and megacolon status post colostomy. Today, patient fell from his chair and was unable to get up because of generalized weakness. He was found to have uncontrolled diabetes, acute kidney injury and diabetic foot infection involving left ankle and possibly right fourth toe Septic shock with UTI. Also has pleomorphic gram-positive michael bacteremia. Abnormal CT with abnormal gas collection along the left inguinal region which extends out laterally into the subcutaneous fat with surrounding inflammatory change. There is an abnormal gas collection also noted along the base of the scrotum and perineum likely is continuous with this. There is soft tissue swelling and thickening around the base of the penis. No drainable fluid collection. Bladder wall thickening. Resolved septic shock after 7 L fluid bolus and Levophed drip. Continue IV fluids, IV albumin, IV Zosyn and vancomycin. We will add IV clindamycin in light of abdominal CT results. History of fourniers gangrene. Consult infectious disease. Wound care and consult podiatry follow-up cultures Acute kidney injury secondary to sepsis and dehydration. CK within normal limits. Resolved Uncontrolled diabetes secondary to noncompliance and sepsis. Improved with IV hydration continue monitor fingersticks with sliding scale coverage. Diabetic education. Will restart metformin if no intervention Pseudohyponatremia. Asymptomatic. 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 Ellis catheter per . Will need cystoscopy once stable. May need SP tube placement in future. Tinea cruis. Nystatin cream Ankle ulceration, sacral and gluteal decub and colostomy. Wound care s/p podiatry evaluation DVT prophylaxis with SCD and subcu heparin
[2018-08-30] MEDS: Clindamycin 900 mg/NS Premix 900 MG/50 ML PIGGYBACK IV.SIG SCH ×2 (12:33→20:45)
--- NOTE | 2018-08-30 21:04 | P.CONID ---
History of Present Illness Service: ID Consult date: 08/30/18 Requesting Physician: Jai Hawkins Reason for Consult: GPR bacteremia with abnomral abd CT Primary Care Provider: No Primary Care Physician Family Provider: No Primary Care Physician Chief Complaint: Generalized weakness History of Present Illness: Pt is a poor historian; history obtained from the chart review 68-year-old male with a history of diabetes mellitus, A. 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 He also noted some pain swelling, rednsess of hte scrotal area , but can tell how long he has it He complains of blurred vision, polyuria, polydipsia and polyphagia. He was started on aggressive IV hydration and received 15 units of regular insulin. Repeat fingerstick is down to 350. No fever, but WBC on presentatio of 27 K, lactic acidosis of 4.8 Pt was hypotensive and afebril on presentations Blood clx growing gram positive rods Urine abnomal, clx has gram positive ino He also was started on Zosyn and vancomycin because of severe sepsis from infected left ankle wound. CT showed Abnormal gas collection along the left inguinal region which extends out laterally into the subcutaneous fat with surrounding inflammatory change. There is an abnormal gas collection also noted along the base of the scrotum and perineum likely is continuous with this.. There is soft tissue swelling and thickening around the base of the penis. No drainable fluid collection. Bladder wall thickening. Pt is on Piperacillin/Tazobactam/, Vancomycin HCl and Clindamycin Pt was seen by urologist Dr Cassidy who diagnosed him with urine leaking at the left groin region. He recommended a CT scan with delayed images to evaluate the bladder and the ureters, treatment of constipation with gentle saline irrigation through the ostomy with digitalization and general surgery evaluation. Past med history: diabetes mellitus, A. 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 FAMILY history No pertinent family history denies CAD or diabetes mellitus. Review of Systems All other systems reviewed negative except as stated in HPI, other (poor historian) [facility] - History History 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 - Social History I have reviewed the patient's Social History: Yes - Tobacco History Second Hand Smoke Exposure: No Tobacco Use In Past 30 Days: No Smoking Status: Never smoker - Alcohol History How Often Do You Have a Drink Containing Alcohol: Never - Substance Use History Substance History: No History of Abuse - Travel History Recent Travel in the [place] Within the Last 8 Weeks: No Recent Travel Out of the Country Within the Last 8 Weeks: No - Immunization History Tetanus Immunization: <5 Years Hx Influenza Vaccine This Season: No Medications and Allergies Active Medications: Active Medications Acetaminophen (Tylenol) 650 mg PO Q4H PRN PRN Reason: Temp > 100.4 Last Admin: 08/29/18 04:19 Dose: 650 mg Bisacodyl (Dulcolax Supp) 10 mg RECTAL DAILY PRN PRN Reason: SEVERE CONSITIPATION Collagenase (Santyl Oint) 1 applicatio TOPICAL DAILY [facility] Last Admin: 08/30/18 08:57 Dose: 1 applicatio Dextrose (D50w Vial) 50 ml IV.PUSH UNSCH PRN PRN Reason: PER HYPOGLYCEMIA PROTOCOL Glucagon (Glucagon Inj) 1 mg OTHER PRN PRN PRN Reason: for Hypoglycemia Protocol Heparin Sodium (Porcine) (Heparin Inj) 5,000 units SQ Q12H [facility] Last Admin: 08/30/18 15:13 Dose: 5,000 units Piperacillin/Tazobactam/Dextrose (Zosyn 3.375 Gm Premix) 50 mls @ 100 mls/hr IV.SIG Q6H [facility] Last Infusion: 08/30/18 16:20 Dose: Infused Sodium Chloride (Ns Inj) 1,000 mls @ 100 mls/hr IV.CONT .Q10H [facility] Last Admin: 08/30/18 19:02 Dose: 100 mls/hr Norepinephrine Bitartrate (Levophed-Dextrose 4 Mg/250 Ml Drip) 4 mg in 250 mls @ 7.5 mls/hr IV.SIG TITRATE PRN; Protocol PRN Reason: Per Protocol Last Titration: 08/29/18 12:15 Dose: 0 mcg/min, 0 mls/hr Albumin Human (Flexbumin 25% Inj) 50 mls @ 60 mls/hr IV.SIG Q12H [facility] Last Infusion: 08/30/18 11:05 Dose: Infused Vancomycin HCl 1,700 mg/ (Sodium Chloride) 517 mls @ 344.667 mls/hr IV.SIG Q12H [facility] Last Infusion: 08/30/18 11:45 Dose: Infused Clindamycin/Sodium Chloride (Cleocin 900 Mg/Ns Premix) 900 mg in 50 mls @ 100 mls/hr IV.SIG Q8H [facility] Last Admin: 08/30/18 20:45 Dose: 100 mls/hr Insulin Aspart (Novolog Insulin Correctional Sugar Inj) 0 unit SQ ACHS AND 3AM [facility]; Protocol Last Admin: 08/30/18 17:47 Dose: 15 unit Lactulose (Lactulose Liq) 30 ml PO DAILY PRN PRN Reason: SEVERE CONSITIPATION Magnesium Oxide (Mag-Ox) 400 mg PO BID [facility] Stop: 08/31/18 08:59 Last Admin: 08/30/18 20:46 Dose: 400 mg Miscellaneous Information ([facility] Ordered Lab Info) 0 each OTHER ONCE ONE Stop: 08/31/18 09:46 Nystatin (Mycostatin Cream) 1 applicatio TOPICAL QID [facility] Last Admin: 08/30/18 20:46 Dose: 1 applicatio Ondansetron HCl (Zofran Inj) 4 mg IV.PUSH Q6H PRN PRN Reason: NAUSEA OR VOMITING Pharmacy Profile Note (Vancomycin Consult Pharmacy) 1 each OTHER UNSCH PRN PRN Reason: Pharmacy to dose Senna/Docusate Sodium (Diane-Colace) 1 tab PO BID [facility] Last Admin: 08/30/18 20:46 Dose: 1 tab Sennosides (Senokot) 17.2 mg PO Q12H PRN PRN Reason: Moderate Constipation Terbutaline Sulfate (Brethine Inj) 1 mg SQ UNSCH PRN PRN Reason: For Extravasation Allergies Allergy/AdvReac Type Severity Reaction Status Date / Time Influenza Virus Vaccines Allergy Severe Anaphylaxis Verified 08/28/18 12:12 *MDRO Multi-Drug Resistant AdvReac Unknown Flushing Uncoded 08/28/18 12:12 Organism Home Medications Medication Instructions Recorded Confirmed Type No Known Home Medications 08/28/18 08/28/18 History Exam Vital signs: Vital Signs 08/30/18 00:00 08/30/18 04:00 08/30/18 07:00 Temperature 99 F 98.8 F Pulse Rate 88 80 Respiratory Rate 15 13 Blood Pressure 94/47 L 112/52 L Pulse Oximetry 97 97 98 08/30/18 07:01 08/30/18 07:31 08/30/18 08:00 Temperature Pulse Rate 74 72 84 Respiratory Rate 13 14 25 H Blood Pressure 107/57 L 111/58 L 109/95 H Pulse Oximetry 08/30/18 08:01 08/30/18 09:01 08/30/18 10:00 Temperature Pulse Rate 82 82 84 Respiratory Rate 26 H 21 18 Blood Pressure 101/50 L 104/54 L 98/50 L Pulse Oximetry 08/30/18 10:01 08/30/18 11:00 08/30/18 11:01 Temperature Pulse Rate 86 76 76 Respiratory Rate 22 22 20 Blood Pressure 100/52 L 108/54 L 109/50 L Pulse Oximetry 08/30/18 12:01 08/30/18 12:31 08/30/18 13:01 Temperature 99.0 F Pulse Rate 72 80 82 Respiratory Rate 25 H 21 27 H Blood Pressure 116/45 L 125/58 L 96/47 L Pulse Oximetry 08/30/18 13:31 08/30/18 14:01 08/30/18 14:31 Temperature Pulse Rate 80 88 76 Respiratory Rate 20 19 17 Blood Pressure 101/54 L 110/59 L 107/57 L Pulse Oximetry 08/30/18 15:00 08/30/18 15:23 08/30/18 16:00 Temperature 98.8 F Pulse Rate 78 78 84 Respiratory Rate 24 24 Blood Pressure 110/55 L 111/60 114/54 L Pulse Oximetry 98 Intake & Output 08/30/18 08/30/18 08/31/18 06:59 18:59 06:59 Intake Total 490 / 490 1956 / 1956 1000 / 1000 Output Total 50 / 50 1450 / 1450 Balance 440 / 440 507 / 507 1000 / 1000 Weight 95.6 kg Intake: IV 250 / 250 1717 / 1717 1000 / 1000 NS Inj 1,000 ML @ 100 mls/hr IV 100 / 100 1000 / 1000 1000 / 1000 .CONT .Q10H [facility] Rx#:[id number] Flexbumin 25% Inj 50 ML @ 60 50 / 50 50 / 50 mls/hr IV.SIG Q12H [facility] Rx#: [id number] Cleocin 900 mg/NS Premix 900 mg 50 / 50 In 50 ml @ 100 mls/hr IV.SIG Q8H [facility] Rx#:[id number] Zosyn 3.375 GM Premix 50 ML @ 100 / 100 100 / 100 100 mls/hr IV.SIG Q6H [facility] Rx#: [id number] Vancomycin Inj 1,700 MG In NS 517 / 517 Inj 500 ML @ 344.667 mls/hr IV. SIG Q12H [facility] Rx#:[id number] Oral 240 / 240 240 / 240 Output: Urine Amount (Catheter) 1450 / 1450 Indwelling Urethral Catheter 1450 / 1450 Stool Amount (Stoma) 50 / 50 Left Upper Abdomen 50 / 50 Other: # Voids 3 # Incontinent Voids 3 Date of Last Bowel Movement 08/29/18 08/30/18 - Constitutional no acute distress, obese - Routine HEENT Exam Head: Present: normocephalic, atraumatic Eye: Present: EOMI, PERRL ENT: Present: mucous membranes moist, oropharynx clear - Routine Neck Exam Present: supple, full ROM - Routine Respiratory Exam Present: decreased breath sounds, CTA bilaterally - Routine Cardiovascular Exam Present: RRR, S1, S2. Absent: murmur, gallop, rubs - Routine Abdominal Exam Present: soft, normoactive bowel sounds, ostomy (pink, stool OK). Absent: tenderness, distended, organomegaly, mass - Routine Exam Scrotal: Present: swelling, tenderness, erythema Comments: lainez in place with some purulence present at meatus urine draining L groin - Routine Extremities Exam Present: edema (2+). Absent: cyanosis, clubbing Comments: Left lateral ankle ulcer with minimal erythema, no purulence . - Routine Skin Exam Absent: intact, cyanosis, erythema - Routine Neurological Exam Present: alert, oriented X3, CN II-XII intact, hearing grossly intact, normal speech - Routine Psychiatric Exam Present: normal affect, cooperative Results - Labs CBC & Chem 7: 08/30/18 06:41 08/30/18 06:41 Labs: Laboratory Results - last 24 hr 08/29/18 08/30/18 08/30/18 20:53 02:55 06:41 CBC w Diff Auto diff final WBC 12.4 H RBC 3.36 L Hgb 10.3 L Hct 29.0 L MCV 86.5 MCH 30.5 MCHC 35.3 RDW 12.5 Plt Count 180 MPV 7.5 Neut % (Auto) 86.6 H Lymph % (Auto) 7.9 L [place] % (Auto) 4.1 Eos % (Auto) 1.2 Baso % (Auto) 0.2 Neut # (Auto) 10.8 H Lymph # (Auto) 1.0 [place] # (Auto) 0.5 Eos # (Auto) 0.1 Baso # (Auto) 0.0 WBC Differential . Differential Comment . Sodium Potassium Chloride Carbon Dioxide Anion Gap BUN Creatinine Estimated GFR POC Glucose 219 H 137 H Random Glucose Calcium Prot Corrected Calcium Magnesium Total Protein Albumin Urine Color Urine Clarity Urine pH Ur Specific [place] Urine Protein Urine Glucose (UA) Urine Ketones Urine Occult Blood Urine Nitrate Urine Bilirubin Urine Urobilinogen Ur Leukocyte Esterase Urine WBC Urine Bacteria Micro UA Comment Ur Microscopic Review Urine Culture Comments 08/30/18 08/30/18 08/30/18 06:41 08:08 10:00 CBC w Diff WBC RBC Hgb Hct MCV MCH MCHC RDW Plt Count MPV Neut % (Auto) Lymph % (Auto) [place] % (Auto) Eos % (Auto) Baso % (Auto) Neut # (Auto) Lymph # (Auto) [place] # (Auto) Eos # (Auto) Baso # (Auto) WBC Differential Differential Comment Sodium 140 Potassium 3.5 Chloride 109 H Carbon Dioxide 21.0 Anion Gap 10 BUN 14 Creatinine 0.86 Estimated GFR 88 L POC Glucose 140 H Random Glucose 146 H Calcium 7.4 L* Prot Corrected Calcium 8.3 L Magnesium 1.5 Total Protein 5.5 L Albumin 1.9 L Urine Color Light-yellow Urine Clarity Turbid H Urine pH 6.0 Ur Specific [place] 1.020 Urine Protein 100 H Urine Glucose (UA) Negative Urine Ketones Trace H Urine Occult Blood Large H Urine Nitrate Negative Urine Bilirubin Negative Urine Urobilinogen 0.2 Ur Leukocyte Esterase Large H Urine WBC Innumerable H Urine Bacteria Many H Micro UA Comment Culture indicated Ur Microscopic Review Microscopic reviewed Urine Culture Comments Culture indicated 08/30/18 08/30/18 12:21 16:45 CBC w Diff WBC RBC Hgb Hct MCV MCH MCHC RDW Plt Count MPV Neut % (Auto) Lymph % (Auto) [place] % (Auto) Eos % (Auto) Baso % (Auto) Neut # (Auto) Lymph # (Auto) [place] # (Auto) Eos # (Auto) Baso # (Auto) WBC Differential Differential Comment Sodium Potassium Chloride Carbon Dioxide Anion Gap BUN Creatinine Estimated GFR POC Glucose 215 H 254 H Random Glucose Calcium Prot Corrected Calcium Magnesium Total Protein Albumin Urine Color Urine Clarity Urine pH Ur Specific [place] Urine Protein Urine Glucose (UA) Urine Ketones Urine Occult Blood Urine Nitrate Urine Bilirubin Urine Urobilinogen Ur Leukocyte Esterase Urine WBC Urine Bacteria Micro UA Comment Ur Microscopic Review Urine Culture Comments - Imaging Impressions Abdomen/Pelvis CT 08/29/18 00:00 CONCLUSION: 1. Abnormal gas collection along the left inguinal region which extends out laterally into the subcutaneous fat with surrounding inflammatory change. There is an abnormal gas collection also noted along the base of the scrotum and perineum likely is continuous with this.. There is soft tissue swelling and thickening around the base of the penis. No drainable fluid collection. 2. Bladder wall thickening. 3. Small bilateral pleural effusions. 4. Mildly nonspecific bowel gas pattern most characteristic of an ileus. Ankle X-Ray 08/29/18 00:00 CONCLUSION: Chronic change as described above. Soft tissue swelling or bony destruction is not seen at the ankle. Foot X-Ray 08/29/18 09:38 CONCLUSION: Chronic appearing change as described above related to postoperative change and degenerative change. The degenerative change may be secondary to a Charcot foot. Foot X-Ray 08/29/18 09:40 CONCLUSION: Chronic change as described above. An area of acute bony destruction or acute periosteal reaction is not clearly seen on this plain film examination. 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 Could be contamination cont broad spectrum abx: zosyn, vancomycin fu blood clx untll final dc clindamycin will follow further rec's to follow aurea Hawkins
[2018-08-31] MEDS: Piperacil/Tazo 3.375 GM Premix 50 ML IV.SIG SCH ×4 (03:32→22:03)
[2018-08-31] MEDS: Heparin - SQ 10,000 UNITS/ML Vial SQ SCH ×2 (03:32→17:19)
[2018-08-31] MEDS: Insulin NovoLOG Aspart Correctional Sugar Inj SQ SCH ×5 (03:33→20:26)
[2018-08-31] MEDS: Sod Chloride 0.9% Inj 1,000 ML IV.CONT SCH (03:49)
[2018-08-31 06:50] LABS: Calcium 7.4 mg/dL (8.5-10.1); Carbon Dioxide 22.3 meq/L (21.0-32.0); Magnesium 1.6 mg/dL (1.5-2.5); Potassium 3.7 meq/L (3.5-5.1)
[2018-08-31 07:07] LABS: Calcium-Albumin Corrected 8.3 mg/dL (8.5-10.1); Total Protein 5.5 g/dL (6.4-8.2)
[2018-08-31] MEDS: Collagenase Oint 30 GM Tube TOPICAL SCH (08:37)
[2018-08-31] MEDS: Senna/Docusate Sodium 8.6/50 MG Tablet PO SCH ×2 (08:38→20:27)
--- NOTE | 2018-08-31 08:57 | P.PNURO ---
Subjective Patient symptoms today: Pt seen and examined. Feels better. No fever. Ostomy working now. Objective Vital Signs: Vital Signs 08/30/18 09:01 08/30/18 10:00 08/30/18 10:01 Temperature Pulse Rate 82 84 86 Respiratory Rate 21 18 22 Blood Pressure 104/54 L 98/50 L 100/52 L Pulse Oximetry 08/30/18 11:00 08/30/18 11:01 08/30/18 12:01 Temperature 99.0 F Pulse Rate 76 76 72 Respiratory Rate 22 20 25 H Blood Pressure 108/54 L 109/50 L 116/45 L Pulse Oximetry 08/30/18 12:31 08/30/18 13:01 08/30/18 13:31 Temperature Pulse Rate 80 82 80 Respiratory Rate 21 27 H 20 Blood Pressure 125/58 L 96/47 L 101/54 L Pulse Oximetry 08/30/18 14:01 08/30/18 14:31 08/30/18 15:00 Temperature Pulse Rate 88 76 78 Respiratory Rate 19 17 24 Blood Pressure 110/59 L 107/57 L 110/55 L Pulse Oximetry 08/30/18 15:23 08/30/18 16:00 08/30/18 20:00 Temperature 98.8 F 98.7 F Pulse Rate 78 84 72 Respiratory Rate 24 19 Blood Pressure 111/60 114/54 L 124/84 Pulse Oximetry 98 100 08/31/18 00:00 08/31/18 04:00 08/31/18 08:00 Temperature 97.4 F L 97.8 F 97.9 F Pulse Rate 78 74 65 Respiratory Rate 23 19 21 Blood Pressure 111/55 L 125/61 125/61 Pulse Oximetry 99 99 96 Intake & Output 08/30/18 08/31/18 08/31/18 18:59 06:59 18:59 Intake Total 1956 / 7 3437 / 3437 Output Total 1450 / 1450 2350 / 2350 Balance 507 / 507 1087 / 1087 Weight 99.2 kg Intake: IV 1717 / 1717 2717 / 2717 NS Inj 1,000 ML @ 100 mls/hr IV 1000 / 1000 2000 / 2000 .CONT .Q10H [facility] Rx#:[id number] Flexbumin 25% Inj 50 ML @ 60 50 / 50 50 / 50 mls/hr IV.SIG Q12H [facility] Rx#: [id number] Cleocin 900 mg/NS Premix 900 mg 50 / 50 50 / 50 In 50 ml @ 100 mls/hr IV.SIG Q8H [facility] Rx#:[id number] Zosyn 3.375 GM Premix 50 ML @ 100 / 100 100 / 100 100 mls/hr IV.SIG Q6H [facility] Rx#: [id number] Vancomycin Inj 1,700 MG In NS 517 / 517 517 / 517 Inj 500 ML @ 344.667 mls/hr IV. SIG Q12H [facility] Rx#:[id number] Oral 240 / 240 720 / 720 Output: Urine Amount (Catheter) 1450 / 1450 2325 / 2325 Indwelling Urethral Catheter 1450 / 1450 2325 / 2325 Stool Amount (Stoma) Left Upper Abdomen Other: Date of Last Bowel Movement 08/30/18 08/30/18 08/30/18 Result Diagrams: 08/30/18 06:41 08/31/18 06:12 Medications and IVs: Active Medications Generic Name Dose Route Start Last Admin Trade Name Freq PRN Reason Stop Dose Admin Acetaminophen 650 mg 08/28/18 15:32 08/29/18 04:19 Tylenol PO 650 mg Q4H PRN Administration Temp > 100.4 Bisacodyl 10 mg 08/28/18 15:32 Dulcolax Supp RECTAL DAILY PRN SEVERE CONSITIPATION Collagenase 1 applicatio 08/30/18 09:00 08/31/18 08:37 Santyl Oint TOPICAL 1 applicatio DAILY [facility] Administration Dextrose 50 ml 08/28/18 15:28 D50w Vial IV.PUSH UNSCH PRN PER HYPOGLYCEMIA PROTOCOL Glucagon 1 mg 08/28/18 15:28 Glucagon Inj OTHER PRN PRN for Hypoglycemia Protocol Heparin Sodium (Porcine) 5,000 units 08/28/18 16:00 08/31/18 03:32 Heparin Inj SQ 5,000 units Q12H [facility] Administration Piperacillin/Tazobactam/Dextrose 50 mls @ 100 mls/hr 08/28/18 22:00 08/31/18 04:02 Zosyn 3.375 Gm Premix IV.SIG Infused Q6H [facility] Infusion Sodium Chloride 1,000 mls @ 100 mls/hr 08/28/18 15:45 08/31/18 03:49 Ns Inj IV.CONT 100 mls/hr .Q10H [facility] Administration Norepinephrine Bitartrate 4 mg in 250 mls @ 7.5 mls/hr 08/29/18 06:19 12:15 Levophed-Dextrose 4 Mg/250 Ml Drip IV.SIG 0 mcg/min TITRATE PRN 0 mls/hr Per Protocol Titration Protocol 2 MCG/MIN Albumin Human 50 mls @ 60 mls/hr 08/29/18 11:00 08/31/18 00:21 Flexbumin 25% Inj IV.SIG Infused Q12H [facility] Infusion Vancomycin HCl 1,700 mg/ 517 mls @ 344.667 mls/hr 08/30/18 10:00 08/30/18 23: 15 Sodium Chloride IV.SIG Infused Q12H [facility] Infusion Insulin Aspart 0 unit 08/28/18 17:00 08/31/18 08:37 Novolog Insulin Correctional Sugar Inj SQ 10 unit ACHS AND 3AM [facility] Administration Protocol Lactulose 30 ml 08/28/18 15:32 Lactulose Liq PO DAILY PRN SEVERE CONSITIPATION Magnesium Oxide 400 mg 08/30/18 09:00 08/30/18 20:46 Mag-Ox PO 08/31/18 08:59 400 mg BID [facility] Administration Miscellaneous Information 0 each 08/31/18 09:45 [facility] Ordered Lab Info OTHER 08/31/18 09:46 ONCE ONE Nystatin 1 applicatio 08/28/18 18:00 08/31/18 08:37 Mycostatin Cream TOPICAL 1 applicatio QID [facility] Administration Ondansetron HCl 4 mg 08/28/18 15:32 Zofran Inj IV.PUSH Q6H PRN NAUSEA OR VOMITING Pharmacy Profile Note 1 each 08/28/18 15:28 Vancomycin Consult Pharmacy OTHER UNSCH PRN Pharmacy to dose Senna/Docusate Sodium 1 tab 08/28/18 21:00 08/31/18 08:38 Diane-Colace PO Not Given BID [facility] Sennosides 17.2 mg 08/28/18 15:32 Senokot PO Q12H PRN Moderate Constipation Terbutaline Sulfate 1 mg 08/29/18 06:19 Brethine Inj SQ UNSCH PRN For Extravasation Objective Remarks: Abd:soft,nt,nd Lainez in place Right groin area with small drainage for now. 08/31 Abd:soft,nt,nd Left inquinal cellulitis noted which is improving. Crepitus noted. No signs of gangreen Lainez now with clear urine. 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 Once infection clears with need cystoscopy. May need SP tube placement in future. Will leave lainez for now. Air noted in SQ tissue over lower abdomen. WBC count is improving. Continue to monitor clinically. Hopefully urine drainage from left groin will stop after lainez has been placed. Will monitor. Continue IV abx for now. B/C positive: gram + Repeat UCx pending Will follow. 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 No drainage noted since placement of lainez catheter Continue IV abx per ID recommendations Continue present care.
[2018-08-31] MEDS ORDERED: Pharmacy Ordered Lab Info OTHER ONE (09:45)
[2018-08-31] MEDS: Vancomycin Inj 1,700 MG in Sodium Chlor 0.9% Inj 500 ML IV.SIG SCH (09:56)
--- NOTE | 2018-08-31 10:45 | P.PN ---
Subjective Interval history: awake and alert patient up in the chair good po intake colostomy with brown stools- no pain complains telemtry- irregular hythm Physical Exam Vital signs: Vital Signs 08/30/18 11:00 08/30/18 11:01 08/30/18 12:01 Temperature 99.0 F Pulse Rate 76 76 72 Respiratory Rate 22 20 25 H Blood Pressure 108/54 L 109/50 L 116/45 L Pulse Oximetry 08/30/18 12:31 08/30/18 13:01 08/30/18 13:31 Temperature Pulse Rate 80 82 80 Respiratory Rate 21 27 H 20 Blood Pressure 125/58 L 96/47 L 101/54 L Pulse Oximetry 08/30/18 14:01 08/30/18 14:31 08/30/18 15:00 Temperature Pulse Rate 88 76 78 Respiratory Rate 19 17 24 Blood Pressure 110/59 L 107/57 L 110/55 L Pulse Oximetry 08/30/18 15:23 08/30/18 16:00 08/30/18 20:00 Temperature 98.8 F 98.7 F Pulse Rate 78 84 72 Respiratory Rate 24 19 Blood Pressure 111/60 114/54 L 124/84 Pulse Oximetry 98 100 08/31/18 00:00 08/31/18 04:00 08/31/18 08:00 Temperature 97.4 F L 97.8 F 97.9 F Pulse Rate 78 74 65 Respiratory Rate 23 19 21 Blood Pressure 111/55 L 125/61 125/61 Pulse Oximetry 99 99 96 08/31/18 10:00 Temperature Pulse Rate 79 Respiratory Rate Blood Pressure Pulse Oximetry Intake & Output 08/30/18 08/31/18 08/31/18 18:59 06:59 18:59 Intake Total 1957 / 1957 3437 / 3437 Output Total 1450 / 1450 2350 / 2350 Balance 507 / 507 1087 / 1087 Weight 99.2 kg Intake: IV 1717 / 1717 2717 / 2717 NS Inj 1,000 ML @ 100 mls/hr IV 1000 / 1000 1999 / 1999 .CONT .Q10H SHREYAS Rx#:[id number] Flexbumin 25% Inj 50 ML @ 60 50 / 50 50 / 50 mls/hr IV.SIG Q12H SHREYAS Rx#: [id number] Cleocin 900 mg/NS Premix 900 mg 50 / 50 50 / 50 In 50 ml @ 100 mls/hr IV.SIG Q8H SHREYAS Rx#:[id number] Zosyn 3.375 GM Premix 50 ML @ 100 / 100 100 / 100 100 mls/hr IV.SIG Q6H SHREYAS Rx#: [id number] Vancomycin Inj 1,700 MG In NS 517 / 517 517 / 517 Inj 500 ML @ 344.667 mls/hr IV. SIG Q12H SHREYAS Rx#:[id number] Oral 240 / 240 720 / 720 Output: Urine Amount (Catheter) 1450 / 1450 2325 / 2325 Indwelling Urethral Catheter 1450 / 1450 2325 / 2325 Stool Amount (Stoma) Left Upper Abdomen Other: Date of Last Bowel Movement 08/30/18 08/30/18 08/30/18 Narrative: Lower extremity physical exam:awake and alert, oriented x 3, no acute distress Vascular: Dorsalis pedis palpable, posterior tibial 2/4. Capillary refill time within normal limits to digits X5 bilateral foot. Edema not present to bilateral foot and ankle. lungs- no rales, no wheezes regular rhythm abdomen soft, colosotmy bag in place- with brown stools - left inguinal area- with vesiculocutaneous fistula- - some purulent drainage Neuro: Gross sensation intact to bilateral lower extremity. Pinpoint sensation decreased. No hyperalgesia noted to bilateral lower extremity Dermatology: Left lateral ankle ulceration with fibrogranular base and mild hyperkeratotic borders. Mild surrounding erythema. No edema. Minimal clinical signs of infection. - Urinary Catheter Management Indwelling Urethral Catheter Cath placed during this visit: yes Reason for continuing: Acute urinary retention Insertion date: 08/30/18 Insertion time: 10:00 Results - Labs CBC & Chem 7: 08/30/18 06:41 08/31/18 06:12 Laboratory Results - last 24 hr 08/30/18 08/30/18 08/30/18 10:00 12:21 16:45 Sodium Potassium Chloride Carbon Dioxide Anion Gap BUN Creatinine Estimated GFR POC Glucose 215 H 254 H Random Glucose Calcium Prot Corrected Calcium Magnesium Total Protein Urine Color Light-yellow Urine Clarity Turbid H Urine pH 6.0 Ur Specific [place] 1.020 Urine Protein 100 H Urine Glucose (UA) Negative Urine Ketones Trace H Urine Occult Blood Large H Urine Nitrate Negative Urine Bilirubin Negative Urine Urobilinogen 0.2 Ur Leukocyte Esterase Large H Urine WBC Innumerable H Urine Bacteria Many H Micro UA Comment Culture indicated Ur Microscopic Review Microscopic reviewed Urine Culture Comments Culture indicated 08/30/18 08/31/18 08/31/18 21:09 03:23 06:12 Sodium 142 Potassium 3.7 Chloride 109 H Carbon Dioxide 22.3 Anion Gap 11 BUN 12 Creatinine 0.88 Estimated GFR 86 L POC Glucose 138 H 220 H Random Glucose 203 H Calcium 7.4 L* Prot Corrected Calcium 8.3 L Magnesium 1.6 Total Protein 5.5 L Urine Color Urine Clarity Urine pH Ur Specific [place] Urine Protein Urine Glucose (UA) Urine Ketones Urine Occult Blood Urine Nitrate Urine Bilirubin Urine Urobilinogen Ur Leukocyte Esterase Urine WBC Urine Bacteria Micro UA Comment Ur Microscopic Review Urine Culture Comments Microbiology 08/28/18 13:14 Blood - Peripheral Aerobic Blood Culture - Preliminary pleomorphic gram positive rods 08/28/18 13:14 Blood - Peripheral Anaerobic Blood Culture - Preliminary No growth in 2 days 08/28/18 13:19 Blood - Peripheral Aerobic Blood Culture - Preliminary pleomorphic gram positive rods 08/28/18 13:19 Blood - Peripheral Anaerobic Blood Culture - Preliminary No growth in 2 days 08/28/18 17:30 Clean Catch Urine Urine Culture - Final >100,000 cfu/mL mixed gram positive ino (probable contaminantes) - Procedures none Assessment and Plan - Plan 68 y.o male This is a 68-year-old male with a history of diabetes mellitus, A. fib, hypertension, diabetic foot infection with osteomyelitis status post resection and megacolon status post colostomy. Today, patient fell from his chair and was unable to get up because of generalized weakness. He was found to have uncontrolled diabetes, acute kidney injury and diabetic foot infection involving left ankle and possibly right fourth toe Septic shock with UTI. Also has pleomorphic gram-positive michael bacteremia- final sensitivity pending Complicated UTI with vesiculo-cutaneous fistula- left lower abdomen/inguinala jerry Leukocytosis- im[proved -Abnormal CT with abnormal gas collection along the left inguinal region which extends out laterally into the subcutaneous fat with surrounding inflammatory change. There is an abnormal gas collection also noted along the base of the scrotum and perineum likely is continuous with this. There is soft tissue swelling and thickening around the base of the penis. No drainable fluid collection. Bladder wall thickening. Resolved septic shock after 7 L fluid bolus and Levophed drip. Continue IV fluids, IV albumin, IV Zosyn and vancomycin. We will add IV clindamycin in light of abdominal CT results. History of fourniers gangrene. - Wound care and consult podiatry follow-up cultures - continue on zosyn + Vancomycin- ID ff Acute kidney injury secondary to sepsis and dehydration. CK within normal limits. Resolved - goo dpo- Heplock IVF Uncontrolled diabetes secondary to noncompliance and sepsis. - Hemoglobin A1C- 12.7 coverage. Diabetic education. 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 Asymptomatic. 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 -Ellis catheter per . Will need cystoscopy once stable. May need SP tube placement in future. Tinea cruis. Nystatin cream Ankle ulceration, sacral and gluteal decub and colostomy. Wound care s/p podiatry evaluation DVT prophylaxis with SCD and subcu heparin
[2018-08-31] MEDS: Albumin Human 25% Inj 50 ML IV.SIG SCH (11:35)
--- NOTE | 2018-08-31 12:21 | P.DIET ---
Nutritional Evaluation Screening comments: [facility] received for diet education. Pt was admitted with dx of Sepsis and has been transferred from [place] to [facility]. RD will follow medical course and educate at a later date.
--- NOTE | 2018-08-31 13:02 | P.PNID ---
Subjective Remarks: afebrile blood clx with GPR not yet ID'd Antibiotics: zosyn vancomycin Allergies/Adverse Reactions: Allergies Influenza Virus Vaccines Allergy (Severe, Verified 08/28/18 12:12) Anaphylaxis *MDRO Multi-Drug Resistant Organism Adverse Reaction (Unknown, Uncoded 08/28/18 12:12) Flushing 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 Objective Vital Signs 08/30/18 13:01 08/30/18 13:31 08/30/18 14:01 Temperature Pulse Rate 82 80 88 Respiratory Rate 27 H 20 19 Blood Pressure 96/47 L 101/54 L 110/59 L Pulse Oximetry 08/30/18 14:31 08/30/18 15:00 08/30/18 15:23 Temperature Pulse Rate 76 78 78 Respiratory Rate 17 24 24 Blood Pressure 107/57 L 110/55 L 111/60 Pulse Oximetry 08/30/18 16:00 08/30/18 20:00 08/31/18 00:00 Temperature 98.8 F 98.7 F 97.4 F L Pulse Rate 84 72 78 Respiratory Rate 19 23 Blood Pressure 114/54 L 124/84 111/55 L Pulse Oximetry 98 100 99 08/31/18 04:00 08/31/18 08:00 08/31/18 10:00 Temperature 97.8 F 97.9 F Pulse Rate 74 65 79 Respiratory Rate 19 21 Blood Pressure 125/61 125/61 Pulse Oximetry 99 96 Intake & Output 08/30/18 08/31/18 08/31/18 18:59 06:59 18:59 Intake Total 1956 / 7 3437 / 3437 550 / 550 Output Total 1450 / 1450 2350 / 2350 Balance 507 / 507 1087 / 1087 550 / 550 Weight 99.2 kg Intake: IV 1717 / 1717 2717 / 2717 550 / 550 NS Inj 1,000 ML @ 100 mls/hr IV 1000 / 1000 2000 / 2000 500 / 500 .CONT .Q10H SHREYAS Rx#:[id number] Flexbumin 25% Inj 50 ML @ 60 50 / 50 50 / 50 mls/hr IV.SIG Q12H SHREYAS Rx#: [id number] Cleocin 900 mg/NS Premix 900 mg 50 / 50 50 / 50 In 50 ml @ 100 mls/hr IV.SIG Q8H SHREYAS Rx#:[id number] Zosyn 3.375 GM Premix 50 ML @ 100 / 100 100 / 100 50 / 50 100 mls/hr IV.SIG Q6H SHREYAS Rx#: [id number] Vancomycin Inj 1,700 MG In NS 517 / 517 517 / 517 Inj 500 ML @ 344.667 mls/hr IV. SIG Q12H SHREYAS Rx#:[id number] Oral 240 / 240 720 / 720 Output: Urine Amount (Catheter) 1450 / 1450 2325 / 2325 Indwelling Urethral Catheter 1450 / 1450 2325 / 2325 Stool Amount (Stoma) Left Upper Abdomen Other: Date of Last Bowel Movement 08/30/18 08/30/18 08/30/18 08/28/18 13:14 Blood - Peripheral Aerobic Blood Culture - Preliminary pleomorphic gram positive rods 08/28/18 13:14 Blood - Peripheral Anaerobic Blood Culture - Preliminary No growth in 3 days 08/28/18 13:19 Blood - Peripheral Aerobic Blood Culture - Preliminary pleomorphic gram positive rods 08/28/18 13:19 Blood - Peripheral Anaerobic Blood Culture - Preliminary No growth in 3 days 08/30/18 10:00 Catheterized Urine Urine Culture - Pending 08/28/18 17:30 Clean Catch Urine Urine Culture - Final >100,000 cfu/mL mixed gram positive ino (probable contaminantes) Lab - Hematology Results 08/30/18 06:41 CBC w Diff Auto diff final WBC 12.4 H RBC 3.36 L Hgb 10.3 L Hct 29.0 L MCV 86.5 MCH 30.5 MCHC 35.3 RDW 12.5 Plt Count 180 MPV 7.5 Neut % (Auto) 86.6 H Lymph % (Auto) 7.9 L [place] % (Auto) 4.1 Eos % (Auto) 1.2 Baso % (Auto) 0.2 Neut # (Auto) 10.8 H Lymph # (Auto) 1.0 [place] # (Auto) 0.5 Eos # (Auto) 0.1 Baso # (Auto) 0.0 WBC Differential . Differential Comment . Lab - Chemistry Results 08/29/18 08/29/18 08/29/18 03:45 17:14 20:53 Sodium Potassium Chloride Carbon Dioxide Anion Gap BUN Creatinine Estimated GFR POC Glucose 193 H 219 H Random Glucose Hemoglobin A1c 12.7 H Calcium Prot Corrected Calcium Magnesium Total Protein Albumin 08/30/18 08/30/18 08/30/18 02:55 06:41 08:08 Sodium 140 Potassium 3.5 Chloride 109 H Carbon Dioxide 21.0 Anion Gap 10 BUN 14 Creatinine 0.86 Estimated GFR 88 L POC Glucose 137 H 140 H Random Glucose 146 H Hemoglobin A1c Calcium 7.4 L* Prot Corrected Calcium 8.3 L Magnesium 1.5 Total Protein 5.5 L Albumin 1.9 L 08/30/18 08/30/18 08/30/18 12:21 16:45 21:09 Sodium Potassium Chloride Carbon Dioxide Anion Gap BUN Creatinine Estimated GFR POC Glucose 215 H 254 H 138 H Random Glucose Hemoglobin A1c Calcium Prot Corrected Calcium Magnesium Total Protein Albumin 08/31/18 08/31/18 03:23 06:12 Sodium 142 Potassium 3.7 Chloride 109 H Carbon Dioxide 22.3 Anion Gap 11 BUN 12 Creatinine 0.88 Estimated GFR 86 L POC Glucose 220 H Random Glucose 203 H Hemoglobin A1c Calcium 7.4 L* Prot Corrected Calcium 8.3 L Magnesium 1.6 Total Protein 5.5 L Albumin Imaging: ITS Impressions Chest X-Ray 08/28/18 12:34 CONCLUSION: No acute cardiopulmonary disease. Abdomen/Pelvis CT 08/29/18 00:00 CONCLUSION: 1. Abnormal gas collection along the left inguinal region which extends out laterally into the subcutaneous fat with surrounding inflammatory change. There is an abnormal gas collection also noted along the base of the scrotum and perineum likely is continuous with this.. There is soft tissue swelling and thickening around the base of the penis. No drainable fluid collection. 2. Bladder wall thickening. 3. Small bilateral pleural effusions. 4. Mildly nonspecific bowel gas pattern most characteristic of an ileus. Ankle X-Ray 08/29/18 00:00 CONCLUSION: Chronic change as described above. Soft tissue swelling or bony destruction is not seen at the ankle. Foot X-Ray 08/29/18 09:40 CONCLUSION: Chronic change as described above. An area of acute bony destruction or acute periosteal reaction is not clearly seen on this plain film examination. Physical Exam: GENERAL: NAD SKIN: Warm and dry. HEAD: Atraumatic. Normocephalic. EYES: Pupils equal and round. No scleral icterus. No injection or drainage. ENT: No nasal bleeding or discharge. Mucous membranes pink and moist. NECK: Trachea midline. No JVD. CARDIOVASCULAR: Regular rate and rhythm. RESPIRATORY: No accessory muscle use. Clear to auscultation. Breath sounds equal bilaterally. GASTROINTESTINAL: Abdomen soft, non-tender, nondistended. Hepatic and splenic margins not palpable. : L groin crease there is a quite large opening that drains purulent foul smelling urine scrotul w/o edema, erythema MUSCULOSKELETAL: Extremities without clubbing, cyanosis, or edema. No obvious deformities. NEUROLOGICAL: Awake and alert. No obvious cranial nerve deficits. Motor grossly within normal limits. Five out of 5 muscle strength in the arms and legs. Normal speech. PSYCHIATRIC: Appropriate mood and affect; insight and judgment normal. 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 Could be contamination cont broad spectrum abx: zosyn, vancomycin fu blood clx untll final will follow further rec's to follow will [facility] u[facility]
--- NOTE | 2018-08-31 17:32 | P.PNWCN ---
Wound Care Nurse Consult Description: Received consult from Doctor Hawkins for Ostomy management Communicated with: DALY Posada [address] [place] [address] Recommendation: Change ostomy appliance every 5 to 7 days or PRN if leaks occur. Empty pouch when 1/3 to 1/2 full. Monitor stoma for output and color Bowel Diversion Stoma - Bowel Stoma Left Upper Abdomen Stoma Appearance: Beefy Red, Round Loop Supporting Jean-Pierre: No Collection Device: Two-piece, Moldable Wafer Drainage Description: Soft, Brown Diane-Stomal Surrounding Tissue Sensation Description: No Symptoms - Additional Information Additional Information: Patient seen on [address] [place] [address] for ostomy management consult. Patient colostomy is not new. Patient is comfortable caring for ostomy at home independently Ostomy appliance in place is dry and intact. Stoma is round and red, visible through transparent pouch. Effluent is brown and soft.
[2018-08-31] MEDS: Vancomycin Inj 1,500 MG in Sodium Chlor 0.9% Inj 500 ML IV.SIG SCH (23:03)
[2018-09-01] MEDS: Heparin - SQ 10,000 UNITS/ML Vial SQ SCH ×2 (03:18→16:26)
[2018-09-01] MEDS: Insulin NovoLOG Aspart Correctional Sugar Inj SQ SCH ×5 (03:18→22:14)
[2018-09-01] MEDS: Piperacil/Tazo 3.375 GM Premix 50 ML IV.SIG SCH ×4 (03:18→22:13)
[2018-09-01] MEDS: Senna/Docusate Sodium 8.6/50 MG Tablet PO SCH ×2 (09:05→21:50)
[2018-09-01] MEDS: Collagenase Oint 30 GM Tube TOPICAL SCH (09:05)
--- NOTE | 2018-09-01 11:09 | P.PNURO ---
Subjective Patient symptoms today: Pt seen and examined. Still with some drainage from wound site-purulent in nature Objective Vital Signs: Vital Signs 08/31/18 12:00 08/31/18 14:00 08/31/18 16:00 Temperature 98 F 98.5 F Pulse Rate 73 79 70 Respiratory Rate 21 20 Blood Pressure 107/54 L 133/61 Pulse Oximetry 96 08/31/18 20:00 09/01/18 00:00 09/01/18 04:00 Temperature 98.5 F 98.5 F 98.7 F Pulse Rate 85 72 77 Respiratory Rate 20 18 22 Blood Pressure 114/54 L 133/64 133/63 Pulse Oximetry 98 99 98 09/01/18 08:00 Temperature 98.4 F Pulse Rate 69 Respiratory Rate 18 Blood Pressure 145/65 H Pulse Oximetry 99 Intake & Output 08/31/18 09/01/18 09/01/18 18:59 06:59 18:59 Intake Total 1837 / 1837 1335 / 1335 50 / 50 Output Total 2049 / 2049 4000 / 4000 Balance -213 / -213 -2665 / -2665 50 / 50 Weight 99.8 kg Intake: IV 1117 / 1117 615 / 615 50 / 50 NS Inj 1,000 ML @ 100 mls/hr IV 500 / 500 .CONT .Q10H SHREYAS Rx#:[id number] Zosyn 3.375 GM Premix 50 ML @ 100 / 100 100 / 100 50 / 50 100 mls/hr IV.SIG Q6H SHREYAS Rx#: [id number] Vancomycin Inj 1,500 MG In NS 517 / 517 515 / 515 Inj 500 ML @ 250 mls/hr IV.SIG Q12H SHREYAS Rx#:[id number] Oral 720 / 720 720 / 720 Output: Urine Amount (Catheter) 1999 4000 / 4000 Indwelling Urethral Catheter 1999 4000 / 4000 Stool Amount (Stoma) 50 / 50 Left Upper Abdomen 50 / 50 Other: Date of Last Bowel Movement 08/30/18 09/01/18 09/01/18 # Bowel Movements 2 Result Diagrams: 08/30/18 06:41 08/31/18 06:12 Medications and IVs: Active Medications Generic Name Dose Route Start Last Admin Trade Name Freq PRN Reason Stop Dose Admin Acetaminophen 650 mg 08/28/18 15:32 08/29/18 04:19 Tylenol PO 650 mg Q4H PRN Administration Temp > 100.4 Bisacodyl 10 mg 08/28/18 15:32 Dulcolax Supp RECTAL DAILY PRN SEVERE CONSITIPATION Collagenase 1 applicatio 08/30/18 09:00 09/01/18 09:05 Santyl Oint TOPICAL 1 applicatio DAILY SHREYAS Administration Dextrose 50 ml 08/28/18 15:28 D50w Vial IV.PUSH UNSCH PRN PER HYPOGLYCEMIA PROTOCOL Glucagon 1 mg 08/28/18 15:28 Glucagon Inj OTHER PRN PRN for Hypoglycemia Protocol Heparin Sodium (Porcine) 5,000 units 08/28/18 16:00 09/01/18 03:18 Heparin Inj SQ 5,000 units Q12H SHREYAS Administration Piperacillin/Tazobactam/Dextrose 50 mls @ 100 mls/hr 08/28/18 22:00 09/01/18 09:35 Zosyn 3.375 Gm Premix IV.SIG Infused Q6H SHREYAS Infusion Norepinephrine Bitartrate 4 mg in 250 mls @ 7.5 mls/hr 08/29/18 06:19 12:15 Levophed-Dextrose 4 Mg/250 Ml Drip IV.SIG 0 mcg/min TITRATE PRN 0 mls/hr Per Protocol Titration Protocol 2 MCG/MIN Vancomycin HCl 1,500 mg/ 515 mls @ 250 mls/hr 09/01/18 00:00 09/01/18 01:07 Sodium Chloride IV.SIG Infused Q12H SHREYAS Infusion Insulin Aspart 0 unit 08/28/18 17:00 09/01/18 09:04 Novolog Insulin Correctional Sugar Inj SQ 5 unit ACHS AND 3AM SHREYAS Administration Protocol Insulin Human Isoph/Insulin Regular 8 units 08/31/18 17:00 09/01/18 09:04 Novolin 70/30 Inj SQ 8 units BID@0800,1700 SHREYAS Administration Lactulose 30 ml 08/28/18 15:32 Lactulose Liq PO DAILY PRN SEVERE CONSITIPATION Miscellaneous Information 0 each 09/02/18 11:45 [facility] Ordered Lab Info OTHER 09/02/18 11:46 ONCE ONE Nystatin 1 applicatio 08/28/18 18:00 09/01/18 09:05 Mycostatin Cream TOPICAL 1 applicatio QID SHREYAS Administration Ondansetron HCl 4 mg 08/28/18 15:32 Zofran Inj IV.PUSH Q6H PRN NAUSEA OR VOMITING Pharmacy Profile Note 1 each 08/28/18 15:28 Vancomycin Consult Pharmacy OTHER UNSCH PRN Pharmacy to dose Senna/Docusate Sodium 1 tab 08/28/18 21:00 09/01/18 09:05 Diane-Colace PO 1 tab BID SHREYAS Administration Sennosides 17.2 mg 08/28/18 15:32 Senokot PO Q12H PRN Moderate Constipation Terbutaline Sulfate 1 mg 08/29/18 06:19 Brethine Inj SQ UNSCH PRN For Extravasation Objective Remarks: Abd:soft,nt,nd Lainez in place Right groin area with small drainage for now. 08/31 Abd:soft,nt,nd Left inquinal cellulitis noted which is improving. Crepitus noted. No signs of gangreen Lainez now with clear urine. Pt reports no drainage from left groin site 09/01 Abd:soft,nt,nd. Crepitus not palpated today. Lainez with clear urine. Purulent drainage from wound site. 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 Once infection clears with need cystoscopy. May need SP tube placement in future. Will leave lainez for now. Air noted in SQ tissue over lower abdomen. WBC count is improving. Continue to monitor clinically. Hopefully urine drainage from left groin will stop after lainez has been placed. Will monitor. Continue IV abx for now. B/C positive: gram + Repeat UCx pending Will follow. 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 No drainage noted since placement of lainez catheter Continue IV abx per ID recommendations Continue present care. 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 No drainage noted since placement of lainez catheter Continue IV abx per ID recommendations Possible OR on for cystoscopy/cystogram
[2018-09-01] MEDS: Vancomycin Inj 1,500 MG in Sodium Chlor 0.9% Inj 500 ML IV.SIG SCH (12:31)
[2018-09-01 13:05] LABS: Calcium 7.5 mg/dL (8.5-10.1); Carbon Dioxide 28.9 meq/L (21.0-32.0); Potassium 3.3 meq/L (3.5-5.1)
[2018-09-01 13:16] LABS: Hematocrit 34.5 % (39.0-51.0); Hemoglobin 11.4 gm/dL (13.0-17.0); Mean Corpuscular Hemoglobin 29.3 pg (27.0-34.0); Mean Corpuscular Volume 88.7 fL (80.0-100.0); Mean Platelet Volume 7.4 fL (7.0-11.0); Platelet Count 210 th/mm3 (150-450); Red Blood Count 3.89 mil/mm3 (4.50-5.90); Red Cell Distribution Width 13.1 % (11.6-17.2); White Blood Count 10.4 th/mm3 (4.0-11.0)
--- NOTE | 2018-09-01 19:01 | P.PN ---
Subjective Interval history: afebrile inguinal area -still with some purulent drainage drainage Physical Exam Vital signs: Vital Signs 08/31/18 19:07 08/31/18 20:00 08/31/18 20:07 Temperature 98.5 F Pulse Rate 87 82 79 Respiratory Rate 26 H 30 H 28 H Blood Pressure 137/93 H 114/54 L 114/54 L Pulse Oximetry 100 97 97 08/31/18 21:00 08/31/18 22:00 08/31/18 23:00 Temperature Pulse Rate 75 71 74 Respiratory Rate 28 H 23 24 Blood Pressure Pulse Oximetry 97 94 L 98 09/01/18 00:00 09/01/18 00:44 09/01/18 01:00 Temperature 98.5 F Pulse Rate 78 78 74 Respiratory Rate 20 30 H 32 H Blood Pressure 133/64 133/64 Pulse Oximetry 99 95 98 09/01/18 02:00 09/01/18 03:00 09/01/18 03:25 Temperature Pulse Rate 72 72 76 Respiratory Rate 20 19 Blood Pressure 155/68 H Pulse Oximetry 94 L 97 98 09/01/18 04:00 09/01/18 04:07 09/01/18 05:00 Temperature 98.7 F Pulse Rate 72 71 78 Respiratory Rate 26 H 19 22 Blood Pressure 133/63 133/63 Pulse Oximetry 98 97 97 09/01/18 06:00 09/01/18 07:00 09/01/18 08:00 Temperature 98.4 F Pulse Rate 74 71 71 Respiratory Rate 3 L 11 L 17 Blood Pressure 145/65 H Pulse Oximetry 99 97 94 L 09/01/18 08:48 09/01/18 09:00 09/01/18 10:00 Temperature Pulse Rate 66 71 89 Respiratory Rate 19 19 28 H Blood Pressure 145/65 H Pulse Oximetry 99 99 86 L 09/01/18 11:00 09/01/18 12:00 09/01/18 16:00 Temperature 98.9 F 99.2 F Pulse Rate 78 75 82 Respiratory Rate 23 11 L 20 Blood Pressure 106/51 L 142/65 H Pulse Oximetry 98 95 100 Intake & Output 09/01/18 09/01/18 09/02/18 06:59 18:59 06:59 Intake Total 1335 / 1335 855 / 855 Output Total 4000 / 4000 1900 / 1900 Balance -2665 / -2665 -1045 / -1045 Weight 99.8 kg Intake: IV 615 / 615 615 / 615 Zosyn 3.375 GM Premix 50 ML @ 100 / 100 100 / 100 100 mls/hr IV.SIG Q6H SHREYAS Rx#: [id number] Vancomycin Inj 1,500 MG In NS 515 / 515 515 / 515 Inj 500 ML @ 250 mls/hr IV.SIG Q12H SHREYAS Rx#:[id number] Oral 720 / 720 240 / 240 Output: Urine 1900 / 1900 Urine Amount (Catheter) 4000 / 4000 Indwelling Urethral Catheter 4000 / 4000 Other: Date of Last Bowel Movement 09/01/18 09/01/18 # Bowel Movements 2 Narrative: anicteric lungs- no rales, no wheezes regular rhythm abdomen soft, colosotmy bag in place- with brown stools - left inguinal area- with vesiculocutaneous fistula- - some purulent drainage Neuro: Gross sensation intact to bilateral lower extremity. Pinpoint sensation decreased. No hyperalgesia noted to bilateral lower extremity Dermatology: Left lateral ankle ulceration with fibrogranular base and mild hyperkeratotic borders. Mild surrounding erythema. No edema. Minimal clinical signs of infection. - Urinary Catheter Management Indwelling Urethral Catheter Cath placed during this visit: yes Reason for continuing: Acute urinary retention Insertion date: 08/30/18 Insertion time: 10:00 Suprapubic Cath placed during this visit: yes Reason for continuing: Acute urinary retention Insertion date: 09/03/18 Results - Labs CBC & Chem 7: 09/07/18 05:49 09/07/18 05:49 Laboratory Results - last 24 hr 08/31/18 09/01/18 09/01/18 20:02 03:11 07:38 WBC RBC Hgb Hct MCV MCH MCHC RDW Plt Count MPV Sodium Potassium Chloride Carbon Dioxide Anion Gap BUN Creatinine Estimated GFR POC Glucose 249 H 222 H 180 H Random Glucose Calcium 09/01/18 09/01/18 09/01/18 12:19 12:35 12:35 WBC 10.4 RBC 3.89 L Hgb 11.4 L Hct 34.5 L MCV 88.7 MCH 29.3 MCHC 33.0 RDW 13.1 Plt Count 210 MPV 7.4 Sodium 142 Potassium 3.3 L Chloride 104 Carbon Dioxide 28.9 Anion Gap 9 BUN 10 Creatinine 0.86 Estimated GFR 88 L POC Glucose 361 H Random Glucose 308 H D Calcium 7.5 L 09/01/18 09/01/18 14:48 16:17 WBC RBC Hgb Hct MCV MCH MCHC RDW Plt Count MPV Sodium Potassium Chloride Carbon Dioxide Anion Gap BUN Creatinine Estimated GFR POC Glucose 237 H 206 H Random Glucose Calcium Microbiology 08/30/18 10:00 Catheterized Urine Urine Culture - Preliminary Yeast species 08/28/18 13:14 Blood - Peripheral Aerobic Blood Culture - Final Corynebacterium not JK 08/28/18 13:14 Blood - Peripheral Anaerobic Blood Culture - Preliminary No growth in 4 days 08/28/18 13:19 Blood - Peripheral Aerobic Blood Culture - Final Corynebacterium not JK 08/28/18 13:19 Blood - Peripheral Anaerobic Blood Culture - Preliminary No growth in 4 days - Procedures none Assessment and Plan - Plan 68 y.o male This is a 68-year-old male with a history of diabetes mellitus, A. fib, hypertension, diabetic foot infection with osteomyelitis status post resection and megacolon status post colostomy. Today, patient fell from his chair and was unable to get up because of generalized weakness. He was found to have uncontrolled diabetes, acute kidney injury and diabetic foot infection involving left ankle and possibly right fourth toe S/P Septic shock with UTI. 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 There is an abnormal gas collection also noted along the base of the scrotum and perineum likely is continuous with this. There is soft tissue swelling and thickening around the base of the penis. No drainable fluid collection. Bladder wall thickening. Resolved septic shock after 7 L fluid bolus and Levophed drip. - continue on zosyn + Vancomycin- ID ff - repeat urine culture pending Acute kidney injury secondary to sepsis and dehydration. CK within normal limits. Resolved - good po- Heplock IVF - ff BMP Hypokalemia - give 30meq po x 1 tonight - BMP in am Uncontrolled diabetes secondary to noncompliance and sepsis. - Hemoglobin A1C- 12.7 coverage. Diabetic education. 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 Asymptomatic. 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 -Ellis catheter per . Will need cystoscopy once stable. May need SP tube placement in future. Tinea cruis. Nystatin cream sacral and gluteal decub and colostomy. DVT prophylaxis with SCD and subcu heparin
[2018-09-02] MEDS: Vancomycin Inj 1,500 MG in Sodium Chlor 0.9% Inj 500 ML IV.SIG SCH ×2 (00:22→11:47)
[2018-09-02] MEDS: Piperacil/Tazo 3.375 GM Premix 50 ML IV.SIG SCH ×4 (03:51→22:35)
[2018-09-02] MEDS: Heparin - SQ 10,000 UNITS/ML Vial SQ SCH (03:51)
[2018-09-02] MEDS: Insulin NovoLOG Aspart Correctional Sugar Inj SQ SCH ×5 (04:05→22:33)
[2018-09-02 05:01] LABS: Anion Gap 9 meq/L (5-15); Blood Urea Nitrogen 11 mg/dL (7-18); Calcium 7.6 mg/dL (8.5-10.1); Carbon Dioxide 27.3 meq/L (21.0-32.0); Chloride 105 meq/L (98-107); Glomerular Filtration Rate Greater Than 89 mL/min (>89); Glucose,Random 225 mg/dL (74-106); Potassium 3.7 meq/L (3.5-5.1); Sodium 141 meq/L (136-145)
[2018-09-02] MEDS: Senna/Docusate Sodium 8.6/50 MG Tablet PO SCH ×2 (08:36→22:35)
[2018-09-02] MEDS: Collagenase Oint 30 GM Tube TOPICAL SCH (08:38)
--- NOTE | 2018-09-02 08:50 | P.PNURO ---
Subjective Patient symptoms today: Pt seen and examined. No complaints. Objective Vital Signs: Vital Signs 09/01/18 09:00 09/01/18 10:00 09/01/18 11:00 Temperature Pulse Rate 71 89 78 Respiratory Rate 19 28 H 23 Blood Pressure Pulse Oximetry 99 86 L 98 09/01/18 12:00 09/01/18 16:00 09/01/18 20:00 Temperature 98.9 F 99.2 F 98.6 F Pulse Rate 75 82 79 Respiratory Rate 11 L 20 18 Blood Pressure 106/51 L 142/65 H 114/60 Pulse Oximetry 95 100 97 09/02/18 00:00 09/02/18 00:30 09/02/18 04:00 Temperature 98.1 F 98.4 F Pulse Rate 81 84 74 Respiratory Rate 18 18 Blood Pressure 152/70 H 140/68 Pulse Oximetry 96 98 09/02/18 04:30 09/02/18 04:49 09/02/18 06:58 Temperature Pulse Rate 70 Respiratory Rate 18 12 Blood Pressure Pulse Oximetry 09/02/18 08:00 Temperature Pulse Rate 73 Respiratory Rate Blood Pressure Pulse Oximetry Intake & Output 09/01/18 09/02/18 09/02/18 18:59 06:59 18:59 Intake Total 855 / 855 615 / 615 Output Total 1900 / 1900 3750 / 3750 Balance -1045 / -1045 -3135 / -3135 Weight 95.9 kg Intake: IV 615 / 615 615 / 615 Zosyn 3.375 GM Premix 50 ML @ 100 / 100 100 / 100 100 mls/hr IV.SIG Q6H SHREYAS Rx#: [id number] Vancomycin Inj 1,500 MG In NS 515 / 515 515 / 515 Inj 500 ML @ 250 mls/hr IV.SIG Q12H SHREYAS Rx#:[id number] Oral 240 / 240 Output: Urine 1900 / 1900 1250 / 1250 Urine Amount (Catheter) 2500 / 2500 Indwelling Urethral Catheter 2500 / 2500 Other: Date of Last Bowel Movement 09/01/18 09/01/18 Result Diagrams: 09/01/18 12:35 09/02/18 04:18 Medications and IVs: Active Medications Generic Name Dose Route Start Last Admin Trade Name Freq PRN Reason Stop Dose Admin Acetaminophen 650 mg 08/28/18 15:32 08/29/18 04:19 Tylenol PO 650 mg Q4H PRN Administration Temp > 100.4 Bisacodyl 10 mg 08/28/18 15:32 Dulcolax Supp RECTAL DAILY PRN SEVERE CONSITIPATION Collagenase 1 applicatio 08/30/18 09:00 09/02/18 08:38 Santyl Oint TOPICAL 1 applicatio DAILY SHREYAS Administration Dextrose 50 ml 08/28/18 15:28 D50w Vial IV.PUSH UNSCH PRN PER HYPOGLYCEMIA PROTOCOL Glucagon 1 mg 08/28/18 15:28 Glucagon Inj OTHER PRN PRN for Hypoglycemia Protocol Piperacillin/Tazobactam/Dextrose 50 mls @ 100 mls/hr 08/28/18 22:00 09/02/18 04:21 Zosyn 3.375 Gm Premix IV.SIG Infused Q6H SHREYAS Infusion Norepinephrine Bitartrate 4 mg in 250 mls @ 7.5 mls/hr 08/29/18 06:19 12:15 Levophed-Dextrose 4 Mg/250 Ml Drip IV.SIG 0 mcg/min TITRATE PRN 0 mls/hr Per Protocol Titration Protocol 2 MCG/MIN Vancomycin HCl 1,500 mg/ 515 mls @ 250 mls/hr 09/01/18 00:00 09/02/18 02:26 Sodium Chloride IV.SIG Infused Q12H SHREYAS Infusion Insulin Aspart 0 unit 08/28/18 17:00 09/02/18 08:34 Novolog Insulin Correctional Sugar Inj SQ 10 unit ACHS AND 3AM SHREYAS Administration Protocol Insulin Human Isoph/Insulin Regular 10 units 09/01/18 19:02 09/02/18 08:37 Novolin 70/30 Inj SQ 10 units BID@0800,1700 SHREYAS Administration Lactulose 30 ml 08/28/18 15:32 Lactulose Liq PO DAILY PRN SEVERE CONSITIPATION Miscellaneous Information 0 each 09/02/18 11:45 [facility] Ordered Lab Info OTHER 09/02/18 11:46 ONCE ONE Nystatin 1 applicatio 08/28/18 18:00 09/02/18 08:38 Mycostatin Cream TOPICAL 1 applicatio QID SHREYAS Administration Ondansetron HCl 4 mg 08/28/18 15:32 Zofran Inj IV.PUSH Q6H PRN NAUSEA OR VOMITING Pharmacy Profile Note 1 each 08/28/18 15:28 Vancomycin Consult Pharmacy OTHER UNSCH PRN Pharmacy to dose Senna/Docusate Sodium 1 tab 08/28/18 21:00 09/02/18 08:36 Diane-Colace PO 1 tab BID SHREYAS Administration Sennosides 17.2 mg 08/28/18 15:32 Senokot PO Q12H PRN Moderate Constipation Terbutaline Sulfate 1 mg 08/29/18 06:19 Brethine Inj SQ UNSCH PRN For Extravasation Objective Remarks: Abd:soft,nt,nd Lainez in place Right groin area with small drainage for now. 08/31 Abd:soft,nt,nd Left inquinal cellulitis noted which is improving. Crepitus noted. No signs of gangreen Lainez now with clear urine. Pt reports no drainage from left groin site 09/01 Abd:soft,nt,nd. Crepitus not palpated today. Laienz with clear urine. Purulent drainage from wound site. 09/02 Abd:soft,nt,nd. Crepitus not palpated today. Lainez with clear urine. Purulent drainage from wound site. 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 Once infection clears with need cystoscopy. May need SP tube placement in future. Will leave lainez for now. Air noted in SQ tissue over lower abdomen. WBC count is improving. Continue to monitor clinically. Hopefully urine drainage from left groin will stop after lainez has been placed. Will monitor. Continue IV abx for now. B/C positive: gram + Repeat UCx pending Will follow. 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 No drainage noted since placement of lainez catheter Continue IV abx per ID recommendations Continue present care. 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 No drainage noted since placement of lainez catheter Continue IV abx per ID recommendations Possible OR on for cystoscopy/cystogram and SP tube insertion NPO after MN Hold Heparin
[2018-09-02] MEDS ORDERED: Pharmacy Ordered Lab Info OTHER ONE (11:45)
--- NOTE | 2018-09-02 12:33 | P.PNIM ---
Subjective Interval history: Signs of sepsis improved. Plan for OR (for cystoscopy/cystogram and SP tube insertion) on 09/03/2018. No new complaints from the patient. Physical Exam Vital signs: Vital Signs 09/01/18 16:00 09/01/18 20:00 09/02/18 00:00 Temperature 99.2 F 98.6 F 98.1 F Pulse Rate 82 79 81 Respiratory Rate 20 18 18 Blood Pressure 142/65 H 114/60 152/70 H Pulse Oximetry 100 97 96 09/02/18 00:30 09/02/18 04:00 09/02/18 04:30 Temperature 98.4 F Pulse Rate 84 74 70 Respiratory Rate 18 Blood Pressure 140/68 Pulse Oximetry 98 09/02/18 04:49 09/02/18 06:58 09/02/18 08:00 Temperature 97.9 F Pulse Rate 69 Respiratory Rate 18 12 14 Blood Pressure 123/58 L Pulse Oximetry 96 Intake & Output 09/01/18 09/02/18 09/02/18 18:59 06:59 18:59 Intake Total 855 / 855 615 / 615 490 / 490 Output Total 1900 / 1900 3750 / 3750 650 / 650 Balance -1045 / -1045 -3135 / -3135 -160 / -160 Weight 95.9 kg Intake: IV 615 / 615 615 / 615 50 / 50 Zosyn 3.375 GM Premix 50 ML @ 100 / 100 100 / 100 50 / 50 100 mls/hr IV.SIG Q6H SHREYAS Rx#: [id number] Vancomycin Inj 1,500 MG In NS 515 / 515 515 / 515 Inj 500 ML @ 250 mls/hr IV.SIG Q12H SHREYAS Rx#:[id number] Oral 240 / 240 440 / 440 Output: Urine 1900 / 1900 1250 / 1250 Urine Amount (Catheter) 2500 / 2500 650 / 650 Indwelling Urethral Catheter 2500 / 2500 650 / 650 Other: Date of Last Bowel Movement 09/01/18 09/01/18 Narrative: GENERAL: NAD, A&Ox3 HEAD: Normocephalic. NECK: Supple, trachea midline. No lymphadenopathy. EYES: No scleral icterus. No injection or drainage. CARDIOVASCULAR: Regular rate and rhythm without murmurs, gallops, or rubs. RESPIRATORY: Breath sounds equal bilaterally. No accessory muscle use. GASTROINTESTINAL: Abdomen soft, non-tender, nondistended. Colostomy present. MUSCULOSKELETAL: No cyanosis, or edema. SKIN: Warm and dry. Erythema at left inguinal area. Left ankle ulcer. NEURO: No focal neurological deficits. - Urinary Catheter Management Indwelling Urethral Catheter Cath placed during this visit: yes Reason for continuing: Acute urinary retention Insertion date: 08/30/18 Insertion time: 10:00 Results - Labs CBC & Chem 7: 09/01/18 12:35 09/02/18 04:18 Laboratory Results - last 24 hr 09/01/18 09/01/18 09/01/18 12:35 12:35 14:48 WBC 10.4 RBC 3.89 L Hgb 11.4 L Hct 34.5 L MCV 88.7 MCH 29.3 MCHC 33.0 RDW 13.1 Plt Count 210 MPV 7.4 Sodium 142 Potassium 3.3 L Chloride 104 Carbon Dioxide 28.9 Anion Gap 9 BUN 10 Creatinine 0.86 Estimated GFR 88 L POC Glucose 237 H Random Glucose 308 H D Calcium 7.5 L 09/01/18 09/01/18 09/02/18 16:17 21:50 03:56 WBC RBC Hgb Hct MCV MCH MCHC RDW Plt Count MPV Sodium Potassium Chloride Carbon Dioxide Anion Gap BUN Creatinine Estimated GFR POC Glucose 206 H 191 H 220 H Random Glucose Calcium 09/02/18 09/02/18 09/02/18 04:18 07:22 11:28 WBC RBC Hgb Hct MCV MCH MCHC RDW Plt Count MPV Sodium 141 Potassium 3.7 Chloride 105 Carbon Dioxide 27.3 Anion Gap 9 BUN 11 Creatinine 0.79 Estimated GFR Greater than 89 POC Glucose 235 H 220 H Random Glucose 225 H Calcium 7.6 L Microbiology 08/28/18 13:14 Blood - Peripheral Aerobic Blood Culture - Final Corynebacterium not JK 08/28/18 13:14 Blood - Peripheral Anaerobic Blood Culture - Final No growth in 5 days 08/28/18 13:19 Blood - Peripheral Aerobic Blood Culture - Final Corynebacterium not JK 08/28/18 13:19 Blood - Peripheral Anaerobic Blood Culture - Final No growth in 5 days 08/30/18 10:00 Catheterized Urine Urine Culture - Final Rachel glabrata 09/01/18 11:18 Wound - Groin Gram Stain - Final - Procedures none Assessment and Plan - Plan 68 y.o male admitted with sepsis related to cellulitis (let vesiculo-cutaneous/ inguinal fistula) Sepsis Septic shock Resolved Continue to follow vitals closely UTI Cellulitis 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 Nystatin cream sacral/gluteal decub Continue wound care Colostomy Continue nursing management Follow clinically DVT prophylaxis SCDs Heparin (on hold for procedure)
--- NOTE | 2018-09-02 18:04 | P.DIET ---
Nutritional Evaluation Type of nutrition evaluation: follow-up Screening comments: 08/28/18 [facility] received for diet education Subjective Subjective Comments: Pt provided w/diet education for 1800ADA diet. Objective - Diagnosis Sepsis - Objective Dietitian Reviewed in Medical Record: Current diet, Curent medications, Intake & Output, Labs, Wound/DTI Diet Order: 1800ADA Oral Diet Intake Amount: Excellent 90%+ Wound Care Note: 08/31/18 WOCN noted-ostomy care Objective Comments: PMH includes: DM, osteomyelitis, resection and megacolon, s/p colostomy A1C 12.7, POC Glucose 197 Meds Include: Novolin 70/30 Feeding - Current PO Supplement Current Supplement: Glucerna Shake Current Frequency of Supplement: Three times a day Current kCals Provided by Supplement: 220 Current Protein Provided by Supplement: 10 Assessment Assessment: Nutrition visit for [facility] for Diet Education. Pt provided w/Diet Education for Consistent Carb 1800ADA diet and reading food labels. Pt receptive to diet education and had no questions during this visit. Plan for a follow-up visit for reinforcement and to answer questions as needed. Mg VALDEZ per . RD contact info provided. Recommendations: 1. Diet Education provided for Consistent Carb 1800ADA diet and reading food labels 2. Plan for a follow-up visit for reinforcement and to answer questions as needed 3. Mg VALDEZ per 4. RD contact info provided
[2018-09-03] MEDS: Insulin NovoLOG Aspart Correctional Sugar Inj SQ SCH ×5 (03:39→20:50)
[2018-09-03] MEDS: Piperacil/Tazo 3.375 GM Premix 50 ML IV.SIG SCH ×4 (05:16→21:06)
[2018-09-03] MEDS: Vancomycin Inj 1,500 MG in Sodium Chlor 0.9% Inj 500 ML IV.SIG SCH ×2 (06:27→23:15)
[2018-09-03] MEDS ORDERED: Chlorhexidine Gluconate 2% 1 Pack (2 Cloths) TOPICAL ONE (08:25)
[2018-09-03] MEDS ORDERED: Metoprolol Tartrate 25 MG Tablet PO ONE (08:25)
[2018-09-03 08:26] LABS: Baso % (Auto) 0.5 % (0.0-2.0); Eos # (Auto) 0.3 th/mm3 (0.0-0.4); Eos % (Auto) 2.5 % (0.0-4.0); Hematocrit 36.2 % (39.0-51.0); Hemoglobin 12.3 gm/dL (13.0-17.0); Lymph # (Auto) 1.7 th/mm3 (1.0-4.8); Lymph % (Auto) 17.1 % (9.0-44.0); Mean Corpuscular HGB Conc 33.9 % (32.0-36.0); Mean Corpuscular Hemoglobin 29.6 pg (27.0-34.0); Mean Corpuscular Volume 87.5 fL (80.0-100.0); Mean Platelet Volume 7.4 fL (7.0-11.0); Mono # (Auto) 0.9 th/mm3 (0.0-0.9); Mono % (Auto) 8.7 % (0.0-8.0); Neut # (Auto) 7.1 th/mm3 (1.8-7.7); Neut % (Auto) 71.2 % (16.0-70.0); Platelet Count 238 th/mm3 (150-450); Red Blood Count 4.14 mil/mm3 (4.50-5.90); Red Cell Distribution Width 13.1 % (11.6-17.2); White Blood Count 9.9 th/mm3 (4.0-11.0)
[2018-09-03] MEDS ORDERED: Sodium Chlor 0.9% Inj 500 ML IV.SIG SCH (09:00)
[2018-09-03] MEDS: Senna/Docusate Sodium 8.6/50 MG Tablet PO SCH ×2 (09:01→20:46)
[2018-09-03] MEDS: Collagenase Oint 30 GM Tube TOPICAL SCH (09:02)
[2018-09-03 09:10] LABS: Alanine Aminotransferase 28 U/L (12-78); Albumin 2.1 g/dL (3.4-5.0); Anion Gap 8 meq/L (5-15); Aspartate Aminotransferase 21 U/L (15-37); Blood Urea Nitrogen 12 mg/dL (7-18); Calcium 8.4 mg/dL (8.5-10.1); Carbon Dioxide 30.2 meq/L (21.0-32.0); Chloride 101 meq/L (98-107); Glomerular Filtration Rate Greater Than 89 mL/min (>89); Glucose,Random 239 mg/dL (74-106); Potassium 3.5 meq/L (3.5-5.1); Sodium 139 meq/L (136-145)
[2018-09-03 09:16] LABS: Alkaline Phosphatase 75 U/L (45-117); Total Protein 6.8 g/dL (6.4-8.2)
--- NOTE | 2018-09-03 13:52 | P.PNIM ---
Subjective Interval history: Patient will go to the OR today. She had left hand infiltrate. No other complaints. Groin cellulitis has improved since time of admit. Physical Exam Vital signs: Vital Signs 09/02/18 16:00 09/02/18 20:00 09/03/18 00:00 Temperature 98.4 F 97.8 F 97.5 F L Pulse Rate 77 78 71 Respiratory Rate 16 20 20 Blood Pressure 134/65 112/59 L Pulse Oximetry 96 97 94 L 09/03/18 04:00 09/03/18 07:00 09/03/18 08:00 Temperature 98.2 F 98 F Pulse Rate 66 65 Respiratory Rate 18 12 18 Blood Pressure 153/75 H 123/66 Pulse Oximetry 91 L 97 09/03/18 09:42 09/03/18 12:00 Temperature 98.1 F Pulse Rate 64 69 Respiratory Rate 18 Blood Pressure 124/62 Pulse Oximetry 97 Intake & Output 09/02/18 09/03/18 09/03/18 18:59 06:59 18:59 Intake Total 1495 / 1495 1080 / 1080 565 / 565 Output Total 3000 / 3000 2900 / 2900 1350 / 1350 Balance -1505 / -1505 -1820 / -1820 -785 / -785 Weight 95.8 kg Intake: IV 615 / 615 100 / 100 565 / 565 Zosyn 3.375 GM Premix 50 ML @ 100 / 100 100 / 100 50 / 50 100 mls/hr IV.SIG Q6H SHREYAS Rx#: [id number] Vancomycin Inj 1,500 MG In NS 515 / 515 515 / 515 Inj 500 ML @ 250 mls/hr IV.SIG Q18H SHREYAS Rx#:[id number] Oral 880 / 880 980 / 980 Output: Urine 2900 / 2900 Urine Amount (Catheter) 2400 / 2400 1350 / 1350 Indwelling Urethral Catheter 2400 / 2400 1350 / 1350 Stool Amount (Stoma) 600 / 600 Left Upper Abdomen 600 / 600 Narrative: GENERAL: NAD, A&Ox3 HEAD: Normocephalic. NECK: Supple, trachea midline. No lymphadenopathy. EYES: No scleral icterus. No injection or drainage. CARDIOVASCULAR: Regular rate and rhythm without murmurs, gallops, or rubs. RESPIRATORY: Breath sounds equal bilaterally. No accessory muscle use. GASTROINTESTINAL: Abdomen soft, non-tender, nondistended. Colostomy present. MUSCULOSKELETAL: No cyanosis, edema at left hand. SKIN: Warm and dry. Erythema at left inguinal area is improving. Left ankle ulcer. NEURO: No focal neurological deficits. - Urinary Catheter Management Indwelling Urethral Catheter Cath placed during this visit: yes Reason for continuing: Other continuation reason Insertion date: 08/30/18 Insertion time: 10:00 Results - Labs CBC & Chem 7: 09/03/18 07:39 09/03/18 07:39 Laboratory Results - last 24 hr 09/02/18 09/02/18 09/03/18 16:37 20:30 03:21 WBC RBC Hgb Hct MCV MCH MCHC RDW Plt Count MPV Neut % (Auto) Lymph % (Auto) Callahan % (Auto) Eos % (Auto) Baso % (Auto) Neut # (Auto) Lymph # (Auto) Callahan # (Auto) Eos # (Auto) Baso # (Auto) WBC Differential Differential Comment Sodium Potassium Chloride Carbon Dioxide Anion Gap BUN Creatinine Estimated GFR POC Glucose 197 H 242 H 242 H Random Glucose Calcium Total Bilirubin AST ALT Alkaline Phosphatase Total Protein Albumin 09/03/18 09/03/18 09/03/18 07:39 07:39 09:06 WBC 9.9 RBC 4.14 L Hgb 12.3 L Hct 36.2 L MCV 87.5 MCH 29.6 MCHC 33.9 RDW 13.1 Plt Count 238 MPV 7.4 Neut % (Auto) 71.2 H Lymph % (Auto) 17.1 Callahan % (Auto) 8.7 H Eos % (Auto) 2.5 Baso % (Auto) 0.5 Neut # (Auto) 7.1 Lymph # (Auto) 1.7 Callahan # (Auto) 0.9 Eos # (Auto) 0.3 Baso # (Auto) 0.0 WBC Differential . Differential Comment Auto diff final Sodium 139 Potassium 3.5 Chloride 101 Carbon Dioxide 30.2 Anion Gap 8 BUN 12 Creatinine 0.85 Estimated GFR Greater than 89 POC Glucose 258 H Random Glucose 239 H Calcium 8.4 L D Total Bilirubin 0.3 AST 21 ALT 28 Alkaline Phosphatase 75 Total Protein 6.8 D Albumin 2.1 L 09/03/18 11:18 WBC RBC Hgb Hct MCV MCH MCHC RDW Plt Count MPV Neut % (Auto) Lymph % (Auto) Callahan % (Auto) Eos % (Auto) Baso % (Auto) Neut # (Auto) Lymph # (Auto) Callahan # (Auto) Eos # (Auto) Baso # (Auto) WBC Differential Differential Comment Sodium Potassium Chloride Carbon Dioxide Anion Gap BUN Creatinine Estimated GFR POC Glucose 181 H Random Glucose Calcium Total Bilirubin AST ALT Alkaline Phosphatase Total Protein Albumin Microbiology 09/01/18 11:18 Wound - Groin Gram Stain - Final 09/01/18 11:18 Wound - Groin Wound Culture - Preliminary Yeast - ID to follow 08/28/18 13:14 Blood - Peripheral Aerobic Blood Culture - Final Corynebacterium not JK 08/28/18 13:14 Blood - Peripheral Anaerobic Blood Culture - Final No growth in 5 days 08/28/18 13:19 Blood - Peripheral Aerobic Blood Culture - Final Corynebacterium not JK 08/28/18 13:19 Blood - Peripheral Anaerobic Blood Culture - Final No growth in 5 days 08/30/18 10:00 Catheterized Urine Urine Culture - Final Rachel glabrata - Procedures none Assessment and Plan - Plan 68 y.o male admitted with sepsis related to cellulitis (let vesiculo-cutaneous/ inguinal fistula) Improved cellulitis with antibiotics. Patient to the OR with urology today. Cool compresses for left hand infiltrate of IV. 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 Nystatin cream sacral/gluteal decub Continue wound care Colostomy Continue nursing management Follow clinically DVT prophylaxis SCDs Heparin (on hold for procedure)
[2018-09-03] MEDS ORDERED: Phenylephrine/NS 1000 MCG/10ML Syringe IV.PUSH ONE (14:50)
[2018-09-03] MEDS ORDERED: Lidocaine PF 1% Inj 5 ML Syringe OTHER ONE (14:50)
--- NOTE | 2018-09-03 16:13 | P.OP ---
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 The patient has been on IV antibiotics for almost a week and a Ellis catheter was placed shortly after admission. CT scan demonstrated fluid with gas in the left inguinal region which tracked along the scrotum and perineal area. Decision made to bring the patient to the operating room to undergo cystogram with cystoscopy and possible placement of suprapubic tube and irrigation of wound site. Patient was brought to the operating identified by myself as Sang Donahue. He was placed on the operating table in the supine position, prepped and draped in usual sterile fashion, received preprocedure antibiotics and general LMA anesthesia was administered. A cystogram was performed by placing approximately 300 cc with into the Ellis catheter into the bladder. No extravasation of contrast was identified on cystogram. With the bladder still full, the catheter was removed. Using my right hand to place pressure on the bladder, contrast entered the urethra. Contrast was noted to extravasate out near the prostatic urethra into the left perineal/groin region. This is the same region in which the wound was identified on admission. 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 Flexible cystoscopy commenced and a small area in the along the left side of the prostate within the prostatic urethra noted some erythema. This appeared to be the area of the communication. The bladder was then visualized with the cystoscope and whitehead cystoscopy did not show any abnormalities. The scope was then removed. The lousy retractor was then used and placed into the bladder and it was palpable in the suprapubic region. Using the Bovie cautery, a small incision was made over the palpation area of the retractor until the retractor was brought through the skin. A 22 Uzbek Ellis catheter was inserted directly into the bladder using the retractor. 20 cc of sterile water were inflated into the balloon. The cystoscope was then utilized to confirm correct placement of the suprapubic tube. The scope was then removed. Irrigation with peroxide and Betadine was used to irrigate the small opening in the left groin region and then packing was placed into this area. Fluffs and a scrotal support were applied. Decision was made not to place a Ellis at this time. The patient was awoken and extubated and transferred to the recovery room in stable condition. He tolerated the procedure well.
[2018-09-03] MEDS ORDERED: fentaNYL Citrate Inj 100 MCG/2 ML Ampul ONE (16:21)
--- NOTE | 2018-09-03 16:39 | FL ---
EXAM DATE: 09/03/2018 12:00 AM EDT AGE/SEX: 68 years / Male INDICATIONS: Bladder leakage CLINICAL DATA: This is the patient's initial encounter. Patient reports that signs and symptoms have been present for 4 - 6 days and indicates a pain score of Nonresponsive. MEDICAL/SURGICAL HISTORY: . Diabetes. Atrial Fib . Left side pelvic fistula . Colon resection , Colostomy. COMPARISON: [facility], CT ABDOMEN & PELVIS W CONTRAST, 08/29/2018. . FINDINGS: 2 coned-down fluoroscopic images of the central pelvis following injection of contrast through existi ng Ellis catheter. Bladder is small in caliber and demonstrates significant trabeculations. There is reflux of contrast noted in a prominent right distal ureter. CONCLUSION: 1. Small size bladder with significant trabeculations consistent with chronic bladder outlet obstruc tion 2. Reflux of contrast into an enlarged distal right ureter. Electronically signed by: Sudhir Velez MD 09/03/2018 4:38 PM EDT
[2018-09-03] MEDS ORDERED: Sodium Chloride 0.9% 2 ML Flush PRN IV.FLUSH (17:03)
[2018-09-03] MEDS: Sodium Chloride 0.9% 2 ML Flush BID IV.FLUSH SCH (20:55)
[2018-09-04] MEDS: Insulin NovoLOG Aspart Correctional Sugar Inj SQ SCH ×5 (02:35→20:42)
[2018-09-04] MEDS: Piperacil/Tazo 3.375 GM Premix 50 ML IV.SIG SCH ×4 (04:10→23:06)
[2018-09-04 07:10] LABS: Baso # (Auto) 0.1 th/mm3 (0.0-0.2); Baso % (Auto) 0.7 % (0.0-2.0); Eos # (Auto) 0.3 th/mm3 (0.0-0.4); Eos % (Auto) 2.2 % (0.0-4.0); Hematocrit 34.9 % (39.0-51.0); Hemoglobin 11.6 gm/dL (13.0-17.0); Lymph # (Auto) 1.9 th/mm3 (1.0-4.8); Lymph % (Auto) 15.8 % (9.0-44.0); Mean Corpuscular HGB Conc 33.3 % (32.0-36.0); Mean Corpuscular Volume 87.3 fL (80.0-100.0); Mono # (Auto) 1.2 th/mm3 (0.0-0.9); Mono % (Auto) 9.6 % (0.0-8.0); Neut # (Auto) 8.6 th/mm3 (1.8-7.7); Neut % (Auto) 71.7 % (16.0-70.0); Platelet Count 256 th/mm3 (150-450); Red Cell Distribution Width 13.2 % (11.6-17.2)
[2018-09-04 07:41] LABS: Anion Gap 7 meq/L (5-15); Aspartate Aminotransferase 20 U/L (15-37); Blood Urea Nitrogen 11 mg/dL (7-18); Calcium 8.2 mg/dL (8.5-10.1); Carbon Dioxide 30.2 meq/L (21.0-32.0); Chloride 102 meq/L (98-107); Glomerular Filtration Rate Greater Than 89 mL/min (>89); Glucose,Random 146 mg/dL (74-106); Potassium 3.6 meq/L (3.5-5.1); Sodium 139 meq/L (136-145)
[2018-09-04 07:42] LABS: Alanine Aminotransferase 24 U/L (12-78)
[2018-09-04 07:44] LABS: Alkaline Phosphatase 67 U/L (45-117); Total Protein 6.5 g/dL (6.4-8.2)
--- NOTE | 2018-09-04 08:44 | P.PNURO ---
Subjective Patient symptoms today: Pt seen and examined. Feels well. POD#1 Objective Vital Signs: Vital Signs 09/03/18 09:42 09/03/18 12:00 09/03/18 16:15 Temperature 98.1 F 97.7 F Pulse Rate 64 74 64 Respiratory Rate 18 20 Blood Pressure 124/62 106/56 L Pulse Oximetry 97 98 09/03/18 16:30 09/03/18 16:55 09/03/18 20:00 Temperature 98.0 F 98.7 F Pulse Rate 66 64 75 Respiratory Rate 18 18 18 Blood Pressure 110/57 L 117/57 L 109/52 L Pulse Oximetry 96 96 95 09/04/18 00:00 09/04/18 04:00 Temperature 98.4 F 97.8 F Pulse Rate 82 67 Respiratory Rate 14 20 Blood Pressure 143/99 H 150/70 H Pulse Oximetry 95 98 Intake & Output 09/03/18 09/04/18 09/04/18 18:59 06:59 18:59 Intake Total 1215 / 1215 815 / 815 Output Total 1760 / 1760 3000 / 3000 Balance -545 / -545 -2185 / -2185 Weight 91.8 kg Intake: IV 615 / 615 815 / 815 Diflucan 400 mg Premix Bag 200 200 / 200 ML @ 100 mls/hr IV.SIG Q24H SHREYAS Rx#:[id number] Zosyn 3.375 GM Premix 50 ML @ 100 / 100 100 / 100 100 mls/hr IV.SIG Q6H SHREYAS Rx#: [id number] Vancomycin Inj 1,500 MG In NS 515 / 515 515 / 515 Inj 500 ML @ 250 mls/hr IV.SIG Q18H SHREYAS Rx#:[id number] Anesthesia Amount 600 / 600 Output: Urine 3000 / 3000 Estimated Blood Loss 10 Urine Amount (Catheter) 1750 / 1750 Indwelling Urethral Catheter 1350 / 1350 Suprapubic 400 / 400 Result Diagrams: 09/04/18 06:44 09/04/18 06:44 Imaging: Impressions Cystogram 09/03/18 00:00 CONCLUSION: 1. Small size bladder with significant trabeculations consistent with chronic bladder outlet obstruction 2. Reflux of contrast into an enlarged distal right ureter. Medications and IVs: Active Medications Generic Name Dose Route Start Last Admin Trade Name Freq PRN Reason Stop Dose Admin Acetaminophen 650 mg 08/28/18 15:32 08/29/18 04:19 Tylenol PO 650 mg Q4H PRN Administration Temp > 100.4 Bisacodyl 10 mg 08/28/18 15:32 Dulcolax Supp RECTAL DAILY PRN SEVERE CONSITIPATION Collagenase 1 applicatio 08/30/18 09:00 09/03/18 09:02 Santyl Oint TOPICAL 1 applicatio DAILY SHREYAS Administration Dextrose 50 ml 08/28/18 15:28 D50w Vial IV.PUSH UNSCH PRN PER HYPOGLYCEMIA PROTOCOL Glucagon 1 mg 08/28/18 15:28 Glucagon Inj OTHER PRN PRN for Hypoglycemia Protocol Piperacillin/Tazobactam/Dextrose 50 mls @ 100 mls/hr 08/28/18 22:00 09/04/18 05:06 Zosyn 3.375 Gm Premix IV.SIG Infused Q6H SHREYAS Infusion Norepinephrine Bitartrate 4 mg in 250 mls @ 7.5 mls/hr 08/29/18 06:19 12:15 Levophed-Dextrose 4 Mg/250 Ml Drip IV.SIG 0 mcg/min TITRATE PRN 0 mls/hr Per Protocol Titration Protocol 2 MCG/MIN Vancomycin HCl 1,500 mg/ 515 mls @ 250 mls/hr 09/03/18 06:00 09/04/18 01:16 Sodium Chloride IV.SIG Infused Q18H SHREYAS Infusion Sodium Chloride 500 mls @ 30 mls/hr 09/03/18 09:00 09/03/18 09:00 Ns Inj IV.SIG Not Given .Q10H SHREYAS Fluconazole 200 mls @ 100 mls/hr 09/03/18 18:00 09/03/18 20:37 Diflucan 400 Mg Premix Bag IV.SIG Infused Q24H SHREYAS Infusion Insulin Aspart 0 unit 08/28/18 17:00 09/04/18 02:35 Novolog Insulin Correctional Sugar Inj SQ Not Given ACHS AND 3AM [facility] Protocol Insulin Human Isoph/Insulin Regular 14 units 09/02/18 09:10 09/03/18 17:46 Novolin 70/30 Inj SQ 14 units BID@0800,1700 SHREYAS Administration Lactulose 30 ml 08/28/18 15:32 Lactulose Liq PO DAILY PRN SEVERE CONSITIPATION Miscellaneous Information 0 each 10/13/18 11:45 [facility] [place] [facility] Ordered Lab Info OTHER 09/05/18 11:46 ONCE ONE Miscellaneous Information 1 each 09/03/18 17:02 [facility] [place] Nursing Information OTHER 09/04/18 17:02 UNSCH PRN SEE LABEL COMMENTS Nystatin 1 applicatio 08/28/18 18:00 09/03/18 20:51 Mycostatin Cream TOPICAL 1 applicatio QID SHREYAS Administration Ondansetron HCl 4 mg 08/28/18 15:32 Zofran Inj IV.PUSH Q6H PRN NAUSEA OR VOMITING Pharmacy Profile Note 1 each 08/28/18 15:28 Vancomycin Consult Pharmacy OTHER UNSCH PRN Pharmacy to dose Senna/Docusate Sodium 1 tab 08/28/18 21:00 09/03/18 20:46 Diane-Colace PO Not Given BID SHREYAS Sennosides 17.2 mg 08/28/18 15:32 Senokot PO Q12H PRN Moderate Constipation Sodium Chloride 2 ml 09/03/18 21:00 09/03/18 20:55 Ns Flush IV.FLUSH 2 ml BID SHREYAS Administration Sodium Chloride 2 ml 09/03/18 17:03 Ns Flush IV.FLUSH PRN PRN FLUSH AFTER USING IV ACCESS Terbutaline Sulfate 1 mg 08/29/18 06:19 Brethine Inj SQ UNSCH PRN For Extravasation Objective Remarks: Abd:soft,nt,nd Lainez in place Right groin area with small drainage for now. 08/31 Abd:soft,nt,nd Left inquinal cellulitis noted which is improving. Crepitus noted. No signs of gangreen Lainez now with clear urine. Pt reports no drainage from left groin site 09/01 Abd:soft,nt,nd. Crepitus not palpated today. Lainez with clear urine. Purulent drainage from wound site. 09/02 Abd:soft,nt,nd. Crepitus not palpated today. Lainez with clear urine. Purulent drainage from wound site. 09/04 Abd:soft,nt,nd Packing in place with drainage SP tube draining clear urine Assessment and Plan - Plan 68 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 Once infection clears with need cystoscopy. May need SP tube placement in future. Will leave lainez for now. Air noted in SQ tissue over lower abdomen. WBC count is improving. Continue to monitor clinically. Hopefully urine drainage from left groin will stop after lainez has been placed. Will monitor. Continue IV abx for now. B/C positive: gram + Repeat UCx pending Will follow. 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 No drainage noted since placement of lainez catheter Continue IV abx per ID recommendations Continue present care. 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 No drainage noted since placement of lainez catheter Continue IV abx per ID recommendations Possible OR on for cystoscopy/cystogram and SP tube insertion NPO after MN Hold Heparin 09/03 09/02 68 y.o male with evidence of urethral cutaneous fistula on cystogram/ urethragram. Continue IV abx per ID recommendations Change packing daily
[2018-09-04] MEDS ORDERED: Iohexol Inj 350 MG/ML 100 ML Bottle (for RAD Diag) IVCONTRAST ONE (10:21)
[2018-09-04] MEDS: Senna/Docusate Sodium 8.6/50 MG Tablet PO SCH ×2 (10:24→20:41)
[2018-09-04] MEDS: Sodium Chloride 0.9% 2 ML Flush BID IV.FLUSH SCH ×2 (10:25→20:42)
--- NOTE | 2018-09-04 10:36 | P.PNIM ---
Subjective Interval history: Gradually improving. Suprapubic catheter placed yesterday. Patient doing well postop. Left hand swelling status post IV infiltrate is improving. Physical Exam Vital signs: Vital Signs 09/03/18 12:00 09/03/18 16:15 09/03/18 16:30 Temperature 98.1 F 97.7 F Pulse Rate 74 64 66 Respiratory Rate 18 20 18 Blood Pressure 124/62 106/56 L 110/57 L Pulse Oximetry 97 98 96 09/03/18 16:55 09/03/18 20:00 09/04/18 00:00 Temperature 98.0 F 98.7 F 98.4 F Pulse Rate 64 75 82 Respiratory Rate 18 18 14 Blood Pressure 117/57 L 109/52 L 143/99 H Pulse Oximetry 96 95 95 09/04/18 04:00 09/04/18 08:00 Temperature 97.8 F 98.7 F Pulse Rate 67 74 Respiratory Rate 20 18 Blood Pressure 150/70 H 114/61 Pulse Oximetry 98 95 Intake & Output 09/03/18 09/04/18 09/04/18 18:59 06:59 18:59 Intake Total 1215 / 1215 815 / 815 Output Total 1760 / 1760 3000 / 3000 Balance -545 / -545 -2185 / -2185 Weight 91.8 kg Intake: IV 615 / 615 815 / 815 Diflucan 400 mg Premix Bag 200 200 / 200 ML @ 100 mls/hr IV.SIG Q24H SHREYAS Rx#:[id number] Zosyn 3.375 GM Premix 50 ML @ 100 / 100 100 / 100 100 mls/hr IV.SIG Q6H SHREYAS Rx#: [id number] Vancomycin Inj 1,500 MG In NS 515 / 515 515 / 515 Inj 500 ML @ 250 mls/hr IV.SIG Q18H SHREYAS Rx#:[id number] Anesthesia Amount 600 / 600 Output: Urine 3000 / 3000 Estimated Blood Loss 10 Urine Amount (Catheter) 1750 / 1750 Indwelling Urethral Catheter 1350 / 1350 Suprapubic 400 / 400 Other: Date of Last Bowel Movement 09/04/18 Narrative: GENERAL: NAD, A&Ox3 HEAD: Normocephalic. NECK: Supple, trachea midline. No lymphadenopathy. EYES: No scleral icterus. No injection or drainage. CARDIOVASCULAR: Regular rate and rhythm without murmurs, gallops, or rubs. RESPIRATORY: Breath sounds equal bilaterally. No accessory muscle use. GASTROINTESTINAL: Abdomen soft, non-tender, nondistended. Colostomy present. MUSCULOSKELETAL: No cyanosis, no edema. SKIN: Warm and dry. Erythema at left inguinal area is improving. Left ankle ulcer. NEURO: No focal neurological deficits. - Urinary Catheter Management Indwelling Urethral Catheter Cath placed during this visit: yes, but has since been removed by the nurse Reason for continuing: Chronic Urinary Retention Insertion date: 08/30/18 Insertion time: 10:00 Removal date: 09/03/18 Removal time: 16:00 Suprapubic Cath placed during this visit: yes Reason for continuing: Acute urinary retention Insertion date: 09/03/18 Results - Labs CBC & Chem 7: 09/04/18 06:44 09/04/18 06:44 Laboratory Results - last 24 hr 09/03/18 09/03/18 09/03/18 11:18 17:22 20:43 WBC RBC Hgb Hct MCV MCH MCHC RDW Plt Count MPV Neut % (Auto) Lymph % (Auto) Menard % (Auto) Eos % (Auto) Baso % (Auto) Neut # (Auto) Lymph # (Auto) Menard # (Auto) Eos # (Auto) Baso # (Auto) WBC Differential Differential Comment Sodium Potassium Chloride Carbon Dioxide Anion Gap BUN Creatinine Estimated GFR POC Glucose 181 H 180 H 197 H Random Glucose Calcium Total Bilirubin AST ALT Alkaline Phosphatase Total Protein Albumin 09/04/18 09/04/18 09/04/18 02:34 06:44 06:44 WBC 12.0 H RBC 4.00 L Hgb 11.6 L Hct 34.9 L MCV 87.3 MCH 29.0 MCHC 33.3 RDW 13.2 Plt Count 256 MPV 7.0 Neut % (Auto) 71.7 H Lymph % (Auto) 15.8 Menard % (Auto) 9.6 H Eos % (Auto) 2.2 Baso % (Auto) 0.7 Neut # (Auto) 8.6 H Lymph # (Auto) 1.9 Menard # (Auto) 1.2 H Eos # (Auto) 0.3 Baso # (Auto) 0.1 WBC Differential . Differential Comment Auto diff final Sodium 139 Potassium 3.6 Chloride 102 Carbon Dioxide 30.2 Anion Gap 7 BUN 11 Creatinine 0.83 Estimated GFR Greater than 89 POC Glucose 141 H Random Glucose 146 H Calcium 8.2 L Total Bilirubin 0.3 AST 20 ALT 24 Alkaline Phosphatase 67 Total Protein 6.5 Albumin 2.0 L 09/04/18 08:41 WBC RBC Hgb Hct MCV MCH MCHC RDW Plt Count MPV Neut % (Auto) Lymph % (Auto) Menard % (Auto) Eos % (Auto) Baso % (Auto) Neut # (Auto) Lymph # (Auto) Menard # (Auto) Eos # (Auto) Baso # (Auto) WBC Differential Differential Comment Sodium Potassium Chloride Carbon Dioxide Anion Gap BUN Creatinine Estimated GFR POC Glucose 149 H Random Glucose Calcium Total Bilirubin AST ALT Alkaline Phosphatase Total Protein Albumin Microbiology 09/01/18 11:18 Wound - Groin Gram Stain - Final 09/01/18 11:18 Wound - Groin Wound Culture - Final Rachel glabrata - Imaging Impressions Cystogram 09/03/18 00:00 CONCLUSION: 1. Small size bladder with significant trabeculations consistent with chronic bladder outlet obstruction 2. Reflux of contrast into an enlarged distal right ureter. - Procedures none Assessment and Plan - Plan 68 y.o male admitted with sepsis related to cellulitis (let vesiculo-cutaneous/ inguinal fistula) Improved cellulitis with antibiotics. Patient to the OR yesterday for suprapubic catheter placement. Patient doing well postop. Left hand IV infiltrate resolved. 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 Nystatin cream sacral/gluteal decub Continue wound care Colostomy Continue nursing management Follow clinically DVT prophylaxis SCDs Heparin (on hold for procedure)
[2018-09-04] MEDS: Collagenase Oint 30 GM Tube TOPICAL SCH (16:02)
[2018-09-04] MEDS: Vancomycin Inj 1,500 MG in Sodium Chlor 0.9% Inj 500 ML IV.SIG SCH (18:50)
[2018-09-05] MEDS: Insulin NovoLOG Aspart Correctional Sugar Inj SQ SCH ×5 (03:53→20:47)
[2018-09-05] MEDS: Piperacil/Tazo 3.375 GM Premix 50 ML IV.SIG SCH ×4 (03:53→22:38)
[2018-09-05] MEDS: Senna/Docusate Sodium 8.6/50 MG Tablet PO SCH ×2 (08:04→20:51)
[2018-09-05] MEDS: Sodium Chloride 0.9% 2 ML Flush BID IV.FLUSH SCH ×2 (08:05→20:51)
[2018-09-05] MEDS: Collagenase Oint 30 GM Tube TOPICAL SCH (08:05)
--- NOTE | 2018-09-05 11:11 | P.PNIM ---
Subjective Interval history: Patient recovering well thus far. Continue monitoring of the wound ongoing. Cultures monitoring ongoing. Physical Exam Vital signs: Vital Signs 09/04/18 12:00 09/04/18 16:00 09/04/18 20:00 Temperature 99.3 F 99.4 F 98.8 F Pulse Rate 73 79 71 Respiratory Rate 20 18 18 Blood Pressure 132/63 132/67 118/61 Pulse Oximetry 98 97 96 09/04/18 23:06 09/05/18 00:00 09/05/18 04:00 Temperature 97.6 F 97.7 F Pulse Rate 74 70 Respiratory Rate 18 18 18 Blood Pressure 138/61 136/62 Pulse Oximetry 97 99 09/05/18 07:00 09/05/18 08:00 Temperature 98.4 F Pulse Rate 65 Respiratory Rate 12 18 Blood Pressure 134/66 Pulse Oximetry 96 Intake & Output 09/04/18 09/05/18 09/05/18 18:59 06:59 18:59 Intake Total 100 / 100 1815 / 1815 500 / 500 Output Total 1999 / 1999 3350 / 3350 300 / 300 Balance -1900 / -1900 -1535 / -1535 200 / 200 Weight 93.4 kg Intake: IV 100 / 100 815 / 815 50 / 50 Diflucan 400 mg Premix Bag 200 200 / 200 ML @ 100 mls/hr IV.SIG Q24H SHREYAS Rx#:[id number] Zosyn 3.375 GM Premix 50 ML @ 100 / 100 100 / 100 50 / 50 100 mls/hr IV.SIG Q6H SHREYAS Rx#: [id number] Vancomycin Inj 1,500 MG In NS 515 / 515 Inj 500 ML @ 250 mls/hr IV.SIG Q18H SHREYAS Rx#:[id number] Oral 1000 / 1000 450 / 450 Output: Urine 1999 / 1999 850 / 850 300 / 300 Urine Amount (Catheter) 2500 / 2500 Suprapubic 2500 / 2500 Other: Date of Last Bowel Movement 09/04/18 09/04/18 Narrative: GENERAL: NAD, A&Ox3 HEAD: Normocephalic. NECK: Supple, trachea midline. No lymphadenopathy. EYES: No scleral icterus. No injection or drainage. CARDIOVASCULAR: Regular rate and rhythm without murmurs, gallops, or rubs. RESPIRATORY: Breath sounds equal bilaterally. No accessory muscle use. GASTROINTESTINAL: Abdomen soft, non-tender, nondistended. Colostomy present. MUSCULOSKELETAL: No cyanosis, no edema. SKIN: Warm and dry. Erythema at left inguinal area is improving. Left ankle ulcer. NEURO: No focal neurological deficits. - Urinary Catheter Management Indwelling Urethral Catheter Cath placed during this visit: yes, but has since been removed by the nurse Reason for continuing: Chronic Urinary Retention Insertion date: 08/30/18 Insertion time: 10:00 Removal date: 09/03/18 Removal time: 16:00 Suprapubic Cath placed during this visit: yes Reason for continuing: Acute urinary retention Insertion date: 09/03/18 Results - Labs CBC & Chem 7: 09/04/18 06:44 09/04/18 06:44 Laboratory Results - last 24 hr 09/04/18 09/04/18 09/04/18 13:50 18:49 20:32 POC Glucose 227 H 204 H 177 H 09/05/18 09/05/18 03:12 07:36 POC Glucose 116 H 131 H - Procedures none Assessment and Plan - Plan 68 y.o male admitted with sepsis related to cellulitis (let vesiculo-cutaneous/ inguinal fistula) Improved cellulitis with antibiotics. Patient to the OR 09/03/2018 for suprapubic catheter placement. Patient doing well postop. Urology and ID following. 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 Nystatin cream sacral/gluteal decub Continue wound care Colostomy Continue nursing management Follow clinically DVT prophylaxis SCDs Heparin (on hold for procedure) Discharge planning Pending urology clearance Pending ID clearance Patient does not want a residential facility
[2018-09-05] MEDS: Vancomycin Inj 1,500 MG in Sodium Chlor 0.9% Inj 500 ML IV.SIG SCH (11:39)
[2018-09-05] MEDS ORDERED: Pharmacy Ordered Lab Info OTHER ONE (11:45)
--- NOTE | 2018-09-05 13:12 | P.PNPOD ---
Subjective Interval history: Patient seen bedside resting comfortably. States he had surgery yesterday. No concerns at this time. No questions or concerns about bilateral lower extremity. He states he has no pain to his feet. Physical Exam Vital signs: Vital Signs 09/04/18 16:00 09/04/18 20:00 09/04/18 23:06 Temperature 99.4 F 98.8 F Pulse Rate 79 71 Respiratory Rate 18 18 18 Blood Pressure 132/67 118/61 Pulse Oximetry 97 96 09/05/18 00:00 09/05/18 04:00 09/05/18 07:00 Temperature 97.6 F 97.7 F Pulse Rate 74 70 Respiratory Rate 18 18 12 Blood Pressure 138/61 136/62 Pulse Oximetry 97 99 09/05/18 08:00 09/05/18 12:00 Temperature 98.4 F 98.4 F Pulse Rate 65 73 Respiratory Rate 18 20 Blood Pressure 134/66 130/61 Pulse Oximetry 96 96 Intake & Output 09/04/18 09/05/18 09/05/18 18:59 06:59 18:59 Intake Total 100 / 100 1815 / 1815 740 / 740 Output Total 1999 / 1999 3350 / 3350 1700 / 1700 Balance -1900 / -1900 -1535 / -1535 -960 / -960 Weight 93.4 kg Intake: IV 100 / 100 815 / 815 50 / 50 Diflucan 400 mg Premix Bag 200 200 / 200 ML @ 100 mls/hr IV.SIG Q24H [facility] Rx#:[id number] Zosyn 3.375 GM Premix 50 ML @ 100 / 100 100 / 100 50 / 50 100 mls/hr IV.SIG Q6H [facility] Rx#: [id number] Vancomycin Inj 1,500 MG In NS 515 / 515 Inj 500 ML @ 250 mls/hr IV.SIG Q18H [facility] Rx#:[id number] Oral 1000 / 1000 690 / 690 Output: Urine 1999 850 / 850 1700 / 1700 Urine Amount (Catheter) 2500 / 2500 Suprapubic 2500 / 2500 Other: Date of Last Bowel Movement 09/04/18 09/04/18 Narrative: Lower extremity physical exam: Vascular: Dorsalis pedis palpable, posterior tibial 2/4. Capillary refill time within normal limits to digits X5 bilateral foot. Edema not present to bilateral foot and ankle. Neuro: Gross sensation intact to bilateral lower extremity. Pinpoint sensation decreased. No hyperalgesia noted to bilateral lower extremity Dermatology: Left lateral ankle ulceration with fibrogranular base and mild hyperkeratotic borders. Improvement noted to left lateral ulceration. Musculoskeletal: Tender to palpation to left lateral ankle. Medications and Allergies Active Medications: Active Medications Acetaminophen (Tylenol) 650 mg PO Q4H PRN PRN Reason: Temp > 100.4 Last Admin: 08/29/18 04:19 Dose: 650 mg Bisacodyl (Dulcolax Supp) 10 mg RECTAL DAILY PRN PRN Reason: SEVERE CONSITIPATION Collagenase (Santyl Oint) 1 applicatio TOPICAL DAILY [facility] Last Admin: 09/05/18 08:05 Dose: 1 applicatio Dextrose (D50w Vial) 50 ml IV.PUSH UNSCH PRN PRN Reason: PER HYPOGLYCEMIA PROTOCOL Glucagon (Glucagon Inj) 1 mg OTHER PRN PRN PRN Reason: for Hypoglycemia Protocol Piperacillin/Tazobactam/Dextrose (Zosyn 3.375 Gm Premix) 50 mls @ 100 mls/hr IV.SIG Q6H [facility] Last Infusion: 09/05/18 09:49 Dose: Infused Norepinephrine Bitartrate (Levophed-Dextrose 4 Mg/250 Ml Drip) 4 mg in 250 mls @ 7.5 mls/hr IV.SIG TITRATE PRN; Protocol PRN Reason: Per Protocol Last Titration: 08/29/18 12:15 Dose: 0 mcg/min, 0 mls/hr Vancomycin HCl 1,500 mg/ (Sodium Chloride) 515 mls @ 250 mls/hr IV.SIG Q18H [facility] Last Admin: 09/05/18 11:39 Dose: 250 mls/hr Sodium Chloride (Ns Inj) 500 mls @ 30 mls/hr IV.SIG .Q10H [facility] Last Admin: 09/03/18 09:00 Dose: Not Given Fluconazole (Diflucan 400 Mg Premix Bag) 200 mls @ 100 mls/hr IV.SIG Q24H [facility] Last Infusion: 09/04/18 23:06 Dose: Infused Insulin Aspart (Novolog Insulin Correctional Sugar Inj) 0 unit SQ ACHS AND 3AM [facility]; Protocol Last Admin: 09/05/18 11:39 Dose: 5 unit Insulin Human Isoph/Insulin Regular (Novolin 70/30 Inj) 14 units SQ BID@0800, 1700 [facility] Last Admin: 09/05/18 08:04 Dose: 14 units Lactulose (Lactulose Liq) 30 ml PO DAILY PRN PRN Reason: SEVERE CONSITIPATION Nystatin (Mycostatin Cream) 1 applicatio TOPICAL QID [facility] Last Admin: 09/05/18 12:09 Dose: 1 applicatio Ondansetron HCl (Zofran Inj) 4 mg IV.PUSH Q6H PRN PRN Reason: NAUSEA OR VOMITING Pharmacy Profile Note (Vancomycin Consult Pharmacy) 1 each OTHER UNSCH PRN PRN Reason: Pharmacy to dose Senna/Docusate Sodium (Diane-Colace) 1 tab PO BID [facility] Last Admin: 09/05/18 08:04 Dose: 1 tab Sennosides (Senokot) 17.2 mg PO Q12H PRN PRN Reason: Moderate Constipation Sodium Chloride (Ns Flush) 2 ml IV.FLUSH BID [facility] Last Admin: 09/05/18 08:05 Dose: 2 ml Sodium Chloride (Ns Flush) 2 ml IV.FLUSH PRN PRN PRN Reason: FLUSH AFTER USING IV ACCESS Terbutaline Sulfate (Brethine Inj) 1 mg SQ UNSCH PRN PRN Reason: For Extravasation Allergies Allergy/AdvReac Type Severity Reaction Status Date / Time Influenza Virus Vaccines Allergy Severe Anaphylaxis Verified 08/28/18 12:12 *MDRO Multi-Drug Resistant AdvReac Unknown Flushing Uncoded 08/28/18 12:12 Organism Home Medications Medication Instructions Recorded Confirmed Type No Known Home Medications 08/28/18 08/28/18 History Results - Labs CBC & Chem 7: 09/04/18 06:44 09/04/18 06:44 Laboratory Results - last 24 hr 09/04/18 09/04/18 09/04/18 13:50 18:49 20:32 POC Glucose 227 H 204 H 177 H Vancomycin Trough 09/05/18 09/05/18 09/05/18 03:12 07:36 10:50 POC Glucose 116 H 131 H Vancomycin Trough 20.4 H 09/05/18 11:35 POC Glucose 183 H Vancomycin Trough - Procedures none Assessment and Plan - Plan 68-year-old male with left lateral malleolar ulceration Improvement noted Continue with daily dressing changes of Santyl with dry sterile dressing Patient is to be discharged with Santyl and dressing supplies He is to follow-up in office within 1 week of discharge with myself Dr. Harper Weightbearing as tolerated left lower extremity
--- NOTE | 2018-09-05 15:52 | P.PNID ---
Subjective Remarks: afebrile blood clx with corynebacteria 2/2 C. glabrata from the fistula drainage clx sp Cystogram, flexible cystoscopy, antegrade urethrogram, placement of suprapubic tube catheter, irrigation and packing of left inguinal wound on09/03/[address] Norbert Cassidy Antibiotics: fluconazole 400 zosyn vancomycin Allergies/Adverse Reactions: Allergies Influenza Virus Vaccines Allergy (Severe, Verified 08/28/18 12:12) Anaphylaxis *MDRO Multi-Drug Resistant Organism Adverse Reaction (Unknown, Uncoded 08/28/18 12:12) Flushing 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 Objective Vital Signs 09/04/18 16:00 09/04/18 20:00 09/04/18 23:06 Temperature 99.4 F 98.8 F Pulse Rate 79 71 Respiratory Rate 18 18 18 Blood Pressure 132/67 118/61 Pulse Oximetry 97 96 09/05/18 00:00 09/05/18 04:00 09/05/18 07:00 Temperature 97.6 F 97.7 F Pulse Rate 74 70 Respiratory Rate 18 18 12 Blood Pressure 138/61 136/62 Pulse Oximetry 97 99 09/05/18 08:00 09/05/18 12:00 09/05/18 13:27 Temperature 98.4 F 98.4 F Pulse Rate 65 73 Respiratory Rate 18 20 12 Blood Pressure 134/66 130/61 Pulse Oximetry 96 96 Intake & Output 09/04/18 09/05/18 09/05/18 18:59 06:59 18:59 Intake Total 100 / 100 1815 / 1815 1255 / 1255 Output Total 1999 3350 / 3350 1700 / 1700 Balance -1900 / -1900 -1535 / -1535 -445 / -445 Weight 93.4 kg Intake: IV 100 / 100 815 / 815 565 / 565 Diflucan 400 mg Premix Bag 200 200 / 200 ML @ 100 mls/hr IV.SIG Q24H [facility] Rx#:[id number] Zosyn 3.375 GM Premix 50 ML @ 100 / 100 100 / 100 50 / 50 100 mls/hr IV.SIG Q6H [facility] Rx#: [id number] Vancomycin Inj 1,500 MG In NS 515 / 515 515 / 515 Inj 500 ML @ 250 mls/hr IV.SIG Q18H [facility] Rx#:[id number] Oral 1000 / 1000 690 / 690 Output: Urine 1999 / 1999 850 / 850 1700 / 1700 Urine Amount (Catheter) 2500 / 2500 Suprapubic 2500 / 2500 Other: Date of Last Bowel Movement 09/04/18 09/04/18 09/01/18 11:18 Wound - Groin Gram Stain - Final 09/01/18 11:18 Wound - Groin Wound Culture - Final Rachel glabrata Lab - Hematology Results 09/04/18 06:44 WBC 12.0 H RBC 4.00 L Hgb 11.6 L Hct 34.9 L MCV 87.3 MCH 29.0 MCHC 33.3 RDW 13.2 Plt Count 256 MPV 7.0 Neut % (Auto) 71.7 H Lymph % (Auto) 15.8 [place] % (Auto) 9.6 H Eos % (Auto) 2.2 Baso % (Auto) 0.7 Neut # (Auto) 8.6 H Lymph # (Auto) 1.9 [place] # (Auto) 1.2 H Eos # (Auto) 0.3 Baso # (Auto) 0.1 WBC Differential . Differential Comment Auto diff final Lab - Chemistry Results 09/03/18 09/03/18 09/04/18 17:22 20:43 02:34 Sodium Potassium Chloride Carbon Dioxide Anion Gap BUN Creatinine Estimated GFR POC Glucose 180 H 197 H 141 H Random Glucose Calcium Total Bilirubin AST ALT Alkaline Phosphatase Total Protein Albumin 09/04/18 09/04/18 09/04/18 06:44 08:41 13:50 Sodium 139 Potassium 3.6 Chloride 102 Carbon Dioxide 30.2 Anion Gap 7 BUN 11 Creatinine 0.83 Estimated GFR Greater than 89 POC Glucose 149 H 227 H Random Glucose 146 H Calcium 8.2 L Total Bilirubin 0.3 AST 20 ALT 24 Alkaline Phosphatase 67 Total Protein 6.5 Albumin 2.0 L 09/04/18 09/04/18 09/05/18 18:49 20:32 03:12 Sodium Potassium Chloride Carbon Dioxide Anion Gap BUN Creatinine Estimated GFR POC Glucose 204 H 177 H 116 H Random Glucose Calcium Total Bilirubin AST ALT Alkaline Phosphatase Total Protein Albumin 09/05/18 09/05/18 07:36 11:35 Sodium Potassium Chloride Carbon Dioxide Anion Gap BUN Creatinine Estimated GFR POC Glucose 131 H 183 H Random Glucose Calcium Total Bilirubin AST ALT Alkaline Phosphatase Total Protein Albumin Imaging: ITS Impressions Chest X-Ray 08/28/18 12:34 CONCLUSION: No acute cardiopulmonary disease. Abdomen/Pelvis CT 08/29/18 00:00 CONCLUSION: 1. Abnormal gas collection along the left inguinal region which extends out laterally into the subcutaneous fat with surrounding inflammatory change. There is an abnormal gas collection also noted along the base of the scrotum and perineum likely is continuous with this.. There is soft tissue swelling and thickening around the base of the penis. No drainable fluid collection. 2. Bladder wall thickening. 3. Small bilateral pleural effusions. 4. Mildly nonspecific bowel gas pattern most characteristic of an ileus. Ankle X-Ray 08/29/18 00:00 CONCLUSION: Chronic change as described above. Soft tissue swelling or bony destruction is not seen at the ankle. Foot X-Ray 08/29/18 09:40 CONCLUSION: Chronic change as described above. An area of acute bony destruction or acute periosteal reaction is not clearly seen on this plain film examination. Cystogram 09/03/18 00:00 CONCLUSION: 1. Small size bladder with significant trabeculations consistent with chronic bladder outlet obstruction 2. Reflux of contrast into an enlarged distal right ureter. Physical Exam: GENERAL: NAD SKIN: Warm and dry. No rash HEAD: Atraumatic. Normocephalic. EYES: Pupils equal and round. No scleral icterus. No injection or drainage. ENT: Mucous membranes pink and moist. CARDIOVASCULAR: Regular rate and rhythm. No murmurs RESPIRATORY: No accessory muscle use. Clear to auscultation. Breath sounds equal bilaterally. GASTROINTESTINAL: Abdomen soft, non-tender, nondistended. Hepatic and splenic margins not palpable. : L groin with some draiange on the dressing SP cath with clear yellow urine NO odor scrotul w/o edema, erythema MUSCULOSKELETAL: Extremities without clubbing, cyanosis, or edema. dressing in place b/l feet NEUROLOGICAL: Awake and alert. 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
[2018-09-05 16:58] LABS: Bacteria,Urine Rare /hpf; Bilirubin,Urine Negative (Negative); Clarity,Urine Hazy (Clear); Color,Urine Straw (Yellw/Straw); Glucose,Urine (UA) Negative (Negative); Leukocyte Esterase,Urine Large (Negative); Mucus,Urine Few /lpf (Occasional); Nitrite,Urine Negative (Negative); Specific Gravity,Urine 1.005 (1.002-1.035); Squamous Epithelial Cell,Urine <1 /hpf (0-5)
[2018-09-06] MEDS: Piperacil/Tazo 3.375 GM Premix 50 ML IV.SIG SCH ×4 (04:04→23:25)
[2018-09-06] MEDS: Insulin NovoLOG Aspart Correctional Sugar Inj SQ SCH ×5 (04:12→21:21)
[2018-09-06] MEDS: Senna/Docusate Sodium 8.6/50 MG Tablet PO SCH ×2 (08:31→21:21)
[2018-09-06] MEDS: Sodium Chloride 0.9% 2 ML Flush BID IV.FLUSH SCH ×2 (08:32→21:23)
[2018-09-06] MEDS: Collagenase Oint 30 GM Tube TOPICAL SCH (08:32)
--- NOTE | 2018-09-06 14:06 | P.PNIM ---
Subjective Interval history: No new complaints from the patient. No signs of sepsis. No fevers overnight. Physical Exam Vital signs: Vital Signs 09/05/18 16:00 09/05/18 20:00 09/06/18 00:00 Temperature 98.2 F 98.5 F 98.4 F Pulse Rate 73 77 74 Respiratory Rate 18 18 18 Blood Pressure 150/65 H 124/60 121/58 L Pulse Oximetry 96 96 95 09/06/18 04:00 09/06/18 07:00 09/06/18 07:59 Temperature 98.2 F Pulse Rate 72 73 Respiratory Rate 12 20 Blood Pressure 148/69 H Pulse Oximetry 98 09/06/18 08:00 09/06/18 11:51 09/06/18 12:00 Temperature 97.4 F L Pulse Rate 70 82 85 Respiratory Rate 18 Blood Pressure 120/62 Pulse Oximetry 99 Intake & Output 09/05/18 09/06/18 09/06/18 18:59 06:59 18:59 Intake Total 1785 / 1785 300 / 300 530 / 530 Output Total 3300 / 3300 1850 / 1850 1400 / 1400 Balance -1515 / -1515 -1550 / -1550 -870 / -870 Intake: IV 615 / 615 300 / 300 50 / 50 Diflucan 400 mg Premix Bag 200 200 / 200 ML @ 100 mls/hr IV.SIG Q24H [facility] Rx#:[id number] Zosyn 3.375 GM Premix 50 ML @ 100 / 100 100 / 100 50 / 50 100 mls/hr IV.SIG Q6H [facility] Rx#: [id number] Vancomycin Inj 1,500 MG In NS 515 / 515 Inj 500 ML @ 250 mls/hr IV.SIG Q18H [facility] Rx#:[id number] Oral 1170 / 1170 480 / 480 Output: Urine 3300 / 3300 1850 / 1850 1400 / 1400 Other: Date of Last Bowel Movement 09/05/18 09/05/18 Narrative: GENERAL: NAD, A&Ox3 HEAD: Normocephalic. NECK: Supple, trachea midline. No lymphadenopathy. EYES: No scleral icterus. No injection or drainage. CARDIOVASCULAR: Regular rate and rhythm without murmurs, gallops, or rubs. RESPIRATORY: Breath sounds equal bilaterally. No accessory muscle use. GASTROINTESTINAL: Abdomen soft, non-tender, nondistended. Colostomy present. MUSCULOSKELETAL: No cyanosis, no edema. SKIN: Warm and dry. Erythema at left inguinal area is improving. Left ankle ulcer. NEURO: No focal neurological deficits. - Urinary Catheter Management Indwelling Urethral Catheter Cath placed during this visit: yes, but has since been removed by the nurse Reason for continuing: Chronic Urinary Retention Insertion date: 08/30/18 Insertion time: 10:00 Removal date: 09/03/18 Removal time: 16:00 Suprapubic Cath placed during this visit: yes Reason for continuing: Other continuation reason Insertion date: 09/03/18 Results - Labs CBC & Chem 7: 09/04/18 06:44 09/04/18 06:44 Laboratory Results - last 24 hr 09/05/18 09/05/18 09/05/18 16:17 16:19 20:25 POC Glucose 133 H 223 H Urine Color Straw Urine Clarity Hazy H Urine pH 8.0 Ur Specific [place] 1.005 Urine Protein Negative Urine Glucose (UA) Negative Urine Ketones Negative Urine Occult Blood Small H Urine Nitrate Negative Urine Bilirubin Negative Urine Urobilinogen Less than 2 Ur Leukocyte Esterase Large H Urine RBC 4 H Urine WBC 90 H Ur Squamous Epith Cells <1 Urine Bacteria Rare H Urine Mucus Few H Micro UA Comment Cath-culture ind Ur Microscopic Review Not Reportable Urine Culture Comments Cath-cult indicated 09/06/18 09/06/18 09/06/18 04:05 07:13 11:06 POC Glucose 216 H 207 H 236 H Urine Color Urine Clarity Urine pH Ur Specific [place] Urine Protein Urine Glucose (UA) Urine Ketones Urine Occult Blood Urine Nitrate Urine Bilirubin Urine Urobilinogen Ur Leukocyte Esterase Urine RBC Urine WBC Ur Squamous Epith Cells Urine Bacteria Urine Mucus Micro UA Comment Ur Microscopic Review Urine Culture Comments Microbiology 09/05/18 16:19 Catheterized Urine Urine Culture - Preliminary No growth in 24 hours - Procedures none Assessment and Plan - Plan 68 y.o male admitted with sepsis related to cellulitis (let vesiculo-cutaneous/ inguinal fistula) No acute changes overnight. Improved cellulitis with antibiotics. Patient to the OR 09/03/2018 for suprapubic catheter placement. Patient doing well postop. Urology and ID following. Continued monitoring of wound. 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 Nystatin cream sacral/gluteal decub Continue wound care Colostomy Continue nursing management Follow clinically DVT prophylaxis SCDs Heparin (on hold for procedure) Discharge planning Pending urology clearance Pending ID clearance Patient does not want a group home facility
[2018-09-07] MEDS: Insulin NovoLOG Aspart Correctional Sugar Inj SQ SCH ×5 (03:38→21:26)
[2018-09-07] MEDS: Piperacil/Tazo 3.375 GM Premix 50 ML IV.SIG SCH ×4 (03:38→23:23)
[2018-09-07 07:54] LABS: Baso # (Auto) 0.1 th/mm3 (0.0-0.2); Baso % (Auto) 0.5 % (0.0-2.0); Eos # (Auto) 0.2 th/mm3 (0.0-0.4); Eos % (Auto) 1.8 % (0.0-4.0); Lymph # (Auto) 2.5 th/mm3 (1.0-4.8); Lymph % (Auto) 19.5 % (9.0-44.0); Mean Corpuscular HGB Conc 32.3 % (32.0-36.0); Mean Corpuscular Hemoglobin 28.9 pg (27.0-34.0); Mean Corpuscular Volume 89.4 fL (80.0-100.0); Mean Platelet Volume 7.1 fL (7.0-11.0); Mono # (Auto) 0.8 th/mm3 (0.0-0.9); Mono % (Auto) 6.6 % (0.0-8.0); Neut # (Auto) 9.2 th/mm3 (1.8-7.7); Neut % (Auto) 71.6 % (16.0-70.0); Platelet Count 270 th/mm3 (150-450); Red Blood Count 4.14 mil/mm3 (4.50-5.90); Red Cell Distribution Width 13.5 % (11.6-17.2); White Blood Count 12.8 th/mm3 (4.0-11.0)
[2018-09-07 08:10] LABS: Albumin 2.2 g/dL (3.4-5.0); Anion Gap 11 meq/L (5-15); Aspartate Aminotransferase 17 U/L (15-37); Blood Urea Nitrogen 17 mg/dL (7-18); Calcium 8.8 mg/dL (8.5-10.1); Carbon Dioxide 28.3 meq/L (21.0-32.0); Chloride 103 meq/L (98-107); Glomerular Filtration Rate 72 mL/min (>89); Glucose,Random 133 mg/dL (74-106); Potassium 3.5 meq/L (3.5-5.1); Sodium 142 meq/L (136-145)
[2018-09-07 08:13] LABS: Alanine Aminotransferase 15 U/L (12-78); Alkaline Phosphatase 58 U/L (45-117); Total Protein 7.2 g/dL (6.4-8.2)
--- NOTE | 2018-09-07 08:40 | P.PNURO ---
Subjective Patient symptoms today: Pt seen and examined. Feels well overall. Objective Vital Signs: Vital Signs 09/06/18 11:51 09/06/18 12:00 09/06/18 16:00 Temperature 97.4 F L 98 F Pulse Rate 82 85 71 Respiratory Rate 18 Blood Pressure 120/62 150/71 H Pulse Oximetry 99 98 09/06/18 20:00 09/07/18 00:00 09/07/18 04:00 Temperature 98.8 F 98.6 F 98.4 F Pulse Rate 77 64 67 Respiratory Rate 18 18 Blood Pressure 117/60 120/66 122/59 L Pulse Oximetry 97 97 96 Intake & Output 09/06/18 09/07/18 09/07/18 18:59 06:59 18:59 Intake Total 1300 / 1300 300 / 300 Output Total 3000 / 3000 2200 / 2200 Balance -1700 / -1700 -1900 / -1900 Weight 88 kg Intake: IV 100 / 100 300 / 300 Diflucan 400 mg Premix Bag 200 200 / 200 ML @ 100 mls/hr IV.SIG Q24H [facility] Rx#:[id number] Zosyn 3.375 GM Premix 50 ML @ 100 / 100 100 / 100 100 mls/hr IV.SIG Q6H [facility] Rx#: [id number] Oral 1200 / 1200 Output: Urine 3000 / 3000 2200 / 2200 Other: Date of Last Bowel Movement 09/05/18 09/05/18 Result Diagrams: 09/07/18 05:49 09/07/18 05:49 Medications and IVs: Active Medications Generic Name Dose Route Start Last Admin Trade Name Freq PRN Reason Stop Dose Admin Acetaminophen 650 mg 08/28/18 15:32 08/29/18 04:19 Tylenol PO 650 mg Q4H PRN Administration Temp > 100.4 Bisacodyl 10 mg 08/28/18 15:32 Dulcolax Supp RECTAL DAILY PRN SEVERE CONSITIPATION Collagenase 1 applicatio 08/30/18 09:00 09/06/18 08:32 Santyl Oint TOPICAL 1 applicatio DAILY [facility] Administration Dextrose 50 ml 08/28/18 15:28 D50w Vial IV.PUSH UNSCH PRN PER HYPOGLYCEMIA PROTOCOL Glucagon 1 mg 08/28/18 15:28 Glucagon Inj OTHER PRN PRN for Hypoglycemia Protocol Piperacillin/Tazobactam/Dextrose 50 mls @ 100 mls/hr 08/28/18 22:00 09/07/18 04:21 Zosyn 3.375 Gm Premix IV.SIG Infused Q6H [facility] Infusion Norepinephrine Bitartrate 4 mg in 250 mls @ 7.5 mls/hr 08/29/18 06:19 12:15 Levophed-Dextrose 4 Mg/250 Ml Drip IV.SIG 0 mcg/min TITRATE PRN 0 mls/hr Per Protocol Titration Protocol 2 MCG/MIN Sodium Chloride 500 mls @ 30 mls/hr 09/03/18 09:00 09/03/18 09:00 Ns Inj IV.SIG Not Given .Q10H [facility] Fluconazole 200 mls @ 100 mls/hr 09/04/18 20:00 09/06/18 23:26 Diflucan 400 Mg Premix Bag IV.SIG Infused Q24H [facility] Infusion Insulin Aspart 0 unit 08/28/18 17:00 09/07/18 03:38 Novolog Insulin Correctional Sugar Inj SQ Not Given ACHS AND 3AM [facility] Protocol Insulin Human Isoph/Insulin Regular 14 units 09/02/18 09:10 09/06/18 16:49 Novolin 70/30 Inj SQ 14 units BID@0800,1700 [facility] Administration Lactulose 30 ml 08/28/18 15:32 Lactulose Liq PO DAILY PRN SEVERE CONSITIPATION Nystatin 1 applicatio 08/28/18 18:00 09/06/18 21:23 Mycostatin Cream TOPICAL 1 applicatio QID [facility] Administration Ondansetron HCl 4 mg 08/28/18 15:32 Zofran Inj IV.PUSH Q6H PRN NAUSEA OR VOMITING Senna/Docusate Sodium 1 tab 08/28/18 21:00 09/06/18 21:21 Diane-Colace PO Not Given BID [facility] Sennosides 17.2 mg 08/28/18 15:32 Senokot PO Q12H PRN Moderate Constipation Sodium Chloride 2 ml 09/03/18 21:00 09/06/18 21:23 Ns Flush IV.FLUSH 2 ml BID [facility] Administration Sodium Chloride 2 ml 09/03/18 17:03 Ns Flush IV.FLUSH PRN PRN FLUSH AFTER USING IV ACCESS Terbutaline Sulfate 1 mg 08/29/18 06:19 Brethine Inj SQ UNSCH PRN For Extravasation Objective Remarks: Abd:soft,nt,nd Lainez in place Right groin area with small drainage for now. 08/31 Abd:soft,nt,nd Left inquinal cellulitis noted which is improving. Crepitus noted. No signs of gangreen Lainez now with clear urine. Pt reports no drainage from left groin site 09/01 Abd:soft,nt,nd. Crepitus not palpated today. Lainez with clear urine. Purulent drainage from wound site. 09/02 Abd:soft,nt,nd. Crepitus not palpated today. Lainez with clear urine. Purulent drainage from wound site. 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 Once infection clears with need cystoscopy. May need SP tube placement in future. Will leave lainez for now. Air noted in SQ tissue over lower abdomen. WBC count is improving. Continue to monitor clinically. Hopefully urine drainage from left groin will stop after lainez has been placed. Will monitor. Continue IV abx for now. B/C positive: gram + Repeat UCx pending Will follow. 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 No drainage noted since placement of lainez catheter Continue IV abx per ID recommendations Continue present care. 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 Continue IV abx per ID recommendations Change packing daily Will place lainez catheter to see if groin drainage diminishes CT scan of pelvis today
[2018-09-07] MEDS: Sodium Chloride 0.9% 2 ML Flush BID IV.FLUSH SCH ×2 (08:54→20:21)
[2018-09-07] MEDS: Senna/Docusate Sodium 8.6/50 MG Tablet PO SCH ×3 (08:54→21:28)
[2018-09-07] MEDS: Collagenase Oint 30 GM Tube TOPICAL SCH (08:55)
--- NOTE | 2018-09-07 13:37 | CT ---
EXAM DATE: 09/07/2018 11:17 AM EDT AGE/SEX: 68 years / Male INDICATIONS: Possible fistula/sepsis. CLINICAL DATA: This is the patient's initial encounter. Patient reports that signs and symptoms have been present for 1 day and indicates a pain score of 4/10. MEDICAL/SURGICAL HISTORY: . Left inguinal wound . Suprapubic catheter. RADIATION DOSE: 8.37 CTDI (mGy) COMPARISON: No prior exams available for comparison. TECHNIQUE: Multiple contiguous axial images were obtained through the pelvis without contrast. Imag es were obtained using multiple row detector helical technique. . Using automated exposure control an d adjustment of the mA and/or kV according to patient size, radiation dose was kept as low as reasona xiao achievable to obtain optimal diagnostic quality images. DICOM format image data is available pamela ctronically for review and comparison. FINDINGS: There are degenerative changes of the spine. There is a left lower quadrant colostomy identified. The re is a suprapubic catheter at the midline identified. There is mild adjacent skin thickening and a t iny locule of subcutaneous air seen. The catheter and balloon are present within the urinary bladder which is collapsed and thick walled with high density surrounding the catheter balloon. It is uncerta in if this is related to underdistention and wall thickening versus associated bladder clot. There is right hydroureter identified. There is circumferential wall thickening of the rectum seen best on axial image 31. Anastomotic stapl e line is present. Within the subcutaneous fat of the left lower quadrant anteriorly there is a gas a nd fluid collection identified extending over several centimeters with overlying skin thickening. On axial image 37 the air and fluid collection measures 7.3 x 2.8 cm in transverse and AP dimension. Thi s is felt to represent a developing abscess. The subcutaneous air surrounding this node on the previo us study is decreased in prominence however the inflammatory stranding and overlying skin thickening is increased. This gas and fluid collection extends inferiorly into the left inguinal canal and into the scrotal region. A fat-containing right inguinal hernia is noted. As noted previously small foci o f subcutaneous air are seen anterior to the right inguinal canal extending into the scrotum adjacent to the base of the penis. This is unchanged. CONCLUSION: 1. More organized appearing gas collection with some fluid and surrounding skin thickening and infla mmatory stranding extending from the left lower quadrant subcutaneous tissues into the left inguinal region and into the scrotum. A small amount of subcutaneous air is also seen near the base of the pen is on the right as before. The findings are quite concerning for infection with gas-forming organism. 2. The bladder is decompressed and there is prominent wall thickening. The possibility of clot withi n the bladder should be entertained given the high density. There is mild dilatation of the right ure ter. Electronically signed by: Lance Martinez MD 09/07/2018 1:35 PM EDT
--- NOTE | 2018-09-07 14:40 | P.PNIM ---
Subjective Interval history: The patient was resting comfortably in bed. He said his pain was controlled. He did not have any acute complaints. Discussed with nursing. Physical Exam Vital signs: Vital Signs 09/06/18 16:00 09/06/18 20:00 09/07/18 00:00 Temperature 98 F 98.8 F 98.6 F Pulse Rate 71 77 64 Respiratory Rate 18 18 18 Blood Pressure 150/71 H 117/60 120/66 Pulse Oximetry 98 97 97 09/07/18 04:00 09/07/18 08:00 09/07/18 12:00 Temperature 98.4 F 98.2 F 98.1 F Pulse Rate 67 68 78 Respiratory Rate 18 19 17 Blood Pressure 122/59 L 153/70 H 114/57 L Pulse Oximetry 96 97 97 Intake & Output 09/06/18 09/07/18 09/07/18 18:59 06:59 18:59 Intake Total 1300 / 1300 300 / 300 50 / 50 Output Total 3000 / 3000 2200 / 2200 Balance -1700 / -1700 -1900 / -1900 50 / 50 Weight 88 kg Intake: IV 100 / 100 300 / 300 50 / 50 Diflucan 400 mg Premix Bag 200 200 / 200 ML @ 100 mls/hr IV.SIG Q24H SHREYAS Rx#:[id number] Zosyn 3.375 GM Premix 50 ML @ 100 / 100 100 / 100 50 / 50 100 mls/hr IV.SIG Q6H SHREYAS Rx#: [id number] Oral 1200 / 1200 Output: Urine 3000 / 3000 2200 / 2200 Other: Date of Last Bowel Movement 09/05/18 09/05/18 Narrative: GENERAL: NAD. HEAD: Normocephalic. NECK: Supple, trachea midline. No lymphadenopathy. EYES: No scleral icterus. No injection or drainage. CARDIOVASCULAR: Regular rate and rhythm without murmurs, gallops, or rubs. RESPIRATORY: Breath sounds equal bilaterally. No accessory muscle use. GASTROINTESTINAL: Abdomen soft, non-tender, nondistended. Colostomy present. Scars noted. MUSCULOSKELETAL: No cyanosis, no edema. SKIN: Warm and dry. Erythema at left inguinal area with some induration. Left ankle ulcer. NEURO: No focal neurological deficits. - Urinary Catheter Management Indwelling Urethral Catheter Cath placed during this visit: yes, but has since been removed by the nurse Reason for continuing: Acute urinary retention Insertion date: 08/30/18 Insertion time: 10:00 Removal date: 09/03/18 Removal time: 16:00 Suprapubic Cath placed during this visit: yes Reason for continuing: Acute urinary retention Insertion date: 09/03/18 Results - Labs CBC & Chem 7: 09/07/18 05:49 09/07/18 05:49 Laboratory Results - last 24 hr 09/06/18 09/06/18 09/07/18 16:16 21:20 03:38 WBC RBC Hgb Hct MCV MCH MCHC RDW Plt Count MPV Prelim Diff (Auto) Neut % (Auto) Lymph % (Auto) [facility] % (Auto) Eos % (Auto) Baso % (Auto) Neut # (Auto) Lymph # (Auto) [facility] # (Auto) Eos # (Auto) Baso # (Auto) WBC Differential Diff Scan Differential Comment Sodium Potassium Chloride Carbon Dioxide Anion Gap BUN Creatinine Estimated GFR POC Glucose 232 H 115 H 145 H Random Glucose Calcium Total Bilirubin AST ALT Alkaline Phosphatase Total Protein Albumin 09/07/18 09/07/18 09/07/18 05:49 05:49 08:53 WBC 12.8 H RBC 4.14 L Hgb 12.0 L Hct 37.0 L MCV 89.4 MCH 28.9 MCHC 32.3 RDW 13.5 Plt Count 270 MPV 7.1 Prelim Diff (Auto) Slide review pending Neut % (Auto) 71.6 H Lymph % (Auto) 19.5 [facility] [place] % (Auto) 6.6 Eos % (Auto) 1.8 Baso % (Auto) 0.5 Neut # (Auto) 9.2 H Lymph # (Auto) 2.5 [facility] [place] [facility] # (Auto) 0.8 Eos # (Auto) 0.2 Baso # (Auto) 0.1 WBC Differential . Diff Scan Auto diff confirmed Differential Comment . Sodium 142 Potassium 3.5 Chloride 103 Carbon Dioxide 28.3 Anion Gap 11 BUN 17 Creatinine 1.03 Estimated GFR 72 L POC Glucose 142 H Random Glucose 133 H Calcium 8.8 Total Bilirubin 0.3 AST 17 ALT 15 Alkaline Phosphatase 58 Total Protein 7.2 D Albumin 2.2 L 09/07/18 11:27 WBC RBC Hgb Hct MCV MCH MCHC RDW Plt Count MPV Prelim Diff (Auto) Neut % (Auto) Lymph % (Auto) [facility] [place] [facility] % (Auto) Eos % (Auto) Baso % (Auto) Neut # (Auto) Lymph # (Auto) [facility] # (Auto) Eos # (Auto) Baso # (Auto) WBC Differential Diff Scan Differential Comment Sodium Potassium Chloride Carbon Dioxide Anion Gap BUN Creatinine Estimated GFR POC Glucose 125 H Random Glucose Calcium Total Bilirubin AST ALT Alkaline Phosphatase Total Protein Albumin Microbiology 09/05/18 16:19 Catheterized Urine Urine Culture - Final No growth in 48 hours - Imaging Impressions Pelvis CT 09/07/18 00:00 CONCLUSION: 1. More organized appearing gas collection with some fluid and surrounding skin thickening and inflammatory stranding extending from the left lower quadrant subcutaneous tissues into the left inguinal region and into the scrotum. A small amount of subcutaneous air is also seen near the base of the penis on the right as before. The findings are quite concerning for infection with gas-forming organism. 2. The bladder is decompressed and there is prominent wall thickening. The possibility of clot within the bladder should be entertained given the high density. There is mild dilatation of the right ureter. - Procedures none Assessment and Plan - Plan 68 y.o male admitted with sepsis related to cellulitis (let vesiculo-cutaneous/ inguinal fistula) No acute changes overnight. Improved cellulitis with antibiotics. Patient to the OR 09/03/2018 for suprapubic catheter placement. Patient doing well postop. Urology and ID following. Continued monitoring of wound. 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 Status post: Cystogram, flexible cystoscopy, antegrade urethrogram, placement of suprapubic tube catheter, irrigation and packing of left inguinal wound. CT: More organized appearing gas collection with some fluid and surrounding skin thickening and inflammatory stranding extending from the left lower quadrant subcutaneous tissues into the left inguinal region and into the scrotum ; A small amount of subcutaneous air is also seen near the base of the penis on the right as before; The findings are quite concerning for infection with gas- forming organism; The bladder is decompressed and there is prominent wall thickening; The possibility of clot within the bladder should be entertained given the high density; There is mild dilatation of the right ureter. -ID consult appreciated. Continue vancomycin and Zosyn. -Urology following. SELENA Improving -Follow renal function Hypokalemia -Monitor and replace as needed Diabetes mellitus type 2 Follow blood sugars Insulin sliding scale Diabetic diet -Continue baseline insulin treatments and adjust as needed Left lateral foot ankle ulceration Patient has been evaluated by podiatry previously -Continue wound care recommendations. Will need outpt follow-up. Tinea cruis. -Nystatin cream sacral/gluteal decub -Continue wound care Colostomy -Continue nursing management DVT prophylaxis: Heparin
[2018-09-08] MEDS: Piperacil/Tazo 3.375 GM Premix 50 ML IV.SIG SCH ×4 (03:28→23:34)
[2018-09-08] MEDS: Insulin NovoLOG Aspart Correctional Sugar Inj SQ SCH ×5 (03:31→21:33)
[2018-09-08 09:12] LABS: Baso % (Auto) 0.4 % (0.0-2.0); Eos # (Auto) 0.2 th/mm3 (0.0-0.4); Eos % (Auto) 1.6 % (0.0-4.0); Hematocrit 36.1 % (39.0-51.0); Hemoglobin 11.9 gm/dL (13.0-17.0); Mean Corpuscular HGB Conc 32.8 % (32.0-36.0); Mean Corpuscular Hemoglobin 29.2 pg (27.0-34.0); Mono # (Auto) 0.6 th/mm3 (0.0-0.9); Neut # (Auto) 9.8 th/mm3 (1.8-7.7); Platelet Count 290 th/mm3 (150-450); Red Blood Count 4.06 mil/mm3 (4.50-5.90); Red Cell Distribution Width 13.8 % (11.6-17.2); White Blood Count 12.7 th/mm3 (4.0-11.0)
[2018-09-08 09:29] LABS: Calcium 9.1 mg/dL (8.5-10.1); Carbon Dioxide 26.5 meq/L (21.0-32.0); Potassium 4.1 meq/L (3.5-5.1)
[2018-09-08] MEDS: Sodium Chloride 0.9% 2 ML Flush BID IV.FLUSH SCH ×2 (10:07→21:34)
[2018-09-08] MEDS: Senna/Docusate Sodium 8.6/50 MG Tablet PO SCH ×2 (10:07→23:37)
[2018-09-08] MEDS: Collagenase Oint 30 GM Tube TOPICAL SCH (10:07)
--- NOTE | 2018-09-08 11:40 | P.PNURO ---
Subjective Patient symptoms today: Pt seen and examined. CT reviewed. Still with left nquinal collection. Purlent material draining from wound site. Objective Vital Signs: Vital Signs 09/07/18 12:00 09/07/18 16:00 09/07/18 20:00 Temperature 98.1 F 98.4 F 99.4 F Pulse Rate 78 73 70 Respiratory Rate 17 18 18 Blood Pressure 114/57 L 134/63 145/63 H Pulse Oximetry 97 96 97 09/07/18 20:16 09/07/18 23:50 09/08/18 00:00 Temperature 98 F Pulse Rate 73 74 81 Respiratory Rate 18 Blood Pressure 147/66 H Pulse Oximetry 96 09/08/18 04:00 09/08/18 04:10 09/08/18 08:00 Temperature 98.9 F 98.5 F Pulse Rate 72 72 70 Respiratory Rate 18 20 Blood Pressure 104/62 120/58 L Pulse Oximetry 97 96 Intake & Output 09/07/18 09/08/18 09/08/18 18:59 06:59 18:59 Intake Total 1300 / 1300 300 / 300 50 / 50 Output Total 1200 / 1200 800 / 800 Balance 100 / 100 300 / 300 -750 / -750 Intake: IV 100 / 100 300 / 300 50 / 50 Diflucan 400 mg Premix Bag 200 200 / 200 ML @ 100 mls/hr IV.SIG Q24H SHREYAS Rx#:[id number] Zosyn 3.375 GM Premix 50 ML @ 100 / 100 100 / 100 50 / 50 100 mls/hr IV.SIG Q6H SHREYAS Rx#: [id number] Oral 1200 / 1200 Output: Urine 1200 / 1200 Urine Amount (Catheter) 800 / 800 Indwelling Urethral Catheter 100 / 100 Suprapubic 700 / 700 Other: Date of Last Bowel Movement 09/05/18 Result Diagrams: 09/08/18 08:36 09/08/18 08:36 Imaging: Impressions Pelvis CT 09/07/18 00:00 CONCLUSION: 1. More organized appearing gas collection with some fluid and surrounding skin thickening and inflammatory stranding extending from the left lower quadrant subcutaneous tissues into the left inguinal region and into the scrotum. A small amount of subcutaneous air is also seen near the base of the penis on the right as before. The findings are quite concerning for infection with gas-forming organism. 2. The bladder is decompressed and there is prominent wall thickening. The possibility of clot within the bladder should be entertained given the high density. There is mild dilatation of the right ureter. Medications and IVs: Active Medications Generic Name Dose Route Start Last Admin Trade Name Freq PRN Reason Stop Dose Admin Acetaminophen 650 mg 08/28/18 15:32 08/29/18 04:19 Tylenol PO 650 mg Q4H PRN Administration Temp > 100.4 Bisacodyl 10 mg 08/28/18 15:32 Dulcolax Supp RECTAL DAILY PRN SEVERE CONSITIPATION Collagenase 1 applicatio 08/30/18 09:00 09/08/18 10:07 Santyl Oint TOPICAL 1 applicatio DAILY SHREYAS Administration Dextrose 50 ml 08/28/18 15:28 D50w Vial IV.PUSH UNSCH PRN PER HYPOGLYCEMIA PROTOCOL Glucagon 1 mg 08/28/18 15:28 Glucagon Inj OTHER PRN PRN for Hypoglycemia Protocol Piperacillin/Tazobactam/Dextrose 50 mls @ 100 mls/hr 08/28/18 22:00 09/08/18 10:51 Zosyn 3.375 Gm Premix IV.SIG Infused Q6H SHREYAS Infusion Norepinephrine Bitartrate 4 mg in 250 mls @ 7.5 mls/hr 08/29/18 06:19 12:15 Levophed-Dextrose 4 Mg/250 Ml Drip IV.SIG 0 mcg/min TITRATE PRN 0 mls/hr Per Protocol Titration Protocol 2 MCG/MIN Sodium Chloride 500 mls @ 30 mls/hr 09/03/18 09:00 09/03/18 09:00 Ns Inj IV.SIG Not Given .Q10H SHREYAS Fluconazole 200 mls @ 100 mls/hr 09/04/18 20:00 09/07/18 22:17 Diflucan 400 Mg Premix Bag IV.SIG Infused Q24H SHREYAS Infusion Insulin Aspart 0 unit 08/28/18 17:00 09/08/18 11:23 Novolog Insulin Correctional Sugar Inj SQ 10 unit ACHS AND 3AM SHREYAS Administration Protocol Insulin Human Isoph/Insulin Regular 14 units 09/02/18 09:10 09/08/18 10:06 Novolin 70/30 Inj SQ 14 units BID@0800,1700 SHREYAS Administration Lactulose 30 ml 08/28/18 15:32 Lactulose Liq PO DAILY PRN SEVERE CONSITIPATION Nystatin 1 applicatio 08/28/18 18:00 09/08/18 10:07 Mycostatin Cream TOPICAL 1 applicatio QID SHREYAS Administration Ondansetron HCl 4 mg 08/28/18 15:32 Zofran Inj IV.PUSH Q6H PRN NAUSEA OR VOMITING Senna/Docusate Sodium 1 tab 08/28/18 21:00 09/08/18 10:07 Diane-Colace PO 1 tab BID SHREYAS Administration Sennosides 17.2 mg 08/28/18 15:32 Senokot PO Q12H PRN Moderate Constipation Sodium Chloride 2 ml 09/03/18 21:00 09/08/18 10:07 Ns Flush IV.FLUSH 2 ml BID SHREYAS Administration Sodium Chloride 2 ml 09/03/18 17:03 Ns Flush IV.FLUSH PRN PRN FLUSH AFTER USING IV ACCESS Terbutaline Sulfate 1 mg 08/29/18 06:19 Brethine Inj SQ UNSCH PRN For Extravasation Objective Remarks: Abd:soft,nt,nd Lainez in place Right groin area with small drainage for now. 08/31 Abd:soft,nt,nd Left inquinal cellulitis noted which is improving. Crepitus noted. No signs of gangreen Lainez now with clear urine. Pt reports no drainage from left groin site 09/01 Abd:soft,nt,nd. Crepitus not palpated today. Lainez with clear urine. Purulent drainage from wound site. 09/02 Abd:soft,nt,nd. Crepitus not palpated today. Lainez with clear urine. Purulent drainage from wound site. 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 Once infection clears with need cystoscopy. May need SP tube placement in future. Will leave lainez for now. Air noted in SQ tissue over lower abdomen. WBC count is improving. Continue to monitor clinically. Hopefully urine drainage from left groin will stop after lainez has been placed. Will monitor. Continue IV abx for now. B/C positive: gram + Repeat UCx pending Will follow. 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 No drainage noted since placement of lainez catheter Continue IV abx per ID recommendations Continue present care. 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 CT shows still prominent collection in left inquinal canal Will need VAC placement in OR to resolve collection. Will plan for this week as OR time allows.
--- NOTE | 2018-09-08 16:29 | P.PNIM ---
Subjective Interval history: The patient was resting in bed comfortably. He denied any pain. He was tolerating a diet. No acute concerns. Physical Exam Vital signs: Vital Signs 09/07/18 20:00 09/07/18 20:16 09/07/18 23:50 Temperature 99.4 F Pulse Rate 70 73 74 Respiratory Rate 18 Blood Pressure 145/63 H Pulse Oximetry 97 09/08/18 00:00 09/08/18 04:00 09/08/18 04:10 Temperature 98 F 98.9 F Pulse Rate 81 72 72 Respiratory Rate 18 18 Blood Pressure 147/66 H 104/62 Pulse Oximetry 96 97 09/08/18 08:00 09/08/18 12:00 09/08/18 16:00 Temperature 98.5 F 97.1 F L 97.3 F L Pulse Rate 70 83 72 Respiratory Rate 20 20 20 Blood Pressure 120/58 L 94/50 L 124/59 L Pulse Oximetry 96 97 98 Intake & Output 09/07/18 09/08/18 09/08/18 18:59 06:59 18:59 Intake Total 1300 / 1300 300 / 300 50 / 50 Output Total 1200 / 1200 800 / 800 Balance 100 / 100 300 / 300 -750 / -750 Intake: IV 100 / 100 300 / 300 50 / 50 Diflucan 400 mg Premix Bag 200 200 / 200 ML @ 100 mls/hr IV.SIG Q24H SHREYAS Rx#:[id number] Zosyn 3.375 GM Premix 50 ML @ 100 / 100 100 / 100 50 / 50 100 mls/hr IV.SIG Q6H SHREYAS Rx#: [id number] Oral 1200 / 1200 Output: Urine 1200 / 1200 Urine Amount (Catheter) 800 / 800 Indwelling Urethral Catheter 100 / 100 Suprapubic 700 / 700 Other: Date of Last Bowel Movement 09/05/18 Narrative: GENERAL: NAD. HEAD: Normocephalic. NECK: Supple, trachea midline. No lymphadenopathy. EYES: No scleral icterus. No injection or drainage. CARDIOVASCULAR: Regular rate and rhythm without murmurs, gallops, or rubs. RESPIRATORY: Breath sounds equal bilaterally. No accessory muscle use. GASTROINTESTINAL: Abdomen soft, non-tender, nondistended. Colostomy present. Scars noted. MUSCULOSKELETAL: No cyanosis, no edema. SKIN: Warm and dry. Erythema at left inguinal area with some induration. Left ankle ulcer. NEURO: No focal neurological deficits. - Urinary Catheter Management Indwelling Urethral Catheter Cath placed during this visit: yes, but has since been removed by the nurse Reason for continuing: Chronic Urinary Retention Insertion date: 09/07/18 Insertion time: 16:00 Removal date: 09/03/18 Removal time: 16:00 Suprapubic Cath placed during this visit: yes Reason for continuing: Chronic Urinary Retention Insertion date: 09/03/18 Results - Labs CBC & Chem 7: 09/08/18 08:36 09/08/18 08:36 Laboratory Results - last 24 hr 09/07/18 09/07/18 09/08/18 17:41 20:23 03:28 WBC RBC Hgb Hct MCV MCH MCHC RDW Plt Count MPV Neut % (Auto) Lymph % (Auto) [place] % (Auto) Eos % (Auto) Baso % (Auto) Neut # (Auto) Lymph # (Auto) [place] # (Auto) Eos # (Auto) Baso # (Auto) WBC Differential Differential Comment Sodium Potassium Chloride Carbon Dioxide Anion Gap BUN Creatinine Estimated GFR POC Glucose 234 H 237 H 105 Random Glucose Calcium Magnesium 09/08/18 09/08/18 09/08/18 07:44 08:36 08:36 WBC 12.7 H RBC 4.06 L Hgb 11.9 L Hct 36.1 L MCV 89.0 MCH 29.2 MCHC 32.8 RDW 13.8 Plt Count 290 MPV 7.0 Neut % (Auto) 77.0 H Lymph % (Auto) 16.0 [place] % (Auto) 5.0 Eos % (Auto) 1.6 Baso % (Auto) 0.4 Neut # (Auto) 9.8 H Lymph # (Auto) 2.0 [place] # (Auto) 0.6 Eos # (Auto) 0.2 Baso # (Auto) 0.0 WBC Differential . Differential Comment Auto diff final Sodium 139 Potassium 4.1 Chloride 103 Carbon Dioxide 26.5 Anion Gap 10 BUN 19 H Creatinine 1.06 Estimated GFR 69 L POC Glucose 128 H Random Glucose 133 H Calcium 9.1 Magnesium 2.0 09/08/18 11:14 WBC RBC Hgb Hct MCV MCH MCHC RDW Plt Count MPV Neut % (Auto) Lymph % (Auto) [place] % (Auto) Eos % (Auto) Baso % (Auto) Neut # (Auto) Lymph # (Auto) [place] # (Auto) Eos # (Auto) Baso # (Auto) WBC Differential Differential Comment Sodium Potassium Chloride Carbon Dioxide Anion Gap BUN Creatinine Estimated GFR POC Glucose 212 H Random Glucose Calcium Magnesium - Procedures none Assessment and Plan - Plan 68 y.o male admitted with sepsis related to cellulitis (let vesiculo-cutaneous/ inguinal fistula) No acute changes overnight. Improved cellulitis with antibiotics. Patient to the OR 09/03/2018 for suprapubic catheter placement. Patient doing well postop. Urology and ID following. Continued monitoring of wound. 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 Status post: Cystogram, flexible cystoscopy, antegrade urethrogram, placement of suprapubic tube catheter, irrigation and packing of left inguinal wound. CT: More organized appearing gas collection with some fluid and surrounding skin thickening and inflammatory stranding extending from the left lower quadrant subcutaneous tissues into the left inguinal region and into the scrotum ; A small amount of subcutaneous air is also seen near the base of the penis on the right as before; The findings are quite concerning for infection with gas- forming organism; The bladder is decompressed and there is prominent wall thickening; The possibility of clot within the bladder should be entertained given the high density; There is mild dilatation of the right ureter. -ID consult appreciated. Continue vancomycin and Zosyn. -Urology following. Planning for wound VAC sometime this week to manage fluid collection. SELENA Improving -Follow renal function as needed. Hypokalemia Improved. -Monitor and replace as needed Diabetes mellitus type 2 Follow blood sugars Insulin sliding scale Diabetic diet -Continue baseline insulin treatments and adjust as needed Left lateral foot ankle ulceration Patient has been evaluated by podiatry, recommendations appreciated. -Continue wound care recommendations. Will need outpt follow-up. Tinea cruis. -Nystatin cream Sacral/gluteal decub -Continue wound care Colostomy -Continue nursing management DVT prophylaxis: Heparin Discharge Planning: Needs further surgery per urology
[2018-09-09] MEDS: Piperacil/Tazo 3.375 GM Premix 50 ML IV.SIG SCH ×4 (03:12→21:09)
[2018-09-09] MEDS: Insulin NovoLOG Aspart Correctional Sugar Inj SQ SCH ×5 (03:12→21:09)
--- NOTE | 2018-09-09 08:38 | P.PNURO ---
Subjective Patient symptoms today: Pt seen and examined. No complaints. Objective Vital Signs: Vital Signs 09/08/18 12:00 09/08/18 16:00 09/08/18 18:34 Temperature 97.1 F L 97.3 F L Pulse Rate 83 72 83 Respiratory Rate 20 20 Blood Pressure 94/50 L 124/59 L Pulse Oximetry 97 98 09/08/18 20:00 09/09/18 00:00 09/09/18 04:00 Temperature 98.8 F 98 F 98.1 F Pulse Rate 75 72 67 Respiratory Rate 16 16 18 Blood Pressure 112/56 L 123/58 L 129/59 L Pulse Oximetry 96 97 97 09/09/18 04:06 Temperature Pulse Rate 63 Respiratory Rate Blood Pressure Pulse Oximetry Intake & Output 09/08/18 09/09/18 09/09/18 18:59 06:59 18:59 Intake Total 720 / 720 100 / 100 200 / 200 Output Total 800 / 800 2800 / 2800 Balance -80 / -80 -2700 / -2700 200 / 200 Weight 88 kg Intake: IV 100 / 100 100 / 100 200 / 200 Diflucan 400 mg Premix Bag 200 200 / 200 ML @ 100 mls/hr IV.SIG Q24H [facility] Rx#:[id number] Zosyn 3.375 GM Premix 50 ML @ 100 / 100 100 / 100 100 mls/hr IV.SIG Q6H [facility] Rx#: [id number] Oral 620 / 620 Output: Urine 2800 / 2800 Urine Amount (Catheter) 800 / 800 Indwelling Urethral Catheter 100 / 100 Suprapubic 700 / 700 Result Diagrams: 09/08/18 08:36 09/08/18 08:36 Medications and IVs: Active Medications Generic Name Dose Route Start Last Admin Trade Name Freq PRN Reason Stop Dose Admin Acetaminophen 650 mg 08/28/18 15:32 08/29/18 04:19 Tylenol PO 650 mg Q4H PRN Administration Temp > 100.4 Bisacodyl 10 mg 08/28/18 15:32 Dulcolax Supp RECTAL DAILY PRN SEVERE CONSITIPATION Collagenase 1 applicatio 08/30/18 09:00 09/08/18 10:07 Santyl Oint TOPICAL 1 applicatio DAILY [facility] Administration Dextrose 50 ml 08/28/18 15:28 D50w Vial IV.PUSH UNSCH PRN PER HYPOGLYCEMIA PROTOCOL Glucagon 1 mg 08/28/18 15:28 Glucagon Inj OTHER PRN PRN for Hypoglycemia Protocol Piperacillin/Tazobactam/Dextrose 50 mls @ 100 mls/hr 08/28/18 22:00 09/09/18 04:01 Zosyn 3.375 Gm Premix IV.SIG Infused Q6H [facility] Infusion Sodium Chloride 500 mls @ 30 mls/hr 09/03/18 09:00 09/03/18 09:00 Ns Inj IV.SIG Not Given .Q10H [facility] Fluconazole 200 mls @ 100 mls/hr 09/04/18 20:00 09/09/18 07:19 Diflucan 400 Mg Premix Bag IV.SIG Infused Q24H [facility] Infusion Insulin Aspart 0 unit 08/28/18 17:00 09/09/18 03:12 Novolog Insulin Correctional Sugar Inj SQ 10 unit ACHS AND 3AM [facility] Administration Protocol Insulin Human Isoph/Insulin Regular 14 units 09/02/18 09:10 09/08/18 18:19 Novolin 70/30 Inj SQ 14 units BID@0800,1700 [facility] Administration Lactulose 30 ml 08/28/18 15:32 Lactulose Liq PO DAILY PRN SEVERE CONSITIPATION Nystatin 1 applicatio 08/28/18 18:00 09/08/18 21:33 Mycostatin Cream TOPICAL 1 applicatio QID [facility] Administration Ondansetron HCl 4 mg 08/28/18 15:32 Zofran Inj IV.PUSH Q6H PRN NAUSEA OR VOMITING Senna/Docusate Sodium 1 tab 08/28/18 21:00 09/08/18 23:37 Diane-Colace PO Not Given BID [facility] Sennosides 17.2 mg 08/28/18 15:32 Senokot PO Q12H PRN Moderate Constipation Sodium Chloride 2 ml 09/03/18 21:00 09/08/18 21:34 Ns Flush IV.FLUSH 2 ml BID [facility] Administration Sodium Chloride 2 ml 09/03/18 17:03 Ns Flush IV.FLUSH PRN PRN FLUSH AFTER USING IV ACCESS Terbutaline Sulfate 1 mg 08/29/18 06:19 Brethine Inj SQ UNSCH PRN For Extravasation Objective Remarks: Abd:soft,nt,nd Lainez in place Right groin area with small drainage for now. 08/31 Abd:soft,nt,nd Left inquinal cellulitis noted which is improving. Crepitus noted. No signs of gangreen Lainez now with clear urine. Pt reports no drainage from left groin site 09/01 Abd:soft,nt,nd. Crepitus not palpated today. Lainez with clear urine. Purulent drainage from wound site. 09/02 Abd:soft,nt,nd. Crepitus not palpated today. Lainez with clear urine. Purulent drainage from wound site. 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 Once infection clears with need cystoscopy. May need SP tube placement in future. Will leave lainez for now. Air noted in SQ tissue over lower abdomen. WBC count is improving. Continue to monitor clinically. Hopefully urine drainage from left groin will stop after lainez has been placed. Will monitor. Continue IV abx for now. B/C positive: gram + Repeat UCx pending Will follow. 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 No drainage noted since placement of lainez catheter Continue IV abx per ID recommendations Continue present care. 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 CT shows still prominent collection in left inquinal canal Will need VAC placement in OR to resolve collection. Will plan for this week as OR time allows. 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 CT shows still prominent collection in left inquinal canal Plan for OR tomorrow NPO after MN
[2018-09-09] MEDS: Senna/Docusate Sodium 8.6/50 MG Tablet PO SCH ×2 (09:30→21:10)
[2018-09-09] MEDS: Sodium Chloride 0.9% 2 ML Flush BID IV.FLUSH SCH ×2 (09:31→21:10)
[2018-09-09] MEDS: Collagenase Oint 30 GM Tube TOPICAL SCH (09:31)
[2018-09-09] MEDS ORDERED: Chlorhexidine Gluconate 2% 1 Pack (2 Cloths) TOPICAL SCH (16:06)
[2018-09-09] MEDS ORDERED: Metoprolol Tartrate 25 MG Tablet PO SCH (16:06)
--- NOTE | 2018-09-09 16:25 | P.PNIM ---
Subjective Interval history: Patient appears comfortable lying in bed, he is eating his breakfast and has no complaints of a change in his pain status. Physical Exam Vital signs: Vital Signs 09/08/18 18:34 09/08/18 20:00 09/09/18 00:00 Temperature 98.8 F 98 F Pulse Rate 83 75 72 Respiratory Rate 16 16 Blood Pressure 112/56 L 123/58 L Pulse Oximetry 96 97 09/09/18 04:00 09/09/18 04:06 09/09/18 08:00 Temperature 98.1 F 97.6 F Pulse Rate 67 63 73 Respiratory Rate 18 18 Blood Pressure 129/59 L 132/63 Pulse Oximetry 97 98 09/09/18 12:00 Temperature 97.8 F Pulse Rate 65 Respiratory Rate 18 Blood Pressure 130/64 Pulse Oximetry 99 Intake & Output 09/08/18 09/09/18 09/09/18 18:59 06:59 18:59 Intake Total 720 / 720 100 / 100 250 / 250 Output Total 800 / 800 2800 / 2800 Balance -80 / -80 -2700 / -2700 250 / 250 Weight 88 kg Intake: IV 100 / 100 100 / 100 250 / 250 Diflucan 400 mg Premix Bag 200 200 / 200 ML @ 100 mls/hr IV.SIG Q24H [facility] Rx#:[id number] Zosyn 3.375 GM Premix 50 ML @ 100 / 100 100 / 100 50 / 50 100 mls/hr IV.SIG Q6H [facility] Rx#: [id number] Oral 620 / 620 Output: Urine 2800 / 2800 Urine Amount (Catheter) 800 / 800 Indwelling Urethral Catheter 100 / 100 Suprapubic 700 / 700 Narrative: GENERAL: Alert and oriented x3, no acute distress SKIN: Erythema and tenderness extending from left hip to left upper thigh involving groin HEAD: Normocephalic. Atraumatic NECK: Supple, trachea midline. No lymphadenopathy. EYES: No scleral icterus. No injection or drainage. CARDIOVASCULAR: Regular rate and rhythm without murmurs, gallops, or rubs. RESPIRATORY: Breath sounds equal bilaterally. No accessory muscle use. GASTROINTESTINAL: Abdomen soft, non-tender, nondistended. Colostomy present. Suprapubic catheter versus drain in place and lower abdomen MUSCULOSKELETAL: No cyanosis, no edema. SKIN: Warm and dry. Erythema at left inguinal area with some induration. Left ankle ulcer. NEURO: No focal neurological deficits. - Urinary Catheter Management Indwelling Urethral Catheter Cath placed during this visit: yes, but has since been removed by the nurse Reason for continuing: Chronic Urinary Retention Insertion date: 09/07/18 Insertion time: 16:00 Removal date: 09/03/18 Removal time: 16:00 Suprapubic Cath placed during this visit: yes Reason for continuing: Chronic Urinary Retention Insertion date: 09/03/18 Results - Labs CBC & Chem 7: 09/08/18 08:36 09/08/18 08:36 Laboratory Results - last 24 hr 09/08/18 09/08/18 09/09/18 18:13 20:18 03:05 POC Glucose 125 H 288 H 231 H 09/09/18 09/09/18 07:33 11:46 POC Glucose 136 H 202 H - Procedures none Assessment and Plan - Plan Left fascicular cutaneous inguinal fistula Initially admitted for septic shock, OR on 09/03/2018 for suprapubic catheter placement Responded well to vancomycin and Zosyn, continuing Urology planning to take patient for I&D of wound and likely wound VAC placement tomorrow Urinary tract infection Covered adequately by vancomycin and Zosyn Type 2 diabetes Accu-Cheks with sliding scale insulin coverage Diabetic diet Left lateral foot ankle ulceration Patient has been evaluated by podiatry Outpatient follow-up recommended Continue wound dressing changes Tinea cruris Continue nystatin cream Sacral/gluteal decub Continue wound care Colostomy Continue nursing management DVT Prophylaxis Heparin
[2018-09-09] MEDS ORDERED: Sodium Chlor 0.9% Inj 500 ML IV.SIG SCH (17:00)
--- NOTE | 2018-09-09 18:51 | P.PNADD ---
Addendum to Inpatient Note Additional information: CT findings noted Agree with urologist paln will follow intraop cultures
[2018-09-10] MEDS: Insulin NovoLOG Aspart Correctional Sugar Inj SQ SCH ×5 (03:20→22:41)
[2018-09-10] MEDS: Piperacil/Tazo 3.375 GM Premix 50 ML IV.SIG SCH ×4 (03:23→22:46)
[2018-09-10 07:42] LABS: Hematocrit 34.6 % (39.0-51.0); Hemoglobin 11.5 gm/dL (13.0-17.0); Mean Corpuscular HGB Conc 33.3 % (32.0-36.0); Mean Corpuscular Hemoglobin 29.3 pg (27.0-34.0); Mean Corpuscular Volume 87.9 fL (80.0-100.0); Mean Platelet Volume 7.2 fL (7.0-11.0); Platelet Count 316 th/mm3 (150-450); Red Blood Count 3.94 mil/mm3 (4.50-5.90); Red Cell Distribution Width 13.7 % (11.6-17.2); White Blood Count 13.5 th/mm3 (4.0-11.0)
[2018-09-10 08:00] LABS: Calcium 8.9 mg/dL (8.5-10.1); Potassium 3.5 meq/L (3.5-5.1)
[2018-09-10] MEDS: Collagenase Oint 30 GM Tube TOPICAL SCH (08:57)
[2018-09-10] MEDS: Senna/Docusate Sodium 8.6/50 MG Tablet PO SCH ×2 (08:57→22:42)
[2018-09-10] MEDS: Sodium Chloride 0.9% 2 ML Flush BID IV.FLUSH SCH ×2 (08:57→22:42)
[2018-09-10] MEDS ORDERED: Lidocaine PF 1% Inj 5 ML Syringe OTHER ONE (14:52)
[2018-09-10] MEDS ORDERED: fentaNYL Citrate Inj 100 MCG/2 ML Ampul ONE (16:38)
--- NOTE | 2018-09-10 16:44 | P.OP ---
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 Patient underwent a suprapubic tube insertion a few weeks ago but has an ongoing left inguinal abscess collection. Decision made to bring the patient to the operating room to undergo unroofing of left inguinal abscess with washout and debridement with placement of wound VAC. Risk and benefits were discussed preoperatively patient is willing to proceed. Patient brought the operating room and identified myself as Sang Donahue. He is placed in the dorsal lithotomy position, prepped draped in sterile fashion received preprocedure antibiotics and general LMA anesthesia was admitted. 15 blade was used to make the inguinal incision in the abscess cavity was identified. Pus was drained using the suction and then the pulse director safety council was then used to clean out the wound site. Curettes were were used to debride the necrotic tissue. Care was taken to avoid the femoral artery. A wound VAC was then placed into the left inguinal region and placed on intermittent suction. The patient tolerated procedure well and was awoken and extubated transferred recovery in stable condition. He will need to undergo wound VAC change in a couple days.
--- NOTE | 2018-09-10 18:00 | P.PNIM ---
Subjective Interval history: Patient underwent scheduled surgical exploration of wound and debridement today. Wound VAC was placed Physical Exam Vital signs: Vital Signs 09/09/18 19:55 09/09/18 20:00 09/09/18 23:55 Temperature 98.3 F Pulse Rate 75 79 69 Respiratory Rate 18 Blood Pressure 123/62 Pulse Oximetry 95 09/10/18 00:00 09/10/18 04:00 09/10/18 08:00 Temperature 98 F 98.8 F 98.2 F Pulse Rate 69 73 65 Respiratory Rate 18 18 20 Blood Pressure 120/61 120/61 134/65 Pulse Oximetry 97 97 96 09/10/18 12:00 09/10/18 16:31 09/10/18 16:45 Temperature 98.3 F 96.9 F L Pulse Rate 72 59 L 58 L Respiratory Rate 20 16 16 Blood Pressure 136/66 148/68 H 151/72 H Pulse Oximetry 97 100 100 09/10/18 17:00 Temperature 97.6 F Pulse Rate 63 Respiratory Rate 14 Blood Pressure 150/79 H Pulse Oximetry 99 Intake & Output 09/09/18 09/10/18 09/10/18 18:59 06:59 18:59 Intake Total 1210 / 1210 100 / 100 1750 / 1750 Output Total 1650 / 1650 Balance 1210 / 1210 100 / 100 100 / 100 Weight 85.6 kg Intake: IV 250 / 250 100 / 100 350 / 350 Diflucan 400 mg Premix Bag 200 200 / 200 200 / 200 ML @ 100 mls/hr IV.SIG Q24H [facility] Rx#:[id number] Zosyn 3.375 GM Premix 50 ML @ 50 / 50 100 / 100 150 / 150 100 mls/hr IV.SIG Q6H [facility] Rx#: [id number] Oral 960 / 960 0 / 0 Anesthesia Amount 1400 / 1400 Output: Urine 1300 / 1300 Estimated Blood Loss 50 / 50 Urine Amount (Catheter) 300 / 300 Suprapubic 300 / 300 Other: Date of Last Bowel Movement 09/10/18 09/10/18 # Bowel Movements 1 Narrative: GENERAL: Alert and oriented x3, no acute distress SKIN: Erythema and tenderness extending from left hip to left upper thigh involving groin HEAD: Normocephalic. Atraumatic NECK: Supple, trachea midline. No lymphadenopathy. EYES: No scleral icterus. No injection or drainage. CARDIOVASCULAR: Regular rate and rhythm without murmurs, gallops, or rubs. RESPIRATORY: Breath sounds equal bilaterally. No accessory muscle use. GASTROINTESTINAL: Abdomen soft, non-tender, nondistended. Colostomy present. Suprapubic catheter versus drain in place and lower abdomen MUSCULOSKELETAL: No cyanosis, no edema. SKIN: Warm and dry. Erythema at left inguinal area with some induration. Left ankle ulcer. NEURO: No focal neurological deficits. - Urinary Catheter Management Indwelling Urethral Catheter Cath placed during this visit: yes, but has since been removed by the nurse Reason for continuing: Chronic Urinary Retention Insertion date: 09/07/18 Insertion time: 16:00 Removal date: 09/10/18 Removal time: 16:00 Suprapubic Cath placed during this visit: yes Reason for continuing: Chronic Urinary Retention Insertion date: 09/03/18 Results - Labs CBC & Chem 7: 09/10/18 06:19 09/10/18 06:19 Laboratory Results - last 24 hr 09/09/18 09/10/18 09/10/18 20:05 03:13 06:19 WBC 13.5 H RBC 3.94 L Hgb 11.5 L Hct 34.6 L MCV 87.9 MCH 29.3 MCHC 33.3 RDW 13.7 Plt Count 316 MPV 7.2 Sodium Potassium Chloride Carbon Dioxide Anion Gap BUN Creatinine Estimated GFR POC Glucose 196 H 190 H Random Glucose Calcium 09/10/18 09/10/18 09/10/18 06:19 07:06 11:04 WBC RBC Hgb Hct MCV MCH MCHC RDW Plt Count MPV Sodium 140 Potassium 3.5 Chloride 105 Carbon Dioxide 27.0 Anion Gap 8 BUN 22 H Creatinine 1.07 Estimated GFR 69 L POC Glucose 134 H 193 H Random Glucose 140 H Calcium 8.9 09/10/18 09/10/18 16:33 17:37 WBC RBC Hgb Hct MCV MCH MCHC RDW Plt Count MPV Sodium Potassium Chloride Carbon Dioxide Anion Gap BUN Creatinine Estimated GFR POC Glucose 151 H 160 H Random Glucose Calcium - Procedures none Assessment and Plan - Plan Left fascicular cutaneous inguinal fistula Initially admitted for septic shock, OR on 09/03/2018 for suprapubic catheter placement Responded well to vancomycin and Zosyn, continuing Urology took patient for I&D of fistula and wound VAC placement 09/10/2018 Appreciate urology intervention Urinary tract infection Covered adequately by vancomycin and Zosyn Type 2 diabetes Accu-Cheks with sliding scale insulin coverage Diabetic diet Left lateral foot ankle ulceration Patient has been evaluated by podiatry Outpatient follow-up recommended Continue wound dressing changes Tinea cruris Continue nystatin cream Sacral/gluteal decub Continue wound care Colostomy Continue nursing management DVT Prophylaxis Heparin
[2018-09-11] MEDS: Piperacil/Tazo 3.375 GM Premix 50 ML IV.SIG SCH ×4 (05:30→22:55)
[2018-09-11] MEDS: Insulin NovoLOG Aspart Correctional Sugar Inj SQ SCH ×5 (05:30→21:10)
[2018-09-11 06:24] LABS: Hematocrit 33.6 % (39.0-51.0); Hemoglobin 11.3 gm/dL (13.0-17.0); Mean Corpuscular HGB Conc 33.5 % (32.0-36.0); Mean Corpuscular Hemoglobin 29.4 pg (27.0-34.0); Mean Corpuscular Volume 87.7 fL (80.0-100.0); Mean Platelet Volume 7.2 fL (7.0-11.0); Platelet Count 298 th/mm3 (150-450); Red Blood Count 3.83 mil/mm3 (4.50-5.90); Red Cell Distribution Width 13.9 % (11.6-17.2); White Blood Count 12.6 th/mm3 (4.0-11.0)
[2018-09-11] MEDS: Senna/Docusate Sodium 8.6/50 MG Tablet PO SCH ×2 (08:44→21:11)
[2018-09-11] MEDS: Sodium Chloride 0.9% 2 ML Flush BID IV.FLUSH SCH ×2 (08:49→21:11)
[2018-09-11] MEDS: Collagenase Oint 30 GM Tube TOPICAL SCH ×2 (09:22→11:11)
--- NOTE | 2018-09-11 10:06 | P.PNURO ---
Subjective Patient symptoms today: Pt seen and examined. Feels well. Objective Vital Signs: Vital Signs 09/10/18 12:00 09/10/18 16:00 09/10/18 16:31 Temperature 98.3 F 96.9 F L Pulse Rate 72 67 59 L Respiratory Rate 20 16 Blood Pressure 136/66 148/68 H Pulse Oximetry 97 100 09/10/18 16:45 09/10/18 17:00 09/10/18 20:00 Temperature 97.6 F 97.7 F Pulse Rate 58 L 63 72 Respiratory Rate 16 14 16 Blood Pressure 151/72 H 150/79 H 129/66 Pulse Oximetry 100 99 100 09/11/18 00:00 09/11/18 04:00 09/11/18 08:00 Temperature 97.1 F L 98.1 F 98.6 F Pulse Rate 68 68 74 Respiratory Rate 16 16 17 Blood Pressure 131/59 L 118/61 116/59 L Pulse Oximetry 98 99 97 Intake & Output 09/10/18 09/11/18 09/11/18 18:59 06:59 18:59 Intake Total 3870 / 3870 250 / 250 Output Total 2650 / 2650 2200 / 2200 Balance 1220 / 1220 -1950 / -1950 Weight 91.4 kg Intake: IV 1350 / 1350 250 / 250 Diflucan 400 mg Premix Bag 200 200 / 200 200 / 200 ML @ 100 mls/hr IV.SIG Q24H [facility] Rx#:[id number] Zosyn 3.375 GM Premix 50 ML @ 150 / 150 50 / 50 100 mls/hr IV.SIG Q6H [facility] Rx#: [id number] Oral 1120 / 1120 Anesthesia Amount 1400 / 1400 Output: Urine 1300 / 1300 2200 / 2200 Estimated Blood Loss 50 / 50 Urine Amount (Catheter) 1100 / 1100 Suprapubic 1100 / 1100 Stool Amount (Stoma) 200 / 200 Left Upper Abdomen 200 / 200 Other: Date of Last Bowel Movement 09/10/18 09/10/18 Result Diagrams: 09/11/18 06:08 09/10/18 06:19 Medications and IVs: Active Medications Generic Name Dose Route Start Last Admin Trade Name Freq PRN Reason Stop Dose Admin Acetaminophen 650 mg 08/28/18 15:32 08/29/18 04:19 Tylenol PO 650 mg Q4H PRN Administration Temp > 100.4 Bisacodyl 10 mg 08/28/18 15:32 Dulcolax Supp RECTAL DAILY PRN SEVERE CONSITIPATION Chlorhexidine Gluconate 3 pack 09/09/18 16:06 Chlorhexidine 2% Cloth TOPICAL 09/12/18 16:05 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 [facility] Collagenase 1 applicatio 08/30/18 09:00 09/10/18 08:57 Santyl Oint TOPICAL 1 applicatio DAILY [facility] Administration Dextrose 50 ml 08/28/18 15:28 D50w Vial IV.PUSH UNSCH PRN PER HYPOGLYCEMIA PROTOCOL Glucagon 1 mg 08/28/18 15:28 Glucagon Inj OTHER PRN PRN for Hypoglycemia Protocol Piperacillin/Tazobactam/Dextrose 50 mls @ 100 mls/hr 08/28/18 22:00 09/11/18 05:30 Zosyn 3.375 Gm Premix IV.SIG 100 mls/hr Q6H [facility] Administration Sodium Chloride 500 mls @ 30 mls/hr 09/03/18 09:00 09/03/18 09:00 Ns Inj IV.SIG Not Given .Q10H [facility] Fluconazole 200 mls @ 100 mls/hr 09/04/18 20:00 09/11/18 00:40 Diflucan 400 Mg Premix Bag IV.SIG Infused Q24H [facility] Infusion Sodium Chloride 500 mls @ 30 mls/hr 09/09/18 17:00 09/10/18 17:32 Ns Inj IV.SIG Not Given .Q10H [facility] Insulin Aspart 0 unit 08/28/18 17:00 09/11/18 08:47 Novolog Insulin Correctional Sugar Inj SQ Not Given ACHS AND 3AM [facility] Protocol Insulin Human Isoph/Insulin Regular 14 units 09/02/18 09:10 09/11/18 08:44 Novolin 70/30 Inj SQ 14 units BID@0800,1700 [facility] Administration Lactulose 30 ml 08/28/18 15:32 Lactulose Liq PO DAILY PRN SEVERE CONSITIPATION Metoprolol Tartrate 25 mg 09/09/18 16:06 Lopressor PO 09/12/18 16:05 AUTOMOTIVE 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 [facility] Miscellaneous Information 0 each 09/10/18 16:36 09/10/18 18:33 Misc Nursing Information OTHER 09/11/18 16:35 1 each UNSCH PRN Administration SEE LABEL COMMENTS Nystatin 1 applicatio 08/28/18 18:00 09/11/18 08:51 Mycostatin Cream TOPICAL 1 applicatio QID [facility] Administration Ondansetron HCl 4 mg 08/28/18 15:32 Zofran Inj IV.PUSH Q6H PRN NAUSEA OR VOMITING Povidone Iodine 1 applicatio 09/09/18 16:06 Betadine 5% Antisepsis Kit EACH NARE 09/12/18 16:05 AUTOMOTIVE 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 [facility] Senna/Docusate Sodium 1 tab 08/28/18 21:00 09/11/18 08:44 Diane-Colace PO Not Given BID [facility] Sennosides 17.2 mg 08/28/18 15:32 Senokot PO Q12H PRN Moderate Constipation Sodium Chloride 2 ml 09/03/18 21:00 09/11/18 08:49 Ns Flush IV.FLUSH 2 ml BID [facility] Administration Sodium Chloride 2 ml 09/03/18 17:03 Ns Flush IV.FLUSH PRN PRN FLUSH AFTER USING IV ACCESS Terbutaline Sulfate 1 mg 08/29/18 06:19 Brethine Inj SQ UNSCH PRN For Extravasation Objective Remarks: Abd:soft,nt,nd Lainez in place Right groin area with small drainage for now. 08/31 Abd:soft,nt,nd Left inquinal cellulitis noted which is improving. Crepitus noted. No signs of gangreen Lainez now with clear urine. Pt reports no drainage from left groin site 09/01 Abd:soft,nt,nd. Crepitus not palpated today. Lainez with clear urine. Purulent drainage from wound site. 09/02 Abd:soft,nt,nd. Crepitus not palpated today. Lainez with clear urine. Purulent drainage from wound site. 09/04 Abd:soft,nt,nd Packing in place with drainage SP tube draining clear urine 09/07 Abd:soft,nt,nd Cellulitis resolving Still with purlent drainage from left groin site SP tube clear 09/08 Abd:soft,nt,nd Cellulitis resolviing but still with collection in right inquinal wound Still with purlent drainage from left groin site SP tube clear Lainez with minimal drainage 09/09 Abd:soft,nt,nd Cellulitis resolviing but still with collection in right inquinal wound Still with purlent drainage from left groin site SP tube clear Lainez with minimal drainage 09/11 Abd:soft,nt,nd Wound VAC in place SP tube: clear urine Assessment and Plan - Plan 68 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 Once infection clears with need cystoscopy. May need SP tube placement in future. Will leave lainez for now. Air noted in SQ tissue over lower abdomen. WBC count is improving. Continue to monitor clinically. Hopefully urine drainage from left groin will stop after lainez has been placed. Will monitor. Continue IV abx for now. B/C positive: gram + Repeat UCx pending Will follow. 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 No drainage noted since placement of lainez catheter Continue IV abx per ID recommendations Continue present care. 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 CT shows still prominent collection in left inquinal canal Will need VAC placement in OR to resolve collection. Will plan for this week as OR time allows. 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 CT shows still prominent collection in left inquinal canal Plan for OR tomorrow NPO after MN 09/11 Stable s/p excison and debridement of left inquinal wound with VAC placement Will need return to OR on Friday to washout wound and change VAC
--- NOTE | 2018-09-11 16:28 | P.PNIM ---
Subjective Interval history: Patient tolerated surgery on his wound well yesterday, he will have repeat surgery for wound VAC revision. He has requested pain medication today. Physical Exam Vital signs: Vital Signs 09/10/18 16:31 09/10/18 16:45 09/10/18 17:00 Temperature 96.9 F L 97.6 F Pulse Rate 59 L 58 L 63 Respiratory Rate 16 16 14 Blood Pressure 148/68 H 151/72 H 150/79 H Pulse Oximetry 100 100 99 09/10/18 20:00 09/11/18 00:00 09/11/18 04:00 Temperature 97.7 F 97.1 F L 98.1 F Pulse Rate 72 68 68 Respiratory Rate 16 16 16 Blood Pressure 129/66 131/59 L 118/61 Pulse Oximetry 100 98 99 09/11/18 08:00 09/11/18 12:00 Temperature 98.6 F 99 F Pulse Rate 74 80 Respiratory Rate 17 17 Blood Pressure 116/59 L 113/59 L Pulse Oximetry 97 96 Intake & Output 09/10/18 09/11/18 09/11/18 18:59 06:59 18:59 Intake Total 3870 / 3870 300 / 300 50 / 50 Output Total 2650 / 2650 2200 / 2200 Balance 1220 / 1220 -1900 / -1900 50 / 50 Weight 91.4 kg Intake: IV 1350 / 1350 300 / 300 50 / 50 Diflucan 400 mg Premix Bag 200 200 / 200 200 / 200 ML @ 100 mls/hr IV.SIG Q24H [facility] Rx#:[id number] Zosyn 3.375 GM Premix 50 ML @ 150 / 150 100 / 100 50 / 50 100 mls/hr IV.SIG Q6H ON LICENSE OF [facility] Rx#: [id number] Oral 1120 / 1120 Anesthesia Amount 1400 / 1400 Output: Urine 1300 / 1300 2200 / 2200 Estimated Blood Loss 50 / 50 Urine Amount (Catheter) 1100 / 1100 Suprapubic 1100 / 1100 Stool Amount (Stoma) 200 / 200 Left Upper Abdomen 200 / 200 Other: Date of Last Bowel Movement 09/10/18 09/10/18 09/10/18 Narrative: GENERAL: Alert and oriented x3, no acute distress SKIN: Reduced erythema following debridement surgery and placement of wound VAC HEAD: Normocephalic. Atraumatic NECK: Supple, trachea midline. No lymphadenopathy. EYES: No scleral icterus. No injection or drainage. CARDIOVASCULAR: Regular rate and rhythm without murmurs, gallops, or rubs. RESPIRATORY: Breath sounds equal bilaterally. No accessory muscle use. GASTROINTESTINAL: Abdomen soft, non-tender, nondistended. Colostomy present. Suprapubic catheter versus drain in place and lower abdomen MUSCULOSKELETAL: No cyanosis, no edema. SKIN: Warm and dry. Erythema at left inguinal area with some induration. Left ankle ulcer. NEURO: No focal neurological deficits. - Urinary Catheter Management Indwelling Urethral Catheter Cath placed during this visit: yes, but has since been removed by the nurse Reason for continuing: Chronic Urinary Retention Insertion date: 09/07/18 Insertion time: 16:00 Removal date: 09/10/18 Removal time: 16:00 Suprapubic Cath placed during this visit: yes Reason for continuing: Chronic Urinary Retention Insertion date: 09/03/18 Results - Labs CBC & Chem 7: 09/11/18 06:08 09/10/18 06:19 Laboratory Results - last 24 hr 09/10/18 09/10/18 09/10/18 16:33 17:37 21:15 WBC RBC Hgb Hct MCV MCH MCHC RDW Plt Count MPV POC Glucose 151 H 160 H 142 H 09/11/18 09/11/18 09/11/18 05:26 06:08 07:32 WBC 12.6 H RBC 3.83 L Hgb 11.3 L Hct 33.6 L MCV 87.7 MCH 29.4 MCHC 33.5 RDW 13.9 Plt Count 298 MPV 7.2 POC Glucose 127 H 136 H 09/11/18 12:02 WBC RBC Hgb Hct MCV MCH MCHC RDW Plt Count MPV POC Glucose 216 H - Procedures none Assessment and Plan - Plan Left fascicular cutaneous inguinal fistula Initially admitted for septic shock, OR on 09/03/2018 for suprapubic catheter placement Responded well to vancomycin and Zosyn, continuing Urology took patient for I&D of fistula and wound VAC placement 09/10/2018 Erythema is reduced and there is a slight downward trend of leukocytosis Hydrocodone added for pain control Appreciate urology intervention Urinary tract infection Covered adequately by vancomycin and Zosyn Type 2 diabetes Accu-Cheks with sliding scale insulin coverage Diabetic diet Left lateral foot ankle ulceration Patient has been evaluated by podiatry Outpatient follow-up recommended Continue wound dressing changes Tinea cruris Continue nystatin cream Sacral/gluteal decub Continue wound care Colostomy Continue nursing management DVT Prophylaxis Heparin
[2018-09-11] MEDS ORDERED: Chlorhexidine Gluconate 2% 1 Pack (2 Cloths) TOPICAL ONE (18:21)
[2018-09-11] MEDS ORDERED: Metoprolol Tartrate 25 MG Tablet PO ONE (18:21)
[2018-09-11] MEDS ORDERED: Sodium Chlor 0.9% Inj 500 ML IV.SIG SCH (19:00)
[2018-09-12] MEDS: Piperacil/Tazo 3.375 GM Premix 50 ML IV.SIG SCH ×4 (04:43→21:02)
[2018-09-12] MEDS: Insulin NovoLOG Aspart Correctional Sugar Inj SQ SCH ×5 (04:49→21:02)
[2018-09-12] MEDS: Sodium Chloride 0.9% 2 ML Flush BID IV.FLUSH SCH ×2 (09:40→21:02)
[2018-09-12 09:43] LABS: Hematocrit 36.3 % (39.0-51.0); Hemoglobin 11.7 gm/dL (13.0-17.0); Mean Corpuscular HGB Conc 32.3 % (32.0-36.0); Mean Corpuscular Hemoglobin 29.5 pg (27.0-34.0); Mean Corpuscular Volume 91.3 fL (80.0-100.0); Mean Platelet Volume 7.5 fL (7.0-11.0); Platelet Count 276 th/mm3 (150-450); Red Blood Count 3.98 mil/mm3 (4.50-5.90); Red Cell Distribution Width 14.1 % (11.6-17.2); White Blood Count 11.2 th/mm3 (4.0-11.0)
[2018-09-12] MEDS: Senna/Docusate Sodium 8.6/50 MG Tablet PO SCH ×2 (09:47→21:02)
[2018-09-12] MEDS: Collagenase Oint 30 GM Tube TOPICAL SCH ×2 (09:48→14:54)
--- NOTE | 2018-09-12 11:19 | P.PN ---
Subjective Interval history: Patient doing well overnight, no concerns per RN. Patient is tolerating PO and has no current concerns. Colostomy functioning well as well as suprapubic catheter. Physical Exam Vital signs: Vital Signs 09/11/18 12:00 09/11/18 16:00 09/11/18 20:00 Temperature 99 F 98.1 F 98.2 F Pulse Rate 80 81 75 Respiratory Rate 17 17 19 Blood Pressure 113/59 L 111/57 L 123/57 L Pulse Oximetry 96 98 97 09/12/18 00:00 09/12/18 04:00 09/12/18 08:00 Temperature 97.4 F L 98.1 F 97.6 F Pulse Rate 69 77 65 Respiratory Rate 21 17 19 Blood Pressure 118/65 120/56 L 132/65 Pulse Oximetry 97 97 99 Intake & Output 09/11/18 09/12/18 09/12/18 18:59 06:59 18:59 Intake Total 100 / 100 300 / 300 Output Total 1900 / 1900 1999 / 1999 Balance -1800 / -1800 -1700 / -1700 Weight 91.4 kg Intake: IV 100 / 100 300 / 300 Diflucan 400 mg Premix Bag 200 200 / 200 ML @ 100 mls/hr IV.SIG Q24H [facility] Rx#:[id number] Zosyn 3.375 GM Premix 50 ML @ 100 / 100 100 / 100 100 mls/hr IV.SIG Q6H [facility] Rx#: [id number] Output: Urine 550 / 550 1999 / 1999 Urine Amount (Catheter) 1350 / 1350 Suprapubic 1350 / 1350 Other: Date of Last Bowel Movement 09/10/18 09/10/18 # Bowel Movements 0 # Incontinent Bowel Movements 0 Narrative: GENERAL: Well-nourished male, in no acute distress, lying comfortably in bed SKIN: Reduced erythema following debridement surgery and placement of wound VAC HEENT: Normocephalic. Atraumatic. PERRLA, No scleral icterus. No injection or drainage. MOM. CARDIOVASCULAR: Regular rate and rhythm without murmurs, gallops, or rubs. RESPIRATORY: Breath sounds equal bilaterally. No accessory muscle use. GASTROINTESTINAL: Abdomen soft, non-tender, nondistended. Colostomy present with formed stool. Suprapubic catheter drain in place. MUSCULOSKELETAL: No cyanosis, no edema. SKIN: Warm and dry. Left inguinal dressing C/D/I. NEURO: AAO x3, no focal neurological deficits. - Urinary Catheter Management Indwelling Urethral Catheter Cath placed during this visit: yes, but has since been removed by the nurse Reason for continuing: Chronic Urinary Retention Insertion date: 09/07/18 Insertion time: 16:00 Removal date: 09/10/18 Removal time: 16:00 Suprapubic Cath placed during this visit: yes Reason for continuing: Chronic Urinary Retention Insertion date: 09/03/18 Results - Labs CBC & Chem 7: 09/12/18 08:18 09/10/18 06:19 Laboratory Results - last 24 hr 09/11/18 09/11/18 09/11/18 12:02 16:32 21:09 WBC RBC Hgb Hct MCV MCH MCHC RDW Plt Count MPV POC Glucose 216 H 125 H 118 H 09/12/18 09/12/18 09/12/18 04:45 07:38 08:18 WBC 11.2 H RBC 3.98 L Hgb 11.7 L Hct 36.3 L MCV 91.3 D MCH 29.5 MCHC 32.3 RDW 14.1 Plt Count 276 MPV 7.5 POC Glucose 112 H 120 H - Procedures none Assessment and Plan - Assessment (1) UTI (urinary tract infection) Code(s): N39.0 - Urinary tract infection, site not specified Status: Acute (2) Sepsis Code(s): A41.9 - Sepsis, unspecified organism Status: Acute (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 Left Fascicular Cutaneous Inguinal Fistula Initially admitted for septic shock, OR on 09/03/2018 for suprapubic catheter placement Responding well to Zosyn started on 08/28, will continue s/p E&D of fistula and wound VAC placement on 09/10/2018 Per Uro, plan for OR on Friday to washout wound and change VAC NPO at [place] Cont. Hydrocodone PRN pain control Appreciate urology intervention Per Uro Reccs 09/11: Stable s/p excison and debridement of left inquinal wound with VAC placement Will need return to OR on Friday to washout wound and change VAC 2. Urinary tract infection Continue Zosyn started on 08/28 and Fluconazole started 09/04 Neg Urine Cx 09/05 x48hrs, final Urine Cx 08/30 Rachel Await ID reccs for further mgmt Per ID Reccs 09/05: cont zosyn, dc vancomycin cont high dose floconazole repeat blood clx if fever, or other sign of sepsis repeat urine clx 3. Type 2 Diabetes Stable, BS 136, 118, 120 Diabetic diet Cont. Insulin 70/30 14U BID and sliding scale insulin 4. Left lateral foot ankle ulceration Patient has been evaluated by podiatry Outpatient follow-up recommended Continue wound dressing changes 5. Tinea cruris Continue Nystatin cream until symptoms resolve Rx started on 08/28 6. Sacral/gluteal decub Continue wound care 7. Colostomy Continue nursing management 8. Anemia Hgb 11.2 from 12.6 We will obtain iron studies Continue to monitor 9. DVT Prophylaxis: Heparin, will hold until postop, SCD's 10. Dispo: await Uro reccs, NPO at [facility] for washout wound and change VAC per Uro Code Status: full Discussed Condition With: patient, RN (2) Sepsis Qualifiers: Sepsis type: sepsis due to unspecified organism Qualified Code(s): A41.9 - Sepsis, unspecified organism (5) Diabetes Qualifiers: Diabetes mellitus type: type 2
--- NOTE | 2018-09-12 14:08 | P.PNID ---
Subjective Remarks: afebrile blood clx with corynebacteria 2/2 C. glabrata from the fistula drainage clx sp Cystogram, flexible cystoscopy, antegrade urethrogram, placement of suprapubic tube catheter, irrigation and packing of left inguinal wound s/p excison and debridement of left inquinal wound with VAC placement Plan to return to OR on Friday to washout wound and change VAC Antibiotics: fluconazole 400 zosyn Allergies/Adverse Reactions: Allergies Influenza Virus Vaccines Allergy (Severe, Verified 08/28/18 12:12) Anaphylaxis *MDRO Multi-Drug Resistant Organism Adverse Reaction (Unknown, Uncoded 08/28/18 12:12) Flushing 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 Objective Vital Signs 09/11/18 16:00 09/11/18 20:00 09/12/18 00:00 Temperature 98.1 F 98.2 F 97.4 F L Pulse Rate 81 75 69 Respiratory Rate 17 19 21 Blood Pressure 111/57 L 123/57 L 118/65 Pulse Oximetry 98 97 97 09/12/18 04:00 09/12/18 08:00 09/12/18 12:00 Temperature 98.1 F 97.6 F 97.2 F L Pulse Rate 77 65 76 Respiratory Rate 17 19 19 Blood Pressure 120/56 L 132/65 146/85 H Pulse Oximetry 97 99 98 Intake & Output 09/11/18 09/12/18 09/12/18 18:59 06:59 18:59 Intake Total 100 / 100 300 / 300 50 / 50 Output Total 1900 / 1900 1999 / 1999 Balance -1800 / -1800 -1700 / -1700 50 / 50 Weight 91.4 kg Intake: IV 100 / 100 300 / 300 50 / 50 Diflucan 400 mg Premix Bag 200 200 / 200 ML @ 100 mls/hr IV.SIG Q24H [facility] Rx#:[id number] Zosyn 3.375 GM Premix 50 ML @ 100 / 100 100 / 100 50 / 50 100 mls/hr IV.SIG Q6H [facility] Rx#: [id number] Output: Urine 550 / 550 1999 Urine Amount (Catheter) 1350 / 1350 Suprapubic 1350 / 1350 Other: Date of Last Bowel Movement 09/10/18 09/10/18 09/10/18 # Bowel Movements 0 # Incontinent Bowel Movements 0 Lab - Hematology Results 09/11/18 09/12/18 06:08 08:18 WBC 12.6 H 11.2 H RBC 3.83 L 3.98 L Hgb 11.3 L 11.7 L Hct 33.6 L 36.3 L MCV 87.7 91.3 D MCH 29.4 29.5 MCHC 33.5 32.3 RDW 13.9 14.1 Plt Count 298 276 MPV 7.2 7.5 Lab - Chemistry Results 09/10/18 09/10/18 09/10/18 16:33 17:37 21:15 POC Glucose 151 H 160 H 142 H 09/11/18 09/11/18 09/11/18 05:26 07:32 12:02 POC Glucose 127 H 136 H 216 H 09/11/18 09/11/18 09/12/18 16:32 21:09 04:45 POC Glucose 125 H 118 H 112 H 09/12/18 09/12/18 07:38 11:43 POC Glucose 120 H 168 H Imaging: ITS Impressions Chest X-Ray 08/28/18 12:34 CONCLUSION: No acute cardiopulmonary disease. Abdomen/Pelvis CT 08/29/18 00:00 CONCLUSION: 1. Abnormal gas collection along the left inguinal region which extends out laterally into the subcutaneous fat with surrounding inflammatory change. There is an abnormal gas collection also noted along the base of the scrotum and perineum likely is continuous with this.. There is soft tissue swelling and thickening around the base of the penis. No drainable fluid collection. 2. Bladder wall thickening. 3. Small bilateral pleural effusions. 4. Mildly nonspecific bowel gas pattern most characteristic of an ileus. Ankle X-Ray 08/29/18 00:00 CONCLUSION: Chronic change as described above. Soft tissue swelling or bony destruction is not seen at the ankle. Foot X-Ray 08/29/18 09:40 CONCLUSION: Chronic change as described above. An area of acute bony destruction or acute periosteal reaction is not clearly seen on this plain film examination. Cystogram 09/03/18 00:00 CONCLUSION: 1. Small size bladder with significant trabeculations consistent with chronic bladder outlet obstruction 2. Reflux of contrast into an enlarged distal right ureter. Pelvis CT 09/07/18 00:00 CONCLUSION: 1. More organized appearing gas collection with some fluid and surrounding skin thickening and inflammatory stranding extending from the left lower quadrant subcutaneous tissues into the left inguinal region and into the scrotum. A small amount of subcutaneous air is also seen near the base of the penis on the right as before. The findings are quite concerning for infection with gas-forming organism. 2. The bladder is decompressed and there is prominent wall thickening. The possibility of clot within the bladder should be entertained given the high density. There is mild dilatation of the right ureter. Physical Exam: GENERAL: NAD SKIN: Warm and dry. No rash HEAD: Atraumatic. Normocephalic. EYES: Pupils equal and round. No scleral icterus. No injection or drainage. ENT: Mucous membranes pink and moist. CARDIOVASCULAR: Regular rate and rhythm. No murmurs RESPIRATORY: No accessory muscle use. Clear to auscultation. Breath sounds equal bilaterally. GASTROINTESTINAL: Abdomen soft, non-tender, nondistended. Hepatic and splenic margins not palpable. : L groin with VAC in place w serosang d/c L inguinal area with marked resolution of erythem,a, edema SP cath with clear yellow urine NO odor scrotul w/o edema, erythema MUSCULOSKELETAL: Extremities without clubbing, cyanosis, or edema. dressing in place b/l feet NEUROLOGICAL: Awake and alert. 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
--- NOTE | 2018-09-12 20:06 | P.PNPOD ---
Subjective Interval history: left lateral malleolus ulcer Review of Systems All other systems reviewed negative except as stated in HPI Physical Exam Vital signs: Vital Signs 09/12/18 00:00 09/12/18 04:00 09/12/18 08:00 Temperature 97.4 F L 98.1 F 97.6 F Pulse Rate 69 77 70 Respiratory Rate 21 17 19 Blood Pressure 118/65 120/56 L 132/65 Pulse Oximetry 97 97 99 09/12/18 12:00 09/12/18 16:00 Temperature 97.2 F L 98.0 F Pulse Rate 67 64 Respiratory Rate 19 19 Blood Pressure 146/85 H 135/70 Pulse Oximetry 98 99 Intake & Output 09/12/18 09/12/18 09/13/18 06:59 18:59 06:59 Intake Total 300 / 300 100 / 100 Output Total 1999 2300 / 2300 Balance -1700 / -1700 -2200 / -2200 Weight 91.4 kg Intake: IV 300 / 300 100 / 100 Diflucan 400 mg Premix Bag 200 200 / 200 ML @ 100 mls/hr IV.SIG Q24H [facility] Rx#:[id number] Zosyn 3.375 GM Premix 50 ML @ 100 / 100 100 / 100 100 mls/hr IV.SIG Q6H [facility] Rx#: [id number] Output: Urine 1999 2300 / 2300 Other: Date of Last Bowel Movement 09/10/18 09/10/18 # Bowel Movements 0 # Incontinent Bowel Movements 0 Narrative: stable appearance. Wound measures approximately 2cm x 0.6cm and has fibrotic base to lateral malleolus. palpable bony prominence here. Mild pain to palpation. No purulence or sign of acute infection present. palpable pedal pulses. skin texture/turgor within normal limits. Medications and Allergies Active Medications: Active Medications Acetaminophen (Tylenol) 650 mg PO Q4H PRN PRN Reason: Temp > 100.4 Last Admin: 08/29/18 04:19 Dose: 650 mg Hydrocodone Bitart/Acetaminophen (Freedom 5/325) 1 tab PO Q6H PRN PRN Reason: Acute Pain Bisacodyl (Dulcolax Supp) 10 mg RECTAL DAILY PRN PRN Reason: SEVERE CONSITIPATION Collagenase (Santyl Oint) 1 applicatio TOPICAL DAILY [facility] Last Admin: 09/12/18 14:54 Dose: 1 applicatio Dextrose (D50w Vial) 50 ml IV.PUSH UNSCH PRN PRN Reason: PER HYPOGLYCEMIA PROTOCOL Glucagon (Glucagon Inj) 1 mg OTHER PRN PRN PRN Reason: for Hypoglycemia Protocol Piperacillin/Tazobactam/Dextrose (Zosyn 3.375 Gm Premix) 50 mls @ 100 mls/hr IV.SIG Q6H [facility] Last Infusion: 09/12/18 17:41 Dose: Infused Sodium Chloride (Ns Inj) 500 mls @ 30 mls/hr IV.SIG .Q10H [facility] Last Admin: 09/03/18 09:00 Dose: Not Given Fluconazole (Diflucan 400 Mg Premix Bag) 200 mls @ 100 mls/hr IV.SIG Q24H [facility] Last Infusion: 09/12/18 06:32 Dose: Infused Sodium Chloride (Ns Inj) 500 mls @ 30 mls/hr IV.SIG .Q10H [facility] Last Admin: 09/10/18 17:32 Dose: Not Given Sodium Chloride (Ns Inj) 500 mls @ 30 mls/hr IV.SIG .Q10H [facility] Insulin Aspart (Novolog Insulin Correctional Sugar Inj) 0 unit SQ ACHS AND 3AM [facility]; Protocol Last Admin: 09/12/18 18:01 Dose: Not Given Insulin Human Isoph/Insulin Regular (Novolin 70/30 Inj) 14 units SQ BID@0800, 1700 [facility] Last Admin: 09/12/18 17:36 Dose: 14 units Lactulose (Lactulose Liq) 30 ml PO DAILY PRN PRN Reason: SEVERE CONSITIPATION Nystatin (Mycostatin Cream) 1 applicatio TOPICAL QID [facility] Last Admin: 09/12/18 17:37 Dose: 1 applicatio Ondansetron HCl (Zofran Inj) 4 mg IV.PUSH Q6H PRN PRN Reason: NAUSEA OR VOMITING Senna/Docusate Sodium (Diane-Colace) 1 tab PO BID [facility] Last Admin: 09/12/18 09:47 Dose: 1 tab Sennosides (Senokot) 17.2 mg PO Q12H PRN PRN Reason: Moderate Constipation Sodium Chloride (Ns Flush) 2 ml IV.FLUSH BID [facility] Last Admin: 09/12/18 09:40 Dose: 2 ml Sodium Chloride (Ns Flush) 2 ml IV.FLUSH PRN PRN PRN Reason: FLUSH AFTER USING IV ACCESS Terbutaline Sulfate (Brethine Inj) 1 mg SQ UNSCH PRN PRN Reason: For Extravasation Allergies Allergy/AdvReac Type Severity Reaction Status Date / Time Influenza Virus Vaccines Allergy Severe Anaphylaxis Verified 08/28/18 12:12 *MDRO Multi-Drug Resistant AdvReac Unknown Flushing Uncoded 08/28/18 12:12 Organism Home Medications Medication Instructions Recorded Confirmed Type No Known Home Medications 08/28/18 08/28/18 History Results - Labs CBC & Chem 7: 09/12/18 08:18 09/10/18 06:19 Laboratory Results - last 24 hr 09/11/18 09/12/18 09/12/18 21:09 04:45 07:38 WBC RBC Hgb Hct MCV MCH MCHC RDW Plt Count MPV POC Glucose 118 H 112 H 120 H 09/12/18 09/12/18 09/12/18 08:18 11:43 16:18 WBC 11.2 H RBC 3.98 L Hgb 11.7 L Hct 36.3 L MCV 91.3 D MCH 29.5 MCHC 32.3 RDW 14.1 Plt Count 276 MPV 7.5 POC Glucose 168 H 123 H - Procedures none Assessment and Plan - Assessment (1) Exostosis of left fibula Code(s): M89.8X6 - Other specified disorders of bone, lower leg Status: Acute (2) Chronic ulcer of left ankle with fat layer exposed Code(s): L97.322 - Non-pressure chronic ulcer of left ankle with fat layer exposed Status: Acute - Plan Discussed risks, benefits, complications of surgery Patient agreed to move forward NPO after midnight tonight Plan to follow Dr Cassidy after vac change with procedure for ostectomy of left fibula, excision of wound left ankle and skin plasty with primary closure left ankle tomorrow morning.
[2018-09-13] MEDS: Insulin NovoLOG Aspart Correctional Sugar Inj SQ SCH ×5 (04:40→21:48)
[2018-09-13] MEDS: Piperacil/Tazo 3.375 GM Premix 50 ML IV.SIG SCH ×3 (04:41→16:40)
[2018-09-13] MEDS ORDERED: Chlorhexidine Gluconate 2% 1 Pack (2 Cloths) TOPICAL ONE (04:45)
[2018-09-13] MEDS ORDERED: Sodium Chlor 0.9% Inj 500 ML IV.CONT ONE (04:45)
[2018-09-13] MEDS ORDERED: Lidocaine PF 1% Inj 5 ML Syringe OTHER ONE ×2 (07:50→13:54)
[2018-09-13] MEDS: Sodium Chloride 0.9% 2 ML Flush BID IV.FLUSH SCH ×2 (08:14→21:50)
[2018-09-13] MEDS: Senna/Docusate Sodium 8.6/50 MG Tablet PO SCH ×2 (08:15→21:37)
[2018-09-13] MEDS: Collagenase Oint 30 GM Tube TOPICAL SCH (08:16)
--- NOTE | 2018-09-13 08:47 | P.OP ---
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 Patient underwent washout with curettage and VAC placement last and returned again to the OR for re-washout and change the VAC. Risk and benefits were discussed preoperatively patient is willing to proceed. Patient brought the operating room placed in the dorsolithotomy position, prepped draped in sterile fashion, had received preprocedure antibiotics and general LMA anesthesia was administered. The the wound was washed out with normal saline and debrided of any residual necrotic tissue. Once that was done , the VAC was then replaced under suction. The seal indicated no evidence of any leak. The patient tolerated procedure well was awoken and transferred recovery in stable condition. He will need to undergo another VAC change in a few days.
[2018-09-13] MEDS ORDERED: fentaNYL Citrate Inj 100 MCG/2 ML Ampul ONE (08:52)
[2018-09-13 11:17] LABS: Baso # (Auto) 0.1 th/mm3 (0.0-0.2); Baso % (Auto) 0.7 % (0.0-2.0); Eos # (Auto) 0.2 th/mm3 (0.0-0.4); Hematocrit 35.2 % (39.0-51.0); Hemoglobin 11.8 gm/dL (13.0-17.0); Lymph # (Auto) 1.7 th/mm3 (1.0-4.8); Mean Corpuscular HGB Conc 33.5 % (32.0-36.0); Mean Corpuscular Hemoglobin 29.9 pg (27.0-34.0); Mean Corpuscular Volume 89.3 fL (80.0-100.0); Mean Platelet Volume 7.6 fL (7.0-11.0); Mono # (Auto) 0.5 th/mm3 (0.0-0.9); Mono % (Auto) 6.4 % (0.0-8.0); Neut # (Auto) 5.1 th/mm3 (1.8-7.7); Neut % (Auto) 66.9 % (16.0-70.0); Platelet Count 263 th/mm3 (150-450); Red Blood Count 3.94 mil/mm3 (4.50-5.90); Red Cell Distribution Width 14.2 % (11.6-17.2); White Blood Count 7.6 th/mm3 (4.0-11.0)
[2018-09-13 11:43] LABS: Albumin 2.4 g/dL (3.4-5.0); Anion Gap 8 meq/L (5-15); Aspartate Aminotransferase 17 U/L (15-37); Blood Urea Nitrogen 19 mg/dL (7-18); Calcium 9.1 mg/dL (8.5-10.1); Carbon Dioxide 26.9 meq/L (21.0-32.0); Chloride 105 meq/L (98-107); Glomerular Filtration Rate 72 mL/min (>89); Glucose,Random 108 mg/dL (74-106); Sodium 140 meq/L (136-145)
[2018-09-13 11:44] LABS: Alanine Aminotransferase 12 U/L (12-78); Iron 49 mcg/dL (65-175)
[2018-09-13 11:47] LABS: % Iron Saturation 19.9 % (20-50); Alkaline Phosphatase 49 U/L (45-117); Total Iron Binding Capacity 246 mcg/dL (250-450); Total Protein 7.5 g/dL (6.4-8.2)
[2018-09-13] MEDS ORDERED: Bupivacaine PF 0.25% Inj 30 ML Vial ONE (13:47)
--- NOTE | 2018-09-13 14:34 | P.BOP ---
- Preoperative Diagnosis (1) Exostosis of left fibula (2) Chronic ulcer of left ankle with fat layer exposed - Postoperative Diagnosis (1) Exostosis of left fibula (2) Chronic ulcer of left ankle with fat layer exposed Date of procedure: 09/13/18 Procedure: 1. excision/biopsy of wound with skin plasty left lateral ankle 2. ostectomy left lateral malleolus Ulceration measured approximately 2cm x 0.6cm. Excision of ulcer utilizing soft tissue flap down to level of bone and planing of lateral malleolus with saw blade, followed by irrigation, transposition of soft tissue, and primary closure with 3-0 nylon suture. Dressing with xeroform, 4x4, cast padding, rebecca and doughnut offloading padding to lateral ankle. Weightbearing as tolerated left lower extremity in surgical shoe. Keep clean, dry, intact No further surgery anticipated. Follow up in 1 week for dressing change in clinic. No tourniquet utilized. Clear for discharge from podiatry when ready per primary team Anesthesia: GETA, local (10mL 0.25% marcaine plain) Surgeon: Riky Christiansen DPM Supervisor Rice Milling: staff Estimated blood loss (mL): 5 Pathology: other (1. wound and bone left lateral ankle) Condition: stable Disposition: PACU
--- NOTE | 2018-09-13 14:52 | P.PN ---
Subjective Interval history: Patient doing well. Patient has been n.p.o. since midnight, no concerns. No overnight events per RN. Physical Exam Vital signs: Vital Signs 09/12/18 16:00 09/12/18 20:00 09/13/18 00:00 Temperature 98.0 F 98.0 F 97.6 F Pulse Rate 64 67 62 Respiratory Rate 19 20 18 Blood Pressure 135/70 126/60 122/59 L Pulse Oximetry 99 97 100 09/13/18 04:00 09/13/18 08:45 09/13/18 09:00 Temperature 97.9 F 97 F L Pulse Rate 67 73 66 Respiratory Rate 18 20 15 Blood Pressure 133/64 118/65 120/61 Pulse Oximetry 98 99 98 09/13/18 09:14 09/13/18 09:15 09/13/18 12:00 Temperature 98.2 F 98.0 F Pulse Rate 72 69 70 Respiratory Rate 16 18 Blood Pressure 143/66 H 125/64 Pulse Oximetry 98 97 09/13/18 13:18 Temperature 99.2 F Pulse Rate 75 Respiratory Rate 18 Blood Pressure 123/63 Pulse Oximetry 97 Intake & Output 09/12/18 09/13/18 09/13/18 18:59 06:59 18:59 Intake Total 100 / 100 50 / 50 700 / 700 Output Total 2300 / 2300 2050 / 2050 255 / 255 Balance -2200 / -2199 -1999 / -1999 445 / 445 Weight 90.7 kg Intake: IV 100 / 100 50 / 50 300 / 300 Diflucan 400 mg Premix Bag 200 200 / 200 ML @ 100 mls/hr IV.SIG Q24H SHREYAS Rx#:[id number] Zosyn 3.375 GM Premix 50 ML @ 100 / 100 50 / 50 100 / 100 100 mls/hr IV.SIG Q6H SHREYAS Rx#: [id number] Anesthesia Amount 400 / 400 Output: Urine 2300 / 2300 1900 / 1900 Stool 150 / 150 Estimated Blood Loss 5 / 5 Urine Amount (Catheter) 250 / 250 Suprapubic 250 / 250 Other: Mode Setting Left Groin Continuous Date of Last Bowel Movement 09/10/18 09/10/18 09/13/18 Narrative: GENERAL: Well-nourished male, in no acute distress, lying comfortably in bed SKIN: Reduced erythema following debridement surgery and placement of wound VAC HEENT: Normocephalic. Atraumatic. PERRLA, No scleral icterus. No injection or drainage. MOM. CARDIOVASCULAR: Regular rate and rhythm without murmurs, gallops, or rubs. RESPIRATORY: Breath sounds equal bilaterally. No accessory muscle use. GASTROINTESTINAL: Abdomen soft, non-tender, nondistended. Colostomy present with formed stool. Suprapubic catheter drain in place. MUSCULOSKELETAL: No cyanosis, no edema. SKIN: Warm and dry. Left inguinal dressing C/D/I. NEURO: AAO x3, no focal neurological deficits. - Urinary Catheter Management Indwelling Urethral Catheter Cath placed during this visit: yes, but has since been removed by the nurse Reason for continuing: Chronic Urinary Retention Insertion date: 09/07/18 Insertion time: 16:00 Removal date: 09/10/18 Removal time: 16:00 Suprapubic Cath placed during this visit: yes Reason for continuing: Hourly intake/output Insertion date: 09/03/18 Results - Labs CBC & Chem 7: 09/13/18 09:28 09/13/18 09:28 Laboratory Results - last 24 hr 09/12/18 09/12/18 09/13/18 16:18 21:00 04:24 WBC RBC Hgb Hct MCV MCH MCHC RDW Plt Count MPV Neut % (Auto) Lymph % (Auto) [place] % (Auto) Eos % (Auto) Baso % (Auto) Neut # (Auto) Lymph # (Auto) [place] # (Auto) Eos # (Auto) Baso # (Auto) WBC Differential Differential Comment Sodium Potassium Chloride Carbon Dioxide Anion Gap BUN Creatinine Estimated GFR POC Glucose 123 H 126 H 104 Random Glucose Calcium Iron TIBC % Saturation Total Bilirubin AST ALT Alkaline Phosphatase Total Protein Albumin 09/13/18 09/13/18 09/13/18 07:07 08:50 09:28 WBC RBC Hgb Hct MCV MCH MCHC RDW Plt Count MPV Neut % (Auto) Lymph % (Auto) [place] % (Auto) Eos % (Auto) Baso % (Auto) Neut # (Auto) Lymph # (Auto) [place] # (Auto) Eos # (Auto) Baso # (Auto) WBC Differential Differential Comment Sodium 140 Potassium 4.0 Chloride 105 Carbon Dioxide 26.9 Anion Gap 8 BUN 19 H Creatinine 1.03 Estimated GFR 72 L POC Glucose 110 116 H Random Glucose 108 H Calcium 9.1 Iron 49 L TIBC 246 L % Saturation 19.9 L Total Bilirubin 0.3 AST 17 ALT 12 Alkaline Phosphatase 49 Total Protein 7.5 Albumin 2.4 L 09/13/18 09/13/18 09/13/18 09:28 11:35 13:15 WBC 7.6 RBC 3.94 L Hgb 11.8 L Hct 35.2 L MCV 89.3 MCH 29.9 MCHC 33.5 RDW 14.2 Plt Count 263 MPV 7.6 Neut % (Auto) 66.9 Lymph % (Auto) 23.0 [place] % (Auto) 6.4 Eos % (Auto) 3.0 Baso % (Auto) 0.7 Neut # (Auto) 5.1 Lymph # (Auto) 1.7 [place] # (Auto) 0.5 Eos # (Auto) 0.2 Baso # (Auto) 0.1 WBC Differential . 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 1. Left Fascicular Cutaneous Inguinal Fistula Initially admitted for septic shock, OR on 09/03/2018 for suprapubic catheter placement Responding well to Zosyn started on 08/28, will continue s/p E&D of fistula and wound VAC placement on 09/10/2018 Per Uro, plan for OR this AM to washout wound and change VAC NPO at ID for surgery this morning Cont. Hydrocodone PRN pain control Appreciate Urology assistance with management Per Uro Reccs 09/11: Stable s/p excison and debridement of left inquinal wound with VAC placement Will need return to OR on Friday to washout wound and change VAC 2. Urinary tract infection Continue Zosyn started on 08/28 and Fluconazole started 09/04 Neg Urine Cx 09/05 x48hrs, final Urine Cx 08/30 Rachel Await ID reccs for further mgmt Per ID Reccs 09/12: cont zosyn, cont high dose floconazole repeat blood clx if fever, or other sign of sepsis repeat wound culture in OR 3. Type 2 Diabetes Stable, BS stable Diabetic diet Cont. Insulin 70/30 14U BID and sliding scale insulin 4. Left lateral foot ankle ulceration Patient has been evaluated by podiatry Plan for OR this AM, see below Continue wound dressing changes Per Podiatry Reccs on 09/12: Plan to follow Dr Cassidy after vac change with procedure for ostectomy of left fibula, excision of wound left ankle and skin plasty with primary closure left ankle tomorrow morning. 5. Tinea cruris Continue Nystatin cream until symptoms resolve Rx started on 08/28 6. Sacral/gluteal decub Continue wound care 7. Colostomy Continue nursing management 8. Anemia, iron deficiency Diagnosed per iron studies Hgb 11.8 from 11.7 Starting ferrous sulfate 325mg BID Continue to monitor 9. DVT Prophylaxis: SCD's 10. Dispo: await Uro reccs, NPO at ID for washout wound and change VAC per Uro Code Status: full Discussed Condition With: patient, RN (2) Sepsis Qualifiers: Sepsis type: sepsis due to unspecified organism Qualified Code(s): A41.9 - Sepsis, unspecified organism (5) Diabetes Qualifiers: Diabetes mellitus type: type 2
--- NOTE | 2018-09-13 16:22 | XR ---
EXAM DATE: 09/13/2018 12:00 AM EDT AGE/SEX: 68 years / Male INDICATIONS: Post op left ankle. CLINICAL DATA: This is the patient's subsequent encounter. Patient reports that signs and symptoms h ave been present for 1 week and indicates a pain score of 2/10. MEDICAL/SURGICAL HISTORY: . Osteoarthritis. Gastroesophageal reflux disease. Arthritis. Megaco nura. Diabetes. . Colostomy COMPARISON: [facility]PO, FOOT COMPLETE LEFT 3V, 08/29/2018. . FINDINGS: Chronic likely posttraumatic changes in the medial malleolus. Bony structures are intact and in todd l alignment. Joints are intact without dislocation. There are degenerative changes noted about the a nkle. Osseous density is normal. Soft tissues are unremarkable. Plantar calcaneal spurring. Extensiv e vascular calcifications. No radiopaque foreign bodies seen. CONCLUSION: 1. Chronic likely posttraumatic and degenerative changes, as above. Electronically signed by: Sudhir Velez MD 09/13/2018 4:21 PM EDT
[2018-09-13] MEDS: Ferrous Sulfate 325 MG Tablet PO SCH (16:41)
[2018-09-14] MEDS: Insulin NovoLOG Aspart Correctional Sugar Inj SQ SCH ×5 (03:34→23:35)
[2018-09-14] MEDS: Piperacil/Tazo 3.375 GM Premix 50 ML IV.SIG SCH ×4 (05:25→17:40)
[2018-09-14 07:31] LABS: Baso # (Auto) 0.1 th/mm3 (0.0-0.2); Baso % (Auto) 0.8 % (0.0-2.0); Eos # (Auto) 0.3 th/mm3 (0.0-0.4); Eos % (Auto) 2.5 % (0.0-4.0); Hematocrit 35.1 % (39.0-51.0); Hemoglobin 11.6 gm/dL (13.0-17.0); Lymph # (Auto) 2.2 th/mm3 (1.0-4.8); Lymph % (Auto) 20.9 % (9.0-44.0); Mean Corpuscular HGB Conc 32.9 % (32.0-36.0); Mean Corpuscular Hemoglobin 29.3 pg (27.0-34.0); Mean Corpuscular Volume 88.9 fL (80.0-100.0); Mean Platelet Volume 7.4 fL (7.0-11.0); Mono # (Auto) 0.8 th/mm3 (0.0-0.9); Neut % (Auto) 67.8 % (16.0-70.0); Platelet Count 265 th/mm3 (150-450); Red Blood Count 3.95 mil/mm3 (4.50-5.90); Red Cell Distribution Width 13.9 % (11.6-17.2); White Blood Count 10.3 th/mm3 (4.0-11.0)
[2018-09-14 07:53] LABS: Albumin 2.4 g/dL (3.4-5.0); Anion Gap 7 meq/L (5-15); Aspartate Aminotransferase 13 U/L (15-37); Blood Urea Nitrogen 20 mg/dL (7-18); Calcium 8.7 mg/dL (8.5-10.1); Carbon Dioxide 27.8 meq/L (21.0-32.0); Chloride 103 meq/L (98-107); Glomerular Filtration Rate 69 mL/min (>89); Glucose,Random 108 mg/dL (74-106); Potassium 3.9 meq/L (3.5-5.1); Sodium 138 meq/L (136-145)
[2018-09-14 07:54] LABS: Alanine Aminotransferase 12 U/L (12-78)
[2018-09-14 07:56] LABS: Alkaline Phosphatase 48 U/L (45-117); Total Protein 7.4 g/dL (6.4-8.2)
--- NOTE | 2018-09-14 08:44 | P.PNURO ---
Subjective Patient symptoms today: Pt seen and examined. Feels well today. Objective Vital Signs: Vital Signs 09/13/18 08:45 09/13/18 09:00 09/13/18 09:14 Temperature 97 F L Pulse Rate 73 66 72 Respiratory Rate 20 15 Blood Pressure 118/65 120/61 Pulse Oximetry 99 98 09/13/18 09:15 09/13/18 12:00 09/13/18 13:18 Temperature 98.2 F 98.0 F 99.2 F Pulse Rate 69 72 75 Respiratory Rate 16 18 18 Blood Pressure 143/66 H 125/64 123/63 Pulse Oximetry 98 97 97 09/13/18 14:45 09/13/18 15:00 09/13/18 15:15 Temperature 97.6 F Pulse Rate 76 74 74 Respiratory Rate 16 16 16 Blood Pressure 113/67 107/53 L 104/52 L Pulse Oximetry 98 99 98 09/13/18 17:41 09/13/18 18:13 09/13/18 20:00 Temperature 97.9 F 98.2 F Pulse Rate 85 73 76 Respiratory Rate 18 20 Blood Pressure 126/61 128/64 Pulse Oximetry 98 97 09/14/18 00:00 09/14/18 04:00 Temperature 98.1 F 97.9 F Pulse Rate 77 77 Respiratory Rate 20 20 Blood Pressure 121/60 134/65 Pulse Oximetry 97 98 Intake & Output 09/13/18 09/14/18 09/14/18 18:59 06:59 18:59 Intake Total 1180 / 1180 350 / 350 Output Total 605 / 605 2500 / 2500 Balance 575 / 575 -2150 / -2150 Intake: IV 300 / 300 350 / 350 Diflucan 400 mg Premix Bag 200 200 / 200 200 / 200 ML @ 100 mls/hr IV.SIG Q24H SHREYAS Rx#:[id number] Zosyn 3.375 GM Premix 50 ML @ 100 / 100 150 / 150 100 mls/hr IV.SIG Q6H SHREYAS Rx#: [id number] Oral 480 / 480 Anesthesia Amount 400 / 400 Output: Urine 2500 / 2500 Estimated Blood Loss 5 / 5 Urine Amount (Catheter) 600 / 600 Suprapubic 600 / 600 Other: Mode Setting Left Groin Continuous Date of Last Bowel Movement 09/13/18 09/13/18 # Bowel Movements 0 Result Diagrams: 09/14/18 06:35 09/14/18 06:35 Imaging: Impressions Ankle X-Ray 09/13/18 00:00 CONCLUSION: 1. Chronic likely posttraumatic and degenerative changes, as above. Medications and IVs: Active Medications Generic Name Dose Route Start Last Admin Trade Name Freq PRN Reason Stop Dose Admin Acetaminophen 650 mg 08/28/18 15:32 08/29/18 04:19 Tylenol PO 650 mg Q4H PRN Administration Temp > 100.4 Hydrocodone Bitart/Acetaminophen 1 tab 09/11/18 16:25 [place] 5/325 PO Q6H PRN Acute Pain Bisacodyl 10 mg 08/28/18 15:32 Dulcolax Supp RECTAL DAILY PRN SEVERE CONSITIPATION Collagenase 1 applicatio 08/30/18 09:00 09/13/18 08:16 Santyl Oint TOPICAL Not Given DAILY SHREYAS Dextrose 50 ml 08/28/18 15:28 D50w Vial IV.PUSH UNSCH PRN PER HYPOGLYCEMIA PROTOCOL Ferrous Sulfate 325 mg 09/13/18 17:00 09/13/18 16:41 Ferosul PO 325 mg BID@1200,1700 SHREYAS Administration Glucagon 1 mg 08/28/18 15:28 Glucagon Inj OTHER PRN PRN for Hypoglycemia Protocol Piperacillin/Tazobactam/Dextrose 50 mls @ 100 mls/hr 08/28/18 22:00 09/14/18 05:57 Zosyn 3.375 Gm Premix IV.SIG Infused Q6H SHREYAS Infusion Fluconazole 200 mls @ 100 mls/hr 09/04/18 20:00 09/13/18 23:27 Diflucan 400 Mg Premix Bag IV.SIG Infused Q24H SHREYAS Infusion Insulin Aspart 0 unit 08/28/18 17:00 09/14/18 03:34 Novolog Insulin Correctional Sugar Inj SQ Not Given ACHS AND 3AM SHREYAS Protocol Insulin Human Isoph/Insulin Regular 14 units 09/02/18 09:10 09/13/18 16:42 Novolin 70/30 Inj SQ 14 units BID@0800,1700 SHREYAS Administration Lactulose 30 ml 08/28/18 15:32 Lactulose Liq PO DAILY PRN SEVERE CONSITIPATION Miscellaneous Information 0 each 09/13/18 08:50 Misc Nursing Information OTHER 09/14/18 08:49 UNSCH PRN SEE LABEL COMMENTS Miscellaneous Information 1 each 09/13/18 16:07 [facility] [place] [facility] Information OTHER 09/14/18 16:07 UNSCH PRN SEE LABEL COMMENTS Nystatin 1 applicatio 08/28/18 18:00 09/13/18 21:37 Mycostatin Cream TOPICAL Not Given QID SHREYAS Ondansetron HCl 4 mg 08/28/18 15:32 Zofran Inj IV.PUSH Q6H PRN NAUSEA OR VOMITING Senna/Docusate Sodium 1 tab 08/28/18 21:00 09/13/18 21:37 Diane-Colace PO 1 tab BID SHREYAS Administration Sennosides 17.2 mg 08/28/18 15:32 Senokot PO Q12H PRN Moderate Constipation Sodium Chloride 2 ml 09/03/18 21:00 09/13/18 21:50 Ns Flush IV.FLUSH 2 ml BID SHREYAS Administration Sodium Chloride 2 ml 09/03/18 17:03 Ns Flush IV.FLUSH PRN PRN FLUSH AFTER USING IV ACCESS Terbutaline Sulfate 1 mg 08/29/18 06:19 Brethine Inj SQ UNSCH PRN For Extravasation Objective Remarks: Abd:soft,nt,nd Lainez in place Right groin area with small drainage for now. 08/31 Abd:soft,nt,nd Left inquinal cellulitis noted which is improving. Crepitus noted. No signs of gangreen Lainez now with clear urine. Pt reports no drainage from left groin site 09/01 Abd:soft,nt,nd. Crepitus not palpated today. Lainez with clear urine. Purulent drainage from wound site. 09/02 Abd:soft,nt,nd. Crepitus not palpated today. Lainez with clear urine. Purulent drainage from wound site. 09/04 Abd:soft,nt,nd Packing in place with drainage SP tube draining clear urine 09/07 Abd:soft,nt,nd Cellulitis resolving Still with purlent drainage from left groin site SP tube clear 09/08 Abd:soft,nt,nd Cellulitis resolviing but still with collection in right inquinal wound Still with purlent drainage from left groin site SP tube clear Lainez with minimal drainage 09/09 Abd:soft,nt,nd Cellulitis resolviing but still with collection in right inquinal wound Still with purlent drainage from left groin site SP tube clear Lainez with minimal drainage 09/11 Abd:soft,nt,nd Wound VAC in place SP tube: clear urine 09/14 Abd:soft,nt,nd Ostomy working well VAC in good position; working well; no leak SP tube: urine clear Assessment and Plan - Plan 68 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 Once infection clears with need cystoscopy. May need SP tube placement in future. Will leave lainez for now. Air noted in SQ tissue over lower abdomen. WBC count is improving. Continue to monitor clinically. Hopefully urine drainage from left groin will stop after lainez has been placed. Will monitor. Continue IV abx for now. B/C positive: gram + Repeat UCx pending Will follow. 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 No drainage noted since placement of lainez catheter Continue IV abx per ID recommendations Continue present care. 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 CT shows still prominent collection in left inquinal canal Will need VAC placement in OR to resolve collection. Will plan for this week as OR time allows. 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 CT shows still prominent collection in left inquinal canal Plan for OR tomorrow NPO after MN 09/11 Stable s/p excison and debridement of left inquinal wound with VAC placement Will need return to OR on Friday to washout wound and change VAC 09/14 Stable s/p washout with VAC change yesterday OOB Friday in OR for VAC change
[2018-09-14] MEDS: Sodium Chloride 0.9% 2 ML Flush BID IV.FLUSH SCH ×2 (09:07→23:39)
[2018-09-14] MEDS: Senna/Docusate Sodium 8.6/50 MG Tablet PO SCH ×2 (09:08→23:47)
[2018-09-14] MEDS: Collagenase Oint 30 GM Tube TOPICAL SCH (09:08)
[2018-09-14] MEDS: Ferrous Sulfate 325 MG Tablet PO SCH ×2 (12:00→17:19)
--- NOTE | 2018-09-14 13:48 | P.PN ---
Subjective Interval history: Patient doing well. Reports that he is tolerating p.o., Ellis is in place, colostomy bag functioning well. No overnight events per RN. Physical Exam Vital signs: Vital Signs 09/13/18 14:45 09/13/18 15:00 09/13/18 15:15 Temperature 97.6 F Pulse Rate 76 74 74 Respiratory Rate 16 16 16 Blood Pressure 113/67 107/53 L 104/52 L Pulse Oximetry 98 99 98 09/13/18 17:41 09/13/18 18:13 09/13/18 20:00 Temperature 97.9 F 98.2 F Pulse Rate 85 73 76 Respiratory Rate 18 20 Blood Pressure 126/61 128/64 Pulse Oximetry 98 97 09/14/18 00:00 09/14/18 04:00 09/14/18 08:00 Temperature 98.1 F 97.9 F 98.3 F Pulse Rate 77 77 72 Respiratory Rate 20 20 19 Blood Pressure 121/60 134/65 115/56 L Pulse Oximetry 97 98 98 Intake & Output 09/13/18 09/14/18 09/14/18 18:59 06:59 18:59 Intake Total 1180 / 1180 350 / 350 Output Total 605 / 605 2500 / 2500 Balance 575 / 575 -2150 / -2150 Intake: IV 300 / 300 350 / 350 Diflucan 400 mg Premix Bag 200 200 / 200 200 / 200 ML @ 100 mls/hr IV.SIG Q24H SHREYAS Rx#:[id number] Zosyn 3.375 GM Premix 50 ML @ 100 / 100 150 / 150 100 mls/hr IV.SIG Q6H SHREYAS Rx#: [id number] Oral 480 / 480 Anesthesia Amount 400 / 400 Output: Urine 2500 / 2500 Estimated Blood Loss 5 / 5 Urine Amount (Catheter) 600 / 600 Suprapubic 600 / 600 Other: Mode Setting Left Groin Continuous Date of Last Bowel Movement 09/13/18 09/13/18 # Bowel Movements 0 Narrative: GENERAL: Well-nourished male, in no acute distress, sitting in chair HEENT: Normocephalic. Atraumatic. PERRLA, No scleral icterus. No injection or drainage. MOM. CARDIOVASCULAR: Regular rate and rhythm without murmurs, gallops, or rubs. RESPIRATORY: Breath sounds equal bilaterally. No accessory muscle use. GASTROINTESTINAL: Abdomen soft, non-tender, nondistended. Colostomy present with formed stool. Suprapubic catheter drain in place. MUSCULOSKELETAL: No cyanosis, no edema. SKIN: Warm and dry. Left inguinal dressing C/D/I with wound vac. L ankle with dressing C/D/I. NEURO: AAO x3, no focal neurological deficits. - Urinary Catheter Management Indwelling Urethral Catheter Cath placed during this visit: yes, but has since been removed by the nurse Reason for continuing: Chronic Urinary Retention Insertion date: 09/07/18 Insertion time: 16:00 Removal date: 09/10/18 Removal time: 16:00 Suprapubic Cath placed during this visit: yes Reason for continuing: Chronic Urinary Retention Insertion date: 09/03/18 Results - Labs CBC & Chem 7: 09/14/18 06:35 09/14/18 06:35 Laboratory Results - last 24 hr 09/13/18 09/13/18 09/13/18 15:14 16:38 21:43 WBC RBC Hgb Hct MCV MCH MCHC RDW Plt Count MPV Neut % (Auto) Lymph % (Auto) [place] % (Auto) Eos % (Auto) Baso % (Auto) Neut # (Auto) Lymph # (Auto) [place] # (Auto) Eos # (Auto) Baso # (Auto) WBC Differential Differential Comment Sodium Potassium Chloride Carbon Dioxide Anion Gap BUN Creatinine Estimated GFR POC Glucose 114 H 144 H 301 H Random Glucose Calcium Total Bilirubin AST ALT Alkaline Phosphatase Total Protein Albumin 09/14/18 09/14/18 09/14/18 02:53 06:35 06:35 WBC 10.3 RBC 3.95 L Hgb 11.6 L Hct 35.1 L MCV 88.9 MCH 29.3 MCHC 32.9 RDW 13.9 Plt Count 265 MPV 7.4 Neut % (Auto) 67.8 Lymph % (Auto) 20.9 [place] % (Auto) 8.0 Eos % (Auto) 2.5 Baso % (Auto) 0.8 Neut # (Auto) 7.0 Lymph # (Auto) 2.2 [place] # (Auto) 0.8 Eos # (Auto) 0.3 Baso # (Auto) 0.1 WBC Differential . Differential Comment Auto diff final Sodium 138 Potassium 3.9 Chloride 103 Carbon Dioxide 27.8 Anion Gap 7 BUN 20 H Creatinine 1.07 Estimated GFR 69 L POC Glucose 135 H Random Glucose 108 H Calcium 8.7 Total Bilirubin 0.4 AST 13 L ALT 12 Alkaline Phosphatase 48 Total Protein 7.4 Albumin 2.4 L 09/14/18 08:47 WBC RBC Hgb Hct MCV MCH MCHC RDW Plt Count MPV Neut % (Auto) Lymph % (Auto) [place] % (Auto) Eos % (Auto) Baso % (Auto) Neut # (Auto) Lymph # (Auto) [place] # (Auto) Eos # (Auto) Baso # (Auto) WBC Differential Differential Comment Sodium Potassium Chloride Carbon Dioxide Anion Gap BUN Creatinine Estimated GFR POC Glucose 146 H Random Glucose Calcium Total Bilirubin AST ALT Alkaline Phosphatase Total Protein Albumin - Imaging Impressions Ankle X-Ray 09/13/18 00:00 CONCLUSION: 1. Chronic likely posttraumatic and degenerative changes, as above. 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 1. Left Fascicular Cutaneous Inguinal Fistula Initially admitted for septic shock, OR on 09/03/2018 for suprapubic catheter placement Responding well to Zosyn started on 08/28, will continue s/p E&D of fistula and wound VAC placement on 09/10/2018, washout with VAC change on 09/13, OR planned for Friday for Vac change Cont. Hydrocodone PRN pain control Appreciate Urology assistance with management Per Uro Reccs 09/14: Stable s/p washout with VAC change yesterday OOB Friday in OR for VAC change 2. Urinary tract infection Continue Fluconazole started 09/04 Neg Urine Cx 09/05 x48hrs, final Urine Cx 08/30 Rachel Await ID reccs for further mgmt Per ID Reccs 09/12: cont zosyn, cont high dose floconazole repeat blood clx if fever, or other sign of sepsis repeat wound culture in OR 3. Type 2 Diabetes Stable, BS stable when diet followed Diabetic diet Cont. Insulin 70/30 14U BID and sliding scale insulin 4. Left lateral foot ankle ulceration s/p excision/biopsy of wound with skin plasty left lateral ankle, ostectomy left lateral malleolus on 09/13, per Podiatry Needs dressing change in 1 week per the recommendations Per Podiatry Reccs on 09/13: excision/biopsy of wound with skin plasty left lateral ankle ostectomy left lateral malleolus Weightbearing as tolerated left lower extremity in surgical shoe. Keep clean, dry, intact No further surgery anticipated. Follow up in 1 week for dressing change in clinic. No tourniquet utilized. Clear for discharge from podiatry when ready per primary team 5. Tinea cruris, improved Continue Nystatin cream until symptoms resolve Rx started on 08/28 6. Sacral/gluteal decub Continue wound care 7. Colostomy Continue nursing management 8. Anemia, iron deficiency Diagnosed per iron studies Hgb 11.6 from 11.8 Cont. Ferrous Sulfate 325mg BID Continue to monitor 9. DVT Prophylaxis: SCD's 10. Dispo: await Uro reccs, plan for Rpt wound VAC on Friday per Uro. Code Status: full Discussed Condition With: patient, RN (2) Sepsis Qualifiers: Sepsis type: sepsis due to unspecified organism Qualified Code(s): A41.9 - Sepsis, unspecified organism (5) Diabetes Qualifiers: Diabetes mellitus type: type 2
--- NOTE | 2018-09-14 16:29 | P.PNID ---
Subjective Remarks: afebrile C. glabrata from the fistula drainage clx sp Cystogram, flexible cystoscopy, antegrade urethrogram, placement of suprapubic tube catheter, irrigation and packing of left inguinal wound s/p excison and debridement of left inquinal wound with VAC placement sp surgery on Friday sp washout wound and change VAC - dw Dr Cassidy. No purulence Antibiotics: fluconazole 400 zosyn Allergies/Adverse Reactions: Allergies Influenza Virus Vaccines Allergy (Severe, Verified 08/28/18 12:12) Anaphylaxis *MDRO Multi-Drug Resistant Organism Adverse Reaction (Unknown, Uncoded 08/28/18 12:12) Flushing 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 Objective Vital Signs 09/13/18 17:41 09/13/18 18:13 09/13/18 20:00 Temperature 97.9 F 98.2 F Pulse Rate 85 73 76 Respiratory Rate 18 20 Blood Pressure 126/61 128/64 Pulse Oximetry 98 97 09/14/18 00:00 09/14/18 04:00 09/14/18 08:00 Temperature 98.1 F 97.9 F 98.3 F Pulse Rate 77 77 72 Respiratory Rate 20 20 19 Blood Pressure 121/60 134/65 115/56 L Pulse Oximetry 97 98 98 09/14/18 12:00 Temperature 98.1 F Pulse Rate 76 Respiratory Rate 18 Blood Pressure 104/64 Pulse Oximetry 98 Intake & Output 09/13/18 09/14/18 09/14/18 18:59 06:59 18:59 Intake Total 1180 / 1180 350 / 350 Output Total 605 / 605 2500 / 2500 Balance 575 / 575 -2150 / -2150 Intake: IV 300 / 300 350 / 350 Diflucan 400 mg Premix Bag 200 200 / 200 200 / 200 ML @ 100 mls/hr IV.SIG Q24H [facility] Rx#:[id number] Zosyn 3.375 GM Premix 50 ML @ 100 / 100 150 / 150 100 mls/hr IV.SIG Q6H [facility] Rx#: [id number] Oral 480 / 480 Anesthesia Amount 400 / 400 Output: Urine 2500 / 2500 Estimated Blood Loss 5 / 5 Urine Amount (Catheter) 600 / 600 Suprapubic 600 / 600 Other: Mode Setting Left Groin Continuous Date of Last Bowel Movement 09/13/18 09/13/18 09/13/18 # Bowel Movements 0 Lab - Hematology Results 09/13/18 09/14/18 09:28 06:35 WBC 7.6 10.3 RBC 3.94 L 3.95 L Hgb 11.8 L 11.6 L Hct 35.2 L 35.1 L MCV 89.3 88.9 MCH 29.9 29.3 MCHC 33.5 32.9 RDW 14.2 13.9 Plt Count 263 265 MPV 7.6 7.4 Neut % (Auto) 66.9 67.8 Lymph % (Auto) 23.0 20.9 [place] % (Auto) 6.4 8.0 Eos % (Auto) 3.0 2.5 Baso % (Auto) 0.7 0.8 Neut # (Auto) 5.1 7.0 Lymph # (Auto) 1.7 2.2 [place] # (Auto) 0.5 0.8 Eos # (Auto) 0.2 0.3 Baso # (Auto) 0.1 0.1 WBC Differential . . Differential Comment Auto diff final Auto diff final Lab - Chemistry Results 09/12/18 09/13/18 09/13/18 21:00 04:24 07:07 Sodium Potassium Chloride Carbon Dioxide Anion Gap BUN Creatinine Estimated GFR POC Glucose 126 H 104 110 Random Glucose Calcium Iron TIBC % Saturation Total Bilirubin AST ALT Alkaline Phosphatase Total Protein Albumin 09/13/18 09/13/18 09/13/18 08:50 09:28 11:35 Sodium 140 Potassium 4.0 Chloride 105 Carbon Dioxide 26.9 Anion Gap 8 BUN 19 H Creatinine 1.03 Estimated GFR 72 L POC Glucose 116 H 110 Random Glucose 108 H Calcium 9.1 Iron 49 L TIBC 246 L % Saturation 19.9 L Total Bilirubin 0.3 AST 17 ALT 12 Alkaline Phosphatase 49 Total Protein 7.5 Albumin 2.4 L 09/13/18 09/13/18 09/13/18 13:15 15:14 16:38 Sodium Potassium Chloride Carbon Dioxide Anion Gap BUN Creatinine Estimated GFR POC Glucose 113 H 114 H 144 H Random Glucose Calcium Iron TIBC % Saturation Total Bilirubin AST ALT Alkaline Phosphatase Total Protein Albumin 09/13/18 09/14/18 09/14/18 21:43 02:53 06:35 Sodium 138 Potassium 3.9 Chloride 103 Carbon Dioxide 27.8 Anion Gap 7 BUN 20 H Creatinine 1.07 Estimated GFR 69 L POC Glucose 301 H 135 H Random Glucose 108 H Calcium 8.7 Iron TIBC % Saturation Total Bilirubin 0.4 AST 13 L ALT 12 Alkaline Phosphatase 48 Total Protein 7.4 Albumin 2.4 L 09/14/18 09/14/18 08:47 13:35 Sodium Potassium Chloride Carbon Dioxide Anion Gap BUN Creatinine Estimated GFR POC Glucose 146 H 154 H Random Glucose Calcium Iron TIBC % Saturation Total Bilirubin AST ALT Alkaline Phosphatase Total Protein Albumin Imaging: ITS Impressions Chest X-Ray 08/28/18 12:34 CONCLUSION: No acute cardiopulmonary disease. Abdomen/Pelvis CT 08/29/18 00:00 CONCLUSION: 1. Abnormal gas collection along the left inguinal region which extends out laterally into the subcutaneous fat with surrounding inflammatory change. There is an abnormal gas collection also noted along the base of the scrotum and perineum likely is continuous with this.. There is soft tissue swelling and thickening around the base of the penis. No drainable fluid collection. 2. Bladder wall thickening. 3. Small bilateral pleural effusions. 4. Mildly nonspecific bowel gas pattern most characteristic of an ileus. Foot X-Ray 08/29/18 09:40 CONCLUSION: Chronic change as described above. An area of acute bony destruction or acute periosteal reaction is not clearly seen on this plain film examination. Cystogram 09/03/18 00:00 CONCLUSION: 1. Small size bladder with significant trabeculations consistent with chronic bladder outlet obstruction 2. Reflux of contrast into an enlarged distal right ureter. Pelvis CT 09/07/18 00:00 CONCLUSION: 1. More organized appearing gas collection with some fluid and surrounding skin thickening and inflammatory stranding extending from the left lower quadrant subcutaneous tissues into the left inguinal region and into the scrotum. A small amount of subcutaneous air is also seen near the base of the penis on the right as before. The findings are quite concerning for infection with gas-forming organism. 2. The bladder is decompressed and there is prominent wall thickening. The possibility of clot within the bladder should be entertained given the high density. There is mild dilatation of the right ureter. Ankle X-Ray 09/13/18 00:00 CONCLUSION: 1. Chronic likely posttraumatic and degenerative changes, as above. Physical Exam: GENERAL: NAD SKIN: Warm and dry. No rash HEAD: Atraumatic. Normocephalic. EYES: Pupils equal and round. No scleral icterus. No injection or drainage. ENT: Mucous membranes pink and moist. CARDIOVASCULAR: Regular rate and rhythm. No murmurs RESPIRATORY: No accessory muscle use. Clear to auscultation. Breath sounds equal bilaterally. GASTROINTESTINAL: Abdomen soft, non-tender, nondistended. : L groin with VAC in place w serosang d/c L inguinal area with marked resolution of erythem,a, edema SP cath with clear yellow urine NO odor scrotul w/o edema, erythema MUSCULOSKELETAL: Extremities without clubbing, cyanosis, or edema. dressing in place b/l feet NEUROLOGICAL: Awake and alert. 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
--- NOTE | 2018-09-14 18:10 | CT ---
EXAM DATE: 09/14/2018 4:46 PM EDT AGE/SEX: 68 years / Male INDICATIONS: Pelvic pain. Follow up left groin abscess. CLINICAL DATA: This is the patient's initial encounter. Patient reports that signs and symptoms have been present for 1 day and indicates a pain score of 3/10. MEDICAL/SURGICAL HISTORY: None. . suprapubic catheter RADIATION DOSE: 15.31 CTDI (mGy) [place] [facility] [place]07/2018. . TECHNIQUE: Multiple contiguous axial images were obtained through the pelvis without contrast. Imag es were obtained using multiple row detector helical technique. . Using automated exposure control an d adjustment of the mA and/or kV according to patient size, radiation dose was kept as low as reasona xiao achievable to obtain optimal diagnostic quality images. DICOM format image data is available pamela ctronically for review and comparison. FINDINGS: Bowel/Mesentery: There is an ostomy in the left lower abdominal quadrant. Surgical aneta are seen at the expected location of the rectosigmoid junction. Bladder: Contours are smooth. Retroperitoneum: No evidence of deep pelvic adenopathy. Reproductive Organs: No abnormal masses or calcifications seen. 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 On the current study, this area appears to been hart rgically excised with no residual abscess remaining. A large surgical defect is identified in the pre vious location of the aforementioned abscess, however.. Bony Structures: Unremarkable. Miscellaneous: As noted previously, there appear to be marked thickening of the urinary bladder which is otherwise decompressed by suprapubic catheter. The degree of mural thickening has decreased in e interim. CONCLUSION: 1. Abscess in the left lower abdominal quadrant extending into the inguinal region into the left jyothi e of the scrotum seen previously appears to been successfully surgically excised. A large soft tissue defect is seen in the prior location of the abscess. 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 2. Stable postsurgical changes with a colonic ostomy in the left lower abdominal quadrant. A line of surgical aneta identified in the expected location of the rectosigmoid junction. 3. Urinary bladder is decompressed with a suprapubic catheter. Degree of mural thickening has dimini shed from the prior. Electronically signed by: Bj Meza MD 09/14/2018 6:09 PM EDT
--- NOTE | 2018-09-14 21:52 | P.PNPOD ---
Subjective Interval history: Patient seen bedside. Resting comfortably. No concerns with left ankle. Physical Exam Vital signs: Vital Signs 09/14/18 00:00 09/14/18 04:00 09/14/18 08:00 Temperature 98.1 F 97.9 F 98.3 F Pulse Rate 77 77 76 Respiratory Rate 20 20 19 Blood Pressure 121/60 134/65 115/56 L Pulse Oximetry 97 98 98 09/14/18 12:00 09/14/18 16:00 09/14/18 20:00 Temperature 98.1 F 98.5 F 98.1 F Pulse Rate 91 H 78 77 Respiratory Rate 18 18 18 Blood Pressure 104/64 114/55 L 115/55 L Pulse Oximetry 98 98 99 Intake & Output 09/14/18 09/14/18 09/15/18 06:59 18:59 06:59 Intake Total 350 / 350 50 / 50 Output Total 2500 / 2500 1999 Balance -2150 / -2150 -1950 / -1950 Intake: IV 350 / 350 50 / 50 Diflucan 400 mg Premix Bag 200 200 / 200 ML @ 100 mls/hr IV.SIG Q24H [facility] Rx#:[id number] Zosyn 3.375 GM Premix 50 ML @ 150 / 150 50 / 50 100 mls/hr IV.SIG Q6H [facility] Rx#: [id number] Output: Urine 2500 / 2500 Urine Amount (Catheter) 1999 Suprapubic 1999 Other: Date of Last Bowel Movement 09/13/18 09/13/18 Narrative: Dressing intact to left foot and ankle, no strikethrough. BUNDLES HANGER under 3 secs to digits present. No calf pain LLE. No reported change in sensation. Medications and Allergies Active Medications: Active Medications Acetaminophen (Tylenol) 650 mg PO Q4H PRN PRN Reason: Temp > 100.4 Last Admin: 08/29/18 04:19 Dose: 650 mg Hydrocodone Bitart/Acetaminophen ([place] 5/325) 1 tab PO Q6H PRN PRN Reason: Acute Pain Bisacodyl (Dulcolax Supp) 10 mg RECTAL DAILY PRN PRN Reason: SEVERE CONSITIPATION Collagenase (Santyl Oint) 1 applicatio TOPICAL DAILY [facility] Last Admin: 09/14/18 09:08 Dose: Not Given Dextrose (D50w Vial) 50 ml IV.PUSH UNSCH PRN PRN Reason: PER HYPOGLYCEMIA PROTOCOL Ferrous Sulfate (Ferosul) 325 mg PO BID@1200,1700 [facility] Last Admin: 09/14/18 17:19 Dose: 325 mg Fluconazole (Diflucan) 400 mg PO Q24H [facility] Glucagon (Glucagon Inj) 1 mg OTHER PRN PRN PRN Reason: for Hypoglycemia Protocol Insulin Aspart (Novolog Insulin Correctional Sugar Inj) 0 unit SQ ACHS AND 3AM [facility]; Protocol Last Admin: 09/14/18 17:37 Dose: 10 unit Insulin Human Isoph/Insulin Regular (Novolin 70/30 Inj) 14 units SQ BID@0800, 1700 [facility] Last Admin: 09/14/18 17:20 Dose: 14 units Lactulose (Lactulose Liq) 30 ml PO DAILY PRN PRN Reason: SEVERE CONSITIPATION Nystatin (Mycostatin Cream) 1 applicatio TOPICAL QID [facility] Last Admin: 09/14/18 13:00 Dose: Not Given Ondansetron HCl (Zofran Inj) 4 mg IV.PUSH Q6H PRN PRN Reason: NAUSEA OR VOMITING Senna/Docusate Sodium (Diane-Colace) 1 tab PO BID [facility] Last Admin: 09/14/18 09:08 Dose: Not Given Sennosides (Senokot) 17.2 mg PO Q12H PRN PRN Reason: Moderate Constipation Sodium Chloride (Ns Flush) 2 ml IV.FLUSH BID [facility] Last Admin: 09/14/18 09:07 Dose: 2 ml Sodium Chloride (Ns Flush) 2 ml IV.FLUSH PRN PRN PRN Reason: FLUSH AFTER USING IV ACCESS Terbutaline Sulfate (Brethine Inj) 1 mg SQ UNSCH PRN PRN Reason: For Extravasation Allergies Allergy/AdvReac Type Severity Reaction Status Date / Time Influenza Virus Vaccines Allergy Severe Anaphylaxis Verified 08/28/18 12:12 *MDRO Multi-Drug Resistant AdvReac Unknown Flushing Uncoded 08/28/18 12:12 Organism Home Medications Medication Instructions Recorded Confirmed Type No Known Home Medications 08/28/18 08/28/18 History Results - Labs CBC & Chem 7: 09/14/18 06:35 09/14/18 06:35 Laboratory Results - last 24 hr 09/14/18 09/14/18 09/14/18 02:53 06:35 06:35 WBC 10.3 RBC 3.95 L Hgb 11.6 L Hct 35.1 L MCV 88.9 MCH 29.3 MCHC 32.9 RDW 13.9 Plt Count 265 MPV 7.4 Neut % (Auto) 67.8 Lymph % (Auto) 20.9 [place] % (Auto) 8.0 Eos % (Auto) 2.5 Baso % (Auto) 0.8 Neut # (Auto) 7.0 Lymph # (Auto) 2.2 [place] # (Auto) 0.8 Eos # (Auto) 0.3 Baso # (Auto) 0.1 WBC Differential . Differential Comment Auto diff final Sodium 138 Potassium 3.9 Chloride 103 Carbon Dioxide 27.8 Anion Gap 7 BUN 20 H Creatinine 1.07 Estimated GFR 69 L POC Glucose 135 H Random Glucose 108 H Calcium 8.7 Total Bilirubin 0.4 AST 13 L ALT 12 Alkaline Phosphatase 48 Total Protein 7.4 Albumin 2.4 L 09/14/18 09/14/18 09/14/18 08:47 13:35 17:22 WBC RBC Hgb Hct MCV MCH MCHC RDW Plt Count MPV Neut % (Auto) Lymph % (Auto) [place] % (Auto) Eos % (Auto) Baso % (Auto) Neut # (Auto) Lymph # (Auto) [place] # (Auto) Eos # (Auto) Baso # (Auto) WBC Differential Differential Comment Sodium Potassium Chloride Carbon Dioxide Anion Gap BUN Creatinine Estimated GFR POC Glucose 146 H 154 H 222 H Random Glucose Calcium Total Bilirubin AST ALT Alkaline Phosphatase Total Protein Albumin - Imaging Impressions Pelvis CT 09/14/18 00:00 CONCLUSION: 1. Abscess in the left lower abdominal quadrant extending into the inguinal region into the left side of the scrotum seen previously appears to been successfully surgically excised. A large soft tissue defect is seen in the prior location of the abscess. 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 2. Stable postsurgical changes with a colonic ostomy in the left lower abdominal quadrant. A line of surgical aneta identified in the expected location of the rectosigmoid junction. 3. Urinary bladder is decompressed with a suprapubic catheter. Degree of mural thickening has diminished from the prior. 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
[2018-09-15] MEDS: Insulin NovoLOG Aspart Correctional Sugar Inj SQ SCH ×5 (03:41→20:31)
[2018-09-15 07:08] LABS: Baso # (Auto) 0.1 th/mm3 (0.0-0.2); Eos # (Auto) 0.3 th/mm3 (0.0-0.4); Eos % (Auto) 3.9 % (0.0-4.0); Hematocrit 33.9 % (39.0-51.0); Hemoglobin 11.1 gm/dL (13.0-17.0); Lymph # (Auto) 2.1 th/mm3 (1.0-4.8); Lymph % (Auto) 26.7 % (9.0-44.0); Mean Corpuscular HGB Conc 32.7 % (32.0-36.0); Mean Corpuscular Hemoglobin 29.1 pg (27.0-34.0); Mean Corpuscular Volume 88.9 fL (80.0-100.0); Mean Platelet Volume 7.7 fL (7.0-11.0); Mono # (Auto) 0.7 th/mm3 (0.0-0.9); Mono % (Auto) 8.1 % (0.0-8.0); Neut # (Auto) 4.8 th/mm3 (1.8-7.7); Neut % (Auto) 60.3 % (16.0-70.0); Platelet Count 228 th/mm3 (150-450); Red Blood Count 3.81 mil/mm3 (4.50-5.90); Red Cell Distribution Width 14.3 % (11.6-17.2)
[2018-09-15 07:44] LABS: Alanine Aminotransferase 12 U/L (12-78); Albumin 2.4 g/dL (3.4-5.0); Anion Gap 6 meq/L (5-15); Aspartate Aminotransferase 13 U/L (15-37); Blood Urea Nitrogen 24 mg/dL (7-18); Calcium 8.6 mg/dL (8.5-10.1); Carbon Dioxide 28.8 meq/L (21.0-32.0); Chloride 108 meq/L (98-107); Glomerular Filtration Rate 80 mL/min (>89); Glucose,Random 142 mg/dL (74-106); Potassium 3.8 meq/L (3.5-5.1); Sodium 143 meq/L (136-145)
[2018-09-15 07:46] LABS: Alkaline Phosphatase 49 U/L (45-117); Total Protein 7.3 g/dL (6.4-8.2)
[2018-09-15] MEDS: Sodium Chloride 0.9% 2 ML Flush BID IV.FLUSH SCH ×2 (09:14→20:02)
[2018-09-15] MEDS: Collagenase Oint 30 GM Tube TOPICAL SCH (09:14)
[2018-09-15] MEDS: Senna/Docusate Sodium 8.6/50 MG Tablet PO SCH ×2 (09:14→20:02)
--- NOTE | 2018-09-15 14:42 | P.PN ---
Subjective Interval history: Patient doing well. Patient is n.p.o. for OR today. Patient has of yesterday was tolerating p.o. with colostomy/urostomy functioning well. No other concerns. Physical Exam Vital signs: Vital Signs 09/14/18 16:00 09/14/18 20:00 09/14/18 23:47 Temperature 98.5 F 98.1 F 97.9 F Pulse Rate 78 76 82 Respiratory Rate 18 18 18 Blood Pressure 114/55 L 115/55 L 118/62 Pulse Oximetry 98 99 96 09/15/18 00:00 09/15/18 04:00 09/15/18 08:00 Temperature 98.0 F 98.2 F Pulse Rate 71 68 66 Respiratory Rate 18 16 Blood Pressure 123/60 125/61 Pulse Oximetry 97 98 09/15/18 12:00 Temperature 98.2 F Pulse Rate 74 Respiratory Rate 18 Blood Pressure 136/67 Pulse Oximetry 97 Intake & Output 09/14/18 09/15/18 09/15/18 18:59 06:59 18:59 Intake Total 50 / 50 480 / 480 50 / 50 Output Total 1999 4780 / 4780 Balance -1950 / -1950 -4300 / -4300 50 / 50 Weight 90.5 kg Intake: IV 50 / 50 50 / 50 Zosyn 3.375 GM Premix 50 ML @ 50 / 50 100 mls/hr IV.SIG Q6H [facility] Rx#: [id number] Oral 480 / 480 Output: Urine 2325 / 2325 Estimated Blood Loss 5 / 5 Urine Amount (Catheter) 1999 Suprapubic 1999 Stool Amount (Stoma) 200 / 200 Left Upper Abdomen 200 / 200 Wound Vac Amount 250 / 250 Left Groin 250 / 250 Other: Mode Setting Left Groin Continuous Date of Last Bowel Movement 09/13/18 09/15/18 09/15/18 # Bowel Movements 0 # Incontinent Bowel Movements 0 Narrative: GENERAL: Well-nourished male, in no acute distress, sitting in chair HEENT: Normocephalic. Atraumatic. PERRLA, No scleral icterus. No injection or drainage. MOM. CARDIOVASCULAR: Regular rate and rhythm without murmurs, gallops, or rubs. RESPIRATORY: Breath sounds equal bilaterally. No accessory muscle use. GASTROINTESTINAL: Abdomen soft, non-tender, nondistended. Colostomy present with formed stool. Suprapubic catheter drain in place. MUSCULOSKELETAL: No cyanosis, no edema. SKIN: Warm and dry. Left inguinal dressing C/D/I with wound vac. L ankle with dressing C/D/I. NEURO: AAO x3, no focal neurological deficits. - Urinary Catheter Management Indwelling Urethral Catheter Cath placed during this visit: yes, but has since been removed by the nurse Reason for continuing: Chronic Urinary Retention Insertion date: 09/07/18 Insertion time: 16:00 Removal date: 09/10/18 Removal time: 16:00 Suprapubic Cath placed during this visit: yes Reason for continuing: Acute urinary retention Insertion date: 09/03/18 Results - Labs CBC & Chem 7: 09/15/18 06:16 09/15/18 06:16 Laboratory Results - last 24 hr 09/14/18 09/14/18 09/15/18 17:22 23:34 03:38 WBC RBC Hgb Hct MCV MCH MCHC RDW Plt Count MPV Neut % (Auto) Lymph % (Auto) [place] % (Auto) Eos % (Auto) Baso % (Auto) Neut # (Auto) Lymph # (Auto) [place] # (Auto) Eos # (Auto) Baso # (Auto) WBC Differential Differential Comment Sodium Potassium Chloride Carbon Dioxide Anion Gap BUN Creatinine Estimated GFR POC Glucose 222 H 128 H 153 H Random Glucose Calcium Total Bilirubin AST ALT Alkaline Phosphatase Total Protein Albumin 09/15/18 09/15/18 09/15/18 06:16 06:16 07:42 WBC 8.0 RBC 3.81 L Hgb 11.1 L Hct 33.9 L MCV 88.9 MCH 29.1 MCHC 32.7 RDW 14.3 Plt Count 228 MPV 7.7 Neut % (Auto) 60.3 Lymph % (Auto) 26.7 [place] % (Auto) 8.1 H Eos % (Auto) 3.9 Baso % (Auto) 1.0 Neut # (Auto) 4.8 Lymph # (Auto) 2.1 [place] # (Auto) 0.7 Eos # (Auto) 0.3 Baso # (Auto) 0.1 WBC Differential . Differential Comment Auto diff final Sodium 143 Potassium 3.8 Chloride 108 H Carbon Dioxide 28.8 Anion Gap 6 BUN 24 H Creatinine 0.94 Estimated GFR 80 L POC Glucose 151 H Random Glucose 142 H Calcium 8.6 Total Bilirubin 0.3 AST 13 L ALT 12 Alkaline Phosphatase 49 Total Protein 7.3 Albumin 2.4 L - Imaging Impressions Pelvis CT 09/14/18 00:00 CONCLUSION: 1. Abscess in the left lower abdominal quadrant extending into the inguinal region into the left side of the scrotum seen previously appears to been successfully surgically excised. A large soft tissue defect is seen in the prior location of the abscess. 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 2. Stable postsurgical changes with a colonic ostomy in the left lower abdominal quadrant. A line of surgical aneta identified in the expected location of the rectosigmoid junction. 3. Urinary bladder is decompressed with a suprapubic catheter. Degree of mural thickening has diminished from the prior. 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 1. Left Fascicular Cutaneous Inguinal Fistula Initially admitted for septic shock, OR on 09/03/2018 for suprapubic catheter placement s/p Zosyn started on 08/28, D/C'd on 09/14 s/p E&D of fistula and wound VAC placement on 09/10/2018, s/p OR today for Vac change Cont. Hydrocodone PRN pain control Appreciate Urology assistance with management Per Uro Reccs 09/14: Stable s/p washout with VAC change yesterday OOB Friday in OR for VAC change 2. Urinary tract infection Continue Fluconazole started 09/04, complete 14 days, stop on 09/18 Neg Urine Cx 09/05 x48hrs, final Urine Cx 08/30 Rachel Await ID reccs for further mgmt Per ID Reccs 09/14: complete zosyn cont high dose floconazole x 14 days total (thru 09/18), change to po 3. Type 2 Diabetes Stable, BS stable when diet followed Diabetic diet Cont. Insulin 70/30 14U BID and sliding scale insulin 4. Left lateral foot ankle ulceration s/p excision/biopsy of wound with skin plasty left lateral ankle, ostectomy left lateral malleolus on 09/13, per Podiatry Needs dressing change in 1 week per the recommendations Per Podiatry Reccs on 09/14: Will perform dressing change tomorrow Weight bearing as tolerated to the left LE 5. Tinea cruris, improved Continue Nystatin cream until symptoms resolve Rx started on 08/28 6. Sacral/gluteal decub Continue wound care 7. Colostomy Continue nursing management 8. Anemia, iron deficiency Diagnosed per iron studies Hgb 11.6 from 11.8 Cont. Ferrous Sulfate 325mg BID Continue to monitor 9. DVT Prophylaxis: SCD's 10. Dispo: await Uro reccs Code Status: full Discussed Condition With: patient, RN (2) Sepsis Qualifiers: Sepsis type: sepsis due to unspecified organism Qualified Code(s): A41.9 - Sepsis, unspecified organism (5) Diabetes Qualifiers: Diabetes mellitus type: type 2
[2018-09-15] MEDS: Ferrous Sulfate 325 MG Tablet PO SCH ×2 (14:44→18:31)
[2018-09-15] MEDS ORDERED: Phenylephrine/NS 1000 MCG/10ML Syringe IV.PUSH ONE (14:59)
--- NOTE | 2018-09-15 16:00 | P.OP ---
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 Anesthesia: other (General LMA) Surgeon: Norbert Cassidy DO Estimated blood loss (mL): 0 Operation and Findings: 68-year-old male with history of a left groin abscess and urethral cutaneous fistula presents today for washout of wound and VAC change. Risk and benefits were discussed preoperatively patient is willing to proceed. Patient was brought to the operating identified myself as Sang Donahue. He was placed in dorsolithotomy position, prepped draped you sterile fashion, received preprocedure antibiotics and general LMA anesthesia was administered. The VAC sponge was removed and then the area was lightly debrided and irrigated copiously with warm normal saline. A medium size VAC was then placed into the wound site and down into the scrotal area. Dressings were applied the patient was awoken and transferred recovery in stable condition. He tolerated the procedure well. He will need another VAC change this Friday.
[2018-09-15] MEDS ORDERED: fentaNYL Citrate Inj 100 MCG/2 ML Ampul ONE (16:11)
--- NOTE | 2018-09-15 20:36 | MP ---
cc: Riky Christiansen DPM DATE OF OPERATION: 09/13/2018 INDICATIONS: The patient presented with a chronic wound to the left lateral aspect of the distal fibula. He was also noted to have very prominent bone in that area. After examination of the wound, it did appear to be improving with offloading and local wound care, but it was still present, still causing pain. I discussed with the patient the risks, benefits, potential complications of surgery. He agreed to move forward. 1. Exostosis of left fibula. 2. Excision of wound with biopsy and skin plasty of left lateral ankle. DESCRIPTION OF PROCEDURE: He was seen in preop holding by myself, nursing staff and anesthesia where the correct patient, side, and site were all confirmed to be correct and the left lower extremity. He was then taken back to the surgical suite in supine position. The left lower extremity was prepped and draped in normal sterile fashion. After a timeout per facility protocol, attention was directed to the left lateral aspect of the ankle where the ulceration measured approximately 2 x 0.6 cm and the wound was excised using a #15 blade. Following this, the lateral aspect of the lateral malleolus was planed and the exostosis was removed using a saw blade and rongeur, followed by irrigation and a hurricane skin plasty continuing the most proximal aspect of the wound in a curvilinear proximal and anterior direction and the distal most aspect of the wound in a posterior and distal lateral direction approximately 2 cm in length on each side and followed by transposition of that full-thickness flap on both sides in order to fully transpose the tissue to cover the defect, followed by primary closure with 3-0 nylon, followed by dressing consisting of Xeroform, 4 x 4's, cast padding, Tomas bandage and a donut offloading pad was applied over the bandage just prior to applying the Tomas wrap in order to offload the area to reduce any pressure along the incision site. The patient tolerated the procedure and anesthesia well without complications and will be weightbearing as tolerated to the left lower extremity in a surgical shoe. He will follow up in clinic in 1 week for a dressing change and no further surgery is anticipated. He is cleared for discharge when deemed ready per the primary team. SHORT OPERATIVE NOTE SURGEON: Riky Christiansen DPM SENIOR DATA ANALYST: Staff. PREOPERATIVE DIAGNOSES: 1. Exostosis, left fibula. 2. Chronic ulcer, left ankle. POSTOPERATIVE DIAGNOSIS: 1. Exostosis, left fibula. 2. Chronic ulcer, left ankle. PROCEDURE PERFORMED: 1. Excision and biopsy of wound, left lateral ankle with skin plasty, left lateral ankle. 2. Ostectomy left lateral malleolus. PROPHYLAXIS: Two grams Ancef IV. ESTIMATED BLOOD LOSS: 5 mL PATHOLOGY: Wound and bone, left lateral ankle. ESTIMATED BLOOD LOSS: 5 mL HEMOSTASIS: None. CONDITION: Stable to PACU. COMPLICATIONS: None. DISPOSITION: Weightbearing as tolerated left lower extremity. Follow up in clinic in 1 week for a dressing change. No further surgery anticipated. Riky Christiansen DPM /lorie , 06:28 PM , 06:33 PM
--- NOTE | 2018-09-15 22:09 | P.PNPOD ---
Subjective Interval history: Patient seen bedside. Resting comfortably. No concerns with left lower extremity. Denies pain in left lower extremity. Physical Exam Vital signs: Vital Signs 09/14/18 23:47 09/15/18 00:00 09/15/18 04:00 Temperature 97.9 F 98.0 F Pulse Rate 82 71 68 Respiratory Rate 18 18 Blood Pressure 118/62 123/60 Pulse Oximetry 96 97 09/15/18 08:00 09/15/18 12:00 09/15/18 16:00 Temperature 98.2 F 98.2 F Pulse Rate 66 60 66 Respiratory Rate 16 18 Blood Pressure 125/61 136/67 Pulse Oximetry 98 97 09/15/18 16:02 09/15/18 16:15 09/15/18 16:30 Temperature 97.6 F Pulse Rate 64 64 65 Respiratory Rate 14 13 12 Blood Pressure 125/62 129/66 149/67 H Pulse Oximetry 100 100 99 09/15/18 20:00 Temperature 98 F Pulse Rate 64 Respiratory Rate 16 Blood Pressure 143/72 H Pulse Oximetry 100 Intake & Output 09/15/18 09/15/18 09/16/18 06:59 18:59 06:59 Intake Total 480 / 480 1530 / 1530 Output Total 4780 / 4780 1525 / 1525 Balance -4300 / -4300 5 / 5 Weight 90.5 kg Intake: IV 50 / 50 Oral 480 / 480 480 / 480 Anesthesia Amount 1000 / 1000 Output: Urine 2325 / 2325 525 / 525 Stool 150 / 150 Estimated Blood Loss 5 / 5 0 / 0 Urine Amount (Catheter) 1999 400 / 400 Suprapubic 1999 400 / 400 Stool Amount (Stoma) 200 / 200 200 / 200 Left Upper Abdomen 200 / 200 200 / 200 Wound Vac Amount 250 / 250 250 / 250 Left Groin 250 / 250 250 / 250 Other: Mode Setting Left Groin Continuous Continuous # Voids 3 # Incontinent Voids 3 # Urine Diapers 3 Date of Last Bowel Movement 09/15/18 09/15/18 # Bowel Movements 0 0 # Incontinent Bowel Movements 0 0 Narrative: Sutures intact with skin well coapted to left lateral ankle. No drainage noted. Mild erythema and edema noted to left lateral ankle. full ROM of left ankle. No pain on calf compression left lower extremity. Medications and Allergies Active Medications: Active Medications Acetaminophen (Tylenol) 650 mg PO Q4H PRN PRN Reason: Temp > 100.4 Last Admin: 08/29/18 04:19 Dose: 650 mg Hydrocodone Bitart/Acetaminophen ([place] 5/325) 1 tab PO Q6H PRN PRN Reason: Acute Pain Bisacodyl (Dulcolax Supp) 10 mg RECTAL DAILY PRN PRN Reason: SEVERE CONSITIPATION Collagenase (Santyl Oint) 1 applicatio TOPICAL DAILY [facility] Last Admin: 09/15/18 09:14 Dose: Not Given Dextrose (D50w Vial) 50 ml IV.PUSH UNSCH PRN PRN Reason: PER HYPOGLYCEMIA PROTOCOL Ferrous Sulfate (Ferosul) 325 mg PO BID@1200,1700 [facility] Last Admin: 09/15/18 18:31 Dose: 325 mg Fluconazole (Diflucan) 400 mg PO Q24H [facility] Last Admin: 09/15/18 20:02 Dose: 400 mg Glucagon (Glucagon Inj) 1 mg OTHER PRN PRN PRN Reason: for Hypoglycemia Protocol Insulin Aspart (Novolog Insulin Correctional Sugar Inj) 0 unit SQ ACHS AND 3AM [facility]; Protocol Last Admin: 09/15/18 20:31 Dose: 2 unit Insulin Human Isoph/Insulin Regular (Novolin 70/30 Inj) 14 units SQ BID@0800, 1700 [facility] Last Admin: 09/15/18 18:28 Dose: Not Given Lactulose (Lactulose Liq) 30 ml PO DAILY PRN PRN Reason: SEVERE CONSITIPATION Miscellaneous Information (Misc Nursing Information) 1 each OTHER UNSCH PRN PRN Reason: SEE LABEL COMMENTS Stop: 09/16/18 16:04 Nystatin (Mycostatin Cream) 1 applicatio TOPICAL QID [facility] Last Admin: 09/15/18 20:03 Dose: Not Given Ondansetron HCl (Zofran Inj) 4 mg IV.PUSH Q6H PRN PRN Reason: NAUSEA OR VOMITING Senna/Docusate Sodium (Diane-Colace) 1 tab PO BID [facility] Last Admin: 09/15/18 20:02 Dose: 1 tab Sennosides (Senokot) 17.2 mg PO Q12H PRN PRN Reason: Moderate Constipation Sodium Chloride (Ns Flush) 2 ml IV.FLUSH BID [facility] Last Admin: 09/15/18 20:02 Dose: 2 ml Sodium Chloride (Ns Flush) 2 ml IV.FLUSH PRN PRN PRN Reason: FLUSH AFTER USING IV ACCESS Terbutaline Sulfate (Brethine Inj) 1 mg SQ UNSCH PRN PRN Reason: For Extravasation Allergies Allergy/AdvReac Type Severity Reaction Status Date / Time Influenza Virus Vaccines Allergy Severe Anaphylaxis Verified 08/28/18 12:12 *MDRO Multi-Drug Resistant AdvReac Unknown Flushing Uncoded 08/28/18 12:12 Organism Home Medications Medication Instructions Recorded Confirmed Type No Known Home Medications 08/28/18 08/28/18 History Results - Labs CBC & Chem 7: 09/15/18 06:16 09/15/18 06:16 Laboratory Results - last 24 hr 09/14/18 09/15/18 09/15/18 23:34 03:38 06:16 WBC 8.0 RBC 3.81 L Hgb 11.1 L Hct 33.9 L MCV 88.9 MCH 29.1 MCHC 32.7 RDW 14.3 Plt Count 228 MPV 7.7 Neut % (Auto) 60.3 Lymph % (Auto) 26.7 Craven % (Auto) 8.1 H Eos % (Auto) 3.9 Baso % (Auto) 1.0 Neut # (Auto) 4.8 Lymph # (Auto) 2.1 Craven # (Auto) 0.7 Eos # (Auto) 0.3 Baso # (Auto) 0.1 WBC Differential . Differential Comment Auto diff final Sodium Potassium Chloride Carbon Dioxide Anion Gap BUN Creatinine Estimated GFR POC Glucose 128 H 153 H Random Glucose Calcium Total Bilirubin AST ALT Alkaline Phosphatase Total Protein Albumin 09/15/18 09/15/18 09/15/18 06:16 07:42 16:19 WBC RBC Hgb Hct MCV MCH MCHC RDW Plt Count MPV Neut % (Auto) Lymph % (Auto) Craven % (Auto) Eos % (Auto) Baso % (Auto) Neut # (Auto) Lymph # (Auto) Craven # (Auto) Eos # (Auto) Baso # (Auto) WBC Differential Differential Comment Sodium 143 Potassium 3.8 Chloride 108 H Carbon Dioxide 28.8 Anion Gap 6 BUN 24 H Creatinine 0.94 Estimated GFR 80 L POC Glucose 151 H 138 H Random Glucose 142 H Calcium 8.6 Total Bilirubin 0.3 AST 13 L ALT 12 Alkaline Phosphatase 49 Total Protein 7.3 Albumin 2.4 L 09/15/18 20:09 WBC RBC Hgb Hct MCV MCH MCHC RDW Plt Count MPV Neut % (Auto) Lymph % (Auto) Craven % (Auto) Eos % (Auto) Baso % (Auto) Neut # (Auto) Lymph # (Auto) Craven # (Auto) Eos # (Auto) Baso # (Auto) WBC Differential Differential Comment Sodium Potassium Chloride Carbon Dioxide Anion Gap BUN Creatinine Estimated GFR POC Glucose 171 H Random Glucose Calcium Total Bilirubin AST ALT Alkaline Phosphatase Total Protein Albumin - Procedures none Assessment and Plan - Assessment (1) Exostosis of left fibula Code(s): M89.8X6 - Other specified disorders of bone, lower leg Status: Acute (2) Chronic ulcer of left ankle with fat layer exposed Code(s): L97.322 - Non-pressure chronic ulcer of left ankle with fat layer exposed Status: Acute - Plan 68-year-old male with left lateral malleolar ulceration s/p excision/biopsy of wound with skin plasty left lateral ankle and ostectomy left lateral malleolus Dressing changed Will follow patient while in house Ok to DC per podiatry Will have dressing changed in 48-72 hours if patient in house Patient to follow up with Dr. Carrizales within 1 week of discharge Weight bearing as tolerated to the left LE
[2018-09-16] MEDS: Insulin NovoLOG Aspart Correctional Sugar Inj SQ SCH ×5 (02:04→20:34)
[2018-09-16] MEDS: Senna/Docusate Sodium 8.6/50 MG Tablet PO SCH ×2 (09:21→20:34)
[2018-09-16] MEDS: Sodium Chloride 0.9% 2 ML Flush BID IV.FLUSH SCH ×2 (09:22→20:34)
[2018-09-16] MEDS: Collagenase Oint 30 GM Tube TOPICAL SCH (09:22)
[2018-09-16 11:00] LABS: Baso # (Auto) 0.1 th/mm3 (0.0-0.2); Baso % (Auto) 0.8 % (0.0-2.0); Eos # (Auto) 0.3 th/mm3 (0.0-0.4); Eos % (Auto) 3.9 % (0.0-4.0); Hematocrit 35.4 % (39.0-51.0); Hemoglobin 11.9 gm/dL (13.0-17.0); Lymph # (Auto) 1.5 th/mm3 (1.0-4.8); Lymph % (Auto) 22.1 % (9.0-44.0); Mean Corpuscular HGB Conc 33.6 % (32.0-36.0); Mean Corpuscular Hemoglobin 29.3 pg (27.0-34.0); Mean Corpuscular Volume 87.1 fL (80.0-100.0); Mean Platelet Volume 7.8 fL (7.0-11.0); Mono # (Auto) 0.5 th/mm3 (0.0-0.9); Mono % (Auto) 6.6 % (0.0-8.0); Neut # (Auto) 4.6 th/mm3 (1.8-7.7); Neut % (Auto) 66.6 % (16.0-70.0); Platelet Count 206 th/mm3 (150-450); Red Blood Count 4.07 mil/mm3 (4.50-5.90); Red Cell Distribution Width 14.5 % (11.6-17.2); White Blood Count 6.9 th/mm3 (4.0-11.0)
[2018-09-16 11:10] LABS: Albumin 2.4 g/dL (3.4-5.0); Anion Gap 9 meq/L (5-15); Aspartate Aminotransferase 18 U/L (15-37); Blood Urea Nitrogen 17 mg/dL (7-18); Calcium 8.9 mg/dL (8.5-10.1); Carbon Dioxide 28.1 meq/L (21.0-32.0); Chloride 103 meq/L (98-107); Glomerular Filtration Rate 79 mL/min (>89); Glucose,Random 207 mg/dL (74-106); Potassium 4.3 meq/L (3.5-5.1)
[2018-09-16 11:11] LABS: Sodium 140 meq/L (136-145)
[2018-09-16 11:25] LABS: Alanine Aminotransferase 13 U/L (12-78); Alkaline Phosphatase 49 U/L (45-117); Total Protein 7.5 g/dL (6.4-8.2)
[2018-09-16] MEDS: Ferrous Sulfate 325 MG Tablet PO SCH ×2 (13:01→18:36)
--- NOTE | 2018-09-16 13:48 | P.PNURO ---
Subjective Patient symptoms today: Pt feels well. No complaints. Objective Vital Signs: Vital Signs 09/15/18 16:00 09/15/18 16:02 09/15/18 16:15 Temperature 97.6 F Pulse Rate 66 64 64 Respiratory Rate 14 13 Blood Pressure 125/62 129/66 Pulse Oximetry 100 100 09/15/18 16:30 09/15/18 20:00 09/15/18 20:03 Temperature 98 F Pulse Rate 65 64 63 Respiratory Rate 12 16 Blood Pressure 149/67 H 143/72 H Pulse Oximetry 99 100 09/15/18 22:15 09/16/18 00:00 09/16/18 01:13 Temperature 98.1 F Pulse Rate 65 Respiratory Rate 16 16 18 Blood Pressure 141/72 H Pulse Oximetry 98 09/16/18 04:00 09/16/18 08:00 Temperature 97.9 F 97.6 F Pulse Rate 58 L 63 Respiratory Rate 18 18 Blood Pressure 157/68 H 152/72 H Pulse Oximetry 99 98 Intake & Output 09/15/18 09/16/18 09/16/18 18:59 06:59 18:59 Intake Total 1530 / 1530 Output Total 1525 / 1525 1450 / 1450 Balance 5 / 5 -1450 / -1450 Weight 89.7 kg Intake: IV 50 / 50 Oral 480 / 480 Anesthesia Amount 1000 / 1000 Output: Urine 525 / 525 1450 / 1450 Stool 150 / 150 Estimated Blood Loss 0 / 0 Urine Amount (Catheter) 400 / 400 Suprapubic 400 / 400 Stool Amount (Stoma) 200 / 200 Left Upper Abdomen 200 / 200 Wound Vac Amount 250 / 250 Left Groin 250 / 250 Other: Mode Setting Left Groin Continuous Intermittent # Voids 3 # Incontinent Voids 3 # Urine Diapers 3 Date of Last Bowel Movement 09/15/18 # Bowel Movements 0 # Incontinent Bowel Movements 0 Result Diagrams: 09/16/18 10:30 09/16/18 10:30 Medications and IVs: Active Medications Generic Name Dose Route Start Last Admin Trade Name Freq PRN Reason Stop Dose Admin Acetaminophen 650 mg 08/28/18 15:32 08/29/18 04:19 Tylenol PO 650 mg Q4H PRN Administration Temp > 100.4 Hydrocodone Bitart/Acetaminophen 1 tab 09/11/18 16:25 [place] 5/325 PO Q6H PRN Acute Pain Bisacodyl 10 mg 08/28/18 15:32 Dulcolax Supp RECTAL DAILY PRN SEVERE CONSITIPATION Collagenase 1 applicatio 08/30/18 09:00 09/16/18 09:22 Santyl Oint TOPICAL 1 applicatio DAILY SHREYAS Administration Dextrose 50 ml 08/28/18 15:28 D50w Vial IV.PUSH UNSCH PRN PER HYPOGLYCEMIA PROTOCOL Ferrous Sulfate 325 mg 09/13/18 17:00 09/16/18 13:01 Ferosul PO 325 mg BID@1200,1700 SHREYAS Administration Fluconazole 400 mg 09/14/18 20:00 09/15/18 20:02 Diflucan PO 400 mg Q24H SHREYAS Administration Glucagon 1 mg 08/28/18 15:28 Glucagon Inj OTHER PRN PRN for Hypoglycemia Protocol Insulin Aspart 0 unit 08/28/18 17:00 09/16/18 12:56 Novolog Insulin Correctional Sugar Inj SQ 5 unit ACHS AND 3AM SHREYAS Administration Protocol Insulin Human Isoph/Insulin Regular 14 units 09/02/18 09:10 09/16/18 09:20 Novolin 70/30 Inj SQ 14 units BID@0800,1700 [facility] Administration Lactulose 30 ml 08/28/18 15:32 Lactulose Liq PO DAILY PRN SEVERE CONSITIPATION Miscellaneous Information 1 each 09/15/18 16:05 Misc Nursing Information OTHER 09/16/18 16:04 UNSCH PRN SEE LABEL COMMENTS Nystatin 1 applicatio 08/28/18 18:00 09/16/18 13:01 Mycostatin Cream TOPICAL Not Given QID [facility] Ondansetron HCl 4 mg 08/28/18 15:32 Zofran Inj IV.PUSH Q6H PRN NAUSEA OR VOMITING Senna/Docusate Sodium 1 tab 08/28/18 21:00 09/16/18 09:21 Diane-Colace PO 1 tab BID [facility] Administration Sennosides 17.2 mg 08/28/18 15:32 Senokot PO Q12H PRN Moderate Constipation Sodium Chloride 2 ml 09/03/18 21:00 09/16/18 09:22 Ns Flush IV.FLUSH 2 ml BID SRHEYAS Administration Sodium Chloride 2 ml 09/03/18 17:03 Ns Flush IV.FLUSH PRN PRN FLUSH AFTER USING IV ACCESS Terbutaline Sulfate 1 mg 08/29/18 06:19 Brethine Inj SQ UNSCH PRN For Extravasation Objective Remarks: Abd:soft,nt,nd Lainez in place Right groin area with small drainage for now. 08/31 Abd:soft,nt,nd Left inquinal cellulitis noted which is improving. Crepitus noted. No signs of gangreen Lainez now with clear urine. Pt reports no drainage from left groin site 09/01 Abd:soft,nt,nd. Crepitus not palpated today. Lainez with clear urine. Purulent drainage from wound site. 09/02 Abd:soft,nt,nd. Crepitus not palpated today. Lainez with clear urine. Purulent drainage from wound site. 09/04 Abd:soft,nt,nd Packing in place with drainage SP tube draining clear urine 09/07 Abd:soft,nt,nd Cellulitis resolving Still with purlent drainage from left groin site SP tube clear 09/08 Abd:soft,nt,nd Cellulitis resolviing but still with collection in right inquinal wound Still with purlent drainage from left groin site SP tube clear Lainez with minimal drainage 09/09 Abd:soft,nt,nd Cellulitis resolviing but still with collection in right inquinal wound Still with purlent drainage from left groin site SP tube clear Lainez with minimal drainage 09/11 Abd:soft,nt,nd Wound VAC in place SP tube: clear urine 09/14 Abd:soft,nt,nd Ostomy working well VAC in good position; working well; no leak SP tube: urine clear 09/15 Abd:soft,nt,nd Ostomy working well VAC in good position; working well; no leak SP tube: urine clear Assessment and Plan - Plan 68 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 Once infection clears with need cystoscopy. May need SP tube placement in future. Will leave lainez for now. Air noted in SQ tissue over lower abdomen. WBC count is improving. Continue to monitor clinically. Hopefully urine drainage from left groin will stop after lainez has been placed. Will monitor. Continue IV abx for now. B/C positive: gram + Repeat UCx pending Will follow. 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 No drainage noted since placement of lainez catheter Continue IV abx per ID recommendations Continue present care. 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 CT shows still prominent collection in left inquinal canal Will need VAC placement in OR to resolve collection. Will plan for this week as OR time allows. 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 CT shows still prominent collection in left inquinal canal Plan for OR tomorrow NPO after MN 09/11 Stable s/p excison and debridement of left inquinal wound with VAC placement Will need return to OR on Friday to washout wound and change VAC 09/14 Stable s/p washout with VAC change yesterday OOB Today in OR for VAC change 09/15 Stable s/p washout with VAC change VAC in good position with no leak Will plan for VAC change Friday early AM in OR Will consult Plastic Surgery. Pt may need graft in future.
--- NOTE | 2018-09-16 18:13 | P.PN ---
Subjective Interval history: Patient doing well. Patient is tolerating p.o., colostomy bag functioning well. Suprapubic catheter also functioning well per patient. Patient reports he is doing well in terms of pain postop. No current concerns. No overnight events per RN Physical Exam Vital signs: Vital Signs 09/15/18 20:00 09/15/18 20:03 09/15/18 22:15 Temperature 98 F Pulse Rate 64 63 Respiratory Rate 16 16 Blood Pressure 143/72 H Pulse Oximetry 100 09/16/18 00:00 09/16/18 01:13 09/16/18 04:00 Temperature 98.1 F 97.9 F Pulse Rate 65 58 L Respiratory Rate 16 18 18 Blood Pressure 141/72 H 157/68 H Pulse Oximetry 98 99 09/16/18 08:00 09/16/18 12:00 09/16/18 16:00 Temperature 97.6 F 98.2 F 98.4 F Pulse Rate 63 71 79 Respiratory Rate 18 20 18 Blood Pressure 152/72 H 136/63 117/60 Pulse Oximetry 98 99 98 Intake & Output 09/15/18 09/16/18 09/16/18 18:59 06:59 18:59 Intake Total 1530 / 1530 Output Total 1525 / 1525 1450 / 1450 Balance 5 / 5 -1450 / -1450 Weight 89.7 kg Intake: IV 50 / 50 Oral 480 / 480 Anesthesia Amount 1000 / 1000 Output: Urine 525 / 525 1450 / 1450 Stool 150 / 150 Estimated Blood Loss 0 / 0 Urine Amount (Catheter) 400 / 400 Suprapubic 400 / 400 Stool Amount (Stoma) 200 / 200 Left Upper Abdomen 200 / 200 Wound Vac Amount 250 / 250 Left Groin 250 / 250 Other: Mode Setting Left Groin Continuous Intermittent # Voids 3 # Incontinent Voids 3 # Urine Diapers 3 Date of Last Bowel Movement 09/15/18 # Bowel Movements 0 # Incontinent Bowel Movements 0 Narrative: GENERAL: Well-nourished male, in no acute distress, sitting in chair HEENT: Normocephalic. Atraumatic. PERRLA, No scleral icterus. No injection or drainage. MOM. CARDIOVASCULAR: Regular rate and rhythm without murmurs, gallops, or rubs. RESPIRATORY: Breath sounds equal bilaterally. No accessory muscle use. GASTROINTESTINAL: Abdomen soft, non-tender, nondistended. Colostomy present with formed stool. Suprapubic catheter drain in place. MUSCULOSKELETAL: No cyanosis, no edema. SKIN: Warm and dry. Left inguinal dressing C/D/I with wound vac. L ankle with dressing C/D/I. NEURO: AAO x3, no focal neurological deficits. - Urinary Catheter Management Indwelling Urethral Catheter Cath placed during this visit: yes, but has since been removed by the nurse Reason for continuing: Chronic Urinary Retention Insertion date: 09/07/18 Insertion time: 16:00 Removal date: 09/10/18 Removal time: 16:00 Suprapubic Cath placed during this visit: yes Reason for continuing: Severe pressure ulcer/wound Insertion date: 09/03/18 Results - Labs CBC & Chem 7: 09/16/18 10:30 09/16/18 10:30 Laboratory Results - last 24 hr 09/15/18 09/16/18 09/16/18 20:09 02:01 08:20 WBC RBC Hgb Hct MCV MCH MCHC RDW Plt Count MPV Neut % (Auto) Lymph % (Auto) [place] % (Auto) Eos % (Auto) Baso % (Auto) Neut # (Auto) Lymph # (Auto) [place] # (Auto) Eos # (Auto) Baso # (Auto) WBC Differential Differential Comment Hematology Comments Sodium Potassium Chloride Carbon Dioxide Anion Gap BUN Creatinine Estimated GFR POC Glucose 171 H 159 H 131 H Random Glucose Calcium Total Bilirubin AST ALT Alkaline Phosphatase Total Protein Albumin 09/16/18 09/16/18 09/16/18 10:30 10:30 12:31 WBC 6.9 RBC 4.07 L Hgb 11.9 L Hct 35.4 L MCV 87.1 MCH 29.3 MCHC 33.6 RDW 14.5 Plt Count 206 MPV 7.8 Neut % (Auto) 66.6 Lymph % (Auto) 22.1 [place] % (Auto) 6.6 Eos % (Auto) 3.9 Baso % (Auto) 0.8 Neut # (Auto) 4.6 Lymph # (Auto) 1.5 [place] # (Auto) 0.5 Eos # (Auto) 0.3 Baso # (Auto) 0.1 WBC Differential . Differential Comment Auto diff final Hematology Comments Sodium 140 Potassium 4.3 Chloride 103 Carbon Dioxide 28.1 Anion Gap 9 BUN 17 Creatinine 0.95 Estimated GFR 79 L POC Glucose 183 H Random Glucose 207 H Calcium 8.9 Total Bilirubin 0.3 AST 18 ALT 13 Alkaline Phosphatase 49 Total Protein 7.5 Albumin 2.4 L 09/16/18 17:13 WBC RBC Hgb Hct MCV MCH MCHC RDW Plt Count MPV Neut % (Auto) Lymph % (Auto) [place] % (Auto) Eos % (Auto) Baso % (Auto) Neut # (Auto) Lymph # (Auto) [place] # (Auto) Eos # (Auto) Baso # (Auto) WBC Differential Differential Comment Hematology Comments Sodium Potassium Chloride Carbon Dioxide Anion Gap BUN Creatinine Estimated GFR POC Glucose 154 H Random Glucose Calcium Total Bilirubin AST ALT Alkaline Phosphatase Total Protein Albumin - Procedures none Assessment and Plan - Assessment (1) UTI (urinary tract infection) Code(s): N39.0 - Urinary tract infection, site not specified Status: Acute (2) Sepsis Code(s): A41.9 - Sepsis, unspecified organism Status: Resolved (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 1. Left Fascicular Cutaneous Inguinal Fistula Initially admitted for septic shock, OR on 09/03/2018 for suprapubic catheter placement s/p Zosyn D/C'd on 09/14 by ID s/p E&D of fistula and wound VAC placement on 09/10/2018, s/p OR on 09/15 for Vac change Cont. Hydrocodone PRN pain control and APAP PRN Appreciate Urology assistance with management Per Uro Reccs 09/15: Stable s/p washout with VAC change VAC in good position with no leak Will plan for VAC change Geo early AM in OR Will consult Plastic Surgery. Pt may need graft in future. 2. Urinary tract infection Continue Fluconazole started 09/04, complete 14 days, stop on 09/18 Neg Urine Cx 09/05 x48hrs, final Urine Cx 08/30 Rachel Await ID reccs for further mgmt Per ID Reccs 09/14: complete zosyn cont high dose floconazole x 14 days total (thru 09/18), change to po 3. Type 2 Diabetes Stable, BS stable when diet followed Diabetic diet Cont. Insulin 70/30 14U BID and sliding scale insulin 4. Left lateral foot ankle ulceration s/p excision/biopsy of wound with skin plasty left lateral ankle, ostectomy left lateral malleolus on 09/13, per Podiatry See their recommendations below Per Podiatry Reccs on 09/15: Dressing changed Will follow patient while in house Ok to DC per podiatry Will have dressing changed in 48-72 hours if patient in house Patient to follow up with Dr. Carrizales within 1 week of discharge Weight bearing as tolerated to the left LE 5. Tinea cruris, resolved s/p txt for 14 days with Nystatin cream 6. Sacral/gluteal decub Continue wound care 7. Colostomy Continue nursing management 8. Anemia, iron deficiency Diagnosed per iron studies Hgb 11.9 today from 11.6 Cont. Ferrous Sulfate 325mg BID Continue to monitor 9. DVT Prophylaxis: SCD's 10. Dispo: Plan for wound VAC change on Friday per Uro, will need to be NPO at midnight on night. Code Status: full Discussed Condition With: patient, RN (2) Sepsis Qualifiers: Sepsis type: sepsis due to unspecified organism Qualified Code(s): A41.9 - Sepsis, unspecified organism (5) Diabetes Qualifiers: Diabetes mellitus type: type 2
--- NOTE | 2018-09-16 20:07 | P.CON ---
History of Present Illness Service: Plastic surgery Consult date: 09/16/18 Primary Care Provider: Pricilla Primary Care Physician Chief Complaint: Groin wound History of Present Illness: History obtained from chart and patient as patient poor historian This is a 68-year-old male with multiple medical problems who was admitted after falling due to generalized weakness and was found to have a blood glucose of 541 as well as severe sepsis from infected left ankle wound. In the emergency department he was noted to have urine leaking from his left inguinal wound. Of note he has a history of Tony's gangrene in 2017, status post multiple debridements. Review of Systems All other systems reviewed negative except as stated in HPI PMFSH - History History 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 history of diabetes mellitus, A. 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 Surgical history also includes tonsillectomy and right foot resection. No pertinent family history denies CAD or diabetes mellitus. Medication list reviewed Family history noncontributory to presenting complaint - Tobacco History Second Hand Smoke Exposure: No Tobacco Use In Past 30 Days: No Smoking Status: Never smoker - Alcohol History How Often Do You Have a Drink Containing Alcohol: Never - Substance Use History Substance History: No History of Abuse - Travel History Recent Travel in the [place] Within the Last 8 Weeks: No Recent Travel Out of the Country Within the Last 8 Weeks: No - Immunization History Tetanus Immunization: <5 Years Hx Influenza Vaccine This Season: No PMFSH - History History 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 - Tobacco History Second Hand Smoke Exposure: No Tobacco Use In Past 30 Days: No Smoking Status: Never smoker - Alcohol History How Often Do You Have a Drink Containing Alcohol: Never - Substance Use History Substance History: No History of Abuse - Travel History Recent Travel in the [place] Within the Last 8 Weeks: No Recent Travel Out of the Country Within the Last 8 Weeks: No - Immunization History Tetanus Immunization: <5 Years Hx Influenza Vaccine This Season: No Medications and Allergies Active Medications: Active Medications Acetaminophen (Tylenol) 650 mg PO Q4H PRN PRN Reason: Temp > 100.4 Last Admin: 08/29/18 04:19 Dose: 650 mg Hydrocodone Bitart/Acetaminophen ([place] 5/325) 1 tab PO Q6H PRN PRN Reason: Acute Pain Bisacodyl (Dulcolax Supp) 10 mg RECTAL DAILY PRN PRN Reason: SEVERE CONSITIPATION Collagenase (Santyl Oint) 1 applicatio TOPICAL DAILY [facility] Last Admin: 09/16/18 09:22 Dose: 1 applicatio Dextrose (D50w Vial) 50 ml IV.PUSH UNSCH PRN PRN Reason: PER HYPOGLYCEMIA PROTOCOL Ferrous Sulfate (Ferosul) 325 mg PO BID@1200,1700 [facility] Last Admin: 09/16/18 18:36 Dose: 325 mg Fluconazole (Diflucan) 400 mg PO Q24H [facility] Last Admin: 09/15/18 20:02 Dose: 400 mg Glucagon (Glucagon Inj) 1 mg OTHER PRN PRN PRN Reason: for Hypoglycemia Protocol Insulin Aspart (Novolog Insulin Correctional Sugar Inj) 0 unit SQ ACHS AND 3AM SHREYAS; Protocol Last Admin: 09/16/18 18:37 Dose: 5 unit Insulin Human Isoph/Insulin Regular (Novolin 70/30 Inj) 14 units SQ BID@0800, 1700 [facility] Last Admin: 09/16/18 18:37 Dose: 14 units Lactulose (Lactulose Liq) 30 ml PO DAILY PRN PRN Reason: SEVERE CONSITIPATION Ondansetron HCl (Zofran Inj) 4 mg IV.PUSH Q6H PRN PRN Reason: NAUSEA OR VOMITING Senna/Docusate Sodium (Diane-Colace) 1 tab PO BID [facility] Last Admin: 09/16/18 09:21 Dose: 1 tab Sennosides (Senokot) 17.2 mg PO Q12H PRN PRN Reason: Moderate Constipation Sodium Chloride (Ns Flush) 2 ml IV.FLUSH BID [facility] Last Admin: 09/16/18 09:22 Dose: 2 ml Sodium Chloride (Ns Flush) 2 ml IV.FLUSH PRN PRN PRN Reason: FLUSH AFTER USING IV ACCESS Terbutaline Sulfate (Brethine Inj) 1 mg SQ UNSCH PRN PRN Reason: For Extravasation Allergies Allergy/AdvReac Type Severity Reaction Status Date / Time Influenza Virus Vaccines Allergy Severe Anaphylaxis Verified 08/28/18 12:12 *MDRO Multi-Drug Resistant AdvReac Unknown Flushing Uncoded 08/28/18 12:12 Organism Home Medications Medication Instructions Recorded Confirmed Type No Known Home Medications 08/28/18 08/28/18 History Physical Exam Vital signs: Vital Signs 09/15/18 20:03 09/15/18 22:15 09/16/18 00:00 Temperature 98.1 F Pulse Rate 63 65 Respiratory Rate 16 16 Blood Pressure 141/72 H Pulse Oximetry 98 09/16/18 01:13 09/16/18 04:00 09/16/18 08:00 Temperature 97.9 F 97.6 F Pulse Rate 58 L 63 Respiratory Rate 18 18 18 Blood Pressure 157/68 H 152/72 H Pulse Oximetry 99 98 09/16/18 12:00 09/16/18 16:00 Temperature 98.2 F 98.4 F Pulse Rate 71 83 Respiratory Rate 20 18 Blood Pressure 136/63 117/60 Pulse Oximetry 99 98 Intake & Output 09/16/18 09/16/18 09/17/18 06:59 18:59 06:59 Output Total 1450 / 1450 Balance -1450 / -1450 Weight 89.7 kg Output: Urine 1450 / 1450 Other: Mode Setting Left Groin Intermittent Narrative: No apparent anxiety moist mucous membranes PERRLA skin without rash respirations nonlabored moves all 4 extremities to command Left groin wound with VAC dressing in place No surrounding erythema - Urinary Catheter Management Indwelling Urethral Catheter Cath placed during this visit: yes, but has since been removed by the nurse Reason for continuing: Chronic Urinary Retention Insertion date: 09/07/18 Insertion time: 16:00 Removal date: 09/10/18 Removal time: 16:00 Suprapubic Cath placed during this visit: yes Reason for continuing: Severe pressure ulcer/wound Insertion date: 09/03/18 Assessment and Plan - Assessment (1) Open wound of groin Code(s): S31.109A - Unspecified open wound of abdominal wall, unspecified quadrant without penetration into peritoneal cavity, initial encounter Status : Acute (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
[2018-09-17] MEDS: Insulin NovoLOG Aspart Correctional Sugar Inj SQ SCH ×5 (02:36→20:34)
[2018-09-17 08:47] LABS: Baso # (Auto) 0.1 th/mm3 (0.0-0.2); Baso % (Auto) 0.7 % (0.0-2.0); Eos # (Auto) 0.3 th/mm3 (0.0-0.4); Eos % (Auto) 3.1 % (0.0-4.0); Hematocrit 34.5 % (39.0-51.0); Hemoglobin 11.6 gm/dL (13.0-17.0); Lymph # (Auto) 2.2 th/mm3 (1.0-4.8); Lymph % (Auto) 24.9 % (9.0-44.0); Mean Corpuscular HGB Conc 33.7 % (32.0-36.0); Mean Corpuscular Hemoglobin 29.5 pg (27.0-34.0); Mean Corpuscular Volume 87.5 fL (80.0-100.0); Mean Platelet Volume 8.1 fL (7.0-11.0); Mono # (Auto) 0.6 th/mm3 (0.0-0.9); Mono % (Auto) 6.7 % (0.0-8.0); Neut # (Auto) 5.7 th/mm3 (1.8-7.7); Neut % (Auto) 64.6 % (16.0-70.0); Platelet Count 252 th/mm3 (150-450); Red Blood Count 3.94 mil/mm3 (4.50-5.90); Red Cell Distribution Width 14.2 % (11.6-17.2); White Blood Count 8.9 th/mm3 (4.0-11.0)
[2018-09-17 09:11] LABS: Alanine Aminotransferase 11 U/L (12-78); Albumin 2.6 g/dL (3.4-5.0); Anion Gap 11 meq/L (5-15); Aspartate Aminotransferase 17 U/L (15-37); Blood Urea Nitrogen 21 mg/dL (7-18); Calcium 8.9 mg/dL (8.5-10.1); Carbon Dioxide 28.2 meq/L (21.0-32.0); Chloride 101 meq/L (98-107); Glomerular Filtration Rate 77 mL/min (>89); Glucose,Random 123 mg/dL (74-106); Potassium 3.5 meq/L (3.5-5.1); Sodium 140 meq/L (136-145)
[2018-09-17 09:14] LABS: Alkaline Phosphatase 54 U/L (45-117); Total Protein 7.8 g/dL (6.4-8.2)
[2018-09-17] MEDS: Senna/Docusate Sodium 8.6/50 MG Tablet PO SCH ×2 (09:56→20:25)
[2018-09-17] MEDS: Sodium Chloride 0.9% 2 ML Flush BID IV.FLUSH SCH ×2 (09:57→20:25)
[2018-09-17] MEDS: Collagenase Oint 30 GM Tube TOPICAL SCH (10:01)
--- NOTE | 2018-09-17 10:11 | P.PNURO ---
Subjective Patient symptoms today: Pt seen and examined. Feels well. No complaints. Objective Vital Signs: Vital Signs 09/16/18 12:00 09/16/18 16:00 09/16/18 20:00 Temperature 98.2 F 98.4 F 98.5 F Pulse Rate 71 83 74 Respiratory Rate 20 18 18 Blood Pressure 136/63 117/60 129/64 Pulse Oximetry 99 98 97 09/17/18 00:00 09/17/18 00:59 09/17/18 04:00 Temperature 98.1 F 98 F Pulse Rate 76 67 Respiratory Rate 18 18 18 Blood Pressure 110/61 130/67 Pulse Oximetry 98 98 09/17/18 08:00 Temperature 97.8 F Pulse Rate 75 Respiratory Rate 18 Blood Pressure 132/64 Pulse Oximetry 98 Intake & Output 09/16/18 09/17/18 09/17/18 18:59 06:59 18:59 Output Total 1900 / 1900 Balance -1900 / -1900 Weight 84.3 kg Output: Urine 1000 / 1000 Urine Amount (Catheter) 900 / 900 Suprapubic 900 / 900 Other: Mode Setting Left Groin Intermittent Intermittent Date of Last Bowel Movement 09/17/18 # Bowel Movements 1 Result Diagrams: 09/17/18 06:16 09/17/18 06:16 Medications and IVs: Active Medications Generic Name Dose Route Start Last Admin Trade Name Freq PRN Reason Stop Dose Admin Acetaminophen 650 mg 08/28/18 15:32 08/29/18 04:19 Tylenol PO 650 mg Q4H PRN Administration Temp > 100.4 Hydrocodone Bitart/Acetaminophen 1 tab 09/11/18 16:25 [place] 5/325 PO Q6H PRN Acute Pain Bisacodyl 10 mg 08/28/18 15:32 Dulcolax Supp RECTAL DAILY PRN SEVERE CONSITIPATION Collagenase 1 applicatio 08/30/18 09:00 09/17/18 10:01 Santyl Oint TOPICAL Not Given DAILY [facility] Dextrose 50 ml 08/28/18 15:28 D50w Vial IV.PUSH UNSCH PRN PER HYPOGLYCEMIA PROTOCOL Ferrous Sulfate 325 mg 09/13/18 17:00 09/16/18 18:36 Ferosul PO 325 mg BID@1200,1700 [facility] Administration Fluconazole 400 mg 09/14/18 20:00 09/16/18 20:34 Diflucan PO 400 mg Q24H SHRE[facility]AS Administration Glucagon 1 mg 08/28/18 15:28 Glucagon Inj OTHER PRN PRN for Hypoglycemia Protocol Insulin Aspart 0 unit 08/28/18 17:00 09/17/18 09:57 Novolog Insulin Correctional Sugar Inj SQ Not Given ACHS AND 3AM [facility] Protocol Insulin Human Isoph/Insulin Regular 14 units 09/02/18 09:10 09/17/18 09:55 Novolin 70/30 Inj SQ 14 units BID@0800,1700 [facility] Administration Lactulose 30 ml 08/28/18 15:32 Lactulose Liq PO DAILY PRN SEVERE CONSITIPATION Ondansetron HCl 4 mg 08/28/18 15:32 Zofran Inj IV.PUSH Q6H PRN NAUSEA OR VOMITING Senna/Docusate Sodium 1 tab 08/28/18 21:00 09/17/18 09:56 Diane-Colace PO 1 tab BID [facility] Administration Sennosides 17.2 mg 08/28/18 15:32 Senokot PO Q12H PRN Moderate Constipation Sodium Chloride 2 ml 09/03/18 21:00 09/17/18 09:57 Ns Flush IV.FLUSH 2 ml BID [facility] Administration Sodium Chloride 2 ml 09/03/18 17:03 Ns Flush IV.FLUSH PRN PRN FLUSH AFTER USING IV ACCESS Terbutaline Sulfate 1 mg 08/29/18 06:19 Brethine Inj SQ UNSCH PRN For Extravasation Objective Remarks: Abd:soft,nt,nd Lainez in place Right groin area with small drainage for now. 08/31 Abd:soft,nt,nd Left inquinal cellulitis noted which is improving. Crepitus noted. No signs of gangreen Lainez now with clear urine. Pt reports no drainage from left groin site 09/01 Abd:soft,nt,nd. Crepitus not palpated today. Lainez with clear urine. Purulent drainage from wound site. 09/02 Abd:soft,nt,nd. Crepitus not palpated today. Lainez with clear urine. Purulent drainage from wound site. 09/04 Abd:soft,nt,nd Packing in place with drainage SP tube draining clear urine 09/07 Abd:soft,nt,nd Cellulitis resolving Still with purlent drainage from left groin site SP tube clear 09/08 Abd:soft,nt,nd Cellulitis resolviing but still with collection in right inquinal wound Still with purlent drainage from left groin site SP tube clear Lainez with minimal drainage 09/09 Abd:soft,nt,nd Cellulitis resolviing but still with collection in right inquinal wound Still with purlent drainage from left groin site SP tube clear Lainez with minimal drainage 09/11 Abd:soft,nt,nd Wound VAC in place SP tube: clear urine 09/14 Abd:soft,nt,nd Ostomy working well VAC in good position; working well; no leak SP tube: urine clear 09/15 Abd:soft,nt,nd Ostomy working well VAC in good position; working well; no leak SP tube: urine clear 09/16 Abd:soft,nt,nd Ostomy working well VAC in good position; working well; no leak SP tube: urine clear Assessment and Plan - Plan 68 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 Once infection clears with need cystoscopy. May need SP tube placement in future. Will leave lainez for now. Air noted in SQ tissue over lower abdomen. WBC count is improving. Continue to monitor clinically. Hopefully urine drainage from left groin will stop after lainez has been placed. Will monitor. Continue IV abx for now. B/C positive: gram + Repeat UCx pending Will follow. 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 No drainage noted since placement of lainez catheter Continue IV abx per ID recommendations Continue present care. 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 CT shows still prominent collection in left inquinal canal Will need VAC placement in OR to resolve collection. Will plan for this week as OR time allows. 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 CT shows still prominent collection in left inquinal canal Plan for OR tomorrow NPO after MN 09/11 Stable s/p excison and debridement of left inquinal wound with VAC placement Will need return to OR on Friday to washout wound and change VAC 09/14 Stable s/p washout with VAC change yesterday OOB Today in OR for VAC change 09/15 Stable s/p washout with VAC change VAC in good position with no leak Will plan for VAC change Friday early AM in OR Will consult Plastic Surgery. Pt may need graft in future. 09/16 Stable s/p washout with VAC change VAC in good position with no leak Will plan for VAC change tomorrow early AM in OR NPO after MN Plastic Surgery input appreciated.
--- NOTE | 2018-09-17 12:25 | P.PNIM ---
Subjective Interval history: Patient reports he is feeling well today. No new issues. Eating well. Physical Exam Vital signs: Vital Signs 09/16/18 16:00 09/16/18 20:00 09/17/18 00:00 Temperature 98.4 F 98.5 F 98.1 F Pulse Rate 83 74 76 Respiratory Rate 18 18 18 Blood Pressure 117/60 129/64 110/61 Pulse Oximetry 98 97 98 09/17/18 00:59 09/17/18 04:00 09/17/18 08:00 Temperature 98 F 97.8 F Pulse Rate 67 75 Respiratory Rate 18 Blood Pressure 130/67 132/64 Pulse Oximetry 98 98 Intake & Output 09/16/18 09/17/18 09/17/18 18:59 06:59 18:59 Output Total 1900 / 1900 Balance -1900 / -1900 Weight 84.3 kg Output: Urine 1000 / 1000 Urine Amount (Catheter) 900 / 900 Suprapubic 900 / 900 Other: Mode Setting Left Groin Intermittent Intermittent Intermittent Date of Last Bowel Movement 09/17/18 09/17/18 # Bowel Movements 1 Narrative: GENERAL: Well-nourished male, in no acute distress CARDIOVASCULAR: Regular rate and rhythm without murmurs, gallops, or rubs. RESPIRATORY: Breath sounds equal bilaterally. No accessory muscle use. GASTROINTESTINAL: Abdomen soft, non-tender, nondistended. Colostomy present with formed stool. Suprapubic catheter drain in place. MUSCULOSKELETAL: No cyanosis, no edema. SKIN: Warm and dry. Left inguinal dressing C/D/I with wound vac. L ankle with dressing C/D/I. - Urinary Catheter Management Indwelling Urethral Catheter Cath placed during this visit: yes, but has since been removed by the nurse Reason for continuing: Chronic Urinary Retention Insertion date: 09/07/18 Insertion time: 16:00 Removal date: 09/10/18 Removal time: 16:00 Suprapubic Cath placed during this visit: yes Reason for continuing: Severe pressure ulcer/wound Insertion date: 09/03/18 Results - Labs CBC & Chem 7: 09/17/18 06:16 09/17/18 06:16 Laboratory Results - last 24 hr 09/16/18 09/16/18 09/16/18 12:31 17:13 20:02 WBC RBC Hgb Hct MCV MCH MCHC RDW Plt Count MPV Neut % (Auto) Lymph % (Auto) [place] % (Auto) Eos % (Auto) Baso % (Auto) Neut # (Auto) Lymph # (Auto) [place] # (Auto) Eos # (Auto) Baso # (Auto) WBC Differential Differential Comment Sodium Potassium Chloride Carbon Dioxide Anion Gap BUN Creatinine Estimated GFR POC Glucose 183 H 154 H 84 Random Glucose Calcium Total Bilirubin AST ALT Alkaline Phosphatase Total Protein Albumin 09/17/18 09/17/18 09/17/18 02:31 06:16 06:16 WBC 8.9 RBC 3.94 L Hgb 11.6 L Hct 34.5 L MCV 87.5 MCH 29.5 MCHC 33.7 RDW 14.2 Plt Count 252 MPV 8.1 Neut % (Auto) 64.6 Lymph % (Auto) 24.9 [place] % (Auto) 6.7 Eos % (Auto) 3.1 Baso % (Auto) 0.7 Neut # (Auto) 5.7 Lymph # (Auto) 2.2 [place] # (Auto) 0.6 Eos # (Auto) 0.3 Baso # (Auto) 0.1 WBC Differential . Differential Comment Auto diff final Sodium 140 Potassium 3.5 D Chloride 101 Carbon Dioxide 28.2 Anion Gap 11 BUN 21 H Creatinine 0.97 Estimated GFR 77 L POC Glucose 112 H Random Glucose 123 H Calcium 8.9 Total Bilirubin 0.3 AST 17 ALT 11 L Alkaline Phosphatase 54 Total Protein 7.8 Albumin 2.6 L 09/17/18 08:17 WBC RBC Hgb Hct MCV MCH MCHC RDW Plt Count MPV Neut % (Auto) Lymph % (Auto) [place] % (Auto) Eos % (Auto) Baso % (Auto) Neut # (Auto) Lymph # (Auto) [place] # (Auto) Eos # (Auto) Baso # (Auto) WBC Differential Differential Comment Sodium Potassium Chloride Carbon Dioxide Anion Gap BUN Creatinine Estimated GFR POC Glucose 127 H Random Glucose Calcium Total Bilirubin AST ALT Alkaline Phosphatase Total Protein Albumin - Procedures none Assessment and Plan - Assessment (1) UTI (urinary tract infection) Code(s): N39.0 - Urinary tract infection, site not specified Status: Acute (2) Sepsis Code(s): A41.9 - Sepsis, unspecified organism Status: Resolved (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 1. Left Fascicular Cutaneous Inguinal Fistula Initially admitted for septic shock, OR on 09/03/2018 for suprapubic catheter placement s/p Zosyn D/C'd on 09/14 by ID s/p E&D of fistula and wound VAC placement on 09/10/2018, s/p OR on 09/15 for Vac change Cont. Hydrocodone PRN pain control and APAP PRN Appreciate Urology assistance with management. Plan for wound VAC change in the OR tomorrow morning. Plastic surgery consulted on the patient and will examine at the next wound VAC change. 2. Urinary tract infection Continue Fluconazole started 09/04, complete 14 days, stop on 09/18 Neg Urine Cx 09/05 x48hrs, final Urine Cx 08/30 Rachel ID following 3. Type 2 Diabetes Stable, BS stable when diet followed Diabetic diet Cont. Insulin 70/30 14U BID and sliding scale insulin 4. Left lateral foot ankle ulceration s/p excision/biopsy of wound with skin plasty left lateral ankle, ostectomy left lateral malleolus on 09/13, per Podiatry Ok to DC per podiatry Will have dressing changed in 48-72 hours if patient in house Patient to follow up with Dr. Carrizales within 1 week of discharge Weight bearing as tolerated to the left LE 5. Tinea cruris, resolved s/p txt for 14 days with Nystatin cream 6. Sacral/gluteal decub Continue wound care 7. Colostomy Continue nursing management 8. Anemia, iron deficiency Diagnosed per iron studies H&H stable Cont. Ferrous Sulfate 325mg BID Continue to monitor 9. DVT Prophylaxis: SCD's 10. Dispo: Plan for wound VAC change tomorrow per urology Code Status: full (2) Sepsis Qualifiers: Sepsis type: sepsis due to unspecified organism Qualified Code(s): A41.9 - Sepsis, unspecified organism (5) Diabetes Qualifiers: Diabetes mellitus type: type 2
[2018-09-17] MEDS: Ferrous Sulfate 325 MG Tablet PO SCH ×2 (13:04→18:36)
[2018-09-18] MEDS: Insulin NovoLOG Aspart Correctional Sugar Inj SQ SCH ×5 (02:56→21:00)
[2018-09-18] MEDS ORDERED: Metoprolol Tartrate 25 MG Tablet PO ONE (06:20)
[2018-09-18] MEDS ORDERED: Chlorhexidine Gluconate 2% 1 Pack (2 Cloths) TOPICAL ONE (06:20)
[2018-09-18] MEDS ORDERED: Sodium Chlor 0.9% Inj 500 ML IV.SIG SCH (07:00)
[2018-09-18] MEDS ORDERED: Lidocaine PF 1% Inj 5 ML Syringe OTHER ONE (07:28)
--- NOTE | 2018-09-18 08:16 | P.OP ---
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 Risk and benefits were discussed preoperative patient is willing to proceed. Patient brought the operating identified myself as Sang Donahue. He is placed in a dorsal lithotomy position, prepped draped you sterile fashion, received preprocedure antibiotics and general LMA anesthesia was administered. The wound was irrigated with normal saline using a bulb syringe and the curette was used to debride any tissue. The wound again was washed out and then a medium size VAC was placed with dressings applied along with suction. There is no evidence of any leak. The patient was extubated and awoken and transferred recovery in stable condition. He will go undergo another VAC change on Friday.
[2018-09-18] MEDS ORDERED: fentaNYL Citrate Inj 100 MCG/2 ML Ampul ONE (08:19)
[2018-09-18] MEDS: Sodium Chloride 0.9% 2 ML Flush BID IV.FLUSH SCH (08:53)
--- NOTE | 2018-09-18 10:51 | P.PNIM ---
Subjective Interval history: Patient reports he is feeling okay today. He denies any pain. He status post washout and application of wound VAC. Physical Exam Vital signs: Vital Signs 09/17/18 12:00 09/17/18 16:00 09/17/18 20:00 Temperature 97.9 F 98.2 F 97.6 F Pulse Rate 80 80 78 Respiratory Rate 22 22 18 Blood Pressure 115/63 140/65 121/70 Pulse Oximetry 98 96 96 09/18/18 00:00 09/18/18 04:00 09/18/18 04:38 Temperature 98.2 F 97.7 F Pulse Rate 77 73 79 Respiratory Rate 18 18 Blood Pressure 117/63 120/74 Pulse Oximetry 98 99 09/18/18 08:15 09/18/18 08:30 09/18/18 08:45 Temperature 97.7 F Pulse Rate 72 70 72 Respiratory Rate 16 16 16 Blood Pressure 102/60 120/65 105/63 Pulse Oximetry 97 97 98 Intake & Output 09/17/18 09/18/18 09/18/18 18:59 06:59 18:59 Intake Total 400 / 400 Output Total 2225 / 2225 5 / 5 Balance -2225 / -2225 395 / 395 Weight 84.6 kg Intake: Anesthesia Amount 400 / 400 Output: Estimated Blood Loss 5 / 5 Urine Amount (Catheter) 2225 / 2225 Suprapubic 2225 / 2225 Other: Mode Setting Left Groin Intermittent Date of Last Bowel Movement 09/17/18 09/17/18 Narrative: GENERAL: Well-nourished male, in no acute distress CARDIOVASCULAR: Regular rate and rhythm without murmurs, gallops, or rubs. RESPIRATORY: Breath sounds equal bilaterally. No accessory muscle use. GASTROINTESTINAL: Abdomen soft, non-tender, nondistended. Colostomy present with formed stool. Suprapubic catheter drain in place. MUSCULOSKELETAL: No cyanosis, no edema. SKIN: Warm and dry. Left inguinal dressing C/D/I with wound vac. L ankle with dressing C/D/I. - Urinary Catheter Management Indwelling Urethral Catheter Cath placed during this visit: yes, but has since been removed by the nurse Reason for continuing: Chronic Urinary Retention Insertion date: 09/07/18 Insertion time: 16:00 Removal date: 09/10/18 Removal time: 16:00 Suprapubic Cath placed during this visit: yes Reason for continuing: Severe pressure ulcer/wound Insertion date: 09/03/18 Results - Labs CBC & Chem 7: 09/17/18 06:16 09/17/18 06:16 Laboratory Results - last 24 hr 09/17/18 09/17/18 09/17/18 12:50 18:01 20:23 POC Glucose 113 H 173 H 272 H 09/18/18 09/18/18 03:05 08:26 POC Glucose 162 H 201 H - Procedures none Assessment and Plan - Assessment (1) UTI (urinary tract infection) Code(s): N39.0 - Urinary tract infection, site not specified Status: Acute (2) Sepsis Code(s): A41.9 - Sepsis, unspecified organism Status: Resolved (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 1. Left Fascicular Cutaneous Inguinal Fistula Initially admitted for septic shock, OR on 09/03/2018 for suprapubic catheter placement s/p Zosyn D/C'd on 09/14 by ID s/p E&D of fistula and wound VAC placement on 09/10/2018, s/p OR on 09/15 for Vac change Cont. Hydrocodone PRN pain control and APAP PRN Appreciate Urology assistance with management. Repeat irrigation and washout today 09/18/18. Wound VAC replaced. Urology planning to repeat washout on Friday. Plastic surgery consulted on the patient. 2. Urinary tract infection Continue Fluconazole started 09/04, complete 14 days, stop on 09/18 Neg Urine Cx 09/05 x48hrs, final Urine Cx 08/30 Rachel ID following 3. Type 2 Diabetes Stable, BS stable when diet followed Diabetic diet Cont. Insulin 70/30 14U BID and sliding scale insulin 4. Left lateral foot ankle ulceration s/p excision/biopsy of wound with skin plasty left lateral ankle, ostectomy left lateral malleolus on 09/13, per Podiatry Ok to DC per podiatry Will have dressing changed in 48-72 hours if patient in house Patient to follow up with Dr. Carrizales within 1 week of discharge Weight bearing as tolerated to the left LE 5. Tinea cruris, resolved s/p txt for 14 days with Nystatin cream 6. Sacral/gluteal decub Continue wound care 7. Colostomy Continue nursing management 8. Anemia, iron deficiency Diagnosed per iron studies H&H stable Cont. Ferrous Sulfate 325mg BID Continue to monitor 9. DVT Prophylaxis: SCD's Discharge Planning: Repeat washout and wound VAC dressing change on Friday per urology. (2) Sepsis Qualifiers: Sepsis type: sepsis due to unspecified organism Qualified Code(s): A41.9 - Sepsis, unspecified organism (5) Diabetes Qualifiers: Diabetes mellitus type: type 2
[2018-09-18] MEDS: Senna/Docusate Sodium 8.6/50 MG Tablet PO SCH (11:06)
[2018-09-18] MEDS: Collagenase Oint 30 GM Tube TOPICAL SCH (11:08)
[2018-09-18] MEDS: Ferrous Sulfate 325 MG Tablet PO SCH ×2 (13:30→18:20)
[2018-09-19] MEDS: Sodium Chloride 0.9% 2 ML Flush BID IV.FLUSH SCH ×3 (00:01→23:17)
[2018-09-19] MEDS: Insulin NovoLOG Aspart Correctional Sugar Inj SQ SCH ×5 (06:06→23:16)
[2018-09-19] MEDS: Collagenase Oint 30 GM Tube TOPICAL SCH (08:30)
[2018-09-19] MEDS: Senna/Docusate Sodium 8.6/50 MG Tablet PO SCH ×3 (08:30→23:17)
[2018-09-19] MEDS: Ferrous Sulfate 325 MG Tablet PO SCH ×2 (11:26→16:26)
--- NOTE | 2018-09-19 11:37 | P.PNIM ---
Subjective Interval history: Patient reports he is feeling okay today. Pain is controlled. No new issues. Physical Exam Vital signs: Vital Signs 09/18/18 11:55 09/18/18 12:00 09/18/18 15:38 Temperature 97.4 F L 99.3 F Pulse Rate 75 76 79 Respiratory Rate 18 18 Blood Pressure 101/56 L 114/70 Pulse Oximetry 98 97 09/18/18 16:00 09/18/18 20:00 09/19/18 00:00 Temperature 98.0 F 98 F Pulse Rate 81 76 75 Respiratory Rate 18 18 Blood Pressure 119/62 123/65 Pulse Oximetry 98 98 09/19/18 07:00 09/19/18 07:38 09/19/18 08:00 Temperature 97.6 F Pulse Rate 69 69 Respiratory Rate 12 18 Blood Pressure 125/69 Pulse Oximetry 98 Intake & Output 09/18/18 09/19/18 09/19/18 18:59 06:59 18:59 Intake Total 1340 / 1340 Output Total 1905 / 1905 1800 / 1800 800 / 800 Balance -565 / -565 -1800 / -1800 -800 / -800 Intake: Oral 940 / 940 Anesthesia Amount 400 / 400 Output: Urine 1900 / 1900 1800 / 1800 Estimated Blood Loss 5 / 5 Urine Amount (Catheter) 800 / 800 Suprapubic 800 / 800 Other: Mode Setting Left Groin Intermittent Intermittent Left Scrotum Intermittent Date of Last Bowel Movement 09/19/18 Narrative: GENERAL: Well-nourished male, in no acute distress CARDIOVASCULAR: Regular rate and rhythm without murmurs, gallops, or rubs. RESPIRATORY: Breath sounds equal bilaterally. No accessory muscle use. GASTROINTESTINAL: Abdomen soft, non-tender, nondistended. Colostomy present with formed stool. Suprapubic catheter drain in place. MUSCULOSKELETAL: No cyanosis, no edema. SKIN: Warm and dry. Left inguinal dressing C/D/I with wound vac. L ankle with dressing C/D/I. - Urinary Catheter Management Indwelling Urethral Catheter Cath placed during this visit: yes, but has since been removed by the nurse Reason for continuing: Chronic Urinary Retention Insertion date: 09/07/18 Insertion time: 16:00 Removal date: 09/10/18 Removal time: 16:00 Suprapubic Cath placed during this visit: yes Reason for continuing: Severe pressure ulcer/wound Insertion date: 09/03/18 Results - Labs CBC & Chem 7: 09/17/18 06:16 09/17/18 06:16 Laboratory Results - last 24 hr 09/18/18 09/18/18 09/19/18 12:20 16: 00:07 POC Glucose 117 H 144 H 119 H 09/19/18 09/19/18 06:04 07:18 POC Glucose 137 H 151 H - Procedures none Assessment and Plan - Assessment (1) UTI (urinary tract infection) Code(s): N39.0 - Urinary tract infection, site not specified Status: Acute (2) Sepsis Code(s): A41.9 - Sepsis, unspecified organism Status: Resolved (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 1. Left Fascicular Cutaneous Inguinal Fistula Initially admitted for septic shock, OR on 09/03/2018 for suprapubic catheter placement s/p Zosyn D/C'd on 09/14 by ID s/p E&D of fistula and wound VAC placement on 09/10/2018, s/p OR on 09/15 for Vac change Pain controlled with hydrocodone as needed. Appreciate Urology assistance with management. Repeat irrigation and washout . Wound VAC replaced. Urology planning to repeat washout on Friday. Plastic surgery consulted on the patient. 2. Urinary tract infection Continue Fluconazole started 09/04, complete 14 days, stop on 09/18 Neg Urine Cx 09/05 x48hrs, final Urine Cx 107 Rachel ID following 3. Type 2 Diabetes Stable, BS stable when diet followed Diabetic diet Cont. Insulin 70/30 14U BID and sliding scale insulin 4. Left lateral foot ankle ulceration s/p excision/biopsy of wound with skin plasty left lateral ankle, ostectomy left lateral malleolus on 09/13, per Podiatry Ok to DC per podiatry Will have dressing changed in 48-72 hours if patient in house Patient to follow up with Dr. Carrizales within 1 week of discharge Weight bearing as tolerated to the left LE 5. Tinea cruris, resolved s/p txt for 14 days with Nystatin cream 6. Sacral/gluteal decub Continue wound care 7. Colostomy Continue nursing management 8. Anemia, iron deficiency Diagnosed per iron studies H&H stable Cont. Ferrous Sulfate 325mg BID Continue to monitor 9. DVT Prophylaxis: SCD's Discharge Planning: Repeat washout and wound VAC dressing change plan for Friday per urology. (2) Sepsis Qualifiers: Sepsis type: sepsis due to unspecified organism Qualified Code(s): A41.9 - Sepsis, unspecified organism (5) Diabetes Qualifiers: Diabetes mellitus type: type 2
[2018-09-20] MEDS: Insulin NovoLOG Aspart Correctional Sugar Inj SQ SCH ×5 (05:29→22:48)
[2018-09-20] MEDS: Sodium Chloride 0.9% 2 ML Flush BID IV.FLUSH SCH ×2 (08:53→22:45)
[2018-09-20] MEDS: Senna/Docusate Sodium 8.6/50 MG Tablet PO SCH ×2 (08:53→22:44)
[2018-09-20] MEDS: Collagenase Oint 30 GM Tube TOPICAL SCH (08:55)
--- NOTE | 2018-09-20 12:39 | P.PNIM ---
Subjective Interval history: Patient reports he is feeling okay today. No new issues. Physical Exam Vital signs: Vital Signs 09/19/18 15:39 09/19/18 16:00 09/19/18 20:00 Temperature 97.6 F 98.6 F Pulse Rate 69 70 73 Respiratory Rate 18 15 Blood Pressure 125/69 120/61 Pulse Oximetry 98 97 09/20/18 00:00 09/20/18 04:00 09/20/18 08:00 Temperature 97.7 F 97.5 F L 97.9 F Pulse Rate 73 66 71 Respiratory Rate 18 16 18 Blood Pressure 113/63 123/64 113/62 Pulse Oximetry 98 98 97 09/20/18 08:43 09/20/18 12:15 Temperature Pulse Rate 71 90 Respiratory Rate Blood Pressure Pulse Oximetry Intake & Output 09/19/18 09/20/18 09/20/18 18:59 06:59 18:59 Intake Total 640 / 640 Output Total 2750 / 2750 1800 / 1800 Balance -2110 / -2110 -1800 / -1800 Weight 88.9 kg Intake: IV 0 / 0 Oral 640 / 640 Output: Urine 1100 / 1100 Urine Amount (Catheter) 1650 / 1650 1800 / 1800 Suprapubic 1650 / 1650 1800 / 1800 Other: Mode Setting Left Groin Intermittent Intermittent Intermittent Left Scrotum Intermittent Date of Last Bowel Movement 09/19/18 09/20/18 # Incontinent Bowel Movements 1 1 - Urinary Catheter Management Indwelling Urethral Catheter Cath placed during this visit: yes, but has since been removed by the nurse Reason for continuing: Chronic Urinary Retention Insertion date: 09/07/18 Insertion time: 16:00 Removal date: 09/10/18 Removal time: 16:00 Suprapubic Cath placed during this visit: yes Reason for continuing: Severe pressure ulcer/wound Insertion date: 09/03/18 Results - Labs CBC & Chem 7: 09/17/18 06:16 09/17/18 06:16 Laboratory Results - last 24 hr 09/19/18 09/19/18 09/20/18 16:19 21:56 05:17 POC Glucose 136 H 212 H 102 09/20/18 09/20/18 07:50 12:05 POC Glucose 131 H 202 H - Procedures none Assessment and Plan - Assessment (1) UTI (urinary tract infection) Code(s): N39.0 - Urinary tract infection, site not specified Status: Acute (2) Sepsis Code(s): A41.9 - Sepsis, unspecified organism Status: Resolved (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 1. Left Fascicular Cutaneous Inguinal Fistula Initially admitted for septic shock, OR on 09/03/2018 for suprapubic catheter placement s/p Zosyn D/C'd on 09/14 by ID s/p E&D of fistula and wound VAC placement on 09/10/2018, s/p OR on 09/15 for Vac change Pain controlled with hydrocodone as needed. Appreciate Urology assistance with management. Repeat irrigation and washout . Wound VAC replaced. Urology planning to repeat washout tomorrow. Plastic surgery consulted on the patient. 2. Urinary tract infection Continue Fluconazole started 09/04, complete 14 days, stop on 09/18 Neg Urine Cx 09/05 x48hrs, final Urine Cx 08/30 Rachel ID following 3. Type 2 Diabetes Stable, BS stable when diet followed Diabetic diet Cont. Insulin 70/30 14U BID and sliding scale insulin 4. Left lateral foot ankle ulceration s/p excision/biopsy of wound with skin plasty left lateral ankle, ostectomy left lateral malleolus on 09/13, per Podiatry Ok to follow-up outpatient per podiatry Will have dressing changed in 48-72 hours if patient in house Patient to follow up with Dr. Carrizales within 1 week of discharge Weight bearing as tolerated to the left LE 5. Tinea cruris, resolved s/p txt for 14 days with Nystatin cream 6. Sacral/gluteal decub Continue wound care 7. Colostomy Continue nursing management 8. Anemia, iron deficiency Diagnosed per iron studies H&H stable Cont. Ferrous Sulfate 325mg BID Continue to monitor 9. DVT Prophylaxis: SCD's Discharge Planning: Repeat washout and wound VAC dressing change plan for Friday per urology. (2) Sepsis Qualifiers: Sepsis type: sepsis due to unspecified organism Qualified Code(s): A41.9 - Sepsis, unspecified organism (5) Diabetes Qualifiers: Diabetes mellitus type: type 2
[2018-09-20] MEDS: Ferrous Sulfate 325 MG Tablet PO SCH ×2 (13:27→17:36)
[2018-09-21] MEDS: Insulin NovoLOG Aspart Correctional Sugar Inj SQ SCH ×5 (04:21→23:14)
[2018-09-21] MEDS ORDERED: Metoprolol Tartrate 25 MG Tablet PO ONE (06:00)
[2018-09-21] MEDS ORDERED: Sodium Chlor 0.9% Inj 500 ML IV.SIG SCH (06:00)
[2018-09-21] MEDS ORDERED: Chlorhexidine Gluconate 2% 1 Pack (2 Cloths) TOPICAL ONE (06:00)
[2018-09-21] MEDS ORDERED: Lidocaine PF 1% Inj 5 ML Syringe OTHER ONE (07:47)
[2018-09-21] MEDS ORDERED: Phenylephrine/NS 1000 MCG/10ML Syringe IV.PUSH ONE (07:47)
[2018-09-21] MEDS: Senna/Docusate Sodium 8.6/50 MG Tablet PO SCH ×2 (08:00→21:08)
[2018-09-21] MEDS: Collagenase Oint 30 GM Tube TOPICAL SCH (08:12)
[2018-09-21] MEDS: Sodium Chloride 0.9% 2 ML Flush BID IV.FLUSH SCH ×2 (08:12→21:08)
--- NOTE | 2018-09-21 08:39 | P.OP ---
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 Patient here today to undergo washout with VAC change. Risk and benefits were discussed preoperatively patient is willing to proceed. Patient was brought to the OR and placed in the dorsolithotomy position, he was prepped and draped in usual sterile fashion and received general LMA anesthesia. The wound side was irrigated with normal saline and any tissue was debrided. Overall the wound is clean. The VAC was then replaced with a medium-sized sponge. Small areas of blistering were identified around the wound site. Dressing was placed to avoid the small areas of blistering and Xeroform gauze was then placed over the areas. He was awoken and extubated transferred from stable condition. He will undergo another VAC change later this week.
--- NOTE | 2018-09-21 12:46 | P.PNPOD ---
Subjective Interval history: s/p Left ankle I and D, fibula exostosis and skin plasty DOS 09/13/18, Dr Christiansen Seen at bedside this am, no LE complaints and no calf pain. Physical Exam Vital signs: Vital Signs 09/20/18 15:57 09/20/18 18:39 09/20/18 20:00 Temperature 98.2 F 97.8 F Pulse Rate 77 77 71 Respiratory Rate 18 21 Blood Pressure 113/72 127/60 Pulse Oximetry 95 98 09/21/18 00:00 09/21/18 00:30 09/21/18 03:05 Temperature 97.3 F L Pulse Rate 70 61 Respiratory Rate 19 18 Blood Pressure 114/60 Pulse Oximetry 99 09/21/18 04:00 09/21/18 04:30 09/21/18 08:00 Temperature 98.0 F 98.9 F Pulse Rate 69 73 73 Respiratory Rate 20 18 Blood Pressure 127/64 120/59 L Pulse Oximetry 98 98 09/21/18 08:48 09/21/18 09:00 09/21/18 09:15 Temperature 98 F 97.9 F Pulse Rate 68 62 65 Respiratory Rate 20 18 15 Blood Pressure 107/57 L 107/60 114/57 L Pulse Oximetry 99 98 100 09/21/18 09:20 Temperature Pulse Rate Respiratory Rate Blood Pressure Pulse Oximetry 100 Intake & Output 09/20/18 09/21/18 09/21/18 18:59 06:59 18:59 Intake Total 600 / 600 400 / 400 Output Total 1850 / 1850 2800 / 2800 800 / 800 Balance -1250 / -1250 -2800 / -2800 -400 / -400 Weight 89.2 kg Intake: Oral 600 / 600 Anesthesia Amount 400 / 400 Output: Urine 1100 / 1100 Urine Amount (Catheter) 750 / 750 2800 / 2800 800 / 800 Suprapubic 750 / 750 2800 / 2800 800 / 800 Other: Mode Setting Left Groin Intermittent Intermittent Continuous Date of Last Bowel Movement 09/20/18 09/21/18 09/21/18 # Bowel Movements 1 # Incontinent Bowel Movements 1 Narrative: LLE Intact sutures, no erythema and no edema Well approximated incision. NVS unchanged. Medications and Allergies Active Medications: Active Medications Acetaminophen (Tylenol) 650 mg PO Q4H PRN PRN Reason: Temp > 100.4 Last Admin: 08/29/18 04:19 Dose: 650 mg Hydrocodone Bitart/Acetaminophen ([place] 5/325) 1 tab PO Q6H PRN PRN Reason: Acute Pain Bisacodyl (Dulcolax Supp) 10 mg RECTAL DAILY PRN PRN Reason: SEVERE CONSITIPATION Collagenase (Santyl Oint) 1 applicatio TOPICAL DAILY [facility] Last Admin: 09/21/18 08:12 Dose: Not Given Dextrose (D50w Vial) 50 ml IV.PUSH UNSCH PRN PRN Reason: PER HYPOGLYCEMIA PROTOCOL Ferrous Sulfate (Ferosul) 325 mg PO BID@1200,1700 [facility] Last Admin: 09/20/18 17:36 Dose: 325 mg Fluconazole (Diflucan) 400 mg PO Q24H [facility] Last Admin: 09/20/18 22:44 Dose: 400 mg Glucagon (Glucagon Inj) 1 mg OTHER PRN PRN PRN Reason: for Hypoglycemia Protocol Lactated Ringer's (Lr 1000 Ml Inj) 1,000 mls @ 30 mls/hr IV.SIG .Q24H [facility] Stop: 09/22/18 05:59 Sodium Chloride (Ns Inj) 500 mls @ 30 mls/hr IV.SIG .Q10H [facility] Insulin Aspart (Novolog Insulin Correctional Sugar Inj) 0 unit SQ ACHS AND 3AM [facility]; Protocol Last Admin: 09/21/18 08:12 Dose: Not Given Insulin Human Isoph/Insulin Regular (Novolin 70/30 Inj) 14 units SQ BID@0800, 1700 [facility] Last Admin: 09/21/18 08:12 Dose: Not Given Lactulose (Lactulose Liq) 30 ml PO DAILY PRN PRN Reason: SEVERE CONSITIPATION Miscellaneous Information (Mis Nursing Information) 1 each OTHER UNSCH PRN PRN Reason: SEE LABEL COMMENTS Stop: 09/22/18 08:47 Ondansetron HCl (Zofran Inj) 4 mg IV.PUSH Q6H PRN PRN Reason: NAUSEA OR VOMITING Senna/Docusate Sodium (Diane-Colace) 1 tab PO BID [facility] Last Admin: 09/21/18 08:00 Dose: 1 tab Sennosides (Senokot) 17.2 mg PO Q12H PRN PRN Reason: Moderate Constipation Sodium Chloride (Ns Flush) 2 ml IV.FLUSH BID [facility] Last Admin: 09/21/18 08:12 Dose: 2 ml Sodium Chloride (Ns Flush) 2 ml IV.FLUSH PRN PRN PRN Reason: FLUSH AFTER USING IV ACCESS Terbutaline Sulfate (Brethine Inj) 1 mg SQ UNSCH PRN PRN Reason: For Extravasation Allergies Allergy/AdvReac Type Severity Reaction Status Date / Time Influenza Virus Vaccines Allergy Severe Anaphylaxis Verified 08/28/18 12:12 *MDRO Multi-Drug Resistant AdvReac Unknown Flushing Uncoded 08/28/18 12:12 Organism Home Medications Medication Instructions Recorded Confirmed Type No Known Home Medications 08/28/18 08/28/18 History Results - Labs CBC & Chem 7: 09/17/18 06:16 09/17/18 06:16 Laboratory Results - last 24 hr 09/20/18 09/20/18 09/21/18 17:28 22:47 03:50 POC Glucose 78 183 H 154 H 09/21/18 08:51 POC Glucose 156 H - Procedures none Assessment and Plan - Assessment (1) Exostosis of left fibula Code(s): M89.8X6 - Other specified disorders of bone, lower leg Status: Acute (2) Chronic ulcer of left ankle with fat layer exposed Code(s): L97.322 - Non-pressure chronic ulcer of left ankle with fat layer exposed Status: Acute - Plan Dressing change 09/21/18 OK to d/c per Podiatry f/u with Dr Christiansen with in 1 week of d/c keep dressing clean dry and intact.
[2018-09-21] MEDS: Ferrous Sulfate 325 MG Tablet PO SCH ×2 (13:53→17:11)
[2018-09-21] MEDS ORDERED: fentaNYL Citrate Inj 100 MCG/2 ML Ampul ONE (13:55)
--- NOTE | 2018-09-21 16:29 | P.PNIM ---
Subjective Interval history: Patient reports he is feeling okay today. No new complaints. Eating well. Had washout and wound VAC replaced today. Physical Exam Vital signs: Vital Signs 09/20/18 18:39 09/20/18 20:00 09/21/18 00:00 Temperature 97.8 F 97.3 F L Pulse Rate 77 71 70 Respiratory Rate 21 19 Blood Pressure 127/60 114/60 Pulse Oximetry 98 99 09/21/18 00:30 09/21/18 03:05 09/21/18 04:00 Temperature 98.0 F Pulse Rate 61 69 Respiratory Rate 18 20 Blood Pressure 127/64 Pulse Oximetry 98 09/21/18 04:30 09/21/18 08:00 09/21/18 08:48 Temperature 98.9 F 98 F Pulse Rate 73 73 68 Respiratory Rate 18 20 Blood Pressure 120/59 L 107/57 L Pulse Oximetry 98 99 09/21/18 09:00 09/21/18 09:15 09/21/18 09:20 Temperature 97.9 F Pulse Rate 62 65 Respiratory Rate 18 15 Blood Pressure 107/60 114/57 L Pulse Oximetry 98 100 100 09/21/18 12:00 Temperature 99.3 F Pulse Rate 77 Respiratory Rate 18 Blood Pressure 104/64 Pulse Oximetry 97 Intake & Output 09/20/18 09/21/18 09/21/18 18:59 06:59 18:59 Intake Total 600 / 600 400 / 400 Output Total 1850 / 1850 2800 / 2800 800 / 800 Balance -1250 / -1250 -2800 / -2800 -400 / -400 Weight 89.2 kg Intake: Oral 600 / 600 Anesthesia Amount 400 / 400 Output: Urine 1100 / 1100 Urine Amount (Catheter) 750 / 750 2800 / 2800 800 / 800 Suprapubic 750 / 750 2800 / 2800 800 / 800 Other: Mode Setting Left Groin Intermittent Intermittent Continuous Date of Last Bowel Movement 09/20/18 09/21/18 09/21/18 # Bowel Movements 1 # Incontinent Bowel Movements 1 Narrative: GENERAL: Well-nourished male, in no acute distress CARDIOVASCULAR: Regular rate and rhythm without murmurs, gallops, or rubs. RESPIRATORY: Breath sounds equal bilaterally. No accessory muscle use. GASTROINTESTINAL: Abdomen soft, non-tender, nondistended. Colostomy present with formed stool. Suprapubic catheter drain in place. MUSCULOSKELETAL: No cyanosis, no edema. SKIN: Warm and dry. Left inguinal dressing C/D/I with wound vac. L ankle with dressing C/D/I. - Urinary Catheter Management Indwelling Urethral Catheter Cath placed during this visit: yes, but has since been removed by the nurse Reason for continuing: Chronic Urinary Retention Insertion date: 09/07/18 Insertion time: 16:00 Removal date: 09/10/18 Removal time: 16:00 Suprapubic Cath placed during this visit: yes Reason for continuing: Severe pressure ulcer/wound Insertion date: 09/03/18 Results - Labs CBC & Chem 7: 09/17/18 06:16 09/17/18 06:16 Laboratory Results - last 24 hr 09/20/18 09/20/18 09/21/18 17:28 22:47 03:50 POC Glucose 78 183 H 154 H 09/21/18 09/21/18 08:51 13:23 POC Glucose 156 H 328 H - Procedures none Assessment and Plan - Assessment (1) UTI (urinary tract infection) Code(s): N39.0 - Urinary tract infection, site not specified Status: Acute (2) Sepsis Code(s): A41.9 - Sepsis, unspecified organism Status: Resolved (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 1. Left Fascicular Cutaneous Inguinal Fistula Initially admitted for septic shock, OR on 09/03/2018 for suprapubic catheter placement s/p Zosyn D/C'd on 09/14 by ID s/p E&D of fistula and wound VAC placement on 09/10/2018, s/p OR on 09/15 for Vac change Pain controlled with hydrocodone as needed. Appreciate Urology assistance with management. Repeat irrigation and washout , 09/21/18. Wound VAC replaced. Urology planning to repeat washout later this week. Plastic surgery consulted on the patient. 2. Urinary tract infection Continue Fluconazole started 09/04, complete 14 days, stop on 09/18 Neg Urine Cx 09/05 x48hrs, final Urine Cx 08/30 Rachel ID following 3. Type 2 Diabetes Stable, BS stable when diet followed Diabetic diet Cont. Insulin 70/30 14U BID and sliding scale insulin 4. Left lateral foot ankle ulceration s/p excision/biopsy of wound with skin plasty left lateral ankle, ostectomy left lateral malleolus on 09/13, per Podiatry Ok to follow-up outpatient per podiatry Patient to follow up with Dr. Carrizales within 1 week of discharge Weight bearing as tolerated to the left LE 5. Tinea cruris, resolved s/p txt for 14 days with Nystatin cream 6. Sacral/gluteal decub Continue wound care 7. Colostomy Continue nursing management 8. Anemia, iron deficiency Diagnosed per iron studies H&H stable Cont. Ferrous Sulfate 325mg BID Continue to monitor 9. DVT Prophylaxis: SCD's Discharge Planning: Repeat washout and wound VAC dressing change plan for later this week per urology. (2) Sepsis Qualifiers: Sepsis type: sepsis due to unspecified organism Qualified Code(s): A41.9 - Sepsis, unspecified organism (5) Diabetes Qualifiers: Diabetes mellitus type: type 2
[2018-09-22] MEDS: Insulin NovoLOG Aspart Correctional Sugar Inj SQ SCH ×4 (03:54→16:40)
--- NOTE | 2018-09-22 08:18 | P.PNURO ---
Subjective Patient symptoms today: Pt seen and examined. Objective Vital Signs: Vital Signs 09/21/18 08:48 09/21/18 09:00 09/21/18 09:15 Temperature 98 F 97.9 F Pulse Rate 68 62 65 Respiratory Rate 20 18 15 Blood Pressure 107/57 L 107/60 114/57 L Pulse Oximetry 99 98 100 09/21/18 09:20 09/21/18 12:00 09/21/18 16:00 Temperature 99.3 F 99.0 F Pulse Rate 77 77 Respiratory Rate 18 18 Blood Pressure 104/64 110/72 Pulse Oximetry 100 97 99 09/21/18 20:00 09/21/18 20:30 09/22/18 00:00 Temperature 97.6 F 98.2 F Pulse Rate 71 73 72 Respiratory Rate 17 15 Blood Pressure 117/63 118/58 L Pulse Oximetry 98 97 09/22/18 00:30 09/22/18 04:00 09/22/18 04:30 Temperature 98.3 F Pulse Rate 75 81 67 Respiratory Rate 19 Blood Pressure 121/81 Pulse Oximetry 98 Intake & Output 09/21/18 09/22/18 09/22/18 18:59 06:59 18:59 Intake Total 640 / 640 Output Total 1400 / 1400 1999 Balance -760 / -760 -1999 Weight 88.1 kg Intake: Oral 240 / 240 Anesthesia Amount 400 / 400 Output: Urine Amount (Catheter) 1400 / 1400 1999 Suprapubic 1400 / 1400 1999 Other: Mode Setting Left Groin Continuous Intermittent Date of Last Bowel Movement 09/20/18 09/21/18 09/22/18 Result Diagrams: 09/17/18 06:16 09/17/18 06:16 Medications and IVs: Active Medications Generic Name Dose Route Start Last Admin Trade Name Freq PRN Reason Stop Dose Admin Acetaminophen 650 mg 08/28/18 15:32 08/29/18 04:19 Tylenol PO 650 mg Q4H PRN Administration Temp > 100.4 Hydrocodone Bitart/Acetaminophen 1 tab 09/11/18 16:25 [place] 5/325 PO Q6H PRN Acute Pain Bisacodyl 10 mg 08/28/18 15:32 Dulcolax Supp RECTAL DAILY PRN SEVERE CONSITIPATION Collagenase 1 applicatio 08/30/18 09:00 09/21/18 08:12 Santyl Oint TOPICAL Not Given DAILY [facility] Dextrose 50 ml 08/28/18 15:28 D50w Vial IV.PUSH UNSCH PRN PER HYPOGLYCEMIA PROTOCOL Ferrous Sulfate 325 mg 09/13/18 17:00 09/21/18 17:11 Ferosul PO 325 mg BID@1200,1700 [facility] Administration Fluconazole 400 mg 09/14/18 20:00 09/21/18 21:08 Diflucan PO 400 mg Q24H [facility] Administration Glucagon 1 mg 08/28/18 15:28 Glucagon Inj OTHER PRN PRN for Hypoglycemia Protocol Sodium Chloride 500 mls @ 30 mls/hr 09/21/18 06:00 Ns Inj IV.SIG .Q10H [facility] Insulin Aspart 0 unit 08/28/18 17:00 09/22/18 03:54 Novolog Insulin Correctional Sugar Inj SQ Not Given ACHS AND 3AM [facility] Protocol Insulin Human Isoph/Insulin Regular 14 units 09/02/18 09:10 09/21/18 17:12 Novolin 70/30 Inj SQ 14 units BID@0800,1700 [facility] Administration Lactulose 30 ml 08/28/18 15:32 Lactulose Liq PO DAILY PRN SEVERE CONSITIPATION Miscellaneous Information 1 each 09/21/18 08:48 Misc Nursing Information OTHER 09/22/18 08:47 UNSCH PRN SEE LABEL COMMENTS Ondansetron HCl 4 mg 08/28/18 15:32 Zofran Inj IV.PUSH Q6H PRN NAUSEA OR VOMITING Senna/Docusate Sodium 1 tab 08/28/18 21:00 09/21/18 21:08 Diane-Colace PO 1 tab BID [facility] Administration Sennosides 17.2 mg 08/28/18 15:32 Senokot PO Q12H PRN Moderate Constipation Sodium Chloride 2 ml 09/03/18 21:00 09/21/18 21:08 Ns Flush IV.FLUSH 2 ml BID [facility] Administration Sodium Chloride 2 ml 09/03/18 17:03 Ns Flush IV.FLUSH PRN PRN FLUSH AFTER USING IV ACCESS Terbutaline Sulfate 1 mg 08/29/18 06:19 Brethine Inj SQ UNSCH PRN For Extravasation Objective Remarks: Abd:soft,nt,nd Lainez in place Right groin area with small drainage for now. 08/31 Abd:soft,nt,nd Left inquinal cellulitis noted which is improving. Crepitus noted. No signs of gangreen Lainez now with clear urine. Pt reports no drainage from left groin site 09/01 Abd:soft,nt,nd. Crepitus not palpated today. Lainez with clear urine. Purulent drainage from wound site. 09/02 Abd:soft,nt,nd. Crepitus not palpated today. Lainez with clear urine. Purulent drainage from wound site. 09/04 Abd:soft,nt,nd Packing in place with drainage SP tube draining clear urine 09/07 Abd:soft,nt,nd Cellulitis resolving Still with purlent drainage from left groin site SP tube clear 09/08 Abd:soft,nt,nd Cellulitis resolviing but still with collection in right inquinal wound Still with purlent drainage from left groin site SP tube clear Lainez with minimal drainage 09/09 Abd:soft,nt,nd Cellulitis resolviing but still with collection in right inquinal wound Still with purlent drainage from left groin site SP tube clear Lainez with minimal drainage 09/11 Abd:soft,nt,nd Wound VAC in place SP tube: clear urine 09/14 Abd:soft,nt,nd Ostomy working well VAC in good position; working well; no leak SP tube: urine clear 09/15 Abd:soft,nt,nd Ostomy working well VAC in good position; working well; no leak SP tube: urine clear 09/16 Abd:soft,nt,nd Ostomy working well VAC in good position; working well; no leak SP tube: urine clear 09/22 Abd:soft,nt,nd Ostomy working well VAC in good position; working well; no leak SP tube: urine clear Assessment and Plan - Plan 68 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 Once infection clears with need cystoscopy. May need SP tube placement in future. Will leave lainez for now. Air noted in SQ tissue over lower abdomen. WBC count is improving. Continue to monitor clinically. Hopefully urine drainage from left groin will stop after lainez has been placed. Will monitor. Continue IV abx for now. B/C positive: gram + Repeat UCx pending Will follow. 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 No drainage noted since placement of lainez catheter Continue IV abx per ID recommendations Continue present care. 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 No drainage noted since placement of lianez catheter Continue IV abx per ID recommendations Possible OR on for cystoscopy/cystogram 09/02 68 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 CT shows still prominent collection in left inquinal canal Will need VAC placement in OR to resolve collection. Will plan for this week as OR time allows. 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 CT shows still prominent collection in left inquinal canal Plan for OR tomorrow NPO after MN 09/11 Stable s/p excison and debridement of left inquinal wound with VAC placement Will need return to OR on Friday to washout wound and change VAC 09/14 Stable s/p washout with VAC change yesterday OOB Today in OR for VAC change 09/15 Stable s/p washout with VAC change VAC in good position with no leak Will plan for VAC change Friday early AM in OR Will consult Plastic Surgery. Pt may need graft in future. 09/16 Stable s/p washout with VAC change VAC in good position with no leak Will plan for VAC change tomorrow early AM in OR NPO after MN Plastic Surgery input appreciated. 09/22 Stable s/p washout with VAC change VAC in good position with no leak Will plan for VAC change tomorrow early AM in OR NPO after MN
[2018-09-22] MEDS: Collagenase Oint 30 GM Tube TOPICAL SCH (08:37)
[2018-09-22] MEDS: Sodium Chloride 0.9% 2 ML Flush BID IV.FLUSH SCH (08:37)
[2018-09-22] MEDS: Senna/Docusate Sodium 8.6/50 MG Tablet PO SCH (08:37)
[2018-09-22] MEDS: Ferrous Sulfate 325 MG Tablet PO SCH ×2 (11:46→16:39)
--- NOTE | 2018-09-22 15:42 | P.PNIM ---
Subjective Interval history: Patient reports he is feeling okay today. Pain is controlled. Urology planning for wound VAC change tomorrow. Physical Exam Vital signs: Vital Signs 09/21/18 16:00 09/21/18 20:00 09/21/18 20:30 Temperature 99.0 F 97.6 F Pulse Rate 77 71 73 Respiratory Rate 18 17 Blood Pressure 110/72 117/63 Pulse Oximetry 99 98 09/22/18 00:00 09/22/18 00:30 09/22/18 04:00 Temperature 98.2 F 98.3 F Pulse Rate 72 75 81 Respiratory Rate 15 19 Blood Pressure 118/58 L 121/81 Pulse Oximetry 97 98 09/22/18 04:30 09/22/18 08:00 09/22/18 12:00 Temperature 98.1 F 97.6 F Pulse Rate 67 69 83 Respiratory Rate 20 20 Blood Pressure 123/64 113/68 Pulse Oximetry 99 99 Intake & Output 09/21/18 09/22/18 09/22/18 18:59 06:59 18:59 Intake Total 640 / 640 Output Total 1400 / 1400 1999 1450 / 1450 Balance -760 / -760 -1999 / -1450 / -1450 Weight 88.1 kg Intake: Oral 240 / 240 Anesthesia Amount 400 / 400 Output: Urine Amount (Catheter) 1400 / 1400 1999 1450 / 1450 Suprapubic 1400 / 1400 1999 1450 / 1450 Other: Mode Setting Left Groin Continuous Intermittent Continuous Date of Last Bowel Movement 09/20/18 09/21/18 09/22/18 Narrative: GENERAL: Well-nourished male, in no acute distress CARDIOVASCULAR: Regular rate and rhythm without murmurs, gallops, or rubs. RESPIRATORY: Breath sounds equal bilaterally. No accessory muscle use. GASTROINTESTINAL: Abdomen soft, non-tender, nondistended. Colostomy present with formed stool. : Suprapubic catheter drain in place. MUSCULOSKELETAL: No cyanosis, no edema. SKIN: Warm and dry. Left inguinal dressing C/D/I with wound vac. L ankle with dressing C/D/I. - Urinary Catheter Management Indwelling Urethral Catheter Cath placed during this visit: yes, but has since been removed by the nurse Reason for continuing: Chronic Urinary Retention Insertion date: 09/07/18 Insertion time: 16:00 Removal date: 09/10/18 Removal time: 16:00 Suprapubic Cath placed during this visit: yes Reason for continuing: Severe pressure ulcer/wound Insertion date: 09/03/18 Results - Labs CBC & Chem 7: 09/17/18 06:16 09/17/18 06:16 Laboratory Results - last 24 hr 09/21/18 09/21/18 09/22/18 17:10 23:13 03:54 POC Glucose 127 H 130 H 134 H 09/22/18 09/22/18 07:38 11:36 POC Glucose 180 H 132 H - Procedures none Assessment and Plan - Assessment (1) UTI (urinary tract infection) Code(s): N39.0 - Urinary tract infection, site not specified Status: Acute (2) Sepsis Code(s): A41.9 - Sepsis, unspecified organism Status: Resolved (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 Ongoing washout and wound VAC change per urology. 1. Left Fascicular Cutaneous Inguinal Fistula Initially admitted for septic shock, OR on 09/03/2018 for suprapubic catheter placement s/p Zosyn D/C'd on 09/14 by ID s/p E&D of fistula and wound VAC placement on 09/10/2018, s/p OR on 09/15 for Vac change Pain controlled with hydrocodone as needed. Appreciate Urology assistance with management. Repeat irrigation and washout , 09/21/18. Wound VAC changed. Urology planning to repeat washout and wound VAC dressing change in a.m. Plastic surgery consulted on the patient. 2. Urinary tract infection Continue Fluconazole started 09/04, complete 14 days, stop on 09/18 Neg Urine Cx 09/05 x48hrs, final Urine Cx 08/30 Rachel ID following 3. Type 2 Diabetes Stable, BS stable when diet followed Diabetic diet Cont. Insulin 70/30 14U BID and sliding scale insulin 4. Left lateral foot ankle ulceration s/p excision/biopsy of wound with skin plasty left lateral ankle, ostectomy left lateral malleolus on 09/13, per Podiatry Ok to follow-up outpatient per podiatry Patient to follow up with Dr. Carrizales within 1 week of discharge Weight bearing as tolerated to the left LE 5. Tinea cruris, resolved s/p txt for 14 days with Nystatin cream 6. Sacral/gluteal decub Continue wound care 7. Colostomy Continue nursing management 8. Anemia, iron deficiency Diagnosed per iron studies H&H stable Cont. Ferrous Sulfate 325mg BID Continue to monitor 9. DVT Prophylaxis: SCD's Discharge Planning: Repeat washout and wound VAC dressing change tomorrow per urology. Will need SNF placement when ready. (2) Sepsis Qualifiers: Sepsis type: sepsis due to unspecified organism Qualified Code(s): A41.9 - Sepsis, unspecified organism (5) Diabetes Qualifiers: Diabetes mellitus type: type 2
--- NOTE | 2018-09-22 16:43 | P.PNID ---
Subjective Remarks: afebrile stasble WBC stable creatinine sp Cystogram, flexible cystoscopy, antegrade urethrogram, placement of suprapubic tube catheter, irrigation and packing of left inguinal wound s/p excison and debridement of left inquinal wound with VAC placement Antibiotics: fluconazole 400 zosyn Allergies/Adverse Reactions: Allergies Influenza Virus Vaccines Allergy (Severe, Verified 08/28/18 12:12) Anaphylaxis *MDRO Multi-Drug Resistant Organism Adverse Reaction (Unknown, Uncoded 08/28/18 12:12) Flushing 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 Objective Vital Signs 09/21/18 20:00 09/21/18 20:30 09/22/18 00:00 Temperature 97.6 F 98.2 F Pulse Rate 71 73 72 Respiratory Rate 17 15 Blood Pressure 117/63 118/58 L Pulse Oximetry 98 97 09/22/18 00:30 09/22/18 04:00 09/22/18 04:30 Temperature 98.3 F Pulse Rate 75 81 67 Respiratory Rate 19 Blood Pressure 121/81 Pulse Oximetry 98 09/22/18 08:00 09/22/18 12:00 Temperature 98.1 F 97.6 F Pulse Rate 69 83 Respiratory Rate 20 20 Blood Pressure 123/64 113/68 Pulse Oximetry 99 99 Intake & Output 09/21/18 09/22/18 09/22/18 18:59 06:59 18:59 Intake Total 640 / 640 Output Total 1400 / 1400 1999 1450 / 1450 Balance -760 / -760 -2000 / -2000 -1450 / -1450 Weight 88.1 kg Intake: Oral 240 / 240 Anesthesia Amount 400 / 400 Output: Urine Amount (Catheter) 1400 / 1400 1999 1450 / 1450 Suprapubic 1400 / 1400 1999 1450 / 1450 Other: Mode Setting Left Groin Continuous Intermittent Continuous Date of Last Bowel Movement 09/20/18 09/21/18 09/22/18 Lab - Chemistry Results 09/20/18 09/20/18 09/21/18 17:28 22:47 03:50 POC Glucose 78 183 H 154 H 09/21/18 09/21/18 09/21/18 08:51 13:23 17:10 POC Glucose 156 H 328 H 127 H 09/21/18 09/22/18 09/22/18 23:13 03:54 07:38 POC Glucose 130 H 134 H 180 H 09/22/18 09/22/18 11:36 16:37 POC Glucose 132 H 126 H Imaging: ITS Impressions Chest X-Ray 08/28/18 12:34 CONCLUSION: No acute cardiopulmonary disease. Abdomen/Pelvis CT 08/29/18 00:00 CONCLUSION: 1. Abnormal gas collection along the left inguinal region which extends out laterally into the subcutaneous fat with surrounding inflammatory change. There is an abnormal gas collection also noted along the base of the scrotum and perineum likely is continuous with this.. There is soft tissue swelling and thickening around the base of the penis. No drainable fluid collection. 2. Bladder wall thickening. 3. Small bilateral pleural effusions. 4. Mildly nonspecific bowel gas pattern most characteristic of an ileus. Foot X-Ray 08/29/18 09:40 CONCLUSION: Chronic change as described above. An area of acute bony destruction or acute periosteal reaction is not clearly seen on this plain film examination. Cystogram 09/03/18 00:00 CONCLUSION: 1. Small size bladder with significant trabeculations consistent with chronic bladder outlet obstruction 2. Reflux of contrast into an enlarged distal right ureter. Ankle X-Ray 09/13/18 00:00 CONCLUSION: 1. Chronic likely posttraumatic and degenerative changes, as above. Pelvis CT 09/14/18 00:00 CONCLUSION: 1. Abscess in the left lower abdominal quadrant extending into the inguinal region into the left side of the scrotum seen previously appears to been successfully surgically excised. A large soft tissue defect is seen in the prior location of the abscess. 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 2. Stable postsurgical changes with a colonic ostomy in the left lower abdominal quadrant. A line of surgical aneta identified in the expected location of the rectosigmoid junction. 3. Urinary bladder is decompressed with a suprapubic catheter. Degree of mural thickening has diminished from the prior. Physical Exam: GENERAL: NAD SKIN: Warm and dry. No rash HEAD: Atraumatic. Normocephalic. EYES: Pupils equal and round. No scleral icterus. No injection or drainage. ENT: Mucous membranes pink and moist. CARDIOVASCULAR: Regular rate and rhythm. No murmurs RESPIRATORY: No accessory muscle use. Clear to auscultation. Breath sounds equal bilaterally. GASTROINTESTINAL: Abdomen soft, non-tender, nondistended. : L groin with VAC in place w serosang d/c LLQ colostomy in placew with small ammount of stool L inguinal area with complete resolution of erythem a, edema SP cath with clear yellow urine NO odor scrotul w/o edema, erythema MUSCULOSKELETAL: Extremities without clubbing, cyanosis, or edema. dressing in place b/l feet L foot : marked Scharko deformity Incision over L lat malleleous clean, dry NEUROLOGICAL: Awake and alert. 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
[2018-09-23] MEDS: Insulin NovoLOG Aspart Correctional Sugar Inj SQ SCH ×6 (00:32→22:35)
[2018-09-23] MEDS: Senna/Docusate Sodium 8.6/50 MG Tablet PO SCH ×3 (00:32→22:36)
[2018-09-23] MEDS: Sodium Chloride 0.9% 2 ML Flush BID IV.FLUSH SCH ×3 (00:32→22:36)
[2018-09-23 07:22] LABS: Hematocrit 35.8 % (39.0-51.0); Hemoglobin 11.9 gm/dL (13.0-17.0); Mean Corpuscular HGB Conc 33.2 % (32.0-36.0); Mean Corpuscular Volume 90.2 fL (80.0-100.0); Mean Platelet Volume 7.9 fL (7.0-11.0); Platelet Count 224 th/mm3 (150-450); Red Blood Count 3.97 mil/mm3 (4.50-5.90); Red Cell Distribution Width 15.6 % (11.6-17.2); White Blood Count 9.6 th/mm3 (4.0-11.0)
[2018-09-23 07:40] LABS: Anion Gap 9 meq/L (5-15); Blood Urea Nitrogen 26 mg/dL (7-18); Calcium 8.9 mg/dL (8.5-10.1); Chloride 105 meq/L (98-107); Glomerular Filtration Rate Greater Than 89 mL/min (>89); Glucose,Random 122 mg/dL (74-106); Sodium 141 meq/L (136-145)
[2018-09-23] MEDS: Collagenase Oint 30 GM Tube TOPICAL SCH (08:52)
--- NOTE | 2018-09-23 10:54 | P.PN ---
Subjective Interval history: awake and alert, no complains looking forward to VAC change today Physical Exam Vital signs: Vital Signs 09/22/18 12:00 09/22/18 16:00 09/22/18 20:00 Temperature 97.6 F 98.7 F 98.3 F Pulse Rate 83 67 73 Respiratory Rate 20 20 19 Blood Pressure 113/68 119/61 114/66 Pulse Oximetry 99 97 97 09/23/18 00:00 09/23/18 04:00 09/23/18 08:00 Temperature 97.4 F L 97.5 F L 98.2 F Pulse Rate 65 70 67 Respiratory Rate 16 18 16 Blood Pressure 134/66 111/58 L 115/59 L Pulse Oximetry 98 97 97 Intake & Output 09/22/18 09/23/18 09/23/18 18:59 06:59 18:59 Output Total 3050 / 3050 2400 / 2400 Balance -3050 / -3050 -2400 / -2400 Weight 89.2 kg Output: Urine Amount (Catheter) 3050 / 3050 2400 / 2400 Suprapubic 3050 / 3050 2400 / 2400 Other: Mode Setting Left Groin Continuous Continuous Date of Last Bowel Movement 09/22/18 09/22/18 Narrative: GENERAL: Well-nourished male, in no acute distress CARDIOVASCULAR: Regular rate and rhythm without murmurs, gallops, or rubs. RESPIRATORY: Breath sounds equal bilaterally. No accessory muscle use. GASTROINTESTINAL: Abdomen soft, non-tender, soft Colostomy present with formed stool. : Suprapubic catheter drain in place. MUSCULOSKELETAL: No cyanosis, no edema. SKIN: Warm and dry. Left inguinal area with wound vac. L ankle with dressing intact, good peripheral pulses - Urinary Catheter Management Indwelling Urethral Catheter Cath placed during this visit: yes, but has since been removed by the nurse Reason for continuing: Chronic Urinary Retention Insertion date: 09/07/18 Insertion time: 16:00 Removal date: 09/10/18 Removal time: 16:00 Suprapubic Cath placed during this visit: yes Reason for continuing: Severe pressure ulcer/wound Insertion date: 09/03/18 Results - Labs CBC & Chem 7: 09/23/18 06:36 09/23/18 06:36 Laboratory Results - last 24 hr 09/22/18 09/22/1818 11:36 16:37 23:06 WBC RBC Hgb Hct MCV MCH MCHC RDW Plt Count MPV Sodium Potassium Chloride Carbon Dioxide Anion Gap BUN Creatinine Estimated GFR POC Glucose 132 H 126 H 145 H Random Glucose Calcium 09/23/18 09/23/18 09/23/18 05:11 06:36 06:36 WBC 9.6 RBC 3.97 L Hgb 11.9 L Hct 35.8 L MCV 90.2 MCH 30.0 MCHC 33.2 RDW 15.6 Plt Count 224 MPV 7.9 Sodium 141 Potassium 4.0 Chloride 105 Carbon Dioxide 27.0 Anion Gap 9 BUN 26 H Creatinine 0.85 Estimated GFR Greater than 89 POC Glucose 139 H Random Glucose 122 H Calcium 8.9 09/23/18 07:20 WBC RBC Hgb Hct MCV MCH MCHC RDW Plt Count MPV Sodium Potassium Chloride Carbon Dioxide Anion Gap BUN Creatinine Estimated GFR POC Glucose 127 H Random Glucose Calcium - Procedures none Assessment and Plan - Assessment (1) UTI (urinary tract infection) Code(s): N39.0 - Urinary tract infection, site not specified Status: Acute (2) Sepsis Code(s): A41.9 - Sepsis, unspecified organism Status: Resolved (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 Ongoing washout and wound VAC change per urology. 1. Left Fascicular Cutaneous Inguinal Fistula Initially admitted for septic shock, OR on 09/03/2018 for suprapubic catheter placement s/p Zosyn D/C'd on 09/14 by ID s/p E&D of fistula and wound VAC placement on 09/10/2018, s/p OR on 09/15 S/P Vac change 09/23 Pain controlled with hydrocodone as needed. Appreciate Urology assistance with management. Repeat irrigation and washout , 09/21/18. Urology planning to repeat washout and wound VAC dressing change today Plastic surgery consulted on the patient. 2. Urinary tract infection S/P Fluconazole complete 14 days- 09/18 Neg Urine Cx 09/05 x48hrs, final Urine Cx 08/30 Rachel 3. Type 2 Diabetes- improved readings- A1C 12.7 on admission Stable, BS stable when diet followed Diabetic diet Cont. Insulin 70/30 14U BID and sliding scale insulin 4. Left lateral foot ankle ulceration s/p excision/biopsy of wound with skin plasty left lateral ankle, ostectomy left lateral malleolus on 09/13, per Podiatry Ok to follow-up outpatient per podiatry Patient to follow up with Dr. Carrizales within 1 week of discharge Weight bearing as tolerated to the left LE 5. Tinea cruris, resolved s/p txt for 14 days with Nystatin cream 6. Sacral/gluteal decub Continue wound care 7. Colostomy Continue nursing management 8. Anemia, iron deficiency Diagnosed per iron studies H&H stable Cont. Ferrous Sulfate 325mg BID Continue to monitor 9. DVT Prophylaxis: SCD's Discharge Planning: Will need SNF placement when ready. (2) Sepsis Qualifiers: Sepsis type: sepsis due to unspecified organism Qualified Code(s): A41.9 - Sepsis, unspecified organism (5) Diabetes Qualifiers: Diabetes mellitus type: type 2
[2018-09-23] MEDS: Ferrous Sulfate 325 MG Tablet PO SCH ×2 (11:35→17:10)
[2018-09-23] MEDS ORDERED: Metoprolol Tartrate 25 MG Tablet PO ONE (12:00)
[2018-09-23] MEDS ORDERED: Chlorhexidine Gluconate 2% 1 Pack (2 Cloths) TOPICAL ONE (12:00)
[2018-09-23] MEDS ORDERED: Sodium Chlor 0.9% Inj 500 ML IV.CONT ONE (12:00)
[2018-09-23] MEDS ORDERED: Lidocaine PF 1% Inj 5 ML Syringe OTHER ONE (16:57)
--- NOTE | 2018-09-23 17:50 | P.OP ---
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 Today the patient underwent a VAC change. Risk and benefits were discussed preoperatively the patient was willing to proceed. Patient was brought the operating identified by myself as Sang Donahue. He was placed in dorsolithotomy position, prepped draped you sterile fashion received general LMA anesthesia. After the prior wound VAC was removed, the area was washed out with normal saline and a bulb syringe. The VAC was then placed in good position and there were no evidence of any leaks present. Xeroform gauze was placed over the small areas of blistering that were there prior to this. Dressings were applied and a new 22 [place] suprapubic catheter change was also performed during the procedure. The patient tolerated the procedure well was awoken transferred Stable condition. He will return in 48 hours to undergo another VAC change.
[2018-09-23] MEDS ORDERED: fentaNYL Citrate Inj 100 MCG/2 ML Ampul ONE (18:04)
[2018-09-24] MEDS: Insulin NovoLOG Aspart Correctional Sugar Inj SQ SCH ×5 (04:59→22:12)
[2018-09-24] MEDS: Sodium Chloride 0.9% 2 ML Flush BID IV.FLUSH SCH ×2 (08:18→22:13)
[2018-09-24] MEDS: Senna/Docusate Sodium 8.6/50 MG Tablet PO SCH ×2 (08:18→22:13)
[2018-09-24] MEDS: Collagenase Oint 30 GM Tube TOPICAL SCH (08:19)
[2018-09-24] MEDS: Ferrous Sulfate 325 MG Tablet PO SCH ×2 (11:54→17:34)
--- NOTE | 2018-09-24 13:28 | P.PN ---
Subjective Interval history: no complains colostomy bag with brown stools suprapubic cath in place- draining grossly clear urine Physical Exam Vital signs: Vital Signs 09/23/18 18:00 09/23/18 18:15 09/23/18 18:17 Temperature 97.4 F L 97.7 F Pulse Rate 62 65 Respiratory Rate 14 14 Blood Pressure 150/71 H 142/74 H Pulse Oximetry 100 98 99 09/23/18 18:31 09/23/18 20:00 09/24/18 00:00 Temperature 97.4 F L 97.9 F 97.1 F L Pulse Rate 64 71 71 Respiratory Rate 14 20 20 Blood Pressure 140/72 116/69 113/66 Pulse Oximetry 99 98 98 09/24/18 04:00 09/24/18 08:00 Temperature 98.0 F 99.9 F H Pulse Rate 74 75 Respiratory Rate 20 16 Blood Pressure 138/73 118/61 Pulse Oximetry 99 97 Intake & Output 09/23/18 09/24/18 09/24/18 18:59 06:59 18:59 Intake Total 400 / 400 Output Total 1200 / 1200 Balance 400 / 400 -1200 / -1200 Weight 86.2 kg Intake: Anesthesia Amount 400 / 400 Output: Urine 1200 / 1200 Other: Mode Setting Left Groin Continuous Continuous Continuous Left Scrotum Intermittent Date of Last Bowel Movement 09/23/18 09/23/18 09/24/18 Narrative: GENERAL: Well-nourished male, in no acute distress, blunt affect CARDIOVASCULAR: Regular rate and rhythm RESPIRATORY: Breath sounds equal bilaterally. No accessory muscle use. GASTROINTESTINAL: Abdomen soft, non-tender, soft Colostomy present with formed stool. Left groin- VAC in place : Suprapubic catheter drain in place. SKIN: Warm and dry. L ankle with dressing intact, good peripheral pulses - Urinary Catheter Management Indwelling Urethral Catheter Cath placed during this visit: yes, but has since been removed by the nurse Reason for continuing: Chronic Urinary Retention Insertion date: 09/07/18 Insertion time: 16:00 Removal date: 09/10/18 Removal time: 16:00 Suprapubic Cath placed during this visit: yes Reason for continuing: Severe pressure ulcer/wound Insertion date: 09/23/18 Insertion time: 17:30 Results - Labs CBC & Chem 7: 09/23/18 06:36 09/23/18 06:36 Laboratory Results - last 24 hr 09/23/18 09/24/18 09/24/18 22:11 04:39 07:41 POC Glucose 240 H 110 136 H 09/24/18 10:51 POC Glucose 213 H - Procedures none Assessment and Plan - Assessment (1) UTI (urinary tract infection) Code(s): N39.0 - Urinary tract infection, site not specified Status: Acute (2) Sepsis Code(s): A41.9 - Sepsis, unspecified organism Status: Resolved (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 Ongoing washout and wound VAC change per urology. 1. Left Fascicular Cutaneous Inguinal Fistula Initially admitted for septic shock, OR on 09/03/2018 for suprapubic catheter placement s/p Zosyn D/C'd on 09/14 by ID s/p E&D of fistula and wound VAC placement on 09/10/2018, s/p OR on 09/15 for Vac change Pain controlled with hydrocodone as needed. Appreciate Urology assistance with management. Repeat irrigation and washout , 09/21/18. Urology planning to repeat washout and wound VAC dressing 09/23 Plastic surgery consulted on the patient. 2. Urinary tract infection S/P Fluconazole complete 14 days- 09/18 Neg Urine Cx 09/05 x48hrs, final Urine Cx 08/30 Rachel 3. Type 2 Diabetes- improved readings- A1C 12.7 on admission Stable, BS stable when diet followed Diabetic diet Cont. Insulin 70/30 14U BID and sliding scale insulin 4. Left lateral foot ankle ulceration s/p excision/biopsy of wound with skin plasty left lateral ankle, ostectomy left lateral malleolus on 09/13, per Podiatry Ok to follow-up outpatient per podiatry Patient to follow up with Dr. Carrizales within 1 week of discharge Weight bearing as tolerated to the left LE 5. Tinea cruris, resolved s/p txt for 14 days with Nystatin cream 6. Sacral/gluteal decub Continue wound care 7. Colostomy Continue nursing management 8. Anemia, iron deficiency Diagnosed per iron studies H&H stable Cont. Ferrous Sulfate 325mg BID Continue to monitor 9. DVT Prophylaxis: SCD's Discharge Planning: Repeat washout and wound VAC dressing changetoday 09/23 per urology. Will need SNF placement when ready. (2) Sepsis Qualifiers: Sepsis type: sepsis due to unspecified organism Qualified Code(s): A41.9 - Sepsis, unspecified organism (5) Diabetes Qualifiers: Diabetes mellitus type: type 2 (2) Sepsis Qualifiers: Sepsis type: sepsis due to unspecified organism Qualified Code(s): A41.9 - Sepsis, unspecified organism (5) Diabetes Qualifiers: Diabetes mellitus type: type 2
[2018-09-25] MEDS: Insulin NovoLOG Aspart Correctional Sugar Inj SQ SCH ×5 (04:56→21:59)
[2018-09-25] MEDS: Senna/Docusate Sodium 8.6/50 MG Tablet PO SCH ×2 (09:45→21:53)
[2018-09-25] MEDS: Collagenase Oint 30 GM Tube TOPICAL SCH (09:46)
[2018-09-25] MEDS: Sodium Chloride 0.9% 2 ML Flush BID IV.FLUSH SCH ×2 (09:46→21:54)
--- NOTE | 2018-09-25 09:52 | P.PN ---
Subjective Interval history: no complains good po afebrile d/w him that he is off antibitoics- and we need to start working on more physical therapy definitely refused to go to rehab- sounds like he had a bad experience in the apst Physical Exam Vital signs: Vital Signs 09/24/18 12:00 09/24/18 16:00 09/24/18 20:00 Temperature 98.2 F 98.0 F 98.3 F Pulse Rate 76 73 73 Respiratory Rate 16 16 16 Blood Pressure 126/65 130/63 120/63 Pulse Oximetry 98 99 98 09/25/18 00:00 09/25/18 04:00 09/25/18 08:00 Temperature 97.8 F 98 F 98.3 F Pulse Rate 65 69 70 Respiratory Rate 18 Blood Pressure 125/64 126/61 108/61 Pulse Oximetry 98 97 97 Intake & Output 09/24/18 09/25/18 09/25/18 18:59 06:59 18:59 Intake Total 800 / 800 Output Total 1000 / 1000 2400 / 2400 Balance -200 / -200 -2400 / -2400 Weight 84.6 kg Intake: Oral 800 / 800 Output: Urine 2400 / 2400 Urine Amount (Catheter) 1000 / 1000 Suprapubic 1000 / 1000 Other: Mode Setting Left Groin Continuous Continuous Date of Last Bowel Movement 09/24/18 09/24/18 Narrative: GENERAL: in no acute distress CARDIOVASCULAR: Regular rate and rhythm RESPIRATORY: Breath sounds equal bilaterally. No accessory muscle use. GASTROINTESTINAL: Abdomen soft, non-tender, soft Colostomy present with stool. : Suprapubic catheter drain in place. MUSCULOSKELETAL: No cyanosis, no edema. SKIN: Warm and dry. Left inguinal area with wound vac. L ankle with dressing intact, good peripheral pulses - Urinary Catheter Management Indwelling Urethral Catheter Cath placed during this visit: yes, but has since been removed by the nurse Reason for continuing: Chronic Urinary Retention Insertion date: 09/07/18 Insertion time: 16:00 Removal date: 09/10/18 Removal time: 16:00 Suprapubic Cath placed during this visit: yes Reason for continuing: Severe pressure ulcer/wound Insertion date: 09/03/18 Insertion time: 17:30 Results - Labs CBC & Chem 7: 09/23/18 06:36 09/23/18 06:36 Laboratory Results - last 24 hr 09/24/18 09/24/18 09/24/18 10:51 16:13 21:59 POC Glucose 213 H 108 133 H 09/25/18 09/25/18 03:35 07:07 POC Glucose 141 H 176 H - Procedures none Assessment and Plan - Assessment (1) UTI (urinary tract infection) Code(s): N39.0 - Urinary tract infection, site not specified Status: Acute (2) Sepsis Code(s): A41.9 - Sepsis, unspecified organism Status: Resolved (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 Ongoing washout and wound VAC change per urology. 1. Left Fascicular Cutaneous Inguinal Fistula Initially admitted for septic shock, OR on 09/03/2018 for suprapubic catheter placement s/p Zosyn D/C'd on 09/14 by ID s/p E&D of fistula and wound VAC placement on 09/10/2018, s/p OR on 09/15 S/P Vac change 09/23 Pain controlled with hydrocodone as needed. Appreciate Urology assistance with management. Repeat irrigation and washout , 09/21/18. Plastic surgery consulted on the patient. 2. Urinary tract infection S/P Fluconazole complete 14 days- 09/18 Neg Urine Cx 09/05 x48hrs, final Urine Cx 08/30 Rachel 3. Type 2 Diabetes- improved readings- A1C 12.7 on admission Stable, BS stable when diet followed Diabetic diet Cont. Insulin 70/30 14U BID and sliding scale insulin, good readings restart his metformin 500 mg bid 4. Left lateral foot ankle ulceration s/p excision/biopsy of wound with skin plasty left lateral ankle, ostectomy left lateral malleolus on 09/13, per Podiatry Ok to follow-up outpatient per podiatry Patient to follow up with Dr. Carrizales within 1 week of discharge Weight bearing as tolerated to the left LE 5. Tinea cruris, resolved s/p txt for 14 days with Nystatin cream 6. Sacral/gluteal decub Continue wound care 7. Colostomy Continue nursing management 8. Anemia, iron deficiency Diagnosed per iron studies H&H stable Cont. Ferrous Sulfate 325mg BID Continue to monitor 9. DVT Prophylaxis: SCD's Discharge Planning: ideal SNF candidate- but refused will ask CM with DC planning- home health care arrangement - DC if cleared with Urology (2) Sepsis Qualifiers: Sepsis type: sepsis due to unspecified organism Qualified Code(s): A41.9 - Sepsis, unspecified organism (5) Diabetes Qualifiers: Diabetes mellitus type: type 2
[2018-09-25] MEDS ORDERED: Chlorhexidine Gluconate 2% 1 Pack (2 Cloths) TOPICAL ONE (11:59)
[2018-09-25] MEDS ORDERED: Metoprolol Tartrate 25 MG Tablet PO ONE (11:59)
[2018-09-25] MEDS ORDERED: Sodium Chlor 0.9% Inj 500 ML IV.SIG SCH (12:00)
[2018-09-25] MEDS: Ferrous Sulfate 325 MG Tablet PO SCH ×2 (12:01→17:28)
[2018-09-25] MEDS ORDERED: fentaNYL Citrate Inj 250 MCG/5 ML Ampul ONE (15:02)
[2018-09-25] MEDS ORDERED: Succinylcholine Inj 100 MG/5 ML Syringe IV.PUSH ONE (15:30)
--- NOTE | 2018-09-25 16:07 | P.OP ---
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 Decision made to bring the patient to the operating room to undergo VAC change with left groin abscess washout. Patient was brought to the OR and placed in the dorsolithotomy position, prepped draped you sterile fashion, and general endotracheal tube anesthesia was administered. The wound was irrigated out with normal saline and then a small area near the right testicle was curetted and debrided. The wound was again irrigated and then the VAC was replaced and dressings were applied. Suction was checked for and there is no evidence of any leak. He was awoken and extubated transferred recovery in stable condition. He will follow-up again on Friday to go back change at that time.
[2018-09-26] MEDS: Insulin NovoLOG Aspart Correctional Sugar Inj SQ SCH ×5 (04:01→21:30)
[2018-09-26] MEDS: Senna/Docusate Sodium 8.6/50 MG Tablet PO SCH ×2 (10:21→21:31)
[2018-09-26] MEDS: Sodium Chloride 0.9% 2 ML Flush BID IV.FLUSH SCH ×2 (10:22→21:31)
[2018-09-26] MEDS: Collagenase Oint 30 GM Tube TOPICAL SCH (10:24)
--- NOTE | 2018-09-26 11:14 | P.PN ---
Subjective Interval history: awake and alet, no complains Physical Exam Vital signs: Vital Signs 09/25/18 12:00 09/25/18 16:15 09/25/18 16:30 Temperature 98.4 F 97.6 F Pulse Rate 80 74 76 Respiratory Rate 16 16 16 Blood Pressure 119/67 140/67 118/68 Pulse Oximetry 98 98 98 09/25/18 16:45 09/25/18 17:00 09/25/18 20:00 Temperature 99.2 F 98.1 F Pulse Rate 78 75 86 Respiratory Rate 18 Blood Pressure 112/69 121/58 L 114/55 L Pulse Oximetry 97 97 98 09/26/18 00:00 09/26/18 04:00 09/26/18 08:00 Temperature 98.2 F 98 F 97.3 F L Pulse Rate 81 72 75 Respiratory Rate 18 Blood Pressure 110/57 L 119/62 109/58 L Pulse Oximetry 97 97 96 Intake & Output 09/25/18 09/26/18 09/26/18 18:59 06:59 18:59 Intake Total 1490 / 1490 Output Total 2750 / 2750 1200 / 1200 Balance -1260 / -1260 -1200 / -1200 Weight 84.3 kg Intake: Oral 990 / 990 Anesthesia Amount 500 / 500 Output: Urine 850 / 850 1200 / 1200 Urine Amount (Catheter) 1800 / 1800 Suprapubic 1800 / 1800 Stool Amount (Stoma) 100 / 100 Left Upper Abdomen 100 / 100 Other: Mode Setting Left Groin Continuous Continuous Date of Last Bowel Movement 09/25/18 09/25/18 Narrative: GENERAL: in no acute distress CARDIOVASCULAR: Regular rate and rhythm RESPIRATORY: Breath sounds equal bilaterally. No accessory muscle use. GASTROINTESTINAL: Abdomen soft, non-tender, soft Colostomy present with stool. : Suprapubic catheter drain in place. MUSCULOSKELETAL: No cyanosis, no edema. SKIN: Warm and dry. Left inguinal area with wound vac. L ankle with dressing intact, good peripheral pulses right calf-larger than left- no tenderness - Urinary Catheter Management Indwelling Urethral Catheter Cath placed during this visit: yes, but has since been removed by the nurse Reason for continuing: Chronic Urinary Retention Insertion date: 09/07/18 Insertion time: 16:00 Removal date: 09/10/18 Removal time: 16:00 Suprapubic Cath placed during this visit: yes Reason for continuing: Severe pressure ulcer/wound Insertion date: 09/03/18 Insertion time: 17:30 Results - Labs CBC & Chem 7: 09/23/18 06:36 09/23/18 06:36 Laboratory Results - last 24 hr 09/25/18 09/25/18 09/25/18 11:32 16:56 21:54 POC Glucose 236 H 141 H 209 H 09/26/18 09/26/18 04:01 08:41 POC Glucose 146 H 155 H - Procedures 09/25 Left groin washout with VAC change Assessment and Plan - Assessment (1) UTI (urinary tract infection) Code(s): N39.0 - Urinary tract infection, site not specified Status: Acute (2) Sepsis Code(s): A41.9 - Sepsis, unspecified organism Status: Resolved (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 Ongoing washout and wound VAC change per urology. 1. Left Fascicular Cutaneous Inguinal Fistula Initially admitted for septic shock, OR on 09/03/2018 for suprapubic catheter placement s/p Zosyn D/C'd on 09/14 by ID s/p E&D of fistula and wound VAC placement on 09/10/2018, s/p OR on 09/15 S/P Vac change 09/23 Pain controlled with hydrocodone as needed. Appreciate Urology assistance with management. Repeat irrigation and washout , 09/21/18. 09/25 2. Urinary tract infection S/P Fluconazole complete 14 days- 09/18 Neg Urine Cx 09/05 x48hrs, final Urine Cx 08/30 Rachel 3. Type 2 Diabetes- improved readings- A1C 12.7 on admission Stable, BS stable when diet followed Diabetic diet Cont. Insulin 70/30 14U BID and sliding scale insulin, - occasinoal low 200s restarted metformin 500 mg bid 09/25 monitor and adjust regimen 4. Left lateral foot ankle ulceration s/p excision/biopsy of wound with skin plasty left lateral ankle, ostectomy left lateral malleolus on 09/13, per Podiatry Ok to follow-up outpatient per podiatry Patient to follow up with Dr. Carrizales within 1 week of discharge Weight bearing as tolerated to the left LE 5. Tinea cruris, resolved s/p txt for 14 days with Nystatin cream 6. Sacral/gluteal decub Continue wound care 7. Colostomy Continue nursing management 8. Anemia, iron deficiency Diagnosed per iron studies H&H stable Cont. Ferrous Sulfate 325mg BID Continue to monitor 9. Right LE swelling- - check doppler of legs r/o DVT DVT Prophylaxis: SCD's Discharge Planning: ideal SNF candidate- but refused will ask CM with DC planning- home health care arrangement - DC if cleared with Urology (2) Sepsis Qualifiers: Sepsis type: sepsis due to unspecified organism Qualified Code(s): A41.9 - Sepsis, unspecified organism (5) Diabetes Qualifiers: Diabetes mellitus type: type 2
[2018-09-26] MEDS: Ferrous Sulfate 325 MG Tablet PO SCH ×2 (13:51→19:41)
--- NOTE | 2018-09-26 15:41 | US ---
EXAM DATE: 09/26/2018 3:28 PM EDT AGE/SEX: 68 years / Male INDICATIONS: Right lower extremity swelling. CLINICAL DATA: This is the patient's initial encounter. Patient reports that signs and symptoms have been present for 1 day and indicates a pain score of 0/10. MEDICAL/SURGICAL HISTORY: Diabetes. AFIB. Colon resection. COMPARISON: No prior exams available for comparison. TECHNIQUE: Venous ultrasound of both lower extremities was performed from the inguinal ligament to t he proximal calf. Real-time, color Doppler and spectral tracing, compression and augmentation techni ques were used. FINDINGS: Normal compression of the deep venous system from the inguinal region to the proximal calf . No echogenic clot is seen. Normal response of the venous system to augmentation and respiration. CONCLUSION: No evidence of right lower extremity DVT. Electronically signed by: Avtar De Anda MD 09/26/2018 3:40 PM EDT
--- NOTE | 2018-09-26 16:31 | P.PNPOD ---
Subjective Interval history: Patient seen bedside. No complaints at this time. States he is feeling down since he has been in the hospital for so long. Physical Exam Vital signs: Vital Signs 09/25/18 16:30 09/25/18 16:45 09/25/18 17:00 Temperature 99.2 F Pulse Rate 76 78 75 Respiratory Rate 16 16 18 Blood Pressure 118/68 112/69 121/58 L Pulse Oximetry 98 97 97 09/25/18 20:00 09/26/18 00:00 09/26/18 04:00 Temperature 98.1 F 98.2 F 98 F Pulse Rate 86 81 72 Respiratory Rate 18 16 16 Blood Pressure 114/55 L 110/57 L 119/62 Pulse Oximetry 98 97 97 09/26/18 08:00 09/26/18 12:00 Temperature 97.3 F L 97.4 F L Pulse Rate 75 78 Respiratory Rate 18 14 Blood Pressure 109/58 L 135/62 Pulse Oximetry 96 99 Intake & Output 09/25/18 09/26/18 09/26/18 18:59 06:59 18:59 Intake Total 1490 / 1490 Output Total 2750 / 2750 1200 / 1200 Balance -1260 / -1260 -1200 / -1200 Weight 84.3 kg Intake: Oral 990 / 990 Anesthesia Amount 500 / 500 Output: Urine 850 / 850 1200 / 1200 Urine Amount (Catheter) 1800 / 1800 Suprapubic 1800 / 1800 Stool Amount (Stoma) 100 / 100 Left Upper Abdomen 100 / 100 Other: Mode Setting Left Groin Continuous Continuous Continuous Date of Last Bowel Movement 09/25/18 09/25/18 09/26/18 Narrative: Sutures intact with skin well coapted to left lateral ankle. No surrounding erythema or edema noted. Lateral ankle offloaded appropriately. Medications and Allergies Active Medications: Active Medications Acetaminophen (Tylenol) 650 mg PO Q4H PRN PRN Reason: Temp > 100.4 Last Admin: 08/29/18 04:19 Dose: 650 mg Hydrocodone Bitart/Acetaminophen ([place] 5/325) 1 tab PO Q6H PRN PRN Reason: Acute Pain Bisacodyl (Dulcolax Supp) 10 mg RECTAL DAILY PRN PRN Reason: SEVERE CONSITIPATION Collagenase (Santyl Oint) 1 applicatio TOPICAL DAILY SHERYAS Last Admin: 09/26/18 10:24 Dose: 1 applicatio Dextrose (D50w Vial) 50 ml IV.PUSH UNSCH PRN PRN Reason: PER HYPOGLYCEMIA PROTOCOL Ferrous Sulfate (Ferosul) 325 mg PO BID@1200,1700 [facility] Last Admin: 09/26/18 13:51 Dose: 325 mg Glucagon (Glucagon Inj) 1 mg OTHER PRN PRN PRN Reason: for Hypoglycemia Protocol Insulin Aspart (Novolog Insulin Correctional Sugar Inj) 0 unit SQ ACHS AND 3AM SHREYAS; Protocol Last Admin: 09/26/18 13:56 Dose: 5 unit Insulin Human Isoph/Insulin Regular (Novolin 70/30 Inj) 14 units SQ BID@0800, 1700 [facility] Last Admin: 09/26/18 10:22 Dose: 14 units Lactulose (Lactulose Liq) 30 ml PO DAILY PRN PRN Reason: SEVERE CONSITIPATION Metformin HCl (Glucophage) 500 mg PO BIDPC [facility] Last Admin: 09/26/18 10:21 Dose: 500 mg Ondansetron HCl (Zofran Inj) 4 mg IV.PUSH Q6H PRN PRN Reason: NAUSEA OR VOMITING Senna/Docusate Sodium (Diane-Colace) 1 tab PO BID [facility] Last Admin: 09/26/18 10:21 Dose: 1 tab Sennosides (Senokot) 17.2 mg PO Q12H PRN PRN Reason: Moderate Constipation Sodium Chloride (Ns Flush) 2 ml IV.FLUSH BID [facility] Last Admin: 09/26/18 10:22 Dose: 2 ml Sodium Chloride (Ns Flush) 2 ml IV.FLUSH PRN PRN PRN Reason: FLUSH AFTER USING IV ACCESS Terbutaline Sulfate (Brethine Inj) 1 mg SQ UNSCH PRN PRN Reason: For Extravasation Allergies Allergy/AdvReac Type Severity Reaction Status Date / Time Influenza Virus Vaccines Allergy Severe Anaphylaxis Verified 08/28/18 12:12 *MDRO Multi-Drug Resistant AdvReac Unknown Flushing Uncoded 08/28/18 12:12 Organism Home Medications Medication Instructions Recorded Confirmed Type No Known Home Medications 08/28/18 08/28/18 History Results - Labs CBC & Chem 7: 09/23/18 06:36 09/23/18 06:36 Laboratory Results - last 24 hr 09/25/18 09/25/18 09/26/18 16:56 21:54 04:01 POC Glucose 141 H 209 H 146 H 09/26/18 09/26/18 08:41 13:50 POC Glucose 155 H 162 H - Imaging Impressions Venous Doppler Study 09/26/18 00:00 CONCLUSION: No evidence of right lower extremity DVT. 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 Superficial abrasions noted to incision line Applied Adaptic 4 x 4's Alfredo and Tomas with offloading foam Dressing changes to be performed 3 times a week with Xeroform, 4 x 4's, Alfredo, offloading foam, and Tomas Will follow patient while in house, will reevaluate in 1 week Ok to DC per podiatry Patient to follow up with Dr. Carrizales within 1 week of discharge Weight bearing as tolerated to the left LE
[2018-09-27] MEDS: Acetaminophen 325 MG Tablet PO PRN (01:45)
[2018-09-27] MEDS: Insulin NovoLOG Aspart Correctional Sugar Inj SQ SCH ×5 (05:51→20:32)
[2018-09-27] MEDS: Sodium Chloride 0.9% 2 ML Flush BID IV.FLUSH SCH ×2 (09:18→20:32)
[2018-09-27] MEDS: Senna/Docusate Sodium 8.6/50 MG Tablet PO SCH ×2 (09:18→20:32)
[2018-09-27] MEDS: Collagenase Oint 30 GM Tube TOPICAL SCH (09:18)
[2018-09-27] MEDS: Ferrous Sulfate 325 MG Tablet PO SCH ×2 (12:05→17:09)
--- NOTE | 2018-09-27 13:35 | P.PN ---
Subjective Interval history: patient up on chair no complains good po weight bearing as tolerated Physical Exam Vital signs: Vital Signs 09/26/18 16:00 09/26/18 20:00 09/27/18 00:00 Temperature 98.9 F 99 F 101 F H Pulse Rate 80 90 90 Respiratory Rate 16 18 18 Blood Pressure 125/64 143/67 H 125/65 Pulse Oximetry 100 95 97 09/27/18 04:00 09/27/18 08:00 09/27/18 12:00 Temperature 98.2 F 97.2 F L 98.2 F Pulse Rate 77 77 83 Respiratory Rate 18 16 14 Blood Pressure 123/61 118/71 98/50 L Pulse Oximetry 99 99 100 Intake & Output 09/26/18 09/27/18 09/27/18 19:59 06:59 18:59 Output Total Balance Output: Urine Amount (Catheter) Suprapubic Other: Mode Setting Left Groin Date of Last Bowel Movement 09/27/18 # Bowel Movements Narrative: GENERAL: in no acute distress anciteric CARDIOVASCULAR: Regular rate and rhythm RESPIRATORY: Breath sounds equal bilaterally. No accessory muscle use. GASTROINTESTINAL: Abdomen soft, non-tender, soft Colostomy present with stool. : Suprapubic catheter drain in place. MUSCULOSKELETAL: No cyanosis, no edema. SKIN: Warm and dry. Left inguinal area with wound vac. L ankle with dressing intact, good peripheral pulses right calf-larger than left- no tenderness - Urinary Catheter Management Indwelling Urethral Catheter Cath placed during this visit: yes, but has since been removed by the nurse Reason for continuing: Chronic Urinary Retention Insertion date: 09/07/18 Insertion time: 16:00 Removal date: 09/10/18 Removal time: 16:00 Suprapubic Cath placed during this visit: yes Reason for continuing: Severe pressure ulcer/wound Insertion date: 09/03/18 Insertion time: 17:30 Results - Labs CBC & Chem 7: 09/23/18 06:36 09/23/18 06:36 Laboratory Results - last 24 hr 09/26/18 09/26/18 09/27/18 17:17 20:32 03:21 POC Glucose 113 H 199 H 163 H 09/27/18 09/27/18 07:32 11:59 POC Glucose 145 H 193 H - Imaging Impressions Venous Doppler Study 09/26/18 00:00 CONCLUSION: No evidence of right lower extremity DVT. 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 Ongoing washout and wound VAC change per urology. 1. Left Fascicular Cutaneous Inguinal Fistula Initially admitted for septic shock, OR on 09/03/2018 for suprapubic catheter placement s/p Zosyn D/C'd on 09/14 by ID s/p E&D of fistula and wound VAC placement on 09/10/2018, s/p OR on 09/15 S/P Vac change 09/23 Pain controlled with hydrocodone as needed. Appreciate Urology assistance with management. Repeat irrigation and washout , 09/21/18. 09/25 plan for VAC change tomorrow 2. Urinary tract infection S/P Fluconazole complete 14 days- 09/18 Neg Urine Cx 09/05 x48hrs, final Urine Cx 08/30 Rachel 3. Type 2 Diabetes- improved readings- A1C 12.7 on admission Stable, BS stable when diet followed Diabetic diet Cont. Insulin 70/30 14U BID and sliding scale insulin, - overall improved restarted metformin 500 mg bid 09/25 monitor and adjust regimen 4. Left lateral foot ankle ulceration s/p excision/biopsy of wound with skin plasty left lateral ankle, ostectomy left lateral malleolus on 09/13, per Podiatry Ok to follow-up outpatient per podiatry Patient to follow up with Dr. Carrizales within 1 week of discharge Weight bearing as tolerated to the left LE 5. Tinea cruris, resolved s/p txt for 14 days with Nystatin cream 6. Sacral/gluteal decub Continue wound care 7. Colostomy= + stools Continue nursing management 8. Anemia, iron deficiency Diagnosed per iron studies H&H stable Cont. Ferrous Sulfate 325mg BID Continue to monitor 9. Right LE swelling- - check doppler of legs r/o DVT- negative for DVT DVT Prophylaxis: SCD's Discharge Planning: ideal SNF candidate- but refused will ask CM with DC planning- home health care arrangement - DC if cleared with Urology (2) Sepsis Qualifiers: Sepsis type: sepsis due to unspecified organism Qualified Code(s): A41.9 - Sepsis, unspecified organism (5) Diabetes Qualifiers: Diabetes mellitus type: type 2
[2018-09-28] MEDS: Insulin NovoLOG Aspart Correctional Sugar Inj SQ SCH ×5 (02:38→21:41)
--- NOTE | 2018-09-28 08:56 | P.PN ---
Subjective Interval history: no complains of pain no nausea or vomiting informed him that he will go for VAC change today at noon patient up and ambulating in his room independently- occasinally uses a walker Physical Exam Vital signs: Vital Signs 09/27/18 12:00 09/27/18 16:00 09/27/18 19:42 Temperature 98.2 F 98.2 F 99.3 F Pulse Rate 83 80 80 Respiratory Rate 14 16 14 Blood Pressure 98/50 L 147/70 H 114/58 L Pulse Oximetry 100 99 98 09/27/18 20:00 09/28/18 00:00 09/28/18 04:00 Temperature 98.9 F 97.7 F Pulse Rate 93 H 77 75 Respiratory Rate 16 20 Blood Pressure 102/59 L 111/65 Pulse Oximetry 97 98 Intake & Output 09/27/18 09/28/18 09/28/18 18:59 06:59 18:59 Output Total 1550 / 1550 Balance -1550 / -1550 Output: Urine 1550 / 1550 Other: Date of Last Bowel Movement 09/27/18 09/26/18 Narrative: GENERAL: in no acute distress anciteric , oriented x 3, speech clear CARDIOVASCULAR: Regular rate and rhythm RESPIRATORY: Breath sounds equal bilaterally. No accessory muscle use. GASTROINTESTINAL: Abdomen soft, non-tender, soft Colostomy present with stool. : Suprapubic catheter - place- draining grossly clear urine SKIN: Warm and dry. Left inguinal area with wound vac. L ankle with dressing intact, good peripheral pulses, no sign sof tenderness right calf-slight larger than left- no tenderness- no DVT on imaging - Urinary Catheter Management Indwelling Urethral Catheter Cath placed during this visit: yes, but has since been removed by the nurse Reason for continuing: Chronic Urinary Retention Insertion date: 09/07/18 Insertion time: 16:00 Removal date: 09/10/18 Removal time: 16:00 Suprapubic Cath placed during this visit: yes Reason for continuing: Severe pressure ulcer/wound Insertion date: 09/03/18 Insertion time: 17:30 Results - Labs CBC & Chem 7: 09/23/18 06:36 09/23/18 06:36 Laboratory Results - last 24 hr 09/27/18 09/27/18 09/27/18 11:59 16:49 20:29 POC Glucose 193 H 110 159 H 09/28/18 09/28/18 02:38 07:34 POC Glucose 204 H 163 H - Procedures 09/25 Left groin washout with VAC change Assessment and Plan - Assessment (1) UTI (urinary tract infection) Code(s): N39.0 - Urinary tract infection, site not specified Status: Acute (2) Sepsis Code(s): A41.9 - Sepsis, unspecified organism Status: Resolved (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 Ongoing washout and wound VAC change per urology. 1. Left Fascicular Cutaneous Inguinal Fistula Initially admitted for septic shock, OR on 09/03/2018 for suprapubic catheter placement s/p Zosyn D/C'd on 09/14 by ID s/p E&D of fistula and wound VAC placement on 09/10/2018, s/p OR on 09/15 S/P Vac change 09/23 Pain controlled with hydrocodone as needed. Appreciate Urology assistance with management. Repeat irrigation and washout , 09/21/18. 09/25 plan for VAC change today 2. Urinary tract infection S/P Fluconazole completed 14 days- 09/18 Neg Urine Cx 09/05 x48hrs, final Urine Cx 08/30 Rachel 3. Type 2 Diabetes- improved readings- A1C 12.7 on admission 08/29 Stable, BS stable when diet followed Diabetic diet Cont. Insulin 70/30 14U BID and sliding scale insulin, - overall improved- some low 200s restarted metformin 500 mg bid 09/25 monitor and adjust regimen BMP in - if creatinine stable - consider increase Metformin to 1 gm bid 4. Left lateral foot ankle ulceration s/p excision/biopsy of wound with skin plasty left lateral ankle, ostectomy left lateral malleolus on 09/13, - no signs of infection Ok for DC - to follow-up outpatient per podiatry Patient to follow up with Dr. Carrizales within 1 week of discharge Weight bearing as tolerated to the left LE 5. Tinea cruris, resolved s/p txt for 14 days with Nystatin cream 6. Sacral/gluteal decub Continue wound care 7. Colostomy= + stools Continue nursing management 8. Anemia, iron deficiency Diagnosed per iron studies H&H stable Cont. Ferrous Sulfate 325mg BID Continue to monitor 9. Right LE/calf swelling- - no pain - doppler of legs r/o DVT- negative for DVT Patient up and ambulating DVT Prophylaxis: SCD's Discharge Planning: ideal SNF candidate- but refused will ask CM with DC planning- home health care arrangement - DC if cleared with Urology (2) Sepsis Qualifiers: Sepsis type: sepsis due to unspecified organism Qualified Code(s): A41.9 - Sepsis, unspecified organism (5) Diabetes Qualifiers: Diabetes mellitus type: type 2
[2018-09-28] MEDS: Collagenase Oint 30 GM Tube TOPICAL SCH (09:08)
[2018-09-28] MEDS: Senna/Docusate Sodium 8.6/50 MG Tablet PO SCH ×2 (09:09→21:43)
[2018-09-28] MEDS: Sodium Chloride 0.9% 2 ML Flush BID IV.FLUSH SCH ×2 (09:09→21:40)
[2018-09-28] MEDS: Ferrous Sulfate 325 MG Tablet PO SCH ×2 (12:21→17:46)
[2018-09-28] MEDS ORDERED: Lidocaine PF 1% Inj 5 ML Syringe OTHER ONE (12:23)
--- NOTE | 2018-09-28 13:10 | P.OP ---
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 He was brought to the operating room today to undergo washout of left groin wound and VAC change. Risk and benefits were discussed preoperatively patient is willing to proceed. Patient brought the operating room and identified by myself as Sang Donahue. He is placed in dorsal lithotomy position, prepped draped you sterile fashion, and received general LMA anesthesia. The wound was washed out with copious normal saline and a small amount of debridement was done in the scrotum near the left testicle. This was washed out and then the VAC was changed without difficulty. A good seal was noted at the end of the procedure. He was awoken and extubated transferred recovery in stable condition. He will undergo another VAC change this Friday.
[2018-09-28] MEDS ORDERED: fentaNYL Citrate Inj 100 MCG/2 ML Ampul ONE ×2 (13:24)
[2018-09-29] MEDS: Insulin NovoLOG Aspart Correctional Sugar Inj SQ SCH ×5 (03:19→21:46)
[2018-09-29 09:40] LABS: Anion Gap 10 meq/L (5-15); Blood Urea Nitrogen 26 mg/dL (7-18); Calcium 8.5 mg/dL (8.5-10.1); Chloride 104 meq/L (98-107); Glomerular Filtration Rate Greater Than 89 mL/min (>89); Glucose,Random 105 mg/dL (74-106); Potassium 4.1 meq/L (3.5-5.1); Sodium 139 meq/L (136-145)
[2018-09-29] MEDS: Sodium Chloride 0.9% 2 ML Flush BID IV.FLUSH SCH ×2 (09:41→21:46)
[2018-09-29] MEDS: Senna/Docusate Sodium 8.6/50 MG Tablet PO SCH ×2 (09:41→21:47)
[2018-09-29] MEDS: Collagenase Oint 30 GM Tube TOPICAL SCH (09:44)
--- NOTE | 2018-09-29 11:12 | P.PN ---
Subjective Interval history: Follow up on patient with urethrocutaneous fistula. Patient seen and examined. Patient denies any acute medical complaints. He says he feels okay. He denies any fever or chills. He denies any chest pain or dyspnea. He denies any N/V or abdominal pain. He reports good BM this am. Physical Exam Vital signs: Vital Signs 09/28/18 11:49 09/28/18 12:00 09/28/18 13:18 Temperature 98.7 F 98 F Pulse Rate 78 77 85 Respiratory Rate 16 18 Blood Pressure 113/58 L 131/74 Pulse Oximetry 97 09/28/18 13:30 09/28/18 13:40 09/28/18 16:00 Temperature 98 F 97.9 F Pulse Rate 85 85 72 Respiratory Rate 18 18 18 Blood Pressure 118/55 L 118/55 L 108/63 Pulse Oximetry 96 96 100 09/28/18 20:00 09/29/18 00:00 09/29/18 04:00 Temperature 98.4 F 98.1 F 97.7 F Pulse Rate 70 61 62 Respiratory Rate 18 18 18 Blood Pressure 128/63 113/55 L 132/63 Pulse Oximetry 98 98 98 09/29/18 08:00 Temperature 97.6 F Pulse Rate 71 Respiratory Rate 20 Blood Pressure 121/69 Pulse Oximetry 99 Intake & Output 09/28/18 09/29/18 09/29/18 18:59 06:59 18:59 Intake Total 500 / 500 Output Total 103 / 103 2400 / 2400 Balance 397 / 397 -2400 / -2400 Weight 84.2 kg Intake: Anesthesia Amount 500 / 500 Output: Urine 100 / 100 2400 / 2400 Estimated Blood Loss 3 / 3 Other: Mode Setting Left Groin Intermittent Continuous Narrative: GENERAL: WDWN male patient, INAD. Awake and alert. Appears comfortable. SKIN: Warm and dry. Left inguinal area with wound vac in place, appears to have good seal. HEAD: Atraumatic. Normocephalic. EYES: Pupils equal and round. No scleral icterus. No injection or drainage. ENT: No nasal bleeding or discharge. Mucous membranes pink and moist. NECK: Trachea midline. CARDIOVASCULAR: Regular rate and rhythm. RESPIRATORY: No accessory muscle use. Clear to auscultation. Breath sounds equal bilaterally. GASTROINTESTINAL: Abdomen soft, non-tender, nondistended. +colostomy in RLQ with soft brown stool in bag. GENITOURINARY: +suprapubic catheter in place. MUSCULOSKELETAL: Extremities without clubbing, cyanosis, or edema. No obvious deformities. NEUROLOGICAL: Awake and alert. No obvious cranial nerve deficits. Motor grossly within normal limits. Able to move all extremities spontaneously. Normal speech. PSYCHIATRIC: Appropriate mood and affect; Calm and cooperative. - Urinary Catheter Management Indwelling Urethral Catheter Cath placed during this visit: yes, but has since been removed by the nurse Reason for continuing: Chronic Urinary Retention Insertion date: 09/07/18 Insertion time: 16:00 Removal date: 09/10/18 Removal time: 16:00 Suprapubic Cath placed during this visit: yes Reason for continuing: Acute urinary retention Insertion date: 09/03/18 Insertion time: 17:30 Results - Labs CBC & Chem 7: 09/23/18 06:36 09/29/18 08:20 Laboratory Results - last 24 hr 09/28/18 09/28/18 09/28/18 11:44 17:18 21:41 Sodium Potassium Chloride Carbon Dioxide Anion Gap BUN Creatinine Estimated GFR POC Glucose 178 H 173 H 109 Random Glucose Calcium 09/29/18 09/29/18 09/29/18 03:19 07:32 08:20 Sodium 139 Potassium 4.1 Chloride 104 Carbon Dioxide 25.0 Anion Gap 10 BUN 26 H Creatinine 0.79 Estimated GFR Greater than 89 POC Glucose 102 132 H Random Glucose 105 Calcium 8.5 - Procedures 09/25 Left groin washout with VAC change Assessment and Plan - Assessment (1) UTI (urinary tract infection) Code(s): N39.0 - Urinary tract infection, site not specified Status: Acute (2) Sepsis Code(s): A41.9 - Sepsis, unspecified organism Status: Resolved (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 Ongoing washout and wound VAC change per urology. Left Urethral Cutaneous Inguinal Fistula Initially admitted for septic shock, OR on 09/03/2018 for suprapubic catheter placement s/p Zosyn D/C'd on 09/14 by ID s/p I&D of fistula and wound VAC placement s/p recurrent wound vac changes. Pain controlled with hydrocodone as needed. Appreciate Urology assistance with management. Repeat irrigation and washout , 09/21/18, 09/25, 09/28, plan for repeat VAC change on Friday Urinary tract infection S/P Fluconazole completed 14 days- 09/18, resolved Neg Urine Cx 09/05 x48hrs, final Urine Cx 08/30 Rachel Type 2 Diabetes A1C 12.7 on admission 08/29 Diabetic diet Cont. Insulin 70/30 14U BID and sliding scale insulin restarted metformin 500 mg bid 09/25. Increased to 1gm BID 09/29 monitor and adjust regimen Left lateral foot ankle ulceration s/p excision/biopsy of wound with skin plasty left lateral ankle, ostectomy left lateral malleolus on 09/13, no signs of infx Ok for DC -to follow-up outpatient per podiatry with Dr. Carrizales within 1 week of discharge Weight bearing as tolerated to the left LE Sacral/gluteal decub Continue wound care Anemia, iron deficiency Diagnosed per iron studies H&H stable Cont. Ferrous Sulfate 325mg BID Continue to monitor Right LE/calf swelling-no pain doppler of legs r/o DVT- negative for DVT DVT prophylaxis Code Status: Full Discussed Condition With: patient, nursing staff, Dr. Gallardo Discharge Planning: Discharge pending Urology clearance (2) Sepsis Qualifiers: Sepsis type: sepsis due to unspecified organism Qualified Code(s): A41.9 - Sepsis, unspecified organism (5) Diabetes Qualifiers: Diabetes mellitus type: type 2
[2018-09-29] MEDS: Ferrous Sulfate 325 MG Tablet PO SCH ×2 (11:48→18:17)
[2018-09-30] MEDS ORDERED: Chlorhexidine Gluconate 2% 1 Pack (2 Cloths) TOPICAL ONE (05:08)
[2018-09-30] MEDS ORDERED: Sodium Chlor 0.9% Inj 500 ML IV.SIG SCH (06:00)
--- NOTE | 2018-09-30 06:57 | P.PN ---
Subjective Interval history: Follow up on patient with urethrocutaneous fistula. Patient seen and examined. Patient s/p wound vac change earlier today. Patient denies any acute medical complaints. He denies any fever or chills. He denies any chest pain or dyspnea. He denies any N/V or abdominal pain. Physical Exam Vital signs: Vital Signs 09/29/18 08:00 09/29/18 12:00 09/29/18 16:00 Temperature 97.6 F 98.2 F 98.6 F Pulse Rate 71 75 72 Respiratory Rate 20 20 20 Blood Pressure 121/69 110/58 L 118/57 L Pulse Oximetry 99 99 96 09/29/18 16:46 09/29/18 20:00 09/30/18 00:00 Temperature 97.6 F 98.0 F Pulse Rate 69 77 75 Respiratory Rate 18 18 Blood Pressure 112/59 L 110/55 L Pulse Oximetry 98 98 09/30/18 04:00 Temperature 98.2 F Pulse Rate 74 Respiratory Rate 18 Blood Pressure 108/58 L Pulse Oximetry 97 Intake & Output 09/29/18 09/29/18 09/30/18 06:59 18:59 06:59 Output Total 2400 / 2400 2450 / 2450 1950 / 1950 Balance -2400 / -2400 -2450 / -2450 -1950 / -1950 Weight 84.2 kg 84.2 kg Output: Urine 2400 / 2400 2450 / 2450 1550 / 1550 Stool Amount (Stoma) 400 / 400 Left Upper Abdomen 400 / 400 Other: Mode Setting Left Groin Intermittent Continuous Intermittent Date of Last Bowel Movement 09/29/18 Narrative: GENERAL: WDWN male patient, INAD. Awake and alert. Appears comfortable. SKIN: Warm and dry. Left inguinal area with wound vac in place, appears to have good seal. HEAD: Atraumatic. Normocephalic. EYES: Pupils equal and round. No scleral icterus. No injection or drainage. ENT: No nasal bleeding or discharge. Mucous membranes pink and moist. NECK: Trachea midline. CARDIOVASCULAR: Regular rate and rhythm. RESPIRATORY: No accessory muscle use. Clear to auscultation. Breath sounds equal bilaterally. GASTROINTESTINAL: Abdomen soft, non-tender, nondistended. +colostomy in RLQ. GENITOURINARY: +suprapubic catheter in place. MUSCULOSKELETAL: Extremities without clubbing, cyanosis, or edema. No obvious deformities. NEUROLOGICAL: Awake and alert. No obvious cranial nerve deficits. Motor grossly within normal limits. Able to move all extremities spontaneously. Normal speech. PSYCHIATRIC: Appropriate mood and affect; Calm and cooperative. - Urinary Catheter Management Indwelling Urethral Catheter Cath placed during this visit: yes, but has since been removed by the nurse Reason for continuing: Chronic Urinary Retention Insertion date: 09/07/18 Insertion time: 16:00 Removal date: 09/10/18 Removal time: 16:00 Suprapubic Cath placed during this visit: yes Reason for continuing: Acute urinary retention Insertion date: 09/03/18 Insertion time: 17:30 Results - Labs CBC & Chem 7: 09/23/18 06:36 09/29/18 08:20 Laboratory Results - last 24 hr 09/29/18 09/29/18 09/29/18 07:32 08:20 11:42 Sodium 139 Potassium 4.1 Chloride 104 Carbon Dioxide 25.0 Anion Gap 10 BUN 26 H Creatinine 0.79 Estimated GFR Greater than 89 POC Glucose 132 H 167 H Random Glucose 105 Calcium 8.5 09/29/18 09/29/18 09/30/18 17:08 21:05 03:00 Sodium Potassium Chloride Carbon Dioxide Anion Gap BUN Creatinine Estimated GFR POC Glucose 101 80 155 H Random Glucose Calcium - Procedures 09/25 Left groin washout with VAC change Assessment and Plan - Assessment (1) UTI (urinary tract infection) Code(s): N39.0 - Urinary tract infection, site not specified Status: Acute (2) Sepsis Code(s): A41.9 - Sepsis, unspecified organism Status: Resolved (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 Ongoing washout and wound VAC change per urology. Left Urethral Cutaneous Inguinal Fistula Initially admitted for septic shock, OR on 09/03/2018 for suprapubic catheter placement s/p Zosyn D/C'd on 09/14 by ID s/p I&D of fistula and wound VAC placement s/p recurrent wound vac changes. Pain controlled with hydrocodone as needed. Appreciate Urology assistance with management. Repeat irrigation and washout , 09/21/18, 09/25, 09/28, 09/30, plan for repeat VAC change on Friday Urinary tract infection S/P Fluconazole completed 14 days- 09/18, resolved Neg Urine Cx 09/05 x48hrs, final Urine Cx 08/30 Rachel Type 2 Diabetes A1C 12.7 on admission 08/29 Diabetic diet Cont. Insulin 70/30 14U BID and sliding scale insulin restarted metformin 500 mg bid 09/25. Increased to 1gm BID 09/29 monitor and adjust regimen Left lateral foot ankle ulceration s/p excision/biopsy of wound with skin plasty left lateral ankle, ostectomy left lateral malleolus on 09/13, no signs of infx Ok for DC -to follow-up outpatient per podiatry with Dr. Carrizales within 1 week of discharge Weight bearing as tolerated to the left LE Sacral/gluteal decub Continue wound care Anemia, iron deficiency Diagnosed per iron studies H&H stable Cont. Ferrous Sulfate 325mg BID Continue to monitor Right LE/calf swelling-no pain doppler of legs r/o DVT- negative for DVT DVT prophylaxis Code Status: Full Discussed Condition With: patient, nursing staff, Dr. Gallardo Discharge Planning: Discharge pending Urology clearance (2) Sepsis Qualifiers: Sepsis type: sepsis due to unspecified organism Qualified Code(s): A41.9 - Sepsis, unspecified organism (5) Diabetes Qualifiers: Diabetes mellitus type: type 2
[2018-09-30] MEDS: Senna/Docusate Sodium 8.6/50 MG Tablet PO SCH ×2 (09:32→21:19)
[2018-09-30] MEDS: Insulin NovoLOG Aspart Correctional Sugar Inj SQ SCH ×5 (09:32→21:23)
[2018-09-30] MEDS: Collagenase Oint 30 GM Tube TOPICAL SCH (09:32)
[2018-09-30] MEDS: Sodium Chloride 0.9% 2 ML Flush BID IV.FLUSH SCH ×2 (09:32→21:23)
[2018-09-30] MEDS ORDERED: Lidocaine PF 1% Inj 5 ML Syringe OTHER ONE (10:14)
--- NOTE | 2018-09-30 11:03 | P.OP ---
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 He presented today to undergo washout of the left groin and VAC change. Patient brought the operating identified by myself as Sang Donahue. He was placed in dorsolithotomy position, prepped draped in the usual sterile fashion, received general LMA anesthesia. The wound was washed out with normal saline and the VAC was replaced. At the end of procedure the seal was tested and was adequate. He tolerated the procedure well and will undergo another VAC change on Friday.
[2018-09-30] MEDS ORDERED: fentaNYL Citrate Inj 100 MCG/2 ML Ampul ONE (11:13)
[2018-09-30] MEDS: Ferrous Sulfate 325 MG Tablet PO SCH ×2 (11:47→17:47)
[2018-10-01] MEDS: Insulin NovoLOG Aspart Correctional Sugar Inj SQ SCH ×4 (03:00→20:21)
--- NOTE | 2018-10-01 07:22 | P.PN ---
Subjective Interval history: Follow up on patient with urethrocutaneous fistula. Patient seen and examined. Patient status post wound VAC change yesterday. He is scheduled for repeat wound VAC changed tomorrow. Patient denies any new medical complaints. Denies any fever chills. Denies any chest pain or shortness of breath. Denies any nausea, vomiting or abdominal pain. He denies any complaints of diarrhea. Physical Exam Vital signs: Vital Signs 09/30/18 08:00 09/30/18 11:06 09/30/18 11:15 Temperature 98.0 F 97.9 F Pulse Rate 74 61 60 Respiratory Rate 18 12 12 Blood Pressure 118/68 138/63 120/62 Pulse Oximetry 97 100 100 09/30/18 12:17 09/30/18 16:00 09/30/18 20:00 Temperature 97.9 F 98.5 F 99 F Pulse Rate 65 74 70 Respiratory Rate 12 18 16 Blood Pressure 122/67 110/54 L 103/55 L Pulse Oximetry 100 97 09/30/18 20:02 09/30/18 23:53 10/01/18 00:00 Temperature 97.5 F L Pulse Rate 78 62 68 Respiratory Rate 16 Blood Pressure 116/60 Pulse Oximetry 99 10/01/18 03:34 10/01/18 04:00 Temperature 98.1 F Pulse Rate 65 67 Respiratory Rate 16 Blood Pressure 102/59 L Pulse Oximetry 99 Intake & Output 09/30/18 10/01/18 10/01/18 18:59 06:59 18:59 Output Total 950 / 950 1800 / 1800 Balance -950 / -950 -1800 / -1800 Weight 88.1 kg Output: Urine 1800 / 1800 Urine Amount (Catheter) 800 / 800 Suprapubic 800 / 800 Wound Vac Amount 150 / 150 Left Groin 150 / 150 Other: Mode Setting Left Groin Continuous Continuous Narrative: GENERAL: WDWN male patient, INAD. Awake and alert. Appears comfortable lying in bed. SKIN: Warm and dry. Left inguinal area with wound vac in place, appears to have good seal. HEENT: Atraumatic. Normocephalic. Pupils equal and round. No scleral icterus. No injection or drainage. No nasal bleeding or discharge. Mucous membranes pink and moist. NECK: Trachea midline. CARDIOVASCULAR: Regular rate and rhythm. RESPIRATORY: No accessory muscle use. Clear to auscultation. Breath sounds equal bilaterally. GASTROINTESTINAL: Abdomen soft, non-tender, nondistended. +colostomy. GENITOURINARY: +suprapubic catheter in place with clear yellow urine in bag. MUSCULOSKELETAL: Extremities without clubbing, cyanosis, or edema. No obvious deformities. NEUROLOGICAL: Awake and alert. No obvious cranial nerve deficits. Motor grossly within normal limits. Able to move all extremities spontaneously. Normal speech. PSYCHIATRIC: Appropriate mood and affect; Calm and cooperative. - Urinary Catheter Management Indwelling Urethral Catheter Cath placed during this visit: yes, but has since been removed by the nurse Reason for continuing: Chronic Urinary Retention Insertion date: 09/07/18 Insertion time: 16:00 Removal date: 09/10/18 Removal time: 16:00 Suprapubic Cath placed during this visit: yes Reason for continuing: Acute urinary retention Insertion date: 09/03/18 Insertion time: 17:30 Results - Labs CBC & Chem 7: 09/23/18 06:36 09/29/18 08:20 Laboratory Results - last 24 hr 09/30/18 09/30/18 09/30/18 08:32 11:47 16:53 POC Glucose 123 H 120 H 257 H 09/30/18 10/01/18 21:18 03:01 POC Glucose 107 115 H - Procedures 09/25 Left groin washout with VAC change Assessment and Plan - Assessment (1) UTI (urinary tract infection) Code(s): N39.0 - Urinary tract infection, site not specified Status: Acute (2) Sepsis Code(s): A41.9 - Sepsis, unspecified organism Status: Resolved (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 Ongoing washout and wound VAC change per urology. Left Urethral Cutaneous Inguinal Fistula Initially admitted for septic shock, OR on 09/03/2018 for suprapubic catheter placement s/p Zosyn D/C'd on 09/14 by ID s/p I&D of fistula and wound VAC placement s/p recurrent wound vac changes. Pain controlled with hydrocodone as needed. Appreciate Urology assistance with management. Repeat irrigation and washout , 09/21/18, 09/25, 09/28, 09/30, plan for repeat VAC change tomorrow. Urinary tract infection S/P Fluconazole completed 14 days- 09/18, resolved Neg Urine Cx 09/05 x48hrs, final Urine Cx 08/30 Rachel Type 2 Diabetes A1C 12.7 on admission 08/29 overall BS controlled Diabetic diet Cont. Insulin 70/30 14U BID and sliding scale insulin restarted metformin 500 mg bid 09/25. Increased to 1gm BID 09/29 monitor and adjust regimen Left lateral foot ankle ulceration s/p excision/biopsy of wound with skin plasty left lateral ankle, ostectomy left lateral malleolus on 09/13, no signs of infx Ok for DC -to follow-up outpatient per podiatry with Dr. Carrizales within 1 week of discharge Weight bearing as tolerated to the left LE Sacral/gluteal decub Continue wound care Anemia, iron deficiency Diagnosed per iron studies H&H stable Cont. Ferrous Sulfate 325mg BID Continue to monitor Right LE/calf swelling-no pain doppler of legs r/o DVT- negative for DVT DVT prophylaxis Code Status: Full Discussed Condition With: patient, nursing staff, Dr. Gallardo Discharge Planning: Discharge pending Urology clearance (2) Sepsis Qualifiers: Sepsis type: sepsis due to unspecified organism Qualified Code(s): A41.9 - Sepsis, unspecified organism (5) Diabetes Qualifiers: Diabetes mellitus type: type 2
[2018-10-01] MEDS: Senna/Docusate Sodium 8.6/50 MG Tablet PO SCH ×2 (10:03→20:22)
[2018-10-01] MEDS: Sodium Chloride 0.9% 2 ML Flush BID IV.FLUSH SCH ×2 (10:09→20:22)
[2018-10-01] MEDS: Collagenase Oint 30 GM Tube TOPICAL SCH (10:09)
[2018-10-01] MEDS: Ferrous Sulfate 325 MG Tablet PO SCH (13:06)
[2018-10-02] MEDS: Insulin NovoLOG Aspart Correctional Sugar Inj SQ SCH ×6 (02:33→21:18)
--- NOTE | 2018-10-02 07:36 | P.PN ---
Subjective Interval history: Follow up on patient with urethrocutaneous fistula. Patient seen and examined. Patient is wondering when he will go to surgery today because he wants to eat. He denies any new complaints. He denies any fever or chills. He denies any chest pain or dyspnea. He reports sleeping well last night. Physical Exam Vital signs: Vital Signs 10/01/18 08:00 10/01/18 12:00 10/01/18 12:21 Temperature 99.2 F 98.2 F Pulse Rate 71 78 80 Respiratory Rate 18 20 Blood Pressure 135/74 120/64 Pulse Oximetry 99 100 10/01/18 16:00 10/01/18 17:36 10/01/18 20:00 Temperature 98.3 F 98.4 F Pulse Rate 74 76 72 Respiratory Rate 16 18 Blood Pressure 120/61 113/56 L Pulse Oximetry 99 97 10/02/18 00:00 10/02/18 04:00 Temperature 98 F 98.1 F Pulse Rate 67 66 Respiratory Rate 18 18 Blood Pressure 115/62 124/60 Pulse Oximetry 97 98 Intake & Output 10/01/18 10/02/18 10/02/18 18:59 06:59 18:59 Output Total 2800 / 2800 Balance -2800 / -2800 Weight 88.3 kg Output: Urine 2800 / 2800 Other: Mode Setting Left Groin Continuous Continuous Narrative: GENERAL: WDWN male patient, INAD. Awake and alert. Sitting up in bed watching tv. SKIN: Warm and dry. Left inguinal area with wound vac in place. HEENT: Atraumatic. Normocephalic. Pupils equal and round. No scleral icterus. No injection or drainage. No nasal bleeding or discharge. Mucous membranes pink and moist. NECK: Trachea midline. CARDIOVASCULAR: Regular rate and rhythm. RESPIRATORY: No accessory muscle use. Clear to auscultation. Breath sounds equal bilaterally. GASTROINTESTINAL: Abdomen soft, non-tender, nondistended. +colostomy. GENITOURINARY: +suprapubic catheter in place with clear yellow urine in bag. MUSCULOSKELETAL: Extremities without clubbing, cyanosis, or edema. No obvious deformities. NEUROLOGICAL: Awake and alert. No obvious cranial nerve deficits. Motor grossly within normal limits. Able to move all extremities spontaneously. Normal speech. PSYCHIATRIC: Appropriate mood and affect; Calm and cooperative. - Urinary Catheter Management Indwelling Urethral Catheter Cath placed during this visit: yes, but has since been removed by the nurse Reason for continuing: Chronic Urinary Retention Insertion date: 09/07/18 Insertion time: 16:00 Removal date: 09/10/18 Removal time: 16:00 Suprapubic Cath placed during this visit: yes Reason for continuing: Acute urinary retention Insertion date: 09/03/18 Insertion time: 17:30 Results - Labs CBC & Chem 7: 09/23/18 06:36 09/29/18 08:20 Laboratory Results - last 24 hr 10/01/18 10/01/18 10/01/18 10:06 12:48 16:49 POC Glucose 149 H 229 H 71 10/01/18 10/01/18 10/02/18 17:30 20:02 02:25 POC Glucose 82 131 H 155 H - Procedures 09/25 Left groin washout with VAC change Assessment and Plan - Assessment (1) UTI (urinary tract infection) Code(s): N39.0 - Urinary tract infection, site not specified Status: Acute (2) Sepsis Code(s): A41.9 - Sepsis, unspecified organism Status: Resolved (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 Ongoing washout and wound VAC change per urology. Left Urethral Cutaneous Inguinal Fistula Initially admitted for septic shock, OR on 09/03/2018 for suprapubic catheter placement s/p Zosyn D/C'd on 09/14 by ID s/p I&D of fistula and wound VAC placement s/p recurrent wound vac changes. Pain controlled with hydrocodone as needed. Appreciate Urology assistance with management. Repeat irrigation and washout , 09/21/18, 09/25, 09/28, 09/30, plan for repeat VAC change today. Keep NPO. Urinary tract infection S/P Fluconazole completed 14 days- 09/18, resolved Neg Urine Cx 09/05 x48hrs, final Urine Cx 08/30 Rachel Type 2 Diabetes A1C 12.7 on admission 08/29 Diabetic diet Blood sugars running a low at 71 and 82. Better this morning in mid 100s. Decrease Insulin 70/30 12U BID and sliding scale insulin restarted metformin 500 mg bid 09/25. Increased to 1gm BID 09/29 monitor and adjust regimen Left lateral foot ankle ulceration s/p excision/biopsy of wound with skin plasty left lateral ankle, ostectomy left lateral malleolus on 09/13, no signs of infx Ok for DC -to follow-up outpatient per podiatry with Dr. Christiansen within 1 week of discharge Weight bearing as tolerated to the left LE Sacral/gluteal decub Continue wound care Anemia, iron deficiency Diagnosed per iron studies H&H stable Cont. Ferrous Sulfate 325mg BID Continue to monitor Right LE/calf swelling-no pain doppler of legs r/o DVT- negative for DVT DVT prophylaxis Code Status: Full Discussed Condition With: patient, nursing staff, Dr. Gallardo Discharge Planning: Discharge pending Urology clearance (2) Sepsis Qualifiers: Sepsis type: sepsis due to unspecified organism Qualified Code(s): A41.9 - Sepsis, unspecified organism (5) Diabetes Qualifiers: Diabetes mellitus type: type 2
[2018-10-02] MEDS ORDERED: fentaNYL Citrate Inj 100 MCG/2 ML Ampul ONE (10:16)
[2018-10-02] MEDS ORDERED: Famotidine PF Inj 20 MG/2 ML Vial ONE (10:16)
[2018-10-02] MEDS: Senna/Docusate Sodium 8.6/50 MG Tablet PO SCH ×2 (10:38→21:19)
[2018-10-02] MEDS: Sodium Chloride 0.9% 2 ML Flush BID IV.FLUSH SCH ×2 (10:40→21:19)
[2018-10-02] MEDS: Collagenase Oint 30 GM Tube TOPICAL SCH (10:41)
[2018-10-02] MEDS ORDERED: Lidocaine PF 1% Inj 5 ML Syringe OTHER ONE (12:01)
[2018-10-02] MEDS ORDERED: Phenylephrine/NS 1000 MCG/10ML Syringe IV.PUSH ONE (12:01)
--- NOTE | 2018-10-02 13:29 | P.OP ---
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 Patient was brought to operating identified by myself as Sang Donahue. He was placed in a dorsal lithotomy position, prepped and draped you sterile fashion, received general LMA anesthesia. The wound was washed out with copious normal saline and then using the curette the biofilm layer was then debrided. The wound was closed with aneta up to the area of the groin and scrotal junction. The wound was then again washed out and then the small back sponge approximately 3 inches in size was placed at the top of the left hemiscrotum with VAC tracings placed on top of this. The vacuum seal was checked and was adequate. The patient tolerated the procedure well. The patient will require dressing changes with VAC change on Mondays, Wednesdays, Fridays at the bedside. He was awoken and extubated transferred recovery in stable condition.
[2018-10-02] MEDS: Ferrous Sulfate 325 MG Tablet PO SCH ×2 (20:19→20:25)
[2018-10-03] MEDS: Insulin NovoLOG Aspart Correctional Sugar Inj SQ SCH ×5 (05:48→21:17)
--- NOTE | 2018-10-03 07:26 | P.PN ---
Subjective Interval history: Follow up on patient with urethrocutaneous fistula. Patient seen and examined. He says he feels good. He denies any acute medical complaints. He denies any fever or chills. He denies any chest pain or dyspnea. He is adamantly refusing to go to rehab. He says he is agreeable only to going home with [facility]. He has a nephew that lives with him that can assist him. Physical Exam Vital signs: Vital Signs 10/02/18 08:00 10/02/18 09:00 10/02/18 12:00 Temperature 97.7 F Pulse Rate 67 61 65 Respiratory Rate 18 Blood Pressure 119/58 L Pulse Oximetry 97 10/02/18 13:20 10/02/18 13:22 10/02/18 13:30 Temperature 97.5 F L Pulse Rate 66 73 Respiratory Rate 16 15 Blood Pressure 160/67 H 147/67 H Pulse Oximetry 100 100 100 10/02/18 13:45 10/02/18 16:00 10/02/18 20:00 Temperature 97.6 F 97.3 F L 98.4 F Pulse Rate 79 72 84 Respiratory Rate 15 20 18 Blood Pressure 147/70 H 128/63 110/55 L Pulse Oximetry 100 99 99 10/02/18 23:54 10/03/18 04:00 Temperature 97.7 F 98 F Pulse Rate 78 68 Respiratory Rate 18 18 Blood Pressure 111/59 L 108/59 L Pulse Oximetry 99 98 Intake & Output 10/02/18 10/03/18 10/03/18 18:59 06:59 18:59 Intake Total 2240 / 2240 Output Total 4248 / 4248 1200 / 1200 Balance -2007 / -2007 -1200 / -1200 Weight 88.3 kg Intake: Oral 240 / 240 Anesthesia Amount 1999 / 1999 Output: Urine 2800 / 2800 1200 / 1200 Stool 150 / 150 Estimated Blood Loss 98 / 98 Urine Amount (Catheter) 800 / 800 Suprapubic 800 / 800 Stool Amount (Stoma) 400 / 400 Left Upper Abdomen 400 / 400 Other: Mode Setting Left Groin Intermittent Intermittent # Voids 3 # Incontinent Voids 3 # Urine Diapers 3 Date of Last Bowel Movement 09/29/18 # Bowel Movements 3 # Incontinent Bowel Movements 1 Narrative: GENERAL: WDWN male patient, INAD. Awake and alert. Sitting up in bed watching tv. SKIN: Warm and dry. Left inguinal area wound with aneta in place except over distal aspect which has small wound sponge in place with good vac seal. HEENT: Atraumatic. Normocephalic. Pupils equal and round. No scleral icterus. No injection or drainage. No nasal bleeding or discharge. Mucous membranes pink and moist. NECK: Trachea midline. CARDIOVASCULAR: Regular rate and rhythm. RESPIRATORY: No accessory muscle use. Clear to auscultation. Breath sounds equal bilaterally. GASTROINTESTINAL: Abdomen soft, non-tender, nondistended. +colostomy. GENITOURINARY: +suprapubic catheter in place with clear yellow urine in bag. MUSCULOSKELETAL: Extremities without clubbing, cyanosis, or edema. No obvious deformities. NEUROLOGICAL: Awake and alert. No obvious cranial nerve deficits. Motor grossly within normal limits. Able to move all extremities spontaneously. Normal speech. PSYCHIATRIC: Appropriate mood and affect; Calm and cooperative. - Urinary Catheter Management Indwelling Urethral Catheter Cath placed during this visit: yes, but has since been removed by the nurse Reason for continuing: Chronic Urinary Retention Insertion date: 09/07/18 Insertion time: 16:00 Removal date: 09/10/18 Removal time: 16:00 Suprapubic Cath placed during this visit: yes Reason for continuing: Acute urinary retention Insertion date: 09/03/18 Insertion time: 17:30 Results - Labs CBC & Chem 7: 09/23/18 06:36 09/29/18 08:20 Laboratory Results - last 24 hr 10/02/18 10/02/18 10/02/18 08:24 13:46 21:15 POC Glucose 136 H 149 H 275 H 10/03/18 04:04 POC Glucose 149 H - Procedures 09/25 Left groin washout with VAC change Assessment and Plan - Assessment (1) UTI (urinary tract infection) Code(s): N39.0 - Urinary tract infection, site not specified Status: Acute (2) Sepsis Code(s): A41.9 - Sepsis, unspecified organism Status: Resolved (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 Ongoing washout and wound VAC change per urology. Left Urethral Cutaneous Inguinal Fistula Initially admitted for septic shock, OR on 09/03/2018 for suprapubic catheter placement s/p Zosyn D/C'd on 09/14 by ID s/p I&D of fistula and wound VAC placement s/p recurrent wound vac changes. Pain controlled with hydrocodone as needed. Appreciate Urology assistance with management. Repeat irrigation and washout , 09/21/18, 09/25, 09/28, 09/30. 10/02 underwent repeat washout and debridement, wound was closed with aneta up to the area of the groin and scrotal junction and small sponge placed at top of the left hemiscrotum with vac placement. Will need bedside VAC change MWF. Urinary tract infection S/P Fluconazole completed 14 days- 09/18, resolved Neg Urine Cx 09/05 x48hrs, final Urine Cx 08/30 Rachel Type 2 Diabetes A1C 12.7 on admission 08/29 Diabetic diet Continue on Insulin 70/30 12U BID and sliding scale insulin restarted metformin 500 mg bid 09/25. Increased to 1gm BID 09/29 monitor and adjust regimen Left lateral foot ankle ulceration s/p excision/biopsy of wound with skin plasty left lateral ankle, ostectomy left lateral malleolus on 09/13, no signs of infx Ok for DC -to follow-up outpatient per podiatry with Dr. Christiansen within 1 week of discharge Weight bearing as tolerated to the left LE Sacral/gluteal decub Continue wound care Anemia, iron deficiency Diagnosed per iron studies H&H stable Cont. Ferrous Sulfate 325mg BID Continue to monitor Right LE/calf swelling-no pain doppler of legs r/o DVT- negative for DVT DVT prophylaxis bilateral SCD/ABI hose Code Status: Full Discussed Condition With: patient, nursing staff, Dr. Gallardo, CM Discharge Planning: Discharge pending Urology clearance. Patient refusing rehab. Plan for home with HHC once arranged with CM. (2) Sepsis Qualifiers: Sepsis type: sepsis due to unspecified organism Qualified Code(s): A41.9 - Sepsis, unspecified organism (5) Diabetes Qualifiers: Diabetes mellitus type: type 2
--- NOTE | 2018-10-03 08:26 | P.DCO ---
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 Status: Acute (2) Abscess of groin, left Status: Resolved (3) UTI (urinary tract infection) Status: Acute (4) Sepsis Status: Resolved (5) Diabetes Status: Chronic (6) Gait instability Status: Acute (7) Risk for falls Status: Acute (8) Weakness Status: Acute - Physical Therapy Order: Evaluate and treat, Improve ambulation, Strength and gait training - Home Health Nursing Order: Medical education, Signs/symptoms of disease process, Medication education-adverse effect, Wound care and dressing changes (bedside wound vac changes Friday, Friday and Friday) - Case Management Consult No - Certification I have seen patient Sang Donahue on 10/03/18. My clinical findings support the need for the requested home health care services because: Limited mobility due to disease progression, Deconditioned with increased weakness, Limited ability to care for self, High risk of falls, Infection with risk of complications I certify that my clinical findings support that this patient is homebound because: Post-op weakness, Unsteady gait/balance, Unsafe to leave home unassisted, Unable to use public transportation (4) Sepsis Qualifiers: Sepsis type: sepsis due to unspecified organism Qualified Code(s): A41.9 - Sepsis, unspecified organism (5) Diabetes Qualifiers: Diabetes mellitus type: type 2
[2018-10-03] MEDS: Senna/Docusate Sodium 8.6/50 MG Tablet PO SCH ×2 (08:54→21:18)
[2018-10-03] MEDS: Sodium Chloride 0.9% 2 ML Flush BID IV.FLUSH SCH ×2 (08:54→21:17)
[2018-10-03] MEDS: Collagenase Oint 30 GM Tube TOPICAL SCH (08:56)
[2018-10-03] MEDS: Petrolatum 49%/Zinc Oxide 15% Barrier Oint 120 GM Tube TOPICAL SCH (09:02)
[2018-10-03] MEDS: Ferrous Sulfate 325 MG Tablet PO SCH ×2 (12:30→17:48)
[2018-10-04] MEDS: Insulin NovoLOG Aspart Correctional Sugar Inj SQ SCH ×5 (03:30→20:23)
--- NOTE | 2018-10-04 07:41 | P.PN ---
Subjective Interval history: Follow up on patient with urethrocutaneous fistula. Patient seen and examined. Patient denies any acute medical complaints. Patient continues to decline rehab placement. He says he feels well. He denies any fever or chills. He denies any chest pain or dyspnea. He denies any diarrhea or constipation. Physical Exam Vital signs: Vital Signs 10/03/18 08:00 10/03/18 12:00 10/03/18 16:00 Temperature 97.1 F L 98.2 F 99.7 F H Pulse Rate 73 73 73 Respiratory Rate 20 20 20 Blood Pressure 134/61 117/56 L 108/58 L Pulse Oximetry 98 99 99 10/03/18 20:00 10/04/18 00:00 10/04/18 04:00 Temperature 97.5 F L 97.9 F 97.8 F Pulse Rate 84 82 73 Respiratory Rate 20 16 19 Blood Pressure 124/64 112/60 118/58 L Pulse Oximetry 99 98 98 Intake & Output 10/03/18 10/04/18 10/04/18 18:59 06:59 18:59 Intake Total 1240 / 1240 Output Total 4299 / 4299 1000 / 1000 Balance -3059 / -3059 -1000 / -1000 Weight 87.5 kg Intake: Oral 240 / 240 Anesthesia Amount 1000 / 1000 Output: Urine 1200 / 1200 Stool 150 / 150 Estimated Blood Loss 49 / 49 Urine Amount (Catheter) 2500 / 2500 1000 / 1000 Suprapubic 2500 / 2500 1000 / 1000 Stool Amount (Stoma) 400 / 400 Left Upper Abdomen 400 / 400 Other: Mode Setting Left Groin Intermittent Intermittent # Voids 3 # Incontinent Voids 3 # Urine Diapers 3 Date of Last Bowel Movement 09/29/18 10/03/18 # Bowel Movements 3 1 # Incontinent Bowel Movements 1 Narrative: GENERAL: WDWN male patient, INAD. Awake and alert. Sitting up in chair watching tv. SKIN: Warm and dry. Left inguinal area wound with aneta in place except over distal aspect which has small wound sponge in place with good vac seal. HEENT: Atraumatic. Normocephalic. Pupils equal and round. No scleral icterus. No injection or drainage. No nasal bleeding or discharge. Mucous membranes pink and moist. NECK: Trachea midline. CARDIOVASCULAR: Regular rate and rhythm. RESPIRATORY: No accessory muscle use. Clear to auscultation. Breath sounds equal bilaterally. GASTROINTESTINAL: Abdomen soft, non-tender, nondistended. +colostomy. GENITOURINARY: +suprapubic catheter in place with clear yellow urine in bag. MUSCULOSKELETAL: Extremities without clubbing, cyanosis, or edema. No obvious deformities. NEUROLOGICAL: Awake and alert. No obvious cranial nerve deficits. Motor grossly within normal limits. Able to move all extremities spontaneously. Normal speech. PSYCHIATRIC: Appropriate mood and affect; Calm and cooperative. - Urinary Catheter Management Indwelling Urethral Catheter Cath placed during this visit: yes, but has since been removed by the nurse Reason for continuing: Chronic Urinary Retention Insertion date: 09/07/18 Insertion time: 16:00 Removal date: 09/10/18 Removal time: 16:00 Suprapubic Cath placed during this visit: yes Reason for continuing: Acute urinary retention Insertion date: 09/03/18 Insertion time: 17:30 Results - Labs CBC & Chem 7: 09/23/18 06:36 09/29/18 08:20 Laboratory Results - last 24 hr 10/03/18 10/03/18 10/03/18 08:51 13:35 17:42 POC Glucose 117 H 122 H 141 H 10/03/18 10/04/18 21:16 03:08 POC Glucose 143 H 148 H - Procedures 09/25 Left groin washout with VAC change Assessment and Plan - Assessment (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 - Urethral fistula Status: Acute (2) Abscess of groin, left Code(s): L02.214 - Cutaneous abscess of groin Status: Resolved (3) UTI (urinary tract infection) Code(s): N39.0 - Urinary tract infection, site not specified Status: Acute (4) Sepsis Code(s): A41.9 - Sepsis, unspecified organism Status: Resolved (5) Diabetes Code(s): E11.9 - Type 2 diabetes mellitus without complications Status: Chronic (6) Gait instability Code(s): R26.81 - Unsteadiness on feet Status: Acute (7) Risk for falls Code(s): Z91.81 - History of falling Status: Acute (8) Weakness Code(s): R53.1 - Weakness Status: Acute - Plan 68 y/o CM with PMHx of DM admitted for IP mgmt of septic shock, now with left vesiculo-cutaneous Inguinal fistula s/p I&D with wound Vac placement on 09/10, also had washout of the wound and VAC change as well as ostectomy of left fibula with excision of wound of the left ankle with skin plasty on 09/13. Ongoing washout and wound VAC change per urology. Left Urethral Cutaneous Inguinal Fistula Initially admitted for septic shock, OR on 09/03/2018 for suprapubic catheter placement s/p Zosyn D/C'd on 09/14 by ID s/p I&D of fistula and wound VAC placement s/p recurrent wound vac changes. Pain controlled with hydrocodone as needed. Appreciate Urology assistance with management. Repeat irrigation and washout , 09/21/18, 09/25, 09/28, 09/30. 10/02 underwent repeat washout and debridement, wound was closed with aneta up to the area of the groin and scrotal junction and small sponge placed at top of the left hemiscrotum with vac placement. Will need bedside VAC change MWF. - possible discharge tomorrow if cleared by Urology and [facility] set up. Urinary tract infection S/P Fluconazole completed 14 days- 09/18, resolved Neg Urine Cx 09/05 x48hrs, final Urine Cx 08/30 Rachel Type 2 Diabetes A1C 12.7 on admission 08/29 Diabetic diet Continue on Insulin 70/30 12U BID and sliding scale insulin restarted metformin 500 mg bid 09/25. Increased to 1gm BID 09/29, continue. monitor and adjust regimen Left lateral foot ankle ulceration s/p excision/biopsy of wound with skin plasty left lateral ankle, ostectomy left lateral malleolus on 09/13, no signs of infx Ok for DC -to follow-up outpatient per podiatry with Dr. Christiansen within 1 week of discharge Weight bearing as tolerated to the left LE Sacral/gluteal decub Continue wound care Anemia, iron deficiency Diagnosed per iron studies H&H stable Cont. Ferrous Sulfate 325mg BID Continue to monitor Right LE/calf swelling-no pain doppler of legs r/o DVT- negative for DVT DVT prophylaxis bilateral SCD/ABI hose Code Status: Full Discussed Condition With: patient, nursing staff, Dr. Gallardo Discharge Planning: Discharge pending Urology clearance. Patient refusing rehab. Possible d/c tomorrow if HHC set up and cleared by Urology. (4) Sepsis Qualifiers: Sepsis type: sepsis due to unspecified organism Qualified Code(s): A41.9 - Sepsis, unspecified organism (5) Diabetes Qualifiers: Diabetes mellitus type: type 2
[2018-10-04] MEDS: Sodium Chloride 0.9% 2 ML Flush BID IV.FLUSH SCH ×2 (09:00→22:16)
[2018-10-04] MEDS: Senna/Docusate Sodium 8.6/50 MG Tablet PO SCH ×2 (09:00→20:23)
[2018-10-04] MEDS: Collagenase Oint 30 GM Tube TOPICAL SCH (09:03)
[2018-10-04] MEDS: Petrolatum 49%/Zinc Oxide 15% Barrier Oint 120 GM Tube TOPICAL SCH (09:04)
[2018-10-04] MEDS: Ferrous Sulfate 325 MG Tablet PO SCH ×2 (11:19→17:05)
[2018-10-05] MEDS: Insulin NovoLOG Aspart Correctional Sugar Inj SQ SCH ×5 (02:19→21:00)
--- NOTE | 2018-10-05 07:21 | P.PN ---
Subjective Interval history: Patient is doing well. He denies any acute medical complaints. Denies any fever or chills. Denies any chest pain or shortness of breath. Denies any nausea, vomiting or abdominal pain. Discussed with nursing staff, no acute events noted overnight. Physical Exam Vital signs: Vital Signs 10/04/18 07:57 10/04/18 08:00 10/04/18 11:40 Temperature 97.7 F 98.8 F Pulse Rate 69 80 79 Respiratory Rate 20 18 Blood Pressure 124/64 106/61 Pulse Oximetry 98 100 10/04/18 16:00 10/04/18 20:00 10/05/18 00:00 Temperature 98.3 F 98.8 F 98.5 F Pulse Rate 75 84 72 Respiratory Rate 20 17 18 Blood Pressure 115/63 112/56 L 110/55 L Pulse Oximetry 99 97 97 10/05/18 01:14 10/05/18 04:00 Temperature 97.3 F L Pulse Rate 71 Respiratory Rate 18 20 Blood Pressure 113/62 Pulse Oximetry 97 Intake & Output 10/04/18 10/05/18 10/05/18 18:59 06:59 18:59 Intake Total 840 / 840 Output Total 1300 / 1300 2650 / 2650 Balance -460 / -460 -2650 / -2650 Weight 88.5 kg Intake: Oral 840 / 840 Output: Urine 1300 / 1300 1200 / 1200 Urine Amount (Catheter) 1450 / 1450 Suprapubic 1450 / 1450 Other: Mode Setting Left Groin Continuous Continuous Date of Last Bowel Movement 10/04/18 # Bowel Movements 1 # Incontinent Bowel Movements 1 Narrative: GENERAL: WDWN male patient, INAD. Awake and alert. Appears comfortable lying in bed watching tv. SKIN: Warm and dry. Left inguinal area wound with aneta in place except over distal aspect which has small wound sponge in place with good vac seal. HEENT: Atraumatic. Normocephalic. Pupils equal and round. No scleral icterus. No injection or drainage. No nasal bleeding or discharge. Mucous membranes pink and moist. NECK: Trachea midline. CARDIOVASCULAR: Regular rate and rhythm. RESPIRATORY: No accessory muscle use. Clear to auscultation. Breath sounds equal bilaterally. GASTROINTESTINAL: Abdomen soft, non-tender, nondistended. +colostomy. GENITOURINARY: +suprapubic catheter in place with clear yellow urine in bag. MUSCULOSKELETAL: Extremities without clubbing, cyanosis, or edema. No obvious deformities. NEUROLOGICAL: Awake and alert. No obvious cranial nerve deficits. Motor grossly within normal limits. Able to move all extremities spontaneously. Normal speech. PSYCHIATRIC: Appropriate mood and affect; Calm and cooperative. - Urinary Catheter Management Indwelling Urethral Catheter Cath placed during this visit: yes, but has since been removed by the nurse Reason for continuing: Chronic Urinary Retention Insertion date: 09/07/18 Insertion time: 16:00 Removal date: 09/10/18 Removal time: 16:00 Suprapubic Cath placed during this visit: yes Reason for continuing: Acute urinary retention Insertion date: 09/03/18 Insertion time: 17:30 Results - Labs CBC & Chem 7: 09/23/18 06:36 09/29/18 08:20 Laboratory Results - last 24 hr 10/04/18 10/04/18 10/04/18 08:57 11:22 17:00 POC Glucose 139 H 218 H 72 10/04/18 10/05/18 19:59 01:51 POC Glucose 157 H 159 H - Procedures 09/25 Left groin washout with VAC change Assessment and Plan - Assessment (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 - Urethral fistula Status: Acute (2) Abscess of groin, left Code(s): L02.214 - Cutaneous abscess of groin Status: Resolved (3) UTI (urinary tract infection) Code(s): N39.0 - Urinary tract infection, site not specified Status: Acute (4) Sepsis Code(s): A41.9 - Sepsis, unspecified organism Status: Resolved (5) Diabetes Code(s): E11.9 - Type 2 diabetes mellitus without complications Status: Chronic (6) Gait instability Code(s): R26.81 - Unsteadiness on feet Status: Acute (7) Risk for falls Code(s): Z91.81 - History of falling Status: Acute (8) Weakness Code(s): R53.1 - Weakness Status: Acute - Plan 68 y/o CM with PMHx of DM admitted for IP mgmt of septic shock, now with left vesiculo-cutaneous Inguinal fistula s/p I&D with wound Vac placement on 09/10, also had washout of the wound and VAC change as well as ostectomy of left fibula with excision of wound of the left ankle with skin plasty on 09/13. Ongoing washout and wound VAC change per urology. Left Urethral Cutaneous Inguinal Fistula Initially admitted for septic shock, OR on 09/03/2018 for suprapubic catheter placement s/p Zosyn D/C'd on 09/14 by ID s/p I&D of fistula and wound VAC placement s/p recurrent wound vac changes. Pain controlled with hydrocodone as needed. Appreciate Urology assistance with management. Repeat irrigation and washout , 09/21/18, 09/25, 09/28, 09/30. 10/02 underwent repeat washout and debridement, wound was closed with aneta up to the area of the groin and scrotal junction and small sponge placed at top of the left hemiscrotum with vac placement. Will need bedside VAC change MWF. BERTRAND Cassidy who has cleared patient for discharge, Will need SP tube changed in 3 weeks. Urinary tract infection S/P Fluconazole completed 14 days- 09/18, resolved Neg Urine Cx 09/05 x48hrs, final Urine Cx 08/30 Rachel Type 2 Diabetes A1C 12.7 on admission 08/29 Diabetic diet Continue on Insulin 70/30 12U BID and sliding scale insulin restarted metformin 500 mg bid 09/25. Increased to 1gm BID 09/29, continue. monitor and adjust regimen Left lateral foot ankle ulceration s/p excision/biopsy of wound with skin plasty left lateral ankle, ostectomy left lateral malleolus on 09/13, no signs of infx Ok for DC -to follow-up outpatient per podiatry with Dr. Christiansen within 1 week of discharge Weight bearing as tolerated to the left LE Sacral/gluteal decub Continue wound care Anemia, iron deficiency Diagnosed per iron studies H&H stable Cont. Ferrous Sulfate 325mg BID Continue to monitor Right LE/calf swelling-no pain doppler of legs r/o DVT- negative for DVT DVT prophylaxis bilateral SCD/ABI hose Code Status: Full Discussed Condition With: patient, nursing staff, Dr. Guillen, Dr. Cassidy (4) Sepsis Qualifiers: Sepsis type: sepsis due to unspecified organism Qualified Code(s): A41.9 - Sepsis, unspecified organism (5) Diabetes Qualifiers: Diabetes mellitus type: type 2
--- NOTE | 2018-10-05 08:15 | P.DS ---
Date of admission: 08/28/18 15:33 Primary care physician: No Primary Care Physician Attending physician on discharge: Anuja Guillne Anticipated date of discharge: 10/05/18 Brief History from admission: This is a 68-year-old male with a history of diabetes mellitus, A. 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 Surgical history also includes tonsillectomy and right foot resection. No pertinent family history denies CAD or diabetes mellitus. Today , patient fell from his chair and was unable to get up because of generalized weakness. He did not sustain any injuries. His nephew called 911 and was brought to the hospital. He also complained of nausea and vomiting x2. No bloody emesis, fever, chills, abdominal pain, diarrhea and UTI symptoms. States he has been out of medication for over a month because of financial constraints. His glucose was 541 with a beta hydroxybutyrate of 0.53 and anion gap of 13. He complains of blurred vision, polyuria, polydipsia and polyphagia. He was started on aggressive IV hydration and received 15 units of regular insulin. Repeat fingerstick is down to 350. He also was started on Zosyn and vancomycin because of severe sepsis from infected left ankle wound. While in the emergency department, he was noted to have urine leaking from his left inguinal area which the patient was not aware of. I remember taking care of this patient when he had Tony's gangrene of the scrotum back in 2017. He underwent surgical debridement and later staged wound closure with local advancement flap. All other systems reviewed negative. Chest x-ray image interpreted by me with no acute cardiopulmonary disease. EKG tracing independently reviewed by me with sinus tachycardia. No acute ST elevation Patient update on day of discharge: Patient seen and examined. Patient states he is doing well. He does not voice any medical complaints or concerns. He denies any fever or chills. Denies any chest pain or shortness of breath. He denies nausea, vomiting abdominal pain. 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 Patient was started on IV Zosyn and vancomycin. Patient was seen in consultation by podiatry. Patient was noted to have SELENA secondary to sepsis and dehydration that was treated with aggressive IV hydration. Patient also had uncontrolled diabetes with a glucose of 541. He was found to have urine leaking from his left inguinal area with a history of Tony's gangrene of the scrotum back in 2017. He had previously undergone surgical debridement and staged wound closure with local advancement flap. He was noted to have cellulitic changes in the left inguinal area. Patient was seen in consultation by Dr. Cassidy of urology who ordered a CT for further evaluation. He also recommended general surgery evaluation. CT scan showed abnormal gas collection along the left inguinal region extending out laterally into the subcutaneous fat as well as abnormal gas collection around the base of the scrotum and perineum. 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 On 09/03/18, patient underwent cystogram, flexible cystoscopy, antegrade urethrogram, placement of suprapubic tube catheter, irrigation and packing of left inguinal wound. On 09/07, pelvis CT showed more organized appearing gas collection with fluid and surrounding skin thickening and inflammatory stranding extending to the left lower quadrant change tissues and into the left inguinal region and into the scrotum. Patient was treated with serial washout and debridements of the left inguinal abscess and wound VAC changes. On 09/13/2018, patient underwent excision/biopsy of wound with skin plasty left lateral ankle and ostectomy left lateral malleolus performed by Dr. Christiansen. Patient's blood cultures grew Corynebacterium and he was seen in consultation by infectious disease who felt this was most likely contamination. Patient was treated with Zosyn and fluconazole per ID recommendations. Patient improved clinically. Patient was cleared for discharge from all specialty services. Patient progressed with physical therapy. Patient was recommended for rehab at time of discharge which patient adamantly declined electing instead to go home with home health care PT. Patient to continue with wound VAC changes Friday and Friday as an outpatient. Patient also to have suprapubic catheter changed in 3 weeks per neurology recommendations. - Time Spent with Patient Total time spent providing and/or coordinating discharge services: Greater than 30 minutes - Quality: VTE Deep Vein Thrombosis/Pulmonary Embolism Present on Admission: No Exam Vital signs: Vital Signs 10/04/18 11:40 10/04/18 16:00 10/04/18 20:00 Temperature 98.8 F 98.3 F 98.8 F Pulse Rate 79 75 84 Respiratory Rate 18 20 17 Blood Pressure 106/61 115/63 112/56 L Pulse Oximetry 100 99 97 10/05/18 00:00 10/05/18 01:14 10/05/18 04:00 Temperature 98.5 F 97.3 F L Pulse Rate 72 71 Respiratory Rate 18 18 20 Blood Pressure 110/55 L 113/62 Pulse Oximetry 97 97 Intake & Output 10/04/18 10/05/18 10/05/18 18:59 06:59 18:59 Intake Total 840 / 840 Output Total 1300 / 1300 2650 / 2650 Balance -460 / -460 -2650 / -2650 Weight 88.5 kg Intake: Oral 840 / 840 Output: Urine 1300 / 1300 1200 / 1200 Urine Amount (Catheter) 1450 / 1450 Suprapubic 1450 / 1450 Other: Mode Setting Left Groin Continuous Continuous Date of Last Bowel Movement 10/04/18 # Bowel Movements 1 # Incontinent Bowel Movements 1 Narrative: GENERAL: WDWN male patient, INAD. Awake and alert. Appears comfortable lying in bed watching tv. SKIN: Warm and dry. Left inguinal area wound with aneta in place except over distal aspect which has small wound sponge in place with good vac seal. HEENT: Atraumatic. Normocephalic. Pupils equal and round. No scleral icterus. No injection or drainage. No nasal bleeding or discharge. Mucous membranes pink and moist. NECK: Trachea midline. CARDIOVASCULAR: Regular rate and rhythm. RESPIRATORY: No accessory muscle use. Clear to auscultation. Breath sounds equal bilaterally. GASTROINTESTINAL: Abdomen soft, non-tender, nondistended. +colostomy. GENITOURINARY: +suprapubic catheter in place with clear yellow urine in bag. MUSCULOSKELETAL: Extremities without clubbing, cyanosis, or edema. No obvious deformities. NEUROLOGICAL: Awake and alert. No obvious cranial nerve deficits. Motor grossly within normal limits. Able to move all extremities spontaneously. Normal speech. PSYCHIATRIC: Appropriate mood and affect; Calm and cooperative. Results Procedures completed during hospitalization: 09/03 - Cystogram, flexible cystoscopy, antegrade urethrogram, placement of suprapubic tube catheter, irrigation and packing of left inguinal wound 09/10/18 washout and debridement of left inguinal abscess with placement of wound VAC followed by serial serial washouts, debridement and wound VAC exchange - 09/10, 09/13, 09/15, 09/18, 09/21, 09/23, 09/25, 09/28, 09/3010/02/18 -washout, debridement, partial wound closure and application of wound VAC 09/15 -excision and biopsy of wound, left lateral ankle with skin plasty, left lateral ankle, ostectomy left lateral malleolus Completed studies during hospitalization: Pending at discharge 09/13/18 08:13 Surgical [PTH] Routine Labs on day of discharge: Labs from last 24 hours 10/05/18 10/04/18 10/04/18 01:51 19:59 17:00 POC Glucose 159 H 157 H 72 10/04/18 10/04/18 11:22 08:57 POC Glucose 218 H 139 H - Impressions ITS Impressions Chest X-Ray 08/28/18 12:34 CONCLUSION: No acute cardiopulmonary disease. Abdomen/Pelvis CT 08/29/18 00:00 CONCLUSION: 1. Abnormal gas collection along the left inguinal region which extends out laterally into the subcutaneous fat with surrounding inflammatory change. There is an abnormal gas collection also noted along the base of the scrotum and perineum likely is continuous with this.. There is soft tissue swelling and thickening around the base of the penis. No drainable fluid collection. 2. Bladder wall thickening. 3. Small bilateral pleural effusions. 4. Mildly nonspecific bowel gas pattern most characteristic of an ileus. Foot X-Ray 08/29/18 09:40 CONCLUSION: Chronic change as described above. An area of acute bony destruction or acute periosteal reaction is not clearly seen on this plain film examination. Cystogram 09/03/18 00:00 CONCLUSION: 1. Small size bladder with significant trabeculations consistent with chronic bladder outlet obstruction 2. Reflux of contrast into an enlarged distal right ureter. Ankle X-Ray 09/13/18 00:00 CONCLUSION: 1. Chronic likely posttraumatic and degenerative changes, as above. Pelvis CT 09/14/18 00:00 CONCLUSION: 1. Abscess in the left lower abdominal quadrant extending into the inguinal region into the left side of the scrotum seen previously appears to been successfully surgically excised. A large soft tissue defect is seen in the prior location of the abscess. 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 2. Stable postsurgical changes with a colonic ostomy in the left lower abdominal quadrant. A line of surgical aneta identified in the expected location of the rectosigmoid junction. 3. Urinary bladder is decompressed with a suprapubic catheter. Degree of mural thickening has diminished from the prior. Venous Doppler Study 09/26/18 00:00 CONCLUSION: No evidence of right lower extremity DVT. Discharge Plan - Discharge Disposition Patient Disposition: /Home Health Service - Discharge Condition Condition: Fair - Discharge Order Discharge Orders: Discharge Order (Routine); Ordered 10/05/18 Ordered By: Pushpa Ware - Discharge Details Anticipated Discharge Date: 10/05/18 Discharge Comment: Discharge pendig CM setting up C - Physicians Team Primary Care Provider: Primary Care Physici,No Attending Provider: Anuja Guillen Other Providers: Luly Harper DPM ; Norbert Cassidy DO ; Kajal Coppola MD ; Dipesh Dale MD ; [facility]
[2018-10-05] MEDS: Senna/Docusate Sodium 8.6/50 MG Tablet PO SCH ×2 (11:10→22:05)
[2018-10-05] MEDS: Sodium Chloride 0.9% 2 ML Flush BID IV.FLUSH SCH ×2 (11:13→22:05)
[2018-10-05] MEDS: Collagenase Oint 30 GM Tube TOPICAL SCH (11:13)
[2018-10-05] MEDS: Petrolatum 49%/Zinc Oxide 15% Barrier Oint 120 GM Tube TOPICAL SCH (11:13)
[2018-10-05] MEDS: Ferrous Sulfate 325 MG Tablet PO SCH ×2 (13:47→17:45)
[2018-10-06] MEDS: Insulin NovoLOG Aspart Correctional Sugar Inj SQ SCH ×6 (03:00→21:49)
--- NOTE | 2018-10-06 07:28 | P.PN ---
Subjective Interval history: No interval change. Patient is stable. He does not voice any new medical complaints or concerns. Discussed with nursing staff, no adverse events noted overnight. Patient to have wound VAC changed today. Physical Exam Vital signs: Vital Signs 10/05/18 08:00 10/05/18 12:00 10/05/18 14:00 Temperature 97.2 F L 98.2 F Pulse Rate 72 71 Respiratory Rate 14 18 16 Blood Pressure 134/63 117/59 L Pulse Oximetry 98 96 10/05/18 16:00 10/05/18 20:00 10/06/18 00:00 Temperature 99.0 F 99.2 F 98.1 F Pulse Rate 82 91 H 80 Respiratory Rate 16 18 18 Blood Pressure 149/71 H 117/59 L 125/60 Pulse Oximetry 97 97 100 10/06/18 04:00 Temperature 98.1 F Pulse Rate 71 Respiratory Rate 18 Blood Pressure 144/65 H Pulse Oximetry 97 Intake & Output 10/05/18 10/06/18 10/06/18 18:59 06:59 18:59 Intake Total 1500 / 1500 Output Total 1700 / 1700 1500 / 1500 Balance -200 / -200 -1500 / -1500 Weight 88.6 kg Intake: Oral 1500 / 1500 Output: Urine 1500 / 1500 Urine Amount (Catheter) 1300 / 1300 Suprapubic 1300 / 1300 Stool Amount (Stoma) 400 / 400 Left Upper Abdomen 400 / 400 Other: Mode Setting Left Groin Continuous Continuous Date of Last Bowel Movement 10/04/18 Narrative: GENERAL: WDWN male patient. Awake and alert. Sitting up in chair watching tv. In no acute distress. SKIN: Warm and dry. Left inguinal area wound with aneta in place except over distal aspect which has small wound sponge in place with good vac seal. HEENT: Atraumatic. Normocephalic. Pupils equal and round. No scleral icterus. No injection or drainage. No nasal bleeding or discharge. Mucous membranes pink and moist. NECK: Trachea midline. CARDIOVASCULAR: Regular rate and rhythm. RESPIRATORY: No accessory muscle use. Clear to auscultation. Breath sounds equal bilaterally. GASTROINTESTINAL: Abdomen soft, non-tender, nondistended. +colostomy. GENITOURINARY: +suprapubic catheter in place with clear yellow urine in bag. MUSCULOSKELETAL: Extremities without clubbing, cyanosis, or edema. No obvious deformities. NEUROLOGICAL: Awake and alert. No obvious cranial nerve deficits. Motor grossly within normal limits. Able to move all extremities spontaneously. Normal speech. PSYCHIATRIC: Appropriate mood and affect; Calm and cooperative. - Urinary Catheter Management Indwelling Urethral Catheter Cath placed during this visit: yes, but has since been removed by the nurse Reason for continuing: Chronic Urinary Retention Insertion date: 09/07/18 Insertion time: 16:00 Removal date: 09/10/18 Removal time: 16:00 Suprapubic Cath placed during this visit: yes Reason for continuing: Not indwelling catheter Insertion date: 09/03/18 Insertion time: 17:30 Results - Labs CBC & Chem 7: 09/23/18 06:36 09/29/18 08:20 Laboratory Results - last 24 hr 10/05/18 10/05/18 10/05/18 08:17 11:23 16:55 POC Glucose 136 H 164 H 60 L 10/05/18 10/06/18 20:15 03:28 POC Glucose 140 H 117 H - Procedures 09/25 Left groin washout with VAC change Assessment and Plan - Assessment (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 - Urethral fistula Status: Acute (2) Abscess of groin, left Code(s): L02.214 - Cutaneous abscess of groin Status: Resolved (3) UTI (urinary tract infection) Code(s): N39.0 - Urinary tract infection, site not specified Status: Acute (4) Sepsis Code(s): A41.9 - Sepsis, unspecified organism Status: Resolved (5) Diabetes Code(s): E11.9 - Type 2 diabetes mellitus without complications Status: Chronic (6) Gait instability Code(s): R26.81 - Unsteadiness on feet Status: Acute (7) Risk for falls Code(s): Z91.81 - History of falling Status: Acute (8) Weakness Code(s): R53.1 - Weakness Status: Acute - Plan 68 y/o CM with PMHx of DM admitted for IP mgmt of septic shock, now with left vesiculo-cutaneous Inguinal fistula s/p I&D with wound Vac placement on 09/10, also had washout of the wound and VAC change as well as ostectomy of left fibula with excision of wound of the left ankle with skin plasty on 09/13. Ongoing washout and wound VAC change per urology. 10/06 No significant change. Patient is stable. Low BS yesterday of 60. BS better today. No adverse events noted overnight. Case management assisting with discharge planning, awaiting insurance authorization for home health care. Left Urethral Cutaneous Inguinal Fistula Initially admitted for septic shock, OR on 09/03/2018 for suprapubic catheter placement s/p Zosyn D/C'd on 09/14 by ID s/p I&D of fistula and wound VAC placement s/p recurrent wound vac changes. Pain controlled with hydrocodone as needed. Appreciate Urology assistance with management. Repeat irrigation and washout , 09/21/18, 09/25, 09/28, 09/30. 10/02 underwent repeat washout and debridement, wound was closed with aneta up to the area of the groin and scrotal junction and small sponge placed at top of the left hemiscrotum with vac placement. Will need bedside VAC change MWF. Urinary tract infection S/P Fluconazole completed 14 days- 09/18, resolved Neg Urine Cx 09/05 x48hrs, final Urine Cx 08/30 Rachel Type 2 Diabetes A1C 12.7 on admission 08/29 Diabetic diet BS running lower. Hypoglycemic episode yesterday with BS 60. Decrease Insulin 70/30 to 10U BID and sliding scale insulin restarted metformin 500 mg bid 09/25. Increased to 1gm BID 09/29, continue. Will hold this afternoons dose of Metformin. monitor and adjust regimen Left lateral foot ankle ulceration s/p excision/biopsy of wound with skin plasty left lateral ankle, ostectomy left lateral malleolus on 09/13, no signs of infx Ok for DC -to follow-up outpatient per podiatry with Dr. Christiansen within 1 week of discharge Weight bearing as tolerated to the left LE Sacral/gluteal decub Continue wound care Anemia, iron deficiency Diagnosed per iron studies H&H stable Cont. Ferrous Sulfate 325mg BID Continue to monitor Right LE/calf swelling-no pain doppler of legs r/o DVT- negative for DVT DVT prophylaxis bilateral SCD/ABI hose Code Status: Full Discussed Condition With: patient, nursing staff, Dr. Guillen Discharge Planning: Discharge pending [facility] set up/insurance approval (4) Sepsis Qualifiers: Sepsis type: sepsis due to unspecified organism Qualified Code(s): A41.9 - Sepsis, unspecified organism (5) Diabetes Qualifiers: Diabetes mellitus type: type 2
[2018-10-06] MEDS: Sodium Chloride 0.9% 2 ML Flush BID IV.FLUSH SCH ×2 (08:40→21:50)
[2018-10-06] MEDS: Senna/Docusate Sodium 8.6/50 MG Tablet PO SCH ×2 (08:41→21:50)
[2018-10-06] MEDS: Petrolatum 49%/Zinc Oxide 15% Barrier Oint 120 GM Tube TOPICAL SCH (08:42)
[2018-10-06] MEDS: Collagenase Oint 30 GM Tube TOPICAL SCH (08:43)
[2018-10-06] MEDS: Ferrous Sulfate 325 MG Tablet PO SCH ×2 (12:31→16:38)
--- NOTE | 2018-10-07 07:36 | P.PN ---
Subjective Interval history: Patient is stable. He is looking forward to going home. Patient does not voice any acute medical concerns or complaints. Discussed with nursing staff, no adverse events noted overnight. Physical Exam Vital signs: Vital Signs 10/06/18 08:00 10/06/18 12:00 10/06/18 16:00 Temperature 98.0 F 97.9 F 98.1 F Pulse Rate 70 73 72 Respiratory Rate 16 14 16 Blood Pressure 124/62 110/58 L 132/65 Pulse Oximetry 98 98 98 10/06/18 19:31 10/06/18 20:00 10/07/18 00:00 Temperature 98.4 F 98.4 F Pulse Rate 75 73 72 Respiratory Rate 17 19 Blood Pressure 145/72 H 109/57 L Pulse Oximetry 97 97 10/07/18 04:00 Temperature 97.2 F L Pulse Rate 68 Respiratory Rate 20 Blood Pressure 104/57 L Pulse Oximetry 100 Intake & Output 10/06/18 10/07/18 10/07/18 18:59 06:59 18:59 Output Total 1100 / 1100 1999 Balance -1100 / -1099 -1999 Weight 88.3 kg Output: Urine Amount (Catheter) 1100 / 1100 1999 Suprapubic 1100 / 1100 1999 Other: Mode Setting Left Groin Intermittent Intermittent Narrative: GENERAL: WDWN male patient. Awake and alert. Appears comfortable lying in bed watching tv. In no acute distress. SKIN: Warm and dry. Left inguinal area wound with aneta in place except over distal aspect which has small wound sponge in place with good vac seal. HEENT: Atraumatic. Normocephalic. EOMI. No scleral icterus. No injection or drainage. No nasal bleeding or discharge. Mucous membranes pink and moist. NECK: Trachea midline. CARDIOVASCULAR: Regular rate and rhythm. RESPIRATORY: No accessory muscle use. Clear to auscultation. Breath sounds equal bilaterally. GASTROINTESTINAL: Abdomen soft, non-tender, nondistended. +colostomy, no stool noted in bag. GENITOURINARY: +suprapubic catheter in place with clear yellow urine in bag. MUSCULOSKELETAL: Extremities without clubbing, cyanosis, or edema. NEUROLOGICAL: Awake and alert. No obvious cranial nerve deficits. Motor grossly within normal limits. Able to move all extremities spontaneously. Normal speech. PSYCHIATRIC: Appropriate mood and affect; Calm and cooperative. - Urinary Catheter Management Indwelling Urethral Catheter Cath placed during this visit: yes, but has since been removed by the nurse Reason for continuing: Chronic Urinary Retention Insertion date: 09/07/18 Insertion time: 16:00 Removal date: 09/10/18 Removal time: 16:00 Suprapubic Cath placed during this visit: yes Reason for continuing: Not indwelling catheter Insertion date: 09/03/18 Insertion time: 17:30 Results - Labs CBC & Chem 7: 09/23/18 06:36 09/29/18 08:20 Laboratory Results - last 24 hr 10/06/18 10/06/18 10/06/18 08:22 11:19 16:36 POC Glucose 142 H 127 H 130 H 10/06/18 10/07/18 21:48 03:44 POC Glucose 112 H 122 H - Procedures 09/03 - Cystogram, flexible cystoscopy, antegrade urethrogram, placement of suprapubic tube catheter, irrigation and packing of left inguinal wound 09/10/18 washout and debridement of left inguinal abscess with placement of wound VAC followed by serial serial washouts, debridement and wound VAC exchange - 09/10, 09/13, 09/15, 09/18, 09/21, 09/23, 09/25, 09/28, 09/3010/02/18 -washout, debridement, partial wound closure and application of wound VAC 09/15 -excision and biopsy of wound, left lateral ankle with skin plasty, left lateral ankle, ostectomy left lateral malleolus Assessment and Plan - Assessment (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 - Urethral fistula Status: Acute (2) Abscess of groin, left Code(s): L02.214 - Cutaneous abscess of groin Status: Resolved (3) UTI (urinary tract infection) Code(s): N39.0 - Urinary tract infection, site not specified Status: Acute (4) Sepsis Code(s): A41.9 - Sepsis, unspecified organism Status: Resolved (5) Diabetes Code(s): E11.9 - Type 2 diabetes mellitus without complications Status: Chronic (6) Gait instability Code(s): R26.81 - Unsteadiness on feet Status: Acute (7) Risk for falls Code(s): Z91.81 - History of falling Status: Acute (8) Weakness Code(s): R53.1 - Weakness Status: Acute - Plan 68 y/o CM with PMHx of DM admitted for IP mgmt of septic shock, now with left vesiculo-cutaneous Inguinal fistula s/p I&D with wound Vac placement on 09/10, also had washout of the wound and VAC change as well as ostectomy of left fibula with excision of wound of the left ankle with skin plasty on 09/13. Ongoing washout and wound VAC change per urology. 10/07 Patient awaiting insurance auth for [facility]. CM assisting with discharge planning. Patient status post wound VAC change yesterday. Patient denies any new medical complaints. No interval change. Patient is stable. Vital signs stable. He is afebrile. Discussed with nursing staff, no adverse events noted. Left Urethral Cutaneous Inguinal Fistula Initially admitted for septic shock, OR on 09/03/2018 for suprapubic catheter placement s/p Zosyn D/C'd on 09/14 by ID s/p I&D of fistula and wound VAC placement s/p recurrent wound vac changes. Pain controlled with hydrocodone as needed. Appreciate Urology assistance with management. Repeat irrigation and washout , 09/21/18, 09/25, 09/28, 09/30. 10/02 underwent repeat washout and debridement, wound was closed with aneta up to the area of the groin and scrotal junction and small sponge placed at top of the left hemiscrotum with vac placement. Will need bedside VAC change MWF. BERTRAND Cassidy who has cleared patient for discharge, Will need SP tube changed in 3 weeks. Urinary tract infection S/P Fluconazole completed 14 days- 09/18, resolved Neg Urine Cx 09/05 x48hrs, final Urine Cx 08/30 Rachel Type 2 Diabetes A1C 12.7 on admission 08/29 Diabetic diet Continue on Insulin 70/30 10U BID and sliding scale insulin 10/06 low BS. Metformin on hold. monitor and adjust regimen Left lateral foot ankle ulceration s/p excision/biopsy of wound with skin plasty left lateral ankle, ostectomy left lateral malleolus on 09/13, no signs of infx Ok for DC -to follow-up outpatient per podiatry with Dr. Christiansen within 1 week of discharge Weight bearing as tolerated to the left LE Sacral/gluteal decub Continue wound care Anemia, iron deficiency Diagnosed per iron studies H&H stable Cont. Ferrous Sulfate 325mg BID Continue to monitor Right LE/calf swelling-no pain doppler of legs r/o DVT- negative for DVT DVT prophylaxis bilateral SCD/ABI hose Code Status: Full Discussed Condition With: patient, nursing staff, Dr. Guillen Discharge Planning: Patient discharged from medical standpoint. Awaiting home health care to be set up for wound VAC and suprapubic catheter management. Case management assisting with discharge planning. (4) Sepsis Qualifiers: Sepsis type: sepsis due to unspecified organism Qualified Code(s): A41.9 - Sepsis, unspecified organism (5) Diabetes Qualifiers: Diabetes mellitus type: type 2
[2018-10-07] MEDS: Sodium Chloride 0.9% 2 ML Flush BID IV.FLUSH SCH ×2 (11:02→20:08)
[2018-10-07] MEDS: Collagenase Oint 30 GM Tube TOPICAL SCH (11:02)
[2018-10-07] MEDS: Petrolatum 49%/Zinc Oxide 15% Barrier Oint 120 GM Tube TOPICAL SCH (11:02)
[2018-10-07] MEDS: Senna/Docusate Sodium 8.6/50 MG Tablet PO SCH ×2 (11:03→20:09)
[2018-10-07] MEDS: Insulin NovoLOG Aspart Correctional Sugar Inj SQ SCH ×4 (11:03→20:08)
[2018-10-07] MEDS: Ferrous Sulfate 325 MG Tablet PO SCH ×2 (12:58→17:21)
[2018-10-08] MEDS: Insulin NovoLOG Aspart Correctional Sugar Inj SQ SCH ×3 (03:22→13:55)
[2018-10-08 04:08] VITALS: O2SAT 99
--- NOTE | 2018-10-08 07:31 | P.PN ---
Subjective Interval history: Patient is doing well. He tells me he is being discharged today. He denies any new medical complaints. He denies any fever or chills. He denies any chest pain or shortness of breath. He denies any nausea, vomiting or abdominal pain. He denies any diarrhea or constipation. Physical Exam Vital signs: Vital Signs 10/07/18 08:00 10/07/18 10:54 10/07/18 10:56 Temperature 97.7 F 97.4 F L 97.4 F L Pulse Rate 71 69 67 Respiratory Rate 18 19 19 Blood Pressure 119/61 112/56 L 112/56 L Pulse Oximetry 98 97 97 10/07/18 16:00 10/07/18 20:00 10/07/18 23:52 Temperature 97.6 F 98.2 F 97.9 F Pulse Rate 70 69 64 Respiratory Rate 18 17 16 Blood Pressure 103/60 134/62 109/68 Pulse Oximetry 100 98 98 10/08/18 04:07 Temperature 98.2 F Pulse Rate 58 L Respiratory Rate 16 Blood Pressure 110/59 L Pulse Oximetry 99 Intake & Output 10/07/18 10/08/18 10/08/18 18:59 06:59 18:59 Intake Total 1320 / 1320 Output Total 1750 / 1750 Balance 1320 / 1320 -1750 / -1750 Weight 87.2 kg Intake: Oral 1320 / 1320 Output: Urine Amount (Catheter) 1750 / 1750 Suprapubic 1750 / 1750 Other: Mode Setting Left Groin Intermittent # Voids 650 Date of Last Bowel Movement 10/07/18 10/07/18 # Bowel Movements 0 Narrative: GENERAL: WDWN male patient, INAD. Awake and alert. Appears comfortable lying in bed watching tv. SKIN: Warm and dry. Left inguinal area wound with aneta in place except over distal aspect which has small wound sponge in place with good vac seal. HEENT: Atraumatic. Normocephalic. EOMI. No scleral icterus. No injection or drainage. No nasal bleeding or discharge. Mucous membranes pink and moist. NECK: Trachea midline. CARDIOVASCULAR: Regular rate and rhythm. RESPIRATORY: No accessory muscle use. Clear to auscultation. Breath sounds equal bilaterally. GASTROINTESTINAL: Abdomen soft, non-tender, nondistended. +colostomy, no stool noted in bag. GENITOURINARY: +suprapubic catheter in place with clear yellow urine in bag. MUSCULOSKELETAL: Extremities without clubbing, cyanosis, or edema. NEUROLOGICAL: Awake and alert. No obvious cranial nerve deficits. Motor grossly within normal limits. Able to move all extremities spontaneously. Normal speech. PSYCHIATRIC: Appropriate mood and affect; Calm and cooperative. - Urinary Catheter Management Indwelling Urethral Catheter Cath placed during this visit: yes, but has since been removed by the nurse Reason for continuing: Chronic Urinary Retention Insertion date: 09/07/18 Insertion time: 16:00 Removal date: 09/10/18 Removal time: 16:00 Suprapubic Cath placed during this visit: yes Reason for continuing: Not indwelling catheter Insertion date: 09/03/18 Insertion time: 17:30 Results - Labs CBC & Chem 7: 09/23/18 06:36 09/29/18 08:20 Laboratory Results - last 24 hr 10/07/18 10/07/18 10/07/18 07:50 11:33 17:24 POC Glucose 138 H 178 H 106 10/07/18 10/08/18 19:49 03:17 POC Glucose 158 H 127 H - Procedures 09/03 - Cystogram, flexible cystoscopy, antegrade urethrogram, placement of suprapubic tube catheter, irrigation and packing of left inguinal wound 09/10/18 washout and debridement of left inguinal abscess with placement of wound VAC followed by serial serial washouts, debridement and wound VAC exchange - 09/10, 09/13, 09/15, 09/18, 09/21, 09/23, 09/25, 09/28, 09/3010/02/18 -washout, debridement, partial wound closure and application of wound VAC 09/15 -excision and biopsy of wound, left lateral ankle with skin plasty, left lateral ankle, ostectomy left lateral malleolus Assessment and Plan - Assessment (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 - Urethral fistula Status: Acute (2) Abscess of groin, left Code(s): L02.214 - Cutaneous abscess of groin Status: Resolved (3) UTI (urinary tract infection) Code(s): N39.0 - Urinary tract infection, site not specified Status: Acute (4) Sepsis Code(s): A41.9 - Sepsis, unspecified organism Status: Resolved (5) Diabetes Code(s): E11.9 - Type 2 diabetes mellitus without complications Status: Chronic (6) Gait instability Code(s): R26.81 - Unsteadiness on feet Status: Acute (7) Risk for falls Code(s): Z91.81 - History of falling Status: Acute (8) Weakness Code(s): R53.1 - Weakness Status: Acute - Plan 68 y/o CM with PMHx of DM admitted for IP mgmt of septic shock, now with left vesiculo-cutaneous Inguinal fistula s/p I&D with wound Vac placement on 09/10, also had washout of the wound and VAC change as well as ostectomy of left fibula with excision of wound of the left ankle with skin plasty on 09/13. Ongoing washout and wound VAC change per urology. 10/08 Patient remains stable. He is afebrile. VSS. He does not voice any new concerns or complaints. Discussed with nursing staff, no adverse events noted overnight. Left Urethral Cutaneous Inguinal Fistula Initially admitted for septic shock, OR on 09/03/2018 for suprapubic catheter placement s/p Zosyn D/C'd on 09/14 by ID s/p I&D of fistula and wound VAC placement s/p recurrent wound vac changes. Pain controlled with hydrocodone as needed. Appreciate Urology assistance with management. Repeat irrigation and washout , 09/21/18, 09/25, 09/28, 09/30. 10/02 underwent repeat washout and debridement, wound was closed with aneta up to the area of the groin and scrotal junction and small sponge placed at top of the left hemiscrotum with vac placement. Will need bedside VAC change MW. BERTRAND Cassidy who has cleared patient for discharge. Will need SP tube changed in 3 weeks. CM assisting with discharge planning, HHC, wound vac supplies, etc. Urinary tract infection S/P Fluconazole completed 14 days- 09/18, resolved Neg Urine Cx 09/05 x48hrs, final Urine Cx 08/30 Rachel Type 2 Diabetes A1C 12.7 on admission 08/29 Diabetic diet Continue on Insulin 70/30 10U BID and sliding scale insulin 10/06 low BS. Metformin on hold. monitor and adjust regimen Left lateral foot ankle ulceration s/p excision/biopsy of wound with skin plasty left lateral ankle, ostectomy left lateral malleolus on 09/13, no signs of infx Ok for DC -to follow-up outpatient per podiatry with Dr. Christiansen within 1 week of discharge Weight bearing as tolerated to the left LE Sacral/gluteal decub Continue wound care Anemia, iron deficiency Diagnosed per iron studies H&H stable Cont. Ferrous Sulfate 325mg BID Continue to monitor Right LE/calf swelling-no pain doppler of legs r/o DVT- negative for DVT DVT prophylaxis bilateral SCD/ABI hose Code Status: Full Discussed Condition With: patient, nursing staff, Dr. Guillen Discharge Planning: Patient discharged from medical standpoint. Awaiting home health care to be set up for wound VAC and suprapubic catheter management. Case management assisting with discharge planning. (4) Sepsis Qualifiers: Sepsis type: sepsis due to unspecified organism Qualified Code(s): A41.9 - Sepsis, unspecified organism (5) Diabetes Qualifiers: Diabetes mellitus type: type 2
[2018-10-08 09:33] VITALS: BP 112/57; PULSE 63; RESP 20; TEMP 97.7
[2018-10-08] MEDS: Collagenase Oint 30 GM Tube TOPICAL SCH (10:02)
[2018-10-08] MEDS: Sodium Chloride 0.9% 2 ML Flush BID IV.FLUSH SCH (10:02)
[2018-10-08] MEDS: Petrolatum 49%/Zinc Oxide 15% Barrier Oint 120 GM Tube TOPICAL SCH (10:02)
[2018-10-08] MEDS: Senna/Docusate Sodium 8.6/50 MG Tablet PO SCH (10:02)
[2018-10-08] MEDS: Ferrous Sulfate 325 MG Tablet PO SCH (13:55)
== END 2018-10-08 15:00 | disposition home health service (06) ==
LOC: PHED 12:08 → PHEDA 15:33 → PHICU 21:34 → N03 08-30 16:04 → N05 09-01 15:31
PROVIDERS: ADMIT Family Medicine; ATTEND Family Medicine

== ENCOUNTER 2018-10-12 16:38 | Inpatient (IN) ==
[2018-10-12] MEDS ORDERED: Sod Chloride 0.9% Inj 1,000 ML IV.SIG SCH (17:30)
--- NOTE | 2018-10-12 18:13 | ED ---
HPI General Chief complaint: Medical Clearance Stated complaint: non medical- Time Seen by Provider: 10/12/18 17:06 Source: patient and EMS Mode of arrival: EMS Limitations: other History of Present Illness HPI narrative: Patient is a 68-year-old male, recently discharged from the hospital after urosepsis with a urethrocutaneous fistula, who presents via EMS. Per report he was discharged home approximately 4 days ago and taken home by [facility]. He cannot walk secondary to weakness and sat on his porch until he was picked up by EMS today. His neighbors brought him ravioli but he is not had any other food, water, medications. He is visited today by home health nurse then called EMS for concern of an unsafe discharge. Patient denies any chest pain, abdominal pain. He lives at home alone and states he is just been too weak from his illness to walk. Onset (ago): unknown Severity: mild Quality: other Relieving factors: none Exacerbating factors: none Associated symptoms: Reports denies other symptoms Treatments prior to arrival: Reports none Related Data Previous Rx's Medication Instructions Recorded ferrous sulfate [FeroSul] 325 mg PO BID@1200,1700 30 Days 10/05/18 tab insulin NPH and regular human 12 units SUBCUT BID@0800,1700 30 10/05/18 [Novolin 70/30 U-100 Insulin] Days ml metformin [Glucophage] 1,000 mg PO BIDPC 30 Days tab 10/05/18 Allergies Allergy/AdvReac Type Severity Reaction Status Date / Time Influenza Virus Vaccines Allergy Severe Anaphylaxis Verified 08/28/18 12:12 *MDRO Multi-Drug Resistant AdvReac Unknown [place] Uncoded 08/28/18 12:12 Organism Review of Systems ROS: all other systems reviewed are negative PMFSH Social History Social History Substance History: No History of Abuse Second Hand Smoke Exposure: No Smoking Status: Unknown if ever smoked How Often Do You Have a Drink Containing Alcohol: Unable to Obtain Recent Travel in [place] within the Last 8 Weeks: No Recent Out of Country Travel within the Last 8 Weeks: No Exam Narrative Exam Narrative: GENERAL: Chronically ill-appearing male in no acute distress; covered in dried feces and dirt. Plastic parts from a [employer] found and crack of buttocks. SKIN: Focused skin assessment warm/dry. Healing decubitus ulcer to the sacrum and left ankle. [place] to the left groin with some dehiscence. Colostomy and suprapubic cath present. HEAD: Atraumatic. Normocephalic. EYES: Pupils equal and round. No scleral icterus. No injection or drainage. ENT: No nasal bleeding or discharge. Mucous membranes pink and dry. NECK: Trachea midline. No JVD. CARDIOVASCULAR: Regular rate and rhythm. No murmur appreciated. RESPIRATORY: No accessory muscle use. Clear to auscultation. Breath sounds equal bilaterally. GASTROINTESTINAL: Abdomen soft, non-tender, nondistended. Hepatic and splenic margins not palpable. MUSCULOSKELETAL: No obvious deformities. No clubbing. No cyanosis. No edema. NEUROLOGICAL: Awake and alert. No obvious cranial nerve deficits. Generalized weakness throughout. Normal speech. PSYCHIATRIC: Appropriate mood and affect; insight and judgment normal. Course Initial Documented Vital Signs Temperature 98.5 F 10/12/18 16:56 Pulse Rate 75 10/12/18 16:56 Respiratory Rate 17 10/12/18 16:56 Blood Pressure 116/70 10/12/18 16:56 Pulse Oximetry 100 10/12/18 16:56 Last Documented Vital Signs Temperature 98.2 F 10/12/18 22:36 Pulse Rate 64 10/12/18 22:36 Respiratory Rate 16 10/12/18 22:36 Blood Pressure 98/57 L 10/12/18 22:36 Pulse Oximetry 98 10/12/18 22:36 Medical Decision Making MDM Narrative Medical decision making narrative: She is a 68-year-old male who presents after being found in his porch at home. He is covered in fecal matter and dirt. He has chronic ulcers which appear to be healing. UA may show an infection versus reactionary changes secondary to his recent surgeries and procedures. He was given Rocephin empirically in the emergency department. I spoke with Dr. Robertson whom stated that he did not meet admission criteria (social admit) and that she recommended we wait for the urine culture to return prior to treating the possible UTI. We will spoke extensively with the case operator whom stated that the patient would undergo the observation in the emergency department for placement prior to bedded outpatient status. His outpatient medications have been ordered. Medical Screen Exam Complete: Yes Emergency Medical Condition: Yes Differential Diagnosis Differential Diagnosis: Differential diagnosis includes but is not limited to acute kidney injury, dehydration, electrolyte abnormality, anemia. Medical Records Medical records reviewed: Yes I reviewed the patient's medical records. Lab Data Result diagrams: 10/12/18 18:00 10/12/18 18:00 Lab Results 10/12/18 10/12/18 10/12/18 Range/Units 18:00 18:00 19:25 WBC 11.1 H (4.0-11.0) th/mm3 RBC 4.44 L (4.50-5.90) mil/mm3 Hgb 13.1 (13.0-17.0) gm/dL Hct 39.4 (39.0-51.0) % MCV 88.8 (80.0-100.0) fL MCH 29.4 (27.0-34.0) pg MCHC 33.1 (32.0-36.0) % RDW 16.5 (11.6-17.2) % Plt Count 209 (150-450) th/mm3 MPV 8.6 (7.0-11.0) fL Neut % (Auto) 75.4 H (16.0-70.0) % Lymph % (Auto) 17.2 (9.0-44.0) % [place] % (Auto) 5.8 (0.0-8.0) % Eos % (Auto) 0.9 (0.0-4.0) % Baso % (Auto) 0.7 (0.0-2.0) % Neut # (Auto) 8.3 H (1.8-7.7) th/mm3 Lymph # (Auto) 1.9 (1.0-4.8) th/mm3 [place] # (Auto) 0.6 (0.0-0.9) th/mm3 Eos # (Auto) 0.1 (0.0-0.4) th/mm3 Baso # (Auto) 0.1 (0.0-0.2) th/mm3 WBC Differential . Differential Comment Auto diff final Sodium 140 (136-145) meq/L Potassium 3.9 (3.5-5.1) meq/L Chloride 103 (98-107) meq/L Carbon Dioxide 32.2 H (21.0-32.0) meq/L Anion Gap 5 (5-15) meq/L BUN 21 H (7-18) mg/dL Creatinine 0.86 (0.60-1.30) mg/dL Estimated GFR 88 L (>89) mL/min POC Glucose (68-110) mg/dl Random Glucose 153 H (74-106) mg/dL Calcium 8.6 (8.5-10.1) mg/dL Magnesium 1.7 (1.5-2.5) mg/dL Total Bilirubin 0.3 (0.2-1.0) mg/dL AST 19 (15-37) U/L ALT 14 (12-78) U/L Alkaline Phosphatase 71 (45-117) U/L Troponin I Less than 0.02 L (0.02-0.05) ng/mL Total Protein 8.0 (6.4-8.2) g/dL Albumin 3.2 L (3.4-5.0) g/dL Urine Color Yellow (Yellw/Straw) Urine Clarity Cloudy H (Clear) Urine pH 5.0 (5.0-8.5) Ur Specific [place] 1.018 (1.002-1.035) Urine Protein 100 H (Neg-Trace) mg/dL Urine Glucose (UA) Negative (Negative) mg/dL Urine Ketones Negative (Negative) mg/dL Urine Occult Blood Small H (Negative) Urine Nitrate Positive H (Negative) Urine Bilirubin Negative (Negative) Urine Urobilinogen Less than 2 (Less than 2) mg/dL Ur Leukocyte Esterase Large H (Negative) Urine RBC 7 H (0-3) /hpf Urine WBC (0-5) /hpf Urine WBC Clumps Many H (None) Urine Bacteria Moderate H (None) /hpf Urine Mucus Few H (Occasional) /lpf Micro UA Comment Culture indicated Ur Microscopic Review Not Reportable Urine Culture Comments Culture indicated 10/12/18 Range/Units 19:28 WBC (4.0-11.0) th/mm3 RBC (4.50-5.90) mil/mm3 Hgb (13.0-17.0) gm/dL Hct (39.0-51.0) % MCV (80.0-100.0) fL MCH (27.0-34.0) pg MCHC (32.0-36.0) % RDW (11.6-17.2) % Plt Count (150-450) th/mm3 MPV (7.0-11.0) fL Neut % (Auto) (16.0-70.0) % Lymph % (Auto) (9.0-44.0) % [place] % (Auto) (0.0-8.0) % Eos % (Auto) (0.0-4.0) % Baso % (Auto) (0.0-2.0) % Neut # (Auto) (1.8-7.7) th/mm3 Lymph # (Auto) (1.0-4.8) th/mm3 [place] # (Auto) (0.0-0.9) th/mm3 Eos # (Auto) (0.0-0.4) th/mm3 Baso # (Auto) (0.0-0.2) th/mm3 WBC Differential Differential Comment Sodium (136-145) meq/L Potassium (3.5-5.1) meq/L Chloride (98-107) meq/L Carbon Dioxide (21.0-32.0) meq/L Anion Gap (5-15) meq/L BUN (7-18) mg/dL Creatinine (0.60-1.30) mg/dL Estimated GFR (>89) mL/min POC Glucose 226 H (68-110) mg/dl Random Glucose (74-106) mg/dL Calcium (8.5-10.1) mg/dL Magnesium (1.5-2.5) mg/dL Total Bilirubin (0.2-1.0) mg/dL AST (15-37) U/L ALT (12-78) U/L Alkaline Phosphatase (45-117) U/L Troponin I (0.02-0.05) ng/mL Total Protein (6.4-8.2) g/dL Albumin (3.4-5.0) g/dL Urine Color (Yellw/Straw) Urine Clarity (Clear) Urine pH (5.0-8.5) Ur Specific [place] (1.002-1.035) Urine Protein (Neg-Trace) mg/dL Urine Glucose (UA) (Negative) mg/dL Urine Ketones (Negative) mg/dL Urine Occult Blood (Negative) Urine Nitrate (Negative) Urine Bilirubin (Negative) Urine Urobilinogen (Less than 2) mg/dL Ur Leukocyte Esterase (Negative) Urine RBC (0-3) /hpf Urine WBC (0-5) /hpf Urine WBC Clumps (None) Urine Bacteria (None) /hpf Urine Mucus (Occasional) /lpf Micro UA Comment Ur Microscopic Review Urine Culture Comments Imaging Data Radiologist's impression: Chest X-Ray 10/12/18 17:29 CONCLUSION: No acute cardiopulmonary process. Discharge Plan Discharge Disposition Patient Disposition: 30 Still Patient Discharge Condition Condition: Stable Discharge Details Diagnosis: Physical deconditioning Physicians Team ED Provider: Mariely Estrada Primary Care Provider: Primary Care Pricilla Posey Rxs /Orders / Referrals /Forms Prescriptions: No Action metformin [Glucophage] 500 mg Tablet 1,000 mg PO BIDPC 30 Days RF: 0 insulin NPH and regular human [Novolin 70/30 U-100 Insulin] 100 unit/mL (70-30 ) Suspension 12 units subcut BID@0800,1700 30 Days RF: 0 ferrous sulfate [FeroSul] 325 mg (65 mg iron) Tablet 325 mg PO BID@1200,1700 30 Days RF: 0 Discharge Interventions Interventions: Vital Signs Last Done: 10/12/18 22:36 Status ED Status: With Doctor
--- NOTE | 2018-10-12 18:50 | XR ---
EXAM DATE: 10/12/2018 6:46 PM EST AGE/SEX: 68 years / Male INDICATIONS: Evaluate for pneumonia, pneumothorax, or communicable disease. CLINICAL DATA: This is the patient's initial encounter. Patient reports that signs and symptoms have been present for 1 day and indicates a pain score of 1/10. MEDICAL/SURGICAL HISTORY: None. . SUPRA PUBIC CATHETER COMPARISON: HPO, CHEST 1V SINGLE AP, 08/28/2018. . FINDINGS: PA and lateral views of the chest demonstrate the lungs to be symmetrically aerated without evidence of mass, infiltrate or effusion. The cardiomediastinal contours are unremarkable. Osseous structures are intact. CONCLUSION: No acute cardiopulmonary process. Electronically signed by: Frank Quinones MD 10/12/2018 6:48 PM EST
[2018-10-12 19:52] LABS: Baso # (Auto) 0.1 th/mm3 (0.0-0.2); Baso % (Auto) 0.7 % (0.0-2.0); Eos # (Auto) 0.1 th/mm3 (0.0-0.4); Eos % (Auto) 0.9 % (0.0-4.0); Hematocrit 39.4 % (39.0-51.0); Hemoglobin 13.1 gm/dL (13.0-17.0); Lymph # (Auto) 1.9 th/mm3 (1.0-4.8); Lymph % (Auto) 17.2 % (9.0-44.0); Mean Corpuscular HGB Conc 33.1 % (32.0-36.0); Mean Corpuscular Hemoglobin 29.4 pg (27.0-34.0); Mean Corpuscular Volume 88.8 fL (80.0-100.0); Mean Platelet Volume 8.6 fL (7.0-11.0); Mono # (Auto) 0.6 th/mm3 (0.0-0.9); Mono % (Auto) 5.8 % (0.0-8.0); Neut # (Auto) 8.3 th/mm3 (1.8-7.7); Neut % (Auto) 75.4 % (16.0-70.0); Platelet Count 209 th/mm3 (150-450); Red Blood Count 4.44 mil/mm3 (4.50-5.90); Red Cell Distribution Width 16.5 % (11.6-17.2); White Blood Count 11.1 th/mm3 (4.0-11.0)
[2018-10-12 20:03] LABS: Bacteria,Urine Moderate /hpf; Bilirubin,Urine Negative (Negative); Clarity,Urine Cloudy (Clear); Color,Urine Yellow (Yellw/Straw); Glucose,Urine (UA) Negative (Negative); Leukocyte Esterase,Urine Large (Negative); Mucus,Urine Few /lpf (Occasional); Nitrite,Urine Positive (Negative); Specific Gravity,Urine 1.018 (1.002-1.035)
[2018-10-12 20:05] LABS: Albumin 3.2 g/dL (3.4-5.0); Anion Gap 5 meq/L (5-15); Aspartate Aminotransferase 19 U/L (15-37); Blood Urea Nitrogen 21 mg/dL (7-18); Calcium 8.6 mg/dL (8.5-10.1); Carbon Dioxide 32.2 meq/L (21.0-32.0); Chloride 103 meq/L (98-107); Glomerular Filtration Rate 88 mL/min (>89); Glucose,Random 153 mg/dL (74-106); Magnesium 1.7 mg/dL (1.5-2.5); Potassium 3.9 meq/L (3.5-5.1); Sodium 140 meq/L (136-145)
[2018-10-12 20:10] LABS: Alanine Aminotransferase 14 U/L (12-78); Alkaline Phosphatase 71 U/L (45-117)
[2018-10-13] MEDS: Ferrous Sulfate 325 MG Tablet PO SCH ×2 (12:38→18:32)
[2018-10-13] MEDS ORDERED: Dextrose 50% in Water 50 ML Vial IV.PUSH PRN (21:55)
[2018-10-13] MEDS ORDERED: Bisacodyl 10 MG Supp RECTAL PRN (21:55)
[2018-10-13] MEDS ORDERED: Vancomycin Consult Pharmacy OTHER PRN (21:57)
[2018-10-13] MEDS ORDERED: Vancomycin Inj 1,000 MG in Sodium Chlor 0.9% Inj 250 ML IV.SIG ONE (21:57)
--- NOTE | 2018-10-13 22:16 | P.HP ---
History of Present Illness Service: [facility] Primary Care Physician: No Primary Care Physician History of Present Illness: 68-year-old male with a past medical history significant for diabetes mellitus and recent hospitalization for severe sepsis presents to the emergency room after his home health nurse called EMS because she was concerned that the patient was unable to care for himself. ED documentation states that the patient was unable to walk secondary to weakness and sat on his porch for 4 days until he was brought to the emergency room. He has not taken any medications since his discharge as he has been unable to fill it secondary to insurance issues. The patient adamantly denies that this was the case and states he was able to ambulate with the assistance of his nephew who lives with him. He states that his home health nurse was lying. The patient was covered in feces and dirt on his arrival to the emergency department. During his previous hospitalization, the patient underwent excision/biopsy of wound of the left ankle and ostectomy of the left lateral medial list performed by podiatry. 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 On , patient underwent cystogram, flexible cystoscopy, antegrade urethrogram, placement of suprapubic tube catheter, irrigation and packing of left inguinal wound. The wound of the left groin was then treated with serial washout and debridements of the left inguinal abscess and wound VAC changes. He grew blood cultures for Corynebacterium and was seen in consultation by infectious disease who felt this was most likely contamination. The patient was treated with Zosyn and fluconazole. He improved clinically and was discharged home with home health care and home PT. Rehab was recommended however the patient refused. On further evaluation, the patient has a left groin wound that is open and draining a foul-smelling purulent liquid. He reports his wound VAC was taken off by EMS prior to him being brought to the emergency department. The patient is an extremely poor historian. Inpatient Certification: I certify that the inpatient services were ordered in accordance with Medicare regulations governing the order. This includes certification that hospital inpatient services are reasonable and necessary and in the case of services not specified as inpatient-only under 42 CFR 419.22(n), that they are appropriately provided as inpatient services in accordance to with the 2-midnight benchmark under 43 CFR 412.3(e) Estimated Total Length of Stay (Days): 3 Plans for Post Hospital Care: Not yet determined Review of Systems Denies fever or chills Denies blurry vision, otorrhea, rhinorrhea Denies sore throat and cough No chest pain, palpitations No shortness of breath or wheezing No abdominal pain Denies constipation/diarrhea/nausea/vomiting Denies muscle pain Positive generalized weakness No rashes PMFSH - History History 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, 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 - Medical History Medical History: Medical History (Last Updated 10/13/18 @ 22:10 by Nelly Robertson MD) Diabetes mellitus Suprapubic catheter Urethral fistula - Surgical History Surgical History: Surgical History (Last Updated 10/13/18 @ 22:10 by Nelly Robertson MD) History of partial colectomy Status post incision and drainage - Family History Family History: Family History (Last Updated 10/13/18 @ 22:10 by Nelly Robertson MD) Other Diabetes mellitus - Tobacco History Second Hand Smoke Exposure: No Smoking Status: Unknown if ever smoked - Alcohol History How Often Do You Have a Drink Containing Alcohol: Unable to Obtain - Substance Use History Substance History: No History of Abuse - Travel History Recent Travel in the [facility] Within the Last 8 Weeks: No Recent Travel Out of the Country Within the Last 8 Weeks: No - Immunization History Tetanus Immunization: <5 Years Medications and Allergies Active Medications: Active Medications Ferrous Sulfate (Ferosul) 325 mg PO BID@1200,1700 [facility] Last Admin: 10/13/18 18:32 Dose: 325 mg Insulin Human Isoph/Insulin Regular (Novolin 70/30 Inj) 12 units SQ BID@0800, 1700 [facility] Last Admin: 10/13/18 08:33 Dose: 12 units Metformin HCl (Glucophage) 1,000 mg PO BIDPC [facility] Last Admin: 10/13/18 18:32 Dose: 1,000 mg Sodium Chloride (Ns Flush) 2 ml IV.FLUSH PRN PRN PRN Reason: FLUSH AFTER USING IV ACCESS Allergies Allergy/AdvReac Type Severity Reaction Status Date / Time Influenza Virus Vaccines Allergy Severe Anaphylaxis Verified 08/28/18 12:12 *MDRO Multi-Drug Resistant AdvReac Unknown Flushing Uncoded 08/28/18 12:12 Organism Exam Vital signs: Vital Signs 10/12/18 22:36 10/13/18 03:03 10/13/18 09:44 Temperature 98.2 F Pulse Rate 64 69 64 Respiratory Rate 16 16 12 Blood Pressure 98/57 L 120/58 L 130/62 Pulse Oximetry 98 99 99 10/13/18 12:40 10/13/18 18:26 10/13/18 21:53 Temperature 97.9 F 97.8 F Pulse Rate 66 74 81 Respiratory Rate 16 18 Blood Pressure 118/63 146/68 H 126/70 Pulse Oximetry 99 99 99 Intake & Output 10/13/18 10/13/18 10/14/18 06:59 18:59 06:59 Intake Total 1100 / 1100 Balance 1100 / 1100 Intake: IV 1100 / 1100 NS Inj 1,000 ML @ 1000 mls/hr 1000 / 1000 IV.SIG BOLUS SHREYAS Rx#:[id number] Rocephin Inj 1,000 MG In NS Inj 100 / 100 100 ML @ 200 mls/hr IV.SIG ONCE ONE Rx#:[id number] Narrative: Gen.: No acute distress Head: Normocephalic. Atraumatic. EENT: Pupils equal round and reactive to light. Nose without drainage. Airway intact. Throat without injection. Cardiovascular: Regular rate and rhythm. No murmurs, rubs or gallops. Respiratory: Lungs clear to auscultation bilaterally. No wheezes or rhonchi. Abdomen: Soft, nontender, nondistended. No peritoneal signs. Musculoskeletal: No gross deformities. No edema. Skin: Left groin wound with aneta present, open and draining foul-smelling purulent material Neuro: Sensory and motor grossly intact. Cranial nerves II through XII grossly intact. Results - Labs CBC & Chem 7: 10/12/18 18:00 10/12/18 18:00 Labs: Laboratory Results - last 24 hr 10/12/18 19:25 Urine Color Yellow Urine Clarity Cloudy H Urine pH 5.0 Ur Specific Brilliant 1.018 Urine Protein 100 H Urine Glucose (UA) Negative Urine Ketones Negative Urine Occult Blood Small H Urine Nitrate Positive H Urine Bilirubin Negative Urine Urobilinogen Less than 2 Ur Leukocyte Esterase Large H Urine RBC 7 H Urine WBC Urine WBC Clumps Many H Urine Bacteria Moderate H Urine Mucus Few H Micro UA Comment Culture indicated Urine Culture Comments Culture indicated Caprini VTE Risk Assessment Caprini VTE Risk Assessment: Moderate/High Risk (score >= 2) Caprini Risk Assessment Model: Point Value = 1 Point Value = 2 Point Value = 3 Point Value = 5 Age 41-60 Minor surgery BMI > 25 kg/m2 Swollen legs Varicose veins or History of unexplained or recurrent spontaneous Oral contraceptives or hormone replacement Sepsis (< 1 month) Serious lung disease, including pneumonia (< 1 month) Abnormal pulmonary function Acute myocardial infarction Congestive heart failure (< 1 month) History of inflammatory bowel disease Medical patient at bed rest Age 61-74 Arthroscopic surgery Major open surgery (> 45 min) Laparoscopic surgery (> 45 min) Malignancy Confined to bed (> 72 hours) Immobilizing plaster cast Central venous access Age >= 75 History of VTE Family history of VTE Factor V Leiden Prothrombin [id number] Lupus anticoagulant Anticardiolipin antibodies Elevated serum homocysteine Heparin-induced thrombocytopenia Other congenital or acquired thrombophilia Stroke (< 1 month) Elective arthroplasty Hip, pelvis, or leg fracture Acute spinal cord injury (< 1 month) Prophylaxis Regimen: Total Risk Factor Score Risk Level Prophylaxis Regimen 0-1 Low Early ambulation 2 Moderate Order ONE of the following: *Sequential Compression Device (SCD) *Heparin 5000 units SQ BID 3-4 Higher Order ONE of the following medications: *Heparin 5000 units SQ TID *Enoxaparin/Lovenox 40 mg SQ daily (WT < 150 kg, CrCl > 30 mL/min) *Enoxaparin/Lovenox 30 mg SQ daily (WT < 150 kg, CrCl > 10-29 mL/min) *Enoxaparin/Lovenox 30 mg SQ BID (WT < 150 kg, CrCl > 30 mL/min) AND/OR *Sequential Compression Device (SCD) 5 or more Highest Order ONE of the following medications: *Heparin 5000 units SQ TID (Preferred with Epidurals) *Enoxaparin/Lovenox 40 mg SQ daily (WT < 150 kg, CrCl > 30 mL/min) *Enoxaparin/Lovenox 30 mg SQ daily (WT < 150 kg, CrCl > 10-29 mL/min) *Enoxaparin/Lovenox 30 mg SQ BID (WT < 150 kg, CrCl > 30 mL/min) AND *Sequential Compression Device (SCD) Assessment and Plan - Plan Assessment/plan: 1. urethral cutaneous fistula/persistent left inguinal wound Status post suprapubic catheter placement and multiple washouts and wound VAC placement of left groin Left inguinal wound draining purulent material, concern for active infection Vancomycin/Zosyn after wound and blood cultures collected Urology consulted, appreciate assistance Wound care consulted Consider infectious disease consult once cultures have resulted 2. Urinary tract infection Urine culture positive for gram-negative rods Antibiotics as above 3. Diabetes mellitus Sliding scale insulin Monitor blood glucose 4. Physical deconditioning Patient unable to care for himself at home Case management consulted to assist with discharge planning PT FEN N.p.o. Electrolytes: Monitor and replete as needed NS at 100 cc/hour Holding pharmacologic anticoagulation as patient may require debridement
[2018-10-13] MEDS: Piperacil/Tazo 3.375 GM Premix 50 ML IV.SIG SCH (23:06)
[2018-10-13] MEDS: Sod Chloride 0.9% Inj 1,000 ML IV.CONT SCH (23:06)
[2018-10-13] MEDS: Insulin NovoLOG Aspart Correctional Sugar Inj SQ SCH (23:07)
[2018-10-14] MEDS: Vancomycin Inj 1,500 MG in Sodium Chlor 0.9% Inj 500 ML IV.SIG SCH ×2 (00:52→11:18)
[2018-10-14] MEDS: Insulin NovoLOG Aspart Correctional Sugar Inj SQ SCH ×4 (05:07→17:18)
[2018-10-14] MEDS: Piperacil/Tazo 3.375 GM Premix 50 ML IV.SIG SCH ×3 (05:21→15:11)
[2018-10-14 07:55] LABS: Baso % (Auto) 0.6 % (0.0-2.0); Eos # (Auto) 0.2 th/mm3 (0.0-0.4); Eos % (Auto) 2.7 % (0.0-4.0); Hematocrit 34.9 % (39.0-51.0); Hemoglobin 11.5 gm/dL (13.0-17.0); Lymph # (Auto) 2.2 th/mm3 (1.0-4.8); Lymph % (Auto) 29.6 % (9.0-44.0); Mean Corpuscular Hemoglobin 30.1 pg (27.0-34.0); Mean Corpuscular Volume 91.4 fL (80.0-100.0); Mean Platelet Volume 8.4 fL (7.0-11.0); Mono # (Auto) 0.4 th/mm3 (0.0-0.9); Mono % (Auto) 5.9 % (0.0-8.0); Neut # (Auto) 4.5 th/mm3 (1.8-7.7); Neut % (Auto) 61.2 % (16.0-70.0); Platelet Count 152 th/mm3 (150-450); Red Blood Count 3.82 mil/mm3 (4.50-5.90); Red Cell Distribution Width 16.9 % (11.6-17.2); White Blood Count 7.3 th/mm3 (4.0-11.0)
[2018-10-14 07:59] LABS: INR 1.2 Ratio; Prothrombin Time 11.8 sec (9.8-11.6)
[2018-10-14] MEDS: Senna/Docusate Sodium 8.6/50 MG Tablet PO SCH (08:31)
[2018-10-14] MEDS: Sod Chloride 0.9% Inj 1,000 ML IV.CONT SCH ×2 (08:32→17:18)
[2018-10-14 08:33] LABS: Anion Gap 7 meq/L (5-15); Blood Urea Nitrogen 19 mg/dL (7-18); Calcium 8.2 mg/dL (8.5-10.1); Carbon Dioxide 25.4 meq/L (21.0-32.0); Chloride 111 meq/L (98-107); Glomerular Filtration Rate Greater Than 89 mL/min (>89); Glucose,Random 133 mg/dL (74-106); Sodium 143 meq/L (136-145)
[2018-10-14] MEDS: Ferrous Sulfate 325 MG Tablet PO SCH ×2 (11:18→17:18)
--- NOTE | 2018-10-14 11:35 | P.PNIM ---
Subjective Interval history: Follow-up visit DM, sepsis UTI catheter related, ureteral cutaneous fistula, persistent left inguinal wound, suprapubic catheter. Patient seen and examined today. States he is doing okay. States he has no complaints. Denies pain and discomfort. Denies SOB/ dyspnea. Denies chest pain, palpitations, headaches, dizziness. Denies fevers, chills, n/v/d. Denies dysuria. Physical Exam Vital signs: Vital Signs 10/13/18 12:40 10/13/18 18:26 10/13/18 21:53 Temperature 97.9 F 97.8 F Pulse Rate 66 74 81 Respiratory Rate 16 18 Blood Pressure 118/63 146/68 H 126/70 Pulse Oximetry 99 99 99 10/14/18 00:00 10/14/18 01:22 10/14/18 04:00 Temperature 97.9 F 97.9 F Pulse Rate 68 65 60 Respiratory Rate 20 20 Blood Pressure 97/56 L 115/57 L 105/55 L Pulse Oximetry 98 98 10/14/18 07:00 10/14/18 07:51 Temperature 98.1 F Pulse Rate 60 Respiratory Rate 12 20 Blood Pressure 113/56 L Pulse Oximetry 99 Intake & Output 10/13/18 10/14/18 10/14/18 18:59 06:59 18:59 Intake Total 615 / 615 1050 / 1050 Output Total 975 / 975 Balance -360 / -360 1050 / 1050 Weight 86.3 kg Intake: IV 615 / 615 1050 / 1050 NS Inj 1,000 ML @ 100 mls/hr IV 1000 / 1000 .CONT .Q10H SHREYAS Rx#:[id number] Zosyn 3.375 GM Premix 50 ML @ 100 / 100 50 / 50 100 mls/hr IV.SIG Q6H SHREYAS Rx#: [id number] Vancomycin Inj 1,500 MG In NS 515 / 515 Inj 500 ML @ 250 mls/hr IV.SIG Q12H SHREYAS Rx#:[id number] Output: Urine 975 / 975 Other: Weight On Admission 85.4 kg Narrative: Gen.: Thin appearing elderly male. No acute distress Head: Normocephalic. Atraumatic. EENT: Pupils equal round and reactive to light. Nose without drainage. Airway intact. Throat without injection. Cardiovascular: Regular rate and rhythm. No murmurs, rubs or gallops. Respiratory: Lungs clear to auscultation bilaterally. No wheezes or rhonchi. Abdomen: Soft, nontender, nondistended. No peritoneal signs. Musculoskeletal: No gross deformities. No edema. Skin: Left groin wound with aneta present, open and draining foul-smelling purulent material, aneta in place -dehiscence Neuro: Sensory and motor grossly intact. Cranial nerves II through XII grossly intact. Results - Labs CBC & Chem 7: 10/14/18 07:16 10/14/18 07:16 Laboratory Results - last 24 hr 10/13/18 10/13/18 10/14/18 22:35 22:59 02:30 WBC RBC Hgb Hct MCV MCH MCHC RDW Plt Count MPV Neut % (Auto) Lymph % (Auto) Rankin % (Auto) Eos % (Auto) Baso % (Auto) Neut # (Auto) Lymph # (Auto) Rankin # (Auto) Eos # (Auto) Baso # (Auto) WBC Differential Differential Comment PT INR APTT 26.9 Sodium Potassium Chloride Carbon Dioxide Anion Gap BUN Creatinine Estimated GFR POC Glucose 178 H Random Glucose Lactic Acid 1.4 Calcium 10/14/18 10/14/18 10/14/18 02:48 07:16 07:16 WBC 7.3 RBC 3.82 L Hgb 11.5 L Hct 34.9 L MCV 91.4 MCH 30.1 MCHC 33.0 RDW 16.9 Plt Count 152 MPV 8.4 Neut % (Auto) 61.2 Lymph % (Auto) 29.6 Rankin % (Auto) 5.9 Eos % (Auto) 2.7 Baso % (Auto) 0.6 Neut # (Auto) 4.5 Lymph # (Auto) 2.2 Rankin # (Auto) 0.4 Eos # (Auto) 0.2 Baso # (Auto) 0.0 WBC Differential . Differential Comment Auto diff final PT 11.8 H INR 1.2 APTT Sodium Potassium Chloride Carbon Dioxide Anion Gap BUN Creatinine Estimated GFR POC Glucose 119 H Random Glucose Lactic Acid Calcium 10/14/18 10/14/18 10/14/18 07:16 07:52 11:12 WBC RBC Hgb Hct MCV MCH MCHC RDW Plt Count MPV Neut % (Auto) Lymph % (Auto) Rankin % (Auto) Eos % (Auto) Baso % (Auto) Neut # (Auto) Lymph # (Auto) Rankin # (Auto) Eos # (Auto) Baso # (Auto) WBC Differential Differential Comment PT INR APTT Sodium 143 Potassium 4.0 Chloride 111 H D Carbon Dioxide 25.4 Anion Gap 7 BUN 19 H Creatinine 0.78 Estimated GFR Greater than 89 POC Glucose 122 H 130 H Random Glucose 133 H Lactic Acid Calcium 8.2 L Microbiology 10/13/18 22:35 Blood - Peripheral Aerobic Blood Culture - Preliminary No growth in 1 day 10/13/18 22:35 Blood - Peripheral Anaerobic Blood Culture - Preliminary No growth in 1 day 10/13/18 22:40 Blood - Peripheral Aerobic Blood Culture - Preliminary No growth in 1 day 10/13/18 22:40 Blood - Peripheral Anaerobic Blood Culture - Preliminary No growth in 1 day 10/12/18 19:25 Clean Catch Urine Urine Culture - Final Klebsiella pneumoniae ESBL pos 10/13/18 22:45 Wound - Groin Gram Stain - Final Assessment and Plan - Plan 68-year-old male with a past medical history significant for diabetes mellitus and recent hospitalization for severe sepsis presents to the emergency room after his home health nurse called EMS because she was concerned that the patient was unable to care for himself. Urethral cutaneous fistula/persistent left inguinal wound Status post suprapubic catheter placement and multiple washouts and wound VAC placement of left groin Left inguinal wound draining purulent material, concern for active infection -Previously had irrigation and washout multiple times, wound was closed with aneta up to the area of the groin and scrotal junction small sponge on top of the left hemiscrotum with VAC placement, VAC was removed when EMS got the patient -Vancomycin/Zosyn after wound and blood cultures collected, pending results -Urology consulted, appreciate assistance -Wound care consulted, recommends dry abdominal pad, aneta are still in place urology needs to possibly take out the aneta, wound VAC not recommended at this time -Consider infectious disease consult once cultures have resulted Urinary tract infection, catheter related infection Suprapubic cath in place -Urine culture positive for gram-negative rods -Cultures came back, Klebsiella pneumonia ESBL positive, sensitive to Zosyn -Infectious disease consulted. Apparently patient has been seen by Dr. Coppola prior Diabetes mellitus -Sliding scale insulin, continue home regimen -Monitor blood glucose -Diabetic diet Physical deconditioning -Patient unable to care for himself at home -Case management consulted to assist with discharge planning, possible SNF Left lateral foot ankle ulceration -Previous excision/biopsy of wound with skin plasty left lateral ankle, ostectomy left lateral malleolus on 09/13, no signs of infx -Dr. Christiansen followed prior, may reconsult if needed -Weight bearing as tolerated to the left LE Anemia, iron deficient -Continue ferrous sulfate -H&H to DVT prop SCDs Code Status: Full Code Discussed Condition With: Patient, nursing, Wound care nurse, Dr. Guillen Discharge Planning: Plan to DC home when clinically improved. Possibly sniffed placement as patient is unable to take care of himself
--- NOTE | 2018-10-14 12:45 | P.PNWCN ---
Wound Care Nurse Consult Description: Received wound management consult from Doctor Robertson for Groin area. Communicated with: DALY Duarte [address] north and call placed to Doctor Recommendation: 1.Please continue with covering groin wound with ABd pad, changing as needed for saturation or dislodgement and consult urology 2. Patient has ~[address] to groin wound, placed by urology after washout surgery. Incision - Incision Left Groin Incision Type: Incision Incision Description: Aneta (~10 aneta) Incision Bed Appearance: [place] Surrounding Tissue Appearance: Erythema Surrounding Tissue Temperature: Cool Drainage Description: Serosanguinous Drainage Amount: Scant Drainage Odor: No Odor Incision Dressing Status: Changed Incision Cleaning Solution: Saline Other Cover Dressing: ABd pad Incision Dressing Change Date: 10/14/18 - Additional Information Patient seen for wound management of L groin wound. Patient is sitting in recliner with BLE elevated. Removed ABD pad in place covering L groin to reveal wound in L groin crease with ~[address], and some pink tissue visible in wound bed. Wound is not entirely visible due to patient's position and tolerance. Wound was cleansed with normal saline and ABD pad applied to groin crease. Patient tolerated well. Urology consult is recommended
--- NOTE | 2018-10-14 14:37 | P.CONURO ---
History of Present Illness Service: urology Consult date: 10/14/18 Reason for Consult: groin wound Primary Care Provider: No Primary Care Physician History of Present Illness: 68y.o M s/p procedures below done by dr Cassidy 09/03 - Cystogram, flexible cystoscopy, antegrade urethrogram, placement of suprapubic tube catheter, irrigation and packing of left inguinal wound 09/10/18 washout and debridement of left inguinal abscess with placement of wound VAC followed by serial serial washouts, debridement and wound VAC exchange - 09/10, 09/13, 09/15, 09/18, 09/21, 09/23, 09/25, 09/28, 09/3010/02/18 -washout, debridement, partial wound closure and application of wound VAC He is back to [place] due to his groin wound aneta partially displaced and wound is more open now. Wound care team consulted too. Review of Systems All other systems reviewed negative except as stated in HPI PMFSH - History History 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, Medical Record - Medical History Medical History: Medical History (Last Reviewed 10/14/18 @ 11:00 by Bella Krause) Diabetes mellitus Suprapubic catheter Urethral fistula - Surgical History Surgical History: Surgical History (Last Reviewed 10/14/18 @ 11:00 by Bella Krause) History of partial colectomy Status post incision and drainage - Family History Family History: Family History (Last Reviewed 10/14/18 @ 11:01 by Bella Krause) Other Diabetes mellitus - Tobacco History Second Hand Smoke Exposure: No Tobacco Use In Past 30 Days: No Smoking Status: Never smoker - Alcohol History How Often Do You Have a Drink Containing Alcohol: Never - Substance Use History Substance History: No History of Abuse - Travel History Recent Travel in the [facility] Within the Last 8 Weeks: No Recent Travel Out of the Country Within the Last 8 Weeks: No - Immunization History Tetanus Immunization: <5 Years Hx Influenza Vaccine This Season: No Medications and Allergies Active Medications: Active Medications Acetaminophen (Tylenol) 650 mg PO Q4H PRN PRN Reason: Temp > 100.4 Al Hydroxide/Mg Hydroxide (Milk Of Magnesia Liq) 30 ml PO Q12H PRN PRN Reason: Mild Constipation Bisacodyl (Dulcolax Supp) 10 mg RECTAL DAILY PRN PRN Reason: SEVERE CONSITIPATION Dextrose (D50w Vial) 50 ml IV.PUSH UNSCH PRN PRN Reason: PER HYPOGLYCEMIA PROTOCOL Ferrous Sulfate (Ferosul) 325 mg PO BID@1200,1700 [facility] Last Admin: 10/14/18 11:18 Dose: 325 mg Glucagon (Glucagon Inj) 1 mg OTHER PRN PRN PRN Reason: for Hypoglycemia Protocol Sodium Chloride (Ns Inj) 1,000 mls @ 100 mls/hr IV.CONT .Q10H [facility] Last Admin: 10/14/18 08:32 Dose: 100 mls/hr Piperacillin/Tazobactam/Dextrose (Zosyn 3.375 Gm Premix) 50 mls @ 100 mls/hr IV.SIG Q6H [facility] Last Infusion: 10/14/18 10:00 Dose: Infused Vancomycin HCl 1,500 mg/ (Sodium Chloride) 515 mls @ 250 mls/hr IV.SIG Q12H [facility] Last Infusion: 10/14/18 13:19 Dose: Infused Insulin Aspart (Novolog Insulin Correctional Sugar Inj) 0 unit SQ ACHS AND 3AM [facility]; Protocol Last Admin: 10/14/18 11:18 Dose: Not Given Insulin Human Isoph/Insulin Regular (Novolin 70/30 Inj) 12 units SQ BID@0800, 1700 [facility] Last Admin: 10/14/18 08:31 Dose: Not Given Lactulose (Lactulose Liq) 30 ml PO DAILY PRN PRN Reason: SEVERE CONSITIPATION Metformin HCl (Glucophage) 1,000 mg PO BIDPC [facility] Last Admin: 10/14/18 08:33 Dose: Not Given Miscellaneous Information [place] [place] Info[place] 0 each OTHER ONCE ONE Stop: 10/15/18 10:46 Ondansetron HCl (Zofran Inj) 4 mg IV.PUSH Q6H PRN PRN Reason: NAUSEA OR VOMITING Pharmacy Profile Note (Vancomycin Consult Pharmacy) 1 each OTHER UNSCH PRN PRN Reason: Pharmacy to dose Senna/Docusate Sodium (Diane-Colace) 1 tab PO BID [facility] Last Admin: 10/14/18 08:31 Dose: Not Given Sennosides (Senokot) 17.2 mg PO Q12H PRN PRN Reason: Moderate Constipation Sodium Chloride (Ns Flush) 2 ml IV.FLUSH PRN PRN PRN Reason: FLUSH AFTER USING IV ACCESS Allergies Allergy/AdvReac Type Severity Reaction Status Date / Time Influenza Virus Vaccines Allergy Severe Anaphylaxis Verified 08/28/18 12:12 *MDRO Multi-Drug Resistant AdvReac Unknown Flushing Uncoded 08/28/18 12:12 Organism Physical Exam Vital Signs - 24 hr 10/13/18 18:26 10/13/18 21:53 10/14/18 00:00 Temperature 97.8 F 97.9 F Pulse Rate 74 81 68 Respiratory Rate 18 20 Blood Pressure 146/68 H 126/70 97/56 L Pulse Oximetry 99 99 98 10/14/18 01:22 10/14/18 04:00 10/14/18 07:00 Temperature 97.9 F Pulse Rate 65 60 Respiratory Rate 20 12 Blood Pressure 115/57 L 105/55 L Pulse Oximetry 98 10/14/18 07:51 10/14/18 12:00 Temperature 98.1 F 97.9 F Pulse Rate 60 69 Respiratory Rate 20 20 Blood Pressure 113/56 L 117/62 Pulse Oximetry 99 100 Physical Exam: GENERAL: This is a well-nourished, well-developed patient, in no apparent distress. ENT: Nose without bleeding, purulent drainage or septal hematoma. Throat without erythema, tonsillar hypertrophy or exudate. Uvula midline. Airway patent. CARDIOVASCULAR: Regular rate and rhythm without murmurs, gallops, or rubs. GENITOURINARY: SPT is in place draining well. Groin wound dehiscence. no drainage noted NEUROLOGICAL: Awake and alert. Laboratory Results - last 24 hr 10/13/18 10/13/18 10/14/18 22:35 22:59 02:30 WBC RBC Hgb Hct MCV MCH MCHC RDW Plt Count MPV Neut % (Auto) Lymph % (Auto) Dillon % (Auto) Eos % (Auto) Baso % (Auto) Neut # (Auto) Lymph # (Auto) Dillon # (Auto) Eos # (Auto) Baso # (Auto) WBC Differential Differential Comment PT INR APTT 26.9 Sodium Potassium Chloride Carbon Dioxide Anion Gap BUN Creatinine Estimated GFR POC Glucose 178 H Random Glucose Lactic Acid 1.4 Calcium 10/14/18 10/14/18 10/14/18 02:48 07:16 07:16 WBC 7.3 RBC 3.82 L Hgb 11.5 L Hct 34.9 L MCV 91.4 MCH 30.1 MCHC 33.0 RDW 16.9 Plt Count 152 MPV 8.4 Neut % (Auto) 61.2 Lymph % (Auto) 29.6 Dillon % (Auto) 5.9 Eos % (Auto) 2.7 Baso % (Auto) 0.6 Neut # (Auto) 4.5 Lymph # (Auto) 2.2 Dillon # (Auto) 0.4 Eos # (Auto) 0.2 Baso # (Auto) 0.0 WBC Differential . Differential Comment Auto diff final PT 11.8 H INR 1.2 APTT Sodium Potassium Chloride Carbon Dioxide Anion Gap BUN Creatinine Estimated GFR POC Glucose 119 H Random Glucose Lactic Acid Calcium 10/14/18 10/14/18 10/14/18 07:16 07:52 11:12 WBC RBC Hgb Hct MCV MCH MCHC RDW Plt Count MPV Neut % (Auto) Lymph % (Auto) Dillon % (Auto) Eos % (Auto) Baso % (Auto) Neut # (Auto) Lymph # (Auto) Dillon # (Auto) Eos # (Auto) Baso # (Auto) WBC Differential Differential Comment PT INR APTT Sodium 143 Potassium 4.0 Chloride 111 H D Carbon Dioxide 25.4 Anion Gap 7 BUN 19 H Creatinine 0.78 Estimated GFR Greater than 89 POC Glucose 122 H 130 H Random Glucose 133 H Lactic Acid Calcium 8.2 L Microbiology 10/13/18 22:35 Aerobic Blood Culture - Preliminary Blood - Peripheral No growth in 1 day Anaerobic Blood Culture - Preliminary No growth in 1 day 10/13/18 22:40 Aerobic Blood Culture - Preliminary Blood - Peripheral No growth in 1 day Anaerobic Blood Culture - Preliminary No growth in 1 day 10/12/18 19:25 Urine Culture - Final Clean Catch Urine Klebsiella pneumoniae ESBL pos 10/13/18 22:45 Gram Stain - Final Wound - Groin Result Diagrams: 10/14/18 07:16 10/14/18 07:16 Imaging: ITS Impressions Chest X-Ray 10/12/18 17:29 CONCLUSION: No acute cardiopulmonary process. Assessment and Plan - Plan 68y.o m with history as per HPI - No acute intervention - Keep SPT - Consult ID to help with management - wound management as per Wound care teat Remove displaced aneta - Daily dressing change, can apply antbx ointment - Contac Dr Cassidy for further management Discussed Condition With: Dr Javier SERRATO attending
--- NOTE | 2018-10-14 15:26 | P.CONPSY ---
Provisional Diagnosis Admission Date: October 13, 2018 19:43 [place] I.: Psychological factors affecting a medical condition History of Present Illness Service: Medicine Primary Care Provider: No Primary Care Physician History of Present Illness: The patient is a 68-year-old man, domiciled in [place] with a nephew, single, father of 3 kids, college educated, without no previous psychiatric history, no previous psychiatric hospitalizations, no pre-suicide attempts, he denies the use of illegal drugs or alcohol, with a past medical history significant for diabetes mellitus and recent hospitalization for severe sepsis presents to the emergency room after his home health nurse called EMS because she was concerned that the patient was unable to care for himself. ED documentation states that the patient was unable to walk secondary to weakness and sat on his porch for 4 days until he was brought to the emergency room. He has not taken any medications since his discharge as he has been unable to fill it secondary to insurance issues. The patient adamantly denies that this was the case and states he was able to ambulate with the assistance of his nephew who lives with him. He states that his home health nurse was lying. The patient was covered in feces and dirt on his arrival to the emergency department.During his previous hospitalization, the patient underwent excision/ biopsy of wound of the left ankle and ostectomy of the left lateral medial list performed by podiatry. 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 On 09/03/18, patient underwent cystogram, flexible cystoscopy, antegrade urethrogram, placement of suprapubic tube catheter, irrigation and packing of left inguinal wound. The wound of the left groin was then treated with serial washout and debridements of the left inguinal abscess and wound VAC changes. He grew blood cultures for Corynebacterium and was seen in consultation by infectious disease who felt this was most likely contamination. The patient was treated with Zosyn and fluconazole. He improved clinically and was discharged home with home health care and home PT. Rehab was recommended however the patient refused.On further evaluation, the patient has a left groin wound that is open and draining a foul-smelling purulent liquid. He reports his wound VAC was taken off by EMS prior to him being brought to the emergency department. The patient is an extremely poor historian. Consulted to psychiatry to address his decision-making capacity. On my psychiatric evaluation today the patient is calm, cooperative, pleasant. The patient is fully oriented x3, and he is able to tell me that the reason he is here is because he has been having issues with his colostomy and his catheter. He tells me that he has history of diabetes and also sepsis with multiple medical hospitalizations. The patient reports that he is in his best disposition to follow medical recommendations and directions and take his medications. He denies suicidal and homicidal ideation, he denies visual and auditory hallucinations. During my evaluation there is no attention deficit, no fluctuation of consciousness, no gross cognitive impairment present. [facility] - History History 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, Medical Record - Medical History Medical History: Medical History (Last Reviewed 10/14/18 @ 11:00 by Bella Krause) Diabetes mellitus Suprapubic catheter Urethral fistula - Surgical History Surgical History: Surgical History (Last Reviewed 10/14/18 @ 11:00 by Bella Krause) History of partial colectomy Status post incision and drainage - Family History Family History: Family History (Last Reviewed 10/14/18 @ 11:01 by Bella Krause) Other Diabetes mellitus - Tobacco History Second Hand Smoke Exposure: No Tobacco Use In Past 30 Days: No Smoking Status: Never smoker - Alcohol History How Often Do You Have a Drink Containing Alcohol: Never - Substance Use History Substance History: No History of Abuse - Travel History Recent Travel in the [place] Within the Last 8 Weeks: No Recent Travel Out of the Country Within the Last 8 Weeks: No - Immunization History Tetanus Immunization: <5 Years Hx Influenza Vaccine This Season: No Medications and Allergies Active Medications: Active Medications Acetaminophen (Tylenol) 650 mg PO Q4H PRN PRN Reason: Temp > 100.4 Al Hydroxide/Mg Hydroxide (Milk Of Magnesia Liq) 30 ml PO Q12H PRN PRN Reason: Mild Constipation Bisacodyl (Dulcolax Supp) 10 mg RECTAL DAILY PRN PRN Reason: SEVERE CONSITIPATION Dextrose (D50w Vial) 50 ml IV.PUSH UNSCH PRN PRN Reason: PER HYPOGLYCEMIA PROTOCOL Ferrous Sulfate (Ferosul) 325 mg PO BID@1200,1700 [facility] Last Admin: 10/14/18 11:18 Dose: 325 mg Glucagon (Glucagon Inj) 1 mg OTHER PRN PRN PRN Reason: for Hypoglycemia Protocol Sodium Chloride (Ns Inj) 1,000 mls @ 100 mls/hr IV.CONT .Q10H [facility] Last Admin: 10/14/18 08:32 Dose: 100 mls/hr Piperacillin/Tazobactam/Dextrose (Zosyn 3.375 Gm Premix) 50 mls @ 100 mls/hr IV.SIG Q6H [facility] Last Admin: 10/14/18 15:11 Dose: 100 mls/hr Vancomycin HCl 1,500 mg/ (Sodium Chloride) 515 mls @ 250 mls/hr IV.SIG Q12H [facility] Last Infusion: 10/14/18 13:19 Dose: Infused Insulin Aspart (Novolog Insulin Correctional Sugar Inj) 0 unit SQ ACHS AND 3AM [facility]; Protocol Last Admin: 10/14/18 11:18 Dose: Not Given Insulin Human Isoph/Insulin Regular (Novolin 70/30 Inj) 12 units SQ BID@0800, 1700 [facility] Last Admin: 10/14/18 08:31 Dose: Not Given Lactulose (Lactulose Liq) 30 ml PO DAILY PRN PRN Reason: SEVERE CONSITIPATION Metformin HCl (Glucophage) 1,000 mg PO BIDPC [facility] Last Admin: 10/14/18 08:33 Dose: Not Given Miscellaneous Information [place] [place] Info[place] 0 each OTHER ONCE ONE Stop: 10/15/18 10:46 Ondansetron HCl (Zofran Inj) 4 mg IV.PUSH Q6H PRN PRN Reason: NAUSEA OR VOMITING Pharmacy Profile Note (Vancomycin Consult Pharmacy) 1 each OTHER UNSCH PRN PRN Reason: Pharmacy to dose Senna/Docusate Sodium (Diane-Colace) 1 tab PO BID [facility] Last Admin: 10/14/18 08:31 Dose: Not Given Sennosides (Senokot) 17.2 mg PO Q12H PRN PRN Reason: Moderate Constipation Sodium Chloride (Ns Flush) 2 ml IV.FLUSH PRN PRN PRN Reason: FLUSH AFTER USING IV ACCESS Allergies Allergy/AdvReac Type Severity Reaction Status Date / Time Influenza Virus Vaccines Allergy Severe Anaphylaxis Verified 08/28/18 12:12 *MDRO Multi-Drug Resistant AdvReac Unknown Flushing Uncoded 08/28/18 12:12 Organism Exam Vital signs: Vital Signs 10/13/18 18:26 10/13/18 21:53 10/14/18 00:00 Temperature 97.8 F 97.9 F Pulse Rate 74 81 68 Respiratory Rate 18 20 Blood Pressure 146/68 H 126/70 97/56 L Pulse Oximetry 99 99 98 10/14/18 01:22 10/14/18 04:00 10/14/18 07:00 Temperature 97.9 F Pulse Rate 65 60 Respiratory Rate 20 12 Blood Pressure 115/57 L 105/55 L Pulse Oximetry 98 10/14/18 07:51 10/14/18 12:00 Temperature 98.1 F 97.9 F Pulse Rate 60 69 Respiratory Rate 20 20 Blood Pressure 113/56 L 117/62 Pulse Oximetry 99 100 Intake & Output 10/13/18 10/14/18 10/14/18 18:59 06:59 18:59 Intake Total 615 / 615 1565 / 1565 Output Total 975 / 975 Balance -360 / -360 1565 / 1565 Weight 86.3 kg Intake: IV 615 / 615 1565 / 1565 NS Inj 1,000 ML @ 100 mls/hr IV 1000 / 1000 .CONT .Q10H [facility] Rx#:[id number] Zosyn 3.375 GM Premix 50 ML @ 100 / 100 50 / 50 100 mls/hr IV.SIG Q6H [facility] Rx#: [id number] Vancomycin Inj 1,500 MG In NS 515 / 515 515 / 515 Inj 500 ML @ 250 mls/hr IV.SIG Q12H [facility] Rx#:[id number] Output: Urine 975 / 975 Other: Weight On Admission 85.4 kg Mental Status Examination Appearance: Appropriate Consciousness: Alert Orientation: x4 Motor Activity: Normal gait Speech: Unremarkable Language: Adequate Fund of Knowledge: Adequate Attention and Concentration: Adequate Memory: Unremarkable Mood: Appropriate Affect: Appropriate Thought Process & Associations: Intact Thought Content: Appropriate Hallucination Type: None Delusion Type: None Suicidal Ideation: No Suicidal Plan: No Suicidal Intention: No Homicidal Ideation: No Homicidal Plan: No Homicidal Intention: No Insight: Adequate Judgment: Adequate Assessment and Plan - Assessment (1) Psychological factor affecting physical condition Code(s): F54 - Psychological and behavioral factors associated with disorders or diseases classified elsewhere Status: Acute (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 The patient does not present any acute, concerning or significant evidence of objective or subjective depression, anxiety, clare or psychosis. The patient is fully oriented x3, no attention deficit, no fluctuation of consciousness, future oriented, logical, coherent and relevant. He denies suicidal and homicidal ideation, he denies visual and auditory hallucinations, the patient is able to verbalize a fair understanding of current medical situation, he is in agreement to continue medical recommendations and treatment, expresses his motivation to get better. I do not find any reason to deprived the patient of his capacity to make medical decisions at this moment. Obviously, this is a patient with a elevated risk of delirium and AMS, and his capacity conflict with , but at this moment the patient is at baseline. No admission in psychiatry indicated. No psychotropics indicated. Justification for Continued Inpatient Stay: No admission in psychiatry indicated.
--- NOTE | 2018-10-14 17:25 | P.CONID ---
History of Present Illness Service: ID Consult date: 10/14/18 Requesting Physician: Modesto Strange Reason for Consult: ESBL+ Primary Care Provider: No Primary Care Physician History of Present Illness: "I was sen for abnormal labs" Pt is a poor historian; history obtained from the chart review Pt is known to me 68-year-old male with a history of diabetes mellitus, A. 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) During previous admission underwent multiple procedurese: 09/03 - Cystogram, flexible cystoscopy, antegrade urethrogram, placement of suprapubic tube catheter, irrigation and packing of left inguinal wound 09/10/18 washout and debridement of left inguinal abscess with placement of wound VAC followed by serial serial washouts, debridement and wound VAC exchange - 09/10, 09/13, 09/15, 09/18, 09/21, 09/23, 09/25, 09/28, 09/3010/02/18 -washout, debridement, partial wound closure and application of wound VAC He is back to [place] due to his groin wound aneta partially displaced and wound is more open now. Urinalysis cw UTI Culture + for ESBL E.coli blood clx NGTD Pt was started on zisyn, vancomycin Review of Systems other (very poor historian) PMF - History History 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, Medical Record - Medical History Medical History: Medical History (Last Reviewed 10/14/18 @ 22:50 by Kajal Coppola MD) Diabetes mellitus Suprapubic catheter Urethral fistula - Surgical History Surgical History: Surgical History (Last Reviewed 10/14/18 @ 22:50 by Kajal Coppola MD) History of partial colectomy Status post incision and drainage - Family History Family History: Family History (Last Reviewed 10/14/18 @ 22:50 by Kajal Coppola MD) Other Diabetes mellitus - Social History I have reviewed the patient's Social History: Yes - Tobacco History Second Hand Smoke Exposure: No Tobacco Use In Past 30 Days: No Smoking Status: Never smoker - Alcohol History How Often Do You Have a Drink Containing Alcohol: Never - Substance Use History Substance History: No History of Abuse - Travel History Recent Travel in the [place] Within the Last 8 Weeks: No Recent Travel Out of the Country Within the Last 8 Weeks: No - Immunization History Tetanus Immunization: <5 Years Hx Influenza Vaccine This Season: No Medications and Allergies Active Medications: Active Medications Acetaminophen (Tylenol) 650 mg PO Q4H PRN PRN Reason: Temp > 100.4 Al Hydroxide/Mg Hydroxide (Milk Of Magnesia Liq) 30 ml PO Q12H PRN PRN Reason: Mild Constipation Bisacodyl (Dulcolax Supp) 10 mg RECTAL DAILY PRN PRN Reason: SEVERE CONSITIPATION Dextrose (D50w Vial) 50 ml IV.PUSH UNSCH PRN PRN Reason: PER HYPOGLYCEMIA PROTOCOL Ferrous Sulfate (Ferosul) 325 mg PO BID@1200,1700 [facility] Last Admin: 10/14/18 17:18 Dose: 325 mg Glucagon (Glucagon Inj) 1 mg OTHER PRN PRN PRN Reason: for Hypoglycemia Protocol Sodium Chloride (Ns Inj) 1,000 mls @ 100 mls/hr IV.CONT .Q10H [facility] Last Infusion: 10/14/18 17:18 Dose: Infused Piperacillin/Tazobactam/Dextrose (Zosyn 3.375 Gm Premix) 50 mls @ 100 mls/hr IV.SIG Q6H [facility] Last Infusion: 10/14/18 15:57 Dose: Infused Vancomycin HCl 1,500 mg/ (Sodium Chloride) 515 mls @ 250 mls/hr IV.SIG Q12H [facility] Last Infusion: 10/14/18 13:19 Dose: Infused Insulin Aspart (Novolog Insulin Correctional Sugar Inj) 0 unit SQ ACHS AND 3AM [facility]; Protocol Last Admin: 10/14/18 17:18 Dose: 1 unit Insulin Human Isoph/Insulin Regular (Novolin 70/30 Inj) 12 units SQ BID@0800, 1700 [facility] Last Admin: 10/14/18 17:18 Dose: 12 units Lactulose (Lactulose Liq) 30 ml PO DAILY PRN PRN Reason: SEVERE CONSITIPATION Metformin HCl (Glucophage) 1,000 mg PO BIDPC [facility] Last Admin: 10/14/18 17:18 Dose: 1,000 mg Miscellaneous Information ([facility] Ordered Lab Info) 0 each OTHER ONCE ONE Stop: 10/15/18 10:46 Ondansetron HCl (Zofran Inj) 4 mg IV.PUSH Q6H PRN PRN Reason: NAUSEA OR VOMITING Pharmacy Profile Note (Vancomycin Consult Pharmacy) 1 each OTHER UNSCH PRN PRN Reason: Pharmacy to dose Senna/Docusate Sodium (Diane-Colace) 1 tab PO BID [facility] Last Admin: 10/14/18 08:31 Dose: Not Given Sennosides (Senokot) 17.2 mg PO Q12H PRN PRN Reason: Moderate Constipation Sodium Chloride (Ns Flush) 2 ml IV.FLUSH PRN PRN PRN Reason: FLUSH AFTER USING IV ACCESS Allergies Allergy/AdvReac Type Severity Reaction Status Date / Time Influenza Virus Vaccines Allergy Severe Anaphylaxis Verified 08/28/18 12:12 *MDRO Multi-Drug Resistant AdvReac Unknown Flushing Uncoded 08/28/18 12:12 Organism Exam Vital signs: Vital Signs 10/13/18 18:26 10/13/18 21:53 10/14/18 00:00 Temperature 97.8 F 97.9 F Pulse Rate 74 81 68 Respiratory Rate 18 20 Blood Pressure 146/68 H 126/70 97/56 L Pulse Oximetry 99 99 98 10/14/18 01:22 10/14/18 04:00 10/14/18 07:00 Temperature 97.9 F Pulse Rate 65 60 Respiratory Rate 20 12 Blood Pressure 115/57 L 105/55 L Pulse Oximetry 98 10/14/18 07:51 10/14/18 12:00 10/14/18 16:00 Temperature 98.1 F 97.9 F 97.5 F L Pulse Rate 60 69 62 Respiratory Rate 20 20 20 Blood Pressure 113/56 L 117/62 107/56 L Pulse Oximetry 99 100 100 Intake & Output 10/13/18 10/14/18 10/14/18 18:59 06:59 18:59 Intake Total 615 / 615 2855 / 2855 Output Total 975 / 975 1250 / 1250 Balance -360 / -360 1605 / 1605 Weight 86.3 kg Intake: IV 615 / 615 2615 / 2615 NS Inj 1,000 ML @ 100 mls/hr IV 1999 / 1999 .CONT .Q10H [facility] Rx#:[id number] Zosyn 3.375 GM Premix 50 ML @ 100 / 100 100 / 100 100 mls/hr IV.SIG Q6H [facility] Rx#: [id number] Vancomycin Inj 1,500 MG In NS 515 / 515 515 / 515 Inj 500 ML @ 250 mls/hr IV.SIG Q12H [facility] Rx#:[id number] Oral 240 / 240 Output: Urine 975 / 975 1250 / 1250 Other: Weight On Admission 85.4 kg - Constitutional no acute distress, average body habitus, chronically ill appearing - Routine HEENT Exam Head: Present: normocephalic, atraumatic Eye: Present: EOMI, PERRL ENT: Present: mucous membranes moist, oropharynx clear - Routine Neck Exam Present: supple. Absent: JVD - Routine Respiratory Exam Present: decreased breath sounds, CTA bilaterally. Absent: accessory muscle use - Routine Cardiovascular Exam Present: RRR, S1, S2. Absent: murmur, gallop, rubs - Routine Abdominal Exam Present: soft, normoactive bowel sounds, ostomy (with liwuid stool). Absent: tenderness, distended, organomegaly, mass - Routine Exam Comments: L groin wound open, urine draining - Routine Skin Exam Present: intact, dry, warm. Absent: rash - Routine Neurological Exam Present: alert, oriented X3, CN II-XII intact. Absent: sensory deficit, motor deficit - Routine Psychiatric Exam Present: normal affect, cooperative Results - Labs CBC & Chem 7: 10/14/18 07:16 10/14/18 07:16 Labs: Laboratory Results - last 24 hr 10/13/18 10/13/18 10/14/18 22:35 22:59 02:30 WBC RBC Hgb Hct MCV MCH MCHC RDW Plt Count MPV Neut % (Auto) Lymph % (Auto) Will % (Auto) Eos % (Auto) Baso % (Auto) Neut # (Auto) Lymph # (Auto) Will # (Auto) Eos # (Auto) Baso # (Auto) WBC Differential Differential Comment PT INR APTT 26.9 Sodium Potassium Chloride Carbon Dioxide Anion Gap BUN Creatinine Estimated GFR POC Glucose 178 H Random Glucose Lactic Acid 1.4 Calcium 10/14/18 10/14/18 10/14/18 02:48 07:16 07:16 WBC 7.3 RBC 3.82 L Hgb 11.5 L Hct 34.9 L MCV 91.4 MCH 30.1 MCHC 33.0 RDW 16.9 Plt Count 152 MPV 8.4 Neut % (Auto) 61.2 Lymph % (Auto) 29.6 Will % (Auto) 5.9 Eos % (Auto) 2.7 Baso % (Auto) 0.6 Neut # (Auto) 4.5 Lymph # (Auto) 2.2 Will # (Auto) 0.4 Eos # (Auto) 0.2 Baso # (Auto) 0.0 WBC Differential . Differential Comment Auto diff final PT 11.8 H INR 1.2 APTT Sodium Potassium Chloride Carbon Dioxide Anion Gap BUN Creatinine Estimated GFR POC Glucose 119 H Random Glucose Lactic Acid Calcium 10/14/18 10/14/18 10/14/18 07:16 07:52 11:12 WBC RBC Hgb Hct MCV MCH MCHC RDW Plt Count MPV Neut % (Auto) Lymph % (Auto) Will % (Auto) Eos % (Auto) Baso % (Auto) Neut # (Auto) Lymph # (Auto) Will # (Auto) Eos # (Auto) Baso # (Auto) WBC Differential Differential Comment PT INR APTT Sodium 143 Potassium 4.0 Chloride 111 H D Carbon Dioxide 25.4 Anion Gap 7 BUN 19 H Creatinine 0.78 Estimated GFR Greater than 89 POC Glucose 122 H 130 H Random Glucose 133 H Lactic Acid Calcium 8.2 L - Imaging Chest X-Ray 10/12/18 17:29 CONCLUSION: No acute cardiopulmonary process. Assessment and Plan - Plan Complicated UTI, ESBL+ E.coli Pt with urocutaneous fstula H/o [place] dc zosyn, vanco Ertapenem x 14 days
[2018-10-15] MEDS: Insulin NovoLOG Aspart Correctional Sugar Inj SQ SCH ×5 (00:24→17:12)
[2018-10-15] MEDS: Senna/Docusate Sodium 8.6/50 MG Tablet PO SCH ×2 (00:25→09:23)
[2018-10-15] MEDS: Sod Chloride 0.9% Inj 1,000 ML IV.CONT SCH ×2 (05:32→14:05)
[2018-10-15] MEDS ORDERED: Pharmacy Ordered Lab Info OTHER ONE (10:45)
--- NOTE | 2018-10-15 12:19 | P.PNIM ---
Subjective Interval history: No overnight events, no complaints. Denies any shortness of breath, afebrile. Discussed with nursing Physical Exam Vital signs: Vital Signs 10/14/18 16:00 10/14/18 17:36 10/14/18 20:00 Temperature 97.5 F L 98.0 F Pulse Rate 62 74 Respiratory Rate 20 18 Blood Pressure 107/56 L 120/56 L Pulse Oximetry 100 99 99 10/15/18 00:00 10/15/18 04:00 10/15/18 08:00 Temperature 98.1 F 98.3 F 98.1 F Pulse Rate 61 84 64 Respiratory Rate 18 20 18 Blood Pressure 124/58 L 103/55 L 125/58 L Pulse Oximetry 98 98 98 10/15/18 09:21 Temperature Pulse Rate Respiratory Rate Blood Pressure Pulse Oximetry 99 Intake & Output 10/14/18 10/15/18 10/15/18 18:59 06:59 18:59 Intake Total 2955 / 2955 Output Total 1250 / 1250 3550 / 3550 Balance 1705 / 1705 -3550 / -3550 Weight 87.2 kg Intake: IV 2715 / 2715 NS Inj 1,000 ML @ 100 mls/hr IV 1999 / 1999 .CONT .Q10H [facility] Rx#:[id number] INVanz Inj 1,000 MG In NS Inj 100 / 100 100 ML @ 200 mls/hr IV.SIG Q24H [facility] Rx#:[id number] Zosyn 3.375 GM Premix 50 ML @ 100 / 100 100 mls/hr IV.SIG Q6H [facility] Rx#: [id number] Vancomycin Inj 1,500 MG In NS 515 / 515 Inj 500 ML @ 250 mls/hr IV.SIG Q12H [facility] Rx#:[id number] Oral 240 / 240 Output: Urine 1250 / 1250 3550 / 3550 Narrative: Gen.: Thin appearing elderly male. No acute distress Cardiovascular: Regular rate and rhythm. No murmurs, rubs or gallops. Respiratory: Lungs clear to auscultation bilaterally. No wheezes or rhonchi. Abdomen: Soft, nontender, nondistended. No peritoneal signs. Suprapubic catheter in place. Musculoskeletal: No gross deformities. No edema. Skin: Left groin wound with aneta present, open and draining foul Neuro: Alert awake and oriented x3. Sensory and motor grossly intact. Cranial nerves II through XII grossly intact. Results - Labs CBC & Chem 7: 10/14/18 07:16 10/14/18 07:16 Laboratory Results - last 24 hr 10/15/18 10/15/18 10/15/18 00:24 05:32 07:56 POC Glucose 124 H 135 H 125 H Vancomycin Trough 10/15/18 10:41 POC Glucose Vancomycin Trough 2.6 L Microbiology 10/13/18 22:35 Blood - Peripheral Aerobic Blood Culture - Preliminary No growth in 2 days 10/13/18 22:35 Blood - Peripheral Anaerobic Blood Culture - Preliminary No growth in 2 days 10/13/18 22:40 Blood - Peripheral Aerobic Blood Culture - Preliminary No growth in 2 days 10/13/18 22:40 Blood - Peripheral Anaerobic Blood Culture - Preliminary No growth in 2 days 10/12/18 19:25 Clean Catch Urine Urine Culture - Final Klebsiella pneumoniae ESBL pos 10/13/18 22:45 Wound - Groin Gram Stain - Final Assessment and Plan - Plan 68-year-old male with a past medical history significant for diabetes mellitus and recent hospitalization for severe sepsis presents to the emergency room after his home health nurse called EMS because she was concerned that the patient was unable to care for himself. Urethral cutaneous fistula/persistent left inguinal wound Status post suprapubic catheter placement and multiple washouts and wound VAC placement of left groin Left inguinal wound draining purulent material, concern for active infection -Previously had irrigation and washout multiple times, wound was closed with aneta up to the area of the groin and scrotal junction small sponge on top of the left hemiscrotum with VAC placement, VAC was removed when EMS got the patient -Wound care consulted, recommends dry abdominal pad, displaced aneta removed per urology. Urinary tract infection, catheter related infection Suprapubic cath in place -Urine culture positive for Klebsiella pn., ESBL (+), zosyn and vanco discontinued, recommened ertapenem x 14 days. Urology consulted, no acute intervention, daily dressing change, apply antibiotic ointment. Diabetes mellitus -Sliding scale insulin, continue home regimen -Monitor blood glucose -Diabetic diet Physical deconditioning -Patient unable to care for himself at home -Case management consulted to assist with discharge planning, possible SNF. Psychiatry was consulted, patient has capacity to make medical decisions, I agreed the patient has capacity. Left lateral foot ankle ulceration -Previous excision/biopsy of wound with skin plasty left lateral ankle, ostectomy left lateral malleolus on 09/13, no signs of infx -Dr. Christiansen followed prior, may reconsult if needed -Weight bearing as tolerated to the left LE Anemia, iron deficient -Continue ferrous sulfate DVT prop SCDs
[2018-10-15] MEDS: Ferrous Sulfate 325 MG Tablet PO SCH ×2 (14:04→17:11)
[2018-10-16] MEDS: Insulin NovoLOG Aspart Correctional Sugar Inj SQ SCH ×5 (05:41→20:24)
[2018-10-16] MEDS: Senna/Docusate Sodium 8.6/50 MG Tablet PO SCH ×3 (05:42→20:24)
[2018-10-16] MEDS: Sod Chloride 0.9% Inj 1,000 ML IV.CONT SCH ×2 (05:46→16:05)
[2018-10-16] MEDS: Ferrous Sulfate 325 MG Tablet PO SCH ×2 (09:05→18:02)
--- NOTE | 2018-10-16 10:28 | P.PNIM ---
Subjective Interval history: Follow-up for UTI No overnight events, no fever, no urinary symptoms. Mental status at baseline. Afebrile. Physical Exam Vital signs: Vital Signs 10/15/18 12:00 10/15/18 16:00 10/15/18 20:00 Temperature 98.8 F 98.0 F 99.0 F Pulse Rate 76 74 74 Respiratory Rate 20 18 20 Blood Pressure 129/62 110/62 109/59 L Pulse Oximetry 97 99 99 10/16/18 00:00 10/16/18 04:00 Temperature 97.6 F 98.4 F Pulse Rate 66 68 Respiratory Rate 18 20 Blood Pressure 129/60 118/59 L Pulse Oximetry 98 99 Intake & Output 10/15/18 10/16/18 10/16/18 18:59 06:59 18:59 Intake Total 1100 / 1100 1240 / 1240 Output Total 1200 / 1200 2600 / 2600 Balance -100 / -100 -1360 / -1360 Weight 86 kg Intake: IV 100 / 100 1000 / 1000 NS Inj 1,000 ML @ 100 mls/hr IV 1000 / 1000 .CONT .Q10H [facility] Rx#:[id number] INVanz Inj 1,000 MG In NS Inj 100 / 100 100 ML @ 200 mls/hr IV.SIG Q24H [facility] Rx#:[id number] Oral 1000 / 1000 240 / 240 Output: Urine 650 / 650 2000 / 2000 Stool 600 / 600 Urine Amount (Catheter) 350 / 350 Suprapubic 350 / 350 Stool Amount (Stoma) 200 / 200 Left Lower Abdomen 200 / 200 Other: Date of Last Bowel Movement 10/15/18 Narrative: Gen.: Thin appearing elderly male. No acute distress Cardiovascular: Regular rate and rhythm. No murmurs, rubs or gallops. Respiratory: Lungs clear to auscultation bilaterally. No wheezes or rhonchi. Abdomen: Soft, nontender, nondistended. No peritoneal signs. Suprapubic catheter in place, clean. Musculoskeletal: No gross deformities. No edema. Skin: Left groin wound with aneta present, open and draining foul Neuro: Alert awake and oriented x3. Sensory and motor grossly intact. Cranial nerves II through XII grossly intact. - Urinary Catheter Management Suprapubic Cath placed during this visit: no Results - Labs CBC & Chem 7: 10/14/18 07:16 10/14/18 07:16 Laboratory Results - last 24 hr 10/15/18 10/15/18 10/16/18 10:41 21:37 03:40 POC Glucose 93 114 H Vancomycin Trough 2.6 L 10/16/18 08:41 POC Glucose 108 Vancomycin Trough Microbiology 10/13/18 22:45 Wound - Groin Gram Stain - Final 10/13/18 22:45 Wound - Groin Wound Culture - Preliminary Moderate growth normal skin ino at 24 hours. 10/13/18 22:35 Blood - Peripheral Aerobic Blood Culture - Preliminary No growth in 2 days 10/13/18 22:35 Blood - Peripheral Anaerobic Blood Culture - Preliminary No growth in 2 days 10/13/18 22:40 Blood - Peripheral Aerobic Blood Culture - Preliminary No growth in 2 days 10/13/18 22:40 Blood - Peripheral Anaerobic Blood Culture - Preliminary No growth in 2 days Assessment and Plan - Plan 68-year-old male with a past medical history significant for diabetes mellitus and recent hospitalization for severe sepsis presents to the emergency room after his home health nurse called EMS because she was concerned that the patient was unable to care for himself. Urethral cutaneous fistula/persistent left inguinal wound Status post suprapubic catheter placement and multiple washouts and wound VAC placement of left groin Left inguinal wound draining purulent material, concern for active infection -Previously had irrigation and washout multiple times, wound was closed with aneta up to the area of the groin and scrotal junction small sponge on top of the left hemiscrotum with VAC placement, VAC was removed when EMS got the patient. Wound care consulted, recommends dry abdominal pad, displaced aneta removed per urology. Urinary tract infection, catheter related infection Suprapubic cath in place -Urine culture positive for Klebsiella pn., ESBL (+), zosyn and vanco discontinued, recommened ertapenem x 14 days, finished on October 27, 2018. Urology consulted, no acute intervention, daily dressing change, apply antibiotic ointment. Diabetes mellitus -Sliding scale insulin, continue home regimen, blood glucose controlled. Physical deconditioning -Patient unable to care for himself at home -Case management consulted to assist with discharge planning, possible SNF. Psychiatry was consulted, patient has capacity to make medical decisions, I agreed the patient has capacity. Left lateral foot ankle ulceration -Previous excision/biopsy of wound with skin plasty left lateral ankle, ostectomy left lateral malleolus on 09/13, no signs of infx -Dr. Christiansen followed prior, may reconsult if needed -Weight bearing as tolerated to the left LE Anemia, iron deficient -Continue ferrous sulfate DVT prop SCDs Discharge to snf once placement is in place, needs ertapenem until October 28.
[2018-10-17] MEDS: Insulin NovoLOG Aspart Correctional Sugar Inj SQ SCH ×5 (07:34→21:26)
[2018-10-17] MEDS: Sod Chloride 0.9% Inj 1,000 ML IV.CONT SCH ×3 (07:35→18:06)
--- NOTE | 2018-10-17 07:49 | P.PN ---
Subjective Interval history: Follow up on patient with urethral cutaneous fistula. Patient seen and examined. Patient does not voice any acute medical complaints or concerns. Patient states he was not able to ambulate while he was at home. He denies any fever or chills. He denies any nausea, vomiting or abdominal pain. He denies any chest pain or shortness of breath. He denies any complaints of diarrhea or constipation. Physical Exam Vital signs: Vital Signs 10/16/18 08:00 10/16/18 12:00 10/16/18 16:00 Temperature 98.7 F 98.3 F 98.7 F Pulse Rate 66 71 78 Respiratory Rate 20 20 20 Blood Pressure 133/62 117/61 115/62 Pulse Oximetry 98 98 97 10/16/18 20:00 10/17/18 00:00 10/17/18 04:00 Temperature 97.1 F L 98.2 F 98.2 F Pulse Rate 71 65 65 Respiratory Rate 18 18 18 Blood Pressure 129/62 132/63 132/63 Pulse Oximetry 97 97 97 Intake & Output 10/16/18 10/17/18 10/17/18 18:59 06:59 18:59 Intake Total 1100 / 1100 1999 Output Total 2550 / 2550 Balance -1450 / -1450 1999 Intake: IV 200 / 200 1999 NS Inj 1,000 ML @ 100 mls/hr IV 100 / 100 1999 .CONT .Q10H [facility] Rx#:[id number] INVanz Inj 1,000 MG In NS Inj 100 / 100 100 ML @ 200 mls/hr IV.SIG Q24H [facility] Rx#:[id number] Oral 900 / 900 Output: Urine Amount (Catheter) 2550 / 2550 Suprapubic 2550 / 2550 Other: Date of Last Bowel Movement 10/15/18 10/15/18 Narrative: GENERAL: Thin elderly male patient, INAD. Awake and alert. SKIN: Warm and dry. HEENT: Atraumatic. Normocephalic. Pupils equal and round. No scleral icterus. No injection or drainage. No nasal bleeding or discharge. Mucous membranes pink and moist. NECK: Trachea midline. CARDIOVASCULAR: Regular rate and rhythm. RESPIRATORY: No accessory muscle use. Clear to auscultation. Breath sounds equal bilaterally. GASTROINTESTINAL: Abdomen soft, non-tender, nondistended. Hepatic and splenic margins not palpable. GENITOURINARY: +suprapubic catheter in place. +Left groin wound with aneta present, scant amount of greenish drainage noted on abd pad. MUSCULOSKELETAL: Extremities without clubbing, cyanosis, or edema. No obvious deformities. NEUROLOGICAL: Awake and alert. No obvious cranial nerve deficits. Able to move all extremities spontaneously. Nonfocal. Normal speech. PSYCHIATRIC: Appropriate mood and affect; insight and judgment fair. - Urinary Catheter Management Suprapubic Cath placed during this visit: no Reason for continuing: Severe pressure ulcer/wound Results - Labs CBC & Chem 7: 10/14/18 07:16 10/14/18 07:16 Laboratory Results - last 24 hr 10/16/18 10/16/18 10/16/18 08:41 11: 16:47 POC Glucose 108 123 H 110 10/16/18 10/17/18 20:20 03:29 POC Glucose 90 115 H Microbiology 10/13/18 22:45 Wound - Groin Gram Stain - Final 10/13/18 22:45 Wound - Groin Wound Culture - Preliminary gram negative rods 10/13/18 22:35 Blood - Peripheral Aerobic Blood Culture - Preliminary No growth in 3 days 10/13/18 22:35 Blood - Peripheral Anaerobic Blood Culture - Preliminary No growth in 3 days 10/13/18 22:40 Blood - Peripheral Aerobic Blood Culture - Preliminary No growth in 3 days 10/13/18 22:40 Blood - Peripheral Anaerobic Blood Culture - Preliminary No growth in 3 days Assessment and Plan - Plan 68-year-old male with a past medical history significant for diabetes mellitus and recent hospitalization for severe sepsis presents to the emergency room after his home health nurse called EMS because she was concerned that the patient was unable to care for himself. Urethral cutaneous fistula/persistent left inguinal wound Status post suprapubic catheter placement and multiple washouts and wound VAC placement of left groin Left inguinal wound draining purulent material, concern for active infection -Previously had irrigation and washout multiple times, wound was closed with aneta up to the area of the groin and scrotal junction small sponge on top of the left hemiscrotum with VAC placement, VAC was removed when EMS got the patient. Wound care consulted, recommends dry abdominal pad, displaced aneta removed per urology. -Wound cx +NICOLASA Lamas -ID following, appreciate assistance -Urology following, recommends removal of displaced aneta, daily dressing change, antibiotic ointment. Contact Dr. Cassidy for further management. Urinary tract infection, catheter related infection Suprapubic cath in place -Urine culture positive for Klebsiella pn., ESBL (+), zosyn and vanco discontinued, recommened ertapenem x 14 days, finished on October 27, 2018. Diabetes mellitus -Sliding scale insulin, continue home regimen, blood glucose controlled. Physical deconditioning -Patient unable to care for himself at home -Case management consulted to assist with discharge planning, possible SNF. Psychiatry was consulted, patient has capacity to make medical decisions. Left lateral foot ankle ulceration -Previous excision/biopsy of wound with skin plasty left lateral ankle, ostectomy left lateral malleolus on 09/13, no signs of infx -Dr. Christiansen followed prior, may reconsult if needed -Weight bearing as tolerated to the left LE Anemia, iron deficient -Continue ferrous sulfate DVT prop SCDs Discussed Condition With: patient, nursing staff Discharge Planning: Not ready for discharge
[2018-10-17] MEDS: Senna/Docusate Sodium 8.6/50 MG Tablet PO SCH ×2 (09:43→21:26)
[2018-10-17] MEDS: Ferrous Sulfate 325 MG Tablet PO SCH ×2 (13:37→18:03)
[2018-10-18] MEDS: Sod Chloride 0.9% Inj 1,000 ML IV.CONT SCH ×2 (01:55→13:01)
[2018-10-18] MEDS: Insulin NovoLOG Aspart Correctional Sugar Inj SQ SCH ×5 (03:52→23:22)
--- NOTE | 2018-10-18 08:02 | P.PN ---
Subjective Interval history: Follow up on patient with urethral cutaneous fistula. Patient seen and examined. Patient says he is ok. He does not voice any new medical complaints or concerns. He denies any fever or chills. He denies any chest pain or dyspnea. He denies any N/V or abdominal pain. Physical Exam Vital signs: Vital Signs 10/17/18 12:00 10/17/18 19:20 10/17/18 20:00 Temperature 98.2 F 98.3 F 98.8 F Pulse Rate 66 68 71 Respiratory Rate 20 20 18 Blood Pressure 132/65 136/67 125/98 H Pulse Oximetry 99 98 98 10/18/18 00:00 10/18/18 04:00 Temperature 98.0 F 98.8 F Pulse Rate 82 85 Respiratory Rate 20 18 Blood Pressure 149/69 H 141/72 H Pulse Oximetry 98 96 Intake & Output 10/17/18 10/18/18 10/18/18 18:59 06:59 18:59 Intake Total 4950 / 4950 1100 / 1100 Output Total 2850 / 2850 1800 / 1800 Balance 2100 / 2100 -700 / -700 Weight 85.6 kg Intake: IV 3000 / 3000 1100 / 1100 NS Inj 1,000 ML @ 100 mls/hr IV 3000 / 3000 1000 / 1000 .CONT .Q10H [facility] Rx#:[id number] INVanz Inj 1,000 MG In NS Inj 100 / 100 100 ML @ 200 mls/hr IV.SIG Q24H [facility] Rx#:[id number] Oral 1950 / 1950 Output: Urine 1600 / 1600 Urine Amount (Catheter) 2650 / 2650 Suprapubic 2650 / 2650 Stool Amount (Stoma) 200 / 200 200 / 200 Left Lower Abdomen 200 / 200 200 / 200 Other: Date of Last Bowel Movement 10/17/18 10/18/18 Narrative: GENERAL: Thin elderly male patient, INAD. Awake and alert. Appears comfortable lying in bed. SKIN: Warm and dry. HEENT: Atraumatic. Normocephalic. Pupils equal and round. No scleral icterus. No injection or drainage. No nasal bleeding or discharge. Mucous membranes pink and moist. NECK: Trachea midline. CARDIOVASCULAR: Regular rate and rhythm. RESPIRATORY: No accessory muscle use. Clear to auscultation. Breath sounds equal bilaterally. GASTROINTESTINAL: Abdomen soft, non-tender, nondistended. Hepatic and splenic margins not palpable. GENITOURINARY: +suprapubic catheter in place. +Left groin wound with aneta present, scant amount of greenish drainage noted on abd pad. MUSCULOSKELETAL: Extremities without clubbing, cyanosis, or edema. No obvious deformities. NEUROLOGICAL: Awake and alert. No obvious cranial nerve deficits. Able to move all extremities spontaneously. Nonfocal. Normal speech. PSYCHIATRIC: Flat affect; insight and judgment fair. - Urinary Catheter Management Suprapubic Cath placed during this visit: no Reason for continuing: Severe pressure ulcer/wound Results - Labs CBC & Chem 7: 10/14/18 07:16 10/14/18 07:16 Laboratory Results - last 24 hr 10/17/18 10/18/18 21:26 03:48 POC Glucose 91 110 Microbiology 10/13/18 22:45 Wound - Groin Gram Stain - Final 10/13/18 22:45 Wound - Groin Wound Culture - Preliminary Hafnia alvei gram negative rods 10/13/18 22:35 Blood - Peripheral Aerobic Blood Culture - Preliminary No growth in 4 days 10/13/18 22:35 Blood - Peripheral Anaerobic Blood Culture - Preliminary No growth in 4 days 10/13/18 22:40 Blood - Peripheral Aerobic Blood Culture - Preliminary No growth in 4 days 10/13/18 22:40 Blood - Peripheral Anaerobic Blood Culture - Preliminary No growth in 4 days Assessment and Plan - Plan 68-year-old male with a past medical history significant for diabetes mellitus and recent hospitalization for severe sepsis presents to the emergency room after his home health nurse called EMS because she was concerned that the patient was unable to care for himself. Urethral cutaneous fistula/persistent left inguinal wound Status post suprapubic catheter placement and multiple washouts and wound VAC placement of left groin Left inguinal wound draining purulent material, concern for active infection -Previously had irrigation and washout multiple times, wound was closed with aneta up to the area of the groin and scrotal junction small sponge on top of the left hemiscrotum with VAC placement, VAC was removed when EMS got the patient. Wound care consulted, recommends dry abdominal pad, displaced aneta removed per urology. -Wound cx +Hafnia alvei and Morganella morganii, communicated with Dr. Hahn who is covering ID -ID following, appreciate assistance -Urology following, recommends removal of displaced aneta, daily dressing change, antibiotic ointment. Contact Dr. Cassidy for further management. Urinary tract infection, catheter related infection Suprapubic cath in place -Urine culture positive for Klebsiella pn., ESBL (+), zosyn and vanco discontinued, recommended ertapenem x 14 days, finished on October 27, 2018. Diabetes mellitus -Sliding scale insulin, continue home regimen, blood glucose controlled. Physical deconditioning -Patient unable to care for himself at home -Case management consulted to assist with discharge planning. Psychiatry was consulted, patient has capacity to make medical decisions. -Continue with PT. Patient continues to refuse discharge to SNF. DCF involved. Left lateral foot ankle ulceration -Previous excision/biopsy of wound with skin plasty left lateral ankle, ostectomy left lateral malleolus on 09/13, no signs of infx -Dr. Christiansen followed prior, may reconsult if needed -Weight bearing as tolerated to the left LE Anemia, iron deficient -Continue ferrous sulfate DVT prop SCDs Discussed Condition With: patient, nursing staff, Dr. Gallegos Discharge Planning: Not ready for discharge
[2018-10-18] MEDS: Senna/Docusate Sodium 8.6/50 MG Tablet PO SCH ×2 (09:11→23:22)
[2018-10-18] MEDS: Ferrous Sulfate 325 MG Tablet PO SCH ×2 (13:00→18:04)
[2018-10-19] MEDS: Insulin NovoLOG Aspart Correctional Sugar Inj SQ SCH ×5 (03:57→20:51)
--- NOTE | 2018-10-19 07:31 | P.PN ---
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 Patient seen and examined. Patient continues to refuse to go to rehab and or [facility] facility. He is adamant that he will be discharged home. He says that all he needs is supplies for his ostomy. He denies any acute medical complaints at this time. Denies any fever or chills. Denies any chest pain or shortness of breath. Denies any nausea, vomiting or abdominal pain. Physical Exam Vital signs: Vital Signs 10/18/18 08:00 10/18/18 12:00 10/18/18 16:00 Temperature 98.3 F 97.7 F 97.3 F L Pulse Rate 74 77 77 Respiratory Rate 20 20 20 Blood Pressure 144/68 H 121/60 122/75 Pulse Oximetry 97 97 98 10/18/18 20:00 10/19/18 00:00 10/19/18 04:00 Temperature 97.8 F 98.3 F 97.8 F Pulse Rate 83 72 72 Respiratory Rate 20 19 17 Blood Pressure 150/75 H 125/60 119/62 Pulse Oximetry 97 97 98 Intake & Output 10/18/18 10/19/18 10/19/18 18:59 06:59 18:59 Intake Total 3000 / 3000 821 / 821 Output Total 1100 / 1100 Balance 1900 / 1900 821 / 821 Weight 95 kg Intake: IV 1000 / 1000 600 / 600 NS Inj 1,000 ML @ 100 mls/hr IV 1000 / 1000 500 / 500 .CONT .Q10H [facility] Rx#:[id number] INVanz Inj 1,000 MG In NS Inj 100 / 100 100 ML @ 200 mls/hr IV.SIG Q24H [facility] Rx#:[id number] Oral 1999 221 / 221 Output: Urine Amount (Catheter) 1000 / 1000 Suprapubic 1000 / 1000 Stool Amount (Stoma) 100 / 100 Left Lower Abdomen 100 / 100 Other: Date of Last Bowel Movement 10/18/18 10/18/18 Narrative: GENERAL: Thin elderly male patient, INAD. Awake and alert. Appears comfortable lying in bed. SKIN: Warm and dry. HEENT: Atraumatic. Normocephalic. EOMI. No scleral icterus. No injection or drainage. No nasal bleeding or discharge. Mucous membranes pink and moist. NECK: Trachea midline. CARDIOVASCULAR: Regular rate and rhythm. RESPIRATORY: No accessory muscle use. Clear to auscultation. Breath sounds equal bilaterally. GASTROINTESTINAL: Abdomen soft, non-tender, nondistended. +BS. GENITOURINARY: +suprapubic catheter in place. +Left groin wound with aneta present, scant amount of purulent drainage noted on abd pad. MUSCULOSKELETAL: Extremities without clubbing, cyanosis, or edema. NEUROLOGICAL: Awake and alert. No obvious cranial nerve deficits. Able to move all extremities spontaneously. Nonfocal. Normal speech. PSYCHIATRIC: Flat affect; insight and judgment fair. - Urinary Catheter Management Suprapubic Cath placed during this visit: yes Reason for continuing: Severe pressure ulcer/wound Insertion date: 10/13/18 Insertion time: 20:13 Results - Labs CBC & Chem 7: 10/14/18 07:16 10/14/18 07:16 Laboratory Results - last 24 hr 10/18/18 10/18/18 10/18/18 12:23 16:45 21:50 POC Glucose 169 H 117 H 118 H 10/19/18 03:56 POC Glucose 107 Microbiology 10/13/18 22:35 Blood - Peripheral Aerobic Blood Culture - Final No growth in 5 days 10/13/18 22:35 Blood - Peripheral Anaerobic Blood Culture - Final No growth in 5 days 10/13/18 22:40 Blood - Peripheral Aerobic Blood Culture - Final No growth in 5 days 10/13/18 22:40 Blood - Peripheral Anaerobic Blood Culture - Final No growth in 5 days 10/13/18 22:45 Wound - Groin Gram Stain - Final 10/13/18 22:45 Wound - Groin Wound Culture - Final Hafnia alvei Morganella morganii Assessment and Plan - Plan 68-year-old male with a past medical history significant for diabetes mellitus and recent hospitalization for severe sepsis presents to the emergency room after his home health nurse called EMS because she was concerned that the patient was unable to care for himself. Urethral cutaneous fistula/persistent left inguinal wound Status post suprapubic catheter placement and multiple washouts and wound VAC placement of left groin Left inguinal wound draining purulent material, concern for active infection -Previously had irrigation and washout multiple times, wound was closed with aneta up to the area of the groin and scrotal junction small sponge on top of the left hemiscrotum with VAC placement, VAC was removed when EMS got the patient. Wound care consulted, recommends dry abdominal pad, displaced aneta removed per urology. -Wound cx +Hafhieu rochai and Morganella morganii, communicated with Dr. Hahn who is covering ID -ID following, appreciate assistance -Urology following, appreciate assistance. Wound care for daily dressing changes. Plans to change suprapubic tube at bedside. Urinary tract infection, catheter related infection Suprapubic cath in place -Urine culture positive for Klebsiella pn., ESBL (+), zosyn and vanco discontinued, recommended ertapenem x 14 days, finished on October 27, 2018. Diabetes mellitus -Sliding scale insulin, continue home regimen, blood glucose controlled. Physical deconditioning -Patient unable to care for himself at home -Case management consulted to assist with discharge planning. Psychiatry was consulted, patient has capacity to make medical decisions. -Continue with PT. Patient continues to refuse discharge to SNF. DCF involved. Left lateral foot ankle ulceration -Previous excision/biopsy of wound with skin plasty left lateral ankle, ostectomy left lateral malleolus on 09/13, no signs of infx -Dr. Christiansen followed prior, may reconsult if needed -Weight bearing as tolerated to the left LE Anemia, iron deficient -Continue ferrous sulfate DVT prop SCDs Discussed Condition With: patient, nursing staff, Dr. Gallegos Discharge Planning: Not ready for discharge
--- NOTE | 2018-10-19 08:34 | P.PNURO ---
Subjective Patient symptoms today: Pt seen and examined. Feels well. Wound with some purulent drainage. Objective Vital Signs: Vital Signs 10/18/18 12:00 10/18/18 16:00 10/18/18 20:00 Temperature 97.7 F 97.3 F L 97.8 F Pulse Rate 77 77 83 Respiratory Rate 20 20 20 Blood Pressure 121/60 122/75 150/75 H Pulse Oximetry 97 98 97 10/19/18 00:00 10/19/18 04:00 Temperature 98.3 F 97.8 F Pulse Rate 72 72 Respiratory Rate 19 17 Blood Pressure 125/60 119/62 Pulse Oximetry 97 98 Intake & Output 10/18/18 10/19/18 10/19/18 18:59 06:59 18:59 Intake Total 3000 / 3000 821 / 821 Output Total 1100 / 1100 Balance 1900 / 1900 821 / 821 Weight 95 kg Intake: IV 1000 / 1000 600 / 600 NS Inj 1,000 ML @ 100 mls/hr IV 1000 / 1000 500 / 500 .CONT .Q10H [facility] Rx#:[id number] INVanz Inj 1,000 MG In NS Inj 100 / 100 100 ML @ 200 mls/hr IV.SIG Q24H [facility] Rx#:[id number] Oral 1999 221 / 221 Output: Urine Amount (Catheter) 1000 / 1000 Suprapubic 1000 / 1000 Stool Amount (Stoma) 100 / 100 Left Lower Abdomen 100 / 100 Other: Date of Last Bowel Movement 10/18/18 10/18/18 Result Diagrams: 10/14/18 07:16 10/14/18 07:16 Medications and IVs: Active Medications Generic Name Dose Route Start Last Admin Trade Name Freq PRN Reason Stop Dose Admin Acetaminophen 650 mg 10/13/18 21:55 Tylenol PO Q4H PRN Temp > 100.4 Al Hydroxide/Mg Hydroxide 30 ml 10/13/18 21:55 Milk Of Magnesia Liq PO Q12H PRN Mild Constipation Bisacodyl 10 mg 10/13/18 21:55 Dulcolax Supp RECTAL DAILY PRN SEVERE CONSITIPATION Dextrose 50 ml 10/13/18 21:55 D50w Vial IV.PUSH UNSCH PRN PER HYPOGLYCEMIA PROTOCOL Ferrous Sulfate 325 mg 10/13/18 12:00 10/18/18 18:04 Ferosul PO 325 mg BID@1200,1700 [facility] Administration Glucagon 1 mg 10/13/18 21:55 Glucagon Inj OTHER PRN PRN for Hypoglycemia Protocol Ertapenem 1,000 mg/ Sodium 100 mls @ 200 mls/hr 10/14/18 18:00 10/18/18 19:58 Chloride IV.SIG Infused Q24H [facility] Infusion Insulin Aspart 0 unit 10/14/18 03:00 10/19/18 08:04 Novolog Insulin Correctional Sugar Inj SQ Not Given ACHS AND 3AM [facility] Protocol Insulin Human Isoph/Insulin Regular 12 units 10/13/18 08:00 10/18/18 18:04 Novolin 70/30 Inj SQ 12 units BID@0800,1700 [facility] Administration Lactulose 30 ml 10/13/18 21:55 Lactulose Liq PO DAILY PRN SEVERE CONSITIPATION Metformin HCl 1,000 mg 10/13/18 09:00 10/18/18 18:03 Glucophage PO 1,000 mg BIDPC [facility] Administration Ondansetron HCl 4 mg 10/13/18 21:55 Zofran Inj IV.PUSH Q6H PRN NAUSEA OR VOMITING Senna/Docusate Sodium 1 tab 10/14/18 09:00 10/18/18 23:22 Diane-Colace PO Not Given BID [facility] Sennosides 17.2 mg 10/13/18 21:55 Senokot PO Q12H PRN Moderate Constipation Sodium Chloride 2 ml 10/12/18 17:29 Ns Flush IV.FLUSH PRN PRN FLUSH AFTER USING IV ACCESS Objective Remarks: Abd: soft,nt,nd Wound: clean with some drainage Assessment and Plan - Plan 68y.o m with history as per HPI - No acute intervention - Keep SPT - Consult ID to help with management - wound management as per Wound care teat Remove displaced aneta - Daily dressing change, can apply antbx ointment - Contac Dr Cassidy for further management 10/19 68 y.o male with h/o urethral cutaneous fistula s/p SP tube followed by multiple groin washouts with vac changes Wound care for daily dressing changes Will change SP tube at bedside
[2018-10-19] MEDS: Senna/Docusate Sodium 8.6/50 MG Tablet PO SCH ×2 (08:44→20:51)
[2018-10-19] MEDS: Ferrous Sulfate 325 MG Tablet PO SCH ×2 (12:01→17:44)
[2018-10-20] MEDS: Insulin NovoLOG Aspart Correctional Sugar Inj SQ SCH ×5 (03:14→22:01)
--- NOTE | 2018-10-20 07:50 | P.PN ---
Subjective Interval history: Patient seen and examined. No significant change. Patient does not voice any acute medical complaints or concerns. DW nursing staff, no adverse events noted overnight. Physical Exam Vital signs: Vital Signs 10/19/18 08:00 10/19/18 12:00 10/19/18 16:00 Temperature 98.1 F 98.0 F 98.1 F Pulse Rate 75 75 74 Respiratory Rate 20 20 20 Blood Pressure 124/61 106/57 L 110/58 L Pulse Oximetry 97 98 97 10/19/18 20:00 10/20/18 00:00 10/20/18 04:00 Temperature 98.8 F 98.3 F 98.0 F Pulse Rate 80 80 74 Respiratory Rate 20 20 20 Blood Pressure 122/61 122/59 L 127/61 Pulse Oximetry 98 97 98 Intake & Output 10/19/18 10/20/18 10/20/18 18:59 06:59 18:59 Intake Total 580 / 580 663 / 663 Output Total 950 / 950 1500 / 1500 Balance -370 / -370 -837 / -837 Weight 86.1 kg Intake: IV 100 / 100 INVanz Inj 1,000 MG In NS Inj 100 / 100 100 ML @ 200 mls/hr IV.SIG Q24H [facility] Rx#:[id number] Oral 480 / 480 663 / 663 Output: Urine 950 / 950 1200 / 1200 Urine Amount (Catheter) 300 / 300 Suprapubic 300 / 300 Other: Date of Last Bowel Movement 10/19/18 10/20/18 # Bowel Movements 1 1 Narrative: GENERAL: Thin elderly male patient, INAD. Awake and alert. Appears comfortable lying in bed watching TV. SKIN: Warm and dry. HEENT: Atraumatic. Normocephalic. EOMI. No scleral icterus. No injection or drainage. No nasal bleeding or discharge. Mucous membranes pink and moist. NECK: Trachea midline. CARDIOVASCULAR: Regular rate and rhythm. RESPIRATORY: No accessory muscle use. Clear to auscultation. Breath sounds equal bilaterally. GASTROINTESTINAL: Abdomen soft, non-tender, nondistended. +BS. GENITOURINARY: +suprapubic catheter in place. +Left groin wound appears to be healing well, aneta have been removed. MUSCULOSKELETAL: Extremities without clubbing, cyanosis, or edema. NEUROLOGICAL: Awake and alert. No obvious cranial nerve deficits. Able to move all extremities spontaneously. Nonfocal. Normal speech. PSYCHIATRIC: Flat affect; insight and judgment fair. - Urinary Catheter Management Suprapubic Cath placed during this visit: yes Reason for continuing: Acute urinary retention Insertion date: 10/13/18 Insertion time: 20:13 Results - Labs CBC & Chem 7: 10/14/18 07:16 10/14/18 07:16 Laboratory Results - last 24 hr 10/19/18 10/19/18 10/19/18 08:02 11:28 16:40 POC Glucose 122 H 167 H 100 10/19/18 10/20/18 20:40 03:13 POC Glucose 105 82 Assessment and Plan - Plan 68-year-old male with a past medical history significant for diabetes mellitus and recent hospitalization for severe sepsis presents to the emergency room after his home health nurse called EMS because she was concerned that the patient was unable to care for himself. Urethral cutaneous fistula/persistent left inguinal wound Status post suprapubic catheter placement and multiple washouts and wound VAC placement of left groin Left inguinal wound draining purulent material, concern for active infection -Previously had irrigation and washout multiple times, wound was closed with aneta up to the area of the groin and scrotal junction small sponge on top of the left hemiscrotum with VAC placement, VAC was removed when EMS got the patient. Wound care consulted, recommends dry abdominal pad, displaced aneta removed per urology. -Wound cx +Hafnia alvei and Morganella morganii, communicated with Dr. Hahn who is covering ID -ID following, appreciate assistance -Urology following, appreciate assistance. Wound care for daily dressing changes. Plans to change suprapubic tube at bedside. Urinary tract infection, catheter related infection Suprapubic cath in place -Urine culture positive for Klebsiella pn., ESBL (+), zosyn and vanco discontinued, recommended ertapenem x 14 days, finished on October 27, 2018. Diabetes mellitus -Sliding scale insulin, continue home regimen, blood glucose controlled. Physical deconditioning -Patient unable to care for himself at home -Case management consulted to assist with discharge planning. Psychiatry was consulted, patient has capacity to make medical decisions. -Continue with PT. Patient continues to refuse discharge to SNF. DCF involved. CM assisting with discharge planning. Left lateral foot ankle ulceration -Previous excision/biopsy of wound with skin plasty left lateral ankle, ostectomy left lateral malleolus on 09/13, no signs of infx -Dr. Christiansen followed prior, may reconsult if needed -Weight bearing as tolerated to the left LE Anemia, iron deficient -Continue ferrous sulfate DVT prop SCDs Discussed Condition With: patient, nursing staff, Dr. Gallegos Discharge Planning: Not ready for discharge
[2018-10-20] MEDS: Senna/Docusate Sodium 8.6/50 MG Tablet PO SCH ×2 (08:47→22:01)
[2018-10-20] MEDS: Ferrous Sulfate 325 MG Tablet PO SCH ×2 (12:53→17:47)
[2018-10-21] MEDS: Insulin NovoLOG Aspart Correctional Sugar Inj SQ SCH ×5 (05:06→20:21)
[2018-10-21] MEDS: Ferrous Sulfate 325 MG Tablet PO SCH ×2 (12:39→17:12)
--- NOTE | 2018-10-21 16:18 | P.PNURO ---
Subjective Patient symptoms today: Pt seen and examined. Feels well. Objective Vital Signs: Vital Signs 10/20/18 20:00 10/21/18 00:00 10/21/18 04:00 Temperature 98.6 F 98.3 F 99.5 F Pulse Rate 81 83 89 Respiratory Rate 20 17 18 Blood Pressure 112/55 L 120/58 L 119/56 L Pulse Oximetry 97 98 97 10/21/18 08:00 10/21/18 12:00 Temperature 100 F H 98.5 F Pulse Rate 79 81 Respiratory Rate 16 20 Blood Pressure 107/55 L 102/59 L Pulse Oximetry 97 98 Intake & Output 10/20/18 10/21/18 10/21/18 18:59 06:59 18:59 Intake Total 600 / 600 100 / 100 Output Total 1000 / 1000 1550 / 1550 Balance -400 / -400 -1450 / -1450 Weight 87.8 kg Intake: IV 100 / 100 INVanz Inj 1,000 MG In NS Inj 100 / 100 100 ML @ 200 mls/hr IV.SIG Q24H [facility] Rx#:[id number] Oral 600 / 600 Output: Urine 1000 / 1000 Urine Amount (Catheter) 1550 / 1550 Suprapubic 1550 / 1550 Other: Date of Last Bowel Movement 10/20/18 10/20/18 10/21/18 Result Diagrams: 10/14/18 07:16 10/14/18 07:16 Medications and IVs: Active Medications Generic Name Dose Route Start Last Admin Trade Name Freq PRN Reason Stop Dose Admin Acetaminophen 650 mg 10/13/18 21:55 Tylenol PO Q4H PRN Temp > 100.4 Al Hydroxide/Mg Hydroxide 30 ml 10/13/18 21:55 Milk Of Magnesia Liq PO Q12H PRN Mild Constipation Bisacodyl 10 mg 10/13/18 21:55 Dulcolax Supp RECTAL DAILY PRN SEVERE CONSITIPATION Dextrose 50 ml 10/13/18 21:55 D50w Vial IV.PUSH UNSCH PRN PER HYPOGLYCEMIA PROTOCOL Ferrous Sulfate 325 mg 10/13/18 12:00 10/21/18 12:39 Ferosul PO 325 mg BID@1200,1700 [facility] Administration Glucagon 1 mg 10/13/18 21:55 Glucagon Inj OTHER PRN PRN for Hypoglycemia Protocol Ertapenem 1,000 mg/ Sodium 100 mls @ 200 mls/hr 10/14/18 18:00 10/20/18 20:00 Chloride IV.SIG Infused Q24H [facility] Infusion Insulin Aspart 0 unit 10/14/18 03:00 10/21/18 12:39 Novolog Insulin Correctional Sugar Inj SQ Not Given ACHS AND 3AM [facility] Protocol Insulin Human Isoph/Insulin Regular 12 units 10/13/18 08:00 10/21/18 09:27 Novolin 70/30 Inj SQ 12 units BID@0800,1700 [facility] Administration Lactulose 30 ml 10/13/18 21:55 Lactulose Liq PO DAILY PRN SEVERE CONSITIPATION Metformin HCl 1,000 mg 10/13/18 09:00 10/21/18 09:27 Glucophage PO 1,000 mg BIDPC [facility] Administration Ondansetron HCl 4 mg 10/13/18 21:55 Zofran Inj IV.PUSH Q6H PRN NAUSEA OR VOMITING Senna/Docusate Sodium 1 tab 10/14/18 09:00 10/20/18 22:01 Diane-Colace PO 1 tab BID [facility] Administration Sennosides 17.2 mg 10/13/18 21:55 Senokot PO Q12H PRN Moderate Constipation Sodium Chloride 2 ml 10/12/18 17:29 Ns Flush IV.FLUSH PRN PRN FLUSH AFTER USING IV ACCESS Objective Remarks: Abd: soft,nt,nd Wound: clean with some drainage 10/21 Abd:soft,nt,nd Wound: dressing in place SP tube in place Assessment and Plan - Plan 68y.o m with history as per HPI - No acute intervention - Keep SPT - Consult ID to help with management - wound management as per Wound care teat Remove displaced aneta - Daily dressing change, can apply antbx ointment - Contac Dr Cassidy for further management 10/19 68 y.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
--- NOTE | 2018-10-21 17:48 | P.PN ---
Subjective Interval history: Patient seen and examined. Patient endorses diarrhea. He denies any fever or chills. He denies any nausea, vomiting or abdominal pain.. Discussed with nursing staff, Dr. Cassidy to change out suprapubic tube at the bedside tomorrow. Physical Exam Vital signs: Vital Signs 10/20/18 20:00 10/21/18 00:00 10/21/18 04:00 Temperature 98.6 F 98.3 F 99.5 F Pulse Rate 81 83 89 Respiratory Rate 20 17 18 Blood Pressure 112/55 L 120/58 L 119/56 L Pulse Oximetry 97 98 97 10/21/18 08:00 10/21/18 12:00 Temperature 100 F H 98.5 F Pulse Rate 79 81 Respiratory Rate 16 20 Blood Pressure 107/55 L 102/59 L Pulse Oximetry 97 98 Intake & Output 10/20/18 10/21/18 10/21/18 18:59 06:59 18:59 Intake Total 600 / 600 100 / 100 Output Total 1000 / 1000 1550 / 1550 Balance -400 / -400 -1450 / -1450 Weight 87.8 kg Intake: IV 100 / 100 INVanz Inj 1,000 MG In NS Inj 100 / 100 100 ML @ 200 mls/hr IV.SIG Q24H [facility] Rx#:[id number] Oral 600 / 600 Output: Urine 1000 / 1000 Urine Amount (Catheter) 1550 / 1550 Suprapubic 1550 / 1550 Other: Date of Last Bowel Movement 10/20/18 10/20/18 10/21/18 Narrative: GENERAL: Thin elderly male patient, INAD. Awake and alert. Appears comfortable lying. SKIN: Warm and dry. HEENT: Atraumatic. Normocephalic. EOMI. No scleral icterus. No injection or drainage. No nasal bleeding or discharge. Mucous membranes pink and moist. NECK: Trachea midline. CARDIOVASCULAR: Regular rate and rhythm. RESPIRATORY: No accessory muscle use. Clear to auscultation. Breath sounds equal bilaterally. GASTROINTESTINAL: Abdomen soft, non-tender, nondistended. +BS. +Ostomy in place with loose brown stools noted in bag. GENITOURINARY: +suprapubic catheter in place. +Left groin wound appears to be healing well, aneta have been removed. MUSCULOSKELETAL: Extremities without clubbing, cyanosis, or edema. NEUROLOGICAL: Awake and alert. No obvious cranial nerve deficits. Able to move all extremities spontaneously. Nonfocal. Normal speech. PSYCHIATRIC: Flat affect; insight and judgment fair. - Urinary Catheter Management Suprapubic Cath placed during this visit: yes Reason for continuing: Acute urinary retention Insertion date: 10/13/18 Insertion time: 20:13 Results - Labs CBC & Chem 7: 10/14/18 07:16 10/14/18 07:16 Laboratory Results - last 24 hr 10/20/18 10/21/18 10/21/18 22:01 08:32 12:38 POC Glucose 74 102 111 H 10/21/18 17:02 POC Glucose 120 H Assessment and Plan - Plan 68-year-old male with a past medical history significant for diabetes mellitus and recent hospitalization for severe sepsis presents to the emergency room after his home health nurse called EMS because she was concerned that the patient was unable to care for himself. Urethral cutaneous fistula/persistent left inguinal wound Status post suprapubic catheter placement and multiple washouts and wound VAC placement of left groin Left inguinal wound draining purulent material, concern for active infection -Previously had irrigation and washout multiple times, wound was closed with aneta up to the area of the groin and scrotal junction small sponge on top of the left hemiscrotum with VAC placement, VAC was removed when EMS got the patient. Wound care consulted, recommends dry abdominal pad, displaced aneta removed per urology. -Wound cx +Hafnia alvei and Morganella morganii, communicated with Dr. Hahn who was covering ID -ID following, appreciate assistance -Urology following, appreciate assistance. Wound care for daily dressing changes. Plans to change suprapubic tube at bedside tomorrow. Urinary tract infection, catheter related infection Suprapubic cath in place -Urine culture positive for Klebsiella pn., ESBL (+), zosyn and vanco discontinued, recommended ertapenem x 14 days, finished on October 27, 2018. Diarrhea -Hold stool softeners -Hold Metformin -Send stool for C. difficile if persistent Diabetes mellitus Blood glucose tightly controlled -Hold metformin, may be contributing to diarrhea -Continue Accu-Cheks and coverage with insulin sliding scale -Continue NPH 70/30 12 units twice daily Physical deconditioning -Patient unable to care for himself at home -Case management consulted to assist with discharge planning. Psychiatry was consulted, patient has capacity to make medical decisions. -Continue with PT. Patient continues to refuse discharge to SNF. DCF involved. CM assisting with discharge planning. Reportedly, patient now has pad lock on his door. He does not know why. DCF plans to go out to the home to investigate. Left lateral foot ankle ulceration -Previous excision/biopsy of wound with skin plasty left lateral ankle, ostectomy left lateral malleolus on 09/13, no signs of infx -Dr. Christiansen followed prior, may reconsult if needed -Weight bearing as tolerated to the left LE Anemia, iron deficient -Continue ferrous sulfate DVT prop SCDs Discussed Condition With: patient, nursing staff Discharge Planning: Not ready for discharge. Patient refusing SNF placement.
--- NOTE | 2018-10-21 18:21 | P.DCO ---
- Diagnosis (1) Non-healing open wound of left groin Status: Acute (2) Physical deconditioning Status: Acute (3) Gait instability Status: Acute (4) Open wound of groin Status: Acute (5) Risk for falls Status: Acute (6) Weakness Status: Acute - Physical Therapy Order: Evaluate and treat, Improve ambulation, Strength and gait training - Occupational Therapy Order: Evaluate and treat, Improve ADL, Gross motor coordination, Fine motor coordination - Home Health Nursing Order: Medical education, Signs/symptoms of disease process, Medication education-adverse effect, Wound care and dressing changes (left groin wound - daily dressing changes with wet to dry 4x4 into wound, irrigate scrotum with NS using bulb syringe), Nursing assessment with vital signs Instructions: Ostomy care - Human Capital Analyst Order: To evaluate: Living conditions/environment, Support services - Case Management Consult Case Management Consult-Home Health: Yes - Certification I have seen patient Sang Donahue on 10/21/18. My clinical findings support the need for the requested home health care services because: Limited mobility due to disease progression, Deconditioned with increased weakness, Medication compliance is questionable, Limited ability to care for self, High risk of falls I certify that my clinical findings support that this patient is homebound because: Post-op weakness, Unsteady gait/balance, Unsafe to leave home unassisted, Unable to use public transportation (1) Non-healing open wound of left groin Qualifiers: Encounter type: initial encounter Qualified Code(s): S31.104A - Unspecified open wound of abdominal wall, left lower quadrant without penetration into peritoneal cavity, initial encounter
[2018-10-22] MEDS: Insulin NovoLOG Aspart Correctional Sugar Inj SQ SCH ×5 (04:49→21:11)
--- NOTE | 2018-10-22 10:47 | P.PNURO ---
Subjective Patient symptoms today: Pt seen and examined. No complaints. Objective Vital Signs: Vital Signs 10/21/18 12:00 10/21/18 16:00 10/21/18 20:00 Temperature 98.5 F 99.9 F H 99.3 F Pulse Rate 81 82 83 Respiratory Rate 20 20 19 Blood Pressure 102/59 L 131/62 113/60 Pulse Oximetry 98 96 98 10/22/18 00:00 10/22/18 04:00 10/22/18 08:00 Temperature 100.0 F H 99.5 F 99.3 F Pulse Rate 86 81 80 Respiratory Rate 17 16 20 Blood Pressure 119/62 122/62 120/57 L Pulse Oximetry 96 96 97 Intake & Output 10/21/18 10/22/18 10/22/18 18:59 06:59 18:59 Intake Total 100 / 100 Output Total 1100 / 1100 Balance 100 / 100 -1100 / -1100 Weight 91.9 kg Intake: IV 100 / 100 INVanz Inj 1,000 MG In NS Inj 100 / 100 100 ML @ 200 mls/hr IV.SIG Q24H [facility] Rx#:[id number] Output: Urine Amount (Catheter) 1100 / 1100 Suprapubic 1100 / 1100 Other: Date of Last Bowel Movement 10/21/18 10/21/18 Result Diagrams: 10/14/18 07:16 10/14/18 07:16 Medications and IVs: Active Medications Generic Name Dose Route Start Last Admin Trade Name Freq PRN Reason Stop Dose Admin Acetaminophen 650 mg 10/13/18 21:55 Tylenol PO Q4H PRN Temp > 100.4 Al Hydroxide/Mg Hydroxide 30 ml 10/13/18 21:55 Milk Of Magnesia Liq PO Q12H PRN Mild Constipation Bisacodyl 10 mg 10/13/18 21:55 Dulcolax Supp RECTAL DAILY PRN SEVERE CONSITIPATION Dextrose 50 ml 10/13/18 21:55 D50w Vial IV.PUSH UNSCH PRN PER HYPOGLYCEMIA PROTOCOL Ferrous Sulfate 325 mg 10/13/18 12:00 10/21/18 17:12 Ferosul PO 325 mg BID@1200,1700 [facility] Administration Glucagon 1 mg 10/13/18 21:55 Glucagon Inj OTHER PRN PRN for Hypoglycemia Protocol Ertapenem 1,000 mg/ Sodium 100 mls @ 200 mls/hr 10/14/18 18:00 10/21/18 17:51 Chloride IV.SIG Infused Q24H [facility] Infusion Insulin Aspart 0 unit 10/14/18 03:00 10/22/18 04:49 Novolog Insulin Correctional Sugar Inj SQ Not Given ACHS AND 3AM [facility] Protocol Insulin Human Isoph/Insulin Regular 12 units 10/13/18 08:00 10/21/18 17:12 Novolin 70/30 Inj SQ 12 units BID@0800,1700 [facility] Administration Lactulose 30 ml 10/13/18 21:55 Lactulose Liq PO DAILY PRN SEVERE CONSITIPATION Metformin HCl 1,000 mg 10/13/18 09:00 10/21/18 17:11 Glucophage PO 1,000 mg BIDPC [facility] Administration Ondansetron HCl 4 mg 10/13/18 21:55 Zofran Inj IV.PUSH Q6H PRN NAUSEA OR VOMITING Senna/Docusate Sodium 1 tab 10/14/18 09:00 10/20/18 22:01 Diane-Colace PO 1 tab BID [facility] Administration Sennosides 17.2 mg 10/13/18 21:55 Senokot PO Q12H PRN Moderate Constipation Sodium Chloride 2 ml 10/12/18 17:29 Ns Flush IV.FLUSH PRN PRN FLUSH AFTER USING IV ACCESS Objective Remarks: Abd: soft,nt,nd Wound: clean with some drainage 10/21 Abd:soft,nt,nd Wound: dressing in place SP tube in place 10/22 Abd:soft,nt,nd Wound: clean with some purulent drainage-wet/dry dressings placed SP tube changed at bedside Assessment and Plan - Plan 68y.o m with history as per HPI - No acute intervention - Keep SPT - Consult ID to help with management - wound management as per Wound care teat Remove displaced aneta - Daily dressing change, can apply antbx ointment - Contac Dr Cassidy for further management 10/19 68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
[2018-10-22] MEDS: Ferrous Sulfate 325 MG Tablet PO SCH ×2 (12:12→19:20)
--- NOTE | 2018-10-22 14:53 | P.PN ---
Subjective Interval history: Patient seen and examined, Dr. Cassidy at bedside, just change suprapubic catheter. Needs to be changed in another month. Patient had temp 100 yesterday , 99.4 today. Denies any chest pain, no shortness of breath. No pain at this time. Patient indicates that he will not go to subacute rehab facility, has had bad experience before. Discussed with patient at length, he is not able to care for himself. Recommended that he speak to case management and look at other facilities. Physical Exam Vital signs: Vital Signs 10/21/18 16:00 10/21/18 20:00 10/22/18 00:00 Temperature 99.9 F H 99.3 F 100.0 F H Pulse Rate 82 83 86 Respiratory Rate 20 19 17 Blood Pressure 131/62 113/60 119/62 Pulse Oximetry 96 98 96 10/22/18 04:00 10/22/18 08:00 10/22/18 12:00 Temperature 99.5 F 99.3 F 99.4 F Pulse Rate 81 80 74 Respiratory Rate 16 20 20 Blood Pressure 122/62 120/57 L 113/59 L Pulse Oximetry 96 97 96 Intake & Output 10/21/18 10/22/18 10/22/18 18:59 06:59 18:59 Intake Total 100 / 100 Output Total 1100 / 1100 Balance 100 / 100 -1100 / -1100 Weight 91.9 kg Intake: IV 100 / 100 INVanz Inj 1,000 MG In NS Inj 100 / 100 100 ML @ 200 mls/hr IV.SIG Q24H [facility] Rx#:[id number] Output: Urine Amount (Catheter) 1100 / 1100 Suprapubic 1100 / 1100 Other: Date of Last Bowel Movement 10/21/18 10/21/18 10/22/18 Narrative: GENERAL: 68-year-old male, does not appear in any distress. SKIN: Warm and dry. HEENT: Atraumatic. Normocephalic. EOMI. No scleral icterus. No injection or drainage. No nasal bleeding or discharge. Mucous membranes pink and moist. NECK: Trachea midline. CARDIOVASCULAR: Regular rate and rhythm. RESPIRATORY: No accessory muscle use. Clear to auscultation. Breath sounds equal bilaterally. GASTROINTESTINAL: Abdomen soft, non-tender, nondistended. +BS. +Ostomy in place -no stool at this time. GENITOURINARY: +suprapubic catheter in place. +Left groin wound appears to be healing well, aneta have been removed. Packing in place. MUSCULOSKELETAL: Extremities without clubbing, cyanosis, or edema. Pedal pulses 2+. NEUROLOGICAL: Awake and alert. No obvious cranial nerve deficits. Able to move all extremities spontaneously. Nonfocal. Normal speech. PSYCHIATRIC: Flat affect; insight and judgment fair. - Urinary Catheter Management Suprapubic Cath placed during this visit: yes Reason for continuing: Acute urinary retention Insertion date: 10/13/18 Insertion time: 20:13 Results - Labs CBC & Chem 7: 10/14/18 07:16 10/14/18 07:16 Laboratory Results - last 24 hr 10/21/18 10/21/18 10/21/18 17:02 20:09 22:40 POC Glucose 120 H 129 H Stl C.difficile DNA Amp Negative St C. diff Tox Epid 027 Negative 10/22/18 10/22/18 10/22/18 02:56 08:54 12:15 POC Glucose 115 H 107 144 H Stl C.difficile DNA Amp St C. diff Tox Epid 027 Assessment and Plan - Assessment (1) Non-healing open wound of left groin Code(s): S31.104A - Unspecified open wound of abdominal wall, left lower quadrant without penetration into peritoneal cavity, initial encounter Status : Acute (2) Physical deconditioning Code(s): R53.81 - Other malaise Status: Acute (3) Gait instability Code(s): R26.81 - Unsteadiness on feet Status: Acute (4) Open wound of groin Code(s): S31.109A - Unspecified open wound of abdominal wall, unspecified quadrant without penetration into peritoneal cavity, initial encounter Status : Acute (5) Risk for falls Code(s): Z91.81 - History of falling Status: Acute (6) Weakness Code(s): R53.1 - Weakness Status: Acute - Plan 68-year-old male with a past medical history significant for diabetes mellitus and recent hospitalization for severe sepsis presents to the emergency room after his home health nurse called EMS because she was concerned that the patient was unable to care for himself. Urethral cutaneous fistula/persistent left inguinal wound Status post suprapubic catheter placement and multiple washouts and wound VAC placement of left groin Left inguinal wound draining purulent material, concern for active infection -Previously had irrigation and washout multiple times, wound was closed with aneta up to the area of the groin and scrotal junction small sponge on top of the left hemiscrotum with VAC placement, VAC was removed when EMS got the patient. Wound care consulted, recommends dry abdominal pad, displaced aneta removed per urology. -Wound cx +Hafnia alvei and Morganella morganii, communicated to Dr. Hahn who was covering ID over weekend. Will let Dr. Coppola know -ID following, appreciate assistance -Urology following, appreciate assistance. Wound care for daily dressing changes. Suprapubic catheter changed today, will need to be changed in another month. Urinary tract infection, catheter related infection Suprapubic cath in place -Urine culture positive for Klebsiella pn., ESBL (+), zosyn and vanco discontinued, recommended ertapenem x 14 days, to finish on October 27, 2018. Diarrhea, no loose stools noted in bag today -Hold stool softeners -Hold Metformin -stool cdiff negative Diabetes mellitus Blood glucose tightly controlled -Held metformin, may be contributing to diarrhea -Continue Accu-Cheks and coverage with insulin sliding scale -Continue NPH 70/30 12 units twice daily Physical deconditioning -Patient unable to care for himself at home -Case management consulted to assist with discharge planning. Psychiatry was consulted, patient has capacity to make medical decisions. -Continue with PT. Patient continues to refuse discharge to SNF. DCF involved. CM assisting with discharge planning. Reportedly, patient now has pad lock on his door. He does not know why. DCF went to investigate, nobody available. Per pt. nephew lives with him but works as senior construction project manager. Left lateral foot ankle ulceration -Previous excision/biopsy of wound with skin plasty left lateral ankle, ostectomy left lateral malleolus on 09/13, no signs of infx -Dr. Christiansen followed prior, may reconsult if needed -Weight bearing as tolerated to the left LE Anemia, iron deficient -Continue ferrous sulfate DVT prop SCDs CBC and BMP in am Code Status: Full code Discussed Condition With: RN, pt, CM Discharge Planning: Needs SNF, pt. refusing. (1) Non-healing open wound of left groin Qualifiers: Encounter type: initial encounter Qualified Code(s): S31.104A - Unspecified open wound of abdominal wall, left lower quadrant without penetration into peritoneal cavity, initial encounter
[2018-10-23] MEDS: Insulin NovoLOG Aspart Correctional Sugar Inj SQ SCH ×4 (03:15→18:11)
[2018-10-23 06:07] LABS: Hematocrit 34.9 % (39.0-51.0); Hemoglobin 11.8 gm/dL (13.0-17.0); Mean Corpuscular HGB Conc 33.9 % (32.0-36.0); Mean Corpuscular Hemoglobin 30.6 pg (27.0-34.0); Mean Corpuscular Volume 90.4 fL (80.0-100.0); Mean Platelet Volume 8.3 fL (7.0-11.0); Platelet Count 153 th/mm3 (150-450); Red Blood Count 3.86 mil/mm3 (4.50-5.90); Red Cell Distribution Width 16.7 % (11.6-17.2)
[2018-10-23 06:37] LABS: Calcium 8.2 mg/dL (8.5-10.1); Carbon Dioxide 30.9 meq/L (21.0-32.0)
--- NOTE | 2018-10-23 10:12 | P.PNURO ---
Subjective Patient symptoms today: Pt seen and examined. No complaints. Objective Vital Signs: Vital Signs 10/22/18 12:00 10/22/18 16:00 10/22/18 20:00 Temperature 99.4 F 98.5 F 98.9 F Pulse Rate 74 83 86 Respiratory Rate 20 20 20 Blood Pressure 113/59 L 106/57 L 117/57 L Pulse Oximetry 96 98 97 10/23/18 00:00 10/23/18 02:57 10/23/18 04:00 Temperature 98.2 F 98 F Pulse Rate 80 80 Respiratory Rate 20 18 20 Blood Pressure 117/61 116/58 L Pulse Oximetry 97 97 10/23/18 07:54 Temperature 98.8 F Pulse Rate 81 Respiratory Rate 20 Blood Pressure 113/58 L Pulse Oximetry 95 Intake & Output 10/22/18 10/23/18 10/23/18 18:59 06:59 18:59 Intake Total 730 / 730 100 / 100 Output Total 1200 / 1200 1200 / 1200 300 / 300 Balance -470 / -470 -1100 / -1100 -300 / -300 Weight 88.7 kg Intake: IV 100 / 100 INVanz Inj 1,000 MG In NS Inj 100 / 100 100 ML @ 200 mls/hr IV.SIG Q24H [facility] Rx#:[id number] Oral 730 / 730 Output: Urine 700 / 700 1200 / 1200 300 / 300 Urine Amount (Catheter) 500 / 500 Suprapubic 500 / 500 Other: # Voids 1 Date of Last Bowel Movement 10/22/18 10/22/18 Result Diagrams: 10/23/18 05:18 10/23/18 05:18 Medications and IVs: Active Medications Generic Name Dose Route Start Last Admin Trade Name Freq PRN Reason Stop Dose Admin Acetaminophen 650 mg 10/13/18 21:55 Tylenol PO Q4H PRN Temp > 100.4 Al Hydroxide/Mg Hydroxide 30 ml 10/13/18 21:55 Milk Of Magnesia Liq PO Q12H PRN Mild Constipation Bisacodyl 10 mg 10/13/18 21:55 Dulcolax Supp RECTAL DAILY PRN SEVERE CONSITIPATION Dextrose 50 ml 10/13/18 21:55 D50w Vial IV.PUSH UNSCH PRN PER HYPOGLYCEMIA PROTOCOL Ferrous Sulfate 325 mg 10/13/18 12:00 10/22/18 19:20 Ferosul PO 325 mg BID@1200,1700 [facility] Administration Glucagon 1 mg 10/13/18 21:55 Glucagon Inj OTHER PRN PRN for Hypoglycemia Protocol Ertapenem 1,000 mg/ Sodium 100 mls @ 200 mls/hr 10/14/18 18:00 10/22/18 19:49 Chloride IV.SIG Infused Q24H [facility] Infusion Insulin Aspart 0 unit 10/14/18 03:00 10/23/18 08:27 Novolog Insulin Correctional Sugar Inj SQ Not Given ACHS AND 3AM [facility] Protocol Insulin Human Isoph/Insulin Regular 12 units 10/13/18 08:00 10/23/18 08:27 Novolin 70/30 Inj SQ 12 units BID@0800,1700 [facility] Administration Lactulose 30 ml 10/13/18 21:55 Lactulose Liq PO DAILY PRN SEVERE CONSITIPATION Metformin HCl 1,000 mg 10/13/18 09:00 10/21/18 17:11 Glucophage PO 1,000 mg BIDPC [facility] Administration Ondansetron HCl 4 mg 10/13/18 21:55 Zofran Inj IV.PUSH Q6H PRN NAUSEA OR VOMITING Senna/Docusate Sodium 1 tab 10/14/18 09:00 10/20/18 22:01 Diane-Colace PO 1 tab BID [facility] Administration Sennosides 17.2 mg 10/13/18 21:55 Senokot PO Q12H PRN Moderate Constipation Sodium Chloride 2 ml 10/12/18 17:29 Ns Flush IV.FLUSH PRN PRN FLUSH AFTER USING IV ACCESS Objective Remarks: Abd: soft,nt,nd Wound: clean with some drainage 10/21 Abd:soft,nt,nd Wound: dressing in place SP tube in place 10/22 Abd:soft,nt,nd Wound: clean with some purulent drainage-wet/dry dressings placed SP tube changed at bedside 10/23 Abd:soft,nt,nd SP tube with clear urine Dressing in place Assessment and Plan - Plan 68y.o m with history as per HPI - No acute intervention - Keep SPT - Consult ID to help with management - wound management as per Wound care teat Remove displaced aneta - Daily dressing change, can apply antbx ointment - Contac Dr Cassidy for further management 10/19 68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 10/23 68 y.o male with h/o urethral cutaneous fistula s/p SP tube followed by multiple groin washouts with vac changes Continue Wet/dry dressing changes at bedside
[2018-10-23] MEDS: Ferrous Sulfate 325 MG Tablet PO SCH ×2 (12:20→17:49)
--- NOTE | 2018-10-23 14:21 | P.PN ---
Subjective Interval history: Patient seen and examined, no complaints today. Eating okay. Per nursing, today was weaker when PT got him out of bed. D/W pt at length, insisting on going home, "my nephew will help". Explained that he needs care during day and aggressive PT. After much discussion, he is agreeable to consider another SNF. No cp, no sob, no n/v. Stools loose via ostomy. Temp max 99.9 Physical Exam Vital signs: Vital Signs 10/22/18 16:00 10/22/18 20:00 10/23/18 00:00 Temperature 98.5 F 98.9 F 98.2 F Pulse Rate 83 86 80 Respiratory Rate 20 20 20 Blood Pressure 106/57 L 117/57 L 117/61 Pulse Oximetry 98 97 97 10/23/18 02:57 10/23/18 04:00 10/23/18 07:54 Temperature 98 F 98.8 F Pulse Rate 80 81 Respiratory Rate 18 20 20 Blood Pressure 116/58 L 113/58 L Pulse Oximetry 97 95 10/23/18 12:00 Temperature 99.9 F H Pulse Rate 85 Respiratory Rate 20 Blood Pressure 111/57 L Pulse Oximetry 98 Intake & Output 10/22/18 10/23/18 10/23/18 18:59 06:59 18:59 Intake Total 730 / 730 100 / 100 Output Total 1200 / 1200 1200 / 1200 775 / 775 Balance -470 / -470 -1100 / -1100 -775 / -775 Weight 88.7 kg Intake: IV 100 / 100 INVanz Inj 1,000 MG In NS Inj 100 / 100 100 ML @ 200 mls/hr IV.SIG Q24H [facility] Rx#:[id number] Oral 730 / 730 Output: Urine 700 / 700 1200 / 1200 775 / 775 Urine Amount (Catheter) 500 / 500 Suprapubic 500 / 500 Other: # Voids 1 Date of Last Bowel Movement 10/22/18 10/22/18 Narrative: GENERAL: 68-year-old male, does not appear in any distress. SKIN: Warm and dry. HEENT: Atraumatic. Normocephalic. EOMI. No scleral icterus. No injection or drainage. No nasal bleeding or discharge. Mucous membranes pink and moist. NECK: Trachea midline. CARDIOVASCULAR: Regular rate and rhythm. RESPIRATORY: No accessory muscle use. Clear to auscultation. Breath sounds equal bilaterally. GASTROINTESTINAL: Abdomen soft, non-tender, nondistended. +BS. +Ostomy in place -loose stool GENITOURINARY: +suprapubic catheter in place. +Left groin wound appears to be healing well, aneta have been removed. Packing in place. MUSCULOSKELETAL: Extremities without clubbing, cyanosis, or edema. Pedal pulses 2+. NEUROLOGICAL: Awake and alert. No obvious cranial nerve deficits. Able to move all extremities spontaneously, weaker to BLE 3-4/5 Nonfocal. Normal speech. PSYCHIATRIC: Flat affect; insight and judgment fair. - Urinary Catheter Management Suprapubic Cath placed during this visit: yes Reason for continuing: Acute urinary retention Insertion date: 10/13/18 Insertion time: 20:13 Results - Labs CBC & Chem 7: 10/23/18 05:18 10/23/18 05:18 Laboratory Results - last 24 hr 10/22/18 10/22/18 10/23/18 18:17 20:51 03:14 WBC RBC Hgb Hct MCV MCH MCHC RDW Plt Count MPV Sodium Potassium Chloride Carbon Dioxide Anion Gap BUN Creatinine Estimated GFR POC Glucose 129 H 117 H 111 H Random Glucose Calcium 10/23/18 10/23/18 10/23/18 05:18 05:18 07:57 WBC 7.0 RBC 3.86 L Hgb 11.8 L Hct 34.9 L MCV 90.4 MCH 30.6 MCHC 33.9 RDW 16.7 Plt Count 153 MPV 8.3 Sodium 136 Potassium 4.0 Chloride 101 Carbon Dioxide 30.9 Anion Gap 4 L BUN 26 H Creatinine 1.02 Estimated GFR 73 L POC Glucose 110 Random Glucose 97 Calcium 8.2 L 10/23/18 11:07 WBC RBC Hgb Hct MCV MCH MCHC RDW Plt Count MPV Sodium Potassium Chloride Carbon Dioxide Anion Gap BUN Creatinine Estimated GFR POC Glucose 162 H Random Glucose Calcium Assessment and Plan - Assessment (1) Non-healing open wound of left groin Code(s): S31.104A - Unspecified open wound of abdominal wall, left lower quadrant without penetration into peritoneal cavity, initial encounter Status : Acute (2) Physical deconditioning Code(s): R53.81 - Other malaise Status: Acute (3) Gait instability Code(s): R26.81 - Unsteadiness on feet Status: Acute (4) Open wound of groin Code(s): S31.109A - Unspecified open wound of abdominal wall, unspecified quadrant without penetration into peritoneal cavity, initial encounter Status : Acute (5) Risk for falls Code(s): Z91.81 - History of falling Status: Acute (6) Weakness Code(s): R53.1 - Weakness Status: Acute - Plan 68-year-old male with a past medical history significant for diabetes mellitus and recent hospitalization for severe sepsis presents to the emergency room after his home health nurse called EMS because she was concerned that the patient was unable to care for himself. Urethral cutaneous fistula/persistent left inguinal wound Status post suprapubic catheter placement and multiple washouts and wound VAC placement of left groin Left inguinal wound draining purulent material, concern for active infection -Previously had irrigation and washout multiple times, wound was closed with aneta up to the area of the groin and scrotal junction small sponge on top of the left hemiscrotum with VAC placement, VAC was removed when EMS got the patient. Wound care consulted, recommends dry abdominal pad, displaced aneta removed per urology. -Wound cx +Hafnia alvei and Morganella morganii, informed Dr. Coppola. Ertapenem will cover. -ID following, appreciate assistance -Urology following, appreciate assistance. Wound care for daily dressing changes. Suprapubic catheter changed 10/22, will need to be changed in/ another month. Continue with dressing changes. Urinary tract infection, catheter related infection Suprapubic cath in place -Urine culture positive for Klebsiella pn., ESBL (+), zosyn and vanco discontinued, recommended ertapenem x 14 days, to finish on October 27, 2018. Diarrhea, no loose stools noted in bag today -Hold stool softeners -Hold Metformin -stool cdiff negative Diabetes mellitus Blood glucose tightly controlled -Held metformin, may be contributing to diarrhea -Continue Accu-Cheks and coverage with insulin sliding scale -Continue NPH 70/30 12 units twice daily Physical deconditioning -Patient unable to care for himself at home -Case management consulted to assist with discharge planning. Psychiatry was consulted, patient has capacity to make medical decisions. -Continue with PT. Patient continues to refuse discharge to SNF. DCF involved. CM assisting with discharge planning. Reportedly, patient now has pad lock on his door. He does not know why. DCF went to investigate, nobody available. Per pt. nephew lives with him but works as construction management assistant. Left lateral foot ankle ulceration -Previous excision/biopsy of wound with skin plasty left lateral ankle, ostectomy left lateral malleolus on 09/13, no signs of infx -Dr. Christiansen followed prior, may reconsult if needed -Weight bearing as tolerated to the left LE Anemia, iron deficient -Continue ferrous sulfate DVT prop SCDs CBC and BMP in am Code Status: Full code Discussed Condition With: RN, pt, CM Discharge Planning: Can go to SNF, placement pending (1) Non-healing open wound of left groin Qualifiers: Encounter type: initial encounter Qualified Code(s): S31.104A - Unspecified open wound of abdominal wall, left lower quadrant without penetration into peritoneal cavity, initial encounter
[2018-10-23] MEDS: Acetaminophen 325 MG Tablet PO PRN (20:45)
[2018-10-24] MEDS: Insulin NovoLOG Aspart Correctional Sugar Inj SQ SCH ×6 (00:29→22:11)
--- NOTE | 2018-10-24 09:36 | P.PN ---
Subjective Interval history: Patient seen and examined, no complaints today. Eating breakfast, no n/v. No cp , no sob. Temp max overnight 101.5, this morning 100. No cough, no sputum. Has no complaints Physical Exam Vital signs: Vital Signs 10/23/18 12:00 10/23/18 15:54 10/23/18 20:00 Temperature 99.9 F H 98.6 F 101.5 F H Pulse Rate 85 78 94 H Respiratory Rate 20 16 18 Blood Pressure 111/57 L 116/56 L 115/55 L Pulse Oximetry 98 96 97 10/24/18 00:00 10/24/18 04:00 10/24/18 08:00 Temperature 99.5 F 98.2 F 100.0 F H Pulse Rate 76 69 79 Respiratory Rate 18 18 20 Blood Pressure 115/59 L 120/58 L 123/55 L Pulse Oximetry 97 100 95 Intake & Output 10/23/18 10/24/18 10/24/18 18:59 06:59 18:59 Intake Total 100 / 100 Output Total 1235 / 1235 900 / 900 250 / 250 Balance -1135 / -1135 -900 / -900 -250 / -250 Weight 88.7 kg Intake: IV 100 / 100 INVanz Inj 1,000 MG In NS Inj 100 / 100 100 ML @ 200 mls/hr IV.SIG Q24H [facility] Rx#:[id number] Output: Urine 775 / 775 900 / 900 250 / 250 Urine Amount (Catheter) 460 / 460 Suprapubic 460 / 460 Other: # Voids 1 1 Date of Last Bowel Movement 10/23/18 Narrative: GENERAL: 68-year-old male, does not appear in any distress. SKIN: Warm and dry. HEENT: Atraumatic. Normocephalic. EOMI. No scleral icterus. No injection or drainage. No nasal bleeding or discharge. Mucous membranes pink and moist. NECK: Trachea midline. CARDIOVASCULAR: Regular rate and rhythm. RESPIRATORY: No accessory muscle use. Clear to auscultation. Breath sounds equal bilaterally. GASTROINTESTINAL: Abdomen soft, non-tender, nondistended. +BS. +Ostomy in place -loose stool GENITOURINARY: +suprapubic catheter in place. +Left groin wound appears to be healing well, aneta have been removed. Packing in place. MUSCULOSKELETAL: Extremities without clubbing, cyanosis, or edema. Pedal pulses 2+. NEUROLOGICAL: Awake and alert. No obvious cranial nerve deficits. Able to move all extremities spontaneously, weaker to BLE 3-4/5 Nonfocal. Normal speech. PSYCHIATRIC: Flat affect; insight and judgment fair. - Urinary Catheter Management Suprapubic Cath placed during this visit: yes Reason for continuing: Acute urinary retention Insertion date: 10/13/18 Insertion time: 20:13 Results - Labs CBC & Chem 7: 10/23/18 05:18 10/23/18 05:18 Laboratory Results - last 24 hr 10/23/18 10/23/18 10/23/18 11:07 17:51 20:48 POC Glucose 162 H 165 H 184 H 10/24/18 10/24/18 04:53 07:32 POC Glucose 101 129 H Assessment and Plan - Assessment (1) Non-healing open wound of left groin Code(s): S31.104A - Unspecified open wound of abdominal wall, left lower quadrant without penetration into peritoneal cavity, initial encounter Status : Acute (2) Physical deconditioning Code(s): R53.81 - Other malaise Status: Acute (3) Gait instability Code(s): R26.81 - Unsteadiness on feet Status: Acute (4) Open wound of groin Code(s): S31.109A - Unspecified open wound of abdominal wall, unspecified quadrant without penetration into peritoneal cavity, initial encounter Status : Acute (5) Risk for falls Code(s): Z91.81 - History of falling Status: Acute (6) Weakness Code(s): R53.1 - Weakness Status: Acute - Plan 68-year-old male with a past medical history significant for diabetes mellitus and recent hospitalization for severe sepsis presents to the emergency room after his home health nurse called EMS because she was concerned that the patient was unable to care for himself. Urethral cutaneous fistula/persistent left inguinal wound Status post suprapubic catheter placement and multiple washouts and wound VAC placement of left groin Left inguinal wound draining purulent material, concern for active infection -Previously had irrigation and washout multiple times, wound was closed with aneta up to the area of the groin and scrotal junction small sponge on top of the left hemiscrotum with VAC placement, VAC was removed when EMS got the patient. Wound care consulted, recommends dry abdominal pad, displaced aneta removed per urology. -Wound cx +Hafnia alvei and Morganella morganii, informed Dr. Coppola. Ertapenem will cover. -ID following, appreciate assistance -Urology following, appreciate assistance. Wound care for daily dressing changes. Suprapubic catheter changed 10/22, will need to be changed in/ another month. Continue with dressing changes. Urinary tract infection, catheter related infection Suprapubic cath in place -Urine culture positive for Klebsiella pn., ESBL (+), zosyn and vanco discontinued, recommended ertapenem x 14 days, to finish on October 27, 2018. -spiking fevers, T max overnight 101.5. Reconsult ID, d/w Dr. Coppola Diarrhea, no loose stools noted in bag today -Hold stool softeners -Hold Metformin -stool cdiff negative Diabetes mellitus Blood glucose tightly controlled -Held metformin, may be contributing to diarrhea -Continue Accu-Cheks and coverage with insulin sliding scale -Continue NPH 70/30 12 units twice daily Physical deconditioning -Patient unable to care for himself at home -Case management consulted to assist with discharge planning. Psychiatry was consulted, patient has capacity to make medical decisions. -Continue with PT. Patient continues to refuse discharge to SNF. DCF involved. CM assisting with discharge planning. Reportedly, patient now has pad lock on his door. He does not know why. DCF went to investigate, nobody available. Per pt. nephew lives with him but works as construction mgr. Left lateral foot ankle ulceration -Previous excision/biopsy of wound with skin plasty left lateral ankle, ostectomy left lateral malleolus on 09/13, no signs of infx -Dr. Christiansen followed prior, may reconsult if needed -Weight bearing as tolerated to the left LE Anemia, iron deficient -Continue ferrous sulfate DVT prop SCDs Code Status: Full code Discussed Condition With: RN, pt, CM Discharge Planning: Can go to SNF, placement pending (1) Non-healing open wound of left groin Qualifiers: Encounter type: initial encounter Qualified Code(s): S31.104A - Unspecified open wound of abdominal wall, left lower quadrant without penetration into peritoneal cavity, initial encounter
[2018-10-24 10:51] LABS: Bilirubin,Urine Negative (Negative); Clarity,Urine Clear (Clear); Color,Urine Yellow (Yellw/Straw); Glucose,Urine (UA) Negative (Negative); Leukocyte Esterase,Urine Small (Negative); Mucus,Urine Few /lpf (Occasional); Nitrite,Urine Negative (Negative); Specific Gravity,Urine 1.015 (1.002-1.035)
--- NOTE | 2018-10-24 11:11 | XR ---
EXAM DATE: 10/24/2018 11:02 AM EST AGE/SEX: 68 years / Male INDICATIONS: Cough. CLINICAL DATA: This is the patient's initial encounter. Patient reports that signs and symptoms have been present for 1 day and indicates a pain score of 0/10. MEDICAL/SURGICAL HISTORY: None. None. COMPARISON: [facility] [place] 2V PA&LAT, 10/12/2018. . FINDINGS: A single AP view of the chest demonstrates the lungs to be symmetrically aerated without evidence of mass, infiltrate or effusion. The cardiomediastinal contours are unremarkable. Osseous structures a re intact. CONCLUSION: No acute intrathoracic disease. Stable examination. Electronically signed by: Bronson Blas MD 10/24/2018 11:09 AM EST
[2018-10-24] MEDS: Ferrous Sulfate 325 MG Tablet PO SCH ×2 (12:47→18:06)
[2018-10-24] MEDS: Acetaminophen 325 MG Tablet PO PRN (19:02)
--- NOTE | 2018-10-24 19:49 | P.PNADD ---
Addendum to Inpatient Note Additional information: reconsulted 2/2 new fever pt seen examined around 1800 full note to follow
--- NOTE | 2018-10-24 23:56 | P.PNID ---
Subjective Remarks: reconsulted 2/2 fever no central lines no diarrhea + liquid stool, small amount c.diff negative Antibiotics: ertapenem Allergies/Adverse Reactions: Allergies Influenza Virus Vaccines Allergy (Severe, Verified 08/28/18 12:12) Anaphylaxis *MDRO Multi-Drug Resistant Organism Adverse Reaction (Unknown, Uncoded 08/28/18 12:12) Flushing 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 Objective Vital Signs 10/24/18 00:00 10/24/18 04:00 10/24/18 08:00 Temperature 99.5 F 98.2 F 100.0 F H Pulse Rate 76 69 79 Respiratory Rate 18 18 20 Blood Pressure 115/59 L 120/58 L 123/55 L Pulse Oximetry 97 100 95 10/24/18 12:00 10/24/18 16:00 10/24/18 21:00 Temperature 99.7 F H 100.8 F H 99.6 F Pulse Rate 81 79 83 Respiratory Rate 20 18 20 Blood Pressure 110/58 L 114/63 115/60 Pulse Oximetry 96 96 97 Intake & Output 10/24/18 10/24/18 10/25/18 06:59 18:59 06:59 Intake Total 100 / 100 Output Total 900 / 900 950 / 950 Balance -900 / -900 -850 / -850 Weight 88.7 kg Intake: IV 100 / 100 INVanz Inj 1,000 MG In NS Inj 100 / 100 100 ML @ 200 mls/hr IV.SIG Q24H [facility] Rx#:[id number] Output: Urine 900 / 900 950 / 950 Other: # Voids 1 10/24/18 10:40 Blood - Peripheral Aerobic Blood Culture - Pending 10/24/18 10:40 Blood - Peripheral Anaerobic Blood Culture - Pending 10/24/18 10:46 Blood - Peripheral Aerobic Blood Culture - Pending 10/24/18 10:46 Blood - Peripheral Anaerobic Blood Culture - Pending Lab - Hematology Results 10/23/18 05:18 WBC 7.0 RBC 3.86 L Hgb 11.8 L Hct 34.9 L MCV 90.4 MCH 30.6 MCHC 33.9 RDW 16.7 Plt Count 153 MPV 8.3 Lab - Chemistry Results 10/23/18 10/23/18 10/23/18 03:14 05:18 07:57 Sodium 136 Potassium 4.0 Chloride 101 Carbon Dioxide 30.9 Anion Gap 4 L BUN 26 H Creatinine 1.02 Estimated GFR 73 L POC Glucose 111 H 110 Random Glucose 97 Calcium 8.2 L 10/23/18 10/23/18 10/23/18 11:07 17:51 20:48 Sodium Potassium Chloride Carbon Dioxide Anion Gap BUN Creatinine Estimated GFR POC Glucose 162 H 165 H 184 H Random Glucose Calcium 10/24/18 10/24/18 10/24/18 04:53 07:32 11:48 Sodium Potassium Chloride Carbon Dioxide Anion Gap BUN Creatinine Estimated GFR POC Glucose 101 129 H 205 H Random Glucose Calcium 10/24/18 10/24/18 16:54 20:19 Sodium Potassium Chloride Carbon Dioxide Anion Gap BUN Creatinine Estimated GFR POC Glucose 143 H 133 H Random Glucose Calcium Imaging: ITS Impressions Chest X-Ray 10/24/18 10:12 CONCLUSION: No acute intrathoracic disease. Stable examination. Physical Exam: GENERAL: NAD chronically ill appearing SKIN: Warm and dry. HEAD: Atraumatic. Normocephalic. EYES: Pupils equal and round. No scleral icterus. No injection or drainage. ENT: No nasal bleeding or discharge. Mucous membranes pink and moist. NECK: Trachea midline. No JVD. CARDIOVASCULAR: Regular rate and rhythm. RESPIRATORY: No accessory muscle use. Clear to auscultation. Breath sounds equal bilaterally. GASTROINTESTINAL: Abdomen soft, non-tender, nondistended. Hepatic and splenic margins not palpable. LLQ with stoma in pklce, pink small amount of liquid brown stool ; SP cath in place Packing in L groin in place MUSCULOSKELETAL: Extremities without clubbing, cyanosis, or edema. No obvious deformities. NEUROLOGICAL: Awake and alert. No obvious cranial nerve deficits. Motor grossly within normal limits. Five out of 5 muscle strength in the arms and legs. Normal speech. PSYCHIATRIC: Appropriate mood and affect; insight and judgment normal. Assessment and Plan - Plan Complicated UTI, ESBL+ E.coli Pt with urocutaneous fstula H/o [place] New fever Repaeat urine negative Chk BC Ertapenem x 14 days fu clinically
[2018-10-25] MEDS: Insulin NovoLOG Aspart Correctional Sugar Inj SQ SCH ×5 (04:46→20:12)
--- NOTE | 2018-10-25 11:21 | P.PN ---
Subjective Interval history: Pt. seen and examined, no temp overnight. No chills, no cough, no sputum. Eating okay. Physical Exam Vital signs: Vital Signs 10/24/18 12:00 10/24/18 16:00 10/24/18 21:00 Temperature 99.7 F H 100.8 F H 99.6 F Pulse Rate 81 79 83 Respiratory Rate 20 18 20 Blood Pressure 110/58 L 114/63 115/60 Pulse Oximetry 96 96 97 10/25/18 00:00 10/25/18 04:00 10/25/18 07:36 Temperature 98.2 F 97.7 F Pulse Rate 76 71 Respiratory Rate 18 20 16 Blood Pressure 110/55 L 102/59 L Pulse Oximetry 96 99 10/25/18 07:55 Temperature 98.2 F Pulse Rate 75 Respiratory Rate 15 Blood Pressure 112/61 Pulse Oximetry 97 Intake & Output 10/24/18 10/25/18 10/25/18 18:59 06:59 18:59 Intake Total 100 / 100 120 / 120 Output Total 950 / 950 1000 / 1000 500 / 500 Balance -850 / -850 -880 / -880 -500 / -500 Weight 85.6 kg Intake: IV 100 / 100 INVanz Inj 1,000 MG In NS Inj 100 / 100 100 ML @ 200 mls/hr IV.SIG Q24H [facility] Rx#:[id number] Oral 120 / 120 Output: Urine 950 / 950 1000 / 1000 500 / 500 Other: # Voids 1 1 Date of Last Bowel Movement 10/24/18 Narrative: GENERAL: 68-year-old male, does not appear in any distress. SKIN: Warm and dry. HEENT: Atraumatic. Normocephalic. EOMI. No scleral icterus. No injection or drainage. No nasal bleeding or discharge. Mucous membranes pink and moist. NECK: Trachea midline. CARDIOVASCULAR: Regular rate and rhythm. RESPIRATORY: No accessory muscle use. Clear to auscultation. Breath sounds equal bilaterally. GASTROINTESTINAL: Abdomen soft, non-tender, nondistended. +BS. +Ostomy in place -loose stool GENITOURINARY: +suprapubic catheter in place. +Left groin wound appears to be healing well, aneta have been removed. Packing in place. MUSCULOSKELETAL: Extremities without clubbing, cyanosis, or edema. Pedal pulses 2+. NEUROLOGICAL: Awake and alert. No obvious cranial nerve deficits. Able to move all extremities spontaneously, weaker to BLE 3-4/5 Nonfocal. Normal speech. PSYCHIATRIC: Flat affect; insight and judgment fair. - Urinary Catheter Management Suprapubic Cath placed during this visit: yes Reason for continuing: Severe pressure ulcer/wound Insertion date: 10/13/18 Insertion time: 20:13 Results - Labs CBC & Chem 7: 10/23/18 05:18 10/23/18 05:18 Laboratory Results - last 24 hr 10/24/18 10/24/18 10/24/18 11:48 16:54 20:19 POC Glucose 205 H 143 H 133 H 10/25/18 10/25/18 04:35 07:46 POC Glucose 178 H 148 H Microbiology 10/24/18 10:40 Blood - Peripheral Aerobic Blood Culture - Preliminary No growth in 1 day 10/24/18 10:40 Blood - Peripheral Anaerobic Blood Culture - Preliminary No growth in 1 day 10/24/18 10:46 Blood - Peripheral Aerobic Blood Culture - Preliminary No growth in 1 day 10/24/18 10:46 Blood - Peripheral Anaerobic Blood Culture - Preliminary No growth in 1 day Assessment and Plan - Assessment (1) Non-healing open wound of left groin Code(s): S31.104A - Unspecified open wound of abdominal wall, left lower quadrant without penetration into peritoneal cavity, initial encounter Status : Acute (2) Physical deconditioning Code(s): R53.81 - Other malaise Status: Acute (3) Gait instability Code(s): R26.81 - Unsteadiness on feet Status: Acute (4) Open wound of groin Code(s): S31.109A - Unspecified open wound of abdominal wall, unspecified quadrant without penetration into peritoneal cavity, initial encounter Status : Acute (5) Risk for falls Code(s): Z91.81 - History of falling Status: Acute (6) Weakness Code(s): R53.1 - Weakness Status: Acute - Plan 68-year-old male with a past medical history significant for diabetes mellitus and recent hospitalization for severe sepsis presents to the emergency room after his home health nurse called EMS because she was concerned that the patient was unable to care for himself. Urethral cutaneous fistula/persistent left inguinal wound Status post suprapubic catheter placement and multiple washouts and wound VAC placement of left groin Left inguinal wound draining purulent material, concern for active infection -Previously had irrigation and washout multiple times, wound was closed with aneta up to the area of the groin and scrotal junction small sponge on top of the left hemiscrotum with VAC placement, VAC was removed when EMS got the patient. Wound care consulted, recommends dry abdominal pad, displaced aneta removed per urology. -Wound cx +Hafnia alvei and Morganella morganii, informed Dr. Coppola. Ertapenem will cover. -ID following, appreciate assistance -Urology following, appreciate assistance. Wound care for daily dressing changes. Suprapubic catheter changed 10/22, will need to be changed in/ another month. Continue with dressing changes. Urinary tract infection, catheter related infection Suprapubic cath in place -Urine culture positive for Klebsiella pn., ESBL (+), zosyn and vanco discontinued, recommended ertapenem x 14 days, to finish on October 27, 2018. -recurrent fevers, ID reconsulted, input appreciated. -repeat BC 10/24 no growth, UA infection resolving, UC not recommended. CXR no acute findings. Diarrhea, no loose stools noted in bag today -Hold stool softeners -Hold Metformin -stool cdiff negative Diabetes mellitus Blood glucose tightly controlled -Held metformin, may be contributing to diarrhea -Continue Accu-Cheks and coverage with insulin sliding scale -Continue NPH 70/30 12 units twice daily Physical deconditioning -Patient unable to care for himself at home -Case management consulted to assist with discharge planning. Psychiatry was consulted, patient has capacity to make medical decisions. -DCF following, pt. not a safe dc home as nephew not available all the time to help. Pt. finally agreeable with SNF. Left lateral foot ankle ulceration -Previous excision/biopsy of wound with skin plasty left lateral ankle, ostectomy left lateral malleolus on 09/13, no signs of infx -Dr. Christiansen followed prior, may reconsult if needed -Weight bearing as tolerated to the left LE Anemia, iron deficient -Continue ferrous sulfate DVT prop SCDs CM following, SNF pending Code Status: Full code Discussed Condition With: RN, pt, CM Discharge Planning: Can go to SNF, placement pending (1) Non-healing open wound of left groin Qualifiers: Encounter type: initial encounter Qualified Code(s): S31.104A - Unspecified open wound of abdominal wall, left lower quadrant without penetration into peritoneal cavity, initial encounter
[2018-10-25] MEDS: Ferrous Sulfate 325 MG Tablet PO SCH ×2 (12:51→18:05)
[2018-10-26] MEDS: Insulin NovoLOG Aspart Correctional Sugar Inj SQ SCH ×5 (03:16→21:35)
[2018-10-26] MEDS: Ferrous Sulfate 325 MG Tablet PO SCH ×2 (12:50→18:27)
--- NOTE | 2018-10-26 15:11 | P.PN ---
Subjective Interval history: Patient seen and examined, no acute changes overnight. No fever. Stools soft and colostomy. Denies any pain. Physical Exam Vital signs: Vital Signs 10/25/18 16:00 10/25/18 20:00 10/26/18 00:00 Temperature 97.8 F 99.5 F 97.7 F Pulse Rate 78 75 79 Respiratory Rate 20 18 18 Blood Pressure 108/56 L 117/57 L 119/55 L Pulse Oximetry 95 95 97 10/26/18 04:00 10/26/18 07:53 10/26/18 11:47 Temperature 97.4 F L 97.7 F 98.3 F Pulse Rate 73 71 71 Respiratory Rate 18 15 20 Blood Pressure 110/56 L 104/55 L 103/55 L Pulse Oximetry 97 96 98 Intake & Output 10/25/18 10/26/18 10/26/18 18:59 06:59 18:59 Intake Total 100 / 100 Output Total 1400 / 1400 900 / 900 225 / 225 Balance -1400 / -1400 -800 / -800 -225 / -225 Weight 85.6 kg Intake: IV 100 / 100 INVanz Inj 1,000 MG In NS Inj 100 / 100 100 ML @ 200 mls/hr IV.SIG Q24H [facility] Rx#:[id number] Output: Urine 1400 / 1400 900 / 900 225 / 225 Other: # Voids 2 1 Date of Last Bowel Movement 10/25/18 10/26/18 Narrative: GENERAL: 68-year-old male, does not appear in any distress. SKIN: Warm and dry. HEENT: Atraumatic. Normocephalic. EOMI. No scleral icterus. No injection or drainage. No nasal bleeding or discharge. Mucous membranes pink and moist. NECK: Trachea midline. CARDIOVASCULAR: Regular rate and rhythm. RESPIRATORY: No accessory muscle use. Clear to auscultation. Breath sounds equal bilaterally. GASTROINTESTINAL: Abdomen soft, non-tender, nondistended. +BS. +Ostomy in place -soft stool GENITOURINARY: +suprapubic catheter in place. +Left groin wound appears to be healing well, aneta have been removed. Packing in place. MUSCULOSKELETAL: Extremities without clubbing, cyanosis, or edema. Pedal pulses 2+. NEUROLOGICAL: Awake and alert. No obvious cranial nerve deficits. Able to move all extremities spontaneously, weaker to BLE 3-4/5 Nonfocal. Normal speech. PSYCHIATRIC: Flat affect; insight and judgment fair. - Urinary Catheter Management Suprapubic Cath placed during this visit: yes Reason for continuing: Severe pressure ulcer/wound Insertion date: 10/13/18 Insertion time: 20:13 Results - Labs CBC & Chem 7: 10/23/18 05:18 10/23/18 05:18 Laboratory Results - last 24 hr 10/25/18 10/25/18 10/26/18 17:18 19:59 03:14 POC Glucose 185 H 236 H 155 H 10/26/18 10/26/18 07:57 12:36 POC Glucose 153 H 139 H Microbiology 10/24/18 10:40 Blood - Peripheral Aerobic Blood Culture - Preliminary No growth in 2 days 10/24/18 10:40 Blood - Peripheral Anaerobic Blood Culture - Preliminary No growth in 2 days 10/24/18 10:46 Blood - Peripheral Aerobic Blood Culture - Preliminary No growth in 2 days 10/24/18 10:46 Blood - Peripheral Anaerobic Blood Culture - Preliminary No growth in 2 days Assessment and Plan - Assessment (1) Non-healing open wound of left groin Code(s): S31.104A - Unspecified open wound of abdominal wall, left lower quadrant without penetration into peritoneal cavity, initial encounter Status : Acute (2) Physical deconditioning Code(s): R53.81 - Other malaise Status: Acute (3) Gait instability Code(s): R26.81 - Unsteadiness on feet Status: Acute (4) Open wound of groin Code(s): S31.109A - Unspecified open wound of abdominal wall, unspecified quadrant without penetration into peritoneal cavity, initial encounter Status : Acute (5) Risk for falls Code(s): Z91.81 - History of falling Status: Acute (6) Weakness Code(s): R53.1 - Weakness Status: Acute - Plan 68-year-old male with a past medical history significant for diabetes mellitus and recent hospitalization for severe sepsis presents to the emergency room after his home health nurse called EMS because she was concerned that the patient was unable to care for himself. Urethral cutaneous fistula/persistent left inguinal wound Status post suprapubic catheter placement and multiple washouts and wound VAC placement of left groin Left inguinal wound draining purulent material, concern for active infection -Previously had irrigation and washout multiple times, wound was closed with aneta up to the area of the groin and scrotal junction small sponge on top of the left hemiscrotum with VAC placement, VAC was removed when EMS got the patient. Wound care consulted, recommends dry abdominal pad, displaced aneta removed per urology. -Wound cx +Hafnia alvei and Morganella morganii, informed Dr. Coppola. Ertapenem will cover. -ID following, appreciate assistance -Urology following, appreciate assistance. Wound care for daily dressing changes. Suprapubic catheter changed 10/22, will need to be changed in/ another month. Continue with dressing changes. Urinary tract infection, catheter related infection Suprapubic cath in place -Urine culture positive for Klebsiella pn., ESBL (+), zosyn and vanco discontinued, recommended ertapenem x 14 days, to finish on October 27, 2018. -recurrent fevers, ID reconsulted, input appreciated. -repeat BC 10/24 no growth, UA infection resolving, UC not recommended. CXR no acute findings. -has been afebrile, bc negative so far. Will obtain final rec. from ID Diarrhea, no loose stools noted in bag today -Hold stool softeners -Hold Metformin -stool cdiff negative Diabetes mellitus Blood glucose tightly controlled -Held metformin, may be contributing to diarrhea -Continue Accu-Cheks and coverage with insulin sliding scale -Continue NPH 70/30 12 units twice daily Physical deconditioning -Patient unable to care for himself at home -Case management consulted to assist with discharge planning. Psychiatry was consulted, patient has capacity to make medical decisions. -DCF following, pt. not a safe dc home as nephew not available all the time to help. Pt. finally agreeable with SNF. Left lateral foot ankle ulceration -Previous excision/biopsy of wound with skin plasty left lateral ankle, ostectomy left lateral malleolus on 09/13, no signs of infx -Dr. Christiansen followed prior, may reconsult if needed -Weight bearing as tolerated to the left LE Anemia, iron deficient -Continue ferrous sulfate DVT prop SCDs Accepted at [facility], waiting for insurance auth. Code Status: Full code Discussed Condition With: RN, pt, CM Discharge Planning: Can go to [facility] accepted, waiting for auth (1) Non-healing open wound of left groin Qualifiers: Encounter type: initial encounter Qualified Code(s): S31.104A - Unspecified open wound of abdominal wall, left lower quadrant without penetration into peritoneal cavity, initial encounter
[2018-10-27] MEDS: Insulin NovoLOG Aspart Correctional Sugar Inj SQ SCH ×5 (02:42→20:55)
--- NOTE | 2018-10-27 11:15 | P.PNIM ---
Subjective Interval history: Follow-up visit DM2, sepsis UTI catheter related, ureteral cutaneous fistula, persistent left inguinal wound, suprapubic catheter. Patient seen and examined today. Reports he is doing well ambulating inside her room. Denies pain and discomfort. Denies SOB/ dyspnea. Denies chest pain, palpitations, headaches, dizziness. Denies fevers, chills, n/v. States his ostomy bag has always been liquid to semi-formed stools ever since it was placed and has not noted any changes. Physical Exam Vital signs: Vital Signs 10/26/18 11:47 10/26/18 16:00 10/26/18 19:20 Temperature 98.3 F 98.0 F 98.0 F Pulse Rate 71 69 78 Respiratory Rate 20 16 18 Blood Pressure 103/55 L 101/55 L 107/55 L Pulse Oximetry 98 97 97 10/27/18 00:00 10/27/18 04:00 10/27/18 08:00 Temperature 97.3 F L 97.4 F L 98.7 F Pulse Rate 75 73 65 Respiratory Rate 18 16 20 Blood Pressure 134/62 111/56 L 122/61 Pulse Oximetry 98 97 99 Intake & Output 10/26/18 10/27/18 10/27/18 18:59 06:59 18:59 Intake Total 600 / 600 Output Total 1974 900 / 900 Balance -1974 / -1974 -300 / -300 Weight 84.6 kg Intake: IV 100 / 100 INVanz Inj 1,000 MG In NS Inj 100 / 100 100 ML @ 200 mls/hr IV.SIG Q24H [facility] Rx#:[id number] Oral 500 / 500 Output: Urine 1175 / 1175 Urine Amount (Catheter) 800 / 800 900 / 900 Suprapubic 800 / 800 900 / 900 Other: # Voids 1 Date of Last Bowel Movement 10/26/18 10/26/18 10/27/18 Narrative: GENERAL: This is a well-nourished, well-developed patient, in no apparent distress. SKIN: Warm and dry. +Left groin wound, aneta have been removed. Packing in place. HEENT: Normocephalic. Pupils equal round and reactive. Nose without bleeding. Airway patent. NECK: Trachea midline. CARDIOVASCULAR: Regular rate and rhythm without murmurs, gallops, or rubs. RESPIRATORY: Clear to auscultation. Breath sounds equal bilaterally. No wheezes , rales, or rhonchi. GASTROINTESTINAL: Abdomen soft, non-tender, nondistended. Bowel Sounds normoactive x4. +Ostomy in place-soft stool. : Suprapubic catheter in place draining yellow urine MUSCULOSKELETAL: Extremities without clubbing, cyanosis, or edema. Cool RLE than LLE NEUROLOGICAL: Awake and alert. No focal neuro deficit. Moves all extremities. Normal speech. - Urinary Catheter Management Suprapubic Cath placed during this visit: yes Reason for continuing: Chronic Urinary Retention Insertion date: 10/13/18 Insertion time: 20:13 Results - Labs CBC & Chem 7: 10/23/18 05:18 10/23/18 05:18 Laboratory Results - last 24 hr 10/26/18 10/26/18 10/26/18 12:36 18:18 21:27 POC Glucose 139 H 248 H 184 H 10/27/18 10/27/18 02:36 07:04 POC Glucose 194 H 140 H Microbiology 10/24/18 10:40 Blood - Peripheral Aerobic Blood Culture - Preliminary No growth in 3 days 10/24/18 10:40 Blood - Peripheral Anaerobic Blood Culture - Preliminary No growth in 3 days 10/24/18 10:46 Blood - Peripheral Aerobic Blood Culture - Preliminary No growth in 3 days 10/24/18 10:46 Blood - Peripheral Anaerobic Blood Culture - Preliminary No growth in 3 days Assessment and Plan - Assessment (1) Non-healing open wound of left groin Code(s): S31.104A - Unspecified open wound of abdominal wall, left lower quadrant without penetration into peritoneal cavity, initial encounter Status : Acute (2) Physical deconditioning Code(s): R53.81 - Other malaise Status: Acute (3) Gait instability Code(s): R26.81 - Unsteadiness on feet Status: Acute (4) Open wound of groin Code(s): S31.109A - Unspecified open wound of abdominal wall, unspecified quadrant without penetration into peritoneal cavity, initial encounter Status : Acute (5) Risk for falls Code(s): Z91.81 - History of falling Status: Acute (6) Weakness Code(s): R53.1 - Weakness Status: Acute - Plan 68-year-old male with a past medical history significant for diabetes mellitus and recent hospitalization for severe sepsis presents to the emergency room after his home health nurse called EMS because she was concerned that the patient was unable to care for himself. Urethral cutaneous fistula/persistent left inguinal wound Status post suprapubic catheter placement and multiple washouts and wound VAC placement of left groin Left inguinal wound draining purulent material, concern for active infection -Previously had irrigation and washout multiple times, wound was closed with aneta up to the area of the groin and scrotal junction small sponge on top of the left hemiscrotum with VAC placement, VAC was removed when EMS got the patient -Vancomycin/Zosyn after wound and blood cultures collected, pending results -Wound cx +Hafnia alvei and Morganella morganii, informed Dr. Coppola. Ertapenem will cover. -ID following, appreciate assistance -Urology following, appreciate assistance. Wound care for daily dressing changes. Suprapubic catheter changed 10/22, will need to be changed in/ another month. Continue with dressing changes. Urinary tract infection, catheter related infection Suprapubic cath in place -Urine culture positive for gram-negative rods -Cultures came back, Klebsiella pneumonia ESBL positive, zosyn and vanco discontinued, recommended ertapenem x 14 days, to finish on October 27, 2018. -Repeat BC 10/24 no growth, UA infection resolving, UC not recommended. CXR no acute findings. -has been afebrile, bc negative so far. Will obtain final rec. from ID Diabetes mellitus -Sliding scale insulin, Metformin held due to diarrhea. Will restart at lower dose 500mg BID -Monitor blood glucose, NPH 70 3012 units twice daily -Diabetic diet Physical deconditioning -Patient unable to care for himself at home -Case management consulted to assist with discharge planning, possible SNF -DCF following, pt. not a safe dc home as nephew not available all the time to help. Agreeable with SNF. Left lateral foot ankle ulceration -Previous excision/biopsy of wound with skin plasty left lateral ankle, ostectomy left lateral malleolus on 09/13, no signs of infx -Dr. Christiansen followed prior, may reconsult if needed -Weight bearing as tolerated to the left LE Anemia, iron deficient -Continue ferrous sulfate DVT prop SCDs CODE STATUS full code Discussed with patient, nursing Discharge Planning: SNF Placement. CM Following (1) Non-healing open wound of left groin Qualifiers: Encounter type: initial encounter Qualified Code(s): S31.104A - Unspecified open wound of abdominal wall, left lower quadrant without penetration into peritoneal cavity, initial encounter
[2018-10-27] MEDS: Ferrous Sulfate 325 MG Tablet PO SCH ×2 (11:54→17:21)
[2018-10-28] MEDS: Insulin NovoLOG Aspart Correctional Sugar Inj SQ SCH ×4 (02:49→17:11)
--- NOTE | 2018-10-28 10:35 | P.PNIM ---
Subjective Interval history: Follow-up visit DM2, sepsis UTI catheter related, ureteral cutaneous fistula, persistent left inguinal wound, suprapubic catheter. Patient seen and examined today. Reports something is wrong with his groin. States it is leaking. Denies SOB/ dyspnea. Denies chest pain, palpitations, headaches, dizziness. Denies fevers, chills, n/v. Physical Exam Vital signs: Vital Signs 10/27/18 12:00 10/27/18 16:15 10/27/18 20:00 Temperature 98 F 98.3 F 98.1 F Pulse Rate 71 75 74 Respiratory Rate 20 20 20 Blood Pressure 90/56 L 119/56 L 125/61 Pulse Oximetry 99 99 97 10/28/18 00:00 10/28/18 04:00 10/28/18 07:00 Temperature 97.3 F L 97.3 F L Pulse Rate 67 62 Respiratory Rate 18 17 12 Blood Pressure 108/56 L 106/57 L Pulse Oximetry 97 97 10/28/18 07:50 Temperature 97.0 F L Pulse Rate 61 Respiratory Rate 20 Blood Pressure 134/63 Pulse Oximetry 98 Intake & Output 10/27/18 10/28/18 10/28/18 18:59 06:59 18:59 Intake Total 100 / 100 Output Total 575 / 575 1350 / 1350 Balance -475 / -475 -1350 / -1350 Weight 84 kg Intake: IV 100 / 100 INVanz Inj 1,000 MG In NS Inj 100 / 100 100 ML @ 200 mls/hr IV.SIG Q24H [facility] Rx#:[id number] Output: Urine 575 / 575 Urine Amount (Catheter) 1350 / 1350 Suprapubic 1350 / 1350 Other: # Voids 2 Date of Last Bowel Movement 10/27/18 10/27/18 Narrative: GENERAL: This is a well-nourished, well-developed patient, in no apparent distress. SKIN: Warm and dry. +Left groin wound, wound bed pink and clean, wound is deep. Packing in place. HEENT: Normocephalic. Pupils equal round and reactive. Nose without bleeding. Airway patent. NECK: Trachea midline. CARDIOVASCULAR: Regular rate and rhythm without murmurs, gallops, or rubs. RESPIRATORY: Clear to auscultation. Breath sounds equal bilaterally. No wheezes , rales, or rhonchi. GASTROINTESTINAL: Abdomen soft, non-tender, nondistended. Bowel Sounds normoactive x4. +Ostomy in place-soft stool. : Suprapubic catheter in place draining yellow urine MUSCULOSKELETAL: Extremities without clubbing, cyanosis, or edema. Cool RLE than LLE NEUROLOGICAL: Awake and alert. No focal neuro deficit. Moves all extremities. Normal speech. - Urinary Catheter Management Suprapubic Cath placed during this visit: yes Reason for continuing: Chronic Urinary Retention Insertion date: 10/13/18 Insertion time: 20:13 Results - Labs CBC & Chem 7: 10/23/18 05:18 10/23/18 05:18 Laboratory Results - last 24 hr 10/27/18 10/27/18 10/27/18 11:53 17:12 20:45 POC Glucose 159 H 159 H 166 H 10/28/18 10/28/18 02:45 08:07 POC Glucose 163 H 149 H Microbiology 10/24/18 10:40 Blood - Peripheral Aerobic Blood Culture - Preliminary No growth in 3 days 10/24/18 10:40 Blood - Peripheral Anaerobic Blood Culture - Preliminary No growth in 3 days 10/24/18 10:46 Blood - Peripheral Aerobic Blood Culture - Preliminary No growth in 3 days 10/24/18 10:46 Blood - Peripheral Anaerobic Blood Culture - Preliminary No growth in 3 days Assessment and Plan - Assessment (1) Non-healing open wound of left groin Code(s): S31.104A - Unspecified open wound of abdominal wall, left lower quadrant without penetration into peritoneal cavity, initial encounter Status : Acute (2) Physical deconditioning Code(s): R53.81 - Other malaise Status: Acute (3) Gait instability Code(s): R26.81 - Unsteadiness on feet Status: Acute (4) Open wound of groin Code(s): S31.109A - Unspecified open wound of abdominal wall, unspecified quadrant without penetration into peritoneal cavity, initial encounter Status : Acute (5) Risk for falls Code(s): Z91.81 - History of falling Status: Acute (6) Weakness Code(s): R53.1 - Weakness Status: Acute - Plan 68-year-old male with a past medical history significant for diabetes mellitus and recent hospitalization for severe sepsis presents to the emergency room after his home health nurse called EMS because she was concerned that the patient was unable to care for himself. Urethral cutaneous fistula/persistent left inguinal wound Status post suprapubic catheter placement and multiple washouts and wound VAC placement of left groin Left inguinal wound draining purulent material, concern for active infection -Previously had irrigation and washout multiple times, wound was closed with aneta up to the area of the groin and scrotal junction small sponge on top of the left hemiscrotum with VAC placement, VAC was removed when EMS got the patient -Vancomycin/Zosyn after wound and blood cultures collected, pending results -Wound cx +Hafnia alvei and Morganella morganii, informed Dr. Coppola. Ertapenem will cover. -ID following, appreciate assistance -Urology following, appreciate assistance. Wound care for daily dressing changes. Suprapubic catheter changed 10/22, will need to be changed in/ another month. Continue with dressing changes. -Wound is deep, pink wound bed. Urinary tract infection, catheter related infection Suprapubic cath in place -Urine culture positive for gram-negative rods -Cultures came back, Klebsiella pneumonia ESBL positive, zosyn and vanco discontinued, recommended ertapenem x 14 days. -Repeat BC 10/24 no growth, UA infection resolving, UC not recommended. CXR no acute findings. -has been afebrile, bc negative so far. Will obtain final rec. from ID Diabetes mellitus -Sliding scale insulin, Metformin held due to diarrhea. Will restart at lower dose 500mg BID -Monitor blood glucose, NPH 70 3012 units twice daily -Diabetic diet Physical deconditioning -Patient unable to care for himself at home -Case management consulted to assist with discharge planning, possible SNF -DCF following, pt. not a safe dc home as nephew not available all the time to help. Agreeable with SNF. Left lateral foot ankle ulceration -Previous excision/biopsy of wound with skin plasty left lateral ankle, ostectomy left lateral malleolus on 09/13, no signs of infx -Dr. Christiansen followed prior, may reconsult if needed -Weight bearing as tolerated to the left LE Anemia, iron deficient -Continue ferrous sulfate DVT prop SCDs CODE STATUS full code Discussed with patient, nursing Discharge Planning: SNF Placement. CM Following (1) Non-healing open wound of left groin Qualifiers: Encounter type: initial encounter Qualified Code(s): S31.104A - Unspecified open wound of abdominal wall, left lower quadrant without penetration into peritoneal cavity, initial encounter
[2018-10-28] MEDS: Ferrous Sulfate 325 MG Tablet PO SCH ×2 (11:58→17:10)
--- NOTE | 2018-10-28 13:19 | P.PNURO ---
Subjective Patient symptoms today: Pt seen and examined. Feels well. Objective Vital Signs: Vital Signs 10/27/18 16:15 10/27/18 20:00 10/28/18 00:00 Temperature 98.3 F 98.1 F 97.3 F L Pulse Rate 75 74 67 Respiratory Rate 20 20 18 Blood Pressure 119/56 L 125/61 108/56 L Pulse Oximetry 99 97 97 10/28/18 04:00 10/28/18 07:00 10/28/18 07:50 Temperature 97.3 F L 97.0 F L Pulse Rate 62 61 Respiratory Rate 17 12 20 Blood Pressure 106/57 L 134/63 Pulse Oximetry 97 98 10/28/18 12:00 Temperature 98.7 F Pulse Rate 69 Respiratory Rate 20 Blood Pressure 101/59 L Pulse Oximetry 97 Intake & Output 10/27/18 10/28/18 10/28/18 18:59 06:59 18:59 Intake Total 100 / 100 Output Total 575 / 575 1350 / 1350 550 / 550 Balance -475 / -475 -1350 / -1350 -550 / -550 Weight 84 kg Intake: IV 100 / 100 INVanz Inj 1,000 MG In NS Inj 100 / 100 100 ML @ 200 mls/hr IV.SIG Q24H [facility] Rx#:[id number] Output: Urine 575 / 575 Urine Amount (Catheter) 1350 / 1350 550 / 550 Suprapubic 1350 / 1350 550 / 550 Other: # Voids 2 Date of Last Bowel Movement 10/27/18 10/27/18 Result Diagrams: 10/23/18 05:18 10/23/18 05:18 Medications and IVs: Active Medications Generic Name Dose Route Start Last Admin Trade Name Freq PRN Reason Stop Dose Admin Acetaminophen 650 mg 10/13/18 21:55 10/24/18 19:02 Tylenol PO 650 mg Q4H PRN Administration Temp > 100.4 Al Hydroxide/Mg Hydroxide 30 ml 10/13/18 21:55 Milk Of Magnesia Liq PO Q12H PRN Mild Constipation Bisacodyl 10 mg 10/13/18 21:55 Dulcolax Supp RECTAL DAILY PRN SEVERE CONSITIPATION Dextrose 50 ml 10/13/18 21:55 D50w Vial IV.PUSH UNSCH PRN PER HYPOGLYCEMIA PROTOCOL Ferrous Sulfate 325 mg 10/13/18 12:00 10/28/18 11:58 Ferosul PO 325 mg BID@1200,1700 [facility] Administration Glucagon 1 mg 10/13/18 21:55 Glucagon Inj OTHER PRN PRN for Hypoglycemia Protocol Ertapenem 1,000 mg/ Sodium 100 mls @ 200 mls/hr 10/14/18 18:00 10/27/18 18:41 Chloride IV.SIG Infused Q24H [facility] Infusion Insulin Aspart 0 unit 10/14/18 03:00 10/28/18 11:57 Novolog Insulin Correctional Sugar Inj SQ 1 unit ACHS AND 3AM [facility] Administration Protocol Insulin Human Isoph/Insulin Regular 12 units 10/13/18 08:00 10/28/18 08:47 Novolin 70/30 Inj SQ 12 units BID@0800,1700 [facility] Administration Lactulose 30 ml 10/13/18 21:55 Lactulose Liq PO DAILY PRN SEVERE CONSITIPATION Metformin HCl 1,000 mg 10/13/18 09:00 10/21/18 17:11 Glucophage PO 1,000 mg BIDPC [facility] Administration Ondansetron HCl 4 mg 10/13/18 21:55 Zofran Inj IV.PUSH Q6H PRN NAUSEA OR VOMITING Senna/Docusate Sodium 1 tab 10/14/18 09:00 10/20/18 22:01 Diane-Colace PO 1 tab BID [facility] Administration Sennosides 17.2 mg 10/13/18 21:55 Senokot PO Q12H PRN Moderate Constipation Sodium Chloride 2 ml 10/12/18 17:29 Ns Flush IV.FLUSH PRN PRN FLUSH AFTER USING IV ACCESS Objective Remarks: Abd: soft,nt,nd Wound: clean with some drainage 10/21 Abd:soft,nt,nd Wound: dressing in place SP tube in place 10/22 Abd:soft,nt,nd Wound: clean with some purulent drainage-wet/dry dressings placed SP tube changed at bedside 10/23 Abd:soft,nt,nd SP tube with clear urine Dressing in place 10/28 Abd:soft,nt,nd SP tube with clear urine Dressing in place Assessment and Plan - Plan 68y.o m with history as per HPI - No acute intervention - Keep SPT - Consult ID to help with management - wound management as per Wound care teat Remove displaced aneta - Daily dressing change, can apply antbx ointment - Contac Dr Cassidy for further management 10/19 68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 10/23 68 y.o male with h/o urethral cutaneous fistula s/p SP tube followed by multiple groin washouts with vac changes Continue Wet/dry dressing changes at bedside 10/28 68 y.o male with h/o urethral cutaneous fistula s/p SP tube followed by multiple groin washouts with vac changes Continue Wet/dry dressing changes at bedside
[2018-10-29] MEDS: Insulin NovoLOG Aspart Correctional Sugar Inj SQ SCH ×6 (01:01→22:07)
--- NOTE | 2018-10-29 09:37 | P.PNURO ---
Subjective Patient symptoms today: Pt seen and examined. Wound clean and dry. Objective Vital Signs: Vital Signs 10/28/18 12:00 10/28/18 15:45 10/28/18 20:00 Temperature 98.7 F 98.4 F 97.9 F Pulse Rate 69 75 70 Respiratory Rate 20 20 18 Blood Pressure 101/59 L 112/59 L 103/58 L Pulse Oximetry 97 100 99 10/29/18 00:00 10/29/18 04:00 10/29/18 06:57 Temperature 97.6 F 97.9 F Pulse Rate 80 79 Respiratory Rate 18 18 12 Blood Pressure 110/59 L 108/57 L Pulse Oximetry 100 100 10/29/18 08:00 Temperature 97.2 F L Pulse Rate 67 Respiratory Rate 16 Blood Pressure 93/52 L Pulse Oximetry 98 Intake & Output 10/28/18 10/29/18 10/29/18 18:59 06:59 18:59 Intake Total 340 / 340 Output Total 1350 / 1350 1600 / 1600 Balance -1010 / -1010 -1600 / -1600 Weight 84.2 kg Intake: IV 100 / 100 INVanz Inj 1,000 MG In NS Inj 100 / 100 100 ML @ 200 mls/hr IV.SIG Q24H [facility] Rx#:[id number] Oral 240 / 240 Output: Urine 1600 / 1600 Urine Amount (Catheter) 1350 / 1350 Suprapubic 1350 / 1350 Result Diagrams: 10/23/18 05:18 10/23/18 05:18 Medications and IVs: Active Medications Generic Name Dose Route Start Last Admin Trade Name Freq PRN Reason Stop Dose Admin Acetaminophen 650 mg 10/13/18 21:55 10/24/18 19:02 Tylenol PO 650 mg Q4H PRN Administration Temp > 100.4 Al Hydroxide/Mg Hydroxide 30 ml 10/13/18 21:55 Milk Of Magnesia Liq PO Q12H PRN Mild Constipation Bisacodyl 10 mg 10/13/18 21:55 Dulcolax Supp RECTAL DAILY PRN SEVERE CONSITIPATION Dextrose 50 ml 10/13/18 21:55 D50w Vial IV.PUSH UNSCH PRN PER HYPOGLYCEMIA PROTOCOL Ferrous Sulfate 325 mg 10/13/18 12:00 10/28/18 17:10 Ferosul PO 325 mg BID@1200,1700 [facility] Administration Glucagon 1 mg 10/13/18 21:55 Glucagon Inj OTHER PRN PRN for Hypoglycemia Protocol Ertapenem 1,000 mg/ Sodium 100 mls @ 200 mls/hr 10/14/18 18:00 10/28/18 17:37 Chloride IV.SIG Infused Q24H [facility] Infusion Insulin Aspart 0 unit 10/14/18 03:00 10/29/18 07:17 Novolog Insulin Correctional Sugar Inj SQ Not Given ACHS AND 3AM [facility] Protocol Insulin Human Isoph/Insulin Regular 12 units 10/13/18 08:00 10/29/18 07:21 Novolin 70/30 Inj SQ 12 units BID@0800,1700 [facility] Administration Lactulose 30 ml 10/13/18 21:55 Lactulose Liq PO DAILY PRN SEVERE CONSITIPATION Metformin HCl 1,000 mg 10/13/18 09:00 10/21/18 17:11 Glucophage PO 1,000 mg BIDPC [facility] Administration Ondansetron HCl 4 mg 10/13/18 21:55 Zofran Inj IV.PUSH Q6H PRN NAUSEA OR VOMITING Senna/Docusate Sodium 1 tab 10/14/18 09:00 10/20/18 22:01 Diane-Colace PO 1 tab BID [facility] Administration Sennosides 17.2 mg 10/13/18 21:55 Senokot PO Q12H PRN Moderate Constipation Sodium Chloride 2 ml 10/12/18 17:29 Ns Flush IV.FLUSH PRN PRN FLUSH AFTER USING IV ACCESS Objective Remarks: Abd: soft,nt,nd Wound: clean with some drainage 10/21 Abd:soft,nt,nd Wound: dressing in place SP tube in place 10/22 Abd:soft,nt,nd Wound: clean with some purulent drainage-wet/dry dressings placed SP tube changed at bedside 10/23 Abd:soft,nt,nd SP tube with clear urine Dressing in place 10/28 Abd:soft,nt,nd SP tube with clear urine Dressing in place 10/29 Abd:soft,nt,nd SP tube with clear urine Dressing changed at bedside: clean and dry Assessment and Plan - Plan 68y.o m with history as per HPI - No acute intervention - Keep SPT - Consult ID to help with management - wound management as per Wound care teat Remove displaced aneta - Daily dressing change, can apply antbx ointment - Contac Dr Cassidy for further management 10/19 68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
[2018-10-29] MEDS: Ferrous Sulfate 325 MG Tablet PO SCH ×2 (12:01→17:36)
--- NOTE | 2018-10-29 14:27 | P.PNIM ---
Subjective Interval history: Follow-up visit DM2, sepsis UTI catheter related, ureteral cutaneous fistula, persistent left inguinal wound, suprapubic catheter. Patient seen and examined today. Reports he is doing well. Patient is asking when he is going to a facility. Discussed with patient that case management is working on authorization. Reassurance provided.. Denies SOB/ dyspnea. Denies chest pain, palpitations, headaches, dizziness. Denies fevers, chills, n/v. Physical Exam Vital signs: Vital Signs 10/28/18 15:45 10/28/18 20:00 10/29/18 00:00 Temperature 98.4 F 97.9 F 97.6 F Pulse Rate 75 70 80 Respiratory Rate 20 18 18 Blood Pressure 112/59 L 103/58 L 110/59 L Pulse Oximetry 100 99 100 10/29/18 04:00 10/29/18 06:57 10/29/18 08:00 Temperature 97.9 F 97.2 F L Pulse Rate 79 67 Respiratory Rate 18 12 16 Blood Pressure 108/57 L 93/52 L Pulse Oximetry 100 98 10/29/18 11:29 Temperature 97.2 F L Pulse Rate 67 Respiratory Rate 16 Blood Pressure 93/52 L Pulse Oximetry 98 Intake & Output 10/28/18 10/29/18 10/29/18 18:59 06:59 18:59 Intake Total 340 / 340 Output Total 1350 / 1350 1600 / 1600 Balance -1010 / -1010 -1600 / -1600 Weight 84.2 kg Intake: IV 100 / 100 INVanz Inj 1,000 MG In NS Inj 100 / 100 100 ML @ 200 mls/hr IV.SIG Q24H [facility] Rx#:[id number] Oral 240 / 240 Output: Urine 1600 / 1600 Urine Amount (Catheter) 1350 / 1350 Suprapubic 1350 / 1350 Narrative: GENERAL: This is a well-nourished, well-developed patient, in no apparent distress. SKIN: Warm and dry. +Left groin wound, wound bed pink and clean, wound is deep. Packing in place. HEENT: Normocephalic. Pupils equal round and reactive. Nose without bleeding. Airway patent. NECK: Trachea midline. CARDIOVASCULAR: Regular rate and rhythm without murmurs, gallops, or rubs. RESPIRATORY: Clear to auscultation. Breath sounds equal bilaterally. No wheezes , rales, or rhonchi. GASTROINTESTINAL: Abdomen soft, non-tender, nondistended. Bowel Sounds normoactive x4. +Ostomy in place-soft stool. : Suprapubic catheter in place draining yellow urine MUSCULOSKELETAL: Extremities without clubbing, cyanosis, or edema. Cool RLE than LLE NEUROLOGICAL: Awake and alert. No focal neuro deficit. Moves all extremities. Normal speech. - Urinary Catheter Management Suprapubic Cath placed during this visit: yes Reason for continuing: Other continuation reason Insertion date: 10/13/18 Insertion time: 20:13 Results - Labs CBC & Chem 7: 10/23/18 05:18 10/23/18 05:18 Laboratory Results - last 24 hr 10/28/18 10/28/18 10/29/18 16:42 20:09 02:52 POC Glucose 173 H 140 H 124 H 10/29/18 10/29/18 07:09 11:18 POC Glucose 124 H 140 H Microbiology 10/24/18 10:40 Blood - Peripheral Aerobic Blood Culture - Final No growth in 5 days 10/24/18 10:40 Blood - Peripheral Anaerobic Blood Culture - Final No growth in 5 days 10/24/18 10:46 Blood - Peripheral Aerobic Blood Culture - Final No growth in 5 days 10/24/18 10:46 Blood - Peripheral Anaerobic Blood Culture - Final No growth in 5 days Assessment and Plan - Assessment (1) Non-healing open wound of left groin Code(s): S31.104A - Unspecified open wound of abdominal wall, left lower quadrant without penetration into peritoneal cavity, initial encounter Status : Acute (2) Physical deconditioning Code(s): R53.81 - Other malaise Status: Acute (3) Gait instability Code(s): R26.81 - Unsteadiness on feet Status: Acute (4) Open wound of groin Code(s): S31.109A - Unspecified open wound of abdominal wall, unspecified quadrant without penetration into peritoneal cavity, initial encounter Status : Acute (5) Risk for falls Code(s): Z91.81 - History of falling Status: Acute (6) Weakness Code(s): R53.1 - Weakness Status: Acute - Plan 68-year-old male with a past medical history significant for diabetes mellitus and recent hospitalization for severe sepsis presents to the emergency room after his home health nurse called EMS because she was concerned that the patient was unable to care for himself. Urethral cutaneous fistula/persistent left inguinal wound Status post suprapubic catheter placement and multiple washouts and wound VAC placement of left groin Left inguinal wound draining purulent material, concern for active infection -Previously had irrigation and washout multiple times, wound was closed with aneta up to the area of the groin and scrotal junction small sponge on top of the left hemiscrotum with VAC placement, VAC was removed when EMS got the patient -Vancomycin/Zosyn after wound and blood cultures collected, pending results -Wound cx +Hafnia alvei and Morganella morganii, informed Dr. Coppola. Ertapenem will cover. -ID following, appreciate assistance -Urology following, appreciate assistance. Wound care for daily dressing changes. Suprapubic catheter changed 10/22, will need to be changed in/ another month. Continue with dressing changes. -Wound is deep, pink wound bed. Urinary tract infection, catheter related infection Suprapubic cath in place -Urine culture positive for gram-negative rods -Cultures came back, Klebsiella pneumonia ESBL positive, zosyn and vanco discontinued, recommended ertapenem. -Repeat BC 10/24 no growth, UA infection resolving, UC not recommended. CXR no acute findings. -Blood cultures no growth to date -Continue with ertapenem, end date 11/06 Diabetes mellitus -Sliding scale insulin, Metformin restart at lower dose 500mg BID -Monitor blood glucose, NPH 70/30 12 units twice daily -Diabetic diet Physical deconditioning -Patient unable to care for himself at home -Case management consulted to assist with discharge planning, possible SNF -DCF following, pt. not a safe dc home as nephew not available all the time to help. Agreeable with SNF. Left lateral foot ankle ulceration -Previous excision/biopsy of wound with skin plasty left lateral ankle, ostectomy left lateral malleolus on 09/13, no signs of infx -Dr. Christiansen followed prior, may reconsult if needed -Weight bearing as tolerated to the left LE Anemia, iron deficient -Continue ferrous sulfate DVT prop SCDs CODE STATUS full code Discussed with patient, nursing Discharge Planning: SNF Placement. CM Following (1) Non-healing open wound of left groin Qualifiers: Encounter type: initial encounter Qualified Code(s): S31.104A - Unspecified open wound of abdominal wall, left lower quadrant without penetration into peritoneal cavity, initial encounter
[2018-10-30] MEDS: Insulin NovoLOG Aspart Correctional Sugar Inj SQ SCH ×5 (09:10→22:33)
--- NOTE | 2018-10-30 09:54 | P.PNIM ---
Subjective Interval history: Follow-up visit DM2, sepsis UTI catheter related, ureteral cutaneous fistula, persistent left inguinal wound, suprapubic catheter. Patient seen and examined today. Reports he is doing well. Patient was assisted to get out of bed and sit in a chair. No acute issues overnight. Denies pain and discomfort. Denies SOB/ dyspnea. Denies chest pain, palpitations, headaches, dizziness. Denies fevers, chills, n/v/d. Physical Exam Vital signs: Vital Signs 10/29/18 11:29 10/29/18 15:50 10/29/18 20:00 Temperature 97.2 F L 98.3 F 98.3 F Pulse Rate 67 68 69 Respiratory Rate 16 20 20 Blood Pressure 93/52 L 117/61 96/57 L Pulse Oximetry 98 97 97 10/30/18 00:00 10/30/18 04:00 10/30/18 07:44 Temperature 98.0 F 97.6 F 97.7 F Pulse Rate 65 63 66 Respiratory Rate 20 20 18 Blood Pressure 107/59 L 108/56 L 108/57 L Pulse Oximetry 97 96 98 Intake & Output 10/29/18 10/30/18 10/30/18 18:59 06:59 18:59 Intake Total 240 / 240 Output Total 850 / 850 1400 / 1400 Balance -610 / -610 -1400 / -1400 Weight 84.3 kg Intake: Oral 240 / 240 Output: Urine 1400 / 1400 Urine Amount (Catheter) 850 / 850 Suprapubic 850 / 850 Narrative: GENERAL: This is a well-nourished, well-developed patient, in no apparent distress. SKIN: Warm and dry. +Left groin wound, wound bed pink and clean, wound is deep. Packing in place. HEENT: Normocephalic. Pupils equal round and reactive. Nose without bleeding. Airway patent. NECK: Trachea midline. CARDIOVASCULAR: Regular rate and rhythm without murmurs, gallops, or rubs. RESPIRATORY: Clear to auscultation. Breath sounds equal bilaterally. No wheezes , rales, or rhonchi. GASTROINTESTINAL: Abdomen soft, non-tender, nondistended. Bowel Sounds normoactive x4. +Ostomy in place-soft stool. : Suprapubic catheter in place draining yellow urine MUSCULOSKELETAL: Extremities without clubbing, cyanosis, or edema. NEUROLOGICAL: Awake and alert. No focal neuro deficit. Moves all extremities. Normal speech. - Urinary Catheter Management Suprapubic Cath placed during this visit: yes Reason for continuing: Other continuation reason Insertion date: 10/13/18 Insertion time: 20:13 Results - Labs CBC & Chem 7: 10/23/18 05:18 10/23/18 05:18 Laboratory Results - last 24 hr 10/29/18 10/29/18 10/29/18 11:18 16:53 21:23 POC Glucose 140 H 183 H 172 H 10/30/18 03:27 POC Glucose 123 H Microbiology 10/24/18 10:40 Blood - Peripheral Aerobic Blood Culture - Final No growth in 5 days 10/24/18 10:40 Blood - Peripheral Anaerobic Blood Culture - Final No growth in 5 days 10/24/18 10:46 Blood - Peripheral Aerobic Blood Culture - Final No growth in 5 days 10/24/18 10:46 Blood - Peripheral Anaerobic Blood Culture - Final No growth in 5 days Assessment and Plan - Assessment (1) Non-healing open wound of left groin Code(s): S31.104A - Unspecified open wound of abdominal wall, left lower quadrant without penetration into peritoneal cavity, initial encounter Status : Acute (2) Physical deconditioning Code(s): R53.81 - Other malaise Status: Acute (3) Gait instability Code(s): R26.81 - Unsteadiness on feet Status: Acute (4) Open wound of groin Code(s): S31.109A - Unspecified open wound of abdominal wall, unspecified quadrant without penetration into peritoneal cavity, initial encounter Status : Acute (5) Risk for falls Code(s): Z91.81 - History of falling Status: Acute (6) Weakness Code(s): R53.1 - Weakness Status: Acute - Plan 68-year-old male with a past medical history significant for diabetes mellitus and recent hospitalization for severe sepsis presents to the emergency room after his home health nurse called EMS because she was concerned that the patient was unable to care for himself. Urethral cutaneous fistula/persistent left inguinal wound Status post suprapubic catheter placement and multiple washouts and wound VAC placement of left groin Left inguinal wound draining purulent material, concern for active infection -Previously had irrigation and washout multiple times, wound was closed with aneta up to the area of the groin and scrotal junction small sponge on top of the left hemiscrotum with VAC placement, VAC was removed when EMS got the patient -Vancomycin/Zosyn after wound and blood cultures collected, pending results -Wound cx +Hafnia alvei and Morganella morganii, informed Dr. Coppola. Ertapenem will cover. -ID following, appreciate assistance -Urology following, appreciate assistance. Wound care for daily dressing changes. Suprapubic catheter changed 10/22, will need to be changed in/ another month. Continue with dressing changes. -Wound is deep, pink wound bed. Urinary tract infection, catheter related infection Suprapubic cath in place -Urine culture positive for gram-negative rods -Cultures came back, Klebsiella pneumonia ESBL positive, zosyn and vanco discontinued, recommended ertapenem. -Repeat BC 10/24 no growth, UA infection resolving, UC not recommended. CXR no acute findings. -Blood cultures no growth to date -Continue with ertapenem, end date 11/06 Diabetes mellitus -Sliding scale insulin, Metformin restart at lower dose 500mg BID -Monitor blood glucose, NPH 70/30 12 units twice daily -Diabetic diet Physical deconditioning -Patient unable to care for himself at home -Case management consulted to assist with discharge planning, possible SNF -DCF following, pt. not a safe dc home as nephew not available all the time to help. Agreeable with SNF. Left lateral foot ankle ulceration -Previous excision/biopsy of wound with skin plasty left lateral ankle, ostectomy left lateral malleolus on 09/13, no signs of infx -Dr. Christiansen followed prior, may reconsult if needed -Weight bearing as tolerated to the left LE -Encouraged socks and footwear use Anemia, iron deficient -Continue ferrous sulfate DVT prop SCDs CODE STATUS full code Discussed with patient, nursing Discharge Planning: SNF Placement. CM Following (1) Non-healing open wound of left groin Qualifiers: Encounter type: initial encounter Qualified Code(s): S31.104A - Unspecified open wound of abdominal wall, left lower quadrant without penetration into peritoneal cavity, initial encounter
[2018-10-30] MEDS: Ferrous Sulfate 325 MG Tablet PO SCH ×2 (13:20→17:47)
[2018-10-31] MEDS: Insulin NovoLOG Aspart Correctional Sugar Inj SQ SCH ×5 (03:35→22:07)
--- NOTE | 2018-10-31 10:28 | P.PNIM ---
Subjective Interval history: Follow-up visit DM2, sepsis UTI catheter related, ureteral cutaneous fistula, persistent left inguinal wound, suprapubic catheter. Patient seen and examined today. Reports he is doing well. Discussed with patient possible placement at [facility] when authorization is approved. Verbalized understanding. Denies pain and discomfort. Denies SOB/ dyspnea. Denies chest pain, palpitations, headaches, dizziness. Denies fevers, chills, n/v/d. Physical Exam Vital signs: Vital Signs 10/30/18 12:00 10/30/18 16:00 10/30/18 20:00 Temperature 98.4 F 98 F 97.7 F Pulse Rate 71 65 64 Respiratory Rate 18 20 16 Blood Pressure 94/50 L 130/60 113/58 L Pulse Oximetry 98 97 98 10/31/18 00:00 10/31/18 04:00 10/31/18 07:38 Temperature 97.8 F 97.8 F 97.8 F Pulse Rate 63 64 60 Respiratory Rate 16 16 18 Blood Pressure 120/52 L 112/55 L 113/57 L Pulse Oximetry 98 98 99 Intake & Output 10/30/18 10/31/18 10/31/18 18:59 06:59 18:59 Intake Total 800 / 800 340 / 340 Output Total 700 / 700 1999 / 1999 Balance 100 / 100 -1660 / -1660 Weight 84.1 kg Intake: IV 100 / 100 INVanz Inj 1,000 MG In NS Inj 100 / 100 100 ML @ 200 mls/hr IV.SIG Q24H [facility] Rx#:[id number] Oral 800 / 800 240 / 240 Output: Urine 700 / 700 1999 Other: # Incontinent Bowel Movements 1 Narrative: GENERAL: This is a well-nourished, well-developed patient, in no apparent distress. SKIN: Warm and dry. +Left groin wound, wound bed pink and clean, wound is deep. Packing in place. HEENT: Normocephalic. Pupils equal round and reactive. Nose without bleeding. Airway patent. NECK: Trachea midline. CARDIOVASCULAR: Regular rate and rhythm without murmurs, gallops, or rubs. RESPIRATORY: Clear to auscultation. Breath sounds equal bilaterally. No wheezes , rales, or rhonchi. GASTROINTESTINAL: Abdomen soft, non-tender, nondistended. Bowel Sounds normoactive x4. +Ostomy in place-soft stool. : Suprapubic catheter in place draining yellow urine MUSCULOSKELETAL: Extremities without clubbing, cyanosis, or edema. NEUROLOGICAL: Awake and alert. No focal neuro deficit. Moves all extremities. Normal speech. - Urinary Catheter Management Suprapubic Cath placed during this visit: yes Reason for continuing: Chronic Urinary Retention Insertion date: 10/13/18 Insertion time: 20:13 Results - Labs CBC & Chem 7: 10/23/18 05:18 10/23/18 05:18 Laboratory Results - last 24 hr 10/30/18 10/30/18 10/30/18 12:31 16:46 22:01 POC Glucose 220 H 114 H 196 H 10/31/18 10/31/18 03:32 07:50 POC Glucose 178 H 155 H Assessment and Plan - Assessment (1) Non-healing open wound of left groin Code(s): S31.104A - Unspecified open wound of abdominal wall, left lower quadrant without penetration into peritoneal cavity, initial encounter Status : Acute (2) Physical deconditioning Code(s): R53.81 - Other malaise Status: Acute (3) Gait instability Code(s): R26.81 - Unsteadiness on feet Status: Acute (4) Open wound of groin Code(s): S31.109A - Unspecified open wound of abdominal wall, unspecified quadrant without penetration into peritoneal cavity, initial encounter Status : Acute (5) Risk for falls Code(s): Z91.81 - History of falling Status: Acute (6) Weakness Code(s): R53.1 - Weakness Status: Acute - Plan 68-year-old male with a past medical history significant for diabetes mellitus and recent hospitalization for severe sepsis presents to the emergency room after his home health nurse called EMS because she was concerned that the patient was unable to care for himself. Urethral cutaneous fistula/persistent left inguinal wound Status post suprapubic catheter placement and multiple washouts and wound VAC placement of left groin Left inguinal wound draining purulent material, concern for active infection -Previously had irrigation and washout multiple times, wound was closed with aneta up to the area of the groin and scrotal junction small sponge on top of the left hemiscrotum with VAC placement, VAC was removed when EMS got the patient -Vancomycin/Zosyn after wound and blood cultures collected -Wound cx +Hafnia alvei and Morganella morganii, informed Dr. Coppola. Ertapenem will cover. -ID following, appreciate assistance -Urology following, appreciate assistance. Wound care for daily dressing changes. Suprapubic catheter changed 10/22, will need to be changed in/ another month. Continue with dressing changes. -Wound is deep, pink wound bed. Urinary tract infection, catheter related infection Suprapubic cath in place -Urine culture positive for gram-negative rods -Cultures came back, Klebsiella pneumonia ESBL positive, zosyn and vanco discontinued, recommended ertapenem. -Repeat BC 10/24 no growth, UA infection resolving, UC not recommended. CXR no acute findings. -Blood cultures no growth to date -Continue with ertapenem, end date 11/06 Diabetes mellitus -Sliding scale insulin, Metformin restart at lower dose 500mg BID, increase to 1000mg daily if tolerating -previous reports of diarrhea, patient states he has loose stools at times but it has been on going before since he has the colostomy. -Monitor blood glucose, NPH 70/30 12 units twice daily -Diabetic diet Physical deconditioning -Patient unable to care for himself at home -Case management consulted to assist with discharge planning, possible SNF -DCF following, pt. not a safe dc home as nephew not available all the time to help. Agreeable with SNF. Left lateral foot ankle ulceration -Previous excision/biopsy of wound with skin plasty left lateral ankle, ostectomy left lateral malleolus on 09/13, no signs of infx -Dr. Christiansen followed prior, may reconsult if needed -Weight bearing as tolerated to the left LE -Encouraged socks and footwear use Anemia, iron deficient -Continue ferrous sulfate DVT prop SCDs CODE STATUS full code Discussed with patient, nursing Discharge Planning: SNF Placement. CM Following (1) Non-healing open wound of left groin Qualifiers: Encounter type: initial encounter Qualified Code(s): S31.104A - Unspecified open wound of abdominal wall, left lower quadrant without penetration into peritoneal cavity, initial encounter
[2018-10-31] MEDS: Ferrous Sulfate 325 MG Tablet PO SCH ×2 (12:39→18:08)
[2018-11-01] MEDS: Insulin NovoLOG Aspart Correctional Sugar Inj SQ SCH ×5 (02:29→21:25)
--- NOTE | 2018-11-01 11:17 | P.PNIM ---
Subjective Interval history: Follow-up visit DM2, sepsis UTI catheter related, ureteral cutaneous fistula, persistent left inguinal wound, suprapubic catheter. Patient seen and examined today. States he is doing okay. Denies pain and discomfort. Denies SOB/ dyspnea. Denies chest pain, palpitations, headaches, dizziness. Denies fevers, chills, n/v/d. Physical Exam Vital signs: Vital Signs 10/31/18 12:00 10/31/18 16:00 10/31/18 20:00 Temperature 98 F 98.3 F 98.6 F Pulse Rate 51 L 62 71 Respiratory Rate 18 Blood Pressure 105/55 L 114/55 L 110/62 Pulse Oximetry 99 97 97 11/01/18 00:00 11/01/18 04:00 11/01/18 08:00 Temperature 97.6 F 97.7 F 98 F Pulse Rate 60 65 59 L Respiratory Rate 18 Blood Pressure 104/59 L 110/70 113/58 L Pulse Oximetry 99 100 98 Intake & Output 10/31/18 11/01/18 11/01/18 18:59 06:59 18:59 Intake Total 1700 / 1700 600 / 600 Output Total 1700 / 1700 1999 Balance 0 / 0 -1400 / -1400 Weight 85.3 kg Intake: IV 100 / 100 INVanz Inj 1,000 MG In NS Inj 100 / 100 100 ML @ 200 mls/hr IV.SIG Q[facility]H [facility] Rx#:[id number] Oral 1600 / 1600 600 / 600 Output: Urine 1700 / 1700 Urine Amount (Catheter) 1999 Suprapubic 1999 Other: Date of Last Bowel Movement 10/31/18 10/31/18 11/01/18 Narrative: GENERAL: This is a well-nourished, well-developed patient, in no apparent distress. SKIN: Warm and dry. +Left groin wound, wound bed pink and clean, wound is deep. Packing in place. HEENT: Normocephalic. Pupils equal round and reactive. Nose without bleeding. Airway patent. NECK: Trachea midline. CARDIOVASCULAR: Regular rate and rhythm without murmurs, gallops, or rubs. RESPIRATORY: Clear to auscultation. Breath sounds equal bilaterally. No wheezes , rales, or rhonchi. GASTROINTESTINAL: Abdomen soft, non-tender, nondistended. Bowel Sounds normoactive x4. +Ostomy in place-soft stool. : Suprapubic catheter in place draining yellow urine MUSCULOSKELETAL: Extremities without clubbing, cyanosis, or edema. NEUROLOGICAL: Awake and alert. No focal neuro deficit. Moves all extremities. Normal speech. - Urinary Catheter Management Suprapubic Cath placed during this visit: yes Reason for continuing: Chronic Urinary Retention Insertion date: 10/13/18 Insertion time: 20:13 Results - Labs CBC & Chem 7: 10/23/18 05:18 10/23/18 05:18 Laboratory Results - last 24 hr 10/31/18 10/31/18 10/31/18 11:53 17:34 22:06 POC Glucose 148 H 147 H 119 H 11/01/18 11/01/18 02:29 07:39 POC Glucose 140 H 147 H Assessment and Plan - Assessment (1) Non-healing open wound of left groin Code(s): S31.104A - Unspecified open wound of abdominal wall, left lower quadrant without penetration into peritoneal cavity, initial encounter Status : Acute (2) Physical deconditioning Code(s): R53.81 - Other malaise Status: Acute (3) Gait instability Code(s): R26.81 - Unsteadiness on feet Status: Acute (4) Open wound of groin Code(s): S31.109A - Unspecified open wound of abdominal wall, unspecified quadrant without penetration into peritoneal cavity, initial encounter Status : Acute (5) Risk for falls Code(s): Z91.81 - History of falling Status: Acute (6) Weakness Code(s): R53.1 - Weakness Status: Acute - Plan 68-year-old male with a past medical history significant for diabetes mellitus and recent hospitalization for severe sepsis presents to the emergency room after his home health nurse called EMS because she was concerned that the patient was unable to care for himself. Urethral cutaneous fistula/persistent left inguinal wound Status post suprapubic catheter placement and multiple washouts and wound VAC placement of left groin Left inguinal wound draining purulent material, concern for active infection -Previously had irrigation and washout multiple times, wound was closed with aneta up to the area of the groin and scrotal junction small sponge on top of the left hemiscrotum with VAC placement, VAC was removed when EMS got the patient -Vancomycin/Zosyn after wound and blood cultures collected -Wound cx +Hafnia alvei and Morganella morganii, informed Dr. Coppola. Ertapenem will cover. -ID following, appreciate assistance -Urology following, appreciate assistance. Wound care for daily dressing changes. Suprapubic catheter changed 10/22, will need to be changed in/ another month. Continue with dressing changes. -Wound is deep, pink wound bed. Urinary tract infection, catheter related infection Suprapubic cath in place -Urine culture positive for gram-negative rods -Cultures came back, Klebsiella pneumonia ESBL positive, zosyn and vanco discontinued, recommended ertapenem. -Repeat BC 10/24 no growth, UA infection resolving, UC not recommended. CXR no acute findings. -Blood cultures no growth to date -Continue with ertapenem, end date 11/06 Diabetes mellitus -Sliding scale insulin, Metformin restart at lower dose 500mg BID, increase to 1000mg daily if tolerating -previous reports of diarrhea, patient states he has loose stools at times but it has been on going before since he has the colostomy. -Monitor blood glucose, NPH 70/30 12 units twice daily -Diabetic diet Physical deconditioning -Patient unable to care for himself at home -Case management consulted to assist with discharge planning, possible SNF -DCF following, pt. not a safe dc home as nephew not available all the time to help. Agreeable with SNF. Left lateral foot ankle ulceration -Previous excision/biopsy of wound with skin plasty left lateral ankle, ostectomy left lateral malleolus on 09/13, no signs of infx -Dr. Christiansen followed prior, may reconsult if needed -Weight bearing as tolerated to the left LE -Encouraged socks and footwear use Anemia, iron deficient -Continue ferrous sulfate DVT prop SCDs CODE STATUS full code Discussed with patient, nursing Discharge Planning: SNF Placement. CM Following (1) Non-healing open wound of left groin Qualifiers: Encounter type: initial encounter Qualified Code(s): S31.104A - Unspecified open wound of abdominal wall, left lower quadrant without penetration into peritoneal cavity, initial encounter
[2018-11-01] MEDS: Ferrous Sulfate 325 MG Tablet PO SCH ×2 (12:34→18:09)
[2018-11-02] MEDS: Insulin NovoLOG Aspart Correctional Sugar Inj SQ SCH ×4 (02:35→18:05)
[2018-11-02 08:19] LABS: Hematocrit 36.2 % (39.0-51.0); Hemoglobin 12.2 gm/dL (13.0-17.0); Mean Corpuscular HGB Conc 33.6 % (32.0-36.0); Mean Corpuscular Hemoglobin 30.8 pg (27.0-34.0); Mean Corpuscular Volume 91.6 fL (80.0-100.0); Platelet Count 264 th/mm3 (150-450); Red Blood Count 3.96 mil/mm3 (4.50-5.90); Red Cell Distribution Width 15.7 % (11.6-17.2); White Blood Count 10.2 th/mm3 (4.0-11.0)
[2018-11-02 08:40] LABS: Calcium 8.5 mg/dL (8.5-10.1); Carbon Dioxide 26.7 meq/L (21.0-32.0); Potassium 4.3 meq/L (3.5-5.1)
--- NOTE | 2018-11-02 11:02 | P.PNIM ---
Subjective Interval history: Follow-up visit DM2, sepsis UTI catheter related, ureteral cutaneous fistula, persistent left inguinal wound, suprapubic catheter. Patient seen and examined today. States he is doing well. Denies pain and discomfort. Denies SOB/ dyspnea. Denies chest pain, palpitations, headaches, dizziness. Denies fevers, chills, n/v/d. Physical Exam Vital signs: Vital Signs 11/01/18 12:00 11/01/18 16:00 11/01/18 20:00 Temperature 98 F 98 F 98.6 F Pulse Rate 73 70 74 Respiratory Rate 18 20 17 Blood Pressure 98/55 L 118/70 102/59 L Pulse Oximetry 96 97 97 11/02/18 00:00 11/02/18 04:00 11/02/18 08:00 Temperature 98.4 F 98.3 F 97.7 F Pulse Rate 68 70 72 Respiratory Rate 19 17 20 Blood Pressure 98/57 L 108/59 L 112/57 L Pulse Oximetry 96 96 99 Intake & Output 11/01/18 11/02/18 11/02/18 18:59 06:59 18:59 Intake Total 1000 / 1000 Output Total 900 / 900 550 / 550 Balance 100 / 100 -550 / -550 Weight 84.5 kg Intake: IV 100 / 100 INVanz Inj 1,000 MG In NS Inj 100 / 100 100 ML @ 200 mls/hr IV.SIG Q24H [facility] Rx#:[id number] Oral 900 / 900 Output: Urine 900 / 900 Urine Amount (Catheter) 550 / 550 Suprapubic 550 / 550 Other: Date of Last Bowel Movement 11/01/18 11/01/18 # Incontinent Bowel Movements 2 Narrative: GENERAL: This is a well-nourished, well-developed patient, in no apparent distress. SKIN: Warm and dry. +Left groin wound, wound bed pink and clean, wound is deep. Packing in place. HEENT: Normocephalic. Pupils equal round and reactive. Nose without bleeding. Airway patent. NECK: Trachea midline. CARDIOVASCULAR: Regular rate and rhythm without murmurs, gallops, or rubs. RESPIRATORY: Clear to auscultation. Breath sounds equal bilaterally. No wheezes , rales, or rhonchi. GASTROINTESTINAL: Abdomen soft, non-tender, nondistended. Bowel Sounds normoactive x4. +Ostomy in place-soft stool. : Suprapubic catheter in place draining yellow urine MUSCULOSKELETAL: Extremities without clubbing, cyanosis, or edema. NEUROLOGICAL: Awake and alert. No focal neuro deficit. Moves all extremities. Normal speech. - Urinary Catheter Management Suprapubic Cath placed during this visit: yes Reason for continuing: Chronic Urinary Retention Insertion date: 10/13/18 Insertion time: 20:13 Results - Labs CBC & Chem 7: 11/02/18 07:35 11/02/18 07:35 Laboratory Results - last 24 hr 11/01/18 11/01/18 11/01/18 12:33 16:48 21:20 WBC RBC Hgb Hct MCV MCH MCHC RDW Plt Count MPV Sodium Potassium Chloride Carbon Dioxide Anion Gap BUN Creatinine Estimated GFR POC Glucose 123 H 121 H 253 H Random Glucose Calcium 11/02/18 11/02/18 11/02/18 02:35 07:35 07:35 WBC 10.2 RBC 3.96 L Hgb 12.2 L Hct 36.2 L MCV 91.6 MCH 30.8 MCHC 33.6 RDW 15.7 Plt Count 264 D MPV 8.0 Sodium 141 Potassium 4.3 Chloride 108 H Carbon Dioxide 26.7 Anion Gap 6 BUN 33 H Creatinine 0.90 Estimated GFR 84 L POC Glucose 137 H Random Glucose 148 H Calcium 8.5 11/02/18 08:10 WBC RBC Hgb Hct MCV MCH MCHC RDW Plt Count MPV Sodium Potassium Chloride Carbon Dioxide Anion Gap BUN Creatinine Estimated GFR POC Glucose 155 H Random Glucose Calcium Assessment and Plan - Assessment (1) Non-healing open wound of left groin Code(s): S31.104A - Unspecified open wound of abdominal wall, left lower quadrant without penetration into peritoneal cavity, initial encounter Status : Acute (2) Physical deconditioning Code(s): R53.81 - Other malaise Status: Acute (3) Gait instability Code(s): R26.81 - Unsteadiness on feet Status: Acute (4) Open wound of groin Code(s): S31.109A - Unspecified open wound of abdominal wall, unspecified quadrant without penetration into peritoneal cavity, initial encounter Status : Acute (5) Risk for falls Code(s): Z91.81 - History of falling Status: Acute (6) Weakness Code(s): R53.1 - Weakness Status: Acute - Plan 68-year-old male with a past medical history significant for diabetes mellitus and recent hospitalization for severe sepsis presents to the emergency room after his home health nurse called EMS because she was concerned that the patient was unable to care for himself. Urethral cutaneous fistula/persistent left inguinal wound Status post suprapubic catheter placement and multiple washouts and wound VAC placement of left groin Left inguinal wound draining purulent material, concern for active infection -Previously had irrigation and washout multiple times, wound was closed with aneta up to the area of the groin and scrotal junction small sponge on top of the left hemiscrotum with VAC placement, VAC was removed when EMS got the patient -Vancomycin/Zosyn after wound and blood cultures collected -Wound cx +Hafnia alvei and Morganella morganii, informed Dr. Coppola. Ertapenem will cover. -ID following, appreciate assistance -Urology following, appreciate assistance. Wound care for daily dressing changes. Suprapubic catheter changed 10/22, will need to be changed in/ another month. Continue with dressing changes. -Wound is deep, pink wound bed. Urinary tract infection, catheter related infection Suprapubic cath in place -Urine culture positive for gram-negative rods -Cultures came back, Klebsiella pneumonia ESBL positive, zosyn and vanco discontinued, recommended ertapenem. -Repeat BC 10/24 no growth, UA infection resolving, UC not recommended. CXR no acute findings. -Blood cultures no growth to date -Continue with ertapenem, end date 11/06 Diabetes mellitus -Sliding scale insulin, Metformin restart at lower dose 500mg BID, increase to 1000mg daily if tolerating -previous reports of diarrhea, patient states he has loose stools at times but it has been on going before since he has the colostomy. -Monitor blood glucose, NPH 70/30 12 units twice daily -Diabetic diet Physical deconditioning -Patient unable to care for himself at home -Case management consulted to assist with discharge planning, possible SNF -DCF following, pt. not a safe dc home as nephew not available all the time to help. Agreeable with SNF. Left lateral foot ankle ulceration -Previous excision/biopsy of wound with skin plasty left lateral ankle, ostectomy left lateral malleolus on 09/13, no signs of infx -Dr. Christiansen followed prior, may reconsult if needed -Weight bearing as tolerated to the left LE -Encouraged socks and footwear use Anemia, iron deficient -Continue ferrous sulfate DVT prop Lovenox CODE STATUS full code Discussed with patient, nursing Discharge Planning: SNF Placement. CM Following (1) Non-healing open wound of left groin Qualifiers: Encounter type: initial encounter Qualified Code(s): S31.104A - Unspecified open wound of abdominal wall, left lower quadrant without penetration into peritoneal cavity, initial encounter
[2018-11-02] MEDS: Ferrous Sulfate 325 MG Tablet PO SCH ×2 (11:32→18:08)
[2018-11-02] MEDS: Enoxaparin Inj 40 MG/0.4 ML Syringe SQ SCH (11:32)
[2018-11-03] MEDS: Insulin NovoLOG Aspart Correctional Sugar Inj SQ SCH ×4 (05:05→18:46)
[2018-11-03] MEDS: Enoxaparin Inj 40 MG/0.4 ML Syringe SQ SCH (09:45)
--- NOTE | 2018-11-03 12:14 | P.PNIM ---
Subjective Interval history: Follow-up for sepsis UTI catheter related, ureteral cutaneous fistula, persistent left inguinal wound, suprapubic catheter and hx DM2. Patient seen and examined laying in bed, denies any pain or discomfort on the groin area. Patient denies any fever or chills. Patient denies any headache or dizziness, denies any chest pain or shortness of breath, denies any abdominal pain, nausea , vomiting, diarrhea or constipation. Physical Exam Vital signs: Vital Signs 11/02/18 20:00 11/03/18 00:00 11/03/18 04:00 Temperature 99.1 F 98.3 F 98.5 F Pulse Rate 75 73 64 Respiratory Rate 18 20 18 Blood Pressure 102/59 L 134/61 104/58 L Pulse Oximetry 97 98 98 11/03/18 08:00 Temperature 98.1 F Pulse Rate 61 Respiratory Rate 20 Blood Pressure 107/63 Pulse Oximetry 98 Intake & Output 11/02/18 11/03/18 11/03/18 18:59 06:59 18:59 Output Total 600 / 600 Balance -600 / -600 Weight 186 kg Output: Urine 600 / 600 Other: Date of Last Bowel Movement 11/01/18 11/02/18 Narrative: GENERAL: Well-developed, well-nourished, male in no apparent distress SKIN: Warm and dry. Left groin area large wound, packing in place, purulent with serosanguineous drainage noted drainage noted HEAD: Atraumatic. Normocephalic. EYES: Pupils equal and round. No scleral icterus. No injection or drainage. ENT: No nasal bleeding or discharge. Mucous membranes pink and moist. NECK: Trachea midline. No JVD. CARDIOVASCULAR: Regular rate and rhythm. RESPIRATORY: No accessory muscle use. Clear to auscultation. Breath sounds equal bilaterally. GASTROINTESTINAL: Abdomen soft, non-tender, nondistended. Hepatic and splenic margins not palpable. Ostomy in place with soft stool : Suprapubic catheter in place with yellow urine MUSCULOSKELETAL: Extremities without clubbing, cyanosis, or edema. No obvious deformities. NEUROLOGICAL: Awake and alert. No obvious cranial nerve deficits. Motor grossly within normal limits. Generalized weakness moving all 4 extremities normal speech. PSYCHIATRIC: Appropriate mood and affect; insight and judgment poor. - Urinary Catheter Management Suprapubic Cath placed during this visit: yes Reason for continuing: Chronic Urinary Retention Insertion date: 10/13/18 Insertion time: 20:13 Results - Labs CBC & Chem 7: 11/02/18 07:35 11/02/18 07:35 Laboratory Results - last 24 hr 11/02/18 11/02/18 11/02/18 13:42 18:04 20:41 POC Glucose 149 H 144 H 123 H 11/03/18 11/03/18 04:05 07:51 POC Glucose 133 H 104 Assessment and Plan - Assessment (1) Non-healing open wound of left groin Code(s): S31.104A - Unspecified open wound of abdominal wall, left lower quadrant without penetration into peritoneal cavity, initial encounter Status : Acute (2) Physical deconditioning Code(s): R53.81 - Other malaise Status: Acute (3) Gait instability Code(s): R26.81 - Unsteadiness on feet Status: Acute (4) Open wound of groin Code(s): S31.109A - Unspecified open wound of abdominal wall, unspecified quadrant without penetration into peritoneal cavity, initial encounter Status : Acute (5) Risk for falls Code(s): Z91.81 - History of falling Status: Acute (6) Weakness Code(s): R53.1 - Weakness Status: Acute - Plan This is a 68-year-old male with a past medical history significant for diabetes mellitus and recent hospitalization for severe sepsis presents to the emergency room after his home health nurse called EMS because she was concerned that the patient was unable to care for himself. Urethral cutaneous fistula/persistent left inguinal wound Status post suprapubic catheter placement and multiple washouts and wound VAC placement of left groin Left inguinal wound draining purulent material, concern for active infection -Previously had irrigation and washout multiple times, wound was closed with aneta up to the area of the groin and scrotal junction small sponge on top of the left hemiscrotum with VAC placement, VAC was removed when EMS got the patient -Vancomycin/Zosyn after wound and blood cultures collected -Wound cx +Hafnia alvei and Morganella morganii, continue Ertapenem per ID recommendation -ID following, appreciate assistance -Urology following, appreciate assistance. -Suprapubic catheter changed 10/22, changed lainez in 1 month. -Wound care and daily dressing changes Urinary tract infection, catheter related infection Suprapubic cath in place -Urine culture positive for gram-negative rods -Cultures came back, Klebsiella pneumonia ESBL positive, zosyn and vanco discontinued, recommended ertapenem. -Repeat BC 10/24 no growth, UA infection resolving, UC not recommended. -Blood cultures no growth to date -Continue with ertapenem, end date 11/06 Diabetes mellitus, Type 2 -Sliding scale insulin, Metformin restart at lower dose 500mg BID, increase to 1000mg daily if tolerating -previous reports of diarrhea, patient states he has loose stools at times but it has been on going before since he has the colostomy. -Monitor blood glucose, NPH 70/30 12 units twice daily -Diabetic diet Physical deconditioning -Patient unable to care for himself at home -Case management consulted to assist with discharge planning, possible SNF -DCF following, pt. not a safe dc home as nephew not available all the time to help. Agreeable with SNF. Left lateral foot ankle ulceration -Previous excision/biopsy of wound with skin plasty left lateral ankle, ostectomy left lateral malleolus on 09/13, no signs of infx -Dr. Christiansen followed prior, may reconsult if needed -Weight bearing as tolerated to the left LE -Encouraged socks and footwear use Anemia, iron deficient -Continue ferrous sulfate -monitor CBC DVT proph: Lovenox Code Status: full code Discussed Condition With: patient and nurse (1) Non-healing open wound of left groin Qualifiers: Encounter type: initial encounter Qualified Code(s): S31.104A - Unspecified open wound of abdominal wall, left lower quadrant without penetration into peritoneal cavity, initial encounter
[2018-11-03] MEDS: Ferrous Sulfate 325 MG Tablet PO SCH ×2 (13:22→18:45)
[2018-11-04] MEDS: Insulin NovoLOG Aspart Correctional Sugar Inj SQ SCH ×6 (04:15→22:03)
[2018-11-04] MEDS: Enoxaparin Inj 40 MG/0.4 ML Syringe SQ SCH (10:16)
--- NOTE | 2018-11-04 10:52 | P.PNIM ---
Subjective Interval history: Follow-up for sepsis UTI catheter related, ureteral cutaneous fistula, persistent left inguinal wound, suprapubic catheter and hx DM2. Patient seen and examined sitting in the bed, eating breakfast without any difficulty. Patient stated had a good night sleep. Patient denies any pain or discomfort on the left groin. Patient states that he change his dressing at home. Patient denies any headache or dizziness, denies any abdominal pain, nausea, vomiting, diarrhea or constipation. Patient states that doing okay. Patient denies any fever or chills. Physical Exam Vital signs: Vital Signs 11/03/18 15:50 11/03/18 20:00 11/04/18 00:00 Temperature 98.4 F 98.1 F 98.1 F Pulse Rate 63 70 66 Respiratory Rate 20 20 20 Blood Pressure 110/57 L 106/52 L 119/57 L Pulse Oximetry 98 97 98 11/04/18 04:00 11/04/18 07:55 Temperature 97.7 F 97.7 F Pulse Rate 62 68 Respiratory Rate 20 20 Blood Pressure 116/59 L 104/59 L Pulse Oximetry 98 98 Intake & Output 11/03/18 11/04/18 11/04/18 18:59 06:59 18:59 Intake Total 100 / 100 Output Total 1150 / 1150 1050 / 1050 Balance -1150 / -1150 -950 / -950 Weight 84.567 kg Intake: IV 100 / 100 INVanz Inj 1,000 MG In NS Inj 100 / 100 100 ML @ 200 mls/hr IV.SIG Q24H [facility] Rx#:[id number] Output: Urine 1050 / 1050 Urine Amount (Catheter) 1150 / 1150 Suprapubic 1150 / 1150 Other: Date of Last Bowel Movement 11/02/18 11/02/18 Narrative: GENERAL: Well-developed, well-nourished, male in no apparent distress SKIN: Warm and dry. Left groin area large wound, packing in place, purulent with serosanguineous drainage noted drainage noted HEAD: Atraumatic. Normocephalic. EYES: Pupils equal and round. No scleral icterus. No injection or drainage. ENT: No nasal bleeding or discharge. Mucous membranes pink and moist. NECK: Trachea midline. No JVD. CARDIOVASCULAR: Regular rate and rhythm. RESPIRATORY: No accessory muscle use. Clear to auscultation. Breath sounds equal bilaterally. GASTROINTESTINAL: Abdomen soft, non-tender, nondistended. Hepatic and splenic margins not palpable. Ostomy in place with soft stool : Suprapubic catheter in place with yellow urine MUSCULOSKELETAL: Extremities without clubbing, cyanosis, or edema. No obvious deformities. NEUROLOGICAL: Awake and alert. No obvious cranial nerve deficits. Motor grossly within normal limits. Generalized weakness moving all 4 extremities normal speech. PSYCHIATRIC: Appropriate mood and affect; insight and judgment poor. - Urinary Catheter Management Suprapubic Cath placed during this visit: yes Reason for continuing: Chronic Urinary Retention Insertion date: 10/13/18 Insertion time: 20:13 Results - Labs CBC & Chem 7: 11/02/18 07:35 11/02/18 07:35 Laboratory Results - last 24 hr 11/03/18 11/03/18 11/03/18 13:01 17:11 20:06 POC Glucose 117 H 116 H 131 H 11/04/18 11/04/18 03:45 08:00 POC Glucose 106 101 Assessment and Plan - Assessment (1) Non-healing open wound of left groin Code(s): S31.104A - Unspecified open wound of abdominal wall, left lower quadrant without penetration into peritoneal cavity, initial encounter Status : Acute (2) Physical deconditioning Code(s): R53.81 - Other malaise Status: Acute (3) Gait instability Code(s): R26.81 - Unsteadiness on feet Status: Acute (4) Open wound of groin Code(s): S31.109A - Unspecified open wound of abdominal wall, unspecified quadrant without penetration into peritoneal cavity, initial encounter Status : Acute (5) Risk for falls Code(s): Z91.81 - History of falling Status: Acute (6) Weakness Code(s): R53.1 - Weakness Status: Acute - Plan This is a 68-year-old male with a past medical history significant for diabetes mellitus and recent hospitalization for severe sepsis presents to the emergency room after his home health nurse called EMS because she was concerned that the patient was unable to care for himself. Urethral cutaneous fistula/persistent left inguinal wound Status post suprapubic catheter placement and multiple washouts and wound VAC placement of left groin Left inguinal wound draining purulent material, concern for active infection -Previously had irrigation and washout multiple times, wound was closed with aneta up to the area of the groin and scrotal junction small sponge on top of the left hemiscrotum with VAC placement, VAC was removed when EMS got the patient -Vancomycin/Zosyn after wound and blood cultures collected -Wound cx +Hafnia alvei and Morganella morganii, finished dose Ertapenem -ID following, appreciate assistance -Urology following, appreciate assistance. -Suprapubic catheter changed 10/22, changed lainez in 1 month. -Wound care and daily dressing changes Urinary tract infection, catheter related infection Suprapubic cath in place -Urine culture positive for gram-negative rods -Cultures came back, Klebsiella pneumonia ESBL positive, zosyn and vanco discontinued, recommended ertapenem. -Repeat BC 10/24 no growth, UA infection resolving, UC not recommended. -Blood cultures no growth to date -finished dose of ertapenem 11/04/18 Diabetes mellitus, Type 2 -Sliding scale insulin, Metformin restart at lower dose 500mg BID, increase to 1000mg daily if tolerating -previous reports of diarrhea, patient states he has loose stools at times but it has been on going before since he has the colostomy. -Monitor blood glucose, NPH 70/30 12 units twice daily -Diabetic diet Physical deconditioning -Patient unable to care for himself at home -Case management consulted to assist with discharge planning, possible SNF -DCF following, pt. not a safe dc home as nephew not available all the time to help. Agreeable with SNF. Left lateral foot ankle ulceration -Previous excision/biopsy of wound with skin plasty left lateral ankle, ostectomy left lateral malleolus on 09/13, no signs of infx -Dr. Christiansen followed prior, may reconsult if needed -Weight bearing as tolerated to the left LE -Encouraged socks and footwear use Anemia, iron deficient -Continue ferrous sulfate -monitor CBC DVT proph: Lovenox Code Status: full code Discussed Condition With: patient and nurse Discharge Planning: Discharge to SNF when placement available (1) Non-healing open wound of left groin Qualifiers: Encounter type: initial encounter Qualified Code(s): S31.104A - Unspecified open wound of abdominal wall, left lower quadrant without penetration into peritoneal cavity, initial encounter
[2018-11-04] MEDS: Ferrous Sulfate 325 MG Tablet PO SCH ×2 (12:30→18:26)
[2018-11-05] MEDS: Insulin NovoLOG Aspart Correctional Sugar Inj SQ SCH ×3 (04:04→16:16)
[2018-11-05 07:02] LABS: Baso # (Auto) 0.1 th/mm3 (0.0-0.2); Baso % (Auto) 0.6 % (0.0-2.0); Eos # (Auto) 0.4 th/mm3 (0.0-0.4); Eos % (Auto) 3.7 % (0.0-4.0); Hematocrit 35.2 % (39.0-51.0); Lymph # (Auto) 2.4 th/mm3 (1.0-4.8); Lymph % (Auto) 25.3 % (9.0-44.0); Mean Corpuscular HGB Conc 34.2 % (32.0-36.0); Mean Corpuscular Volume 90.6 fL (80.0-100.0); Mean Platelet Volume 8.2 fL (7.0-11.0); Mono # (Auto) 0.7 th/mm3 (0.0-0.9); Mono % (Auto) 7.3 % (0.0-8.0); Neut % (Auto) 63.1 % (16.0-70.0); Platelet Count 230 th/mm3 (150-450); Red Blood Count 3.88 mil/mm3 (4.50-5.90); Red Cell Distribution Width 15.9 % (11.6-17.2); White Blood Count 9.6 th/mm3 (4.0-11.0)
[2018-11-05 07:35] LABS: Calcium 8.5 mg/dL (8.5-10.1); Carbon Dioxide 27.8 meq/L (21.0-32.0); Potassium 3.9 meq/L (3.5-5.1)
[2018-11-05 08:54] VITALS: RESP 20
[2018-11-05] MEDS: Enoxaparin Inj 40 MG/0.4 ML Syringe SQ SCH (09:36)
[2018-11-05] MEDS: Ferrous Sulfate 325 MG Tablet PO SCH (12:30)
--- NOTE | 2018-11-05 12:39 | P.PNIM ---
Subjective Interval history: Follow-up for sepsis, urethral continuous fistula, persistent left inguinal wound, UTI catheter related with suprapubic catheter and history of diabetes mellitus type 2. Patient seen and examined laying in bed, patient denies any pain or discomfort on the left groin or anywhere. Patient stated he lives alone and is agreeable waiting for placement at a nursing facility. Patient denies any headache or dizziness, denies any fever or chills. Patient denies any chest pain or shortness of breath, denies abdominal pain, nausea, vomiting, diarrhea or constipation. Patient denies any fever or chills. Nurse denies any acute issues overnight. Physical Exam Vital signs: Last Vital Signs Temp 97.5 F L 11/05/18 08:00 Pulse 61 11/05/18 08:00 Resp 20 11/05/18 08:00 BP 107/56 L 11/05/18 08:00 Pulse Ox 98 11/05/18 08:00 Intake & Output 11/03/18 11/04/18 11/05/18 11/06/18 06:59 06:59 06:59 06:59 Intake Total 100 / 100 100 / 100 Output Total 600 / 600 2200 / 2200 700 / 700 Balance -500 / -500 -2100 / -2100 -700 / -700 Weight 186 kg 84.567 kg 84.2 kg Narrative: GENERAL: Well-developed, well-nourished, male in no apparent distress SKIN: Warm and dry. Left groin area large wound, deep area on distal end, packing in place, with pink wound bed. Purulent with serosanguineous drainage noted drainage noted HEAD: Atraumatic. Normocephalic. EYES: Pupils equal and round. No scleral icterus. No injection or drainage. ENT: No nasal bleeding or discharge. Mucous membranes pink and moist. NECK: Trachea midline. No JVD. CARDIOVASCULAR: Regular rate and rhythm. RESPIRATORY: No accessory muscle use. Clear to auscultation. Breath sounds equal bilaterally. GASTROINTESTINAL: Abdomen soft, non-tender, nondistended. Hepatic and splenic margins not palpable. Ostomy in place with soft stool : Suprapubic catheter in place with yellow urine MUSCULOSKELETAL: Extremities without clubbing, cyanosis, or edema. No obvious deformities. NEUROLOGICAL: Awake and alert. No obvious cranial nerve deficits. Motor grossly within normal limits. Generalized weakness moving all 4 extremities normal speech. PSYCHIATRIC: Appropriate mood and affect; insight and judgment poor. Urinary Catheter Management Suprapubic: Cath placed during this visit: yes Urethral indwelling: No Insertion date: 10/13/18 Insertion time: 20:13 Results Labs CBC & Chem 7: 11/05/18 05:15 11/05/18 05:15 Assessment and Plan (1) Non-healing open wound of left groin: Code(s): S31.104A - Unspecified open wound of abdominal wall, left lower quadrant without penetration into peritoneal cavity, initial encounter Status: Acute (2) Physical deconditioning: Code(s): R53.81 - Other malaise Status: Acute (3) Gait instability: Code(s): R26.81 - Unsteadiness on feet Status: Acute (4) Open wound of groin: Code(s): S31.109A - Unspecified open wound of abdominal wall, unspecified quadrant without penetration into peritoneal cavity, initial encounter Status: Acute (5) Risk for falls: Code(s): Z91.81 - History of falling Status: Acute (6) Weakness: Code(s): R53.1 - Weakness Status: Acute Plan This is a 68-year-old male with a past medical history significant for diabetes mellitus and recent hospitalization for severe sepsis presents to the emergency room after his home health nurse called EMS because she was concerned that the patient was unable to care for himself. Left inguinal wound, persistent, non healing Urethral cutaneous fistulas/p tube Status post suprapubic catheter placement and multiple washouts and wound VAC placement of left groin Left inguinal wound draining purulent material, concern for active infection -Previously had irrigation and washout multiple times, wound was closed with aneta up to the area of the groin and scrotal junction small sponge on top of the left hemiscrotum with VAC placement, VAC was removed when EMS got the patient -Vancomycin/Zosyn after wound and blood cultures collected -Wound cx +Hafnia alvei and Morganella morganii, finished dose Ertapenem -ID following, appreciate assistance -Urology following, Dr Cassidy, appreciate assistance. -Suprapubic catheter changed 10/22, changed lainez in 1 month. -Wound care and daily dressing changes -left groin wound, deep on distal area with packing, wound bed pink, drainage improving Urinary tract infection, catheter related infection Suprapubic cath in place -Urine culture positive for gram-negative rods -Cultures came back, Klebsiella pneumonia ESBL positive, zosyn and vanco discontinued, recommended ertapenem. -Repeat BC 10/24 no growth, UA infection resolving, UC not recommended. -Blood cultures no growth to date -finished dose of ertapenem 11/04/18 Diabetes mellitus, Type 2 -Blood sugar fair controlled -Sliding scale insulin, Metformin restart at lower dose 500mg BID, increase to 1000mg daily if tolerating -previous reports of diarrhea, patient states he has loose stools at times but it has been on going before since he has the colostomy. -Monitor blood glucose, NPH 70/30 12 units twice daily -Diabetic diet - check HgbA1c Physical deconditioning -Patient unable to care for himself at home -Case management consulted to assist with discharge planning, possible SNF -DCF following, pt. not a safe dc home as nephew not available all the time to help. Agreeable with SNF. Left lateral foot ankle ulceration -Previous excision/biopsy of wound with skin plasty left lateral ankle, ostectomy left lateral malleolus on 09/13, no signs of infx -Dr. Christiansen followed prior, may reconsult if needed -Weight bearing as tolerated to the left LE -Encouraged socks and footwear use Anemia, iron deficient -Continue ferrous sulfate -monitor CBC DVT proph: Lovenox Discharge Planning: Discharge to SNF when placement available Progress Note: Quality VTE Deep Vein Thrombosis/Pulmonary Embolism Present on Admission: No _ (1) Open wound of groin Qualifiers: Encounter type: (2) Non-healing open wound of left groin Qualifiers: Encounter type: initial encounter Qualified Code(s): S31.104A - Unspecified open wound of abdominal wall, left lower quadrant without penetration into peritoneal cavity, initial encounter
[2018-11-05 13:34] VITALS: O2SAT 99
--- NOTE | 2018-11-05 16:26 | P.DS ---
DS: Providers Date of admission: 10/13/18 19:43 Follow-up for sepsis, urethral continuous fistula, persistent left inguinal wound, UTI catheter related with suprapubic catheter and history of diabetes mellitus type 2. Patient seen and examined laying in bed, patient denies any pain or discomfort on the left groin or anywhere. Patient stated he lives alone and is agreeable waiting for placement at a nursing facility. Patient denies any headache or dizziness, denies any fever or chills. Patient denies any chest pain or shortness of breath, denies abdominal pain, nausea, vomiting, diarrhea or constipation. Patient denies any fever or chills. Nurse denies any acute issues overnight. Primary care physician: No Primary Care Physician Consults: 10/13/18 15:36 Consult to Psychiatry Stat Consulting Provider: Og Ryder For STAT consult, spoke directly to:: Meño Reason for Consultation: evaluation for capacity/competency Spoke with:: JUSTINE Date Notified:: 10/13/18 Time Notified:: 15:51 Ordering Provider: HUMBERTO 10/13/18 21:52 Consult to Urology Routine Consulting Provider: José Miguel Herrera Preferred Hand Crown Pouncer:: Norbert Cassidy Patient known to:: Norbert Cassidy Reason for Consultation: h/o urethral cutaneous fistula with L groin wound Notified:: Service Spoke with:: Maura Date Notified:: 10/13/18 Time Notified:: 22:31 Comments:: Pt known to Dr. Cassidy. Dr. Herrera is vice president of operations. Ordering Provider: [id number] 10/14/18 11:36 Consult to Infectious Diseases Routine Consulting Provider: Yaquelin Escalera Reason for Consultation: UTI Klebsiella ESBL, MDRO Notified:: Service Spoke with:: Jarrett Date Notified:: 10/14/18 Time Notified:: 11:39 Ordering Provider: ANA PAULA 10/14/18 12:43 Consult to Infectious Diseases Routine Consulting Provider: Kajal Coppola Preferred Hand Crown Pouncer:: Kajal Coppola Patient known to:: Kajal Coppola Reason for Consultation: uti, recurrent now with esbl Notified:: Service Spoke with:: Kortney Date Notified:: 10/14/18 Time Notified:: 12:50 Ordering Provider: MARA 10/18/18 16:41 Consult to Urology Routine Consulting Provider: Norbert Cassidy Preferred Hand Crown Pouncer:: Norbert Cassidy Patient known to:: Norbert Cassidy Reason for Consultation: hx of urethral cutaneous fistula, left groin wound, s/p mulitple washouts and wound vac placement Notified:: Service Spoke with:: DIANA Date Notified:: 10/18/18 Time Notified:: 16:58 Comments:: Please consult in the am Ordering Provider: ANAND 10/22/18 17:02 HUB Only Consult Order [facility]ine [facility] 10/22/18 17:03 HUB Only Consult Order Routine Consulting Provider: Sue Ann,Agency 10/24/18 09:42 Consult to Infectious Diseases Routine Consulting Provider: Kajal Coppola Preferred Hand Crown Pouncer:: Kajal Coppola Reason for Consultation: recurrent fever, ESBL Notified:: Service Spoke with:: JOI Date Notified:: 10/24/18 Time Notified:: 09:45 Ordering Provider: CLIFF Brief History from admission: 68-year-old male with a past medical history significant for diabetes mellitus and recent hospitalization for severe sepsis presents to the emergency room after his home health nurse called EMS because she was concerned that the patient was unable to care for himself. ED documentation states that the patient was unable to walk secondary to weakness and sat on his porch for 4 days until he was brought to the emergency room. He has not taken any medications since his discharge as he has been unable to fill it secondary to insurance issues. The patient adamantly denies that this was the case and states he was able to ambulate with the assistance of his nephew who lives with him. He states that his home health nurse was lying. The patient was covered in feces and dirt on his arrival to the emergency department. During his previous hospitalization, the patient underwent excision/biopsy of wound of the left ankle and ostectomy of the left lateral medial list performed by podiatry. 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 On , patient underwent cystogram, flexible cystoscopy, antegrade urethrogram, placement of suprapubic tube catheter, irrigation and packing of left inguinal wound. The wound of the left groin was then treated with serial washout and debridements of the left inguinal abscess and wound VAC changes. He grew blood cultures for Corynebacterium and was seen in consultation by infectious disease who felt this was most likely contamination. The patient was treated with Zosyn and fluconazole. He improved clinically and was discharged home with home health care and home PT. Rehab was recommended however the patient refused. On further evaluation, the patient has a left groin wound that is open and draining a foul-smelling purulent liquid. He reports his wound VAC was taken off by EMS prior to him being brought to the emergency department. The patient is an extremely poor historian. DS: Diagnosis Discharge Diagnosis (1) Non-healing open wound of left groin: Status: Acute (2) Physical deconditioning: Status: Acute (3) Gait instability: Status: Acute (4) Open wound of groin: Status: Acute (5) Risk for falls: Status: Acute (6) Weakness: Status: Acute DS: Summary This is a 68-year-old male with a past medical history significant for diabetes mellitus and recent hospitalization for severe sepsis presents to the emergency room after his home health nurse called EMS because she was concerned that the patient was unable to care for himself. Patient was admitted for medical management of Left inguinal wound, persistent, non healing, Urethral cutaneous fistulas/p tube, Status post suprapubic catheter placement and multiple washouts and wound VAC placement of left groin Left inguinal wound draining purulent material, concern for active infection.Previously had irrigation and washout multiple times, wound was closed with aneta up to the area of the groin and scrotal junction small sponge on top of the left hemiscrotum with VAC placement, VAC was removed when EMS got the patient. Status post IV antibiotic treatment with Vancomycin/Zosyn after wound and blood cultures collected. Wound cx +Hafnia alvei and Morganella morganii, finished dose Ertapenem 11/04/18. Suprapubic catheter changed 10/22, changed lainez in 1 month. Wound care and daily dressing changes. left groin wound, deep on distal area with packing, wound bed pink, drainage improving. Patient was also managed for urinary tract infection, catheter related infection , Suprapubic cath in place.-Urine culture positive for gram-negative rods, Klebsiella pneumonia ESBL positive, zosyn and vanco discontinued, recommended ertapenem. Repeat BC 10/24 no growth, UA infection resolving, UC not recommended.Blood cultures no growth to date. Finished dose of ertapenem on 11/10 Patient also had a history of diabetes mellitus, Type 2, Blood sugar fair controlled. Continue Sliding scale insulin, Metformin restart at lower dose 500mg BID, increase to 1000mg daily if tolerating. And continue NPH units twice a day. Patient is stable and may be discharged to [facility]. Time Spent with Patient Total time spent providing and/or coordinating discharge services: This is a 68-year-old male with a past medical history significant for diabetes mellitus and recent hospitalization for severe sepsis presents to the emergency room after his home health nurse called EMS because she was concerned that the patient was unable to care for himself. Patient was admitted for medical management of Left inguinal wound, persistent, non healing, Urethral cutaneous fistulas/p tube, Status post suprapubic catheter placement and multiple washouts and wound VAC placement of left groin Left inguinal wound draining purulent material, concern for active infection.Previously had irrigation and washout multiple times, wound was closed with aneta up to the area of the groin and scrotal junction small sponge on top of the left hemiscrotum with VAC placement, VAC was removed when EMS got the patient. Status post IV antibiotic treatment with Vancomycin/Zosyn after wound and blood cultures collected. Wound cx +Hafnia alvei and Morganella morganii, finished dose Ertapenem 11/04/18. Suprapubic catheter changed 10/22, changed lainez in 1 month. Wound care and daily dressing changes. left groin wound, deep on distal area with packing, wound bed pink, drainage improving. Patient was also managed for urinary tract infection, catheter related infection , Suprapubic cath in place.-Urine culture positive for gram-negative rods, Klebsiella pneumonia ESBL positive, zosyn and vanco discontinued, recommended ertapenem. Repeat BC 10/24 no growth, UA infection resolving, UC not recommended.Blood cultures no growth to date. Finished dose of ertapenem on 11/10 Patient also had a history of diabetes mellitus, Type 2, Blood sugar fair controlled. Continue Sliding scale insulin, Metformin restart at lower dose 500mg BID, increase to 1000mg daily if tolerating. And continue NPH units twice a day. Patient is stable and may be discharged to [facility]. Quality: VTE Deep Vein Thrombosis/Pulmonary Embolism Present on Admission: No Exam Narrative Exam Narrative: GENERAL: Well-developed, well-nourished, male in no apparent distress SKIN: Warm and dry. Left groin area large wound, deep area on distal end, packing in place, with pink wound bed. Purulent with serosanguineous drainage noted drainage noted HEAD: Atraumatic. Normocephalic. EYES: Pupils equal and round. No scleral icterus. No injection or drainage. ENT: No nasal bleeding or discharge. Mucous membranes pink and moist. NECK: Trachea midline. No JVD. CARDIOVASCULAR: Regular rate and rhythm. RESPIRATORY: No accessory muscle use. Clear to auscultation. Breath sounds equal bilaterally. GASTROINTESTINAL: Abdomen soft, non-tender, nondistended. Hepatic and splenic margins not palpable. Ostomy in place with soft stool : Suprapubic catheter in place with yellow urine MUSCULOSKELETAL: Extremities without clubbing, cyanosis, or edema. No obvious deformities. NEUROLOGICAL: Awake and alert. No obvious cranial nerve deficits. Motor grossly within normal limits. Generalized weakness moving all 4 extremities normal speech. PSYCHIATRIC: Appropriate mood and affect; insight and judgment poor. Results Labs on day of discharge: Labs from last 24 hours 11/05/18 11/05/18 11/05/18 12:59 07:42 05:15 WBC RBC Hgb Hct MCV MCH MCHC RDW Plt Count MPV Neut % (Auto) Lymph % (Auto) [place] % (Auto) Eos % (Auto) Baso % (Auto) Neut # (Auto) Lymph # (Auto) [place] # (Auto) Eos # (Auto) Baso # (Auto) WBC Differential Differential Comment Sodium Potassium Chloride Carbon Dioxide Anion Gap BUN Creatinine Estimated GFR POC Glucose 121 H 137 H Random Glucose Hemoglobin A1c Pending Calcium 11/05/18 11/05/18 11/05/18 05:15 05:15 04:02 WBC 9.6 RBC 3.88 L Hgb 12.0 L Hct 35.2 L MCV 90.6 MCH 31.0 MCHC 34.2 RDW 15.9 Plt Count 230 MPV 8.2 Neut % (Auto) 63.1 Lymph % (Auto) 25.3 [place] % (Auto) 7.3 Eos % (Auto) 3.7 Baso % (Auto) 0.6 Neut # (Auto) 6.0 Lymph # (Auto) 2.4 [place] # (Auto) 0.7 Eos # (Auto) 0.4 Baso # (Auto) 0.1 WBC Differential . Differential Comment Auto diff final Sodium 143 Potassium 3.9 Chloride 108 H Carbon Dioxide 27.8 Anion Gap 7 BUN 31 H Creatinine 0.87 Estimated GFR 87 L POC Glucose 137 H Random Glucose 112 H Hemoglobin A1c Calcium 8.5 11/04/18 11/04/18 22:03 17:22 WBC RBC Hgb Hct MCV MCH MCHC RDW Plt Count MPV Neut % (Auto) Lymph % (Auto) [place] % (Auto) Eos % (Auto) Baso % (Auto) Neut # (Auto) Lymph # (Auto) [place] # (Auto) Eos # (Auto) Baso # (Auto) WBC Differential Differential Comment Sodium Potassium Chloride Carbon Dioxide Anion Gap BUN Creatinine Estimated GFR POC Glucose 139 H 161 H Random Glucose Hemoglobin A1c Calcium Impressions ITS Impressions Chest X-Ray 10/24/18 10:12 CONCLUSION: No acute intrathoracic disease. Stable examination. Discharge Plan Discharge Disposition Patient Disposition: Discharge to SNF Discharge Condition Condition: Stable Discharge Order Discharge Orders: Discharge Order (Routine); Ordered 11/05/18 Ordered By: Vanessa Patel Urology Clear for Discharge (Routine); Ordered 11/05/18 Ordered By: Vanessa Patel Discharge Details Anticipated Discharge Date: 11/05/18 Discharge Comment: Follow-up with urologist as an outpatient, Dr. Cassidy Physicians Team ED Provider: Mariely Estrada Primary Care Provider: Primary Pricilla De Oliveira Attending Provider: Kathie Cuevas Other Providers: Og Ryder ; José Miguel Herrera ; Yaquelin Escalera ; Kajal Coppola ; Norbert Cassidy ; [facility] ; [facility] Rxs /Orders / Referrals /Forms Prescriptions: New sennosides-docusate sodium [Senna Plus] 8.6-50 mg Tablet 1 tab PO BID RF: 0 metformin [Glucophage] 500 mg Tablet 500 mg PO BIDPC Qty: 60 RF: 0 insulin NPH and regular human [Novolin 70/30 U-100 Insulin] 100 unit/mL (70-30 ) Suspension 12 units subcut BID@0800,1700 Qty: 100 RF: 0 Referrals: Primary Care Pricilla Posey [Primary Care Provider] - See Instructions (Follow up in 3-5 Days. Schedule an appointment.) Norbert Cassidy DO [UROLOGY] - See Instructions (Follow up in 7-10 Days. Schedule an appointment. ) Post Discharge Care Plan Care Plan Goals: Your Health Problems: Goals to Promote Your Health: * To prevent worsening of your condition * To maintain your health at the optimal level Directions to Meet Your Goals: * Take your medications as prescribed * Follow your dietary instruction * Follow activity as directed * Keep your appointments as scheduled * Take your immunizations and boosters as scheduled * If your symptoms worsen call your PCP * If no PCP go to Urgent Care or Emergency Room Smoking is dangerous to your health. Avoid second hand smoke. You may reach the 24-hour crisis hotline for domestic abuse at . Status ED Status: Left Department
[2018-11-05 16:48] VITALS: BP 110/63; PULSE 76; TEMP 97.8
[2018-11-05 21:51] LABS: Hemoglobin A1c 5.8 % (4.3-6.0)
== END 2018-11-05 19:03 ==
LOC: NEPE 16:38 → NEDA 10-13 19:43 → N05 10-13 21:37
PROVIDERS: ADMIT Hospitalist; ATTEND Hospitalist
DX: Z16.24 Resistance to multiple antibiotics; Z16.12 Extended spectrum beta lactamase (ESBL) resistance; K59.39 Other megacolon; L89.159 Pressure ulcer of sacral region, unspecified stage; Z90.49 Acquired absence of other specified parts of digestive tract; D50.9 Iron deficiency anemia, unspecified; Z93.3 Colostomy status; Z88.7 Allergy status to serum and vaccine; Z93.50 Unspecified cystostomy status; B96.1 Klebsiella pneumoniae [K. pneumoniae] as the cause of diseases classified elsewhere; M86.9 Osteomyelitis, unspecified; S31.104A Unspecified open wound of abdominal wall, left lower quadrant without penetration into peritoneal cavity, initial encounter; A41.59 Other Gram-negative sepsis; L89.529 Pressure ulcer of left ankle, unspecified stage; R19.7 Diarrhea, unspecified; R26.81 Unsteadiness on feet; L97.309 Non-pressure chronic ulcer of unspecified ankle with unspecified severity; B96.20 Unspecified Escherichia coli [E. coli] as the cause of diseases classified elsewhere; R53.81 Other malaise; I10 Essential (primary) hypertension; T83.518A Infection and inflammatory reaction due to other urinary catheter, initial encounter; N36.0 Urethral fistula; R53.1 Weakness; Z83.3 Family history of diabetes mellitus; I48.91 Unspecified atrial fibrillation; E11.621 Type 2 diabetes mellitus with foot ulcer; Y84.6 Urinary catheterization as the cause of abnormal reaction of the patient, or of later complication, without mention of misadventure at the time of the procedure; L02.214 Cutaneous abscess of groin; T81.30XA Disruption of wound, unspecified, initial encounter; N39.0 Urinary tract infection, site not specified; E11.69 Type 2 diabetes mellitus with other specified complication